=== PATIENT | female | born 1985 | race Caucasian/White ===

== ENCOUNTER → 2018-01-13 13:14 | Outpatient (CLI) | payer MEDICARE, SELFPAY ==
[2017-12-29 16:06] VITALS: BP 113/81
[2017-12-29 16:10] VITALS: BMI 40.8
--- NOTE | 2018-01-13 13:23 | MRI_ITS ---
STUDY: MRI ORBITS WITH AND WITHOUT CONTRAST REASON FOR EXAM: Female, 32 years old. Abcess behind left ear, history of ITD for cyst in that area on December 02, 2017 TECHNIQUE: Standardized fat and water weighted pulse sequences were obtained in all 3 orthogonal planes, pre-and post contrast administration. 10 ml of Gadavist contrast material was administered intravenously for the contrast portion of the examination. COMPARISON: None. FINDINGS: There is a skin lesion inferior and slightly posterior to the left ear measures approximately 1.5 x 1.4 cm shows increased signal on T2-weighted images and mild enhancement after contrast administration may represent a first brachial cleft sinus or sebaceous cyst. This lesion extends to the surface of the sternocleidomastoid muscle. The adjacent part of the parotid gland shows no abnormality. There is no significant enlargement of the cervical lymph nodes. Normal bilateral globes. Normal bilateral optic nerve sheath complexes and optic nerves. Normal bilateral intraconal and extraconal spaces. Normal bilateral extraocular muscles. Normal optic chiasm and post-chiasmatic tracts. Normal sella turcica, pituitary gland, infundibular stalk, and hypothalamus. Normal bilateral cavernous sinuses. Normal tectal plate and pineal gland. Normal flow voids within the major intracranial circulation suggesting patency by spin echo criteria. Normal size of the ventricles and extra-axial spaces for the patient's age. Normal white matter tracts of the supratentorial brain. Normal bilateral basal ganglia. Normal thalami. There is no extra-axial fluid accumulation. Normal midbrain, dana and medulla. Normal cerebellum. Normal basal cisterns. MRI/Orbit Face Neck W/WO Contrast IMPRESSION: There is a skin lesion inferior and slightly posterior to the left ear measures approximately 1.5 x 1.4 cm shows increased signal on T2-weighted images and mild enhancement after contrast administration may represent a first brachial cleft sinus or a sebaceous cyst. Electronically Signed: Osvaldo Paez MD at 7:56 EST Tel , Service support ,
== END ==
PROVIDERS: Family Provider Family Medicine; PCP Family Medicine; Visit Provider Surgery
DX: L02.11 Cutaneous abscess of neck (principal); S01.90XA Unspecified open wound of unspecified part of head, initial encounter; S11.90XA Unspecified open wound of unspecified part of neck, initial encounter
CPT/HCPCS: 70543; A9585

== ENCOUNTER 2018-01-16 12:01 | Emergency (ER) | payer MEDICARE, SELFPAY ==
[2018-01-16 12:02] VITALS: BP 145/101; PULSE 118; RESP 17; TEMP 35.7; O2SAT 99; BMI 40.7
[2018-01-16 12:18] VITALS: PULSE 104; RESP 12; O2SAT 99
[2018-01-16 12:22] VITALS: RESP 12; O2SAT 99
--- NOTE | 2018-01-16 12:30 | RAD_ITS ---
STUDY: X-RAY CHEST REASON FOR EXAM: Female, 32 years old. Elevated blood sugar levels. TECHNIQUE: Single AP portable view of the chest. COMPARISON: Comparison is made with prior study dated February 18, 2016. FINDINGS: EKG liquids are seen. The lungs are clear and expanded. There is no demonstrated pleural abnormality. Normal size heart. Normal mediastinum and true. Normal visualized pulmonary arteries. Normal visualized aortic arch and descending thoracic aorta. Normal visualized thoracic spine. Normal visualized ribs, clavicles, and shoulders. There is no demonstrated abnormality of the visualized soft tissue structures of the upper abdomen. RAD/Chest 1 View (Portable) IMPRESSION: Normal x-ray examination of the chest. Electronically Signed: Solis Martinez MD at 13:02 EST Tel [phone], Service support ,
--- NOTE | 2018-01-16 12:30 | EKG12_ITS ---
Test Reason : Blood Pressure : / mmHG Vent. Rate : 103 BPM Atrial Rate : 103 BPM P-R Int : 158 ms QRS Dur : 076 ms QT Int : 338 ms P-R-T Axes : 065 082 056 degrees QTc Int : 442 ms Sinus tachycardia Nonspecific ST abnormality Abnormal ECG Confirmed by JOSE DANIEL MARTE, JAZZY ([id number]), editorial intern FELISHA ARMSTRONG ([id number]) on 01/18/2018 1:57:58 PM Referred By: Phoenix Boswell Confirmed By:JAZZY SKY MD
--- NOTE | 2018-01-16 12:38 | CT_ITS ---
STUDY: CT BRAIN WITHOUT CONTRAST REASON FOR EXAM: Female, 32 years old. Headaches. Blurred vision. RADIATION DOSAGE (If Supplied By Facility): CTDIvol = ( 44.99 ) mGy, DLP = ( 779.24 ) mGycm TECHNIQUE: Transaxial CT imaging of the brain was performed without administration of intravenous contrast material. Individualized dose optimization techniques were used for this CT. COMPARISON: Comparison is made with prior study dated June 11, 2015. FINDINGS: Normal soft tissue structures. Normal calvarium. Normal size ventricles and extra-axial spaces for the patient's age. Normal white matter tracts of the cerebral hemispheres. Normal basal ganglia and thalami. Normal brainstem. Normal cerebellum. There is no intracranial hemorrhage. There are no findings of an acute ischemic infarction. Normal visualized paranasal sinuses. CT/Brain/Head without Contrast IMPRESSION: Normal unenhanced CT scan of the brain. Electronically Signed: Solis Martinez MD at 14:22 EST Tel [phone], Service support ,
--- NOTE | 2018-01-16 12:45 | ED.RN ---
IV therapy at bedside.
[2018-01-16 12:49] LABS: Bacteria 0 SEEN /hpf (None Seen); Mucous, Urine 0 SEEN /hpf (<or=2+); Red Blood Cells-Urine 0 SEEN /hpf (0-5); White Blood Cells 0 SEEN /hpf (0-5)
[2018-01-16 12:50] LABS: Color, Urine Yellow (Yellow); Glucose, Dipstick 1000 mg/dl (Normal); Ketone-Dipstick Negative (Negative); Leukocyte Esterase-Dipstick Negative /ul (Negative); Nitrite-Dipstick Negative (Negative); Occult Blood-Urine Negative /ul (Negative); Protein-Dipstick Negative (Negative); Specific Gravity, Urine 1.005 (1.002-1.030); Urine Bilirubin Dipstick Negative (Negative); Urine Clarity Clear (Clear); Urine Urobilinogen Normal (Normal)
[2018-01-16 12:58] LABS: Squamous Epithelial Cells - UA 0-5 SEEN /hpf (5-10)
[2018-01-16] MEDS: 0.9% Normal Saline 1,000 ML 1000 ML IV ×2 (13:43)
[2018-01-16] MEDS: Ondansetron 4 MG/2 ML Vial IV (13:43)
[2018-01-16 13:48] LABS: Absolute Lymphocyte Count 4.24 X10^3/ul (0.83-4.51); Absolute Neutrophil Count 7.2 X10^3/uL (2.0-7.7); Basophil# 0.07 X10^3/uL; Basophil% 0.6 % (0-1); Eosinophil# 0.18 X10^3/uL; Eosinophils% 1.4 % (0-5); Hematocrit 38.3 % (37-47); Hemoglobin 12.2 g/dl (12.0-15.0); Lymphocyte # 4.24 X10^3/ul (4.0); Mean Corp Hgb Conc 31.9 g/gl (32-36); Mean Corpuscular Hgb 29.6 pg (27.0-32.0); Mean Platelet Vol. 10.2 fl (6.2-12.0); Monocyte# 0.74 X10^3/uL; Monocyte% 5.9 % (0-10); Neutrophil # 7.19 X10^3/uL (2.7-7.7); Neutrophil % 57.7 % (47-70); Platelet Count 285 K/mm3 (150-450); RBC Distribution Width CV 14.9 % (11.6-14.6); RBC Distribution Width SD 50.6 fl (35.1-43.9); Red Blood Count 4.12 M/mm3 (4.2-5.4); White Blood Count 12.5 K/mm3 (4.4-11.0)
[2018-01-16 13:49] LABS: POSITIVE COUNT NO; POSITIVE DIFFERENTIAL NO; POSITIVE MORPHOLOGY NO
[2018-01-16 14:13] LABS: Anion Gap 11 (5-15); BUN 7 mg/dL (7-18); BUN/Creat Ratio 7.3 RATIO (10-20); Chloride 96 mmol/L (98-107); Creatinine, Serum 0.95 mg/dL (0.55-1.02); EST Glomerular Filtration Rate 72 mL/min (>60); Est Glom Filt Rate - Afr Amer 87 mL/min (>60); Estimated Creatinine Clearance 75.79 ml/min; Glucose 404 mg/dL (74-106); Potassium 4.4 mmol/L (3.5-5.1); Sodium Level 132 mmol/L (136-145)
[2018-01-16 14:14] LABS: Pregnancy, Serum, hCG Quali. NEGATIVE Negative (0-9 Nonpreg)
[2018-01-16 14:21] VITALS: BP 116/73; PULSE 90; RESP 16; O2SAT 97
[2018-01-16] MEDS: Acetaminophen 500 MG Tablet 1000 MG PO (14:27)
--- NOTE | 2018-01-16 15:18 | ED.VISSUMM ---
- ER Visit Summary Date of Service: 01/16/18 Chief Complaint: High blood sugar History of Present Illness: The patient is a [address] Staley. She reports that her blood sugars been elevated since October. States it typically runs 150-250. However, since October has been 300-400. It was in the 400s yesterday. She tried to check her blood sugar today and her meter only read high. She reports that she has been using sliding sliding scale NovoLog and 5 units of Lantus nightly. She saw Dr. Staley in the office today and had 2 units of NovoLog added to meals in addition to her sliding scale and had her evening Lantus increased from 5-10 units. She is also on metformin thousand milligrams twice daily and glipizide 50 mg daily. She complains of nausea without vomiting. No fever or abdominal pain. No dysuria or frequency. She reports that she has a headache that is 8 out of 10 severity. She has had blurred vision and photophobia with this. She denies having had similar symptoms previously. Physical Examination: Vitals: Stable. Afebrile. General: Well-nourished and well-developed. Head: Normocephalic atraumatic. Neck: Supple, no lymphadenopathy. No JVD. Nontender. Cardiovascular: Regular rate and rhythm. No murmurs. Respiratory: No respiratory distress. Clear to auscultation bilaterally. Abdominal: Soft, nontender, nondistended, normal bowel sounds. No guarding, rebound, or peritoneal signs. Back: Nontender. Extremities: Nontender, no edema. Skin: Normal color, no rash. Neurologic: Alert and oriented ?3. Cranial nerves II through XII are intact. Normal strength and sensation. Psych: Normal affect. Test Results: EKG is sinus tach at [address] changes. Troponin is negative. test is negative. Serum ketones are negative. Hemoglobin A1c is 11. UA is normal. Chem-7 is marked for sodium 132, chloride 96, glucose of 404. CBC is marked for white count of 12.5. Chest x-ray is normal. CT brain is negative. Emergency Department Course and Treatment: Patient is treated with morphine, Zofran IV. She is given Tylenol p.o. She is refused an LP. Treatment Plan: Dr. Staley sent in reports on the patient and it is clear that she has been noncompliant with her medications in the past. Feel though that is at least part of the issue today. She will be discharged instructions to follow-up with him in 1-2 days if her sugars not more controlled on the new regimen. Return to the emergency department for any worsening symptoms. Disposition: To home in improved and stable condition. Impression: 1. Hyperglycemia with bin-puziwbb-[id number] diabetes mellitus. 2. Medication noncompliance. 3. Cephalgia. This note was generated with [employer] dictation software. It may contain incorrect words, spelling, and punctuation that were not noted in review of the chart prior to signing ED Disposition - Plan for ED Patient: Disposition: Home or Assisted Living Chief Complaint: Hyperglycemia Instructions: ED Hyperglycemia Diabetic Referrals: Aj Staley MD [Primary Care Provider] - 3-5 Days if not improving
[2018-01-16 15:22] VITALS: BP 111/82; PULSE 96; RESP 14; O2SAT 96
[2018-01-16] MEDS: Ibuprofen 600 MG Tablet PO (15:28)
[2018-01-16 15:30] VITALS: PULSE 91; RESP 18; O2SAT 96
== END 2018-01-16 15:31 | disposition home or self-care (01) ==
LOC: ED 12:36
PROVIDERS: Emergency Provider Emergency Medicine; Family Provider Family Medicine; PCP Family Medicine
DX: E11.65 Type 2 diabetes mellitus with hyperglycemia (principal); Z91.14 Patient's other noncompliance with medication regimen; R51 Headache; J45.909 Unspecified asthma, uncomplicated; M54.9 Dorsalgia, unspecified; G89.29 Other chronic pain; F31.9 Bipolar disorder, unspecified; L73.2 Hidradenitis suppurativa; Z86.39 Personal history of other endocrine, nutritional and metabolic disease; F17.200 Nicotine dependence, unspecified, uncomplicated; Z79.84 Long term (current) use of oral hypoglycemic drugs; Z79.4 Long term (current) use of insulin; Z79.899 Other long term (current) drug therapy
CPT/HCPCS: 70450; 71045; 80048; 81001; 82009; 83036; 84484; 84703; 85025; 93005; 96361; 96374; 96375; 99284; J7030; A4216; J2405

== ENCOUNTER → 2018-05-09 10:43 | Outpatient (CLI) | payer MEDICARE, SELFPAY ==
--- NOTE | 2018-05-09 10:46 | RAD_ITS ---
STUDY: X-RAY - CERVICAL SPINE REASON FOR EXAM: Female, 32 years old. Neck pain, hand pain and numbness TECHNIQUE: 7 view(s) of the cervical spine were obtained. COMPARISON: Prior study of 05/28/2015 FINDINGS: Normal anterior atlantoaxial articulation. Normal odontoid process. Normal cervical lordosis. Normal vertebral bodies and endplates. Normal disc space heights. Normal visualized intervertebral neuroforamina. The soft tissue structures are unremarkable. RAD/Cerv Spine 4 or 5 Views IMPRESSION: Normal x-ray examination of the visualized cervical spine. Electronically Signed: Roly Candelario MD at 16:50 EDT , Service support ,
== END ==
PROVIDERS: Family Provider Family Medicine; PCP Family Medicine; Visit Provider Surgery
DX: M54.2 Cervicalgia (principal); G89.29 Other chronic pain
CPT/HCPCS: 72050

== ENCOUNTER 2018-05-20 12:00 | Observation (INO) | payer MEDICARE, SELFPAY ==
--- NOTE | 2018-05-16 16:08 | EKG12_ITS ---
Test Reason : PRE OP Blood Pressure : / mmHG Vent. Rate : 100 BPM Atrial Rate : 100 BPM P-R Int : 162 ms QRS Dur : 082 ms QT Int : 370 ms P-R-T Axes : 073 090 056 degrees QTc Int : 477 ms Normal sinus rhythm Possible Left atrial enlargement Rightward axis Borderline ECG Confirmed by JOSE DANIEL MARTE, JAZZY ([id number]), telegraph editor PRETTY KIM ([id number]) on 05/19/2018 9:48:00 AM Referred By: Phoenix Boswell Confirmed By:JZAZY SKY MD
[2018-05-16 17:09] LABS: Hematocrit 36.1 % (37-47); Hemoglobin 11.8 g/dl (12.0-15.0); Mean Corp Hgb Conc 32.7 g/gl (32-36); Mean Corpuscular Hgb 30.6 pg (27.0-32.0); Mean Corpuscular Volume 93.8 fL (81-99); Mean Platelet Vol. 10.3 fl (6.2-12.0); Platelet Count 349 K/mm3 (150-450); RBC Distribution Width CV 14.8 % (11.6-14.6); RBC Distribution Width SD 49.3 fl (35.1-43.9); Red Blood Count 3.85 M/mm3 (4.2-5.4)
[2018-05-16 17:15] LABS: Scan Indicated on CBC? Y/N NO
[2018-05-16 17:39] LABS: Hemoglobin A1c 8.8 % (4.2-6.3)
[2018-05-16 17:44] LABS: Anion Gap 12 (5-15); BUN 5 mg/dL (7-18); BUN/Creat Ratio 4.6 RATIO (10-20); Calcium,Total 8.7 mg/dL (8.5-10.1); Chloride 105 mmol/L (98-107); Creatinine, Serum 1.08 mg/dL (0.55-1.02); EST Glomerular Filtration Rate 62 mL/min (>60); Est Glom Filt Rate - Afr Amer 75 mL/min (>60); Glucose 264 mg/dL (74-106); Potassium 3.8 mmol/L (3.5-5.1); Sodium Level 138 mmol/L (136-145)
--- NOTE | 2018-05-18 18:37 | PCM.HP.BLA ---
History and Physical Date of Admission: 05/19/18 HISTORY OF PRESENT ILLNESS 32 year old woman presents with increasing redness and pain and swelling on her posterior neck and occipital scalp area. She has had hidradenitis in this area in the past that was excised and skin grafted in 2013. She states she has pain with movement of her neck. She denies any fever. She denies any trauma. She denies any drainage. She has a history of chronic neck pain and her neck xray was normal. She also has persistent numbness in her thumb and index finger bilaterally. After her neck hidradenitis is treated, will proceed with NCV studies to evaluate for carpal tunnel syndrome. She presents at this time for further evaluation and treatment. PAST MEDICAL HISTORY: 1. Arthritis. 2. Asthma. 3. Back pain. 4. Alcohol abuse. 5. Drug abuse. 6. Frequent headaches. 7. Hay fever. 8. Hypertension. 9. Kidney problems. 10. Bipolar disorder. 11. Persistent cough. 12. Sinus problems. 13. Tonsillitis. 14. Left inguinal hidradenitis. 15. Right axillary hidradenitis. 16. Posterior neck hidradenitis. 17. Diabetes mellitus. 18. Right breast abscess. 19. Left breast abscess. 20. Non-healing diabetic ulcer, dorsal medial aspect, right foot. 21. Left axillary hidradenitis. 22. Non-healing diabetic ulcer, right medial leg. 23. Sternal chest wall abscess wound. 24. Abscess, right medial breast. 25. Cat scratch infection abscess dorsum right hand with extension to long finger. 26. Inflammatory extensor tenosynovitis dorsum right hand with extension to long finger. 27. Cat scratch infection abscess dorsum left hand at proximal index finger. 28. Inflammatory extensor tenosynovitis dorsum left hand at proximal index finger. 29. Smoker. PAST SURGICAL HISTORY: 1. Tonsillectomy. 2. . 3. [place] teeth removal. 4. Incision and drainage of inguinal hidradenitis. 5. Incision and drainage of axillary hidradenitis. 6. Excision of left inguinal hidradenitis and placement of wound VAC (21cm2) on February 05, 2009. 7. Excision of right axillary hidradenitis and placement of wound VAC (36cm2) on December 08, 2009. 8. Excisional debridement of hidradenitis, posterior neck (33 cm2) on April 25, 2014. 9. Excisional debridement of non-healing hidradenitis wound, posterior neck, with 10 cm secondary wound closure on May 15, 2014. 10. Incision and drainage and excisional debridement of non-healing postop infected hidradenitis ulcer, posterior neck (20cm 2), and debridement of partial-thickness, right superior-posterior neck (16cm 2) on June 26, 2014. 11. Incision and drainage, right breast abscess, September 17, 2014. 12. Incision and drainage of left breast abscess, October 11, 2014. 13. Surgical preparation, left axilla with excision of hidradenitis (88cm2) and surgical preparation, right medial leg, with excision of non-healing diabetic ulcer, right medial leg, and 4 cm complex secondary wound closure on January 20, 2016. 14. Excision debridement of left axillary hidradenitis wound with full-thickness skin graft reconstruction from the right lateral abdominal wall (5cm2) and placement of NPWT on February 12, 2016. 15. Surgical preparation, sternum chest wall wound, with excision and drainage of abscess and excisional debridement (14cm2) on March 05, 2016. 16. Closure of sternum chest wall open abscess wound with rhomboid transposition skin flap reconstruction (24.5cm 2). 17. Surgical preparation, right medial breast, with incision and drainage of abscess and excisional debridement (28cm2) on March 11, 2016. 18. surgical preparation right axilla with excision hidradenitis (48 cm2) - 02/03/17 19. surgical preparation dorsum right hand with extension to long finger with incision and drainage and excisional debridement cat scratch infection (4 cm2) and incision and drainage tendon sheath for extensor tenosynovitis dorsum right hand with extension to long finger and surgical preparation dorsum left hand at proximal index finger with incision and drainage and excisional debridement cat scratch infection (2 cm2) and incision and drainage tendon sheath for extensor tenosynovitis dorsum left hand at proximal index finger - 03/22/17 20. Surgical preparation dorsum left hand at proximal index finger with excisional debridement cat scratch infection ulcer with proximal and distal advancement skin flaps reconstruction - 05/20/17 21. I&D abscess left postauricular area - 12/02/17 MEDICATIONS: Buspirone, Clonidine, Duloxetine, Neurontin, Glipizide, Insulin, [place], [place], Meloxicam, Metformin, Norgestrel Ethinyl Estradiol, Omeprazole, Quetiapine, Spironolactone, Tizanidine. ALLERGIES: None. SOCIAL HISTORY: The patient smokes. The patient does not drink alcohol. She does have a history of drug abuse and alcohol abuse. FAMILY HISTORY: Negative for skin cancer. Positive for lung disease, hypertension, asthma, thyroid disease, heart disease, kidney disease, seizures, cancer, and diabetes. REVIEW OF SYSTEMS: GENERAL: Complains of fatigue. Denies fever and weight loss. Has history of alcohol abuse and drug abuse. EYES: Denies eye pain. ENT: Denies nasal congestion and sore throat. CARDIOVASCULAR: Has fatigue. Denies chest pain, lightheadedness, and shortness of breath with exertion. RESPIRATORY: Complains of cough and shortness of breath. The patient is a smoker. Does have asthma. GI: Denies nausea, vomiting, diarrhea, or constipation. : Denies hematuria and urinary frequency. MUSCULOSKELETAL: Complains of joint pain, back pain, and arthritis. Denies stiffness, muscle weakness, and gout. Has symptoms of bilateral carpal tunnel syndrome with numbness in thumb and index fingers. INTEGUMENTARY: Denies skin cancer. Has recurrent hidradenitis posterior neck and occipital scalp. Had recent flare-up of right axillary hidradenitis that required surgical excision on 02/03/17. Had recent I&D of left postauricular abscess on 12/02/17. Has new onset folliculitis left occipital hairline. NEURO: Denies headaches. Denies poor balance and weakness. PSYCH: Denies anxiety and depression. Has bipolar disorder. ENDOCRINE: Denies excessive thirst or urination. Has diabetes mellitus. HEMATOLOGIC: Denies abnormal bruising and fevers. PHYSICAL EXAMINATION: HEENT: Pupils equal, round, and reactive to light. Extraocular muscles intact. Throat is clear. In the left post-auricular area was an open surgical wound after I&D of abscess that has healed. No further evidence of infection at this time. NECK: Supple. No bony tenderness. Has an area of redness, tenderness, and swelling in the posterior neck and occipital scalp. Located just superior to previous excision of hidradenitis and skin grafting. Measures 4 cm. No purulent drainage. No cervical adenopathy. LUNGS: Clear to auscultation. HEART: Regular rate and rhythm. ABDOMEN: Soft and nontender. Right lateral abdominal wall donor incision is healing well. BREASTS: Breasts are soft. No masses palpable. No evidence of recurrent infection. No axillary adenopathy. EXTREMITIES: No clubbing, cyanosis, or edema. On the left axillary area is a healed skin graft. In the right axilla is a healed ulcer. No axillary adenopathy noted bilaterally. On the right hand there is decreased sensation to pinprick to thumb and index finger. No thenar muscle atrophy. Positive Tinel's sign. Positive Phalen's sign. Fingers are warm with good capillary refill. On the left hand there is decreased sensation to pinprick to thumb and index finger. No thenar muscle atrophy. Positive Tinel's sign. Positive Phalen's sign. Fingers are warm with good capillary refill. Radial pulses are palpable. No elbow tenderness. Negative Tinel's at the elbow. NEURO: Cranial nerves II through XII grossly intact. Some paresthesias in the thumb and index finger bilaterally. ASSESSMENT 1. 4 cm recurrent hidradenitis abscess posterior neck and occipital scalp. 2. Bilateral carpal tunnel syndrome, worse on the left. 3. Chronic neck pain. 4. Smoker. 5. Diabetes mellitus. PLAN: Will start her on Cleocin and Diflucan. She needs operative incision and drainage of this recurrent infection with excision of the residual hidradenitis. Will leave the wound open initially and pack with Silver dressing changes daily. Tissue will be sent to Pathology for analysis to rule out carcinoma and to Microbiology for culture. A positive culture will necessitate antibiotic therapy. Will schedule the surgery for next week to be done on under general anesthesia with a surgical observation overnight stay in the hospital. Her neck Xray was reviewed and was normal. Will eventually need NCV and EMG studies to assess for carpal tunnel. Will schedule those studies after her hidradenitis neck surgery has healed. Patient was informed of the risks and complications of the procedure including alternatives to surgery. These were discussed with the patient personally. Patient voices understanding and wishes to proceed. Some of the risks and complications were included in a form from the [employer] [employer]. Encouraged the patient to stop smoking as it may have deleterious effects on wound healing.
[2018-05-19] VITALS (14 sets, daily range): BP systolic 105–143; BP diastolic 53–105; PULSE 75–107; RESP 16–20; TEMP 36.2–37.2; O2SAT 88–99; BMI 38.5
--- NOTE | 2018-05-19 | HID_PTH ---
PATIENT: ROGER HOOD LOC: [facility] U#:[id number] AGE/SX: 32/F ROOM: [facility]317 RE05/20/[address]: Dr. Phoenix Boswell MD : 1985 BED: 1 DIS: 05/21/2018 SPEC #: [id number] RECD: 05/19/18 13:26 STATUS: MAYI REGarrett #: [id number] RADHAMES: 05/19/18 00:[address]: Phoenix Boswell DEPT: SURGICAL PATHOLOGY RECD BY: Margarito Aguilera ENTERED: 05/19/18 13:26 SP TYPE: Hidradenit OTHR DR: MD Dr. Aj Castro MD Tissues: Neck, NOS Procedures: Surgery Specimen Level III HEADER OPERATION: Surgical preparation posterior neck with incision and drainage PRE-OP DIAGNOSIS: Recurrent hidradenitis (4cm) posterior neck and occipital scalp TISSUE SUBMITTED: Posterior neck hidradenitis abscess MICROSCOPIC DIAGNOSIS Posterior neck hidradenitis abscess: Skin with underlying tissue with focal ulceration associated with acute inflammation. Focal bacterial colonization. Special stains for fungi is negative for organisms; matched control is appropriate. See comment. PATSY:carmelita 05/22/18 COMMENT Skeletal muscle tissue is also noted in the deeper portion of the specimen. MICROSCOPIC DESCRIPTION Slides are reviewed. GROSS DESCRIPTION Received in fixative is one container labeled with the patient's name and designated posterior neck hidradenitis. The specimen consists of rectangular piece of jean-whitish skin with underlying tissue measuring 9 x 3 cm and up to 2 cm in thickness. A piece of possible skeletal muscle tissue is also noted at the deep margin of the specimen. Sections did not reveal an obvious mass lesion. Senior Clinical [employer] Programmer sections are submitted in 3 cassettes. PATSY:carmelita 05/19/18 TC:2 CPT: 94367, 38110
[2018-05-19 07:05] LABS: Internal QC Validated? YES +Cl - CLEAR BKGD
[2018-05-19 07:06] LABS: Pregnancy, Urine Negative Negative
[2018-05-19 07:31] LABS: Bedside Glucose 208 mg/dL (70-110)
--- NOTE | 2018-05-19 09:11 | PCM.IMDPSTOP ---
Immediate Post-Op Note Date of Procedure: 05/19/18 Primary Surgeon/Physician: Phoenix Boswell document control manager: None Pre-Operative Diagnosis: 1. 4 cm recurrent hidradenitis abscess posterior neck and occipital scalp. 2. Chronic neck pain. 3. Smoker. 4. Diabetes mellitus. Post-Operative Diagnosis: Same. Surgery/Procedure Performed:: Surgical preparation posterior neck/occipital scalp with incision and drainage and excisional debridement recurrent hidradenitis abscess (31.5 cm2). Description of Surgical Findings:: 32 year old woman presents with increasing redness and pain and swelling on her posterior neck and occipital scalp area. She has had hidradenitis in this area in the past that was excised and skin grafted in 2013. She states she has pain with movement of her neck. She denies any fever. She denies any trauma. She denies any drainage. She has a history of chronic neck pain and her neck xray was normal. She also has persistent numbness in her thumb and index finger bilaterally. After her neck hidradenitis is treated, will proceed with NCV studies to evaluate for carpal tunnel syndrome. Today the patient underwent surgical preparation posterior neck/occipital scalp with incision and drainage and excisional debridement recurrent hidradenitis abscess (31.5 cm2). Size of defect posterior neck/occipital scalp - 9 x 3.5 x 2 cm. Estimated Blood Loss: 25 ml. Specimen's removed: 1. Recurrent hidradenitis abscess posterior neck/occipital scalp to Pathology and Microbiology. 2. MRSA Wound DNA by PCR. Drains: None. Type of Anesthesia:: General - Admit VTE Documentation VTE Present on Admission: No VTE Mechan Device Prophylaxis: SCD's VTE Pharm Prophylaxis ordered?: No
--- NOTE | 2018-05-19 09:14 | OP.PN_ITS ---
Immediate Post-Op Note Date of Procedure: 05/19/18 Primary Surgeon/Physician: Phoenix Boswell v belt finisher: None Pre-Operative Diagnosis: 1. 4 cm recurrent hidradenitis abscess posterior neck and occipital scalp. 2. Chronic neck pain. 3. Smoker. 4. Diabetes mellitus. Post-Operative Diagnosis: Same. Surgery/Procedure Performed:: Surgical preparation posterior neck/occipital scalp with incision and drainage and excisional debridement recurrent hidradenitis abscess (31.5 cm2). Description of Surgical Findings:: 32 year old woman presents with increasing redness and pain and swelling on her posterior neck and occipital scalp area. She has had hidradenitis in this area in the past that was excised and skin grafted in 2013. She states she has pain with movement of her neck. She denies any fever. She denies any trauma. She denies any drainage. She has a history of chronic neck pain and her neck xray was normal. She also has persistent numbness in her thumb and index finger bilaterally. After her neck hidradenitis is treated, will proceed with NCV studies to evaluate for carpal tunnel syndrome. Today the patient underwent surgical preparation posterior neck/occipital scalp with incision and drainage and excisional debridement recurrent hidradenitis abscess (31.5 cm2). Size of defect posterior neck/occipital scalp - 9 x 3.5 x 2 cm. Estimated Blood Loss: 25 ml. Specimen's removed: 1. Recurrent hidradenitis abscess posterior neck/occipital scalp to Pathology and Microbiology. 2. MRSA Wound DNA by PCR. Drains: None. Type of Anesthesia:: General - Admit VTE Documentation VTE Present on Admission: No VTE Mechan Device Prophylaxis: SCD's VTE Pharm Prophylaxis ordered?: No
[2018-05-19 09:25] LABS: Bedside Glucose 239 mg/dL (70-110)
[2018-05-19] MEDS: Insulin Lispro 100 UNIT/ML INSULN.PEN 6 UNIT SC (09:57)
[2018-05-19] MEDS: Lactated Ringers 1,000 ML 60 ML IV ×2 (10:50→20:10)
[2018-05-19 12:06] LABS: M R Staph aureus DNA By PCR Negative (Negative); Probe Check PASS; Specimen Processing Control PASS; Staph aureus DNA By PCR NEGATIVE (Negative)
[2018-05-19] MEDS: 0.9% NaCl Peripheral Flush Adult/Peds IV ×2 (12:34→14:27)
[2018-05-19] MEDS: HYDROmorphone 1 MG/ML Syringe IV ×4 (12:34→19:58)
[2018-05-19] MEDS: tiZANidine HCl 2 MG Tablet 4 MG PO ×4 (12:39→22:16)
[2018-05-19] MEDS: Pantoprazole Sodium 20 MG Tablet PO (12:39)
[2018-05-19] MEDS: Spironolactone 50 MG Tablet 100 MG PO (12:40)
[2018-05-19] MEDS: Gabapentin 300 MG Capsule PO ×3 (12:40→22:18)
[2018-05-19] MEDS: cloNIDine HCl 0.1 MG Tablet PO (12:40)
[2018-05-19] MEDS: Lithium Carbonate 300mg Capsule 300 MG PO ×2 (12:40→22:17)
[2018-05-19] MEDS: Meloxicam 7.5 MG Tablet PO (12:40)
[2018-05-19] MEDS: DULoxetine Hcl 30 MG Capsule 90 MG PO (12:40)
[2018-05-19] MEDS: Glucerna Shake 120 ML LIQUID PO ×2 (12:40→16:22)
[2018-05-19] MEDS: Fluconazole 100 MG Tablet PO (12:40)
[2018-05-19] MEDS: Docusate Sodium 100 MG Capsule PO ×2 (12:40→22:17)
--- NOTE | 2018-05-19 12:44 | PCM.CONS.GEN ---
Problem List (1) Hidradenitis suppurativa Status: Chronic Comment: 4 cm recurrent hidradenitis posterior neck and occipital scalp (2) Bilateral carpal tunnel syndrome Status: Chronic Comment: worse on left (3) Diabetes mellitus type 2, uncontrolled Status: Acute Qualifiers: Diabetes mellitus manager terminal insulin use: without fci use Diabetes mellitus complication status: without complication Qualified Code(s): E11.65 - Type 2 diabetes mellitus with hyperglycemia (4) Morbid obesity Status: Chronic (5) Bipolar affective Status: Chronic (6) Chronic back pain Status: Chronic Reason for Consult Date of Consultation: 05/19/18 Reason for Consultation: Postoperative medical management. History of Present Illness: The patient is a 32 year old F with past medical history as mentioned above admitted today after she underwent incision, drainage and excisional debridement for recurrent hidradenitis/abscess of the posterior neck and occipital scalp and I am seeing this patient for postoperative medical management. This patient had a history of recurrent hydradenitis of multiple locations in her body status post multiple incision and drainage procedures most recently was today. At this time, she complains of neck pain which is dull aching pain, 8 out of 10 in severity, not radiating, slightly worsened upon movement of her neck, no relieving factors and no other associated symptoms. She denies fever chills. She does have history of type 2 diabetes mellitus which seemed to be uncontrolled. She mentioned that her blood sugars usually in the 300s. According to the patient, most recent hemoglobin A1c was back in for glucometer 17 and it was 11. Most recent hemoglobin A1c was few days ago and it was 8.8. She has a history of chronic pain syndrome and she has been on Neurontin and meloxicam. She had a history of anxiety and bipolar disorder and she has been on Cymbalta, Catapres and Seroquel. At this time, her vital signs are stable. Preoperative routine blood work reviewed, revealed mild leukocytosis and chronic anemia with stable hemoglobin. Her MRSA screen PCR was negative. At this time, she is on IV clindamycin and oral fluconazole. Past Medical History Past Medical History (Chronic Problems): Chronic Problems (Last Updated 02/14/18 @ 14:17 by Shreya Rondon) Hidradenitis suppurativa (Chronic) 4 cm recurrent hidradenitis posterior neck and occipital scalp Bilateral carpal tunnel syndrome (Chronic) worse on left Chronic neck pain (Chronic) Branchial cleft sinus (Chronic) History of incision and drainage (Chronic) Left side of neck 12/02/17, RIGHT BREAST ABSCESS 09/17/2014, LEFT BREAST ABSCESS 10/11/2014, INGUINAL HYDRADENITIS, AXILLARY HYDRADENITIS Diabetes (Chronic) type 2 Dx : 2012 Last exacerbation : DKA : never Hypoglycemic episode : never ER visit : 01/08 - 500+ Hydradenitis (Chronic) hidradenitis left axilla - L73.2 Morbid obesity (Chronic) Bipolar affective (Chronic) Osteoarthritis (Chronic) Chronic back pain (Chronic) Diabetic leg ulcer (Chronic) nonhealing diabetic ulcer right medial leg - E11.622 Non-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 fat layer exposed (Chronic) diabetic ulcer right medial leg - L97.912 Smoker (Chronic) 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 H/O hidradenitis suppurativa (Chronic) Z87.2 Medical History: Medical History (Last Updated 02/14/18 @ 14:17 by Shreya Rondon) Cat scratch of left hand with infection (Acute) S60.512A, L08.9, W55.03XA cat scratch infection dorsum left hand at proximal index finger Cat scratch of right hand with infection (Acute) S60.511A, L08.9, W55.03XA cat scratch infection dorsum right hand with extension to long finger Cat scratch (Acute) W55.03XA cat scratch infection dorsum right hand with extension to long finger cat scratch infection dorsum left hand at proximal index finger Diabetes (Chronic) E11.9 type 2 Dx : 2012 Last exacerbation : DKA : never Hypoglycemic episode : never ER visit : 01/08 - 500+ Hydradenitis (Chronic) L73.2 hidradenitis left axilla - L73.2 Morbid obesity (Chronic) E66.01 Bipolar affective (Chronic) F31.9 Osteoarthritis (Chronic) Chronic back pain (Chronic) M54.9, G89.29 Diabetic leg ulcer (Chronic) E11.622, L97.909 nonhealing diabetic ulcer right medial leg - E11.622 Non-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 fat layer exposed (Chronic) L97.912 diabetic ulcer right medial leg - L97.912 Smoker (Chronic) F17.200 F17.200 Open wound of left axillary region (Acute) S41.102A open surgical hidradenitis wound left axilla - S41.102A 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 compromised skin graft left axilla Abscess of sternal region (Acute) L02.213 L02.213 Sternal chest wall wound abscess Open wound of chest wall, complicated (Acute) S21.109A S21.109D open chest wall sternal wound H/O hidradenitis suppurativa (Chronic) Z87.2 Z87.2 Abscess of breast (Acute) N61.1 abscess right medial breast Alcohol abuse F10.10 Anxiety and depression F41.9, F32.9 Asthma J45.909 Back problem M53.9 Drug abuse F19.10 Frequent headaches R51 GERD (gastroesophageal reflux disease) K21.9 Hay fever J30.1 Hearing problem H91.90 Hidradenitis L73.2 LEFT INGUINAL, RIGHT AXILLARY, POSTERIOR NECK, High triglycerides E78.1 Hyperlipidemia E78.5 Kidney problem N28.9 Neuropathy G62.9 Non-healing surgical wound T81.89XA NON HEALING HIDRADENITIS WOUND POSTERIOR NECK. NON HEALING INFECTED HIDRADENITIS ULCER POSTERIOR NECK Osteoarthritis M19.90 Partial thickness burn SUPEROPOSTERIOR NECK Recurrent UTI N39.0 Sinus problem J34.9 Vision problem H54.7 HTN (hypertension) I10 Allergies lamotrigine [From Lamictal] Allergy (Mild, Verified 05/10/18 15:29) Rash adhesive tape Allergy (Verified 05/10/18 15:29) Rash Home Medications: Ambulatory Orders Medication Instructions Recorded Buspirone HCl [Buspar] 20 mg PO TID 01/18/14 Clonidine HCl [Catapres] 0.1 mg PO DAILY 01/18/14 Duloxetine Hcl [Cymbalta] 90 mg PO DAILY 01/18/14 Metformin HCl [Glucophage] 1,000 mg PO BIDCM 01/18/14 Tizanidine HCl [Zanaflex] 4 mg PO 4X/DAY 01/18/14 glipiZIDE [Glucotrol] 15 mg PO DAILY@0730 01/18/14 Quetiapine Fumarate [Seroquel XR] 800 mg PO QHS 04/25/14 Meloxicam [Mobic] 7.5 mg PO DAILY 01/14/16 Spironolactone [Aldactone] 100 mg PO DAILY 01/14/16 Norgestrel-Ethinyl Estradiol 1 tab PO DAILY 01/20/16 [Cryselle-28 Tablet] Faith Carbonate [Faith 300 mg PO BID 05/10/16 Carbonate ER] gabapentin 300 mg capsule 300 mg PO 4X/DAY cap 12/01/17 Lubiprostone [Amitiza] 24 mcg PO BID 01/16/18 Omeprazole [Prilosec] 20 mg PO DAILY 01/16/18 insulin aspart U-100 100 unit/mL See Label Instructions SC TID ml 02/14/18 subcutaneous solution insulin glargine (U-100) 100 10 unit SC QHS 02/14/18 unit/mL subcutaneous solution clindamycin HCl 300 mg capsule 300 mg PO TID #42 cap 05/10/18 fluconazole 100 mg tablet 100 mg PO QDAY #14 tab 05/10/18 Surgical History: Surgical History (Last Updated 03/07/18 @ 23:20 by Phoenix Boswell MD) History of incision and drainage (Chronic) Z98.890 Left side of neck 12/02/17, RIGHT BREAST ABSCESS 09/17/2014, LEFT BREAST ABSCESS 10/11/2014, INGUINAL HYDRADENITIS, AXILLARY HYDRADENITIS History of section (Acute) Z98.891 History of tonsillectomy (Acute) Z98.890, Z90.89 Hidradenitis L73.2 EXCISION LEFT INGUINAL HIDRADENITIS AND PLACEMENT OF WOUND VAC (121 CM2) 02/05/2009, EXCISION RIGHT AXILLARY HIDRADENITIS AND PLACEMENT OF WOUND VAC (36 CM2) 12/08/2009, EXCISIONAL DEBRIDEMENT HIDRADENITIS POSTERIOR NECK (33 CM2) 04/25/2014, EXCISIONAL DEBRIDEMENT NONHEALING HIDRADENITIS WOUND POSTERIOR NECK WITH 10 CM SECONDARY WOUND CLOSURE 05/15/2014,INCISION AND DRAINAGE AND EXCISIONAL DEBRIDEMENT NONHEALING POSTOP INFECTED HIDRADENITIS ULCER POSTERIOR NECK (20 CM2) AND DEBRIDEMENT PARTIAL THICKNESS BURN SUPEROPOSTERIOR NECK(16 CM2) 06/26/2014, SURGICAL PREPARATION, LEFT AXILLA WITH EXCISION HIDRADENITIS (88 SQ CM) AND SURGICAL PREPARATION, RIGHT MEDIAL LEG WITH EXCISON NONHEALING DIABETIC ULCER RIGHT MEDIAL LEG AND 4 CM COMPLEX SECONDARY WOUND CLOSURE 01/20/2016, EXCISIONAL DEBRIDEMENT LEFT AXILLARY HIDRADENITIS WOUND WITH FTSG RECONSTRUCTION FROM THE RIGHT LATERAL ABDOMINAL WALL (55 CM2) AND PLACEMENT OF NPWT 02/12/2016, SURGICAL PREPARATION STERNUM CHEST WALL WOUND WITH INCISION AND DRAINAGE ABSCESS AND EXCISIONAL DEBRIDEMENT (14 CM2) 03/05/2016, CLOSURE STERNUM CHEST WALL OPEN ABSCESS WOUND WITH RHOMBOID TRANSPOSITION SKIN FLAP RECONSTRUCTION (24.5 CM2) AND SURGICAL PREPARATION RIGHT MEDIAL BREAST WITH INCISION AND DRAINAGE ABSCESS AND EXCISIONAL DEBRIDEMENT (28 CM2) 03/11/2016 [place] teeth removed K08.499 Surgical History: tonsillectomy, - - , wisdom teeth removal, incision and drainage of inguinal hidradenitis. Incision and drainage of axillary hidradenitis. Excision left inguinal hidradenitis in 01/27. Excision right axillary hidradenitis in 11/30. Excisional debridement hidradenitis posterior neck on 04/25/14. Excisional debridement nonhealing hidradenitis wound posterior neck with secondary wound closure on 05/15/14. Incision and drainage and excisional debridement nonhealing postop infected hidradenitis ulcer posterior neck and debridement partial thickness burn superoposterior neck on 06/26/14. Psychiatric History: Anxiety, Bipolar Smoking Status: Current every day smoker Tobacco Use: Cigarettes Alcohol: None Drugs: None - *Family History Maternal Family History: Family History (Last Reviewed 02/14/18 @ 14:01 by Shreya Rondon) Grandmother Thyroid disorder Father Diabetes Heart disease Hypertension High cholesterol Mother Heart disease Hypertension High cholesterol History Items: Heart Disease, Hypertension, - Paternal Family History: Family History (Last Reviewed 02/14/18 @ 14:01 by Shreya Rondon) Grandmother Thyroid disorder Father Diabetes Heart disease Hypertension High cholesterol Mother Heart disease Hypertension High cholesterol History Items: Diabetes, Heart Disease, Hypertension Review of Systems Constitutional: Denies: Anorexia, Chills, Fever, Weakness Eyes: Denies: Blurred vision, Double vision, Drainage, Redness HEENT: Denies: Difficulty Hearing, Ear Pain, Eye Pain, Nasal Congestion, Sore Throat Cardiovascular: Denies: Chest Pain, Chest Tightness, Edema, Light Headedness, Palpitations, Syncope Respiratory: Denies: Cough, Pleuritic Pain, Shortness of Breath, Sputum production, Wheezing Gastrointestinal: Reports: Nausea. Denies: Abdominal Pain, Constipation, Diarrhea, Vomiting Genitourinary: Denies: Dysuria, Frequency, Hematuria Musculoskeletal: Reports: Neck Pain. Denies: Arm Pain, Back Pain, Foot Pain Skin: Denies: Dryness, Rash Neurological: Denies: Balance problems, Double vision, Change in Speech, Slurred speech, Confusion, Headaches, Numbness, Tingling Psychiatric: Reports: Anxiety. Denies: Depression Endocrine: Denies: Change in Body Habitus, Polydipsia - Physical Exam General: Alert, Oriented x3, Cooperative, No apparent distress HEENT: PERRLA, EOMI, Normocephalic Oral: Moist Mucosa, No Gingival or Mucosal Lesions/ Ulcerations Neck: Supple, No JVD, Negative Carotid Bruits, Trachea Midline, Thyroid Normal Size and Texture Lungs: Clear to auscultation, No rhonchi, No wheeze, No rales, Diminished Cardiovascular: Regular rate, Regular Rhythm, Normal S1, Normal S2, No murmurs Abdomen: Bowel Sounds Present, Soft, Non Tender, Non-Distended, No Hepato-splenomegaly Extremities: No clubbing, No cyanosis, No edema Skin: No rashes, Ulcer/ Wound Lymphatic: No Cervical, Supraclavicular, or Inguinal Adenopathy Neurological: Cranial nerves II-XII grossly intact, Motor Exam 5/5 strength throughout Psych/Mental Status: Normal Affect, Appropriate, Alert and oriented to time, place, person, mood and affect Vital Signs Temp Pulse Resp BP Pulse Ox 97.6 F L 76 16 111/53 L 88 05/19/18 11:09 05/19/18 11:24 05/19/18 11:09 05/19/18 11:09 05/19/18 11:09 Oxygen Flow Rate (L/min) 2 Oxygen Delivery Method Nasal Cannula Weight: 231 lb 11.293 oz Body Mass Index (BMI) 38.5 Finger Stick Blood Glucose 239 Intake and Output for Last 24 Hours 05/17/18 05/18/18 05/19/18 23:59 23:59 23:59 Intake Total 1200 / 1200 Balance 1200 / 1200 Laboratory Tests Past 24 Hrs 05/19/18 05/19/18 06:45 Unknown Urine Test Negative S.aureus Protein A PCR NEGATIVE MRSA (PCR) Negative POC Glucose 05/19/18 05/19/18 09:19 07:00 POC Glucose 239 H 208 H Assessment/Plan All Active Problems (Last Updated 02/14/18 @ 14:17 by Shreya Rondon) Folliculitis (Acute) Diabetes mellitus type 2, uncontrolled (Acute) Unspecified open wound of unspecified part of neck, subsequent encounter (Acute) Unspecified open wound of unspecified part of head, subsequent encounter (Acute) Open wound involving head with neck, complicated (Acute) Abscess of neck (Acute) History of section (Acute) History of tonsillectomy (Acute) Cat scratch of left hand with infection (Acute) Cat scratch of right hand with infection (Acute) Cat scratch (Acute) Open wound of left axillary region (Acute) Abscess of sternal region (Acute) Open wound of chest wall, complicated (Acute) Abscess of breast (Acute) This is a 32 years old female patient underwent elective incision, drainage and excisional debridement for recurrent hydradenitis/abscess of the posterior neck and occipital scalp and I am seeing this patient in consultation for postoperative medical management. #1 status post incision, drainage and excisional debridement of recurrent cellulitis of the posterior neck and occipital scalp: Postoperative day 1. She is on IV clindamycin and oral fluconazole. Her vital signs are stable, afebrile. She is on IV hydromorphone as needed for pain as well as IV fluids. MRSA screen was negative. Wound culture sent, pending. She has history of recurrent hidradenitis of multiple locations of her body status post multiple incision and drainage procedures. Dr. Boswell is managing. #2 uncontrolled type 2 diabetes mellitus: Patient mentioned that she has sugar has been in the range of 300s. Hemoglobin A1c was 8.8 years ago. Plan for ADA diet, continue home doses of insulin glargine, sliding scale, continue metformin and glipizide, Accu-Cheks q. before meals at bedtime. #3 chronic pain syndrome: Continue Neurontin and IV hydromorphone as needed as well as meloxicam. #4 anxiety/bipolar disorder: Continue clonidine, Cymbalta, lithium, Seroquel. #5 tobacco abuse: Start NicoDerm patch. #6 DVT prophylaxis: SCDs. This note was generated with [employer] software. It may contain incorrect words, spelling, and punctuation that were not noted in checking the note before signing. Code Visit Inpatient E&M: 67955 Init Hosp L2
--- NOTE | 2018-05-19 12:54 | CON.PCM_ITS ---
Problem List (1) Hidradenitis suppurativa Status: Chronic Comment: 4 cm recurrent hidradenitis posterior neck and occipital scalp (2) Bilateral carpal tunnel syndrome Status: Chronic Comment: worse on left (3) Diabetes mellitus type 2, uncontrolled Status: Acute Qualifiers: Diabetes mellitus watermelon inspector insulin use: without senior living use Diabetes mellitus complication status: without complication Qualified Code(s): E11.65 - Type 2 diabetes mellitus with hyperglycemia (4) Morbid obesity Status: Chronic (5) Bipolar affective Status: Chronic (6) Chronic back pain Status: Chronic Reason for Consult Date of Consultation: 05/19/18 Reason for Consultation: Postoperative medical management. History of Present Illness: The patient is a 32 year old F with past medical history as mentioned above admitted today after she underwent incision, drainage and excisional debridement for recurrent hidradenitis/abscess of the posterior neck and occipital scalp and I am seeing this patient for postoperative medical management. This patient had a history of recurrent hydradenitis of multiple locations in her body status post multiple incision and drainage procedures most recently was today. At this time, she complains of neck pain which is dull aching pain, 8 out of 10 in severity, not radiating, slightly worsened upon movement of her neck, no relieving factors and no other associated symptoms. She denies fever chills. She does have history of type 2 diabetes mellitus which seemed to be uncontrolled. She mentioned that her blood sugars usually in the 300s. According to the patient, most recent hemoglobin A1c was back in for glucometer 17 and it was 11. Most recent hemoglobin A1c was few days ago and it was 8.8. She has a history of chronic pain syndrome and she has been on Neurontin and meloxicam. She had a history of anxiety and bipolar disorder and she has been on Cymbalta, Catapres and Seroquel. At this time, her vital signs are stable. Preoperative routine blood work reviewed, revealed mild leukocytosis and chronic anemia with stable hemoglobin. Her MRSA screen PCR was negative. At this time, she is on IV clindamycin and oral fluconazole. Past Medical History Past Medical History (Chronic Problems): Chronic Problems (Last Updated 02/14/18 @ 14:17 by Shreya Rondon) Hidradenitis suppurativa (Chronic) 4 cm recurrent hidradenitis posterior neck and occipital scalp Bilateral carpal tunnel syndrome (Chronic) worse on left Chronic neck pain (Chronic) Branchial cleft sinus (Chronic) History of incision and drainage (Chronic) Left side of neck 12/02/17, RIGHT BREAST ABSCESS 09/17/2014, LEFT BREAST ABSCESS 10/11/2014, INGUINAL HYDRADENITIS, AXILLARY HYDRADENITIS Diabetes (Chronic) type 2 Dx : 2012 Last exacerbation : DKA : never Hypoglycemic episode : never ER visit : 01/08 - 500+ Hydradenitis (Chronic) hidradenitis left axilla - L73.2 Morbid obesity (Chronic) Bipolar affective (Chronic) Osteoarthritis (Chronic) Chronic back pain (Chronic) Diabetic leg ulcer (Chronic) nonhealing diabetic ulcer right medial leg - E11.622 Non-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 fat layer exposed (Chronic) diabetic ulcer right medial leg - L97.912 Smoker (Chronic) 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 H/O hidradenitis suppurativa (Chronic) Z87.2 Medical History: Medical History (Last Updated 02/14/18 @ 14:17 by Shryea Rondon) Cat scratch of left hand with infection (Acute) S60.512A, L08.9, W55.03XA cat scratch infection dorsum left hand at proximal index finger Cat scratch of right hand with infection (Acute) S60.511A, L08.9, W55.03XA cat scratch infection dorsum right hand with extension to long finger Cat scratch (Acute) W55.03XA cat scratch infection dorsum right hand with extension to long finger cat scratch infection dorsum left hand at proximal index finger Diabetes (Chronic) E11.9 type 2 Dx : 2012 Last exacerbation : DKA : never Hypoglycemic episode : never ER visit : 01/08 - 500+ Hydradenitis (Chronic) L73.2 hidradenitis left axilla - L73.2 Morbid obesity (Chronic) E66.01 Bipolar affective (Chronic) F31.9 Osteoarthritis (Chronic) Chronic back pain (Chronic) M54.9, G89.29 Diabetic leg ulcer (Chronic) E11.622, L97.909 nonhealing diabetic ulcer right medial leg - E11.622 Non-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 fat layer exposed (Chronic) L97.912 diabetic ulcer right medial leg - L97.912 Smoker (Chronic) F17.200 F17.200 Open wound of left axillary region (Acute) S41.102A open surgical hidradenitis wound left axilla - S41.102A 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 compromised skin graft left axilla Abscess of sternal region (Acute) L02.213 L02.213 Sternal chest wall wound abscess Open wound of chest wall, complicated (Acute) S21.109A S21.109D open chest wall sternal wound H/O hidradenitis suppurativa (Chronic) Z87.2 Z87.2 Abscess of breast (Acute) N61.1 abscess right medial breast Alcohol abuse F10.10 Anxiety and depression F41.9, F32.9 Asthma J45.909 Back problem M53.9 Drug abuse F19.10 Frequent headaches R51 GERD (gastroesophageal reflux disease) K21.9 Hay fever J30.1 Hearing problem H91.90 Hidradenitis L73.2 LEFT INGUINAL, RIGHT AXILLARY, POSTERIOR NECK, High triglycerides E78.1 Hyperlipidemia E78.5 Kidney problem N28.9 Neuropathy G62.9 Non-healing surgical wound T81.89XA NON HEALING HIDRADENITIS WOUND POSTERIOR NECK. NON HEALING INFECTED HIDRADENITIS ULCER POSTERIOR NECK Osteoarthritis M19.90 Partial thickness burn SUPEROPOSTERIOR NECK Recurrent UTI N39.0 Sinus problem J34.9 Vision problem H54.7 HTN (hypertension) I10 Allergies lamotrigine [From Lamictal] Allergy (Mild, Verified 05/10/18 15:29) Rash adhesive tape Allergy (Verified 05/10/18 15:29) Rash Home Medications: Ambulatory Orders Medication Instructions Recorded Buspirone HCl [Buspar] 20 mg PO TID 01/18/14 Clonidine HCl [Catapres] 0.1 mg PO DAILY 01/18/14 Duloxetine Hcl [Cymbalta] 90 mg PO DAILY 01/18/14 Metformin HCl [Glucophage] 1,000 mg PO BIDCM 01/18/14 Tizanidine HCl [Zanaflex] 4 mg PO 4X/DAY 01/18/14 glipiZIDE [Glucotrol] 15 mg PO DAILY@0730 01/18/14 Quetiapine Fumarate [Seroquel XR] 800 mg PO QHS 04/25/14 Meloxicam [Mobic] 7.5 mg PO DAILY 01/14/16 Spironolactone [Aldactone] 100 mg PO DAILY 01/14/16 Norgestrel-Ethinyl Estradiol 1 tab PO DAILY 01/20/16 [Cryselle-28 Tablet] Rosenberg Carbonate [Rosenberg 300 mg PO BID 05/10/16 Carbonate ER] gabapentin 300 mg capsule 300 mg PO 4X/DAY cap 12/01/17 Lubiprostone [Amitiza] 24 mcg PO BID 01/16/18 Omeprazole [Prilosec] 20 mg PO DAILY 01/16/18 insulin aspart U-100 100 unit/mL See Label Instructions SC TID ml 02/14/18 subcutaneous solution insulin glargine (U-100) 100 10 unit SC QHS 02/14/18 unit/mL subcutaneous solution clindamycin HCl 300 mg capsule 300 mg PO TID #42 cap 05/10/18 fluconazole 100 mg tablet 100 mg PO QDAY #14 tab 05/10/18 Surgical History: Surgical History (Last Updated 03/07/18 @ 23:20 by Phoenix Boswell MD) History of incision and drainage (Chronic) Z98.890 Left side of neck 12/02/17, RIGHT BREAST ABSCESS 09/17/2014, LEFT BREAST ABSCESS 10/11/2014, INGUINAL HYDRADENITIS, AXILLARY HYDRADENITIS History of section (Acute) Z98.891 History of tonsillectomy (Acute) Z98.890, Z90.89 Hidradenitis L73.2 EXCISION LEFT INGUINAL HIDRADENITIS AND PLACEMENT OF WOUND VAC (121 CM2) 2008, EXCISION RIGHT AXILLARY HIDRADENITIS AND PLACEMENT OF WOUND VAC (36 CM2) 12/08/2009, EXCISIONAL DEBRIDEMENT HIDRADENITIS POSTERIOR NECK (33 CM2) 2013, EXCISIONAL DEBRIDEMENT NONHEALING HIDRADENITIS WOUND POSTERIOR NECK WITH 10 CM SECONDARY WOUND CLOSURE 05/15/2014,INCISION AND DRAINAGE AND EXCISIONAL DEBRIDEMENT NONHEALING POSTOP INFECTED HIDRADENITIS ULCER POSTERIOR NECK (20 CM2 ) AND DEBRIDEMENT PARTIAL THICKNESS BURN SUPEROPOSTERIOR NECK(16 CM2) 06/26/2014 , SURGICAL PREPARATION, LEFT AXILLA WITH EXCISION HIDRADENITIS (88 SQ CM) AND SURGICAL PREPARATION, RIGHT MEDIAL LEG WITH EXCISON NONHEALING DIABETIC ULCER RIGHT MEDIAL LEG AND 4 CM COMPLEX SECONDARY WOUND CLOSURE 01/20/2016, EXCISIONAL DEBRIDEMENT LEFT AXILLARY HIDRADENITIS WOUND WITH FTSG RECONSTRUCTION FROM THE RIGHT LATERAL ABDOMINAL WALL (55 CM2) AND PLACEMENT OF NPWT 02/12/2016, SURGICAL PREPARATION STERNUM CHEST WALL WOUND WITH INCISION AND DRAINAGE ABSCESS AND EXCISIONAL DEBRIDEMENT (14 CM2) 03/05/2016, CLOSURE STERNUM CHEST WALL OPEN ABSCESS WOUND WITH RHOMBOID TRANSPOSITION SKIN FLAP RECONSTRUCTION (24.5 CM2) AND SURGICAL PREPARATION RIGHT MEDIAL BREAST WITH INCISION AND DRAINAGE ABSCESS AND EXCISIONAL DEBRIDEMENT (28 CM2) 03/11/2016 [place] teeth removed K08.499 Surgical History: tonsillectomy, - - , wisdom teeth removal, incision and drainage of inguinal hidradenitis. Incision and drainage of axillary hidradenitis. Excision left inguinal hidradenitis in 01/27. Excision right axillary hidradenitis in 11/30. Excisional debridement hidradenitis posterior neck on 04/25/14. Excisional debridement nonhealing hidradenitis wound posterior neck with secondary wound closure on 05/15/14. Incision and drainage and excisional debridement nonhealing postop infected hidradenitis ulcer posterior neck and debridement partial thickness burn superoposterior neck on 06/26/14. Psychiatric History: Anxiety, Bipolar Smoking Status: Current every day smoker Tobacco Use: Cigarettes Alcohol: None Drugs: None - *Family History Maternal Family History: Family History (Last Reviewed 02/14/18 @ 14:01 by Shreya Rondon) Grandmother Thyroid disorder Father Diabetes Heart disease Hypertension High cholesterol Mother Heart disease Hypertension High cholesterol History Items: Heart Disease, Hypertension, - Paternal Family History: Family History (Last Reviewed 02/14/18 @ 14:01 by Shreya Rondon) Grandmother Thyroid disorder Father Diabetes Heart disease Hypertension High cholesterol Mother Heart disease Hypertension High cholesterol History Items: Diabetes, Heart Disease, Hypertension Review of Systems Constitutional: Denies: Anorexia, Chills, Fever, Weakness Eyes: Denies: Blurred vision, Double vision, Drainage, Redness HEENT: Denies: Difficulty Hearing, Ear Pain, Eye Pain, Nasal Congestion, Sore Throat Cardiovascular: Denies: Chest Pain, Chest Tightness, Edema, Light Headedness, Palpitations, Syncope Respiratory: Denies: Cough, Pleuritic Pain, Shortness of Breath, Sputum production, Wheezing Gastrointestinal: Reports: Nausea. Denies: Abdominal Pain, Constipation, Diarrhea, Vomiting Genitourinary: Denies: Dysuria, Frequency, Hematuria Musculoskeletal: Reports: Neck Pain. Denies: Arm Pain, Back Pain, Foot Pain Skin: Denies: Dryness, Rash Neurological: Denies: Balance problems, Double vision, Change in Speech, Slurred speech, Confusion, Headaches, Numbness, Tingling Psychiatric: Reports: Anxiety. Denies: Depression Endocrine: Denies: Change in Body Habitus, Polydipsia - Physical Exam General: Alert, Oriented x3, Cooperative, No apparent distress HEENT: PERRLA, EOMI, Normocephalic Oral: Moist Mucosa, No Gingival or Mucosal Lesions/ Ulcerations Neck: Supple, No JVD, Negative Carotid Bruits, Trachea Midline, Thyroid Normal Size and Texture Lungs: Clear to auscultation, No rhonchi, No wheeze, No rales, Diminished Cardiovascular: Regular rate, Regular Rhythm, Normal S1, Normal S2, No murmurs Abdomen: Bowel Sounds Present, Soft, Non Tender, Non-Distended, No Hepato- splenomegaly Extremities: No clubbing, No cyanosis, No edema Skin: No rashes, Ulcer/ Wound Lymphatic: No Cervical, Supraclavicular, or Inguinal Adenopathy Neurological: Cranial nerves II-XII grossly intact, Motor Exam 5/5 strength throughout Psych/Mental Status: Normal Affect, Appropriate, Alert and oriented to time, place, person, mood and affect Vital Signs Temp Pulse Resp BP Pulse Ox 97.6 F L 76 16 111/53 L 88 05/19/18 11:09 05/19/18 11:24 05/19/18 11:09 05/19/18 11:09 05/19/18 11:09 Oxygen Flow Rate (L/min) 2 Oxygen Delivery Method Nasal Cannula Weight: 231 lb 11.293 oz Body Mass Index (BMI) 38.5 Finger Stick Blood Glucose 239 Intake and Output for Last 24 Hours 05/17/18 05/18/18 05/19/18 23:59 23:59 23:59 Intake Total 1200 / 1200 Balance 1200 / 1200 Laboratory Tests Past 24 Hrs 05/19/18 05/19/18 06:45 Unknown Urine Test Negative S.aureus Protein A PCR NEGATIVE MRSA (PCR) Negative POC Glucose 05/19/18 05/19/18 09:19 07:00 POC Glucose 239 H 208 H Assessment/Plan All Active Problems (Last Updated 02/14/18 @ 14:17 by Shreya Rondon) Folliculitis (Acute) Diabetes mellitus type 2, uncontrolled (Acute) Unspecified open wound of unspecified part of neck, subsequent encounter (Acute) Unspecified open wound of unspecified part of head, subsequent encounter (Acute) Open wound involving head with neck, complicated (Acute) Abscess of neck (Acute) History of section (Acute) History of tonsillectomy (Acute) Cat scratch of left hand with infection (Acute) Cat scratch of right hand with infection (Acute) Cat scratch (Acute) Open wound of left axillary region (Acute) Abscess of sternal region (Acute) Open wound of chest wall, complicated (Acute) Abscess of breast (Acute) This is a 32 years old female patient underwent elective incision, drainage and excisional debridement for recurrent hydradenitis/abscess of the posterior neck and occipital scalp and I am seeing this patient in consultation for postoperative medical management. #1 status post incision, drainage and excisional debridement of recurrent cellulitis of the posterior neck and occipital scalp: Postoperative day 1. She is on IV clindamycin and oral fluconazole. Her vital signs are stable, afebrile. She is on IV hydromorphone as needed for pain as well as IV fluids. MRSA screen was negative. Wound culture sent, pending. She has history of recurrent hidradenitis of multiple locations of her body status post multiple incision and drainage procedures. Dr. Boswell is managing. #2 uncontrolled type 2 diabetes mellitus: Patient mentioned that she has sugar has been in the range of 300s. Hemoglobin A1c was 8.8 years ago. Plan for ADA diet, continue home doses of insulin glargine, sliding scale, continue metformin and glipizide, Accu-Cheks q. before meals at bedtime. #3 chronic pain syndrome: Continue Neurontin and IV hydromorphone as needed as well as meloxicam. #4 anxiety/bipolar disorder: Continue clonidine, Cymbalta, lithium, Seroquel. #5 tobacco abuse: Start NicoDerm patch. #6 DVT prophylaxis: SCDs. This note was generated with [employer] software. It may contain incorrect words, spelling, and punctuation that were not noted in checking the note before signing. Code Visit Inpatient E&M: 34145 Init Hosp L2
[2018-05-19] MEDS: busPIRone 5 MG Tablet PO ×2 (14:27→22:19)
[2018-05-19] MEDS: busPIRone 15 MG TABLET PO ×2 (14:27→22:16)
[2018-05-19] MEDS: Ondansetron 4 MG/2 ML Vial IV (14:28)
[2018-05-19] MEDS: diazePAM 5 MG Tablet PO ×2 (14:55→21:14)
[2018-05-19] MEDS: metFORMIN HCl 1,000 MG Tablet 1000 MG PO (16:18)
[2018-05-19] MEDS: oxyCODONE 5 MG Tablet 10 MG PO ×2 (16:22→22:15)
[2018-05-19] MEDS: Insulin Lispro 100 UNIT/ML INSULN.PEN SC (16:23)
[2018-05-19 16:36] LABS: Bedside Glucose 341 mg/dL (70-110)
--- NOTE | 2018-05-19 17:38 | PCM.OPRPT ---
Report of Operation Date of Procedure: 05/19/18 Pre-Operative Diagnosis: 1. 4 cm recurrent hidradenitis abscess posterior neck and occipital scalp. 2. Chronic neck pain. 3. Smoker. 4. Diabetes mellitus. Post-Operative Diagnosis: Same. Surgery/Procedure Performed:: Surgical preparation posterior neck/occipital scalp with incision and drainage and excisional debridement recurrent hidradenitis abscess (31.5 cm2). Description of Surgical Findings:: 32 year old woman presents with increasing redness and pain and swelling on her posterior neck and occipital scalp area. She has had hidradenitis in this area in the past that was excised and skin grafted in 2013. She states she has pain with movement of her neck. She denies any fever. She denies any trauma. She denies any drainage. She has a history of chronic neck pain and her neck xray was normal. She also has persistent numbness in her thumb and index finger bilaterally. After her neck hidradenitis is treated, will proceed with NCV studies to evaluate for carpal tunnel syndrome. Patient was informed of the risks and complications of the procedure including alternatives to surgery. These were discussed with the patient personally. Patient voices understanding and wishes to proceed. Some of the risks and complications were included in a form from the [employer]. Encouraged the patient to stop smoking as it may have deleterious effects on wound healing. Size of defect posterior neck/occipital scalp - 9 x 3.5 x 2 cm. title i assistant: None Type of Anesthesia:: General Specimen's removed: 1. Recurrent hidradenitis abscess posterior neck/occipital scalp to Pathology and Microbiology. 2. MRSA Wound DNA by PCR. Drains: None. Estimated Blood Loss (mL): 25 ml. Description of Procedure: Patient was taken to OR in supine position and was placed under general anesthesia. She was then placed in the supine position. Her posterior neck and occipital scalp were prepped and draped in the usual fashion. SCD's were placed for DVT prophylaxis. Perioperative antibiotics were given intravenously. Using xylocaine with epinephrine, the recurrent hidradenitis abscess was infiltrated. After waiting 5 minutes for the anesthetic to take effect, I proceeded with incision and drainage of her recurrent hidradenitis abscess. There was a lot of fat necrosis present. No gross pus was seen. Extensive scar tissue was present indicative of chronic recurrent infections. The fat necrosis extended to the underlying muscular fascia. Some of the fascia was inflamed and debrided. The underlying muscle appeared viable. No necrotizing process was seen at this time. The surrounding induration and fat necrosis was sharply excised and debrided to open up the wound to make it easier for the wound care. Some of the tissue was sent to Microbiology for culture. A positive culture will necessitate antibiotic therapy. The rest of the tissue was sent to Pathology for analysis to rule out carcinoma. MRSA Wound DNA by PCR was also sent. The wound was irrigated with saline. Hemostasis was obtained with electrocautery. The size of the defect after incision and drainage and excisional debridement was 9 x 3.5 x 2 cm or 31.5 cm2. The wound was packed with Mepitel nonadherent dressing followed by Kerlix gauze and Betadine followed by dry Kerlix gauze and an ABD pad for a compression dressing. Patient tolerated the procedure well and was sent to PACU in satisfactory condition. She will be sent upstairs for a surgical observation overnight stay in the hospital. Once she is tolerating po analgesia with the dressing changes, then she will be discharged. I anticipate 1-2 days. Will begin Silver dressing changes tomorrow. After discharge will [facility]up [facility]. While there, will monitor the healing of the wound and to decide on delayed closure with skin grafting. Grafts/Implants Used: None. - Complications None. - Admit VTE Documentation VTE Present on Admission: No VTE Mechan Device Prophylaxis: SCD's VTE Pharm Prophylaxis ordered?: No Code Visit Surgery Charges CPT - 66080 ICD-10 - L02.11, L02.811, L73.2, E11.9, M54.2, F17.200 07543 S01.90xA, L02.11, L02.811, L73.2, E11.9, M54.2, F17.200
[2018-05-19] MEDS: proMETHazine 25 MG Tablet PO (18:51)
[2018-05-19] MEDS: QUEtiapine 100 MG Tablet 400 MG PO (22:18)
[2018-05-19 22:31] LABS: Bedside Glucose 152 mg/dL (70-110)
[2018-05-20] VITALS (10 sets, daily range): BP systolic 111–124; BP diastolic 66–78; PULSE 72–93; RESP 16–18; TEMP 36.5–37; O2SAT 96–100
[2018-05-20] MEDS: HYDROmorphone 1 MG/ML Syringe IV ×7 (01:11→22:22)
[2018-05-20] MEDS: Albuterol 2.5 MG/3 ML VIAL.NEB. INHALATION ×5 (01:41→23:16)
[2018-05-20] MEDS: oxyCODONE 5 MG Tablet 10 MG PO ×5 (03:06→20:23)
[2018-05-20] MEDS: busPIRone 5 MG Tablet PO ×3 (06:11→20:25)
[2018-05-20] MEDS: busPIRone 15 MG TABLET PO ×3 (06:11→20:32)
[2018-05-20] MEDS: Insulin Lispro 100 UNIT/ML INSULN.PEN SC ×3 (06:51→22:32)
[2018-05-20 07:05] LABS: Bedside Glucose 189 mg/dL (70-110)
[2018-05-20] MEDS: Meloxicam 7.5 MG Tablet PO (07:55)
[2018-05-20] MEDS: QUEtiapine 100 MG Tablet 400 MG PO ×2 (07:55→20:25)
[2018-05-20] MEDS: tiZANidine HCl 2 MG Tablet 4 MG PO ×4 (07:55→20:26)
[2018-05-20] MEDS: DULoxetine Hcl 30 MG Capsule 90 MG PO (07:55)
[2018-05-20] MEDS: Pantoprazole Sodium 20 MG Tablet PO (07:55)
[2018-05-20] MEDS: Spironolactone 50 MG Tablet 100 MG PO (07:56)
[2018-05-20] MEDS: Docusate Sodium 100 MG Capsule PO ×2 (07:56→20:28)
[2018-05-20] MEDS: Fluconazole 100 MG Tablet PO (07:56)
[2018-05-20] MEDS: cloNIDine HCl 0.1 MG Tablet PO (07:56)
[2018-05-20] MEDS: Lithium Carbonate 300mg Capsule 300 MG PO ×2 (07:56→20:27)
[2018-05-20] MEDS: Gabapentin 300 MG Capsule PO ×4 (07:57→20:28)
[2018-05-20] MEDS: glipiZIDE 5 MG Tablet 15 MG PO (07:57)
[2018-05-20] MEDS: metFORMIN HCl 1,000 MG Tablet 1000 MG PO ×2 (07:57→16:03)
[2018-05-20] MEDS: diazePAM 5 MG Tablet PO ×2 (08:11→13:37)
[2018-05-20] MEDS: Glucerna Shake 120 ML LIQUID PO ×3 (08:11→16:04)
--- NOTE | 2018-05-20 08:51 | PCM.PROGNOTE ---
Subjective: Chief complaint: Follow-up after after consultation for postoperative medical management. Patient seen and examined. No acute events overnight. Today, she complained of neck pain, around 8 Ramón in severity. IV hydromorphone is working but not OxyIR. Her vital signs are stable - Physical Exam General: Alert, Oriented x3, Cooperative, No apparent distress HEENT: Atraumatic, PERRLA, EOMI, Normocephalic Oral: Moist Mucosa, No Gingival or Mucosal Lesions/ Ulcerations Neck: Supple, No JVD, Negative Carotid Bruits, Trachea Midline, Thyroid Normal Size and Texture Lungs: Clear to auscultation, No rhonchi, No wheeze, No rales, Diminished Cardiovascular: Regular rate, Regular Rhythm, Normal S1, Normal S2, No murmurs Abdomen: Bowel Sounds Present, Soft, Non Tender, Non-Distended, No Hepato-splenomegaly, Obese Extremities: No clubbing, No cyanosis, No edema Skin: No rashes, Ulcer/ Wound Lymphatic: No Cervical, Supraclavicular, or Inguinal Adenopathy Neurological: Cranial nerves II-XII grossly intact, Neuro grossly intact Psych/Mental Status: Normal Affect, Appropriate, Alert and oriented to time, place, person, mood and affect Vital Signs Temp Pulse Resp BP Pulse Ox 98.5 F 76 16 115/78 96 05/20/18 02:00 05/20/18 07:22 05/20/18 07:22 05/20/18 02:00 05/20/18 07:22 Oxygen Flow Rate (L/min) 2 Oxygen Delivery Method Room Air Weight: 231 lb 11.293 oz Body Mass Index (BMI) 38.5 Finger Stick Blood Glucose 239 Intake and Output for Last 24 Hours 05/18/18 05/19/18 05/20/18 23:59 23:59 23:59 Intake Total 1200 / 1200 2531 / 2531 Output Total 2450 / 2450 Balance 1200 / 1200 81 / 81 Microbiology Past 72 Hours 05/19/18 Unknown Gram Stain - Final Biopsy - Tissue Laboratory Tests Past 24 Hrs 05/19/18 Unknown S.aureus Protein A PCR NEGATIVE MRSA (PCR) Negative POC Glucose 05/20/18 05/19/18 05/19/18 06:49 22:23 16:13 POC Glucose 189 H 152 H 341 H 05/19/18 09:19 POC Glucose 239 H Medical Necessity - Tobacco Use Smoking Status: Current every day smoker Tobacco Use: Cigarettes Assessment/Plan All Active Problems (Last Updated 02/14/18 @ 14:17 by Shreya Rondon) Folliculitis (Acute) Diabetes mellitus type 2, uncontrolled (Acute) Unspecified open wound of unspecified part of neck, subsequent encounter (Acute) Unspecified open wound of unspecified part of head, subsequent encounter (Acute) Open wound involving head with neck, complicated (Acute) Abscess of neck (Acute) History of section (Acute) History of tonsillectomy (Acute) Cat scratch of left hand with infection (Acute) Cat scratch of right hand with infection (Acute) Cat scratch (Acute) Open wound of left axillary region (Acute) Abscess of sternal region (Acute) Open wound of chest wall, complicated (Acute) Abscess of breast (Acute) This is a 32 years old female patient underwent elective incision, drainage and excisional debridement for recurrent hydradenitis/abscess of the posterior neck and occipital scalp and I am seeing this patient in consultation for postoperative medical management. #1 status post incision, drainage and excisional debridement of recurrent cellulitis of the posterior neck and occipital scalp: Postoperative day 2. She is on IV clindamycin and oral fluconazole. Her vital signs are stable, afebrile MRSA screen was negative. Wound culture sent, pending. She has history of recurrent hidradenitis of multiple locations of her body status post multiple incision and drainage procedures. Dr. Boswell is managing. #2 uncontrolled type 2 diabetes mellitus: Blood sugar has been under fair control. She is on glargine insulin, metformin, glipizide and sliding scale. Hemoglobin A1c was 8.8 a few days ago. Plan to continue same treatment. #3 chronic pain syndrome: Continue Neurontin and IV hydromorphone and OxyIR, patient stated that her pain is not well controlled. #4 anxiety/bipolar disorder: Continue clonidine, Cymbalta, lithium, Seroquel. #5 tobacco abuse: On NicoDerm patch. #6 DVT prophylaxis: SCDs. This note was generated with [employer] software. It may contain incorrect words, spelling, and punctuation that were not noted in checking the note before signing. Code Visit Inpatient E&M: 50860 Subs Hosp L2
[2018-05-20 09:01] LABS: Hematocrit 37.5 % (37-47); Hemoglobin 11.6 g/dl (12.0-15.0); Mean Corp Hgb Conc 30.9 g/gl (32-36); Mean Corpuscular Hgb 29.6 pg (27.0-32.0); Mean Corpuscular Volume 95.7 fL (81-99); Mean Platelet Vol. 9.6 fl (6.2-12.0); Platelet Count 368 K/mm3 (150-450); RBC Distribution Width CV 15.2 % (11.6-14.6); RBC Distribution Width SD 53.6 fl (35.1-43.9); Red Blood Count 3.92 M/mm3 (4.2-5.4); White Blood Count 13.9 K/mm3 (4.4-11.0)
[2018-05-20 09:02] LABS: Scan Indicated on CBC? Y/N NO
[2018-05-20 09:29] LABS: Anion Gap 10 (5-15); BUN 13 mg/dL (7-18); BUN/Creat Ratio 12.5 RATIO (10-20); Calcium,Total 9.3 mg/dL (8.5-10.1); Chloride 100 mmol/L (98-107); Creatinine, Serum 1.04 mg/dL (0.55-1.02); EST Glomerular Filtration Rate 65 mL/min (>60); Est Glom Filt Rate - Afr Amer 78 mL/min (>60); Estimated Creatinine Clearance 69.23 ml/min; Glucose 248 mg/dL (74-106); Potassium 3.4 mmol/L (3.5-5.1); Prealbumin 19.4 mg/dL (20.0-40.0); Sodium Level 135 mmol/L (136-145)
[2018-05-20] MEDS: 0.9% NaCl Peripheral Flush Adult/Peds IV ×4 (09:34→17:53)
--- NOTE | 2018-05-20 11:39 | OP.PCM_ITS ---
Report of Operation Date of Procedure: 05/19/18 Pre-Operative Diagnosis: 1. 4 cm recurrent hidradenitis abscess posterior neck and occipital scalp. 2. Chronic neck pain. 3. Smoker. 4. Diabetes mellitus. Post-Operative Diagnosis: Same. Surgery/Procedure Performed:: Surgical preparation posterior neck/occipital scalp with incision and drainage and excisional debridement recurrent hidradenitis abscess (31.5 cm2). Description of Surgical Findings:: 32 year old woman presents with increasing redness and pain and swelling on her posterior neck and occipital scalp area. She has had hidradenitis in this area in the past that was excised and skin grafted in 2013. She states she has pain with movement of her neck. She denies any fever. She denies any trauma. She denies any drainage. She has a history of chronic neck pain and her neck xray was normal. She also has persistent numbness in her thumb and index finger bilaterally. After her neck hidradenitis is treated, will proceed with NCV studies to evaluate for carpal tunnel syndrome. Patient was informed of the risks and complications of the procedure including alternatives to surgery. These were discussed with the patient personally. Patient voices understanding and wishes to proceed. Some of the risks and complications were included in a form from the [employer]. Encouraged the patient to stop smoking as it may have deleterious effects on wound healing. Size of defect posterior neck/occipital scalp - 9 x 3.5 x 2 cm. film and video graphics designer: None Type of Anesthesia:: General Specimen's removed: 1. Recurrent hidradenitis abscess posterior neck/occipital scalp to Pathology and Microbiology. 2. MRSA Wound DNA by PCR. Drains: None. Estimated Blood Loss (mL): 25 ml. Description of Procedure: Patient was taken to OR in supine position and was placed under general anesthesia. She was then placed in the supine position. Her posterior neck and occipital scalp were prepped and draped in the usual fashion. SCD's were placed for DVT prophylaxis. Perioperative antibiotics were given intravenously. Using xylocaine with epinephrine, the recurrent hidradenitis abscess was infiltrated. After waiting 5 minutes for the anesthetic to take effect, I proceeded with incision and drainage of her recurrent hidradenitis abscess. There was a lot of fat necrosis present. No gross pus was seen. Extensive scar tissue was present indicative of chronic recurrent infections. The fat necrosis extended to the underlying muscular fascia. Some of the fascia was inflamed and debrided. The underlying muscle appeared viable. No necrotizing process was seen at this time. The surrounding induration and fat necrosis was sharply excised and debrided to open up the wound to make it easier for the wound care. Some of the tissue was sent to Microbiology for culture. A positive culture will necessitate antibiotic therapy. The rest of the tissue was sent to Pathology for analysis to rule out carcinoma. MRSA Wound DNA by PCR was also sent. The wound was irrigated with saline. Hemostasis was obtained with electrocautery. The size of the defect after incision and drainage and excisional debridement was 9 x 3.5 x 2 cm or 31.5 cm2. The wound was packed with Mepitel nonadherent dressing followed by Kerlix gauze and Betadine followed by dry Kerlix gauze and an ABD pad for a compression dressing. Patient tolerated the procedure well and was sent to PACU in satisfactory condition. She will be sent upstairs for a surgical observation overnight stay in the hospital. Once she is tolerating po analgesia with the dressing changes, then she will be discharged. I anticipate 1-2 days. Will begin Silver dressing changes tomorrow. After discharge will followup at the [facility]. While there, will monitor the healing of the wound and to decide on delayed closure with skin grafting. Grafts/Implants Used: None. - Complications None. - Admit VTE Documentation VTE Present on Admission: No VTE Mechan Device Prophylaxis: SCD's VTE Pharm Prophylaxis ordered?: No Code Visit Surgery Charges CPT - 18094 ICD-10 - L02.11, L02.811, L73.2, E11.9, M54.2, F17.200 24797 S01.90xA, L02.11, L02.811, L73.2, E11.9, M54.2, F17.200
--- NOTE | 2018-05-20 12:00 | PCM.PN.SRG ---
Subjective: Postop #1 Patient has wound pain and has needed IV analgesia. - Physical Exam General: Alert, Oriented x3 HEENT: PERRLA, EOMI Neck: Supple Lungs: Clear to auscultation Cardiovascular: Regular rate, Regular Rhythm Abdomen: Soft, Non-Distended Skin: Ulcer/ Wound - posterior neck/occipital scalp wound is stable. Underlying muscle is viable. No bleeding noted. No further evidence of infection. Wound redressed with Silver dressing. Neurological: Cranial nerves II-XII grossly intact Psych/Mental Status: Normal Affect, Appropriate Vital Signs Temp Pulse Resp BP Pulse Ox 98.1 F 75 16 124/74 H 97 05/20/18 08:00 05/20/18 11:32 05/20/18 11:32 05/20/18 08:00 05/20/18 08:00 Oxygen Flow Rate (L/min) 2 Oxygen Delivery Method Room Air Weight: 231 lb 11.293 oz Body Mass Index (BMI) 38.5 Finger Stick Blood Glucose 239 Intake and Output for Last 24 Hours 05/18/18 05/19/18 05/20/18 23:59 23:59 23:59 Intake Total 1200 / 1200 2531 / 2531 Output Total 2450 / 2450 Balance 1200 / 1200 81 / 81 Microbiology Past 72 Hours 05/19/18 Unknown Gram Stain - Final Biopsy - Tissue Laboratory Tests Past 24 Hrs 05/19/18 05/20/18 05/20/18 Unknown 08:40 08:40 WBC 13.9 H RBC 3.92 L Hgb 11.6 L Hct 37.5 MCV 95.7 MCH 29.6 MCHC 30.9 L RDW 15.2 H RDW Differential 53.6 H Plt Count 368 MPV 9.6 Sodium 135 L Potassium 3.4 L Chloride 100 Carbon Dioxide 25.0 Anion Gap 10 BUN 13 Creatinine 1.04 H Estim Creat Clear Calc 69.23 Est GFR (MDRD) Af Amer 78 Est GFR (MDRD) Non-Af 65 BUN/Creatinine Ratio 12.5 Glucose 248 H Calcium 9.3 Prealbumin 19.4 L S.aureus Protein A PCR NEGATIVE MRSA (PCR) Negative POC Glucose 05/20/18 05/19/18 05/19/18 06:49 22:23 16:13 POC Glucose 189 H 152 H 341 H Medical Necessity - Tobacco Use Smoking Status: Current every day smoker Tobacco Use: Cigarettes Assessment/Plan All Active Problems (Last Updated 02/14/18 @ 14:17 by Shreya Rondon) Folliculitis (Acute) Diabetes mellitus type 2, uncontrolled (Acute) Unspecified open wound of unspecified part of neck, subsequent encounter (Acute) Unspecified open wound of unspecified part of head, subsequent encounter (Acute) Open wound involving head with neck, complicated (Acute) Abscess of neck (Acute) History of section (Acute) History of tonsillectomy (Acute) Cat scratch of left hand with infection (Acute) Cat scratch of right hand with infection (Acute) Cat scratch (Acute) Open wound of left axillary region (Acute) Abscess of sternal region (Acute) Open wound of chest wall, complicated (Acute) Abscess of breast (Acute) 1. 4 cm recurrent hidradenitis posterior neck and occipital scalp. 2. Chronic neck pain. 3. Smoker. 4. Diabetes mellitus. 5. s/p surgical preparation posterior neck/occipital scalp with incision and drainage and excisional debridement recurrent hidradenitis abscess (31.5 cm2). Wound is clean and stable. Redressed with Silver dressing. Was painful. Needed IV analgesia. Continue IV Cleocin. Operative culture is pending. Prealbumin was 19.4. Encourage nutritional supplementation with protein to help the healing process. Will decrease IV analgesia in preparation for discharge tomorrow, tentative. Will have Home Health assist with wound care at home. After discharge, will followup at the [facility]ound Center. While at the Wound Center, will discuss surgical timing for delayed closure with skin grafting. Encouraged the patient to stop smoking as it may have deleterious effects on wound healing.
[2018-05-20 12:11] LABS: Bedside Glucose 124 mg/dL (70-110)
[2018-05-20] MEDS: Lactated Ringers 1,000 ML 60 ML IV (13:30)
--- NOTE | 2018-05-20 14:30 | CASEMGMT ---
DOMINICK BARRIGA Face to Face with patient for initial transition planning/care coordination assessment. Patient states that she lives with her parents and that her mother help with wound care. Patient states that she has had HHC in the past. Pt wishes to discharge home with HHC for wound care. DOMINICK BARRIGA will assist and setup HHC with company in-network with patient's insurance. DOMINICK BARRIGA explained that patient could discharge home tomorrow and CM would follow-up on Tuesday for HHC. Pt states she has no further needs or concerns at this time. CM to follow for discharge planning needs that may arise. Disposition Plan: Patient to discharge home with family support, HHC, and follow-up plans in place.
[2018-05-20 16:21] LABS: Bedside Glucose 179 mg/dL (70-110)
[2018-05-20 23:26] LABS: Bedside Glucose 241 mg/dL (70-110)
[2018-05-21] MEDS: oxyCODONE 5 MG Tablet 10 MG PO ×3 (01:54→11:43)
[2018-05-21 04:54] VITALS: BP 122/80; PULSE 75; RESP 18; TEMP 36.8; O2SAT 94
[2018-05-21 04:56] LABS: Bedside Glucose 134 mg/dL (70-110)
[2018-05-21] MEDS: HYDROmorphone 1 MG/ML Syringe IV ×3 (04:57→13:52)
[2018-05-21] MEDS: Lactated Ringers 1,000 ML 60 ML IV (05:04)
[2018-05-21] MEDS: busPIRone 5 MG Tablet PO ×2 (05:11→13:53)
[2018-05-21] MEDS: busPIRone 15 MG TABLET PO ×2 (05:11→13:53)
[2018-05-21] MEDS: diazePAM 5 MG Tablet PO ×2 (05:15→15:20)
[2018-05-21] MEDS: Insulin Lispro 100 UNIT/ML INSULN.PEN SC (07:42)
[2018-05-21 07:50] LABS: Bedside Glucose 192 mg/dL (70-110)
[2018-05-21 07:58] VITALS: BP 112/62; PULSE 88; RESP 18; TEMP 36.7; O2SAT 98
[2018-05-21] MEDS: Glucerna Shake 120 ML LIQUID PO ×2 (08:11→11:46)
[2018-05-21] MEDS: glipiZIDE 5 MG Tablet 15 MG PO (08:12)
[2018-05-21] MEDS: QUEtiapine 100 MG Tablet 400 MG PO (08:12)
[2018-05-21] MEDS: Spironolactone 50 MG Tablet 100 MG PO (08:13)
[2018-05-21] MEDS: tiZANidine HCl 2 MG Tablet 4 MG PO ×2 (08:14→13:54)
[2018-05-21] MEDS: Meloxicam 7.5 MG Tablet PO (08:14)
[2018-05-21] MEDS: Gabapentin 300 MG Capsule PO ×2 (08:14→11:46)
[2018-05-21] MEDS: DULoxetine Hcl 30 MG Capsule 90 MG PO (08:16)
[2018-05-21] MEDS: Fluconazole 100 MG Tablet PO (08:16)
[2018-05-21] MEDS: metFORMIN HCl 1,000 MG Tablet 1000 MG PO (08:17)
[2018-05-21] MEDS: Lithium Carbonate 300mg Capsule 300 MG PO (08:17)
[2018-05-21] MEDS: Docusate Sodium 100 MG Capsule PO (08:17)
[2018-05-21] MEDS: cloNIDine HCl 0.1 MG Tablet PO (08:18)
[2018-05-21] MEDS: Pantoprazole Sodium 20 MG Tablet PO (08:18)
--- NOTE | 2018-05-21 09:08 | PN_ITS ---
Subjective: Chief complaint: Follow-up after after consultation for postoperative medical management. Patient seen and examined. No acute events overnight. She mentioned that her neck pain is not well controlled. She does have a history of drug abuse and she may be intolerant to narcotics. Her vital signs stable, afebrile. - Physical Exam General: Alert, Oriented x3, Cooperative, No apparent distress HEENT: Atraumatic, PERRLA, EOMI, Normocephalic Oral: Moist Mucosa, No Gingival or Mucosal Lesions/ Ulcerations Neck: Supple, No JVD, Negative Carotid Bruits, Trachea Midline, Thyroid Normal Size and Texture Lungs: Clear to auscultation, No rhonchi, No wheeze, No rales, Diminished Cardiovascular: Regular rate, Regular Rhythm, Normal S1, Normal S2, PMI Normal Abdomen: Bowel Sounds Present, Soft, Non Tender, Non-Distended, No Hepato- splenomegaly, Obese Extremities: No clubbing, No cyanosis, No edema Skin: No rashes, No breakdown Lymphatic: No Cervical, Supraclavicular, or Inguinal Adenopathy Neurological: Cranial nerves II-XII grossly intact, Neuro grossly intact Psych/Mental Status: Normal Affect, Appropriate, Alert and oriented to time, place, person, mood and affect Vital Signs Temp Pulse Resp BP Pulse Ox 98.1 F 88 18 112/62 98 05/21/18 07:58 05/21/18 07:58 05/21/18 07:58 05/21/18 07:58 05/21/18 07:58 Oxygen Flow Rate (L/min) 2 Oxygen Delivery Method Room Air Weight: 231 lb 11.293 oz Body Mass Index (BMI) 38.5 Finger Stick Blood Glucose 239 Intake and Output for Last 24 Hours 05/19/18 05/20/18 05/21/18 23:59 23:59 23:59 Intake Total 1200 / 1200 4760 / 4760 1439 / 1439 Output Total 4750 / 4750 700 / 700 Balance 1200 / 1200 739 / 739 Microbiology Past 72 Hours 05/19/18 Unknown Gram Stain - Final Biopsy - Tissue Laboratory Tests Past 24 Hrs 05/20/18 08:40 Sodium 135 L Potassium 3.4 L Chloride 100 Carbon Dioxide 25.0 Anion Gap 10 BUN 13 Creatinine 1.04 H Estim Creat Clear Calc 69.23 Est GFR (MDRD) Af Amer 78 Est GFR (MDRD) Non-Af 65 BUN/Creatinine Ratio 12.5 Glucose 248 H Calcium 9.3 Prealbumin 19.4 L POC Glucose 05/21/18 05/21/18 05/20/18 07:41 04:50 22:25 POC Glucose 192 H 134 H 241 H 05/20/18 05/20/18 15:58 11:47 POC Glucose 179 H 124 H Medical Necessity - Tobacco Use Smoking Status: Current every day smoker Tobacco Use: Cigarettes Assessment/Plan All Active Problems (Last Updated 02/14/18 @ 14:17 by Shreya Rondon) Folliculitis (Acute) Diabetes mellitus type 2, uncontrolled (Acute) Unspecified open wound of unspecified part of neck, subsequent encounter (Acute) Unspecified open wound of unspecified part of head, subsequent encounter (Acute) Open wound involving head with neck, complicated (Acute) Abscess of neck (Acute) History of section (Acute) History of tonsillectomy (Acute) Cat scratch of left hand with infection (Acute) Cat scratch of right hand with infection (Acute) Cat scratch (Acute) Open wound of left axillary region (Acute) Abscess of sternal region (Acute) Open wound of chest wall, complicated (Acute) Abscess of breast (Acute) This is a 32 years old female patient underwent elective incision, drainage and excisional debridement for recurrent hydradenitis/abscess of the posterior neck and occipital scalp and I am seeing this patient in consultation for postoperative medical management. #1 status post incision, drainage and excisional debridement of recurrent cellulitis of the posterior neck and occipital scalp: Postoperative day 3. She is on IV clindamycin and oral fluconazole. Her vital signs are stable, afebrile MRSA screen was negative. Wound culture sent, pending. She has history of recurrent hidradenitis of multiple locations of her body status post multiple incision and drainage procedures. Plan to continue same treatment, follow cultures, Dr. Boswell is on the case. #2 uncontrolled type 2 diabetes mellitus: Blood sugar has been under fair control. She is on glargine insulin, metformin, glipizide and sliding scale. Hemoglobin A1c was 8.8 a few days ago. Plan to continue same treatment. #3 chronic pain syndrome: Continue Neurontin and IV hydromorphone and OxyIR, patient stated that her pain is not well controlled. I will have Dr. Boswell manage her pain medication. #4 anxiety/bipolar disorder: Continue clonidine, Cymbalta, lithium, Seroquel. #5 tobacco abuse: On NicoDerm patch. #6 DVT prophylaxis: SCDs. This note was generated with [employer] dictation software. It may contain incorrect words, spelling, and punctuation that were not noted in checking the note before signing. Code Visit Inpatient E&M: 42316 Subs Hosp L2
[2018-05-21] MEDS: 0.9% NaCl Peripheral Flush Adult/Peds IV ×3 (09:28→13:52)
--- NOTE | 2018-05-21 10:19 | NURSING ---
Glenny called this nurse on nurse phone, asked for pain medication. This nurse told her she just had Dilaudid at 09:20. Oh I did was Glenny's response. She was reminded by this nurse that she is not due for any pain medication yet. Dr. Sandoval is aware that her pain is not controlled as she told him during his rounds with her that she is in a lot of pain. Dr. Sandoval wanted this nurse to talk with Dr. Boswell about pain control.
[2018-05-21 11:40] LABS: Bedside Glucose 139 mg/dL (70-110)
[2018-05-21] MEDS: Ondansetron 4 MG/2 ML Vial IV (11:44)
--- NOTE | 2018-05-21 14:07 | NURSING ---
Dr. Boswell in to change dressing. Changed dressing after this nurse given Dilaudid. Dr. Boswell sending pt home. Shalini, Charge Nurse called Alis Garcia CM to verify set up for home. Nishi to call tomorrow May [address] Boswell told pt he could change her dressing tomorrow in his office at 1600 tomorrow 05/22 to just come there.
--- NOTE | 2018-05-21 14:09 | PCM.PN.SRG ---
Subjective: Postop #2 Patient is resting comfortably. Tolerated Silver dressing change reasonably well today. - Physical Exam General: Alert, Oriented x3 HEENT: PERRLA, EOMI Neck: Supple Lungs: Clear to auscultation Cardiovascular: Regular rate, Regular Rhythm Abdomen: Soft, Non-Distended Skin: Ulcer/ Wound - posterior neck/occipital scalp wound stable. No bleeding. No further evidence of infection. Muscle is viable. Redressed with Silver dressing. Neurological: Cranial nerves II-XII grossly intact Psych/Mental Status: Normal Affect, Appropriate Vital Signs Temp Pulse Resp BP Pulse Ox 98.1 F 88 18 112/62 98 05/21/18 07:58 05/21/18 07:58 05/21/18 07:58 05/21/18 07:58 05/21/18 07:58 Oxygen Flow Rate (L/min) 2 Oxygen Delivery Method Room Air Weight: 231 lb 11.293 oz Body Mass Index (BMI) 38.5 Finger Stick Blood Glucose 239 Intake and Output for Last 24 Hours 05/19/18 05/20/18 05/21/18 23:59 23:59 23:59 Intake Total 1200 / 1200 4760 / 4760 1439 / 1439 Output Total 4750 / 4750 700 / 700 Balance 1200 / 1200 10 / 10 739 / 739 Microbiology Past 72 Hours 05/19/18 Unknown Gram Stain - Final Biopsy - Tissue Wound Culture - Preliminary Coag Negative Staph POC Glucose 05/21/18 05/21/18 05/21/18 11:38 07:41 04:50 POC Glucose 139 H 192 H 134 H 05/20/18 05/20/18 22:25 15:58 POC Glucose 241 H 179 H Medical Necessity - Tobacco Use Smoking Status: Current every day smoker Tobacco Use: Cigarettes Assessment/Plan All Active Problems (Last Updated 02/14/18 @ 14:17 by Shreya Rondon) Folliculitis (Acute) Diabetes mellitus type 2, uncontrolled (Acute) Unspecified open wound of unspecified part of neck, subsequent encounter (Acute) Unspecified open wound of unspecified part of head, subsequent encounter (Acute) Open wound involving head with neck, complicated (Acute) Abscess of neck (Acute) History of section (Acute) History of tonsillectomy (Acute) Cat scratch of left hand with infection (Acute) Cat scratch of right hand with infection (Acute) Cat scratch (Acute) Open wound of left axillary region (Acute) Abscess of sternal region (Acute) Open wound of chest wall, complicated (Acute) Abscess of breast (Acute) 1. 4 cm recurrent hidradenitis posterior neck and occipital scalp. 2. Chronic neck pain. 3. Smoker. 4. Diabetes mellitus. 5. s/p surgical preparation posterior neck/occipital scalp with incision and drainage and excisional debridement recurrent hidradenitis abscess (31.5 cm2). Wound is clean and stable. Redressed with Silver dressing. Tolerated reasonably well. Operative culture shows Coag negative Staph. Will discharge home on Cleocin. Prealbumin was 19.4. Encourage nutritional supplementation with protein to help the healing process. Discharge home today. Will have Home Health assist with wound care at home. Will have patient followup in office tomorrow for a dressing change as Home Health may not make it out there until Tuesday. Will make appt for followup at the [facility] Center. Until seen at the Wound Center will see in the office. While at the Wound Center, will discuss surgical timing for delayed closure with skin grafting. Encouraged the patient to stop smoking as it may have deleterious effects on wound healing. Wrote scripts for Dilaudid for pain (60 tabs) and Valium for spasm (30 tabs). Wrote scripts for Phenergan for nausea (30 tabs) and a refill and for Colace for constipation (60 tabs). Discussed with patient Serotonin Syndrome because of all the medication that she is on. She received instructional packet on it.
--- NOTE | 2018-05-21 14:31 | PCM.DC ---
You will use the following diet at home:: Calorie/Carbohydrate Controlled (specify 1200, 1400, etc) Discharge Activity: May Not Drive, May Shower May shower in (days): 1 - may shower at the time of the dressing changes. May resume sexual activity in: 10-14 days Weight Bearing Status: Weight bearing as tolerated Lifting Restrictions: 20 lbs. Keep extremity elevated above heart level: - - elevate head. Call your doctor if your incision/area has: Continuous Slow Oozing, Sudden Increased Bleeding, Increased Pain/ Swelling, Increased Redness, Foul Smelling Discharge, Swelling at the incision site Call your doctor if you observe: Fever of 101 or Higher, Coldness, Increased Pain, Shortness of breath, Chest pain, Calf discomfort, Uncontrolled pain Suture Line Care: - - daily dressing changes with Aquacel Silver. Change Dressing in (Days):: 1 - Silver dressing changes daily. Cleanse incision/area with: Soap & Water - may cleanse the wound with soap and water at the time of the dressing change., - - may get wound wet in the shower at the time of the dressing change. Additional Dressing/Incision Instructions:: Home Health to assist with the Silver dressing changes daily with followed by 4x4 gauze. May wash the wound with soap and water at the time of the dressing change. Instructions: Serotonin Allergies/Adverse Reactions: Allergies lamotrigine [From Lamictal] Allergy (Mild, Verified 05/10/18 15:29) Rash adhesive tape Allergy (Verified 05/10/18 15:29) Rash Medications to take at Discharge Buspirone HCl [Buspar] 20 mg PO TID 01/18/14 Clonidine HCl [Catapres] 0.1 mg PO DAILY 01/18/14 Duloxetine Hcl [Cymbalta] 90 mg PO DAILY 01/18/14 Metformin HCl [Glucophage] 1,000 mg PO BIDCM 01/18/14 Tizanidine HCl [Zanaflex] 4 mg PO 4X/DAY 01/18/14 glipiZIDE [Glucotrol] 15 mg PO DAILY@0730 01/18/14 Quetiapine Fumarate [Seroquel XR] 800 mg PO QHS 04/25/14 Meloxicam [Mobic] 7.5 mg PO DAILY 01/14/16 Spironolactone [Aldactone] 100 mg PO DAILY 01/14/16 Norgestrel-Ethinyl Estradiol [Cryselle-28 Tablet] 1 tab PO DAILY 01/20/16 [place] Carbonate [[place] Carbonate ER] 300 mg PO BID 05/10/16 gabapentin 300 mg capsule 300 mg PO 4X/DAY cap 12/01/17 Lubiprostone [Amitiza] 24 mcg PO BID 01/16/18 Omeprazole [Prilosec] 20 mg PO DAILY 01/16/18 insulin aspart U-100 100 unit/mL subcutaneous solution See Label Instructions SC TID ml 02/14/18 insulin glargine (U-100) 100 unit/mL subcutaneous solution 10 unit SC QHS 02/14/18 Albuterol Aerosols [Ventolin Aerosols] 2.5 mg INHALATION Q2H PRN PRN vial.neb. 05/21/18 Clindamycin HCl 300 mg PO TID #42 cap 05/21/18 Diazepam [Valium] 5 mg PO 4X/DAY PRN PRN #30 tab 05/21/18 Docusate Sodium [Colace] 100 mg PO BID #60 cap 05/21/18 Fluconazole 100 mg PO QDAY #14 tab 05/21/18 Gauze Bandage [Gauze Pads] 4 bandage TP .QDAILY #120 bandage 05/21/18 Glucerna Shake 120 ml PO TIDCM liquid 05/21/18 HYDROmorphone tablet [Dilaudid] 2 - 4 mg PO 4X/DAY PRN PRN 7 Days #60 tab 05/21/18 Insulin Lispro [Humalog KwikPen] See Protocol SC TIDAC insuln.pen 05/21/18 Nicotine [Nicoderm] 14 mg TRANSDERM. DAILY patch 05/21/18 Pantoprazole Sodium [Protonix] 20 mg PO DAILY tablet 05/21/18 Quetiapine Fumarate [Seroquel] 400 mg PO BID tablet 05/21/18 Silver/Hydrocolloid Dressing [Aquacel-Ag W-Hydrofiber Dress] 1 bandage TP .QDAILY 30 Days #15 bandage 05/21/18 busPIRone [Buspar] 5 mg PO TID tablet 05/21/18 busPIRone [Buspar] 15 mg PO TID tablet 05/21/18 proMETHazine tablet [Phenergan tablet] 25 mg PO 4X/DAY PRN PRN #30 tab 05/21/18 The following prescriptions were given: Diazepam [Valium] 5 mg PO 4X/DAY PRN PRN #30 tab PRN Reason: Spasms Fluconazole 100 mg PO QDAY #14 tab Gauze Bandage [Gauze Pads] 4 bandage TP .QDAILY #120 bandage HYDROmorphone tablet [Dilaudid] 2 - 4 mg PO 4X/DAY PRN PRN 7 Days #60 tab PRN Reason: Pain proMETHazine tablet [Phenergan tablet] 25 mg PO 4X/DAY PRN PRN #30 tab PRN Reason: NAUSEA/VOMITING Silver/Hydrocolloid Dressing [Aquacel-Ag W-Hydrofiber Dress] 1 bandage TP .QDAILY 30 Days #15 bandage Docusate Sodium [Colace] 100 mg PO BID #60 cap Clindamycin HCl 300 mg PO TID #42 cap Primary Care Physician: Aj Staley MD [Primary Care Provider] - Please Follow Up With: Phoenix Boswell MD When: tomorrow 05/22/18 at 430 pm. Call [phone] if questions. Please Follow Up With: Phoenix Boswell MD When: 2-3 weeks at Wound Center. Call [phone] for appt. Proposed Discharge Date: 05/21/18
--- NOTE | 2018-05-21 14:37 | DCINST_ITS ---
You will use the following diet at home:: Calorie/Carbohydrate Controlled ( specify 1200, 1400, etc) Discharge Activity: May Not Drive, May Shower May shower in (days): 1 - may shower at the time of the dressing changes. May resume sexual activity in: 10-14 days Weight Bearing Status: Weight bearing as tolerated Lifting Restrictions: 20 lbs. Keep extremity elevated above heart level: - - elevate head. Call your doctor if your incision/area has: Continuous Slow Oozing, Sudden Increased Bleeding, Increased Pain/ Swelling, Increased Redness, Foul Smelling Discharge, Swelling at the incision site Call your doctor if you observe: Fever of 101 or Higher, Coldness, Increased Pain, Shortness of breath, Chest pain, Calf discomfort, Uncontrolled pain Suture Line Care: - - daily dressing changes with Aquacel Silver. Change Dressing in (Days):: 1 - Silver dressing changes daily. Cleanse incision/area with: Soap & Water - may cleanse the wound with soap and water at the time of the dressing change., - - may get wound wet in the shower at the time of the dressing change. Additional Dressing/Incision Instructions:: Home Health to assist with the Silver dressing changes daily with followed by 4x4 gauze. May wash the wound with soap and water at the time of the dressing change. Instructions: Serotonin Allergies/Adverse Reactions: Allergies lamotrigine [From Lamictal] Allergy (Mild, Verified 05/10/18 15:29) Rash adhesive tape Allergy (Verified 05/10/18 15:29) Rash Medications to take at Discharge Buspirone HCl [Buspar] 20 mg PO TID 01/18/14 Clonidine HCl [Catapres] 0.1 mg PO DAILY 01/18/14 Duloxetine Hcl [Cymbalta] 90 mg PO DAILY 01/18/14 Metformin HCl [Glucophage] 1,000 mg PO BIDCM 01/18/14 Tizanidine HCl [Zanaflex] 4 mg PO 4X/DAY 01/18/14 glipiZIDE [Glucotrol] 15 mg PO DAILY@0730 01/18/14 Quetiapine Fumarate [Seroquel XR] 800 mg PO QHS 04/25/14 Meloxicam [Mobic] 7.5 mg PO DAILY 01/14/16 Spironolactone [Aldactone] 100 mg PO DAILY 01/14/16 Norgestrel-Ethinyl Estradiol [Cryselle-28 Tablet] 1 tab PO DAILY 01/20/16 Cecilia Carbonate [Cecilia Carbonate ER] 300 mg PO BID 05/10/16 gabapentin 300 mg capsule 300 mg PO 4X/DAY cap 12/01/17 Lubiprostone [Amitiza] 24 mcg PO BID 01/16/18 Omeprazole [Prilosec] 20 mg PO DAILY 01/16/18 insulin aspart U-100 100 unit/mL subcutaneous solution See Label Instructions SC TID ml 02/14/18 insulin glargine (U-100) 100 unit/mL subcutaneous solution 10 unit SC QHS Albuterol Aerosols [Ventolin Aerosols] 2.5 mg INHALATION Q2H PRN PRN vial.neb. 05/21/18 Clindamycin HCl 300 mg PO TID #42 cap 05/21/18 Diazepam [Valium] 5 mg PO 4X/DAY PRN PRN #30 tab 05/21/18 Docusate Sodium [Colace] 100 mg PO BID #60 cap 05/21/18 Fluconazole 100 mg PO QDAY #14 tab 05/21/18 Gauze Bandage [Gauze Pads] 4 bandage TP .QDAILY #120 bandage 05/21/18 Glucerna Shake 120 ml PO TIDCM liquid 05/21/18 HYDROmorphone tablet [Dilaudid] 2 - 4 mg PO 4X/DAY PRN PRN 7 Days #60 tab Insulin Lispro [Humalog KwikPen] See Protocol SC TIDAC insuln.pen 05/21/18 Nicotine [Nicoderm] 14 mg TRANSDERM. DAILY patch 05/21/18 Pantoprazole Sodium [Protonix] 20 mg PO DAILY tablet 05/21/18 Quetiapine Fumarate [Seroquel] 400 mg PO BID tablet 05/21/18 Silver/Hydrocolloid Dressing [Aquacel-Ag W-Hydrofiber Dress] 1 bandage TP .QDAILY 30 Days #15 bandage 05/21/18 busPIRone [Buspar] 5 mg PO TID tablet 05/21/18 busPIRone [Buspar] 15 mg PO TID tablet 05/21/18 proMETHazine tablet [Phenergan tablet] 25 mg PO 4X/DAY PRN PRN #30 tab 05/21/18 The following prescriptions were given: Diazepam [Valium] 5 mg PO 4X/DAY PRN PRN #30 tab PRN Reason: Spasms Fluconazole 100 mg PO QDAY #14 tab Gauze Bandage [Gauze Pads] 4 bandage TP .QDAILY #120 bandage HYDROmorphone tablet [Dilaudid] 2 - 4 mg PO 4X/DAY PRN PRN 7 Days #60 tab PRN Reason: Pain proMETHazine tablet [Phenergan tablet] 25 mg PO 4X/DAY PRN PRN #30 tab PRN Reason: NAUSEA/VOMITING Silver/Hydrocolloid Dressing [Aquacel-Ag W-Hydrofiber Dress] 1 bandage TP .QDAILY 30 Days #15 bandage Docusate Sodium [Colace] 100 mg PO BID #60 cap Clindamycin HCl 300 mg PO TID #42 cap Primary Care Physician: Aj Staley MD [Primary Care Provider] - Please Follow Up With: Phoenix Boswell MD When: tomorrow 05/22/18 at 430 pm. Call [phone] if questions. Please Follow Up With: Phoenix Boswell MD When: 2-3 weeks at [facility]ound Center. Call [phone] for appt. Proposed Discharge Date: 05/21/18
--- NOTE | 2018-05-21 14:40 | NURSING ---
Spoke with Nishi Guevara CM who states that pt is ok to be discharged today 05/21 and that she can set up home health tomorrow 05/22. Dr. Boswell aware and states that if pt's mother is not able to change dressing, that pt can come to his office tomorrow and he will change dressing there. Nishi asked to confirm with patient that we have correct phone #. Vinita TAN confirmed with pt that number listed is accurate.
--- NOTE | 2018-05-22 16:26 | CASEMGMT ---
DOMINICK BARRIGA setup HHC with [facility] and they are able to accept the patient. DOMINICK BARRIGA attempted to call patient to update on HHC setup. Voice message left with company name and number.
== END 2018-05-21 15:35 | disposition home health service (06) ==
LOC: MS3 05-21 01:59 → SDC 05-23 09:20 → MS3 05-23 10:41
PROVIDERS: Anesthesiology; Admitting Provider Surgery; Family Provider Family Medicine; PCP Family Medicine; Visit Provider Surgery
PROC: (CPT 15004; principal; 2018-05-19 08:25)
DX: L73.2 Hidradenitis suppurativa (principal); M54.2 Cervicalgia; F17.200 Nicotine dependence, unspecified, uncomplicated; Z79.899 Other long term (current) drug therapy; E11.65 Type 2 diabetes mellitus with hyperglycemia; E66.01 Morbid (severe) obesity due to excess calories; Z68.38 Body mass index [BMI] 38.0-38.9, adult; Z71.3 Dietary counseling and surveillance; F41.9 Anxiety disorder, unspecified; Z79.84 Long term (current) use of oral hypoglycemic drugs; G89.4 Chronic pain syndrome; F31.9 Bipolar disorder, unspecified; D64.9 Anemia, unspecified; E11.622 Type 2 diabetes mellitus with other skin ulcer; L97.912 Non-pressure chronic ulcer of unspecified part of right lower leg with fat layer exposed; K21.9 Gastro-esophageal reflux disease without esophagitis; E78.5 Hyperlipidemia, unspecified; M19.90 Unspecified osteoarthritis, unspecified site; I10 Essential (primary) hypertension; J45.909 Unspecified asthma, uncomplicated
CPT/HCPCS: 15004; 21501; 36415; 80048; 81025; 82962; 83036; 84134; 85027; 87070; 87075; 87076; 87077; 87102; 87186; 87205; 87206; 87640; 88304; 93005; 94640; 96365; 96366; 96375; 96376; 97802; 99218; J7120; A4216; G0378; G0379; J2405

== ENCOUNTER 2018-05-23 15:53 | Emergency (ER) | payer MEDICARE, MEDICAID, SELFPAY ==
[2018-05-23 15:54] VITALS: BP 144/77; PULSE 114; RESP 18; TEMP 37.2; O2SAT 99; BMI 39.9
--- NOTE | 2018-05-23 16:34 | ED.DCSUM_ITS ---
- ER Visit Summary Date of Service: 05/23/18 Chief Complaint: Patient presents with a chief complaint History of Present Illness: The patient is a 32 F states that on May 20 she had a incision and drainage by Dr. robinson Garcia for hidradenitis supra view of the neck. Cultures grew out Staphylococcus epidermidis. She is on clindamycin. Patient states that home health came out to her place today and noted that she had a fever of 102 and administered 400 mg of Advil. The patient states that she has a cough with sputum production. She does not feel significantly short of breath. She has not moved her bowels but is passing gas. She notes a long history of constipation and states that her abdomen does not feel bad. Physical Examination: Temperature 99 degrees blood pressure 147/77 heart rate 114 respirations are 18 pulse ox is 95% on room air Gen: Well-nourished well-developed Head: Normocephalic atraumatic Eyes: Perrl EOMI ENT: TMs clear no rhinorrhea moist mucous membranes Neck: Supple no lymphadenopathy no JVD healing incision and drainage site with no significant erythema CVS: Regular rate and tachycardic rhythm no murmurs normal S1-S2 Respiratory: No distress bilateral wheezing and rhonchi chest nontender Abdomen: Soft nontender nondistended normal bowel sounds no masses Back: Nontender Extremity: Nontender no edema Skin: Normal color no rash Neuro: alert orientated ?3 CN II-XII intact normal strength sensation reflexes gait cerebellar Psych: Normal affect normal mood Test Results: White count is 9.5 hemoglobin 11.2. Glucose of 352. Urinalysis normal. Blood cultures obtained. Chest x-ray shows changes consistent with atelectasis and reactive airway. Emergency Department Course and Treatment: Patient received breathing treatments as well as Motrin. I believe the source is her lungs and not pneumonia. Patient is encouraged to get up and move around. I would encourage fever control with Tylenol and Motrin. Patient should use her aerosols every 2- 4 hours. Return if worsening or concerns. Impression: 1. Postoperative fever 2. Atelectasis This note was generated with [employer] dictation software. It may contain incorrect words, spelling, and punctuation that were not noted in review of the chart prior to signing ED Disposition - Plan for ED Patient: Disposition: Home or Assisted Living Chief Complaint: Fever Instructions: ED Atelectasis Referrals: Phoenix Boswell MD [STAFF PHYSICIAN] - Keep Kelley appointment Additional Instructions: Treat your fever with 1000 mg of Tylenol and or 800 mg of Motrin every 6 hours. It would appear your fever is coming from your lungs which is most likely atelectasis. Encourage getting up and moving. Use albuterol aerosols every 2-4 hours to help improve aeration of the lungs Return if worsening or concerns.
[2018-05-23] MEDS: Ibuprofen 200 MG Tablet 400 MG PO (16:40)
[2018-05-23] MEDS: Albuterol 2.5 MG/3 ML VIAL.NEB. INHALATION (16:41)
[2018-05-23] MEDS: Ipratropium/Albuterol Sulfate 3 ML AMPUL.NEB INHALATION (16:41)
[2018-05-23 16:42] VITALS: PULSE 101; RESP 16; O2SAT 98
[2018-05-23] MEDS: 0.9% Normal Saline 1,000 ML 1000 ML IV (17:07)
[2018-05-23 17:18] LABS: Bacteria 0 SEEN /hpf (None Seen); Mucous, Urine 0 SEEN /hpf (<or=2+); Red Blood Cells-Urine 0 SEEN /hpf (0-5); White Blood Cells 0 SEEN /hpf (0-5)
[2018-05-23 17:20] LABS: Absolute Lymphocyte Count 2.75 X10^3/ul (0.83-4.51); Absolute Neutrophil Count 5.7 X10^3/uL (2.0-7.7); Basophil# 0.04 X10^3/uL; Basophil% 0.4 % (0-1); Color, Urine Yellow (Yellow); Eosinophils% 3.2 % (0-5); Glucose, Dipstick 1000 mg/dl (Normal); Hematocrit 35.3 % (37-47); Hemoglobin 11.2 g/dl (12.0-15.0); Ketone-Dipstick Negative (Negative); Leukocyte Esterase-Dipstick Negative /ul (Negative); Lymphocyte # 2.75 X10^3/ul (4.0); Lymphocyte % 29.1 % (19-41); Mean Corp Hgb Conc 31.7 g/gl (32-36); Mean Corpuscular Hgb 30.1 pg (27.0-32.0); Mean Corpuscular Volume 94.9 fL (81-99); Mean Platelet Vol. 9.8 fl (6.2-12.0); Monocyte# 0.58 X10^3/uL; Monocyte% 6.1 % (0-10); Neutrophil # 5.72 X10^3/uL (2.7-7.7); Neutrophil % 60.6 % (47-70); Nitrite-Dipstick Negative (Negative); Occult Blood-Urine Negative /ul (Negative); Platelet Count 285 K/mm3 (150-450); Protein-Dipstick Negative (Negative); RBC Distribution Width CV 14.9 % (11.6-14.6); Red Blood Count 3.72 M/mm3 (4.2-5.4); Specific Gravity, Urine 1.005 (1.002-1.030); Urine Bilirubin Dipstick Negative (Negative); Urine Clarity Clear (Clear); Urine Urobilinogen Normal (Normal); White Blood Count 9.5 K/mm3 (4.4-11.0)
[2018-05-23 17:23] LABS: POSITIVE COUNT NO; POSITIVE DIFFERENTIAL NO; POSITIVE MORPHOLOGY NO
--- NOTE | 2018-05-23 17:30 | RAD_ITS ---
STUDY: X-RAY CHEST REASON FOR EXAM: Female, 32 years old. Neck surgery several days ago, fever today. TECHNIQUE: PA and lateral views of the chest. COMPARISON: Prior study of January 16, 2018 FINDINGS: There is right perihilar peribronchial cuffing. There is a small left-sided effusion. Normal size heart. Normal mediastinum and true. Normal visualized pulmonary arteries. Normal visualized aortic arch and descending thoracic aorta. Normal visualized thoracic spine. Normal visualized ribs, clavicles, and shoulders. There is no demonstrated abnormality of the visualized soft tissue structures of the upper abdomen. RAD/Chest PA and Lateral IMPRESSION: Right perihilar peribronchial cuffing which may be associated with bronchitis or bronchospastic disease. This represents a new interval finding. Small left-sided effusion. Is no evidence of tony infiltrate or atelectasis. Electronically Signed: Roly Candelario MD at 18:32 EDT , Service support ,
[2018-05-23 17:32] LABS: Squamous Epithelial Cells - UA 0-5 SEEN /hpf (5-10)
[2018-05-23 17:36] LABS: ALB/GLOB Ratio 0.9 RATIO (0.9-2.4); AST(SGOT) 20 U/L (15-37); Alanine Aminotransfer ALT/SGPT 24 U/L (13-56); Albumin, Serum 3.5 g/dL (3.2-5.0); Alkaline Phosphatase 103 U/L (45-117); Anion Gap 6 (5-15); BUN 7 mg/dL (7-18); BUN/Creat Ratio 7.8 RATIO (10-20); Calcium,Total 8.6 mg/dL (8.5-10.1); Chloride 99 mmol/L (98-107); EST Glomerular Filtration Rate 77 mL/min (>60); Est Glom Filt Rate - Afr Amer 93 mL/min (>60); Globulin 3.9 g/dL (2.2-4.2); Glucose 352 mg/dL (74-106); Potassium 4.1 mmol/L (3.5-5.1); Protein, Total 7.4 g/dL (6.4-8.2); Sodium Level 137 mmol/L (136-145)
--- NOTE | 2018-05-23 18:36 | ED.RN ---
pt asks for pain medication following this rn starting pt iv. this rn informed dr. mcintyre, no new medication orders at this time. will continue to monitor.
[2018-05-23 18:43] VITALS: RESP 14
[2018-05-23 19:12] VITALS: BP 146/90; PULSE 102; RESP 16; O2SAT 100
--- NOTE | 2018-05-23 19:13 | ED.RN ---
pt given written and verbal discharge instructions and verbalizes understanding. pt denies any further questions. iv d/c and covered [id number] gauze dressing. minimal bleeding noted. pt ambulates out of dept. by self.
== END 2018-05-23 19:19 | disposition home or self-care (01) ==
PROVIDERS: Emergency Provider Emergency Medicine; Family Provider Family Medicine; PCP Family Medicine
DX: J98.11 Atelectasis (principal); R50.82 Postprocedural fever; J45.909 Unspecified asthma, uncomplicated; E11.9 Type 2 diabetes mellitus without complications; K21.9 Gastro-esophageal reflux disease without esophagitis; I10 Essential (primary) hypertension; M19.90 Unspecified osteoarthritis, unspecified site; Z72.0 Tobacco use; Z79.899 Other long term (current) drug therapy; F31.9 Bipolar disorder, unspecified; Z79.4 Long term (current) use of insulin
CPT/HCPCS: 71046; 80053; 81001; 85025; 87040; 94640; 96360; 96361; 99285; J7030; A4216

== ENCOUNTER 2018-06-05 09:08 | Outpatient (RCR) | payer MEDICARE, SELFPAY ==
[2018-06-05 09:41] VITALS: BP 124/70; PULSE 113; RESP 20; TEMP 35.4; BMI 38.9
--- NOTE | 2018-06-05 23:52 | PCM.WC.PN ---
Type of Wound Date of Service: 06/05/18 Chief Complaint: Open surgical hidradenitis wound posterior neck/occipital scalp. History of Wound: Surgery 05/19/18 - Surgical preparation posterior neck/occipital scalp with incision and drainage and excisional debridement recurrent hidradenitis abscess (31.5 cm2). Wound care - Silver. Operative culture - Staphylococcus aureus and Atopobium vaginae. She was placed on Cleocin. Prealbumin from 05/20/18 was 19.4. She takes nutritional supplementation with protein to help the healing process. her HgbA1c from 05/16/18 was 8.8. Today she denies fever. Her appetite is good. Progress of Wound: Improved. - Physical Exam Vital Signs Temp Pulse Resp BP 95.8 F L 113 H 20 H 124/70 H 06/05/18 09:41 06/05/18 09:41 06/05/18 09:41 06/05/18 09:41 Wound Measurements and Assessment WC - Nurse 1 - General Ulcer Measurement Start: 06/05/18 09:41 Freq: Status: Active Protocol: Activity Type Activity Date Activity User E-Sign Co-Sign Detail Recorded Client Recorded Date Recorded By Document 06/05/18 09:41 DL [id number] 06/05/18 09:57 DL 06/05/18 09:41 Wound Center Nurse 1 [Ulcer Assessment] #7 Post Neck -Current Size (cm) - Length 4 -Current Size (cm) - Width 8 -Current Size (cm) - Depth 0.5 -Total Square Cm 32 -Photo Taken Yes -Classification - Thickness Full Thickness without Exposed Support Structure -Exudate Amt Large (67-100%) -Exudate Type Serosanguineous -Wound Margin Distinct, Outline Attached -Granulation Amt Large (67-100%) -Granulation Quality [place] Red -Necrosis Amt Medium (34-66%) -Necrotic Tissue Type Adherent Slough -Structure Exposed N/A -Texture (Lakisha-wound Skin Appearance) Scarring -Moisture (Lakisha-wound Skin Appearance No Abnormality ) -Color (Lakisha-wound Skin Appearance) No Abnormality -Temperature (Lakisha-wound Skin No Abnormality Appearance) (Pt Warm) -Tenderness on Palpation (Lakisha-wound No Skin Appearance) -Ulcer Cleansing Wound Cleanser -Foul Odor after Cleansing No -Anesthetic Used 4% Lidocaine Solution WC - Nurse 2 - General Ulcer CM Notes Start: 06/05/18 09:41 Freq: Status: Active Protocol: Activity Type Activity Date Activity User E-Sign Co-Sign Detail Recorded Client Recorded Date Recorded By Document 06/05/18 10:16 [id number] 06/05/18 10:19 06/05/18 10:16 Wound Center Nurse 2 [Procedure/Treatment] -Time 10:17 -Correct Patient Yes -Correct Side, Site, Position Yes -Correct Procedure Yes -Procedure Performed Yes -Type of Procedure Debridement -Clinical Debridement Muscle -Post Debridement Size (cm) - Length 4.1 -Post Debridement Size (cm) - Width 8.1 -Post Debridement Size (cm) - Depth 0.5 -Total Square Cm 33.21 -Wound/Ulcer Outcome Not Healed -Ulcer Cleansing Rinsed/ Irrigated with Saline -Foul Odor after Cleansing No -Bioengineered Tissue No -Topical Lidocaine (%) 4 -Bleeding Controlled with Pressure -Treatment Response Procedure Tolerated Well [See Physician Procedure note for Specifics] Pain Scale: 0-10 Numeric [Pain] -Is Patient Pain Free? Yes Debridement Note Post-Debridement Measurements/Treatment WC - Nurse 2 - General Ulcer CM Notes Start: 06/05/18 09:41 Freq: Status: Active Protocol: Activity Type Activity Date Activity User E-Sign Co-Sign Detail Recorded Client Recorded Date Recorded By Document 06/05/18 10:16 [id number] 06/05/18 10:19 06/05/18 10:16 Wound Center Nurse 2 #7 Post Neck -Time 10:17 -Correct Patient Yes -Correct Side, Site, Position Yes -Correct Procedure Yes -Procedure Performed Yes -Type of Procedure Debridement -Clinical Debridement Muscle -Post Debridement Size (cm) - Length 4.1 -Post Debridement Size (cm) - Width 8.1 -Post Debridement Size (cm) - Depth 0.5 -Total Square Cm 33.21 -Wound/Ulcer Outcome Not Healed -Ulcer Cleansing Rinsed/ Irrigated with Saline -Foul Odor after Cleansing No -Bioengineered Tissue No -Topical Lidocaine (%) 4 -Bleeding Controlled with Pressure -Treatment Response Procedure Tolerated Well Pain Scale: 0-10 Numeric Is Patient Pain Free? Yes Wound debrided: #7 Posterior neck. Laterality: Not Applicable Wound Grade/Stage: 3. Type of Debridement: Excisional debridement Anesthesia Used: 4% Lidocaine Solution Depth: Down to and including healthy tissue, in the subcutaneous layer Percentage of wound debrided: 100 Instrument Used: 7mm curette Tissue Removed: subcutaneous tissue and muscle. Severity: Fat Layer Exposed - muscle is exposed. Amount of bleeding with debridement: Mild Bleeding Controlled with: Pressure Patient tolerated procedure well Assessment/Plan Assessment: 1. Open surgical hidradenitis wound posterior neck and occipital scalp. 2. Recurrent hidradenitis abscess posterior neck and occipital scalp. 3. Chronic neck pain. 4. Smoker. 5. Diabetes mellitus. 6. s/p surgical preparation posterior neck/occipital scalp with incision and drainage and excisional debridement recurrent hidradenitis abscess (31.5 cm2). Plan: Continue Silver dressing changes daily. Continue Cleocin antibiotics for Staphylococcus aureus and Atopobium vaginae. Prealbumin from 05/20/18 was 19.4. Encourage nutritional supplementation with protein to help the healing process. Her HgbA1c on 05/16/18 was 8.8. Before we can proceed with a skin graft, the HgbA1c has to be less than 8. Renewed her Dilaudid for pain (50 tabs). Renewed her Valium for spasm (30 tabs). Followup one week in the office. Followup 3 weeks at the Wound Center.
== END 2018-06-20 23:59 ==
LOC: WC 09:08
PROVIDERS: Family Provider Family Medicine; PCP Family Medicine; Visit Provider Surgery
DX: L73.2 Hidradenitis suppurativa (principal); S60.512A Abrasion of left hand, initial encounter; S60.511A Abrasion of right hand, initial encounter; W55.01XA Bitten by cat, initial encounter; E11.9 Type 2 diabetes mellitus without complications; F17.200 Nicotine dependence, unspecified, uncomplicated; L02.512 Cutaneous abscess of left hand
CPT/HCPCS: 11043; 11046; 99213; G0463

== ENCOUNTER 2018-06-26 11:11 | Outpatient (RCR) | payer MEDICARE, SELFPAY ==
[2018-06-21 01:25] VITALS: BP 124/70; PULSE 113; RESP 20; TEMP 35.4
[2018-06-26 11:29] VITALS: BP 131/58; PULSE 106; RESP 18; TEMP 37.1
--- NOTE | 2018-06-26 17:17 | PCM.WC.PN ---
Type of Wound Date of Service: 06/26/18 Chief Complaint: Nonhealing hidradenitis ulcer posterior neck/occipital scalp. History of Wound: Surgery 05/19/18 - Surgical preparation posterior neck/occipital scalp with incision and drainage and excisional debridement recurrent hidradenitis abscess (31.5 cm2). Wound care - Silver. Operative culture - Staphylococcus aureus and Atopobium vaginae. She was placed on Cleocin and has finished them. Prealbumin from 05/20/18 was 19.4. She takes nutritional supplementation with protein to help the healing process. She had a repeat HgbA1c from 06/21/18 was 8.7. She was scheduled for skin grafting this week and that will need to be cancelled until her HgbA1c is less than 8. Today she denies fever. Her appetite is good. Progress of Wound: Improved. - Physical Exam Vital Signs Temp Pulse Resp BP 98.7 F 106 H 18 131/58 H 06/26/18 11:29 06/26/18 11:29 06/26/18 11:29 06/26/18 11:29 Wound Measurements and Assessment WC - Nurse 1 - General Ulcer Measurement Start: 06/26/18 11:17 Freq: Status: Active Protocol: Activity Type Activity Date Activity User E-Sign Co-Sign Detail Recorded Client Recorded Date Recorded By Document 06/26/18 11:29 [id number] 06/26/18 11:31 06/26/18 11:29 Wound Center Nurse 1 [Ulcer Assessment] #7 Post Neck -Combined with other wound No -Current Size (cm) - Length 0.9 -Current Size (cm) - Width 5.2 -Current Size (cm) - Depth 0.1 -Total Square Cm 4.68 -Photo Taken No -Epithelialization Small 1-33% -Tunneling No -Undermining/Tunneling No -Circular Undermining No -Exudate Amt Small (1-33%) -Exudate Type Serosanguineous -Wound Margin Distinct, Outline Attached -Granulation Amt Medium (34-66%) -Granulation Quality [place] Red -Slough/Fibrin Yes -Necrosis Amt None Present (0 %) -Necrotic Tissue Type Adherent Slough -Structure Exposed None/Limited to Skin Breakdown -Texture (Lakisha-wound Skin Appearance) Assessed Scarring -Moisture (Lakisha-wound Skin Appearance No Abnormality ) Assessed -Color (Lakisha-wound Skin Appearance) No Abnormality Assessed -Temperature (Lakisha-wound Skin No Abnormality Appearance) (Pt Warm) -Tenderness on Palpation (Lakisha-wound No Skin Appearance) -Ulcer Cleansing Rinsed/ Irrigated with Saline -Foul Odor after Cleansing No -Anesthetic Used 4% Lidocaine Solution [Edema Assessment] -Lower Limb Edema Present NA - Nurse 2 - General Ulcer CM Notes Start: 06/26/18 11:17 Freq: Status: Active Protocol: Activity Type Activity Date Activity User E-Sign Co-Sign Detail Recorded Client Recorded Date Recorded By Document 06/26/18 12:25 [id number] 06/26/18 12:27 06/26/18 12:25 Wound Center Nurse 2 [Procedure/Treatment] #7 Post Neck -Time 12:26 -Correct Patient Yes -Correct Side, Site, Position Yes -Correct Procedure Yes -Procedure Performed Yes -Type of Procedure Debridement -Clinical Debridement Subcutaneous -Post Debridement Size (cm) - Length 1.0 -Post Debridement Size (cm) - Width 5.2 -Post Debridement Size (cm) - Depth 0.1 -Total Square Cm 5.20 -Wound/Ulcer Outcome Not Healed -Ulcer Cleansing Rinsed/ Irrigated with Saline -Foul Odor after Cleansing No -Bioengineered Tissue No -Bleeding Controlled with Pressure -Treatment Response Procedure Tolerated Well [See Physician Procedure note for Specifics] Pain Scale: 0-10 Numeric [Pain] -Is Patient Pain Free? Yes Debridement Note Post-Debridement Measurements/Treatment - Nurse 2 - General Ulcer CM Notes Start: 06/26/18 11:17 Freq: Status: Active Protocol: Activity Type Activity Date Activity User E-Sign Co-Sign Detail Recorded Client Recorded Date Recorded By Document 06/26/18 12:25 [id number] 06/26/18 12:27 06/26/18 12:25 Wound Center Nurse 2 #7 Post Neck -Time 12:26 -Correct Patient Yes -Correct Side, Site, Position Yes -Correct Procedure Yes -Procedure Performed Yes -Type of Procedure Debridement -Clinical Debridement Subcutaneous -Post Debridement Size (cm) - Length 1.0 -Post Debridement Size (cm) - Width 5.2 -Post Debridement Size (cm) - Depth 0.1 -Total Square Cm 5.20 -Wound/Ulcer Outcome Not Healed -Ulcer Cleansing Rinsed/ Irrigated with Saline -Foul Odor after Cleansing No -Bioengineered Tissue No -Bleeding Controlled with Pressure -Treatment Response Procedure Tolerated Well Pain Scale: 0-10 Numeric Is Patient Pain Free? Yes Wound debrided: #7 Posterior neck. Laterality: Not Applicable Wound Grade/Stage: 3. Type of Debridement: Excisional debridement Anesthesia Used: 4% Lidocaine Solution Depth: Down to and including healthy tissue, in the subcutaneous layer Percentage of wound debrided: 100 Instrument Used: 7mm curette Tissue Removed: subcutaneous tissue. Severity: Fat Layer Exposed Amount of bleeding with debridement: Mild Bleeding Controlled with: Pressure Patient tolerated procedure well Assessment/Plan Assessment: 1. Nonhealing hidradenitis ulcer posterior neck and occipital scalp. 2. Recurrent hidradenitis abscess posterior neck and occipital scalp. 3. Chronic neck pain. 4. Smoker. 5. Diabetes mellitus. 6. s/p surgical preparation posterior neck/occipital scalp with incision and drainage and excisional debridement recurrent hidradenitis abscess (31.5 cm2). Plan: Continue Silver dressing changes daily. She has finished the Cleocin antibiotics for Staphylococcus aureus and Atopobium vaginae. Prealbumin from 05/20/18 was 19.4. Encourage nutritional supplementation with protein to help the healing process. Her repeat HgbA1c on 06/21/18 was 8.7. Before we can proceed with a skin graft, the HgbA1c has to be less than 8. Therefore her skin graft surgery this week will be cancelled. Renewed her Dilaudid for pain (30 tabs). Followup 2 weeks in the office. Followup 4 weeks at the Wound Center.
== END 2018-07-21 23:59 ==
LOC: WC 11:11
PROVIDERS: Family Provider Family Medicine; PCP Family Medicine; Visit Provider Surgery
DX: L73.2 Hidradenitis suppurativa (principal); L02.512 Cutaneous abscess of left hand; S60.512A Abrasion of left hand, initial encounter; S60.511A Abrasion of right hand, initial encounter; W55.01XA Bitten by cat, initial encounter; E11.9 Type 2 diabetes mellitus without complications
CPT/HCPCS: 11042

== ENCOUNTER 2018-06-30 12:07 | Inpatient (IN) | payer MEDICARE, SELFPAY ==
[2018-06-30 12:08] VITALS: BP 120/68; PULSE 108; RESP 17; TEMP 36.9; O2SAT 95; BMI 39.0
--- NOTE | 2018-06-30 13:26 | ED.VISSUMM ---
- ER Visit Summary Date of Service: 06/30/18 Chief Complaint: Hand infection History of Present Illness: The patient is a 32 F with a right hand infection. This is from a cat scratch. She was seen by Dr. Boswell on June 26 and started on Augmentin. There was a remark in the note that she may need IV antibiotics and I&D if the treatment does not work. The patient reports some mild increased redness and pain despite taking antibiotics. Denies fever or systemic symptoms. She has a history of hidradenitis suppurativa and has had a history of abscesses in the past. Physical Examination: Afebrile and vital signs unremarkable. Initial heart rate was 108. Nontoxic and in no acute distress. Right hand shows erythema, induration, and tenderness over the dorsal aspect near the webbing of the thumb. Good range of motion. Neurovascularly intact distally. No streaking or tracking of the erythema. Test Results: Labs and cultures pending. Emergency Department Course and Treatment: Patient presents with a hand infection, possible abscess from a cat scratch. Failed outpatient treatment with Augmentin. IV access was obtained. The patient was treated with vancomycin and morphine. Labs and cultures are pending. Will contact the hospitalist for further care. Nursing notified me that they were unable to draw labs. Patient gave verbal consent to femoral sticks. I did clean the area. I was unable to palpate her pulse. I did localize her vessels with the ultrasound. Her veins are deep and small. I attempted multiple times bilaterally and could not draw blood. The lab is coming to evaluate the patient for blood draw. Treatment Plan: As above Disposition: Admission Impression: 1. Right hand infection This note was generated with [employer] dictation software. It may contain incorrect words, spelling, and punctuation that were not noted in review of the chart prior to signing ED Disposition - Plan for ED Patient: Chief Complaint: Cellulitis Referrals: Aj Staley MD [Primary Care Provider] -
--- NOTE | 2018-06-30 13:41 | CM.ED ---
Attempted to perform case management initial assessment. Patient is receiving care at this time. Will reattempt as time allows.
[2018-06-30] MEDS: Morphine 4 MG/ML Syringe IV (13:54)
[2018-06-30 14:37] VITALS: BMI 39.0
[2018-06-30] MEDS: HYDROmorphone 1 MG/ML Syringe IV (14:58)
[2018-06-30 14:59] VITALS: BP 116/75; PULSE 88; RESP 18; O2SAT 95
[2018-06-30 15:09] LABS: Absolute Lymphocyte Count 4.04 X10^3/ul (0.83-4.51); Absolute Neutrophil Count 4.4 X10^3/uL (2.0-7.7); Basophil# 0.09 X10^3/uL; Basophil% 0.8 % (0-1); Eosinophil# 1.59 X10^3/uL; Eosinophils% 14.8 % (0-5); Hemoglobin 10.8 g/dl (12.0-15.0); Lymphocyte # 4.04 X10^3/ul (4.0); Lymphocyte % 37.5 % (19-41); Mean Corp Hgb Conc 30.9 g/gl (32-36); Mean Corpuscular Hgb 28.6 pg (27.0-32.0); Mean Corpuscular Volume 92.6 fL (81-99); Mean Platelet Vol. 9.3 fl (6.2-12.0); Monocyte% 5.6 % (0-10); Neutrophil # 4.43 X10^3/uL (2.7-7.7); Neutrophil % 41.2 % (47-70); Platelet Count 363 K/mm3 (150-450); RBC Distribution Width CV 15.1 % (11.6-14.6); RBC Distribution Width SD 51.6 fl (35.1-43.9); Red Blood Count 3.78 M/mm3 (4.2-5.4); White Blood Count 10.8 K/mm3 (4.4-11.0)
[2018-06-30 15:10] LABS: Differential Indicated SCAN CRITERIA MET; POSITIVE COUNT NO; POSITIVE DIFFERENTIAL NO; POSITIVE MORPHOLOGY YES
[2018-06-30 15:15] LABS: Anion Gap 8 (5-15); BUN 8 mg/dL (7-18); BUN/Creat Ratio 10.9 RATIO (10-20); Calcium,Total 8.9 mg/dL (8.5-10.1); Chloride 106 mmol/L (98-107); Creatinine, Serum 0.74 mg/dL (0.55-1.02); EST Glomerular Filtration Rate 96 mL/min (>60); Est Glom Filt Rate - Afr Amer 116 mL/min (>60); Glucose 150 mg/dL (74-106); Potassium 4.2 mmol/L (3.5-5.1); Sodium Level 141 mmol/L (136-145)
[2018-06-30 15:29] LABS: Pregnancy, Serum, hCG Quali. NEGATIVE Negative (0-9 Nonpreg)
--- NOTE | 2018-06-30 15:45 | PCM.HP.STD ---
Problem List (1) Cellulitis of right hand Status: Acute History of Present Illness Date of Admission: 06/30/18 Chief Complaint: right hand swelling and redness. The patient is a 32 year old F who is a known cutter cut on her dorsum of her right hand. Then on Tuesday noted redness. Received antibiotics with Bactrim which she started on Tuesday. Since then the redness and swelling. Patient presented to the emergency room and was started with cellulitis. Dr. Boswell was informed and signed the take her to surgery on Tuesday for further I&D. Patient states that she has also scratched by her cat is around the same area. [] Past Medical History Past Medical History (Chronic Problems): Chronic Problems (Last Updated 02/14/18 @ 14:17 by Shreya Rondon) Hidradenitis suppurativa (Chronic) 4 cm recurrent hidradenitis posterior neck and occipital scalp Bilateral carpal tunnel syndrome (Chronic) worse on left Chronic neck pain (Chronic) Branchial cleft sinus (Chronic) History of incision and drainage (Chronic) Left side of neck 12/02/17, RIGHT BREAST ABSCESS 09/17/2014, LEFT BREAST ABSCESS 10/11/2014, INGUINAL HYDRADENITIS, AXILLARY HYDRADENITIS Diabetes (Chronic) type 2 Dx : 2012 Last exacerbation : DKA : never Hypoglycemic episode : never ER visit : 01/08 - 500+ Hydradenitis (Chronic) hidradenitis left axilla - L73.2 Morbid obesity (Chronic) Bipolar affective (Chronic) Osteoarthritis (Chronic) Chronic back pain (Chronic) Diabetic leg ulcer (Chronic) nonhealing diabetic ulcer right medial leg - E11.622 Non-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 fat layer exposed (Chronic) diabetic ulcer right medial leg - L97.912 Smoker (Chronic) 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 H/O hidradenitis suppurativa (Chronic) Z87.2 Medical History: Medical History (Last Reviewed 06/30/18 @ 15:47 by Jonny Key DO) Cat scratch of left hand with infection (Acute) S60.512A, L08.9, W55.03XA cat scratch infection dorsum left hand at proximal index finger Cat scratch of right hand with infection (Acute) S60.511A, L08.9, W55.03XA cat scratch infection dorsum right hand with extension to long finger Cat scratch (Acute) W55.03XA cat scratch infection dorsum right hand with extension to long finger cat scratch infection dorsum left hand at proximal index finger Diabetes (Chronic) E11.9 type 2 Dx : 2012 Last exacerbation : DKA : never Hypoglycemic episode : never ER visit : 01/08 - 500+ Hydradenitis (Chronic) L73.2 hidradenitis left axilla - L73.2 Morbid obesity (Chronic) E66.01 Bipolar affective (Chronic) F31.9 Osteoarthritis (Chronic) Chronic back pain (Chronic) M54.9, G89.29 Diabetic leg ulcer (Chronic) E11.622, L97.909 nonhealing diabetic ulcer right medial leg - E11.622 Non-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 fat layer exposed (Chronic) L97.912 diabetic ulcer right medial leg - L97.912 Smoker (Chronic) F17.200 F17.200 Open wound of left axillary region (Acute) S41.102A open surgical hidradenitis wound left axilla - S41.102A 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 compromised skin graft left axilla Abscess of sternal region (Acute) L02.213 L02.213 Sternal chest wall wound abscess Open wound of chest wall, complicated (Acute) S21.109A S21.109D open chest wall sternal wound H/O hidradenitis suppurativa (Chronic) Z87.2 Z87.2 Abscess of breast (Acute) N61.1 abscess right medial breast Alcohol abuse F10.10 Anxiety and depression F41.9, F32.9 Asthma J45.909 Back problem M53.9 Drug abuse F19.10 Frequent headaches R51 GERD (gastroesophageal reflux disease) K21.9 Hay fever J30.1 Hearing problem H91.90 Hidradenitis L73.2 LEFT INGUINAL, RIGHT AXILLARY, POSTERIOR NECK, High triglycerides E78.1 Hyperlipidemia E78.5 Kidney problem N28.9 Neuropathy G62.9 Non-healing surgical wound T81.89XA NON HEALING HIDRADENITIS WOUND POSTERIOR NECK. NON HEALING INFECTED HIDRADENITIS ULCER POSTERIOR NECK Osteoarthritis M19.90 Partial thickness burn SUPEROPOSTERIOR NECK Recurrent UTI N39.0 Sinus problem J34.9 Vision problem H54.7 HTN (hypertension) I10 Allergies lamotrigine [From Lamictal] Allergy (Mild, Verified 06/30/18 12:08) Rash adhesive tape Allergy (Verified 06/30/18 12:08) Rash Home Medications: Ambulatory Orders Medication Instructions Recorded Clonidine HCl [Catapres] 0.1 mg PO DAILY PRN PRN 01/18/14 Duloxetine Hcl [Cymbalta] 60 mg PO DAILY 01/18/14 Metformin HCl [Glucophage] 1,000 mg PO BIDCM 01/18/14 Tizanidine HCl [Zanaflex] 4 mg PO 4X/DAY 01/18/14 glipiZIDE [Glucotrol] 15 mg PO DAILY@0730 01/18/14 Quetiapine Fumarate [Seroquel XR] 800 mg PO QHS 04/25/14 Meloxicam [Mobic] 7.5 mg PO DAILY 01/14/16 Spironolactone [Aldactone] 100 mg PO DAILY 01/14/16 Norgestrel-Ethinyl Estradiol 1 tab PO DAILY 01/20/16 [Cryselle-28 Tablet] [address] Carbonate [[address] 300 mg PO BID 05/10/16 Carbonate ER] gabapentin 300 mg capsule 300 mg PO 4X/DAY cap 12/01/17 Lubiprostone [Amitiza] 24 mcg PO BID 01/16/18 Omeprazole [Prilosec] 20 mg PO DAILY 01/16/18 insulin aspart U-100 100 unit/mL See Protocol SC TIDCM ml 02/14/18 subcutaneous solution insulin glargine (U-100) 100 10 unit SC QHS 02/14/18 unit/mL subcutaneous solution HYDROmorphone tablet [Dilaudid] 2 - 4 mg PO 4X/DAY PRN PRN 7 Days 05/21/18 #60 tab proMETHazine tablet [Phenergan 25 mg PO 4X/DAY PRN PRN #30 tab 05/21/18 tablet] diazepam 5 mg tablet 5 mg PO 4X/DAY PRN #30 tab 05/31/18 Atorvastatin Calcium 20 mg PO QHS 06/21/18 promethazine 25 mg tablet 25 mg PO 4X/DAY PRN #30 tab 06/21/18 Albuterol Sulfate [Ventolin Hfa] 1 - 2 inhaler INHALATION 4X/DAY 06/30/18 PRN PRN Buspirone HCl 20 mg PO TID 06/30/18 Duloxetine Hcl [Cymbalta] 30 mg PO DAILY 06/30/18 Surgical History: Surgical History (Last Reviewed 06/30/18 @ 15:48 by Jonny Key DO) History of incision and drainage (Chronic) Z98.890 Left side of neck 12/02/17, RIGHT BREAST ABSCESS 09/17/2014, LEFT BREAST ABSCESS 10/11/2014, INGUINAL HYDRADENITIS, AXILLARY HYDRADENITIS History of section (Acute) Z98.891 History of tonsillectomy (Acute) Z98.890, Z90.89 Hidradenitis L73.2 EXCISION LEFT INGUINAL HIDRADENITIS AND PLACEMENT OF WOUND VAC (121 CM2) 02/05/2009, EXCISION RIGHT AXILLARY HIDRADENITIS AND PLACEMENT OF WOUND VAC (36 CM2) 12/08/2009, EXCISIONAL DEBRIDEMENT HIDRADENITIS POSTERIOR NECK (33 CM2) 04/25/2014, EXCISIONAL DEBRIDEMENT NONHEALING HIDRADENITIS WOUND POSTERIOR NECK WITH 10 CM SECONDARY WOUND CLOSURE 05/15/2014,INCISION AND DRAINAGE AND EXCISIONAL DEBRIDEMENT NONHEALING POSTOP INFECTED HIDRADENITIS ULCER POSTERIOR NECK (20 CM2) AND DEBRIDEMENT PARTIAL THICKNESS BURN SUPEROPOSTERIOR NECK(16 CM2) 06/26/2014, SURGICAL PREPARATION, LEFT AXILLA WITH EXCISION HIDRADENITIS (88 SQ CM) AND SURGICAL PREPARATION, RIGHT MEDIAL LEG WITH EXCISON NONHEALING DIABETIC ULCER RIGHT MEDIAL LEG AND 4 CM COMPLEX SECONDARY WOUND CLOSURE 01/20/2016, EXCISIONAL DEBRIDEMENT LEFT AXILLARY HIDRADENITIS WOUND WITH FTSG RECONSTRUCTION FROM THE RIGHT LATERAL ABDOMINAL WALL (55 CM2) AND PLACEMENT OF NPWT 02/12/2016, SURGICAL PREPARATION STERNUM CHEST WALL WOUND WITH INCISION AND DRAINAGE ABSCESS AND EXCISIONAL DEBRIDEMENT (14 CM2) 03/05/2016, CLOSURE STERNUM CHEST WALL OPEN ABSCESS WOUND WITH RHOMBOID TRANSPOSITION SKIN FLAP RECONSTRUCTION (24.5 CM2) AND SURGICAL PREPARATION RIGHT MEDIAL BREAST WITH INCISION AND DRAINAGE ABSCESS AND EXCISIONAL DEBRIDEMENT (28 CM2) 03/11/2016 [place] teeth removed K08.499 Surgical History: tonsillectomy, - Psychiatric History: Anxiety, Bipolar Smoking Status: Heavy Smoker (>10/day) Tobacco Use: Cigarettes Alcohol: None Drugs: None - *Family History Maternal Family History: Family History (Last Reviewed 06/30/18 @ 15:48 by Jonny Key DO) Grandmother Thyroid disorder Father Diabetes Heart disease Hypertension High cholesterol Mother Heart disease Hypertension High cholesterol History Items: Heart Disease, Hypertension, - Paternal Family History: Family History (Last Reviewed 06/30/18 @ 15:48 by Jonny Key DO) Grandmother Thyroid disorder Father Diabetes Heart disease Hypertension High cholesterol Mother Heart disease Hypertension High cholesterol History Items: Diabetes, Heart Disease, Hypertension Review of Systems Constitutional: Denies: Chills, Fever, Weight Change Eyes: Denies: Blurred vision, Double vision HEENT: Denies: Head Aches, Sinus Congestion, Sinus Drainage Cardiovascular: Denies: Chest Pain, Palpitations Respiratory: Denies: Cough, Shortness of breath at rest, Sputum production Gastrointestinal: Denies: Abdominal Pain, Nausea, Vomiting Genitourinary: Denies: Dysuria Musculoskeletal: Reports: - - Right hand pain Skin: Reports: - - Right hand erythema and swelling on the dorsum Neurological: Denies: Numbness, Tingling, Focal weakness Psychiatric: Denies: Anxiety, Depression Hematologic/ Lymphatic: Denies: Easy Bruising, Easy Bleeding, Hx of blood clot Comment: All review of systems are negative except as mentioned in the history of present illness and the other review of systems. VTE Information - Inpt Only VTE Present on Admission: No VTE Mechan Device Prophylaxis: None VTE Pharm Prophylaxis ordered?: Yes Patient Problems: Active and Suspected Problems (Last Updated 02/14/18 @ 14:17 by Shreya Rondon) Cellulitis of right hand (Acute) - Physical Exam General: Alert, Cooperative, No apparent distress HEENT: Atraumatic, Normocephalic Oral: Moist Mucosa, No Gingival or Mucosal Lesions/ Ulcerations Neck: No Nodes, Thyroid Normal Size and Texture Lungs: Clear to auscultation, Normal air movement, No rhonchi, No wheeze Cardiovascular: Regular rate, Regular Rhythm, Normal S1, Normal S2, No murmurs Abdomen: Bowel Sounds Present, Soft, Non Tender, Non-Distended, No Hepato-splenomegaly Extremities: No edema, No Calf Tenderness Skin: - - Some erythema on the dorsum of her right hand between her. Some swelling as well localized. No purulence could be expressed. Tender to palpation. Musculoskeletal: No Tenderness to Palpation of Joints or Extremities, No Muscle Wasting Psych/Mental Status: Normal Affect, Appropriate Vital Signs Temp Pulse Resp BP Pulse Ox 36.9 C 88 18 116/75 95 06/30/18 12:08 06/30/18 14:59 06/30/18 14:59 06/30/18 14:59 06/30/18 14:59 Oxygen Delivery Method Room Air Weight: 106.4 kg Body Mass Index (BMI) 39.0 Finger Stick Blood Glucose 239 Laboratory Tests Past 24 Hrs 06/30/18 06/30/18 06/30/18 14:45 14:45 14:45 WBC 10.8 RBC 3.78 L Hgb 10.8 L Hct 35.0 L MCV 92.6 MCH 28.6 MCHC 30.9 L RDW 15.1 H RDW Differential 51.6 H Plt Count 363 MPV 9.3 Immature Gran % (Auto) 0.100 Neut % (Auto) 41.2 L Lymph % (Auto) 37.5 [place] % (Auto) 5.6 Eos % (Auto) 14.8 H Baso % (Auto) 0.8 Absolute Neuts (auto) 4.4 Absolute Lymphs (auto) 4.04 Total Counted Pending Sodium 141 Potassium 4.2 Chloride 106 Carbon Dioxide 27.0 Anion Gap 8 BUN 8 Creatinine 0.74 Estim Creat Clear Calc 97.30 Est GFR (MDRD) Af Amer 116 Est GFR (MDRD) Non-Af 96 BUN/Creatinine Ratio 10.9 Glucose 150 H Calcium 8.9 Serum , Qual NEGATIVE Assessment/Plan All Active Problems (Last Updated 02/14/18 @ 14:17 by Shreya Rondon) Cellulitis of right hand (Acute) Muscle spasms of neck (Acute) Abscess, scalp (Acute) Folliculitis (Acute) Diabetes mellitus type 2, uncontrolled (Acute) Unspecified open wound of unspecified part of neck, subsequent encounter (Acute) Unspecified open wound of unspecified part of head, subsequent encounter (Acute) Open wound involving head with neck, complicated (Acute) Abscess of neck (Acute) History of section (Acute) History of tonsillectomy (Acute) Cat scratch of left hand with infection (Acute) Cat scratch of right hand with infection (Acute) Cat scratch (Acute) Open wound of left axillary region (Acute) Abscess of sternal region (Acute) Open wound of chest wall, complicated (Acute) Abscess of breast (Acute) 1. Right hand cellulitis Suspect secondary to the patient's cutting. Appears more like a staph infection than anything Patient will be on vancomycin Follow patient's response Dr. Boswell be on consultation in case patient is to require surgery Given the cat scratch will also add azithromycin 2. Hidradenitis suppurativa Patient's had numerous surgeries, approximately 36 involving her axilla, breasts neck and groin No acute issues at this time 3. Diabetes mellitus type 2 Continue with her home medications and sliding scale 4. DVT prophylaxis: Moderate risk. Lovenox. Code Visit Inpatient E&M: 23809 Init Hosp L2
--- NOTE | 2018-06-30 15:52 | HP.PCM_ITS ---
Problem List (1) Cellulitis of right hand Status: Acute History of Present Illness Date of Admission: 06/30/18 Chief Complaint: right hand swelling and redness. The patient is a 32 year old F who is a known cutter cut on her dorsum of her right hand. Then on Tuesday noted redness. Received antibiotics with Bactrim which she started on Tuesday. Since then the redness and swelling. Patient presented to the emergency room and was started with cellulitis. Dr. Boswell was informed and signed the take her to surgery on Tuesday for further I&D. Patient states that she has also scratched by her cat is around the same area. [] Past Medical History Past Medical History (Chronic Problems): Chronic Problems (Last Updated 02/14/18 @ 14:17 by Shreya Rondon) Hidradenitis suppurativa (Chronic) 4 cm recurrent hidradenitis posterior neck and occipital scalp Bilateral carpal tunnel syndrome (Chronic) worse on left Chronic neck pain (Chronic) Branchial cleft sinus (Chronic) History of incision and drainage (Chronic) Left side of neck 12/02/17, RIGHT BREAST ABSCESS 09/17/2014, LEFT BREAST ABSCESS 10/11/2014, INGUINAL HYDRADENITIS, AXILLARY HYDRADENITIS Diabetes (Chronic) type 2 Dx : 2012 Last exacerbation : DKA : never Hypoglycemic episode : never ER visit : 01/08 - 500+ Hydradenitis (Chronic) hidradenitis left axilla - L73.2 Morbid obesity (Chronic) Bipolar affective (Chronic) Osteoarthritis (Chronic) Chronic back pain (Chronic) Diabetic leg ulcer (Chronic) nonhealing diabetic ulcer right medial leg - E11.622 Non-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 fat layer exposed (Chronic) diabetic ulcer right medial leg - L97.912 Smoker (Chronic) 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 H/O hidradenitis suppurativa (Chronic) Z87.2 Medical History: Medical History (Last Reviewed 06/30/18 @ 15:47 by Jonny Key DO) Cat scratch of left hand with infection (Acute) S60.512A, L08.9, W55.03XA cat scratch infection dorsum left hand at proximal index finger Cat scratch of right hand with infection (Acute) S60.511A, L08.9, W55.03XA cat scratch infection dorsum right hand with extension to long finger Cat scratch (Acute) W55.03XA cat scratch infection dorsum right hand with extension to long finger cat scratch infection dorsum left hand at proximal index finger Diabetes (Chronic) E11.9 type 2 Dx : 2012 Last exacerbation : DKA : never Hypoglycemic episode : never ER visit : 01/08 - 500+ Hydradenitis (Chronic) L73.2 hidradenitis left axilla - L73.2 Morbid obesity (Chronic) E66.01 Bipolar affective (Chronic) F31.9 Osteoarthritis (Chronic) Chronic back pain (Chronic) M54.9, G89.29 Diabetic leg ulcer (Chronic) E11.622, L97.909 nonhealing diabetic ulcer right medial leg - E11.622 Non-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 fat layer exposed (Chronic) L97.912 diabetic ulcer right medial leg - L97.912 Smoker (Chronic) F17.200 F17.200 Open wound of left axillary region (Acute) S41.102A open surgical hidradenitis wound left axilla - S41.102A 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 compromised skin graft left axilla Abscess of sternal region (Acute) L02.213 L02.213 Sternal chest wall wound abscess Open wound of chest wall, complicated (Acute) S21.109A S21.109D open chest wall sternal wound H/O hidradenitis suppurativa (Chronic) Z87.2 Z87.2 Abscess of breast (Acute) N61.1 abscess right medial breast Alcohol abuse F10.10 Anxiety and depression F41.9, F32.9 Asthma J45.909 Back problem M53.9 Drug abuse F19.10 Frequent headaches R51 GERD (gastroesophageal reflux disease) K21.9 Hay fever J30.1 Hearing problem H91.90 Hidradenitis L73.2 LEFT INGUINAL, RIGHT AXILLARY, POSTERIOR NECK, High triglycerides E78.1 Hyperlipidemia E78.5 Kidney problem N28.9 Neuropathy G62.9 Non-healing surgical wound T81.89XA NON HEALING HIDRADENITIS WOUND POSTERIOR NECK. NON HEALING INFECTED HIDRADENITIS ULCER POSTERIOR NECK Osteoarthritis M19.90 Partial thickness burn SUPEROPOSTERIOR NECK Recurrent UTI N39.0 Sinus problem J34.9 Vision problem H54.7 HTN (hypertension) I10 Allergies lamotrigine [From Lamictal] Allergy (Mild, Verified 06/30/18 12:08) Rash adhesive tape Allergy (Verified 06/30/18 12:08) Rash Home Medications: Ambulatory Orders Medication Instructions Recorded Clonidine HCl [Catapres] 0.1 mg PO DAILY PRN PRN 01/18/14 Duloxetine Hcl [Cymbalta] 60 mg PO DAILY 01/18/14 Metformin HCl [Glucophage] 1,000 mg PO BIDCM 01/18/14 Tizanidine HCl [Zanaflex] 4 mg PO 4X/DAY 01/18/14 glipiZIDE [Glucotrol] 15 mg PO DAILY@0730 01/18/14 Quetiapine Fumarate [Seroquel XR] 800 mg PO QHS 04/25/14 Meloxicam [Mobic] 7.5 mg PO DAILY 01/14/16 Spironolactone [Aldactone] 100 mg PO DAILY 01/14/16 Norgestrel-Ethinyl Estradiol 1 tab PO DAILY 01/20/16 [Cryselle-28 Tablet] [place] Carbonate [[place] 300 mg PO BID 05/10/16 Carbonate ER] gabapentin 300 mg capsule 300 mg PO 4X/DAY cap 12/01/17 Lubiprostone [Amitiza] 24 mcg PO BID 01/16/18 Omeprazole [Prilosec] 20 mg PO DAILY 01/16/18 insulin aspart U-100 100 unit/mL See Protocol SC TIDCM ml 02/14/18 subcutaneous solution insulin glargine (U-100) 100 10 unit SC QHS 02/14/18 unit/mL subcutaneous solution HYDROmorphone tablet [Dilaudid] 2 - 4 mg PO 4X/DAY PRN PRN 7 Days 05/21/18 #60 tab proMETHazine tablet [Phenergan 25 mg PO 4X/DAY PRN PRN #30 tab 05/21/18 tablet] diazepam 5 mg tablet 5 mg PO 4X/DAY PRN #30 tab 05/31/18 Atorvastatin Calcium 20 mg PO QHS 06/21/18 promethazine 25 mg tablet 25 mg PO 4X/DAY PRN #30 tab 06/21/18 Albuterol Sulfate [Ventolin Hfa] 1 - 2 inhaler INHALATION 4X/DAY 06/30/18 PRN PRN Buspirone HCl 20 mg PO TID 06/30/18 Duloxetine Hcl [Cymbalta] 30 mg PO DAILY 06/30/18 Surgical History: Surgical History (Last Reviewed 06/30/18 @ 15:48 by Jonny Key DO) History of incision and drainage (Chronic) Z98.890 Left side of neck 12/02/17, RIGHT BREAST ABSCESS 09/17/2014, LEFT BREAST ABSCESS 10/11/2014, INGUINAL HYDRADENITIS, AXILLARY HYDRADENITIS History of section (Acute) Z98.891 History of tonsillectomy (Acute) Z98.890, Z90.89 Hidradenitis L73.2 EXCISION LEFT INGUINAL HIDRADENITIS AND PLACEMENT OF WOUND VAC (121 CM2) 2008, EXCISION RIGHT AXILLARY HIDRADENITIS AND PLACEMENT OF WOUND VAC (36 CM2) 12/08/2009, EXCISIONAL DEBRIDEMENT HIDRADENITIS POSTERIOR NECK (33 CM2) 2013, EXCISIONAL DEBRIDEMENT NONHEALING HIDRADENITIS WOUND POSTERIOR NECK WITH 10 CM SECONDARY WOUND CLOSURE 05/15/2014,INCISION AND DRAINAGE AND EXCISIONAL DEBRIDEMENT NONHEALING POSTOP INFECTED HIDRADENITIS ULCER POSTERIOR NECK (20 CM2 ) AND DEBRIDEMENT PARTIAL THICKNESS BURN SUPEROPOSTERIOR NECK(16 CM2) 06/26/2014 , SURGICAL PREPARATION, LEFT AXILLA WITH EXCISION HIDRADENITIS (88 SQ CM) AND SURGICAL PREPARATION, RIGHT MEDIAL LEG WITH EXCISON NONHEALING DIABETIC ULCER RIGHT MEDIAL LEG AND 4 CM COMPLEX SECONDARY WOUND CLOSURE 01/20/2016, EXCISIONAL DEBRIDEMENT LEFT AXILLARY HIDRADENITIS WOUND WITH FTSG RECONSTRUCTION FROM THE RIGHT LATERAL ABDOMINAL WALL (55 CM2) AND PLACEMENT OF NPWT 02/12/2016, SURGICAL PREPARATION STERNUM CHEST WALL WOUND WITH INCISION AND DRAINAGE ABSCESS AND EXCISIONAL DEBRIDEMENT (14 CM2) 03/05/2016, CLOSURE STERNUM CHEST WALL OPEN ABSCESS WOUND WITH RHOMBOID TRANSPOSITION SKIN FLAP RECONSTRUCTION (24.5 CM2) AND SURGICAL PREPARATION RIGHT MEDIAL BREAST WITH INCISION AND DRAINAGE ABSCESS AND EXCISIONAL DEBRIDEMENT (28 CM2) 03/11/2016 [place] teeth removed K08.499 Surgical History: tonsillectomy, - Psychiatric History: Anxiety, Bipolar Smoking Status: Heavy Smoker (>10/day) Tobacco Use: Cigarettes Alcohol: None Drugs: None - *Family History Maternal Family History: Family History (Last Reviewed 06/30/18 @ 15:48 by Jonny Key DO) Grandmother Thyroid disorder Father Diabetes Heart disease Hypertension High cholesterol Mother Heart disease Hypertension High cholesterol History Items: Heart Disease, Hypertension, - Paternal Family History: Family History (Last Reviewed 06/30/18 @ 15:48 by Jonny Key DO) Grandmother Thyroid disorder Father Diabetes Heart disease Hypertension High cholesterol Mother Heart disease Hypertension High cholesterol History Items: Diabetes, Heart Disease, Hypertension Review of Systems Constitutional: Denies: Chills, Fever, Weight Change Eyes: Denies: Blurred vision, Double vision HEENT: Denies: Head Aches, Sinus Congestion, Sinus Drainage Cardiovascular: Denies: Chest Pain, Palpitations Respiratory: Denies: Cough, Shortness of breath at rest, Sputum production Gastrointestinal: Denies: Abdominal Pain, Nausea, Vomiting Genitourinary: Denies: Dysuria Musculoskeletal: Reports: - - Right hand pain Skin: Reports: - - Right hand erythema and swelling on the dorsum Neurological: Denies: Numbness, Tingling, Focal weakness Psychiatric: Denies: Anxiety, Depression Hematologic/ Lymphatic: Denies: Easy Bruising, Easy Bleeding, Hx of blood clot Comment: All review of systems are negative except as mentioned in the history of present illness and the other review of systems. VTE Information - Inpt Only VTE Present on Admission: No VTE Mechan Device Prophylaxis: None VTE Pharm Prophylaxis ordered?: Yes Patient Problems: Active and Suspected Problems (Last Updated 02/14/18 @ 14:17 by Shreya Rondon) Cellulitis of right hand (Acute) - Physical Exam General: Alert, Cooperative, No apparent distress HEENT: Atraumatic, Normocephalic Oral: Moist Mucosa, No Gingival or Mucosal Lesions/ Ulcerations Neck: No Nodes, Thyroid Normal Size and Texture Lungs: Clear to auscultation, Normal air movement, No rhonchi, No wheeze Cardiovascular: Regular rate, Regular Rhythm, Normal S1, Normal S2, No murmurs Abdomen: Bowel Sounds Present, Soft, Non Tender, Non-Distended, No Hepato- splenomegaly Extremities: No edema, No Calf Tenderness Skin: - - Some erythema on the dorsum of her right hand between her. Some swelling as well localized. No purulence could be expressed. Tender to palpation. Musculoskeletal: No Tenderness to Palpation of Joints or Extremities, No Muscle Wasting Psych/Mental Status: Normal Affect, Appropriate Vital Signs Temp Pulse Resp BP Pulse Ox 36.9 C 88 18 116/75 95 06/30/18 12:08 06/30/18 14:59 06/30/18 14:59 06/30/18 14:59 06/30/18 14:59 Oxygen Delivery Method Room Air Weight: 106.4 kg Body Mass Index (BMI) 39.0 Finger Stick Blood Glucose 239 Laboratory Tests Past 24 Hrs 06/30/18 06/30/18 06/30/18 14:45 14:45 14:45 WBC 10.8 RBC 3.78 L Hgb 10.8 L Hct 35.0 L MCV 92.6 MCH 28.6 MCHC 30.9 L RDW 15.1 H RDW Differential 51.6 H Plt Count 363 MPV 9.3 Immature Gran % (Auto) 0.100 Neut % (Auto) 41.2 L Lymph % (Auto) 37.5 [place] % (Auto) 5.6 Eos % (Auto) 14.8 H Baso % (Auto) 0.8 Absolute Neuts (auto) 4.4 Absolute Lymphs (auto) 4.04 Total Counted Pending Sodium 141 Potassium 4.2 Chloride 106 Carbon Dioxide 27.0 Anion Gap 8 BUN 8 Creatinine 0.74 Estim Creat Clear Calc 97.30 Est GFR (MDRD) Af Amer 116 Est GFR (MDRD) Non-Af 96 BUN/Creatinine Ratio 10.9 Glucose 150 H Calcium 8.9 Serum , Qual NEGATIVE Assessment/Plan All Active Problems (Last Updated 02/14/18 @ 14:17 by Shreya Rondon) Cellulitis of right hand (Acute) Muscle spasms of neck (Acute) Abscess, scalp (Acute) Folliculitis (Acute) Diabetes mellitus type 2, uncontrolled (Acute) Unspecified open wound of unspecified part of neck, subsequent encounter (Acute) Unspecified open wound of unspecified part of head, subsequent encounter (Acute) Open wound involving head with neck, complicated (Acute) Abscess of neck (Acute) History of section (Acute) History of tonsillectomy (Acute) Cat scratch of left hand with infection (Acute) Cat scratch of right hand with infection (Acute) Cat scratch (Acute) Open wound of left axillary region (Acute) Abscess of sternal region (Acute) Open wound of chest wall, complicated (Acute) Abscess of breast (Acute) 1. Right hand cellulitis * Suspect secondary to the patient's cutting. Appears more like a staph infection than anything * Patient will be on vancomycin * Follow patient's response * Dr. Boswell be on consultation in case patient is to require surgery * Given the cat scratch will also add azithromycin 2. Hidradenitis suppurativa * Patient's had numerous surgeries, approximately 36 involving her axilla, breasts neck and groin * No acute issues at this time 3. Diabetes mellitus type 2 * Continue with her home medications and sliding scale 4. DVT prophylaxis: Moderate risk. Lovenox. Code Visit Inpatient E&M: [id number] Init Hosp L2
[2018-06-30 16:02] LABS: Anisocytosis RARE; Macrocytosis RARE; Platelet Estimate ADEQUATE (ADEQ)
[2018-06-30 16:23] VITALS: BP 89/61; PULSE 83; RESP 16; TEMP 36.6; O2SAT 95
[2018-06-30 16:25] VITALS: BMI 38.8
--- NOTE | 2018-06-30 17:15 | PCM.CONS.GEN ---
Reason for Consult Date of Consultation: 06/30/18 Reason for Consultation: Cat scratch bite abscess dorsum right hand at first web space. REFERRING PHYSICIAN: Dr. Key. BODY SHOP FLOORPERSON: Dr. Boswell. History of Present Illness: The patient is a 32 year old F with a history of diabetes mellitus sustained a cat scratch bite to the dorsum of her right hand at first web space on Tuesday. She states it is her own cat. She started developing increasing redness and swelling and pain. The next day she was started on Cleocin and then a few days later on Augmentin. Initially there was a little improvement but the symptomatology continued to worsen. She was able to move her fingers and thumb initially but on the day of admission, she states she had trouble with moving her right thumb secondary to the pain and swelling in the first web space. She denies any numbness. She denies any pain in her right palm. She denies any fever. Patient is right hand dominant. She was admitted and started on IV antibiotics with Vancomycin and Azithromycin. Initial WBC was 10.8. I was asked to evaluate this patient for surgical options for treatment. Past Medical History Past Medical History (Chronic Problems): Chronic Problems (Last Reviewed 06/30/18 @ 15:47 by Jonny Key DO) Hidradenitis suppurativa (Chronic) 4 cm recurrent hidradenitis posterior neck and occipital scalp Bilateral carpal tunnel syndrome (Chronic) worse on left Chronic neck pain (Chronic) Branchial cleft sinus (Chronic) History of incision and drainage (Chronic) Left side of neck 12/02/17, RIGHT BREAST ABSCESS 09/17/2014, LEFT BREAST ABSCESS 10/11/2014, INGUINAL HYDRADENITIS, AXILLARY HYDRADENITIS Diabetes (Chronic) type 2 Dx : 2012 Last exacerbation : DKA : never Hypoglycemic episode : never ER visit : 01/08 - 500+ Hydradenitis (Chronic) hidradenitis left axilla - L73.2 Morbid obesity (Chronic) Bipolar affective (Chronic) Osteoarthritis (Chronic) Chronic back pain (Chronic) Diabetic leg ulcer (Chronic) nonhealing diabetic ulcer right medial leg - E11.622 Non-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 fat layer exposed (Chronic) diabetic ulcer right medial leg - L97.912 Smoker (Chronic) 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 H/O hidradenitis suppurativa (Chronic) Z87.2 Medical History: Medical History (Last Reviewed 06/30/18 @ 15:47 by Jonny Key DO) Cat scratch of left hand with infection (Acute) S60.512A, L08.9, W55.03XA cat scratch infection dorsum left hand at proximal index finger Cat scratch of right hand with infection (Acute) S60.511A, L08.9, W55.03XA cat scratch infection dorsum right hand with extension to long finger Cat scratch (Acute) W55.03XA cat scratch infection dorsum right hand with extension to long finger cat scratch infection dorsum left hand at proximal index finger Diabetes (Chronic) E11.9 type 2 Dx : 2012 Last exacerbation : DKA : never Hypoglycemic episode : never ER visit : 01/08 - 500+ Hydradenitis (Chronic) L73.2 hidradenitis left axilla - L73.2 Morbid obesity (Chronic) E66.01 Bipolar affective (Chronic) F31.9 Osteoarthritis (Chronic) Chronic back pain (Chronic) M54.9, G89.29 Diabetic leg ulcer (Chronic) E11.622, L97.909 nonhealing diabetic ulcer right medial leg - E11.622 Non-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 fat layer exposed (Chronic) L97.912 diabetic ulcer right medial leg - L97.912 Smoker (Chronic) F17.200 F17.200 Open wound of left axillary region (Acute) S41.102A open surgical hidradenitis wound left axilla - S41.102A 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 compromised skin graft left axilla Abscess of sternal region (Acute) L02.213 L02.213 Sternal chest wall wound abscess Open wound of chest wall, complicated (Acute) S21.109A S21.109D open chest wall sternal wound H/O hidradenitis suppurativa (Chronic) Z87.2 Z87.2 Abscess of breast (Acute) N61.1 abscess right medial breast Alcohol abuse F10.10 Anxiety and depression F41.9, F32.9 Asthma J45.909 Back problem M53.9 Drug abuse F19.10 Frequent headaches R51 GERD (gastroesophageal reflux disease) K21.9 Hay fever J30.1 Hearing problem H91.90 Hidradenitis L73.2 LEFT INGUINAL, RIGHT AXILLARY, POSTERIOR NECK, High triglycerides E78.1 Hyperlipidemia E78.5 Kidney problem N28.9 Neuropathy G62.9 Non-healing surgical wound T81.89XA NON HEALING HIDRADENITIS WOUND POSTERIOR NECK. NON HEALING INFECTED HIDRADENITIS ULCER POSTERIOR NECK Osteoarthritis M19.90 Partial thickness burn SUPEROPOSTERIOR NECK Recurrent UTI N39.0 Sinus problem J34.9 Vision problem H54.7 HTN (hypertension) I10 Allergies lamotrigine [From Lamictal] Allergy (Mild, Verified 06/30/18 12:08) Rash adhesive tape Allergy (Verified 06/30/18 12:08) Rash Current Medications Acetaminophen (Tylenol) 650 mg PO Q6H PRN PRN PRN Reason: Mild Pain (1-3)/Temp > 100.7 F Albuterol Sulfate (Ventolin Aerosols) 2.5 mg INHALATION Q4H PRN PRN PRN Reason: ALLERGIES Atorvastatin Calcium (Lipitor) 20 mg PO QHS [facility] Clonidine (Catapres) 0.1 mg PO DAILY PRN PRN PRN Reason: ANXIETY Dextrose (D50w Syringe) 0 gm IV X1 PRN; Protocol PRN Reason: Hypoglycemia Diazepam (Valium) 5 mg PO 4X/DAY PRN PRN PRN Reason: spasm Duloxetine HCl (Cymbalta) 30 mg PO DAILY [facility] Duloxetine HCl (Cymbalta) 60 mg PO DAILY [facility] Enoxaparin Sodium (Lovenox) 40 mg SC DAILY@1000 [facility] Gabapentin (Neurontin) 300 mg PO 4X/DAYCM [facility] Glipizide (Glucotrol) 15 mg PO DAILY@0730 [facility] Glucagon () 1 mg IM .X1 PRN PRN Reason: Hypoglycemia Hydromorphone HCl (Dilaudid Tablet) 2 - 4 mg PO 4X/DAY PRN PRN PRN Reason: PAIN Azithromycin 500 mg/ Dextrose 255 mls @ 250 mls/hr IV X1 ONE Stop: 06/30/18 18:31 Azithromycin 500 mg/ Dextrose 255 mls @ 250 mls/hr IV Q24 [facility] Vancomycin HCl 1,500 mg/ (Dextrose) 280 mls @ 250 mls/hr IV RX TO DOSE ONE Stop: 06/30/18 17:42 Insulin Glargine (Lantus (Bkc)) 10 units SC QHS [facility] Insulin Human Lispro (Humalog Kwikpen ([facility])) 0 unit SQ TIDAC [facility] PRN Reason: Protocol Lubiprostone (Amitiza) 24 mcg PO BID [facility] Magnesium Hydroxide (Milk Of Magnesia) 30 ml PO DAILY PRN PRN PRN Reason: Constipation Meloxicam (Mobic) 7.5 mg PO DAILY [facility] Metformin [facility] ([facility]) [facility] Morphine Sulfate () 2 - 4 mg IV Q4H PRN PRN PRN Reason: BREAKTHROUGH PAIN (>4/10) Non-Formulary Medication (Buspirone Hcl [Buspirone Hcl]) 20 mg PO TID [facility] Non-Formulary Medication (Norgestrel-Ethinyl Estradiol [Cryselle-28 Tablet]) 1 tab PO DAILY [facility] Non-Formulary Medication (Hewitt Carbonate [Hewitt Carbonate Er]) 300 mg PO BID [facility] Ondansetron HCl (Zofran) 4 mg IV Q8H PRN PRN PRN Reason: NAUSEA Pantoprazole Sodium (Protonix) 20 mg PO DAILY [facility] Promethazine HCl (Phenergan Tablet) 25 mg PO 4X/DAY PRN PRN PRN Reason: NAUSEA/VOMITING Quetiapine Fumarate (Seroquel Xr) 800 mg PO QHS [facility] Spironolactone (Aldactone) 100 mg PO DAILY [facility] Tizanidine HCl (Zanaflex) 4 mg PO 4X/DAY [facility] Home Medications: Ambulatory Orders Medication Instructions Recorded Clonidine HCl [Catapres] 0.1 mg PO DAILY PRN PRN 01/18/14 Duloxetine Hcl [Cymbalta] 60 mg PO DAILY 01/18/14 Metformin HCl [Glucophage] 1,000 mg PO BIDCM 01/18/14 Tizanidine HCl [Zanaflex] 4 mg PO 4X/DAY 01/18/14 glipiZIDE [Glucotrol] 15 mg PO DAILY@0730 01/18/14 Quetiapine Fumarate [Seroquel XR] 800 mg PO QHS 04/25/14 Meloxicam [Mobic] 7.5 mg PO DAILY 01/14/16 Spironolactone [Aldactone] 100 mg PO DAILY 01/14/16 Norgestrel-Ethinyl Estradiol 1 tab PO DAILY 01/20/16 [Cryselle-28 Tablet] Hewitt Carbonate [Hewitt 300 mg PO BID 05/10/16 Carbonate ER] gabapentin 300 mg capsule 300 mg PO 4X/DAY cap 12/01/17 Lubiprostone [Amitiza] 24 mcg PO BID 01/16/18 Omeprazole [Prilosec] 20 mg PO DAILY 01/16/18 insulin aspart U-100 100 unit/mL See Protocol SC TIDCM ml 02/14/18 subcutaneous solution insulin glargine (U-100) 100 10 unit SC QHS 02/14/18 unit/mL subcutaneous solution HYDROmorphone tablet [Dilaudid] 2 - 4 mg PO 4X/DAY PRN PRN 7 Days 05/21/18 #60 tab proMETHazine tablet [Phenergan 25 mg PO 4X/DAY PRN PRN #30 tab 05/21/18 tablet] diazepam 5 mg tablet 5 mg PO 4X/DAY PRN #30 tab 05/31/18 Atorvastatin Calcium 20 mg PO QHS 06/21/18 promethazine 25 mg tablet 25 mg PO 4X/DAY PRN #30 tab 06/21/18 Albuterol Sulfate [Ventolin Hfa] 1 - 2 inhaler INHALATION 4X/DAY 06/30/18 PRN PRN Buspirone HCl 20 mg PO TID 06/30/18 Duloxetine Hcl [Cymbalta] 30 mg PO DAILY 06/30/18 Surgical History: Surgical History (Last Reviewed 06/30/18 @ 15:48 by Jonny Key DO) History of incision and drainage (Chronic) Z98.890 Left side of neck 12/02/17, RIGHT BREAST ABSCESS 09/17/2014, LEFT BREAST ABSCESS 10/11/2014, INGUINAL HYDRADENITIS, AXILLARY HYDRADENITIS History of section (Acute) Z98.891 History of tonsillectomy (Acute) Z98.890, Z90.89 Hidradenitis L73.2 EXCISION LEFT INGUINAL HIDRADENITIS AND PLACEMENT OF WOUND VAC (121 CM2) 02/05/2009, EXCISION RIGHT AXILLARY HIDRADENITIS AND PLACEMENT OF WOUND VAC (36 CM2) 12/08/2009, EXCISIONAL DEBRIDEMENT HIDRADENITIS POSTERIOR NECK (33 CM2) 04/25/2014, EXCISIONAL DEBRIDEMENT NONHEALING HIDRADENITIS WOUND POSTERIOR NECK WITH 10 CM SECONDARY WOUND CLOSURE 05/15/2014,INCISION AND DRAINAGE AND EXCISIONAL DEBRIDEMENT NONHEALING POSTOP INFECTED HIDRADENITIS ULCER POSTERIOR NECK (20 CM2) AND DEBRIDEMENT PARTIAL THICKNESS BURN SUPEROPOSTERIOR NECK(16 CM2) 06/26/2014, SURGICAL PREPARATION, LEFT AXILLA WITH EXCISION HIDRADENITIS (88 SQ CM) AND SURGICAL PREPARATION, RIGHT MEDIAL LEG WITH EXCISON NONHEALING DIABETIC ULCER RIGHT MEDIAL LEG AND 4 CM COMPLEX SECONDARY WOUND CLOSURE 01/20/2016, EXCISIONAL DEBRIDEMENT LEFT AXILLARY HIDRADENITIS WOUND WITH FTSG RECONSTRUCTION FROM THE RIGHT LATERAL ABDOMINAL WALL (55 CM2) AND PLACEMENT OF NPWT 02/12/2016, SURGICAL PREPARATION STERNUM CHEST WALL WOUND WITH INCISION AND DRAINAGE ABSCESS AND EXCISIONAL DEBRIDEMENT (14 CM2) 03/05/2016, CLOSURE STERNUM CHEST WALL OPEN ABSCESS WOUND WITH RHOMBOID TRANSPOSITION SKIN FLAP RECONSTRUCTION (24.5 CM2) AND SURGICAL PREPARATION RIGHT MEDIAL BREAST WITH INCISION AND DRAINAGE ABSCESS AND EXCISIONAL DEBRIDEMENT (28 CM2) 03/11/2016 [place] teeth removed K08.499 Surgical History: tonsillectomy, - Psychiatric History: Anxiety, Bipolar Smoking Status: Heavy Smoker (>10/day) Tobacco Use: Cigarettes Alcohol: None Drugs: None - *Family History Maternal Family History: Family History (Last Reviewed 06/30/18 @ 15:48 by Jonny Key DO) Grandmother Thyroid disorder Father Diabetes Heart disease Hypertension High cholesterol Mother Heart disease Hypertension High cholesterol History Items: Heart Disease, Hypertension, - Paternal Family History: Family History (Last Reviewed 06/30/18 @ 15:48 by Jonny Key DO) Grandmother Thyroid disorder Father Diabetes Heart disease Hypertension High cholesterol Mother Heart disease Hypertension High cholesterol History Items: Diabetes, Heart Disease, Hypertension Review of Systems Comment: GENERAL: Complains of fatigue. Denies fever and weight loss. Has history of alcohol abuse and drug abuse. EYES: Denies eye pain. ENT: Denies nasal congestion and sore throat. CARDIOVASCULAR: Has fatigue. Denies chest pain, lightheadedness, and shortness of breath with exertion. RESPIRATORY: Complains of cough and shortness of breath. The patient is a smoker. Does have asthma. GI: Denies nausea, vomiting, diarrhea, or constipation. : Denies hematuria and urinary frequency. MUSCULOSKELETAL: Complains of joint pain, back pain, and arthritis. Denies stiffness, muscle weakness, and gout. Has symptoms of bilateral carpal tunnel syndrome with numbness in thumb and index fingers. INTEGUMENTARY: Denies skin cancer. Has recurrent hidradenitis posterior neck and occipital scalp that was excised 05/19/18. Had recent I&D of left postauricular abscess on 12/02/17. Has cat bite scratch bite infection dorsum right hand in first web space. NEURO: Denies headaches. Denies poor balance and weakness. PSYCH: Denies anxiety. Has depression. Has bipolar disorder. ENDOCRINE: Denies excessive thirst or urination. Has diabetes mellitus. HEMATOLOGIC: Denies abnormal bruising and fevers. Patient Problems: Active and Suspected Problems (Last Reviewed 06/30/18 @ 15:47 by Jonny Key DO) Abscess of dorsum of right hand (Acute) cat scratch bite abscess dorsum right hand by first web space Cat bite of right hand with infection (Acute) cat scratch bite abscess dorsum right hand by first web space Cat bite (Acute) cat scratch bite abscess dorsum right hand by first web space Cellulitis of right hand (Acute) - Physical Exam HEENT: Pupils equal, round, and reactive to light. Extraocular muscles intact. Throat is clear. In the left post-auricular area was an open surgical wound after I&D of abscess that has healed. No further evidence of infection at this time. NECK: Supple. No bony tenderness. Has a healing hidradenitis ulcer in the posterior neck and occipital scalp. Located just superior to previous excision of hidradenitis and skin grafting. Good granulation tissue seen. Measures smaller at 5 x 1 cm. No purulent drainage. No cervical adenopathy. LUNGS: Clear to auscultation. HEART: Regular rate and rhythm. ABDOMEN: Soft and nontender. Right la BREASTS: Breasts are soft. No masses palpable. No evidence of recurrent infection. No axillary adenopathy. EXTREMITIES: No clubbing, cyanosis, or edema. On the left axillary area is a healed skin graft. In the right axilla is a healed ulcer. No axillary adenopathy noted bilaterally. On the dorsum right hand is an area of erythema and induration and some scabbing. There is swelling. Tenderness to palpation. No purulent drainage noted. No sensory deficits to pinprick noted in the fingers. Right palm is soft and nontender. Can flex and extend her fingers without difficulty. She has trouble with thumb opposition and thumb abduction and adduction and thumb flexion and extension secondary to swelling and tenderness in the first web space over the first dorsal interosseous muscle and adductor pollicis muscle. No tenderness over the tendons to suggest tenosynovitis. Minimal swelling noted on the digits of the right hand. Most of the swelling is localized over the dorsum right hand at first web space. Fingers are warm with good capillary refill. Radial pulses are palpable. No axillary adenopathy. NEURO: Cranial nerves II through XII grossly intact. Vital Signs Temp Pulse Resp BP Pulse Ox 97.9 F 83 16 89/61 L 95 06/30/18 16:23 06/30/18 16:23 06/30/18 16:23 06/30/18 16:23 06/30/18 16:23 Oxygen Delivery Method Room Air Weight: 233 lb 3.985 oz Body Mass Index (BMI) 38.8 Assessment/Plan All Active Problems (Last Reviewed 06/30/18 @ 15:47 by Jonny Key DO) Abscess of dorsum of right hand (Acute) Cat bite of right hand with infection (Acute) Cat bite (Acute) Cellulitis of right hand (Acute) Muscle spasms of neck (Acute) Abscess, scalp (Acute) Folliculitis (Acute) Diabetes mellitus type 2, uncontrolled (Acute) Unspecified open wound of unspecified part of neck, subsequent encounter (Acute) Unspecified open wound of unspecified part of head, subsequent encounter (Acute) Open wound involving head with neck, complicated (Acute) Abscess of neck (Acute) History of section (Acute) History of tonsillectomy (Acute) Cat scratch of left hand with infection (Acute) Cat scratch of right hand with infection (Acute) Cat scratch (Acute) Open wound of left axillary region (Acute) Abscess of sternal region (Acute) Open wound of chest wall, complicated (Acute) Abscess of breast (Acute) 1. Cat scratch bite abscess dorsum right hand at first web space. 2. Diabetes mellitus. 3. Smoker. Continue IV antibiotics with Vancomycin and Azithromycin. Will obtain a CT scan to look for any evidence of infection deep in the hand. Being diabetic and having failed outpatient therapy, recommend early operative intervention with incision and drainage and excisional debridement. Will leave the wound open and pack with Silver dressings to be done daily. Will need OT after discharge for range of motion exercises, strengthening, and edema management. Anticipate increased metabolic demands from the infection and from the surgery. Will check a Prealbumin and encourage nutritional supplementation with protein to help the healing process. Will proceed with the surgery tomorrow under general anesthesia and tourniquet control. Patient was informed of the risks and complications of the procedure including alternatives to surgery. These were discussed with the patient personally. Patient voices understanding and wishes to proceed. Some of the risks and complications that were discussed included but were not inclusive of failure to diagnose including symptom relief, pain, infection, numbness, stiffness, loss of digit, RSD (CRPS), need for further surgery, contracture, and wound healing problems. Encouraged patient to stop smoking as it may have deleterious effects on wound healing. She recently had surgery on 05/19/18 where she underwent surgical preparation posterior neck/occipital scalp with incision and drainage and excisional debridement recurrent hidradenitis abscess (31.5 cm2). The wound is healing satisfactory and is being treated with Aquacel Silver dressing changes every other day. Operative culture showed Staphylococcus epidermidis and Anaerobes. She was treated with Cleocin. She was scheduled to start PT for range of motion exercises to minimize neck stiffness when she developed this cat scratch bite abscess dorsum right hand by first web space. Will continue Silver dressing changes to her posterior neck and occipital scalp while in the hospital. Code Visit Inpatient E&M: 92407 Init Hosp L2 - ICD-10 - W55.01xA, S61.451A, L02.511, E11.9, F17.200
--- NOTE | 2018-06-30 17:16 | NURSING ---
ONE TOUCH NOW 58, AFTER SHE HAD ONE 4OZ ORANGE JUICE AND ONE 40Z APPLE JUICE, ANOTHER 4 OZ APPLE JUICE GIVEN AND SUPPER TRAY ARRIVED, WHICH HAS BEEF TIPS AND MEAT LOAF, MASHED POTATOES AND SALAD. EATING NOODLES AND MASHED POTATOES NOW.
--- NOTE | 2018-06-30 17:17 | CT_ITS ---
Exam: CT of the right upper extremity noncontrast. HISTORY: Abscess. COMPARISON: None FINDINGS: Normal bones and joints. No evidence for abscess or focal fluid collection. Nonspecific soft tissue swelling seen along the dorsum of the hand and mild induration seen of the dorsal aspect of the forearm. Grossly normal visualized intrinsic muscles of the hand and muscles of the forearm. Grossly normal visualized tendons. CT/Extremity Upper without Contra IMPRESSION: Mild nonspecific soft tissue swelling. No definite abscess. Normal bones and joints. Electronically Signed: Juan Pablo Presley MD at 18:57 EDT , Service support ,
[2018-06-30] MEDS: Gabapentin 300 MG Capsule PO ×2 (17:23→21:26)
[2018-06-30 18:38] VITALS: BP 104/58; PULSE 85; RESP 16; TEMP 36.6; O2SAT 95
[2018-06-30] MEDS: tiZANidine HCl 2 MG Tablet 4 MG PO ×2 (18:43→21:28)
[2018-06-30] MEDS: metFORMIN HCl 1,000 MG Tablet 1000 MG PO (18:43)
[2018-06-30 18:45] LABS: Bedside Glucose 123 mg/dL (70-110)
--- NOTE | 2018-06-30 20:10 | PCM.RX.CS ---
Consult Pharmacy has been consulted to manage selected antiobiotic: Vancomycin Type of Consult: New start Suspected Infection: Skin/Soft tissue Prior Doses of Antibiotics Received/Current Regimen: Vancomycin 1500mg IV x1 06/30/18 at 1355 Labs: Sodium 141 mmol/L (136-145) 06/30/18 14:45 Potassium 4.2 mmol/L (3.5-5.1) 06/30/18 14:45 Chloride 106 mmol/L (98-107) 06/30/18 14:45 Carbon Dioxide 27.0 mmol/L (21.0-32.0) 06/30/18 14:45 Anion Gap 8 (5-15) 06/30/18 14:45 BUN 8 mg/dL (7-18) 06/30/18 14:45 Creatinine 0.74 mg/dL (0.55-1.02) 06/30/18 14:45 Est GFR (MDRD) Af Amer 116 mL/min (>60) 06/30/18 14:45 Est GFR (MDRD) Non-Af 96 mL/min (>60) 06/30/18 14:45 BUN/Creatinine Ratio 10.9 RATIO (10-20) 06/30/18 14:45 Glucose 150 mg/dL (74-106) H 06/30/18 14:45 Weight used for dosin kg Estimated Creatinine Clearance: 97ml/min Goal Trough: 10-15 mcg/mL Pharmacy Plan for Drug Dosing: Recommend Vancomycin 1500mg IV q12h starting on 07/01/18 at 0200. Trough to be drawn prior to the 4th dose on 07/02/18. Goal trough of 10-15 Pharmacy Service will continue to monitor and adjust dosing as required. Follow-Up Labs: Trough Vancomycin Labs to be done on [date and time ordered]: trough on 07/02/18 at 0130
[2018-06-30] MEDS: Morphine 2 MG/ML Syringe IV (21:20)
[2018-06-30] MEDS: Lithium Carbonate 300mg Capsule 300 MG PO (21:27)
[2018-06-30] MEDS: QUEtiapine 100 MG Tablet 400 MG PO (21:27)
[2018-06-30] MEDS: Atorvastatin Calcium 20 MG Tablet PO (21:27)
[2018-06-30 21:44] VITALS: BMI 39.2
[2018-06-30] MEDS: Lubiprostone 24 MCG Capsule PO (21:47)
[2018-06-30] MEDS: busPIRone 5 MG Tablet 20 MG PO (21:48)
[2018-06-30 22:20] LABS: Bedside Glucose 140 mg/dL (70-110)
[2018-07-01] VITALS (11 sets, daily range): BP systolic 93–129; BP diastolic 48–82; PULSE 68–98; RESP 16–18; TEMP 36.4–36.8; O2SAT 93–100
[2018-07-01] MEDS: Morphine 2 MG/ML Syringe IV ×2 (02:19→06:11)
[2018-07-01] MEDS: Ondansetron 4 MG/2 ML Vial IV (02:58)
[2018-07-01] MEDS: 0.9% NaCl Peripheral Flush Adult/Peds IV ×2 (04:49→04:50)
[2018-07-01 05:02] LABS: Absolute Lymphocyte Count 4.64 X10^3/ul (0.83-4.51); Absolute Neutrophil Count 6.5 X10^3/uL (2.0-7.7); Basophil# 0.07 X10^3/uL; Basophil% 0.5 % (0-1); Differential Indicated SCAN CRITERIA MET; Eosinophil# 1.35 X10^3/uL; Eosinophils% 10.2 % (0-5); Hematocrit 33.8 % (37-47); Hemoglobin 10.4 g/dl (12.0-15.0); Lymphocyte # 4.64 X10^3/ul (4.0); Lymphocyte % 35.2 % (19-41); Mean Corp Hgb Conc 30.8 g/gl (32-36); Mean Corpuscular Hgb 28.8 pg (27.0-32.0); Mean Corpuscular Volume 93.6 fL (81-99); Mean Platelet Vol. 9.3 fl (6.2-12.0); Monocyte# 0.64 X10^3/uL; Monocyte% 4.9 % (0-10); Neutrophil # 6.47 X10^3/uL (2.7-7.7); POSITIVE COUNT NO; POSITIVE DIFFERENTIAL NO; POSITIVE MORPHOLOGY YES; Platelet Count 341 K/mm3 (150-450); RBC Distribution Width CV 15.2 % (11.6-14.6); RBC Distribution Width SD 52.2 fl (35.1-43.9); Red Blood Count 3.61 M/mm3 (4.2-5.4); White Blood Count 13.2 K/mm3 (4.4-11.0)
[2018-07-01 05:13] LABS: Anion Gap 7 (5-15); BUN 9 mg/dL (7-18); BUN/Creat Ratio 12.5 RATIO (10-20); Calcium,Total 8.1 mg/dL (8.5-10.1); Chloride 107 mmol/L (98-107); Creatinine, Serum 0.72 mg/dL (0.55-1.02); EST Glomerular Filtration Rate 98 mL/min (>60); Est Glom Filt Rate - Afr Amer 119 mL/min (>60); Glucose 69 mg/dL (74-106); Potassium 3.8 mmol/L (3.5-5.1); Sodium Level 144 mmol/L (136-145)
[2018-07-01 05:21] LABS: Differential Comment SCANNED
--- NOTE | 2018-07-01 08:00 | ABS_PTH ---
PATIENT: ROGER HOOD LOC: MS3 U#:[id number] AGE/SX: 32/F ROOM: MS305 RE06/30/[address]: Dr. Jonny Key DO : 1985 BED: 1 DIS: 07/04/2018 SPEC #: [id number] RECD: 07/03/18 10:18 STATUS: MAYI REQ #: [id number] RADHAMES: 07/01/18 08:[address]: Phoenix Boswell DEPT: SURGICAL PATHOLOGY RECD BY: Jason Newby ENTERED: 07/03/18 11:12 SP TYPE: Abscess OTHR DR: DO Dr. Phoenix Abrams MD Dr. William Lago, MD Tissues: Hand, NOS Procedures: Special Stain Group I Surgery Specimen Level III AFB Stain (control) GMS Stain (control) Comments: @ Ordering doctor for SUIII edited from to @ by RGOOD at 07/03/18 1448 @ Submitting doctor edited from to @ by RGOOD at 07/03/18 1448 HEADER OPERATION: Incision and drainage abscess, dorsum right hand by first webspace PRE-OP DIAGNOSIS: Cat bite right dorsum hand by first webspace TISSUE SUBMITTED: Dorsum right hand by first webspace MICROSCOPIC DIAGNOSIS Dorsum right hand by first webspace abscess: Skin with underlying tissue with focal ulceration, acute and chronic inflammation and abscess formation. Special stains for acid fast bacilli and fungi are negative for organisms; matched controls are appropriate. PATSY:anastasiia 07/04/18 MICROSCOPIC DESCRIPTION Slides are reviewed. GROSS DESCRIPTION Received in fixative is one container labeled with the patient's name and designated dorsum right hand by first webspace abscess. The specimen consists of a piece of jean-white skin with underlying tissue measuring 3 x 1.5 cm and up to 1.5 cm in thickness. A focal area of ulceration is noted. The specimen is serially sectioned and submitted entirely in two cassettes. / PATSY:anastasiia 07/03/18 TC:2 CPT: 54054, 20487 x2
--- NOTE | 2018-07-01 09:17 | PCM.IMDPSTOP ---
Immediate Post-Op Note Date of Procedure: 07/01/18 Primary Surgeon/Physician: Phoenix Boswell warp placer: None Pre-Operative Diagnosis: 1. Cat scratch bite abscess dorsum right hand at first web space. 2. Diabetes mellitus. 3. Smoker. Post-Operative Diagnosis: 1. Necrotizing cat scratch bite abscess dorsum right hand at first web space. 2. Diabetes mellitus. 3. Smoker. Surgery/Procedure Performed:: Surgical preparation dorsum right hand at first web space with incision and drainage and excisional debridement necrotizing cat scratch bite abscess (8.1 cm2). Description of Surgical Findings:: The patient is a 32 year old F with a history of diabetes mellitus sustained a cat scratch bite to the dorsum of her right hand at first web space on Tuesday. She states it is her own cat. She started developing increasing redness and swelling and pain. The next day she was started on Cleocin and then a few days later on Augmentin. Initially there was a little improvement but the symptomatology continued to worsen. She was able to move her fingers and thumb initially but on the day of admission, she states she had trouble with moving her right thumb secondary to the pain and swelling in the first web space. She denies any numbness. She denies any pain in her right palm. She denies any fever. Patient is right hand dominant. She was admitted and started on IV antibiotics with Vancomycin and Azithromycin. Initial WBC was 10.8. I was asked to evaluate this patient for surgical options for treatment. Today the patient underwent surgical preparation dorsum right hand at first web space with incision and drainage and excisional debridement necrotizing cat scratch bite abscess (8.1 cm2). Total tourniquet time - 16 minutes. Size of defect dorsum right hand at first web space - 3 x 2.7 x 1 cm. Estimated Blood Loss: 2 ml. Specimen's removed: 1. Necrotizing cat scratch bite abscess dorsum right hand at first web space to Pathology and Microbiology. 2. MRSA Wound DNA by PCR. Drains: None. Type of Anesthesia:: General - Admit VTE Documentation VTE Present on Admission: No VTE Mechan Device Prophylaxis: SCD's VTE Pharm Prophylaxis ordered?: Yes
[2018-07-01 09:20] LABS: Bedside Glucose 111 mg/dL (70-110)
--- NOTE | 2018-07-01 09:40 | NURSING ---
Dr. Key aware that second blood culture was not completed on admission. Ok to cancel second blood culture. Janelle in lab aware.
[2018-07-01 10:26] LABS: Bedside Glucose 100 mg/dL (70-110)
[2018-07-01] MEDS: Lubiprostone 24 MCG Capsule PO ×2 (10:42→21:05)
[2018-07-01] MEDS: Spironolactone 50 MG Tablet 100 MG PO (10:43)
[2018-07-01] MEDS: DULoxetine Hcl 30 MG Capsule PO (10:43)
[2018-07-01] MEDS: Lithium Carbonate 300mg Capsule 300 MG PO ×2 (10:44→21:07)
[2018-07-01] MEDS: DULoxetine Hcl 60 MG Capsule PO (10:44)
[2018-07-01] MEDS: Meloxicam 7.5 MG Tablet PO (10:45)
[2018-07-01] MEDS: QUEtiapine 100 MG Tablet 400 MG PO ×2 (10:45→21:07)
[2018-07-01] MEDS: Pantoprazole Sodium 20 MG Tablet PO (10:45)
[2018-07-01] MEDS: tiZANidine HCl 2 MG Tablet 4 MG PO ×4 (10:46→21:08)
--- NOTE | 2018-07-01 10:51 | PN_ITS ---
Patient Problems: Active and Suspected Problems (Last Reviewed 06/30/18 @ 15:47 by Jonny Key DO) Cellulitis of right hand (Acute) Subjective: Complains of pain in right hand s/p I+D. Objective: Underwent I+D of right hand today. Vitals/I&O's: Vital Signs Temp Pulse Resp BP Pulse Ox 36.7 C 80 18 113/69 96 07/01/18 10:09 07/01/18 10:09 07/01/18 10:09 07/01/18 10:09 07/01/18 10:09 Oxygen Flow Rate (L/min) 3 Oxygen Delivery Method Room Air Weight: 107.1 kg Body Mass Index (BMI) 39.2 Finger Stick Blood Glucose 111 Intake and Output for Last 24 Hours 06/29/18 06/30/18 07/01/18 23:59 23:59 23:59 Intake Total 2172 / 2172 Balance 2172 / 2172 General: Alert Oral: Moist Mucosa, No Gingival or Mucosal Lesions/ Ulcerations Neck: No Nodes, Thyroid Normal Size and Texture Lungs: Clear to auscultation, Normal air movement, No rhonchi, No wheeze Cardiovascular: Regular rate, Regular Rhythm, Normal S1, Normal S2 Abdomen: Bowel Sounds Present, Soft, Non Tender, Non-Distended, No Hepato- splenomegaly Extremities: No edema, No Calf Tenderness Skin: No rashes, No breakdown Psych/Mental Status: Normal Affect, Appropriate Laboratory Results 06/30/18 18:37: POC Glucose 123 H 06/30/18 21:55: POC Glucose 140 H 07/01/18 04:50: WBC 13.2 H, RBC 3.61 L, Hgb 10.4 L, Hct 33.8 L, MCV 93.6, MCH 28.8, MCHC 30.8 L, RDW 15.2 H, RDW Differential 52.2 H, Plt Count 341, MPV 9.3, Immature Gran % (Auto) 0.200, Neut % (Auto) 49.0, Lymph % (Auto) 35.2, [place] % ( Auto) 4.9, Eos % (Auto) 10.2 H, Baso % (Auto) 0.5, Absolute Neuts (auto) 6.5, Absolute Lymphs (auto) 4.64 H, Total Counted Not Reportable, Differential Comment SCANNED 07/01/18 04:50: Sodium 144, Potassium 3.8, Chloride 107, Carbon Dioxide 30.0, Anion Gap 7, BUN 9, Creatinine 0.72, Estim Creat Clear Calc 100.00, Est GFR ( MDRD) Af Amer 119, Est GFR (MDRD) Non-Af 98, BUN/Creatinine Ratio 12.5, Glucose 69 L, Calcium 8.1 L 07/01/18 09:17: POC Glucose 111 H 07/01/18 10:20: POC Glucose 100 07/01/18 : S.aureus Protein A PCR Pending, MRSA (PCR) Pending Current Medications Acetaminophen (Tylenol) 650 mg PO Q6H PRN PRN PRN Reason: Mild Pain (1-3)/Temp > 100.7 F Albuterol Sulfate (Ventolin Aerosols) 2.5 mg INHALATION Q4H PRN PRN PRN Reason: ALLERGIES Atorvastatin Calcium (Lipitor) 20 mg PO QHS [facility] Last Admin: 06/30/18 21:27 Dose: 20 mg Buspirone HCl (Buspar) 20 mg PO TID [facility] Last Admin: 07/01/18 06:16 Dose: Not Given Clonidine (Catapres) 0.1 mg PO DAILY PRN PRN PRN Reason: ANXIETY Dextrose (D50w Syringe) 0 gm IV X1 PRN; Protocol PRN Reason: Hypoglycemia Diazepam (Valium) 5 mg PO 4X/DAY PRN PRN PRN Reason: spasm Duloxetine HCl (Cymbalta) 30 mg PO DAILY [facility] Last Admin: 07/01/18 10:43 Dose: 30 mg Duloxetine HCl (Cymbalta) 60 mg PO DAILY [facility] Last Admin: 07/01/18 10:44 Dose: 60 mg Enoxaparin Sodium (Lovenox) 40 mg SC DAILY@1000 [facility] Last Admin: 07/01/18 10:44 Dose: 40 mg Gabapentin (Neurontin) 300 mg PO 4X/DAYCM [facility] Last Admin: 07/01/18 08:05 Dose: Not Given Glipizide (Glucotrol) 15 mg PO DAILY@0730 [facility] Last Admin: 07/01/18 08:05 Dose: Not Given Glucagon () 1 mg IM .X1 PRN PRN Reason: Hypoglycemia Hydromorphone HCl (Dilaudid Tablet) 2 - 4 mg PO 4X/DAY PRN PRN PRN Reason: PAIN Hydromorphone HCl (Dilaudid Inj) 1 mg IV Q4H PRN PRN PRN Reason: SEVERE PAIN (6-10/10) Azithromycin 500 mg/ Dextrose 255 mls @ 250 mls/hr IV Q24 [facility] Vancomycin HCl 1,500 mg/ (Sodium Chloride) 530 mls @ 250 mls/hr IV Q12H [facility] Last Admin: 07/01/18 02:20 Dose: 250 mls/hr Insulin Glargine (Lantus (Bkc)) 10 units SC QHS [facility] Last Admin: 06/30/18 22:07 Dose: 5 u Insulin Human Lispro (Humalog Kwikpen (Bk)) 0 unit SQ TIDAC [facility] PRN Reason: Protocol Last Admin: 07/01/18 08:05 Dose: Not Given [place] Carbonate ([place] Carbonate) 300 mg PO BID [facility] Last Admin: 07/01/18 10:44 Dose: 300 mg Lubiprostone (Amitiza) 24 mcg PO BID [facility] Last Admin: 07/01/18 10:42 Dose: 24 mcg Magnesium Hydroxide (Milk Of Magnesia) 30 ml PO DAILY PRN PRN PRN Reason: Constipation Meloxicam (Mobic) 7.5 mg PO DAILY [facility] Last Admin: 07/01/18 10:45 Dose: 7.5 mg [facility] ([facility]) [facility] Last Admin: 07/01/18 08:05 Dose: Not Given Morphine Sulfate () 2 - 4 mg IV Q4H PRN PRN PRN Reason: BREAKTHROUGH PAIN (>4/10) Last Admin: 07/01/18 06:11 Dose: 4 mg Nutritional Formula (Kofi - [place] Flavor) [facility] Ondansetron HCl (Zofran) 4 mg IV Q8H PRN PRN PRN Reason: NAUSEA Last Admin: 07/01/18 02:58 Dose: 4 mg Pantoprazole Sodium (Protonix) 20 mg PO DAILY [facility] Last Admin: 07/01/18 10:45 Dose: 20 mg Promethazine HCl (Phenergan Tablet) 25 mg PO 4X/DAY PRN PRN PRN Reason: NAUSEA/VOMITING Quetiapine Fumarate (Seroquel) 400 mg PO BID [facility] Last Admin: 08/11/18 10:45 Dose: 400 mg Sodium Chloride () 5 - 30 ml IV UD PRN PRN Reason: SALINE FLUSH Last Admin: 07/01/18 04:50 Dose: 15 ml Spironolactone (Aldactone) 100 mg PO DAILY [facility] Last Admin: 07/01/18 10:43 Dose: 100 mg Tizanidine HCl (Zanaflex) 4 mg PO 4X/DAY [facility] Last Admin: 07/01/18 10:46 Dose: 4 mg Medical Necessity - Tobacco Use Smoking Status: Heavy Smoker (>10/day) Tobacco Use: Cigarettes Assessment/Plan All Active Problems (Last Reviewed 06/30/18 @ 15:47 by Jonny Key, ) Cellulitis of right hand (Acute) Muscle spasms of neck (Acute) Abscess, scalp (Acute) Folliculitis (Acute) Diabetes mellitus type 2, uncontrolled (Acute) Unspecified open wound of unspecified part of neck, subsequent encounter (Acute) Unspecified open wound of unspecified part of head, subsequent encounter (Acute) Open wound involving head with neck, complicated (Acute) Abscess of neck (Acute) History of section (Acute) History of tonsillectomy (Acute) Cat scratch of left hand with infection (Acute) Cat scratch of right hand with infection (Acute) Cat scratch (Acute) Open wound of left axillary region (Acute) Abscess of sternal region (Acute) Open wound of chest wall, complicated (Acute) Abscess of breast (Acute) 1. Right hand cellulitis * Suspect secondary to the patient's cutting. Appears more like a staph infection than anything * Patient will be on vancomycin * Follow patient's response * s/p I+D * Given the cat scratch will also add azithromycin 2. Hidradenitis suppurativa * Patient's had numerous surgeries, approximately 36 involving her axilla, breasts neck and groin * No acute issues at this time 3. Diabetes mellitus type 2 * Continue with her home medications and sliding scale 4. DVT prophylaxis: Moderate risk. Lovenox. Code Visit Inpatient E&M: 92104 Subs Hosp L2
[2018-07-01 11:28] LABS: M R Staph aureus DNA By PCR Negative (Negative); Probe Check PASS; Specimen Processing Control PASS; Staph aureus DNA By PCR NEGATIVE (Negative)
[2018-07-01] MEDS: Insulin Lispro 100 UNIT/ML INSULN.PEN SQ (12:11)
[2018-07-01] MEDS: Gabapentin 300 MG Capsule PO ×3 (12:13→21:07)
[2018-07-01 12:21] LABS: Bedside Glucose 163 mg/dL (70-110)
[2018-07-01] MEDS: busPIRone 5 MG Tablet 20 MG PO ×2 (14:16→21:06)
[2018-07-01] MEDS: HYDROmorphone 1 MG/ML Syringe IV ×2 (14:16→18:32)
--- NOTE | 2018-07-01 15:47 | PCM.OPRPT ---
Report of Operation Date of Procedure: 07/01/18 Pre-Operative Diagnosis: 1. Cat scratch bite abscess dorsum right hand at first web space. 2. Diabetes mellitus. 3. Smoker. Post-Operative Diagnosis: 1. Necrotizing cat scratch bite abscess dorsum right hand at first web space. 2. Diabetes mellitus. 3. Smoker. Surgery/Procedure Performed:: Surgical preparation dorsum right hand at first web space with incision and drainage and excisional debridement necrotizing cat scratch bite abscess (8.1 cm2). Description of Surgical Findings:: The patient is a 32 year old F with a history of diabetes mellitus sustained a cat scratch bite to the dorsum of her right hand at first web space on Tuesday. She states it is her own cat. She started developing increasing redness and swelling and pain. The next day she was started on Cleocin and then a few days later on Augmentin. Initially there was a little improvement but the symptomatology continued to worsen. She was able to move her fingers and thumb initially but on the day of admission, she states she had trouble with moving her right thumb secondary to the pain and swelling in the first web space. She denies any numbness. She denies any pain in her right palm. She denies any fever. Patient is right hand dominant. She was admitted and started on IV antibiotics with Vancomycin and Azithromycin. Initial WBC was 10.8. I was asked to evaluate this patient for surgical options for treatment. Patient was informed of the risks and complications of the procedure including alternatives to surgery. These were discussed with the patient personally. Patient voices understanding and wishes to proceed. Some of the risks and complications that were discussed included but were not inclusive of failure to diagnose including symptom relief, pain, infection, numbness, stiffness, loss of digit, RSD (CRPS), need for further surgery, contracture, and wound healing problems. Encouraged patient to stop smoking as it may have deleterious effects on wound healing. Total tournquet time - 16 minutes. Size of defect dorsum right hand at first web space - 3 x 2.7 x 1 cm. quality control assessor: None Type of Anesthesia:: General Specimen's removed: 1. Necrotizing cat scratch bite abscess dorsum right hand at first web space to Pathology and Microbiology. 2. MRSA Wound DNA by PCR. Drains: None. Estimated Blood Loss (mL): 2 ml. Description of Procedure: Patient was taken to OR in supine position and was placed under general anesthesia. Her right hand and forearm was prepped and draped in the usual fashion. SCD's were placed for DVT prophylaxis. Perioperative antibiotics were placed intravenously. The right arm was elevated and a towel was place on the hand and gently compressed as the tourniquet was elevated to 250 mmHg. Using xylocaine with epinephrine, I infiltrated around the abscess for postop pain relief. Under loupe magnification, I proceeded with incision and drainage of the abscess. Using a scalpel I made a longitudinal incision dorsum right hand at first web space. A lot of fat necrosis was seen. Some thickened pus was seen as well in all directions. The fat necrosis extended down to the muscular fascia of the first dorsal interosseous muscle. The fascia was thickened and inflamed and looked viable. Incision was made in the fascia and the underlying muscle looked pink and viable as well. No evidence of compartment syndrome. A branch of the superficial sensory branch of the radial nerve was seen on the fascia at the base of the wound and preserved. There was a small ulceration on the abscess distally and was sharply excised and debrided. It is felt to be the entry point of the cat scratch bite leading to the abscess. The extensive fat necrosis was also sharply excised and debrided as well. Some of the overlying skin looked bruised after the excisional debridement and was debrided. This should make the wound care easier as the wound has been opened up. During the healing process if there is a plateau in the healing process, then delayed closure with skin grafting can be done. Some of the tissue was sent to Microbiology for culture. The rest was sent to Pathology for analysis to rule out carcinoma. MRSA Wound DNA by PCR was also done. A positive culture may necessitate antibiotic modification. The tourniquet was released at 16 minutes. Hemostasis was obtained with gentle pressure and electrocautery. The wound was irrigated with saline. The wound was dressed with Mepitel nonadherent dressing followed by 4x4 gauze with Betadine followed by Kerlix gauze and ABD pads followed by a compression MATILDA wrap. Patient tolerated the procedure well and was sent to PACU in satisfactory condition. She will be sent back upstairs for postop care. She will be encouraged to move her fingers with range of motion exercises to minimize stiffness. She may need assistance with OT after discharge. Will apply Aquacel Silver dressing changes tomorrow. She will keep her right hand elevated. Grafts/Implants Used: None. - Complications None. - Admit VTE Documentation VTE Present on Admission: No VTE Mechan Device Prophylaxis: SCD's VTE Pharm Prophylaxis ordered?: Yes Code Visit Surgery Charges CPT - 32248 ICD-10 - W55.01xA, S61.451A, L02.511, M79.89, E11.9, F17.200 L02.511, W55.01xA, S61.451A, M79.89, E11.9, F17.200
[2018-07-01] MEDS: metFORMIN HCl 1,000 MG Tablet 1000 MG PO (17:08)
[2018-07-01 17:36] LABS: Bedside Glucose 151 mg/dL (70-110)
--- NOTE | 2018-07-01 18:43 | CASEMGMT ---
SEE DOMINICK BARRIGA ASSESS LINK: D/C PLAN: Return home w/C. Intro role to DOMINICK BARRIGA. Pt sitting up in bed, eating dinner. Pt states she has current services with [facility] for wound care. Pt agreeable to continuation of their services upon discharge. Pt aware of possible need for IV atb's upon discharge and is agreeable with [facility] or whoever is covered under her insurance for IV medication and supplies. Pt reports she lives with her parents who assist her with bills and transportation. Pt denies other needs at this time. CM to follow for discharge planning needs that may arise. Livia FLOWERS RN, CM
[2018-07-01] MEDS: Acetaminophen 325 MG Tablet 650 MG PO (20:26)
[2018-07-01] MEDS: Atorvastatin Calcium 20 MG Tablet PO (21:06)
[2018-07-01] MEDS: HYDROmorphone 2 MG TABLET PO (22:03)
[2018-07-01 22:46] LABS: Bedside Glucose 132 mg/dL (70-110)
[2018-07-02] MEDS: HYDROmorphone 1 MG/ML Syringe IV ×4 (01:52→17:39)
[2018-07-02] MEDS: 0.9% NaCl Peripheral Flush Adult/Peds IV ×4 (01:52→11:02)
[2018-07-02 02:01] VITALS: BP 110/76; PULSE 70; RESP 18; TEMP 36.6; O2SAT 96
[2018-07-02 02:09] LABS: Vancomycin, Trough Level 13.9 ug/mL (5.0-15.0)
[2018-07-02] MEDS: busPIRone 5 MG Tablet 20 MG PO ×3 (05:46→21:09)
[2018-07-02 05:52] LABS: Hematocrit 33.7 % (37-47); Hemoglobin 10.6 g/dl (12.0-15.0); Mean Corp Hgb Conc 31.5 g/gl (32-36); Mean Corpuscular Hgb 29.9 pg (27.0-32.0); Mean Corpuscular Volume 95.2 fL (81-99); Mean Platelet Vol. 9.5 fl (6.2-12.0); Platelet Count 312 K/mm3 (150-450); RBC Distribution Width SD 50.8 fl (35.1-43.9); Red Blood Count 3.54 M/mm3 (4.2-5.4); Scan Indicated on CBC? Y/N NO; White Blood Count 11.9 K/mm3 (4.4-11.0)
[2018-07-02 06:08] LABS: BUN 12 mg/dL (7-18); BUN/Creat Ratio 16.4 RATIO (10-20); Calcium,Total 8.7 mg/dL (8.5-10.1); Chloride 107 mmol/L (98-107); Creatinine, Serum 0.73 mg/dL (0.55-1.02); EST Glomerular Filtration Rate 97 mL/min (>60); Est Glom Filt Rate - Afr Amer 118 mL/min (>60); Estimated Creatinine Clearance 98.63 ml/min; Glucose 113 mg/dL (74-106); Potassium 4.3 mmol/L (3.5-5.1); Sodium Level 143 mmol/L (136-145)
[2018-07-02 06:09] LABS: Anion Gap 7 (5-15)
--- NOTE | 2018-07-02 06:10 | PCM.RX.CS ---
Consult Pharmacy has been consulted to manage selected antiobiotic: Vancomycin Type of Consult: Follow-up Suspected Infection: Skin/Soft tissue Prior Doses of Antibiotics Received/Current Regimen: Medications Vancomycin HCl 1,500 mg/ (Sodium Chloride) 530 mls @ 250 mls/hr IV Q12H [facility] Last Admin: 07/02/18 01:57 Dose: 250 mls/hr Labs: Sodium 143 mmol/L (136-145) 07/02/18 05:40 Potassium 4.3 mmol/L (3.5-5.1) 07/02/18 05:40 Chloride 107 mmol/L (98-107) 07/02/18 05:40 Carbon Dioxide 29.0 mmol/L (21.0-32.0) 07/02/18 05:40 Anion Gap 7 (5-15) 07/02/18 05:40 BUN 12 mg/dL (7-18) 07/02/18 05:40 Creatinine 0.73 mg/dL (0.55-1.02) 07/02/18 05:40 Est GFR (MDRD) Af Amer 118 mL/min (>60) 07/02/18 05:40 Est GFR (MDRD) Non-Af 97 mL/min (>60) 07/02/18 05:40 BUN/Creatinine Ratio 16.4 RATIO (10-20) 07/02/18 05:40 Glucose 113 mg/dL (74-106) H 07/02/18 05:40 Vancomycin Trough 13.9 ug/mL (5.0-15.0) 07/02/18 01:28 Microbiology: Microbiology 07/01/18 Unknown Wound Abcess - Right Hand Gram Stain - Final Weight used for dosin kg Estimated Creatinine Clearance: 100 Goal Trough: 10-15 mcg/mL Pharmacy Plan for Drug Dosing: Trough level of 13.9 is within target range of 10-15. Will continue same dose and frequency, and re-draw trough in four doses. Pharmacy Service will continue to monitor and adjust dosing as required. Follow-Up Labs: Trough Vancomycin Labs to be done on [date and time ordered]: 07/03/18 @4451
[2018-07-02] MEDS: Ondansetron 4 MG/2 ML Vial IV (06:42)
[2018-07-02] MEDS: Insulin Lispro 100 UNIT/ML INSULN.PEN SQ (06:46)
[2018-07-02 07:01] LABS: Bedside Glucose 152 mg/dL (70-110)
[2018-07-02 08:00] VITALS: BP 106/74; PULSE 80; RESP 18; TEMP 36.6; O2SAT 96
[2018-07-02] MEDS: Enoxaparin 40 MG/0.4 ML Syringe SC (08:04)
[2018-07-02] MEDS: QUEtiapine 100 MG Tablet 400 MG PO ×2 (08:04→21:08)
[2018-07-02] MEDS: Gabapentin 300 MG Capsule PO ×4 (08:04→21:09)
[2018-07-02] MEDS: DULoxetine Hcl 60 MG Capsule PO (08:05)
[2018-07-02] MEDS: DULoxetine Hcl 30 MG Capsule PO ×2 (08:05)
[2018-07-02] MEDS: Pantoprazole Sodium 20 MG Tablet PO (08:06)
[2018-07-02] MEDS: Spironolactone 50 MG Tablet 100 MG PO (08:06)
[2018-07-02] MEDS: Meloxicam 7.5 MG Tablet PO (08:06)
[2018-07-02] MEDS: glipiZIDE 5 MG Tablet 15 MG PO (08:06)
[2018-07-02] MEDS: Lithium Carbonate 300mg Capsule 300 MG PO ×2 (08:07→21:09)
[2018-07-02] MEDS: metFORMIN HCl 1,000 MG Tablet 1000 MG PO ×2 (08:07→17:42)
[2018-07-02] MEDS: Lubiprostone 24 MCG Capsule PO ×2 (08:08→21:10)
[2018-07-02] MEDS: tiZANidine HCl 2 MG Tablet 4 MG PO ×4 (08:08→21:08)
[2018-07-02] MEDS: HYDROmorphone 2 MG TABLET PO ×3 (08:53→21:10)
--- NOTE | 2018-07-02 09:51 | PCM.PN.HOSP ---
Patient Problems: Active and Suspected Problems (Last Reviewed 06/30/18 @ 15:47 by Jonny Key DO) Cellulitis of right hand (Acute) Subjective: Still with right hand pain. No numbness in fingers. Vitals/I&O's: Vital Signs Temp Pulse Resp BP Pulse Ox 36.6 C 80 18 106/74 96 07/02/18 08:00 07/02/18 08:00 07/02/18 08:00 07/02/18 08:00 07/02/18 08:00 Oxygen Flow Rate (L/min) 2 Oxygen Delivery Method Room Air Weight: 107.1 kg Body Mass Index (BMI) 39.2 Finger Stick Blood Glucose 111 Intake and Output for Last 24 Hours 06/30/18 07/01/18 07/02/18 23:59 23:59 23:59 Intake Total 4085 / 4085 1672 / 1672 Output Total 250 / 250 1000 / 1000 Balance 3835 / 3835 672 / 672 General: Alert, Cooperative, No apparent distress HEENT: Atraumatic, Normocephalic Neck: No Nodes, Thyroid Normal Size and Texture Lungs: Clear to auscultation, Normal air movement, No rhonchi, No wheeze Cardiovascular: Regular rate, Regular Rhythm, Normal S1, Normal S2, No murmurs Abdomen: Bowel Sounds Present, Soft, Non Tender, Non-Distended, Obese Extremities: No edema, No Calf Tenderness Musculoskeletal: - - right hand and wrist wrapped, did not remove. Psych/Mental Status: Normal Affect, Appropriate Microbiology Past 72 Hours 07/01/18 Unknown Wound Abcess - Right Hand Gram Stain - Final Laboratory Results 07/01/18 10:20: POC Glucose 100 07/01/18 11:56: POC Glucose 163 H 07/01/18 17:06: POC Glucose 151 H 07/01/18 22:07: POC Glucose 132 H 07/01/18 : S.aureus Protein A PCR NEGATIVE, MRSA (PCR) Negative 07/02/18 01:28: Vancomycin Trough 13.9 07/02/18 05:40: WBC 11.9 H, RBC 3.54 L, Hgb 10.6 L, Hct 33.7 L, MCV 95.2, MCH 29.9, MCHC 31.5 L, RDW 15.0 H, RDW Differential 50.8 H, Plt Count 312, MPV 9.5 07/02/18 05:40: Sodium 143, Potassium 4.3, Chloride 107, Carbon Dioxide 29.0, Anion Gap 7, BUN 12, Creatinine 0.73, Estim Creat Clear Calc 98.63, Est GFR (MDRD) Af Amer 118, Est GFR (MDRD) Non-Af 97, BUN/Creatinine Ratio 16.4, Glucose 113 H, Calcium 8.7, Prealbumin 17.0 L 07/02/18 06:45: POC Glucose 152 H Current Medications Acetaminophen (Tylenol) 650 mg PO Q6H PRN PRN PRN Reason: Mild Pain (1-3)/Temp > 100.7 F Last Admin: 07/01/18 20:26 Dose: 650 mg Albuterol Sulfate (Ventolin Aerosols) 2.5 mg INHALATION Q4H PRN PRN PRN Reason: ALLERGIES Atorvastatin Calcium (Lipitor) 20 mg PO QHS [facility] Last Admin: 07/01/18 21:06 Dose: 20 mg Buspirone HCl (Buspar) 20 mg PO TID [facility] Last Admin: 07/02/18 05:46 Dose: 20 mg Clonidine (Catapres) 0.1 mg PO DAILY PRN PRN PRN Reason: ANXIETY Dextrose (D50w Syringe) 0 gm IV X1 PRN; Protocol PRN Reason: Hypoglycemia Diazepam (Valium) 5 mg PO 4X/DAY PRN PRN PRN Reason: spasm Duloxetine HCl (Cymbalta) 30 mg PO DAILY [facility] Last Admin: 07/02/18 08:05 Dose: 30 mg Duloxetine HCl (Cymbalta) 60 mg PO DAILY [facility] Last Admin: 07/02/18 08:05 Dose: 60 mg Enoxaparin Sodium (Lovenox) 40 mg SC DAILY@1000 [facility] Last Admin: 07/02/18 08:04 Dose: 40 mg Gabapentin (Neurontin) 300 mg PO 4X/DAYCM [facility] Last Admin: 07/02/18 08:04 Dose: 300 mg Glipizide (Glucotrol) 15 mg PO DAILY@0730 [facility] Last Admin: 07/02/18 08:06 Dose: 15 mg Glucagon () 1 mg IM .X1 PRN PRN Reason: Hypoglycemia Hydromorphone HCl (Dilaudid Tablet) 2 - 4 mg PO 4X/DAY PRN PRN PRN Reason: PAIN Last Admin: 07/02/18 08:53 Dose: 4 mg Hydromorphone HCl (Dilaudid Inj) 1 mg IV Q4H PRN PRN PRN Reason: SEVERE PAIN (6-10/10) Last Admin: 07/02/18 05:47 Dose: 1 mg Azithromycin 500 mg/ Dextrose 255 mls @ 250 mls/hr IV Q24 [facility] Last Admin: 07/01/18 11:44 Dose: 250 mls/hr Vancomycin HCl 1,500 mg/ (Sodium Chloride) 530 mls @ 250 mls/hr IV Q12H [facility] Last Admin: 07/02/18 01:57 Dose: 250 mls/hr Insulin Glargine (Lantus (Bkc)) 10 units SC QHS [facility] Last Admin: 07/01/18 22:07 Dose: 10 u Insulin Human Lispro (Humalog Kwikpen (Bkc)) 0 unit SQ TIDAC [facility] PRN Reason: Protocol Last Admin: 07/02/18 06:46 Dose: 1 units [place] Carbonate ([place] Carbonate) 300 mg PO BID [facility] Last Admin: 07/02/18 08:07 Dose: 300 mg Lubiprostone (Amitiza) 24 mcg PO BID [facility] Last Admin: 07/02/18 08:08 Dose: 24 mcg Magnesium Hydroxide (Milk Of Magnesia) 30 ml PO DAILY PRN PRN PRN Reason: Constipation Meloxicam (Mobic) 7.5 mg PO DAILY [facility] Last Admin: 07/02/18 08:06 Dose: 7.5 mg [facility]) [facility] Last Admin: 07/02/18 08:07 Dose: 1,000 mg Morphine Sulfate () 2 - 4 mg IV Q4H PRN PRN PRN Reason: BREAKTHROUGH PAIN (>4/10) Last Admin: 07/01/18 06:11 Dose: 4 mg Nicotine (Nicoderm Cq (Pbkc)) 21 mg TRANSDERM. DAILY [facility] Last Admin: 07/02/18 08:03 Dose: 21 mg Nutritional Formula (Kofi - [place] Flavor) 1 packet PO BIDCM [facility] Last Admin: 07/02/18 08:04 Dose: 1 packet Ondansetron HCl (Zofran) 4 mg IV Q8H PRN PRN PRN Reason: NAUSEA Last Admin: 07/02/18 06:42 Dose: 4 mg Pantoprazole Sodium (Protonix) 20 mg PO DAILY [facility] Last Admin: 07/02/18 08:06 Dose: 20 mg Promethazine HCl (Phenergan Tablet) 25 mg PO 4X/DAY PRN PRN PRN Reason: NAUSEA/VOMITING Quetiapine Fumarate (Seroquel) 400 mg PO BID [facility] Last Admin: 07/02/18 08:04 Dose: 400 mg Sodium Chloride () 5 - 30 ml IV UD PRN PRN Reason: SALINE FLUSH Last Admin: 07/02/18 06:42 Dose: 10 ml Spironolactone (Aldactone) 100 mg PO DAILY [facility] Last Admin: 07/02/18 08:06 Dose: 100 mg Tizanidine HCl (Zanaflex) 4 mg PO 4X/DAY [facility] Last Admin: 07/02/18 08:08 Dose: 4 mg Medical Necessity - Tobacco Use Smoking Status: Heavy Smoker (>10/day) Tobacco Use: Cigarettes Assessment/Plan All Active Problems (Last Reviewed 06/30/18 @ 15:47 by Jonny Key DO) Cellulitis of right hand (Acute) Muscle spasms of neck (Acute) Abscess, scalp (Acute) Folliculitis (Acute) Diabetes mellitus type 2, uncontrolled (Acute) Unspecified open wound of unspecified part of neck, subsequent encounter (Acute) Unspecified open wound of unspecified part of head, subsequent encounter (Acute) Open wound involving head with neck, complicated (Acute) Abscess of neck (Acute) History of section (Acute) History of tonsillectomy (Acute) Cat scratch of left hand with infection (Acute) Cat scratch of right hand with infection (Acute) Cat scratch (Acute) Open wound of left axillary region (Acute) Abscess of sternal region (Acute) Open wound of chest wall, complicated (Acute) Abscess of breast (Acute) 1. Right hand cellulitis Suspect secondary to the patient's cutting. Appears more like a staph infection than anything Patient will be on vancomycin Follow patient's response s/p I+D on 07/01 Given the cat scratch will also add azithromycin cultures still pending 2. Hidradenitis suppurativa Patient's had numerous surgeries, approximately 36 involving her axilla, breasts neck and groin No acute issues at this time 3. Diabetes mellitus type 2 Continue with her home medications and sliding scale fair control 4. DVT prophylaxis: Moderate risk. Lovenox. Code Visit Inpatient E&M: 51928 Subs Hosp L2
--- NOTE | 2018-07-02 09:54 | PN_ITS ---
Patient Problems: Active and Suspected Problems (Last Reviewed 06/30/18 @ 15:47 by Jonny Key DO) Cellulitis of right hand (Acute) Subjective: Still with right hand pain. No numbness in fingers. Vitals/I&O's: Vital Signs Temp Pulse Resp BP Pulse Ox 36.6 C 80 18 106/74 96 07/02/18 08:00 07/02/18 08:00 07/02/18 08:00 07/02/18 08:00 07/02/18 08:00 Oxygen Flow Rate (L/min) 2 Oxygen Delivery Method Room Air Weight: 107.1 kg Body Mass Index (BMI) 39.2 Finger Stick Blood Glucose 111 Intake and Output for Last 24 Hours 06/30/18 07/01/18 07/02/18 23:59 23:59 23:59 Intake Total 4085 / 4085 1672 / 1672 Output Total 250 / 250 1000 / 1000 Balance 3835 / 3835 672 / 672 General: Alert, Cooperative, No apparent distress HEENT: Atraumatic, Normocephalic Neck: No Nodes, Thyroid Normal Size and Texture Lungs: Clear to auscultation, Normal air movement, No rhonchi, No wheeze Cardiovascular: Regular rate, Regular Rhythm, Normal S1, Normal S2, No murmurs Abdomen: Bowel Sounds Present, Soft, Non Tender, Non-Distended, Obese Extremities: No edema, No Calf Tenderness Musculoskeletal: - - right hand and wrist wrapped, did not remove. Psych/Mental Status: Normal Affect, Appropriate Microbiology Past 72 Hours 07/01/18 Unknown Wound Abcess - Right Hand Gram Stain - Final Laboratory Results 07/01/18 10:20: POC Glucose 100 07/01/18 11:56: POC Glucose 163 H 07/01/18 17:06: POC Glucose 151 H 07/01/18 22:07: POC Glucose 132 H 07/01/18 : S.aureus Protein A PCR NEGATIVE, MRSA (PCR) Negative 07/02/18 01:28: Vancomycin Trough 13.9 07/02/18 05:40: WBC 11.9 H, RBC 3.54 L, Hgb 10.6 L, Hct 33.7 L, MCV 95.2, MCH 29.9, MCHC 31.5 L, RDW 15.0 H, RDW Differential 50.8 H, Plt Count 312, MPV 9.5 07/02/18 05:40: Sodium 143, Potassium 4.3, Chloride 107, Carbon Dioxide 29.0, Anion Gap 7, BUN 12, Creatinine 0.73, Estim Creat Clear Calc 98.63, Est GFR ( MDRD) Af Amer 118, Est GFR (MDRD) Non-Af 97, BUN/Creatinine Ratio 16.4, Glucose 113 H, Calcium 8.7, Prealbumin 17.0 L 07/02/18 06:45: POC Glucose 152 H Current Medications Acetaminophen (Tylenol) 650 mg PO Q6H PRN PRN PRN Reason: Mild Pain (1-3)/Temp > 100.7 F Last Admin: 07/01/18 20:26 Dose: 650 mg Albuterol Sulfate (Ventolin Aerosols) 2.5 mg INHALATION Q4H PRN PRN PRN Reason: ALLERGIES Atorvastatin Calcium (Lipitor) 20 mg PO QHS [facility] Last Admin: 07/01/18 21:06 Dose: 20 mg Buspirone HCl (Buspar) 20 mg PO TID [facility] Last Admin: 07/02/18 05:46 Dose: 20 mg Clonidine (Catapres) 0.1 mg PO DAILY PRN PRN PRN Reason: ANXIETY Dextrose (D50w Syringe) 0 gm IV X1 PRN; Protocol PRN Reason: Hypoglycemia Diazepam (Valium) 5 mg PO 4X/DAY PRN PRN PRN Reason: spasm Duloxetine HCl (Cymbalta) 30 mg PO DAILY [facility] Last Admin: 07/02/18 08:05 Dose: 30 mg Duloxetine HCl (Cymbalta) 60 mg PO DAILY [facility] Last Admin: 07/02/18 08:05 Dose: 60 mg Enoxaparin Sodium (Lovenox) 40 mg SC DAILY@1000 [facility] Last Admin: 07/02/18 08:04 Dose: 40 mg Gabapentin (Neurontin) 300 mg PO 4X/DAYCM [facility] Last Admin: 07/02/18 08:04 Dose: 300 mg Glipizide (Glucotrol) 15 mg PO DAILY@0730 [facility] Last Admin: 07/02/18 08:06 Dose: 15 mg Glucagon () 1 mg IM .X1 PRN PRN Reason: Hypoglycemia Hydromorphone HCl (Dilaudid Tablet) 2 - 4 mg PO 4X/DAY PRN PRN PRN Reason: PAIN Last Admin: 07/02/18 08:53 Dose: 4 mg Hydromorphone HCl (Dilaudid Inj) 1 mg IV Q4H PRN PRN PRN Reason: SEVERE PAIN (6-10/10) Last Admin: 07/02/18 05:47 Dose: 1 mg Azithromycin 500 mg/ Dextrose 255 mls @ 250 mls/hr IV Q24 [facility] Last Admin: 07/01/18 11:44 Dose: 250 mls/hr Vancomycin HCl 1,500 mg/ (Sodium Chloride) 530 mls @ 250 mls/hr IV Q12H [facility] Last Admin: 07/02/18 01:57 Dose: 250 mls/hr Insulin Glargine (Lantus (Bkc)) 10 units SC QHS [facility] Last Admin: 07/01/18 22:07 Dose: 10 u Insulin Human Lispro (Humalog Kwikpen (Bkc)) 0 unit SQ TIDAC [facility] PRN Reason: Protocol Last Admin: 07/02/18 06:46 Dose: 1 units [place] Carbonate ([place] Carbonate) 300 mg PO BID [facility] Last Admin: 07/02/18 08:07 Dose: 300 mg Lubiprostone (Amitiza) 24 mcg PO BID [facility] Last Admin: 07/02/18 08:08 Dose: 24 mcg Magnesium Hydroxide (Milk Of Magnesia) 30 ml PO DAILY PRN PRN PRN Reason: Constipation Meloxicam (Mobic) 7.5 mg PO DAILY [facility] Last Admin: 07/02/18 08:06 Dose: 7.5 mg [facility] Last Admin: 07/02/18 08:07 Dose: 1,000 mg Morphine Sulfate () 2 - 4 mg IV Q4H PRN PRN PRN Reason: BREAKTHROUGH PAIN (>4/10) Last Admin: 07/01/18 06:11 Dose: 4 mg Nicotine (Nicoderm Cq (Pbkc)) 21 mg TRANSDERM. DAILY [facility] Last Admin: 07/02/18 08:03 Dose: 21 mg Nutritional Formula ([employer] - [place] Flavor) 1 packet PO BIDCM [facility] Last Admin: 07/02/18 08:04 Dose: 1 packet Ondansetron HCl (Zofran) 4 mg IV Q8H PRN PRN PRN Reason: NAUSEA Last Admin: 07/02/18 06:42 Dose: 4 mg Pantoprazole Sodium (Protonix) 20 mg PO DAILY [facility] Last Admin: 07/02/18 08:06 Dose: 20 mg Promethazine HCl (Phenergan Tablet) 25 mg PO 4X/DAY PRN PRN PRN Reason: NAUSEA/VOMITING Quetiapine Fumarate (Seroquel) 400 mg PO BID [facility] Last Admin: 07/02/18 08:04 Dose: 400 mg Sodium Chloride () 5 - 30 ml IV UD PRN PRN Reason: SALINE FLUSH Last Admin: 07/02/18 06:42 Dose: 10 ml Spironolactone (Aldactone) 100 mg PO DAILY [facility] Last Admin: 07/02/18 08:06 Dose: 100 mg Tizanidine HCl (Zanaflex) 4 mg PO 4X/DAY [facility] Last Admin: 07/02/18 08:08 Dose: 4 mg Medical Necessity - Tobacco Use Smoking Status: Heavy Smoker (>10/day) Tobacco Use: Cigarettes Assessment/Plan All Active Problems (Last Reviewed 06/30/18 @ 15:47 by Jonny Key DO) Cellulitis of right hand (Acute) Muscle spasms of neck (Acute) Abscess, scalp (Acute) Folliculitis (Acute) Diabetes mellitus type 2, uncontrolled (Acute) Unspecified open wound of unspecified part of neck, subsequent encounter (Acute) Unspecified open wound of unspecified part of head, subsequent encounter (Acute) Open wound involving head with neck, complicated (Acute) Abscess of neck (Acute) History of section (Acute) History of tonsillectomy (Acute) Cat scratch of left hand with infection (Acute) Cat scratch of right hand with infection (Acute) Cat scratch (Acute) Open wound of left axillary region (Acute) Abscess of sternal region (Acute) Open wound of chest wall, complicated (Acute) Abscess of breast (Acute) 1. Right hand cellulitis * Suspect secondary to the patient's cutting. Appears more like a staph infection than anything * Patient will be on vancomycin * Follow patient's response * s/p I+D on 07/01 * Given the cat scratch will also add azithromycin * cultures still pending 2. Hidradenitis suppurativa * Patient's had numerous surgeries, approximately 36 involving her axilla, breasts neck and groin * No acute issues at this time 3. Diabetes mellitus type 2 * Continue with her home medications and sliding scale * fair control 4. DVT prophylaxis: Moderate risk. Lovenox. Code Visit Inpatient E&M: 18949 Subs Hosp L2
[2018-07-02] MEDS: Permethrin 1% 1 APPLIC Bottle TOPICAL (11:02)
[2018-07-02 11:15] LABS: Bedside Glucose 133 mg/dL (70-110)
--- NOTE | 2018-07-02 11:40 | PCM.PN.SRG ---
Patient Problems: Active and Suspected Problems (Last Reviewed 06/30/18 @ 15:47 by Jonny Key DO) Cellulitis of right hand (Acute) Subjective: Postop #1 Patient complains of right hand wound pain. Nursing found lice on her scalp. Will apply Nix shampoo. - Physical Exam General: Alert, Oriented x3 HEENT: PERRLA, EOMI Oral: Moist Mucosa Neck: Supple Abdomen: Soft, Non-Distended Extremities: No clubbing, No cyanosis, Edema - mild edema right hand, slowly resolving., Peripheral Pulses Normal Skin: Ulcer/ Wound - right hand wound is stable. No bleeding. Aquacel Silver dressing change done today. Tolerated reasonably well with IV analgesia. Lymphatic: - - no axillary adenopathy. Neurological: Cranial nerves II-XII grossly intact Psych/Mental Status: Normal Affect, Appropriate Vital Signs Temp Pulse Resp BP Pulse Ox 97.8 F 80 18 106/74 96 07/02/18 08:00 07/02/18 08:00 07/02/18 08:00 07/02/18 08:00 07/02/18 08:00 Oxygen Flow Rate (L/min) 2 Oxygen Delivery Method Room Air Weight: 236 lb 1.841 oz Body Mass Index (BMI) 39.2 Finger Stick Blood Glucose 111 Intake and Output for Last 24 Hours 06/30/18 07/01/18 07/02/18 23:59 23:59 23:59 Intake Total 4085 / 4085 2168 / 2168 Output Total 250 / 250 1000 / 1000 Balance 3835 / 3835 1168 / 1168 Microbiology Past 72 Hours 07/01/18 Unknown Gram Stain - Final Wound Abcess - Right Hand Wound Culture - Preliminary Gram negative harika GNR lactose active directory specialist Laboratory Tests Past 24 Hrs 07/02/18 07/02/18 07/02/18 01:28 05:40 05:40 WBC 11.9 H RBC 3.54 L Hgb 10.6 L Hct 33.7 L MCV 95.2 MCH 29.9 MCHC 31.5 L RDW 15.0 H RDW Differential 50.8 H Plt Count 312 MPV 9.5 Sodium 143 Potassium 4.3 Chloride 107 Carbon Dioxide 29.0 Anion Gap 7 BUN 12 Creatinine 0.73 Estim Creat Clear Calc 98.63 Est GFR (MDRD) Af Amer 118 Est GFR (MDRD) Non-Af 97 BUN/Creatinine Ratio 16.4 Glucose 113 H Calcium 8.7 Prealbumin 17.0 L Vancomycin Trough 13.9 POC Glucose 07/02/18 07/02/18 07/01/18 11:08 06:45 22:07 POC Glucose 133 H 152 H 132 H 07/01/18 07/01/18 17:06 11:56 POC Glucose 151 H 163 H Medical Necessity - Tobacco Use Smoking Status: Heavy Smoker (>10/day) Tobacco Use: Cigarettes Assessment/Plan All Active Problems (Last Reviewed 06/30/18 @ 15:47 by Jonny Key DO) Cellulitis of right hand (Acute) Muscle spasms of neck (Acute) Abscess, scalp (Acute) Folliculitis (Acute) Diabetes mellitus type 2, uncontrolled (Acute) Unspecified open wound of unspecified part of neck, subsequent encounter (Acute) Unspecified open wound of unspecified part of head, subsequent encounter (Acute) Open wound involving head with neck, complicated (Acute) Abscess of neck (Acute) History of section (Acute) History of tonsillectomy (Acute) Cat scratch of left hand with infection (Acute) Cat scratch of right hand with infection (Acute) Cat scratch (Acute) Open wound of left axillary region (Acute) Abscess of sternal region (Acute) Open wound of chest wall, complicated (Acute) Abscess of breast (Acute) 1. Cat scratch bite abscess dorsum right hand at first web space. 2. Diabetes mellitus. 3. Smoker. 4. Head lice. MRSA Wound DNA by PCR was negative. Will stop the Vancomycin. Operative culture shows Gram negative harika and GNR lactose active directory specialist. Will add Unasyn and continue the Azithromycin. Will leave the wound open and pack with Silver dressings to be done daily. She tolerated the Silver dressing change and needed IV analgesia. Her posterior neck/occipital scalp wound is healing satisfactory from her hidradenitis surgery on 05/19/18. Will continue Silver dressing changes there as well. Will wean to po analgesia for discharge. Anticipate in next 1-2 days. Encourage range of motion exercises to minimize stiffness. Will need OT after discharge for range of motion exercises, strengthening, and edema management. Prealbumin was 17.0. Encourage nutritional supplementation with protein to help the healing process. Encouraged patient to stop smoking as it may have deleterious effects on wound healing. Patient has head lice. Will apply Nix shampoo today. May need to reapply in a week. Instructed patient to call family members to apply the shampoo as well. Also to launder the sheets. She voiced understanding. Patient thinks her daughter may have gotten it from the [email or web address] [facility] [place].
[2018-07-02 14:00] VITALS: BP 117/81; PULSE 79; RESP 16; TEMP 36.5; O2SAT 95
[2018-07-02 17:51] LABS: Bedside Glucose 84 mg/dL (70-110)
[2018-07-02 20:00] VITALS: BP 143/83; PULSE 73; RESP 16; TEMP 36.7; O2SAT 98
[2018-07-02] MEDS: Atorvastatin Calcium 20 MG Tablet PO (21:09)
[2018-07-02 22:36] LABS: Bedside Glucose 209 mg/dL (70-110)
[2018-07-03] MEDS: HYDROmorphone 1 MG/ML Syringe IV ×2 (01:15→08:17)
[2018-07-03 02:00] VITALS: BP 128/55; PULSE 85; RESP 16; TEMP 36.6; O2SAT 97
[2018-07-03] MEDS: HYDROmorphone 2 MG TABLET PO ×4 (04:03→20:24)
[2018-07-03 04:28] LABS: Absolute Lymphocyte Count 3.77 X10^3/ul (0.83-4.51); Absolute Neutrophil Count 5.9 X10^3/uL (2.0-7.7); Basophil# 0.06 X10^3/uL; Basophil% 0.5 % (0-1); Eosinophil# 1.29 X10^3/uL; Hematocrit 35.1 % (37-47); Hemoglobin 10.9 g/dl (12.0-15.0); Lymphocyte # 3.77 X10^3/ul (4.0); Lymphocyte % 32.2 % (19-41); Mean Corp Hgb Conc 31.1 g/gl (32-36); Mean Corpuscular Hgb 29.6 pg (27.0-32.0); Mean Corpuscular Volume 95.4 fL (81-99); Mean Platelet Vol. 9.5 fl (6.2-12.0); Monocyte# 0.63 X10^3/uL; Monocyte% 5.4 % (0-10); Neutrophil # 5.91 X10^3/uL (2.7-7.7); Neutrophil % 50.6 % (47-70); Platelet Count 338 K/mm3 (150-450); RBC Distribution Width CV 14.9 % (11.6-14.6); RBC Distribution Width SD 50.1 fl (35.1-43.9); Red Blood Count 3.68 M/mm3 (4.2-5.4); White Blood Count 11.7 K/mm3 (4.4-11.0)
[2018-07-03 04:30] LABS: Anion Gap 10 (5-15); BUN 13 mg/dL (7-18); BUN/Creat Ratio 15.1 RATIO (10-20); Calcium,Total 8.9 mg/dL (8.5-10.1); Chloride 104 mmol/L (98-107); Creatinine, Serum 0.86 mg/dL (0.55-1.02); EST Glomerular Filtration Rate 80 mL/min (>60); Est Glom Filt Rate - Afr Amer 97 mL/min (>60); Estimated Creatinine Clearance 83.72 ml/min; Glucose 142 mg/dL (74-106); Sodium Level 144 mmol/L (136-145)
[2018-07-03 04:32] LABS: POSITIVE COUNT NO; POSITIVE DIFFERENTIAL NO; POSITIVE MORPHOLOGY NO
[2018-07-03] MEDS: busPIRone 5 MG Tablet 20 MG PO ×3 (07:04→22:11)
[2018-07-03 07:20] LABS: Bedside Glucose 148 mg/dL (70-110)
[2018-07-03 08:02] VITALS: BP 115/80; PULSE 82; RESP 16; TEMP 36.5; O2SAT 98
[2018-07-03] MEDS: metFORMIN HCl 1,000 MG Tablet 1000 MG PO ×2 (08:07→17:15)
[2018-07-03] MEDS: Gabapentin 300 MG Capsule PO ×4 (08:08→22:11)
[2018-07-03] MEDS: glipiZIDE 5 MG Tablet 15 MG PO (08:09)
[2018-07-03] MEDS: Pantoprazole Sodium 20 MG Tablet PO (08:10)
[2018-07-03] MEDS: DULoxetine Hcl 30 MG Capsule PO (08:11)
[2018-07-03] MEDS: Lithium Carbonate 300mg Capsule 300 MG PO ×2 (08:14→22:11)
[2018-07-03] MEDS: QUEtiapine 100 MG Tablet 400 MG PO ×2 (08:14→22:11)
[2018-07-03] MEDS: Meloxicam 7.5 MG Tablet PO (08:14)
[2018-07-03] MEDS: DULoxetine Hcl 60 MG Capsule PO (08:15)
[2018-07-03] MEDS: Spironolactone 50 MG Tablet 100 MG PO (08:16)
[2018-07-03] MEDS: Lubiprostone 24 MCG Capsule PO ×2 (08:16→22:11)
[2018-07-03] MEDS: Enoxaparin 40 MG/0.4 ML Syringe SC (08:16)
[2018-07-03] MEDS: tiZANidine HCl 2 MG Tablet 4 MG PO ×4 (08:17→22:11)
--- NOTE | 2018-07-03 09:17 | PCM.PN.HOSP ---
Patient Problems: Active and Suspected Problems (Last Reviewed 06/30/18 @ 15:47 by Jonny Key DO) Necrotizing soft tissue infection (Acute) Abscess of dorsum of right hand (Acute) cat scratch bite abscess dorsum right hand by first web space Cat bite of right hand with infection (Acute) cat scratch bite abscess dorsum right hand by first web space Cat bite (Acute) cat scratch bite abscess dorsum right hand by first web space Cellulitis of right hand (Acute) Subjective: still with hand pain. found to have had lice yesterday by nursing and received Nix shampoo. Patient thinks she may have gotten this from one of her daughter's friends who used her brush. Vitals/I&O's: Vital Signs Temp Pulse Resp BP Pulse Ox 36.5 C L 82 16 115/80 98 07/03/18 08:02 07/03/18 08:02 07/03/18 08:02 07/03/18 08:02 07/03/18 08:02 Oxygen Flow Rate (L/min) 2 Oxygen Delivery Method Room Air Weight: 107.1 kg Body Mass Index (BMI) 39.2 Finger Stick Blood Glucose 111 Intake and Output for Last 24 Hours 07/01/18 07/02/18 07/03/18 23:59 23:59 23:59 Intake Total 4085 / 4085 3082 / 3082 1158 / 1158 Output Total 250 / 250 1000 / 1000 Balance 3835 / 3835 2082 / 2082 1158 / 1158 General: Alert, No apparent distress, - - groggy HEENT: Atraumatic, Normocephalic Extremities: No edema, No Calf Tenderness Neurological: - - moves right fingers spontaneoulsy. Psych/Mental Status: Normal Affect, Appropriate Microbiology Past 72 Hours 07/01/18 Unknown Wound Abcess - Right Hand Gram Stain - Final 07/01/18 Unknown Wound Abcess - Right Hand Wound Culture - Preliminary Gram negative harika GNR lactose mortar maker Laboratory Results 07/02/18 11:08: POC Glucose 133 H 07/02/18 17:36: POC Glucose 84 07/02/18 21:17: POC Glucose 209 H 07/03/18 04:00: WBC 11.7 H, RBC 3.68 L, Hgb 10.9 L, Hct 35.1 L, MCV 95.4, MCH 29.6, MCHC 31.1 L, RDW 14.9 H, RDW Differential 50.1 H, Plt Count 338, MPV 9.5, Immature Gran % (Auto) 0.300, Neut % (Auto) 50.6, Lymph % (Auto) 32.2, [place] % (Auto) 5.4, Eos % (Auto) 11.0 H, Baso % (Auto) 0.5, Absolute Neuts (auto) 5.9, Absolute Lymphs (auto) 3.77, Total Counted Not Reportable 07/03/18 04:00: Sodium 144, Potassium 4.0, Chloride 104, Carbon Dioxide 30.0, Anion Gap 10, BUN 13, Creatinine 0.86, Estim Creat Clear Calc 83.72, Est GFR (MDRD) Af Amer 97, Est GFR (MDRD) Non-Af 80, BUN/Creatinine Ratio 15.1, Glucose 142 H, Calcium 8.9 07/03/18 07:01: POC Glucose 148 H Current Medications Acetaminophen (Tylenol) 650 mg PO Q6H PRN PRN PRN Reason: Mild Pain (1-3)/Temp > 100.7 F Last Admin: 07/01/18 20:26 Dose: 650 mg Albuterol Sulfate (Ventolin Aerosols) 2.5 mg INHALATION Q4H PRN PRN PRN Reason: ALLERGIES Atorvastatin Calcium (Lipitor) 20 mg PO QHS [facility] Last Admin: 07/02/18 21:09 Dose: 20 mg Buspirone HCl (Buspar) 20 mg PO TID [facility] Last Admin: 07/03/18 07:04 Dose: 20 mg Clonidine (Catapres) 0.1 mg PO DAILY PRN PRN PRN Reason: ANXIETY Dextrose (D50w Syringe) 0 gm IV X1 PRN; Protocol PRN Reason: Hypoglycemia Diazepam (Valium) 5 mg PO 4X/DAY PRN PRN PRN Reason: spasm Duloxetine HCl (Cymbalta) 30 mg PO DAILY [facility] Last Admin: 07/03/18 08:11 Dose: 30 mg Duloxetine HCl (Cymbalta) 60 mg PO DAILY [facility] Last Admin: 07/03/18 08:15 Dose: 60 mg Enoxaparin Sodium (Lovenox) 40 mg SC DAILY@1000 [facility] Last Admin: 08/13/18 08:16 Dose: 40 mg Gabapentin (Neurontin) 300 mg PO 4X/DAYCM [facility] Last Admin: 07/03/18 08:08 Dose: 300 mg Glipizide (Glucotrol) 15 mg PO DAILY@0730 [facility] Last Admin: 07/03/18 08:09 Dose: 15 mg Glucagon () 1 mg IM .X1 PRN PRN Reason: Hypoglycemia Hydromorphone HCl (Dilaudid Tablet) 2 - 4 mg PO 4X/DAY PRN PRN PRN Reason: PAIN Last Admin: 07/03/18 04:03 Dose: 4 mg Hydromorphone HCl (Dilaudid Inj) 1 mg IV Q4H PRN PRN PRN Reason: SEVERE PAIN (6-10/10) Last Admin: 07/03/18 08:17 Dose: 1 mg Azithromycin 500 mg/ Dextrose 255 mls @ 250 mls/hr IV Q24 [facility] Last Admin: 07/02/18 11:02 Dose: 250 mls/hr Ampicillin Sodium/Sulbactam (Sodium 3 gm/ Sodium Chloride) 112 mls @ 150 mls/hr IV Q6 [facility] Last Admin: 07/03/18 07:04 Dose: 150 mls/hr Insulin Glargine (Lantus (Bkc)) 10 units SC QHS [facility] Last Admin: 07/02/18 21:17 Dose: 10 u Insulin Human Lispro (Humalog Kwikpen (Bkc)) 0 unit SQ TIDAC [facility] PRN Reason: Protocol Last Admin: 07/03/18 07:04 Dose: Not Given [place] Carbonate ([place] Carbonate) 300 mg PO BID [facility] Last Admin: 07/03/18 08:14 Dose: 300 mg Lubiprostone (Amitiza) 24 mcg PO BID [facility] Last Admin: 07/03/18 08:16 Dose: 24 mcg Magnesium Hydroxide (Milk Of Magnesia) 30 ml PO DAILY PRN PRN PRN Reason: Constipation Meloxicam (Mobic) 7.5 mg PO DAILY [facility] Last Admin: 07/03/18 08:14 Dose: 7.5 mg Metformin HCl (Glucophage) 1,000 mg PO BIDCM [facility] Last Admin: 07/03/18 08:07 Dose: 1,000 mg Morphine Sulfate () 2 - 4 mg IV Q4H PRN PRN PRN Reason: BREAKTHROUGH PAIN (>4/10) Last Admin: 07/01/18 06:11 Dose: 4 mg Nicotine (Nicoderm Cq (Pbkc)) 21 mg TRANSDERM. DAILY [facility] Last Admin: 07/03/18 08:12 Dose: 21 mg Nutritional Formula ([place] - [place] Flavor) [facility] Last Admin: 07/03/18 08:09 Dose: 1 packet Ondansetron HCl (Zofran) 4 mg IV Q8H PRN PRN PRN Reason: NAUSEA Last Admin: 07/02/18 06:42 Dose: 4 mg Pantoprazole Sodium (Protonix) 20 mg PO DAILY [facility] Last Admin: 07/03/18 08:10 Dose: 20 mg Promethazine HCl (Phenergan Tablet) 25 mg PO 4X/DAY PRN PRN PRN Reason: NAUSEA/VOMITING Quetiapine Fumarate (Seroquel) 400 mg PO BID [facility] Last Admin: 07/03/18 08:14 Dose: 400 mg Sodium Chloride () 5 - 30 ml IV UD PRN PRN Reason: SALINE FLUSH Last Admin: 07/02/18 11:02 Dose: 10 ml Spironolactone (Aldactone) 100 mg PO DAILY [facility] Last Admin: 07/03/18 08:16 Dose: 100 mg Tizanidine HCl (Zanaflex) 4 mg PO 4X/DAY [facility] Last Admin: 07/03/18 08:17 Dose: 4 mg Medical Necessity - Tobacco Use Smoking Status: Heavy Smoker (>10/day) Tobacco Use: Cigarettes Assessment/Plan All Active Problems (Last Reviewed 06/30/18 @ 15:47 by Jonny Key DO) Necrotizing soft tissue infection (Acute) Abscess of dorsum of right hand (Acute) Cat bite of right hand with infection (Acute) Cat bite (Acute) Cellulitis of right hand (Acute) Muscle spasms of neck (Acute) Abscess, scalp (Acute) Folliculitis (Acute) Diabetes mellitus type 2, uncontrolled (Acute) Unspecified open wound of unspecified part of neck, subsequent encounter (Acute) Unspecified open wound of unspecified part of head, subsequent encounter (Acute) Open wound involving head with neck, complicated (Acute) Abscess of neck (Acute) History of section (Acute) History of tonsillectomy (Acute) Cat scratch of left hand with infection (Acute) Cat scratch of right hand with infection (Acute) Cat scratch (Acute) Open wound of left axillary region (Acute) Abscess of sternal region (Acute) Open wound of chest wall, complicated (Acute) Abscess of breast (Acute) 1. Right hand cellulitis Suspect secondary to the patient's cutting. Appears more like a staph infection than anything Culture growing out GNR and GRN LF Vancomycin dc'd Now on Unasyn s/p I+D on 07/01 Given the cat scratch will also add azithromycin Likely due to self-inflicted cutting. Pt endorses that she cuts to cope. Uses needles, but not steak knives. Unfortunately I question if she does this for secondary gain. Pt endorsing severe pain, but appears comfortable and groggy. I informed the patient that I will significantly reduce the IV dilaudid dose and frequency. 2. Hidradenitis suppurativa Patient's had numerous surgeries, approximately 36 involving her axilla, breasts neck and groin No acute issues at this time 3. Diabetes mellitus type 2 Continue with her home medications and sliding scale fair control 4. DVT prophylaxis: Moderate risk. Lovenox. Code Visit Inpatient E&M: 21602 Subs Hosp L2
[2018-07-03] MEDS: Insulin Lispro 100 UNIT/ML INSULN.PEN SQ ×2 (11:15→16:03)
[2018-07-03 11:26] LABS: Bedside Glucose 295 mg/dL (70-110)
[2018-07-03 11:47] VITALS: BP 108/73; PULSE 94; RESP 16; TEMP 36.6; O2SAT 98
--- NOTE | 2018-07-03 12:35 | PCM.PN.SRG ---
Subjective: Postop #2 Patient is having pain in the right hand wound. A little less today. - Physical Exam General: Alert, Oriented x3 HEENT: PERRLA, EOMI Oral: Moist Mucosa Neck: Supple Abdomen: Soft, Non-Distended Skin: Ulcer/ Wound - right hand wound is stable. No bleeding. Aquacel Silver dressing change done today. Tolerated reasonably well., - - posterior neck/occipital scalp ulcer appears healed with a dry scab. Lymphatic: - - no axillary adenopathy. Neurological: Cranial nerves II-XII grossly intact Psych/Mental Status: Normal Affect, Appropriate Vital Signs Temp Pulse Resp BP Pulse Ox 97.8 F 94 16 108/73 98 07/03/18 11:47 07/03/18 11:47 07/03/18 11:47 07/03/18 11:47 07/03/18 11:47 Oxygen Flow Rate (L/min) 2 Oxygen Delivery Method Room Air Weight: 236 lb 1.841 oz Body Mass Index (BMI) 39.2 Finger Stick Blood Glucose 111 Intake and Output for Last 24 Hours 07/01/18 07/02/18 07/03/18 23:59 23:59 23:59 Intake Total 4085 / 4085 3082 / 3082 1758 / 1758 Output Total 250 / 250 1000 / 1000 Balance 3835 / 3835 2082 / 2082 1758 / 1758 Microbiology Past 72 Hours 07/01/18 Unknown Gram Stain - Final Wound Abcess - Right Hand Wound Culture - Preliminary Gram negative harika GNR lactose rate and cost analyst Laboratory Tests Past 24 Hrs 07/03/18 07/03/18 04:00 04:00 WBC 11.7 H RBC 3.68 L Hgb 10.9 L Hct 35.1 L MCV 95.4 MCH 29.6 MCHC 31.1 L RDW 14.9 H RDW Differential 50.1 H Plt Count 338 MPV 9.5 Immature Gran % (Auto) 0.300 Neut % (Auto) 50.6 Lymph % (Auto) 32.2 [place] % (Auto) 5.4 Eos % (Auto) 11.0 H Baso % (Auto) 0.5 Absolute Neuts (auto) 5.9 Absolute Lymphs (auto) 3.77 Total Counted Not Reportable Sodium 144 Potassium 4.0 Chloride 104 Carbon Dioxide 30.0 Anion Gap 10 BUN 13 Creatinine 0.86 Estim Creat Clear Calc 83.72 Est GFR (MDRD) Af Amer 97 Est GFR (MDRD) Non-Af 80 BUN/Creatinine Ratio 15.1 Glucose 142 H Calcium 8.9 POC Glucose 07/03/18 07/03/18 07/02/18 11:13 07:01 21:17 POC Glucose 295 H 148 H 209 H 07/02/18 17:36 POC Glucose 84 Medical Necessity - Tobacco Use Smoking Status: Heavy Smoker (>10/day) Tobacco Use: Cigarettes Assessment/Plan All Active Problems (Last Reviewed 06/30/18 @ 15:47 by Jonny Key DO) Necrotizing soft tissue infection (Acute) Abscess of dorsum of right hand (Acute) Cat bite of right hand with infection (Acute) Cat bite (Acute) Cellulitis of right hand (Acute) Muscle spasms of neck (Acute) Abscess, scalp (Acute) Folliculitis (Acute) Diabetes mellitus type 2, uncontrolled (Acute) Unspecified open wound of unspecified part of neck, subsequent encounter (Acute) Unspecified open wound of unspecified part of head, subsequent encounter (Acute) Open wound involving head with neck, complicated (Acute) Abscess of neck (Acute) History of section (Acute) History of tonsillectomy (Acute) Cat scratch of left hand with infection (Acute) Cat scratch of right hand with infection (Acute) Cat scratch (Acute) Open wound of left axillary region (Acute) Abscess of sternal region (Acute) Open wound of chest wall, complicated (Acute) Abscess of breast (Acute) 1. Cat scratch bite abscess dorsum right hand at first web space. 2. Diabetes mellitus. 3. Smoker. 4. Head lice. MRSA Wound DNA by PCR was negative. Vancomycin has been stopped. Operative culture shows Gram negative harika and GNR lactose rate and cost analyst. Continue Unasyn and Azithromycin. Awaiting further ID and Sensitivity to determine home antibiotics. She tolerated the Silver dressing change to the right hand reasonably well. Will wean to po analgesia for discharge. Anticipate in next 1-2 days. Encourage range of motion exercises to minimize stiffness. Will need OT after discharge for range of motion exercises, strengthening, and edema management. Prealbumin was 17.0. Encourage nutritional supplementation with protein to help the healing process. Encouraged patient to stop smoking as it may have deleterious effects on wound healing. Patient has head lice. Nix shampoo applied yesterday. May need to reapply in a week. Nurses report no more lice seen at this time. Instructed patient to call family members to apply the shampoo as well. Also to launder the sheets. She voiced understanding. Patient thinks her daughter may have gotten it from the [employer] swimming pool. She recently had surgery on 05/19/18 where she underwent surgical preparation posterior neck/occipital scalp with incision and drainage and excisional debridement recurrent hidradenitis abscess (31.5 cm2). The wound appears healed at this time with a dry scab. No more Silver dressings are needed at present. Operative culture showed Staphylococcus epidermidis and Anaerobes. She was treated with Cleocin. She was scheduled to start PT for range of motion exercises to minimize neck stiffness when she developed this cat scratch bite abscess dorsum right hand by first web space.
[2018-07-03 15:36] LABS: Bedside Glucose 95 mg/dL (70-110)
[2018-07-03 15:36] LABS: Bedside Glucose 65 mg/dL (70-110)
[2018-07-03 15:36] LABS: Bedside Glucose 67 mg/dL (70-110)
[2018-07-03 15:36] LABS: Bedside Glucose 59 mg/dL (70-110)
[2018-07-03 16:06] VITALS: BP 99/63; PULSE 87; RESP 16; TEMP 36.3; O2SAT 97
[2018-07-03 17:25] LABS: Bedside Glucose 168 mg/dL (70-110)
[2018-07-03 20:26] VITALS: BP 99/72; PULSE 82; RESP 16; TEMP 36.9; O2SAT 97
[2018-07-03] MEDS: Atorvastatin Calcium 20 MG Tablet PO (22:11)
--- NOTE | 2018-07-03 22:15 | NURSING ---
HS BG 99, HS snack given at this time.
[2018-07-03 22:21] LABS: Bedside Glucose 99 mg/dL (70-110)
[2018-07-04 00:40] VITALS: BP 111/80; PULSE 75; RESP 16; TEMP 36.7; O2SAT 94
[2018-07-04] MEDS: HYDROmorphone 2 MG TABLET PO ×3 (00:42→11:20)
[2018-07-04 04:54] VITALS: BP 113/82; PULSE 88; RESP 18; TEMP 37.2; O2SAT 95
[2018-07-04] MEDS: busPIRone 5 MG Tablet 20 MG PO ×2 (05:00→14:27)
[2018-07-04 06:45] LABS: Bedside Glucose 141 mg/dL (70-110)
[2018-07-04] MEDS: Gabapentin 300 MG Capsule PO ×2 (08:08→11:21)
[2018-07-04] MEDS: glipiZIDE 5 MG Tablet 15 MG PO (08:09)
[2018-07-04] MEDS: metFORMIN HCl 1,000 MG Tablet 1000 MG PO (08:09)
--- NOTE | 2018-07-04 08:21 | PCM.PN.HOSP ---
Patient Problems: Active and Suspected Problems (Last Reviewed 06/30/18 @ 15:47 by Jonny Key DO) Necrotizing soft tissue infection (Acute) Abscess of dorsum of right hand (Acute) cat scratch bite abscess dorsum right hand by first web space Cellulitis of right hand (Acute) Vitals/I&O's: Vital Signs Temp Pulse Resp BP Pulse Ox 37.2 C 88 18 113/82 H 95 07/04/18 04:54 07/04/18 04:54 07/04/18 04:54 07/04/18 04:54 07/04/18 04:54 Oxygen Flow Rate (L/min) 2 Oxygen Delivery Method Room Air Weight: 107.1 kg Body Mass Index (BMI) 39.2 Finger Stick Blood Glucose 111 Intake and Output for Last 24 Hours 07/02/18 07/03/18 07/04/18 23:59 23:59 23:59 Intake Total 3082 / 3082 2808 / 2808 415 / 415 Output Total 1000 / 1000 Balance 2082 / 2082 2808 / 2808 415 / 415 General: Alert, No apparent distress, - - groggy HEENT: Atraumatic, Normocephalic Oral: Moist Mucosa, No Gingival or Mucosal Lesions/ Ulcerations Extremities: No edema, - - right hand wrapped, did not remove. visibile fingers show less edema. Neurological: - - sensation in right fingers intact. Psych/Mental Status: Normal Affect, - - groggy Microbiology Past 72 Hours 07/01/18 Unknown Wound Abcess - Right Hand Gram Stain - Final 07/01/18 Unknown Wound Abcess - Right Hand Wound Culture - Final Enterobacter cloacae complex Klebsiella pneumoniae sp pneum 07/01/18 Unknown Wound Abcess - Right Hand Anaerobic Culture - Preliminary No growth in 48 hours. Laboratory Results 06/30/18 17:01: POC Glucose 67 L 06/30/18 17:14: POC Glucose 59 L 06/30/18 17:25: POC Glucose 65 L 06/30/18 17:39: POC Glucose 95 07/03/18 11:13: POC Glucose 295 H 07/03/18 15:59: POC Glucose 168 H 07/03/18 22:02: POC Glucose 99 07/04/18 06:35: POC Glucose 141 H Current Medications Acetaminophen (Tylenol) 650 mg PO Q6H PRN PRN PRN Reason: Mild Pain (1-3)/Temp > 100.7 F Last Admin: 07/01/18 20:26 Dose: 650 mg Albuterol Sulfate (Ventolin Aerosols) 2.5 mg INHALATION Q4H PRN PRN PRN Reason: ALLERGIES Atorvastatin Calcium (Lipitor) 20 mg PO QHS [facility] Last Admin: 07/03/18 22:11 Dose: 20 mg Buspirone HCl (Buspar) 20 mg PO TID [facility] Last Admin: 07/04/18 05:00 Dose: 20 mg Clonidine (Catapres) 0.1 mg PO DAILY PRN PRN PRN Reason: ANXIETY Dextrose (D50w Syringe) 0 gm IV X1 PRN; Protocol PRN Reason: Hypoglycemia Diazepam (Valium) 5 mg PO BID PRN PRN PRN Reason: SPASMS Duloxetine HCl (Cymbalta) 30 mg PO DAILY [facility] Last Admin: 07/03/18 08:11 Dose: 30 mg Duloxetine HCl (Cymbalta) 60 mg PO DAILY [facility] Last Admin: 07/03/18 08:15 Dose: 60 mg Enoxaparin Sodium (Lovenox) 40 mg SC DAILY@1000 [facility] Last Admin: 07/03/18 08:16 Dose: 40 mg [facility]ap[facility] ([facility]in) [facility] Last Admin: 07/04/18 08:08 Dose: 300 mg Glipizide (Glucotrol) 15 mg PO DAILY@0730 [facility] Last Admin: 07/04/18 08:09 Dose: 15 mg Glucagon () 1 mg IM .X1 PRN PRN Reason: Hypoglycemia Hydromorphone HCl (Dilaudid Tablet) 2 - 4 mg PO 4X/DAY PRN PRN PRN Reason: PAIN Last Admin: 07/04/18 05:00 Dose: 4 mg Hydromorphone HCl (Dilaudid Inj) 0.5 mg IV Q12H PRN PRN Reason: BREAKTHROUGH PAIN (>4/10) Ciprofloxacin (Cipro) 400 mg in 200 mls @ 200 mls/hr IV Q12 [facility] Insulin Glargine (Lantus (Bkc)) 10 units SC QHS [facility] Last Admin: 07/03/18 22:11 Dose: 10 u Insulin Human Lispro (Humalog Kwikpen (Bkc)) 0 unit SQ TIDAC [facility] PRN Reason: Protocol Last Admin: 07/04/18 06:36 Dose: Not Given [place] Carbonate ([place] Walk Carbonate) 300 mg PO BID [facility] Last Admin: 07/03/18 22:11 Dose: 300 mg Lubiprostone (Amitiza) 24 mcg PO BID [facility] Last Admin: 07/03/18 22:11 Dose: 24 mcg Magnesium Hydroxide (Milk Of Magnesia) 30 ml PO DAILY PRN PRN PRN Reason: Constipation Meloxicam (Mobic) 7.5 mg PO DAILY [facility] Last Admin: 07/03/18 08:14 Dose: 7.5 mg Metformin [facility] ([facility]) [facility] Last Admin: 07/04/18 08:09 Dose: 1,000 mg Nicotine (Nicoderm Cq (Pbkc)) 21 mg TRANSDERM. DAILY [facility] Last Admin: 07/03/18 08:12 Dose: 21 mg Nutritional Formula (Kofi - [place] Flavor) [facility] Last Admin: 07/04/18 08:09 Dose: 1 packet Ondansetron HCl (Zofran) 4 mg IV Q8H PRN PRN PRN Reason: NAUSEA Last Admin: 07/02/18 06:42 Dose: 4 mg Pantoprazole Sodium (Protonix) 20 mg PO DAILY [facility] Last Admin: 07/03/18 08:10 Dose: 20 mg Promethazine HCl (Phenergan Tablet) 25 mg PO 4X/DAY PRN PRN PRN Reason: NAUSEA/VOMITING Quetiapine Fumarate (Seroquel) 400 mg PO BID [facility] Last Admin: 07/03/18 22:11 Dose: 400 mg Sodium Chloride () 5 - 30 ml IV UD PRN PRN Reason: SALINE FLUSH Last Admin: 07/02/18 11:02 Dose: 10 ml Spironolactone (Aldactone) 100 mg PO DAILY [facility] Last Admin: 07/03/18 08:16 Dose: 100 mg Tizanidine HCl (Zanaflex) 4 mg PO 4X/DAY [facility] Last Admin: 07/03/18 22:11 Dose: 4 mg Medical Necessity - Tobacco Use Smoking Status: Heavy Smoker (>10/day) Tobacco Use: Cigarettes Assessment/Plan All Active Problems (Last Reviewed 06/30/18 @ 15:47 by Jonny Key DO) Necrotizing soft tissue infection (Acute) Abscess of dorsum of right hand (Acute) Cat bite of right hand with infection (Acute) Cat bite (Acute) Cellulitis of right hand (Acute) Muscle spasms of neck (Acute) Abscess, scalp (Acute) Folliculitis (Acute) Diabetes mellitus type 2, uncontrolled (Acute) Unspecified open wound of unspecified part of neck, subsequent encounter (Acute) Unspecified open wound of unspecified part of head, subsequent encounter (Acute) Open wound involving head with neck, complicated (Acute) Abscess of neck (Acute) History of section (Acute) History of tonsillectomy (Acute) Cat scratch of left hand with infection (Acute) Cat scratch of right hand with infection (Acute) Cat scratch (Acute) Open wound of left axillary region (Acute) Abscess of sternal region (Acute) Open wound of chest wall, complicated (Acute) Abscess of breast (Acute) 1. Right hand cellulitis Suspect secondary to the patient's cutting. Appears more like a staph infection than anything Culture growing out Enterobacter cloacae and Klebsiella pneumoniae, both sensitive to Cipro DC Unasyn and Azithromycin, start Cipro s/p I+D on 07/01 Likely due to self-inflicted cutting. Pt endorses that she cuts to cope. Uses needles, but not steak knives. Unfortunately I question if she does this for secondary gain (i.e., narcotics) Page out to Dr. Boswell to see if anything additional from inpatient side. 2. Hidradenitis suppurativa Patient's had numerous surgeries, approximately 36 involving her axilla, breasts neck and groin No acute issues at this time 3. Diabetes mellitus type 2 Continue with her home medications and sliding scale fair control 4. DVT prophylaxis: Moderate risk. Lovenox. 6. Chronic pain Per [place] review: Pt has received #340 tablets of Dilaudid since 05/21/18 (received #30 on 06/26) Called Dr. Stephens's office, as patient was active there up until around September 2017. Pt never formally discharged from practice, but was informed to not received pain medication from multiple providers. Which she appeared to be doing between January 2017 and then September 2017 (see OARRS). DC IV Dilaudid Given patient's claim of severe pain and her appearance of being comfortable and groggy. I am highly concerned that she is embellishing her symptoms. Additionally, I am concerned patient may be cutting, not to cope, but for secondary gain. Code Visit Inpatient E&M: 98367 Subs Hosp L2
[2018-07-04] MEDS: Ciprofloxacin 400 MG/200 ML BAG 200 MG IV (09:36)
[2018-07-04] MEDS: Enoxaparin 40 MG/0.4 ML Syringe SC (09:36)
[2018-07-04] MEDS: diazePAM 5 MG Tablet PO (09:36)
[2018-07-04] MEDS: DULoxetine Hcl 60 MG Capsule PO (09:37)
[2018-07-04] MEDS: QUEtiapine 100 MG Tablet 400 MG PO (09:37)
[2018-07-04] MEDS: Lithium Carbonate 300mg Capsule 300 MG PO (09:37)
[2018-07-04] MEDS: DULoxetine Hcl 30 MG Capsule PO (09:37)
[2018-07-04] MEDS: Meloxicam 7.5 MG Tablet PO (09:37)
[2018-07-04] MEDS: Pantoprazole Sodium 20 MG Tablet PO (09:37)
[2018-07-04] MEDS: tiZANidine HCl 2 MG Tablet 4 MG PO ×2 (09:37→14:27)
[2018-07-04] MEDS: Lubiprostone 24 MCG Capsule PO (09:37)
[2018-07-04] MEDS: Spironolactone 50 MG Tablet 100 MG PO (09:37)
[2018-07-04 09:45] VITALS: BP 99/54; PULSE 91; RESP 18; TEMP 36.4; O2SAT 94
[2018-07-04 09:50] VITALS: PULSE 92
--- NOTE | 2018-07-04 10:43 | PCM.PN.HOSP ---
Patient Problems: Active and Suspected Problems (Last Reviewed 06/30/18 @ 15:47 by Jonny Key DO) Necrotizing soft tissue infection (Acute) Abscess of dorsum of right hand (Acute) cat scratch bite abscess dorsum right hand by first web space Cellulitis of right hand (Acute) Vitals/I&O's: Vital Signs Temp Pulse Resp BP Pulse Ox 36.4 C L 91 18 99/54 L 94 07/04/18 09:45 07/04/18 09:45 07/04/18 09:45 07/04/18 09:45 07/04/18 09:45 Oxygen Flow Rate (L/min) 2 Oxygen Delivery Method Room Air Weight: 107.1 kg Body Mass Index (BMI) 39.2 Finger Stick Blood Glucose 111 Intake and Output for Last 24 Hours 07/02/18 07/03/18 07/04/18 23:59 23:59 23:59 Intake Total 3082 / 3082 2808 / 2808 415 / 415 Output Total 1000 / 1000 Balance 2082 / 2082 2808 / 2808 415 / 415 Microbiology Past 72 Hours 07/01/18 Unknown Wound Abcess - Right Hand Gram Stain - Final 07/01/18 Unknown Wound Abcess - Right Hand Wound Culture - Final Enterobacter cloacae complex Klebsiella pneumoniae sp pneum 07/01/18 Unknown Wound Abcess - Right Hand Anaerobic Culture - Preliminary No growth in 48 hours. Laboratory Results 06/30/18 17:01: POC Glucose 67 L 06/30/18 17:14: POC Glucose 59 L 06/30/18 17:25: POC Glucose 65 L 06/30/18 17:39: POC Glucose 95 07/03/18 11:13: POC Glucose 295 H 07/03/18 15:59: POC Glucose 168 H 07/03/18 22:02: POC Glucose 99 07/04/18 06:35: POC Glucose 141 H Current Medications Acetaminophen (Tylenol) 650 mg PO Q6H PRN PRN PRN Reason: Mild Pain (1-3)/Temp > 100.7 F Last Admin: 07/01/18 20:26 Dose: 650 mg Albuterol Sulfate (Ventolin Aerosols) 2.5 mg INHALATION Q4H PRN PRN PRN Reason: ALLERGIES Atorvastatin Calcium (Lipitor) 20 mg PO QHS [facility] Last Admin: 07/03/18 22:11 Dose: 20 mg Buspirone HCl (Buspar) 20 mg PO TID [facility] Last Admin: 07/04/18 05:00 Dose: 20 mg Clonidine (Catapres) 0.1 mg PO DAILY PRN PRN PRN Reason: ANXIETY Dextrose (D50w Syringe) 0 gm IV X1 PRN; Protocol PRN Reason: Hypoglycemia Diazepam (Valium) 5 mg PO BID PRN PRN PRN Reason: SPASMS Last Admin: 07/04/18 09:36 Dose: 5 mg Duloxetine HCl (Cymbalta) 30 mg PO DAILY [facility] Last Admin: 07/04/18 09:37 Dose: 30 mg Duloxetine HCl (Cymbalta) 60 mg PO DAILY [facility] Last Admin: 07/04/18 09:37 Dose: 60 mg Enoxaparin Sodium (Lovenox) 40 mg SC DAILY@1000 [facility] Last Admin: 07/04/18 09:36 Dose: 40 mg Gabapentin (Neurontin) 300 mg PO 4X/DAYCM [facility] Last Admin: 07/04/18 08:08 Dose: 300 mg Glipizide (Glucotrol) 15 mg PO DAILY@0730 [facility] Last Admin: 07/04/18 08:09 Dose: 15 mg Glucagon () 1 mg IM .X1 PRN PRN Reason: Hypoglycemia Hydromorphone HCl (Dilaudid Tablet) 2 mg PO 4X/DAY PRN PRN PRN Reason: SEVERE PAIN (6-10/10) Ciprofloxacin (Cipro) 400 mg in 200 mls @ 200 mls/hr IV Q12 [facility] Last Admin: 07/04/18 09:36 Dose: 200 mls/hr Insulin Glargine (Lantus (Bkc)) 10 units SC QHS [facility] Last Admin: 07/03/18 22:11 Dose: 10 u Insulin Human Lispro (Humalog Kwikpen (Bkc)) 0 unit SQ TIDAC [facility] PRN Reason: Protocol Last Admin: 07/04/18 06:36 Dose: Not Given [place] Carbonate ([place] Carbonate) 300 mg PO BID [facility] Last Admin: 07/04/18 09:37 Dose: 300 mg Lubiprostone (Amitiza) 24 mcg PO BID [facility] Last Admin: 07/04/18 09:37 Dose: 24 mcg Magnesium Hydroxide (Milk Of Magnesia) 30 ml PO DAILY PRN PRN PRN Reason: Constipation Meloxicam (Mobic) 7.5 mg PO DAILY [facility] Last Admin: 07/04/18 09:37 Dose: 7.5 mg Metformin HCl (Glucophage) 1,000 mg PO BIDCM [facility] Last Admin: 07/04/18 08:09 Dose: 1,000 mg Nicotine (Nicoderm Cq (Pbkc)) 21 mg TRANSDERM. DAILY [facility] Last Admin: 07/04/18 09:37 Dose: 21 mg Nutritional Formula (Kofi - [place] Flavor) [facility] Last Admin: 07/04/18 08:09 Dose: 1 packet Ondansetron HCl (Zofran) 4 mg IV Q8H PRN PRN PRN Reason: NAUSEA Last Admin: 07/02/18 06:42 Dose: 4 mg Pantoprazole Sodium (Protonix) 20 mg PO DAILY [facility] Last Admin: 07/04/18 09:37 Dose: 20 mg Promethazine HCl (Phenergan Tablet) 25 mg PO 4X/DAY PRN PRN PRN Reason: NAUSEA/VOMITING Quetiapine Fumarate (Seroquel) 400 mg PO BID [facility] Last Admin: 07/04/18 09:37 Dose: 400 mg Sodium Chloride () 5 - 30 ml IV UD PRN PRN Reason: SALINE FLUSH Last Admin: 07/02/18 11:02 Dose: 10 ml Spironolactone (Aldactone) 100 mg PO DAILY [facility] Last Admin: 07/04/18 09:37 Dose: 100 mg Tizanidine HCl (Zanaflex) 4 mg PO 4X/DAY [facility] Last Admin: 07/04/18 09:37 Dose: 4 mg Medical Necessity - Tobacco Use Smoking Status: Heavy Smoker (>10/day) Tobacco Use: Cigarettes Assessment/Plan All Active Problems (Last Reviewed 06/30/18 @ 15:47 by Jonny Key DO) Necrotizing soft tissue infection (Acute) Abscess of dorsum of right hand (Acute) Cat bite of right hand with infection (Acute) Cat bite (Acute) Cellulitis of right hand (Acute) Muscle spasms of neck (Acute) Abscess, scalp (Acute) Folliculitis (Acute) Diabetes mellitus type 2, uncontrolled (Acute) Unspecified open wound of unspecified part of neck, subsequent encounter (Acute) Unspecified open wound of unspecified part of head, subsequent encounter (Acute) Open wound involving head with neck, complicated (Acute) Abscess of neck (Acute) History of section (Acute) History of tonsillectomy (Acute) Cat scratch of left hand with infection (Acute) Cat scratch of right hand with infection (Acute) Cat scratch (Acute) Open wound of left axillary region (Acute) Abscess of sternal region (Acute) Open wound of chest wall, complicated (Acute) Abscess of breast (Acute)
[2018-07-04] MEDS: Insulin Lispro 100 UNIT/ML INSULN.PEN SQ (11:21)
[2018-07-04 11:41] LABS: Bedside Glucose 179 mg/dL (70-110)
--- NOTE | 2018-07-04 13:08 | PCM.DC ---
You will use the following diet at home:: Calorie/Carbohydrate Controlled (specify 1200, 1400, etc) - 1800 kcal/day Your food should be the consistency of: Regular Your liquids should be the consistency of: Regular/Thin Discharge Activity: May not drive while taking narcotic pain medications. Keep extremity elevated above heart level: - - right hand Call your doctor if your incision/area has: Continuous Slow Oozing, Sudden Increased Bleeding, Increased Pain/ Swelling, Increased Redness Call your doctor if you observe: Fever of 101 or Higher Additional Instructions: Dressing changes daily to dorsum right hand with aquacel silver followed by kerlix gauze and glenda wrap. Dressing changes to posterior neck/occipital scalp with aquacel silver. Allergies/Adverse Reactions: Allergies lamotrigine [From Lamictal] Allergy (Mild, Verified 06/30/18 12:08) Rash adhesive tape Allergy (Verified 06/30/18 12:08) Rash Medications to take at Discharge Clonidine HCl [Catapres] 0.1 mg PO DAILY PRN PRN 01/18/14 Duloxetine Hcl [Cymbalta] 60 mg PO DAILY 01/18/14 Metformin HCl [Glucophage] 1,000 mg PO BIDCM 01/18/14 Tizanidine HCl [Zanaflex] 4 mg PO 4X/DAY 01/18/14 glipiZIDE [Glucotrol] 15 mg PO DAILY@0730 01/18/14 Quetiapine Fumarate [Seroquel XR] 800 mg PO QHS 04/25/14 Meloxicam [Mobic] 7.5 mg PO DAILY 01/14/16 Spironolactone [Aldactone] 100 mg PO DAILY 01/14/16 Norgestrel-Ethinyl Estradiol [Cryselle-28 Tablet] 1 tab PO DAILY 01/20/16 [place] Carbonate [[place] Carbonate ER] 300 mg PO BID 05/10/16 gabapentin 300 mg capsule 300 mg PO 4X/DAY cap 12/01/17 Lubiprostone [Amitiza] 24 mcg PO BID 01/16/18 Omeprazole [Prilosec] 20 mg PO DAILY 01/16/18 insulin aspart U-100 100 unit/mL subcutaneous solution See Protocol SC TIDCM ml 02/14/18 insulin glargine (U-100) 100 unit/mL subcutaneous solution 10 unit SC QHS 02/14/18 HYDROmorphone tablet [Dilaudid] 2 - 4 mg PO 4X/DAY PRN PRN 7 Days #60 tab 05/21/18 proMETHazine tablet [Phenergan tablet] 25 mg PO 4X/DAY PRN PRN #30 tab 05/21/18 diazepam 5 mg tablet 5 mg PO 4X/DAY PRN #30 tab 05/31/18 Atorvastatin Calcium 20 mg PO QHS 06/21/18 promethazine 25 mg tablet 25 mg PO 4X/DAY PRN #30 tab 06/21/18 Albuterol Sulfate [Ventolin Hfa] 1 - 2 inhaler INHALATION 4X/DAY PRN PRN 06/30/18 Buspirone HCl 20 mg PO TID 06/30/18 Duloxetine Hcl [Cymbalta] 30 mg PO DAILY 06/30/18 Ciprofloxacin [Cipro] 500 mg PO BID #28 tab 07/04/18 The following prescriptions were given: Ciprofloxacin [Cipro] 500 mg PO BID #28 tab Primary Care Physician: Aj Staley MD [Primary Care Provider] - Within 2 Weeks Test Results: Test results from this visit will be discussed in further detail at your follow-up appointment, if applicable. Proposed Discharge Date: 07/04/18
--- NOTE | 2018-07-04 13:12 | DCINST_ITS ---
You will use the following diet at home:: Calorie/Carbohydrate Controlled ( specify 1200, 1400, etc) - 1800 kcal/day Your food should be the consistency of: Regular Your liquids should be the consistency of: Regular/Thin Discharge Activity: May not drive while taking narcotic pain medications. Keep extremity elevated above heart level: - - right hand Call your doctor if your incision/area has: Continuous Slow Oozing, Sudden Increased Bleeding, Increased Pain/ Swelling, Increased Redness Call your doctor if you observe: Fever of 101 or Higher Additional Instructions: Dressing changes daily to dorsum right hand with aquacel silver followed by kerlix gauze and glenda wrap. Dressing changes to posterior neck/occipital scalp with aquacel silver. Allergies/Adverse Reactions: Allergies lamotrigine [From Lamictal] Allergy (Mild, Verified 06/30/18 12:08) Rash adhesive tape Allergy (Verified 06/30/18 12:08) Rash Medications to take at Discharge Clonidine HCl [Catapres] 0.1 mg PO DAILY PRN PRN 01/18/14 Duloxetine Hcl [Cymbalta] 60 mg PO DAILY 01/18/14 Metformin HCl [Glucophage] 1,000 mg PO BIDCM 01/18/14 Tizanidine HCl [Zanaflex] 4 mg PO 4X/DAY 01/18/14 glipiZIDE [Glucotrol] 15 mg PO DAILY@0730 01/18/14 Quetiapine Fumarate [Seroquel XR] 800 mg PO QHS 04/25/14 Meloxicam [Mobic] 7.5 mg PO DAILY 01/14/16 Spironolactone [Aldactone] 100 mg PO DAILY 01/14/16 Norgestrel-Ethinyl Estradiol [Cryselle-28 Tablet] 1 tab PO DAILY 01/20/16 [place] Carbonate [Cl[place] Carbonate ER] 300 mg PO BID 05/10/16 gabapentin 300 mg capsule 300 mg PO 4X/DAY cap 12/01/17 Lubiprostone [Amitiza] 24 mcg PO BID 01/16/18 Omeprazole [Prilosec] 20 mg PO DAILY 01/16/18 insulin aspart U-100 100 unit/mL subcutaneous solution See Protocol SC TIDCM ml 02/14/18 insulin glargine (U-100) 100 unit/mL subcutaneous solution 10 unit SC QHS HYDROmorphone tablet [Dilaudid] 2 - 4 mg PO 4X/DAY PRN PRN 7 Days #60 tab proMETHazine tablet [Phenergan tablet] 25 mg PO 4X/DAY PRN PRN #30 tab 05/21/18 diazepam 5 mg tablet 5 mg PO 4X/DAY PRN #30 tab 05/31/18 Atorvastatin Calcium 20 mg PO QHS 06/21/18 promethazine 25 mg tablet 25 mg PO 4X/DAY PRN #30 tab 06/21/18 Albuterol Sulfate [Ventolin Hfa] 1 - 2 inhaler INHALATION 4X/DAY PRN PRN Buspirone HCl 20 mg PO TID 06/30/18 Duloxetine Hcl [Cymbalta] 30 mg PO DAILY 06/30/18 Ciprofloxacin [Cipro] 500 mg PO BID #28 tab 07/04/18 The following prescriptions were given: Ciprofloxacin [Cipro] 500 mg PO BID #28 tab Primary Care Physician: Aj Staley MD [Primary Care Provider] - Within 2 Weeks Test Results: Test results from this visit will be discussed in further detail at your follow- up appointment, if applicable. Proposed Discharge Date: 07/04/18
--- NOTE | 2018-07-04 13:12 | PCM.DC.SUM ---
Discharge Date and Diagnosis - Problem List Patient Problems: Active and Suspected Problems (Last Reviewed 06/30/18 @ 15:47 by Jonny Key DO) Necrotizing soft tissue infection (Acute) Abscess of dorsum of right hand (Acute) cat scratch bite abscess dorsum right hand by first web space Cellulitis of right hand (Acute) Date of Admission: 06/30/18 Date of Discharge: 07/04/18 - Secondary Discharge Diagnosis Chronic Problems (Last Reviewed 06/30/18 @ 15:47 by Jonny Key DO) Hidradenitis suppurativa (Chronic) 4 cm recurrent hidradenitis posterior neck and occipital scalp Bilateral carpal tunnel syndrome (Chronic) worse on left Chronic neck pain (Chronic) Branchial cleft sinus (Chronic) History of incision and drainage (Chronic) Left side of neck 12/02/17, RIGHT BREAST ABSCESS 09/17/2014, LEFT BREAST ABSCESS 10/11/2014, INGUINAL HYDRADENITIS, AXILLARY HYDRADENITIS Diabetes (Chronic) type 2 Dx : 2012 Last exacerbation : DKA : never Hypoglycemic episode : never ER visit : 01/08 - 500+ Hydradenitis (Chronic) hidradenitis left axilla - L73.2 Morbid obesity (Chronic) Bipolar affective (Chronic) Osteoarthritis (Chronic) Chronic back pain (Chronic) Diabetic leg ulcer (Chronic) nonhealing diabetic ulcer right medial leg - E11.622 Non-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 No definite abscess. Normal bones and joints. Electronically Signed: Juan Pablo Presley MD at 18:57 EDT , Service support , Operations: - - Surgical preparation dorsum right hand at first web space with incision and drainage and excisional debridement necrotizing cat scratch bite abscess (8.1 cm2). Procedures: None Summary of Care Provided: The patient is a 32 year old F presents with cellulitis in the dorsum of her right self-inflicted cutting and/or cat-bite. Patient underwent incision and drainage on the . Cultures grew out Enterobacter as well as Klebsiella. Patient will be discharged with 14 days of Cipro. Patient will follow up with Dr. flores as outpatient. 1. Right hand cellulitis Suspect secondary to the patient's cutting. Appears more like a staph infection than anything Culture growing out Enterobacter cloacae and Klebsiella pneumoniae, both sensitive to Cipro DC Unasyn and Azithromycin, start Cipro s/p I+D on 07/01 Likely due to self-inflicted cutting. Pt endorses that she cuts to cope. Uses needles, but not steak knives. Unfortunately I question if she does this for secondary gain (i.e., narcotics) Page out to Dr. Boswell to see if anything additional from inpatient side. 2. Hidradenitis suppurativa Patient's had numerous surgeries, approximately 36 involving her axilla, breasts neck and groin No acute issues at this time 3. Diabetes mellitus type 2 Continue with her home medications and sliding scale fair control 4. DVT prophylaxis: Moderate risk. Lovenox. 6. Chronic pain Per OARRS review: Pt has received #340 tablets of Dilaudid since 05/21/18 (received #30 on 06/26) Called Dr. Stephens's office, as patient was active there up until around September 2017. Pt never formally discharged from practice, but was informed to not received pain medication from multiple providers. Which she appeared to be doing between January 2017 and then September 2017 (see OARRS). DC IV Dilaudid Given patient's claim of severe pain and her appearance of being comfortable and groggy. I am highly concerned that she is embellishing her symptoms. Additionally, I am concerned patient may be cutting, not to cope, but for secondary gain. [] Discharge Diet: 1800 Calorie Control Diet Discharge Activity: May not drive while taking narcotic pain medications. Keep extremity elevated above heart level: - - right hand Call your doctor if your incision/area has: Continuous Slow Oozing, Sudden Increased Bleeding, Increased Pain/ Swelling, Increased Redness Call your doctor if you observe: Fever of 101 or Higher Home Medications: Medications to take at Discharge Clonidine HCl [Catapres] 0.1 mg PO DAILY PRN PRN 01/18/14 Duloxetine Hcl [Cymbalta] 60 mg PO DAILY 01/18/14 Metformin HCl [Glucophage] 1,000 mg PO BIDCM 01/18/14 Tizanidine HCl [Zanaflex] 4 mg PO 4X/DAY 01/18/14 glipiZIDE [Glucotrol] 15 mg PO DAILY@0730 01/18/14 Quetiapine Fumarate [Seroquel XR] 800 mg PO QHS 04/25/14 Meloxicam [Mobic] 7.5 mg PO DAILY 01/14/16 Spironolactone [Aldactone] 100 mg PO DAILY 01/14/16 Norgestrel-Ethinyl Estradiol [Cryselle-28 Tablet] 1 tab PO DAILY 01/20/16 Mullin Carbonate [Mullin Carbonate ER] 300 mg PO BID 05/10/16 gabapentin 300 mg capsule 300 mg PO 4X/DAY cap 12/01/17 Lubiprostone [Amitiza] 24 mcg PO BID 01/16/18 Omeprazole [Prilosec] 20 mg PO DAILY 01/16/18 insulin aspart U-100 100 unit/mL subcutaneous solution See Protocol SC TIDCM ml 02/14/18 insulin glargine (U-100) 100 unit/mL subcutaneous solution 10 unit SC QHS 02/14/18 HYDROmorphone tablet [Dilaudid] 2 - 4 mg PO 4X/DAY PRN PRN 7 Days #60 tab 05/21/18 proMETHazine tablet [Phenergan tablet] 25 mg PO 4X/DAY PRN PRN #30 tab 05/21/18 diazepam 5 mg tablet 5 mg PO 4X/DAY PRN #30 tab 05/31/18 Atorvastatin Calcium 20 mg PO QHS 06/21/18 promethazine 25 mg tablet 25 mg PO 4X/DAY PRN #30 tab 06/21/18 Albuterol Sulfate [Ventolin Hfa] 1 - 2 inhaler INHALATION 4X/DAY PRN PRN 06/30/18 Buspirone HCl 20 mg PO TID 06/30/18 Duloxetine Hcl [Cymbalta] 30 mg PO DAILY 06/30/18 Ciprofloxacin [Cipro] 500 mg PO BID #28 tab 07/04/18 Following Prescrptions Were Given to Patient: Ciprofloxacin [Cipro] 500 mg PO BID #28 tab Primary Care Physician: Aj Staley MD [Primary Care Provider] - Within 2 Weeks Please Follow Up With: Phoenix Boswell MD When: 1 week Disposition: Home with Home Health Minutes spent on discharge:: 35 Patient Condition:: Fair Medical Necessity - Tobacco Use Smoking Status: Heavy Smoker (>10/day) Tobacco Use: Cigarettes Meaningful Use Info Meaningful Use Diagnoses (Choose all that apply): None applicable Code Visit Inpatient E&M: 06567 Disch Hosp
--- NOTE | 2018-07-04 14:15 | CASEMGMT ---
Addendum entered by Nishi Guevara 07/04/18 15:37: DOMINICK BARRIGA received update from Lucretia Gordon RN, CM at [facility] that patient has seen Pain Management, Dr. Kvng Bedolla, at [facility] on 05/05/18. Dr. Key updated regarding patient being seen by Pain Management on 05/05/18. CM will continue to follow the patient and plan for a safe discharge. Original Note: DOM[facility] [place] Resumption of HHC obtained and updated clinicals faxed to [facility]. DOMINICK BARRIGA also spoke with patient's RN CM at [facility], Lucretia Gordon, regarding patient's discharge planning and updated clinicals. DOMINICK BARRIGA also updated Lucretia Gordon RN, CM regarding concerns for perscription narcotic use and self mutilation. Lucretia Gordon RN, CM stated that she would discuss patient's case with her paint line production supervisor. CJ King updated to patient report of self mutilation. Dr. Key updated regarding updates sent to patient's RN CM at [facility]. CM will continue to follow this patient and plan for a safe discharge.
--- NOTE | 2018-07-04 14:17 | CASEMGMT ---
Social Work Note SW met with pt has pt has history of self-cutting and self mutilation. SW introduced self and role at [facility]. Pt is alert and orientated x4. Pt states that she lives with her parents and daughter. Pt states that she has good relationship with her parents and she feels supported by them. Pt states that her parents help out when they can. Pt states that she is unhappy and angry. Pt states that she is being discharged today but won't leave the hospital until Dr. Boswell see's pt and discharges her. Pt states that she has seen Dr. Boswell for 10 years and is unhappy that the hospitalist has decreased her pain medications. SW informed pt that DOMINICK Alexander had paged Dr. Boswell earlier for pt. SW provided support for pt and utilized active listening skills. Pt expressed concerns with her health and states that she feels like her health is failing her and her daughter. SW provided support to pt. Substance Abuse Hx: Pt denied current substance abuse. Pt states that she may have abused alcohol when she was younger. Mental Health Hx: Pt states that she has a history of struggling with Bipolar Disorder. Pt states that she is currently active with [facility] and see's a therapist named Mady there once every 2 weeks and see's the psychiatrist once every 6 months. Pt confirms that she has a history of cutting and self mutilation and has been cutting since she was 11. Pt states that she self mutilates to cope and that she would rather feel physical pain than emotional pain. Pt states that her counselor is aware of this and she has been seeing her counselor for two years. Pt denied any current suicidal thoughts/plans/ideations. SW encouraged pt to develop other coping skills to cope with her emotional feelings. Pt receptive to this. SW informed pt that she could talk to her parents as a coping skill as they are good support for her. Pt receptive to this. SW continued to provide support and emotional support to pt. Pt thanked this worker and denied additional needs or concerns at this time. Nishi King CLOCKMAKER, LADIES SUIT OPERATOR
[2018-07-04 16:02] VITALS: BP 108/67; PULSE 100; RESP 18; TEMP 37.2; O2SAT 97
--- NOTE | 2018-07-05 15:59 | CASEMGMT ---
DOMINICK BARRIGA Discharge Follow-up Phone Call: ADRY: Criss Strata: 4 Call Date: 07/05/18 Discharge Date: 07/04/18 Time of Call: 1558 Duration: 3 min Admitting Diagnosis: right hand cellulitis DOMINICK BARRIGA completed follow-up phone call after recent hospitalization. Patient states that she is doing alright still in pain. [facility] has been there to see the patient. Patient states she has no questions or concerns regarding discharge instructions. Patient states she was able to picker / packer her prescription for cipro. Patient is aware of follow-up appt with Dr. Boswell and [employer]INT SHOP STENOGRAPHER Kvng Villa.
== END 2018-07-04 16:30 | disposition home health service (06) | DRG 580 ==
LOC: ED 13:23 → MS3 15:55
PROVIDERS: Surgery; Emergency Provider Emergency Medicine; Family Provider Family Medicine; PCP Family Medicine
PROC: 0JBJ0ZZ Excision of Right Hand Subcutaneous Tissue and Fascia, Open Approach (ICD-10-PCS; principal; 2018-07-01 08:00)
DX: L02.511 Cutaneous abscess of right hand (principal); L03.113 Cellulitis of right upper limb; W55.03XA Scratched by cat, initial encounter; S60.511A Abrasion of right hand, initial encounter; E66.01 Morbid (severe) obesity due to excess calories; F31.9 Bipolar disorder, unspecified; M19.90 Unspecified osteoarthritis, unspecified site; G89.29 Other chronic pain; F41.9 Anxiety disorder, unspecified; E78.5 Hyperlipidemia, unspecified; K21.9 Gastro-esophageal reflux disease without esophagitis; L73.2 Hidradenitis suppurativa; I10 Essential (primary) hypertension; B85.0 Pediculosis due to Pediculus humanus capitis; F17.210 Nicotine dependence, cigarettes, uncomplicated; Z79.899 Other long term (current) drug therapy; Z79.4 Long term (current) use of insulin; Z68.39 Body mass index [BMI] 39.0-39.9, adult; Z71.3 Dietary counseling and surveillance; B95.7 Other staphylococcus as the cause of diseases classified elsewhere; M79.89 Other specified soft tissue disorders; E11.65 Type 2 diabetes mellitus with hyperglycemia
CPT/HCPCS: 36415; 36569; 73200; 80048; 80202; 82962; 84134; 84703; 85025; 85027; 87040; 87070; 87075; 87077; 87086; 87088; 87102; 87186; 87205; 87206; 87640; 88304; 88312; 93005; 99283; 99406; J7030; J7040; A4216; J0295; J0744; J2405

== ENCOUNTER → 2018-07-31 12:04 | Outpatient (CLI) | payer MEDICARE, SELFPAY ==
[2018-06-21 09:37] VITALS: BP 139/85; PULSE 90; RESP 18; TEMP 36.4; O2SAT 99; BMI 37.3
[2018-06-21 11:01] LABS: Hemoglobin A1c 8.7 % (4.2-6.3)
[2018-06-21 11:12] LABS: Anion Gap 7 (5-15); BUN 5 mg/dL (7-18); BUN/Creat Ratio 5.8 RATIO (10-20); Calcium,Total 9.7 mg/dL (8.5-10.1); Chloride 100 mmol/L (98-107); Creatinine, Serum 0.86 mg/dL (0.55-1.02); EST Glomerular Filtration Rate 80 mL/min (>60); Est Glom Filt Rate - Afr Amer 97 mL/min (>60); Estimated Creatinine Clearance 83.72 ml/min; Glucose 208 mg/dL (74-106); Potassium 4.4 mmol/L (3.5-5.1); Sodium Level 133 mmol/L (136-145)
== END ==
PROVIDERS: Anesthesiology; Family Provider Family Medicine; PCP Family Medicine; Visit Provider Surgery
DX: E11.9 Type 2 diabetes mellitus without complications (principal)
CPT/HCPCS: 36415; 80048; 83036

== ENCOUNTER → 2018-08-08 14:47 | Outpatient (CLI) | payer MEDICARE, SELFPAY ==
[2018-08-08 19:15] LABS: Hemoglobin A1c 6.9 % (4.2-6.3)
== END ==
PROVIDERS: Family Provider Family Medicine; PCP Family Medicine; Visit Provider Surgery
DX: E11.65 Type 2 diabetes mellitus with hyperglycemia (principal)
CPT/HCPCS: 36415; 83036

== ENCOUNTER 2018-09-28 14:30 | Outpatient (RCR) | payer MEDICARE, SELFPAY ==
--- NOTE | 2018-09-04 14:20 | HP.PTEVAL_ITS ---
Patient's Visit Information ROGER HOOD is a 32 year old F referred to Physical Therapy by Phoenix Boswell with a diagnosis of cervicalgia. Date of Evaluation: 09/04/18 Physical Therapist: Adan Hernandes - Visit Plan Frequency: 1-2x /Week Duration: 3 Weeks Plan: begin with modalities to decrease pain, incorporate ROM exercises to increase ROM, progressing postureal strength as tolerated. - Subjective Subjective: Pt is here today for their initial evaulation of chronic neck pain. pt reports that their symptoms began about 4 years ago following their first neck surgery to remove an abscess. pt recieved PT following this surgery which they reproted provided some positive results. on 05/19/18 the pt recieved a second neck surgery to remove another abscess. pt reports that following the surgery in April they are experiencing increased stiffness and pain. pt reports pain at rest and with activity with some radiating symptoms into their mid back and shoulders. at its best, the pain is a 4/10 but can increase to a 9/10. pt reports good days and bad days but on average their pain is around a 7/10. pt reports pain has made sleeping dificult. pt uses heat and stretches at home in attempts to alleviate the pain but has felt little benefit. pt hopes to be able to improve range of motion and decrease pain allowing them to perform daily tasks without pain. - Pain Neck Pain Intensity (Out of 10): 7 Pain Intensity Range: 4, 9 - Objective POSTURE: forward head with rounded shoulders, increased thoracic kyphosis. PALPATION: two large scars on the dorsal aspect of the superior cervical spine. Well healed, no signs of infection. ROM: cervical - AROM 50% limited throughout; PROM WFL pain with overpressure throughout. Pt. reports increased pain as limiting factor with ROM. MMT: cervical - unable to hold against an isometirc force but is able to hold head up without apparent difficulty. Pt. r eports increased pain as reasoning. - Special Tests C/S Radiculapathy - Left Spurlings: Negative C/S Radiculapathy - Right Spurlings: Negative C/S Radiculapathy - Left Cervical distraction: Negative C/S Radiculapathy - Right Cervical distraction: Negative C/S Radiculapathy - Left Relief test: Negative C/S Radiculapathy - Right Relief test: Negative Cervical Sitting: Protrusion - Mechanical Response: No effect Cervical Sitting: Protrusion - Symptoms During Testing: No effect Cervical Sitting: Protrusion - Symptoms After Testing: No effect Cervical Sitting: Retraction - Mechanical Response: No effect Cervical Sitting: Retraction - Symptoms During Testing: No effect Cervical Sitting: Retraction - Symptoms After Testing: No effect Cervical Sitting: Retraction-Extension - Mechanical Response: No effect Cerv Sitting: Retraction-Extension - Symptoms During Testing: Increases Cerv Sitting: Retraction-Extension - Symptoms After Testing: No worse Cervical Sitting: Sidebend Right - Mechanical Response: No effect Cervical Sitting: Sidebend Right - Symptoms During Testing: Increases Cervical Sitting: Sidebend Right - Symptoms After Testing: No worse Cervical Sitting: Sidebend Left - Mechanical Response: No effect Cervical Sitting: Sidebend Left - Symptoms During Testing: Increases Cervical Sitting: Sidebend Left - Symptoms After Testing: No worse Cervical Sitting: Rotation Right - Mechanical Response: No effect Cervical Sitting: Rotation Right - Symptoms During Testing: Increases Cervical Sitting: Rotation Right - Symptoms After Testing: No worse Cervical Sitting: Rotation Left - Mechanical Response: No effect Cervical Sitting: Rotation Left - Symptoms During Testing: Increases Cervical Sitting: Rotation Left - Symptoms After Testing: No worse - Goals Goal 1:: Pt I with HEP Goal Time Frame: 2-4 Weeks Goal 2:: Pt reports 0/10 cervical pain with all motion Goal Time Frame: 2-4 Weeks Goal 3:: pt improves ROM by 100% in all diretions without increase in symptoms. Goal Time Frame: 2-4 Weeks Goal 4:: pt reports no interrupted sleep at night Goal Time Frame: 2-4 Weeks - Rehabilitation Potential Physical Therapy Diagnosis: pt presents with signs and symptoms consistent with cervicalgia. pt presents with cervical neck pain associated with both active and passive motions and radiating symptoms into mid back and shoulders. pt would benefit from PT to promote improved posture, increased strength, increased ROM, and decreased pain. Rehabilitation Potential: Fair - Anticipated Interventions Patient/Client Instruction: Educate patient on: Condition, Plan of Care, Risk Factors, Benefits of Fitness Program For the Purpose of:: To decrease pain, To increase ROM, To improve muscle performance and motor function, To increase tolerance to activity/con dition/position, To improve ability of physical actions for home/community/work/leisure Therapeutic Exercise to Include: Strength training, Postural training, Passive ROM, Active ROM For the Purpose of:: To decrease pain, To increase ROM, To improve muscle performance and motor function, To increase tolerance to activity/condition/position, To improve ability of physical actions for home/community/work/leisure Manual Therapy Techniques to Include: Trigger point massage, Massage, Scar massage, Passive ROM, Functional dry needling For the Purpose of:: To decrease pain, To increase ROM, To increase tolerance to activity/condition/position, To improve ability of physical actions for home/community/work/leisure TENS: Yes Cryotherapy (ice pack, ice massage): Yes Thermo therapy (hot pack): Yes Ultrasound (thermal/non thermal): Yes For the Purpose of:: To decrease pain, To increase tolerance to activity/condition/position Thank you for the opportunity to evaluate your patient. For Medicare and Medicare HMO plans, please review the plan of care and approve it. It will need to be FAXED BACK to us at [phone] for Medicare purposes. Please let me know if there are questions or concerns regarding this plan of care. Physician Signature: Date:
--- NOTE | 2019-01-31 09:14 | HP.PT.NRP ---
HP - Discharge Summary (1) - Patient Information ROGER HOOD was seen in my office for initial evaluation on 09/04/18. The following Plan of Care was established for this patient: Initial Frequency: 1-2x /Week Initial Duration: 3 Weeks - Anticipated Interventions Patient/Client Instruction: Educate patient on: Condition, Plan of Care, Risk Factors, Benefits of Fitness Program For the Purpose of:: To decrease pain, To increase ROM, To improve muscle performance and motor function, To increase tolerance to activity/condition/position, To improve ability of physical actions for home/community/work/leisure Therapeutic Exercise to Include: Strength training, Postural training, Passive ROM, Active ROM For the Purpose of:: To decrease pain, To increase ROM, To improve muscle performance and motor function, To increase tolerance to activity/condition/position, To improve ability of physical actions for home/community/work/leisure Manual Therapy Techniques to Include: Trigger point massage, Massage, Scar massage, Passive ROM, Functional dry needling For the Purpose of:: To decrease pain, To increase ROM, To increase tolerance to activity/condition/position, To improve ability of physical actions for home/community/work/leisure TENS: Yes Cryotherapy (ice pack, ice massage): Yes Thermo therapy (hot pack): Yes Ultrasound (thermal/non thermal): Yes For the Purpose of:: To decrease pain, To increase tolerance to activity/condition/position This patient was last seen in our office 09/28/18. Pertinent comments regarding their Physical therapy will appear below: Pt. was treated for her neck pain with US, manual techniques and streching. Pt. has not been seen in several months and will be DC from PT at this point in time. At this point I will be discontinuing this patient from physical therapy. I would be happy to see this patient again in the future if found appropriate by the physician. Thank you! Adan Hernandes, SORENT
== END 2018-09-28 19:00 | disposition home or self-care (01) ==
LOC: PT 14:30
PROVIDERS: Family Provider Family Medicine; PCP Family Medicine; Referring Provider Surgery; Visit Provider Surgery
DX: S11.90XD Unspecified open wound of unspecified part of neck, subsequent encounter (principal); S01.90XD Unspecified open wound of unspecified part of head, subsequent encounter; L02.811 Cutaneous abscess of head [any part, except face]; L02.11 Cutaneous abscess of neck; M54.2 Cervicalgia; M62.838 Other muscle spasm; E11.9 Type 2 diabetes mellitus without complications; G89.29 Other chronic pain; L73.2 Hidradenitis suppurativa; F17.200 Nicotine dependence, unspecified, uncomplicated
CPT/HCPCS: 97035; 97110; 97140; 97162; 97163

== ENCOUNTER 2018-11-27 12:42 | Emergency (ER) | payer MEDICARE, SELFPAY ==
[2018-11-27 12:42] VITALS: BMI 40.8
[2018-11-27 12:43] VITALS: BP 115/68; PULSE 90; RESP 14; TEMP 37.2; O2SAT 100; BMI 35.8
[2018-11-27 14:05] VITALS: PULSE 83; RESP 16; O2SAT 100
[2018-11-27 14:06] VITALS: O2SAT 100
[2018-11-27] MEDS: predniSONE 20 MG Tablet 60 MG PO (15:01)
[2018-11-27 15:11] LABS: Bedside Glucose 84 mg/dL (70-110)
[2018-11-27 15:29] VITALS: PULSE 66; RESP 20
[2018-11-27] MEDS: Ipratropium/Albuterol Sulfate 3 ML AMPUL.NEB INHALATION (15:29)
--- NOTE | 2018-11-27 15:47 | RAD_ITS ---
STUDY: X-RAY CHEST REASON FOR EXAM: Female, 33 years old. Cough. Shortness of breath. TECHNIQUE: PA and lateral views of the chest. COMPARISON: Comparison is made with prior study dated May 23, 2018. FINDINGS: The lungs are clear and expanded. There is no demonstrated pleural abnormality. Normal size heart. Normal mediastinum and true. Normal visualized pulmonary arteries. Normal visualized aortic arch and descending thoracic aorta. Normal visualized thoracic spine. Normal visualized ribs, clavicles, and shoulders. There is no demonstrated abnormality of the visualized soft tissue structures of the upper abdomen. RAD/Chest PA and Lateral IMPRESSION: Normal x-ray examination of the chest. Electronically Signed: Solis Martinez MD at 16:02 EST Tel [phone], Service support ,
[2018-11-27] MEDS: Benzonatate 100 MG Capsule PO (16:00)
--- NOTE | 2018-11-27 16:38 | ED.DCSUM_ITS ---
- ER Visit Summary Date of Service: 11/27/18 Chief Complaint: Hard to breathe History of Present Illness: The patient is a 33 F with shortness of breath increasing gradually over the past week. Patient has wheezing and coughing as well. Chills but no fevers. History of asthma, diabetes, and bipolar disorder. She is a smoker. Physical Examination: Afebrile and vital signs unremarkable. 100% on room air. Heart regular rate and rhythm. Lungs show expiratory wheeze in all atwood. Patient is sitting comfortably and breathing comfortably. Skin appears normal. Test Results: Chest x-ray was normal. Emergency Department Course and Treatment: Patient treated with steroids and DuoNeb. She had improvement of her symptoms. Patient was prescribed azithromycin, Tessalon, prednisone. Patient sugars have been under control, and she will watch him closely. She has breathing treatments at home. Follow-up with her doctor. Return for any new or worsening issues. Treatment Plan: As above Disposition: Discharge Impression: 1. Bronchitis This note was generated with [employer] dictation software. It may contain incorrect words, spelling, and punctuation that were not noted in review of the chart prior to signing ED Disposition - Plan for ED Patient: Chief Complaint: Cough Instructions: ED Bronchitis Asthmatic Prescriptions: Azithromycin [Zithromax] 250 mg PO DAILY #4 tab Benzonatate [Tessalon Perle] 200 mg PO TID PRN PRN #20 cap PRN Reason: Cough Prednisone 40 mg PO UD 4 Days #16 tab Referrals: Aj Staley MD [Primary Care Provider] -
[2018-11-27] MEDS: Azithromycin 250 MG Tablet 500 MG PO (16:53)
[2018-11-27 16:55] VITALS: PULSE 86; RESP 14; O2SAT 100
== END 2018-11-27 16:57 | disposition home or self-care (01) ==
PROVIDERS: Emergency Provider Emergency Medicine; Family Provider Family Medicine; PCP Family Medicine
DX: J40 Bronchitis, not specified as acute or chronic (principal); J45.909 Unspecified asthma, uncomplicated; E11.9 Type 2 diabetes mellitus without complications; F31.9 Bipolar disorder, unspecified; Z79.4 Long term (current) use of insulin; Z79.84 Long term (current) use of oral hypoglycemic drugs; Z79.899 Other long term (current) drug therapy; F17.200 Nicotine dependence, unspecified, uncomplicated
CPT/HCPCS: 71046; 82962; 94640; 99283

== ENCOUNTER 2018-12-10 15:00 | Emergency (ER) | payer MEDICARE, SELFPAY ==
[2018-12-10] VITALS (9 sets, daily range): BP systolic 112–148; BP diastolic 72–97; PULSE 95–118; RESP 14–17; TEMP 36.6; O2SAT 98–100; BMI 37.6
--- NOTE | 2018-12-10 15:20 | ED.DCSUM_ITS ---
- ER Visit Summary Date of Service: 12/10/18 Chief Complaint: Suicidal thoughts History of Present Illness: The patient is a 33 F who has a history of bipolar disorder presents to the emergency department with increasing depression and suicidal thoughts. The patient has actually been very well maintained with her outpatient regimen. She is up and hospitalized in almost 9 years. She was on chronic pain medication until 2 years ago. She states that she has been using alcohol and occasional marijuana to deal with her pain. She is very concerned because she states that she has not been hospitalized in over 9 years, with her increasing depression she feels like she is a risk to herself. She has had multiple prior attempts. Physical Examination: Vital signs reviewed General: Well-nourished, well-developed Head: Normocephalic, atraumatic Eyes: Pupils equal and reactive, extraocular muscles intact Neck, supple, no lymphadenopathy Heart: Regular rate and rhythm Respiratory: No distress, clear bilaterally Abdomen: Soft, nontender, nondistended, no peritoneal signs Back: Nontender Extremities: Nontender, no edema, no cords Skin: Normal color no rash Neuro: Alert and oriented, no focal or lateralizing deficits Test Results: [] Emergency Department Course and Treatment: The patient presents with increasing depression and suicidal thoughts. IV was established. She was given oral Ativan with improvement of her symptoms. Labs relatively unremarkable. Her tox is positive for THC which the patient was upfront about. The patient was divided by crisis. It was thought that she would best be served with inpatient psychiatric care. The patient will be transferred. Treatment Plan: [] Disposition: Transfer Impression: 1. Suicidal ideation This note was generated with [employer] dictation software. It may contain incorrect words, spelling, and punctuation that were not noted in review of the chart prior to signing ED Disposition - Plan for ED Patient: Chief Complaint: Suicidal Referrals: Aj Staley MD [Primary Care Provider] -
--- NOTE | 2018-12-10 15:24 | ED.RN ---
PT BELONGINGS: GREEN BRA AND GREEN UNDERWEAR, SOCKS, SWEAT PANTS, SHIRT, BLUE AND WHITE WINTER HAT, BLACK JACKET, BLACK PURSE, BLACK SHOES> jEWLERLY PLACED IN DENTURE CUP WITH PT LABEL: 4 SILVER RING, ONE GOLD RING, 3 SILVER BRACELETS AND A SILVER BRACELET, NOSE AND LIP PIERCING.
[2018-12-10] MEDS: LORazepam 1 MG Tablet 2 MG PO (15:33)
[2018-12-10 16:38] LABS: Absolute Lymphocyte Count 4.77 X10^3/ul (0.83-4.51); Absolute Neutrophil Count 7.7 X10^3/uL (2.0-7.7); Basophil# 0.05 X10^3/uL; Basophil% 0.4 % (0-1); Eosinophil# 0.27 X10^3/uL; Hematocrit 42.6 % (37-47); Hemoglobin 13.4 g/dl (12.0-15.0); Lymphocyte # 4.77 X10^3/ul (4.0); Lymphocyte % 34.8 % (19-41); Mean Corp Hgb Conc 31.5 g/gl (32-36); Mean Corpuscular Hgb 31.2 pg (27.0-32.0); Mean Corpuscular Volume 99.3 fL (81-99); Mean Platelet Vol. 8.9 fl (6.2-12.0); Monocyte# 0.64 X10^3/uL; Monocyte% 4.7 % (0-10); Neutrophil # 7.71 X10^3/uL (2.7-7.7); Neutrophil % 56.3 % (47-70); Platelet Count 360 K/mm3 (150-450); RBC Distribution Width CV 15.6 % (11.6-14.6); RBC Distribution Width SD 56.8 fl (35.1-43.9); Red Blood Count 4.29 M/mm3 (4.2-5.4); White Blood Count 13.7 K/mm3 (4.4-11.0)
[2018-12-10 16:41] LABS: POSITIVE COUNT NO; POSITIVE DIFFERENTIAL NO; POSITIVE MORPHOLOGY NO
--- NOTE | 2018-12-10 16:49 | CM.ED ---
Addendum entered by Kelsey Cates 12/10/18 17:31: Social Work Note Pt later states that she has the contact information for Behavioral Health and will contact them if she decides she is interested. Kelsey Cates, INTERNAL CONTROLS MANAGER, CAVALRY OFFICER Original Note: Social Work Assessment Information obtained from: Medical record and pt. Pt is sitting upright in bed in no apparent distress eating. Introduced self and role at [facility] and relieved 1:1 sitter temporarily. Living Arrangements: Pt reports to live with her parents. She does have an 11 y/o daughter who lives with the father who has primary custody. Pt sees her daughter every other weekend and on Wednesdays. Stressors: Pt identifies the holidays as a stressor, close friend she had she has not spoken too in 3 weeks, and today her 11 y/o daughter told her that she did not want to see her anymore. She is fearful she will lose the visitation she does have. She last saw her daughter on Tuesday and they got in an argument and she had her father come pick her up. No open CSB case. Supports: Pt identifies her mother as her primary support. States that she does not have many close friends and only identifies her mother as a support. Mental Health History: Pt reports a hx of Borderline Personality Disorder, OCD tendencies, Bipolar Type I, Generalized Anxiety and Major Depressive DO. She does report to have thoughts of killing herself currently. States that she used to be heavy into drugs and would OD as a means to complete suicide. At this time she has not set a date or time to do this, nor does she have access to these drugs. States that she has not spoken to her friends she used to deal with in years, and is not sure she could even get a hold of them to get illicit drugs. Reports that she has thoughts of suicide approximately 1-2x/week (varies) and that they are difficult to control. She had a suicide attempt years ago and is unable to confirm exactly. Her last psychiatric hospitalization was on June 20, 2010 at [facility]. Pt states that although she lives with her parents she does not feel that she could keep herself safe overnight until she was able to make it to a follow-up mental health appointment on 12/11. Claims at this time that she does think she needs psychiatric hospitalization. Pt is currently established with [facility], and sees Dr. Espinal (psychiatrist) every 6 months, and Izabela De Santiago is her counselor, but she has not seen her since August. Educate to our IOP program and the pt reports that she had completed it before and really enjoyed. She was agreeable to have this mortgage or loan underwriter have [facility] program support specialist reach out to her at a later date. At this time d/t pt's concern of an inability to remain safe overnight, and trouble with controlling thoughts of suicide she will be evaluated by crisis to determine if psychiatric placement is appropriate. Substance Use Hx: Pt reports to be drinking alcohol daily for approximately 2.5 months. Also smokes marijuana occasionally for pain management. Pt went to an addictions counselor for approximately 7 years and completed and IOP program for addictions. 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 Risk Factors: Recently went through holiday season which is a trigger, turmoil in relationship with her daughter, and loss of recently friend support. Protective Factors: Pt identifies her mother, father and daughter as reasons she would not complete suicide. Pt does not live alone, and lives with her parents. She is linked with a psychiatrist and counselor. Intervention(s): Educated to [facility] Program. Crisis to evaluate to determine if pt requires psychiatric placement at this time. Physician updated on recommendation, and agrees. PLAN: Crisis to evaluate and determine if placement is needed. Kelsey Cates, INTERNAL CONTROLS MANAGER, [place]
[2018-12-10 16:54] LABS: Anion Gap 8 (5-15); BUN 10 mg/dL (7-18); BUN/Creat Ratio 10.6 RATIO (10-20); Calcium,Total 9.3 mg/dL (8.5-10.1); Chloride 106 mmol/L (98-107); Creatinine, Serum 0.94 mg/dL (0.55-1.02); EST Glomerular Filtration Rate 72 mL/min (>60); Est Glom Filt Rate - Afr Amer 88 mL/min (>60); Estimated Creatinine Clearance 75.88 ml/min; Glucose 69 mg/dL (74-106); Potassium 3.7 mmol/L (3.5-5.1); Sodium Level 138 mmol/L (136-145)
[2018-12-10 17:03] LABS: Pregnancy, Serum, hCG Quali. NEGATIVE Negative (0-9 Nonpreg)
[2018-12-10 17:13] LABS: Alcohol, Blood (Medical)-Serum < 3.0 mg/dL
--- NOTE | 2018-12-10 17:26 | ED.RN ---
warren from crisis called, she is stuck in her driveway. she stated she called lizette and that [employer]izette is trying to find coverage.
--- NOTE | 2018-12-10 18:14 | ED.RN ---
PHONE GIVEN TO PATIENT PER REQUEST, PT COOPERATIVE AT THIS TIME.
[2018-12-10 18:20] LABS: Amphetamine Urine VISTA NEGATIVE (<1000 ng/mL); Barbiturate Urine VISTA NEGATIVE (< 200 ng/mL); Benzodiazepine Urine VISTA NEGATIVE (< 200 ng/mL); Cocaine Urine VISTA NEGATIVE (< 300 ng/mL); Ecstacy Urine VISTA NEGATIVE (< 500 ng/mL); Methadone Urine VISTA NEGATIVE (< 300 ng/mL); PCP Urine VISTA NEGATIVE (< 25 ng/mL); THC Urine VISTA POSITIVE (< 50 ng/mL); Vista UDS pH Range 7
--- NOTE | 2018-12-10 18:36 | ED.RN ---
[facility] CALLED AND STATED THAT FRANTZ WOULD BE IN TO EVALUATE PATIENT WHEN SHE CAME ON SHIFT AROUND 1999.
--- NOTE | 2018-12-10 20:47 | ED.RN ---
FRANTZ FROM CRISIS CALLED AND STATED SHE IS ON THE WAY HERE TO SEE THIS PT.
--- NOTE | 2018-12-10 21:20 | ED.RN ---
FRANTZ FROM [facility]ISIS IS HERE TO SEE THIS PT.
--- NOTE | 2018-12-10 21:26 | ED.RN ---
Lydia from Crisis in room with ptCamille
[2018-12-11] VITALS (11 sets, daily range): BP systolic 101–118; BP diastolic 64–68; PULSE 93–96; RESP 16–18; O2SAT 99
[2018-12-11 01:11] LABS: Bedside Glucose 92 mg/dL (70-110)
[2018-12-11] MEDS: QUEtiapine 100 MG Tablet 400 MG PO (03:05)
--- NOTE | 2018-12-11 07:09 | ED.RN ---
FINGER STICK GLUCOSE THIS AM CHARTED, BREAKFAST TRAY ORDERED. PHYSICIAN NOTIFIED OF GLUCOSE PRIOR TO BREAKFAST TRAY DELIVERED.
[2018-12-11 07:10] LABS: Bedside Glucose 145 mg/dL (70-110)
[2018-12-11] MEDS: metFORMIN HCl 1,000 MG Tablet 1000 MG PO (07:27)
[2018-12-11] MEDS: busPIRone 5 MG Tablet 20 MG PO (07:27)
[2018-12-11] MEDS: DULoxetine Hcl 30 MG Capsule 90 MG PO (07:29)
[2018-12-11] MEDS: Gabapentin 600 MG Tablet 300 MG PO (07:29)
[2018-12-11] MEDS: glipiZIDE 5 MG Tablet 15 MG PO (07:30)
[2018-12-11] MEDS: Lithium Carbonate 300mg Capsule 300 MG PO (07:31)
[2018-12-11] MEDS: Insulin Lispro 100 UNIT/ML INSULN.PEN 6 UNIT SC ×2 (07:34→11:15)
[2018-12-11] MEDS: Naproxen 375 MG Tablet PO (08:05)
[2018-12-11 11:15] LABS: Bedside Glucose 141 mg/dL (70-110)
--- OUTSIDE RECORDS SUMMARY | 2019-02-12 11:58 | XMS RPT_ITS ---
:1985 Author Organization OHIP Support Name Relationship Address Phone D Unavailable Unavailable Unavailable SOMBUTTAVEEKOON, SOMCHAI/STEPHA Unavailable [address] + [place] [address] CR DYLON Unavailable [address] + [place] [address] D Unavailable Unavailable Unavailable SOMBUTTAVEEKOON, SOMCHAI/STEPHA Unavailable [address] + [place] [address] CR DYLON Unavailable [address] + [place] [address] D Unavailable Unavailable Unavailable SOMBUTTAVEEKOON, SOMCHAI/STEPHA Unavailable [address] + [place] [address] CR DYLON Unavailable [address] + [place] [address] D Unavailable Unavailable Unavailable SOMBUTTAVEEKOON, SOMCHAI/STEPHA Unavailable [address] + [place] [address] CR DYLON Unavailable [address] + [place] [address] D Unavailable Unavailable Unavailable SOMBUTTAVEEKOON, SOMCHAI/STEPHA Unavailable [address] + [place] [address] CR DYLON Unavailable [address] + [place] [address] D Unavailable Unavailable Unavailable SOMBUTTAVEEKOON, SOMCHAI/STEPHA Unavailable [address] + [place] [address] STALNAKER, DYLON Unavailable [address] + [place] [address] D Unavailable Unavailable Unavailable SOMBUTTAVEEKOON, SOMCHAI/STEPHA Unavailable [address] + [place] [address] STALNAKER, DYLON Unavailable [address] + [place] [address] D Unavailable Unavailable Unavailable SOMBUTTAVEEKOON, SOMCHAI/STEPHA Unavailable [address] + [place] [address] STALNAKER, DYLON Unavailable [address] + [place] [address] D Unavailable Unavailable Unavailable SOMBUTTAVEEKOON, SOMCHAI/STEPHA Unavailable [address] + [place] [address] STALNAKER, DYLON Unavailable [address] + [place] [address] D Unavailable Unavailable Unavailable SOMBUTTAVEEKOON, SOMCHAI/STEPHA Unavailable [address] + [place] [address] STALNAKER, DYLON Unavailable [address] + [place] [address] D Unavailable Unavailable Unavailable SOMBUTTAVEEKOON, SOMCHAI/STEPHA Unavailable [address] + [place] [address] STALNAKER, DYLON Unavailable [address] + [place] [address] D Unavailable Unavailable Unavailable SOMBUTTAVEEKOON, SOMCHAI/STEPHA Unavailable [address] + [place] [address] STALNAKER, DYLON Unavailable [address] + [place] [address] D Unavailable Unavailable Unavailable SOMBUTTAVEEKOON, SOMCHAI/STEPHA Unavailable [address] + [place] [address] STALNAKER, DYLON Unavailable [address] + [place] [address] D Unavailable Unavailable Unavailable SOMBUTTAVEEKOON, SOMCHAI/STEPHA Unavailable [address] + [place] [address] STALNAKER, DYLON Unavailable [address] + [place] [address] D Unavailable Unavailable Unavailable SOMBUTTAVEEKOON, SOMCHAI/STEPHA Unavailable [address] + [place] [address] STALNAKER, DYLON Unavailable [address] + [place] [address] D Unavailable Unavailable Unavailable SOMBUTTAVEEKOON, SOMCHAI/STEPHA Unavailable [address] + [place] [address] STALNAKER, DYLON Unavailable [address] + [place] [address] D Unavailable Unavailable Unavailable SOMBUTTAVEEKOON, SOMCHAI/STEPHA Unavailable [address] + [place] [address] STALNAKER, DYLON Unavailable [address] + [place] [address] D Unavailable Unavailable Unavailable SOMBUTTAVEEKOON, SOMCHAI/STEPHA Unavailable [address] + [place] [address] STALNAKER, DYLON Unavailable [address] + [place] [address] D Unavailable Unavailable Unavailable SOMBUTTAVEEKOON, SOMCHAI/STEPHA Unavailable [address] + [place] [address] STALNAKER, DYLON Unavailable [address] + [place] [address] D Unavailable Unavailable Unavailable SOMBUTTAVEEKOON, SOMCHAI/STEPHA Unavailable [address] + [place] [address] STALNAKER, DYLON Unavailable [address] + [place] [address] D Unavailable Unavailable Unavailable SOMBUTTAVEEKOON, SOMCHAI/STEPHA Unavailable [address] + [place] [address] STALNAKER, DYLON Unavailable [address] + [place] [address] D Unavailable Unavailable Unavailable SOMBUTTAVEEKOON, SOMCHAI/STEPHA Unavailable [address] + [place] [address] STALNAKER, DYLON Unavailable [address] + [place] [address] D Unavailable Unavailable Unavailable SOMBUTTAVEEKOON, SOMCHAI/STEPHA Unavailable [address] + [place] [address] STALNAKER, DYLON Unavailable [address] + [place] [address] D Unavailable Unavailable Unavailable SOMBUTTAVEEKOON, SOMCHAI/STEPHA Unavailable [address] + [place] [address] STALNAKER, DYLON Unavailable [address] + [place] [address] D Unavailable Unavailable Unavailable SOMBUTTAVEEKOON, SOMCHAI/STEPHA Unavailable [address] + [place] [address] STALNAKER, DYLON Unavailable [address] + [place] [address] D Unavailable Unavailable Unavailable SOMBUTTAVEEKOON, SOMCHAI/STEPHA Unavailable [address] + [place] [address] STALNAKER, DYLON Unavailable [address] + [place] [address] D Unavailable Unavailable Unavailable SOMBUTTAVEEKOON, SOMCHAI/STEPHA Unavailable [address] + [place] [address] STALNAKER, DYLON Unavailable [address] + [place] [address] D Unavailable Unavailable Unavailable SOMBUTTAVEEKOON, SOMCHAI/STEPHA Unavailable [address] + [place] [address] STALNAKER, DYLON Unavailable [address] + [place] [address] D Unavailable Unavailable Unavailable SOMBUTTAVEEKOON, SOMCHAI/STEPHA Unavailable [address] + [place] [address] STALNAKER, DYLON Unavailable [address] + [place] [address] D Unavailable Unavailable Unavailable SOMBUTTAVEEKOON, SOMCHAI/STEPHA Unavailable [address] + [place] [address] STALNAKER, DYLON Unavailable [address] + [place] [address] D Unavailable Unavailable Unavailable SOMBUTTAVEEKOON, SOMCHAI/STEPHA Unavailable [address] + [place] [address] STAJUANAKER, DYLON Unavailable [address] + [place] [address] D Unavailable Unavailable Unavailable SOMBUTTAVEEKOON, SOMCHAI/STEPHA Unavailable [address] + [place] [address] STALNAKER, DYLON Unavailable [address] + [place] [address] D Unavailable Unavailable Unavailable SOMBUTTAVEEKOON, SOMCHAI/STEPHA Unavailable [address] + [place] [address] STALNAKER, DYLON Unavailable [address] + [place] [address] D Unavailable Unavailable Unavailable SOMBUTTAVEEKOON, SOMCHAI/STEPHA Unavailable [address] + [place] [address] STALNAKER, DYLON Unavailable [address] + [place] [address] D Unavailable Unavailable Unavailable SOMBUTTAVEEKOON, SOMCHAI/STEPHA Unavailable [address] + [place] [address] STALNAKER, DYLON Unavailable [address] + [place] [address] D Unavailable Unavailable Unavailable SOMBUTTAVEEKOON, SOMCHAI/STEPHA Unavailable [address] + [place] [address] STALNAKER, DYLON Unavailable [address] + [place] [address] D Unavailable Unavailable Unavailable SOMBUTTAVEEKOON, SOMCHAI/STEPHA Unavailable [address] + [place] [address] STALNAKER, DYLON Unavailable [address] + [place] [address] D Unavailable Unavailable Unavailable SOMBUTTAVEEKOON, SOMCHAI/STEPHA Unavailable [address] + [place] [address] STALNAKER, DYLON Unavailable [address] + [place] [address] D Unavailable Unavailable Unavailable SOMBUTTAVEEKOON, SOMCHAI/STEPHA Unavailable [address] + [place] [address] STALNAKER, DYLON Unavailable [address] + [place] [address] D Unavailable Unavailable Unavailable SOMBUTTAVEEKOON, SOMCHAI/STEPHA Unavailable [address] + [place] [address] STALNAKER, DYLON Unavailable [address] + [place] [address] D Unavailable Unavailable Unavailable SOMBUTTAVEEKOON, SOMCHAI/STEPHA Unavailable [address] + [place] [address] STALNAKER, DYLON Unavailable [address] + [place] [address] D Unavailable Unavailable Unavailable SOMBUTTAVEEKOON, SOMCHAI/STEPHA Unavailable [address] + [place] [address] STALNAKER, DYLON Unavailable [address] + [place] [address] D Unavailable Unavailable Unavailable SOMBUTTAVEEKOON, SOMCHAI/STEPHA Unavailable [address] + [place] [address] STALNAKER, DYLON Unavailable [address] + [place] [address] D Unavailable Unavailable Unavailable SOMBUTTAVEEKOON, SOMCHAI/STEPHA Unavailable [address] + [place] [address] STALNAKER, DYLON Unavailable [address] + [place] [address] D Unavailable Unavailable Unavailable SOMBUTTAVEEKOON, SOMCHAI/STEPHA Unavailable [address] + [place] [address] STALNAKER, DYLON Unavailable [address] + [place] [address] D Unavailable Unavailable Unavailable SOMBUTTAVEEKOON, SOMCHAI/STEPHA Unavailable [address] + [place] [address] STALNAKER, DYLON Unavailable [address] + [place] [address] D Unavailable Unavailable Unavailable SOMBUTTAVEEKOON, SOMCHAI/STEPHA Unavailable [address] + [place] [address] STALNAKER, DYLON Unavailable [address] + [place] [address] Care Team Providers Name Role Phone AJ HOPE Attending Unavailable KVNG BEDOLLA Attending Unavailable MITZI BARRIOS ([facility]) Attending Unavailable ARNALDO HARKINS Referring Unavailable Rebeka, Aj Primary Care Unavailable Temo Stewart Attending Unavailable Rebeka, Aj Primary Care Unavailable Dusty Alarcon Attending Unavailable Arias Boswell Attending Unavailable Aj Hope Referring Unavailable Rebeka, Aj Primary Care Unavailable Arias Boswell Attending Unavailable Aj Hope Referring Unavailable Rebeka, Aj Primary Care Unavailable Arias Boswell Attending Unavailable Rebeka, Aj Primary Care Unavailable Arias Boswell Referring Unavailable Rebeka, Aj Primary Care Unavailable Vimal Lowe Attending Unavailable Arias Boswell Attending Unavailable Rebeka, Aj Referring Unavailable Rebeka, Aj Primary Care Unavailable Slaby, Arias Attending Unavailable Rebeka, Aj Referring Unavailable Rebeka, Aj Primary Care Unavailable Tran Sellers Attending Unavailable Rebeka, Aj Referring Unavailable Turpin, Aj Primary Care Unavailable Slaby, Arias Attending Unavailable Turpin, Aj Referring Unavailable Turpin, Aj Primary Care Unavailable Slaby, Arias Attending Unavailable Slaby, Arias Referring Unavailable Turpin, Aj Primary Care Unavailable Slaby, Arias Attending Unavailable Rebeka, Aj Referring Unavailable Rebeka, Aj Primary Care Unavailable Slaby, Arias Attending Unavailable Slaby, Arias Referring Unavailable Rebeka, Aj Primary Care Unavailable Ashelfah, Ghasem Consulting Unavailable Slaby, Arias Admitting Unavailable Ashelfah, Ghasem Attending Unavailable Slaby, Arias Referring Unavailable Turpin, Aj Primary Care Unavailable Ashelfah, Ghasem Consulting Unavailable Slaby, Arias Consulting Unavailable Ashelfah, Ghasem Attending Unavailable Slaby, Arias Referring Unavailable Rebeka, Aj Primary Care Unavailable Ashelfah, Ghasem Consulting Unavailable Slaby, Arias Consulting Unavailable Slaby, Arias Admitting Unavailable Ashelfah, Ghasem Attending Unavailable Slaby, Arias Referring Unavailable Turpin, Aj Primary Care Unavailable Ashelfah, Ghasem Consulting Unavailable Slaby, Arias Consulting Unavailable Slaby, Arias Admitting Unavailable Slaby, Arias Attending Unavailable Slaby, Arias Referring Unavailable Rebeka, Aj Primary Care Unavailable Ashelfah, Ghasem Consulting Unavailable Slaby, Arias Consulting Unavailable Slaby, Arias Admitting Unavailable Slaby, Arias Attending Unavailable Slaby, Arias Referring Unavailable Rebeka, Aj Primary Care Unavailable Ashelfah, Ghasem Consulting Unavailable Slaby, Arias Consulting Unavailable Rebeka, Aj Primary Care Unavailable Temo Spencer Attending Unavailable Slaby, Arias Attending Unavailable Rebeka, Aj Referring Unavailable Rebeka, Aj Primary Care Unavailable Akhil Mora Attending Unavailable Slaby, Arias Referring Unavailable Slaby, Arias Attending Unavailable Turpin, Aj Primary Care Unavailable Slaby, Arias Attending Unavailable Rebeka, Aj Referring Unavailable Turpin, Aj Primary Care Unavailable Slaby, Arias Attending Unavailable Slaby, Arias Referring Unavailable Rebeka, Aj Primary Care Unavailable Slaby, Arias Attending Unavailable Turpin, Aj Primary Care Unavailable Slaby, Arias Attending Unavailable Turpin, Aj Primary Care Unavailable Rebeka, Aj Primary Care Unavailable Jonny Key Admitting Unavailable Jonny Key Attending Unavailable Slaby, Arias Consulting Unavailable Jopperi, Jonny Admitting Unavailable Jopperi, Jonny Attending Unavailable Turpin, [facility] Primary Care Unavailable Jopperi, Jonny Consulting Unavailable Jopperi, Jonny Admitting Unavailable Jopperi, Jonny Attending Unavailable Rebeka, [facility] Primary Care Unavailable Slaby, Arias Consulting Unavailable Jopperi, Jonny Consulting Unavailable Jopperi, Jonny Admitting Unavailable Jopperi, Jonny Attending Unavailable Turpin, Aj Primary Care Unavailable Slaby, Arias Consulting Unavailable Jopperi, Jonny Consulting Unavailable Jopperi, Jonny Admitting Unavailable Slabdaniel, Arias Attending Unavailable Rebeka, Aj Primary Care Unavailable Slaby, Arias Consulting Unavailable Jopperi, Jonny Referring Unavailable Jopperi, Jonny Consulting Unavailable Jopperi, Jonny Admitting Unavailable Slabdaniel, Arias Attending Unavailable Rebeka, [facility] Primary Care Unavailable Slabdaniel, Arias Consulting Unavailable Jopperi, Jonny Referring Unavailable Jopperi, Jonny Consulting Unavailable Jopperi, Jonny Admitting Unavailable Jopperi, Jonny Attending Unavailable Turpin, [facility] Primary Care Unavailable Slabdaniel, Arias Consulting Unavailable Jopperi, Jonny Consulting Unavailable Jopperi, Jonny Admitting Unavailable Jopperi, Jonny Attending Unavailable Rebeka, [facility] Primary Care Unavailable Slabdaniel, Arias Consulting Unavailable Jopperi, Jonny Consulting Unavailable Slabdaniel, Arias Attending Unavailable Rebeka, Aj Referring Unavailable Turpin, [facility] Primary Care Unavailable Slabdaniel, Arias Attending Unavailable Rebeka, [facility] Primary Care Unavailable Slabdaniel, Arias Attending Unavailable Turpin, Aj Referring Unavailable Rebeka, [facility] Primary Care Unavailable Slaby, Arias Attending Unavailable Slaby, Arias Referring Unavailable Rebeka, [facility] Primary Care Unavailable Byron Gordon Attending Unavailable Jopperi, Jonny Referring Unavailable Slabdaniel, Arias Attending Unavailable Turpin, Aj Referring Unavailable Rebeka, Aj Primary Care Unavailable Slabdaniel, Arias Attending Unavailable Turpin, Aj Referring Unavailable Slaby, Arias Attending Unavailable Slaby, Arias Referring Unavailable Turpin, Aj Primary Care Unavailable Slabdaniel, Arias Attending Unavailable Rebeka, Aj Primary Care Unavailable Slaby, Arias Consulting Unavailable Slabdaniel, Arias Attending Unavailable Rebeka, Aj Primary Care Unavailable Slabdaniel, Arias Consulting Unavailable Slabdaniel, Arias Attending Unavailable Rebeka, Aj Referring Unavailable Slaby, Arias Attending Unavailable Rebeka, Aj Referring Unavailable Slaby, Arias Attending Unavailable Rebeka, Aj Referring Unavailable Rebeka, Aj Primary Care Unavailable PROBLEMS PROBLEMS DATE TYPE CONDITION / CODE ATTENDING STATUS SOURCE 11/29/2018 Unknown R06.02 - Shortness of Temo Stewart Active [place] breath / Community R06.02(ICD-10) Hospital Repository 11/27/2018 Active Cough / R05(ICD-10) NA Active [facility] Repository 09/28/2018 Unknown S11.90XD - Unspecified SlabyArias Active [place] open wound of Community unspecified part of Hospital neck, subsequent Repository encounter / S11.90XD(ICD-10) 11/29/2018 Unknown R94.31 - Abnormal [place], Active [place] electrocardiogram [facility] [ECG] [EKG] / Hospital R94.31(ICD-10) Repository 11/29/2018 Unknown I10 - Essential [place], Active [place] (primary) hypertension [facility] / I10(ICD-10) Hospital Repository 11/29/2018 Unknown L02.511 - Cutaneous JoppJonny rosenberg Active [place] abscess [facility] right hand [facility] / L02.511(ICD-10) Hospital Repository 11/29/2018 Unknown L73.2 - Hidradenitis SlabyArias Active [place] suppurativa / Community L73.2(ICD-10) Hospital Repository 11/29/2018 Unknown R50.9 - Fever, [place]kon[place]o jaeger Active [facility] [place] unspecified / Community R50.9(ICD-10) Hospital Repository 11/29/2018 Unknown G89.18 - Other acute Slaby, Arias Active [place] postprocedural pain / Community G89.18(ICD-10) Hospital Repository 11/29/2018 Unknown Z01.810 - Encounter Abby, [place] Active [place] for [facility]procedural [facility] cardiovascular Hospital examination / Repository Z01.810(ICD-10) 04/30/2018 Unknown F17.200 - Nicotine Slaby, Arias Active [place] dependence, Community unspecified, Hospital uncomplicated / Repository F17.200(ICD-10) 04/30/2018 Unknown G56.03 - Carpal tunnel Slaby, Arias Active [place] syndrome, bilateral Community upper limbs / Hospital G56.03(ICD-10) Repository 04/30/2018 Unknown M54.2 - Cervicalgia / Slaby, Arias Active [place] M54.2(ICD-10) [facility] Hospital Repository 04/30/2018 Unknown G89.29 - Other chronic Slaby, Arias Active [place] pain / G89.29(ICD-10) [facility] Hospital Repository 04/30/2018 Unknown L73.9 - Follicular SlabyArisa Active [place] disorder, unspecified Community / L73.9(ICD-10) Hospital Repository 04/30/2018 Unknown E11.65 - Type 2 SlabyArias Active [place] diabetes mellitus with Community hyperglycemia / Hospital E11.65(ICD-10) Repository 02/13/2018 Unknown S11.90XA - Unspecified Slaby, Arias Active [place] open wound of Community unspecified part of Hospital neck, initial Repository encounter / S11.90XA(ICD-10) 02/13/2018 Unknown S01.90XA - Unspecified Slaby, Arias Active [place] open wound of Community unspecified part of Hospital head, initial Repository encounter / S01.90XA(ICD-10) 02/13/2018 Unknown L02.11 - Cutaneous SlabyArias Active [place] abscess of neck / Community L02.11(ICD-10) Hospital Repository 02/13/2018 Unknown Z98.890 - Other SlabyArias Active [place] specified Community postprocedural states Hospital / Z98.890(ICD-10) Repository 02/13/2018 Unknown 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, fistula Slaby, 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 / Q18.0(ICD-10) Hospital Repository 02/13/2018 Unknown S01.90XD - Unspecified Slaby, Arias Active [place] open wound of Community unspecified part of Hospital head, subsequent Repository encounter / S01.90XD(ICD-10) 11/29/2018 Unknown R73.9 - Hyperglycemia, Chrissy, Active [place] unspecified / Vimal Community R73.9(ICD-10) Hospital Repository PROCEDURES PROCEDURES No Procedure Records FoundRESULTS RESULTS EMERGENCY DEPARTMENT Observed: 12/11/2018 Status: C Source: [place] SUMMARY 11:22 AM [facility] REPOSITORY [facility] Medical Records Department [address] [place] [address] Emergency Department Summary 12/10/18 1518 MR#: [id number] Acct: [id number] Name: ROGER JIMENEZ Rep #: [id number] : 1985 33 From: Dusty Alarcon MD PCP: Aj Hope MD Status: REG ER ADDENDUM by Rich Linn MD on 12/11/18 at 1122 Prior to transport to psychiatric facility patient was fed lunch and received 6 units of insulin subcutaneously. Date Rich Linn MD cc: Aj Hope MD * Addendum ADDENDUM by Rich Linn MD on 12/11/18 at 0715 Patient was observed during the night awaiting for transportation to psychiatric facility. Blood sugar this morning was 145. Patient states her sugar is not normally this low in the morning. Based on her sliding scale she received 6 units of insulin subQ. Date Rich Linn MD cc: Aj Hope MD * Addendum - ER Visit Summary Date of Service: 12/10/18 Chief Complaint: Suicidal thoughts History of Present Illness: The patient is a 33 F who has a history of bipolar disorder presents to the emergency department with increasing depression and suicidal thoughts. The patient has actually been very well maintained with her outpatient regimen. She is up and hospitalized in almost 9 years. She was on chronic pain medication until 2 years ago. She states that she has been using alcohol and occasional marijuana to deal with her pain. She is very concerned because she states that she has not been hospitalized in over 9 years, with her increasing depression she feels like she is a risk to herself. She has had multiple prior attempts. Physical Examination: Vital signs reviewed General: Well-nourished, well-developed Head: Normocephalic, atraumatic Eyes: Pupils equal and reactive, extraocular muscles intact Neck, supple, no lymphadenopathy Heart: Regular rate and rhythm Respiratory: No distress, clear bilaterally Abdomen: Soft, nontender, nondistended, no peritoneal signs Back: Nontender Extremities: Nontender, no edema, no cords Skin: Normal color no rash Neuro: Alert and oriented, no focal or lateralizing deficits Test Results: [] Emergency Department Course and Treatment: The patient presents with increasing depression and suicidal thoughts. IV was established. She was given oral Ativan with improvement of her symptoms. Labs relatively unremarkable. Her tox is positive for THC which the patient was upfront about. The patient was divided by crisis. It was thought that she would best be served with inpatient psychiatric care. The patient will be transferred. Treatment Plan: [] Disposition: Transfer Impression: 1. Suicidal ideation This note was generated with [employer] software. It may contain incorrect words, spelling, and punctuation that were not noted in review of the chart prior to signing ED Disposition - Plan for ED Patient: Chief Complaint: Suicidal Referrals: Aj Hope MD [Primary Care Provider] - What to do if you have Problems For any increased pain, shortness of breath, bleeding, nausea or vomiting, chest pain, or any unexpected problems, contact your Primary Care Provider. Call [facility] ([phone]) or report to the closest Emergency Room. Call 911 if necessary. 12/10/18 2210 <Electronically signed by Dusty Alarcon MD> Date Dusty Alarcon MD Cosigner Signature (If Indicated): Date CC: Aj Hope MD BEDSIDE GLUCOSE Collected: 12/11/2018 Status: F Source: [place] 11:09 AM [facility] REPOSITORY TYPE CODE TESTS RESULT OUT OF REFERENCE UNITS RANGE LAB L501.080 70-110 mg/dL High BEDSIDE GLU 141 Result Comment: MANAGEMENT OF PATIENT CARE PER NURSING PROTOCOL Performed By: #### L501.080 #### [facility] Laboratory Point of Care [address] [place], [place] [address] BEDSIDE GLUCOSE Collected: 12/11/2018 Status: F Source: [place] 7:06 AM [facility] REPOSITORY TYPE CODE TESTS RESULT OUT OF REFERENCE UNITS RANGE LAB L501.080 70-110 mg/dL High BEDSIDE GLU 145 Result Comment: MANAGEMENT OF PATIENT CARE PER NURSING PROTOCOL Performed By: #### L501.080 #### [place] [facility] Laboratory Point of Care [address] [place] [address] BEDSIDE GLUCOSE Collected: 12/11/2018 Status: F Source: [place] 1:07 AM [facility] REPOSITORY TYPE CODE TESTS RESULT OUT OF RANGE REFERENCE UNITS LAB L501.080 70-110 mg/dL Normal BEDSIDE GLU 92 Result Comment: MANAGEMENT OF PATIENT CARE PER NURSING PROTOCOL Performed By: #### L501.080 #### [facility] Laboratory Point of Care [address] [place] [address] URINE DRUG SCREEN Collected: 12/10/2018 Status: F Source: [place] (VISTA) 4:32 PM [facility] REPOSITORY TYPE CODE TESTS RESULT OUT OF RANGE REFERENCE UNITS LAB L505.0075 TO BE Normal CONFIRMED Result Comment: CONFIRMATORY TESTING FOR ALL POSITIVE URINE DRUG SCREEN RESULTS WILL ONLY BE SENT OUT UPON PHYSICIAN ORDER. VISTA Urine Drug Screen methods provide only preliminary analytical test results. A more specific alternate chemical method must be used in order to obtain a confirmed analytical result. Gas chromatography/mass spectrometery (GC/MS) is the preferred confirmatory method. Clinical consideration and professional judgement should be applied to any drug of abuse test result, particularly when preliminary positive results are used. URINE TCA TESTING MUST BE ORDERED SEPARATELY. USE TEST MNEMONIC: [facility] LAB L505.5005 VISTA UDS PH 7 Normal LAB L505.5015 <1000 ng/mL AMPHETAMINES Normal NEGATIVE LAB L505.5025 < 200 ng/mL BARBITIURATES Normal NEGATIVE LAB L505.5035 < 200 ng/mL BENZODIAZIPINE Normal NEGATIVE LAB L505.5045 < 300 ng/mL COCAINE Normal NEGATIVE LAB L505.5055 < 500 ng/mL ECSTACY Normal NEGATIVE LAB L505.5065 < 300 ng/mL METHADONE Normal NEGATIVE LAB L505.5075 < 300 ng/mL OPIATES Normal NEGATIVE LAB L505.5085 < 25 ng/mL PCP Normal NEGATIVE LAB L505.5095 < 50 High ng/mL THC POSITIVE Performed By: #### L505.5000 #### [place] [facility] [address] [place], [place], [address] CBC W/DIFF, AUTOMATED Collected: 12/10/2018 Status: F Source: [place] 4:32 PM [facility] REPOSITORY TYPE CODE TESTS RESULT OUT OF RANGE REFERENCE UNITS LAB L100.1000 4.4-11.0 K/mm3 High WBC 13.7 LAB L100.1200 4.2-5.4 M/mm3 Normal RBC 4.29 LAB L100.1300 12.0-15.0 g/dl Normal HGB 13.4 LAB L100.1400 37-47 % Normal HCT 42.6 LAB L100.1500 81-99 fL High MCV 99.3 LAB L100.1600 27.0-32.0 pg Normal MCH 31.2 LAB L100.1700 32-36 g/gl Low MCHC 31.5 LAB L100.1810 11.6-14.6 % High RDW CV 15.6 LAB L100.1820 35.1-43.9 fl High RDW SD 56.8 LAB L100.1900 150-450 K/mm3 Normal PLT 360 LAB L100.2000 6.2-12.0 fl Normal MPV 8.9 LAB L100.2100 47-70 % Normal NEUT% 56.3 LAB L100.2200 19-41 % Normal LY% 34.8 LAB L100.2300 0-10 % Normal MONO% 4.7 LAB L100.2400 0-5 % Normal EO% 2.0 LAB L100.2500 0-1 % Normal BASO% 0.4 LAB L100.2550 0.0-0.9 % High IM GRAN % 1.800 Result Comment: IG% - Immature Granulocytes (promyelocytes, myelocytes and metamyelocytes) > 1% indicates that a LEFT SHIFT is Present. LAB L100.2620 2.0-7.7 X10 3/uL Normal Absolute Neut 7.7 LAB L100.2720 0.83-4.51 X10 3/ul High Absolute Lymph 4.77 Performed By: #### L100.0100 #### [facility] [address] [place], [place], [address] BASIC METABOLIC Collected: 12/10/2018 Status: F Source: [place] PROFILE (BMP) 4:32 PM [facility] REPOSITORY TYPE CODE TESTS RESULT OUT OF RANGE REFERENCE UNITS LAB L501.0100 74-106 mg/dL Low GLU 69 Result Comment: Please note revised GLUCOSE reference range effective 2017. LAB L501.1000 7-18 mg/dL Normal BUN 10 LAB L501.1100 0.55-1.02 mg/dL Normal CREAT,SERUM 0.94 Result Comment: The validity of the calculated GFR AND GFRAA in patients over 70 years has not been determined. Clinical correlation is essential. LAB L501.1110 >60 mL/min Normal EST GFR 72 Result Comment: Non- GFR Calc LAB L501.1115 >60 mL/min Normal EST GFR - AA 88 Result Comment: GFR Calc LAB L501.1255 ml/min Normal Estimated CRCL 75.88 LAB L501.1300 10-20 RATIO Normal BUN/CRE 10.6 LAB L501.2200 8.5-10 mg/dL Normal .1 CA 9.3 LAB L501.5300 136-14 mmol/L Normal 5 NA 138 LAB L501.5600 3.5-5. mmol/L Normal 1 K 3.7 LAB L501.5900 98-107 mmol/L Normal CL 106 LAB L501.6100 21.0-3 mmol/L Normal 2.0 CO2 24.0 LAB L501.6200 5-15 Normal GAP 8 Performed By: #### L500.2500 #### [facility] [address] [place], [address] ,SERUM,HCG QUALI. Collected: Status: F Source: [place] 12/10/2018 4:32 PM [facility] REPOSITORY TYPE CODE TESTS RESULT OUT OF REFERENCE UNITS RANGE LAB L700.6700 =>Qualitative mIU/mL Normal HCG Qual < 1 triggr LAB L700.7000 0-9 Nonpreg Negative Normal HCGSQUAL NEGATIVE Performed By: #### L700.6800 #### [facility] [address] [place], [place], [id number] LITHIUM Collected: 12/10/2018 Status: F Source: [place] 4:32 PM [facility] REPOSITORY TYPE CODE TESTS RESULT OUT OF RANGE REFERENCE UNITS LAB L501.9060 0.60-1.20 mmol/L Normal LI 1.00 Performed By: #### L501.9060, L501.9100 #### [facility] [address] [place], [address] ALCOHOL, BLOOD Collected: 12/10/2018 Status: F Source: [place] (MEDICAL)-SERUM 4:32 PM [facility] REPOSITORY TYPE CODE TESTS RESULT OUT OF RANGE REFERENCE UNITS LAB L501.9100 mg/dL Normal SERUM < 3.0 ETOH Result Comment: The serum:whole blood ethanol ratio is approximately 1.14 and varies slightly with hematocrit. Medical Alcohol reference interval and critical value in non-tolerant individuals; 50 - 100 Impairment 100 Intoxication 100 - 250 Severe Poisoning 250 - 400 Deep/possible fatal coma Performed By: #### L501.9060, L501.9100 #### [facility] [address] [place], [address] EMERGENCY DEPARTMENT Observed: 11/27/2018 Status: F Source: [place] SUMMARY 5:07 PM [facility] REPOSITORY [facility] Medical Records Department [address] [place] [address] Emergency Department Summary 11/27/18 1637 MR#: [id number] Acct: [id number] Name: ROGER JIMENEZ Rep #: [id number] : 1985 33 From: Temo Stewart MD PCP: Aj Hope MD Status: DEP ER - ER Visit Summary Date of Service: 11/27/18 Chief Complaint: Hard to breathe History of Present Illness: The patient is a 33 F with shortness of breath increasing gradually over the past week. Patient has wheezing and coughing as well. Chills but no fevers. History of asthma, diabetes, and bipolar disorder. She is a smoker. Physical Examination: Afebrile and vital signs unremarkable. 100% on room air. Heart regular rate and rhythm. Lungs show expiratory wheeze in all atwood. Patient is sitting comfortably and breathing comfortably. Skin appears normal. Test Results: Chest x-ray was normal. Emergency Department Course and Treatment: Patient treated with steroids and DuoNeb. She had improvement of her symptoms. Patient was prescribed azithromycin, Tessalon, prednisone. Patient sugars have been under control, and she will watch him closely. She has breathing treatments at home. Follow-up with her doctor. Return for any new or worsening issues. Treatment Plan: As above Disposition: Discharge Impression: 1. Bronchitis This note was generated with [employer] dictation software. It may contain incorrect words, spelling, and punctuation that were not noted in review of the chart prior to signing ED Disposition - Plan for ED Patient: Chief Complaint: Cough Instructions: ED Bronchitis Asthmatic Prescriptions: Azithromycin [Zithromax] 250 mg PO DAILY #4 tab Benzonatate [Tessalon Perle] 200 mg PO TID PRN PRN #20 cap PRN Reason: Cough Prednisone 40 mg PO UD 4 Days #16 tab Referrals: Aj Hope MD [Primary Care Provider] - What to do if you have Problems For any increased pain, shortness of breath, bleeding, nausea or vomiting, chest pain, or any unexpected problems, contact your Primary Care Provider. Call [facility] [employer] [facility] ([phone]) or report to the closest Emergency Room. Call 911 if necessary. 11/27/18 1707 <Electronically signed by Temo Stewart MD> Date Temo Stewart MD Cosigner Signature (If Indicated): Date CC: jA Hope MD DISCHARGE INSTRUCTION Observed: 11/27/2018 Status: F Source: [place] 5:07 PM [facility] REPOSITORY [facility] Medical Records Department [facility] [place] [address] Discharge Instruction 11/27/18 1638 MR#: [id number] Acct: [id number] Name: ROGER JIMENEZ Rep #: [id number] : 1985 33 From: Temo Stewart MD PCP: Aj Hope MD Status: DEP ER ED Disposition - Plan for ED Patient: Chief Complaint: Cough Instructions: ED Bronchitis Asthmatic Prescriptions: Azithromycin [Zithromax] 250 mg PO DAILY #4 tab Benzonatate [Tessalon Perle] 200 mg PO TID PRN PRN #20 cap PRN Reason: Cough Prednisone 40 mg PO UD 4 Days #16 tab Referrals: Aj Hope MD [Primary Care Provider] - What to do if you have Problems For any increased pain, shortness of breath, bleeding, nausea or vomiting, chest pain, or any unexpected problems, contact your Primary Care Provider. Call [facility] ([phone]) or report to the closest Emergency Room. Call 911 if necessary. 11/27/18 1707 <Electronically signed by Temo Stewart MD> Date Temo Stewart MD Cosigner Signature (If Indicated): Date CC: Aj Hope MD BEDSIDE GLUCOSE Collected: 11/27/2018 Status: F Source: [place] 3:05 PM [facility] REPOSITORY TYPE CODE TESTS RESULT OUT OF RANGE REFERENCE UNITS LAB L501.080 70-110 mg/dL Normal BEDSIDE GLU 84 Result Comment: MANAGEMENT OF PATIENT CARE PER NURSING PROTOCOL Performed By: #### L501.080 #### [facility] Point of Care [address] [place] [address] CHEST PA AND LATERAL Observed: 11/27/2018 Status: F Source: [place] 2:08 PM [facility] REPOSITORY [facility] Imaging Services [address] [place] [address] Chest PA and Lateral MR#: [id number] Acct: [id number] Name: ROGER JIMENEZ Rep #: [id number] : 1985 F 33 From: Solis Martinez MD PCP: Aj Hope MD Status: REG ER Study: Chest PA and Lateral Date of Exam: 11/27/18 Exam# [id number] Ordering Dr: Temo Stewart MD STUDY: X-RAY CHEST REASON FOR EXAM: Female, 33 years old. Cough. Shortness of breath. TECHNIQUE: PA and lateral views of the chest. COMPARISON: Comparison is made with prior study dated May 23, 2018. FINDINGS: The lungs are clear and expanded. There is no demonstrated pleural abnormality. Normal size heart. Normal mediastinum and true. Normal visualized pulmonary arteries. Normal visualized aortic arch and descending thoracic aorta. Normal visualized thoracic spine. Normal visualized ribs, clavicles, and shoulders. There is no demonstrated abnormality of the visualized soft tissue structures of the upper abdomen. RAD/Chest PA and Lateral IMPRESSION: Normal x-ray examination of the chest. Electronically Signed: Solis Martinez MD at 16:02 EST Tel [phone], Service support , CC: Temo Stewart MD; Aj Hope MD Swimming Pool Installer: Signed XR CHEST 2V FRONTAL/LAT Observed: 11/27/2018 Status: F Source: [place] 12:02 PM [facility] REPOSITORY * * *Final Report* * * DATE OF EXAM: Nov 27 2018 12:02PM WOX [id number] - XR CHEST 2V FRONTAL/LAT / PROCEDURE REASON: Cough * * * * Physician Interpretation * * * * EXAMINATION: CHEST RADIOGRAPH (2 VIEW FRONTAL and LATERAL) CLINICAL HISTORY: Cough MQ: [id number] Comparison: 10/05/2012 RESULT: Lines, tubes, and devices: None. Lungs and pleura: No consolidation. No lung mass. No pleural effusion. Cardiomediastinal silhouette: Normal cardiomediastinal silhouette. Other: . IMPRESSION: No acute radiographic abnormality. Swimming Pool Installer: BERNARDO Transcribe Date/Time: Nov 27 2018 12:41P Dictated by : ARIAS HUYNH MD This examination was interpreted and the report reviewed and electronically signed by: ARIAS HUYNH MD on Nov 27 2018 12:41PM EST [id number] Observed: 11/27/2018 Status: COMPLETED Source: [place] 11:46 AM [facility] REPOSITORY HNO ID: [id number] Author: Lucero Reed (Rt) Yovanny Baptiste Service: (none) Author Type: Tool Design Checker Type: Progress Notes Filed: 11/27/2018 12:00 PM Note Text: Radiology Service Progress Note PATIENT NAME: Roger Jimenez DATE OF SERVICE: November 27, 2018 TIME: 11:46 AM PATIENT IDENTITY VERIFICATION COMPLETED USING TWO (2) METHODS: Patient confirmed name verbally and Date of . PATIENT GENDER DATA: Female. status: : No status: NO. PATIENT RELEVANT IMPLANT DATA REVIEWED: Not Applicable RADIOLOGY DEPARTMENT: General X-ray: Exam(s) Completed: Chest X-Ray PERIPHERAL IV DATA: Not applicable SIGNED BY: RT Margi November 27, 2018 11:46 AM PROGRESS Observed: 11/27/2018 Status: COMPLETED Source: [place] 11:37 AM [facility] REPOSITORY HNO ID: [id number] Author: Arnaldo Harkins Service: (none) Author Type: Physician Type: Progress Notes Filed: 11/27/2018 12:38 PM Note Text: Patient presents with: Sinus Infection,frequent/recurring Post-nasal Drip Cough Sore Throat Fatigue HPI: Feeling sick for over 1 week. Treated here for bronchitis 4 days ago with prednisone. She returns for worsening cough. Positive symptoms: Cough, Sore throat, Post nasal drainage, fatigue, some Nasal Congestion/Rhinorrhea, Chills, Negative symptoms: Shortness of breath, Sinus pressure, Fever, OTC: Mucinex, inhaler. Finished prednisone. Sugars ran a little higher, but not bad with prednisone. PAST MEDICAL HISTORY Diagnosis Date - Back pain DDD, will be seeing Dr. Guzmán - Bipolar disorder, unspecified (HCC) [facility] 20 [facility] - Constipation - Diabetes mellitus type II 2010 - Hydradenitis - Hyperlipidemia 2010 - Left breast abscess 10/11/2014 - Overweight(278.02) childhood + FH - Postinflammatory skin changes 12/04/2012 - Scars 12/04/2012 - Spinal stenosis - Tobacco use disorder age 12 on/off since; longest cessation (as of 04/27) 1 year - Unspecified asthma(493.90) chencho high exercise-induced MEDICATIONS: Current Outpatient Prescriptions: albuterol HFA (PROVENTIL HFA, VENTOLIN HFA) 90 mcg/actuation inhaler Inhale 2 Puffs as instructed every 4 hours as needed for Wheezing/Shortness of Breath. guaiFENesin (MUCINEX) 600 mg 12 hr tablet Take 1 tablet by mouth twice daily for 10 days. meloxicam (MOBIC) 7.5 mg tablet TAKE 1 TABLET DAILY metFORMIN (GLUCOPHAGE) 1,000 mg tablet TAKE 1 TABLET BY MOUTH TWICE DAILY. tiZANidine (ZANAFLEX) 4 mg tablet TAKE 1 TABLET BY MOUTH EVERY SIX HOURS NEEDED AMITIZA 24 mcg capsule TAKE 1 CAPSULE BY MOUTH TWICE DAILY WITH MEALS. atorvastatin (LIPITOR) 20 mg tablet TAKE 1 TABLET BY MOUTH AT BEDTIME FOR CHOLESTEROL glipiZIDE (GLUCOTROL) 10 mg tablet TAKE 1 TABLET EVERY MORNING AND 1/2 TABLET EVERY EVENING gabapentin (NEURONTIN) 300 mg capsule TAKE 1 CAPSULE FOUR TIMES A DAY omeprazole (PRILOSEC) 20 mg capsule TAKE 1 CAPSULE BY MOUTH DAILY BEFORE BREAKFAST (1/2 HR. BEFORE MEAL) insulin aspart U-100 (NOVOLOG FLEXPEN U-100 INSULIN) 100 unit/mL inpn Inject 4 Units subcutaneously before meals and at bedtime. 4 Units with meals In addition to sliding scale: <150 0 [id number] 2 [id number] 4 [id number] 6 -[phone] 8 [id number] 10 units> 400 notify PCP insulin glargine (LANTUS SOLOSTAR U-100 INSULIN) 100 unit/mL (3 mL) inpn Inject 10 Units subcutaneously daily at bedtime. spironolactone (ALDACTONE) 100 mg tablet TAKE 1 TABLET BY MOUTH DAILY AMITIZA 24 mcg capsule TAKE 1 CAPSULE BY MOUTH TWICE DAILY WITH MEALS. blood sugar diagnostic (TRUE METRIX GLUCOSE TEST STRIP) test strip Use as instructed, Testing 4 times a day. E11.9, no insulin Insulin [place], Disposable, (RAYNE PEN NEEDLE) 32 gauge x 5/32 ndle Use one needle for each dose. 4/day. CRYSELLE 0.3-30 mg-mcg per tablet TAKE 1 TABLET DAILY *TAKE ACTIVE PILLS FOR 12 WEEKS THEN TAKE [place] Blood-Glucose Meter (TRUE METRIX GLUCOSE METER) mis 1 Device three times daily as needed (Test as instructed, Diagnosis E11.9). blood sugar diagnostic (TRUE METRIX GLUCOSE TEST STRIP) test strip Use as instructed, E11.9, testing 2 to 3 times a day, no insulin Lancets lancets E11.9, testing 2 to 3 times a day, no insulin (may use True Metrix brand if available) lithium carbonate (ESKALITH) 300 mg capsule Take 300 mg by mouth twice daily with meals. blood sugar diagnostic (TRUETEST TEST STRIPS) test strip E11.9, testing 2-3 times a day, no insulin usage mometasone (ASMANEX TWISTHALER) 110 mcg (30 doses) twisthaler Inhale 1 Puff as instructed three times daily. DULoxetine (CYMBALTA) 30 mg capsule Take 1 capsule by mouth once daily. busPIRone 10 mg tablet Take 2 tablets by mouth three times daily. cloNIDine 0.1 mg ORAL tablet Take 0.1 mg by mouth once daily. duloxetine (CYMBALTA) 60 mg ORAL capsule Take 1 capsule by mouth once daily. quetiapine XR 400 mg ORAL 24 hr tablet Take 800 mg by mouth daily at bedtime. Blood-Glucose Meter (ACCU-CHEK SCI Solution CARE) Misc monitoring kit 1 Each as needed. No current facility-administered medications for this visit. ALLERGIES: ALLERGIES Allergen Reactions - Adhesive Tape (Corinne* Rash VITALS: BP 102/60 Pulse 90 Temp 37.1 ?C (98.8 ?F) (Left Tympanic) Resp 16 Wt 98.9 kg (218 lb) SpO2 97% BMI 36.28 kg/m? PHYSICAL EXAM: GEN: mildly ill appearing HEENT: PERRL, EOMI, conjunctiva clear Ears: canals clear, TMs without erythema, bulge, or effusion Sinuses: non-tender frontal sinus, non-tender maxillary sinuses Throat: moist mucous membranes, mild erythema, no exudate Neck: supple, no thyromegaly, no lymphadenopathy HEART: regular rate and rhythm, no murmurs LUNGS: Bilateral wheezes or crackles, diminished breath sounds in the bases, no increased WOB at rest ASSESSMENT/PLAN: 1. Exacerbation of asthma, unspecified asthma severity, unspecified whether persistent - ICD9: 493.92, ICD10: J45.901 (primary diagnosis) 2. Cough - ICD9: 786.2, ICD10: R05 - XR CHEST 2V FRONTAL/LAT - no obvious pneumonia or significant change compared to 2012. - ALBUTEROL SULFATE 2.5 MG/3 ML (0.083 %) SOLUTION FOR NEBULIZATION - Patient had increased air flow and more prominent wheezes and crackles after nebulizer treatment. She had increased shortness of breath and felt chest tightness radiating to her back. It reminds her of the pain she had when hospitalized for pneumonia in the past. She agrees to proceed to the ER for further evaluation and treatment. Report called to [facility] ER. Arnaldo Harkins MD CNOV Observed: 11/27/2018 Status: COMPLETED Source: [place] 11:30 AM [facility] REPOSITORY Office Visit (WSTR) ROGER JIMENEZ ([id number]) 1985 F Date Time Provider Department 11/27/18 11:30 AM ARNALDO HARKINS [facility] During your visit today, we recorded the following information about you: Temperature Pulse Respiration Blood pressure 98.8 degrees 90/minute 16/minute 102/60 Weight 98.9 kg Arnaldo Harkins MD 11/27/2018 12:38 PM Signed Patient presents with: Sinus Infection,frequent/recurring Post-nasal Drip Cough Sore Throat Fatigue HPI: Feeling sick for over 1 week. Treated here for bronchitis 4 days ago with prednisone. She returns for worsening cough. Positive symptoms: Cough, Sore throat, Post nasal drainage, fatigue, some Nasal Congestion/Rhinorrhea, Chills, Negative symptoms: Shortness of breath, Sinus pressure, Fever, OTC: Mucinex, inhaler. Finished prednisone. Sugars ran a little higher, but not bad with prednisone. PAST MEDICAL HISTORY Diagnosis Date - Back pain DDD, will be seeing Dr. Guzmán - Bipolar disorder, unspecified (HCC) age 20 [facility] - Constipation - Diabetes mellitus type II 2010 - Hydradenitis - Hyperlipidemia 2010 - Left breast abscess 10/11/2014 - Overweight(278.02) childhood + FH - Postinflammatory skin changes 12/04/2012 - Scars 12/04/2012 - Spinal stenosis - Tobacco use disorder age 12 on/off since; longest cessation (as of 04/27) 1 year - Unspecified asthma(493.90) chencho high exercise-induced MEDICATIONS: Current Outpatient Prescriptions: albuterol HFA (PROVENTIL HFA, VENTOLIN HFA) 90 mcg/actuation inhaler Inhale 2 Puffs as instructed every 4 hours as needed for Wheezing/Shortness of Breath. guaiFENesin (MUCINEX) 600 mg 12 hr tablet Take 1 tablet by mouth twice daily for 10 days. meloxicam (MOBIC) 7.5 mg tablet TAKE 1 TABLET DAILY metFORMIN (GLUCOPHAGE) 1,000 mg tablet TAKE 1 TABLET BY MOUTH TWICE DAILY. tiZANidine (ZANAFLEX) 4 mg tablet TAKE 1 TABLET BY MOUTH EVERY SIX HOURS NEEDED AMITIZA 24 mcg capsule TAKE 1 CAPSULE BY MOUTH TWICE DAILY WITH MEALS. atorvastatin (LIPITOR) 20 mg tablet TAKE 1 TABLET BY MOUTH AT BEDTIME FOR CHOLESTEROL glipiZIDE (GLUCOTROL) 10 mg tablet TAKE 1 TABLET EVERY MORNING AND 1/2 TABLET EVERY EVENING gabapentin (NEURONTIN) 300 mg capsule TAKE 1 CAPSULE FOUR TIMES A DAY omeprazole (PRILOSEC) 20 mg capsule TAKE 1 CAPSULE BY MOUTH DAILY BEFORE BREAKFAST (1/2 HR. BEFORE MEAL) insulin aspart U-100 (NOVOLOG FLEXPEN U-100 INSULIN) 100 unit/mL inpn Inject 4 Units subcutaneously before meals and at bedtime. 4 Units with meals In addition to sliding scale: <150 0 [id number] 2 [id number]- 249 4 [id number] 6 [id number] 8 [id number] 10 units> 400 notify PCP insulin glargine (LANTUS SOLOSTAR U-100 INSULIN) 100 unit/mL (3 mL) inpn Inject 10 Units subcutaneously daily at bedtime. spironolactone (ALDACTONE) 100 mg tablet TAKE 1 TABLET BY MOUTH DAILY AMITIZA 24 mcg capsule TAKE 1 CAPSULE BY MOUTH TWICE DAILY WITH MEALS. blood sugar diagnostic (TRUE METRIX GLUCOSE TEST STRIP) test strip Use as instructed, Testing 4 times a day. E11.9, no insulin Insulin [place], Disposable, (RAYNE PEN NEEDLE) 32 gauge x 532 ndle Use one needle for each dose. 4/day. CRYSELLE 0.3-30 mg-mcg per tablet TAKE 1 TABLET DAILY *TAKE ACTIVE PILLS FOR 12 WEEKS THEN TAKE [place] Blood-Glucose Meter (TRUE METRIX GLUCOSE METER) misc 1 Device three times daily as needed (Test as instructed, Diagnosis E11.9). blood sugar diagnostic (TRUE METRIX GLUCOSE TEST STRIP) test strip Use as instructed, E11.9, testing 2 to 3 times a day, no insulin Lancets lancets E11.9, testing 2 to 3 times a day, no insulin (may use True Metrix brand if available) lithium carbonate (ESKALITH) 300 mg capsule Take 300 mg by mouth twice daily with meals. blood sugar diagnostic (TRUETEST TEST STRIPS) test strip E11.9, testing 2-3 times a day, no insulin usage mometasone (ASMANEX TWISTHALER) 110 mcg (30 doses) twisthaler Inhale 1 Puff as instructed three times daily. DULoxetine (CYMBALTA) 30 mg capsule Take 1 capsule by mouth once daily. busPIRone 10 mg tablet Take 2 tablets by mouth three times daily. cloNIDine 0.1 mg ORAL tablet Take 0.1 mg by mouth once daily. duloxetine (CYMBALTA) 60 mg ORAL capsule Take 1 capsule by mouth once daily. quetiapine XR 400 mg ORAL 24 hr tablet Take 800 mg by mouth daily at bedtime. Blood-Glucose Meter (ACCU-CHEK ACTIVE CARE) Misc monitoring kit 1 Each as needed. No current facility-administered medications for this visit. ALLERGIES: ALLERGIES Allergen Reactions - Adhesive Tape (Corinne* Rash VITALS: BP 102/60 Pulse 90 Temp 37.1 ?C (98.8 ?F) (Left Tympanic) Resp 16 Wt 98.9 kg (218 lb) SpO2 97% BMI 36.28 kg/m? PHYSICAL EXAM: GEN: mildly ill appearing HEENT: PERRL, EOMI, conjunctiva clear Ears: canals clear, TMs without erythema, bulge, or effusion Sinuses: non-tender frontal sinus, non-tender maxillary sinuses Throat: moist mucous membranes, mild erythema, no exudate Neck: supple, no thyromegaly, no lymphadenopathy HEART: regular rate and rhythm, no murmurs LUNGS: Bilateral wheezes or crackles, diminished breath sounds in the bases, no increased WOB at rest ASSESSMENT/PLAN: 1. Exacerbation of asthma, unspecified asthma severity, unspecified whether persistent - ICD9: 493.92, ICD10: J45.901 (primary diagnosis) 2. Cough - ICD9: 786.2, ICD10: R05 - XR CHEST 2V FRONTAL/LAT - no obvious pneumonia or significant change compared to 2012. - ALBUTEROL SULFATE 2.5 MG/3 ML (0.083 %) SOLUTION FOR NEBULIZATION - Patient had increased air flow and more prominent wheezes and crackles after nebulizer treatment. She had increased shortness of breath and felt chest tightness radiating to her back. It reminds her of the pain she had when hospitalized for pneumonia in the past. She agrees to proceed to the ER for further evaluation and treatment. Report called to [facility] ER. MD Shelbi Pederson Ma 11/27/2018 12:23 PM Signed 2.5 solution aerosol treatment given per doctor's orders. Prior to treatment O2 Sat is 97%. Treatment completed. O2 sat is 99%. Tolerated well. Referring Provider: SELF [200] Allergies As of Date: 11/27/2018 Noted Allergy Reaction ADHESIVE TAPE (ROSINS) 02/03/2010 2 - Rash Date Reviewed: 11/27/2018 Reviewed by: Shelbi John Ma - Fully Assessed Reason for Visit: Sinus Infection,frequent/recurring [1167] Post-nasal Drip [1168] Cough [28] Sore Throat [200] Fatigue [46] Primary Visit Diagnosis:Exacerbation of asthma, unspecified asthma severity, unspecified whether persistent [J45.901] Other Visit Diagnosis:Cough [R05] Order(s):[] albuterol 2.5 mg /3 mL (0.083 %) 2.5 mg (PROVENTIL)Disp: Rfl: XR CHEST 2V FRONTAL/LAT [[id number]] Order #: [id number] FUTURE Prescriptions as of 11/27/2018 Sig: ALBUTEROL SULFATE HFA 90 MCG/* Inhale 2 Puffs as instructed * GUAIFENESIN ER 600 MG TABLET,* Take 1 tablet by mouth twice * MELOXICAM 7.5 MG TABLET TAKE 1 TABLET DAILY METFORMIN 1,000 MG TABLET TAKE 1 TABLET BY MOUTH TWICE * TIZANIDINE 4 MG TABLET TAKE 1 TABLET BY MOUTH EVERY * AMITIZA 24 MCG CAPSULE TAKE 1 CAPSULE BY MOUTH TWICE* ATORVASTATIN 20 MG TABLET TAKE 1 TABLET BY MOUTH AT BED* GLIPIZIDE 10 MG TABLET TAKE 1 TABLET EVERY MORNING A* GABAPENTIN 300 MG CAPSULE TAKE 1 CAPSULE FOUR TIMES A D* OMEPRAZOLE 20 MG CAPSULE,DIONISIO* TAKE 1 CAPSULE BY MOUTH DAILY* INSULIN ASPART U-100 100 UNI* Inject 4 Units subcutaneously* INSULIN GLARGINE (U-100) 100 * Inject 10 Units subcutaneousl* SPIRONOLACTONE 100 MG TABLET TAKE 1 TABLET BY MOUTH DAILY AMITIZA 24 MCG CAPSULE TAKE 1 CAPSULE BY MOUTH TWICE* BLOOD SUGAR DIAGNOSTIC STRIPS Use as instructed, Testing 4 * PEN NEEDLE, DIABETIC 32 GAUGE* Use one needle for each dose.* CRYSELLE (28) 0.3 MG-30 MCG T* TAKE 1 TABLET DAILY *TAKE AC* BLOOD-GLUCOSE METER 1 Device three times daily as* BLOOD SUGAR DIAGNOSTIC STRIPS Use as instructed, E11.9, jonh* LANCETS E11.9, testing 2 to 3 times a* LITHIUM CARBONATE 300 MG CAPS* Take 300 mg by mouth twice da* BLOOD SUGAR DIAGNOSTIC STRIPS E11.9, testing 2-3 times a da* MOMETASONE 110 MCG (30 DOSES)* Inhale 1 Puff as instructed t* DULOXETINE 30 MG CAPSULE,DIONISIO* Take 1 capsule by mouth once * BUSPIRONE 10 MG TABLET Take 2 tablets by mouth three* * CLONIDINE HCL 0.1 MG TABLET Take 0.1 mg by mouth once baljeet* * DULOXETINE 60 MG CAPSULE,DIONISIO* Take 1 capsule by mouth once * * QUETIAPINE ER 400 MG TABLET,E* Take 800 mg by mouth daily at* BLOOD-GLUCOSE METER KIT 1 Each as needed. Problem List As Of Date 11/27/2018 Noted Resolved Supervision of normal first [Z34.00] INVALID FOR*06/16/2012 Bipolar disorder (HCC) [F31.9] More... Asthma [J45.909] More... TOBACCO USE DISORDER [F17.200] More... Overweight [E66.3] More... SCIATICA [M54.30] INVALID FOR* FATTY LIVER [K76.89] INVALID FOR* More... Cellulitis and abscess of trunk [L03.319, L02.2*INVALID FOR*07/13/2013 Other acne [L70.8] INVALID FOR*03/11/2017 HIDRADENITIS/SUPPURATIVA [L73.2] INVALID FOR*07/13/2013 Scar condition and fibrosis of skin [L90.5] INVALID FOR*03/11/2017 Sebaceous cyst [L72.3] INVALID FOR*03/11/2017 NO SHOW [[id number]] INVALID FOR*03/28/2009 Cannabis dependence, continuous [F12.20] INVALID FOR*07/13/2013 More... Opioid abuse, episodic [F11.10] INVALID FOR* Class: Chronic More... Bipolar disorder (HCC) [F31.9] INVALID FOR*03/11/2017 Diabetes mellitus [E11.9] INVALID FOR* Constipation [K59.00] 03/11/2017 Hidradenitis suppurativa [L73.2] INVALID FOR* Cystic acne vulgaris [L70.0] INVALID FOR* Scars [L90.5] INVALID FOR*03/11/2017 Postinflammatory skin changes [R23.4] INVALID FOR*03/11/2017 Left breast abscess [N61.1] INVALID FOR*03/11/2017 Obesity, Class III, BMI 40-49.9 (morbid obesity*INVALID FOR* Visit Notes: >> Shelbi John Ma [facility] Nov 27, 2018 12:01 PM Status: Signed 2.5 solution aerosol treatment given per doctor's orders. Prior to treatment O2 Sat is 97%. Treatment completed. O2 sat is 99%. Tolerated well. Prescriptions ordered this encounter Disp Refills Start End ALBUTEROL SULFATE 2.5 MG/3 ML (0.083* 11/27/2018 11/27/2018 Route: INHALATION Encounter Status:Closed by ARNALDO HARKINS MD on 11/27/18 PROGRESS Observed: 11/23/2018 Status: COMPLETED Source: [place] 12:45 PM [facility] REPOSITORY O ID: [id number] Author: Maye (Tanya Diaz Service: (none) Author Type: Nurse Practitioner Type: Progress Notes Filed: 11/23/2018 1:14 PM Note Text: Subjective HPI Roger Jimenez is a 33 year old female who presents with sore throat, congestion and fatigue. She has had body aches, sneezing, runny nose. She has not taken any medication at home. She rates her sore throat pain a 7/10. Review of Systems Constitutional: Positive for malaise/fatigue. Negative for fever. HENT: Positive for congestion and sore throat. Respiratory: Positive for cough and sputum production. Negative for shortness of breath. Cardiovascular: Negative. Negative for chest pain. Gastrointestinal: Positive for nausea. Negative for diarrhea and vomiting. Musculoskeletal: Positive for myalgias. Neurological: Positive for headaches. BP 100/60 Pulse 104 Temp 36.2 ?C (97.2 ?F) (Left Tympanic) Resp 16 Wt 95.3 kg (210 lb) SpO2 99% BMI 34.95 kg/m? PAST MEDICAL HISTORY Diagnosis Date - Back pain DDD, will be seeing Dr. Guzmán - Bipolar disorder, unspecified (HCC) age 20 [facility] - Constipation - Diabetes mellitus type II 2010 - Hydradenitis - Hyperlipidemia 2010 - Left breast abscess 10/11/2014 - Overweight(278.02) childhood + FH - Postinflammatory skin changes 12/04/2012 - Scars 12/04/2012 - Spinal stenosis - Tobacco use disorder age 12 on/off since; longest cessation (as of 04/27) 1 year - Unspecified asthma(493.90) chencho high exercise-induced PAST SURGICAL HISTORY Procedure Laterality Date - ASPIRATION BREAST CYST 08/2014 right - ASPIRATION BREAST CYST 09/2014 left - DELIVERY ONLY 03/29/07 , low cervical - COLONOSCOP W/ OR W/O BRSH SPEC 10/18/12 Colonoscopy - EGD W/O OR W/BRUSH/WASH 10/18/12 EGD - FOOT SURGERY HX removal of cyst- right foot - ORAL SURGERY PROCEDURE [place] [facility] - PAST SURGICAL HISTORY OF age 17 CYST REMOVED UNDER LEFT ARM; [place] - PAST SURGICAL HISTORY OF Groin Surgery- hidra - PAST SURGICAL HISTORY OF neck surgery x 3 for hidradentitis - PAST SURGICAL HISTORY OF 02/03/2017 hidradentitis right under arm - REMOVAL OF TONSILS,12+ Y/O age 18 ALLERGIES Adhesive Tape (Rosins) MEDICATIONS meloxicam (MOBIC) 7.5 mg tablet TAKE 1 TABLET DAILY metFORMIN (GLUCOPHAGE) 1,000 mg tablet TAKE 1 TABLET BY MOUTH TWICE DAILY. tiZANidine (ZANAFLEX) 4 mg tablet TAKE 1 TABLET BY MOUTH EVERY SIX HOURS NEEDED AMITIZA 24 mcg capsule TAKE 1 CAPSULE BY MOUTH TWICE DAILY WITH MEALS. atorvastatin (LIPITOR) 20 mg tablet TAKE 1 TABLET BY MOUTH AT BEDTIME FOR CHOLESTEROL glipiZIDE (GLUCOTROL) 10 mg tablet TAKE 1 TABLET EVERY MORNING AND 1/2 TABLET EVERY EVENING gabapentin (NEURONTIN) 300 mg capsule TAKE 1 CAPSULE FOUR TIMES A DAY omeprazole (PRILOSEC) 20 mg capsule TAKE 1 CAPSULE BY MOUTH DAILY BEFORE BREAKFAST (1/2 HR. BEFORE MEAL) insulin aspart U-100 (NOVOLOG FLEXPEN U-100 INSULIN) 100 unit/mL inpn Inject 4 Units subcutaneously before meals and at bedtime. 4 Units with meals In addition to sliding scale: <150 0 [id number] 2 [id number] 4 [id number] 6 -481 8 -016 10 units> 400 notify PCP insulin glargine (LANTUS SOLOSTAR U-100 INSULIN) 100 unit/mL (3 mL) inpn Inject 10 Units subcutaneously daily at bedtime. spironolactone (ALDACTONE) 100 mg tablet TAKE 1 TABLET BY MOUTH DAILY albuterol HFA (PROVENTIL HFA, VENTOLIN HFA) 90 mcg/actuation inhaler Inhale 2 Puffs as instructed every 4 hours as needed. AMITIZA 24 mcg capsule TAKE 1 CAPSULE BY MOUTH TWICE DAILY WITH MEALS. blood sugar diagnostic (TRUE METRIX GLUCOSE TEST STRIP) test strip Use as instructed, Testing 4 times a day. E11.9, no insulin Insulin [place], Disposable, (RAYNE PEN NEEDLE) 32 gauge x 5/32 ndle Use one needle for each dose. 4/day. CRYSELLE 0.3-30 mg-mcg per tablet TAKE 1 TABLET DAILY *TAKE ACTIVE PILLS FOR 12 WEEKS THEN TAKE [place] Blood-Glucose Meter (TRUE METRIX GLUCOSE METER) misc 1 Device three times daily as needed (Test as instructed, Diagnosis E11.9). blood sugar diagnostic (TRUE METRIX GLUCOSE TEST STRIP) test strip Use as instructed, E11.9, testing 2 to 3 times a day, no insulin Lancets lancets E11.9, testing 2 to 3 times a day, no insulin (may use True Metrix brand if available) lithium carbonate (ESKALITH) 300 mg capsule Take 300 mg by mouth twice daily with meals. blood sugar diagnostic (TRUETEST TEST STRIPS) test strip E11.9, testing 2-3 times a day, no insulin usage mometasone (ASMANEX TWISTHALER) 110 mcg (30 doses) twisthaler Inhale 1 Puff as instructed three times daily. DULoxetine (CYMBALTA) 30 mg capsule Take 1 capsule by mouth once daily. albuterol HFA (PROAIR HFA) 90 mcg/actuation inhaler Inhale 2 Puffs as instructed every 4 hours as needed. busPIRone 10 mg tablet Take 2 tablets by mouth three times daily. cloNIDine 0.1 mg ORAL tablet Take 0.1 mg by mouth once daily. duloxetine (CYMBALTA) 60 mg ORAL capsule Take 1 capsule by mouth once daily. quetiapine XR 400 mg ORAL 24 hr tablet Take 800 mg by mouth daily at bedtime. Blood-Glucose Meter (ACCU-CHEK SCI Solution CARE) Misc monitoring kit 1 Each as needed. Lactobacillus acidophilus (PROBIOTIC) 10 billion cell cap Take 1 capsule by mouth once daily. benzonatate (TESSALON PERLE) 100 mg capsule Take 1 capsule by mouth three times daily as needed. cetirizine (ZYRTEC) 10 mg tablet Take 1 tablet by mouth once daily. fluticasone (FLONASE) 50 mcg/actuation nasal spray Use 1 [place] in each nostril twice daily. Rinse mouth after use. FAMILY HISTORY Problem Relation Age of Onset - Arthritis Mother - Hypertension Mother - Heart Mother - Coronary Artery Disease Mother - Allergies Father - Heart Father first [place] at 43 (was smoker at the time) - Hypertension Father - Lipids Father - Diabetes Father age 50's - Arthritis Maternal Grandmother - Diabetes Maternal Grandmother late in life, type 2 (morbidly obese) - COPD Maternal Grandfather - Emphysema Maternal Grandfather - Hearing Loss Maternal Grandfather - Colon Cancer Other none Social History Substance Use Topics - Smoking status: Current Every Day Smoker Packs/day: 0.75 Years: 8.00 Types: Cigarettes - Smokeless tobacco: Never Used - Alcohol use No Comment: not while ; at times problematic, before bipolar, age 11, and age [age]. None in past 4-5 yrs. Objective Physical Exam HENT: Right Ear: Tympanic membrane, external ear and ear canal normal. Left Ear: Tympanic membrane, external ear and ear canal normal. Nose: Rhinorrhea present. Mouth/Throat: Uvula is midline, oropharynx is clear and moist and mucous membranes are normal. No oropharyngeal exudate, posterior oropharyngeal edema or posterior oropharyngeal erythema. Neck: Neck supple. Cardiovascular: Normal rate and regular rhythm. Pulmonary/Chest: Effort normal. No respiratory distress. She has wheezes. She has no rales. Lymphadenopathy: She has no cervical adenopathy. Neurological: She is alert. Skin: Skin is warm and dry. Nursing note and vitals reviewed. ASSESSMENT/PLAN: 1. Wheezing - ICD9: 786.07, ICD10: R06.2 (primary diagnosis) - ALBUTEROL SULFATE 2.5 MG/3 ML (0.083 %) SOLUTION FOR NEBULIZATION-given in office with improvement in lung sounds 2. Bronchitis - ICD9: 490, ICD10: J40 - PREDNISONE 20 MG TABLET - ALBUTEROL SULFATE HFA 90 MCG/ACTUATION AEROSOL INHALER - INHALATIONAL SPACING DEVICE - GUAIFENESIN ER 600 MG TABLET, EXTENDED RELEASE 12 HR - Follow-up with your PCP in 3-5 days if symptoms have not improved or sooner if symptoms worsen - Discussed red flags and need for immediate medical evaluation if any occur. - Discussed supportive care treatment with fluids, rest and analgesia. - Discussed expected course of illness Maye Diaz APRN.CNP CNOV Observed: 11/23/2018 Status: COMPLETED Source: [place] 12:45 PM [facility] REPOSITORY Office Visit (WSTR) ROGER JIMENEZ ([id number]) 1985 F Date Time Provider Department 11/23/18 12:45 PM MAYE DIAZ [facility] During your visit today, we recorded the following information about you: Temperature Pulse Respiration Blood pressure 97.2 degrees 104/minute 16/minute 100/60 Weight 95.3 kg Maye Diaz APRN.CNP 11/23/2018 1:14 PM Signed Subjective HPI Roger Jimenez is a 33 year old female who presents with sore throat, congestion and fatigue. She has had body aches, sneezing, runny nose. She has not taken any medication at home. She rates her sore throat pain a 7/10. Review of Systems Constitutional: Positive for malaise/fatigue. Negative for fever. HENT: Positive for congestion and sore throat. Respiratory: Positive for cough and sputum production. Negative for shortness of breath. Cardiovascular: Negative. Negative for chest pain. Gastrointestinal: Positive for nausea. Negative for diarrhea and vomiting. Musculoskeletal: Positive for myalgias. Neurological: Positive for headaches. BP 100/60 Pulse 104 Temp 36.2 ?C (97.2 ?F) (Left Tympanic) Resp 16 Wt 95.3 kg (210 lb) SpO2 99% BMI 34.95 kg/m? PAST MEDICAL HISTORY Diagnosis Date - Back pain DDD, will be seeing Dr. Guzmán - Bipolar disorder, unspecified (HCC) age 20 [facility] - Constipation - Diabetes mellitus type II 2010 - Hydradenitis - Hyperlipidemia 2010 - Left breast abscess 10/11/2014 - Overweight(278.02) childhood + FH - Postinflammatory skin changes 12/04/2012 - Scars 12/04/2012 - Spinal stenosis - Tobacco use disorder age 12 on/off since; longest cessation (as of 04/27) 1 year - Unspecified asthma(493.90) chencho high exercise-induced PAST SURGICAL HISTORY Procedure Laterality Date - ASPIRATION BREAST CYST 08/2014 right - ASPIRATION BREAST CYST 09/2014 left - DELIVERY ONLY 03/29/07 , low cervical - COLONOSCOP W/ OR W/O BRSH SPEC 10/18/12 Colonoscopy - EGD W/O OR W/BRUSH/WASH 10/18/12 EGD - FOOT SURGERY HX removal of cyst- right foot - ORAL SURGERY PROCEDURE [place] [facility] - PAST SURGICAL HISTORY OF age 17 CYST REMOVED UNDER LEFT ARM; [place] - PAST SURGICAL HISTORY OF Groin Surgery- [place] - PAST SURGICAL HISTORY OF neck surgery x 3 for hidradentitis - PAST SURGICAL HISTORY OF 02/03/2017 hidradentitis right under arm - REMOVAL OF TONSILS,12+ Y/O age 18 ALLERGIES Adhesive Tape (Rosins) MEDICATIONS meloxicam (MOBIC) 7.5 mg tablet TAKE 1 TABLET DAILY metFORMIN (GLUCOPHAGE) 1,000 mg tablet TAKE 1 TABLET BY MOUTH TWICE DAILY. tiZANidine (ZANAFLEX) 4 mg tablet TAKE 1 TABLET BY MOUTH EVERY SIX HOURS NEEDED AMITIZA 24 mcg capsule TAKE 1 CAPSULE BY MOUTH TWICE DAILY WITH MEALS. atorvastatin (LIPITOR) 20 mg tablet TAKE 1 TABLET BY MOUTH AT BEDTIME FOR CHOLESTEROL glipiZIDE (GLUCOTROL) 10 mg tablet TAKE 1 TABLET EVERY MORNING AND 1/2 TABLET EVERY EVENING gabapentin (NEURONTIN) 300 mg capsule TAKE 1 CAPSULE FOUR TIMES A DAY omeprazole (PRILOSEC) 20 mg capsule TAKE 1 CAPSULE BY MOUTH DAILY BEFORE BREAKFAST (1/2 HR. BEFORE MEAL) insulin aspart U-100 (NOVOLOG FLEXPEN U-100 INSULIN) 100 unit/mL inpn Inject 4 Units subcutaneously before meals and at bedtime. 4 Units with meals In addition to sliding scale: <150 0 [id number] 2 poawi214- 249 4 [id number] 6 [id number] 8 [id number] 10 units> 400 notify PCP insulin glargine (LANTUS SOLOSTAR U-100 INSULIN) 100 unit/mL (3 mL) inpn Inject 10 Units subcutaneously daily at bedtime. spironolactone (ALDACTONE) 100 mg tablet TAKE 1 TABLET BY MOUTH DAILY albuterol HFA (PROVENTIL HFA, VENTOLIN HFA) 90 mcg/actuation inhaler Inhale 2 Puffs as instructed every 4 hours as needed. AMITIZA 24 mcg capsule TAKE 1 CAPSULE BY MOUTH TWICE DAILY WITH MEALS. blood sugar diagnostic (TRUE METRIX GLUCOSE TEST STRIP) test strip Use as instructed, Testing 4 times a day. E11.9, no insulin Insulin [place], Disposable, (RAYNE PEN NEEDLE) 32 gauge x 5/32 ndle Use one needle for each dose. 4/day. CRYSELLE 0.3-30 mg-mcg per tablet TAKE 1 TABLET DAILY *TAKE ACTIVE PILLS FOR 12 WEEKS THEN TAKE [place] Blood-Glucose Meter (TRUE METRIX GLUCOSE METER) misc 1 Device three times daily as needed (Test as instructed, Diagnosis E11.9). blood sugar diagnostic (TRUE METRIX GLUCOSE TEST STRIP) test strip Use as instructed, E11.9, testing 2 to 3 times a day, no insulin Lancets lancets E11.9, testing 2 to 3 times a day, no insulin (may use True Metrix brand if available) lithium carbonate (ESKALITH) 300 mg capsule Take 300 mg by mouth twice daily with meals. blood sugar diagnostic (TRUETEST TEST STRIPS) test strip E11.9, testing 2-3 times a day, no insulin usage mometasone (ASMANEX TWISTHALER) 110 mcg (30 doses) twisthaler Inhale 1 Puff as instructed three times daily. DULoxetine (CYMBALTA) 30 mg capsule Take 1 capsule by mouth once daily. albuterol HFA (PROAIR HFA) 90 mcg/actuation inhaler Inhale 2 Puffs as instructed every 4 hours as needed. busPIRone 10 mg tablet Take 2 tablets by mouth three times daily. cloNIDine 0.1 mg ORAL tablet Take 0.1 mg by mouth once daily. duloxetine (CYMBALTA) 60 mg ORAL capsule Take 1 capsule by mouth once daily. quetiapine XR 400 mg ORAL 24 hr tablet Take 800 mg by mouth daily at bedtime. Blood-Glucose Meter (ACCU-CHEK SCI Solution CARE) Misc monitoring kit 1 Each as needed. Lactobacillus acidophilus (PROBIOTIC) 10 billion cell cap Take 1 capsule by mouth once daily. benzonatate (TESSALON PERLE) 100 mg capsule Take 1 capsule by mouth three times daily as needed. cetirizine (ZYRTEC) 10 mg tablet Take 1 tablet by mouth once daily. fluticasone (FLONASE) 50 mcg/actuation nasal spray Use 1 [place] in each nostril twice daily. Rinse mouth after use. FAMILY HISTORY Problem Relation Age of Onset - Arthritis Mother - Hypertension Mother - Heart Mother - Coronary Artery Disease Mother - Allergies Father - Heart Father first [place] at 43 (was smoker at the time) - Hypertension Father - Lipids Father - Diabetes Father age 50's - Arthritis Maternal Grandmother - Diabetes Maternal Grandmother late in life, type 2 (morbidly obese) - COPD Maternal Grandfather - Emphysema Maternal Grandfather - Hearing Loss Maternal Grandfather - Colon Cancer Other none Social History Substance Use Topics - Smoking status: Current Every Day Smoker Packs/day: 0.75 Years: 8.00 Types: Cigarettes - Smokeless tobacco: Never Used - Alcohol use No Comment: not while ; at times problematic, before bipolar, age 11, and age [age]. None in past 4-5 yrs. Objective Physical Exam HENT: Right Ear: Tympanic membrane, external ear and ear canal normal. Left Ear: Tympanic membrane, external ear and ear canal normal. Nose: Rhinorrhea present. Mouth/Throat: Uvula is midline, oropharynx is clear and moist and mucous membranes are normal. No oropharyngeal exudate, posterior oropharyngeal edema or posterior oropharyngeal erythema. Neck: Neck supple. Cardiovascular: Normal rate and regular rhythm. Pulmonary/Chest: Effort normal. No respiratory distress. She has wheezes. She has no rales. Lymphadenopathy: She has no cervical adenopathy. Neurological: She is alert. Skin: Skin is warm and dry. Nursing note and vitals reviewed. ASSESSMENT/PLAN: 1. Wheezing - ICD9: 786.07, ICD10: R06.2 (primary diagnosis) - ALBUTEROL SULFATE 2.5 MG/3 ML (0.083 %) SOLUTION FOR NEBULIZATION- given in office with improvement in lung sounds 2. Bronchitis - ICD9: 490, ICD10: J40 - PREDNISONE 20 MG TABLET - ALBUTEROL SULFATE HFA 90 MCG/ACTUATION AEROSOL INHALER - INHALATIONAL SPACING DEVICE - GUAIFENESIN ER 600 MG TABLET, EXTENDED RELEASE 12 HR - Follow-up with your PCP in 3-5 days if symptoms have not improved or sooner if symptoms worsen - Discussed red flags and need for immediate medical evaluation if any occur. - Discussed supportive care treatment with fluids, rest and analgesia. - Discussed expected course of illness JB Francisco APRN.CNP 11/23/2018 1:11 PM Signed ASSESSMENT/PLAN: 1. Wheezing - ICD9: 786.07, ICD10: R06.2 (primary diagnosis) - ALBUTEROL SULFATE 2.5 MG/3 ML (0.083 %) SOLUTION FOR NEBULIZATION- given in office with improvement in lung sounds 2. Bronchitis - ICD9: 490, ICD10: J40 - PREDNISONE 20 MG TABLET - ALBUTEROL SULFATE HFA 90 MCG/ACTUATION AEROSOL INHALER - INHALATIONAL SPACING DEVICE - GUAIFENESIN ER 600 MG TABLET, EXTENDED RELEASE 12 HR - Follow-up with your PCP in 3-5 days if symptoms have not improved or sooner if symptoms worsen - Discussed red flags and need for immediate medical evaluation if any occur. - Discussed supportive care treatment with fluids, rest and analgesia. - Discussed expected course of illness Maye Diaz APRN.CNP ACUTE BRONCHITIS: You have acute bronchitis. This means the airway passages in your lungs are inflamed. Bronchitis may be caused by viruses or bacteria. Inhaling cigarette smoke will always make it worse. Exposure to irritating chemicals or second hand smoke as well as allergies can contribute to bronchitis. Repeat episodes of bronchitis may cause lifelong lung problems. Acute bronchitis is usually treated with rest, fluids, cough medicine, and possibly antibiotics or inhaled medicine to open up the small airways. It is very important that you avoid smoke and drink increased amounts of fluids. A cool air vaporizer can help thin bronchial secretions. This makes it easier to cough and clear your chest. If you are a cigarette smoker, consider using nicotine gum or skin patches to help you withdraw. Recovery from bronchitis is often slow, but you should start feeling better after 2-3 days of treatment. Please call your doctor or return here if you have any of the following symptoms: - Increased fever, chills, or chest pain. - Severe shortness of breath or bloody sputum. - Do not improve after 3 days of proper treatment. Shelbi John Ma 11/23/2018 1:14 PM Signed 2.5 solution aerosol treatment given per doctor's orders. Prior to treatment O2 Sat is 99%. Treatment completed. O2 sat is 99%. Tolerated well. Referring Provider: SELF [[id number]] Allergies As of Date: 11/23/2018 Noted Allergy Reaction ADHESIVE TAPE (ROSINS) 02/03/2010 2 - Rash Date Reviewed: 11/23/2018 Reviewed by: Maye ([facility]) Joe - Fully Assessed Reason for Visit: Fatigue [46] Nasal Congestion [235] Acute Visit [896] Cmt: friend dx with mono Primary Visit Diagnosis:Wheezing [R06.2] Other Visit Diagnosis:Bronchitis [J40] Order(s):[] albuterol 2.5 mg /3 mL (0.083 %) 2.5 mg (PROVENTIL)Disp: Rfl: predniSONE (DELTASONE) 20 mg tabletTake 2 tablets by mouth once daily for 3 days.Disp: 6 tabletRfl: 0 albuterol HFA (PROVENTIL HFA, VENTOLIN HFA) 90 mcg/actuation inhalerInhale 2 Puffs as instructed every 4 hours as needed for Wheezing/Shortness of Breath.Disp: 1 InhalerRfl: 0 Inhalational Spacing Device spcr1 Device one time only for 1 dose.Disp: 1 EachRfl: 0 guaiFENesin (MUCINEX) 600 mg 12 hr tabletTake 1 tablet by mouth twice daily for 10 days.Disp: 20 tabletRfl: 0 Prescriptions as of 11/23/2018 Sig: MELOXICAM 7.5 MG TABLET TAKE 1 TABLET DAILY METFORMIN 1,000 MG TABLET TAKE 1 TABLET BY MOUTH TWICE * TIZANIDINE 4 MG TABLET TAKE 1 TABLET BY MOUTH EVERY * AMITIZA 24 MCG CAPSULE TAKE 1 CAPSULE BY MOUTH TWICE* ATORVASTATIN 20 MG TABLET TAKE 1 TABLET BY MOUTH AT BED* GLIPIZIDE 10 MG TABLET TAKE 1 TABLET EVERY MORNING A* GABAPENTIN 300 MG CAPSULE TAKE 1 CAPSULE FOUR TIMES A D* OMEPRAZOLE 20 MG CAPSULE,DIONISIO* TAKE 1 CAPSULE BY MOUTH DAILY* INSULIN ASPART U-100 100 UNI* Inject 4 Units subcutaneously* INSULIN GLARGINE (U-100) 100 * Inject 10 Units subcutaneousl* SPIRONOLACTONE 100 MG TABLET TAKE 1 TABLET BY MOUTH DAILY AMITIZA 24 MCG CAPSULE TAKE 1 CAPSULE BY MOUTH TWICE* BLOOD SUGAR DIAGNOSTIC STRIPS Use as instructed, Testing 4 * PEN NEEDLE, DIABETIC 32 GAUGE* Use one needle for each dose.* CRYSELLE (28) 0.3 MG-30 MCG T* TAKE 1 TABLET DAILY *TAKE AC* BLOOD-GLUCOSE METER 1 Device three times daily as* BLOOD SUGAR DIAGNOSTIC STRIPS Use as instructed, E11.9, jonh* LANCETS E11.9, testing 2 to 3 times a* LITHIUM CARBONATE 300 MG CAPS* Take 300 mg by mouth twice da* BLOOD SUGAR DIAGNOSTIC STRIPS E11.9, testing 2-3 times a da* MOMETASONE 110 MCG (30 DOSES)* Inhale 1 Puff as instructed t* DULOXETINE 30 MG CAPSULE,DIONISIO* Take 1 capsule by mouth once * BUSPIRONE 10 MG TABLET Take 2 tablets by mouth three* * CLONIDINE HCL 0.1 MG TABLET Take 0.1 mg by mouth once baljeet* * DULOXETINE 60 MG CAPSULE,DIONISIO* Take 1 capsule by mouth once * * QUETIAPINE ER 400 MG TABLET,E* Take 800 mg by mouth daily at* BLOOD-GLUCOSE METER KIT 1 Each as needed. PREDNISONE 20 MG TABLET Take 2 tablets by mouth once * ALBUTEROL SULFATE HFA 90 MCG/* Inhale 2 Puffs as instructed * INHALATIONAL SPACING DEVICE 1 Device one time only for 1 * GUAIFENESIN ER 600 MG TABLET,* Take 1 tablet by mouth twice * Problem List As Of Date 11/23/2018 Noted Resolved Supervision of normal first [Z34.00] INVALID FOR*06/16/2012 Bipolar disorder (HCC) [F31.9] More... Asthma [J45.909] More... TOBACCO USE DISORDER [F17.200] More... Overweight [E66.3] More... SCIATICA [M54.30] INVALID FOR* FATTY LIVER [K76.89] INVALID FOR* More... Cellulitis and abscess of trunk [L03.319, L02.2*INVALID FOR*07/13/2013 Other acne [L70.8] INVALID FOR*03/11/2017 HIDRADENITIS/SUPPURATIVA [L73.2] INVALID FOR*07/13/2013 Scar condition and fibrosis of skin [L90.5] INVALID FOR*03/11/2017 Sebaceous cyst [L72.3] INVALID FOR*03/11/2017 NO SHOW [173736] INVALID FOR*03/28/2009 Cannabis dependence, continuous [F12.20] INVALID FOR*07/13/2013 More... Opioid abuse, episodic [F11.10] INVALID FOR* Class: Chronic More... Bipolar disorder (HCC) [F31.9] INVALID FOR*03/11/2017 Diabetes mellitus [E11.9] INVALID FOR* Constipation [K59.00] 03/11/2017 Hidradenitis suppurativa [L73.2] INVALID FOR* Cystic acne vulgaris [L70.0] INVALID FOR* Scars [L90.5] INVALID FOR*03/11/2017 Postinflammatory skin changes [R23.4] INVALID FOR*03/11/2017 Left breast abscess [N61.1] INVALID FOR*03/11/2017 Obesity, Class III, BMI 40-49.9 (morbid obesity*INVALID FOR* Other instructions from your clinician: ASSESSMENT/PLAN: 1. Wheezing - ICD9: 786.07, ICD10: R06.2 (primary diagnosis) - ALBUTEROL SULFATE 2.5 MG/3 ML (0.083 %) SOLUTION FOR NEBULIZATION-given in office with improvement in lung sounds 2. Bronchitis - ICD9: 490, ICD10: J40 - PREDNISONE 20 MG TABLET - ALBUTEROL SULFATE HFA 90 MCG/ACTUATION AEROSOL INHALER - INHALATIONAL SPACING DEVICE - GUAIFENESIN ER 600 MG TABLET, EXTENDED RELEASE 12 HR - Follow-up with your PCP in 3-5 days if symptoms have not improved or sooner if symptoms worsen - Discussed red flags and need for immediate medical evaluation if any occur. - Discussed supportive care treatment with fluids, rest and analgesia. - Discussed expected course of illness Maye Diaz APRN.JE ACUTE BRONCHITIS: You have acute bronchitis. This means the airway passages in your lungs are inflamed. Bronchitis may be caused by viruses or bacteria. Inhaling cigarette smoke will always make it worse. Exposure to irritating chemicals or second hand smoke as well as allergies can contribute to bronchitis. Repeat episodes of bronchitis may cause lifelong lung problems. Acute bronchitis is usually treated with rest, fluids, cough medicine, and possibly antibiotics or inhaled medicine to open up the small airways. It is very important that you avoid smoke and drink increased amounts of fluids. A cool air vaporizer can help thin bronchial secretions. This makes it easier to cough and clear your chest. If you are a cigarette smoker, consider using nicotine gum or skin patches to help you withdraw. Recovery from bronchitis is often slow, but you should start feeling better after 2-3 days of treatment. Please call your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 L02.511 7. Necrotizing soft tissue infection M79.89 8. Muscle spasms of neck M62.838 9. Smoker F17.200 Orders Referrals: PT Referral E11.9, F17.200, G89.29, L02.11, L02.811, L73.2, M54.2, M62.838, S01.90XD, S11. 90XD Coding Level of Care Code Global Post Op Diagnoses Unspecified open wound of unspecified part of neck, subsequent encounter S11.90XD Unspecified open wound of unspecified part of head, subsequent encounter S01.90XD Hidradenitis suppurativa L73.2 Cat bite W55.01XA Cat bite of right hand with infection S61.451A; L08.9; W55.01XA Abscess of dorsum of right hand L02.511 Necrotizing soft tissue infection M79.89 Muscle spasms of neck M62.838 Smoker F17.200 08/15/182116 <Electronically signed by Arias Boswell MD> Date Arias Boswell MD Cosigner Signature: Date (if applicable) CC: HEMOGLOBIN A1C Collected: 08/08/2018 Status: F Source: [place] 2:54 PM [facility] REPOSITORY TYPE CODE TESTS RESULT OUT OF RANGE REFERENCE UNITS LAB L501.9985 4.2-6.3 % High HGB A1C 6.9 Performed By: #### L501.9985 #### [facility] [address] [place], [address] PLASTIC SURGERY Observed: 07/19/2018 Status: F Source: [facility] VISIT REPORT 10:57 AM [facility] REPOSITORY [facility] [address] [place] [address] OFFICE VISIT Date of Service: 07/12/18 MR#: [id number] Acct: [id number] Name: ROGER JIMENEZ Rep #: [id number] : 1985 Provider: Arias Boswell MD Age/Sex: 32/F Location: [facility] Status: Signed Intake Vital Signs07/12/18 Respiratory Rate 18 Intake Visit Reasons: post op surgery 05/19/18, 07/01/18 Accompanied by: None Is patient in pain?: Yes (RIGHT HAND THROBBING,STABBING, SHOOTING PAIN) Pain scale (1-10): 7 Allergies lamotrigine [From Lamictal] Allergy (Mild, Verified 07/12/18 11:31) Rash adhesive tape Allergy (Verified 07/12/18 11:31) Rash Medications Clonidine HCl [Catapres] 0.1 mg PO DAILY PRN PRN 01/18/14 [History Confirmed 06/30/18] Duloxetine Hcl [Cymbalta] 60 mg PO DAILY 01/18/14 [History Confirmed 06/30/18] Metformin HCl [Glucophage] 1,000 mg PO BIDCM 01/18/14 [History Confirmed 06/30/18] Tizanidine HCl [Zanaflex] 4 mg PO 4X/DAY 01/18/14 [History Confirmed 06/30/18] glipiZIDE [Glucotrol] 15 mg PO DAILY@0730 01/18/14 [History Confirmed 06/30/18] Quetiapine Fumarate [Seroquel XR] 800 mg PO QHS 04/25/14 [History Confirmed 06/30/18] Meloxicam [Mobic] 7.5 mg PO DAILY 01/14/16 [History Confirmed 06/30/18] Spironolactone [Aldactone] 100 mg PO DAILY 01/14/16 [History Confirmed 06/30/18] Norgestrel-Ethinyl Estradiol [Cryselle-28 Tablet] 1 tab PO DAILY 01/20/16 [History Confirmed 06/30/18] Bluejacket Carbonate [Bluejacket Carbonate ER] 300 mg PO BID 05/10/16 [History Confirmed 06/30/18] gabapentin 300 mg capsule 300 mg PO 4X/DAY cap 12/01/17 [History Confirmed 06/30/18] Lubiprostone [Amitiza] 24 mcg PO BID 01/16/18 [History Confirmed 06/30/18] Omeprazole [Prilosec] 20 mg PO DAILY 01/16/18 [History Confirmed 06/30/18] insulin aspart U-100 100 unit/mL subcutaneous solution See Protocol SC TIDCM ml 02/14/18 [History Confirmed 06/30/18] insulin glargine (U-100) 100 unit/mL subcutaneous solution 10 unit SC QHS 02/14/18 [History Confirmed 06/30/18] HYDROmorphone tablet [Dilaudid] 2 - 4 mg PO 4X/DAY PRN PRN 7 Days #60 tab 05/21/18 [Rx Confirmed 06/30/18] proMETHazine tablet [Phenergan tablet] 25 mg PO 4X/DAY PRN PRN #30 tab 05/21/18 [Rx Confirmed 06/30/18] diazepam 5 mg tablet 5 mg PO 4X/DAY PRN #30 tab 05/31/18 [Rx Confirmed 06/30/18] Atorvastatin Calcium 20 mg PO QHS 06/21/18 [History Confirmed 06/30/18] promethazine 25 mg tablet 25 mg PO 4X/DAY PRN #30 tab 06/21/18 [Rx Confirmed 06/30/18] Albuterol Sulfate [Ventolin Hfa] 1 - 2 inhaler INHALATION 4X/DAY PRN PRN 06/30/18 [History Confirmed 06/30/18] Buspirone HCl 20 mg PO TID 06/30/18 [History Confirmed 06/30/18] Duloxetine Hcl [Cymbalta] 30 mg PO DAILY 06/30/18 [History Confirmed 06/30/18] cefuroxime axetil 500 mg tablet 500 mg PO BID 14 Days #28 tab 07/06/18 [Rx] hydromorphone 2 mg tablet 2 mg PO TID PRN #20 tab 07/12/18 [Rx Confirmed 07/12/18] hydromorphone 2 mg tablet 2 mg PO BID PRN #15 tab 07/18/18 [Rx] PFSH Medical History Cat scratch of left hand with infection (Acute) Cat scratch of right hand with infection (Acute) Cat scratch (Acute) Diabetes (Chronic) Hydradenitis (Chronic) Morbid obesity (Chronic) Bipolar affective (Chronic) Osteoarthritis (Chronic) Chronic back pain (Chronic) Diabetic leg ulcer (Chronic) Non-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 fat layer exposed (Chronic) Smoker (Chronic) Open wound of left axillary region (Acute) Skin graft failure (Chronic) Abscess of sternal region (Acute) Open wound of chest wall, complicated (Acute) H/O hidradenitis suppurativa (Chronic) Abscess of breast (Acute) Alcohol abuse (Acute) Anxiety and depression (Acute) Asthma (Acute) Back problem (Acute) Drug abuse (Acute) Frequent headaches (Acute) GERD (gastroesophageal reflux disease) (Acute) Hay fever (Acute) Hearing problem (Acute) Hidradenitis (Acute) High triglycerides (Acute) Hyperlipidemia (Acute) Kidney problem (Acute) Neuropathy (Acute) Non-healing surgical wound (Acute) Osteoarthritis (Acute) Partial thickness burn (Acute) Recurrent UTI (Acute) Sinus problem (Acute) Vision problem (Acute) HTN (hypertension) (Chronic) Surgical History History of incision and drainage (Chronic) History of section (Acute) History of tonsillectomy (Acute) Hidradenitis (Acute) [place] teeth removed (Acute) Family History Grandmother Thyroid disorder Father Diabetes Heart disease Hypertension High cholesterol Mother Heart disease Hypertension High cholesterol Social History household members: family, children number of children: 1 Smoking Status: Heavy Smoker (>10/day) second hand exposure: No alcohol intake: former substance use type: former substance user what type of physical activity do you participate in: other seatbelt use: always do you feel safe at home: Yes additional social history: SUN EXPOSURE: OCCASIONALLY HPI post op surgery 05/19/18, 07/01/18: Details: Postop visit from her recent surgery on 07/01/18 where she underwent surgical preparation dorsum right hand at first web space with incision and drainage and excisional debridement necrotizing cat scratch bite abscess (8.1 cm2). Postop visit from her surgery on 05/19/18 where she underwent surgical preparation posterior neck/occipital scalp with incision and drainage and excisional debridement recurrent hidradenitis abscess (31.5 cm2). Complains of neck stiffness and right hand pain. Neck incision is almost healed. There is a small remaining ulcer on the left side. Measures 1.5 x 0.5 cm. The ulcer is clean with good granulation tissue. Using a #3 curette, I sharply debrided the wound down into the subcutaneous tissue as an excisional debridement. Good bleeding seen and controlled with gentle pressure. She is starting neck PT today to increase range of motion. Dorsum right hand wound clean. Some granulation tissue seen. No further evidence of infection. Using a #3 curette, I sharply debrided the wound down into the subcutaneous tissue as an excisional debridement. Good bleeding seen and controlled with gentle pressure. Continue to use Silver dressing changes to be done daily. She has good range of motion of right hand. She can make a fist. Mild swelling is noted. Will order OT for right hand for range of motion exercises, strengthening, and edema management. Pathology was discussed with the patient. It showed acute and chronic inflammation and abscess. Microbiology showed Enterobacter cloacae and Klebsiella pneumoniae. She was initially started on Levaquin. However there is interaction with Tizanidine. So the Levaquin was stopped and she was started on Cefuroxime. She will continue Cefuroxime. Renewed her Dilaudid for pain (20 tabs). Followup in one week. Encouraged patient to stop smoking as it may have deleterious effects on wound healing. Assessment AND Plan Problems 1. Open wound involving head with neck, complicated S01.90XA; S11.90XA 2. Hydradenitis L73.2 3. Cat bite W55.01XA 4. Abscess of dorsum of right hand L02.511 5. Cat bite of right hand with infection S61.451A; L08.9; W55.01XA 6. Necrotizing soft tissue infection M79.89 7. Muscle spasms of neck M62.838 8. Smoker F17.200 Orders Referrals: Medications New: Coding Level of Care Code Global Post Op Diagnoses Open wound involving head with neck, complicated S01.90XA; S11.90XA Hydradenitis L73.2 Cat bite W55.01XA Abscess of dorsum of right hand L02.511 Cat bite of right hand with infection S61.451A; L08.9; W55.01XA Necrotizing soft tissue infection M79.89 Muscle spasms of neck M62.838 Smoker F17.200 07/19/18 1047 <Electronically signed by Arias Boswell MD> Date Arias Boswell MD 07/19/18 1057<Electronically signed by Sonali BADILLOC> Cosigner Signature: Date (if applicable) Sonali Castrejon CC: PROGRESS Observed: 07/18/2018 Status: COMPLETED Source: [place] 11:51 AM [facility] REPOSITORY HNO ID: [id number] Author: Mitzi (Casting Supervisor) Allen Service: (none) Author Type: Nurse Practitioner Type: Progress Notes Filed: 07/18/2018 12:16 PM Note Text: CC: Patient presents with: Recheck: [facility] follow up, cellulitis HPI Roger Jimenez is a 32 year old female who presents today for [facility] Admission follow up. Patient presented to the ER on 06/30/18 with complaints of an infected right hand secondary to a cat scratch. Patient reports having a fever of >101F prior to admission. Patient underwent IANDD to the dorsal aspect of the right hand on 07/01/18. Cultures returned showing Enterobacter and Klebsiella. Patient received Unasyn and Azithromycin during her admission. She was discharged home, 07/04/18, on Cipro x14 days and follow up with plastics, . Since returning home patient reports having antibiotics switched from Cipro to Ceftin on 07/06/18 d/t interaction with some of her other medications. Tolerating Ceftin fair, reports some upset stomach, nausea, emesis x1 this morning mostly bile. Denies any fevers, chills or numbness to the RUE. Notes continued pain and edema to RUE with limited ROM. She has a [facility] nurse coming to her home ever other day for dressing changes, next one scheduled tomorrow. Already followed up with x1 week ago where she had additional debridement of her wound, next follow up in 2 days. Notes she doesn't feel like she is healing as well or as quickly as she anticipated.Reports blood sugars running in the mid 200s regularly, fasting occasionally in the 190s. She reports taking her DM medications as prescribed, but could not recall sliding scale dosing then indicated she makes her own adjustments to insulin based on carbs and her readings. Patient does note she has brought her A1C down to 8 from 11. Her goal is get it below 8% so that she may proceed with elective skin graft surgery of her posterior neck. REVIEW OF SYSTEMS General: no fevers, no night sweats, no recurrent infections, no change in appetite, no change in energy and no significant changes in weight GI: See HPI Skin: Negative for lesions, rash, and itching, Positive surgical IANDD site to right dorsal hand Neurologic: No headache, weakness, numbness, neck stiffness, tremor, vertigo, dizziness, memory loss, syncope., See HPI PAST MEDICAL HISTORY Diagnosis Date - Back pain DDD, will be seeing Dr. Guzmán - Bipolar disorder, unspecified (HCC) age 20 see counseling center - Constipation - Diabetes mellitus type II 2010 - Hydradenitis - Hyperlipidemia 2010 - Left breast abscess 10/11/2014 - Overweight(278.02) childhood + FH - Postinflammatory skin changes 12/04/2012 - Scars 12/04/2012 - Spinal stenosis - Tobacco use disorder age 12 on/off since; longest cessation (as of 04/27) 1 year - Unspecified asthma(493.90) chencho high exercise-induced PAST SURGICAL HISTORY Procedure Laterality Date - ASPIRATION BREAST CYST 08/2014 right - ASPIRATION BREAST CYST 09/2014 left - DELIVERY ONLY 03/29/07 , low cervical - COLONOSCOP W/ OR W/O BRSH SPEC 10/18/12 Colonoscopy - EGD W/O OR W/BRUSH/WASH 10/18/12 EGD - FOOT SURGERY HX removal of cyst- right foot - ORAL SURGERY PROCEDURE [place] Teeth - PAST SURGICAL HISTORY OF age 17 CYST REMOVED UNDER LEFT ARM; [place] - PAST SURGICAL HISTORY OF Groin Surgery- hidra - PAST SURGICAL HISTORY OF neck surgery x 3 for hidradentitis - PAST SURGICAL HISTORY OF 02/03/2017 hidradentitis right under arm - REMOVAL OF TONSILS,12+ Y/O age 18 ALLERGIES Adhesive Tape (Rosins) MEDICATIONS Lactobacillus acidophilus (PROBIOTIC) 10 billion cell cap Take 1 capsule by mouth once daily. insulin aspart U-100 (NOVOLOG FLEXPEN U-100 INSULIN) 100 unit/mL inpn Inject 4 Units subcutaneously before meals and at bedtime. 4 Units with meals In addition to sliding scale: <150 0 -011 2 [id number] 4 [id number] 6 [id number] 8 [id number] 10 units> 400 notify PCP insulin glargine (LANTUS SOLOSTAR U-100 INSULIN) 100 unit/mL (3 mL) inpn Inject 10 Units subcutaneously daily at bedtime. metFORMIN (GLUCOPHAGE) 1,000 mg tablet TAKE 1 TABLET BY MOUTH TWICE DAILY. spironolactone (ALDACTONE) 100 mg tablet TAKE 1 TABLET BY MOUTH DAILY atorvastatin (LIPITOR) 20 mg tablet TAKE 1 TABLET BY MOUTH AT BEDTIME FOR CHOLESTEROL meloxicam (MOBIC) 7.5 mg tablet TAKE 1 TABLET DAILY tiZANidine (ZANAFLEX) 4 mg tablet TAKE 1 TABLET BY MOUTH EVERY SIX HOURS NEEDED gabapentin (NEURONTIN) 300 mg capsule TAKE 1 CAPSULE FOUR TIMES A DAY omeprazole (PRILOSEC) 20 mg capsule TAKE 1 CAPSULE BY MOUTH DAILY BEFORE BREAKFAST (1/2 HR. BEFORE MEAL) glipiZIDE (GLUCOTROL) 10 mg tablet TAKE 1 TABLET EVERY MORNING AND 1/2 TABLET EVERY EVENING benzonatate (TESSALON PERLE) 100 mg capsule Take 1 capsule by mouth three times daily as needed. albuterol HFA (PROVENTIL HFA, VENTOLIN HFA) 90 mcg/actuation inhaler Inhale 2 Puffs as instructed every 4 hours as needed. cetirizine (ZYRTEC) 10 mg tablet Take 1 tablet by mouth once daily. fluticasone (FLONASE) 50 mcg/actuation nasal spray Use 1 [place] in each nostril twice daily. Rinse mouth after use. AMITIZA 24 mcg capsule TAKE 1 CAPSULE BY MOUTH TWICE DAILY WITH MEALS. blood sugar diagnostic (TRUE METRIX GLUCOSE TEST STRIP) test strip Use as instructed, Testing 4 times a day. E11.9, no insulin Insulin [place], Disposable, (RAYNE PEN NEEDLE) 32 gauge x 5/32 ndle Use one needle for each dose. 4/day. CRYSELLE 0.3-30 mg-mcg per tablet TAKE 1 TABLET DAILY *TAKE ACTIVE PILLS FOR 12 WEEKS THEN TAKE [place] Blood-Glucose Meter (TRUE METRIX GLUCOSE METER) misc 1 Device three times daily as needed (Test as instructed, Diagnosis E11.9). blood sugar diagnostic (TRUE METRIX GLUCOSE TEST STRIP) test strip Use as instructed, E11.9, testing 2 to 3 times a day, no insulin Lancets lancets E11.9, testing 2 to 3 times a day, no insulin (may use True Metrix brand if available) lithium carbonate (ESKALITH) 300 mg capsule Take 300 mg by mouth twice daily with meals. blood sugar diagnostic (TRUETEST TEST STRIPS) test strip E11.9, testing 2-3 times a day, no insulin usage mometasone (ASMANEX TWISTHALER) 110 mcg (30 doses) twisthaler Inhale 1 Puff as instructed three times daily. DULoxetine (CYMBALTA) 30 mg capsule Take 1 capsule by mouth once daily. albuterol HFA (PROAIR HFA) 90 mcg/actuation inhaler Inhale 2 Puffs as instructed every 4 hours as needed. busPIRone 10 mg tablet Take 2 tablets by mouth three times daily. cloNIDine 0.1 mg ORAL tablet Take 0.1 mg by mouth once daily. duloxetine (CYMBALTA) 60 mg ORAL capsule Take 1 capsule by mouth once daily. quetiapine XR 400 mg ORAL 24 hr tablet Take 800 mg by mouth daily at bedtime. Blood-Glucose Meter (ACCU-CHEK ACTIVE CARE) Misc monitoring kit 1 Each as needed. FAMILY HISTORY Problem Relation Age of Onset - Arthritis Mother - Hypertension Mother - Heart Mother - Coronary Artery Disease Mother - Allergies Father - Heart Father first [place] at 43 (was smoker at the time) - Hypertension Father - Lipids Father - Diabetes Father age 50's - Arthritis Maternal Grandmother - Diabetes Maternal Grandmother late in life, type 2 (morbidly obese) - COPD Maternal Grandfather - Emphysema Maternal Grandfather - Hearing Loss Maternal Grandfather - Colon Cancer Other none Social History Substance Use Topics - Smoking status: Current Every Day Smoker Packs/day: 0.75 Years: 8.00 Types: Cigarettes - Smokeless tobacco: Never Used - Alcohol use No Comment: not while ; at times problematic, before bipolar, age 11, and age [age]. None in past 4-5 yrs. PHYSICAL EXAM BP 128/68 Pulse 80 Temp 36.2 ?C (97.1 ?F) (Temporal Artery) Resp 16 Wt 102.5 kg (226 lb) SpO2 98% BMI 37.61 kg/m? General Appearance: well appearing, in no acute distress, alert Pysch: mood and affect broad and appropriate Head: normocephalic, atraumatic Lungs: Lungs clear to auscultation. No wheezing, rhonchi, rales Heart: RRR without murmur, gallop, or rubs. No ectopy Right Upper Extremity: Pulses: 2+, Edema: non-pitting noted to right hand. Cap refill < 3 seconds. Finger warm with +mobility DTAP,TDAP,TD(1 - Tdap) due on 2003 HPV EVERY 5 YEARS due on 2014 DIABETIC FOOT EXAM due on 03/12/2018 INFLUENZA(1) due on 07/22/2018 STATIN MED ADHERENCE due on 07/22/2018 DIABETES MED ADHERENCE due on 07/22/2018 STEROID INHALER ADHERENCE due on 07/22/2018 HBA1C due on 09/21/2018 DILATED RETINAL EXAM due on 09/22/2018 URINE ALBUMIN:CREATININE RATIO due on 09/28/2018 LDL CHOLESTEROL due on 09/28/2018 ANNUAL PCP TEAM CHRONIC DISEASE VISIT due on 01/16/2019 PAP EVERY 5 YEARS due on 04/15/2020 ONE PNEUMOVAX PRIOR TO AGE 65 Completed ASSESSMENT/PLAN: 1. Cellulitis of finger of right hand - ICD9: 681.00, ICD10: L03.011 (primary diagnosis) - Continue treatment with Ceftin - Add Probiotic for GI symptoms while on antibiotics - Follow up with plastics as scheduled, 07/20/18 - LACTOBACILLUS ACIDOPHILUS 10 BILLION CELL CAPSULE 2. Type 2 diabetes mellitus without complication, with long- term current use of insulin ([facility]) - ICD9: 250.00, V58.67, ICD10: E11.9, Z79.4 poorly controlled - Continue current medications - Temporarily increase Humalog/Novolog insulin to Sliding scale to 3 times daily with meals and at bedtime given patient's poor control and current infection, concerned elevated blood glucose readings will delay healing - Patient instructed to notify office if current sliding scale is the same as newly ordered sliding scale, will adjust if needed. - Blood glucose monitoring on a four times a day schedule - Follow up in 2-4 weeks, sooner should any other issues arise. - INSULIN ASPART U-100 100 UNIT/ML SUBCUTANEOUS PEN Prescription instructions reviewed with patient as applicable. Potential red flag symptoms discussed with the patient. Reviewed appropriate action plan to take if red flag symptoms occur. Patient agreeable to treatment plan. Mitzi Barrios APRN.CNP CNOV Observed: 07/18/2018 Status: COMPLETED Source: [place] 10:40 AM [facility] REPOSITORY Office Visit (INTMWS) ROGER JIMENEZ ([id number]) 1985 F Date Time Provider Department 07/18/18 10:40 AM MITZI BARRIOS (JE) INTMWS During your visit today, we recorded the following information about you: Temperature Pulse Respiration Blood pressure 97.1 degrees 80/minute 16/minute 128/68 Weight 102.5 kg Mitzi Barrios APRN.CNP 07/18/2018 11:38 AM Signed Novolog with meals and at bedtime. Sliding scale: <150 0 units 150-199 2 units 200-249 4 units 250-299 6 units 300-349 8 units 350-399 10 units > 400 notify PCP Mitzi Barrios APRN.CNP 07/18/2018 12:16 PM Signed CC: Patient presents with: Recheck: [facility] follow up, cellulitis HPI Roger Jimenez is a 32 year old female who presents today for [facility] Admission follow up. Patient presented to the ER on 06/30/18 with complaints of an infected right hand secondary to a cat scratch. Patient reports having a fever of >101F prior to admission. Patient underwent IANDD to the dorsal aspect of the right hand on 07/01/18. Cultures returned showing Enterobacter and Klebsiella. Patient received Unasyn and Azithromycin during her admission. She was discharged home, 07/04/18, on Cipro x14 days and follow up with plastics, . Since returning home patient reports having antibiotics switched from Cipro to Ceftin on 07/06/18 d/t interaction with some of her other medications. Tolerating Ceftin fair, reports some upset stomach, nausea, emesis x1 this morning mostly bile. Denies any fevers, chills or numbness to the RUE. Notes continued pain and edema to RUE with limited ROM. She has a [facility] nurse coming to her home ever other day for dressing changes, next one scheduled tomorrow. Already followed up with x1 week ago where she had additional debridement of her wound, next follow up in 2 days. Notes she doesn't feel like she is healing as well or as quickly as she anticipated.Reports blood sugars running in the mid 200s regularly, fasting occasionally in the 190s. She reports taking her DM medications as prescribed, but could not recall sliding scale dosing then indicated she makes her own adjustments to insulin based on carbs and her readings. Patient does note she has brought her A1C down to 8 from 11. Her goal is get it below 8% so that she may proceed with elective skin graft surgery of her posterior neck. REVIEW OF SYSTEMS General: no fevers, no night sweats, no recurrent infections, no change in appetite, no change in energy and no significant changes in weight GI: See HPI Skin: Negative for lesions, rash, and itching, Positive surgical IANDD site to right dorsal hand Neurologic: No headache, weakness, numbness, neck stiffness, tremor, vertigo, dizziness, memory loss, syncope., See HPI PAST MEDICAL HISTORY Diagnosis Date - Back pain DDD, will be seeing Dr. Guzmán - Bipolar disorder, unspecified (HCC) age 20 sees [facility] - Constipation - Diabetes mellitus type II 2010 - Hydradenitis - Hyperlipidemia 2010 - Left breast abscess 10/11/2014 - Overweight(278.02) childhood + FH - Postinflammatory skin changes 12/04/2012 - Scars 12/04/2012 - Spinal stenosis - Tobacco use disorder age 12 on/off since; longest cessation (as of 04/27) 1 year - Unspecified asthma(493.90) chencho high exercise-induced PAST SURGICAL HISTORY Procedure Laterality Date - ASPIRATION BREAST CYST 08/2014 right - ASPIRATION BREAST CYST 09/2014 left - DELIVERY ONLY 03/29/07 , low cervical - COLONOSCOP W/ OR W/O BRSH SPEC 10/18/12 Colonoscopy - EGD W/O OR W/BRUSH/WASH 10/18/12 EGD - FOOT SURGERY HX removal of cyst- right foot - ORAL SURGERY PROCEDURE [place] [facility] - PAST SURGICAL HISTORY OF age 17 CYST REMOVED UNDER LEFT ARM; [place] - PAST SURGICAL HISTORY OF Groin Surgery- [facility] - PAST SURGICAL HISTORY OF neck surgery x 3 for hidradentitis - PAST SURGICAL HISTORY OF 02/03/2017 hidradentitis right under arm - REMOVAL OF TONSILS,11+ Y/O age 18 ALLERGIES Adhesive Tape (Rosins) MEDICATIONS Lactobacillus acidophilus (PROBIOTIC) 10 billion cell cap Take 1 capsule by mouth once daily. insulin aspart U-100 (NOVOLOG FLEXPEN U-100 INSULIN) 100 unit/mL inpn Inject 4 Units subcutaneously before meals and at bedtime. 4 Units with meals In addition to sliding scale: <150 0 [id number] 2 [id number] 4 -842 6 [id number] 8 [id number] 10 units> 400 notify PCP insulin glargine (LANTUS SOLOSTAR U-100 INSULIN) 100 unit/mL (3 mL) inpn Inject 10 Units subcutaneously daily at bedtime. metFORMIN (GLUCOPHAGE) 1,000 mg tablet TAKE 1 TABLET BY MOUTH TWICE DAILY. spironolactone (ALDACTONE) 100 mg tablet TAKE 1 TABLET BY MOUTH DAILY atorvastatin (LIPITOR) 20 mg tablet TAKE 1 TABLET BY MOUTH AT BEDTIME FOR CHOLESTEROL meloxicam (MOBIC) 7.5 mg tablet TAKE 1 TABLET DAILY tiZANidine (ZANAFLEX) 4 mg tablet TAKE 1 TABLET BY MOUTH EVERY SIX HOURS NEEDED gabapentin (NEURONTIN) 300 mg capsule TAKE 1 CAPSULE FOUR TIMES A DAY omeprazole (PRILOSEC) 20 mg capsule TAKE 1 CAPSULE BY MOUTH DAILY BEFORE BREAKFAST (1/2 HR. BEFORE MEAL) glipiZIDE (GLUCOTROL) 10 mg tablet TAKE 1 TABLET EVERY MORNING AND 1/2 TABLET EVERY EVENING benzonatate (TESSALON PERLE) 100 mg capsule Take 1 capsule by mouth three times daily as needed. albuterol HFA (PROVENTIL HFA, VENTOLIN HFA) 90 mcg/actuation inhaler Inhale 2 Puffs as instructed every 4 hours as needed. cetirizine (ZYRTEC) 10 mg tablet Take 1 tablet by mouth once daily. fluticasone (FLONASE) 50 mcg/actuation nasal spray Use 1 [place] in each nostril twice daily. Rinse mouth after use. AMITIZA 24 mcg capsule TAKE 1 CAPSULE BY MOUTH TWICE DAILY WITH MEALS. blood sugar diagnostic (TRUE METRIX GLUCOSE TEST STRIP) test strip Use as instructed, Testing 4 times a day. E11.9, no insulin Insulin [place], Disposable, (RAYNE PEN NEEDLE) 32 gauge x 532 ndle Use one needle for each dose. 4/day. CRYSELLE 0.3-30 mg-mcg per tablet TAKE 1 TABLET DAILY *TAKE ACTIVE PILLS FOR 12 WEEKS THEN TAKE [place] Blood-Glucose Meter (TRUE METRIX GLUCOSE METER) misc 1 Device three times daily as needed (Test as instructed, Diagnosis E11.9). blood sugar diagnostic (TRUE METRIX GLUCOSE TEST STRIP) test strip Use as instructed, E11.9, testing 2 to 3 times a day, no insulin Lancets lancets E11.9, testing 2 to 3 times a day, no insulin (may use True Metrix brand if available) lithium carbonate (ESKALITH) 300 mg capsule Take 300 mg by mouth twice daily with meals. blood sugar diagnostic (TRUETEST TEST STRIPS) test strip E11.9, testing 2-3 times a day, no insulin usage mometasone (ASMANEX TWISTHALER) 110 mcg (30 doses) twisthaler Inhale 1 Puff as instructed three times daily. DULoxetine (CYMBALTA) 30 mg capsule Take 1 capsule by mouth once daily. albuterol HFA (PROAIR HFA) 90 mcg/actuation inhaler Inhale 2 Puffs as instructed every 4 hours as needed. busPIRone 10 mg tablet Take 2 tablets by mouth three times daily. cloNIDine 0.1 mg ORAL tablet Take 0.1 mg by mouth once daily. duloxetine (CYMBALTA) 60 mg ORAL capsule Take 1 capsule by mouth once daily. quetiapine XR 400 mg ORAL 24 hr tablet Take 800 mg by mouth daily at bedtime. Blood-Glucose Meter (ACCU-CHEK ACTIVE CARE) Misc monitoring kit 1 Each as needed. FAMILY HISTORY Problem Relation Age of Onset - Arthritis Mother - Hypertension Mother - Heart Mother - Coronary Artery Disease Mother - Allergies Father - Heart Father first [place] at 43 (was smoker at the time) - Hypertension Father - Lipids Father - Diabetes Father age 50's - Arthritis Maternal Grandmother - Diabetes Maternal Grandmother late in life, type 2 (morbidly obese) - COPD Maternal Grandfather - Emphysema Maternal Grandfather - Hearing Loss Maternal Grandfather - Colon Cancer Other none Social History Substance Use Topics - Smoking status: Current Every Day Smoker Packs/day: 0.75 Years: 8.00 Types: Cigarettes - Smokeless tobacco: Never Used - Alcohol use No Comment: not while ; at times problematic, before bipolar, age 11, and age [age]. None in past 4-5 yrs. PHYSICAL EXAM BP 128/68 Pulse 80 Temp 36.2 ?C (97.1 ?F) (Temporal Artery) Resp 16 Wt 102.5 kg (226 lb) SpO2 98% BMI 37.61 kg/m? General Appearance: well appearing, in no acute distress, alert Pysch: mood and affect broad and appropriate Head: normocephalic, atraumatic Lungs: Lungs clear to auscultation. No wheezing, rhonchi, rales Heart: RRR without murmur, gallop, or rubs. No ectopy Right Upper Extremity: Pulses: 2+, Edema: non-pitting noted to right hand. Cap refill < 3 seconds. Finger warm with +mobility DTAP,TDAP,TD(1 - Tdap) due on 2003 HPV EVERY 5 YEARS due on 2014 DIABETIC FOOT EXAM due on 03/12/2018 INFLUENZA(1) due on 07/22/2018 STATIN MED ADHERENCE due on 07/22/2018 DIABETES MED ADHERENCE due on 07/22/2018 STEROID INHALER ADHERENCE due on 07/22/2018 HBA1C due on 09/21/2018 DILATED RETINAL EXAM due on 09/22/2018 URINE ALBUMIN:CREATININE RATIO due on 09/28/2018 LDL CHOLESTEROL due on 09/28/2018 ANNUAL PCP TEAM CHRONIC DISEASE VISIT due on 01/16/2019 PAP EVERY 5 YEARS due on 04/15/2020 ONE PNEUMOVAX PRIOR TO AGE 65 Completed ASSESSMENT/PLAN: 1. Cellulitis of finger of right hand - ICD9: 681.00, ICD10: L03.011 (primary diagnosis) - Continue treatment with Ceftin - Add Probiotic for GI symptoms while on antibiotics - Follow up with plastics as scheduled, 07/20/18 - LACTOBACILLUS ACIDOPHILUS 10 BILLION CELL CAPSULE 2. Type 2 diabetes mellitus without complication, with long- term current use of insulin ([facility]) - ICD9: 250.00, V58.67, ICD10: E11.9, Z79.4 poorly controlled - Continue current medications - Temporarily increase Humalog/Novolog insulin to Sliding scale to 3 times daily with meals and at bedtime given patient's poor control and current infection, concerned elevated blood glucose readings will delay healing - Patient instructed to notify office if current sliding scale is the same as newly ordered sliding scale, will adjust if needed. - Blood glucose monitoring on a four times a day schedule - Follow up in 2-4 weeks, sooner should any other issues arise. - INSULIN ASPART U-100 100 UNIT/ML SUBCUTANEOUS PEN Prescription instructions reviewed with patient as applicable. Potential red flag symptoms discussed with the patient. Reviewed appropriate action plan to take if red flag symptoms occur. Patient agreeable to treatment plan. Mitzi Barrios APRN.TRACKMAN Referring Provider: SELF [[id number]] Allergies As of Date: 07/18/2018 Noted Allergy Reaction ADHESIVE TAPE (ROSINS) 02/03/2010 2 - Rash Date Reviewed: 07/18/2018 Reviewed by: Lydia Norwood Ma - Fully Assessed Reason for Visit: Recheck [92] Cmt: [facility] follow up, cellulitis Primary Visit Diagnosis:Cellulitis of finger of right hand [L03.011] Other Visit Diagnosis:Type 2 diabetes mellitus without complication, with long-term current use of insulin ([facility]) [E11.9, Z79.4] Order(s):Lactobacillus acidophilus (PROBIOTIC) 10 billion cell capTake 1 capsule by mouth once daily.Disp: 30 capsuleRfl: 1 insulin aspart U-100 (NOVOLOG FLEXPEN U-100 INSULIN) 100 unit/mL inpnInject 4 Units subcutaneously before meals and at bedtime. 4 Units with meals In addition to sliding scale: <150 0 units 150-199 2 units 200-249 4 units 250-299 6 units 300-349 8 units 350-399 10 units > 400 notify PCPDisp: 5 PenRfl: 0 Prescriptions as of 07/18/2018 Sig: LACTOBACILLUS ACIDOPHILUS 10 * Take 1 capsule by mouth once * INSULIN ASPART U-100 100 UNI* Inject 4 Units subcutaneously* INSULIN GLARGINE (U-100) 100 * Inject 10 Units subcutaneousl* METFORMIN 1,000 MG TABLET TAKE 1 TABLET BY MOUTH TWICE * SPIRONOLACTONE 100 MG TABLET TAKE 1 TABLET BY MOUTH DAILY ATORVASTATIN 20 MG TABLET TAKE 1 TABLET BY MOUTH AT BED* MELOXICAM 7.5 MG TABLET TAKE 1 TABLET DAILY TIZANIDINE 4 MG TABLET TAKE 1 TABLET BY MOUTH EVERY * GABAPENTIN 300 MG CAPSULE TAKE 1 CAPSULE FOUR TIMES A D* OMEPRAZOLE 20 MG CAPSULE,DIONISIO* TAKE 1 CAPSULE BY MOUTH DAILY* GLIPIZIDE 10 MG TABLET TAKE 1 TABLET EVERY MORNING A* BENZONATATE 100 MG CAPSULE Take 1 capsule by mouth three* ALBUTEROL SULFATE HFA 90 MCG/* Inhale 2 Puffs as instructed * CETIRIZINE 10 MG TABLET Take 1 tablet by mouth once d* FLUTICASONE 50 MCG/ACTUATION * Use 1 [place] in each nostril t* AMITIZA 24 MCG CAPSULE TAKE 1 CAPSULE BY MOUTH TWICE* BLOOD SUGAR DIAGNOSTIC STRIPS Use as instructed, Testing 4 * PEN NEEDLE, DIABETIC 32 GAUGE* Use one needle for each dose.* CRYSELLE (28) 0.3 MG-30 MCG T* TAKE 1 TABLET DAILY *TAKE AC* BLOOD-GLUCOSE METER 1 Device three times daily as* BLOOD SUGAR DIAGNOSTIC STRIPS Use as instructed, E11.9, jonh* LANCETS E11.9, testing 2 to 3 times a* LITHIUM CARBONATE 300 MG CAPS* Take 300 mg by mouth twice da* BLOOD SUGAR DIAGNOSTIC STRIPS E11.9, testing 2-3 times a da* MOMETASONE 110 MCG (30 DOSES)* Inhale 1 Puff as instructed t* DULOXETINE 30 MG CAPSULE,DIONISIO* Take 1 capsule by mouth once * ALBUTEROL SULFATE HFA 90 MCG/* Inhale 2 Puffs as instructed * BUSPIRONE 10 MG TABLET Take 2 tablets by mouth three* * CLONIDINE HCL 0.1 MG TABLET Take 0.1 mg by mouth once baljeet* * DULOXETINE 60 MG CAPSULE,DIONISIO* Take 1 capsule by mouth once * * QUETIAPINE ER 400 MG TABLET,E* Take 800 mg by mouth daily at* BLOOD-GLUCOSE METER KIT 1 Each as needed. Problem List As Of Date 07/18/2018 Noted Resolved Supervision of normal first [Z34.00] INVALID FOR*06/16/2012 Bipolar disorder (HCC) [F31.9] More... Asthma [J45.909] More... TOBACCO USE DISORDER [F17.200] More... Overweight [E66.3] More... SCIATICA [M54.30] INVALID FOR* FATTY LIVER [K76.89] INVALID FOR* More... Cellulitis and abscess of trunk [L03.319, L02.2*INVALID FOR*07/13/2013 Other acne [L70.8] INVALID FOR*03/11/2017 HIDRADENITIS/SUPPURATIVA [L73.2] INVALID FOR*07/13/2013 Scar condition and fibrosis of skin [L90.5] INVALID FOR*03/11/2017 Sebaceous cyst [L72.3] INVALID FOR*03/11/2017 NO SHOW [519436] INVALID FOR*03/28/2009 Cannabis dependence, continuous [F12.20] INVALID FOR*07/13/2013 More... Opioid abuse, episodic [F11.10] INVALID FOR* Priority: Very Severe Class: Chronic More... Bipolar disorder (HCC) [F31.9] INVALID FOR*03/11/2017 Diabetes mellitus [E11.9] INVALID FOR* Constipation [K59.00] 03/11/2017 Hidradenitis suppurativa [L73.2] INVALID FOR* Cystic acne vulgaris [L70.0] INVALID FOR* Scars [L90.5] INVALID FOR*03/11/2017 Postinflammatory skin changes [R23.4] INVALID FOR*03/11/2017 Left breast abscess [N61.1] INVALID FOR*03/11/2017 Obesity, Class III, BMI 40-49.9 (morbid obesity*INVALID FOR* Other instructions from your clinician: Novolog with meals and at bedtime. Sliding scale: <150 0 units 150-199 2 units 200-249 4 units 250-299 6 units 300-349 8 units 350-399 10 units > 400 notify PCP Prescriptions ordered this encounter Disp Refills Start End LACTOBACILLUS ACIDOPHILUS 10 BILLION* 30 c* 1 07/18/2018 Route: ORAL Sig: Take 1 capsule by mouth once daily. INSULIN ASPART U-100 100 UNIT/ML ABDUL* 5 Pen 0 07/18/2018 Class: Med Update Route: SUBCUTANEOUS Sig: Inject 4 Units subcutaneously before meals and at bedtime. 4 Units with meals In addition to sliding scale: <150 0 units 150-199 2 units 200-249 4 units 250-299 6 units 300-349 8 units 350-399 10 units > 400 notify PCP Medications Discontinued During This Encounter Lactobacillus acidophilus (PROBIOTIC* 28 c* 0 04/11/2018 07/18/2018 Route: ORAL Sig: Take 1 capsule by mouth twice daily for 14 days. Disc: Reason for discontinue is not on file. insulin aspart U-100 (NOVOLOG FLEXPE* 5 Pen 5 06/23/2018 07/18/2018 Si Units with meals In addition to sliding scale Disc: Reason for discontinue is not on file. Disposition: Return in about 4 weeks (around 08/15/2018). Follow-up and Disposition History Recorded Encounter Status:Closed by MITZI BARRIOS CNP on 07/18/18 12 LEAD ELECTROCARDIOGRAM Observed: 07/13/2018 Status: F Source: [place] 1:46 PM [facility] REPOSITORY [facility] Cardiovascular Services [address] [place] [id number] 12 Lead EKG 07/01/18 0451 MR#: [id number] Acct: [id number] Name: ROGER JIMENEZ Rep #: [id number] : 1985 32 From: Byron Gordon MD Attending Dr: Jonny Key DO Status: DIS IN Ordering Dr: Maribel Ferrer MD Date: 07/01/18 Location: [facility] Sex: F C Admitted: 06/30/18 Test Reason : PRE SURGERY Blood Pressure : / mmHG Vent. Rate : 079 BPM Atrial Rate : 079 BPM P-R Int : 156 ms QRS Dur : 076 ms QT Int : 428 ms P-R-T Axes : 038 087 041 degrees QTc Int : 490 ms Normal sinus rhythm Low voltage QRS Prolonged QT Poor R wave progression Abnormal ECG Confirmed by JOLEEN MARTE, BYRON ([id number]), manager editorial FELISHA ARMSTRONG ([id number]) on 07/13/2018 1:45:40 PM Referred By: SABRINA Confirmed By:BYRON GORDON MD 07/13/18 0465 Date Byron Gordon MD CC: Maribel Ferrer MD; Jonny Key DO; Aj Hope MD Signed DISCHARGE INSTRUCTION Observed: 07/04/2018 Status: F Source: [place] 1:15 PM [facility] REPOSITORY [facility] Medical Records Department [address] [place] [address] Instructions for Home/Discharge Instructions 07/04/18 1308 MR#: [id number] Acct: [id number] Name: ROGER JIMENEZ Rep #: [id number] : 1985 32 From: Jonny Key DO PCP: Aj Hope MD Status: ADM IN ADDENDUM by Jonny Key DO on 07/04/18 at [address] Boswell in 1 week. Date Jonny Key DO cc: Arias Boswell MD; Aj Hope MD * Signed You will use the following diet at home:: Calorie/Carbohydrate Controlled (specify 1200, 1400, etc) - 1800 kcal/day Your food should be the consistency of: Regular Your liquids should be the consistency of: Regular/Thin Discharge Activity: May not drive while taking narcotic pain medications. Keep extremity elevated above heart level: - - right hand Call your doctor if your incision/area has: Continuous Slow Oozing, Sudden Increased Bleeding, Increased Pain/ Swelling, Increased Redness Call your doctor if you observe: Fever of 101 or Higher Additional Instructions: Dressing changes daily to dorsum right hand with aquacel silver followed by kerlix gauze and glenda wrap. Dressing changes to posterior neck/occipital scalp with aquacel silver. Allergies/Adverse Reactions: Allergies lamotrigine [From Lamictal] Allergy (Mild, Verified 06/30/18 12:08) Rash adhesive tape Allergy (Verified 06/30/18 12:08) Rash Medications to take at Discharge Clonidine HCl [Catapres] 0.1 mg PO DAILY PRN PRN 01/18/14 Duloxetine Hcl [Cymbalta] 60 mg PO DAILY 01/18/14 Metformin HCl [Glucophage] 1,000 mg PO BIDCM 01/18/14 Tizanidine HCl [Zanaflex] 4 mg PO 4X/DAY 01/18/14 glipiZIDE [Glucotrol] 15 mg PO DAILY@0730 01/18/14 Quetiapine Fumarate [Seroquel XR] 800 mg PO QHS 04/25/14 Meloxicam [Mobic] 7.5 mg PO DAILY 01/14/16 Spironolactone [Aldactone] 100 mg PO DAILY 01/14/16 Norgestrel-Ethinyl Estradiol [Cryselle-28 Tablet] 1 tab PO DAILY 01/20/16 Bluejacket Carbonate [Bluejacket Carbonate ER] 300 mg PO BID 05/10/16 gabapentin 300 mg capsule 300 mg PO 4X/DAY cap 12/01/17 Lubiprostone [Amitiza] 24 mcg PO BID 01/16/18 Omeprazole [Prilosec] 20 mg PO DAILY 01/16/18 insulin aspart U-100 100 unit/mL subcutaneous solution See Protocol SC TIDCM ml 02/14/18 insulin glargine (U-100) 100 unit/mL subcutaneous solution 10 unit SC QHS 02/14/18 HYDROmorphone tablet [Dilaudid] 2 - 4 mg PO 4X/DAY PRN PRN 7 Days #60 tab 05/21/18 proMETHazine tablet [Phenergan tablet] 25 mg PO 4X/DAY PRN PRN #30 tab 05/21/18 diazepam 5 mg tablet 5 mg PO 4X/DAY PRN #30 tab 05/31/18 Atorvastatin Calcium 20 mg PO QHS 06/21/18 promethazine 25 mg tablet 25 mg PO 4X/DAY PRN #30 tab 06/21/18 Albuterol Sulfate [Ventolin Hfa] 1 - 2 inhaler INHALATION 4X/DAY PRN PRN 06/30/18 Buspirone HCl 20 mg PO TID 06/30/18 Duloxetine Hcl [Cymbalta] 30 mg PO DAILY 06/30/18 Ciprofloxacin [Cipro] 500 mg PO BID #28 tab 07/04/18 The following prescriptions were given: Ciprofloxacin [Cipro] 500 mg PO BID #28 tab Primary Care Physician: Aj Hope MD [Primary Care Provider] - Within 2 Weeks Test Results: Test results from this visit will be discussed in further detail at your follow-up appointment, if applicable. Proposed Discharge Date: 07/04/18 07/04/18 1312 <Electronically signed by Jonny Key DO> Date Jonny Kye DO CC: Arias Boswell MD; Aj Hope MD DISCHARGE SUMMARY Observed: 07/04/2018 Status: F Source: [place] 1:15 PM [facility] REPOSITORY [facility] Medical Records Department [address] [place] [address] Discharge Summary 07/04/18 1312 MR#: [id number] Acct: [id number] Name: ROGER JIMENEZ Rep #: [id number] : 1985 32 From: Jonny Key DO PCP: Aj Hope MD Status: ADM IN Location: [place] [address] Discharge Date and Diagnosis - Problem List Patient Problems: Active and Suspected Problems (Last Reviewed 06/30/18 @ 15:47 by Jonny Key DO) Necrotizing soft tissue infection (Acute) Abscess of dorsum of right hand (Acute) cat scratch bite abscess dorsum right hand by first web space Cellulitis of right hand (Acute) Date of Admission: 06/30/18 Date of Discharge: 07/04/18 - Secondary Discharge Diagnosis Chronic Problems (Last Reviewed 06/30/18 @ 15:47 by Jonny Key DO) Hidradenitis suppurativa (Chronic) 4 cm recurrent hidradenitis posterior neck and occipital scalp Bilateral carpal tunnel syndrome (Chronic) worse on left Chronic neck pain (Chronic) Branchial cleft sinus (Chronic) History of incision and drainage (Chronic) Left side of neck 12/02/17, RIGHT BREAST ABSCESS 09/17/2014, LEFT BREAST ABSCESS 10/11/2014, INGUINAL HYDRADENITIS, AXILLARY HYDRADENITIS Diabetes (Chronic) type 2 Dx : 2012 Last exacerbation : DKA : never Hypoglycemic episode : never ER visit : 01/08 - 500+ Hydradenitis (Chronic) hidradenitis left axilla - L73.2 Morbid obesity (Chronic) Bipolar affective (Chronic) Osteoarthritis (Chronic) Chronic back pain (Chronic) Diabetic leg ulcer (Chronic) nonhealing diabetic ulcer right medial leg - E11.622 Non-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 No definite abscess. Normal bones and joints. Electronically Signed: Juan Pablo Presley MD at 18:57 EDT , Service support , Operations: - - Surgical preparation dorsum right hand at first web space with incision and drainage and excisional debridement necrotizing cat scratch bite abscess (8.1 cm2). Procedures: None Summary of Care Provided: The patient is a 32 year old F presents with cellulitis in the dorsum of her right self-inflicted cutting and/or cat-bite. Patient underwent incision and drainage on the . Cultures grew out Enterobacter as well as Klebsiella. Patient will be discharged with 14 days of Cipro. Patient will follow up with Dr. flores as outpatient. 1. Right hand cellulitis * Suspect secondary to the patient's cutting. Appears more like a staph infection than anything * Culture growing out Enterobacter cloacae and Klebsiella pneumoniae, both sensitive to Cipro * DC Unasyn and Azithromycin, start Cipro * s/p I+D on 07/01 * Likely due to self-inflicted cutting. Pt endorses that she cuts to cope. Uses needles, but not steak knives. Unfortunately I question if she does this for secondary gain (i.e., narcotics) * Page out to Dr. Boswell to see if anything additional from inpatient side. 2. Hidradenitis suppurativa * Patient's had numerous surgeries, approximately 36 involving her axilla, breasts neck and groin * No acute issues at this time 3. Diabetes mellitus type 2 * Continue with her home medications and sliding scale * fair control 4. DVT prophylaxis: Moderate risk. Lovenox. 6. Chronic pain * Per OARRS review: Pt has received #340 tablets of Dilaudid since 05/21/18 (received #30 on 06/26) * Called Dr. Stephens's office, as patient was active there up until around September 2017. Pt never formally discharged from practice, but was informed to not received pain medication from multiple providers. Which she appeared to be doing between January 2017 and then September 2017 (see OARRS). * DC IV Dilaudid * Given patient's claim of severe pain and her appearance of being comfortable and groggy. I am highly concerned that she is embellishing her symptoms. Additionally, I am concerned patient may be cutting, not to cope, but for secondary gain. [] Discharge Diet: 1800 Calorie Control Diet Discharge Activity: May not drive while taking narcotic pain medications. Keep extremity elevated above heart level: - - right hand Call your doctor if your incision/area has: Continuous Slow Oozing, Sudden Increased Bleeding, Increased Pain/ Swelling, Increased Redness Call your doctor if you observe: Fever of 101 or Higher Home Medications: Medications to take at Discharge Clonidine HCl [Catapres] 0.1 mg PO DAILY PRN PRN 01/18/14 Duloxetine Hcl [Cymbalta] 60 mg PO DAILY 01/18/14 Metformin HCl [Glucophage] 1,000 mg PO BIDCM 01/18/14 Tizanidine HCl [Zanaflex] 4 mg PO 4X/DAY 01/18/14 glipiZIDE [Glucotrol] 15 mg PO DAILY@0730 01/18/14 Quetiapine Fumarate [Seroquel XR] 800 mg PO QHS 04/25/14 Meloxicam [Mobic] 7.5 mg PO DAILY 01/14/16 Spironolactone [Aldactone] 100 mg PO DAILY 01/14/16 Norgestrel-Ethinyl Estradiol [Cryselle-28 Tablet] 1 tab PO DAILY 01/20/16 Bluejacket Carbonate [Bluejacket Carbonate ER] 300 mg PO BID 05/10/16 gabapentin 300 mg capsule 300 mg PO 4X/DAY cap 12/01/17 Lubiprostone [Amitiza] 24 mcg PO BID 01/16/18 Omeprazole [Prilosec] 20 mg PO DAILY 01/16/18 insulin aspart U-100 100 unit/mL subcutaneous solution See Protocol SC TIDCM ml 02/14/18 insulin glargine (U-100) 100 unit/mL subcutaneous solution 10 unit SC QHS 02/14/18 HYDROmorphone tablet [Dilaudid] 2 - 4 mg PO 4X/DAY PRN PRN 7 Days #60 tab 05/21/18 proMETHazine tablet [Phenergan tablet] 25 mg PO 4X/DAY PRN PRN #30 tab 05/21/18 diazepam 5 mg tablet 5 mg PO 4X/DAY PRN #30 tab 05/31/18 Atorvastatin Calcium 20 mg PO QHS 06/21/18 promethazine 25 mg tablet 25 mg PO 4X/DAY PRN #30 tab 06/21/18 Albuterol Sulfate [Ventolin Hfa] 1 - 2 inhaler INHALATION 4X/DAY PRN PRN 06/30/18 Buspirone HCl 20 mg PO TID 06/30/18 Duloxetine Hcl [Cymbalta] 30 mg PO DAILY 06/30/18 Ciprofloxacin [Cipro] 500 mg PO BID #28 tab 07/04/18 Following Prescrptions Were Given to Patient: Ciprofloxacin [Cipro] 500 mg PO BID #28 tab Primary Care Physician: Aj Hope MD [Primary Care Provider] - Within 2 Weeks Please Follow Up With: Arias Boswell MD When: 1 week Disposition: Home with Home Health Minutes spent on discharge:: 35 Patient Condition:: Fair Medical Necessity - Tobacco Use Smoking Status: Heavy Smoker (>10/day) Tobacco Use: Cigarettes Meaningful Use Info Meaningful Use Diagnoses (Choose all that apply): None applicable Code Visit Inpatient E AND M: 13198 Disch Hosp 07/04/18 3715 <Electronically signed by Jonny Key DO> Date Jonny Key DO Cosigner Signature (if applicable): Date CC: Jonny Key DO; Arias Boswell MD; Aj Hope MD Signed BEDSIDE GLUCOSE Collected: 07/04/2018 Status: F Source: [facility] 11:19 AM [facility] REPOSITORY TYPE CODE TESTS RESULT OUT OF REFERENCE UNITS RANGE LAB L501.080 70-110 mg/dL High BEDSIDE GLU 179 Result Comment: Insulin Given MANAGEMENT OF PATIENT CARE PER NURSING PROTOCOL Performed By: #### L501.080 #### [facility] Point of Care [address] [place] [address] PLASTIC SURGERY Observed: 07/04/2018 Status: F Source: [facility] VISIT REPORT 9:48 AM [facility] REPOSITORY [facility] [address] [place] [address] OFFICE VISIT Date of Service: 06/14/18 MR#: [id number] Acct: [id number] Name: ROGER JIMENEZ Rep #: [id number] : 1985 Provider: Arias Boswell MD Age/Sex: 32/F Location: [facility] Status: Signed Intake Vital Signs06/14/18 Height 5 ft 5 in 06/14/18 Weight: 226 lb Intake Visit Reasons: postop surgery 05/19/18 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 Accompanied by: None Is patient in pain?: Yes (POSTERIOR NECK PAIN STABBING, THROBBING AND SHOOTING ) Pain scale (1-10): 8 Allergies lamotrigine [From Lamictal] Allergy (Mild, Verified 06/30/18 12:08) Rash adhesive tape Allergy (Verified 06/30/18 12:08) Rash Medications Clonidine HCl [Catapres] 0.1 mg PO DAILY PRN PRN 01/18/14 [History Confirmed 06/30/18] Duloxetine Hcl [Cymbalta] 60 mg PO DAILY 01/18/14 [History Confirmed 06/30/18] Metformin HCl [Glucophage] 1,000 mg PO BIDCM 01/18/14 [History Confirmed 06/30/18] Tizanidine HCl [Zanaflex] 4 mg PO 4X/DAY 01/18/14 [History Confirmed 06/30/18] glipiZIDE [Glucotrol] 15 mg PO DAILY@0730 01/18/14 [History Confirmed 06/30/18] Quetiapine Fumarate [Seroquel XR] 800 mg PO QHS 04/25/14 [History Confirmed 06/30/18] Meloxicam [Mobic] 7.5 mg PO DAILY 01/14/16 [History Confirmed 06/30/18] Spironolactone [Aldactone] 100 mg PO DAILY 01/14/16 [History Confirmed 06/30/18] Norgestrel-Ethinyl Estradiol [Cryselle-28 Tablet] 1 tab PO DAILY 01/20/16 [History Confirmed 06/30/18] Bluejacket Carbonate [Bluejacket Carbonate ER] 300 mg PO BID 05/10/16 [History Confirmed 06/30/18] gabapentin 300 mg capsule 300 mg PO 4X/DAY cap 12/01/17 [History Confirmed 06/30/18] Lubiprostone [Amitiza] 24 mcg PO BID 01/16/18 [History Confirmed 06/30/18] Omeprazole [Prilosec] 20 mg PO DAILY 01/16/18 [History Confirmed 06/30/18] insulin aspart U-100 100 unit/mL subcutaneous solution See Protocol SC TIDCM ml 02/14/18 [History Confirmed 06/30/18] insulin glargine (U-100) 100 unit/mL subcutaneous solution 10 unit SC QHS 02/14/18 [History Confirmed 06/30/18] HYDROmorphone tablet [Dilaudid] 2 - 4 mg PO 4X/DAY PRN PRN 7 Days #60 tab 05/21/18 [Rx Confirmed 06/30/18] proMETHazine tablet [Phenergan tablet] 25 mg PO 4X/DAY PRN PRN #30 tab 05/21/18 [Rx Confirmed 06/30/18] diazepam 5 mg tablet 5 mg PO 4X/DAY PRN #30 tab 05/31/18 [Rx Confirmed 06/30/18] Atorvastatin Calcium 20 mg PO QHS 06/21/18 [History Confirmed 06/30/18] promethazine 25 mg tablet 25 mg PO 4X/DAY PRN #30 tab 06/21/18 [Rx Confirmed 06/30/18] Albuterol Sulfate [Ventolin Hfa] 1 - 2 inhaler INHALATION 4X/DAY PRN PRN 06/30/18 [History Confirmed 06/30/18] Buspirone HCl 20 mg PO TID 06/30/18 [History Confirmed 06/30/18] Duloxetine Hcl [Cymbalta] 30 mg PO DAILY 06/30/18 [History Confirmed 06/30/18] PFSH Medical History Cat scratch of left hand with infection (Acute) Cat scratch of right hand with infection (Acute) Cat scratch (Acute) Diabetes (Chronic) Hydradenitis (Chronic) Morbid obesity (Chronic) Bipolar affective (Chronic) Osteoarthritis (Chronic) Chronic back pain (Chronic) Diabetic leg ulcer (Chronic) Non-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 fat layer exposed (Chronic) Smoker (Chronic) Open wound of left axillary region (Acute) Skin graft failure (Chronic) Abscess of sternal region (Acute) Open wound of chest wall, complicated (Acute) H/O hidradenitis suppurativa (Chronic) Abscess of breast (Acute) Alcohol abuse (Acute) Anxiety and depression (Acute) Asthma (Acute) Back problem (Acute) Drug abuse (Acute) Frequent headaches (Acute) GERD (gastroesophageal reflux disease) (Acute) Hay fever (Acute) Hearing problem (Acute) Hidradenitis (Acute) High triglycerides (Acute) Hyperlipidemia (Acute) Kidney problem (Acute) Neuropathy (Acute) Non-healing surgical wound (Acute) Osteoarthritis (Acute) Partial thickness burn (Acute) Recurrent UTI (Acute) Sinus problem (Acute) Vision problem (Acute) HTN (hypertension) (Chronic) Surgical History History of incision and drainage (Chronic) History of section (Acute) History of tonsillectomy (Acute) Hidradenitis (Acute) [place] teeth removed (Acute) Family History Grandmother Thyroid disorder Father Diabetes Heart disease Hypertension High cholesterol Mother Heart disease Hypertension High cholesterol Social History household members: family, children number of children: 1 Smoking Status: Heavy Smoker (>10/day) second hand exposure: No alcohol intake: former substance use type: former substance user what type of physical activity do you participate in: other seatbelt use: always do you feel safe at home: Yes additional social history: SUN EXPOSURE: OCCASIONALLY HPI postop surgery 05/19/18: Details: Postop visit from her recent surgery on 05/19/18 where she underwent surgical preparation posterior neck/occipital scalp with incision and drainage and excisional debridement recurrent hidradenitis abscess (31.5 cm2). Comes in today with wound pain and neck spasm from irritation to her paraspinous muscles in her posterior neck. The wound is clean with good granulation tissue. It measures smaller at 8 x 2 cm. Using a #3 curette, I sharply debrided the wound down into the subcutaneous tissue as an excisional debridement. Good bleeding seen and controlled with gentle pressure. I redressed the wound with a Silver dressing to be done daily. The muscles at the base of the wound are palpable and firm and tight. She would definitely benefit from PT to help with neck range of motion. Tentatively, we will schedule wound closure with a skin graft in early June on 06/27/18. Will start the PT before the surgery. Since the skin graft is an elective surgery, her HgbA1c needs to be less than 8. At present it is 8.8. Her operative culture showed Staphylococcus epidermidis and an Anaerobe. She was treated with Cleocin perioperatively and has finished them. Renewed her Dilaudid for pain (40 tabs) and her Valium for spasm (30 tabs). [facility] on 06/26/18. Assessment AND Plan Problems 1. Abscess of neck L02.11 2. Abscess, scalp L02.811 3. Unspecified open wound of unspecified part of head, subsequent encounter S01.90XD 4. Unspecified open wound of unspecified part of neck, subsequent encounter S11.90XD 5. Hidradenitis suppurativa L73.2 6. Diabetes E11.9 7. Chronic neck pain M54.2; G89.29 8. Smoker F17.200 Orders Referrals: PT Referral E11.9, F17.200, G89.29, L02.11, L02.811, L73.2, M54.2, M62.83Arias Boswell MD 8, S01.90XD, S11.90XD Medications Discontinued: diazepam (Valium) Discontinued Reason: By S5 mg PO 4X/DAY PRN spasm Background Daemon top Date Coding Level of Care Code Global Post Op Diagnoses Abscess of neck L02.11 Abscess, scalp L02.811 Unspecified open wound of unspecified part of head, subsequent encounter S01.90XD Unspecified open wound of unspecified part of neck, subsequent encounter S11.90XD Hidradenitis suppurativa L73.2 Diabetes E11.9 Chronic neck pain M54.2; G89.29 Smoker F17.200 07/04/18 0116 <Electronically signed by Arias Boswell MD> Date Arias Boswell MD 07/04/18 0948<Electronically signed by Sonali IRAHETA> Cosigner Signature: Date (if applicable) Sonali Castreojn CC: BEDSIDE GLUCOSE Collected: 07/04/2018 Status: F Source: [facility] 6:35 AM [facility] REPOSITORY TYPE CODE TESTS RESULT OUT OF REFERENCE UNITS RANGE LAB L501.080 70-110 mg/dL High BEDSIDE GLU 141 Result Comment: MANAGEMENT OF PATIENT CARE PER NURSING PROTOCOL Performed By: #### L501.080 #### [facility] Point of Care [address] [place] [address] BEDSIDE GLUCOSE Collected: 07/03/2018 Status: F Source: [facility] 10:02 PM [facility] REPOSITORY TYPE CODE TESTS RESULT OUT OF RANGE REFERENCE UNITS LAB L501.080 70-110 mg/dL Normal BEDSIDE GLU 99 Result Comment: MANAGEMENT OF PATIENT CARE PER NURSING PROTOCOL Performed By: #### L501.080 #### [facility] Point of Care [address] [place] [address] BEDSIDE GLUCOSE Collected: 07/03/2018 Status: F Source: [facility] 3:59 PM [facility] REPOSITORY TYPE CODE TESTS RESULT OUT OF REFERENCE UNITS RANGE LAB L501.080 70-110 mg/dL High BEDSIDE GLU 168 Result Comment: MANAGEMENT OF PATIENT CARE PER NURSING PROTOCOL Performed By: #### L501.080 #### [facility] Point of Care [address] [place] [address] BEDSIDE GLUCOSE Collected: 07/03/2018 Status: F Source: [facility] 11:13 AM [facility] REPOSITORY TYPE CODE TESTS RESULT OUT OF REFERENCE UNITS RANGE LAB L501.080 70-110 mg/dL High BEDSIDE GLU 295 Result Comment: MANAGEMENT OF PATIENT CARE PER NURSING PROTOCOL Performed By: #### L501.080 #### [facility] Point of Care [address] [place] [address] BEDSIDE GLUCOSE Collected: 07/03/2018 Status: F Source: [facility] 7:01 AM [facility] REPOSITORY TYPE CODE TESTS RESULT OUT OF REFERENCE UNITS RANGE LAB L501.080 70-110 mg/dL High BEDSIDE GLU 148 Result Comment: MANAGEMENT OF PATIENT CARE PER NURSING PROTOCOL Performed By: #### L501.080 #### [facility] Point of Care [address] [place] [address] BASIC METABOLIC Collected: 07/03/2018 Status: F Source: [facility] PROFILE (BMP) 4:00 AM [facility] REPOSITORY TYPE CODE TESTS RESULT OUT OF RANGE REFERENCE UNITS LAB L501.0100 74-106 mg/dL High GLU 142 Result Comment: Fasting Glucose result greater than or equal to 126 mg/dL suggests DIABETES MELLITUS per A.D.A. criteria. Please note revised GLUCOSE reference range effective 2017. LAB L501.1000 7-18 mg/dL Normal BUN 13 LAB L501.1100 0.55-1.02 mg/dL Normal CREAT,SERUM 0.86 Result Comment: The validity of the calculated GFR AND GFRAA in patients over 70 years has not been determined. Clinical correlation is essential. LAB L501.1110 >60 mL/min Normal EST GFR 80 Result Comment: Non- GFR Calc LAB L501.1115 >60 mL/min Normal EST GFR - AA 97 Result Comment: GFR Calc LAB L501.1255 ml/min Normal Estimated CRCL 83.72 LAB L501.1300 10-20 RATIO Normal BUN/CRE 15.1 LAB L501.2200 8.5-10 mg/dL Normal .1 CA 8.9 LAB L501.5300 136-14 mmol/L Normal 5 NA 144 LAB L501.5600 3.5-5. mmol/L Normal 1 K 4.0 LAB L501.5900 98-107 mmol/L Normal CL 104 LAB L501.6100 21.0-3 mmol/L Normal 2.0 CO2 30.0 LAB L501.6200 5-15 Normal GAP 10 Performed By: #### L500.2500 #### [facility] [address] [place], [address] CBC W/DIFF, AUTOMATED Collected: 07/03/2018 Status: F Source: [facility] 4:00 AM [facility] REPOSITORY TYPE CODE TESTS RESULT OUT OF RANGE REFERENCE UNITS LAB L100.1000 4.4-11.0 K/mm3 High WBC 11.7 LAB L100.1200 4.2-5.4 M/mm3 Low RBC 3.68 LAB L100.1300 12.0-15.0 g/dl Low HGB 10.9 LAB L100.1400 37-47 % Low HCT 35.1 LAB L100.1500 81-99 fL Normal MCV 95.4 LAB L100.1600 27.0-32.0 pg Normal MCH 29.6 LAB L100.1700 32-36 g/gl Low MCHC 31.1 LAB L100.1810 11.6-14.6 % High RDW CV 14.9 LAB L100.1820 35.1-43.9 fl High RDW SD 50.1 LAB L100.1900 150-450 K/mm3 Normal PLT 338 LAB L100.2000 6.2-12.0 fl Normal MPV 9.5 LAB L100.2100 47-70 % Normal NEUT% 50.6 LAB L100.2200 19-41 % Normal LY% 32.2 LAB L100.2300 0-10 % Normal MONO% 5.4 LAB L100.2400 0-5 % High EO% 11.0 LAB L100.2500 0-1 % Normal BASO% 0.5 LAB L100.2550 0.0-0.9 % Normal IM GRAN % 0.300 Result Comment: IG% - Immature Granulocytes (promyelocytes, myelocytes and metamyelocytes) > 1% indicates that a LEFT SHIFT is Present. LAB L100.2620 2.0-7.7 X10 3/uL Normal Absolute Neut 5.9 LAB L100.2720 0.83-4.51 X10 3/ul Normal Absolute Lymph 3.77 Performed By: #### L100.0100 #### [facility] [address] [place], [address] OPERATIVE REPORT Observed: 07/02/2018 Status: F Source: [facility] 10:54 PM [facility] REPOSITORY [facility] Medical Records Department [address] [place] [address] Operative Report 07/01/18 1547 MR#: [id number] Acct: [id number] Name: ROGER JIMENEZ Rep #: [id number] : 1985 32 From: Arias Boswell MD PCP: Aj Hope MD Status: ADM IN Y Location: [facility] [id number] Report of Operation Date of Procedure: 07/01/18 Pre-Operative Diagnosis: 1. Cat scratch bite abscess dorsum right hand at first web space. 2. Diabetes mellitus. 3. Smoker. Post-Operative Diagnosis: 1. Necrotizing cat scratch bite abscess dorsum right hand at first web space. 2. Diabetes mellitus. 3. Smoker. Surgery/Procedure Performed:: Surgical preparation dorsum right hand at first web space with incision and drainage and excisional debridement necrotizing cat scratch bite abscess (8.1 cm2). Description of Surgical Findings:: The patient is a 32 year old F with a history of diabetes mellitus sustained a cat scratch bite to the dorsum of her right hand at first web space on Tuesday. She states it is her own cat. She started developing increasing redness and swelling and pain. The next day she was started on Cleocin and then a few days later on Augmentin. Initially there was a little improvement but the symptomatology continued to worsen. She was able to move her fingers and thumb initially but on the day of admission, she states she had trouble with moving her right thumb secondary to the pain and swelling in the first web space. She denies any numbness. She denies any pain in her right palm. She denies any fever. Patient is right hand dominant. She was admitted and started on IV antibiotics with Vancomycin and Azithromycin. Initial WBC was 10.8. I was asked to evaluate this patient for surgical options for treatment. Patient was informed of the risks and complications of the procedure including alternatives to surgery. These were discussed with the patient personally. Patient voices understanding and wishes to proceed. Some of the risks and complications that were discussed included but were not inclusive of failure to diagnose including symptom relief, pain, infection, numbness, stiffness, loss of digit, RSD (CRPS), need for further surgery, contracture, and wound healing problems. Encouraged patient to stop smoking as it may have deleterious effects on wound healing. Total tournquet time - 16 minutes. Size of defect dorsum right hand at first web space - 3 x 2.7 x 1 cm. accounts specialist: None Type of Anesthesia:: General Specimen's removed: 1. Necrotizing cat scratch bite abscess dorsum right hand at first web space to Pathology and Microbiology. 2. MRSA Wound DNA by PCR. Drains: None. Estimated Blood Loss (mL): 2 ml. Description of Procedure: Patient was taken to OR in supine position and was placed under general anesthesia. Her right hand and forearm was prepped and draped in the usual fashion. SCD's were placed for DVT prophylaxis. Perioperative antibiotics were placed intravenously. The right arm was elevated and a towel was place on the hand and gently compressed as the tourniquet was elevated to 250 mmHg. Using xylocaine with epinephrine, I infiltrated around the abscess for postop pain relief. Under loupe magnification, I proceeded with incision and drainage of the abscess. Using a scalpel I made a longitudinal incision dorsum right hand at first web space. A lot of fat necrosis was seen. Some thickened pus was seen as well in all directions. The fat necrosis extended down to the muscular fascia of the first dorsal interosseous muscle. The fascia was thickened and inflamed and looked viable. Incision was made in the fascia and the underlying muscle looked pink and viable as well. No evidence of compartment syndrome. A branch of the superficial sensory branch of the radial nerve was seen on the fascia at the base of the wound and preserved. There was a small ulceration on the abscess distally and was sharply excised and debrided. It is felt to be the entry point of the cat scratch bite leading to the abscess. The extensive fat necrosis was also sharply excised and debrided as well. Some of the overlying skin looked bruised after the excisional debridement and was debrided. This should make the wound care easier as the wound has been opened up. During the healing process if there is a plateau in the healing process, then delayed closure with skin grafting can be done. Some of the tissue was sent to Microbiology for culture. The rest was sent to Pathology for analysis to rule out carcinoma. MRSA Wound DNA by PCR was also done. A positive culture may necessitate antibiotic modification. The tourniquet was released at 16 minutes. Hemostasis was obtained with gentle pressure and electrocautery. The wound was irrigated with saline. The wound was dressed with Mepitel nonadherent dressing followed by 4x4 gauze with Betadine followed by Kerlix gauze and ABD pads followed by a compression GLENDA wrap. Patient tolerated the procedure well and was sent to PACU in satisfactory condition. She will be sent back upstairs for postop care. She will be encouraged to move her fingers with range of motion exercises to minimize stiffness. She may need assistance with OT after discharge. Will apply Aquacel Silver dressing changes tomorrow. She will keep her right hand elevated. Grafts/Implants Used: None. - Complications None. - Admit VTE Documentation VTE Present on Admission: No VTE Mechan Device Prophylaxis: SCD's VTE Pharm Prophylaxis ordered?: Yes Code Visit Surgery Charges CPT - 53961 ICD-10 - W55.01xA, S61.451A, L02.511, M79.89, E11.9, F17.200 L02.511, W55.01xA, S61.451A, M79.89, E11.9, F17.200 07/02/18 0394 <Electronically signed by Arias Boswell MD> Date Arias Boswell MD CC: Tran Sellers PARCEL POST WEIGHER; Jonny Key DO; Arias Boswell MD; Aj Hope MD; [facility] Signed CONSULTATION Observed: 07/02/2018 Status: F Source: [facility] 10:19 PM [facility] REPOSITORY [facility] Medical Records Department [address] [place] [address] Consultation 06/30/18 1715 MR#: [id number] Acct: [id number] Name: ROGER JIMENEZ Rep #: [id number] : 1985 32 From: Arias Boswell MD PCP: Aj Hope MD Status: ADM IN Y Location: [facility] [id number] Reason for Consult Date of Consultation: 06/30/18 Reason for Consultation: Cat scratch bite abscess dorsum right hand at first web space. REFERRING PHYSICIAN: Dr. Key. COMMUNICATIONS TOWER CLIMBER: Dr. Boswell. History of Present Illness: The patient is a 32 year old F with a history of diabetes mellitus sustained a cat scratch bite to the dorsum of her right hand at first web space on Tuesday. She states it is her own cat. She started developing increasing redness and swelling and pain. The next day she was started on Cleocin and then a few days later on Augmentin. Initially there was a little improvement but the symptomatology continued to worsen. She was able to move her fingers and thumb initially but on the day of admission, she states she had trouble with moving her right thumb secondary to the pain and swelling in the first web space. She denies any numbness. She denies any pain in her right palm. She denies any fever. Patient is right hand dominant. She was admitted and started on IV antibiotics with Vancomycin and Azithromycin. Initial WBC was 10.8. I was asked to evaluate this patient for surgical options for treatment. Past Medical History Past Medical History (Chronic Problems): Chronic Problems (Last Reviewed 06/30/18 @ 15:47 by Jonny Key DO) Hidradenitis suppurativa (Chronic) 4 cm recurrent hidradenitis posterior neck and occipital scalp Bilateral carpal tunnel syndrome (Chronic) worse on left Chronic neck pain (Chronic) Branchial cleft sinus (Chronic) History of incision and drainage (Chronic) Left side of neck 12/02/17, RIGHT BREAST ABSCESS 09/17/2014, LEFT BREAST ABSCESS 10/11/2014, INGUINAL HYDRADENITIS, AXILLARY HYDRADENITIS Diabetes (Chronic) type 2 Dx : 2012 Last exacerbation : DKA : never Hypoglycemic episode : never ER visit : 01/08 - 500+ Hydradenitis (Chronic) hidradenitis left axilla - L73.2 Morbid obesity (Chronic) Bipolar affective (Chronic) Osteoarthritis (Chronic) Chronic back pain (Chronic) Diabetic leg ulcer (Chronic) nonhealing diabetic ulcer right medial leg - E11.622 Non-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 fat layer exposed (Chronic) diabetic ulcer right medial leg - L97.912 Smoker (Chronic) 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 H/O hidradenitis suppurativa (Chronic) Z87.2 Medical History: Medical History (Last Reviewed 06/30/18 @ 15:47 by Jonny Key DO) Cat scratch of left hand with infection (Acute) S60.512A, L08.9, W55.03XA cat scratch infection dorsum left hand at proximal index finger Cat scratch of right hand with infection (Acute) S60.511A, L08.9, W55.03XA cat scratch infection dorsum right hand with extension to long finger Cat scratch (Acute) W55.03XA cat scratch infection dorsum right hand with extension to long finger cat scratch infection dorsum left hand at proximal index finger Diabetes (Chronic) E11.9 type 2 Dx : 2012 Last exacerbation : DKA : never Hypoglycemic episode : never ER visit : 01/08 - 500+ Hydradenitis (Chronic) L73.2 hidradenitis left axilla - L73.2 Morbid obesity (Chronic) E66.01 Bipolar affective (Chronic) F31.9 Osteoarthritis (Chronic) Chronic back pain (Chronic) M54.9, G89.29 Diabetic leg ulcer (Chronic) E11.622, L97.909 nonhealing diabetic ulcer right medial leg - E11.622 Non-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 fat layer exposed (Chronic) L97.912 diabetic ulcer right medial leg - L97.912 Smoker (Chronic) F17.200 F17.200 Open wound of left axillary region (Acute) S41.102A open surgical hidradenitis wound left axilla - S41.102A 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 compromised skin graft left axilla Abscess of sternal region (Acute) L02.213 L02.213 Sternal chest wall wound abscess Open wound of chest wall, complicated (Acute) S21.109A S21.109D open chest wall sternal wound H/O hidradenitis suppurativa (Chronic) Z87.2 Z87.2 Abscess of breast (Acute) N61.1 abscess right medial breast Alcohol abuse F10.10 Anxiety and depression F41.9, F32.9 Asthma J45.909 Back problem M53.9 Drug abuse F19.10 Frequent headaches R51 GERD (gastroesophageal reflux disease) K21.9 Hay fever J30.1 Hearing problem H91.90 Hidradenitis L73.2 LEFT INGUINAL, RIGHT AXILLARY, POSTERIOR NECK, High triglycerides E78.1 Hyperlipidemia E78.5 Kidney problem N28.9 Neuropathy G62.9 Non-healing surgical wound T81.89XA NON HEALING HIDRADENITIS WOUND POSTERIOR NECK. NON HEALING INFECTED HIDRADENITIS ULCER POSTERIOR NECK Osteoarthritis M19.90 Partial thickness burn SUPEROPOSTERIOR NECK Recurrent UTI N39.0 Sinus problem J34.9 Vision problem H54.7 HTN (hypertension) I10 Allergies lamotrigine [From Lamictal] Allergy (Mild, Verified 06/30/18 12:08) Rash adhesive tape Allergy (Verified 06/30/18 12:08) Rash Current Medications Acetaminophen (Tylenol) 650 mg PO Q6H PRN PRN PRN Reason: Mild Pain (1-3)/Temp > 100.7 F Albuterol Sulfate (Ventolin Aerosols) 2.5 mg INHALATION Q4H PRN PRN PRN Reason: ALLERGIES Atorvastatin Calcium (Lipitor) 20 mg PO [facility] Clonidine (Catapres) 0.1 mg PO DAILY PRN PRN PRN Reason: ANXIETY Dextrose (D50w Syringe) 0 gm IV X1 PRN; Protocol PRN Reason: Hypoglycemia Diazepam (Valium) 5 mg PO 4X/DAY PRN PRN PRN Reason: spasm Duloxetine HCl (Cymbalta) 30 mg PO DAILY [facility] Duloxetine HCl (Cymbalta) 60 mg PO DAILY [facility] Enoxaparin Sodium (Lovenox) 40 mg SC DAILY@1000 [facility] Gabapentin (Neurontin) 300 mg PO 4X/DAYCM [facility] Glipizide (Glucotrol) 15 mg PO DAILY@0730 [facility] Glucagon () 1 mg IM .X1 PRN PRN Reason: Hypoglycemia Hydromorphone HCl (Dilaudid Tablet) 2 - 4 mg PO 4X/DAY PRN PRN PRN Reason: PAIN Azithromycin 500 mg/ Dextrose 255 mls @ 250 mls/hr IV X1 ONE Stop: 06/30/18 18:31 Azithromycin 500 mg/ Dextrose 255 mls @ 250 mls/hr IV Q24 [facility] Vancomycin HCl 1,500 mg/ (Dextrose) 280 mls @ 250 mls/hr IV RX TO DOSE ONE Stop: 06/30/18 17:42 Insulin Glargine (Lantus (Bkc)) 10 units SC QHS [facility] Insulin Human Lispro (Humalog Kwikpen (Bk)) 0 unit SQ TIDAC [facility] PRN Reason: Protocol Lubiprostone (Amitiza) 24 mcg PO BID [facility] Magnesium Hydroxide (Milk Of Magnesia) 30 ml PO DAILY PRN PRN PRN Reason: Constipation Meloxicam (Mobic) 7.5 mg PO DAILY [facility] Metformin [facility] ([facility]ucophage) [facility] Morphine Sulfate () 2 - 4 mg IV Q4H PRN PRN PRN Reason: BREAKTHROUGH PAIN (>4/10) Non-Formulary Medication (Buspirone Hcl [Buspirone Hcl]) 20 mg PO TID [facility] Non-Formulary Medication (Norgestrel-Ethinyl Estradiol [Cryselle- 28 Tablet]) 1 tab PO DAILY [facility] Non-Formulary Medication (Bluejacket Carbonate [Bluejacket Carbonate Er]) 300 mg PO BID [facility] Ondansetron HCl (Zofran) 4 mg IV Q8H PRN PRN PRN Reason: NAUSEA Pantoprazole Sodium (Protonix) 20 mg PO DAILY [facility] Promethazine HCl (Phenergan Tablet) 25 mg PO 4X/DAY PRN PRN PRN Reason: NAUSEA/VOMITING Quetiapine Fumarate (Seroquel Xr) 800 mg PO QHS [facility] Spironolactone (Aldactone) 100 mg PO DAILY [facility] Tizanidine HCl (Zanaflex) 4 mg PO 4X/DAY [facility] Home Medications: Ambulatory Orders Medication Instructions Recorded Clonidine HCl [Catapres] 0.1 mg PO DAILY PRN PRN 01/18/14 Surgical History: Surgical History (Last Reviewed 06/30/18 @ 15:48 by Jonny Key DO) History of incision and drainage (Chronic) Z98.890 Left side of neck 12/02/17, RIGHT BREAST ABSCESS 09/17/2014, LEFT BREAST ABSCESS 10/11/2014, INGUINAL HYDRADENITIS, AXILLARY HYDRADENITIS History of section (Acute) Z98.891 History of tonsillectomy (Acute) Z98.890, Z90.89 Hidradenitis L73.2 EXCISION LEFT INGUINAL HIDRADENITIS AND PLACEMENT OF WOUND VAC (121 CM2) 02/05/2009, EXCISION RIGHT AXILLARY HIDRADENITIS AND PLACEMENT OF WOUND VAC (36 CM2) 12/08/2009, EXCISIONAL DEBRIDEMENT HIDRADENITIS POSTERIOR NECK (33 CM2) 04/25/2014, EXCISIONAL DEBRIDEMENT NONHEALING HIDRADENITIS WOUND POSTERIOR NECK WITH 10 CM SECONDARY WOUND CLOSURE 05/15/2014,INCISION AND DRAINAGE AND EXCISIONAL DEBRIDEMENT NONHEALING POSTOP INFECTED HIDRADENITIS ULCER POSTERIOR NECK (20 CM2) AND DEBRIDEMENT PARTIAL THICKNESS BURN SUPEROPOSTERIOR NECK(16 CM2) 06/26/2014, SURGICAL PREPARATION, LEFT AXILLA WITH EXCISION HIDRADENITIS (88 SQ CM) AND SURGICAL PREPARATION, RIGHT MEDIAL LEG WITH EXCISON NONHEALING DIABETIC ULCER RIGHT MEDIAL LEG AND 4 CM COMPLEX SECONDARY WOUND CLOSURE 01/20/2016, EXCISIONAL DEBRIDEMENT LEFT AXILLARY HIDRADENITIS WOUND WITH FTSG RECONSTRUCTION FROM THE RIGHT LATERAL ABDOMINAL WALL (55 CM2) AND PLACEMENT OF NPWT 02/12/2016, SURGICAL PREPARATION STERNUM CHEST WALL WOUND WITH INCISION AND DRAINAGE ABSCESS AND EXCISIONAL DEBRIDEMENT (14 CM2) 03/05/2016, CLOSURE STERNUM CHEST WALL OPEN ABSCESS WOUND WITH RHOMBOID TRANSPOSITION SKIN FLAP RECONSTRUCTION (24.5 CM2) AND SURGICAL PREPARATION RIGHT MEDIAL BREAST WITH INCISION AND DRAINAGE ABSCESS AND EXCISIONAL DEBRIDEMENT (28 CM2) 03/11/2016 [place] teeth removed K08.499 Surgical History: tonsillectomy, - Psychiatric History: Anxiety, Bipolar Smoking Status: Heavy Smoker (>10/day) Tobacco Use: Cigarettes Alcohol: None Drugs: None - *Family History Maternal Family History: Family History (Last Reviewed 06/30/18 @ 15:48 by Jonny Key DO) Grandmother Thyroid disorder Father Diabetes Heart disease Hypertension High cholesterol Mother Heart disease Hypertension High cholesterol History Items: Heart Disease, Hypertension, - Paternal Family History: Family History (Last Reviewed 06/30/18 @ 15:48 by Jonny Key DO) Grandmother Thyroid disorder Father Diabetes Heart disease Hypertension High cholesterol Mother Heart disease Hypertension High cholesterol History Items: Diabetes, Heart Disease, Hypertension Review of Systems Comment: GENERAL: Complains of fatigue. Denies fever and weight loss. Has history of alcohol abuse and drug abuse. EYES: Denies eye pain. ENT: Denies nasal congestion and sore throat. CARDIOVASCULAR: Has fatigue. Denies chest pain, lightheadedness, and shortness of breath with exertion. RESPIRATORY: Complains of cough and shortness of breath. The patient is a smoker. Does have asthma. GI: Denies nausea, vomiting, diarrhea, or constipation. : Denies hematuria and urinary frequency. MUSCULOSKELETAL: Complains of joint pain, back pain, and arthritis. Denies stiffness, muscle weakness, and gout. Has symptoms of bilateral carpal tunnel syndrome with numbness in thumb and index fingers. INTEGUMENTARY: Denies skin cancer. Has recurrent hidradenitis posterior neck and occipital scalp that was excised 05/19/18. Had recent I AND D of left postauricular abscess on 12/02/17. Has cat bite scratch bite infection dorsum right hand in first web space. NEURO: Denies headaches. Denies poor balance and weakness. PSYCH: Denies anxiety. Has depression. Has bipolar disorder. ENDOCRINE: Denies excessive thirst or urination. Has diabetes mellitus. HEMATOLOGIC: Denies abnormal bruising and fevers. Patient Problems: Active and Suspected Problems (Last Reviewed 06/30/18 @ 15:47 by Jonny Key DO) Abscess of dorsum of right hand (Acute) cat scratch bite abscess dorsum right hand by first web space Cat bite of right hand with infection (Acute) cat scratch bite abscess dorsum right hand by first web space Cat bite (Acute) cat scratch bite abscess dorsum right hand by first web space Cellulitis of right hand (Acute) - Physical Exam HEENT: Pupils equal, round, and reactive to light. Extraocular muscles intact. Throat is clear. In the left post-auricular area was an open surgical wound after I AND D of abscess that has healed. No further evidence of infection at this time. NECK: Supple. No bony tenderness. Has a healing hidradenitis ulcer in the posterior neck and occipital scalp. Located just superior to previous excision of hidradenitis and skin grafting. Good granulation tissue seen. Measures smaller at 5 x 1 cm. No purulent drainage. No cervical adenopathy. LUNGS: Clear to auscultation. HEART: Regular rate and rhythm. ABDOMEN: Soft and nontender. Right la BREASTS: Breasts are soft. No masses palpable. No evidence of recurrent infection. No axillary adenopathy. EXTREMITIES: No clubbing, cyanosis, or edema. On the left axillary area is a healed skin graft. In the right axilla is a healed ulcer. No axillary adenopathy noted bilaterally. On the dorsum right hand is an area of erythema and induration and some scabbing. There is swelling. Tenderness to palpation. No purulent drainage noted. No sensory deficits to pinprick noted in the fingers. Right palm is soft and nontender. Can flex and extend her fingers without difficulty. She has trouble with thumb opposition and thumb abduction and adduction and thumb flexion and extension secondary to swelling and tenderness in the first web space over the first dorsal interosseous muscle and adductor pollicis muscle. No tenderness over the tendons to suggest tenosynovitis. Minimal swelling noted on the digits of the right hand. Most of the swelling is localized over the dorsum right hand at first web space. Fingers are warm with good capillary refill. Radial pulses are palpable. No axillary adenopathy. NEURO: Cranial nerves II through XII grossly intact. Vital Signs Temp Pulse Resp BP Pulse Ox 97.9 F 83 16 89/61 L 95 06/30/18 16:23 06/30/18 16:23 06/30/18 16:23 06/30/18 16:23 06/30/18 16:23 Oxygen Delivery Method Room Air Weight: 233 lb 3.985 oz Body Mass Index (BMI) 38.8 Assessment/Plan All Active Problems (Last Reviewed 06/30/18 @ 15:47 by Jonny Key DO) Abscess of dorsum of right hand (Acute) Cat bite of right hand with infection (Acute) Cat bite (Acute) Cellulitis of right hand (Acute) Muscle spasms of neck (Acute) Abscess, scalp (Acute) Folliculitis (Acute) Diabetes mellitus type 2, uncontrolled (Acute) Unspecified open wound of unspecified part of neck, subsequent encounter (Acute) Unspecified open wound of unspecified part of head, subsequent encounter (Acute) Open wound involving head with neck, complicated (Acute) Abscess of neck (Acute) History of section (Acute) History of tonsillectomy (Acute) Cat scratch of left hand with infection (Acute) Cat scratch of right hand with infection (Acute) Cat scratch (Acute) Open wound of left axillary region (Acute) Abscess of sternal region (Acute) Open wound of chest wall, complicated (Acute) Abscess of breast (Acute) 1. Cat scratch bite abscess dorsum right hand at first web space. 2. Diabetes mellitus. 3. Smoker. Continue IV antibiotics with Vancomycin and Azithromycin. Will obtain a CT scan to look for any evidence of infection deep in the hand. Being diabetic and having failed outpatient therapy, recommend early operative intervention with incision and drainage and excisional debridement. Will leave the wound open and pack with Silver dressings to be done daily. Will need OT after discharge for range of motion exercises, strengthening, and edema management. Anticipate increased metabolic demands from the infection and from the surgery. Will check a Prealbumin and encourage nutritional supplementation with protein to help the healing process. Will proceed with the surgery tomorrow under general anesthesia and tourniquet control. Patient was informed of the risks and complications of the procedure including alternatives to surgery. These were discussed with the patient personally. Patient voices understanding and wishes to proceed. Some of the risks and complications that were discussed included but were not inclusive of failure to diagnose including symptom relief, pain, infection, numbness, stiffness, loss of digit, RSD (CRPS), need for further surgery, contracture, and wound healing problems. Encouraged patient to stop smoking as it may have deleterious effects on wound healing. She recently had surgery on 05/19/18 where she underwent surgical preparation posterior neck/occipital scalp with incision and drainage and excisional debridement recurrent hidradenitis abscess (31.5 cm2). The wound is healing satisfactory and is being treated with Aquacel Silver dressing changes every other day. Operative culture showed Staphylococcus epidermidis and Anaerobes. She was treated with Cleocin. She was scheduled to start PT for range of motion exercises to minimize neck stiffness when she developed this cat scratch bite abscess dorsum right hand by first web space. Will continue Silver dressing changes to her posterior neck and occipital scalp while in the hospital. Code Visit Inpatient E AND M: [id number] Init Hosp L2 - ICD-10 - W55.01xA, S61.451A, L02.511, E11.9, F17.200 07/02/18 2219 <Electronically signed by Arias Boswell MD> Date Arias Boswell MD Cosigner Signature (if applicable): Date CC: Tran Sellers PARCEL [employer] WEIGHER; Jonny Key DO; Arias Boswell MD; Aj Hope MD; [facility] Signed BEDSIDE GLUCOSE Collected: 07/02/2018 Status: F Source: [facility] 9:17 PM [facility] REPOSITORY TYPE CODE TESTS RESULT OUT OF REFERENCE UNITS RANGE LAB L501.080 70-110 mg/dL High BEDSIDE GLU 209 Result Comment: MANAGEMENT OF PATIENT CARE PER NURSING PROTOCOL Performed By: #### L501.080 #### [facility] Point of Care [address] [place] [address] BEDSIDE GLUCOSE Collected: 07/02/2018 Status: F Source: [facility] 5:36 PM [facility] REPOSITORY TYPE CODE TESTS RESULT OUT OF RANGE REFERENCE UNITS LAB L501.080 70-110 mg/dL Normal BEDSIDE GLU 84 Result Comment: MANAGEMENT OF PATIENT CARE PER NURSING PROTOCOL Performed By: #### L501.080 #### [facility] Point of Care [address] [place] [address] BEDSIDE GLUCOSE Collected: 07/02/2018 Status: F Source: [facility] 11:08 AM [facility] REPOSITORY TYPE CODE TESTS RESULT OUT OF REFERENCE UNITS RANGE LAB L501.080 70-110 mg/dL High BEDSIDE GLU 133 Result Comment: MANAGEMENT OF PATIENT CARE PER NURSING PROTOCOL Performed By: #### L501.080 #### [facility] Point of Care [address] [place] [address] BEDSIDE GLUCOSE Collected: 07/02/2018 Status: F Source: [facility] 6:45 AM [facility] REPOSITORY TYPE CODE TESTS RESULT OUT OF REFERENCE UNITS RANGE LAB L501.080 70-110 mg/dL High BEDSIDE GLU 152 Result Comment: MANAGEMENT OF PATIENT CARE PER NURSING PROTOCOL Performed By: #### L501.080 #### [facility] Point of Care [address] [place] [address] CBC-COMPLETE BLOOD CNT Collected: 07/02/2018 Status: F Source: [facility] NO DIFF 5:40 AM [facility] REPOSITORY Order Comment: SPECIMEN OBTAINED FROM LINE DRAW TYPE CODE TESTS RESULT OUT OF RANGE REFERENCE UNITS LAB L100.1000 4.4-11.0 K/mm3 High WBC 11.9 LAB L100.1200 4.2-5.4 M/mm3 Low RBC 3.54 LAB L100.1300 12.0-15.0 g/dl Low HGB 10.6 LAB L100.1400 37-47 % Low HCT 33.7 LAB L100.1500 81-99 fL Normal MCV 95.2 LAB L100.1600 27.0-32.0 pg Normal MCH 29.9 LAB L100.1700 32-36 g/gl Low MCHC 31.5 LAB L100.1810 11.6-14.6 % High RDW CV 15.0 LAB L100.1820 35.1-43.9 fl High RDW SD 50.8 LAB L100.1900 150-450 K/mm3 Normal PLT 312 LAB L100.2000 6.2-12.0 fl Normal MPV 9.5 Performed By: #### L100.0500 #### [facility] [address] [place], [address] BASIC METABOLIC Collected: 07/02/2018 Status: F Source: [facility] PROFILE (BMP) 5:40 AM [facility] REPOSITORY Order Comment: SPECIMEN OBTAINED FROM LINE DRAW TYPE CODE TESTS RESULT OUT OF RANGE REFERENCE UNITS LAB L501.0100 74-106 mg/dL High GLU 113 Result Comment: Fasting Glucose result from 100 to 125 mg/dL suggests IMPAIRED HOMEOSTASIS per A.D.A. criteria. Please note revised GLUCOSE reference range effective 2017. LAB L501.1000 7-18 mg/dL Normal BUN 12 LAB L501.1100 0.55-1.02 mg/dL Normal CREAT,SERUM 0.73 Result Comment: The validity of the calculated GFR AND GFRAA in patients over 70 years has not been determined. Clinical correlation is essential. LAB L501.1110 >60 mL/min Normal EST GFR 97 Result Comment: Non- GFR Calc LAB L501.1115 >60 mL/min Normal EST GFR - AA 118 Result Comment: GFR Calc LAB L501.1255 ml/min Normal Estimated CRCL 98.63 LAB L501.1300 10-20 RATIO Normal BUN/CRE 16.4 LAB L501.2200 8.5-10 mg/dL Normal .1 CA 8.7 LAB L501.5300 136-14 mmol/L Normal 5 NA 143 LAB L501.5600 3.5-5. mmol/L Normal 1 K 4.3 LAB L501.5900 98-107 mmol/L Normal CL 107 LAB L501.6100 21.0-3 mmol/L Normal 2.0 CO2 29.0 LAB L501.6200 5-15 Normal GAP 7 Performed By: #### L500.2500, L506.0500 #### [facility] [address] [place], [address] PREALBUMIN Collected: 07/02/2018 Status: F Source: [facility] 5:40 AM [facility] REPOSITORY Order Comment: SPECIMEN OBTAINED FROM LINE DRAW TYPE CODE TESTS RESULT OUT OF REFERENCE UNITS RANGE LAB L506.0500 20.0-40.0 mg/dL Low PREALBUMIN 17.0 Performed By: #### L500.2500, L506.0500 #### [facility] [address] [place], [place], [address] VANCOMYCIN, TROUGH Collected: 07/02/2018 Status: F Source: [facility] LEVEL 1:28 AM [facility] REPOSITORY Order Comment: Time Medication is to be Given? 0200 TYPE CODE TESTS RESULT OUT OF RANGE REFERENCE UNITS LAB L501.8820 5.0-15.0 ug/mL Normal VANCO, TROUGH 13.9 Result Comment: VANCOMYCIN STANDARED DRUG THERAPY TROUGH LEVEL: 5.0 - 15.0 mg/L VANCOMYCIN HIGH INTENSITY THERAPY TROUGH LEVEL: 15.0 - 20.0 mg/L High Intensity therapy recommended for serious life threatening infections include: - Meningitis -Endocarditis -Pneumonia (Ventilator/Healtcare Associated) -Sepsis PLEASE CONTACT PHARMACY SERVICES (#[id number]) FOR INTERPRETATION OF RESULTS. Performed By: #### L501.8820 #### [facility] [address] [place], [address] BEDSIDE GLUCOSE Collected: 07/01/2018 Status: F Source: [facility] 10:07 PM [facility] REPOSITORY TYPE CODE TESTS RESULT OUT OF REFERENCE UNITS RANGE LAB L501.080 70-110 mg/dL High BEDSIDE GLU 132 Result Comment: MANAGEMENT OF PATIENT CARE PER NURSING PROTOCOL Performed By: #### L501.080 #### [facility] Point of Care [address] [place] [address] BEDSIDE GLUCOSE Collected: 07/01/2018 Status: F Source: [place] 5:06 PM [facility] REPOSITORY TYPE CODE TESTS RESULT OUT OF REFERENCE UNITS RANGE LAB L501.080 70-110 mg/dL High BEDSIDE GLU 151 Result Comment: MANAGEMENT OF PATIENT CARE PER NURSING PROTOCOL Performed By: #### L501.080 #### [facility] Point of Care [address] [place] [address] BEDSIDE GLUCOSE Collected: 07/01/2018 Status: F Source: [place] 11:56 AM [facility] REPOSITORY TYPE CODE TESTS RESULT OUT OF REFERENCE UNITS RANGE LAB L501.080 70-110 mg/dL High BEDSIDE GLU 163 Result Comment: MANAGEMENT OF PATIENT CARE PER NURSING PROTOCOL Performed By: #### L501.080 #### [facility] Point of Care [address] [place] [address] BEDSIDE GLUCOSE Collected: 07/01/2018 Status: F Source: [place] 10:20 AM [facility] REPOSITORY TYPE CODE TESTS RESULT OUT OF RANGE REFERENCE UNITS LAB L501.080 70-110 mg/dL Normal BEDSIDE GLU 100 Result Comment: MANAGEMENT OF PATIENT CARE PER NURSING PROTOCOL Performed By: #### L501.080 #### [facility] Point of Care [address] [place] [address] BEDSIDE GLUCOSE Collected: 07/01/2018 Status: F Source: [place] 9:17 AM [facility] REPOSITORY TYPE CODE TESTS RESULT OUT OF REFERENCE UNITS RANGE LAB L501.080 70-110 mg/dL High BEDSIDE GLU 111 Result Comment: MANAGEMENT OF PATIENT CARE PER NURSING PROTOCOL Performed By: #### L501.080 #### [facility] Point of Care [address] [place] [address] ABSCESS (CHOOSE Observed: 07/01/2018 Status: F Source: [facility]) 8:00 AM [facility] REPOSITORY Patient: ROGER JIMENEZ : 1985 (32/F) Acct Num: [id number] Phys: Jonny Key DO Unit Num: [id number] Loc: MS3 [id number] Specimen: [id number] Received: 07/03/18 - 1018 Spec Type: Abscess TISSUES TISSUES: Hand, NOS GROSS DESCRIPTION Received in fixative is one container labeled with the patient's name and designated dorsum right hand by first rios abscess. The specimen consists of a piece of jean-white skin with underlying tissue measuring 3 x 1.5 cm and up to 1.5 cm in thickness. A focal area of ulceration is noted. The specimen is serially sectioned and submitted entirely in two cassettes. / SJ:anastasiia 07/03/18 TC:2 CPT: 80440, 87650 x2 HEADER OPERATION: Incision and drainage abscess, dorsum right hand by first webselbert PRE-OP DIAGNOSIS: Cat bite right dorsum hand by first webspagail TISSUE SUBMITTED: Dorsum right hand by first webselbert MICROSCOPIC DESCRIPTION Slides are reviewed. MICROSCOPIC DIAGNOSIS Dorsum right hand by first webselbert abscess: Skin with underlying tissue with focal ulceration, acute and chronic inflammation and abscess formation. Special stains for acid fast bacilli and fungi are negative for organisms; matched controls are appropriate. PATSY:anastasiia 07/04/18 Signed Milo Schumacher 07/04/18 <signature on file> Performed By: #### PABS #### [facility] [address] [place] [address]. [place], [address] CBC W/DIFF, AUTOMATED Collected: 07/01/2018 Status: F Source: [facility] 4:50 AM [facility] REPOSITORY Order Comment: SPECIMEN OBTAINED FROM LINE DRAW TYPE CODE TESTS RESULT OUT OF RANGE REFERENCE UNITS LAB L100.1000 4.4-11.0 K/mm3 High WBC 13.2 LAB L100.1200 4.2-5.4 M/mm3 Low RBC 3.61 LAB L100.1300 12.0-15.0 g/dl Low HGB 10.4 LAB L100.1400 37-47 % Low HCT 33.8 LAB L100.1500 81-99 fL Normal MCV 93.6 LAB L100.1600 27.0-32.0 pg Normal MCH 28.8 LAB L100.1700 32-36 g/gl Low MCHC 30.8 LAB L100.1810 11.6-14.6 % High RDW CV 15.2 LAB L100.1820 35.1-43.9 fl High RDW SD 52.2 LAB L100.1900 150-450 K/mm3 Normal PLT 341 LAB L100.2000 6.2-12.0 fl Normal MPV 9.3 LAB L100.2100 47-70 % Normal NEUT% 49.0 LAB L100.2200 19-41 % Normal LY% 35.2 LAB L100.2300 0-10 % Normal MONO% 4.9 LAB L100.2400 0-5 % High EO% 10.2 LAB L100.2500 0-1 % Normal BASO% 0.5 LAB L100.2550 0.0-0.9 % Normal IM GRAN % 0.200 Result Comment: IG% - Immature Granulocytes (promyelocytes, myelocytes and metamyelocytes) > 1% indicates that a LEFT SHIFT is Present. LAB L100.2620 2.0-7.7 X10 3/uL Normal Absolute Neut 6.5 LAB L100.2720 0.83-4.51 X10 3/ul High Absolute Lymph 4.64 LAB L100.4500 Normal SMEAR COMMENT SCANNED Result Comment: AUTO DIFF OK Performed By: #### L100.0100 #### [facility] [address] [facility] [place], [place], [address] BASIC METABOLIC Collected: 07/01/2018 Status: F Source: [facility] PROFILE (BMP) 4:50 AM [facility] REPOSITORY Order Comment: SPECIMEN OBTAINED FROM LINE DRAW TYPE CODE TESTS RESULT OUT OF RANGE REFERENCE UNITS LAB L501.0100 74-106 mg/dL Low GLU 69 Result Comment: Please note revised GLUCOSE reference range effective 2017. LAB L501.1000 7-18 mg/dL Normal BUN 9 LAB L501.1100 0.55-1.02 mg/dL Normal CREAT,SERUM 0.72 Result Comment: The validity of the calculated GFR AND GFRAA in patients over 70 years has not been determined. Clinical correlation is essential. LAB L501.1110 >60 mL/min Normal EST GFR 98 Result Comment: Non- GFR Calc LAB L501.1115 >60 mL/min Normal EST GFR - AA 119 Result Comment: GFR Calc LAB L501.1255 ml/min Normal Estimated CRCL 100.00 LAB L501.1300 10-20 RATIO BUN/CRE Normal 12.5 LAB L501.2200 8.5-10 mg/dL Low .1 CA 8.1 LAB L501.5300 136-14 mmol/L 5 NA Normal 144 LAB L501.5600 3.5-5. mmol/L 1 K Normal 3.8 LAB L501.5900 98-107 mmol/L CL Normal 107 LAB L501.6100 21.0-3 mmol/L 2.0 CO2 Normal 30.0 LAB L501.6200 5-15 GAP Normal 7 Performed By: #### L500.2500 #### [facility] [address] [facility] [place], [address] MRSA WOUND DNA BY Collected: 07/01/2018 Status: F Source: [facility] PCR 12:00 AM [facility] REPOSITORY Order Comment: Comments: DORSUM RIGHT HAND BY 1ST WEBSPACE- ABSCESS Specimen Source? DORSUM RIGHT HAND BY 1ST WEBSPACE- ABSCESS TYPE CODE TESTS RESULT OUT OF RANGE REFERENCE UNITS LAB L8200.1100 Negative Normal MRSA Negative RESULT LAB L8200.1150 Negative Normal SA RESULT NEGATIVE Performed By: #### L8200.1075 #### [facility] [address] [facility] [place], [address] Observed: 07/01/2018 Status: F Source: [facility] CULTURE, DEEP WOUND 12:00 AM [facility] REPOSITORY Order Date: 06/22/17 Comments: DORSUM RIGHT HAND BY 1ST WEBSPACE -ABSCESS Gram Stain Gram Stain 4+ Red Blood Cells No organisms seen Wound Culture ORGANISM 1: Enterobacter cloacae complex Amount Growth Rare ORGANISM 2: Klebsiella pneumoniae sp pneum Amount Growth Rare Enterobacter cloacae complex: REACTION Amoxacillin/Clavulanic Acid $ >=32 R Cefazolin $ >=64 R Cefepime $ <=1 S Ceftriaxone $ <=1 S Ciprofloxacin $ <=0.25 S Ertapenim $$$ <=0.5 S Gentamicin $ <=1 S Imipenem *NF 0.5 S Levofloxacin $ <=0.12 S Piperacillin/Tazobactam $$ <=4 S Tobramycin $ <=1 S Trimethoprim/Sulfametho $ <=20 S (NF) indicates non-formulary drug at [facility]. Approval by Infectious Disease Specialist required before non-formulary drugs may be ordered and/or dispensed. Klebsiella pneumoniae sp pneum: REACTION Amoxacillin/Clavulanic Acid $ <=2 S Ampicillin $ >=32 R Ampicillin/Sulbactam $ 8 S Cefazolin $ <=4 S Cefepime $ <=1 S Ceftriaxone $ <=1 S Ciprofloxacin $ <=0.25 S ESBL - Ertapenim $$$ <=0.5 S Gentamicin $ <=1 S Imipenem *NF <=0.25 S Levofloxacin $ <=0.12 S Piperacillin/Tazobactam $$ 16 S Tobramycin $ <=1 S Trimethoprim/Sulfametho $ <=20 S (NF) indicates non-formulary drug at [facility]. Approval by Infectious Disease Specialist required before non-formulary drugs may be ordered and/or dispensed. Cult, Anaerobic No anaerobic bacteria isolated. Performed By: #### M100.1500 #### [facility] [address] [place], [address] Observed: 07/01/2018 Status: F Source: DWAYNE ALFORD W/ 12:00 [facility] [id number] REPOSITORY Comments: DORSUM RIGHT HAND BY 1ST WEBSPACE- ABSCESS Is this test to exclude patient from TB Isolation? Manoj [id number] TESTING PERFORMED AT [facility]. ORIGINAL REPORT ON FILE IN LAB CONTAINS ADDITIONAL TEST SITE INFORMATION. CUF No yeast or mold isolated after [address] TESTING PERFORMED AT [facility]. ORIGINAL REPORT ON FILE IN LAB CONTAINS ADDITIONAL TEST SITE INFORMATION. Fungus Stain No yeast or mold observed. Performed By: #### M600.1900 #### [facility] [address] [place], [place], [id number] BEDSIDE GLUCOSE Collected: 06/30/2018 Status: F Source: [place] 9:55 PM [facility] REPOSITORY TYPE CODE TESTS RESULT OUT OF REFERENCE UNITS RANGE LAB L501.080 70-110 mg/dL High BEDSIDE GLU 140 Result Comment: MANAGEMENT OF PATIENT CARE PER NURSING PROTOCOL Performed By: #### L501.080 #### [facility] Point of Care [address] [place] [address] BEDSIDE GLUCOSE Collected: 06/30/2018 Status: F Source: [place] 6:37 PM [facility] REPOSITORY TYPE CODE TESTS RESULT OUT OF REFERENCE UNITS RANGE LAB L501.080 70-110 mg/dL High BEDSIDE GLU 123 Result Comment: MANAGEMENT OF PATIENT CARE PER NURSING PROTOCOL Performed By: #### L501.080 #### [facility] Point of Care [address] [place] [address] BEDSIDE GLUCOSE Collected: 06/30/2018 Status: F Source: [place] 5:39 PM [facility] REPOSITORY TYPE CODE TESTS RESULT OUT OF RANGE REFERENCE UNITS LAB L501.080 70-110 mg/dL Normal BEDSIDE GLU 95 Result Comment: MANAGEMENT OF PATIENT CARE PER NURSING PROTOCOL Performed By: #### L501.080 #### [facility] Point of Care [address] [place] [address] BEDSIDE GLUCOSE Collected: 06/30/2018 Status: F Source: [place] 5:25 PM [facility] REPOSITORY TYPE CODE TESTS RESULT OUT OF REFERENCE UNITS RANGE LAB L501.080 70-110 mg/dL Low BEDSIDE GLU 65 Result Comment: MANAGEMENT OF PATIENT CARE PER NURSING PROTOCOL Performed By: #### L501.080 #### [facility] Point of Care [address] [place] [address] EXTREMITY UPPER Observed: 06/30/2018 Status: F Source: [place] WITHOUT CONTRA 5:18 PM [facility] REPOSITORY [facility] Imaging Services [address] [place] [address] Extremity Upper without Contra MR#: [id number] Acct: [id number] Name: ROGER JIMENEZ Rep #: [id number] : 1985 F 32 From: Juan Pablo Presley MD PCP: Aj Hope MD Status: ADM IN Study: Extremity Upper without Contra Date of Exam: 06/30/18 Exam# [id number] Ordering Dr: Arias Boswell MD Exam: CT of the right upper extremity noncontrast. HISTORY: Abscess. COMPARISON: None FINDINGS: Normal bones and joints. No evidence for abscess or focal fluid collection. Nonspecific soft tissue swelling seen along the dorsum of the hand and mild induration seen of the dorsal aspect of the forearm. Grossly normal visualized intrinsic muscles of the hand and muscles of the forearm. Grossly normal visualized tendons. CT/Extremity Upper without Contra IMPRESSION: Mild nonspecific soft tissue swelling. No definite abscess. Normal bones and joints. 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 BEDSIDE GLUCOSE Collected: 06/30/2018 Status: F Source: MEY 5:14 PM [facility] REPOSITORY TYPE CODE TESTS RESULT OUT OF REFERENCE UNITS RANGE LAB L501.080 70-110 mg/dL Low BEDSIDE GLU 59 Result Comment: MANAGEMENT OF PATIENT CARE PER NURSING PROTOCOL Performed By: #### L501.080 #### [facility] Point of Care [address] [place] [address] BEDSIDE GLUCOSE Collected: 06/30/2018 Status: F Source: [place] 5:01 PM [facility] REPOSITORY TYPE CODE TESTS RESULT OUT OF REFERENCE UNITS RANGE LAB L501.080 70-110 mg/dL Low BEDSIDE GLU 67 Result Comment: MANAGEMENT OF PATIENT CARE PER NURSING PROTOCOL Performed By: #### L501.080 #### [facility] Point of Care [address] [place] [address] HISTORY AND PHYSICAL Observed: 06/30/2018 Status: F Source: [place] EXAM 3:57 PM [facility] REPOSITORY [facility] Medical Records Department [address] [place] [address] History and Physical 06/30/18 1545 MR#: [id number] Acct: [id number] Name: ROGER JIMENEZ Rep #: [id number] : 1985 32 From: Jonny Key DO PCP: Aj Hope MD Status: ADM IN Y Location: [facility] [id number] Problem List (1) Cellulitis of right hand Status: Acute History of Present Illness Date of Admission: 06/30/18 Chief Complaint: right hand swelling and redness. The patient is a 32 year old F who is a known cutter cut on her dorsum of her right hand. Then on Tuesday noted redness. Received antibiotics with Bactrim which she started on Tuesday. Since then the redness and swelling. Patient presented to the emergency room and was started with cellulitis. Dr. Boswell was informed and signed the take her to surgery on Tuesday for further I AND D. Patient states that she has also scratched by her cat is around the same area. [] Past Medical History Past Medical History (Chronic Problems): Chronic Problems (Last Updated 02/14/18 @ 14:17 by Shreya Rondon) Hidradenitis suppurativa (Chronic) 4 cm recurrent hidradenitis posterior neck and occipital scalp Bilateral carpal tunnel syndrome (Chronic) worse on left Chronic neck pain (Chronic) Branchial cleft sinus (Chronic) History of incision and drainage (Chronic) Left side of neck 12/02/17, RIGHT BREAST ABSCESS 09/17/2014, LEFT BREAST ABSCESS 10/11/2014, INGUINAL HYDRADENITIS, AXILLARY HYDRADENITIS Diabetes (Chronic) type 2 Dx : 2012 Last exacerbation : DKA : never Hypoglycemic episode : never ER visit : 01/08 - 500+ Hydradenitis (Chronic) hidradenitis left axilla - L73.2 Morbid obesity (Chronic) Bipolar affective (Chronic) Osteoarthritis (Chronic) Chronic back pain (Chronic) Diabetic leg ulcer (Chronic) nonhealing diabetic ulcer right medial leg - E11.622 Non-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 fat layer exposed (Chronic) diabetic ulcer right medial leg - L97.912 Smoker (Chronic) 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 H/O hidradenitis suppurativa (Chronic) Z87.2 Medical History: Medical History (Last Reviewed 06/30/18 @ 15:47 by Jonny Key DO) Cat scratch of left hand with infection (Acute) S60.512A, L08.9, W55.03XA cat scratch infection dorsum left hand at proximal index finger Cat scratch of right hand with infection (Acute) S60.511A, L08.9, W55.03XA cat scratch infection dorsum right hand with extension to long finger Cat scratch (Acute) W55.03XA cat scratch infection dorsum right hand with extension to long finger cat scratch infection dorsum left hand at proximal index finger Diabetes (Chronic) E11.9 type 2 Dx : 2012 Last exacerbation : DKA : never Hypoglycemic episode : never ER visit : 01/08 - 500+ Hydradenitis (Chronic) L73.2 hidradenitis left axilla - L73.2 Morbid obesity (Chronic) E66.01 Bipolar affective (Chronic) F31.9 Osteoarthritis (Chronic) Chronic back pain (Chronic) M54.9, G89.29 Diabetic leg ulcer (Chronic) E11.622, L97.909 nonhealing diabetic ulcer right medial leg - E11.622 Non-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 fat layer exposed (Chronic) L97.912 diabetic ulcer right medial leg - L97.912 Smoker (Chronic) F17.200 F17.200 Open wound of left axillary region (Acute) S41.102A open surgical hidradenitis wound left axilla - S41.102A 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 compromised skin graft left axilla Abscess of sternal region (Acute) L02.213 L02.213 Sternal chest wall wound abscess Open wound of chest wall, complicated (Acute) S21.109A S21.109D open chest wall sternal wound H/O hidradenitis suppurativa (Chronic) Z87.2 Z87.2 Abscess of breast (Acute) N61.1 abscess right medial breast Alcohol abuse F10.10 Anxiety and depression F41.9, F32.9 Asthma J45.909 Back problem M53.9 Drug abuse F19.10 Frequent headaches R51 GERD (gastroesophageal reflux disease) K21.9 Hay fever J30.1 Hearing problem H91.90 Hidradenitis L73.2 LEFT INGUINAL, RIGHT AXILLARY, POSTERIOR NECK, High triglycerides E78.1 Hyperlipidemia E78.5 Kidney problem N28.9 Neuropathy G62.9 Non-healing surgical wound T81.89XA NON HEALING HIDRADENITIS WOUND POSTERIOR NECK. NON HEALING INFECTED HIDRADENITIS ULCER POSTERIOR NECK Osteoarthritis M19.90 Partial thickness burn SUPEROPOSTERIOR NECK Recurrent UTI N39.0 Sinus problem J34.9 Vision problem H54.7 HTN (hypertension) I10 Allergies lamotrigine [From Lamictal] Allergy (Mild, Verified 06/30/18 12:08) Rash adhesive tape Allergy (Verified 06/30/18 12:08) Rash Home Medications: Ambulatory Orders Medication Instructions Recorded Clonidine HCl [Catapres] 0.1 mg PO DAILY PRN PRN 01/18/14 Surgical History: Surgical History (Last Reviewed 06/30/18 @ 15:48 by oJnny Key DO) History of incision and drainage (Chronic) Z98.890 Left side of neck 12/02/17, RIGHT BREAST ABSCESS 09/17/2014, LEFT BREAST ABSCESS 10/11/2014, INGUINAL HYDRADENITIS, AXILLARY HYDRADENITIS History of section (Acute) Z98.891 History of tonsillectomy (Acute) Z98.890, Z90.89 Hidradenitis L73.2 EXCISION LEFT INGUINAL HIDRADENITIS AND PLACEMENT OF WOUND VAC (121 CM2) 02/05/2009, EXCISION RIGHT AXILLARY HIDRADENITIS AND PLACEMENT OF WOUND VAC (36 CM2) 12/08/2009, EXCISIONAL DEBRIDEMENT HIDRADENITIS POSTERIOR NECK (33 CM2) 04/25/2014, EXCISIONAL DEBRIDEMENT NONHEALING HIDRADENITIS WOUND POSTERIOR NECK WITH 10 CM SECONDARY WOUND CLOSURE 05/15/2014,INCISION AND DRAINAGE AND EXCISIONAL DEBRIDEMENT NONHEALING POSTOP INFECTED HIDRADENITIS ULCER POSTERIOR NECK (20 CM2) AND DEBRIDEMENT PARTIAL THICKNESS BURN SUPEROPOSTERIOR NECK(16 CM2) 06/26/2014, SURGICAL PREPARATION, LEFT AXILLA WITH EXCISION HIDRADENITIS (88 SQ CM) AND SURGICAL PREPARATION, RIGHT MEDIAL LEG WITH EXCISON NONHEALING DIABETIC ULCER RIGHT MEDIAL LEG AND 4 CM COMPLEX SECONDARY WOUND CLOSURE 01/20/2016, EXCISIONAL DEBRIDEMENT LEFT AXILLARY HIDRADENITIS WOUND WITH FTSG RECONSTRUCTION FROM THE RIGHT LATERAL ABDOMINAL WALL (55 CM2) AND PLACEMENT OF NPWT 02/12/2016, SURGICAL PREPARATION STERNUM CHEST WALL WOUND WITH INCISION AND DRAINAGE ABSCESS AND EXCISIONAL DEBRIDEMENT (14 CM2) 03/05/2016, CLOSURE STERNUM CHEST WALL OPEN ABSCESS WOUND WITH RHOMBOID TRANSPOSITION SKIN FLAP RECONSTRUCTION (24.5 CM2) AND SURGICAL PREPARATION RIGHT MEDIAL BREAST WITH INCISION AND DRAINAGE ABSCESS AND EXCISIONAL DEBRIDEMENT (28 CM2) 03/11/2016 [place] teeth removed K08.499 Surgical History: tonsillectomy, - Psychiatric History: Anxiety, Bipolar Smoking Status: Heavy Smoker (>10/day) Tobacco Use: Cigarettes Alcohol: None Drugs: None - *Family History Maternal Family History: Family History (Last Reviewed 06/30/18 @ 15:48 by Jonny Key DO) Grandmother Thyroid disorder Father Diabetes Heart disease Hypertension High cholesterol Mother Heart disease Hypertension High cholesterol History Items: Heart Disease, Hypertension, - Paternal Family History: Family History (Last Reviewed 06/30/18 @ 15:48 by Jonny Key DO) Grandmother Thyroid disorder Father Diabetes Heart disease Hypertension High cholesterol Mother Heart disease Hypertension High cholesterol History Items: Diabetes, Heart Disease, Hypertension Review of Systems Constitutional: Denies: Chills, Fever, Weight Change Eyes: Denies: Blurred vision, Double vision HEENT: Denies: Head Aches, Sinus Congestion, Sinus Drainage Cardiovascular: Denies: Chest Pain, Palpitations Respiratory: Denies: Cough, Shortness of breath at rest, Sputum production Gastrointestinal: Denies: Abdominal Pain, Nausea, Vomiting Genitourinary: Denies: Dysuria Musculoskeletal: Reports: - - Right hand pain Skin: Reports: - - Right hand erythema and swelling on the dorsum Neurological: Denies: Numbness, Tingling, Focal weakness Psychiatric: Denies: Anxiety, Depression Hematologic/ Lymphatic: Denies: Easy Bruising, Easy Bleeding, Hx of blood clot Comment: All review of systems are negative except as mentioned in the history of present illness and the other review of systems. VTE Information - Inpt Only VTE Present on Admission: No VTE Mechan Device Prophylaxis: None VTE Pharm Prophylaxis ordered?: Yes Patient Problems: Active and Suspected Problems (Last Updated 02/14/18 @ 14:17 by Shreya Rondon) Cellulitis of right hand (Acute) - Physical Exam General: Alert, Cooperative, No apparent distress HEENT: Atraumatic, Normocephalic Oral: Moist Mucosa, No Gingival or Mucosal Lesions/ Ulcerations Neck: No Nodes, Thyroid Normal Size and Texture Lungs: Clear to auscultation, Normal air movement, No rhonchi, No wheeze Cardiovascular: Regular rate, Regular Rhythm, Normal S1, Normal S2, No murmurs Abdomen: Bowel Sounds Present, Soft, Non Tender, Non-Distended, No Hepato-splenomegaly Extremities: No edema, No Calf Tenderness Skin: - - Some erythema on the dorsum of her right hand between her. Some swelling as well localized. No purulence could be expressed. Tender to palpation. Musculoskeletal: No Tenderness to Palpation of Joints or Extremities, No Muscle Wasting Psych/Mental Status: Normal Affect, Appropriate Vital Signs Temp Pulse Resp BP Pulse Ox 36.9 C 88 18 116/75 95 06/30/18 12:08 06/30/18 14:59 06/30/18 14:59 06/30/18 14:59 06/30/18 14:59 Oxygen Delivery Method Room Air Weight: 106.4 kg Body Mass Index (BMI) 39.0 Finger Stick Blood Glucose 239 Laboratory Tests Past 24 Hrs Assessment/Plan All Active Problems (Last Updated 02/14/18 @ 14:17 by Shreya Rondon) Cellulitis of right hand (Acute) Muscle spasms of neck (Acute) Abscess, scalp (Acute) Folliculitis (Acute) Diabetes mellitus type 2, uncontrolled (Acute) Unspecified open wound of unspecified part of neck, subsequent encounter (Acute) Unspecified open wound of unspecified part of head, subsequent encounter (Acute) Open wound involving head with neck, complicated (Acute) Abscess of neck (Acute) History of section (Acute) History of tonsillectomy (Acute) Cat scratch of left hand with infection (Acute) Cat scratch of right hand with infection (Acute) Cat scratch (Acute) Open wound of left axillary region (Acute) Abscess of sternal region (Acute) Open wound of chest wall, complicated (Acute) Abscess of breast (Acute) 1. Right hand cellulitis * Suspect secondary to the patient's cutting. Appears more like a staph infection than anything * Patient will be on vancomycin * Follow patient's response * Dr. Boswell be on consultation in case patient is to require surgery * Given the cat scratch will also add azithromycin 2. Hidradenitis suppurativa * Patient's had numerous surgeries, approximately 36 involving her axilla, breasts neck and groin * No acute issues at this time 3. Diabetes mellitus type 2 * Continue with her home medications and sliding scale 4. DVT prophylaxis: Moderate risk. Lovenox. Code Visit Inpatient E AND M: [id number] Init Hosp L2 06/30/18 1557 <Electronically signed by Jonny Key DO> Date Jonny Key DO Cosigner Signature: Date (if applicable) CC: Jonny Key DO; Aj Hope MD Signed EMERGENCY DEPARTMENT Observed: 06/30/2018 Status: F Source: [place] SUMMARY 3:39 PM [facility] REPOSITORY [facility] Medical Records Department [address] [facility] [place] [address] Emergency Department Summary 06/30/18 1326 MR#: [id number] Acct: [id number] Name: ROGER JIMENEZ Rep #: [id number] : 1985 32 From: Temo Stewart MD PCP: Aj Hope MD Status: REG ER - ER Visit Summary Date of Service: 06/30/18 Chief Complaint: Hand infection History of Present Illness: The patient is a 32 F with a right hand infection. This is from a cat scratch. She was seen by Dr. Boswell on June 26 and started on Augmentin. There was a remark in the note that she may need IV antibiotics and I AND D if the treatment does not work. The patient reports some mild increased redness and pain despite taking antibiotics. Denies fever or systemic symptoms. She has a history of hidradenitis suppurativa and has had a history of abscesses in the past. Physical Examination: Afebrile and vital signs unremarkable. Initial heart rate was 108. Nontoxic and in no acute distress. Right hand shows erythema, induration, and tenderness over the dorsal aspect near the webbing of the thumb. Good range of motion. Neurovascularly intact distally. No streaking or tracking of the erythema. Test Results: Labs and cultures pending. Emergency Department Course and Treatment: Patient presents with a hand infection, possible abscess from a cat scratch. Failed outpatient treatment with Augmentin. IV access was obtained. The patient was treated with vancomycin and morphine. Labs and cultures are pending. Will contact the hospitalist for further care. Nursing notified me that they were unable to draw labs. Patient gave verbal consent to femoral sticks. I did clean the area. I was unable to palpate her pulse. I did localize her vessels with the ultrasound. Her veins are deep and small. I attempted multiple times bilaterally and could not draw blood. The lab is coming to evaluate the patient for blood draw. Treatment Plan: As above Disposition: Admission Impression: 1. Right hand infection This note was generated with [employer] dictation software. It may contain incorrect words, spelling, and punctuation that were not noted in review of the chart prior to signing ED Disposition - Plan for ED Patient: Chief Complaint: Cellulitis Referrals: Aj Hope MD [Primary Care Provider] - What to do if you have Problems For any increased pain, shortness of breath, bleeding, nausea or vomiting, chest pain, or any unexpected problems, contact your Primary Care Provider. Call [facility] [facility] ([phone]) or report to the closest Emergency Room. Call 911 if necessary. 06/30/18 1533 <Electronically signed by Temo Stewart MD> Date Temo Stewart MD Cosigner Signature (If Indicated): Date CC: Aj Hope MD Observed: 06/30/2018 Status: F Source: [place] CULTURE, URINE 3:24 PM [facility] REPOSITORY Order Date: 06/30/18 Has pt arrived? Y Urine Culture ORGANISM 1: Mixed Gram Positive Organisms [place] Count 25,000-50,000 MIX CULTURE Mixed contaminants. Submit a new specimen if indicated. Performed By: #### M100.0650 #### [facility] [address] [place], [address] CBC W/DIFF, AUTOMATED Collected: 06/30/2018 Status: F Source: [place] 2:45 PM [facility] REPOSITORY TYPE CODE TESTS RESULT OUT OF RANGE REFERENCE UNITS LAB L100.1000 4.4-11.0 K/mm3 Normal WBC 10.8 LAB L100.1200 4.2-5.4 M/mm3 Low RBC 3.78 LAB L100.1300 12.0-15.0 g/dl Low HGB 10.8 LAB L100.1400 37-47 % Low HCT 35.0 LAB L100.1500 81-99 fL Normal MCV 92.6 LAB L100.1600 27.0-32.0 pg Normal MCH 28.6 LAB L100.1700 32-36 g/gl Low MCHC 30.9 LAB L100.1810 11.6-14.6 % High RDW CV 15.1 LAB L100.1820 35.1-43.9 fl High RDW SD 51.6 LAB L100.1900 150-450 K/mm3 Normal PLT 363 LAB L100.2000 6.2-12.0 fl Normal MPV 9.3 LAB L100.2100 47-70 % Low NEUT% 41.2 LAB L100.2200 19-41 % Normal LY% 37.5 LAB L100.2300 0-10 % Normal MONO% 5.6 LAB L100.2400 0-5 % High EO% 14.8 LAB L100.2500 0-1 % Normal BASO% 0.8 LAB L100.2550 0.0-0.9 % Normal IM GRAN % 0.100 Result Comment: IG% - Immature Granulocytes (promyelocytes, myelocytes and metamyelocytes) > 1% indicates that a LEFT SHIFT is Present. LAB L100.2620 2.0-7.7 X10 3/uL Normal Absolute Neut 4.4 LAB L100.2720 0.83-4.51 X10 3/ul Normal Absolute Lymph 4.04 LAB L100.5500 ADEQ PLT Normal EST ADEQUATE LAB L100.7300 ANISO Normal RARE LAB L100.7800 Normal MACROCYTE RARE Performed By: #### L100.0100 #### [facility] [address] [place], [address] BASIC METABOLIC Collected: 06/30/2018 Status: F Source: [place] PROFILE (BMP) 2:45 PM [facility] REPOSITORY TYPE CODE TESTS RESULT OUT OF RANGE REFERENCE UNITS LAB L501.0100 74-106 mg/dL High GLU 150 Result Comment: Fasting Glucose result greater than or equal to 126 mg/dL suggests DIABETES MELLITUS per A.D.A. criteria. Please note revised GLUCOSE reference range effective 2017. LAB L501.1000 7-18 mg/dL Normal BUN 8 LAB L501.1100 0.55-1.02 mg/dL Normal CREAT,SERUM 0.74 Result Comment: The validity of the calculated GFR AND GFRAA in patients over 70 years has not been determined. Clinical correlation is essential. LAB L501.1110 >60 mL/min Normal EST GFR 96 Result Comment: Non- GFR Calc LAB L501.1115 >60 mL/min Normal EST GFR - AA 116 Result Comment: GFR Calc LAB L501.1255 ml/min Normal Estimated CRCL 97.30 LAB L501.1300 10-20 RATIO Normal BUN/CRE 10.9 LAB L501.2200 8.5-10 mg/dL Normal .1 CA 8.9 LAB L501.5300 136-14 mmol/L Normal 5 NA 141 LAB L501.5600 3.5-5. mmol/L Normal 1 K 4.2 LAB L501.5900 98-107 mmol/L Normal CL 106 LAB L501.6100 21.0-3 mmol/L Normal 2.0 CO2 27.0 LAB L501.6200 5-15 Normal GAP 8 Performed By: #### L500.2500 #### [facility] [address] [place], [address] ,SERUM,HCG QUALI. Collected: Status: F Source: [place] 06/30/2018 2:45 PM [facility] REPOSITORY TYPE CODE TESTS RESULT OUT OF REFERENCE UNITS RANGE LAB L700.6700 =>Qualitative mIU/mL Normal HCG Qual < 1 triggr LAB L700.7000 0-9 Nonpreg Negative Normal HCGSQUAL NEGATIVE Performed By: #### L700.6800 #### [facility] [address] [facility] [place], [address] Observed: 06/30/2018 Status: F Source: [place] CULTURE, BLOOD (WB) 2:45 PM [facility] REPOSITORY BC No growth in 5 days. Performed By: #### M200.1000 #### [facility] [address] [place], [address] HEMOGLOBIN A1C Collected: 06/21/2018 Status: F Source: [place] 9:50 AM [facility] REPOSITORY TYPE CODE TESTS RESULT OUT OF RANGE REFERENCE UNITS LAB L501.9985 4.2-6.3 % High HGB A1C 8.7 Performed By: #### L501.9985 #### [facility] [address] [facility] [place], [address] BASIC METABOLIC Collected: 06/21/2018 Status: F Source: [place] PROFILE (BMP) 9:50 AM [facility] REPOSITORY TYPE CODE TESTS RESULT OUT OF RANGE REFERENCE UNITS LAB L501.0100 74-106 mg/dL High GLU 208 Result Comment: Glucose result greater than or equal to 200 mg/dL suggests DIABETES MELLITUS per A.D.A. criteria. Please note revised GLUCOSE reference range effective 2017. LAB L501.1000 7-18 mg/dL Low BUN 5 LAB L501.1100 0.55-1.02 mg/dL Normal CREAT,SERUM 0.86 Result Comment: The validity of the calculated GFR AND GFRAA in patients over 70 years has not been determined. Clinical correlation is essential. LAB L501.1110 >60 mL/min Normal EST GFR 80 Result Comment: Non- GFR Calc LAB L501.1115 >60 mL/min Normal EST GFR - AA 97 Result Comment: GFR Calc LAB L501.1255 ml/min Normal Estimated CRCL 83.72 LAB L501.1300 10-20 RATIO Low BUN/CRE 5.8 LAB L501.2200 8.5-10 mg/dL Normal .1 CA 9.7 LAB L501.5300 136-14 mmol/L Low 5 NA 133 LAB L501.5600 3.5-5. mmol/L Normal 1 K 4.4 LAB L501.5900 98-107 mmol/L Normal CL 100 LAB L501.6100 21.0-3 mmol/L Normal 2.0 CO2 26.0 LAB L501.6200 5-15 Normal GAP 7 Performed By: #### L500.2500 #### [facility] [address] [place], [address] PLASTIC SURGERY Observed: 06/20/2018 Status: F Source: [facility] VISIT REPORT 4:14 PM [facility] REPOSITORY [facility] [address] [place] [address] OFFICE VISIT Date of Service: 05/31/18 MR#: [id number] Acct: [id number] Name: ROGER JIMENEZ Rep #: [id number] : 1985 Provider: Arias Boswell MD Age/Sex: 32/F Location: [facility] Status: Signed Intake Vital Signs05/31/18 Height 5 ft 5 in 05/31/18 Weight: 233 lb 6 oz Intake Visit Reasons: postop surgery 05/19/18 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 Accompanied by: None Is patient in pain?: Yes (NECK PAIN STABBING AND THROBBING) Pain scale (1-10): 8 Allergies lamotrigine [From Lamictal] Allergy (Mild, Verified 06/14/18 11:27) Rash adhesive tape Allergy (Verified 06/14/18 11:27) Rash Medications Buspirone HCl [Buspar] 20 mg PO TID 01/18/14 [History Confirmed 06/05/18] Clonidine HCl [Catapres] 0.1 mg PO DAILY 01/18/14 [History Confirmed 06/05/18] Duloxetine Hcl [Cymbalta] 90 mg PO DAILY 01/18/14 [History Confirmed 06/05/18] Metformin HCl [Glucophage] 1,000 mg PO BIDCM 01/18/14 [History Confirmed 05/23/18] Tizanidine HCl [Zanaflex] 4 mg PO 4X/DAY 01/18/14 [History Confirmed 06/05/18] glipiZIDE [Glucotrol] 15 mg PO DAILY@0730 01/18/14 [History Confirmed 06/05/18] Quetiapine Fumarate [Seroquel XR] 800 mg PO QHS 04/25/14 [History Confirmed 06/05/18] Meloxicam [Mobic] 7.5 mg PO DAILY 01/14/16 [History Confirmed 06/05/18] Spironolactone [Aldactone] 100 mg PO DAILY 01/14/16 [History Confirmed 06/05/18] Norgestrel-Ethinyl Estradiol [Cryselle-28 Tablet] 1 tab PO DAILY 01/20/16 [History Confirmed 06/05/18] Bluejacket Carbonate [Bluejacket Carbonate ER] 300 mg PO BID 05/10/16 [History Confirmed 06/05/18] gabapentin 300 mg capsule 300 mg PO 4X/DAY cap 12/01/17 [History Confirmed 06/05/18] Lubiprostone [Amitiza] 24 mcg PO BID 01/16/18 [History Confirmed 06/05/18] Omeprazole [Prilosec] 20 mg PO DAILY 01/16/18 [History Confirmed 06/05/18] insulin aspart U-100 100 unit/mL subcutaneous solution See Label Instructions SC TID ml 02/14/18 [History Confirmed 06/05/18] insulin glargine (U-100) 100 unit/mL subcutaneous solution 10 unit SC QHS 02/14/18 [History Confirmed 06/05/18] Albuterol Aerosols [Ventolin Aerosols] 2.5 mg INHALATION Q2H PRN PRN vial.neb. 05/21/18 [Rx Confirmed 06/05/18] Gauze Bandage [Gauze Pads] 4 bandage TP .QDAILY #120 bandage 05/21/18 [Rx Confirmed 05/23/18] HYDROmorphone tablet [Dilaudid] 2 - 4 mg PO 4X/DAY PRN PRN 7 Days #60 tab 05/21/18 [Rx Confirmed 06/05/18] Insulin Lispro [Humalog KwikPen] See Protocol SC TIDAC insuln.pen 05/21/18 [Rx Confirmed 06/05/18] proMETHazine tablet [Phenergan tablet] 25 mg PO 4X/DAY PRN PRN #30 tab 05/21/18 [Rx Confirmed 06/05/18] diazepam 5 mg tablet 5 mg PO 4X/DAY PRN #30 tab 05/31/18 [Rx Confirmed 06/05/18] diazepam 5 mg tablet 5 mg PO 4X/DAY PRN #30 tab 06/14/18 [Rx Confirmed 06/14/18] hydromorphone 2 mg tablet See Label Instructions PO 4X/DAY PRN #40 tab 06/14/18 [Rx Confirmed 06/14/18] hydromorphone 2 mg tablet See Label Instructions PO 4X/DAY PRN #60 tab 06/20/18 [Rx Confirmed 06/20/18] PFSH Medical History Cat scratch of left hand with infection (Acute) Cat scratch of right hand with infection (Acute) Cat scratch (Acute) Diabetes (Chronic) Hydradenitis (Chronic) Morbid obesity (Chronic) Bipolar affective (Chronic) Osteoarthritis (Chronic) Chronic back pain (Chronic) Diabetic leg ulcer (Chronic) Non-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 fat layer exposed (Chronic) Smoker (Chronic) Open wound of left axillary region (Acute) Skin graft failure (Chronic) Abscess of sternal region (Acute) Open wound of chest wall, complicated (Acute) H/O hidradenitis suppurativa (Chronic) Abscess of breast (Acute) Alcohol abuse (Acute) Anxiety and depression (Acute) Asthma (Acute) Back problem (Acute) Drug abuse (Acute) Frequent headaches (Acute) GERD (gastroesophageal reflux disease) (Acute) Hay fever (Acute) Hearing problem (Acute) Hidradenitis (Acute) High triglycerides (Acute) Hyperlipidemia (Acute) Kidney problem (Acute) Neuropathy (Acute) Non-healing surgical wound (Acute) Osteoarthritis (Acute) Partial thickness burn (Acute) Recurrent UTI (Acute) Sinus problem (Acute) Vision problem (Acute) HTN (hypertension) (Chronic) Surgical History History of incision and drainage (Chronic) History of section (Acute) History of tonsillectomy (Acute) Hidradenitis (Acute) [place] teeth removed (Acute) Family History Grandmother Thyroid disorder Father Diabetes Heart disease Hypertension High cholesterol Mother Heart disease Hypertension High cholesterol Social History household members: family, children number of children: 1 Smoking Status: Current every day smoker second hand exposure: No alcohol intake: former substance use type: former substance user what type of physical activity do you participate in: other seatbelt use: always do you feel safe at home: Yes additional social history: SUN EXPOSURE: OCCASIONALLY HPI postop surgery 05/19/18: Details: Postop visit from her recent surgery on 05/19/18 where she underwent surgical preparation posterior neck/occipital scalp with incision and drainage and excisional debridement recurrent hidradenitis abscess (31.5 cm2). She was discharged from the hospital on 05/21/18. Comes in today complaining of wound pain in her posterior neck/occipital scalp area. She denies fever. The wound is stable with some granulation tissue. Some exudate present. No evidence of infection. A Silver dressing change was done today without difficulty. Pathology was discussed with the patient. It showed focal ulceration associated with acute inflammation and focal bacterial colonization. Operative culture showed Staphylococcus epidermidis and sensitive to Cleocin. Encourage range of motion exercises to minimize neck stiffness. Will set up OT to assist. Encourage nutritional supplementation with protein to help the healing process. Discussed closure of the wound with a skin graft. I am anticipating about a month. Renewed her Dilaudid for pain (60 tabs) and her Valium for spasm (30 tabs). [facility]up [facility] on 06/[facility]/18. Assessment AND Plan Problems 1. Hidradenitis suppurativa L73.2 2. Abscess, scalp L02.811 3. Abscess of neck L02.11 4. Chronic neck pain M54.2; G89.29 5. Unspecified open wound of unspecified part of head, subsequent encounter S01.90XD 6. Unspecified open wound of unspecified part of neck, subsequent encounter S11.90XD 7. Diabetes E11.9 8. Smoker F17.200 Medications New: diazepam (Valium) may dispens5 mg PO 4X/DAY PRN spasm e on 06/04/18 hydromorphone (Dilaudid) 2-4 mg PO 4X/DAY PRN pain E11.9, F17.200, L02.11, L02.811, L73.2, M54.2, S01.90XD, S11.90X D Coding Level of Care Code Global Post Op Diagnoses Hidradenitis suppurativa L73.2 Abscess, scalp L02.811 Abscess of neck L02.11 Chronic neck pain M54.2; G89.29 Unspecified open wound of unspecified part of head, subsequent encounter S01.90XD Unspecified open wound of unspecified part of neck, subsequent encounter S11.90XD Diabetes E11.9 Smoker F17.200 06/20/18 1614 <Electronically signed by Arias Boswell MD> Date Arias Boswell MD Cosign Signature: Date (if applicable) CC: PETROS Observed: 06/16/2018 Status: COMPLETED Source: [facility] 12:00 AM [facility] RE[facility]IT[facility] ROGER JIMENEZ ([id number]) 1985 F Date Time Provider Department 06/16/18 AJ HOPE [facility] During your visit today, we recorded the following information about you: Bruna Joe RN, RN 06/16/2018 2:35 PM Signed Lucretia [employer] department chair for my care the pt insurance did an assessment this week and if provider had any important or information to please contact Lucretia @ [phone] Also Lucretia wanted the provider to know pt had another skin abscess removed in the last 6 month. Aj Hope MD 06/16/2018 2:50 PM Signed noted Allergies As of Date: 06/16/2018 Noted Allergy Reaction ADHESIVE TAPE (ROSINS) 02/03/2010 2 - Rash Date Reviewed: 05/05/2018 Reviewed by: Annabel Xie RN - Fully Assessed Reason for Visit: Patient Update [1234] Order(s):HEMOGLOBIN A1C (EXTERNAL) [6743529] Order #: [id number] Prescriptions as of 06/16/2018 Sig: METFORMIN 1,000 MG TABLET TAKE 1 TABLET BY MOUTH TWICE * SPIRONOLACTONE 100 MG TABLET TAKE 1 TABLET BY MOUTH DAILY ATORVASTATIN 20 MG TABLET TAKE 1 TABLET BY MOUTH AT BED* MELOXICAM 7.5 MG TABLET TAKE 1 TABLET DAILY TIZANIDINE 4 MG TABLET TAKE 1 TABLET BY MOUTH EVERY * GABAPENTIN 300 MG CAPSULE TAKE 1 CAPSULE FOUR TIMES A D* OMEPRAZOLE 20 MG CAPSULE,DIONISIO* TAKE 1 CAPSULE BY MOUTH DAILY* GLIPIZIDE 10 MG TABLET TAKE 1 TABLET EVERY MORNING A* LACTOBACILLUS ACIDOPHILUS 10 * Take 1 capsule by mouth twice* BENZONATATE 100 MG CAPSULE Take 1 capsule by mouth three* ALBUTEROL SULFATE HFA 90 MCG/* Inhale 2 Puffs as instructed * CETIRIZINE 10 MG TABLET Take 1 tablet by mouth once d* FLUTICASONE 50 MCG/ACTUATION * Use 1 [place] in each nostril t* INSULIN ASPART U-100 100 UNI* 4 Units with meals In additi* INSULIN GLARGINE (U-100) 100 * Inject 10 Units subcutaneousl* AMITIZA 24 MCG CAPSULE TAKE 1 CAPSULE BY MOUTH TWICE* BLOOD SUGAR DIAGNOSTIC STRIPS Use as instructed, Testing 4 * PEN NEEDLE, DIABETIC 32 GAUGE* Use one needle for each dose.* CRYSELLE (28) 0.3 MG-30 MCG T* TAKE 1 TABLET DAILY *TAKE AC* BLOOD-GLUCOSE METER 1 Device three times daily as* BLOOD SUGAR DIAGNOSTIC STRIPS Use as instructed, E11.9, jonh* LANCETS E11.9, testing 2 to 3 times a* LITHIUM CARBONATE 300 MG CAPS* Take 300 mg by mouth twice da* BLOOD SUGAR DIAGNOSTIC STRIPS E11.9, testing 2-3 times a da* MOMETASONE 110 MCG (30 DOSES)* Inhale 1 Puff as instructed t* DULOXETINE 30 MG CAPSULE,DIONISIO* Take 1 capsule by mouth once * ALBUTEROL SULFATE HFA 90 MCG/* Inhale 2 Puffs as instructed * BUSPIRONE 10 MG TABLET Take 2 tablets by mouth three* * CLONIDINE HCL 0.1 MG TABLET Take 0.1 mg by mouth once baljeet* * DULOXETINE 60 MG CAPSULE,DIONISIO* Take 1 capsule by mouth once * * QUETIAPINE ER 400 MG TABLET,E* Take 800 mg by mouth daily at* BLOOD-GLUCOSE METER KIT 1 Each as needed. Problem List As Of Date 06/16/2018 Noted Resolved Supervision of normal first [Z34.00] INVALID FOR*06/16/2012 Bipolar disorder (HCC) [F31.9] More... Asthma [J45.909] More... TOBACCO USE DISORDER [F17.200] More... Overweight [E66.3] More... SCIATICA [M54.30] INVALID FOR* FATTY LIVER [K76.89] INVALID FOR* More... Cellulitis and abscess of trunk [L03.319, L02.2*INVALID FOR*07/13/2013 Other acne [L70.8] INVALID FOR*03/11/2017 HIDRADENITIS/SUPPURATIVA [L73.2] INVALID FOR*07/13/2013 Scar condition and fibrosis of skin [L90.5] INVALID FOR*03/11/2017 Sebaceous cyst [L72.3] INVALID FOR*03/11/2017 NO SHOW [772064] INVALID FOR*03/28/2009 Cannabis dependence, continuous [F12.20] INVALID FOR*07/13/2013 More... Opioid abuse, episodic [F11.10] INVALID FOR* Priority: Very Severe Class: Chronic More... Bipolar disorder (HCC) [F31.9] INVALID FOR*03/11/2017 Diabetes mellitus [E11.9] INVALID FOR* Constipation [K59.00] 03/11/2017 Hidradenitis suppurativa [L73.2] INVALID FOR* Cystic acne vulgaris [L70.0] INVALID FOR* Scars [L90.5] INVALID FOR*03/11/2017 Postinflammatory skin changes [R23.4] INVALID FOR*03/11/2017 Left breast abscess [N61.1] INVALID FOR*03/11/2017 Obesity, Class III, BMI 40-49.9 (morbid obesity*INVALID FOR* Encounter Status:Closed by AJ HOPE MD on 06/16/18 EMERGENCY DEPARTMENT Observed: 05/23/2018 Status: F Source: [facility] SUMMARY 11:36 PM [facility] REPOSITORY [facility] Medical Records Department [address] [place] [address] Emergency Department Summary 05/23/18 1632 MR#: [id number] Acct: [id number] Name: ROGER JIMENEZ Rep #: [id number] : 1985 32 From: Temo Spencer DO PCP: Aj Hope MD Status: DEP ER - ER Visit Summary Date of Service: 05/23/18 Chief Complaint: Patient presents with a chief complaint History of Present Illness: The patient is a 32 F states that on May 20 she had a incision and drainage by Dr. robinson Garcia for hidradenitis supra view of the neck. Cultures grew out Staphylococcus epidermidis. She is on clindamycin. Patient states that home health came out to her place today and noted that she had a fever of 102 and administered 400 mg of Advil. The patient states that she has a cough with sputum production. She does not feel significantly short of breath. She has not moved her bowels but is passing gas. She notes a long history of constipation and states that her abdomen does not feel bad. Physical Examination: Temperature 99 degrees blood pressure 147/77 heart rate 114 respirations are 18 pulse ox is 95% on room air Gen: Well-nourished well-developed Head: Normocephalic atraumatic Eyes: Perrl EOMI ENT: TMs clear no rhinorrhea moist mucous membranes Neck: Supple no lymphadenopathy no JVD healing incision and drainage site with no significant erythema CVS: Regular rate and tachycardic rhythm no murmurs normal S1-S2 Respiratory: No distress bilateral wheezing and rhonchi chest nontender Abdomen: Soft nontender nondistended normal bowel sounds no masses Back: Nontender Extremity: Nontender no edema Skin: Normal color no rash Neuro: alert orientated 3 CN II-XII intact normal strength sensation reflexes gait cerebellar Psych: Normal affect normal mood Test Results: White count is 9.5 hemoglobin 11.2. Glucose of 352. Urinalysis normal. Blood cultures obtained. Chest x-ray shows changes consistent with atelectasis and reactive airway. Emergency Department Course and Treatment: Patient received breathing treatments as well as Motrin. I believe the source is her lungs and not pneumonia. Patient is encouraged to get up and move around. I would encourage fever control with Tylenol and Motrin. Patient should use her aerosols every 2-4 hours. Return if worsening or concerns. Impression: 1. Postoperative fever 2. Atelectasis This note was generated with [employer] dictation software. It may contain incorrect words, spelling, and punctuation that were not noted in review of the chart prior to signing ED Disposition - Plan for ED Patient: Disposition: Home or Assisted Living Chief Complaint: Fever Instructions: ED Atelectasis Referrals: Arias Boswell MD [STAFF PHYSICIAN] - Keep [facility] appointment Additional Instructions: Treat your fever with 1000 mg of Tylenol and or 800 mg of Motrin every 6 hours. It would appear your fever is coming from your lungs which is most likely atelectasis. Encourage getting up and moving. Use albuterol aerosols every 2-4 hours to help improve aeration of the lungs Return if worsening or concerns. What to do if you have Problems For any increased pain, shortness of breath, bleeding, nausea or vomiting, chest pain, or any unexpected problems, contact your Primary Care Provider. Call [facility] ([phone]) or report to the closest Emergency Room. Call 911 if necessary. 05/23/18 2336 <Electronically signed by Temo Spencer DO> Date Temo Spencer DO Cosigner Signature (If Indicated): Date CC: Aj Hope MD Observed: 05/23/2018 Status: F Source: [facility] CULTURE, BLOOD (WB) 5:20 PM [facility] REPOSITORY BC No growth in 5 days. Performed By: #### M200.1000 #### [facility] [address] [place], [place], [id number] URINALYSIS, COMPLETE Collected: 05/23/2018 Status: F Source: [facility] 5:10 PM [facility] REPOSITORY Order Comment: How was Urine Obtained? CLEAN CATCH TYPE CODE TESTS RESULT OUT OF RANGE REFERENCE UNITS LAB L400.3000 Yellow COLOR Normal Yellow LAB L400.3050 Clear Normal CLARITY Clear LAB L400.3200 Normal mg/dl High GLUCOSE, UR 1000 LAB L400.3300 Negative mg/dL Normal BILIRUBIN URINE Negative LAB L400.3400 Negative mg/dl Normal KETONE UR Negative LAB L400.3465 1.002-1.030 Normal SP.GR. DIPSTX 1.005 LAB L400.3550 5.0 - 8.0 pH UR Normal 7.0 LAB L400.3600 Negative mg/dl PROT Normal DIPSTX Negative LAB L400.3700 Normal mg/dl Normal UROBILI Normal LAB L400.3750 Negative Normal NITRITE UR Negative LAB L400.3780 Negative /ul Normal OCCULT BLOOD-UR Negative LAB L400.3800 Negative /ul LEUK Normal ESTERASE Negative LAB L400.4050 0-5 /hpf WBC 0 Normal SEEN LAB L400.4100 0-5 /hpf 0 Normal RBC-UA SEEN LAB L400.4150 5-10 /hpf SQUAM Normal EPI 0-5 SEEN LAB L400.4300 None Seen /hpf 0 Normal BACTERIA SEEN LAB L400.4350 <or=2+ /hpf 0 Normal MUCUS, URINE SEEN Performed By: #### L400.0001 #### [facility] [address] [place], [address] CBC W/DIFF, AUTOMATED Collected: 05/23/2018 Status: F Source: [facility] 5:10 PM [facility] REPOSITORY TYPE CODE TESTS RESULT OUT OF RANGE REFERENCE UNITS LAB L100.1000 4.4-11.0 K/mm3 Normal WBC 9.5 LAB L100.1200 4.2-5.4 M/mm3 Low RBC 3.72 LAB L100.1300 12.0-15.0 g/dl Low HGB 11.2 LAB L100.1400 37-47 % Low HCT 35.3 LAB L100.1500 81-99 fL Normal MCV 94.9 LAB L100.1600 27.0-32.0 pg Normal MCH 30.1 LAB L100.1700 32-36 g/gl Low MCHC 31.7 LAB L100.1810 11.6-14.6 % High RDW CV 14.9 LAB L100.1820 35.1-43.9 fl High RDW SD 52.0 LAB L100.1900 150-450 K/mm3 Normal PLT 285 LAB L100.2000 6.2-12.0 fl Normal MPV 9.8 LAB L100.2100 47-70 % Normal NEUT% 60.6 LAB L100.2200 19-41 % Normal LY% 29.1 LAB L100.2300 0-10 % Normal MONO% 6.1 LAB L100.2400 0-5 % Normal EO% 3.2 LAB L100.2500 0-1 % Normal BASO% 0.4 LAB L100.2550 0.0-0.9 % Normal IM GRAN % 0.600 Result Comment: IG% - Immature Granulocytes (promyelocytes, myelocytes and metamyelocytes) > 1% indicates that a LEFT SHIFT is Present. LAB L100.2620 2.0-7.7 X10 3/uL Normal Absolute Neut 5.7 LAB L100.2720 0.83-4.51 X10 3/ul Normal Absolute Lymph 2.75 Performed By: #### L100.0100 #### [facility] [address] [place], [address] COMPREHENSIVE METABOLIC Collected: 05/23/2018 Status: F Source: [facility] 5:10 PM [facility] REPOSITORY TYPE CODE TESTS RESULT OUT OF RANGE REFERENCE UNITS LAB L501.0100 74-106 mg/dL High GLU 352 Result Comment: Glucose result greater than or equal to 200 mg/dL suggests DIABETES MELLITUS per A.D.A. criteria. Please note revised GLUCOSE reference range effective 2017. LAB L501.1000 7-18 mg/dL Normal BUN 7 LAB L501.1100 0.55-1.02 mg/dL Normal CREAT,SERUM 0.90 Result Comment: The validity of the calculated GFR AND GFRAA in patients over 70 years has not been determined. Clinical correlation is essential. LAB L501.1110 >60 mL/min Normal EST GFR 77 Result Comment: Non- GFR Calc LAB L501.1115 >60 mL/min Normal EST GFR - AA 93 Result Comment: GFR Calc LAB L501.1255 ml/min Normal Estimated CRCL 80.00 LAB L501.1300 10-20 RATIO Low BUN/CRE 7.8 LAB L501.1500 6.4-8. g/dL Normal 2 T PROT 7.4 LAB L501.1800 3.2-5. g/dL Normal 0 ALB 3.5 LAB L501.1950 2.2-4. g/dL Normal 2 GLOB 3.9 LAB L501.2000 0.9-2. RATIO Normal 4 A/G 0.9 LAB L501.2200 8.5-10 mg/dL Normal .1 CA 8.6 LAB L501.4100 15-37 U/L Normal AST 20 LAB L501.4305 45-117 U/L Normal ALK P 103 LAB L501.4405 13-56 U/L Normal ALT 24 LAB L501.4600 0.20-1 mg/dL Normal .00 T BILI 0.20 LAB L501.5300 136-14 mmol/L Normal 5 NA 137 LAB L501.5600 3.5-5. mmol/L Normal 1 K 4.1 LAB L501.5900 98-107 mmol/L Normal CL 99 LAB L501.6100 21.0-3 mmol/L Normal 2.0 CO2 32.0 LAB L501.6200 5-15 Normal GAP 6 Performed By: #### L500.4050 #### [facility] [address] [place], [address] Observed: 05/23/2018 Status: F Source: [facility] CULTURE, BLOOD (WB) 5:10 PM [facility] REPOSITORY BC No growth in 5 days. Performed By: #### M200.1000 #### [facility] [address] [place], [address] CHEST PA AND LATERAL Observed: 05/23/2018 Status: F Source: [facility] 4:30 PM [facility] REPOSITORY [facility] Imaging Services [address] [place] [id number] Chest PA and Lateral MR#: [id number] Acct: [id number] Name: ROGER JIMENEZ Rep #: [id number] : 1985 F 32 From: Roly Candelario MD PCP: Aj Hope MD Status: REG ER Study: Chest PA and Lateral Date of Exam: 05/23/18 Exam# [id number] Ordering Dr: Temo Spencer DO STUDY: X-RAY CHEST REASON FOR EXAM: Female, 32 years old. Neck surgery several days ago, fever today. TECHNIQUE: PA and lateral views of the chest. COMPARISON: Prior study of January 16, 2018 FINDINGS: There is right perihilar peribronchial cuffing. There is a small left-sided effusion. Normal size heart. Normal mediastinum and true. Normal visualized pulmonary arteries. Normal visualized aortic arch and descending thoracic aorta. Normal visualized thoracic spine. Normal visualized ribs, clavicles, and shoulders. There is no demonstrated abnormality of the visualized soft tissue structures of the upper abdomen. RAD/Chest PA and Lateral IMPRESSION: Right perihilar peribronchial cuffing which may be associated with bronchitis or bronchospastic disease. This represents a new interval finding. Small left-sided effusion. Is no evidence of tony infiltrate or atelectasis. 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 4 cm recurrent hidradenitis abscess posterior neck and occipital scalp. 2. Chronic neck pain. 3. Smoker. 4. Diabetes mellitus. Post-Operative Diagnosis: Same. Surgery/Procedure Performed:: Surgical preparation posterior neck/occipital scalp with incision and drainage and excisional debridement recurrent hidradenitis abscess (31.5 cm2). Description of Surgical Findings:: 32 year old woman presents with increasing redness and pain and swelling on her posterior neck and occipital scalp area. She has had hidradenitis in this area in the past that was excised and skin grafted in 2013. She states she has pain with movement of her neck. She denies any fever. She denies any trauma. She denies any drainage. She has a history of chronic neck pain and her neck xray was normal. She also has persistent numbness in her thumb and index finger bilaterally. After her neck hidradenitis is treated, will proceed with NCV studies to evaluate for carpal tunnel syndrome. Patient was informed of the risks and complications of the procedure including alternatives to surgery. These were discussed with the patient personally. Patient voices understanding and wishes to proceed. Some of the risks and complications were included in a form from the [employer]. Encouraged the patient to stop smoking as it may have deleterious effects on wound healing. Size of defect posterior neck/occipital scalp - 9 x 3.5 x 2 cm. accounts specialist: None Type of Anesthesia:: General Specimen's removed: 1. Recurrent hidradenitis abscess posterior neck/occipital scalp to Pathology and Microbiology. 2. MRSA Wound DNA by PCR. Drains: None. Estimated Blood Loss (mL): 25 ml. Description of Procedure: Patient was taken to OR in supine position and was placed under general anesthesia. She was then placed in the supine position. Her posterior neck and occipital scalp were prepped and draped in the usual fashion. SCD's were placed for DVT prophylaxis. Perioperative antibiotics were given intravenously. Using xylocaine with epinephrine, the recurrent hidradenitis abscess was infiltrated. After waiting 5 minutes for the anesthetic to take effect, I proceeded with incision and drainage of her recurrent hidradenitis abscess. There was a lot of fat necrosis present. No gross pus was seen. Extensive scar tissue was present indicative of chronic recurrent infections. The fat necrosis extended to the underlying muscular fascia. Some of the fascia was inflamed and debrided. The underlying muscle appeared viable. No necrotizing process was seen at this time. The surrounding induration and fat necrosis was sharply excised and debrided to open up the wound to make it easier for the wound care. Some of the tissue was sent to Microbiology for culture. A positive culture will necessitate antibiotic therapy. The rest of the tissue was sent to Pathology for analysis to rule out carcinoma. MRSA Wound DNA by PCR was also sent. The wound was irrigated with saline. Hemostasis was obtained with electrocautery. The size of the defect after incision and drainage and excisional debridement was 9 x 3.5 x 2 cm or 31.5 cm2. The wound was packed with Mepitel nonadherent dressing followed by Kerlix gauze and Betadine followed by dry Kerlix gauze and an ABD pad for a compression dressing. Patient tolerated the procedure well and was sent to PACU in satisfactory condition. She will be sent upstairs for a surgical observation overnight stay in the hospital. Once she is tolerating po analgesia with the dressing changes, then she will be discharged. I anticipate 1-2 days. Will begin Silver dressing changes tomorrow. After discharge will followup at the [facility]. While there, will monitor the healing of the wound and to decide on delayed closure with skin grafting. Grafts/Implants Used: None. - Complications None. - Admit VTE Documentation VTE Present on Admission: No VTE Mechan Device Prophylaxis: SCD's VTE Pharm Prophylaxis ordered?: No Code Visit Surgery Charges CPT - 28820 ICD-10 - L02.11, L02.811, L73.2, E11.9, M54.2, F17.200 48369 S01.90xA, L02.11, L02.811, L73.2, E11.9, M54.2, F17.200 05/22/18 0127 <Electronically signed by Arias Boswell MD> Date Arias Boswell MD CC: Tran Sellers [employer]CEL [employer] WEIGHER; Laura Sandoval; Arias Boswell MD; Aj Hope MD; [facility] Signed HISTORY AND PHYSICAL Observed: 05/21/2018 Status: F Source: [facility] EXAM 10:52 PM [facility] REPOSITORY [facility] Medical Records Department [address] [place] [address] History and Physical 05/18/18 1837 MR#: [id number] Acct: [id number] Name: ROGER JIMENEZ Rep #: [id number] : 1985 32 From: Arias Boswell MD PCP: Aj Hope MD Status: DIS SONALI Y Location: MS3 NV649-8 History and Physical Date of Admission: 05/19/18 HISTORY OF PRESENT ILLNESS 32 year old woman presents with increasing redness and pain and swelling on her posterior neck and occipital scalp area. She has had hidradenitis in this area in the past that was excised and skin grafted in 2013. She states she has pain with movement of her neck. She denies any fever. She denies any trauma. She denies any drainage. She has a history of chronic neck pain and her neck xray was normal. She also has persistent numbness in her thumb and index finger bilaterally. After her neck hidradenitis is treated, will proceed with NCV studies to evaluate for carpal tunnel syndrome. She presents at this time for further evaluation and treatment. PAST MEDICAL HISTORY: 1. Arthritis. 2. Asthma. 3. Back pain. 4. Alcohol abuse. 5. Drug abuse. 6. Frequent headaches. 7. Hay fever. 8. Hypertension. 9. Kidney problems. 10. Bipolar disorder. 11. Persistent cough. 12. Sinus problems. 13. Tonsillitis. 14. Left inguinal hidradenitis. 15. Right axillary hidradenitis. 16. Posterior neck hidradenitis. 17. Diabetes mellitus. 18. Right breast abscess. 19. Left breast abscess. 20. Non-healing diabetic ulcer, dorsal medial aspect, right foot. 21. Left axillary hidradenitis. 22. Non-healing diabetic ulcer, right medial leg. 23. Sternal chest wall abscess wound. 24. Abscess, right medial breast. 25. Cat scratch infection abscess dorsum right hand with extension to long finger. 26. Inflammatory extensor tenosynovitis dorsum right hand with extension to long finger. 27. Cat scratch infection abscess dorsum left hand at proximal index finger. 28. Inflammatory extensor tenosynovitis dorsum left hand at proximal index finger. 29. Smoker. PAST SURGICAL HISTORY: 1. Tonsillectomy. 2. . 3. [place] teeth removal. 4. Incision and drainage of inguinal hidradenitis. 5. Incision and drainage of axillary hidradenitis. 6. Excision of left inguinal hidradenitis and placement of wound VAC (21cm2) on February 05, 2009. 7. Excision of right axillary hidradenitis and placement of wound VAC (36cm2) on December 08, 2009. 8. Excisional debridement of hidradenitis, posterior neck (33 cm2) on April 25, 2014. 9. Excisional debridement of non-healing hidradenitis wound, posterior neck, with 10 cm secondary wound closure on May 15, 2014. 10. Incision and drainage and excisional debridement of non- healing postop infected hidradenitis ulcer, posterior neck (20cm 2), and debridement of partial-thickness, right superior-posterior neck (16cm 2) on June 26, 2014. 11. Incision and drainage, right breast abscess, September 17, 2014. 12. Incision and drainage of left breast abscess, October 11, 2014. 13. Surgical preparation, left axilla with excision of hidradenitis (88cm2) and surgical preparation, right medial leg, with excision of non-healing diabetic ulcer, right medial leg, and 4 cm complex secondary wound closure on January 20, 2016. 14. Excision debridement of left axillary hidradenitis wound with full-thickness skin graft reconstruction from the right lateral abdominal wall (5cm2) and placement of NPWT on February 12, 2016. 15. Surgical preparation, sternum chest wall wound, with excision and drainage of abscess and excisional debridement (14cm2) on March 05, 2016. 16. Closure of sternum chest wall open abscess wound with rhomboid transposition skin flap reconstruction (24.5cm 2). 17. Surgical preparation, right medial breast, with incision and drainage of abscess and excisional debridement (28cm2) on March 11, 2016. 18. surgical preparation right axilla with excision hidradenitis (48 cm2) - 02/03/17 19. surgical preparation dorsum right hand with extension to long finger with incision and drainage and excisional debridement cat scratch infection (4 cm2) and incision and drainage tendon sheath for extensor tenosynovitis dorsum right hand with extension to long finger and surgical preparation dorsum left hand at proximal index finger with incision and drainage and excisional debridement cat scratch infection (2 cm2) and incision and drainage tendon sheath for extensor tenosynovitis dorsum left hand at proximal index finger - 03/22/17 20. Surgical preparation dorsum left hand at proximal index finger with excisional debridement cat scratch infection ulcer with proximal and distal advancement skin flaps reconstruction - 05/20/17 21. I AND D abscess left postauricular area - 12/02/17 MEDICATIONS: Buspirone, Clonidine, Duloxetine, Neurontin, Glipizide, Insulin, Bluejacket, Lubiprostone, Meloxicam, Metformin, Norgestrel Ethinyl Estradiol, Omeprazole, Quetiapine, Spironolactone, Tizanidine. ALLERGIES: None. SOCIAL HISTORY: The patient smokes. The patient does not drink alcohol. She does have a history of drug abuse and alcohol abuse. FAMILY HISTORY: Negative for skin cancer. Positive for lung disease, hypertension, asthma, thyroid disease, heart disease, kidney disease, seizures, cancer, and diabetes. REVIEW OF SYSTEMS: GENERAL: Complains of fatigue. Denies fever and weight loss. Has history of alcohol abuse and drug abuse. EYES: Denies eye pain. ENT: Denies nasal congestion and sore throat. CARDIOVASCULAR: Has fatigue. Denies chest pain, lightheadedness, and shortness of breath with exertion. RESPIRATORY: Complains of cough and shortness of breath. The patient is a smoker. Does have asthma. GI: Denies nausea, vomiting, diarrhea, or constipation. : Denies hematuria and urinary frequency. MUSCULOSKELETAL: Complains of joint pain, back pain, and arthritis. Denies stiffness, muscle weakness, and gout. Has symptoms of bilateral carpal tunnel syndrome with numbness in thumb and index fingers. INTEGUMENTARY: Denies skin cancer. Has recurrent hidradenitis posterior neck and occipital scalp. Had recent flare-up of right axillary hidradenitis that required surgical excision on 02/03/17. Had recent I AND D of left postauricular abscess on 12/02/17. Has new onset folliculitis left occipital hairline. NEURO: Denies headaches. Denies poor balance and weakness. PSYCH: Denies anxiety and depression. Has bipolar disorder. ENDOCRINE: Denies excessive thirst or urination. Has diabetes mellitus. HEMATOLOGIC: Denies abnormal bruising and fevers. PHYSICAL EXAMINATION: HEENT: Pupils equal, round, and reactive to light. Extraocular muscles intact. Throat is clear. In the left post-auricular area was an open surgical wound after I AND D of abscess that has healed. No further evidence of infection at this time. NECK: Supple. No bony tenderness. Has an area of redness, tenderness, and swelling in the posterior neck and occipital scalp. Located just superior to previous excision of hidradenitis and skin grafting. Measures 4 cm. No purulent drainage. No cervical adenopathy. LUNGS: Clear to auscultation. HEART: Regular rate and rhythm. ABDOMEN: Soft and nontender. Right lateral abdominal wall donor incision is healing well. BREASTS: Breasts are soft. No masses palpable. No evidence of recurrent infection. No axillary adenopathy. EXTREMITIES: No clubbing, cyanosis, or edema. On the left axillary area is a healed skin graft. In the right axilla is a healed ulcer. No axillary adenopathy noted bilaterally. On the right hand there is decreased sensation to pinprick to thumb and index finger. No thenar muscle atrophy. Positive Tinel's sign. Positive Phalen's sign. Fingers are warm with good capillary refill. On the left hand there is decreased sensation to pinprick to thumb and index finger. No thenar muscle atrophy. Positive Tinel's sign. Positive Phalen's sign. Fingers are warm with good capillary refill. Radial pulses are palpable. No elbow tenderness. Negative Tinel's at the elbow. NEURO: Cranial nerves II through XII grossly intact. Some paresthesias in the thumb and index finger bilaterally. ASSESSMENT 1. 4 cm recurrent hidradenitis abscess posterior neck and occipital scalp. 2. Bilateral carpal tunnel syndrome, worse on the left. 3. Chronic neck pain. 4. Smoker. 5. Diabetes mellitus. PLAN: Will start her on Cleocin and Diflucan. She needs operative incision and drainage of this recurrent infection with excision of the residual hidradenitis. Will leave the wound open initially and pack with Silver dressing changes daily. Tissue will be sent to Pathology for analysis to rule out carcinoma and to Microbiology for culture. A positive culture will necessitate antibiotic therapy. Will schedule the surgery for next week to be done on under general anesthesia with a surgical observation overnight stay in the hospital. Her neck Xray was reviewed and was normal. Will eventually need NCV and EMG studies to assess for carpal tunnel. Will schedule those studies after her hidradenitis neck surgery has healed. Patient was informed of the risks and complications of the procedure including alternatives to surgery. These were discussed with the patient personally. Patient voices understanding and wishes to proceed. Some of the risks and complications were included in a form from the [employer]. Encouraged the patient to stop smoking as it may have deleterious effects on wound healing. 05/21/18 5283 <Electronically signed by Arias Boswell MD> Date Arias Boswell MD Cosigner Signature: Date (if applicable) CC: Tran Sellers [employer] WEIGHER; Arias Boswell MD; Aj Hope MD; [facility] Signed DISCHARGE INSTRUCTION Observed: 05/21/2018 Status: F Source: [facility] 2:37 PM [facility] REPOSITORY [facility] Medical Records Department [address] [place] [id number] Instructions for Home/Discharge Instructions 05/21/18 1431 MR#: [id number] Acct: [id number] Name: ROGER JIMENEZ Rep #: [id number] : 1985 32 From: Arias Boswell MD PCP: Aj Hope MD Status: ADM SONALI You will use the following diet at home:: Calorie/Carbohydrate Controlled (specify 1200, 1400, etc) Discharge Activity: May Not Drive, May Shower May shower in (days): 1 - may shower at the time of the dressing changes. May resume sexual activity in: 10-14 days Weight Bearing Status: Weight bearing as tolerated Lifting Restrictions: 20 lbs. Keep extremity elevated above heart level: - - elevate head. Call your doctor if your incision/area has: Continuous Slow Oozing, Sudden Increased Bleeding, Increased Pain/ Swelling, Increased Redness, Foul Smelling Discharge, Swelling at the incision site Call your doctor if you observe: Fever of 101 or Higher, Coldness, Increased Pain, Shortness of breath, Chest pain, Calf discomfort, Uncontrolled pain Suture Line Care: - - daily dressing changes with Aquacel Silver. Change Dressing in (Days):: 1 - Silver dressing changes daily. Cleanse incision/area with: Soap AND Water - may cleanse the wound with soap and water at the time of the dressing change., - - may get wound wet in the shower at the time of the dressing change. Additional Dressing/Incision Instructions:: Home Health to assist with the Silver dressing changes daily with followed by 4x4 gauze. May wash the wound with soap and water at the time of the dressing change. Instructions: Serotonin Allergies/Adverse Reactions: Allergies lamotrigine [From Lamictal] Allergy (Mild, Verified 05/10/18 15:29) Rash adhesive tape Allergy (Verified 05/10/18 15:29) Rash Medications to take at Discharge Buspirone HCl [Buspar] 20 mg PO TID 01/18/14 Clonidine HCl [Catapres] 0.1 mg PO DAILY 01/18/14 Duloxetine Hcl [Cymbalta] 90 mg PO DAILY 01/18/14 Metformin HCl [Glucophage] 1,000 mg PO BIDCM 01/18/14 Tizanidine HCl [Zanaflex] 4 mg PO 4X/DAY 01/18/14 glipiZIDE [Glucotrol] 15 mg PO DAILY@0730 01/18/14 Quetiapine Fumarate [Seroquel XR] 800 mg PO QHS 04/25/14 Meloxicam [Mobic] 7.5 mg PO DAILY 01/14/16 Spironolactone [Aldactone] 100 mg PO DAILY 01/14/16 Norgestrel-Ethinyl Estradiol [Cryselle-28 Tablet] 1 tab PO DAILY 01/20/16 Bluejacket Carbonate [Bluejacket Carbonate ER] 300 mg PO BID 05/10/16 gabapentin 300 mg capsule 300 mg PO 4X/DAY cap 12/01/17 Lubiprostone [Amitiza] 24 mcg PO BID 01/16/18 Omeprazole [Prilosec] 20 mg PO DAILY 01/16/18 insulin aspart U-100 100 unit/mL subcutaneous solution See Label Instructions SC TID ml 02/14/18 insulin glargine (U-100) 100 unit/mL subcutaneous solution 10 unit SC QHS 02/14/18 Albuterol Aerosols [Ventolin Aerosols] 2.5 mg INHALATION Q2H PRN PRN vial.neb. 05/21/18 Clindamycin HCl 300 mg PO TID #42 cap 05/21/18 Diazepam [Valium] 5 mg PO 4X/DAY PRN PRN #30 tab 05/21/18 Docusate Sodium [Colace] 100 mg PO BID #60 cap 05/21/18 Fluconazole 100 mg PO QDAY #14 tab 05/21/18 Gauze Bandage [Gauze Pads] 4 bandage TP .QDAILY #120 bandage 05/21/18 Glucerna Shake 120 ml PO TIDCM liquid 05/21/18 HYDROmorphone tablet [Dilaudid] 2 - 4 mg PO 4X/DAY PRN PRN 7 Days #60 tab 05/21/18 Insulin Lispro [Humalog KwikPen] See Protocol SC TIDAC insuln.pen 05/21/18 Nicotine [Nicoderm] 14 mg TRANSDERM. DAILY patch 05/21/18 Pantoprazole Sodium [Protonix] 20 mg PO DAILY tablet 05/21/18 Quetiapine Fumarate [Seroquel] 400 mg PO BID tablet 05/21/18 Silver/Hydrocolloid Dressing [Aquacel-Ag W-Hydrofiber Dress] 1 bandage TP .QDAILY 30 Days #15 bandage 05/21/18 busPIRone [Buspar] 5 mg PO TID tablet 05/21/18 busPIRone [Buspar] 15 mg PO TID tablet 05/21/18 proMETHazine tablet [Phenergan tablet] 25 mg PO 4X/DAY PRN PRN #30 tab 05/21/18 The following prescriptions were given: Diazepam [Valium] 5 mg PO 4X/DAY PRN PRN #30 tab PRN Reason: Spasms Fluconazole 100 mg PO QDAY #14 tab Gauze Bandage [Gauze Pads] 4 bandage TP .QDAILY #120 bandage HYDROmorphone tablet [Dilaudid] 2 - 4 mg PO 4X/DAY PRN PRN 7 Days #60 tab PRN Reason: Pain proMETHazine tablet [Phenergan tablet] 25 mg PO 4X/DAY PRN PRN #30 tab PRN Reason: NAUSEA/VOMITING Silver/Hydrocolloid Dressing [Aquacel-Ag W-Hydrofiber Dress] 1 bandage TP .QDAILY 30 Days #15 bandage Docusate Sodium [Colace] 100 mg PO BID #60 cap Clindamycin HCl 300 mg PO TID #42 cap Primary Care Physician: Aj Hope MD [Primary Care Provider] - Please Follow Up With: Arias Boswell MD When: tomorrow 05/22/18 at 430 pm. Call [phone] if questions. Please Follow Up With: Arias Boswell MD When: 2-3 weeks at Wound Center. Call [phone] for appt. Proposed Discharge Date: 05/21/18 05/21/18 1437 <Electronically signed by Arias Boswell MD> Date Arias Boswell MD CC: Tran Sellers NP; Laura Sandoval; Aj Hope MD; [facility] BEDSIDE GLUCOSE Collected: 05/21/2018 Status: F Source: [place] 11:38 AM [facility] REPOSITORY TYPE CODE TESTS RESULT OUT OF REFERENCE UNITS RANGE LAB L501.080 70-110 mg/dL High BEDSIDE GLU 139 Result Comment: MANAGEMENT OF PATIENT CARE PER NURSING PROTOCOL Performed By: #### L501.080 #### [facility] Point of Care [address] [place], [place] [address] BEDSIDE GLUCOSE Collected: 05/21/2018 Status: F Source: [place] 7:41 AM [facility] REPOSITORY TYPE CODE TESTS RESULT OUT OF REFERENCE UNITS RANGE LAB L501.080 70-110 mg/dL High BEDSIDE GLU 192 Result Comment: MANAGEMENT OF PATIENT CARE PER NURSING PROTOCOL Performed By: #### L501.080 #### [facility] Point of Care [address] [place] [address] BEDSIDE GLUCOSE Collected: 05/21/2018 Status: F Source: [place] 4:50 AM [facility] REPOSITORY TYPE CODE TESTS RESULT OUT OF REFERENCE UNITS RANGE LAB L501.080 70-110 mg/dL High BEDSIDE GLU 134 Result Comment: MANAGEMENT OF PATIENT CARE PER NURSING PROTOCOL Performed By: #### L501.080 #### [facility] Point of Care [address] [place] [address] BEDSIDE GLUCOSE Collected: 05/20/2018 Status: F Source: [place] 10:25 PM [facility] REPOSITORY TYPE CODE TESTS RESULT OUT OF REFERENCE UNITS RANGE LAB L501.080 70-110 mg/dL High BEDSIDE GLU 241 Result Comment: MANAGEMENT OF PATIENT CARE PER NURSING PROTOCOL Performed By: #### L501.080 #### [facility] Point of Care [address] [place] [address] BEDSIDE GLUCOSE Collected: 05/20/2018 Status: F Source: [place] 3:58 PM [facility] REPOSITORY TYPE CODE TESTS RESULT OUT OF REFERENCE UNITS RANGE LAB L501.080 70-110 mg/dL High BEDSIDE GLU 179 Result Comment: MANAGEMENT OF PATIENT CARE PER NURSING PROTOCOL Performed By: #### L501.080 #### [facility] Point of Care [address] [place] [address] BEDSIDE GLUCOSE Collected: 05/20/2018 Status: F Source: [place] 11:47 AM [facility] REPOSITORY TYPE CODE TESTS RESULT OUT OF REFERENCE UNITS RANGE LAB L501.080 70-110 mg/dL High BEDSIDE GLU 124 Result Comment: MANAGEMENT OF PATIENT CARE PER NURSING PROTOCOL Performed By: #### L501.080 #### [facility] Point of Care [address] [place] [address] CBC-COMPLETE BLOOD CNT Collected: 05/20/2018 Status: F Source: [place] NO DIFF 8:40 AM [facility] REPOSITORY TYPE CODE TESTS RESULT OUT OF RANGE REFERENCE UNITS LAB L100.1000 4.4-11.0 K/mm3 High WBC 13.9 LAB L100.1200 4.2-5.4 M/mm3 Low RBC 3.92 LAB L100.1300 12.0-15.0 g/dl Low HGB 11.6 LAB L100.1400 37-47 % Normal HCT 37.5 LAB L100.1500 81-99 fL Normal MCV 95.7 LAB L100.1600 27.0-32.0 pg Normal MCH 29.6 LAB L100.1700 32-36 g/gl Low MCHC 30.9 LAB L100.1810 11.6-14.6 % High RDW CV 15.2 LAB L100.1820 35.1-43.9 fl High RDW SD 53.6 LAB L100.1900 150-450 K/mm3 Normal PLT 368 LAB L100.2000 6.2-12.0 fl Normal MPV 9.6 Performed By: #### L100.0500 #### [facility] [address] [place], [place], [address] BASIC METABOLIC Collected: 05/20/2018 Status: F Source: [facility] PROFILE (BMP) 8:40 AM [facility] REPOSITORY TYPE CODE TESTS RESULT OUT OF RANGE REFERENCE UNITS LAB L501.0100 74-106 mg/dL High GLU 248 Result Comment: Glucose result greater than or equal to 200 mg/dL suggests DIABETES MELLITUS per A.D.A. criteria. Please note revised GLUCOSE reference range effective 2017. LAB L501.1000 7-18 mg/dL Normal BUN 13 LAB L501.1100 0.55-1.02 mg/dL High CREAT,SERUM 1.04 Result Comment: The validity of the calculated GFR AND GFRAA in patients over 70 years has not been determined. Clinical correlation is essential. LAB L501.1110 >60 mL/min Normal EST GFR 65 Result Comment: Non- GFR Calc LAB L501.1115 >60 mL/min Normal EST GFR - AA 78 Result Comment: GFR Calc LAB L501.1255 ml/min Normal Estimated CRCL 69.23 LAB L501.1300 10-20 RATIO Normal BUN/CRE 12.5 LAB L501.2200 8.5-10 mg/dL Normal .1 CA 9.3 LAB L501.5300 136-14 mmol/L Low 5 NA 135 LAB L501.5600 3.5-5. mmol/L Low 1 K 3.4 LAB L501.5900 98-107 mmol/L Normal CL 100 LAB L501.6100 21.0-3 mmol/L Normal 2.0 CO2 25.0 LAB L501.6200 5-15 Normal GAP 10 Performed By: #### L500.2500, L506.0500 #### [facility] [address] [facility] [address] PREALBUMIN Collected: 05/20/2018 Status: F Source: [place] 8:40 AM [facility] REPOSITORY TYPE CODE TESTS RESULT OUT OF REFERENCE UNITS RANGE LAB L506.0500 20.0-40.0 mg/dL Low PREALBUMIN 19.4 Performed By: #### L500.2500, L506.0500 #### [facility] [address] [facility] [address] BEDSIDE GLUCOSE Collected: 05/20/2018 Status: F Source: [place] 6:49 AM [facility] REPOSITORY TYPE CODE TESTS RESULT OUT OF REFERENCE UNITS RANGE LAB L501.080 70-110 mg/dL High BEDSIDE GLU 189 Result Comment: Insulin Given MANAGEMENT OF PATIENT CARE PER NURSING PROTOCOL Performed By: #### L501.080 #### [facility] Point of Care [address] [place] [address] BEDSIDE GLUCOSE Collected: 05/19/2018 Status: F Source: [place] 10:23 PM [facility] REPOSITORY TYPE CODE TESTS RESULT OUT OF REFERENCE UNITS RANGE LAB L501.080 70-110 mg/dL High BEDSIDE GLU 152 Result Comment: MANAGEMENT OF PATIENT CARE PER NURSING PROTOCOL Performed By: #### L501.080 #### [facility] Point of Care [address] [place] [address] BEDSIDE GLUCOSE Collected: 05/19/2018 Status: F Source: [place] 4:13 PM [facility] REPOSITORY TYPE CODE TESTS RESULT OUT OF REFERENCE UNITS RANGE LAB L501.080 70-110 mg/dL High BEDSIDE GLU 341 Result Comment: MANAGEMENT OF PATIENT CARE PER NURSING PROTOCOL Performed By: #### L501.080 #### [facility] Point of Care [address] [place] [address] CONSULTATION Observed: 05/19/2018 Status: F Source: [place] 12:59 PM [facility] REPOSITORY [facility] Medical Records Department [address] [place] [address] Consultation 05/19/18 1244 MR#: [id number] Acct: [id number] Name: ROGER JIMENEZ Rep #: [id number] : 1985 32 From: Laura Sandoval MD PCP: Aj Hope MD Status: REG [facility] Y Location: MS3 [id number] Problem List (1) Hidradenitis suppurativa Status: Chronic Comment: 4 cm recurrent hidradenitis posterior neck and occipital scalp (2) Bilateral carpal tunnel syndrome Status: Chronic Comment: worse on left (3) Diabetes mellitus type 2, uncontrolled Status: Acute Qualifiers: Diabetes mellitus senior media director insulin use: without senior media director use Diabetes mellitus complication status: without complication Qualified Code(s): E11.65 - Type 2 diabetes mellitus with hyperglycemia (4) Morbid obesity Status: Chronic (5) Bipolar affective Status: Chronic (6) Chronic back pain Status: Chronic Reason for Consult Date of Consultation: 05/19/18 Reason for Consultation: Postoperative medical management. History of Present Illness: The patient is a 32 year old F with past medical history as mentioned above admitted today after she underwent incision, drainage and excisional debridement for recurrent hidradenitis/abscess of the posterior neck and occipital scalp and I am seeing this patient for postoperative medical management. This patient had a history of recurrent hydradenitis of multiple locations in her body status post multiple incision and drainage procedures most recently was today. At this time, she complains of neck pain which is dull aching pain, 8 out of 10 in severity, not radiating, slightly worsened upon movement of her neck, no relieving factors and no other associated symptoms. She denies fever chills. She does have history of type 2 diabetes mellitus which seemed to be uncontrolled. She mentioned that her blood sugars usually in the 300s. According to the patient, most recent hemoglobin A1c was back in for glucometer 17 and it was 11. Most recent hemoglobin A1c was few days ago and it was 8.8. She has a history of chronic pain syndrome and she has been on Neurontin and meloxicam. She had a history of anxiety and bipolar disorder and she has been on Cymbalta, Catapres and Seroquel. At this time, her vital signs are stable. Preoperative routine blood work reviewed, revealed mild leukocytosis and chronic anemia with stable hemoglobin. Her MRSA screen PCR was negative. At this time, she is on IV clindamycin and oral fluconazole. Past Medical History Past Medical History (Chronic Problems): Chronic Problems (Last Updated 02/14/18 @ 14:17 by Shreya Rondon) Hidradenitis suppurativa (Chronic) 4 cm recurrent hidradenitis posterior neck and occipital scalp Bilateral carpal tunnel syndrome (Chronic) worse on left Chronic neck pain (Chronic) Branchial cleft sinus (Chronic) History of incision and drainage (Chronic) Left side of neck 12/02/17, RIGHT BREAST ABSCESS 09/17/2014, LEFT BREAST ABSCESS 10/11/2014, INGUINAL HYDRADENITIS, AXILLARY HYDRADENITIS Diabetes (Chronic) type 2 Dx : 2012 Last exacerbation : DKA : never Hypoglycemic episode : never ER visit : 01/08 - 500+ Hydradenitis (Chronic) hidradenitis left axilla - L73.2 Morbid obesity (Chronic) Bipolar affective (Chronic) Osteoarthritis (Chronic) Chronic back pain (Chronic) Diabetic leg ulcer (Chronic) nonhealing diabetic ulcer right medial leg - E11.622 Non-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 fat layer exposed (Chronic) diabetic ulcer right medial leg - L97.912 Smoker (Chronic) 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 H/O hidradenitis suppurativa (Chronic) Z87.2 Medical History: Medical History (Last Updated 02/14/18 @ 14:17 by Shreya Rondon) Cat scratch of left hand with infection (Acute) S60.512A, L08.9, W55.03XA cat scratch infection dorsum left hand at proximal index finger Cat scratch of right hand with infection (Acute) S60.511A, L08.9, W55.03XA cat scratch infection dorsum right hand with extension to long finger Cat scratch (Acute) W55.03XA cat scratch infection dorsum right hand with extension to long finger cat scratch infection dorsum left hand at proximal index finger Diabetes (Chronic) E11.9 type 2 Dx : 2012 Last exacerbation : DKA : never Hypoglycemic episode : never ER visit : 01/08 - 500+ Hydradenitis (Chronic) L73.2 hidradenitis left axilla - L73.2 Morbid obesity (Chronic) E66.01 Bipolar affective (Chronic) F31.9 Osteoarthritis (Chronic) Chronic back pain (Chronic) M54.9, G89.29 Diabetic leg ulcer (Chronic) E11.622, L97.909 nonhealing diabetic ulcer right medial leg - E11.622 Non-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 fat layer exposed (Chronic) L97.912 diabetic ulcer right medial leg - L97.912 Smoker (Chronic) F17.200 F17.200 Open wound of left axillary region (Acute) S41.102A open surgical hidradenitis wound left axilla - S41.102A 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 compromised skin graft left axilla Abscess of sternal region (Acute) L02.213 L02.213 Sternal chest wall wound abscess Open wound of chest wall, complicated (Acute) S21.109A S21.109D open chest wall sternal wound H/O hidradenitis suppurativa (Chronic) Z87.2 Z87.2 Abscess of breast (Acute) N61.1 abscess right medial breast Alcohol abuse F10.10 Anxiety and depression F41.9, F32.9 Asthma J45.909 Back problem M53.9 Drug abuse F19.10 Frequent headaches R51 GERD (gastroesophageal reflux disease) K21.9 Hay fever J30.1 Hearing problem H91.90 Hidradenitis L73.2 LEFT INGUINAL, RIGHT AXILLARY, POSTERIOR NECK, High triglycerides E78.1 Hyperlipidemia E78.5 Kidney problem N28.9 Neuropathy G62.9 Non-healing surgical wound T81.89XA NON HEALING HIDRADENITIS WOUND POSTERIOR NECK. NON HEALING INFECTED HIDRADENITIS ULCER POSTERIOR NECK Osteoarthritis M19.90 Partial thickness burn SUPEROPOSTERIOR NECK Recurrent UTI N39.0 Sinus problem J34.9 Vision problem H54.7 HTN (hypertension) I10 Allergies lamotrigine [From Lamictal] Allergy (Mild, Verified 05/10/18 15:29) Rash adhesive tape Allergy (Verified 05/10/18 15:29) Rash Home Medications: Ambulatory Orders Medication Instructions Recorded Buspirone HCl [Buspar] 20 mg PO TID 01/18/14 Clonidine HCl [Catapres] 0.1 mg PO DAILY 01/18/14 Surgical History: Surgical History (Last Updated 03/07/18 @ 23:20 by Arias Boswell MD) History of incision and drainage (Chronic) Z98.890 Left side of neck 12/02/17, RIGHT BREAST ABSCESS 09/17/2014, LEFT BREAST ABSCESS 10/11/2014, INGUINAL HYDRADENITIS, AXILLARY HYDRADENITIS History of section (Acute) Z98.891 History of tonsillectomy (Acute) Z98.890, Z90.89 Hidradenitis L73.2 EXCISION LEFT INGUINAL HIDRADENITIS AND PLACEMENT OF WOUND VAC (121 CM2) 02/05/2009, EXCISION RIGHT AXILLARY HIDRADENITIS AND PLACEMENT OF WOUND VAC (36 CM2) 12/08/2009, EXCISIONAL DEBRIDEMENT HIDRADENITIS POSTERIOR NECK (33 CM2) 04/25/2014, EXCISIONAL DEBRIDEMENT NONHEALING HIDRADENITIS WOUND POSTERIOR NECK WITH 10 CM SECONDARY WOUND CLOSURE 05/15/2014,INCISION AND DRAINAGE AND EXCISIONAL DEBRIDEMENT NONHEALING POSTOP INFECTED HIDRADENITIS ULCER POSTERIOR NECK (20 CM2) AND DEBRIDEMENT PARTIAL THICKNESS BURN SUPEROPOSTERIOR NECK(16 CM2) 06/26/2014, SURGICAL PREPARATION, LEFT AXILLA WITH EXCISION HIDRADENITIS (88 SQ CM) AND SURGICAL PREPARATION, RIGHT MEDIAL LEG WITH EXCISON NONHEALING DIABETIC ULCER RIGHT MEDIAL LEG AND 4 CM COMPLEX SECONDARY WOUND CLOSURE 01/20/2016, EXCISIONAL DEBRIDEMENT LEFT AXILLARY HIDRADENITIS WOUND WITH FTSG RECONSTRUCTION FROM THE RIGHT LATERAL ABDOMINAL WALL (55 CM2) AND PLACEMENT OF NPWT 02/12/2016, SURGICAL PREPARATION STERNUM CHEST WALL WOUND WITH INCISION AND DRAINAGE ABSCESS AND EXCISIONAL DEBRIDEMENT (14 CM2) 03/05/2016, CLOSURE STERNUM CHEST WALL OPEN ABSCESS WOUND WITH RHOMBOID TRANSPOSITION SKIN FLAP RECONSTRUCTION (24.5 CM2) AND SURGICAL PREPARATION RIGHT MEDIAL BREAST WITH INCISION AND DRAINAGE ABSCESS AND EXCISIONAL DEBRIDEMENT (28 CM2) 03/11/2016 [place] teeth removed K08.499 Surgical History: tonsillectomy, - - , wisdom teeth removal, incision and drainage of inguinal hidradenitis. Incision and drainage of axillary hidradenitis. Excision left inguinal hidradenitis in 01/27. Excision right axillary hidradenitis in 11/30. Excisional debridement hidradenitis posterior neck on 04/25/14. Excisional debridement nonhealing hidradenitis wound posterior neck with secondary wound closure on 05/15/14. Incision and drainage and excisional debridement nonhealing postop infected hidradenitis ulcer posterior neck and debridement partial thickness burn superoposterior neck on 06/26/14. Psychiatric History: Anxiety, Bipolar Smoking Status: Current every day smoker Tobacco Use: Cigarettes Alcohol: None Drugs: None - *Family History Maternal Family History: Family History (Last Reviewed 02/14/18 @ 14:01 by Shreya Rondon) Grandmother Thyroid disorder Father Diabetes Heart disease Hypertension High cholesterol Mother Heart disease Hypertension High cholesterol History Items: Heart Disease, Hypertension, - Paternal Family History: Family History (Last Reviewed 02/14/18 @ 14:01 by Shreya Rondon) Grandmother Thyroid disorder Father Diabetes Heart disease Hypertension High cholesterol Mother Heart disease Hypertension High cholesterol History Items: Diabetes, Heart Disease, Hypertension Review of Systems Constitutional: Denies: Anorexia, Chills, Fever, Weakness Eyes: Denies: Blurred vision, Double vision, Drainage, Redness HEENT: Denies: Difficulty Hearing, Ear Pain, Eye Pain, Nasal Congestion, Sore Throat Cardiovascular: Denies: Chest Pain, Chest Tightness, Edema, Light Headedness, Palpitations, Syncope Respiratory: Denies: Cough, Pleuritic Pain, Shortness of Breath, Sputum production, Wheezing Gastrointestinal: Reports: Nausea. Denies: Abdominal Pain, Constipation, Diarrhea, Vomiting Genitourinary: Denies: Dysuria, Frequency, Hematuria Musculoskeletal: Reports: Neck Pain. Denies: Arm Pain, Back Pain, Foot Pain Skin: Denies: Dryness, Rash Neurological: Denies: Balance problems, Double vision, Change in Speech, Slurred speech, Confusion, Headaches, Numbness, Tingling Psychiatric: Reports: Anxiety. Denies: Depression Endocrine: Denies: Change in Body Habitus, Polydipsia - Physical Exam General: Alert, Oriented x3, Cooperative, No apparent distress HEENT: PERRLA, EOMI, Normocephalic Oral: Moist Mucosa, No Gingival or Mucosal Lesions/ Ulcerations Neck: Supple, No JVD, Negative Carotid Bruits, Trachea Midline, Thyroid Normal Size and Texture Lungs: Clear to auscultation, No rhonchi, No wheeze, No rales, Diminished Cardiovascular: Regular rate, Regular Rhythm, Normal S1, Normal S2, No murmurs Abdomen: Bowel Sounds Present, Soft, Non Tender, Non-Distended, No Hepato-splenomegaly Extremities: No clubbing, No cyanosis, No edema Skin: No rashes, Ulcer/ Wound Lymphatic: No Cervical, Supraclavicular, or Inguinal Adenopathy Neurological: Cranial nerves II-XII grossly intact, Motor Exam 5/5 strength throughout Psych/Mental Status: Normal Affect, Appropriate, Alert and oriented to time, place, person, mood and affect Vital Signs Temp Pulse Resp BP Pulse Ox 97.6 F L 76 16 111/53 L 88 05/19/18 11:09 05/19/18 11:24 05/19/18 11:09 05/19/18 11:05/19/18 11:09 Oxygen Flow Rate (L/min) 2 Oxygen Delivery Method Nasal Cannula Weight: 231 lb 11.293 oz Body Mass Index (BMI) 38.5 Finger Stick Blood Glucose 239 Intake and Output for Last 24 Hours Intake Total 1200 / 1200 Balance 1200 / 1200 Laboratory Tests Past 24 Hrs Urine Test Negative S.aureus Protein A PCR NEGATIVE MRSA (PCR) Negative POC Glucose POC Glucose 239 H 208 H Assessment/Plan All Active Problems (Last Updated 02/14/18 @ 14:17 by Shreya Rondon) Folliculitis (Acute) Diabetes mellitus type 2, uncontrolled (Acute) Unspecified open wound of unspecified part of neck, subsequent encounter (Acute) Unspecified open wound of unspecified part of head, subsequent encounter (Acute) Open wound involving head with neck, complicated (Acute) Abscess of neck (Acute) History of section (Acute) History of tonsillectomy (Acute) Cat scratch of left hand with infection (Acute) Cat scratch of right hand with infection (Acute) Cat scratch (Acute) Open wound of left axillary region (Acute) Abscess of sternal region (Acute) Open wound of chest wall, complicated (Acute) Abscess of breast (Acute) This is a 32 years old female patient underwent elective incision, drainage and excisional debridement for recurrent hydradenitis/abscess of the posterior neck and occipital scalp and I am seeing this patient in consultation for postoperative medical management. #1 status post incision, drainage and excisional debridement of recurrent cellulitis of the posterior neck and occipital scalp: Postoperative day 1. She is on IV clindamycin and oral fluconazole. Her vital signs are stable, afebrile. She is on IV hydromorphone as needed for pain as well as IV fluids. MRSA screen was negative. Wound culture sent, pending. She has history of recurrent hidradenitis of multiple locations of her body status post multiple incision and drainage procedures. Dr. Boswell is managing. #2 uncontrolled type 2 diabetes mellitus: Patient mentioned that she has sugar has been in the range of 300s. Hemoglobin A1c was 8.8 years ago. Plan for ADA diet, continue home doses of insulin glargine, sliding scale, continue metformin and glipizide, Accu-Cheks q. before meals at bedtime. #3 chronic pain syndrome: Continue Neurontin and IV hydromorphone as needed as well as meloxicam. #4 anxiety/bipolar disorder: Continue clonidine, Cymbalta, lithium, Seroquel. #5 tobacco abuse: Start NicoDerm patch. #6 DVT prophylaxis: SCDs. This note was generated with [employer] dictation software. It may contain incorrect words, spelling, and punctuation that were not noted in checking the note before signing. Code Visit Inpatient E AND M: [id number] Init Hosp L2 05/19/18 1259 <Electronically signed by Laura Sandoval MD> Date Laura Sandoval MD Cosigner Signature (if applicable): Date CC: Laura Sandoval; Arias Boswell MD; Aj Hope MD Signed 12 LEAD ELECTROCARDIOGRAM Observed: 05/19/2018 Status: F Source: [place] 9:48 AM [facility] REPOSITORY [facility] Cardiovascular Services [address] [place] [address] 12 Lead EKG 05/16/18 1614 MR#: [id number] Acct: [id number] Name: ROGER JIMENEZ Rep #: [id number] : 1985 32 From: Akhil Mora MD Attending Dr: Arias Boswell MD Status: REG [facility] Ordering Dr: Arias Boswell MD Date: 05/16/18 Location: [facility] Sex: F C Admitted: Test Reason : PRE OP Blood Pressure : / mmHG Vent. Rate : 100 BPM Atrial Rate : 100 BPM P-R Int : 162 ms QRS Dur : 082 ms QT Int : 370 ms P-R-T Axes : 073 090 056 degrees QTc Int : 477 ms Normal sinus rhythm Possible Left atrial enlargement Rightward axis Borderline ECG Confirmed by ABBY MARTE, AKHIL ([id number]), manager editorial PRETTY KIM ([id number]) on 05/19/2018 9:48:00 AM Referred By: Arias Boswell Confirmed By:AKHIL MORA MD 05/19/18 0948 Date Akhil Mora MD CC: Arias Boswell MD; Aj Hope MD Signed BEDSIDE GLUCOSE Collected: 05/19/2018 Status: F Source: [place] 9:19 AM [facility] REPOSITORY TYPE CODE TESTS RESULT OUT OF REFERENCE UNITS RANGE LAB L501.080 70-110 mg/dL High BEDSIDE GLU 239 Result Comment: MANAGEMENT OF PATIENT CARE PER NURSING PROTOCOL Performed By: #### L501.080 #### [facility] Point of Care [address] [place], [place] [id number] BEDSIDE GLUCOSE Collected: 05/19/2018 Status: F Source: [place] 7:00 AM [facility] REPOSITORY TYPE CODE TESTS RESULT OUT OF REFERENCE UNITS RANGE LAB L501.080 70-110 mg/dL High BEDSIDE GLU 208 Result Comment: MANAGEMENT OF PATIENT CARE PER NURSING PROTOCOL Performed By: #### L501.080 #### [facility] Point of Care [address] [place] [address] ,URINE Collected: 05/19/2018 Status: F Source: [place] 6:45 AM [facility] REPOSITORY TYPE CODE TESTS RESULT OUT OF REFERENCE UNITS RANGE LAB L400.8000 Negative Normal HCGUQUAL Negative Result Comment: Very dilute urine specimens, as indicated by a low specific gravity, may not contain community engagement representative levels of hCG. If is still suspected, a first morning urine specimen should be collected 48 hours later and tested. Performed By: #### L400.7600 #### [facility] [address] [facility] [place], [address] MRSA WOUND DNA BY Collected: 05/19/2018 Status: F Source: [facility] PCR 12:00 AM [facility] REPOSITORY Order Comment: Comments: POSTERIOR NECK HIDRADENITIS ABSCESS TYPE CODE TESTS RESULT OUT OF RANGE REFERENCE UNITS LAB L8200.1100 Negative Normal MRSA Negative RESULT LAB L8200.1150 Negative Normal SA RESULT NEGATIVE Performed By: #### L8200.1075 #### [facility] [address] [facility] [place], [address] Observed: 05/19/2018 Status: F Source: [place] CULTURE, DEEP WOUND 12:00 AM [facility] REPOSITORY Order Date: 06/22/17 Comments: POSTERIOR NECK HIDRADENITIS ABSCESS Gram Stain Gram Stain Rare White Blood Cells No organisms seen Wound Culture Clinical correlation necessary, Possible skin contamination. ORGANISM 1: Staphylococcus epidermidis Amount Growth Rare Staphylococcus epidermidis: REACTION Benzylpenicillin NF 0.25 R Cefoxitin *NF - Clindamycin $$ <=0.25 S Inducable Clindamycin Res[place] - Erythromycin $ <=0.25 S Gentamicin $ <=0.5 S Levofloxacin $ <=0.12 S Linezolid $$$$ 1 S Oxacillin NF <=0.25 S Tigecycline $$$$ <=0.12 S Rifampin $$ <=0.5 S Tetracycline NF >=16 R Vancomycin $ 1 S (NF) indicates non-formulary drug at [facility]. Approval by Infectious Disease Specialist required before non-formulary drugs may be ordered and/or dispensed. * CLSI guidelines does not recommend testing of cephalosporins. This interpretation is deduced from Beta-lactam/penicillin results. Cult, Anaerobic ORGANISM 1: Atopobium vaginae Performed By: #### M100.1500, M600.1900 #### [place] [facility] [address] [place], [address] Observed: 05/19/2018 Status: F Source: [place] CULTURE, FUNGUS W/ 12:00 [facility] [id number] REPOSITORY Comments: POSTERIOR NECK HIDRADENITIS ABSCESS Is this test to exclude patient from TB Isolation? N Cu,[id number] TESTING PERFORMED AT [facility]. ORIGINAL REPORT ON FILE IN LAB CONTAINS ADDITIONAL TEST SITE INFORMATION. CUF No yeast or mold isolated after [address]136 TESTING PERFORMED AT [facility]. ORIGINAL REPORT ON FILE IN LAB CONTAINS ADDITIONAL TEST SITE INFORMATION. Fungus Stain No yeast or mold observed. Performed By: #### M100.1500, M600.1900 #### [facility] [address] [place], [address] HIDRADENITIS (CHOOSE Observed: 05/19/2018 Status: F Source: [place] SITE) 12:00 [facility] REPOSITORY Patient: ROGER JIMENEZ : 1985 (32/F) Acct Num: [id number] Phys: Arias Boswell MD Unit Num: [id number] Loc: MS3 [id number] Specimen: [id number] Received: 05/19/18 - 1326 Spec Type: Hidradenit TISSUES TISSUES: Neck, NOS COMMENT Skeletal muscle tissue is also noted in the deeper portion of the specimen. GROSS DESCRIPTION Received in fixative is one container labeled with the patient's name and designated posterior neck hidradenitis. The specimen consists of rectangular piece of jean-whitish skin with underlying tissue measuring 9 x 3 cm and up to 2 cm in thickness. A piece of possible skeletal muscle tissue is also noted at the deep margin of the specimen. Sections did not reveal an obvious mass lesion. Business Banker sections are submitted in 3 cassettes. SJ:carmelita 05/19/18 TC:2 CPT: 03513, 03927 HEADER OPERATION: Surgical preparation posterior neck with incision and drainage PRE-OP DIAGNOSIS: Recurrent hidradenitis (4cm) posterior neck and occipital scalp TISSUE SUBMITTED: Posterior neck hidradenitis abscess MICROSCOPIC DESCRIPTION Slides are reviewed. MICROSCOPIC DIAGNOSIS Posterior neck hidradenitis abscess: Skin with underlying tissue with focal ulceration associated with acute inflammation. Focal bacterial colonization. Special stains for fungi is negative for organisms; matched control is appropriate. See comment. SJ:carmelita 05/22/18 Signed Milo Schumacher 05/22/18 <signature on file> Performed By: #### PHID #### [facility] [address] [place] [address]. [place], [place], [address] PLASTIC SURGERY Observed: 05/18/2018 Status: F Source: [facility] VISIT REPORT 11:15 PM [facility] REPOSITORY [facility] [address] [place], [place] [address] OFFICE VISIT Date of Service: 05/10/18 MR#: [id number] Acct: [id number] Name: ROGER JIMENEZ Rep #: [id number] : 1985 Provider: Arias Boswell MD Age/Sex: 32/F Location: [facility] Status: Signed Intake Vital Signs05/10/18 Height 5 ft 5 in 05/10/18 Weight: 237 lb 6 oz Intake Visit Reasons: evaluation recurrent hidradenitis posterior neck and occipital scalp 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 Accompanied by: None Is patient in pain?: Yes (BACK OF NECK PAIN THROBBING AND STABBING ) Pain scale (1-10): 8 Allergies lamotrigine [From Lamictal] Allergy (Mild, Verified 05/10/18 15:29) Rash adhesive tape Allergy (Verified 05/10/18 15:29) Rash Medications Buspirone HCl [Buspar] 20 mg PO TID 01/18/14 [History Confirmed 05/16/18] Clonidine HCl [Catapres] 0.1 mg PO DAILY 01/18/14 [History Confirmed 05/16/18] Duloxetine Hcl [Cymbalta] 90 mg PO DAILY 01/18/14 [History Confirmed 05/16/18] Metformin HCl [Glucophage] 1,000 mg PO BIDCM 01/18/14 [History Confirmed 05/16/18] Tizanidine HCl [Zanaflex] 4 mg PO 4X/DAY 01/18/14 [History Confirmed 05/16/18] glipiZIDE [Glucotrol] 15 mg PO DAILY@0730 01/18/14 [History Confirmed 05/16/18] Quetiapine Fumarate [Seroquel XR] 800 mg PO QHS 04/25/14 [History Confirmed 05/16/18] Meloxicam [Mobic] 7.5 mg PO DAILY 01/14/16 [History Confirmed 05/16/18] Spironolactone [Aldactone] 100 mg PO DAILY 01/14/16 [History Confirmed 05/16/18] Norgestrel-Ethinyl Estradiol [Cryselle-28 Tablet] 1 tab PO DAILY 01/20/16 [History Confirmed 05/16/18] Bluejacket Carbonate [Bluejacket Carbonate ER] 300 mg PO BID 05/10/16 [History Confirmed 05/16/18] gabapentin 300 mg capsule 300 mg PO 4X/DAY cap 12/01/17 [History Confirmed 05/16/18] Lubiprostone [Amitiza] 24 mcg PO BID 01/16/18 [History Confirmed 05/16/18] Omeprazole [Prilosec] 20 mg PO DAILY 02/26/18 [History Confirmed 05/16/18] insulin aspart U-100 100 unit/mL subcutaneous solution See Label Instructions SC TID ml 02/14/18 [History Confirmed 05/16/18] insulin glargine (U-100) 100 unit/mL subcutaneous solution 10 unit SC QHS 02/14/18 [History Confirmed 05/16/18] clindamycin HCl 300 mg capsule 300 mg PO TID #42 cap 05/10/18 [Rx Confirmed 05/16/18] fluconazole 100 mg tablet 100 mg PO QDAY #14 tab 05/10/18 [Rx Confirmed 05/16/18] PFSH Medical History Cat scratch of left hand with infection (Acute) Cat scratch of right hand with infection (Acute) Cat scratch (Acute) Diabetes (Chronic) Hydradenitis (Chronic) Morbid obesity (Chronic) Bipolar affective (Chronic) Osteoarthritis (Chronic) Chronic back pain (Chronic) Diabetic leg ulcer (Chronic) Non-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 fat layer exposed (Chronic) Smoker (Chronic) Open wound of left axillary region (Acute) Skin graft failure (Chronic) Abscess of sternal region (Acute) Open wound of chest wall, complicated (Acute) H/O hidradenitis suppurativa (Chronic) Abscess of breast (Acute) Alcohol abuse (Acute) Anxiety and depression (Acute) Asthma (Acute) Back problem (Acute) Drug abuse (Acute) Frequent headaches (Acute) GERD (gastroesophageal reflux disease) (Acute) Hay fever (Acute) Hearing problem (Acute) Hidradenitis (Acute) High triglycerides (Acute) Hyperlipidemia (Acute) Kidney problem (Acute) Neuropathy (Acute) Non-healing surgical wound (Acute) Osteoarthritis (Acute) Partial thickness burn (Acute) Recurrent UTI (Acute) Sinus problem (Acute) Vision problem (Acute) HTN (hypertension) (Chronic) Surgical History History of incision and drainage (Chronic) History of section (Acute) History of tonsillectomy (Acute) Hidradenitis (Acute) [place] teeth removed (Acute) Family History Grandmother Thyroid disorder Father Diabetes Heart disease Hypertension High cholesterol Mother Heart disease Hypertension High cholesterol Social History household members: family, children number of children: 1 Smoking Status: Current every day smoker second hand exposure: No alcohol intake: former substance use type: former substance user what type of physical activity do you participate in: other seatbelt use: always do you feel safe at home: Yes additional social history: SUN EXPOSURE: OCCASIONALLY HPI evaluation recurrent hidradenitis posterior neck and occipital scalp: Details: HISTORY OF PRESENT ILLNESS 32 year old woman presents with increasing redness and pain and swelling on her posterior neck and occipital scalp area. She has had hidradenitis in this area in the past that was excised and skin grafted in 2013. She states she has pain with movement of her neck. She denies any fever. She denies any trauma. She denies any drainage. She has a history of chronic neck pain and her neck xray was normal. She also has persistent numbness in her thumb and index finger bilaterally. After her neck hidradenitis is treated, will proceed with NCV studies to evaluate for carpal tunnel syndrome. She presents at this time for further evaluation and treatment. PAST MEDICAL HISTORY: 1. Arthritis. 2. Asthma. 3. Back pain. 4. Alcohol abuse. 5. Drug abuse. 6. Frequent headaches. 7. Hay fever. 8. Hypertension. 9. Kidney problems. 10. Bipolar disorder. 11. Persistent cough. 12. Sinus problems. 13. Tonsillitis. 14. Left inguinal hidradenitis. 15. Right axillary hidradenitis. 16. Posterior neck hidradenitis. 17. Diabetes mellitus. 18. Right breast abscess. 19. Left breast abscess. 20. Non-healing diabetic ulcer, dorsal medial aspect, right foot. 21. Left axillary hidradenitis. 22. Non-healing diabetic ulcer, right medial leg. 23. Sternal chest wall abscess wound. 24. Abscess, right medial breast. 25. Cat scratch infection abscess dorsum right hand with extension to long finger. 26. Inflammatory extensor tenosynovitis dorsum right hand with extension to long finger. 27. Cat scratch infection abscess dorsum left hand at proximal index finger. 28. Inflammatory extensor tenosynovitis dorsum left hand at proximal index finger. 29. Smoker. PAST SURGICAL HISTORY: 1. Tonsillectomy. 2. . 3. [place] teeth removal. 4. Incision and drainage of inguinal hidradenitis. 5. Incision and drainage of axillary hidradenitis. 6. Excision of left inguinal hidradenitis and placement of wound VAC (21cm2) on February 05, 2009. 7. Excision of right axillary hidradenitis and placement of wound VAC (36cm2) on December 08, 2009. 8. Excisional debridement of hidradenitis, posterior neck (33 cm2) on April 25, 2014. 9. Excisional debridement of non-healing hidradenitis wound, posterior neck, with 10 cm secondary wound closure on May 15, 2014. 10. Incision and drainage and excisional debridement of non- healing postop infected hidradenitis ulcer, posterior neck (20cm 2), and debridement of partial-thickness, right superior-posterior neck (16cm 2) on June 26, 2014. 11. Incision and drainage, right breast abscess, September 17, 2014. 12. Incision and drainage of left breast abscess, October 11, 2014. 13. Surgical preparation, left axilla with excision of hidradenitis (88cm2) and surgical preparation, right medial leg, with excision of non-healing diabetic ulcer, right medial leg, and 4 cm complex secondary wound closure on January 20, 2016. 14. Excision debridement of left axillary hidradenitis wound with full-thickness skin graft reconstruction from the right lateral abdominal wall (5cm2) and placement of NPWT on February 12, 2016. 15. Surgical preparation, sternum chest wall wound, with excision and drainage of abscess and excisional debridement (14cm2) on March 05, 2016. 16. Closure of sternum chest wall open abscess wound with rhomboid transposition skin flap reconstruction (24.5cm 2). 17. Surgical preparation, right medial breast, with incision and drainage of abscess and excisional debridement (28cm2) on March 11, 2016. 18. surgical preparation right axilla with excision hidradenitis (48 cm2) - 02/03/17 19. surgical preparation dorsum right hand with extension to long finger with incision and drainage and excisional debridement cat scratch infection (4 cm2) and incision and drainage tendon sheath for extensor tenosynovitis dorsum right hand with extension to long finger and surgical preparation dorsum left hand at proximal index finger with incision and drainage and excisional debridement cat scratch infection (2 cm2) and incision and drainage tendon sheath for extensor tenosynovitis dorsum left hand at proximal index finger - 03/22/17 20. Surgical preparation dorsum left hand at proximal index finger with excisional debridement cat scratch infection ulcer with proximal and distal advancement skin flaps reconstruction - 05/20/17 21. I AND D abscess left postauricular area - 12/02/17 MEDICATIONS: Buspirone, Clonidine, Duloxetine, Neurontin, Glipizide, Insulin, Bluejacket, Lubiprostone, Meloxicam, Metformin, Norgestrel Ethinyl Estradiol, Omeprazole, Quetiapine, Spironolactone, Tizanidine. ALLERGIES: None. SOCIAL HISTORY: The patient smokes. The patient does not drink alcohol. She does have a history of drug abuse and alcohol abuse. FAMILY HISTORY: Negative for skin cancer. Positive for lung disease, hypertension, asthma, thyroid disease, heart disease, kidney disease, seizures, cancer, and diabetes. REVIEW OF SYSTEMS: GENERAL: Complains of fatigue. Denies fever and weight loss. Has history of alcohol abuse and drug abuse. EYES: Denies eye pain. ENT: Denies nasal congestion and sore throat. CARDIOVASCULAR: Has fatigue. Denies chest pain, lightheadedness, and shortness of breath with exertion. RESPIRATORY: Complains of cough and shortness of breath. The patient is a smoker. Does have asthma. GI: Denies nausea, vomiting, diarrhea, or constipation. : Denies hematuria and urinary frequency. MUSCULOSKELETAL: Complains of joint pain, back pain, and arthritis. Denies stiffness, muscle weakness, and gout. Has symptoms of bilateral carpal tunnel syndrome with numbness in thumb and index fingers. INTEGUMENTARY: Denies skin cancer. Has recurrent hidradenitis posterior neck and occipital scalp. Had recent flare-up of right axillary hidradenitis that required surgical excision on 02/03/17. Had recent I AND D of left postauricular abscess on 12/02/17. Has new onset folliculitis left occipital hairline. NEURO: Denies headaches. Denies poor balance and weakness. PSYCH: Denies anxiety and depression. Has bipolar disorder. ENDOCRINE: Denies excessive thirst or urination. Has diabetes mellitus. HEMATOLOGIC: Denies abnormal bruising and fevers. PHYSICAL EXAMINATION: HEENT: Pupils equal, round, and reactive to light. Extraocular muscles intact. Throat is clear. In the left post-auricular area was an open surgical wound after I AND D of abscess that has healed. No further evidence of infection at this time. NECK: Supple. No bony tenderness. Has an area of redness, tenderness, and swelling in the posterior neck and occipital scalp. Located just superior to previous excision of hidradenitis and skin grafting. Measures 4 cm. No purulent drainage. No cervical adenopathy. LUNGS: Clear to auscultation. HEART: Regular rate and rhythm. ABDOMEN: Soft and nontender. Right lateral abdominal wall donor incision is healing well. BREASTS: Breasts are soft. No masses palpable. No evidence of recurrent infection. No axillary adenopathy. EXTREMITIES: No clubbing, cyanosis, or edema. On the left axillary area is a healed skin graft. In the right axilla is a healed ulcer. No axillary adenopathy noted bilaterally. On the right hand there is decreased sensation to pinprick to thumb and index finger. No thenar muscle atrophy. Positive Tinel's sign. Positive Phalen's sign. Fingers are warm with good capillary refill. On the left hand there is decreased sensation to pinprick to thumb and index finger. No thenar muscle atrophy. Positive Tinel's sign. Positive Phalen's sign. Fingers are warm with good capillary refill. Radial pulses are palpable. No elbow tenderness. Negative Tinel's at the elbow. NEURO: Cranial nerves II through XII grossly intact. Some paresthesias in the thumb and index finger bilaterally. ASSESSMENT 1. 4 cm recurrent hidradenitis posterior neck and occipital scalp. 2. Bilateral carpal tunnel syndrome, worse on the left. 3. Chronic neck pain. 4. Smoker. 5. Diabetes mellitus. PLAN: Will start her on Cleocin and Diflucan. She needs operative incision and drainage of this recurrent infection with excision of the residual hidradenitis. Will leave the wound open initially and pack with Silver dressing changes daily. Tissue will be sent to Pathology for analysis to rule out carcinoma and to Microbiology for culture. A positive culture will necessitate antibiotic therapy. Will schedule the surgery for next week to be done on under general anesthesia with a surgical observation overnight stay in the hospital. Her neck Xray was reviewed and was normal. Will eventually need NCV and EMG studies to assess for carpal tunnel. Will schedule those studies after her hidradenitis neck surgery has healed. Encouraged the patient to stop smoking as it may have deleterious effects on wound healing. Assessment AND Plan Problems 1. Hidradenitis suppurativa L73.2 2. Abscess of neck L02.11 3. Chronic neck pain M54.2; G89.29 4. Bilateral carpal tunnel syndrome G56.03 5. Diabetes E11.9 6. Smoker F17.200 Medications New: Coding Level of Care Code Off vis,est,level 4 Diagnoses Hidradenitis suppurativa L73.2 Abscess of neck L02.11 Chronic neck pain M54.2; G89.29 Bilateral carpal tunnel syndrome G56.03 Diabetes E11.9 Smoker F17.200 05/18/18 2315 <Electronically signed by Arias Boswell MD> Date Arias Boswell MD Cosigner Signature: Date (if applicable) CC: Aj Hope MD CBC-COMPLETE BLOOD CNT Collected: 05/16/2018 Status: F Source: [place] NO DIFF 3:53 PM [facility] REPOSITORY TYPE CODE TESTS RESULT OUT OF RANGE REFERENCE UNITS LAB L100.1000 4.4-11.0 K/mm3 High WBC 13.0 LAB L100.1200 4.2-5.4 M/mm3 Low RBC 3.85 LAB L100.1300 12.0-15.0 g/dl Low HGB 11.8 LAB L100.1400 37-47 % Low HCT 36.1 LAB L100.1500 81-99 fL Normal MCV 93.8 LAB L100.1600 27.0-32.0 pg Normal MCH 30.6 LAB L100.1700 32-36 g/gl Normal MCHC 32.7 LAB L100.1810 11.6-14.6 % High RDW CV 14.8 LAB L100.1820 35.1-43.9 fl High RDW SD 49.3 LAB L100.1900 150-450 K/mm3 Normal PLT 349 LAB L100.2000 6.2-12.0 fl Normal MPV 10.3 Performed By: #### L100.0500 #### [facility] [address] [place], [place], [address] HEMOGLOBIN A1C Collected: 05/16/2018 Status: F Source: MEY 3:53 PM [facility] REPOSITORY TYPE CODE TESTS RESULT OUT OF RANGE REFERENCE UNITS LAB L501.9985 4.2-6.3 % High HGB A1C 8.8 Performed By: #### L501.9985 #### [facility] [address] [place], [address] BASIC METABOLIC Collected: 05/16/2018 Status: F Source: MEY PROFILE (BMP) 3:53 PM [facility] REPOSITORY TYPE CODE TESTS RESULT OUT OF RANGE REFERENCE UNITS LAB L501.0100 74-106 mg/dL High GLU 264 Result Comment: Glucose result greater than or equal to 200 mg/dL suggests DIABETES MELLITUS per A.D.A. criteria. Please note revised GLUCOSE reference range effective 2017. LAB L501.1000 7-18 mg/dL Low BUN 5 LAB L501.1100 0.55-1.02 mg/dL High CREAT,SERUM 1.08 Result Comment: The validity of the calculated GFR AND GFRAA in patients over 70 years has not been determined. Clinical correlation is essential. LAB L501.1110 >60 mL/min Normal EST GFR 62 Result Comment: Non- GFR Calc LAB L501.1115 >60 mL/min Normal EST GFR - AA 75 Result Comment: GFR Calc LAB L501.1300 10-20 RATIO Low BUN/CRE 4.6 LAB L501.2200 8.5-10.1 mg/dL Normal CA 8.7 LAB L501.5300 136-145 mmol/L Normal NA 138 LAB L501.5600 3.5-5.1 mmol/L Normal K 3.8 LAB L501.5900 98-107 mmol/L Normal CL 105 LAB L501.6100 21.0-32.0 mmol/L Normal CO2 21.0 LAB L501.6200 5-15 Normal GAP 12 Performed By: #### L500.2500 #### [facility] [address] [facility] [place], [address] CERV SPINE 4 OR 5 Observed: 05/09/2018 Status: F Source: MEY VIEWS 10:46 AM [facility] REPOSITORY [facility] Imaging Services [address] [place], [place] [address] [address] Cerv Spine 4 or 5 Views MR#: [id number] Acct: [id number] Name: ROGER JIMENEZ Rep #: [id number] : 1985 F 32 From: Roly Candelario MD PCP: Aj Hope MD Status: REG CLI Study: Cerv Spine 4 or 5 Views Date of Exam: 05/09/18 Exam# [id number] Ordering Dr: Arias Boswell MD STUDY: X-RAY - CERVICAL SPINE REASON FOR EXAM: Female, 32 years old. Neck pain, hand pain and numbness TECHNIQUE: 7 view(s) of the cervical spine were obtained. COMPARISON: Prior study of 05/28/2015 FINDINGS: Normal anterior atlantoaxial articulation. Normal odontoid process. Normal cervical lordosis. Normal vertebral bodies and endplates. Normal disc space heights. Normal visualized intervertebral neuroforamina. The soft tissue structures are unremarkable. RAD/Cerv Spine 4 or 5 Views IMPRESSION: Normal x-ray examination of the visualized cervical spine. 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 REFERRING: Self CHIEF COMPLAINT: Low back, left lower extremity HISTORY OF CHIEF COMPLAINT: Requested outside medical records unavailable for review. The patient has apparently been seen and treated by Dr. Stephens in the recent past, specifics unknown. 32 year old female presents for initial evaluation given a greater than 10 year history of intractable lumbosacral pain which, as currently described, extends down the posterior lateral aspect of the left lower extremity typically ending at the distal calf level. The patient describes the pain as a constant deep dull aching and throbbing sensation with intermittent stabbing pain. Symptoms are notably exacerbated with prolonged sitting, prolonged standing, with performance of chores around the home and when transitioning from one position to another. The pain improves with rest and alternating use of ice or word/heat. Over the years the patient has, by description, undergone numerous interventional procedures including trigger point injections, epidural steroid injections, RFA, etc. with no durable relief. She has remotely pursued physical therapy and is reportedly performing a home exercise program primarily consisting of stretching. Modalities have been used, namely a TENS unit, without benefit. The patient has been prescribed a number of different medications for symptomatic management of her pain over the years including but not limited to Zanaflex, meloxicam, duloxetine, gabapentin, Dilaudid, Percocet, [place], Tylenol No. 3, Soma, Celebrex, cyclobenzaprine, Lodine, hydrocodone preparations, Dilaudid, Skelaxin, Robaxin, Lyrica, Relafen, OxyContin, Percocet, tramadol, trazodone, etc. with only the opioid analgesics providing partial benefit. The patient apparently underwent surgical evaluation and, per her understanding, was offered surgery (unclear as to whether or not this represented an L5-S1 disc arthroplasty versus fusion) which she is uninterested in pursuing. The patient denies specific motor or sensory changes. She denies any recent appreciable change in the general character or distribution of her symptoms. OARRS Report Reviewed: Yes, over the past year prescriptions provided for Dilaudid, oxycodone, hydrocodone, diazepam, few trans-, morphine sulfate, OxyContin, Duragesic. Pain Panel/Toxicology Available: October 02, 2017 pain panel positive for morphine, hydromorphone. September 29, 2017 tox screen negative. April 03, 2009 UDS positive for THC, benzodiazepines, opiates, tricyclic antidepressants. Current Anticoagulant Therapy: No ALLERGIES: Adhesive Tape (Rosins) CURRENT OUTPATIENT MEDICATIONS: Current Outpatient Prescriptions: tiZANidine (ZANAFLEX) 4 mg tablet TAKE 1 TABLET BY MOUTH EVERY SIX HOURS NEEDED meloxicam (MOBIC) 7.5 mg tablet TAKE 1 TABLET DAILY Lactobacillus acidophilus (PROBIOTIC) 10 billion cell cap Take 1 capsule by mouth twice daily for 14 days. benzonatate (TESSALON PERLE) 100 mg capsule Take 1 capsule by mouth three times daily as needed. albuterol HFA (PROVENTIL HFA, VENTOLIN HFA) 90 mcg/actuation inhaler Inhale 2 Puffs as instructed every 4 hours as needed. cetirizine (ZYRTEC) 10 mg tablet Take 1 tablet by mouth once daily. fluticasone (FLONASE) 50 mcg/actuation nasal spray Use 1 [place] in each nostril twice daily. Rinse mouth after use. atorvastatin (LIPITOR) 20 mg tablet TAKE 1 TABLET BY MOUTH AT BEDTIME FOR CHOLESTEROL gabapentin (NEURONTIN) 300 mg capsule Take 1 tablet four times daily glipiZIDE (GLUCOTROL) 10 mg tablet TAKE 1 TABLET EVERY MORNING AND 1/2 TABLET EVERY EVENING omeprazole (PRILOSEC) 20 mg capsule TAKE 1 CAPSULE BY MOUTH DAILY BEFORE BREAKFAST (1/2 HR. BEFORE MEAL) insulin aspart U-100 (NOVOLOG FLEXPEN U-100 INSULIN) 100 unit/mL inpn 4 Units with meals In addition to sliding scale insulin glargine (LANTUS SOLOSTAR U-100 INSULIN) 100 unit/mL (3 mL) inpn Inject 10 Units subcutaneously daily at bedtime. spironolactone (ALDACTONE) 100 mg tablet TAKE 1 TABLET BY MOUTH DAILY AMITIZA 24 mcg capsule TAKE 1 CAPSULE BY MOUTH TWICE DAILY WITH MEALS. metFORMIN (GLUCOPHAGE) 1,000 mg tablet TAKE 1 TABLET BY MOUTH TWICE DAILY. blood sugar diagnostic (TRUE METRIX GLUCOSE TEST STRIP) test strip Use as instructed, Testing 4 times a day. E11.9, no insulin Insulin [place], Disposable, (RAYNE PEN NEEDLE) 32 gauge x 5/32 ndle Use one needle for each dose. 4/day. CRYSELLE 0.3-30 mg-mcg per tablet TAKE 1 TABLET DAILY *TAKE ACTIVE PILLS FOR 12 WEEKS THEN TAKE [place] Blood-Glucose Meter (TRUE METRIX GLUCOSE METER) mis 1 Device three times daily as needed (Test as instructed, Diagnosis E11.9). blood sugar diagnostic (TRUE METRIX GLUCOSE TEST STRIP) test strip Use as instructed, E11.9, testing 2 to 3 times a day, no insulin Lancets lancets E11.9, testing 2 to 3 times a day, no insulin (may use True Metrix brand if available) lithium carbonate (ESKALITH) 300 mg capsule Take 300 mg by mouth twice daily with meals. blood sugar diagnostic (TRUETEST TEST STRIPS) test strip E11.9, testing 2-3 times a day, no insulin usage mometasone (ASMANEX TWISTHALER) 110 mcg (30 doses) twisthaler Inhale 1 Puff as instructed three times daily. DULoxetine (CYMBALTA) 30 mg capsule Take 1 capsule by mouth once daily. albuterol HFA (PROAIR HFA) 90 mcg/actuation inhaler Inhale 2 Puffs as instructed every 4 hours as needed. busPIRone 10 mg tablet Take 2 tablets by mouth three times daily. cloNIDine 0.1 mg ORAL tablet Take 0.1 mg by mouth once daily. duloxetine (CYMBALTA) 60 mg ORAL capsule Take 1 capsule by mouth once daily. quetiapine XR 400 mg ORAL 24 hr tablet Take 800 mg by mouth daily at bedtime. Blood-Glucose Meter (ACCU-CHEK ACTIVE CARE) Misc monitoring kit 1 Each as needed. No current facility-administered medications for this visit. PAST MEDICAL HISTORY: PAST MEDICAL HISTORY Diagnosis Date - Back pain DDD, will be seeing Dr. Guzmán - Bipolar disorder, unspecified (HCC) age 20 [facility] - Constipation - Diabetes mellitus type II 2010 - Hydradenitis - Hyperlipidemia 2010 - Left breast abscess 10/11/2014 - Overweight(278.02) childhood + FH - Postinflammatory skin changes 12/04/2012 - Scars 12/04/2012 - Spinal stenosis - Tobacco use disorder age 12 on/off since; longest cessation (as of 04/27) 1 year - Unspecified asthma(493.90) chencho high exercise-induced PAST SURGICAL HISTORY: PAST SURGICAL HISTORY Procedure Laterality Date - ASPIRATION BREAST CYST 08/2014 right - ASPIRATION BREAST CYST 09/2014 left - DELIVERY ONLY 03/29/07 , low cervical - COLONOSCOP W/ OR W/O [facility] SPE[facility] 10/18/12 Colonoscopy - EGD W/O OR W/BRUSH/WASH 10/18/12 EGD - FOOT SURGERY HX removal of cyst- right foot - ORAL SURGERY PROCEDURE [place]eth - PAST SURGICAL HISTORY OF age 17 CYST REMOVED UNDER LEFT ARM; [place] - PAST SURGICAL HISTORY OF Groin Surgery- hidra - PAST SURGICAL HISTORY OF neck surgery x 3 for hidradentitis - PAST SURGICAL HISTORY OF 02/03/2017 hidradentitis right under arm - REMOVAL OF TONSILS,12+ Y/O age 18 FAMILY HISTORY: FAMILY HISTORY Problem Relation Age of Onset - Arthritis Mother - Hypertension Mother - Heart Mother - Coronary Artery Disease Mother - Allergies Father - Heart Father first [place] at 43 (was smoker at the time) - Hypertension Father - Lipids Father - Diabetes Father age 50's - Arthritis Maternal Grandmother - Diabetes Maternal Grandmother late in life, type 2 (morbidly obese) - COPD Maternal Grandfather - Emphysema Maternal Grandfather - Hearing Loss Maternal Grandfather - Colon Cancer Other none SOCIAL HISTORY: Employment: Disabled secondary to her pain complaint/psychiatric history Marital Status: Single Children: 1 Tobacco: Approximate [id number] smoking history, currently three quarters pack per day Alcohol: History of alcohol abuse, no reported consumption for the last 8 years Illicit Drugs: Marijuana (last use 1 month ago), isolated cocaine use per patient report REVIEW OF SYSTEMS: General: Negative for weight loss, malaise or fevers. HEENT: Negative for epistaxis, frequent/significant headaches, changes in hearing or vision. Neck: Negative for lumps, goiter, pain or significant neck swelling. Cardiovascular: Negative for chest pain, palpitations or leg swelling. Respiratory: Negative for shortness of breath, cough or wheezing. GI: Negative for melena, hematochezia or change in bowel habits. : Negative for dysuria, frequency or incontinence. Skin: Negative for lesions, rash or pruritis. Psych: Negative for sleep disturbance, mood disorder or recent psychosocial stressors. See history of present illness Hematology/Lymphology: Negative for easy bruising/bleeding or lymphadenopathy. Endocrine: Negative for heat/cold intolerance, polyuria or polydipsia. All other reviewed and negative other than HPI. PHYSICAL EXAMINATION: 32-year-old female presents to the office alert and oriented ?3. The patient is in no apparent painful distress at rest. Ht 165.1 cm (5' 5) Wt 104.3 kg (230 lb) BMI 38.27 kg/m? HEENT: No thyromegaly. No cervical lymphadenopathy. Cor: RRR without murmur. Peripheral pulses +2/4 in the upper and lower extremities. No peripheral edema is noted. Capillary refill is brisk. Lungs: BS equal and CTA Abdomen: Soft, protuberant, non-tender. Without masses, organomegaly. Musculoskeletal: Postural tone is fair. Iliac crests are level. 2/5 Vikram signs are present. Gomez's test is negative. Gait is unremarkable. Muscle mass is symmetric in comparing the left versus right upper and lower extremities. A sacral torsion is not present. Neuro: Deep tendon reflexes are +2/4 biceps, triceps, brachioradialis, patellar, ankle jerk. Uribe signs are negative. Plantar reflexes are downgoing. Sensory examination is intact. CLINICAL IMPRESSION: 1. Lumbosacral/left lower extremity pain, etiology: Radicular-lumbar degenerative disc disease-PFCCP 2. Reactive airways disease 3. Tobacco use 4. Diabetes mellitus-hemoglobin A1c 9.2 on September 28, 2017 5. Bipolar disorder 6. Opioid abuse per history 7. Obesity 8. Hyperlipidemia 9. Alcohol abuse per history RECOMMENDATION/PLAN: 1. As noted the patient has pursued rather exhaustive conservative treatment or the above without durable relief or functional benefit. To the patient that from my standpoint the only reasonable option, depending upon her level of motivation, would be pursuing evaluation for entry into a full day interdisciplinary chronic pain rehabilitation program with chemical dependency evaluation. I explained to the patient that I do not recommend COT for her symptoms and I'm not optimistic that an approach short of the above is likely going to provide significant benefit. The patient was receptive to the referral and will be scheduled accordingly, patient education materials also provided. The patient is in agreement with the treatment plan. All questions the patient had were answered prior to leaving. Electronically Signed: Kvng Bedolla DO May 05, 2018 8:35 AM The consultation is to be transmitted via electronic medical record for those providers who practice within [facility] and for those with access to [email or web address] via MD Connect or via letter. LICO Observed: 05/05/2018 Status: COMPLETED Source: [place] 8:30 AM [facility] REPOSITORY Office Visit (PNMDNA) ROGER JIMENEZ ([id number]) 1985 F Date Time Provider Department 05/05/18 8:30 AM [facility] During your visit today, we recorded the following information about you: Weight Height 104.3 kg 1.651 m Kvng Bedolla, 05/05/2018 9:04 AM Signed NEW CONSULT The consultation is entered using voice recognition technology and may contain inaccurate syntax or word sense. REFERRING: Self CHIEF COMPLAINT: Low back, left lower extremity HISTORY OF CHIEF COMPLAINT: Requested outside medical records unavailable for review. The patient has apparently been seen and treated by Dr. Stephens in the recent past, specifics unknown. 32 year old female presents for initial evaluation given a greater than 10 year history of intractable lumbosacral pain which, as currently described, extends down the posterior lateral aspect of the left lower extremity typically ending at the distal calf level. The patient describes the pain as a constant deep dull aching and throbbing sensation with intermittent stabbing pain. Symptoms are notably exacerbated with prolonged sitting, prolonged standing, with performance of chores around the home and when transitioning from one position to another. The pain improves with rest and alternating use of ice or word/heat. Over the years the patient has, by description, undergone numerous interventional procedures including trigger point injections, epidural steroid injections, RFA, etc. with no durable relief. She has remotely pursued physical therapy and is reportedly performing a home exercise program primarily consisting of stretching. Modalities have been used, namely a TENS unit, without benefit. The patient has been prescribed a number of different medications for symptomatic management of her pain over the years including but not limited to Zanaflex, meloxicam, duloxetine, gabapentin, Dilaudid, Percocet, [place], Tylenol No. 3, Soma, Celebrex, cyclobenzaprine, Lodine, hydrocodone preparations, Dilaudid, Skelaxin, Robaxin, Lyrica, Relafen, OxyContin, Percocet, tramadol, trazodone, etc. with only the opioid analgesics providing partial benefit. The patient apparently underwent surgical evaluation and, per her understanding, was offered surgery (unclear as to whether or not this represented an L5-S1 disc arthroplasty versus fusion) which she is uninterested in pursuing. The patient denies specific motor or sensory changes. She denies any recent appreciable change in the general character or distribution of her symptoms. OARRS Report Reviewed: Yes, over the past year prescriptions provided for Dilaudid, oxycodone, hydrocodone, diazepam, few trans-, morphine sulfate, OxyContin, Duragesic. Pain Panel/Toxicology Available: October 02, 2017 pain panel positive for morphine, hydromorphone. September 29, 2017 tox screen negative. April 03, 2009 UDS positive for THC, benzodiazepines, opiates, tricyclic antidepressants. Current Anticoagulant Therapy: No ALLERGIES: Adhesive Tape (Rosins) CURRENT OUTPATIENT MEDICATIONS: Current Outpatient Prescriptions: tiZANidine (ZANAFLEX) 4 mg tablet TAKE 1 TABLET BY MOUTH EVERY SIX HOURS NEEDED meloxicam (MOBIC) 7.5 mg tablet TAKE 1 TABLET DAILY Lactobacillus acidophilus (PROBIOTIC) 10 billion cell cap Take 1 capsule by mouth twice daily for 14 days. benzonatate (TESSALON PERLE) 100 mg capsule Take 1 capsule by mouth three times daily as needed. albuterol HFA (PROVENTIL HFA, VENTOLIN HFA) 90 mcg/actuation inhaler Inhale 2 Puffs as instructed every 4 hours as needed. cetirizine (ZYRTEC) 10 mg tablet Take 1 tablet by mouth once daily. fluticasone (FLONASE) 50 mcg/actuation nasal spray Use 1 [place] in each nostril twice daily. Rinse mouth after use. atorvastatin (LIPITOR) 20 mg tablet TAKE 1 TABLET BY MOUTH AT BEDTIME FOR CHOLESTEROL gabapentin (NEURONTIN) 300 mg capsule Take 1 tablet four times daily glipiZIDE (GLUCOTROL) 10 mg tablet TAKE 1 TABLET EVERY MORNING AND 1/2 TABLET EVERY EVENING omeprazole (PRILOSEC) 20 mg capsule TAKE 1 CAPSULE BY MOUTH DAILY BEFORE BREAKFAST (1/2 HR. BEFORE MEAL) insulin aspart U-100 (NOVOLOG FLEXPEN U-100 INSULIN) 100 unit/mL inpn 4 Units with meals In addition to sliding scale insulin glargine (LANTUS SOLOSTAR U-100 INSULIN) 100 unit/mL (3 mL) inpn Inject 10 Units subcutaneously daily at bedtime. spironolactone (ALDACTONE) 100 mg tablet TAKE 1 TABLET BY MOUTH DAILY AMITIZA 24 mcg capsule TAKE 1 CAPSULE BY MOUTH TWICE DAILY WITH MEALS. metFORMIN (GLUCOPHAGE) 1,000 mg tablet TAKE 1 TABLET BY MOUTH TWICE DAILY. blood sugar diagnostic (TRUE METRIX GLUCOSE TEST STRIP) test strip Use as instructed, Testing 4 times a day. E11.9, no insulin Insulin [place], Disposable, (RAYNE PEN NEEDLE) 32 gauge x 5/32 ndle Use one needle for each dose. 4/day. CRYSELLE 0.3-30 mg-mcg per tablet TAKE 1 TABLET DAILY *TAKE ACTIVE PILLS FOR 12 WEEKS THEN TAKE [place] Blood-Glucose Meter (TRUE METRIX GLUCOSE METER) misc 1 Device three times daily as needed (Test as instructed, Diagnosis E11.9). blood sugar diagnostic (TRUE METRIX GLUCOSE TEST STRIP) test strip Use as instructed, E11.9, testing 2 to 3 times a day, no insulin Lancets lancets E11.9, testing 2 to 3 times a day, no insulin (may use True Metrix brand if available) lithium carbonate (ESKALITH) 300 mg capsule Take 300 mg by mouth twice daily with meals. blood sugar diagnostic (TRUETEST TEST STRIPS) test strip E11.9, testing 2-3 times a day, no insulin usage mometasone (ASMANEX TWISTHALER) 110 mcg (30 doses) twisthaler Inhale 1 Puff as instructed three times daily. DULoxetine (CYMBALTA) 30 mg capsule Take 1 capsule by mouth once daily. albuterol HFA (PROAIR HFA) 90 mcg/actuation inhaler Inhale 2 Puffs as instructed every 4 hours as needed. busPIRone 10 mg tablet Take 2 tablets by mouth three times daily. cloNIDine 0.1 mg ORAL tablet Take 0.1 mg by mouth once daily. duloxetine (CYMBALTA) 60 mg ORAL capsule Take 1 capsule by mouth once daily. quetiapine XR 400 mg ORAL 24 hr tablet Take 800 mg by mouth daily at bedtime. Blood-Glucose Meter (ACCU-CHEK ACTIVE CARE) Misc monitoring kit 1 Each as needed. No current facility-administered medications for this visit. PAST MEDICAL HISTORY: PAST MEDICAL HISTORY Diagnosis Date - Back pain DDD, will be seeing Dr. Guzmán - Bipolar disorder, unspecified (HCC) age 20 [facility] - Constipation - Diabetes mellitus type II 2010 - Hydradenitis - Hyperlipidemia 2010 - Left breast abscess 10/11/2014 - Overweight(278.02) childhood + FH - Postinflammatory skin changes 12/04/2012 - Scars 12/04/2012 - Spinal stenosis - Tobacco use disorder age 12 on/off since; longest cessation (as of 04/27) 1 year - Unspecified asthma(493.90) chencho high exercise-induced PAST SURGICAL HISTORY: PAST SURGICAL HISTORY Procedure Laterality Date - ASPIRATION BREAST CYST 08/2014 right - ASPIRATION BREAST CYST 09/2014 left - DELIVERY ONLY 03/29/07 , low cervical - COLONOSCOP W/ OR W/O BRSH SPEC 10/18/12 Colonoscopy - EGD W/O OR W/BRUSH/WASH 10/18/12 EGD - FOOT SURGERY HX removal of cyst- right foot - ORAL SURGERY PROCEDURE [place] Teeth - PAST SURGICAL HISTORY OF age 17 CYST REMOVED UNDER LEFT ARM; [place] - PAST SURGICAL HISTORY OF Groin Surgery- hidra - PAST SURGICAL HISTORY OF neck surgery x 3 for hidradentitis - PAST SURGICAL HISTORY OF 02/03/2017 hidradentitis right under arm - REMOVAL OF TONSILS,12+ Y/O age 18 FAMILY HISTORY: FAMILY HISTORY Problem Relation Age of Onset - Arthritis Mother - Hypertension Mother - Heart Mother - Coronary Artery Disease Mother - Allergies Father - Heart Father first [place] at 43 (was smoker at the time) - Hypertension Father - Lipids Father - Diabetes Father age 50's - Arthritis Maternal Grandmother - Diabetes Maternal Grandmother late in life, type 2 (morbidly obese) - COPD Maternal Grandfather - Emphysema Maternal Grandfather - Hearing Loss Maternal Grandfather - Colon Cancer Other none SOCIAL HISTORY: Employment: Disabled secondary to her pain complaint/psychiatric history Marital Status: Single Children: 1 Tobacco: Approximate 62-mbig-rwfo smoking history, currently three quarters pack per day Alcohol: History of alcohol abuse, no reported consumption for the last 8 years Illicit Drugs: Marijuana (last use 1 month ago), isolated cocaine use per patient report REVIEW OF SYSTEMS: General: Negative for weight loss, malaise or fevers. HEENT: Negative for epistaxis, frequent/significant headaches, changes in hearing or vision. Neck: Negative for lumps, goiter, pain or significant neck swelling. Cardiovascular: Negative for chest pain, palpitations or leg swelling. Respiratory: Negative for shortness of breath, cough or wheezing. GI: Negative for melena, hematochezia or change in bowel habits. : Negative for dysuria, frequency or incontinence. Skin: Negative for lesions, rash or pruritis. Psych: Negative for sleep disturbance, mood disorder or recent psychosocial stressors. See history of present illness Hematology/Lymphology: Negative for easy bruising/bleeding or lymphadenopathy. Endocrine: Negative for heat/cold intolerance, polyuria or polydipsia. All other reviewed and negative other than HPI. PHYSICAL EXAMINATION: 32-year-old female presents to the office alert and oriented ?3. The patient is in no apparent painful distress at rest. Ht 165.1 cm (5' 5) Wt 104.3 kg (230 lb) BMI 38.27 kg/m? HEENT: No thyromegaly. No cervical lymphadenopathy. Cor: RRR without murmur. Peripheral pulses +2/4 in the upper and lower extremities. No peripheral edema is noted. Capillary refill is brisk. Lungs: BS equal and CTA Abdomen: Soft, protuberant, non-tender. Without masses, organomegaly. Musculoskeletal: Postural tone is fair. Iliac crests are level. 2/5 Vikram signs are present. Gomez's test is negative. Gait is unremarkable. Muscle mass is symmetric in comparing the left versus right upper and lower extremities. A sacral torsion is not present. Neuro: Deep tendon reflexes are +2/4 biceps, triceps, brachioradialis, patellar, ankle jerk. Uribe signs are negative. Plantar reflexes are downgoing. Sensory examination is intact. CLINICAL IMPRESSION: 1. Lumbosacral/left lower extremity pain, etiology: Radicular-lumbar degenerative disc disease-PFCCP 2. Reactive airways disease 3. Tobacco use 4. Diabetes mellitus-hemoglobin A1c 9.2 on September 28, 2017 5. Bipolar disorder 6. Opioid abuse per history 7. Obesity 8. Hyperlipidemia 9. Alcohol abuse per history RECOMMENDATION/PLAN: 1. As noted the patient has pursued rather exhaustive conservative treatment or the above without durable relief or functional benefit. To the patient that from my standpoint the only reasonable option, depending upon her level of motivation, would be pursuing evaluation for entry into a full day interdisciplinary chronic pain rehabilitation program with chemical dependency evaluation. I explained to the patient that I do not recommend COT for her symptoms and I'm not optimistic that an approach short of the above is likely going to provide significant benefit. The patient was receptive to the referral and will be scheduled accordingly, patient education materials also provided. The patient is in agreement with the treatment plan. All questions the patient had were answered prior to leaving. Electronically Signed: Kvng Bedolla DO May 05, 2018 8:35 AM The consultation is to be transmitted via electronic medical record for those providers who practice within [facility] and for those with access to [email or web address] via MD Connect or via letter. Annabel Xie RN, RN 05/05/2018 8:51 AM Signed Consult Chronic pain program Referring Provider: SELF [[id number]] Allergies As of Date: 05/05/2018 Noted Allergy Reaction ADHESIVE TAPE (ROSINS) 02/03/2010 2 - Rash Date Reviewed: 05/05/2018 Reviewed by: Annabel Xie RN - Fully Assessed Primary Visit Diagnosis:Radicular pain of left lower extremity [M54.10] Other Visit Diagnosis:Psychosocial factors contributing to chronic pain [G89.29, F54] Order(s):CONSULT TO CHRONIC PAIN REHABILITATION (NON-PAIN ANESTHESIA) [[id number]] Order #: [id number]: 1 Prescriptions as of 05/05/2018 Sig: TIZANIDINE 4 MG TABLET TAKE 1 TABLET BY MOUTH EVERY * MELOXICAM 7.5 MG TABLET TAKE 1 TABLET DAILY LACTOBACILLUS ACIDOPHILUS 10 * Take 1 capsule by mouth twice* BENZONATATE 100 MG CAPSULE Take 1 capsule by mouth three* ALBUTEROL SULFATE HFA 90 MCG/* Inhale 2 Puffs as instructed * CETIRIZINE 10 MG TABLET Take 1 tablet by mouth once d* FLUTICASONE 50 MCG/ACTUATION * Use 1 [place] in each nostril t* ATORVASTATIN 20 MG TABLET TAKE 1 TABLET BY MOUTH AT BED* GABAPENTIN 300 MG CAPSULE Take 1 tablet four times daily GLIPIZIDE 10 MG TABLET TAKE 1 TABLET EVERY MORNING A* OMEPRAZOLE 20 MG CAPSULE,DIONISIO* TAKE 1 CAPSULE BY MOUTH DAILY* INSULIN ASPART U-100 100 UNI* 4 Units with meals In additi* INSULIN GLARGINE (U-100) 100 * Inject 10 Units subcutaneousl* SPIRONOLACTONE 100 MG TABLET TAKE 1 TABLET BY MOUTH DAILY AMITIZA 24 MCG CAPSULE TAKE 1 CAPSULE BY MOUTH TWICE* METFORMIN 1,000 MG TABLET TAKE 1 TABLET BY MOUTH TWICE * BLOOD SUGAR DIAGNOSTIC STRIPS Use as instructed, Testing 4 * PEN NEEDLE, DIABETIC 32 GAUGE* Use one needle for each dose.* CRYSELLE (28) 0.3 MG-30 MCG T* TAKE 1 TABLET DAILY *TAKE AC* BLOOD-GLUCOSE METER 1 Device three times daily as* BLOOD SUGAR DIAGNOSTIC STRIPS Use as instructed, E11.9, jonh* LANCETS E11.9, testing 2 to 3 times a* LITHIUM CARBONATE 300 MG CAPS* Take 300 mg by mouth twice da* BLOOD SUGAR DIAGNOSTIC STRIPS E11.9, testing 2-3 times a da* MOMETASONE 110 MCG (30 DOSES)* Inhale 1 Puff as instructed t* DULOXETINE 30 MG CAPSULE,DIONISIO* Take 1 capsule by mouth once * ALBUTEROL SULFATE HFA 90 MCG/* Inhale 2 Puffs as instructed * BUSPIRONE 10 MG TABLET Take 2 tablets by mouth three* * CLONIDINE HCL 0.1 MG TABLET Take 0.1 mg by mouth once baljeet* * DULOXETINE 60 MG CAPSULE,DIONISIO* Take 1 capsule by mouth once * * QUETIAPINE ER 400 MG TABLET,E* Take 800 mg by mouth daily at* BLOOD-GLUCOSE METER KIT 1 Each as needed. Problem List As Of Date 05/05/2018 Noted Resolved Supervision of normal first [Z34.00] INVALID FOR*06/16/2012 Bipolar disorder (HCC) [F31.9] More... Asthma [J45.909] More... TOBACCO USE DISORDER [F17.200] More... Overweight [E66.3] More... SCIATICA [M54.30] INVALID FOR* FATTY LIVER [K76.89] INVALID FOR* More... Cellulitis and abscess of trunk [L03.319, L02.2*INVALID FOR*07/13/2013 Other acne [L70.8] INVALID FOR*03/11/2017 HIDRADENITIS/SUPPURATIVA [L73.2] INVALID FOR*07/13/2013 Scar condition and fibrosis of skin [L90.5] INVALID FOR*03/11/2017 Sebaceous cyst [L72.3] INVALID FOR*03/11/2017 NO SHOW [375268] INVALID FOR*03/28/2009 Cannabis dependence, continuous [F12.20] INVALID FOR*07/13/2013 More... Opioid abuse, episodic [F11.10] INVALID FOR* Priority: Very Severe Class: Chronic More... Bipolar disorder (HCC) [F31.9] INVALID FOR*03/11/2017 Diabetes mellitus [E11.9] INVALID FOR* Constipation [K59.00] 03/11/2017 Hidradenitis suppurativa [L73.2] INVALID FOR* Cystic acne vulgaris [L70.0] INVALID FOR* Scars [L90.5] INVALID FOR*03/11/2017 Postinflammatory skin changes [R23.4] INVALID FOR*03/11/2017 Left breast abscess [N61.1] INVALID FOR*03/11/2017 Obesity, Class III, BMI 40-49.9 (morbid obesity*INVALID FOR* Other instructions from your clinician: Consult Chronic pain program Encounter Status:Closed by KVNG BEDOLLA DO on 05/05/18 PLASTIC SURGERY Observed: 04/16/2018 Status: F Source: [facility] VISIT REPORT 12:26 AM [facility] REPOSITORY [facility] [address] [place] [address] OFFICE VISIT Date of Service: 03/08/18 MR#: [id number] Acct: [id number] Name: ROGER JIMENEZ Rep #: [id number] : 1985 Provider: Arias Boswell MD Age/Sex: 32/F Location: [facility] Status: Signed Intake Vital Signs03/08/18 Height 5 ft 5 in 03/08/18 Weight: 241 lb 8 oz Intake Visit Reasons: evaluation carpal tunnel syndrome and chronic neck pain 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 Accompanied by: None Is patient in pain?: Yes (BEHIND LEFT EAR BURNING AND THROBBING) Pain scale (1-10): 4 Allergies lamotrigine [From Lamictal] Allergy (Mild, Verified 03/08/18 10:58) Rash adhesive tape Allergy (Verified 03/08/18 10:58) Rash Medications Buspirone HCl [Buspar] 20 mg PO TID 01/18/14 [History Confirmed 03/08/18] Clonidine HCl [Catapres] 0.1 mg PO DAILY 01/18/14 [History Confirmed 03/08/18] Duloxetine Hcl [Cymbalta] 90 mg PO DAILY 01/18/14 [History Confirmed 03/08/18] Metformin HCl [Glucophage] 1,000 mg PO BIDCM 01/18/14 [History Confirmed 03/08/18] Tizanidine HCl [Zanaflex] 4 mg PO 4X/DAY 01/18/14 [History Confirmed 03/08/18] glipiZIDE [Glucotrol] 15 mg PO DAILY@0730 01/18/14 [History Confirmed 03/08/18] Quetiapine Fumarate [Seroquel XR] 800 mg PO QHS 04/25/14 [History Confirmed 03/08/18] Meloxicam [Mobic] 7.5 mg PO DAILY 01/14/16 [History Confirmed 03/08/18] Spironolactone [Aldactone] 100 mg PO DAILY 01/14/16 [History Confirmed 03/08/18] Norgestrel-Ethinyl Estradiol [[place]-28 Tablet] 1 tab PO DAILY 01/20/16 [History Confirmed 03/08/18] Bluejacket Carbonate [Bluejacket Carbonate ER] 300 mg PO BID 05/10/16 [History Confirmed 03/08/18] gabapentin 300 mg capsule 300 mg PO 4X/DAY cap 12/01/17 [History Confirmed 03/08/18] Lubiprostone [Amitiza] 24 mcg PO BID 01/16/18 [History Confirmed 03/08/18] Omeprazole [Prilosec] 20 mg PO DAILY 01/16/18 [History Confirmed 03/08/18] hydromorphone 2 mg tablet 2 mg PO BID PRN #20 tab 01/19/18 [Rx Confirmed 03/08/18] insulin aspart U-100 100 unit/mL subcutaneous solution See Label Instructions SC TID ml 02/14/18 [History Confirmed 03/08/18] insulin glargine (U-100) 100 unit/mL subcutaneous solution 10 unit SC QHS 02/14/18 [History Confirmed 03/08/18] PFSH Medical History Cat scratch of left hand with infection (Acute) Cat scratch of right hand with infection (Acute) Cat scratch (Acute) Diabetes (Chronic) Hydradenitis (Chronic) Morbid obesity (Chronic) Bipolar affective (Chronic) Osteoarthritis (Chronic) Chronic back pain (Chronic) Diabetic leg ulcer (Chronic) Non-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 fat layer exposed (Chronic) Smoker (Chronic) Open wound of left axillary region (Acute) Skin graft failure (Chronic) Abscess of sternal region (Acute) Open wound of chest wall, complicated (Acute) H/O hidradenitis suppurativa (Chronic) Abscess of breast (Acute) Alcohol abuse (Acute) Anxiety and depression (Acute) Asthma (Acute) Back problem (Acute) Drug abuse (Acute) Frequent headaches (Acute) GERD (gastroesophageal reflux disease) (Acute) Hay fever (Acute) Hearing problem (Acute) Hidradenitis (Acute) High triglycerides (Acute) Hyperlipidemia (Acute) Kidney problem (Acute) Neuropathy (Acute) Non-healing surgical wound (Acute) Osteoarthritis (Acute) Partial thickness burn (Acute) Recurrent UTI (Acute) Sinus problem (Acute) Vision problem (Acute) HTN (hypertension) (Chronic) Surgical History History of incision and drainage (Chronic) History of section (Acute) History of tonsillectomy (Acute) Hidradenitis (Acute) [place] teeth removed (Acute) Family History Grandmother Thyroid disorder Father Diabetes Heart disease Hypertension High cholesterol Mother Heart disease Hypertension High cholesterol Social History household members: family, children number of children: 1 Smoking Status: Current every day smoker second hand exposure: No alcohol intake: former substance use type: former substance user what type of physical activity do you participate in: other seatbelt use: always do you feel safe at home: Yes additional social history: SUN EXPOSURE: OCCASIONALLY HPI evaluation carpal tunnel syndrome and chronic neck pain: Details: HISTORY OF PRESENT ILLNESS 32 year old woman presents with complaints of numbness in her thumb and index finger bilateraly over the last couple of months, worse on the left. She also has a history of chronic neck pain for which she had received injections by Dr. Stephens. she has not had any for the last seven months for personal reasons. She is in the process of going back to Pain Management to receive more injections at some point. At her last visit she also had some localized folliculitis in the left occipital hairline and that has resolved. She tolerated the Cleocin without problem. She presents at this time for further evaluation and treatment. PAST MEDICAL HISTORY: 1. Arthritis. 2. Asthma. 3. Back pain. 4. Alcohol abuse. 5. Drug abuse. 6. Frequent headaches. 7. Hay fever. 8. Hypertension. 9. Kidney problems. 10. Bipolar disorder. 11. Persistent cough. 12. Sinus problems. 13. Tonsillitis. 14. Left inguinal hidradenitis. 15. Right axillary hidradenitis. 16. Posterior neck hidradenitis. 17. Diabetes mellitus. 18. Right breast abscess. 19. Left breast abscess. 20. Non-healing diabetic ulcer, dorsal medial aspect, right foot. 21. Left axillary hidradenitis. 22. Non-healing diabetic ulcer, right medial leg. 23. Sternal chest wall abscess wound. 24. Abscess, right medial breast. 25. Cat scratch infection abscess dorsum right hand with extension to long finger. 26. Inflammatory extensor tenosynovitis dorsum right hand with extension to long finger. 27. Cat scratch infection abscess dorsum left hand at proximal index finger. 28. Inflammatory extensor tenosynovitis dorsum left hand at proximal index finger. 29. Smoker. PAST SURGICAL HISTORY: 1. Tonsillectomy. 2. . 3. [place] teeth removal. 4. Incision and drainage of inguinal hidradenitis. 5. Incision and drainage of axillary hidradenitis. 6. Excision of left inguinal hidradenitis and placement of wound VAC (21cm2) on February 05, 2009. 7. Excision of right axillary hidradenitis and placement of wound VAC (36cm2) on December 08, 2009. 8. Excisional debridement of hidradenitis, posterior neck (33 cm2) on April 25, 2014. 9. Excisional debridement of non-healing hidradenitis wound, posterior neck, with 10 cm secondary wound closure on May 15, 2014. 10. Incision and drainage and excisional debridement of non- healing postop infected hidradenitis ulcer, posterior neck (20cm 2), and debridement of partial-thickness, right superior-posterior neck (16cm 2) on June 26, 2014. 11. Incision and drainage, right breast abscess, September 17, 2014. 12. Incision and drainage of left breast abscess, October 11, 2014. 13. Surgical preparation, left axilla with excision of hidradenitis (88cm2) and surgical preparation, right medial leg, with excision of non-healing diabetic ulcer, right medial leg, and 4 cm complex secondary wound closure on January 20, 2016. 14. Excision debridement of left axillary hidradenitis wound with full-thickness skin graft reconstruction from the right lateral abdominal wall (5cm2) and placement of NPWT on February 12, 2016. 15. Surgical preparation, sternum chest wall wound, with excision and drainage of abscess and excisional debridement (14cm2) on March 05, 2016. 16. Closure of sternum chest wall open abscess wound with rhomboid transposition skin flap reconstruction (24.5cm 2). 17. Surgical preparation, right medial breast, with incision and drainage of abscess and excisional debridement (28cm2) on March 11, 2016. 18. surgical preparation right axilla with excision hidradenitis (48 cm2) - 02/03/17 19. surgical preparation dorsum right hand with extension to long finger with incision and drainage and excisional debridement cat scratch infection (4 cm2) and incision and drainage tendon sheath for extensor tenosynovitis dorsum right hand with extension to long finger and surgical preparation dorsum left hand at proximal index finger with incision and drainage and excisional debridement cat scratch infection (2 cm2) and incision and drainage tendon sheath for extensor tenosynovitis dorsum left hand at proximal index finger - 03/22/17 20. Surgical preparation dorsum left hand at proximal index finger with excisional debridement cat scratch infection ulcer with proximal and distal advancement skin flaps reconstruction - 05/20/17 21. I AND D abscess left postauricular area - 12/02/17 MEDICATIONS: Cymbalta, Seroquel, metformin, glipizide, ProAir, Zanaflex, Neurontin, fentanyl, Asmanex, buspirone, Klonopin, Amitiza, levonorgestrel-ethinyl estrad, and lithium and Percocet. ALLERGIES: None. SOCIAL HISTORY: The patient smokes. The patient does not drink alcohol. She does have a history of drug abuse and alcohol abuse. FAMILY HISTORY: Negative for skin cancer. Positive for lung disease, hypertension, asthma, thyroid disease, heart disease, kidney disease, seizures, cancer, and diabetes. REVIEW OF SYSTEMS: GENERAL: Complains of fatigue. Denies fever and weight loss. Has history of alcohol abuse and drug abuse. EYES: Denies eye pain. ENT: Denies nasal congestion and sore throat. CARDIOVASCULAR: Has fatigue. Denies chest pain, lightheadedness, and shortness of breath with exertion. RESPIRATORY: Complains of cough and shortness of breath. The patient is a smoker. Does have asthma. GI: Denies nausea, vomiting, diarrhea, or constipation. : Denies hematuria and urinary frequency. MUSCULOSKELETAL: Complains of joint pain, back pain, and arthritis. Denies stiffness, muscle weakness, and gout. Has symptoms of bilateral carpal tunnel syndrome with numbness in thumb and index fingers. INTEGUMENTARY: Denies skin cancer. Had recent flare-up of right axillary hidradenitis that required surgical excision on 02/03/17. Had recent I AND D of left postauricular abscess on 12/02/17. Has new onset folliculitis left occipital hairline. NEURO: Denies headaches. Denies poor balance and weakness. PSYCH: Denies anxiety and depression. Has bipolar disorder. ENDOCRINE: Denies excessive thirst or urination. Has diabetes mellitus. HEMATOLOGIC: Denies abnormal bruising and fevers. PHYSICAL EXAMINATION: HEENT: Pupils equal, round, and reactive to light. Extraocular muscles intact. Throat is clear. In the left post-auricular area was an open surgical wound after I AND D of abscess that has healed. No further evidence of infection at this time. At the level of the left occipital hairline was a row of folliculitis papules. Today they have resolved. She tolerated the Cleocin. NECK: Supple. No bony tenderness. Some pericervical soft tissue tenderness. No cervical adenopathy. LUNGS: Clear to auscultation. HEART: Regular rate and rhythm. ABDOMEN: Soft and nontender. Right lateral abdominal wall donor incision is healing well. BREASTS: Breasts are soft. No masses palpable. No evidence of recurrent infection. No axillary adenopathy. EXTREMITIES: No clubbing, cyanosis, or edema. On the left axillary area is a healed skin graft. In the right axilla is a healed ulcer. No axillary adenopathy noted bilaterally. On the right hand there is decreased sensation to pinprick to thumb and index finger. No thenar muscle atrophy. Positive Tinel's sign. Positive Phalen's sign. Fingers are warm with good capillary refill. On the left hand there is decreased sensation to pinprick to thumb and index finger. No thenar muscle atrophy. Positive Tinel's sign. Positive Phalen's sign. Fingers are warm with good capillary refill. Radial pulses are palpable. No elbow tenderness. Negative Tinel's at the elbow. NEURO: Cranial nerves II through XII grossly intact. Some paresthesias in the thumb and index finger bilaterally. ASSESSMENT 1. Bilateral carpal tunnel syndrome, worse on the left. 2. Chronic neck pain. 3. Localized folliculitis left occipital hairline, resolved. 4. Smoker. 5. Diabetes mellitus. PLAN: She will followup with Pain Management to continue having neck injections. Will need a neck Xray. Anything suspicious may warrant an MRI. Will eventually need NCV and EMG studies to assess for carpal tunnel. Want to make sure the carpal tunnel symptoms aren't related to her chronic neck issues. Followup after her studies are completed. She will followup with ENT in 3 months to further evaluate this postauricular cyst to see if there is any connection to a possible branchial cleft sinus noted on MRI. Encouraged the patient to stop smoking as it may have deleterious effects on wound healing. Assessment AND Plan Problems 1. Bilateral carpal tunnel syndrome G56.03 2. Chronic neck pain M54.2; G89.29 3. Folliculitis L73.9 4. Smoker F17.200 Coding Level of Care Code Off vis,est,level 4 Diagnoses Bilateral carpal tunnel syndrome G56.03 Chronic neck pain M54.2; G89.29 Folliculitis L73.9 Smoker F17.200 04/16/18 0026 <Electronically signed by Arias Boswell MD> Date Arias Boswell MD Cosigner Signature: Date (if applicable) CC: Aj Hope MD PROGRESS Observed: 04/11/2018 Status: COMPLETED Source: [place] 12:36 PM [facility] REPOSITORY HNO ID: [id number] Author: Vanda (Je) Eduardo Service: (none) Author Type: Nurse Practitioner Type: Progress Notes Filed: 04/11/2018 12:52 PM Note Text: Subjective The history is provided by the patient. No artillery meteorological man was used. NOBLE Jimenez is a 32 year old female who presents today for CC of cough, and congestion. This started 2 weeks ago. She is also having bilateral ear pain for a week, with increasing pressure Symptoms are worsened by leaning forward or sleeping. She has tried nyquil, benedryl, robitussin Risk factors daughter has been ill. PMH T2D, HTN, tonsillectomy BP 122/74 Pulse 102 Temp 37.4 ?C (99.3 ?F) (Tympanic) Resp 18 Wt 108 kg (238 lb) SpO2 99% BMI 39.61 kg/m? ALLERGIES Allergen Reactions - Adhesive Tape (Corinne* Rash ACTIVE PROBLEM LIST Bipolar Disorder (Hcc) Asthma Tobacco Use Disorder Overweight Sciatica FATTY LIVER Opioid abuse, episodic Diabetes Mellitus (Hcc) Hidradenitis Suppurativa Cystic Acne Vulgaris Obesity, Class Iii, Bmi 40-49.9 (Morbid Obesity) (Hcc) Family History Problem Relation Age of Onset - Arthritis Mother - Hypertension Mother - Heart Mother - Coronary Artery Disease Mother - Allergies Father - Heart Father first [place] at 43 (was smoker at the time) - Hypertension Father - Lipids Father - Diabetes Father age 50's - Arthritis Maternal Grandmother - Diabetes Maternal Grandmother late in life, type 2 (morbidly obese) - COPD Maternal Grandfather - Emphysema Maternal Grandfather - Hearing Loss Maternal Grandfather - Colon Cancer Other none Social History Marital status: Single Spouse name: Years of education: 14 Number of children: 1 Occupational History Occupation Employer Comment Disability Social History Main Topics Smoking status: Current Every Day Smoker Packs/day: 0.75 Years: 8.00 Types: Cigarettes Smokeless tobacco: Never Used Alcohol use: No Comment: not while ; at times problematic, before bipolar, age 11, and age [age]. None in past 4-5 yrs. Drug use: Yes Comment: No drugs in 4 yrs. previous use of marijuana, not while ; no IV's; cocaine only at the time of attempted suicide Sexual activity: Yes Partners with: Male control/protection: Pill Comment: no std's; 4 tattoos (all clean); no transfusions Other Topics Concern Service No Blood Transfusions No Caffeine Concern No Occupational Exposure No Hobby Hazards No Sleep Concern Yes Stress Concern No Weight Concern No Special Diet No Exercise No Seat Belt Yes Self-Exams Yes Review of Systems Constitutional: Negative. Negative for chills, fever and malaise/fatigue. HENT: Positive for congestion, ear pain, sinus pain and sore throat. Respiratory: Positive for cough. Negative for sputum production, shortness of breath and wheezing. Cardiovascular: Negative for chest pain. Musculoskeletal: Negative for myalgias. Skin: Negative for rash. Neurological: Negative for headaches (sinus). Objective Physical Exam Constitutional: She is well-developed, well-nourished, and in no distress. HENT: Head: Normocephalic and atraumatic. Right Ear: External ear and ear canal normal. Tympanic membrane is not injected, not erythematous, not retracted and not bulging. A middle ear effusion (pressure) is present. Left Ear: External ear and ear canal normal. Tympanic membrane is not injected, not erythematous, not retracted and not bulging. A middle ear effusion (pressure) is present. Nose: Mucosal edema and rhinorrhea present. Right sinus exhibits maxillary sinus tenderness and frontal sinus tenderness. Left sinus exhibits maxillary sinus tenderness and frontal sinus tenderness. Mouth/Throat: Uvula is midline and mucous membranes are normal. Posterior oropharyngeal erythema present. No oropharyngeal exudate, posterior oropharyngeal edema or tonsillar abscesses. Clear thick post nasal drainage Eyes: Conjunctivae and EOM are normal. Pupils are equal, round, and reactive to light. Neck: Normal range of motion. Cardiovascular: Normal rate, regular rhythm and normal heart sounds. Pulmonary/Chest: Effort normal. No respiratory distress. She has no decreased breath sounds. She has wheezes. She has no rhonchi. She has no rales. Lymphadenopathy: Head (right side): No submental, no submandibular, no tonsillar, no preauricular and no posterior auricular adenopathy present. Head (left side): No submental, no submandibular, no tonsillar, no preauricular and no posterior auricular adenopathy present. She has no cervical adenopathy. Right cervical: No superficial cervical and no posterior cervical adenopathy present. Left cervical: No superficial cervical and no posterior cervical adenopathy present. She has no axillary adenopathy. Right: No supraclavicular adenopathy present. Left: No supraclavicular adenopathy present. Skin: Skin is warm and dry. Psychiatric: Affect normal. Nursing note and vitals reviewed. ASSESSMENT/PLAN: 1. Sinobronchitis - ICD9: 473.9, 490, ICD10: J32.9, J40 - Will begin treatment with Augmentin 875 mg PO BID for 10 days - Supportive care with plenty of fluids, rest, and tylenol as needed - Follow up in one week if symptoms persist or worsen. -Increase fluid intake. Try to drink at least 8 glasses of non caffeinated fluids daily. --Rest as much as possible. -Do the nasal saline irrigation at least 2 x day to relieve nasal mucous and congestion: brands include Navin Med, Simply saline, [place] nasal spray, or even the generic store brand one is ok. Take the entire course of antibiotics as prescribed. DO NOT stop taking it early, even if you are feeling better. -Practice good hygiene, wash hands frequently. -Monitor for signs of worsening infection: increased temperature, pain in face, ear pain or headaches or increase in nasal congestion/mucous that is not improving. -Educated patient on side effects of medication. - Discussed use of albuterol inhaler as needed for cough, wheeze, shortness of breath You can take an OTC probiotic such as Culturelle or Align to help with stomach upset/loose stool that you may get as a side effect of the antibiotic. * Follow up with primary care provider if no improvement with treatment * Seek medical care immediately, call 911, go to ER if you have chest pain, difficulty breathing, shortness of breath, inability to swallow. - AMOXICILLIN 875 MG-POTASSIUM CLAVULANATE 125 MG TABLET - LACTOBACILLUS ACIDOPHILUS 10 BILLION CELL CAPSULE - BENZONATATE 100 MG CAPSULE - ALBUTEROL SULFATE HFA 90 MCG/ACTUATION AEROSOL INHALER - CETIRIZINE 10 MG TABLET - FLUTICASONE 50 MCG/ACTUATION NASAL SPRAY,SUSPENSION 2. Wheezing - ICD9: 786.07, ICD10: R06.2 Albuterol inhaler every 4-6 hours as needed. Vanda Clark APRN.JE Diagnosis and treatment plan were discussed and questions were answered to the patient's satisfaction. Pt acknowledged understanding of concepts and follow up plan. Specific signs and symptoms that would indicate the need for higher level of care were discussed in detail warranting prompt ER evaluation. Vanda Clark APRN.JE [place] Observed: 04/11/2018 Status: COMPLETED Source: [place] 12:30 PM [facility] REPOSITORY Office Visit ([facility]) ROGER JIMENEZ ([id number]) 1985 F Date Time Provider Department 04/11/18 12:30 PM VANDA CLARK (JE) [facility] During your visit today, we recorded the following information about you: Temperature Pulse Respiration Blood pressure 99.3 degrees 102/minute 18/minute 122/74 Weight 108 kg Vanda Clark APRN.CNP 04/11/2018 12:52 PM Signed Subjective The history is provided by the patient. No artillery meteorological man was used. HPI Roger Jimenez is a 32 year old female who presents today for CC of cough, and congestion. This started 2 weeks ago. She is also having bilateral ear pain for a week, with increasing pressure Symptoms are worsened by leaning forward or sleeping. She has tried nyquil, benedryl, robitussin Risk factors daughter has been ill. PMH T2D, HTN, tonsillectomy BP 122/74 Pulse 102 Temp 37.4 ?C (99.3 ?F) (Tympanic) Resp 18 Wt 108 kg (238 lb) SpO2 99% BMI 39.61 kg/m? ALLERGIES Allergen Reactions - Adhesive Tape (Corinne* Rash ACTIVE PROBLEM LIST Bipolar Disorder (Hcc) Asthma Tobacco Use Disorder Overweight Sciatica FATTY LIVER Opioid abuse, episodic Diabetes Mellitus (Hcc) Hidradenitis Suppurativa Cystic Acne Vulgaris Obesity, Class Iii, Bmi 40-49.9 (Morbid Obesity) ([facility]) Family History Problem Relation Age of Onset - Arthritis Mother - Hypertension Mother - Heart Mother - Coronary Artery Disease Mother - Allergies Father - Heart Father first [place] at 43 (was smoker at the time) - Hypertension Father - Lipids Father - Diabetes Father age 50's - Arthritis Maternal Grandmother - Diabetes Maternal Grandmother late in life, type 2 (morbidly obese) - COPD Maternal Grandfather - Emphysema Maternal Grandfather - Hearing Loss Maternal Grandfather - Colon Cancer Other none Social History Marital status: Single Spouse name: Years of education: 14 Number of children: 1 Occupational History Occupation Employer Comment Disability Social History Main Topics Smoking status: Current Every Day Smoker Packs/day: 0.75 Years: 8.00 Types: Cigarettes Smokeless tobacco: Never Used Alcohol use: No Comment: not while ; at times problematic, before bipolar, age 11, and age [age]. None in past 4-5 yrs. Drug use: Yes Comment: No drugs in 4 yrs. previous use of marijuana, not while ; no IV's; cocaine only at the time of attempted suicide Sexual activity: Yes Partners with: Male control/protection: Pill Comment: no std's; 4 tattoos (all clean); no transfusions Other Topics Concern Service No Blood Transfusions No Caffeine Concern No Occupational Exposure No Hobby Hazards No Sleep Concern Yes Stress Concern No Weight Concern No Special Diet No Exercise No Seat Belt Yes Self-Exams Yes Review of Systems Constitutional: Negative. Negative for chills, fever and malaise/fatigue. HENT: Positive for congestion, ear pain, sinus pain and sore throat. Respiratory: Positive for cough. Negative for sputum production, shortness of breath and wheezing. Cardiovascular: Negative for chest pain. Musculoskeletal: Negative for myalgias. Skin: Negative for rash. Neurological: Negative for headaches (sinus). Objective Physical Exam Constitutional: She is well-developed, well-nourished, and in no distress. HENT: Head: Normocephalic and atraumatic. Right Ear: External ear and ear canal normal. Tympanic membrane is not injected, not erythematous, not retracted and not bulging. A middle ear effusion (pressure) is present. Left Ear: External ear and ear canal normal. Tympanic membrane is not injected, not erythematous, not retracted and not bulging. A middle ear effusion (pressure) is present. Nose: Mucosal edema and rhinorrhea present. Right sinus exhibits maxillary sinus tenderness and frontal sinus tenderness. Left sinus exhibits maxillary sinus tenderness and frontal sinus tenderness. Mouth/Throat: Uvula is midline and mucous membranes are normal. Posterior oropharyngeal erythema present. No oropharyngeal exudate, posterior oropharyngeal edema or tonsillar abscesses. Clear thick post nasal drainage Eyes: Conjunctivae and EOM are normal. Pupils are equal, round, and reactive to light. Neck: Normal range of motion. Cardiovascular: Normal rate, regular rhythm and normal heart sounds. Pulmonary/Chest: Effort normal. No respiratory distress. She has no decreased breath sounds. She has wheezes. She has no rhonchi. She has no rales. Lymphadenopathy: Head (right side): No submental, no submandibular, no tonsillar, no preauricular and no posterior auricular adenopathy present. Head (left side): No submental, no submandibular, no tonsillar, no preauricular and no posterior auricular adenopathy present. She has no cervical adenopathy. Right cervical: No superficial cervical and no posterior cervical adenopathy present. Left cervical: No superficial cervical and no posterior cervical adenopathy present. She has no axillary adenopathy. Right: No supraclavicular adenopathy present. Left: No supraclavicular adenopathy present. Skin: Skin is warm and dry. Psychiatric: Affect normal. Nursing note and vitals reviewed. ASSESSMENT/PLAN: 1. Sinobronchitis - ICD9: 473.9, 490, ICD10: J32.9, J40 - Will begin treatment with Augmentin 875 mg PO BID for 10 days - Supportive care with plenty of fluids, rest, and tylenol as needed - Follow up in one week if symptoms persist or worsen. -Increase fluid intake. Try to drink at least 8 glasses of non caffeinated fluids daily. --Rest as much as possible. -Do the nasal saline irrigation at least 2 x day to relieve nasal mucous and congestion: brands include Navin Med, Simply saline, [place] nasal spray, or even the generic store brand one is ok. Take the entire course of antibiotics as prescribed. DO NOT stop taking it early, even if you are feeling better. -Practice good hygiene, wash hands frequently. -Monitor for signs of worsening infection: increased temperature, pain in face, ear pain or headaches or increase in nasal congestion/mucous that is not improving. -Educated patient on side effects of medication. - Discussed use of albuterol inhaler as needed for cough, wheeze, shortness of breath You can take an OTC probiotic such as Culturelle or Align to help with stomach upset/loose stool that you may get as a side effect of the antibiotic. * Follow up with primary care provider if no improvement with treatment * Seek medical care immediately, call 911, go to ER if you have chest pain, difficulty breathing, shortness of breath, inability to swallow. - AMOXICILLIN 875 MG-POTASSIUM CLAVULANATE 125 MG TABLET - LACTOBACILLUS ACIDOPHILUS 10 BILLION CELL CAPSULE - BENZONATATE 100 MG CAPSULE - ALBUTEROL SULFATE HFA 90 MCG/ACTUATION AEROSOL INHALER - CETIRIZINE 10 MG TABLET - FLUTICASONE 50 MCG/ACTUATION NASAL SPRAY,SUSPENSION 2. Wheezing - ICD9: 786.07, ICD10: R06.2 Albuterol inhaler every 4-6 hours as needed. Vanda Clark APRN.CNP Diagnosis and treatment plan were discussed and questions were answered to the patient's satisfaction. Pt acknowledged understanding of concepts and follow up plan. Specific signs and symptoms that would indicate the need for higher level of care were discussed in detail warranting prompt ER evaluation. JB Salgado APRN.CNP 04/11/2018 12:52 PM Addendum ASSESSMENT/PLAN: 1. Sinobronchitis - ICD9: 473.9, 490, ICD10: J32.9, J40 - Will begin treatment with Augmentin 875 mg PO BID for 10 days - Supportive care with plenty of fluids, rest, and tylenol as needed - Follow up in one week if symptoms persist or worsen. -Increase fluid intake. Try to drink at least 8 glasses of non caffeinated fluids daily. --Rest as much as possible. -Do the nasal saline irrigation at least 2 x day to relieve nasal mucous and congestion: brands include Navin Med, Simply saline, [place] nasal spray, or even the generic store brand one is ok. Take the entire course of antibiotics as prescribed. DO NOT stop taking it early, even if you are feeling better. -Practice good hygiene, wash hands frequently. -Monitor for signs of worsening infection: increased temperature, pain in face, ear pain or headaches or increase in nasal congestion/mucous that is not improving. -Educated patient on side effects of medication. - Discussed use of albuterol inhaler as needed for cough, wheeze, shortness of breath You can take an OTC probiotic such as Culturelle or Align to help with stomach upset/loose stool that you may get as a side effect of the antibiotic. * Follow up with primary care provider if no improvement with treatment * Seek medical care immediately, call 911, go to ER if you have chest pain, difficulty breathing, shortness of breath, inability to swallow. - AMOXICILLIN 875 MG-POTASSIUM CLAVULANATE 125 MG TABLET - LACTOBACILLUS ACIDOPHILUS 10 BILLION CELL CAPSULE - BENZONATATE 100 MG CAPSULE - ALBUTEROL SULFATE HFA 90 MCG/ACTUATION AEROSOL INHALER - CETIRIZINE 10 MG TABLET - FLUTICASONE 50 MCG/ACTUATION NASAL SPRAY,SUSPENSION 2. Wheezing - ICD9: 786.07, ICD10: R06.2 Albuterol inhaler every 4-6 hours as needed. Referring Provider: SELF [[id number]] Allergies As of Date: 04/11/2018 Noted Allergy Reaction ADHESIVE TAPE (ROSINS) 02/03/2010 2 - Rash Date Reviewed: 04/11/2018 Reviewed by: Vanda ([facility]) Eduardo - Fully Assessed Reason for Visit: Cough [28] Cmt: bilateral ear pain, sore throat, nasal congestion and drainage x 10 days Primary Visit Diagnosis:Sinobronchitis [J32.9, J40] Other Visit Diagnosis:Wheezing [R06.2] Order(s):amoxicillin-clavulanic acid (AUGMENTIN) 875-125 mg per tabletTake 1 tablet by mouth twice daily for 10 days.Disp: 20 tabletRfl: 0 Lactobacillus acidophilus (PROBIOTIC) 10 billion cell capTake 1 capsule by mouth twice daily for 14 days.Disp: 28 capsuleRfl: 0 benzonatate (TESSALON PERLE) 100 mg capsuleTake 1 capsule by mouth three times daily as needed.Disp: 30 capsuleRfl: 0 albuterol HFA (PROVENTIL HFA, VENTOLIN HFA) 90 mcg/actuation inhalerInhale 2 Puffs as instructed every 4 hours as needed.Disp: 1 InhalerRfl: 1 cetirizine (ZYRTEC) 10 mg tabletTake 1 tablet by mouth once daily.Disp: 30 tabletRfl: 0 fluticasone (FLONASE) 50 mcg/actuation nasal sprayUse 1 [place] in each nostril twice daily. Rinse mouth after use.Disp: 1 BottleRfl: 1 Prescriptions as of 04/11/2018 Sig: ATORVASTATIN 20 MG TABLET TAKE 1 TABLET BY MOUTH AT BED* MELOXICAM 7.5 MG TABLET TAKE 1 TABLET DAILY TIZANIDINE 4 MG TABLET TAKE 1 TABLET BY MOUTH EVERY * GLIPIZIDE 10 MG TABLET TAKE 1 TABLET EVERY MORNING A* OMEPRAZOLE 20 MG CAPSULE,DIONISIO* TAKE 1 CAPSULE BY MOUTH DAILY* INSULIN ASPART U-100 100 UNI* 4 Units with meals In additi* INSULIN GLARGINE (U-100) 100 * Inject 10 Units subcutaneousl* SPIRONOLACTONE 100 MG TABLET TAKE 1 TABLET BY MOUTH DAILY AMITIZA 24 MCG CAPSULE TAKE 1 CAPSULE BY MOUTH TWICE* METFORMIN 1,000 MG TABLET TAKE 1 TABLET BY MOUTH TWICE * BLOOD SUGAR DIAGNOSTIC STRIPS Use as instructed, Testing 4 * PEN NEEDLE, DIABETIC 32 GAUGE* Use one needle for each dose.* CRYSELLE (28) 0.3 MG-30 MCG T* TAKE 1 TABLET DAILY *TAKE AC* BLOOD-GLUCOSE METER 1 Device three times daily as* BLOOD SUGAR DIAGNOSTIC STRIPS Use as instructed, E11.9, jonh* LANCETS E11.9, testing 2 to 3 times a* LITHIUM CARBONATE 300 MG CAPS* Take 300 mg by mouth twice da* BLOOD SUGAR DIAGNOSTIC STRIPS E11.9, testing 2-3 times a da* MOMETASONE 110 MCG (30 DOSES)* Inhale 1 Puff as instructed t* DULOXETINE 30 MG CAPSULE,DIONISIO* Take 1 capsule by mouth once * ALBUTEROL SULFATE HFA 90 MCG/* Inhale 2 Puffs as instructed * BUSPIRONE 10 MG TABLET Take 2 tablets by mouth three* * CLONIDINE HCL 0.1 MG TABLET Take 0.1 mg by mouth once baljeet* * DULOXETINE 60 MG CAPSULE,DIONISIO* Take 1 capsule by mouth once * * QUETIAPINE ER 400 MG TABLET,E* Take 800 mg by mouth daily at* BLOOD-GLUCOSE METER KIT 1 Each as needed. AMOXICILLIN 875 MG-POTASSIUM * Take 1 tablet by mouth twice * LACTOBACILLUS ACIDOPHILUS 10 * Take 1 capsule by mouth twice* BENZONATATE 100 MG CAPSULE Take 1 capsule by mouth three* ALBUTEROL SULFATE HFA 90 MCG/* Inhale 2 Puffs as instructed * CETIRIZINE 10 MG TABLET Take 1 tablet by mouth once d* FLUTICASONE 50 MCG/ACTUATION * Use 1 [place] in each nostril t* GABAPENTIN 300 MG CAPSULE Take 1 tablet four times daily Problem List As Of Date 04/11/2018 Noted Resolved Supervision of normal first [Z34.00] INVALID FOR*06/16/2012 Bipolar disorder (HCC) [F31.9] More... Asthma [J45.909] More... TOBACCO USE DISORDER [F17.200] More... Overweight [E66.3] More... SCIATICA [M54.30] INVALID FOR* FATTY LIVER [K76.89] INVALID FOR* More... Cellulitis and abscess of trunk [L03.319, L02.2*INVALID FOR*07/13/2013 Other acne [L70.8] INVALID FOR*03/11/2017 HIDRADENITIS/SUPPURATIVA [L73.2] INVALID FOR*07/13/2013 Scar condition and fibrosis of skin [L90.5] INVALID FOR*03/11/2017 Sebaceous cyst [L72.3] INVALID FOR*03/11/2017 NO SHOW [104893] INVALID FOR*03/28/2009 Cannabis dependence, continuous [F12.20] INVALID FOR*07/13/2013 More... Opioid abuse, episodic [F11.10] INVALID FOR* Priority: Very Severe Class: Chronic More... Bipolar disorder (HCC) [F31.9] INVALID FOR*03/11/2017 Diabetes mellitus [E11.9] INVALID FOR* Constipation [K59.00] 03/11/2017 Hidradenitis suppurativa [L73.2] INVALID FOR* Cystic acne vulgaris [L70.0] INVALID FOR* Scars [L90.5] INVALID FOR*03/11/2017 Postinflammatory skin changes [R23.4] INVALID FOR*03/11/2017 Left breast abscess [N61.1] INVALID FOR*03/11/2017 Obesity, Class III, BMI 40-49.9 (morbid obesity*INVALID FOR* Other instructions from your clinician: ASSESSMENT/PLAN: 1. Sinobronchitis - ICD9: 473.9, 490, ICD10: J32.9, J40 - Will begin treatment with Augmentin 875 mg PO BID for 10 days - Supportive care with plenty of fluids, rest, and tylenol as needed - Follow up in one week if symptoms persist or worsen. -Increase fluid intake. Try to drink at least 8 glasses of non caffeinated fluids daily. --Rest as much as possible. -Do the nasal saline irrigation at least 2 x day to relieve nasal mucous and congestion: brands include Navin Med, Simply saline, [place] nasal spray, or even the generic store brand one is ok. Take the entire course of antibiotics as prescribed. DO NOT stop taking it early, even if you are feeling better. -Practice good hygiene, wash hands frequently. -Monitor for signs of worsening infection: increased temperature, pain in face, ear pain or headaches or increase in nasal congestion/mucous that is not improving. -Educated patient on side effects of medication. - Discussed use of albuterol inhaler as needed for cough, wheeze, shortness of breath You can take an OTC probiotic such as Culturelle or Align to help with stomach upset/loose stool that you may get as a side effect of the antibiotic. * Follow up with primary care provider if no improvement with treatment * Seek medical care immediately, call 911, go to ER if you have chest pain, difficulty breathing, shortness of breath, inability to swallow. - AMOXICILLIN 875 MG-POTASSIUM CLAVULANATE 125 MG TABLET - LACTOBACILLUS ACIDOPHILUS 10 BILLION CELL CAPSULE - BENZONATATE 100 MG CAPSULE - ALBUTEROL SULFATE HFA 90 MCG/ACTUATION AEROSOL INHALER - CETIRIZINE 10 MG TABLET - FLUTICASONE 50 MCG/ACTUATION NASAL SPRAY,SUSPENSION 2. Wheezing - ICD9: 786.07, ICD10: R06.2 Albuterol inhaler every 4-6 hours as needed. Prescriptions ordered this encounter Disp Refills Start End AMOXICILLIN 875 MG-POTASSIUM CLAVULA* 20 t* 0 04/11/2018 04/21/2018 Route: ORAL Sig: Take 1 tablet by mouth twice daily for 10 days. LACTOBACILLUS ACIDOPHILUS 10 BILLION* 28 c* 0 04/11/2018 04/25/2018 Route: ORAL Sig: Take 1 capsule by mouth twice daily for 14 days. BENZONATATE 100 MG CAPSULE 30 c* 0 04/11/2018 Route: ORAL Sig: Take 1 capsule by mouth three times daily as needed. ALBUTEROL SULFATE HFA 90 MCG/ACTUATI* 1 In* 1 04/11/2018 Route: INHALATION Sig: Inhale 2 Puffs as instructed every 4 hours as needed. CETIRIZINE 10 MG TABLET 30 t* 0 04/11/2018 Route: ORAL Sig: Take 1 tablet by mouth once daily. FLUTICASONE 50 MCG/ACTUATION NASAL S* 1 Terrance* 1 04/11/2018 Route: EACH NOSTRIL Sig: Use 1 [place] in each nostril twice daily. Rinse mouth after use. Encounter Status:Closed by VANDA CLAKR CNP on 04/11/18 PLASTIC SURGERY Observed: 03/07/2018 Status: F Source: [facility] VISIT REPORT 11:22 PM [facility] REPOSITORY [facility] [address] [place] [address] OFFICE VISIT Date of Service: 02/09/18 MR#: [id number] Acct: [id number] Name: ROGER JIMENEZ Rep #: [id number] : 1985 Provider: Arias Boswell MD Age/Sex: 32/F Location: [facility] Status: Signed Intake Vital Signs02/09/18 Height 5 ft 5 in 02/09/18 Weight: 251 lb 2 oz 02/09/18 Body Mass Index (BMI) 41.8 02/09/18 Respiratory Rate 18 Intake Visit Reasons: evaluation open surgical wound left post-auricular area after incision and drainage abscess 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 Accompanied by: None Is patient in pain?: Yes (left side of scalp at the hairline 3 new spots throbbing burning pressure ) Pain scale (1-10): 7 Allergies lamotrigine [From Lamictal] Allergy (Mild, Verified 02/14/18 14:05) Rash adhesive tape Allergy (Verified 02/14/18 14:05) Rash Medications Buspirone HCl [Buspar] 20 mg PO TID 01/18/14 [History Confirmed 02/14/18] Clonidine HCl [Catapres] 0.1 mg PO DAILY 01/18/14 [History Confirmed 02/14/18] Duloxetine Hcl [Cymbalta] 90 mg PO DAILY 01/18/14 [History Confirmed 02/14/18] Metformin HCl [Glucophage] 1,000 mg PO BIDCM 01/18/14 [History Confirmed 02/14/18] Tizanidine HCl [Zanaflex] 4 mg PO 4X/DAY 01/18/14 [History Confirmed 02/14/18] glipiZIDE [Glucotrol] 15 mg PO DAILY@0730 01/18/14 [History Confirmed 02/14/18] Quetiapine Fumarate [Seroquel XR] 800 mg PO QHS 04/25/14 [History Confirmed 02/14/18] Meloxicam [Mobic] 7.5 mg PO DAILY 01/14/16 [History Confirmed 02/14/18] Spironolactone [Aldactone] 100 mg PO DAILY 01/14/16 [History Confirmed 02/14/18] Norgestrel-Ethinyl Estradiol [Cryselle-28 Tablet] 1 tab PO DAILY 01/20/16 [History Confirmed 02/14/18] Bluejacket Carbonate [Bluejacket Carbonate ER] 300 mg PO BID 05/10/16 [History Confirmed 02/14/18] gabapentin 300 mg capsule 300 mg PO 4X/DAY cap 12/01/17 [History Confirmed 02/14/18] Lubiprostone [Amitiza] 24 mcg PO BID 01/16/18 [History Confirmed 02/14/18] Omeprazole [Prilosec] 20 mg PO DAILY 01/16/18 [History Confirmed 02/14/18] hydromorphone 2 mg tablet 2 mg PO BID PRN #20 tab 01/19/18 [Rx Confirmed 02/14/18] insulin aspart U-100 100 unit/mL subcutaneous solution See Label Instructions SC TID ml 02/14/18 [History Confirmed 02/14/18] insulin glargine (U-100) 100 unit/mL subcutaneous solution 10 unit SC QHS 02/14/18 [History Confirmed 02/14/18] Is last menstrual period known: Yes Post menopausal: No Patient : No PFSH Medical History Cat scratch of left hand with infection (Acute) Cat scratch of right hand with infection (Acute) Cat scratch (Acute) Diabetes (Chronic) Hydradenitis (Chronic) Morbid obesity (Chronic) Bipolar affective (Chronic) Osteoarthritis (Chronic) Chronic back pain (Chronic) Diabetic leg ulcer (Chronic) Non-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 fat layer exposed (Chronic) Smoker (Chronic) Open wound of left axillary region (Acute) Skin graft failure (Chronic) Abscess of sternal region (Acute) Open wound of chest wall, complicated (Acute) H/O hidradenitis suppurativa (Chronic) Abscess of breast (Acute) Alcohol abuse (Acute) Anxiety and depression (Acute) Asthma (Acute) Back problem (Acute) Drug abuse (Acute) Frequent headaches (Acute) GERD (gastroesophageal reflux disease) (Acute) Hay fever (Acute) Hearing problem (Acute) Hidradenitis (Acute) High triglycerides (Acute) Hyperlipidemia (Acute) Kidney problem (Acute) Neuropathy (Acute) Non-healing surgical wound (Acute) Osteoarthritis (Acute) Partial thickness burn (Acute) Recurrent UTI (Acute) Sinus problem (Acute) Vision problem (Acute) HTN (hypertension) (Chronic) Surgical History History of incision and drainage (Chronic) History of section (Acute) History of tonsillectomy (Acute) Hidradenitis (Acute) [place] teeth removed (Acute) Family History Grandmother Thyroid disorder Father Diabetes Heart disease Hypertension High cholesterol Mother Heart disease Hypertension High cholesterol Social History household members: family, children number of children: 1 Smoking Status: Current every day smoker second hand exposure: No alcohol intake: former substance use type: former substance user what type of physical activity do you participate in: other seatbelt use: always do you feel safe at home: Yes additional social history: SUN EXPOSURE: OCCASIONALLY HPI evaluation open surgical wound left post-auricular area after incision and drainage abscess: Details: HISTORY OF PRESENT ILLNESS 32 year old woman presents for continued management of an open surgical wound left post-auricular area after a recent operative incision and drainage procedure on 12/02/[address] Estrada. She presents today for continued wound care. She is also concerned about new onset bumps by her left occipital hairline. There has been occasional drainage. She denies any fever. Operative culture showed Staphylococcus aureus. She was placed on Clindamycin and has finished them. She started Silver dressing changes to the wound and has tolerated them thus far. She states she is having trouble packing the wound at this time. 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 She saw Dr. Jamison from ENT who feels this is probably a localized cyst and will continue to follow along with a repeat appointment in 3 months. If still present the cyst can be excised at that time. PAST MEDICAL HISTORY: 1. Arthritis. 2. Asthma. 3. Back pain. 4. Alcohol abuse. 5. Drug abuse. 6. Frequent headaches. 7. Hay fever. 8. Hypertension. 9. Kidney problems. 10. Bipolar disorder. 11. Persistent cough. 12. Sinus problems. 13. Tonsillitis. 14. Left inguinal hidradenitis. 15. Right axillary hidradenitis. 16. Posterior neck hidradenitis. 17. Diabetes mellitus. 18. Right breast abscess. 19. Left breast abscess. 20. Non-healing diabetic ulcer, dorsal medial aspect, right foot. 21. Left axillary hidradenitis. 22. Non-healing diabetic ulcer, right medial leg. 23. Sternal chest wall abscess wound. 24. Abscess, right medial breast. 25. Cat scratch infection abscess dorsum right hand with extension to long finger. 26. Inflammatory extensor tenosynovitis dorsum right hand with extension to long finger. 27. Cat scratch infection abscess dorsum left hand at proximal index finger. 28. Inflammatory extensor tenosynovitis dorsum left hand at proximal index finger. 29. Smoker. PAST SURGICAL HISTORY: 1. Tonsillectomy. 2. . 3. [place] teeth removal. 4. Incision and drainage of inguinal hidradenitis. 5. Incision and drainage of axillary hidradenitis. 6. Excision of left inguinal hidradenitis and placement of wound VAC (21cm2) on February 05, 2009. 7. Excision of right axillary hidradenitis and placement of wound VAC (36cm2) on December 08, 2009. 8. Excisional debridement of hidradenitis, posterior neck (33 cm2) on April 25, 2014. 9. Excisional debridement of non-healing hidradenitis wound, posterior neck, with 10 cm secondary wound closure on May 15, 2014. 10. Incision and drainage and excisional debridement of non- healing postop infected hidradenitis ulcer, posterior neck (20cm 2), and debridement of partial-thickness, right superior-posterior neck (16cm 2) on June 26, 2014. 11. Incision and drainage, right breast abscess, September 17, 2014. 12. Incision and drainage of left breast abscess, October 11, 2014. 13. Surgical preparation, left axilla with excision of hidradenitis (88cm2) and surgical preparation, right medial leg, with excision of non-healing diabetic ulcer, right medial leg, and 4 cm complex secondary wound closure on January 20, 2016. 14. Excision debridement of left axillary hidradenitis wound with full-thickness skin graft reconstruction from the right lateral abdominal wall (5cm2) and placement of NPWT on February 12, 2016. 15. Surgical preparation, sternum chest wall wound, with excision and drainage of abscess and excisional debridement (14cm2) on March 05, 2016. 16. Closure of sternum chest wall open abscess wound with rhomboid transposition skin flap reconstruction (24.5cm 2). 17. Surgical preparation, right medial breast, with incision and drainage of abscess and excisional debridement (28cm2) on March 11, 2016. 18. surgical preparation right axilla with excision hidradenitis (48 cm2) - 02/03/17 19. surgical preparation dorsum right hand with extension to long finger with incision and drainage and excisional debridement cat scratch infection (4 cm2) and incision and drainage tendon sheath for extensor tenosynovitis dorsum right hand with extension to long finger and surgical preparation dorsum left hand at proximal index finger with incision and drainage and excisional debridement cat scratch infection (2 cm2) and incision and drainage tendon sheath for extensor tenosynovitis dorsum left hand at proximal index finger - 03/22/17 20. Surgical preparation dorsum left hand at proximal index finger with excisional debridement cat scratch infection ulcer with proximal and distal advancement skin flaps reconstruction - 05/20/17 21. I AND D abscess left postauricular area - 12/02/17 MEDICATIONS: Cymbalta, Seroquel, metformin, glipizide, ProAir, Zanaflex, Neurontin, fentanyl, Asmanex, buspirone, Klonopin, Amitiza, levonorgestrel-ethinyl estrad, and lithium and Percocet. ALLERGIES: None. SOCIAL HISTORY: The patient smokes. The patient does not drink alcohol. She does have a history of drug abuse and alcohol abuse. FAMILY HISTORY: Negative for skin cancer. Positive for lung disease, hypertension, asthma, thyroid disease, heart disease, kidney disease, seizures, cancer, and diabetes. REVIEW OF SYSTEMS: GENERAL: Complains of fatigue. Denies fever and weight loss. Has history of alcohol abuse and drug abuse. EYES: Denies eye pain. ENT: Denies nasal congestion and sore throat. CARDIOVASCULAR: Has fatigue. Denies chest pain, lightheadedness, and shortness of breath with exertion. RESPIRATORY: Complains of cough and shortness of breath. The patient is a smoker. Does have asthma. GI: Denies nausea, vomiting, diarrhea, or constipation. : Denies hematuria and urinary frequency. MUSCULOSKELETAL: Complains of joint pain, back pain, and arthritis. Denies stiffness, muscle weakness, and gout. INTEGUMENTARY: Denies skin cancer. Had recent flare-up of right axillary hidradenitis that required surgical excision on 02/03/17. Had recent I AND D of left postauricular abscess on 12/02/17. Has new onset folliculitis left occipital hairline. NEURO: Denies headaches. Denies poor balance and weakness. PSYCH: Denies anxiety and depression. Has bipolar disorder. ENDOCRINE: Denies excessive thirst or urination. Has diabetes mellitus. HEMATOLOGIC: Denies abnormal bruising and fevers. PHYSICAL EXAMINATION: HEENT: Pupils equal, round, and reactive to light. Extraocular muscles intact. Throat is clear. In the left post-auricular area was an open surgical wound after I AND D of abscess that has healed. No further evidence of infection at this time. At the level of the left occipital hairline are a row of folliculitis papules. Slightly tender to palpation. Measures about 1 cm. No ulceration. No purulent drainage noted. NECK: Supple and nontender. No cervical adenopathy. LUNGS: Clear to auscultation. HEART: Regular rate and rhythm. ABDOMEN: Soft and nontender. Right lateral abdominal wall donor incision is healing well. BREASTS: Breasts are soft. No masses palpable. No evidence of recurrent infection. No axillary adenopathy. EXTREMITIES: No clubbing, cyanosis, or edema. On the left axillary area is a healed skin graft. In the right axilla is a healed ulcer. No axillary adenopathy noted bilaterally. NEURO: Cranial nerves II through XII grossly intact. ASSESSMENT 1. Surgical wound left post-auricular area after I AND D of abscess, healed. 2. Localized folliculitis left occipital hairline. 3. Smoker. 4. Diabetes mellitus. PLAN: Massage the scar with skin lotion daily to help soften up the scar. For the folliculitis, will start Cleocin for 14 days. Will add Diflucan since she states she gets yeast infections from antibiotics. If no improvement is noted with no response to the antibiotics, may need to see her PCP or a Core Finisher for evaluation to see if these papules represent eczema or psoriasis. Followup 2 weeks. She will followup with ENT in 3 months to further evaluate this postauricular cyst to see if there is any connection to a possible branchial cleft sinus noted on MRI. Encouraged the patient to stop smoking as it may have deleterious effects on wound healing. Assessment AND Plan Problems 1. Abscess of neck L02.11 2. History of incision and drainage Z98.890 3. Unspecified open wound of unspecified part of head, subsequent encounter S01.90XD 4. Unspecified open wound of unspecified part of neck, subsequent encounter S11.90XD 5. Folliculitis L73.9 6. Smoker F17.200 Coding Level of Care Code Off vis,est,level 3 Diagnoses Abscess of neck L02.11 History of incision and drainage Z98.890 Unspecified open wound of unspecified part of head, subsequent encounter S01.90XD Unspecified open wound of unspecified part of neck, subsequent encounter S11.90XD Folliculitis L73.9 Smoker F17.200 03/07/182 <Electronically signed by Arias Boswell MD> Date Arias Boswell MD Cosigner Signature: Date (if applicable) CC: Aj Hope MD ENDOCRINOLOGY VISIT Observed: 02/15/2018 Status: F Source: [place] REPORT 8:43 AM [facility] REPOSITORY [facility] [address] [place] [address] [address] [place] [address] OFFICE VISIT Date of Service: 02/14/18 MR#: [id number] Acct: [id number] Name: ROGER JIMENEZ Rep #: [id number] : 1985 Provider: Tran Sellers NP Age/Sex: 32/F Location: [facility] Status: Signed HPI History of present illness Roger Jimenez is a 32 year old female presents for follow up of diabetes type 2. Diagnosed in 2012. States she is currently taking lantus 20 units daily and meal coverage of 12 units. Her A1c is over 11 range. She feels she has not been controlled for a long time. Insulin was just recently started. She began on 10 units lantus and states over the last few weeks her PCP has increased her to a current dose of 20 untis. Pt denies difficulty with injections or self monitoring of BG. Denies any signs of infection or irritation at site of injections. Reports taking insulin as directed At time of visit: -Pt denies symptoms of hypertensive emergency (CP,SOB,GONZALEZ, or blurred vision) and hypotension(dizziness or lightheadedness) -Pt denies symptoms of hypoglycemia ( sweaty, confusion, anxiety, tremor, hunger, palpitations) and hyperglycemia ( polydipsia, polyuria) -Pt denies potential medication adverse effect. Hypoglycemia Aware of hypoglycemia: yes Able to self treat low BG: Yes Frequent low Blood sugar: No Has supply of glucagon: no She denies excessive thirst, increased frequency of urination, chest pain or dyspnea. Follows a diabetic diet, Is compliant with medication and is tolerating without side effects. SMBG Checks 4 or more times daily BG 240-500 range Type: type 2 Glucose control symptoms: Reports high post-meal glucose and high fasting glucose Weight and fatigue symptoms: Denies snoring Cardiopulmonary symptoms: Denies chest pain at rest, dyspnea on exertion, lightheadedness or myalgias GI symptoms: Denies constipation, diarrhea, nausea/dyspepsia or vomiting Other symptoms: Reports blurry vision and change in vision Self monitoring: Yes Dietary compliance: Diabetes: good Diabetes education in past year: Yes Glucose testing: demonstrates correct use of meter, understands testing schedule Sick day education - understands ketone testing: Yes Physical activity: regular Exam Const General: comfortable, no acute distress Nutritional Appearance: overweight Orientation: oriented x3 HENPR Head: normal to inspection, normocephalic Ears: hearing grossly normal bilaterally Mouth: oral mucosae normal, moist mucous membranes Teeth and gingiva: dentition normal Eyes General: appearance normal, both eyes and all related structures Eyelids: eyelids normal Conjunctivae: conjunctivae normal Pupils: PERRL Neck Neck: normal visual inspection, no lymphadenopathy Neck mass: Yes Thyroid: thyroid normal Resp Effort AND Inspection: normal respiratory effort, able to speak in complete sentences, symmetric chest movement Auscultation: Bilateral: Clear to Auscultation Cardio Rate: regular rate Rhythm: regular rhythm Heart Sounds: S1 normal, S2 normal GI Inspection: normal to inspection Auscultation: normal bowel sounds Palpation: soft Skin Lesions: other (Reoccuring infectious cysts.) Wounds: no wounds Hair: normal Nails: normal Diabetic Foot Pulses: L dorsalis pedis pulse: normal, R dorsalis pedis pulse: normal Monofilament test: Left foot: normal, Right foot: normal Neuro General: gait normal, moves all extremities Cognition: normal cognition Speech: speech normal Gait: normal gait Extrem General: normal to inspection, no pedal edema Psych Appearance: well kempt Mental Status: mental status grossly normal Mood: congruent mood Affect: normal affect Speech and Movement: speech and movement normal Attitude: cooperative Thought Process: normal Thought Content: normal Judgment: judgment good Intake Vital Signs02/14/18 Height 5 ft 5 in 02/14/18 Weight: 246 lb 8 oz 02/14/18 Body Mass Index (BMI) 41.0 02/14/18 Blood Pressure 109/78 02/14/18 Blood Pressure Location Lt popliteal 02/14/18 Blood Pressure Position Sitting Intake Visit Reasons: diabetes type 2 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 Accompanied by: Self Is patient in pain?: No Allergies lamotrigine [From Lamictal] Allergy (Mild, Verified 02/14/18 14:05) Rash adhesive tape Allergy (Verified 02/14/18 14:05) Rash Medications Buspirone HCl [Buspar] 20 mg PO TID 01/18/14 [History Confirmed 02/14/18] Clonidine HCl [Catapres] 0.1 mg PO DAILY 01/18/14 [History Confirmed 02/14/18] Duloxetine Hcl [Cymbalta] 90 mg PO DAILY 01/18/14 [History Confirmed 02/14/18] Metformin HCl [Glucophage] 1,000 mg PO BIDCM 01/18/14 [History Confirmed 02/14/18] Tizanidine HCl [Zanaflex] 4 mg PO 4X/DAY 01/18/14 [History Confirmed 02/14/18] glipiZIDE [Glucotrol] 15 mg PO DAILY@0730 01/18/14 [History Confirmed 02/14/18] Quetiapine Fumarate [Seroquel XR] 800 mg PO QHS 04/25/14 [History Confirmed 02/14/18] Meloxicam [Mobic] 7.5 mg PO DAILY 01/14/16 [History Confirmed 02/14/18] Spironolactone [Aldactone] 100 mg PO DAILY 01/14/16 [History Confirmed 02/14/18] Norgestrel-Ethinyl Estradiol [Cryselle-28 Tablet] 1 tab PO DAILY 01/20/16 [History Confirmed 02/14/18] Bluejacket Carbonate [Bluejacket Carbonate ER] 300 mg PO BID 05/10/16 [History Confirmed 02/14/18] gabapentin 300 mg capsule 300 mg PO 4X/DAY cap 12/01/17 [History Confirmed 02/14/18] Lubiprostone [Amitiza] 24 mcg PO BID 01/16/18 [History Confirmed 02/14/18] Omeprazole [Prilosec] 20 mg PO DAILY 01/16/18 [History Confirmed 02/14/18] hydromorphone 2 mg tablet 2 mg PO BID PRN #20 tab 01/19/18 [Rx Confirmed 02/14/18] insulin aspart U-100 100 unit/mL subcutaneous solution See Label Instructions SC TID ml 02/14/18 [History Confirmed 02/14/18] insulin glargine (U-100) 100 unit/mL subcutaneous solution 10 unit SC QHS 02/14/18 [History Confirmed 02/14/18] Is last menstrual period known: No Post menopausal: No Patient : No Nurse's Note: blood sugars : low : 240 high : 500+ PFSH Medical History Cat scratch of left hand with infection (Acute) Cat scratch of right hand with infection (Acute) Cat scratch (Acute) Diabetes (Chronic) Hydradenitis (Chronic) Morbid obesity (Chronic) Bipolar affective (Chronic) Osteoarthritis (Chronic) Chronic back pain (Chronic) Diabetic leg ulcer (Chronic) Non-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 fat layer exposed (Chronic) Smoker (Chronic) Open wound of left axillary region (Acute) Skin graft failure (Chronic) Abscess of sternal region (Acute) Open wound of chest wall, complicated (Acute) H/O hidradenitis suppurativa (Chronic) Abscess of breast (Acute) Alcohol abuse (Acute) Anxiety and depression (Acute) Asthma (Acute) Back problem (Acute) Drug abuse (Acute) Frequent headaches (Acute) GERD (gastroesophageal reflux disease) (Acute) Hay fever (Acute) Hearing problem (Acute) Hidradenitis (Acute) High triglycerides (Acute) Hyperlipidemia (Acute) Kidney problem (Acute) Neuropathy (Acute) Non-healing surgical wound (Acute) Osteoarthritis (Acute) Partial thickness burn (Acute) Recurrent UTI (Acute) Sinus problem (Acute) Vision problem (Acute) HTN (hypertension) (Chronic) Surgical History History of incision and drainage (Acute) History of section (Acute) History of tonsillectomy (Acute) Hidradenitis (Acute) [place] teeth removed (Acute) Family History Grandmother Thyroid disorder Father Diabetes Heart disease Hypertension High cholesterol Mother Heart disease Hypertension High cholesterol Social History household members: family, children number of children: 1 Smoking Status: Current every day smoker second hand exposure: No alcohol intake: former substance use type: former substance user what type of physical activity do you participate in: other seatbelt use: always do you feel safe at home: Yes additional social history: SUN EXPOSURE: OCCASIONALLY ROS Const Constitutional: Positive for chills, fatigue, fever(s) and night sweats; no anorexia, body ache, frequent falls, decreased energy, malaise, weakness, weight change, sleep problems, abnormal sleep pattern, change in appetite, other, headache(s), snoring or excessive sweating Eyes Eyes: Positive for blurry vision and change in vision; no double vision, discharge, dry eyes, bulging eyes, floaters, visual disturbances, eye pain, light sensitivity, spots in vision, tunnel vision or other ENT ENT: No abnormal hearing, ear pain, ear discharge, ear pressure, hearing loss, tinnitus, dizziness/vertigo, balance problems, nosebleed/epistaxis, nasal congestion, nasal obstruction, nose pain, sinus pressure, sinus pain, nasal discharge, post nasal drip, headache(s), facial pain, dental pain, dry mouth, bad breath, hoarseness, lip swelling, mouth lesions, mouth pain, sore throat, tongue swelling, throat swelling, other, difficulty swallowing or neck pain Resp Respiratory: No cough, change in phlegm color, chest congestion, excessive phlegm production, hemoptysis, pain on inspiration, shortness of breath, pain with cough, snoring, stridor, wheezing or other Cardio Cardiology: No chest pain at rest, chest pain with exertion, leg pain with exertion, excessive sweating, shortness of breath, dyspnea on exertion, generalized swelling, irregular heart rhythm, lightheadedness, orthopnea, radiating jaw, neck or arm pain, fast heart rate, slow heart rate, palpitations or other Gastro GI: No abdominal pain, belching, bloating, change in bowel habits, change in stool character, coffee ground emesis, constipation, cramping, diarrhea, heartburn, difficulty swallowing, feeling full early, excessive flatus, incontinent of stools, Vomiting blood/hematemesis, blood in stool, loose stools, Black,tarry stools, nausea/dyspepsia, pain with swallowing, vomiting or other Genitourinary-Female: Positive for urinary frequency; no difficulty urinating, burning urination, painful urination, urinary incontinence, urinary urgency, urinary hesitancy, urinary retention, blood in urine, Frequent nighttime urination/ nocturia, post void dribbling, suprapubic fullness, side pain, sexual problems, genital lesions, genital itching, hot flashes, abnormal periods, abnormal vaginal bleeding, absent period, painful periods, light periods, heavy periods, difficulty getting , painful intercourse, pelvic pain, vaginal dryness, vaginal odor, Vaginal Itching or other Musc Musculoskeletal: Positive for back pain; no abnormal walking, joint pain, deformity, joint swelling, limited range of motion, loss of height, muscle cramps, muscle weakness, decreased muscle mass, body aches, neck pain, numbness, radiating pain into limb, stiffness, tingling or other Skin Skin: No acne, hair loss, change in hair, nail changes, boil, change in skin color, dry skin, redness, excessive hair growth, yellowing of the skin, lesions, itching, rash, skin pain, skin ulcer, sores, skin swelling, wounds or other Breast Breast: No other Neuro Neurology: No frequent falls, weakness, visual disturbances, abnormal hearing, headache(s), abnormal walking, numbness or tingling Psych Psychiatric: No abnormal sleep pattern, No change in appetite Endo Endocrine: Positive for fatigue; no other or excessive sweating Aller/Imm Allergy/Immunologic: No lip swelling, tongue swelling, throat swelling, wheezing or itchy eyes Assessment AND Plan Problems 1. Uncontrolled type 2 diabetes mellitus without complication, without long-term current use of insulin E11.65 Plan Discussed pathophysiology of diabetes and self management. Instructed patient on checking BG readings in pairs. Introduced carb counting and ask patient to begin use of. Will increase insulin and have patient RTC in a few weeks Patient Instructions BG in pairs, before you eat and 2 hours later Carb count meals Use sliding scale of 1-25 to understand how BG are reacting to your insulin. Lantus increase by 3 units every 5 days until you have any BG in the 150 range, then stay at that dose. Reviewed self care. Medications Discontinued: Plan Detail Additional Comments 1. Please schedule follow up in 2-3 weeks. 2. Lab work one week before appointment. 3. Discussed importance of regular exercise and recommend starting or continuing a regular exercise program for good health. 4. The patient was encouraged to lose weight for good health 5. The importance of monitoring blood sugar regularly was reviewed. 6. The importance of monitoring the HBA1c level regularly was reviewed. 7. The importance of prper foot care and regularly checking feet to prevent sores and loss of limbs was reviewed. 8. The importance of keeping BP at or below 130/80 to prevent stroke, heart attacks, kidney failure, blindness was reviewed. Spent approximately 60 minutes with patient with over 50% of time spent in discussion and counseling regarding medication adjustment, symptoms and treatment of hypoglycemia, diet adherence, and checking BG before driving. Coding Level of Care Code Off vis,new,level 4 Diagnoses Uncontrolled type 2 diabetes mellitus without complication, without long-term current use of insulin E11.65 Diabetes mellitus assisted insulin use: without assisted use Diabetes mellitus complication status: without complication Time Spent (min) 60 Depression Screen PHQ-2/9 PHQ-2 Over the last 2 weeks, how often have you been bothered by any of the following problems? 1. Little interest or pleasure in doing things: several days 2. Feeling down, depressed, or hopeless: several days Total score: 2 If score is 2 or greater, continue 3. Trouble falling or staying asleep, or sleeping too much: more than half the days 4. Feeling tired or having little energy: several days 5. Poor appetite or overeating: several days 6. Feeling bad about yourself - or that you are a failure or have let yourself and your family down: several days 7. Trouble concentrating on things, such as reading the newspaper or watching television: several days 8. Moving or speaking so slowly that other people could have noticed? - Or the opposite - being so fidgety or restless that you have been moving around a lot more than usual: several days 9. Thoughts that you would be better off or of hurting yourself in some way: not at all Total score: 9 If you checked off any problems, how difficult have these problems made it for you to do your work, take care of things at home, or get along with other people?: somewhat difficult Source: Developed by Drs. Bravo Boyd, Laura Joe, Naun Bello and colleagues, with an educational chacha from [email or web address]. Scoring: Total Score Depression Severity Action 1-4 Minimal depression No action needed 5-9 Mild depression Repeat PHQ-9 at follow up 10-14 Moderate depression Make tx plan,consider counseling, fup, prescription 02/15/18 0843 <Electronically signed by Tran IRAHETA> Date Tran IRAHETA Cosigner Signature: Date (if applicable) CC: PLASTIC SURGERY Observed: 02/13/2018 Status: F Source: [facility] VISIT REPORT 12:22 AM [facility] [address] [place] [address] OFFICE VISIT Date of Service: 01/18/18 MR#: [id number] Acct: [id number] Name: ROGER JIMENEZ Rep #: [id number] : 1985 Provider: Arias Boswell MD Age/Sex: 32/F Location: [facility] Status: Signed Intake Vital Signs01/18/18 Body Mass Index (BMI) 40.8 01/18/18 Blood Pressure 113/81 01/18/18 Height 5 ft 5 in 01/18/18 Weight: 241 lb 4 oz Intake Visit Reasons: evaluation open surgical wound left post-auricular area after incision and drainage for abscess 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 Accompanied by: None Is patient in pain?: Yes (NECK/SCALP AREA THROBBING PAIN AND BLEEDS WHEN TOUCHED) Pain scale (1-10): 6 Allergies lamotrigine [From Lamictal] Allergy (Mild, Verified 02/09/18 14:20) Rash adhesive tape Allergy (Verified 02/09/18 14:20) Rash Medications Albuterol IH (ProAir) [Proair Hfa] 1 puff INHALATION Q4H PRN PRN 01/18/14 [History Confirmed 02/09/18] Buspirone HCl [Buspar] 20 mg PO TID 01/18/14 [History Confirmed 02/09/18] Clonidine HCl [Catapres] 0.1 mg PO DAILY 01/18/14 [History Confirmed 02/09/18] Duloxetine Hcl [Cymbalta] 90 mg PO DAILY 01/18/14 [History Confirmed 02/09/18] Metformin HCl [Glucophage] 1,000 mg PO BIDCM 01/18/14 [History Confirmed 02/09/18] Tizanidine HCl [Zanaflex] 4 mg PO 4X/DAY 01/18/14 [History Confirmed 02/09/18] glipiZIDE [Glucotrol] 15 mg PO DAILY@0730 01/18/14 [History Confirmed 02/09/18] Quetiapine Fumarate [Seroquel XR] 800 mg PO QHS 04/25/14 [History Confirmed 02/09/18] Meloxicam [Mobic] 7.5 mg PO DAILY 01/14/16 [History Confirmed 02/09/18] Spironolactone [Aldactone] 100 mg PO DAILY 01/14/16 [History Confirmed 02/09/18] Norgestrel-Ethinyl Estradiol [Cryselle-28 Tablet] 1 tab PO DAILY 01/20/16 [History Confirmed 02/09/18] Bluejacket Carbonate [Bluejacket Carbonate ER] 300 mg PO BID 05/10/16 [History Confirmed 02/09/18] Insulin Aspart [Novolog Flexpen] See Protocol [facility] 03/21/17 [History Confirmed 02/09/18] Insulin Glargine,Hum.rec.anlog [Lantus] 10 unit SQ QHS 03/21/17 [History Confirmed 02/09/18] gabapentin 300 mg capsule 300 mg PO 4X/DAY cap 12/01/17 [History Confirmed 02/09/18] Lubiprostone [Amitiza] 24 mcg PO BID 01/16/18 [History Confirmed 02/09/18] Omeprazole [Prilosec] 20 mg PO DAILY 01/16/18 [History Confirmed 02/09/18] fluconazole 100 mg tablet 100 mg PO BID #20 tab 01/19/18 [Rx Confirmed 02/09/18] hydromorphone 2 mg tablet 2 mg PO BID PRN #20 tab 01/19/18 [Rx Confirmed 02/09/18] PFSH Medical History Cat scratch of left hand with infection (Acute) Cat scratch of right hand with infection (Acute) Cat scratch (Acute) Diabetes (Chronic) Hydradenitis (Chronic) Morbid obesity (Chronic) Bipolar affective (Chronic) Osteoarthritis (Chronic) Chronic back pain (Chronic) Diabetic leg ulcer (Chronic) Non-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 fat layer exposed (Chronic) Smoker (Chronic) Open wound of left axillary region (Acute) Skin graft failure (Chronic) Abscess of sternal region (Acute) Open wound of chest wall, complicated (Acute) H/O hidradenitis suppurativa (Chronic) Abscess of breast (Acute) Alcohol abuse (Acute) Asthma (Acute) Drug abuse (Acute) Frequent headaches (Acute) Hay fever (Acute) Hidradenitis (Acute) Kidney problem (Acute) Non-healing surgical wound (Acute) Partial thickness burn (Acute) Sinus problem (Acute) HTN (hypertension) (Chronic) Surgical History History of incision and drainage (Acute) History of section (Acute) History of tonsillectomy (Acute) Hidradenitis (Acute) [place] teeth removed (Acute) Family History Grandmother Thyroid disorder Father Diabetes Heart disease Hypertension High cholesterol Mother Heart disease Hypertension High cholesterol Social History household members: family, children number of children: 1 Smoking Status: Current every day smoker second hand exposure: No alcohol intake: former substance use type: former substance user what type of physical activity do you participate in: other seatbelt use: always do you feel safe at home: Yes additional social history: SUN EXPOSURE: OCCASIONALLY HPI evaluation open surgical wound left post-auricular area after incision and drainage for abscess: Details: HISTORY OF PRESENT ILLNESS 32 year old woman presents for continued management of an open surgical wound left post-auricular area after a recent operative incision and drainage procedure on 12/02/[address] Estrada. She presents today for continued wound care. She states the muffled and buzzing sounds from her left ear are a little better. She denies any fever. Operative culture showed Staphylococcus aureus. She was placed on Clindamycin and has finished them. She started Silver dressing changes to the wound and is tolerating them thus far. 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 She was just recently in the ED on 01/16/18 for hyperglycemia with a glucose level in the 400's. Her HgbA1c was 11.0. PAST MEDICAL HISTORY: 1. Arthritis. 2. Asthma. 3. Back pain. 4. Alcohol abuse. 5. Drug abuse. 6. Frequent headaches. 7. Hay fever. 8. Hypertension. 9. Kidney problems. 10. Bipolar disorder. 11. Persistent cough. 12. Sinus problems. 13. Tonsillitis. 14. Left inguinal hidradenitis. 15. Right axillary hidradenitis. 16. Posterior neck hidradenitis. 17. Diabetes mellitus. 18. Right breast abscess. 19. Left breast abscess. 20. Non-healing diabetic ulcer, dorsal medial aspect, right foot. 21. Left axillary hidradenitis. 22. Non-healing diabetic ulcer, right medial leg. 23. Sternal chest wall abscess wound. 24. Abscess, right medial breast. 25. Cat scratch infection abscess dorsum right hand with extension to long finger. 26. Inflammatory extensor tenosynovitis dorsum right hand with extension to long finger. 27. Cat scratch infection abscess dorsum left hand at proximal index finger. 28. Inflammatory extensor tenosynovitis dorsum left hand at proximal index finger. 29. Smoker. PAST SURGICAL HISTORY: 1. Tonsillectomy. 2. . 3. [place] teeth removal. 4. Incision and drainage of inguinal hidradenitis. 5. Incision and drainage of axillary hidradenitis. 6. Excision of left inguinal hidradenitis and placement of wound VAC (21cm2) on February 05, 2009. 7. Excision of right axillary hidradenitis and placement of wound VAC (36cm2) on December 08, 2009. 8. Excisional debridement of hidradenitis, posterior neck (33 cm2) on April 25, 2014. 9. Excisional debridement of non-healing hidradenitis wound, posterior neck, with 10 cm secondary wound closure on May 15, 2014. 10. Incision and drainage and excisional debridement of non- healing postop infected hidradenitis ulcer, posterior neck (20cm 2), and debridement of partial-thickness, right superior-posterior neck (16cm 2) on June 26, 2014. 11. Incision and drainage, right breast abscess, September 17, 2014. 12. Incision and drainage of left breast abscess, October 11, 2014. 13. Surgical preparation, left axilla with excision of hidradenitis (88cm2) and surgical preparation, right medial leg, with excision of non-healing diabetic ulcer, right medial leg, and 4 cm complex secondary wound closure on January 20, 2016. 14. Excision debridement of left axillary hidradenitis wound with full-thickness skin graft reconstruction from the right lateral abdominal wall (5cm2) and placement of NPWT on February 12, 2016. 15. Surgical preparation, sternum chest wall wound, with excision and drainage of abscess and excisional debridement (14cm2) on March 05, 2016. 16. Closure of sternum chest wall open abscess wound with rhomboid transposition skin flap reconstruction (24.5cm 2). 17. Surgical preparation, right medial breast, with incision and drainage of abscess and excisional debridement (28cm2) on March 11, 2016. 18. surgical preparation right axilla with excision hidradenitis (48 cm2) - 02/03/17 19. surgical preparation dorsum right hand with extension to long finger with incision and drainage and excisional debridement cat scratch infection (4 cm2) and incision and drainage tendon sheath for extensor tenosynovitis dorsum right hand with extension to long finger and surgical preparation dorsum left hand at proximal index finger with incision and drainage and excisional debridement cat scratch infection (2 cm2) and incision and drainage tendon sheath for extensor tenosynovitis dorsum left hand at proximal index finger - 03/22/17 20. Surgical preparation dorsum left hand at proximal index finger with excisional debridement cat scratch infection ulcer with proximal and distal advancement skin flaps reconstruction - 05/20/17 21. I AND D abscess left postauricular area - 12/02/17 MEDICATIONS: Cymbalta, Seroquel, metformin, glipizide, ProAir, Zanaflex, Neurontin, fentanyl, Asmanex, buspirone, Klonopin, Amitiza, levonorgestrel-ethinyl estrad, and lithium and Percocet. ALLERGIES: None. SOCIAL HISTORY: The patient smokes. The patient does not drink alcohol. She does have a history of drug abuse and alcohol abuse. FAMILY HISTORY: Negative for skin cancer. Positive for lung disease, hypertension, asthma, thyroid disease, heart disease, kidney disease, seizures, cancer, and diabetes. REVIEW OF SYSTEMS: GENERAL: Complains of fatigue. Denies fever and weight loss. Has history of alcohol abuse and drug abuse. EYES: Denies eye pain. ENT: Denies nasal congestion and sore throat. CARDIOVASCULAR: Has fatigue. Denies chest pain, lightheadedness, and shortness of breath with exertion. RESPIRATORY: Complains of cough and shortness of breath. The patient is a smoker. Does have asthma. GI: Denies nausea, vomiting, diarrhea, or constipation. : Denies hematuria and urinary frequency. MUSCULOSKELETAL: Complains of joint pain, back pain, and arthritis. Denies stiffness, muscle weakness, and gout. INTEGUMENTARY: Denies skin cancer. Had recent flare-up of right axillary hidradenitis that required surgical excision on 02/03/17. Had recent I AND D of left postauricular abscess on 12/02/17. NEURO: Denies headaches. Denies poor balance and weakness. PSYCH: Denies anxiety and depression. Has bipolar disorder. ENDOCRINE: Denies excessive thirst or urination. Has diabetes mellitus. HEMATOLOGIC: Denies abnormal bruising and fevers. PHYSICAL EXAMINATION: HEENT: Pupils equal, round, and reactive to light. Extraocular muscles intact. Throat is clear. In the left post-auricular area is a open surgical wound after I AND D of abscess. Measures smaller at 1.3 cm in length. Granulation tissue seen. Wound is tender to palpation. No further evidence of infection at this time. NECK: Supple and nontender. No cervical adenopathy. LUNGS: Clear to auscultation. HEART: Regular rate and rhythm. ABDOMEN: Soft and nontender. Right lateral abdominal wall donor incision is healing well. BREASTS: Breasts are soft. No masses palpable. No evidence of recurrent infection. No axillary adenopathy. EXTREMITIES: No clubbing, cyanosis, or edema. On the left axillary area is a healed skin graft. In the right axilla is a healed ulcer. No axillary adenopathy noted bilaterally. NEURO: Cranial nerves II through XII grossly intact. ASSESSMENT 1. Open surgical wound left post-auricular area after I AND D of abscess, healing. 2. Smoker. 3. Diabetes mellitus. PLAN: DEBRIDEMENT NOTE Using a #3 curette, I sharply debrided the wound down into the subcutaneous tissue as an excisional debridement. Good bleeding was seen in the subcutaneous tissue. Some of the subcutaneous tissue was removed with the excisional debridement. In addition to the subcutaneous tissue, I also debrided some senescent cells, some increased bioburden, and some devitalized tissue. Patient tolerated the procedure well. Hemostasis obtained with gentle pressure. The wound was redressed with Silver dressing. The length of the wound increased after the excisional debridement to 1.4 cm. Continue Silver dressing changes daily to the left post-auricular wound. She states it is getting a little dry. So she can moisten the Silver. She has finished the Cleocin antibiotic. The muffled and buzzing sounds have improved a little and could be related to some blood or betadine from the surgery getting in the ear canal. She has not called her PCP yet to have her ear canal irrigated out. If it is persistent over time, this abscess that was drained could be related to a process involving the mastoid. An MRI was done on 01/13/18 which showed a possible first branchial cleft sinus. Will make an appointment for her to be evaluated by ENT. Since the wound continues to get smaller, will hold off on the Wound Center at this time and will continue to see her in my office. It should continue to heal in secondarily with wound care. Encouraged the patient to stop smoking as it may have deleterious effects on wound healing. Followup 2 weeks. Assessment AND Plan Problems 1. Unspecified open wound of unspecified part of head, subsequent encounter S01.90XD 2. Abscess of neck L02.11 3. 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 History of incision and drainage Z98.890 5. Smoker F17.200 6. 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 History of incision and drainage Z98.890 Smoker F17.200 Unspecified open wound of unspecified part of neck, subsequent encounter S11.90XD 02/13/18 0022 <Electronically signed by Arias Boswell MD> Date Arias Boswell MD Cosigner Signature: Date (if applicable) CC: Aj Hope MD PLASTIC SURGERY Observed: 01/19/2018 Status: F Source: [facility] VISIT REPORT 9:12 AM [facility] [address] [address] OFFICE VISIT Date of Service: 12/29/17 MR#: [id number] Acct: [id number] Name: ROGER JIMENEZ Rep #: [id number] : 1985 Provider: Arias Boswell MD Age/Sex: 32/F Location: [facility] Status: Signed Intake Vital Signs12/29/17 Body Mass Index (BMI) 40.8 12/29/17 Height 5 ft 5 in 12/29/17 Weight: 243 lb Intake Visit Reasons: evaluatin open surgical wound left post-auricular area after incision and and drainage abscess 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 Accompanied by: None Is patient in pain?: Yes (left side of the neck behind the ear pain is throbbing ) Pain scale (1-10): 6 Allergies lamotrigine [From Lamictal] Allergy (Mild, Verified 01/18/18 11:30) Rash adhesive tape Allergy (Verified 01/18/18 11:30) Rash Medications Albuterol IH (ProAir) [Proair Hfa] 1 puff INHALATION Q4H PRN PRN 01/18/14 [History Confirmed 01/18/18] Buspirone HCl [Buspar] 20 mg PO TID 01/18/14 [History Confirmed 01/18/18] Clonidine HCl [Catapres] 0.1 mg PO DAILY 01/18/14 [History Confirmed 01/18/18] Duloxetine Hcl [Cymbalta] 90 mg PO DAILY 01/18/14 [History Confirmed 01/18/18] GlipiZIDE [Glucotrol] 15 mg PO DAILY@0730 01/18/14 [History Confirmed 01/18/18] Metformin HCl [Glucophage] 1,000 mg PO BIDCM 01/18/14 [History Confirmed 01/18/18] Tizanidine HCl [Zanaflex] 4 mg PO 4X/DAY 01/18/14 [History Confirmed 01/18/18] Quetiapine Fumarate [Seroquel XR] 800 mg PO QHS 04/25/14 [History Confirmed 01/18/18] Meloxicam [Mobic] 7.5 mg PO DAILY 01/14/16 [History Confirmed 01/18/18] Spironolactone [Aldactone] 100 mg PO DAILY 01/14/16 [History Confirmed 01/18/18] Norgestrel-Ethinyl Estradiol [Cryselle-28 Tablet] 1 tab PO DAILY 01/20/16 [History Confirmed 01/18/18] Bluejacket Carbonate [Bluejacket Carbonate ER] 300 mg PO BID 05/10/16 [History Confirmed 01/18/18] Insulin Aspart [Novolog Flexpen] See Protocol [facility] 03/21/17 [History Confirmed 01/18/18] Insulin Glargine,Hum.rec.anlog [Lantus] 10 unit SQ QHS 03/21/17 [History Confirmed 01/18/18] gabapentin 300 mg capsule 300 mg PO 4X/DAY cap 12/01/17 [History Confirmed 01/18/18] Lubiprostone [Amitiza] 24 mcg PO BID 01/16/18 [History Confirmed 01/18/18] Omeprazole [Prilosec] 20 mg PO DAILY 01/16/18 [History Confirmed 01/18/18] fluconazole 100 mg tablet 100 mg PO BID #20 tab 01/19/18 [Rx Confirmed 01/19/18] hydromorphone 2 mg tablet 2 mg PO BID PRN #20 tab 01/19/18 [Rx Confirmed 01/19/18] oxycodone-acetaminophen 5 mg-325 mg tablet See Label Instructions PO 4X/DAY PRN #20 tab 01/19/18 [Rx Confirmed 01/19/18] oxycodone-acetaminophen 5 mg-325 mg tablet See Label Instructions PO BID PRN #20 tab 01/19/18 [Rx Confirmed 01/19/18] PFSH Medical History Cat scratch of left hand with infection (Acute) Cat scratch of right hand with infection (Acute) Cat scratch (Acute) Diabetes (Chronic) Hydradenitis (Chronic) Morbid obesity (Chronic) Bipolar affective (Chronic) Osteoarthritis (Chronic) Chronic back pain (Chronic) Diabetic leg ulcer (Chronic) Non-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 fat layer exposed (Chronic) Smoker (Chronic) Open wound of left axillary region (Acute) Skin graft failure (Chronic) Abscess of sternal region (Acute) Open wound of chest wall, complicated (Acute) H/O hidradenitis suppurativa (Chronic) Abscess of breast (Acute) Alcohol abuse (Acute) Asthma (Acute) Drug abuse (Acute) Frequent headaches (Acute) Hay fever (Acute) Hidradenitis (Acute) Kidney problem (Acute) Non-healing surgical wound (Acute) Partial thickness burn (Acute) Sinus problem (Acute) HTN (hypertension) (Chronic) Surgical History History of incision and drainage (Acute) History of section (Acute) History of tonsillectomy (Acute) Hidradenitis (Acute) [place] teeth removed (Acute) Family History Grandmother Thyroid disorder Father Diabetes Heart disease Hypertension High cholesterol Mother Heart disease Hypertension High cholesterol Social History household members: family, children number of children: 1 Smoking Status: Current every day smoker second hand exposure: No alcohol intake: former substance use type: former substance user what type of physical activity do you participate in: other seatbelt use: always do you feel safe at home: Yes additional social history: SUN EXPOSURE: OCCASIONALLY HPI evaluatin open surgical wound left post-auricular area after incision and and drainage abscess: Details: HISTORY OF PRESENT ILLNESS 32 year old woman presents for continued management of an open surgical wound left post-auricular area after a recent operative incision and drainage procedure on 12/02/[address] Estrada. She presents today for continued wound care. She states the muffled and buzzing sounds from her left ear are a little better. She denies any fever. Operative culture showed Staphylococcus aureus. She was placed on Clindamycin and has finished them. She started Silver dressing changes to the wound and is tolerating them thus far. Her MRI has been approved and is scheduled for 01/13/18. PAST MEDICAL HISTORY: 1. Arthritis. 2. Asthma. 3. Back pain. 4. Alcohol abuse. 5. Drug abuse. 6. Frequent headaches. 7. Hay fever. 8. Hypertension. 9. Kidney problems. 10. Bipolar disorder. 11. Persistent cough. 12. Sinus problems. 13. Tonsillitis. 14. Left inguinal hidradenitis. 15. Right axillary hidradenitis. 16. Posterior neck hidradenitis. 17. Diabetes mellitus. 18. Right breast abscess. 19. Left breast abscess. 20. Non-healing diabetic ulcer, dorsal medial aspect, right foot. 21. Left axillary hidradenitis. 22. Non-healing diabetic ulcer, right medial leg. 23. Sternal chest wall abscess wound. 24. Abscess, right medial breast. 25. Cat scratch infection abscess dorsum right hand with extension to long finger. 26. Inflammatory extensor tenosynovitis dorsum right hand with extension to long finger. 27. Cat scratch infection abscess dorsum left hand at proximal index finger. 28. Inflammatory extensor tenosynovitis dorsum left hand at proximal index finger. 29. Smoker. PAST SURGICAL HISTORY: 1. Tonsillectomy. 2. . 3. [place] teeth removal. 4. Incision and drainage of inguinal hidradenitis. 5. Incision and drainage of axillary hidradenitis. 6. Excision of left inguinal hidradenitis and placement of wound VAC (21cm2) on February 05, 2009. 7. Excision of right axillary hidradenitis and placement of wound VAC (36cm2) on December 08, 2009. 8. Excisional debridement of hidradenitis, posterior neck (33 cm2) on April 25, 2014. 9. Excisional debridement of non-healing hidradenitis wound, posterior neck, with 10 cm secondary wound closure on May 15, 2014. 10. Incision and drainage and excisional debridement of non- healing postop infected hidradenitis ulcer, posterior neck (20cm 2), and debridement of partial-thickness, right superior-posterior neck (16cm 2) on June 26, 2014. 11. Incision and drainage, right breast abscess, September 17, 2014. 12. Incision and drainage of left breast abscess, October 11, 2014. 13. Surgical preparation, left axilla with excision of hidradenitis (88cm2) and surgical preparation, right medial leg, with excision of non-healing diabetic ulcer, right medial leg, and 4 cm complex secondary wound closure on January 20, 2016. 14. Excision debridement of left axillary hidradenitis wound with full-thickness skin graft reconstruction from the right lateral abdominal wall (5cm2) and placement of NPWT on February 12, 2016. 15. Surgical preparation, sternum chest wall wound, with excision and drainage of abscess and excisional debridement (14cm2) on March 05, 2016. 16. Closure of sternum chest wall open abscess wound with rhomboid transposition skin flap reconstruction (24.5cm 2). 17. Surgical preparation, right medial breast, with incision and drainage of abscess and excisional debridement (28cm2) on March 11, 2016. 18. surgical preparation right axilla with excision hidradenitis (48 cm2) - 02/03/17 19. surgical preparation dorsum right hand with extension to long finger with incision and drainage and excisional debridement cat scratch infection (4 cm2) and incision and drainage tendon sheath for extensor tenosynovitis dorsum right hand with extension to long finger and surgical preparation dorsum left hand at proximal index finger with incision and drainage and excisional debridement cat scratch infection (2 cm2) and incision and drainage tendon sheath for extensor tenosynovitis dorsum left hand at proximal index finger - 03/22/17 20. Surgical preparation dorsum left hand at proximal index finger with excisional debridement cat scratch infection ulcer with proximal and distal advancement skin flaps reconstruction - 05/20/17 21. I AND D abscess left postauricular area - 12/02/17 MEDICATIONS: Cymbalta, Seroquel, metformin, glipizide, ProAir, Zanaflex, Neurontin, fentanyl, Asmanex, buspirone, Klonopin, Amitiza, levonorgestrel-ethinyl estrad, and lithium and Percocet. ALLERGIES: None. SOCIAL HISTORY: The patient smokes. The patient does not drink alcohol. She does have a history of drug abuse and alcohol abuse. FAMILY HISTORY: Negative for skin cancer. Positive for lung disease, hypertension, asthma, thyroid disease, heart disease, kidney disease, seizures, cancer, and diabetes. REVIEW OF SYSTEMS: GENERAL: Complains of fatigue. Denies fever and weight loss. Has history of alcohol abuse and drug abuse. EYES: Denies eye pain. ENT: Denies nasal congestion and sore throat. CARDIOVASCULAR: Has fatigue. Denies chest pain, lightheadedness, and shortness of breath with exertion. RESPIRATORY: Complains of cough and shortness of breath. The patient is a smoker. Does have asthma. GI: Denies nausea, vomiting, diarrhea, or constipation. : Denies hematuria and urinary frequency. MUSCULOSKELETAL: Complains of joint pain, back pain, and arthritis. Denies stiffness, muscle weakness, and gout. INTEGUMENTARY: Denies skin cancer. Had recent flare-up of right axillary hidradenitis that required surgical excision on 02/03/17. Had recent I AND D of left postauricular abscess on 12/02/17. NEURO: Denies headaches. Denies poor balance and weakness. PSYCH: Denies anxiety and depression. Has bipolar disorder. ENDOCRINE: Denies excessive thirst or urination. Has diabetes mellitus. HEMATOLOGIC: Denies abnormal bruising and fevers. PHYSICAL EXAMINATION: HEENT: Pupils equal, round, and reactive to light. Extraocular muscles intact. Throat is clear. In the left post-auricular area is a open surgical wound after I AND D of abscess. Measures smaller at 1.5 cm in length. Granulation tissue seen. Wound is tender to palpation. No further evidence of infection at this time. NECK: Supple and nontender. No cervical adenopathy. LUNGS: Clear to auscultation. HEART: Regular rate and rhythm. ABDOMEN: Soft and nontender. Right lateral abdominal wall donor incision is healing well. BREASTS: Breasts are soft. No masses palpable. No evidence of recurrent infection. No axillary adenopathy. EXTREMITIES: No clubbing, cyanosis, or edema. On the left axillary area is a healed skin graft. In the right axilla is a healed ulcer. No axillary adenopathy noted bilaterally. NEURO: Cranial nerves II through XII grossly intact. ASSESSMENT 1. Open surgical wound left post-auricular area after I AND D of abscess. 2. Smoker. 3. Diabetes mellitus. PLAN: DEBRIDEMENT NOTE Using a #3 curette, I sharply debrided the wound down into the subcutaneous tissue as an excisional debridement. Good bleeding was seen in the subcutaneous tissue. Some of the subcutaneous tissue was removed with the excisional debridement. In addition to the subcutaneous tissue, I also debrided some senescent cells, some increased bioburden, and some devitalized tissue. Patient tolerated the procedure well. Hemostasis obtained with gentle pressure. The wound was redressed with Silver dressing. The length of the wound increased after the excisional debridement to 1.6 cm. Continue Silver dressing changes daily to the left post-auricular wound. She states it is getting a little dry. So she can moisten the Silver. She has finished the Cleocin antibiotic. Because of her persistent wound pain, wrote a script for Dilaudid for pain, twice a day (20 tabs). She states the Percocet has not been that effective. The muffled and buzzing sounds have improved a little and could be related to some blood or betadine from the surgery getting in the ear canal. She has not called her PCP yet to have her ear canal irrigated out. If it is persistent over time, this abscess that was drained could be related to a process involving the mastoid. An MRI has been approved and is scheduled for 01/13/18. Followup 3 weeks after her MRI. Since the wound continues to get smaller, will hold off on the [facility] at this time and will continue to see her here. I also discussed with her the possibility of taking her back to surgery for secondary wound closure. She will think about it and let me know. Encouraged the patient to stop smoking as it may have deleterious effects on wound healing. Assessment AND Plan Problems 1. Open wound involving head with neck, complicated S01.90XA; S11.90XA 2. Abscess of neck L02.11 3. History of incision and drainage Z98.890 4. Smoker F17.200 Medications New: Coding Level of Care Code Off vis,est,level 4 Diagnoses Open wound involving head with neck, complicated S01.90XA; S11.90XA Abscess of neck L02.11 History of incision and drainage Z98.890 Smoker F17.200 01/19/18 0912 <Electronically signed by Arias Boswell MD> Date Arias Boswell MD Cosigner Signature: Date (if applicable) CC: Aj Hope MD PLASTIC SURGERY Observed: 01/19/2018 Status: F Source: [place] VISIT REPORT 9:01 AM [facility] [address] [place] [address] OFFICE VISIT Date of Service: 12/23/17 MR#: [id number] Acct: [id number] Name: ROGER JIMENEZ Rep #: [id number] : 1985 Provider: Arias Boswell MD Age/Sex: 32/F Location: [facility] Status: Signed Intake Vital Signs12/23/17 Height 5 ft 5 in 12/23/17 Weight: 245 lb 8 oz Intake Visit Reasons: evaluation open surgical wound left post-auricular area after incision and drainage for abscess 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 Accompanied by: Mother Is patient in pain?: Yes (BEHIND THE LEFT EAR THROBBING, PRESSURE AND RINGING) Pain scale (1-10): 8 Allergies lamotrigine [From Lamictal] Allergy (Mild, Verified 01/18/18 11:30) Rash adhesive tape Allergy (Verified 01/18/18 11:30) Rash Medications Albuterol IH (ProAir) [Proair Hfa] 1 puff INHALATION Q4H PRN PRN 01/18/14 [History Confirmed 01/18/18] Buspirone HCl [Buspar] 20 mg PO TID 01/18/14 [History Confirmed 01/18/18] Clonidine HCl [Catapres] 0.1 mg PO DAILY 01/18/14 [History Confirmed 01/18/18] Duloxetine Hcl [Cymbalta] 90 mg PO DAILY 01/18/14 [History Confirmed 01/18/18] GlipiZIDE [Glucotrol] 15 mg PO DAILY@0730 01/18/14 [History Confirmed 01/18/18] Metformin HCl [Glucophage] 1,000 mg PO BIDCM 01/18/14 [History Confirmed 01/18/18] Tizanidine HCl [Zanaflex] 4 mg PO 4X/DAY 01/18/14 [History Confirmed 01/18/18] Quetiapine Fumarate [Seroquel XR] 800 mg PO QHS 04/25/14 [History Confirmed 01/18/18] Meloxicam [Mobic] 7.5 mg PO DAILY 01/14/16 [History Confirmed 01/18/18] Spironolactone [Aldactone] 100 mg PO DAILY 01/14/16 [History Confirmed 01/18/18] Norgestrel-Ethinyl Estradiol [Cryselle-28 Tablet] 1 tab PO DAILY 01/20/16 [History Confirmed 01/18/18] Bluejacket Carbonate [Bluejacket Carbonate ER] 300 mg PO BID 05/10/16 [History Confirmed 01/18/18] Insulin Aspart [Novolog Flexpen] See Protocol SC ACHS 03/21/17 [History Confirmed 01/18/18] Insulin Glargine,Hum.rec.anlog [Lantus] 10 unit SQ QHS 03/21/17 [History Confirmed 01/18/18] gabapentin 300 mg capsule 300 mg PO 4X/DAY cap 12/01/17 [History Confirmed 01/18/18] Lubiprostone [Amitiza] 24 mcg PO BID 01/16/18 [History Confirmed 01/18/18] Omeprazole [Prilosec] 20 mg PO DAILY 01/16/18 [History Confirmed 01/18/18] fluconazole 100 mg tablet 100 mg PO BID #20 tab 01/19/18 [Rx Confirmed 01/19/18] oxycodone-acetaminophen 5 mg-325 mg tablet See Label Instructions PO 4X/DAY PRN #20 tab 01/19/18 [Rx Confirmed 01/19/18] oxycodone-acetaminophen 5 mg-325 mg tablet See Label Instructions PO BID PRN #20 tab 01/19/18 [Rx Confirmed 01/19/18] Is last menstrual period known: Yes Post menopausal: No Patient : No PFSH Medical History Cat scratch of left hand with infection (Acute) Cat scratch of right hand with infection (Acute) Cat scratch (Acute) Diabetes (Chronic) Hydradenitis (Chronic) Morbid obesity (Chronic) Bipolar affective (Chronic) Osteoarthritis (Chronic) Chronic back pain (Chronic) Diabetic leg ulcer (Chronic) Non-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 fat layer exposed (Chronic) Smoker (Chronic) Open wound of left axillary region (Acute) Skin graft failure (Chronic) Abscess of sternal region (Acute) Open wound of chest wall, complicated (Acute) H/O hidradenitis suppurativa (Chronic) Abscess of breast (Acute) Alcohol abuse (Acute) Asthma (Acute) Drug abuse (Acute) Frequent headaches (Acute) Hay fever (Acute) Hidradenitis (Acute) Kidney problem (Acute) Non-healing surgical wound (Acute) Partial thickness burn (Acute) Sinus problem (Acute) HTN (hypertension) (Chronic) Surgical History History of incision and drainage (Acute) History of section (Acute) History of tonsillectomy (Acute) Hidradenitis (Acute) [place] teeth removed (Acute) Family History Grandmother Thyroid disorder Father Diabetes Heart disease Hypertension High cholesterol Mother Heart disease Hypertension High cholesterol Social History household members: family, children number of children: 1 Smoking Status: Current every day smoker second hand exposure: No alcohol intake: former substance use type: former substance user what type of physical activity do you participate in: other seatbelt use: always do you feel safe at home: Yes additional social history: SUN EXPOSURE: OCCASIONALLY HPI evaluation open surgical wound left post-auricular area after incision and drainage for abscess: Details: HISTORY OF PRESENT ILLNESS 32 year old woman presents for continued management of an open surgical wound left post-auricular area after a recent operative incision and drainage procedure on 12/02/[address] Estrada. She presents today for continued wound care. She states the muffled and buzzing sounds from her left ear are a little better. She denies any fever. Operative culture showed Staphylococcus aureus. She was placed on Clindamycin and has finished them. She started Silver dressing changes to the wound and is tolerating them thus far. PAST MEDICAL HISTORY: 1. Arthritis. 2. Asthma. 3. Back pain. 4. Alcohol abuse. 5. Drug abuse. 6. Frequent headaches. 7. Hay fever. 8. Hypertension. 9. Kidney problems. 10. Bipolar disorder. 11. Persistent cough. 12. Sinus problems. 13. Tonsillitis. 14. Left inguinal hidradenitis. 15. Right axillary hidradenitis. 16. Posterior neck hidradenitis. 17. Diabetes mellitus. 18. Right breast abscess. 19. Left breast abscess. 20. Non-healing diabetic ulcer, dorsal medial aspect, right foot. 21. Left axillary hidradenitis. 22. Non-healing diabetic ulcer, right medial leg. 23. Sternal chest wall abscess wound. 24. Abscess, right medial breast. 25. Cat scratch infection abscess dorsum right hand with extension to long finger. 26. Inflammatory extensor tenosynovitis dorsum right hand with extension to long finger. 27. Cat scratch infection abscess dorsum left hand at proximal index finger. 28. Inflammatory extensor tenosynovitis dorsum left hand at proximal index finger. 29. Smoker. PAST SURGICAL HISTORY: 1. Tonsillectomy. 2. . 3. [place] teeth removal. 4. Incision and drainage of inguinal hidradenitis. 5. Incision and drainage of axillary hidradenitis. 6. Excision of left inguinal hidradenitis and placement of wound VAC (21cm2) on February 05, 2009. 7. Excision of right axillary hidradenitis and placement of wound VAC (36cm2) on December 08, 2009. 8. Excisional debridement of hidradenitis, posterior neck (33 cm2) on April 25, 2014. 9. Excisional debridement of non-healing hidradenitis wound, posterior neck, with 10 cm secondary wound closure on May 15, 2014. 10. Incision and drainage and excisional debridement of non- healing postop infected hidradenitis ulcer, posterior neck (20cm 2), and debridement of partial-thickness, right superior-posterior neck (16cm 2) on June 26, 2014. 11. Incision and drainage, right breast abscess, September 17, 2014. 12. Incision and drainage of left breast abscess, October 11, 2014. 13. Surgical preparation, left axilla with excision of hidradenitis (88cm2) and surgical preparation, right medial leg, with excision of non-healing diabetic ulcer, right medial leg, and 4 cm complex secondary wound closure on January 20, 2016. 14. Excision debridement of left axillary hidradenitis wound with full-thickness skin graft reconstruction from the right lateral abdominal wall (5cm2) and placement of NPWT on February 12, 2016. 15. Surgical preparation, sternum chest wall wound, with excision and drainage of abscess and excisional debridement (14cm2) on March 05, 2016. 16. Closure of sternum chest wall open abscess wound with rhomboid transposition skin flap reconstruction (24.5cm 2). 17. Surgical preparation, right medial breast, with incision and drainage of abscess and excisional debridement (28cm2) on March 11, 2016. 18. surgical preparation right axilla with excision hidradenitis (48 cm2) - 02/03/17 19. surgical preparation dorsum right hand with extension to long finger with incision and drainage and excisional debridement cat scratch infection (4 cm2) and incision and drainage tendon sheath for extensor tenosynovitis dorsum right hand with extension to long finger and surgical preparation dorsum left hand at proximal index finger with incision and drainage and excisional debridement cat scratch infection (2 cm2) and incision and drainage tendon sheath for extensor tenosynovitis dorsum left hand at proximal index finger - 03/22/17 20. Surgical preparation dorsum left hand at proximal index finger with excisional debridement cat scratch infection ulcer with proximal and distal advancement skin flaps reconstruction - 05/20/17 21. I AND D abscess left postauricular area - 12/02/17 MEDICATIONS: Cymbalta, Seroquel, metformin, glipizide, ProAir, Zanaflex, Neurontin, fentanyl, Asmanex, buspirone, Klonopin, Amitiza, levonorgestrel-ethinyl estrad, and lithium and Percocet. ALLERGIES: None. SOCIAL HISTORY: The patient smokes. The patient does not drink alcohol. She does have a history of drug abuse and alcohol abuse. FAMILY HISTORY: Negative for skin cancer. Positive for lung disease, hypertension, asthma, thyroid disease, heart disease, kidney disease, seizures, cancer, and diabetes. REVIEW OF SYSTEMS: GENERAL: Complains of fatigue. Denies fever and weight loss. Has history of alcohol abuse and drug abuse. EYES: Denies eye pain. ENT: Denies nasal congestion and sore throat. CARDIOVASCULAR: Has fatigue. Denies chest pain, lightheadedness, and shortness of breath with exertion. RESPIRATORY: Complains of cough and shortness of breath. The patient is a smoker. Does have asthma. GI: Denies nausea, vomiting, diarrhea, or constipation. : Denies hematuria and urinary frequency. MUSCULOSKELETAL: Complains of joint pain, back pain, and arthritis. Denies stiffness, muscle weakness, and gout. INTEGUMENTARY: Denies skin cancer. Had recent flare-up of right axillary hidradenitis that required surgical excision on 02/03/17. Had recent I AND D of left postauricular abscess on 12/02/17. NEURO: Denies headaches. Denies poor balance and weakness. PSYCH: Denies anxiety and depression. Has bipolar disorder. ENDOCRINE: Denies excessive thirst or urination. Has diabetes mellitus. HEMATOLOGIC: Denies abnormal bruising and fevers. PHYSICAL EXAMINATION: HEENT: Pupils equal, round, and reactive to light. Extraocular muscles intact. Throat is clear. In the left post-auricular area is a open surgical wound after I AND D of abscess. Measures smaller at 2.3 cm in length. Granulation tissue seen. Wound is tender to palpation. No further evidence of infection at this time. NECK: Supple and nontender. No cervical adenopathy. LUNGS: Clear to auscultation. HEART: Regular rate and rhythm. ABDOMEN: Soft and nontender. Right lateral abdominal wall donor incision is healing well. BREASTS: Breasts are soft. No masses palpable. No evidence of recurrent infection. No axillary adenopathy. EXTREMITIES: No clubbing, cyanosis, or edema. On the left axillary area is a healed skin graft. In the right axilla is a healed ulcer. No axillary adenopathy noted bilaterally. NEURO: Cranial nerves II through XII grossly intact. ASSESSMENT 1. Open surgical wound left post-auricular area after I AND D of abscess. 2. Smoker. 3. Diabetes mellitus. PLAN: DEBRIDEMENT NOTE Using a #3 curette, I sharply debrided the wound down into the subcutaneous tissue as an excisional debridement. Good bleeding was seen in the subcutaneous tissue. Some of the subcutaneous tissue was removed with the excisional debridement. In addition to the subcutaneous tissue, I also debrided some senescent cells, some increased bioburden, and some devitalized tissue. Patient tolerated the procedure well. Hemostasis obtained with gentle pressure. The wound was redressed with Silver dressing. The length of the wound increased after the excisional debridement to 2.4 cm. Continue Silver dressing changes daily to the left post-auricular wound. She has finished the Cleocin antibiotic. Because of her wound pain, wrote a script for Percocet for pain (20 tabs), to be dispensed on 12/24/17. The muffled and buzzing sounds have improved a little and could be related to some blood or betadine from the surgery getting in the ear canal. She has not called her PCP yet to have her ear canal irrigated out. If it is persistent over time, this abscess that was drained could be related to a process involving the mastoid. An MRI has been ordered. Awaiting approval from her insurance. Followup one week. Depending on the healing of this surgical wound, I may decide to see her at the [facility]. Will check my schedule over there. In the meantime, I will continue to see her here. Encouraged the patient to stop smoking as it may have deleterious effects on wound healing. Assessment AND Plan Problems 1. Open wound involving head with neck, complicated S01.90XA; S11.90XA 2. Abscess of neck L02.11 3. History of incision and drainage Z98.890 4. Smoker F17.200 Medications New: Coding Level of Care Code Off vis,est,level 4 Diagnoses Open wound involving head with neck, complicated S01.90XA; S11.90XA Abscess of neck L02.11 History of incision and drainage Z98.890 Smoker F17.200 01/19/18 0901 <Electronically signed by Arias Boswell MD> Date Arias Boswell MD Cosigner Signature: Date (if applicable) CC: Aj Hope MD PLASTIC SURGERY Observed: 01/19/2018 Status: F Source: [facility] VISIT REPORT 8:42 AM [facility] REPOSITORY [facility] [address] [place] [address] OFFICE VISIT Date of Service: 12/14/17 MR#: [id number] Acct: [id number] Name: ROGER JIMENEZ Rep #: [id number] : 1985 Provider: Arias Boswell MD Age/Sex: 32/F Location: [facility] Status: Signed Intake Vital Signs12/14/17 Height 5 ft 5 in 12/14/17 Weight: 257 lb 4 oz Intake Visit Reasons: evaluation open surgical wound left post-auricular area after incision and drainage for abscess 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 Accompanied by: None Is patient in pain?: Yes (BEHIND LEFT EAR ) Pain scale (1- 10): 8 Allergies lamotrigine [From Lamictal] Allergy (Mild, Verified 01/18/18 11:30) Rash adhesive tape Allergy (Verified 01/18/18 11:30) Rash Medications Albuterol IH (ProAir) [Proair Hfa] 1 puff INHALATION Q4H PRN PRN 01/18/14 [History Confirmed 01/18/18] Buspirone HCl [Buspar] 20 mg PO TID 01/18/14 [History Confirmed 01/18/18] Clonidine HCl [Catapres] 0.1 mg PO DAILY 01/18/14 [History Confirmed 01/18/18] Duloxetine Hcl [Cymbalta] 90 mg PO DAILY 01/18/14 [History Confirmed 01/18/18] GlipiZIDE [Glucotrol] 15 mg PO DAILY@0730 01/18/14 [History Confirmed 01/18/18] Metformin HCl [Glucophage] 1,000 mg PO BIDCM 01/18/14 [History Confirmed 01/18/18] Tizanidine HCl [Zanaflex] 4 mg PO 4X/DAY 01/18/14 [History Confirmed 01/18/18] Quetiapine Fumarate [Seroquel XR] 800 mg PO QHS 04/25/14 [History Confirmed 01/18/18] Meloxicam [Mobic] 7.5 mg PO DAILY 01/14/16 [History Confirmed 01/18/18] Spironolactone [Aldactone] 100 mg PO DAILY 01/14/16 [History Confirmed 01/18/18] Norgestrel-Ethinyl Estradiol [Cryselle-28 Tablet] 1 tab PO DAILY 01/20/16 [History Confirmed 01/18/18] Bluejacket Carbonate [Bluejacket Carbonate ER] 300 mg PO BID 05/10/16 [History Confirmed 01/18/18] Insulin Aspart [Novolog Flexpen] See Protocol SC ACHS 03/21/17 [History Confirmed 01/18/18] Insulin Glargine,Hum.rec.anlog [Lantus] 10 unit SQ QHS 03/21/17 [History Confirmed 01/18/18] gabapentin 300 mg capsule 300 mg PO 4X/DAY cap 12/01/17 [History Confirmed 01/18/18] Lubiprostone [Amitiza] 24 mcg PO BID 01/16/18 [History Confirmed 01/18/18] Omeprazole [Prilosec] 20 mg PO DAILY 01/16/18 [History Confirmed 01/18/18] fluconazole 100 mg tablet 100 mg PO BID #20 tab 01/19/18 [Rx Confirmed 01/19/18] oxycodone-acetaminophen 5 mg-325 mg tablet See Label Instructions PO 4X/DAY PRN #20 tab 01/19/18 [Rx Confirmed 01/19/18] Patient : No PFSH Medical History Cat scratch of left hand with infection (Acute) Cat scratch of right hand with infection (Acute) Cat scratch (Acute) Diabetes (Chronic) Hydradenitis (Chronic) Morbid obesity (Chronic) Bipolar affective (Chronic) Osteoarthritis (Chronic) Chronic back pain (Chronic) Diabetic leg ulcer (Chronic) Non-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 fat layer exposed (Chronic) Smoker (Chronic) Open wound of left axillary region (Acute) Skin graft failure (Chronic) Abscess of sternal region (Acute) Open wound of chest wall, complicated (Acute) H/O hidradenitis suppurativa (Chronic) Abscess of breast (Acute) Alcohol abuse (Acute) Asthma (Acute) Drug abuse (Acute) Frequent headaches (Acute) Hay fever (Acute) Hidradenitis (Acute) Kidney problem (Acute) Non-healing surgical wound (Acute) Partial thickness burn (Acute) Sinus problem (Acute) HTN (hypertension) (Chronic) Surgical History History of incision and drainage (Acute) History of section (Acute) History of tonsillectomy (Acute) Hidradenitis (Acute) [place] teeth removed (Acute) Family History Grandmother Thyroid disorder Father Diabetes Heart disease Hypertension High cholesterol Mother Heart disease Hypertension High cholesterol Social History household members: family, children number of children: 1 Smoking Status: Current every day smoker second hand exposure: No alcohol intake: former substance use type: former substance user what type of physical activity do you participate in: other seatbelt use: always do you feel safe at home: Yes additional social history: SUN EXPOSURE: OCCASIONALLY HPI evaluation open surgical wound left post-auricular area after incision and drainage for abscess: Details: HISTORY OF PRESENT ILLNESS 32 year old woman presents with an open surgical wound left post-auricular area after a recent operative incision and drainage procedure on 12/02/[address] Estrada. She presents today for continued wound care. She does complain at present of muffled and buzzing sounds from her left ear. She denies any fever. She does state she is starting to get a yeast infection from recently being on Clindamycin. Operative culture showed Staphylococcus aureus. She has finished the antibiotic. PAST MEDICAL HISTORY: 1. Arthritis. 2. Asthma. 3. Back pain. 4. Alcohol abuse. 5. Drug abuse. 6. Frequent headaches. 7. Hay fever. 8. Hypertension. 9. Kidney problems. 10. Bipolar disorder. 11. Persistent cough. 12. Sinus problems. 13. Tonsillitis. 14. Left inguinal hidradenitis. 15. Right axillary hidradenitis. 16. Posterior neck hidradenitis. 17. Diabetes mellitus. 18. Right breast abscess. 19. Left breast abscess. 20. Non-healing diabetic ulcer, dorsal medial aspect, right foot. 21. Left axillary hidradenitis. 22. Non-healing diabetic ulcer, right medial leg. 23. Sternal chest wall abscess wound. 24. Abscess, right medial breast. 25. Cat scratch infection abscess dorsum right hand with extension to long finger. 26. Inflammatory extensor tenosynovitis dorsum right hand with extension to long finger. 27. Cat scratch infection abscess dorsum left hand at proximal index finger. 28. Inflammatory extensor tenosynovitis dorsum left hand at proximal index finger. 29. Smoker. PAST SURGICAL HISTORY: 1. Tonsillectomy. 2. . 3. [place] teeth removal. 4. Incision and drainage of inguinal hidradenitis. 5. Incision and drainage of axillary hidradenitis. 6. Excision of left inguinal hidradenitis and placement of wound VAC (21cm2) on February 05, 2009. 7. Excision of right axillary hidradenitis and placement of wound VAC (36cm2) on December 08, 2009. 8. Excisional debridement of hidradenitis, posterior neck (33 cm2) on April 25, 2014. 9. Excisional debridement of non-healing hidradenitis wound, posterior neck, with 10 cm secondary wound closure on May 15, 2014. 10. Incision and drainage and excisional debridement of non- healing postop infected hidradenitis ulcer, posterior neck (20cm 2), and debridement of partial-thickness, right superior-posterior neck (16cm 2) on June 26, 2014. 11. Incision and drainage, right breast abscess, September 17, 2014. 12. Incision and drainage of left breast abscess, October 11, 2014. 13. Surgical preparation, left axilla with excision of hidradenitis (88cm2) and surgical preparation, right medial leg, with excision of non-healing diabetic ulcer, right medial leg, and 4 cm complex secondary wound closure on January 20, 2016. 14. Excision debridement of left axillary hidradenitis wound with full-thickness skin graft reconstruction from the right lateral abdominal wall (5cm2) and placement of NPWT on February 12, 2016. 15. Surgical preparation, sternum chest wall wound, with excision and drainage of abscess and excisional debridement (14cm2) on March 05, 2016. 16. Closure of sternum chest wall open abscess wound with rhomboid transposition skin flap reconstruction (24.5cm 2). 17. Surgical preparation, right medial breast, with incision and drainage of abscess and excisional debridement (28cm2) on March 11, 2016. 18. surgical preparation right axilla with excision hidradenitis (48 cm2) - 02/03/17 19. surgical preparation dorsum right hand with extension to long finger with incision and drainage and excisional debridement cat scratch infection (4 cm2) and incision and drainage tendon sheath for extensor tenosynovitis dorsum right hand with extension to long finger and surgical preparation dorsum left hand at proximal index finger with incision and drainage and excisional debridement cat scratch infection (2 cm2) and incision and drainage tendon sheath for extensor tenosynovitis dorsum left hand at proximal index finger - 03/22/17 20. Surgical preparation dorsum left hand at proximal index finger with excisional debridement cat scratch infection ulcer with proximal and distal advancement skin flaps reconstruction - 05/20/17 21. I AND D abscess left postauricular area - 12/02/17 MEDICATIONS: Cymbalta, Seroquel, metformin, glipizide, ProAir, Zanaflex, Neurontin, fentanyl, Asmanex, buspirone, Klonopin, Amitiza, levonorgestrel-ethinyl estrad, and lithium and Augmentin and Dilaudid. ALLERGIES: None. SOCIAL HISTORY: The patient smokes. The patient does not drink alcohol. She does have a history of drug abuse and alcohol abuse. FAMILY HISTORY: Negative for skin cancer. Positive for lung disease, hypertension, asthma, thyroid disease, heart disease, kidney disease, seizures, cancer, and diabetes. REVIEW OF SYSTEMS: GENERAL: Complains of fatigue. Denies fever and weight loss. Has history of alcohol abuse and drug abuse. EYES: Denies eye pain. ENT: Denies nasal congestion and sore throat. CARDIOVASCULAR: Has fatigue. Denies chest pain, lightheadedness, and shortness of breath with exertion. RESPIRATORY: Complains of cough and shortness of breath. The patient is a smoker. Does have asthma. GI: Denies nausea, vomiting, diarrhea, or constipation. : Denies hematuria and urinary frequency. MUSCULOSKELETAL: Complains of joint pain, back pain, and arthritis. Denies stiffness, muscle weakness, and gout. INTEGUMENTARY: Denies skin cancer. Had recent flare-up of right axillary hidradenitis that required surgical excision on 02/03/17. Had recent I AND D of left postauricular abscess on 12/02/17. NEURO: Denies headaches. Denies poor balance and weakness. PSYCH: Denies anxiety and depression. Has bipolar disorder. ENDOCRINE: Denies excessive thirst or urination. Has diabetes mellitus. HEMATOLOGIC: Denies abnormal bruising and fevers. PHYSICAL EXAMINATION: HEENT: Pupils equal, round, and reactive to light. Extraocular muscles intact. Throat is clear. In the left post-auricular area is a open surgical wound after I AND D of abscess. Measures 2.5 cm. Granulation tissue seen. Wound is tender to palpation. No further evidence of infection at this time. NECK: Supple and nontender. No cervical adenopathy. LUNGS: Clear to auscultation. HEART: Regular rate and rhythm. ABDOMEN: Soft and nontender. Right lateral abdominal wall donor incision is healing well. BREASTS: Breasts are soft. No masses palpable. No evidence of recurrent infection. No axillary adenopathy. EXTREMITIES: No clubbing, cyanosis, or edema. On the left axillary area is a healed skin graft. In the right axilla is a healed ulcer. No axillary adenopathy noted bilaterally. NEURO: Cranial nerves II through XII grossly intact. ASSESSMENT 1. Open surgical wound left post-auricular area after I AND D of abscess. 2. Smoker. 3. Diabetes mellitus. PLAN: Start wound care with Silver dressing changes daily to the left post-auricular wound. She has finished the Cleocin antibiotic. She states she gets yeast infections with antibiotics. Wrote a script for Diflucan for 10 days. Because of her wound pain, wrote a script for Percocet for pain (20 tabs). I told the patient that the muffled buzzing sounds could be related to some blood or betadine from the surgery getting in the ear canal. She can go to her PCP to have her ear canal irrigated out. If it is persistent over time, this abscess that was drained could be related to a process involving the mastoid. A CT or MRI would then be obtained. Followup one week. Encouraged the patient to stop smoking as it may have deleterious effects on wound healing. Assessment AND Plan Problems 1. Open wound involving head with neck, complicated S01.90XA; S11.90XA 2. Abscess of neck L02.11 3. History of incision and drainage Z98.890 4. Smoker F17.200 Orders Orders: Medications New: oxycodone-acetaminophen 5-325 mg (Percoc1 tab PO 4X/DAY PRN pain L02.11, S01.90XA, Z98.890 et) Coding Level of Care Code Off vis,est,level 4 Diagnoses Open wound involving head with neck, complicated S01.90XA; S11.90XA Abscess of neck L02.11 History of incision and drainage Z98.890 Smoker F17.200 01/19/18 0842 <Electronically signed by Arias Boswell MD> Date Arias Boswell MD Cosigner Signature: Date (if applicable) CC: Aj Hope MD 12 LEAD ELECTROCARDIOGRAM Observed: 01/18/2018 Status: F Source: [facility] 1:58 PM [facility] REPOSITORY [facility] Cardiovascular Services [address] [place] [address] 12 Lead EKG 01/16/18 1247 MR#: [id number] Acct: [id number] Name: ROGER JIMENEZ Rep #: [id number] : 1985 32 From: Akhil Mora MD Attending Dr: Status: DEP ER Ordering Dr: Vimal Lowe MD Date: 01/16/18 Location: ED Sex: F C Admitted: Test Reason : Blood Pressure : / mmHG Vent. Rate : 103 BPM Atrial Rate : 103 BPM P-R Int : 158 ms QRS Dur : 076 ms QT Int : 338 ms P-R-T Axes : 065 082 056 degrees QTc Int : 442 ms Sinus tachycardia Nonspecific ST abnormality Abnormal ECG Confirmed by ABBY MARTE, AKHIL ([id number]), manager editorial FELISHA ARMSTRONG ([id number]) on 01/18/2018 1:57:58 PM Referred By: Arias Boswell Confirmed By:AKHIL MORA MD 01/18/18 1358 Date Akhil Mora MD CC: Vimal Lowe MD; Aj Hope MD Signed EMERGENCY DEPARTMENT Observed: 01/17/2018 Status: F Source: [facility] SUMMARY 3:30 PM [facility] REPOSITORY [facility] Medical Records Department [address] [place] [address] Emergency Department Summary 01/16/18 1518 MR#: [id number] Acct: [id number] Name: ROGER JIMENEZ Rep #: [id number] : 1985 32 From: Vimal Lowe MD PCP: Aj Hope MD Status: DEP ER - ER Visit Summary Date of Service: 01/16/18 Chief Complaint: High blood sugar History of Present Illness: The patient is a [address] Hope. She reports that her blood sugars been elevated since October. States it typically runs 150-250. However, since October has been 300-400. It was in the 400s yesterday. She tried to check her blood sugar today and her meter only read high. She reports that she has been using sliding sliding scale NovoLog and 5 units of Lantus nightly. She saw Dr. Hope in the office today and had 2 units of NovoLog added to meals in addition to her sliding scale and had her evening Lantus increased from 5-10 units. She is also on metformin thousand milligrams twice daily and glipizide 50 mg daily. She complains of nausea without vomiting. No fever or abdominal pain. No dysuria or frequency. She reports that she has a headache that is 8 out of 10 severity. She has had blurred vision and photophobia with this. She denies having had similar symptoms previously. Physical Examination: Vitals: Stable. Afebrile. General: Well-nourished and well-developed. Head: Normocephalic atraumatic. Neck: Supple, no lymphadenopathy. No JVD. Nontender. Cardiovascular: Regular rate and rhythm. No murmurs. Respiratory: No respiratory distress. Clear to auscultation bilaterally. Abdominal: Soft, nontender, nondistended, normal bowel sounds. No guarding, rebound, or peritoneal signs. Back: Nontender. Extremities: Nontender, no edema. Skin: Normal color, no rash. Neurologic: Alert and oriented 3. Cranial nerves II through XII are intact. Normal strength and sensation. Psych: Normal affect. Test Results: EKG is sinus tach at [address] changes. Troponin is negative. test is negative. Serum ketones are negative. Hemoglobin A1c is 11. UA is normal. Chem-7 is marked for sodium 132, chloride 96, glucose of 404. CBC is marked for white count of 12.5. Chest x-ray is normal. CT brain is negative. Emergency Department Course and Treatment: Patient is treated with morphine, Zofran IV. She is given Tylenol p.o. She is refused an LP. Treatment Plan: Dr. Hope sent in reports on the patient and it is clear that she has been noncompliant with her medications in the past. Feel though that is at least part of the issue today. She will be discharged instructions to follow-up with him in 1-2 days if her sugars not more controlled on the new regimen. Return to the emergency department for any worsening symptoms. Disposition: To home in improved and stable condition. Impression: 1. Hyperglycemia with [id number]-[id number] diabetes mellitus. 2. Medication noncompliance. 3. Cephalgia. This note was generated with [employer] dictation software. It may contain incorrect words, spelling, and punctuation that were not noted in review of the chart prior to signing ED Disposition - Plan for ED Patient: Disposition: Home or Assisted Living Chief Complaint: Hyperglycemia Instructions: ED Hyperglycemia Diabetic Referrals: Aj Hope MD [Primary Care Provider] - 3-5 Days if not improving What to do if you have Problems For any increased pain, shortness of breath, bleeding, nausea or vomiting, chest pain, or any unexpected problems, contact your Primary Care Provider. Call [facility] ([phone]) or report to the closest Emergency Room. Call 911 if necessary. 01/17/18 1530 <Electronically signed by Vimal Lowe MD> Date Vimal Lowe MD Cosigner Signature (If Indicated): Date CC: Aj Hope MD CBC W/DIFF, AUTOMATED Collected: 01/16/2018 Status: F Source: [facility] 1:30 PM [facility] REPOSITORY TYPE CODE TESTS RESULT OUT OF RANGE REFERENCE UNITS LAB L100.1000 4.4-11.0 K/mm3 High WBC 12.5 LAB L100.1200 4.2-5.4 M/mm3 Low RBC 4.12 LAB L100.1300 12.0-15.0 g/dl Normal HGB 12.2 LAB L100.1400 37-47 % Normal HCT 38.3 LAB L100.1500 81-99 fL Normal MCV 93.0 LAB L100.1600 27.0-32.0 pg Normal MCH 29.6 LAB L100.1700 32-36 g/gl Low MCHC 31.9 LAB L100.1810 11.6-14.6 % High RDW CV 14.9 LAB L100.1820 35.1-43.9 fl High RDW SD 50.6 LAB L100.1900 150-450 K/mm3 Normal PLT 285 LAB L100.2000 6.2-12.0 fl Normal MPV 10.2 LAB L100.2100 47-70 % Normal NEUT% 57.7 LAB L100.2200 19-41 % Normal LY% 34.0 LAB L100.2300 0-10 % Normal MONO% 5.9 LAB L100.2400 0-5 % Normal EO% 1.4 LAB L100.2500 0-1 % Normal BASO% 0.6 LAB L100.2550 0.0-0.9 % Normal IM GRAN % 0.400 Result Comment: IG% - Immature Granulocytes (promyelocytes, myelocytes and metamyelocytes) > 1% indicates that a LEFT SHIFT is Present. LAB L100.2620 2.0-7.7 X10 3/uL Normal Absolute Neut 7.2 LAB L100.2720 0.83-4.51 X10 3/ul Normal Absolute Lymph 4.24 Performed By: #### L100.0100 #### [facility] [address] [facility] [place], [address] ACETONE SERUM Collected: 01/16/2018 Status: F Source: [facility] 1:30 PM [facility] REPOSITORY TYPE CODE TESTS RESULT OUT OF RANGE REFERENCE UNITS LAB L501.6900 NEG Normal ACETONE SERUM NEGATIVE Performed By: #### L501.6900 #### [facility] [address] [facility] [place], [address] HEMOGLOBIN A1C Collected: 01/16/2018 Status: F Source: [facility] 1:30 PM [facility] REPOSITORY TYPE CODE TESTS RESULT OUT OF RANGE REFERENCE UNITS LAB L501.9985 4.2-6.3 % High HGB A1C 11.0 Performed By: #### L501.9985 #### [facility] [address] [place], [address] BASIC METABOLIC Collected: 01/16/2018 Status: F Source: [facility] PROFILE (BMP) 1:30 PM [facility] REPOSITORY Order Comment: 'TROP' Serial specimen #1, #2, #3, or #4: 1 TYPE CODE TESTS RESULT OUT OF RANGE REFERENCE UNITS LAB L501.0100 74-106 mg/dL High GLU 404 Result Comment: Glucose result greater than or equal to 200 mg/dL suggests DIABETES MELLITUS per A.D.A. criteria. Please note revised GLUCOSE reference range effective 2017. LAB L501.1000 7-18 mg/dL Normal BUN 7 LAB L501.1100 0.55-1.02 mg/dL Normal CREAT,SERUM 0.95 Result Comment: The validity of the calculated GFR AND GFRAA in patients over 70 years has not been determined. Clinical correlation is essential. LAB L501.1110 >60 mL/min Normal EST GFR 72 Result Comment: Non- GFR Calc LAB L501.1115 >60 mL/min Normal EST GFR - AA 87 Result Comment: GFR Calc LAB L501.1255 ml/min Normal Estimated CRCL 75.79 LAB L501.1300 10-20 RATIO Low BUN/CRE 7.3 LAB L501.2200 8.5-10 mg/dL Normal .1 CA 9.0 LAB L501.5300 136-14 mmol/L Low 5 NA 132 LAB L501.5600 3.5-5. mmol/L Normal 1 K 4.4 Result Comment: Moderate Hemolysis, Result may be falsely increased. LAB L501.5900 98-107 mmol/L Low CL 96 LAB L501.6100 21.0-32.0 mmol/L Normal CO2 25.0 LAB L501.6200 5-15 Normal GAP 11 Performed By: #### L500.2500, L501.4010 #### [facility] [address] [facility] [place], [address] TROPONIN-I Collected: 01/16/2018 Status: F Source: [facility] 1:30 PM [facility] REPOSITORY Order Comment: 'TROP' Serial specimen #1, #2, #3, or #4: 1 TYPE CODE TESTS RESULT OUT OF RANGE REFERENCE UNITS LAB L501.4010 <0.06 ng/mL Normal < 0.02 TROPONIN-I Result Comment: TROPONIN-I EXPECTED VALUES <0.05 NEGATIVE 0.06 - 0.59 AT RISK OF [place] > OR = 0.60 SUGGEST [place] Performed By: #### L500.2500, L501.4010 #### [facility] [address] [place], [address] ,SERUM,HCG QUALI. Collected: Status: F Source: [facility] 01/16/2018 1:30 PM [facility] REPOSITORY TYPE CODE TESTS RESULT OUT OF REFERENCE UNITS RANGE LAB L700.7000 0-9 Nonpreg Negative Normal HCGSQUAL NEGATIVE LAB L700.6700 =>Qualitative mIU/mL Normal HCG Qual < 1 triggr Performed By: #### L700.6800 #### [facility] [address] [place], [address] BRAIN/HEAD WITHOUT Observed: 01/16/2018 Status: F Source: [facility] CONTRAST 12:39 PM [facility] REPOSITORY [facility] Imaging Services [address] [place] [address] Brain/Head without Contrast MR#: [id number] Acct: [id number] Name: ROGER JIMENEZ Rep #: [id number] : 1985 F 32 From: Solis Martinez MD PCP: Aj Hope MD Status: REG ER Study: Brain/Head without Contrast Date of Exam: 01/16/18 Exam# [id number] Ordering Dr: Vimal Lowe MD STUDY: CT BRAIN WITHOUT CONTRAST REASON FOR EXAM: Female, 32 years old. Headaches. Blurred vision. RADIATION DOSAGE (If Supplied By Facility): CTDIvol = ( 44.99 ) mGy, DLP = ( 779.24 ) mGycm TECHNIQUE: Transaxial CT imaging of the brain was performed without administration of intravenous contrast material. Individualized dose optimization techniques were used for this CT. COMPARISON: Comparison is made with prior study dated June 11, 2015. FINDINGS: Normal soft tissue structures. Normal calvarium. Normal size ventricles and extra-axial spaces for the patient's age. Normal white matter tracts of the cerebral hemispheres. Normal basal ganglia and thalami. Normal brainstem. Normal cerebellum. There is no intracranial hemorrhage. There are no findings of an acute ischemic infarction. Normal visualized paranasal sinuses. CT/Brain/Head without Contrast IMPRESSION: Normal unenhanced CT scan of the brain. 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 CLEAN CATCH TYPE CODE TESTS RESULT OUT OF RANGE REFERENCE UNITS LAB L400.3000 Yellow COLOR Normal Yellow LAB L400.3050 Clear Normal CLARITY Clear LAB L400.3200 Normal mg/dl High GLUCOSE, UR 1000 LAB L400.3300 Negative mg/dL Normal BILIRUBIN URINE Negative LAB L400.3400 Negative mg/dl Normal KETONE UR Negative LAB L400.3465 1.002-1.030 Normal SP.GR. DIPSTX 1.005 LAB L400.3550 5.0 - 8.0 pH UR Normal 7.0 LAB L400.3600 Negative mg/dl PROT Normal DIPSTX Negative LAB L400.3700 Normal mg/dl Normal UROBILI Normal LAB L400.3750 Negative Normal NITRITE UR Negative LAB L400.3780 Negative /ul Normal OCCULT BLOOD-UR Negative LAB L400.3800 Negative /ul LEUK Normal ESTERASE Negative LAB L400.4050 0-5 /hpf WBC 0 Normal SEEN LAB L400.4100 0-5 /hpf 0 Normal RBC-UA SEEN LAB L400.4150 5-10 /hpf SQUAM Normal EPI 0-5 SEEN LAB L400.4300 None Seen /hpf 0 Normal BACTERIA SEEN LAB L400.4350 <or=2+ /hpf 0 Normal MUCUS, URINE SEEN Performed By: #### L400.0001 #### [facility] [address] [place], [address] CHEST 1 VIEW Observed: 01/16/2018 Status: F Source: MEY (PORTABLE) 12:32 [facility] REPOSITORY [facility] Imaging Services [address] [place] [address] Chest 1 View (Portable) MR#: [id number] Acct: [id number] Name: ROGER JIMENEZ Rep #: [id number] : 1985 F 32 From: Solis Martinez MD PCP: Aj Hope MD Status: REG ER Study: Chest 1 View (Portable) Date of Exam: 01/16/18 Exam# [id number] Ordering Dr: Vimal Lowe MD STUDY: X-RAY CHEST REASON FOR EXAM: Female, 32 years old. Elevated blood sugar levels. TECHNIQUE: Single AP portable view of the chest. COMPARISON: Comparison is made with prior study dated February 18, 2016. FINDINGS: EKG liquids are seen. The lungs are clear and expanded. There is no demonstrated pleural abnormality. Normal size heart. Normal mediastinum and true. Normal visualized pulmonary arteries. Normal visualized aortic arch and descending thoracic aorta. Normal visualized thoracic spine. Normal visualized ribs, clavicles, and shoulders. There is no demonstrated abnormality of the visualized soft tissue structures of the upper abdomen. RAD/Chest 1 View (Portable) IMPRESSION: Normal x-ray examination of the chest. 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 Nursing Notes: Nicky Himanoj Rm 01/16/2018 11:03 AM Signed DM: Pt was checking her fasting blood sugar this morning. Her meter would only read high . She has headache, blurred vision, and fatigue. She took 12 units of Novolog at around 8 am. She kept trying to check her sugars but it keeps saying high. She has checked it three times and before arriving and it is reading. Her machine will read up to she thinks 500. Has a headache, she is having polydipsia. Sugars have been poorly controlled. She has not seen the pharmacists yet. She has no fever or chills or shortness of breath. She has discomfort today in her left chest. Feels like a burning. Hurts to touch. She did not get lab yet for her dm as well. Last hba1c was up. Having a horrible headache. Is the worst headache she has ever had. MEDICATIONS: Current Outpatient Prescriptions: spironolactone (ALDACTONE) 100 mg tablet TAKE 1 TABLET BY MOUTH DAILY gabapentin (NEURONTIN) 300 mg capsule Take 1 tablet four times daily AMITIZA 24 mcg capsule TAKE 1 CAPSULE BY MOUTH TWICE DAILY WITH MEALS. tiZANidine (ZANAFLEX) 4 mg tablet Take 1 tablet by mouth every 6 hours as needed. meloxicam (MOBIC) 7.5 mg tablet Take 1 tablet by mouth once daily. omeprazole (PRILOSEC) 20 mg capsule TAKE 1 CAPSULE BY MOUTH DAILY BEFORE BREAKFAST (1/2 HR. BEFORE MEAL) glipiZIDE (GLUCOTROL) 10 mg tablet TAKE 1 TABLET EVERY MORNING AND 1/2 TABLET EVERY EVENING atorvastatin (LIPITOR) 20 mg tablet Take 1 tablet by mouth daily at bedtime. For cholesterol. metFORMIN (GLUCOPHAGE) 1,000 mg tablet TAKE 1 TABLET BY MOUTH TWICE DAILY. NOVOLOG FLEXPEN 100 unit/mL inpn USE PER SLIDING SCALE SCALE- <80 OR 80-150-NO COVERAGE, 151-200-2 UNITS, 201-250 insulin glargine (LANTUS SOLOSTAR) 100 unit/mL (3 mL) inpn Inject 6 Units subcutaneously daily at bedtime. CRYSELLE 0.3-30 mg-mcg per tablet TAKE 1 TABLET DAILY *TAKE ACTIVE PILLS FOR 12 WEEKS THEN TAKE PLACEBO lithium carbonate (ESKALITH) 300 mg capsule Take 300 mg by mouth twice daily with meals. mometasone (ASMANEX TWISTHALER) 110 mcg (30 doses) twisthaler Inhale 1 Puff as instructed three times daily. DULoxetine (CYMBALTA) 30 mg capsule Take 1 capsule by mouth once daily. albuterol HFA (PROAIR HFA) 90 mcg/actuation inhaler Inhale 2 Puffs as instructed every 4 hours as needed. busPIRone 10 mg tablet Take 2 tablets by mouth three times daily. cloNIDine 0.1 mg ORAL tablet Take 0.1 mg by mouth once daily. duloxetine (CYMBALTA) 60 mg ORAL capsule Take 1 capsule by mouth once daily. quetiapine XR 400 mg ORAL 24 hr tablet Take 800 mg by mouth daily at bedtime. blood sugar diagnostic (TRUE METRIX GLUCOSE TEST STRIP) test strip Use as instructed, Testing 4 times a day. E11.9, no insulin Insulin [place], Disposable, (RAYNE PEN NEEDLE) 32 gauge x 5/32 ndle Use one needle for each dose. 4/day. Blood-Glucose Meter (TRUE METRIX GLUCOSE METER) misc 1 Device three times daily as needed (Test as instructed, Diagnosis E11.9). blood sugar diagnostic (TRUE METRIX GLUCOSE TEST STRIP) test strip Use as instructed, E11.9, testing 2 to 3 times a day, no insulin Lancets lancets E11.9, testing 2 to 3 times a day, no insulin (may use True Metrix brand if available) blood sugar diagnostic (TRUETEST TEST STRIPS) test strip E11.9, testing 2-3 times a day, no insulin usage Blood-Glucose Meter (ACCU-CHEK ACTIVE CARE) Misc monitoring kit 1 Each as needed. No current facility-administered medications for this visit. ALLERGIES: ALLERGIES Allergen Reactions - Adhesive Tape (Corinne* Rash PAST MEDICAL HISTORY Diagnosis Date - Back pain DDD, will be seeing Dr. Guzmán - Bipolar disorder, unspecified (HCC) [facility] 20 [facility] - Constipation - Diabetes mellitus type II 2010 - Hydradenitis - Hyperlipidemia 2010 - Left breast abscess 10/11/2014 - Overweight(278.02) childhood + FH - Postinflammatory skin changes 12/04/2012 - Scars 12/04/2012 - Spinal stenosis - Tobacco use disorder age 12 on/off since; longest cessation (as of 04/27) 1 year - Unspecified asthma(493.90) chencho high exercise-induced PAST SURGICAL HISTORY Procedure Laterality Date - ASPIRATION BREAST CYST 08/2014 right - ASPIRATION BREAST CYST 09/2014 left - DELIVERY ONLY 03/29/07 , low cervical - COLONOSCOP W/ OR W/O BRSH SPEC 10/18/12 Colonoscopy - EGD W/O OR W/BRUSH/WASH 10/18/12 EGD - FOOT SURGERY HX removal of cyst- right foot - ORAL SURGERY PROCEDURE [place] [facility] - PAST SURGICAL HISTORY OF age 17 CYST REMOVED UNDER LEFT ARM; Natalie - PAST SURGICAL HISTORY OF Groin Surgery- hidra - PAST SURGICAL HISTORY OF neck surgery x 3 for hidradentitis - PAST SURGICAL HISTORY OF 02/03/2017 hidradentitis right under arm - REMOVAL OF TONSILS,12+ Y/O age 18 FAMILY HISTORY Problem Relation Age of Onset - Arthritis Mother - Hypertension Mother - Heart Mother - Coronary Artery Disease Mother - Allergies Father - Heart Father first [place] at 43 (was smoker at the time) - Hypertension Father - Lipids Father - Diabetes Father age 50's - Arthritis Maternal Grandmother - Diabetes Maternal Grandmother late in life, type 2 (morbidly obese) - COPD Maternal Grandfather - Emphysema Maternal Grandfather - Hearing Loss Maternal Grandfather - Colon Cancer Other none Social History Marital status: Single Spouse name: Years of education: 14 Number of children: 1 Occupational History Occupation Employer Comment Disability Social History Main Topics Smoking status: Current Every Day Smoker Packs/day: 0.75 Years: 8.00 Types: Cigarettes Smokeless status: Never Used Alcohol use: No Comment: not while ; at times problematic, before bipolar, age 11, and age [age]. None in past 4-5 yrs. Drug use: Yes Comment: No drugs in 4 yrs. previous use of marijuana, not while ; no IV's; cocaine only at the time of attempted suicide Sexual activity: Yes Partners with: Male control/protection: Pill Comment: no std's; 4 tattoos (all clean); no transfusions Other Topics Concern Service No Blood Transfusions No Caffeine Concern No Occupational Exposure No Hobby Hazards No Sleep Concern Yes Stress Concern No Weight Concern No Special Diet No Exercise No Seat Belt Yes Self-Exams Yes Reviewed current medications, allergies, past medical history, surgical history, family history and social history today. REVIEW OF SYSTEMS All other reviewed and negative other than HPI. HEALTH MAINTENANCE: Reviewed health maintenance issues today and recommended the following in detail. HPV EVERY 5 YEARS due on 2014 VITALS: BP 120/68 Pulse 72 Temp 36.9 ?C (98.5 ?F) (Tympanic) Resp 20 Wt 110.7 kg (244 lb) BMI 40.6 kg/m2 Last 4 Encounter Wt Readings: Date: Wt: 01/16/2018 110.7 kg (244 lb) 11/29/2017 115.7 kg (255 lb) 09/28/2017 114.3 kg (252 lb) 08/22/2017 113.9 kg (251 lb) PHYSICAL EXAMINATION: General appearance: Well appearing, alert, in no acute distress, well-hydrated, well nourished. Skin: Skin color, texture, turgor normal, no suspicious rashes or lesions Head: Normocephalic, no masses, lesions, tenderness or abnormalities Lungs: Lungs clear to auscultation. No wheezing, rhonchi, rales Heart: RRR without murmur, gallop, or rubs. No ectopy Abdomen: Normal abdominal exam, Abdomen soft, non-tender. Bowel sounds normal. No masses, organomegaly Extremities: No deformities, edema, skin discoloration, clubbing or cyanosis. Good capillary refill. Chest wall tender to palptation. ASSESSMENT/PLAN: 1. Hyperglycemia - ICD9: 790.29, ICD10: R73.9 (primary diagnosis) - offered lab here. She states her headache is the worst she has ever had, will go to ER - GLUCOSE, BLOOD (POC) - HGB A1C 2. Malaise - ICD9: 780.79, ICD10: R53.81 3. Type 2 diabetes mellitus without complication, with long- term current use of insulin (HCC) - ICD9: 250.00, V58.67, ICD10: E11.9, Z79.4 - encouraged compliance. Increase meds. See pharmacy as directed. - HGB A1C 4. Bipolar affective disorder, remission status unspecified (HCC) - ICD9: 296.80, ICD10: F31.9 - get labs. - LITHIUM BLD - COMP METABOLIC PANEL - CBC + DIFF - TSH BLD 5. Noncompliance - ICD9: V15.81, ICD10: Z91.19 6. Chest wall pain - ICD9: 786.52, ICD10: R07.89 Aj Hope MD ORBIT FACE NECK W/WO Observed: 01/13/2018 Status: F Source: MEY CONTRAST 1:23 PM [facility] REPOSITORY [facility] Imaging Services [address] [place] [address] Orbit Face Neck W/WO Contrast MR#: [id number] Acct: [id number] Name: ROGER JIMENEZ Rep #: [id number] : 1985 F 32 From: Osvaldo Paez MD PCP: Aj Hope MD Status: REG CLI Study: Orbit Face Neck W/WO Contrast Date of Exam: 01/13/18 Exam# [id number] Ordering Dr: Arias Boswell MD STUDY: MRI ORBITS WITH AND WITHOUT CONTRAST REASON FOR EXAM: Female, 32 years old. Abcess behind left ear, history of ITD for cyst in that area on December 02, 2017 TECHNIQUE: Standardized fat and water weighted pulse sequences were obtained in all 3 orthogonal planes, pre-and post contrast administration. 10 ml of Gadavist contrast material was administered intravenously for the contrast portion of the examination. COMPARISON: None. FINDINGS: There is a skin lesion inferior and slightly posterior to the left ear measures approximately 1.5 x 1.4 cm shows increased signal on T2-weighted images and mild enhancement after contrast administration may represent a first brachial cleft sinus or sebaceous cyst. This lesion extends to the surface of the sternocleidomastoid muscle. The adjacent part of the parotid gland shows no abnormality. There is no significant enlargement of the cervical lymph nodes. Normal bilateral globes. Normal bilateral optic nerve sheath complexes and optic nerves. Normal bilateral intraconal and extraconal spaces. Normal bilateral extraocular muscles. Normal optic chiasm and post-chiasmatic tracts. Normal sella turcica, pituitary gland, infundibular stalk, and hypothalamus. Normal bilateral cavernous sinuses. Normal tectal plate and pineal gland. Normal flow voids within the major intracranial circulation suggesting patency by spin echo criteria. Normal size of the ventricles and extra-axial spaces for the patient's age. Normal white matter tracts of the supratentorial brain. Normal bilateral basal ganglia. Normal thalami. There is no extra-axial fluid accumulation. Normal midbrain, dana and medulla. Normal cerebellum. Normal basal cisterns. MRI/Orbit Face Neck W/WO Contrast IMPRESSION: There is a skin lesion inferior and slightly posterior to the left ear measures approximately 1.5 x 1.4 cm shows increased signal on T2-weighted images and mild enhancement after contrast administration may represent a first brachial cleft sinus or a sebaceous cyst. 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 ALLERGIES ALLERGIES DATE TYPE / CODE NAME / CODE REACTION SEVERITY SOURCE 12/10/2018 Drug adhesive Rash Unknown [facility] Allergy/416 tape/[id number] Hospital 620333(SNOM (RXNORM) Repository ED CT) 12/10/2018 Drug lamotrigine/F00 Rash [place] [facility] Allergy/200 8827727(RXNORM) Hospital 922280(SNOM Repository ED CT) 02/03/2010 Chemical/42 ADHESIVE TAPE RASH [facility] 2083881(SNO (ROSINS) [facility] CT) Repository ENCOUNTERS ENCOUNTERS ADMIT/DISCHARGE ACCOUNT ADMITTING ENCOUNTER LOCATION SOURCE NUMBER CLASS 12/10/2018/12/11/19 [id number] Emergency [address] ing:ED Repository 11/27/2018/11/27/19 [id number] Emergency [address] ing:ED Repository 11/27/2018/11/27/19 [id number] Ambulatory [address] Repository 11/27/2018/11/28/19 [id number] Ambulatory [address] Repository 11/23/2018/11/24/19 [id number] Ambulatory [address] Repository 09/28/2018 [id number] Ambulatory [facility] ing:PT Repository 09/20/2018/09/20/20 [id number] Ambulatory BMSBuilding:B [place] 18 [facility] Repository 09/07/2018/09/07/20 [id number] Ambulatory BMSBuilding:B [place] 18 [place] Repository 08/23/2018/08/23/20 [id number] Ambulatory BMSBuilding:B [place] 18 [facility] Repository 08/10/2018/08/10/20 [id number] Ambulatory BMSBuilding:B [place] 18 [facility] Repository 08/08/2018 [id number] Ambulatory [facility] ing:MTLAB Repository 07/31/2018 [id number] Ambulatory [facility] ing:SDC Repository 07/31/2018 [id number] Ambulatory [facility] ing:WC Repository 07/26/2018/07/26/20 [id number] Ambulatory BMSBuilding:B [place] 18 [facility] Repository 07/18/2018/07/19/20 [id number] Ambulatory [address] Repository 07/12/2018/07/12/20 [id number] Ambulatory BMSBuilding:B [place] 18 [facility] Repository 07/01/2018/07/04/20 [id number] Ambulatory BMSBuilding:W [place] 18 [facility] Repository 06/30/2018/07/04/20 [id number] [facility] Inpatient [address] ing:SF0Mujo: Repository FL918Cvg: 1 06/30/2018 [id number] [facility] Ambulatory BMSBuilding:B [place] Repository 06/30/2018 [id number] [facility] Ambulatory BMSBuilding:[place] Repository 06/30/2018 [id number] [facility] Ambulatory BMSBuilding:B [place] Repository 06/30/2018 [id number] [facility] Ambulatory BMSBuilding:B [place] MS.[facility] Repository 06/30/2018 [id number] [place] [place] Ambulatory BMSBuilding:[place] Repository 06/30/2018 [id number] [place] Ambulatory BMSBuilding:B [place] Repository 06/30/2018 [id number] [place] Ambulatory BMSBuilding:B [place] Repository 06/30/2018 [id number] Ambulatory [facility] Hospital ing:PT Repository 06/26/2018 [id number] Ambulatory BMSBuilding:B [place].[facility] Repository 06/26/2018/07/21/20 [id number] Ambulatory [address] Hospital ing:WC Repository 06/14/2018/06/14/20 [id number] Ambulatory BMSBuilding:B [place] 18 [facility] Repository 06/05/2018 [id number] Ambulatory BMSBuilding:[place].[facility] Repository 06/05/2018/06/20/20 [id number] [address] [facility] ing:WC Repository 05/31/2018/05/31/20 [id number] Ambulatory BMSBuilding:B [place] 18 [facility] Repository 05/23/2018/05/23/20 [id number] [address] [facility] ing:ED Repository 05/20/2018/05/21/20 [id number] Arias Boswell [address] [facility] ing:SU9Tudw: Repository VY056Ndt: 1 05/20/2018 [id number] Arias Boswell Ambulatory BMSBuilding:[place] Repository 05/20/2018 [id number] Arias Boswell Ambulatory BMSBuilding:[place].[facility] Repository 05/20/2018 [id number] Arias Boswell Ambulatory BMSBuilding:[place] Repository 05/20/2018 [id number] Ambulatory BMSBuilding:[place] [facility] Repository 05/19/2018 [id number] Ambulatory BMSBuilding:[place] Repository 05/16/2018/05/21/20 [id number] Ambulatory BMSBuilding:W [place] [facility] Repository 05/10/2018/05/10/20 [id number] Ambulatory BMSBuilding:B [place] 18 [facility] Repository 05/09/2018 [id number] [facility] Repository 05/05/2018/05/05/20 [id number] Ambulatory [address] Repository 04/11/2018/04/12/20 [id number] Ambulatory [address] Repository 03/08/2018/03/08/20 [id number] Ambulatory BMSBuilding:B [place] 18 [facility] Repository 02/14/2018/02/15/20 [id number] Ambulatory BMSBuilding:B [place] 18 [facility] Repository 02/09/2018/02/10/20 [id number] Ambulatory BMSBuilding:B [place] 18 [facility] Repository 01/18/2018/01/18/20 [id number] Ambulatory BMSBuilding:B [place] 18 [facility] Repository 01/16/2018/01/16/20 [id number] [address] [facility] ing:ED Repository 01/16/2018/01/21/20 [id number] Ambulatory [address] Repository 01/13/2018 [id number] [facility] Repository 12/29/2017/12/29/19 [id number] Ambulatory BMSBuilding:B [place] 18 [facility] Repository 12/23/2017/12/23/19 [id number] Ambulatory BMSBuilding:B [place] 18 [facility] Repository 12/14/2017/12/14/19 [id number] Ambulatory BMSBuilding:B [place] 18 [facility] Repository PAYERS PAYERS ENCOUNTER GUARANTOR PAYER SUBSCRIBER SOURCE 12/10/2018 ROGER L Primary ROGER L [place] S[place] Insurance:[employer] [facility] [place] Community [address] *IN NETWORKPolicy OB: [place], [place] Number: [id number] Repository 414[address]Xhv: ([phone] [id number] [phone] () Date:[id number] CLAIMS DEPTPO [address] [place] [address]ZG: 12/10/2018 Secondary NOT GIVENUNK [place] Insurance:SELF PAY [facility] Number: Effective Repository Date:2018-12-10 11/27/2018 ROGER L Primary ROGER L [place]1 Insurance:[employer] [place] Community [address] *IN NETWORKPolicy OB: [place], [place] Number: [id number] Repository [address]Lqp: 330 [id number] [phone] () Date:[id number] CLAIMS DEPTPO [address] [place] [address]AC: 11/27/2018 Secondary NOT GIVENUNK [place] Insurance:SELF PAY Community [facility] Number: Effective Repository Date:2018-11-27 09/28/2018 ROGER L Primary ROGER L [place] Insurance:[employer] [place] Community [address] *IN NETWORKPolicy OB: [place] Number: [id number] Repository [address]Hpe: [phone] [id number] [phone] () Date:8830-90-62NXSK CLAIMS DEPTPO [address] [place] [id number]: 09/28/2018 Secondary NOT GIVENUNK [place] Insurance:SELF PAY Community [facility] Number: Effective Repository Date:2018-08-23 09/20/2018 ROGER L Primary ROGER L [place] Insurance:[employer] [place] Community [address] *IN NETWORKPolicy OB: [facility], [place] Number: [id number] Repository [address]Gup: [phone] [id number] [phone] (HP) Date:6628-59-14AYXB CLAIMS DEPTPO [address] [place] [phone]: 09/20/2018 Secondary NOT GIVENUNK [place] Insurance:SELF PAY Community [facility] Number: Effective Repository Date:2018-09-20 09/07/2018 ROGER L Primary ROGER L [place]1 Insurance:[employer] [place] Community [address] *IN [facility] OB: [facility], [place] Number: [id number] Repository [address]Pib: [phone] [id number] [phone] (HP) Date:0943-67-87TKVP CLAIMS DEPTPO [address] [place] [address]RN: 09/07/2018 Secondary NOT GIVENUNK [place] Insurance:SELF PAY Community [facility] Number: Effective Repository Date:2018-09-07 08/23/2018 ROGER L Primary ROGER L [place]1 Insurance:[employer] [place] Community [address] *IN [facility] OB: [facility] Number: [id number] Repository [address]Kkn: [phone] [id number] [phone] (HP) Date:8139-06-16ELYP CLAIMS DEPTPO [address] [place] [phone]: 08/23/2018 Secondary NOT GIVENUNK [place] Insurance:SELF PAY Community [facility] Number: Effective Repository Date:2018-08-23 08/10/2018 ROGER L Primary ROGER L [place]1 Insurance:[employer] [place] Community [address] *IN [facility] OB: [facility] Number: [id number] Repository [address]Yut: [phone] [id number] [phone] (HP) Date:6766-27-28HZMX [place]S DE[place] [address]VW: 08/10/2018 Secondary NOT GIVENUNK [place] Insurance:SELF PAY [facility] Number: Effective Repository Date:2018-08-08 08/08/2018 ROGER L Primary ROGER L [place] Insurance:[employer] [place] Community [address] [facility]: [facility] [place] Number: [id number] Repository [address]Iyt: [phone] [id number] [phone] (HP) Date:8118-77-71ODPF CLAIMS DEPTPO [address] [place] [phone]: 08/08/2018 Secondary NOT GIVENUNK [place] Insurance:SELF PAY [facility] Number: Effective Repository Date:2018-08-08 07/31/2018 ROGER L Primary ROGER L [place] Insurance:[employer] [place] Community [address] *IN [facility] OB: [place] Number: [id number] Repository [address]Igl: 330 [id number] [phone] (HP) Date:2924-64-50EKKW CLAIMS [address] [address]CA: 07/31/2018 Secondary NOT GIVENUNK [place] Insurance:SELF PAY [facility] Number: Effective Repository Date:2018-06-14 07/31/2018 ROGER L Primary ROGER L [place]1 Insurance:[employer] [place] Community [address] *IN [facility] OB: [place] Number: [id number] Repository [address]Fzu: 330 [id number] [phone] (HP) Date:6864-14-51WOTM [place]S [address]PT[address] [address]DO: 07/31/2018 Secondary NOT GIVENUNK [place] Insurance:SELF PAY [facility] Number: Effective Repository Date:2018-07-22 07/26/2018 ROGER L Primary ROGER L [place] Insurance:[employer] [place] Community [address] *IN [facility] OB: [facility], [place] Number: [id number] Repository [address]Jtp: [phone] [id number] [phone] (HP) Date:4146-34-44GHPC CLAIMS DEPTPO [address] [place] [address]KS: 07/26/2018 Secondary NOT GIVENUNK [place] Insurance:SELF PAY [facility] Number: Effective Repository Date:2018-07-14 07/12/2018 ROGER L Primary ROGER L [place]1 Insurance:[facility] [place] [facility] [address] *IN [facility] OB: [facility] [place] Number: [id number] Repository [address]1757Cag: [phone]) [id number] [phone] () Date:0171-37-37FAGV CLAIMS DEPTPO [address] [place] [address]EM: 07/12/2018 Secondary NOT GIVENUNK [place] Insurance:SELF PAY [facility] Number: Effective Repository Date:2018-07-12 07/01/2018 ROGER L Primary ROGER L [place]1 Insurance:[facility] [place] [facility] [address] *IN [facility] OB: [facility] [place] Number: [id number] Repository [address]Fmv: [phone] [id number] [phone] () Date:4345-85-13NKSF CLAIMS DEPTPO [address] [place] [address]DF: 07/01/2018 Secondary NOT GIVENUNK [place] Insurance:SELF PAY Community [facility] Number: Effective Repository Date:2018-07-01 06/30/2018 ROGER L Primary ROGER L [place] Insurance:[facility] [facility] [place] [facility] [address] *[place] [facility] [place]: [place]: [id number] Repository [address]Lvx: [phone]) [id number] [phone] () Date:6436-32-73DUTF CLAIMS [address] [address]EY: 06/30/2018 Secondary NOT GIVENUNK [place] Insurance:SELF PAY Community [facility] Number: Effective Repository Date:2018-06-30 06/30/2018 ROGER L Primary ROGER L [place] Insurance:[facility] [facility] [place] [facility] [address] *IN [facility] OB: [facility] Number: [id number] Repository 31792Ocv: ([phone] [id number] [phone] () Date:4738-08-68ODIV CLAIMS [address] [address]N[place]: 06/30/2018 Secondary NOT GIVENUNK [place] Insurance:SELF PAY Community [facility] Number: Effective Repository Date:2018-06-30 06/30/2018 ROGER L Primary ROGER L [place]1 Insurance:[facility] [place] [facility] [address] *IN [facility] OB: [facility] [place] Number: [id number] Repository [address]Jxt: 330 [id number] [phone] () Date:3681-08-13MYBU CLAIMS [address] [address]XG: 06/30/2018 Secondary NOT GIVENUNK [place] Insurance:SELF PAY Community [facility] Number: Effective Repository Date:2018-06-30 06/30/2018 ROGER L Primary ROGER L [place] Insurance:[facility] [facility] [place] [facility] [address] *IN [facility] OB: [facility]: [id number] Repository 99[address]Fvx: ([phone]) [id number] [phone] (HP) Date:9519-86-77QBXG CLAIMS DEPTPO [address] [place] [address]JS: 06/30/2018 Secondary NOT GIVENUNK [place] Insurance:SELF PAY Community [facility] Number: Effective Repository Date:2018-06-30 06/30/2018 ROGER L Primary ROGER L [place] Insurance:[facility] [place] [facility] [address] *IN [facility] OB: [facility]: [id number] Repository 67[address]Qyi: ([phone]) [id number] [phone] (HP) Date:5878-91-55XHZC CLAIMS DEPTPO [address] [place] [address]JH: 06/30/2018 Secondary NOT GIVENUNK [place] Insurance:SELF PAY Community [facility] Number: Effective Repository Date:2018-06-30 06/30/2018 ROGER L Primary ROGER L [place] Insurance:[facility] [facility] [place] Community [address] [facility]: [id number] Repository 356[address]Utp: ([phone] [id number] [phone] (HP) Date:6841-81-84KZAV CLAIMS DEPTPO [address] [place] [address]SV: 06/30/2018 Secondary NOT GIVENUNK [place] Insurance:SELF PAY Community [facility] Number: Effective Repository Date:2018-06-30 06/30/2018 ROGER L Primary ROGER L [place]1 Insurance:[facility] [place] [facility] [address] *[facility]: [id number] Repository 92131Uah: ([phone] [id number] [phone] (HP) Date:9668-19-52PDNH CLAIMS DEPT[address] [address]LO: 06/30/2018 Secondary NOT GIVENUNK [place] Insurance:SELF PAY Community [facility] Number: Effective Repository Date:2018-06-30 06/30/2018 ROGER L Primary ROGER L [place]1 Insurance:[facility] [place] Community [address] *[place]: [id number] Repository 345[address]Doy: (907) [id number] [phone] (HP) Date:0145-58-56XYBJ CLAIMS DEPTPO [address] [place] [address]TR: 06/30/2018 Secondary NOT GIVENUNK [place] Insurance:SELF PAY [facility] Number: Effective Repository Date:2018-06-30 06/30/2018 ROGER L Primary ROGER L [place] Insurance:[facility] [place] Community [address] *[place]: [id number] Repository [address]Nhx: (696) [id number] [phone] (HP) Date:4179-39-34VJFV CLAIMS DEPT[address] [address]XE: 06/30/2018 Secondary NOT GIVENUNK [place] Insurance:SELF PAY [facility] Number: Effective Repository Date:2018-06-15 06/26/2018 ROGER L Primary ROGER L [place]1 Insurance:[facility] [place] Community [address] *[place]: [id number] Repository 96583Pjz: ([phone]) [id number] [phone] (HP) Date:9308-31-65DPCZ [place]S DEPTPO [address] [address]KN: 06/26/2018 Secondary NOT GIVENUNK [place] Insurance:SELF PAY Community [facility] Number: Effective Repository Date:2018-06-26 06/26/2018 ROGER L Primary ROGER L [place] Insurance:[facility] [place] Community [address] *[place] [facility] [place]: [place]: [id number] Repository 86[address]Ehj: ([phone]) [id number] [phone] () Date:3556-38-96BNPT CLAIMS DEPTPO [address] [place] [address]YJ: 06/26/2018 Secondary NOT GIVENUNK [place] Insurance:SELF PAY [facility] Number: Effective Repository Date:2018-06-21 06/14/2018 ROGER L Primary ROGER L [place]1 Insurance:[facility] [place] [facility] [address] *[place] [facility] [place]: [place]: [id number] Repository [address]Bfj: 330 [id number] [phone] () Date:2086-10-52IZGK CLAIMS DEPTPO [address] [place] [address]ND: 06/14/2018 Secondary NOT GIVENUNK [place] Insurance:SELF PAY [facility] Number: Effective Repository Date:2018-06-12 06/05/2018 ROGER L Primary ROGER L [place] Insurance:[facility] [place] [facility] [address] *[place] [facility] [place]: [place]: [id number] Repository [address]47[address]Gzw: 330 [id number] [phone] () Date:6184-86-75SKXV CLAIMS DEPTPO [address] [place] [address]SY: 06/05/2018 Secondary NOT GIVENUNK [place] Insurance:SELF PAY [facility] Number: Effective Repository Date:2018-06-05 06/05/2018 ROGER L Primary ROGER L [place] Insurance:[facility] [place] [facility] [address] *[place] [facility] [place]: [place]: [id number] Repository [address]24[address]Ruy: ([phone]) [id number] [phone] (HP) Date:5066-18-02CHSC CLAIMS DEPTPO [address] [place] [address]KQ: 06/05/2018 Secondary NOT GIVENUNK [place] Insurance:SELF PAY Community [facility] Number: Effective Repository Date:2018-06-02 05/31/2018 ROGER L Primary ROGER L [place] Insurance:[facility] [place] [facility] [address] *[place] [facility] [place]: [place]: [id number] Repository [address]Ecd: ([phone] [id number] [phone] (HP) Date:0059-93-78JJRK CLAIMS DEPTPO [address] [place] [address]RT: 05/31/2018 Secondary NOT GIVENUNK [place] Insurance:SELF PAY [facility] Number: Effective Repository Date:2018-05-30 05/23/2018 ROGER L Primary ROGER L [place]1 Insurance:[facility] [place] [facility] [address] *[place] [facility] [place]: [place]: [id number] Repository 45[address]Mcw: ([phone]) [id number] [phone] (HP) Date:6187-27-38XFHY CLAIMS DEPTPO [address] [place] [address]YW: 05/23/2018 Secondary ROGER L [place] [facility] [id number] Repository Date:2018-05-23 05/23/2018 Tertiary NOT GIVENUNK [place] Insurance:SELF PAY [facility] Number: Effective Repository Date:2018-05-23 05/20/2018 ROGER L Primary ROGER L [place] Insurance:[facility] [place] [facility] [address] *[place] [facility] [place]: [place]: [id number] Repository 10709Woe: ([phone]) [id number] [phone] () Date:2500-16-22MYEL CLAIMS [address] [address]DL: 05/20/2018 Secondary NOT GIVENUNK [place] Insurance:SELF PAY Community [facility] Number: Effective Repository Date:2018-05-10 05/20/2018 ROGER L Primary ROGER L [place] Insurance:[facility] [place] [facility] [address] *IN [facility] OB: [facility] Number: [id number] Repository 36[address]Bqj: ([phone]) [id number] [phone] () Date:0397-46-27BYGX CLAIMS [address] [address]TK: 05/20/2018 Secondary NOT GIVENUNK [place] Insurance:SELF PAY Community [facility] Number: Effective Repository Date:2018-05-20 05/20/2018 ROGER L Primary ROGER L [place]1 Insurance:[facility] [place] Community [address] *[place] [facility] [place]: [id number] Repository 18573Ecm: ([phone]) [id number] [phone] () Date:6276-69-86PTFA CLAIMS DEPT[address] [address]BO: 05/20/2018 Secondary NOT GIVENUNK [place] Insurance:SELF PAY Community [facility] Number: Effective Repository Date:2018-05-20 05/20/2018 ROGER L Primary ROGER L [place]1 Insurance:[facility] [place] [facility] [address] *[place] [facility] OB: [facility]: [id number] Repository 249[address]Atf: ([phone]) [id number] [phone] (HP) Date:6294-18-30FVZR CLAIMS DEPTPO [address] [place] [address]ZM: 05/20/2018 Secondary NOT GIVENUNK [place] Insurance:SELF PAY Community [facility] Number: Effective Repository Date:2018-05-19 05/20/2018 ROGER L Primary ROGER L [place] Insurance:[facility] [place] Community [address] *IN [facility] [place]: [facility]: [id number] Repository 15190Odb: ([phone]) [id number] [phone] (HP) Date:2425-13-02QCBL CLAIMS DEPTPO [address] [place] [address]QT: 05/20/2018 Secondary NOT GIVENUNK [place] Insurance:SELF PAY Community [facility] Number: Effective Repository Date:2018-05-20 05/19/2018 ROGER L Primary ROGER L [place]1 Insurance:[facility] [place] Community [address] *[place] [facility] OB: [facility]: [id number] Repository 03822Nxt: ([phone]) [id number] [phone] (HP) Date:7617-13-87UFDW CLAIMS DEPTPO [address] [place] [address]CN: 05/19/2018 Secondary NOT GIVENUNK [place] Insurance:SELF PAY Community [facility] Number: Effective Repository Date:2018-05-19 05/16/2018 ROGER L Primary ROGER L [place]1 Insurance:[facility] [place] Community [address] [facility]: [id number] Repository 90662Ebf: ([phone]) [id number] [phone] (HP) Date:0109-26-48HQHB CLAIMS DEPTPO [address] [place] [address] [place] [address]VU: 05/16/2018 Secondary NOT GIVENUNK [place] Insurance:SELF PAY Community [facility] Number: Effective Repository Date:2018-05-16 05/10/2018 ROGER L Primary ROGER L [place]1 Insurance:[facility] [place] Community [address] *[place]: [id number] Repository 11116Gkz: (457) [id number] [phone] (HP) Date:3458-58-60KBAF CLAIMS DEPTPO [address] [place] [address]LO: 05/10/2018 Secondary NOT GIVENUNK [place] Insurance:SELF PAY [facility] Number: Effective Repository Date:2018-05-09 05/09/2018 ROGER L Primary ROGER L [place]1 Insurance:[facility] [place] Community [address] *[place]: [id number] Repository 69699Ybr: 330 [id number] [phone] (HP) Date:0472-13-52BUMY CLAIMS DEPTPO [address] [place] [address]AM: 05/09/2018 Secondary NOT GIVENUNK [place] Insurance:SELF PAY Community [facility] Number: Effective Repository Date:2018-05-09 03/08/2018 ROGER L Primary ROGER L [place] Insurance:[facility] [place] Community [address] *[place]: [id number] Repository 48692Alu: [id number] [phone] Date:1570-89-46JECR -3 (HP) CLAIMS [address] [address]ZL: 03/08/2018 Secondary NOT GIVENUNK [place] Insurance:SELF PAY Community [facility] Number: Effective Repository Date:2018-03-08 02/14/2018 ROGER L Primary ROGER L [place]1 Insurance:[facility] [place] Community [address] *[place] [facility] [place]: [place]: [id number] Repository 35891Drw: [id number] [phone] Date:3327-13-25QUFN -3 (HP) [address]S [address] [address]WZ: 02/14/2018 Secondary NOT GIVENUNK [place] Insurance:SELF PAY Community [facility] Number: Effective Repository Date:2018-02-14 02/09/2018 ROGER L Primary ROGER L [place]1 Insurance:[facility] [place] Community [address] *[place] [facility] OB: [facility] [place] Number: [id number] Repository 37394Jmf: [id number] [phone] Date:5854-43-10GYJU -3 (HP) CLAIMS [address] [address]XM: 02/09/2018 Secondary NOT GIVENUNK [place] Insurance:SELF PAY Community [facility] Number: Effective Repository Date:2018-02-09 01/18/2018 ROGER L Primary ROGER L [place]1 Insurance:[facility] [place] Community [address] *IN [facility] OB: [facility] [id number] Repository 56272Ksg: [id number] [phone] Date:0758-24-40ZUUR -3 (HP) CLAIMS [address] [address]CO: 01/18/2018 Secondary NOT GIVENUNK [place] Insurance:SELF PAY Community [facility] Number: Effective Repository Date:2017-12-29 01/16/2018 ROGER L Primary ROGER L [place]1 Insurance:[facility] [place] Community [address] *[place]: [id number] Repository 476[address]Kst: [phone]) [id number] [phone] (HP) Date:0961-41-50BBDE CLAIMS [address] [address]IU: 01/16/2018 Secondary NOT GIVENUNK [place] Insurance:SELF PAY Community [facility] Number: Effective Repository Date:2018-01-16 01/13/2018 ROGER L Primary ROGER L [place]1 Insurance:[facility] [place] Community [address] [facility] [place]: [id number] Repository 499[address]Alb: [id number] [phone] Date:6444-10-90NALV -3 (HP) CLAIMS [address] [address]RS: 01/13/2018 Secondary NOT GIVENUNK [place] Insurance:SELF PAY Community [facility] Number: Effective Repository Date:2017-12-29 12/29/2017 ROGER L Primary ROGER L [place] Insurance:[facility] [place] Community [address] [facility] [place]: [id number] Repository 04222Xbm: [id number] [phone] Date:0929-08-73HTUN -3 (HP) CLAIMS [address] [address]RT: 12/29/2017 Secondary NOT GIVENUNK [place] Insurance:SELF PAY [facility] Number: Effective Repository Date:2017-12-23 12/23/2017 ROGER L Primary ROGER L [place]1 Insurance:[facility] [place] Community [address] [facility] [place]: [id number] Repository 73441Zjc: [id number] [phone] Date:8716-23-04KCXX -3 (HP) CLAIMS [address] [address]GP: 12/23/2017 Secondary NOT GIVENUNK [place] Insurance:SELF PAY Community [facility] Number: Effective Repository Date:2017-12-14 12/14/2017 ROGER L Primary ROGER L [place]1 Insurance:[facility] SOMBUTTAVEEKOOND [facility] [address] *[place]: [id number] Repository 43166Prl: [id number] [phone] Date:7557-43-83GTLQ -3 (HP) CLAIMS [address] [address]XY: 12/14/2017 Secondary NOT GIVENUNK [place] Insurance:SELF PAY [facility] Number: Effective Repository Date:2017-11-29
== END 2018-12-11 11:45 ==
PROVIDERS: Emergency Provider Emergency Medicine; Family Provider Family Medicine; PCP Family Medicine
DX: R45.851 Suicidal ideations (principal); F31.9 Bipolar disorder, unspecified; F32.9 Major depressive disorder, single episode, unspecified; E11.9 Type 2 diabetes mellitus without complications; Z79.84 Long term (current) use of oral hypoglycemic drugs; Z79.4 Long term (current) use of insulin; Z79.899 Other long term (current) drug therapy; F12.90 Cannabis use, unspecified, uncomplicated; F10.99 Alcohol use, unspecified with unspecified alcohol-induced disorder; Z72.0 Tobacco use
CPT/HCPCS: 36415; 80048; 80178; 80307; 80320; 82962; 84703; 85025; 96372; 99285; G0480

== ENCOUNTER 2019-04-10 08:24 | Day surgery (SDC) | payer MEDICARE, SELFPAY ==
[2019-03-28 10:20] VITALS: BMI 37.6
--- NOTE | 2019-04-09 20:57 | HP.PCM_ITS ---
History and Physical Date of Admission: 04/10/19 HISTORY OF PRESENT ILLNESS 33 year old woman presents with increasing redness and pain and swelling and drainage on her posterior left earlobe. She denies any fever. She denies any trauma. She has noticed intermittent drainage. She also has an area on her right posterior ear lobe that is just starting to enlarge and is not symptomatic at this time. She presents at this time for further evaluation and treatment. She was also scheduled for NCV and EMG studies in January for her carpal tunnel symptoms bilaterally. The test was not done. She states the symptoms have not worsened. PAST MEDICAL HISTORY Cat scratch of left hand with infection Cat scratch of right hand with infection Diabetes Bipolar affective Chronic back pain Diabetic leg ulcer Smoker Abscess of sternal region Abscess of breast Alcohol abuse Anxiety and depression Asthma Drug abuse Frequent headaches GERD (gastroesophageal reflux disease) Hay fever Hearing problem Hidradenitis High triglycerides Hyperlipidemia Kidney problem Neuropathy Osteoarthritis Partial thickness burn Recurrent UTI Sinus problem Vision problem HTN (hypertension) PAST SURGICAL HISTORY incision and drainage section tonsillectomy Hidradenitis [place] teeth removed ALLERGIES lamotrigine [From Lamictal] adhesive tape MEDICATIONS Clonidine HCl [Catapres] Duloxetine Hcl [Cymbalta] Metformin HCl [Glucophage] Tizanidine HCl [Zanaflex] glipiZIDE [Glucotrol] Meloxicam [Mobic] Spironolactone [Aldactone] Norgestrel-Ethinyl Estradiol [Cryselle-28 Tablet] [place] Carbonate [[place] Carbonate ER] gabapentin Lubiprostone [Amitiza] Omeprazole [Prilosec] insulin aspart insulin glargine Atorvastatin Calcium Albuterol Sulfate [Ventolin Hfa] Buspirone Duloxetine Hcl [Cymbalta] doxycycline hyclate olanzapine FAMILY HISTORY Grandmother - Thyroid disorder Father - Diabetes, Heart disease, Hypertension, High cholesterol Mother - Heart disease, Hypertension, High cholesterol SOCIAL HISTORY Smoking Status: Current every day smoker alcohol intake: former substance use type: former substance user REVIEW OF SYSTEMS GENERAL: Complains of fatigue. Denies fever and weight loss. Has history of alcohol abuse and drug abuse. EYES: Denies eye pain. ENT: Denies nasal congestion and sore throat. She has a painful lesion that drains on her left posterior ear lobe that she has had for several months. She now has a spot on the right posterior ear lobe that swells but has not drained. CARDIOVASCULAR: Has fatigue. Denies chest pain, lightheadedness, and shortness of breath with exertion. RESPIRATORY: Complains of cough and shortness of breath. The patient is a smoker. Does have asthma. GI: Denies nausea, vomiting, diarrhea, or constipation. : Denies hematuria and urinary frequency. MUSCULOSKELETAL: Complains of joint pain, back pain, and arthritis. Denies stiffness, muscle weakness, and gout. Has symptoms of bilateral carpal tunnel syndrome with numbness in thumb and index fingers. INTEGUMENTARY: Denies skin cancer. Has history of hidradenitis. NEURO: Denies headaches. Denies poor balance and weakness. PSYCH: Denies anxiety and depression. Has bipolar disorder. ENDOCRINE: Denies excessive thirst or urination. Has diabetes mellitus. HEMATOLOGIC: Denies abnormal bruising and fevers. PHYSICAL EXAMINATION HEENT: Pupils equal, round, and reactive to light. Extraocular muscles intact. Throat is clear. On the left posterior earlobe there a 6 mm lesion that does drain at times. It is mobile. Tender to palpation. No ulceration. Mild redness. No purulent drainage noted today. On her right posterior earlobe is a 4 mm lesion. It is mobile. Nontender at this time. No ulceration. NECK: Supple. No bony tenderness. Has scarring on the posterior neck and occipital scalp from previous excision of hidradenitis. No cervical adenopathy. LUNGS: Clear to auscultation. HEART: Regular rate and rhythm. ABDOMEN: Soft and nontender. Right lateral abdominal wall donor incision is healing well. BREASTS: Breasts are soft. No masses palpable. No evidence of recurrent i nfection. No axillary adenopathy. EXTREMITIES: No clubbing, cyanosis, or edema. On the left axillary area is a healed skin graft. In the right axilla is a healed ulcer. No axillary adenopathy noted bilaterally. On the right hand there is decreased sensation to pinprick to thumb and index finger. No thenar muscle atrophy. Positive Tinel's sign. Positive Phalen's sign. Fingers are warm with good capillary refill. On the left hand there is decreased sensation to pinprick to thumb and index finger. No thenar muscle atrophy. Positive Tinel's sign. Positive Phalen's sign. Fingers are warm with good capillary refill. Radial pulses are palpable. No elbow tenderness. Negative Tinel's at the elbow. NEURO: Cranial nerves II through XII grossly intact. Some paresthesias in the thumb and index finger bilaterally. ASSESSMENT 1. 6 mm painful hidradenitis cystic lesion on left posterior earlobe. 2. 4 mm hidradenitis lesion on right posterior earlobe, asymptomatic. 3. Smoker. 4. Diabetes mellitus. 5. Bilateral carpal tunnel syndrome, stable. PLAN Will start her on Doxycycline because of the intermittent drainage on the left posterior ear lobe lesion. Recommend operative incision and drainage and excision of the left posterior ear lobe hidradenitis. If pus is seen a culture will be obtained, and the wound will be left open and packed with a Silver dressing daily. Otherwise will close the wound. If the overlying skin is involved with the hidradenitis, then a local skin flap may be necessary for wound closure. Tissue that is removed at surgery will be sent to Pathology for analysis to rule out carcinoma. Patient has been on Doxycycline, so a culture will be obtained if pus is seen. Will schedule the surgery to be done on under general anesthesia on an outpatient basis. After healing has occurred, can then address the lesion on the right posterior earlobe if it becomes symptomatic or infected in the future. Patient was informed of the risks and complications of the procedure including alternatives to surgery. These were discussed with the patient personally. Patient voices understanding and wishes to proceed. Some of the risks and complications were included in a form from the [place] [employer]. Encouraged the patient to stop smoking as it may have deleterious effects on wound healing. Her last HgbA1c was 6.9 last year. Will check another one for the surgery. She had been scheduled for NCV and EMG studies in January. They were not done. She states the symptoms have not worsened. She will let us know when she wants the test rescheduled. Right now she wants to get her draining cystic lesion left posterior earlobe excised and healed.
--- NOTE | 2019-04-10 | HID_PTH ---
PATIENT: ROGER HOOD LOC: [facility] [place] U#:[id number] AGE/SX: 33/F ROOM: RE04/10/[address]: Dr. Phoenix Boswell MD : 1985 BED: DIS: 04/10/2019 SPEC #: [id number] RECD: 04/10/19 14:08 STATUS: MAYI REGarrett #: [id number] RADHAMES: 04/10/19 00:[address]: Phoenix Boswell DEPT: SURGICAL PATHOLOGY RECD BY: Margarito Aguliera ENTERED: 04/10/19 14:09 SP TYPE: Hidradenit OTHR DR: Dr. Aj Staley MD Tissues: Ear, NOS Procedures: Surgery Specimen Level III HEADER OPERATION: Excision infected cystic lesion, posterior ear with skin flap PRE-OP DIAGNOSIS: 6 mm painful hidradenitis lesion on left posterior earlobe TISSUE SUBMITTED: 6 mm painful hidradenitis lesion on left posterior earlobe MICROSCOPIC DIAGNOSIS Skin lesion of posterior ear, biopsy: Epidermal inclusion cyst with associated moderate chronic inflammation and focal changes suggestive of rupture with associated granulation and acute and chronic inflammation. AM:anastasiia 04/11/19 MICROSCOPIC DESCRIPTION Slides are reviewed. GROSS DESCRIPTION Received in fixative is one container labeled with the patient's name and designated 6 mm painful hidradenitis lesion on left posterior earlobe. The specimen consists of four irregular fragments of jean-pink soft tissue and scant overlying skin that in aggregate measure 1.2 x 0.9 x 0.5 cm. The specimen is totally submitted in one cassette. / CE:anastasiia 04/10/19 TC:2 CPT: 75118
[2019-04-10 08:54] LABS: Internal QC Validated? YES +Cl - CLEAR BKGD
[2019-04-10 08:58] LABS: Pregnancy, Urine Negative Negative
[2019-04-10 09:00] VITALS: BP 121/73; PULSE 84; RESP 16; TEMP 36.7; O2SAT 96; BMI 36.4
[2019-04-10 09:28] LABS: Hemoglobin A1c 6.8 % (4.2-6.3)
[2019-04-10 09:56] LABS: Bedside Glucose 159 mg/dL (70-110)
[2019-04-10] MEDS: Mupirocin Ointment 22gm Tube 1 APPLIC (10:50)
--- NOTE | 2019-04-10 11:06 | PCM.OPRPT ---
Report of Operation Date of Procedure: 04/10/19 Pre-Operative Diagnosis: 1. 6 mm painful hidradenitis cystic lesion left posterior earlobe. 2. Diabetes mellitus. 3. Smoker. Post-Operative Diagnosis: Same. Surgery/Procedure Performed:: Excision and repair 6 mm painful hidradenitis cystic lesion left posterior earlobe with extension to anterior earlobe with rhomboid transposition skin flap reconstruction (2 cm2). Description of Surgical Findings:: 33 year old woman presents with increasing redness and pain and swelling and drainage on her posterior left earlobe. She denies any fever. She denies any trauma. She has noticed intermittent drainage. She also has an area on her right posterior ear lobe that is just starting to enlarge and is not symptomatic at this time. Patient was informed of the risks and complications of the procedure including alternatives to surgery. These were discussed with the patient personally. Patient voices understanding and wishes to proceed. Some of the risks and complications were included in a form from the [place] [employer]. Encouraged patient to stop smoking as it may have deleterious effects on wound healing. scientific photographer: None Type of Anesthesia:: General Specimen's removed: Painful hidradenitis cystic lesion left posterior earlobe to Pathology. Drains: None. Estimated Blood Loss (mL): 20 ml. Description of Procedure: Patient was taken to OR in supine position and was placed under general anesthesia. The left ear area was prepped and draped in the usual fashion. SCD's were placed for DVT prophylaxis. Perioperative antibiotics were given intravenously. Using xylocaine with epinephrine, the left ear area was infiltrated with a regional auricular block. After waiting 5 minutes for the anesthetic to take effect, I excised the cystic lesion left posterior earlobe. The skin was adherent to the cystic lesion and was excised also. There was no pus seen. A lot of scar tissue was present which was excised to minimize recurrence. The scar tissue was adherent to the anterior skin of the earlobe and was excised also to minimize recurrence. The defect posteriorly was larger than the defect anteriorly. The cystic lesion was sent to Pathology for analysis to rule out carcinoma. No pus was seen so no culture was done. She was on Doxycycline preoperatively and will be treated perioperatively with Cleocin. Hemostasis was obtained with electrocautery. The wound was irrigated with saline. I was able to close the anterior defect primarily without distortion in a layered fashion with 5-0 Monocryl interrupted sutures for the deep dermis and subcutaneous tissue. The skin was approximated with 5-0 Prolene simple interrupted and vertical mattress interrupted sutures. For the posterior defect, the wound was too large to close primarily without creating too much distortion. So I designed a rhomboid flap adjacent to the defect inferiorly. Incisions were made and the rhomboid flap was elevated on a subcutaneous pedicle at the level of the underlying muscle. Hemostasis was obtained with electrocautery. The rhomboid flap was easily transposed into the posterior earlobe defect with minimal tension and minimal distortion. The flap was closed in a layered fashion with 5-0 Monocryl interrupted sutures for the deep dermis and subcutaneous tissue. The skin was approximated with 5-0 Prolene simple interrupted and vertical mattress interrupted sutures. Antibiotic ointment was applied to the suture line. Good earlobe contouring was noted. Patient tolerated the procedure well and was sent to PACU in satisfactory condition. While there a 2x2 gauze dressing was applied. Patient will be sent home on antibiotics and pain medication. She will keep her head elevated during the initial postop period and be on a lifting restriction. Patient will followup in a week for a wound check and for discussion of the pathology report. I will remove the sutures in two weeks. Grafts/Implants Used: None. - Complications None. - Admit VTE Documentation VTE Present on Admission: No VTE Mechan Device Prophylaxis: SCD's VTE Pharm Prophylaxis ordered?: No Code Visit Surgery Charges CPT - 25671 ICD-10 - L73.2, E11.9, F17.200 73043 L73.2, E11.9, F17.200
--- NOTE | 2019-04-10 11:17 | PCM.DC ---
You will use the following diet at home:: Calorie/Carbohydrate Controlled (specify 1200, 1400, etc) Discharge Activity: May Shower - in two days., - - keep head elevated. no heavy lifting. May shower in (days): 2 Weight Bearing Status: Weight bearing as tolerated Lifting Restrictions: 20 lbs. Keep extremity elevated above heart level: - - elevate head. Call your doctor if your incision/area has: Continuous Slow Oozing, Sudden Increased Bleeding, Increased Pain/ Swelling, Increased Redness, Foul Smelling Discharge, Swelling at the incision site Call your doctor if you observe: Fever of 101 or Higher, Coldness, Increased Pain, Shortness of breath, Chest pain, Calf discomfort, Uncontrolled pain Suture Line Care: - - apply antibiotic ointment to suture line daily. Cleanse incision/area with: - - may get incision wet in the shower in two days. Allergies/Adverse Reactions: Allergies lamotrigine [From Lamictal] Allergy (Mild, Verified 03/28/19 10:18) Rash adhesive tape Allergy (Verified 03/28/19 10:18) Rash Medications to take at Discharge Clonidine HCl [Catapres] 0.1 mg PO DAILY PRN PRN 01/18/14 Duloxetine Hcl [Cymbalta] 60 mg PO DAILY 01/18/14 Metformin HCl [Glucophage] 1,000 mg PO BIDCM 01/18/14 Tizanidine HCl [Zanaflex] 4 mg PO 4X/DAY 01/18/14 glipiZIDE [Glucotrol] 15 mg PO DAILY@0730 01/18/14 Meloxicam [Mobic] 7.5 mg PO DAILY 01/14/16 Spironolactone [Aldactone] 100 mg PO DAILY 01/14/16 [place] Carbonate [[place] Carbonate ER] 300 mg PO BID 05/10/16 gabapentin 300 mg capsule 300 mg PO 4X/DAY cap 12/01/17 Lubiprostone [Amitiza] 24 mcg PO BID 01/16/18 Omeprazole [Prilosec] 20 mg PO DAILY 01/16/18 insulin aspart U- 100 100 unit/mL subcutaneous solution See Protocol SC TIDCM ml 02/14/18 insulin glargine (U- 100) 100 unit/mL subcutaneous solution 10 unit SC QHS 02/14/18 Atorvastatin Calcium 20 mg PO QHS 06/21/18 Albuterol Sulfate [Ventolin Hfa] 1 - 2 inhaler INHALATION 4X/DAY PRN PRN 06/30/18 Buspirone HCl 20 mg PO TID 06/30/18 Duloxetine Hcl [Cymbalta] 30 mg PO DAILY 06/30/18 olanzapine 15 mg tablet 15 mg PO DAILY 03/28/19 Clindamycin HCl [Cleocin] 300 mg PO TID #21 cap 04/10/19 Oxycodone HCl/Acetaminophen [Percocet 5/325] 1 tab PO 4X/DAY PRN PRN 7 Days #30 tab 04/10/19 The following prescriptions were given: Oxycodone HCl/Acetaminophen [Percocet 5/325] 1 tab PO 4X/DAY PRN PRN 7 Days #30 tab PRN Reason: Pain Clindamycin HCl [Cleocin] 300 mg PO TID #21 cap Primary Care Physician: Aj Staley MD [Primary Care Provider] - Test Results: Test results from this visit will be discussed in further detail at your follow-up appointment, if applicable. Please Follow Up With: Phoenix Boswell MD When: one week. call [phone] for appt. Proposed Discharge Date: 04/10/19
[2019-04-10 11:18] VITALS: BP 121/73; BP 128/92; PULSE 105; RESP 16; TEMP 36.6; O2SAT 95
--- NOTE | 2019-04-10 11:21 | DCINST_ITS ---
You will use the following diet at home:: Calorie/Carbohydrate Controlled (specify 1200, 1400, etc) Discharge Activity: May Shower - in two days., - - keep head elevated. no heavy lifting. May shower in (days): 2 Weight Bearing Status: Weight bearing as tolerated Lifting Restrictions: 20 lbs. Keep extremity elevated above heart level: - - elevate head. Call your doctor if your incision/area has: Continuous Slow Oozing, Sudden Increased Bleeding, Increased Pain/ Swelling, Increased Redness, Foul Smelling Discharge, Swelling at the incision site Call your doctor if you observe: Fever of 101 or Higher, Coldness, Increased Pain, Shortness of breath, Chest pain, Calf discomfort, Uncontrolled pain Suture Line Care: - - apply antibiotic ointment to suture line daily. Cleanse incision/area with: - - may get incision wet in the shower in two days. Allergies/Adverse Reactions: Allergies lamotrigine [From Lamictal] Allergy (Mild, Verified 03/28/19 10:18) Rash adhesive tape Allergy (Verified 03/28/19 10:18) Rash Medications to take at Discharge Clonidine HCl [Catapres] 0.1 mg PO DAILY PRN PRN 01/18/14 Duloxetine Hcl [Cymbalta] 60 mg PO DAILY 01/18/14 Metformin HCl [Glucophage] 1,000 mg PO BIDCM 01/18/14 Tizanidine HCl [Zanaflex] 4 mg PO 4X/DAY 01/18/14 glipiZIDE [Glucotrol] 15 mg PO DAILY@0730 01/18/14 Meloxicam [Mobic] 7.5 mg PO DAILY 01/14/16 Spironolactone [Aldactone] 100 mg PO DAILY 01/14/16 [place] Carbonate [[place] Carbonate ER] 300 mg PO BID 05/10/16 gabapentin 300 mg capsule 300 mg PO 4X/DAY cap 12/01/17 Lubiprostone [Amitiza] 24 mcg PO BID 01/16/18 Omeprazole [Prilosec] 20 mg PO DAILY 01/16/18 insulin aspart U- 100 100 unit/mL subcutaneous solution See Protocol SC TIDCM ml 02/14/18 insulin glargine (U- 100) 100 unit/mL subcutaneous solution 10 unit SC QHS 02/14/18 Atorvastatin Calcium 20 mg PO QHS 06/21/18 Albuterol Sulfate [Ventolin Hfa] 1 - 2 inhaler INHALATION 4X/DAY PRN PRN 06/30/18 Buspirone HCl 20 mg PO TID 06/30/18 Duloxetine Hcl [Cymbalta] 30 mg PO DAILY 06/30/18 olanzapine 15 mg tablet 15 mg PO DAILY 03/28/19 Clindamycin HCl [Cleocin] 300 mg PO TID #21 cap 04/10/19 Oxycodone HCl/Acetaminophen [Percocet 5/325] 1 tab PO 4X/DAY PRN PRN 7 Days #30 tab 04/10/19 The following prescriptions were given: Oxycodone HCl/Acetaminophen [Percocet 5/325] 1 tab PO 4X/DAY PRN PRN 7 Days #30 tab PRN Reason: Pain Clindamycin HCl [Cleocin] 300 mg PO TID #21 cap Primary Care Physician: Aj Staley MD [Primary Care Provider] - Test Results: Test results from this visit will be discussed in further detail at your follow- up appointment, if applicable. Please Follow Up With: Phoenix Boswell MD When: one week. call [phone] for appt. Proposed Discharge Date: 04/10/19
[2019-04-10 11:30] VITALS: BP 121/73; BP 133/79; PULSE 100; RESP 16; O2SAT 94
[2019-04-10 11:45] VITALS: BP 121/73; BP 136/92; PULSE 94; RESP 16; O2SAT 92
[2019-04-10 12:13] VITALS: BP 121/73; BP 136/92; PULSE 93; RESP 16; TEMP 36.4; O2SAT 93
[2019-04-10 12:25] LABS: Bedside Glucose 178 mg/dL (70-110)
[2019-04-10 12:56] VITALS: BP 121/73; BP 126/79; PULSE 90; RESP 18; TEMP 36.9; O2SAT 98
== END 2019-04-10 12:57 | disposition home or self-care (01) ==
LOC: SDC 08:27 → AC 08:28
PROVIDERS: Anesthesiology; Family Provider Family Medicine; PCP Family Medicine; Referring Provider Surgery; Visit Provider Surgery
PROC: (CPT 14060; principal; 2019-04-10 09:40)
DX: L73.2 Hidradenitis suppurativa (principal); L72.0 Epidermal cyst; F17.200 Nicotine dependence, unspecified, uncomplicated; K21.9 Gastro-esophageal reflux disease without esophagitis; Z79.899 Other long term (current) drug therapy; Z79.4 Long term (current) use of insulin; G89.29 Other chronic pain; F41.9 Anxiety disorder, unspecified; F32.9 Major depressive disorder, single episode, unspecified; J45.909 Unspecified asthma, uncomplicated; E11.40 Type 2 diabetes mellitus with diabetic neuropathy, unspecified; M19.90 Unspecified osteoarthritis, unspecified site; I10 Essential (primary) hypertension; E78.5 Hyperlipidemia, unspecified
CPT/HCPCS: 00120; 14060; 69110; 81025; 82962; 83036; 88304; J7120; J2405

== ENCOUNTER 2019-07-02 10:53 | Emergency (ER) | payer MEDICARE, SELFPAY ==
[2019-04-24 09:49] VITALS: BMI 36.4
[2019-07-02 10:54] VITALS: BP 122/67; PULSE 88; RESP 18; TEMP 36; O2SAT 99; BMI 38.2
--- NOTE | 2019-07-02 11:18 | MRI_ITS ---
STUDY: MRI LUMBAR SPINE WITHOUT CONTRAST REASON FOR EXAM: Female, 33 years old. Cauda equina syndrome, chronic low back pain and bilateral leg pain. Numbness, difficulty urinating. TECHNIQUE: Standardized fat and water weighted pulse sequences were obtained in the sagittal and axial planes. COMPARISON: 01/06/2016 FINDINGS: T12-L1: Normal endplates. Normal disc height, hydration and morphology. Normal bilateral facet joints. Normal central canal and bilateral lateral recesses. Normal bilateral intervertebral neural foramina. Normal lumbar lordosis. There is no substantial scoliosis. Normal conus medullaris that terminates at the L1. L1-2: Normal endplates. Normal disc height, hydration and morphology. Normal bilateral facet joints. Normal central canal and bilateral lateral recesses. Normal bilateral intervertebral neural foramina. L2-3: Normal endplates. Normal disc height, hydration and morphology. Normal bilateral facet joints. Normal central canal and bilateral lateral recesses. Normal bilateral intervertebral neural foramina. L3-4: Normal endplates. Normal disc height, hydration and morphology. Normal bilateral facet joints. Normal central canal and bilateral lateral recesses. Normal bilateral intervertebral neural foramina. L4-5: No change in the mild broad disc protrusion which produces minimal spinal stenosis and no neural foraminal stenosis. L5-S1: Interval resolution or resection of the large central disc protrusion/extrusion. A mild broad disc protrusion produces minimal spinal stenosis but mild bilateral neural foraminal stenosis. Normal visualized sacral ala. Normal visualized paraspinous soft tissue structures. MRI/Spine Lumbar (Routine) IMPRESSION: Interval resolution or resection of the large central disc protrusion/extrusion at L5/S1 with resolution of spinal stenosis. Electronically Signed: Jason Del Valle MD at 14:01 EDT Tel , Service support ,
--- NOTE | 2019-07-02 11:20 | ED.VIS.BACK ---
History of Present Illness Chief Complaint: Back Informant: Patient Onset: Days Context: Gradual Onset Timing: Continuous Quality: Aching, Burning Location: Lumbar, Buttock, Right Leg, Left Leg Current Severity: 3/10 Maximum Severity: 5/10 Worsened by: improves with: Movement Relieved by: Nothing Associated Symptoms: Radiation to Right Leg, Radiation to Left Leg, Urinary Retention Narrative: Patient presents to the emergency department with low back pain that radiates down her legs. The patient has a history of chronic back pain. She states that she was in pain management was actually getting epidural injections. She has no history of prior spinal surgery. She states that over the past 3 days, her symptoms have changed. She states normally, is a lot of pain that will radiate down her leg. She states the pain is not as severe, but she is begun to have a lot of numbness and change in sensation in her groin area. She also describes having difficulty knowing when she has to urinate. She denies any trauma. She denies any fevers or chills. Prior similar symptoms: No Recent Illness/Hospitalization: No Past Medical History - Allergies and Home Meds Allergies/Adverse Reactions: Allergies lamotrigine [From Lamictal] Allergy (Mild, Verified 07/02/19 10:57) Rash adhesive tape Allergy (Verified 07/02/19 10:57) Rash Primary Care Physician: Aj Staley MD [Primary Care Provider] - Prior records reviewed: Yes Surgical History: tonsillectomy, - Smoking Status: Current every day smoker Alcohol: None Drugs: None - Family History Maternal Family History: Family History (Last Reviewed 06/30/18 @ 15:48 by Jonny Key DO) Grandmother Thyroid disorder Father Diabetes Heart disease Hypertension High cholesterol Mother Heart disease Hypertension High cholesterol Family History: Reports: Heart Disease, Hypertension, - Paternal Family History: Family History (Last Reviewed 06/30/18 @ 15:48 by Jonny Key DO) Grandmother Thyroid disorder Father Diabetes Heart disease Hypertension High cholesterol Mother Heart disease Hypertension High cholesterol Family History: Reports: Diabetes, Heart Disease, Hypertension Review of Systems General: Denies: Chills, Fever, Sweats Eyes: Denies: Visual changes - bilaterally, Diplopia ENT: Denies: Rhinorrhea, Sore throat Cardiovascular: Denies: Chest pain, Palpitations Respiratory: Denies: Dyspnea, Cough, Dyspnea on exertion Gastrointestinal: Denies: Abdominal pain, Nausea, Vomiting, Diarrhea, Melena, Hematochezia Genitourinary: Denies: Dysuria, Hematuria, Frequency Musculoskeletal: Reports: Back pain. Denies: Extremity Pain Skin: Denies: Rash, Wounds Neurological: Reports: Parasthesia, Numbness. Denies: Headache, Weakness Psych: Denies: Depression Endocrine: Denies: Polyuria Hematologic: Denies: Easy bruising Physical Exam Vital Signs/Narrative: Vital Signs Temp Pulse Resp BP Pulse Ox 07/02/19 10:54 96.8 F L 88 18 122/67 H 99 Inital Vital Signs reviewed: Yes General: Well nourished, Well developed Head: Normocephalic, Atraumatic Eyes: Perrl, EOMI ENT: Moist mucous membranes, No rhinorrhea Neck: Supple, Nontender Cardiovascular: Regular rate, Regular rhythm, No murmurs Respiratory: No distress, CTA bilaterally, Chest nontender Abdomen: Soft, Nontender, Nondistended, Normal bowel sounds, No masses Back: Normal Inspection, Nontender, Positive SLR - Right, Positive SLR - Left Extremeties: Nontender, No edema Skin: Normal color, No rash Neuro: Alert, Oriented, Normal Strength, Normal Sensation, Normal Gait Psychological: Normal affect Diagnostic/Tx/Re-eval Clinical Impression(s) from Imaging Studies Lumbar Spine MRI 07/02/19 11:18 IMPRESSION: Interval resolution or resection of the large central disc protrusion/extrusion at L5/S1 with resolution of spinal stenosis. Electronically Signed: Jason Del Valle MD at 14:01 EDT Tel , Service support , - Medical Decision Making The patient presents with increasing low back pain and perianal numbness. I did review her prior MRI from 3 years ago which showed questionable cauda equina at that time. The patient has not had any spinal surgery. With her symptoms, I did want to rule this out. The patient's pain was addressed and she was feeling improved. Patient underwent MRI which shows no evidence of acute cord impingement. She is able to ambulate through the emergency department. At this point, I am going to treat her with antispasmodics and anti-inflammatories. She is comfortable with this plan of care and will be discharged home. Impression 1. Acute back pain with radiculopathy Disposition: Home ED Disposition - Plan for ED Patient: Instructions: BACK PAIN w/ SCIATICA Prescriptions: cycloBENZAPRine HCl [Flexeril] 10 mg PO TID PRN #20 tab PRN Reason: Muscle Spasm Prescription Printed Naproxen [Naprosyn] 500 mg PO BID PRN #20 tab Prescription Printed Referrals: Aj Staley MD [Primary Care Provider] -
[2019-07-02 12:08] LABS: Bacteria 0 SEEN /hpf (None Seen); Mucous, Urine 0 SEEN /hpf (<or=2+); Red Blood Cells-Urine 0 SEEN /hpf (0-5); White Blood Cells 0 SEEN /hpf (0-5)
[2019-07-02 12:08] LABS: Absolute Lymphocyte Count 3.19 X10^3/uL (0.83-4.51); Absolute Neutrophil Count 6.5 X10^3/uL (2.0-7.7); Basophil% 0.9 % (0-1); Eosinophil# 0.19 X10^3/uL; Eosinophils% 1.8 % (0-5); Hematocrit 39.5 % (37-47); Hemoglobin 13.2 g/dL (12.0-15.0); Lymphocyte # 3.19 X10^3/ul (4.0); Lymphocyte % 30.1 % (19-41); Mean Corp Hgb Conc 33.4 g/dL (32-36); Mean Corpuscular Hgb 31.4 pg (27.0-32.0); Mean Corpuscular Volume 93.8 fL (81-99); Mean Platelet Vol. 8.7 fl (6.2-12.0); Monocyte# 0.55 X10^3/uL; Monocyte% 5.2 % (0-10); NRBC Flagged by Analyzer 0 % (0-5); Neutrophil % 61.3 % (47-70); Platelet Count 412 K/mm3 (150-450); RBC Distribution Width CV 13.5 % (11.6-14.6); RBC Distribution Width SD 46.3 fl (35.1-43.9); Red Blood Count 4.21 M/mm3 (4.2-5.4); White Blood Count 10.6 K/mm3 (4.4-11.0)
[2019-07-02 12:09] LABS: Color, Urine Yellow (Yellow); Glucose, Dipstick Normal (Normal); Ketone-Dipstick Negative (Negative); Leukocyte Esterase-Dipstick Negative /ul (Negative); Nitrite-Dipstick Negative (Negative); Occult Blood-Urine Negative /ul (Negative); Protein-Dipstick Negative (Negative); Urine Bilirubin Dipstick Negative (Negative); Urine Clarity Sl. Cloudy (Clear); Urine Urobilinogen Normal (Normal); Urine pH 6.5 (5.0 - 8.0)
[2019-07-02 12:11] LABS: Internal QC Validated? YES +Cl - CLEAR BKGD; Pregnancy, Urine Negative Negative
[2019-07-02 12:22] LABS: Squamous Epithelial Cells - UA 0-5 SEEN /hpf (5-10)
[2019-07-02] MEDS: 0.9% Normal Saline 1,000 ML 1000 ML IV (12:23)
[2019-07-02] MEDS: Morphine 4 MG/ML Syringe IV (12:23)
[2019-07-02] MEDS: Ondansetron 4 MG/2 ML Vial IV (12:23)
[2019-07-02 12:26] LABS: ALB/GLOB Ratio 1.1 RATIO (0.9-2.4); AST(SGOT) 20 U/L (15-37); Alanine Aminotransfer ALT/SGPT 28 U/L (13-56); Alkaline Phosphatase 83 U/L (45-117); Anion Gap 4 (5-15); BUN 13 mg/dL (7-18); Calcium,Total 9.6 mg/dL (8.5-10.1); Chloride 107 mmol/L (98-107); Creatinine, Serum 0.93 mg/dL (0.55-1.02); EST Glomerular Filtration Rate 73 mL/min (>60); Est Glom Filt Rate - Afr Amer 88 mL/min (>60); Globulin 3.7 g/dL (2.2-4.2); Glucose 157 mg/dL (74-106); Potassium 4.1 mmol/L (3.5-5.1); Protein, Total 7.7 g/dL (6.4-8.2); Sodium Level 138 mmol/L (136-145)
[2019-07-02] MEDS: Ibuprofen 600 MG Tablet PO (14:00)
== END 2019-07-02 14:49 | disposition home or self-care (01) ==
LOC: ED 11:34
PROVIDERS: Emergency Provider Emergency Medicine; Family Provider Family Medicine; PCP Family Medicine
DX: M51.17 Intervertebral disc disorders with radiculopathy, lumbosacral region (principal); M48.07 Spinal stenosis, lumbosacral region; Z79.899 Other long term (current) drug therapy; F17.200 Nicotine dependence, unspecified, uncomplicated
CPT/HCPCS: 72148; 80053; 81001; 81025; 85025; 96361; 96374; 96375; 99283; J7030; A4216; J2405

== ENCOUNTER 2019-07-20 09:46 | Observation (INO) | payer MEDICARE, SELFPAY ==
[2019-07-04 11:49] VITALS: BMI 38.2
--- NOTE | 2019-07-19 20:43 | PCM.HP.BLA ---
History and Physical Date of Admission: 07/20/19 HISTORY OF PRESENT ILLNESS 33 year old woman presents with increasing redness and pain and swelling in her right axilla with a recent flare up of recurrent hidradenitis. She denies fever. She was started on Doxycycline recently. She denies fever. She denies trauma. She denies any drainage or bleeding. She presents at this time for further evaluation and treatment. PAST MEDICAL HISTORY Cat scratch of left hand with infection Cat scratch of right hand with infection Cat scratch Diabetes Hydradenitis Morbid obesity Bipolar affective Osteoarthritis Chronic back pain Diabetic leg ulcer Non-pressure chronic ulcer of right lower leg Smoker. Abscess of sternal region Abscess of breast Alcohol abuse Anxiety and depression Back problem Drug abuse Frequent headaches GERD (gastroesophageal reflux disease) Hay fever Hearing problem Hidradenitis High triglycerides Hyperlipidemia Kidney problem Neuropathy Osteoarthritis Partial thickness burn Recurrent UTI Sinus problem Vision problem HTN (hypertension) PAST SURGICAL HISTORY incision and drainage section tonsillectomy Hidradenitis surgery [place] teeth removal ALLERGIES lamotrigine [From Lamictal] adhesive tape MEDICATIONS Clonidine HCl [Catapres] Duloxetine Hcl [Cymbalta] Tizanidine HCl [Zanaflex] glipiZIDE [Glucotrol] metFORMIN HCl [Glucophage] Meloxicam [Mobic] Spironolactone [Aldactone] ] [place] Carbonate [[place] Carbonate ER] gabapentin Lubiprostone [Amitiza] Omeprazole [Prilosec] insulin aspart insulin glargine (U-100) Atorvastatin Calcium Albuterol Sulfate [Ventolin Hfa] Buspirone HCl Duloxetine Hcl [Cymbalta] olanzapine Clindamycin HCl [Cleocin] Naproxen [Naprosyn] cycloBENZAPRine HCl [Flexeril] doxycycline monohydrate FAMILY HISTORY Grandmother - Thyroid disorder Father -Diabetes, Heart disease, Hypertension, High cholesterol Mother - Heart disease, Hypertension, High cholesterol SOCIAL HISTORY household members: family, children number of children: 1 Smoking Status: Current every day smoker second hand exposure: No alcohol intake: former substance use type: former substance user REVIEW OF SYSTEMS GENERAL: Complains of fatigue. Denies fever and weight loss. Has history of alcohol abuse and drug abuse. EYES: Denies eye pain. ENT: Denies nasal congestion and sore throat. CARDIOVASCULAR: Has fatigue. Denies chest pain, lightheadedness, and shortness of breath with exertion. RESPIRATORY: Complains of cough and shortness of breath. The patient is a smoker. Does have asthma. GI: Denies nausea, vomiting, diarrhea, or constipation. : Denies hematuria and urinary frequency. MUSCULOSKELETAL: Complains of joint pain, back pain, and arthritis. Denies stiffness, muscle weakness, and gout. Has symptoms of bilateral carpal tunnel syndrome with numbness in thumb and index fingers. INTEGUMENTARY: Denies skin cancer. Has history of hidradenitis. Has recent flare up of hidradenitis in right axilla. NEURO: Denies headaches. Denies poor balance and weakness. PSYCH: Denies anxiety and depression. Has bipolar disorder. ENDOCRINE: Denies excessive thirst or urination. Has diabetes mellitus. HEMATOLOGIC: Denies abnormal bruising and fevers. PHYSICAL EXAMINATION HEENT: Pupils equal, round, and reactive to light. Extraocular muscles intact. Throat is clear. Left ear skin flap is healing satisfactory with good earlobe contour. NECK: Supple. No bony tenderness. Has scarring on the posterior neck and occipital scalp from previous excision of hidradenitis. Has good range of motion. No cervical adenopathy. LUNGS: Clear to auscultation. HEART: Regular rate and rhythm. ABDOMEN: Soft and nondistended. BREASTS: Breasts are soft. No masses palpable. No evidence of recurrent infection. No axillary adenopathy. EXTREMITIES: No clubbing, cyanosis, or edema. On the left axillary area is a healed skin graft. In the right axilla is a healed scar from previous hidradenitis excision. Has a reddened nodule in the inferior aspect of the scar that is tender to palpation. There is increased nodularity and induration. No purulent drainage. No ulceration. Hidradenits scar measures 10 cm. No axillary adenopathy noted bilaterally. Radial pulses are palpable. NEURO: Cranial nerves II through XII grossly intact. Some paresthesias in the thumb and index finger bilaterally. ASSESSMENT 1. Painful recurrent right axillary hidradenitis. 2. Smoker. 3. Diabetes mellitus. PLAN She is currently on Doxycycline but is running low. Will renew the Doxycycline to minimize further flare ups until surgery. Recommend surgical preparation right axilla with excision recurrent hidradenitis. Will leave the wound open and begin postop wound care with the VAC. After 2-4 weeks of wound care, will consider returning to surgery for delayed closure with skin grafting. Tissue that is removed at surgery will be sent to Pathology for analysis to rule out carcinoma and to Microbiology for culture. A positive culture will necessitate antibiotic therapy. Will schedule the surgery to be done on under general anesthesia with a surgical observation overnight stay in the hospital. Patient was informed of the risks and complications of the procedure including alternatives to surgery. These were discussed with the patient personally. Patient voices understanding and wishes to proceed. Some of the risks and complications were included in a form from the [employer]. Encouraged the patient to stop smoking as it may have deleterious effects on wound healing. Her last HgbA1c was 6.8 on 04/10/19.
[2019-07-20] VITALS (15 sets, daily range): BP systolic 110–155; BP diastolic 65–103; PULSE 80–108; RESP 16–18; TEMP 36.1–37.3; O2SAT 93–100; BMI 38.7
[2019-07-20 08:16] LABS: Internal QC Validated? YES +Cl - CLEAR BKGD; Pregnancy, Urine Negative Negative
[2019-07-20] MEDS: Lactated Ringers 1,000 ML 100 ML IV (08:26)
[2019-07-20 08:31] LABS: Bedside Glucose 197 mg/dL (70-110)
[2019-07-20] MEDS: Cefazolin 2 GM in 0.9% Normal Saline 100 ML IV (08:52)
--- NOTE | 2019-07-20 09:20 | HID_PTH ---
PATIENT: ROGER HOOD LOC: MS3 U#:[id number] AGE/SX: 33/F ROOM: MS310 RE07/20/[address]: Dr. Phoenix Boswell MD : 1985 BED: 1 DIS: 07/22/2019 SPEC #: [id number] RECD: 07/20/19 10:46 STATUS: MAYI REGarrett #: [id number] RADHAMES: 07/20/19 09:[address]: Phoenix Boswell DEPT: SURGICAL PATHOLOGY RECD BY: Gerardo Herndon ENTERED: 07/20/19 11:28 SP TYPE: Hidradenit LUZ MARIA DR: Dr. Aj Staley MD Tissues: Axilla, NOS Procedures: Surgery Specimen Level III HEADER OPERATION: Surgical preparation right axilla with excision recurrent hidradenitis PRE-OP DIAGNOSIS: Painful recurrent right axillary hidradenitis TISSUE SUBMITTED: Hidradenitis, right axilla MICROSCOPIC DIAGNOSIS Hidradenitis, right axilla: A piece of skin with underlying tissue with mild chronic inflammation, fibrosis and focal foreign body giant cell reaction. PATSY:anastasiia 07/24/19 MICROSCOPIC DESCRIPTION Slides are reviewed. GROSS DESCRIPTION Received in fixative is one container labeled with the patient's name and designated hidradenitis right axilla. The specimen consists of a piece of skin with underlying tissue measuring 9 x 3.5 cm and up to 3.5 cm in thickness. No skin lesion is identified. Sections do not reveal any mass lesion. [employer] sections are submitted in three cassettes. / PATSY:anastasiia 07/20/19 TC:3 CPT: 50383
--- NOTE | 2019-07-20 09:39 | OP.PCM_ITS ---
Report of Operation Date of Procedure: 07/20/19 Pre-Operative Diagnosis: 1. Painful recurrent right axillary hidradenitis. 2. Smoker. 3. Diabetes mellitus. Post-Operative Diagnosis: Same. Surgery/Procedure Performed:: Surgical preparation right axilla with excision p ainful recurrent hidradenitis (117 cm2). Description of Surgical Findings:: 33 year old woman presents with increasing redness and pain and swelling in her right axilla with a recent flare up of recurrent hidradenitis. She denies fever. She was started on Doxycycline recently. She denies fever. She denies trauma. She denies any drainage or bleeding. Patient was informed of the risks and complications of the procedure including alternatives to surgery. These were discussed with the patient personally. Patient voices understanding and wishes to proceed. Some of the risks and complications were included in a form from the [place] [employer]. Encouraged patient to stop smoking as it may have deleterious effects on wound healing. Size of defect right axilla - 13 x 9 x 2 cm. emergency services dispatcher: None Type of Anesthesia:: General Specimen's removed: Recurrent hidradenitis right axilla to Pathology and Microbiology. Drains: None. Estimated Blood Loss (mL): 50 ml. Description of Procedure: Patient was taken to OR in supine position and was placed under general anesthesia. The right axilla was prepped and draped in the usual fashion. SCD's were placed for DVT prophylaxis. Perioperative antibiotics were given intravenously. Using a scalpel, I proceeded with surgical preparation of the right axilla with excision of her recurrent hidradenitis. No purulent drainage was seen. In the subcutaneous tissue, there was extensive fat necrosis. There was indurated scar tissue extending down to the muscle that was excised. Some of the tissue was sent to Pathology for analysis to rule out carcinoma and to Microbiology for culture. A positive culture will necessitate antibiotic therapy. The wound was irrigated with saline. Hemostasis was obtained with electrocautery. The size of the defect right axilla after excision hidradenitis was 13 x 9 x 2 cm or 117 cm2. The wound was dressed with Mepitel nonadherent dressing followed by Kerlix gauze and Betadine followed by dry Kerlix gauze followed by ABD pads and compression MATILDA wrap. Patient tolerated the procedure well and was sent to PACU in satisfactory condition. Patient will be sent upstairs for continued postop care. The VAC will be applied tomorrow. Grafts/Implants Used: None. - Complications None. - Admit VTE Documentation VTE Present on Admission: No VTE Mechan Device Prophylaxis: SCD's VTE Pharm Prophylaxis ordered?: No Code Visit Surgery Charges CPT - 56298 ICD-10 - L73.2, S41.101A, E11.9, F17.200 92007 L73.2, S41.101A, E11.9, F17.200
[2019-07-20 09:56] LABS: Bedside Glucose 195 mg/dL (70-110)
[2019-07-20] MEDS: Lactated Ringers 1,000 ML 60 ML IV ×2 (10:45→14:36)
[2019-07-20] MEDS: HYDROmorphone 1 MG/ML Syringe IV ×4 (12:05→21:14)
[2019-07-20 12:20] LABS: Bedside Glucose 210 mg/dL (70-110)
--- NOTE | 2019-07-20 13:00 | CASEMGMT ---
DOMINICK BARRIGA updated by wound nurse that patient will require HHC for wound vac at discharge. DOMINICK CM in to discuss need for HHC and list provided of HHC agencies. Patient states she has had [facility] in the past and would like them again. DOMINICK BARRIGA sent referral to [facility] and they are able to accept the patient. DOMINICK BARRIGA updated the patient regarding HHC setup with [facility]. CM to continue to follow this patient and plan for a safe discharge.
[2019-07-20] MEDS: tiZANidine HCl 2 MG Tablet 4 MG PO ×3 (13:41→21:06)
[2019-07-20] MEDS: DULoxetine Hcl 30 MG Capsule 90 MG PO (13:41)
[2019-07-20] MEDS: busPIRone 5 MG Tablet 20 MG PO ×2 (13:42→21:06)
[2019-07-20] MEDS: Gabapentin 300 MG Capsule PO ×3 (13:42→21:06)
[2019-07-20] MEDS: Meloxicam 7.5 MG Tablet PO (13:42)
[2019-07-20] MEDS: Ondansetron 4 MG/2 ML Vial IV (14:32)
--- NOTE | 2019-07-20 15:21 | CON.PCM_ITS ---
Problem List (1) Chronic neck pain Status: Chronic (2) Bilateral carpal tunnel syndrome Status: Chronic Comment: worse on left (3) Hidradenitis suppurativa Status: Chronic Comment: Painful recurrent right axillary hidradenitis 6 mm hidradenitis right posterior earlobe 4 cm recurrent hidradenitis posterior neck and occipital scalp (4) Diabetes Status: Chronic Comment: type 2 Dx : 2013 Last exacerbation : DKA : never Hypoglycemic episode : never ER visit : 01/08 - 500+ (5) Morbid obesity Status: Chronic (6) Bipolar affective Status: Chronic (7) Chronic back pain Status: Chronic (8) Smoker Status: Chronic Comment: F17.200 Reason for Consult Date of Consultation: 07/20/19 Reason for Consultation: Postoperative medical management. History of Present Illness: The patient is a 33 year old F with past medical history as mentioned above admitted today after she underwent elective surgical excision for right axillary pain for recurrent hydradenitis and I am seeing this patient in consultation for postoperative medical management. At this time, patient complained of right axilla soreness and discomfort. She received pain medication and she feels better. She denies any other complaints. She denies chest pain or shortness of breath. Denies fever or chills. She had a history of type 2 diabetes mellitus, has been on Lantus, glipizide, metformin and pre-meal insulin and her blood sugar has been under fair control. Her hemoglobin A1c was 11% on December, and has been coming down gradually and on Mar, 2019, it was 6.8%. She has history of depression and bipolar disorder, has been on multiple medications including buspirone, Cymbalta, lithium and olanzapine as well as PRN clonidine and she has been stable. She is a history of hyperlipidemia and she has been on statins. At this time, her vital signs are stable. Her preoperative routine blood work that was done on July 02, 2019 was unremarkable. She is on IV cefazolin. Wound cultures are sent and pending. Past Medical History Past Medical History (Chronic Problems): Chronic Problems (Last Updated 07/20/19 @ 15:00 by Laura Sandoval MD) Branchial cleft sinus (Chronic) Chronic neck pain (Chronic) Bilateral carpal tunnel syndrome (Chronic) worse on left Hidradenitis suppurativa (Chronic) Painful recurrent right axillary hidradenitis 6 mm hidradenitis right posterior earlobe 4 cm recurrent hidradenitis posterior neck and occipital scalp History of incision and drainage (Chronic) Left side of neck 12/02/17, RIGHT BREAST ABSCESS 09/17/2014, LEFT BREAST ABSCESS 10/11/2014, INGUINAL HYDRADENITIS, AXILLARY HYDRADENITIS Diabetes (Chronic) type 2 Dx : 2012 Last exacerbation : DKA : never Hypoglycemic episode : never ER visit : 01/08 - 500+ Hydradenitis (Chronic) hidradenitis left axilla - L73.2 Morbid obesity (Chronic) Bipolar affective (Chronic) Osteoarthritis (Chronic) Chronic back pain (Chronic) Diabetic leg ulcer (Chronic) nonhealing diabetic ulcer right medial leg - E11.622 Non-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 fat layer exposed (Chronic) diabetic ulcer right medial leg - L97.912 Smoker (Chronic) 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 H/O hidradenitis suppurativa (Chronic) Z87.2 Medical History: Medical History (Last Updated 07/20/19 @ 15:00 by Laura Sandoval MD) Cat scratch of left hand with infection (Acute) S60.512A, L08.9, W55.03XA cat scratch infection dorsum left hand at proximal index finger Cat scratch of right hand with infection (Acute) S60.511A, L08.9, W55.03XA cat scratch infection dorsum right hand with extension to long finger Cat scratch (Acute) W55.03XA cat scratch infection dorsum right hand with extension to long finger cat scratch infection dorsum left hand at proximal index finger Diabetes (Chronic) E11.9 type 2 Dx : 2012 Last exacerbation : DKA : never Hypoglycemic episode : never ER visit : 01/08 - 500+ Morbid obesity (Chronic) E66.01 Bipolar affective (Chronic) F31.9 Osteoarthritis (Chronic) Chronic back pain (Chronic) M54.9, G89.29 Diabetic leg ulcer (Chronic) E11.622, L97.909 nonhealing diabetic ulcer right medial leg - E11.622 Non-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 fat layer exposed (Chronic) L97.912 diabetic ulcer right medial leg - L97.912 Open wound of left axillary region (Acute) S41.102A open surgical hidradenitis wound left axilla - S41.102A 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 compromised skin graft left axilla Abscess of sternal region (Acute) L02.213 L02.213 Sternal chest wall wound abscess Open wound of chest wall, complicated (Acute) S21.109A S21.109D open chest wall sternal wound H/O hidradenitis suppurativa (Chronic) Z87.2 Z87.2 Abscess of breast (Acute) N61.1 abscess right medial breast Alcohol abuse F10.10 Anxiety and depression F41.9, F32.9 Asthma J45.909 Drug abuse F19.10 GERD (gastroesophageal reflux disease) K21.9 Hidradenitis L73.2 LEFT INGUINAL, RIGHT AXILLARY, POSTERIOR NECK, Hyperlipidemia E78.5 Neuropathy G62.9 Non-healing surgical wound T81.89XA NON HEALING HIDRADENITIS WOUND POSTERIOR NECK. NON HEALING INFECTED HIDRADENITIS ULCER POSTERIOR NECK Osteoarthritis M19.90 [place] teeth removed K08.499 HTN (hypertension) I10 Allergies lamotrigine [From Lamictal] Allergy (Mild, Verified 07/20/19 08:00) Rash adhesive tape Allergy (Verified 07/20/19 08:00) Rash Home Medications: Ambulatory Orders Medication Instructions Recorded Clonidine HCl [Catapres] 0.1 mg PO DAILY PRN PRN 01/18/14 Duloxetine Hcl [Cymbalta] 60 mg PO DAILY 01/18/14 Tizanidine HCl [Zanaflex] 4 mg PO 4X/DAY 01/18/14 glipiZIDE [Glucotrol] 15 mg PO DAILY@0730 01/18/14 metFORMIN HCl [Glucophage] 1,000 mg PO BIDCM 01/18/14 Meloxicam [Mobic] 7.5 mg PO DAILY 01/14/16 Spironolactone [Aldactone] 100 mg PO DAILY 01/14/16 [place] Carbonate [[place] 300 mg PO TID 05/10/16 Carbonate ER] gabapentin 300 mg capsule 300 mg PO 4X/DAY cap 12/01/17 Lubiprostone [Amitiza] 24 mcg PO BID 01/16/18 Omeprazole [Prilosec] 20 mg PO DAILY 01/16/18 insulin aspart U-100 100 unit/mL See Protocol SC TIDCM ml 02/14/18 subcutaneous solution Atorvastatin Calcium 20 mg PO QHS 06/21/18 Albuterol Sulfate [Ventolin Hfa] 1 - 2 inhaler INHALATION 4X/DAY 06/30/18 PRN PRN Buspirone HCl 20 mg PO TID 06/30/18 Duloxetine Hcl [Cymbalta] 30 mg PO DAILY 06/30/18 olanzapine 15 mg tablet 15 mg PO DAILY 03/28/19 Naproxen [Naprosyn] 500 mg PO BID PRN #20 tab 07/02/19 doxycycline monohydrate 100 mg 100 mg PO BID 30 Days #60 tab 07/04/19 tablet Insulin Glargine [Lantus (BKC)] 10 units SUBCUT QHS 07/13/19 Surgical History: Surgical History (Last Updated 07/20/19 @ 15:00 by Laura Sandoval MD) History of section (Acute) Z98.891 History of tonsillectomy (Acute) Z98.890, Z90.89 Surgical History: tonsillectomy, - Psychiatric History: Anxiety, Bipolar, Depression Smoking Status: Current every day smoker Tobacco Use: Cigarettes - *Family History Maternal Family History: Family History (Last Reviewed 07/04/19 @ 11:30 by Sandy Crowder) Grandmother Thyroid disorder Father Diabetes Heart disease Hypertension High cholesterol Mother Heart disease Hypertension High cholesterol History Items: Heart Disease, Hypertension, - Paternal Family History: Family History (Last Reviewed 07/04/19 @ 11:30 by Sandy Crowder) Grandmother Thyroid disorder Father Diabetes Heart disease Hypertension High cholesterol Mother Heart disease Hypertension High cholesterol History Items: Diabetes, Heart Disease, Hypertension Review of Systems Constitutional: Denies: Anorexia, Chills, Fever, Weakness Eyes: Denies: Blurred vision, Double vision, Drainage, Redness HEENT: Denies: Dysphasia, Ear Pain, Nasal Congestion, Sore Throat Cardiovascular: Denies: Chest Pain, Chest Pressure, Heaviness, Light Headedness, Palpitations, Syncope Respiratory: Denies: Cough, Hemoptysis, Pleuritic Pain, Shortness of Breath, Sputum production Gastrointestinal: Denies: Abdominal Pain, Constipation, Diarrhea, Nausea, Vomiting Genitourinary: Denies: Dysuria, Frequency, Hematuria Musculoskeletal: Reports: Arm Pain. Denies: Back Pain, Foot Pain Skin: Denies: Dryness, Rash Neurological: Denies: Balance problems, Double vision, Change in Speech, Slurred speech, Confusion, Focal weakness, Headaches, Incoordination, Numbness Psychiatric: Reports: Anxiety, Depression Endocrine: Denies: Change in Body Habitus, Polydipsia, Polyuria - Physical Exam General: Alert, Oriented x3, Cooperative, No apparent distress HEENT: Atraumatic, PERRLA, EOMI, Normocephalic Oral: Moist Mucosa, No Gingival or Mucosal Lesions/ Ulcerations Neck: Supple, No JVD, Negative Carotid Bruits, Trachea Midline, Thyroid Normal Size and Texture Lungs: Clear to auscultation, Normal air movement, No rhonchi, No wheeze, No rales Cardiovascular: Regular rate, Regular Rhythm, Normal S1, Normal S2, No murmurs, PMI Normal Abdomen: Bowel Sounds Present, Soft, Non Tender, Non-Distended, No Hepato- splenomegaly, Obese Extremities: No clubbing, No cyanosis, No edema Skin: No rashes, Ulcer/ Wound Lymphatic: No Cervical, Supraclavicular, or Inguinal Adenopathy Neurological: Cranial nerves II-XII grossly intact, Motor Exam 5/5 strength throughout Psych/Mental Status: Normal Affect, Appropriate, Alert and oriented to time, place, person, mood and affect Vital Signs Temp Pulse Resp BP Pulse Ox 98.0 F 98 16 120/69 100 07/20/19 13:45 07/20/19 13:45 07/20/19 13:45 07/20/19 13:45 07/20/19 13:45 Oxygen Delivery Method Room Air Weight: 233 lb 0.458 oz Body Mass Index (BMI) 38.7 Finger Stick Blood Glucose 195 Intake and Output for Last 24 Hours 07/18/19 07/19/19 07/20/19 23:59 23:59 23:59 Intake Total 1471 / 1471 Output Total 1100 / 1100 Balance 371 / 371 Microbiology Past 72 Hours 07/20/19 Unknown Gram Stain - Final Tissue - Other Laboratory Tests Past 24 Hrs 07/20/19 08:00 Urine Test Negative POC Glucose 07/20/19 07/20/19 07/20/19 12:12 09:53 08:13 POC Glucose 210 H 195 H 197 H Assessment/Plan All Active Problems (Last Updated 07/20/19 @ 15:00 by Laura Sandoval MD) Abscess of neck (Acute) Open wound involving head with neck, complicated (Acute) Unspecified open wound of unspecified part of head, subsequent encounter (Acute) Unspecified open wound of unspecified part of neck, subsequent encounter (Acute) Diabetes mellitus type 2, uncontrolled (Acute) Folliculitis (Acute) Abscess, scalp (Acute) Muscle spasms of neck (Acute) Cellulitis of right hand (Acute) Cat bite (Acute) Cat bite of right hand with infection (Acute) Abscess of dorsum of right hand (Acute) Necrotizing soft tissue infection (Acute) History of section (Acute) History of tonsillectomy (Acute) Cat scratch of left hand with infection (Acute) Cat scratch of right hand with infection (Acute) Cat scratch (Acute) Open wound of left axillary region (Acute) Abscess of sternal region (Acute) Open wound of chest wall, complicated (Acute) Abscess of breast (Acute) This is a 33 years old female patient admitted to the hospital after she underwent elective surgical excision for right axilla pain for recurrent hidradenitis and I am seeing this patient in consultation for postoperative medical management. #1 status post surgical excision of right axilla pain for the recurrent tendinitis: Postoperative day 0. She is on IV cefazolin. She is on IV fluids, IV Dilaudid for pain. Her vital signs are stable. Wound culture sent. Preoperative routine blood work reviewed as above and was unremarkable. Dr. Boswell is managing. #2 type 2 diabetes mellitus: Blood sugar has been under fair control, hemoglobin A1c came down to 6.8%, it was 11% on December,. Continue home doses of Lantus, continue glipizide and metformin, start exercising scale. #3 anxiety/depression: Stable, continue BuSpar, Cymbalta and as needed Valium. #4 bipolar disorder: Stable, continue lithium and olanzapine. #5 asthma: Stable, pulse ox is maintained on room air. Plan for albuterol as needed. #6 tobacco abuse: NicoDerm patch if desired. #7 chronic pain syndrome: She is on OxyIR PRN, IV Dilaudid as needed, continue meloxicam. # #8 DVT prophylaxis: SCDs. This note was generated with Dragon dictation software. It may contain incorrect words, spelling, and punctuation that were not noted in checking the note before signing. Code Visit Inpatient E&M: 13805 Init Hosp L2
[2019-07-20] MEDS: Cefazolin 1 GM/50 ML BAG IV (16:30)
[2019-07-20] MEDS: oxyCODONE 5 MG Tablet 10 MG PO ×2 (16:31→20:39)
[2019-07-20] MEDS: metFORMIN HCl 1,000 MG Tablet 1000 MG PO (16:31)
[2019-07-20] MEDS: Insulin Lispro 100 UNIT/ML INSULN.PEN SC ×2 (16:39→21:20)
[2019-07-20 16:40] LABS: Bedside Glucose 296 mg/dL (70-110)
[2019-07-20] MEDS: proMETHazine 25 MG Tablet PO (19:37)
--- NOTE | 2019-07-20 20:35 | NURSING ---
when assisting pt to brp found pill in pt's bed. pt wanting to take pill. this RN explained to pt that we cannot be sure what exactly it is or when it was dropped into the bed and that it would have to be discarded of. pt is apologetic and verbalizes understanding. this RN reported to and showed to chargemaster analyst Diane. looked up medication with clinical pharmacology to discover it was an oxyir 5 mg. wasted oxyir 5 mg in rx destroyer with supervisor ovens DOMINICK Martinez as witness and verification.
[2019-07-20] MEDS: Lubiprostone 24 MCG Capsule PO (21:06)
[2019-07-20] MEDS: Atorvastatin Calcium 20 MG Tablet PO (21:06)
[2019-07-20] MEDS: Docusate Sodium 100 MG Capsule PO (21:06)
[2019-07-20] MEDS: 0.9% NaCl Peripheral Flush Adult/Peds IV (21:14)
[2019-07-20] MEDS: Lithium Carbonate 300mg Capsule 300 MG PO (21:23)
[2019-07-20 21:30] LABS: Bedside Glucose 162 mg/dL (70-110)
[2019-07-20] MEDS: Albuterol 2.5 MG/3 ML VIAL.NEB. INHALATION (21:51)
[2019-07-20] MEDS: Acetaminophen 500 MG Tablet PO (23:29)
[2019-07-20] MEDS: diazePAM 5 MG Tablet PO (23:30)
[2019-07-21] MEDS: 0.9% NaCl Peripheral Flush Adult/Peds IV ×7 (00:19→17:09)
[2019-07-21] MEDS: Cefazolin 1 GM/50 ML BAG IV ×3 (00:19→17:08)
[2019-07-21] MEDS: Ondansetron 4 MG/2 ML Vial IV ×3 (00:20→16:58)
[2019-07-21] MEDS: HYDROmorphone 1 MG/ML Syringe IV ×8 (00:20→23:07)
[2019-07-21] MEDS: oxyCODONE 5 MG Tablet 10 MG PO ×5 (00:52→19:09)
[2019-07-21 03:10] VITALS: BP 138/88; PULSE 92; RESP 16; TEMP 36.5; O2SAT 100
[2019-07-21] MEDS: cloNIDine HCl 0.1 MG Tablet PO (03:24)
[2019-07-21] MEDS: Acetaminophen 500 MG Tablet PO (04:09)
[2019-07-21] MEDS: busPIRone 5 MG Tablet 20 MG PO ×3 (05:16→22:29)
[2019-07-21] MEDS: Lithium Carbonate 300mg Capsule 300 MG PO ×3 (05:16→22:29)
[2019-07-21] MEDS: Insulin Lispro 100 UNIT/ML INSULN.PEN SC ×3 (06:30→22:30)
[2019-07-21 06:41] LABS: Bedside Glucose 218 mg/dL (70-110)
[2019-07-21 07:32] LABS: Hematocrit 36.9 % (37-47); Hemoglobin 11.8 g/dL (12.0-15.0); Mean Corpuscular Hgb 31.2 pg (27.0-32.0); Mean Corpuscular Volume 97.6 fL (81-99); Mean Platelet Vol. 9.4 fl (6.2-12.0); Platelet Count 333 K/mm3 (150-450); RBC Distribution Width CV 13.5 % (11.6-14.6); RBC Distribution Width SD 48.4 fl (35.1-43.9); Red Blood Count 3.78 M/mm3 (4.2-5.4); White Blood Count 14.6 K/mm3 (4.4-11.0)
[2019-07-21 07:49] LABS: Anion Gap 7 (5-15); BUN 12 mg/dL (7-18); BUN/Creat Ratio 13.2 RATIO (10-20); Calcium,Total 8.8 mg/dL (8.5-10.1); Chloride 106 mmol/L (98-107); Creatinine, Serum 0.91 mg/dL (0.55-1.02); EST Glomerular Filtration Rate 75 mL/min (>60); Est Glom Filt Rate - Afr Amer 91 mL/min (>60); Estimated Creatinine Clearance 78.38 ml/min; Glucose 205 mg/dL (74-106); Potassium 4.1 mmol/L (3.5-5.1); Prealbumin 34.1 mg/dL (20.0-40.0); Sodium Level 138 mmol/L (136-145)
--- NOTE | 2019-07-21 07:58 | PCM.PN.HOSP ---
Subjective: Patient complained of severe pain over axillary region, right side postoperative site. Right axillary covered with Duane wrap bandage. Patient has other comorbidities including diabetes mellitus type 2, bipolar, chronic back pain, lumbar disc degeneration with a spinal stenosis. She also complained of chronic constipation and ON AMITZA, so possible IBS?C-type Vitals/I&O's: Vital Signs Temp Pulse Resp BP Pulse Ox 97.7 F L 92 16 138/88 H 100 07/21/19 03:10 07/21/19 03:10 07/21/19 03:10 07/21/19 03:10 07/21/19 03:10 Oxygen Delivery Method Room Air Weight: 233 lb 0.458 oz Body Mass Index (BMI) 38.7 Finger Stick Blood Glucose 195 Intake and Output for Last 24 Hours 07/19/19 07/20/19 07/21/19 23:59 23:59 23:59 Intake Total 2231 / 2231 1653 / 1653 Output Total 1600 / 1600 2600 / 2600 Balance 631 / 631 -947 / -947 General: Alert, Oriented x3, Cooperative HEENT: Atraumatic, PERRLA, EOMI, Normocephalic Neck: Supple, No JVD, Negative Carotid Bruits Lungs: Clear to auscultation, No wheeze, No rales, Diminished Cardiovascular: Regular rate, Regular Rhythm, Normal S1, Normal S2, No murmurs Abdomen: Bowel Sounds Present, Soft, Non Tender, Non-Distended Extremities: No edema, Capillary Refill Less than 3 Seconds, Tenderness, - - Right axilla under Duane wrap bandage. Tender Skin: No rashes, No breakdown Musculoskeletal: - - Chronic lumbar spinal tenderness Neurological: Cranial nerves II-XII grossly intact Psych/Mental Status: Normal Affect, Appropriate Microbiology Past 72 Hours 07/20/19 Unknown Tissue - Other Gram Stain - Final Laboratory Results 07/20/19 08:00: Urine Test Negative 07/20/19 08:13: POC Glucose 197 H 07/20/19 09:53: POC Glucose 195 H 07/20/19 12:12: POC Glucose 210 H 07/20/19 16:33: POC Glucose 296 H 07/20/19 21:19: POC Glucose 162 H 07/21/19 06:29: POC Glucose 218 H 07/21/19 06:46: WBC 14.6 H, RBC 3.78 L, Hgb 11.8 L, Hct 36.9 L, MCV 97.6, MCH 31.2, MCHC 32.0, RDW Std Deviation 48.4 H, RDW Coeff of Radha 13.5, Plt Count 333, MPV 9.4 07/21/19 06:46: Sodium 138, Potassium 4.1, Chloride 106, Carbon Dioxide 25.0, Anion Gap 7, BUN 12, Creatinine 0.91, Estim Creat Clear Calc 78.38, Est GFR (MDRD) Af Amer 91, Est GFR (MDRD) Non-Af 75, BUN/Creatinine Ratio 13.2, Glucose 205 H, Calcium 8.8, Prealbumin 34.1 07/21/19 06:46: Hemoglobin A1c Pending Current Medications Acetaminophen (Tylenol) 500 mg PO Q4H PRN PRN PRN Reason: PAIN Last Admin: 07/21/19 04:09 Dose: 500 mg Documented by: Albuterol Sulfate (Ventolin Aerosols) 2.5 mg INHALATION Q4H PRN PRN Reason: ALLERGIES Last Admin: 07/20/19 21:51 Dose: 2.5 mg Documented by: Atorvastatin Calcium (Lipitor) 20 mg PO QHS [facility] Last Admin: 07/20/19 21:06 Dose: 20 mg Documented by: Buspirone HCl (Buspar) 20 mg PO TID [facility] Last Admin: 07/21/19 05:16 Dose: 20 mg Documented by: Clonidine (Catapres) 0.1 mg PO DAILY PRN PRN PRN Reason: ANXIETY Last Admin: 07/21/19 03:24 Dose: 0.1 mg Documented by: Diazepam (Valium) 5 mg PO 4X/DAY PRN PRN PRN Reason: SPASMS Last Admin: 07/20/19 23:30 Dose: 5 mg Documented by: Docusate Sodium (Colace) 100 mg PO BID [facility] Last Admin: 07/20/19 21:06 Dose: 100 mg Documented by: Duloxetine HCl (Cymbalta) 90 mg PO DAILY [facility] Last Admin: 07/20/19 13:41 Dose: 90 mg Documented by: Gabapentin (Neurontin) 300 mg PO 4X/DAYCM [facility] Last Admin: 07/20/19 21:06 Dose: 300 mg Documented by: Glipizide (Glucotrol) 15 mg PO DAILY@0730 [facility] Hydromorphone HCl (Dilaudid Inj) 1 mg IV Q3H PRN PRN PRN Reason: SEVERE PAIN (6-08/30) Last Admin: 07/21/19 06:17 Dose: 1 mg Documented by: Cefazolin Sodium () 1 gm in 50 mls @ 100 mls/hr IV Q8H [facility] Last Infusion: 07/21/19 00:49 Dose: Infused Documented by: Lactated Ringer's () 1,000 mls @ 60 mls/hr IV .[id number] [facility] Last Infusion: 07/21/19 00:49 Dose: 60 mls/hr Documented by: Sodium Chloride () 250 mls @ 15 mls/hr IV .[id number] PRN PRN Reason: SALINE FLUSH Insulin Glargine (Lantus (Bk)) 10 units SC QHS [facility] Last Admin: 07/20/19 21:19 Dose: 5 u Documented by: Insulin Human Lispro (Humalog Kwikpen (Bk)) 0 unit SC ACHS [facility]; Protocol Last Admin: 07/21/19 06:30 Dose: 2 u Documented by: [place] Carbonate ([place] Carbonate) 300 mg PO TID [facility] Last Admin: 07/21/19 05:16 Dose: 300 mg Documented by: Lubiprostone (Amitiza) 24 mcg PO BID [facility] Last Admin: 07/20/19 21:06 Dose: 24 mcg Documented by: Meloxicam (Mobic) 7.5 mg PO DAILY [facility] Last Admin: 07/20/19 13:42 Dose: 7.5 mg Documented by: Metformin HCl (Glucophage) 1,000 mg [facility] Last Admin: 07/20/19 16:31 Dose: 1,000 mg Documented by: Nicotine (Nicoderm Cq ([facility])) 21 mg TRANSDERM. DAILY [facility] Last Admin: 07/20/19 16:31 Dose: 21 mg Documented by: Olanzapine (Zyprexa) 15 mg PO DAILY [facility] Ondansetron HCl (Zofran) 4 mg IV Q6H PRN PRN PRN Reason: NAUSEA Last Admin: 07/21/19 06:25 Dose: 4 mg Documented by: Oxycodone HCl (Oxyir) 10 mg PO Q4H PRN PRN PRN Reason: SEVERE PAIN (6-10/10) Last Admin: 07/21/19 05:16 Dose: 10 mg Documented by: Pantoprazole Sodium (Protonix) 20 mg PO DAILY [facility] Promethazine HCl (Phenergan Tablet) 25 mg PO Q4H PRN PRN PRN Reason: NAUSEA/VOMITING Last Admin: 07/20/19 19:37 Dose: 25 mg Documented by: Sodium Chloride () 10 - 40 ml IV UD PRN PRN Reason: SALINE FLUSH Last Admin: 07/21/19 06:16 Dose: 10 ml Documented by: Spironolactone (Aldactone) 100 mg PO DAILYCM [facility] Tizanidine HCl (Zanaflex) 4 mg PO 4X/DAY [facility] Last Admin: 07/20/19 21:06 Dose: 4 mg Documented by: Medical Necessity - Tobacco Use Smoking Status: Current every day smoker Tobacco Use: Cigarettes Assessment/Plan All Active Problems (Last Updated 07/20/19 @ 15:00 by Laura Sandoval MD) Abscess of neck (Acute) Open wound involving head with neck, complicated (Acute) Unspecified open wound of unspecified part of head, subsequent encounter (Acute) Unspecified open wound of unspecified part of neck, subsequent encounter (Acute) Diabetes mellitus type 2, uncontrolled (Acute) Folliculitis (Acute) Abscess, scalp (Acute) Muscle spasms of neck (Acute) Cellulitis of right hand (Acute) Cat bite (Acute) Cat bite of right hand with infection (Acute) Abscess of dorsum of right hand (Acute) Necrotizing soft tissue infection (Acute) History of section (Acute) History of tonsillectomy (Acute) Cat scratch of left hand with infection (Acute) Cat scratch of right hand with infection (Acute) Cat scratch (Acute) Open wound of left axillary region (Acute) Abscess of sternal region (Acute) Open wound of chest wall, complicated (Acute) Abscess of breast (Acute) This is a 33 years old female patient admitted to the hospital after she underwent elective surgical excision for right axilla pain for recurrent hidradenitis status post excision. Patient also had hidradenitis suppurativa in left axilla for which she required excision and groin hidradenitis in the past. #1 Recurrent hidradenitis suppurativa status post right axillary excision on 07/20/2019: She is on IV cefazolin. Surgical dressing as per Dr. Boswell. Positive fluid balance 950 mL. IV fluid discontinued. Her vital signs are stable. Wound culture sent. Review of blood work shows mild leukocytosis probably surgical inflammation. #2 type 2 diabetes mellitus: Blood sugar has been under fair control, hemoglobin A1c came down to 6.8%, it was 11% on December,. Continue home doses of Lantus, continue glipizide and metformin. Accu-Chek before meals and at bedtime cover with Humalog sliding scale. #3 anxiety/depression: Stable, continue BuSpar, Cymbalta and as needed Valium. #4 bipolar disorder: Stable, continue lithium and olanzapine. #5 asthma: Stable, pulse ox is maintained on room air. Plan for albuterol as needed. #6 Chronic constipation most probably irritable bowel syndrome/constipation type: On Amitza. Senna S and MiraLAX added. Tobacco abuse: NicoDerm patch if desired. #7 chronic pain syndrome: She is on OxyIR PRN, IV Dilaudid as needed, continue meloxicam. # #8 DVT prophylaxis: SCDs. Code Visit Inpatient E&M: 87132 Subs Hosp L2
[2019-07-21] MEDS: Lactated Ringers 1,000 ML 60 ML IV (08:17)
[2019-07-21] MEDS: glipiZIDE 10 MG Tablet 15 MG PO ×2 (08:19→09:43)
[2019-07-21] MEDS: Gabapentin 300 MG Capsule PO ×4 (08:19→22:29)
[2019-07-21] MEDS: metFORMIN HCl 1,000 MG Tablet 1000 MG PO ×2 (08:19→16:59)
[2019-07-21] MEDS: Spironolactone 50 MG Tablet 100 MG PO (08:20)
[2019-07-21 08:36] LABS: Hemoglobin A1c 7.1 % (4.2-6.3)
[2019-07-21 09:33] VITALS: BP 121/78; PULSE 94; RESP 16; TEMP 36.6; O2SAT 100
[2019-07-21] MEDS: proMETHazine 25 MG Tablet PO ×2 (09:43→22:29)
[2019-07-21] MEDS: tiZANidine HCl 2 MG Tablet 4 MG PO ×4 (09:43→22:29)
[2019-07-21] MEDS: DULoxetine Hcl 30 MG Capsule 90 MG PO (09:45)
[2019-07-21] MEDS: Lubiprostone 24 MCG Capsule PO ×2 (09:45→22:29)
[2019-07-21] MEDS: OLANZapine 10 MG Tablet 15 MG PO ×2 (09:46→09:48)
[2019-07-21] MEDS: Pantoprazole Sodium 20 MG Tablet PO (09:48)
[2019-07-21] MEDS: Senna/Docusate Sodium 1 Tablet 2 TABLET PO ×2 (09:59→22:29)
[2019-07-21] MEDS: Meloxicam 7.5 MG Tablet PO (09:59)
[2019-07-21] MEDS: Polyethylene Glycol 3350 17 GM PACKET PO (09:59)
[2019-07-21 11:16] LABS: Bedside Glucose 117 mg/dL (70-110)
--- NOTE | 2019-07-21 11:52 | NURSING ---
wound vac placed at this time- set at 150 per order
--- NOTE | 2019-07-21 12:06 | PCA ---
Called [facility] and let them know of woundvac placement conformation number is [id number].
[2019-07-21 14:16] VITALS: BP 144/86; PULSE 94; RESP 16; TEMP 36.8; O2SAT 98
[2019-07-21] MEDS: diazePAM 5 MG Tablet PO ×2 (14:31→22:29)
--- NOTE | 2019-07-21 15:15 | PCM.PN.SRG ---
Subjective: Postop #1 Patient complains of wound pain. Still needs IV analgesia. VAC has been applied. - Physical Exam General: Alert, Oriented x3 HEENT: PERRLA, EOMI Oral: Moist Mucosa Vital Signs Temp Pulse Resp BP Pulse Ox 98.2 F 94 16 144/86 H 98 07/21/19 14:16 07/21/19 14:16 07/21/19 14:16 07/21/19 14:16 07/21/19 14:16 Oxygen Delivery Method Room Air Weight: 233 lb 0.458 oz Body Mass Index (BMI) 38.7 Finger Stick Blood Glucose 195 Intake and Output for Last 24 Hours 07/19/19 07/20/19 07/21/19 23:59 23:59 23:59 Intake Total 2231 / 2231 2720 / 2720 Output Total 1600 / 1600 3700 / 3700 Balance 631 / 631 -980 / -980 Microbiology Past 72 Hours 07/20/19 Unknown Gram Stain - Final Tissue - Other Wound Culture - Preliminary No growth-Final to follow Laboratory Tests Past 24 Hrs 07/21/19 07/21/19 07/21/19 06:46 06:46 06:46 WBC 14.6 H RBC 3.78 L Hgb 11.8 L Hct 36.9 L MCV 97.6 MCH 31.2 MCHC 32.0 RDW Std Deviation 48.4 H RDW Coeff of Radha 13.5 Plt Count 333 MPV 9.4 Sodium 138 Potassium 4.1 Chloride 106 Carbon Dioxide 25.0 Anion Gap 7 BUN 12 Creatinine 0.91 Estim Creat Clear Calc 78.38 Est GFR (MDRD) Af Amer 91 Est GFR (MDRD) Non-Af 75 BUN/Creatinine Ratio 13.2 Glucose 205 H Hemoglobin A1c 7.1 H Calcium 8.8 Prealbumin 34.1 POC Glucose 07/21/19 07/21/19 07/20/19 11:11 06:29 21:19 POC Glucose 117 H 218 H 162 H 07/20/19 16:33 POC Glucose 296 H Medical Necessity - Tobacco Use Smoking Status: Current every day smoker Tobacco Use: Cigarettes Assessment/Plan All Active Problems (Last Updated 07/20/19 @ 15:00 by Laura Sandoval MD) Open wound of right axillary region with complication (Acute) Abscess of neck (Acute) Open wound involving head with neck, complicated (Acute) Unspecified open wound of unspecified part of head, subsequent encounter (Acute) Unspecified open wound of unspecified part of neck, subsequent encounter (Acute) Diabetes mellitus type 2, uncontrolled (Acute) Folliculitis (Acute) Abscess, scalp (Acute) Muscle spasms of neck (Acute) Cellulitis of right hand (Acute) Cat bite (Acute) Cat bite of right hand with infection (Acute) Abscess of dorsum of right hand (Acute) Necrotizing soft tissue infection (Acute) History of section (Acute) History of tonsillectomy (Acute) Cat scratch of left hand with infection (Acute) Cat scratch of right hand with infection (Acute) Cat scratch (Acute) Open wound of left axillary region (Acute) Abscess of sternal region (Acute) Open wound of chest wall, complicated (Acute) Abscess of breast (Acute) 1. Painful recurrent right axillary hidradenitis. 2. Smoker. 3. Diabetes mellitus. 4. s/ps surgical preparation right axilla with excision painful recurrent hidradenitis (117 cm2). Patient has right axillary wound pain. Needs IV analgesia. Will wean to po analgesia in preparation for discharge when the VAC is approved. Anticipate tomorrow. VAC was applied today. Patient had some pain with the application of the vac. Operative culture is negative thus far. Continue IV Ancef. Will send home on po antibiotics for a week until the culture is available. A positive culture may necessitate antibiotic modification. Prealbumin was 34.1. Encourage nutritional supplementation with protein to help the healing process. Her HgbA1c was 7.1. It needs to be less than 8 before proceeding with delayed closure with skin grafting. Anticipate 4-6 weeks. Encouraged patient to stop smoking as it may have deleterious effects on wound healing. Code Visit Inpatient E&M: 48272 Subs Hosp L1 - ICD-10 - L73.2, S41.101A, E11.9, F17.200
[2019-07-21 17:11] LABS: Bedside Glucose 184 mg/dL (70-110)
--- NOTE | 2019-07-21 17:58 | NURSING ---
informed by marybel wright RN we got wound vac approval.
[2019-07-21 20:09] VITALS: BP 129/77; PULSE 88; RESP 18; TEMP 36.5; O2SAT 96
[2019-07-21] MEDS: Atorvastatin Calcium 20 MG Tablet PO (22:29)
[2019-07-21 22:41] LABS: Bedside Glucose 165 mg/dL (70-110)
[2019-07-22] MEDS: oxyCODONE 5 MG Tablet 10 MG PO ×3 (00:18→09:09)
[2019-07-22] MEDS: Cefazolin 1 GM/50 ML BAG IV ×2 (00:20→08:20)
[2019-07-22] MEDS: Lactated Ringers 1,000 ML 60 ML IV (00:22)
[2019-07-22] MEDS: 0.9% NaCl Peripheral Flush Adult/Peds IV (02:06)
[2019-07-22] MEDS: HYDROmorphone 1 MG/ML Syringe IV ×2 (02:06→06:01)
[2019-07-22 02:10] VITALS: BP 118/80; PULSE 92; RESP 18; TEMP 37.2; O2SAT 93
[2019-07-22] MEDS: diazePAM 5 MG Tablet PO ×2 (03:11→09:09)
[2019-07-22] MEDS: Lithium Carbonate 300mg Capsule 300 MG PO ×2 (05:15→13:25)
[2019-07-22] MEDS: busPIRone 5 MG Tablet 20 MG PO ×2 (05:15→13:24)
[2019-07-22 06:25] LABS: Hematocrit 38.7 % (37-47); Hemoglobin 11.9 g/dL (12.0-15.0); Mean Corp Hgb Conc 30.7 g/dL (32-36); Mean Corpuscular Hgb 30.9 pg (27.0-32.0); Mean Corpuscular Volume 100.5 fL (81-99); Mean Platelet Vol. 9.3 fl (6.2-12.0); Platelet Count 324 K/mm3 (150-450); RBC Distribution Width CV 13.9 % (11.6-14.6); RBC Distribution Width SD 50.9 fl (35.1-43.9); Red Blood Count 3.85 M/mm3 (4.2-5.4); White Blood Count 14.5 K/mm3 (4.4-11.0)
[2019-07-22 06:40] LABS: Anion Gap 7 (5-15); BUN 16 mg/dL (7-18); BUN/Creat Ratio 15.8 RATIO (10-20); Calcium,Total 8.7 mg/dL (8.5-10.1); Chloride 106 mmol/L (98-107); Creatinine, Serum 1.01 mg/dL (0.55-1.02); EST Glomerular Filtration Rate 66 mL/min (>60); Est Glom Filt Rate - Afr Amer 80 mL/min (>60); Estimated Creatinine Clearance 70.62 ml/min; Glucose 180 mg/dL (74-106); Potassium 4.2 mmol/L (3.5-5.1); Sodium Level 140 mmol/L (136-145)
[2019-07-22 07:00] LABS: Bedside Glucose 142 mg/dL (70-110)
[2019-07-22] MEDS: Acetaminophen 500 MG Tablet PO (08:11)
[2019-07-22] MEDS: Pantoprazole Sodium 20 MG Tablet PO (08:12)
[2019-07-22] MEDS: tiZANidine HCl 2 MG Tablet 4 MG PO ×2 (08:12→13:24)
[2019-07-22] MEDS: Lubiprostone 24 MCG Capsule PO (08:13)
[2019-07-22] MEDS: Gabapentin 300 MG Capsule PO ×2 (08:13→12:02)
[2019-07-22] MEDS: Senna/Docusate Sodium 1 Tablet 2 TABLET PO (08:13)
[2019-07-22] MEDS: Polyethylene Glycol 3350 17 GM PACKET PO (08:13)
[2019-07-22] MEDS: DULoxetine Hcl 30 MG Capsule 90 MG PO (08:14)
[2019-07-22] MEDS: Meloxicam 7.5 MG Tablet PO (08:15)
[2019-07-22] MEDS: metFORMIN HCl 1,000 MG Tablet 1000 MG PO (08:15)
[2019-07-22] MEDS: Spironolactone 50 MG Tablet 100 MG PO (08:17)
[2019-07-22 08:29] VITALS: BP 125/78; PULSE 90; RESP 18; TEMP 36.3; O2SAT 98
[2019-07-22] MEDS: HYDROmorphone 2 MG TABLET PO ×2 (10:53→15:23)
[2019-07-22] MEDS: proMETHazine 25 MG Tablet PO (10:54)
[2019-07-22] MEDS: Insulin Lispro 100 UNIT/ML INSULN.PEN SC (11:48)
[2019-07-22 11:56] LABS: Bedside Glucose 169 mg/dL (70-110)
[2019-07-22] MEDS: fentaNYL 25 MCG Patch TRANSDERM. (12:02)
[2019-07-22] MEDS: Bisacodyl 10 MG Suppository RECTAL (12:02)
--- NOTE | 2019-07-22 13:02 | PCM.PN.HOSP ---
Subjective: No fever or chills. Patient did not moved bowel since Tuesday, 5 days. Vitals/I&O's: Vital Signs Temp Pulse Resp BP Pulse Ox 97.3 F L 90 18 125/78 H 98 07/22/19 08:29 07/22/19 08:29 07/22/19 08:29 07/22/19 08:29 07/22/19 08:29 Oxygen Delivery Method Room Air Weight: 233 lb 0.458 oz Body Mass Index (BMI) 38.7 Finger Stick Blood Glucose 195 Intake and Output for Last 24 Hours 07/20/19 07/21/19 07/22/19 23:59 23:59 23:59 Intake Total 2231 / 2231 4675 / 4675 928 / 928 Output Total 1600 / 1600 4450 / 4450 1325 / 1325 Balance 631 / 631 225 / 225 -397 / -397 General: Alert, Oriented x3, Cooperative HEENT: Atraumatic, PERRLA, EOMI, Normocephalic Neck: Supple, No JVD, Negative Carotid Bruits Lungs: Clear to auscultation, Normal air movement, No rhonchi, No wheeze, No rales Cardiovascular: Regular rate, Regular Rhythm, Normal S1, Normal S2, No murmurs Abdomen: Bowel Sounds Present, Soft, Non Tender Extremities: Capillary Refill Less than 3 Seconds, Tenderness - Right upper extremity. Tenderness over right axillary region. Skin: Ulcer/ Wound - Surgical excision on right axillary hidradenitis suppurativa Musculoskeletal: Arthritic Changes Neurological: Cranial nerves II-XII grossly intact Psych/Mental Status: Normal Affect, Appropriate Microbiology Past 72 Hours 07/20/19 Unknown Tissue - Other Gram Stain - Final 07/20/19 Unknown Tissue - Other Wound Culture - Preliminary No growth-Final to follow Laboratory Results 07/21/19 17:02: POC Glucose 184 H 07/21/19 22:27: POC Glucose 165 H 07/22/19 05:44: WBC 14.5 H, RBC 3.85 L, Hgb 11.9 L, Hct 38.7, MCV 100.5 H, MCH 30.9, MCHC 30.7 L, RDW Std Deviation 50.9 H, RDW Coeff of Radha 13.9, Plt Count 324, MPV 9.3 07/22/19 05:44: Sodium 140, Potassium 4.2, Chloride 106, Carbon Dioxide 27.0, Anion Gap 7, BUN 16, Creatinine 1.01, Estim Creat Clear Calc 70.62, Est GFR (MDRD) Af Amer 80, Est GFR (MDRD) Non-Af 66, BUN/Creatinine Ratio 15.8, Glucose 180 H, Calcium 8.7 07/22/19 06:56: POC Glucose 142 H 07/22/19 11:46: POC Glucose 169 H Current Medications Acetaminophen (Tylenol) 500 mg PO Q4H PRN PRN PRN Reason: PAIN Last Admin: 07/22/19 08:11 Dose: 500 mg Documented by: Albuterol Sulfate (Ventolin Aerosols) 2.5 mg INHALATION Q4H PRN PRN Reason: ALLERGIES Last Admin: 07/20/19 21:51 Dose: 2.5 mg Documented by: Atorvastatin Calcium (Lipitor) 20 mg PO QHS [facility] Last Admin: 07/21/19 22:29 Dose: 20 mg Documented by: Buspirone HCl (Buspar) 20 mg PO TID [facility] Last Admin: 07/22/19 05:15 Dose: 20 mg Documented by: Clonidine (Catapres) 0.1 mg PO DAILY PRN PRN PRN Reason: ANXIETY Last Admin: 07/21/19 03:24 Dose: 0.1 mg Documented by: Diazepam (Valium) 5 mg PO 4X/DAY PRN PRN PRN Reason: SPASMS Last Admin: 07/22/19 09:09 Dose: 5 mg Documented by: Duloxetine HCl (Cymbalta) 90 mg PO DAILY [facility] Last Admin: 07/22/19 08:14 Dose: 90 mg Documented by: Fentanyl (Duragesic Patch) 25 mcg TRANSDERM. Q3D@1000 [facility] Last Admin: 07/22/19 12:02 Dose: 25 mcg Documented by: Gabap[facility] ([facility]in) [facility] Last Admin: 07/22/19 12:02 Dose: 300 mg Documented by: Glipizide (Glucotrol) 15 mg PO DAILY@0730 [facility] Last Admin: 07/21/19 09:43 Dose: 15 mg Documented by: Hydromorphone HCl (Dilaudid Tablet) 2 - 4 mg PO Q4H PRN PRN PRN Reason: SEVERE PAIN (6-10/10) Last Admin: 07/22/19 10:53 Dose: 2 mg Documented by: Cefazolin Sodium () 1 gm in 50 mls @ 100 mls/hr IV Q8H [facility] Last Infusion: 07/22/19 08:57 Dose: Infused Documented by: Lactated Ringer's () 1,000 mls @ 60 mls/hr IV .[id number] [facility] Last Infusion: 07/22/19 08:57 Dose: 60 mls/hr Documented by: Sodium Chloride () 250 mls @ 15 mls/hr IV .[id number] PRN PRN Reason: SALINE FLUSH Insulin Glargine (Lantus ([facility])) 10 units SC QHS [facility] Last Admin: 07/21/19 22:29 Dose: 10 u Documented by: Insulin Human Lispro (Humalog Kwikpen ([facility])) 0 unit SC ACHS [facility]; Protocol Last Admin: 07/22/19 11:48 Dose: 1 u Documented by: Escondida Carbonate (Escondida Carbonate) 300 mg PO TID [facility] Last Admin: 07/22/19 05:15 Dose: 300 mg Documented by: Lubiprostone (Amitiza) 24 mcg PO BID [facility] Last Admin: 07/22/19 08:13 Dose: 24 mcg Documented by: Meloxicam (Mobic) 7.5 mg PO DAILY [facility] Last Admin: 07/22/19 08:15 Dose: 7.5 mg Documented by: Metformin HCl (Glucophage) 1,000 mg PO BIDCM [facility] Last Admin: 07/22/19 08:15 Dose: 1,000 mg Documented by: Nicotine (Nicoderm Cq ([facility])) 21 mg TRANSDERM. DAILY [facility] Last Admin: 07/22/19 08:18 Dose: 21 mg Documented by: Olanzapine (Zyprexa) 15 mg PO DAILY [facility] Last Admin: 07/21/19 09:48 Dose: 15 mg Documented by: Ondansetron HCl (Zofran) 4 mg IV Q6H PRN PRN PRN Reason: NAUSEA Last Admin: 07/21/19 16:58 Dose: 4 mg Documented by: Pantoprazole Sodium (Protonix) 20 mg PO DAILY [facility] Last Admin: 07/22/19 08:12 Dose: 20 mg Documented by: Polyethylene Glycol (Miralax) 17 gm PO DAILY [facility] Last Admin: 07/22/19 08:13 Dose: 17 gm Documented by: Promethazine HCl (Phenergan Tablet) 25 mg PO Q4H PRN PRN PRN Reason: NAUSEA/VOMITING Last Admin: 07/22/19 10:54 Dose: 25 mg Documented by: Senna/Docusate Sodium (Senokot-S, Lakisha-Colace) 2 tablet PO BID [facility] Stop: 07/23/19 10:01 Last Admin: 07/22/19 08:13 Dose: 2 tablet Documented by: Sodium Chloride () 10 - 40 ml IV UD PRN PRN Reason: SALINE FLUSH Last Admin: 07/22/19 02:06 Dose: 10 ml Documented by: Spironolactone (Aldactone) 100 mg PO DAILYCM [facility] Last Admin: 07/22/19 08:17 Dose: 100 mg Documented by: Tizanidine HCl (Zanaflex) 4 mg PO 4X/DAY [facility] Last Admin: 07/22/19 08:12 Dose: 4 mg Documented by: Medical Necessity - Tobacco Use Smoking Status: Current every day smoker Tobacco Use: Cigarettes Assessment/Plan All Active Problems (Last Updated 07/20/19 @ 15:00 by Laura Sandoval MD) Open wound of right axillary region with complication (Acute) Abscess of neck (Acute) Open wound involving head with neck, complicated (Acute) Unspecified open wound of unspecified part of head, subsequent encounter (Acute) Unspecified open wound of unspecified part of neck, subsequent encounter (Acute) Diabetes mellitus type 2, uncontrolled (Acute) Folliculitis (Acute) Abscess, scalp (Acute) Muscle spasms of neck (Acute) Cellulitis of right hand (Acute) Cat bite (Acute) Cat bite of right hand with infection (Acute) Abscess of dorsum of right hand (Acute) Necrotizing soft tissue infection (Acute) History of section (Acute) History of tonsillectomy (Acute) Cat scratch of left hand with infection (Acute) Cat scratch of right hand with infection (Acute) Cat scratch (Acute) Open wound of left axillary region (Acute) Abscess of sternal region (Acute) Open wound of chest wall, complicated (Acute) Abscess of breast (Acute) This is a 33 years old female patient admitted to the hospital after she underwent elective surgical excision for right axilla pain for recurrent hidradenitis status post excision. Patient also had hidradenitis suppurativa in left axilla for which she required excision and groin hidradenitis in the past. #1 Recurrent hidradenitis suppurativa status post right axillary excision on 07/20/2019: She is on IV cefazolin. Surgical dressing as per Dr. Boswell. Her vital signs are stable. Wound culture, preliminary shows no growth. Review of blood work shows mild leukocytosis probably surgical inflammation. #2 type 2 diabetes mellitus: Blood sugar has been under fair control, hemoglobin A1c came down to 6.8%, it was 11% on December,. Continue home doses of Lantus, continue glipizide and metformin. Accu-Chek before meals and at bedtime cover with Humalog sliding scale. #3 anxiety/depression: Stable, continue BuSpar, Cymbalta and as needed Valium. #4 bipolar disorder: Stable, continue lithium and olanzapine. #5 asthma: Stable, pulse ox is maintained on room air. Plan for albuterol as needed. #6 Chronic constipation most probably irritable bowel syndrome/constipation type: On Amitza. Senna S and MiraLAX added. Dulcolax suppository added. Tobacco abuse: NicoDerm patch if desired. #7 chronic pain syndrome: She is on OxyIR PRN, IV Dilaudid as needed, continue meloxicam. # #8 DVT prophylaxis: SCDs. Microbiology Past 72 Hours 07/20/19 Unknown Tissue - Other Gram Stain - Final 07/20/19 Unknown Tissue - Other Wound Culture - Preliminary No growth-Final to follow Laboratory Results 07/21/19 17:02: POC Glucose 184 H 07/21/19 22:27: POC Glucose 165 H 07/22/19 05:44: WBC 14.5 H, RBC 3.85 L, Hgb 11.9 L, Hct 38.7, MCV 100.5 H, MCH 30.9, MCHC 30.7 L, RDW Std Deviation 50.9 H, RDW Coeff of Radha 13.9, Plt Count 324, MPV 9.3 07/22/19 05:44: Sodium 140, Potassium 4.2, Chloride 106, Carbon Dioxide 27.0, Anion Gap 7, BUN 16, Creatinine 1.01, Estim Creat Clear Calc 70.62, Est GFR (MDRD) Af Amer 80, Est GFR (MDRD) Non-Af 66, BUN/Creatinine Ratio 15.8, Glucose 180 H, Calcium 8.7 07/22/19 06:56: POC Glucose 142 H 07/22/19 11:46: POC Glucose 169 H Active Medications Acetaminophen (Tylenol) 500 mg PO Q4H PRN PRN PRN Reason: PAIN Last Admin: 07/22/19 08:11 Dose: 500 mg Documented by: Albuterol Sulfate (Ventolin Aerosols) 2.5 mg INHALATION Q4H PRN PRN Reason: ALLERGIES Last Admin: 07/20/19 21:51 Dose: 2.5 mg Documented by: Atorvastatin Calcium (Lipitor) 20 mg PO QHS [facility] Last Admin: 07/21/19 22:29 Dose: 20 mg Documented by: Buspirone HCl (Buspar) 20 mg PO TID [facility] Last Admin: 07/22/19 05:15 Dose: 20 mg Documented by: Clonidine (Catapres) 0.1 mg PO DAILY PRN PRN PRN Reason: ANXIETY Last Admin: 07/21/19 03:24 Dose: 0.1 mg Documented by: Diazepam (Valium) 5 mg PO 4X/DAY PRN PRN PRN Reason: SPASMS Last Admin: 07/22/19 09:09 Dose: 5 mg Documented by: Duloxetine HCl (Cymbalta) 90 mg PO DAILY [facility] Last Admin: 07/22/19 08:14 Dose: 90 mg Documented by: Fentanyl (Duragesic Patch) 25 mcg TRANSDERM. Q3D@1000 [facility] Last Admin: 07/22/19 12:02 Dose: 25 mcg Documented by: [facility] ([facility]) [facility] Last Admin: 07/22/19 12:02 Dose: 300 mg Documented by: Glipizide (Glucotrol) 15 mg PO DAILY@0730 [facility] Last Admin: 07/21/19 09:43 Dose: 15 mg Documented by: Hydromorphone HCl (Dilaudid Tablet) 2 - 4 mg PO Q4H PRN PRN PRN Reason: SEVERE PAIN (6-10/10) Last Admin: 07/22/19 10:53 Dose: 2 mg Documented by: Cefazolin Sodium () 1 gm in 50 mls @ 100 mls/hr IV Q8H [facility] Last Infusion: 07/22/19 08:57 Dose: Infused Documented by: Lactated Ringer's () 1,000 mls @ 60 mls/hr IV .[id number] [facility] Last Infusion: 07/22/19 08:57 Dose: 60 mls/hr Documented by: Sodium Chloride () 250 mls @ 15 mls/hr IV .[id number] PRN PRN Reason: SALINE FLUSH Insulin Glargine (Lantus ([facility])) 10 units SC QHS [facility] Last Admin: 07/21/19 22:29 Dose: 10 u Documented by: Insulin Human Lispro (Humalog Kwikpen ([facility])) 0 unit SC ACHS [facility]; Protocol Last Admin: 07/22/19 11:48 Dose: 1 u Documented by: Escondida Carbonate (Escondida Carbonate) 300 mg PO TID [facility] Last Admin: 07/22/19 05:15 Dose: 300 mg Documented by: Lubiprostone (Amitiza) 24 mcg PO BID [facility] Last Admin: 07/22/19 08:13 Dose: 24 mcg Documented by: Meloxicam (Mobic) 7.5 mg PO DAILY [facility] Last Admin: 07/22/19 08:15 Dose: 7.5 mg Documented by: Metformin HCl (Glucophage) 1,000 mg PO BIDCM [facility] Last Admin: 07/22/19 08:15 Dose: 1,000 mg Documented by: Nicotine (Nicoderm Cq ([facility])) 21 mg TRANSDERM. DAILY [facility] Last Admin: 07/22/19 08:18 Dose: 21 mg Documented by: Olanzapine (Zyprexa) 15 mg PO DAILY [facility] Last Admin: 07/21/19 09:48 Dose: 15 mg Documented by: Ondansetron HCl (Zofran) 4 mg IV Q6H PRN PRN PRN Reason: NAUSEA Last Admin: 07/21/19 16:58 Dose: 4 mg Documented by: Pantoprazole Sodium (Protonix) 20 mg PO DAILY [facility] Last Admin: 07/22/19 08:12 Dose: 20 mg Documented by: Polyethylene Glycol (Miralax) 17 gm PO DAILY [facility] Last Admin: 07/22/19 08:13 Dose: 17 gm Documented by: Promethazine HCl (Phenergan Tablet) 25 mg PO Q4H PRN PRN PRN Reason: NAUSEA/VOMITING Last Admin: 07/22/19 10:54 Dose: 25 mg Documented by: Senna/Docusate Sodium (Senokot-S, Lakisha-Colace) 2 tablet PO BID [facility] Stop: 07/23/19 10:01 Last Admin: 07/22/19 08:13 Dose: 2 tablet Documented by: Sodium Chloride () 10 - 40 ml IV UD PRN PRN Reason: SALINE FLUSH Last Admin: 07/22/19 02:06 Dose: 10 ml Documented by: [facility] Last Admin: 07/22/19 08:17 Dose: 100 mg Documented by: Tizanidine HCl (Zanaflex) 4 mg PO 4X/DAY [facility] Last Admin: 07/22/19 08:12 Dose: 4 mg Documented by: Code Visit Inpatient E&M: 97156 Subs Hosp L2
--- NOTE | 2019-07-22 13:43 | PCM.PN.SRG ---
Subjective: Postop #2 Patient is resting comfortably. Tolerating the patch. - Physical Exam General: Alert, Oriented x3 HEENT: PERRLA, EOMI Oral: Moist Mucosa Neck: Supple Lungs: Clear to auscultation Cardiovascular: Regular rate, Regular Rhythm Abdomen: Soft, Non-Distended Skin: Ulcer/ Wound - right axillary wound is stable. VAC in place. Minimal drainage in the canister. Neurological: Cranial nerves II-XII grossly intact Psych/Mental Status: Normal Affect, Appropriate Vital Signs Temp Pulse Resp BP Pulse Ox 97.3 F L 90 18 125/78 H 98 07/22/19 08:29 07/22/19 08:29 07/22/19 08:29 07/22/19 08:29 07/22/19 08:29 Oxygen Delivery Method Room Air Weight: 233 lb 0.458 oz Body Mass Index (BMI) 38.7 Finger Stick Blood Glucose 195 Intake and Output for Last 24 Hours 07/20/19 07/21/19 07/22/19 23:59 23:59 23:59 Intake Total 2231 / 2231 4675 / 4675 928 / 928 Output Total 1600 / 1600 4450 / 4450 1325 / 1325 Balance 631 / 631 225 / 225 -397 / -397 Microbiology Past 72 Hours 07/20/19 Unknown Gram Stain - Final Tissue - Other Wound Culture - Preliminary No growth-Final to follow Laboratory Tests Past 24 Hrs 07/22/19 07/22/19 05:44 05:44 WBC 14.5 H RBC 3.85 L Hgb 11.9 L Hct 38.7 MCV 100.5 H MCH 30.9 MCHC 30.7 L RDW Std Deviation 50.9 H RDW Coeff of Radha 13.9 Plt Count 324 MPV 9.3 Sodium 140 Potassium 4.2 Chloride 106 Carbon Dioxide 27.0 Anion Gap 7 BUN 16 Creatinine 1.01 Estim Creat Clear Calc 70.62 Est GFR (MDRD) Af Amer 80 Est GFR (MDRD) Non-Af 66 BUN/Creatinine Ratio 15.8 Glucose 180 H Calcium 8.7 POC Glucose 07/22/19 07/22/19 07/21/19 11:46 06:56 22:27 POC Glucose 169 H 142 H 165 H 07/21/19 17:02 POC Glucose 184 H Medical Necessity - Tobacco Use Smoking Status: Current every day smoker Tobacco Use: Cigarettes Assessment/Plan All Active Problems (Last Updated 07/20/19 @ 15:00 by Laura Sandoval MD) Open wound of right axillary region with complication (Acute) Abscess of neck (Acute) Open wound involving head with neck, complicated (Acute) Unspecified open wound of unspecified part of head, subsequent encounter (Acute) Unspecified open wound of unspecified part of neck, subsequent encounter (Acute) Diabetes mellitus type 2, uncontrolled (Acute) Folliculitis (Acute) Abscess, scalp (Acute) Muscle spasms of neck (Acute) Cellulitis of right hand (Acute) Cat bite (Acute) Cat bite of right hand with infection (Acute) Abscess of dorsum of right hand (Acute) Necrotizing soft tissue infection (Acute) History of section (Acute) History of tonsillectomy (Acute) Cat scratch of left hand with infection (Acute) Cat scratch of right hand with infection (Acute) Cat scratch (Acute) Open wound of left axillary region (Acute) Abscess of sternal region (Acute) Open wound of chest wall, complicated (Acute) Abscess of breast (Acute) 1. Painful recurrent right axillary hidradenitis. 2. Smoker. 3. Diabetes mellitus. 4. s/p surgical preparation right axilla with excision painful recurrent hidradenitis (117 cm2). 5. Open surgical hidradenitis wound right axilla. Patient has right axillary wound pain. She is tolerating po analgesia. VAC in place. Minimal drainage in the canister. VAC has been approved. Operative culture is negative thus far. Will continue po antibiotics at home. She has Doxycycline at home. A positive culture may necessitate antibiotic modification. Prealbumin was 34.1. Encourage nutritional supplementation with protein to help the healing process. Her HgbA1c was 7.1. It needs to be less than 8 before proceeding with delayed closure with skin grafting. Anticipate 4-6 weeks. Discharge home today. [facility]. Home Health will assist with the VAC three times per week at 150 mmHg continuous suction. Wrote scripts for Dilaudid for pain (50 tabs) and for Valium for spasm (30 tabs) and for Duragesic Patch for pain, 25 mcg, (5 patches). Wrote scripts for Phenergan for nausea (30 tabs) with a refill and for Colace for constipation (60 tabs). Encouraged patient to stop smoking as it may have deleterious effects on wound healing.
--- NOTE | 2019-07-22 14:06 | DCINST_ITS ---
You will use the following diet at home:: Calorie/Carbohydrate Controlled (specify 1200, 1400, etc), Other - encourage nutritional supplementation with protein to help the healing process Discharge Activity: May Shower - on the days the vac is changed, - - keep right arm elevated. no heavy lifting right hand. May shower in (days): 2 - on the days the vac is changed. May resume sexual activity in: No Restrictions Weight Bearing Status: Weight bearing as tolerated Lifting Restrictions: 20 lbs. Keep extremity elevated above heart level: Right Arm Additional Activity Instructions:: Home Health to assist with vac changes three times per week at 150 mmHg continuous suction. May cleanse the wound with soap and water at the time of the vac change. Call your doctor if your incision/area has: Continuous Slow Oozing, Sudden Increased Bleeding, Increased Pain/ Swelling, Increased Redness, Foul Smelling Discharge, Swelling at the incision site Call your doctor if you observe: Fever of 101 or Higher, Coldness, Increased Pain, Shortness of breath, Chest pain, Calf discomfort, Uncontrolled pain Suture Line Care: - - vac changes three times per week at 150 mmHg continuous suction. Change Dressing in (Days):: 2 - vac changes three times per week. Cleanse incision/area with: Soap & Water - may cleanse the wound with soap and water at the time of the vac dressing change., - - may shower on the days the vac is changed. Additional Instructions: Patient has Doxycycline at home that she will continue for 2 weeks. Allergies/Adverse Reactions: Allergies lamotrigine [From Lamictal] Allergy (Mild, Verified 07/20/19 08:00) Rash adhesive tape Allergy (Verified 07/20/19 08:00) Rash Medications to take at Discharge Clonidine HCl [Catapres] 0.1 mg PO DAILY PRN PRN 01/18/14 Duloxetine Hcl [Cymbalta] 60 mg PO DAILY 01/18/14 Tizanidine HCl [Zanaflex] 4 mg PO 4X/DAY 01/18/14 glipiZIDE [Glucotrol] 15 mg PO DAILY@0730 01/18/14 metFORMIN HCl [Glucophage] 1,000 mg PO BIDCM 01/18/14 Meloxicam [Mobic] 7.5 mg PO DAILY 01/14/16 Spironolactone [Aldactone] 100 mg PO DAILY 01/14/16 [place] Carbonate [[place] Carbonate ER] 300 mg PO TID 05/10/16 gabapentin 300 mg capsule 300 mg PO 4X/DAY cap 12/01/17 Lubiprostone [Amitiza] 24 mcg PO BID 01/16/18 Omeprazole [Prilosec] 20 mg PO DAILY 01/16/18 insulin aspart U-100 100 unit/mL subcutaneous solution See Protocol SC TIDCM ml 02/14/18 Atorvastatin Calcium 20 mg PO QHS 06/21/18 Albuterol Sulfate [Ventolin Hfa] 1 - 2 inhaler INHALATION 4X/DAY PRN PRN 06/30/18 Buspirone HCl 20 mg PO TID 06/30/18 Duloxetine Hcl [Cymbalta] 30 mg PO DAILY 06/30/18 olanzapine 15 mg tablet 15 mg PO DAILY 03/28/19 doxycycline monohydrate 100 mg tablet 100 mg PO BID 30 Days #60 tab 07/04/19 Insulin Glargine [Lantus SoloStar Pen] 10 units SUBCUT QHS 07/13/19 Diazepam [Valium] 5 mg PO 4X/DAY PRN PRN #30 tab 07/22/19 Docusate Sodium [Colace] 100 mg PO BID #60 cap 07/22/19 HYDROmorphone tablet [Dilaudid] 2 - 4 mg PO 4X/DAY PRN PRN 7 Days #50 tab 07/22/19 Insulin Lispro [Humalog KwikPen] See Protocol SUBCUT ACHS insuln.pen 07/22/19 [place] Carbonate 300 mg PO TID cap 07/22/19 Polyethylene Glycol 3350 [Miralax] 17 gm PO DAILY packet 07/22/19 Senna/Docusate Sodium [Senokot-S] 2 tab PO BID tab 07/22/19 fentaNYL patch [Duragesic patch] 25 mcg TRANSDERM. Q72H #5 patch 07/22/19 proMETHazine tablet [Phenergan tablet] 25 mg PO 4X/DAY PRN PRN #30 tab 07/22/19 The following prescriptions were given: Docusate Sodium [Colace] 100 mg PO BID #60 cap Prescription Printed HYDROmorphone tablet [Dilaudid] 2 - 4 mg PO 4X/DAY PRN PRN 7 Days #50 tab PRN Reason: Severe Pain (-08/30) Prescription Printed fentaNYL patch [Duragesic patch] 25 mcg TRANSDERM. Q72H #5 patch Prescription Printed proMETHazine tablet [Phenergan tablet] 25 mg PO 4X/DAY PRN PRN #30 tab PRN Reason: NAUSEA/VOMITING Prescription Printed Diazepam [Valium] 5 mg PO 4X/DAY PRN PRN #30 tab PRN Reason: Spasms Prescription Printed Primary Care Physician: Aj Staley MD [Primary Care Provider] - Test Results: Test results from this visit will be discussed in further detail at your follow- up appointment, if applicable. Please Follow Up With: Phoenix Boswell MD When: one week at wound center. call [phone] for appt. Proposed Discharge Date: 07/22/19
[2019-07-22 15:11] VITALS: BP 131/87; PULSE 95; RESP 18; TEMP 36.7; O2SAT 98
== END 2019-07-22 15:28 | disposition home health service (06) ==
LOC: SDC 10:18 → MS3 10:18
PROVIDERS: Obstetrics & Gynecology; Admitting Provider Surgery; Family Provider Family Medicine; PCP Family Medicine; Referring Provider Surgery; Visit Provider Surgery
PROC: (CPT 15002; principal; 2019-07-20 09:05)
DX: L73.2 Hidradenitis suppurativa (principal); E66.01 Morbid (severe) obesity due to excess calories; M19.90 Unspecified osteoarthritis, unspecified site; F31.89 Other bipolar disorder; K21.9 Gastro-esophageal reflux disease without esophagitis; E78.5 Hyperlipidemia, unspecified; E11.40 Type 2 diabetes mellitus with diabetic neuropathy, unspecified; I10 Essential (primary) hypertension; F41.9 Anxiety disorder, unspecified; Z68.38 Body mass index [BMI] 38.0-38.9, adult; Z71.3 Dietary counseling and surveillance; Z79.899 Other long term (current) drug therapy; Z79.4 Long term (current) use of insulin; F17.210 Nicotine dependence, cigarettes, uncomplicated; G89.4 Chronic pain syndrome; J45.909 Unspecified asthma, uncomplicated; K59.09 Other constipation
CPT/HCPCS: 00400; 15002; 15003; 36415; 80048; 81025; 82962; 83036; 84134; 85027; 87070; 87075; 87102; 87176; 87205; 87206; 88304; 88305; 94640; 94762; 96365; 96366; 96375; 96376; 99218; 99406; J7120; A4216; G0378; G0379; J2405

== ENCOUNTER 2019-08-20 08:00 | Outpatient (RCR) | payer MEDICARE, SELFPAY ==
[2019-07-20 11:53] VITALS: BMI 38.7
[2019-07-30 08:31] VITALS: BMI 38.2
--- NOTE | 2019-07-30 22:23 | PN.PCM_ITS ---
Type of Wound Date of Service: 07/30/19 Chief Complaint: Open surgical recurrent hidradenitis wound right axilla. History of Wound: Surgery 07/20/19 - Surgical preparation right axilla with excision painful recurrent hidradenitis (117 cm2). Wound care - VAC. Operative culture - negative. She was treated perioperatively with Doxycycline. Prealbumin from 07/21/19 was 34.1. Encourage nutritional supplementation with protein to help the healing process. HgbA1c from 07/21/19 was 7.1. In order to proceed with elective skin grafting, the HgbA1c needs to be less than 8. Today she denies fever. Her appetite is good. Progress of Wound: Improved. - Physical Exam General: Alert, Oriented x3 HEENT: PERRLA, EOMI Oral: Moist Mucosa Neck: Supple Lungs: Clear to auscultation Cardiovascular: Regular rate, Regular Rhythm Abdomen: Soft, Non-Distended Extremities: Peripheral Pulses Normal Skin: Ulcer/ Wound - right axillary hidradenitis wound. Stable. No active bleeding seen. Recent surgical excision on 07/20/19. Wound Measurements and Assessment WC - Nurse 1 - General Ulcer Measurement Start: 07/30/19 08:18 Freq: Status: Active Protocol: Activity Type Activity Date Activity User E-Sign Co-Sign Detail Recorded Client Recorded Date Recorded By Document 07/30/19 08:31 [id number] 07/30/19 08:55 AN 07/30/19 08:31 Wound Center Nurse 1 [Ulcer Assessment] #8 right axilla hidradenitis -Combined with other wound No -Current Size (cm) - Length 3.7 -Current Size (cm) - Width 12.0 -Current Size (cm) - Depth 3.0 -Total Square Cm 44.40 -Date of Last Picture (Recall this 07/30/19 field) -Photo Taken Yes -Epithelialization None Present -Tunneling No -Undermining/Tunneling No -Circular Undermining No -Classification - Thickness Full Thickness with Exposed Support Structure -Exudate Amt Large -Exudate Type Serosanguineous -Wound Margin Distinct, Outline Attached -Granulation Amt Medium (34-66%) -Granulation Quality Red -Slough/Fibrin Yes -Necrosis Amt Medium (34-66%) -Necrotic Tissue Type Adherent Slough -Structure Exposed Fascia,Fat Layer Exposed -Texture (Lakisha-wound Skin Appearance) Assessed, Localized Edema ,Scarring -Moisture (Lakisha-wound Skin Appearance Assessed ) -Color (Lakisha-wound Skin Appearance) Assessed -Temperature (Lakisha-wound Skin No Abnormality Appearance) (Pt Warm) -Tenderness on Palpation (Lakisha-wound Yes Skin Appearance) -Ulcer Cleansing Rinsed/ Irrigated with Saline -Foul Odor after Cleansing No -Anesthetic Used 5% Lidocaine Gel - Nurse 2 - General Ulcer CM Notes Start: 07/30/19 08:18 Freq: Status: Active Protocol: Activity Type Activity Date Activity User E-Sign Co-Sign Detail Recorded Client Recorded Date Recorded By Document 07/30/19 09:16 [id number] [id number] 07/30/19 09:16 07/30/19 09:16 Wound Center Nurse 2 [Procedure/Treatment] -Correct Patient No -Correct Side, Site, Position No -Correct Procedure No -Procedure Performed No -Wound/Ulcer Outcome Not Healed [See Physician Procedure note for Specifics] Pain Scale: 0-10 Numeric [Pain] -Is Patient Pain Free? Yes Neurological: Cranial nerves II-XII grossly intact Psych/Mental Status: Normal Affect, Appropriate Debridement Note Post-Debridement Measurements/Treatment - Nurse 2 - General Ulcer Notes Start: 07/30/19 08:18 Freq: Status: Active Protocol: Activity Type Activity Date Activity User E-Sign Co-Sign Detail Recorded Client Recorded Date Recorded By Document 07/30/19 09:16 JF [id number] 07/30/19 09:16 07/30/19 09:16 Wound Center Nurse 2 #8 right axilla hidradenitis -Correct Patient No -Correct Side, Site, Position No -Correct Procedure No -Procedure Performed No -Wound/Ulcer Outcome Not Healed Pain Scale: 0-10 Numeric Is Patient Pain Free? Yes Wound debrided: #8 Right axilla. Laterality: Right Wound Grade/Stage: 2. No debridement was completed today - patient had recent surgical excision on 07/20/19. Assessment/Plan Assessment: 1. Painful recurrent right axillary hidradenitis. 2. Open surgical recurrent hidradenitis wound right axilla. 3. Smoker. 4. Diabetes mellitus. 5. s/p surgical preparation right axilla with excision painful recurrent hidradenitis (117 cm2). Plan: Continue the VAC. Operative culture was negative. She was treated perioperatively with Doxycycline. That can be stopped. Her right shoulder is a little stiff. Encourage range of motion exercises to minimize stiffness. If it is a persistent problem, will set her up with OT for range of motion exercises. her Prealbumin from 07/21/19 was 34.1. Encourage nutritional supplementation with protein to help the healing process. her HgbA1c from 07/21/19 was 7.1. For any elective skin graft surgery, the HgbA1c needs to be less than 8. The patient is interested in delayed wound closure with skin grafting because she had one placed under the left axilla in the past. She states it is easier to maintain range of motion exercises with a skin graft. W ill consider the skin graft next month after more healing has occurred in the right axilla. She filled her Valium script yesterday for spasm (30 tabs). She will have her Dilaudid script filled today for pain (50 tabs). Followup one week.
[2019-08-06 10:41] VITALS: BP 121/72; PULSE 93; RESP 16; TEMP 36.5; BMI 38.2
--- NOTE | 2019-08-06 14:11 | PN.PCM_ITS ---
(1) Open wound of right axillary region with complication Status: Acute Code(s): S41.101A - Unspecified open wound of right upper arm, initial encounter (2) Hidradenitis suppurativa Status: Chronic Code(s): L73.2 - Hidradenitis suppurativa Comment: Painful recurrent right axillary hidradenitis 6 mm hidradenitis right posterior earlobe 4 cm recurrent hidradenitis posterior neck and occipital scalp (3) Diabetes Status: Chronic Code(s): E11.9 - Type 2 diabetes mellitus without complications Comment: type 2 Dx : 2013 Last exacerbation : DKA : never Hypoglycemic episode : never ER visit : 01/08 - 500+ (4) Smoker Status: Chronic Code(s): F17.200 - Nicotine dependence, unspecified, uncomplicated Comment: F17.200 Type of Wound Date of Service: 08/06/19 Chief Complaint: Nonhealing hidradenitis ulcer posterior neck/occipital scalp. History of Wound: On 07/20/19 she underwent surgical prepartion of right axilla with excision of painful recurrent hidradenitis (117 cm2). Wound care - She stopped the wound VAC yesterday due to pain. Will take a wound VAC holiday this week. Will do daily silver dressing changes. Operative culture - Wound cultures were negative for bacteria growth. She takes nutritional supplementation with protein to help the healing process. Her HgbA1c from 07/21/19 was 7.1 and Prealbumin 34.1 Today she denies fever. Her appetite is good. Progress of Wound: Stable - Physical Exam Vital Signs Temp Pulse Resp BP 97.7 F L 93 16 121/72 H 08/06/19 10:41 08/06/19 10:41 08/06/19 10:41 08/06/19 10:41 General: Alert, Oriented x3, Cooperative HEENT: Atraumatic Oral: Moist Mucosa Lungs: Normal air movement Cardiovascular: Regular rate Abdomen: Soft Extremities: No edema, Peripheral Pulses Normal Skin: Ulcer/ Wound - Right axilla surgical wound Wound Measurements and Assessment WC - Nurse 1 - General Ulcer Measurement Start: 07/30/19 08:18 Freq: Status: Active Protocol: Activity Type Activity Date Activity User E-Sign Co-Sign Detail Recorded Client Recorded Date Recorded By Document 08/06/19 10:41 [facility] [id number] 08/06/19 10:47 BMF 08/06/19 10:41 Wound Center Nurse 1 [Ulcer Assessment] #8 right axilla hidradenitis -Combined with other wound No -Current Size (cm) - Length 6 -Current Size (cm) - Width 11.1 -Current Size (cm) - Depth 2 -Total Square Cm 66.6 -Photo Taken No -Epithelialization None Present -Tunneling No -Undermining/Tunneling No -Circular Undermining No -Exudate Amt Medium -Exudate Type Serosanguineous -Wound Margin Distinct, Outline Attached -Granulation Amt Large (67-100%) -Granulation Quality Pale,Red -Slough/Fibrin Yes -Necrosis Amt Small (1-33%) -Necrotic Tissue Type Adherent Slough -Texture (Lakisha-wound Skin Appearance) Assessed, Scarring -Moisture (Lakisha-wound Skin Appearance Assessed ) -Color (Lakisha-wound Skin Appearance) Assessed -Temperature (Lakisha-wound Skin No Abnormality Appearance) (Pt Warm) -Tenderness on Palpation (Lakisha-wound No Skin Appearance) -Ulcer Cleansing Rinsed/ Irrigated with Saline -Foul Odor after Cleansing No -Anesthetic Used 4% Lidocaine Solution WC - Nurse 2 - General Ulcer CM Notes Start: 07/30/19 08:18 Freq: Status: Active Protocol: Activity Type Activity Date Activity User E-Sign Co-Sign Detail Recorded Client Recorded Date Recorded By Document 08/06/19 11:40 [email or web address] [id number] 08/06/19 11:42 [id number] 08/06/19 11:40 Wound Center Nurse 2 [Procedure/Treatment] -Time 11:41 -Correct Patient Yes -Correct Side, Site, Position Yes -Correct Procedure Yes -Procedure Performed Yes -Type of Procedure Debridement -Clinical Debridement Subcutaneous -Post Debridement Size (cm) - Length 4.5 -Post Debridement Size (cm) - Width 11 -Post Debridement Size (cm) - Depth 1.2 -Total Square Cm 49.5 -Wound/Ulcer Outcome Not Healed -Ulcer Cleansing Rinsed/ Irrigated with Saline -Foul Odor after Cleansing No -Bioengineered Tissue No -Bleeding Controlled with Pressure -Offloading No -Treatment Response Procedure Tolerated Well [See Physician Procedure note for Specifics] Pain Scale: 0-10 Numeric [Pain] -Is Patient Pain Free? Yes Musculoskeletal: No Tenderness to Palpation of Joints or Extremities Neurological: Neuro grossly intact Psych/Mental Status: Normal Affect, Appropriate Debridement Note Post-Debridement Measurements/Treatment - Nurse 2 - General Ulcer CM Notes Start: 07/30/19 08:18 Freq: Status: Active Protocol: Activity Type Activity Date Activity User E-Sign Co-Sign Detail Recorded Client Recorded Date Recorded By Document 07/30/19 09:16 [id number] 07/30/19 09:16 Document 08/06/19 11:40 [id number] 08/06/19 11:42 07/30/19 08/06/19 09:16 11:40 Wound Center Nurse 2 #8 right axilla hidradenitis -Time 11:41 -Correct Patient No Yes -Correct Side, Site, Position No Yes -Correct Procedure No Yes -Procedure Performed No Yes -Type of Procedure Debridement -Clinical Debridement Subcutaneous -Post Debridement Size (cm) - Length 4.5 -Post Debridement Size (cm) - Width 11 -Post Debridement Size (cm) - Depth 1.2 -Total Square Cm 49.5 -Wound/Ulcer Outcome Not Healed Not Healed -Ulcer Cleansing Rinsed/ Irrigated with Saline -Foul Odor after Cleansing No -Bioengineered Tissue No -Bleeding Controlled with Pressure -Offloading No -Treatment Response Procedure Tolerated Well Pain Scale: 0-10 Numeric Is Patient Pain Free? Yes Yes Wound debrided: Right axilla wound Laterality: Right Type of Debridement: Excisional debridement Anesthesia Used: 4% Lidocaine Solution, 5% Lidocaine Gel Depth: Down to and including healthy tissue, in the subcutaneous layer Percentage of wound debrided: 100 Instrument Used: 7mm curette Tissue Removed: Subcutaneous tissue and slough Severity: Fat Layer Exposed Amount of bleeding with debridement: Mild Bleeding Controlled with: Pressure, Compression and gauze Patient tolerated procedure well Assessment/Plan Assessment: 1. Opened wound right axilla with complication. 2. Hidradentitis suppurativa. 3. Diabetes. 4. Smoker Plan: On 07/20/19 she underwent surgical prepartion of right axilla with excision of painful recurrent hidradenitis (117 cm2). Wound care - She stopped the wound VAC yesterday due to pain. Will take a wound VAC holiday this week. Will do daily silver dressing changes. Operative culture - Wound cultures were negative for bacteria growth. She takes nutritional supplementation with protein to help the healing process. Her HgbA1c from 07/21/19 was 7.1 and Prealbumin 34.1. She is complaining of pain and is almost out of her pain meds. Prescribed Percocet (50). OARRS report reviewed. Encouraged patient to stop smoking as it can impede wound healing. Follow up in one week. Code Visit [id number]: [id number] Georgie subq tissue 20 sq cm/< Add On Codes: 76874 Georgie subq tissue add-on - x2
[2019-08-13 13:10] VITALS: BP 106/64; TEMP 37.1; BMI 38.2
--- NOTE | 2019-08-13 23:13 | PCM.WC.PN ---
Type of Wound Date of Service: 08/13/19 Chief Complaint: Open surgical recurrent hidradenitis wound right axilla. History of Wound: Surgery 07/20/19 - Surgical preparation right axilla with excision painful recurrent hidradenitis (117 cm2). Wound care - Silver. She is on a VAC holiday. Operative culture - negative. She was treated perioperatively with Doxycycline. Prealbumin from 07/21/19 was 34.1. Encourage nutritional supplementation with protein to help the healing process. HgbA1c from 07/21/19 was 7.1. In order to proceed with elective skin grafting, the HgbA1c needs to be less than 8. Today she denies fever. Her appetite is good. Progress of Wound: Improved. - Physical Exam Vital Signs Temp Pulse Resp BP 98.7 F 93 16 106/64 08/13/19 13:10 08/06/19 10:41 08/06/19 10:41 08/13/19 13:10 Wound Measurements and Assessment WC - Nurse 1 - General Ulcer Measurement Start: 07/30/19 08:18 Freq: Status: Active Protocol: Activity Type Activity Date Activity User E-Sign Co-Sign Detail Recorded Client Recorded Date Recorded By Document 08/13/19 13:10 MW [id number] 08/13/19 13:24 MW 08/13/19 13:10 Wound Center Nurse 1 [Ulcer Assessment] #8 right axilla hidradenitis -Combined with other wound No -Current Size (cm) - Length 3.5 -Current Size (cm) - Width 10.5 -Current Size (cm) - Depth 0.1 -Total Square Cm 36.75 -Photo Taken No -Epithelialization Small 1-33% -Tunneling No -Undermining/Tunneling No -Circular Undermining No -Exudate Amt Large -Exudate Type Serosanguineous -Wound Margin Flat & Intact -Granulation Amt Large (67-100%) -Granulation Quality Red -Slough/Fibrin Yes -Necrosis Amt Small (1-33%) -Necrotic Tissue Type Adherent Slough -Structure Exposed N/A -Texture (Lakisha-wound Skin Appearance) Assessed, Scarring -Moisture (Lakisha-wound Skin Appearance No Abnormality, ) Assessed -Color (Lakisha-wound Skin Appearance) No Abnormality, Assessed -Temperature (Lakisha-wound Skin No Abnormality Appearance) (Pt Warm) -Tenderness on Palpation (Lakisha-wound No Skin Appearance) -Ulcer Cleansing soap and water -Foul Odor after Cleansing No -Anesthetic Used 4% Lidocaine Solution,5% Lidocaine Gel [Edema Assessment] -Lower Limb Edema Present No WC - Nurse 2 - General Ulcer CM Notes Start: 07/30/19 08:18 Freq: Status: Active Protocol: Activity Type Activity Date Activity User E-Sign Co-Sign Detail Recorded Client Recorded Date Recorded By Document 08/13/19 13:31 [id number] 08/13/19 13:32 08/13/19 13:31 Wound Center Nurse 2 [Procedure/Treatment] #8 right axilla hidradenitis -Time 13:31 -Correct Patient Yes -Correct Side, Site, Position Yes -Correct Procedure Yes -Procedure Performed Yes -Type of Procedure Debridement -Clinical Debridement Subcutaneous -Post Debridement Size (cm) - Length 3.6 -Post Debridement Size (cm) - Width 10.6 -Post Debridement Size (cm) - Depth 0.1 -Total Square Cm 38.16 -Wound/Ulcer Outcome Not Healed -Ulcer Cleansing Rinsed/ Irrigated with Saline -Foul Odor after Cleansing No -Bioengineered Tissue No -Bleeding Controlled with Pressure -Offloading No -Treatment Response Procedure Tolerated Well [See Physician Procedure note for Specifics] Pain Scale: 0-10 Numeric [Pain] -Is Patient Pain Free? Yes Debridement Note Post-Debridement Measurements/Treatment - Nurse 2 - General Ulcer CM Notes Start: 07/30/19 08:18 Freq: Status: Active Protocol: Activity Type Activity Date Activity User E-Sign Co-Sign Detail Recorded Client Recorded Date Recorded By Document 07/30/19 09:16 [id number] 07/30/19 09:16 Document 08/06/19 11:40 [id number] 08/06/19 11:42 Document 08/13/19 13:31 [id number] 08/13/19 13:32 07/30/19 08/06/19 08/13/19 09:16 11:40 13:31 Wound Center Nurse 2 #8 right axilla hidradenitis -Time 11:41 13:31 -Correct Patient No Yes Yes -Correct Side, Site, Position No Yes Yes -Correct Procedure No Yes Yes -Procedure Performed No Yes Yes -Type of Procedure Debridement Debridement -Clinical Debridement Subcutaneous Subcutaneous -Post Debridement Size (cm) - Length 4.5 3.6 -Post Debridement Size (cm) - Width 11 10.6 -Post Debridement Size (cm) - Depth 1.2 0.1 -Total Square Cm 49.5 38.16 -Wound/Ulcer Outcome Not Healed Not Healed Not Healed -Ulcer Cleansing Rinsed/ Rinsed/ Irrigated with Irrigated with Saline Saline -Foul Odor after Cleansing No No -Bioengineered Tissue No No -Bleeding Controlled with Pressure Pressure -Offloading No No -Treatment Response Procedure Procedure Tolerated Well Tolerated Well Pain Scale: 0-10 Numeric Is Patient Pain Free? Yes Yes Yes Wound debrided: #8 Right axilla. Laterality: Right Wound Grade/Stage: 2. Type of Debridement: Excisional debridement Anesthesia Used: 4% Lidocaine Solution Depth: Down to and including healthy tissue, in the subcutaneous layer Percentage of wound debrided: 100 Instrument Used: 5mm curette Tissue Removed: subcutaneous tissue. Severity: Fat Layer Exposed Amount of bleeding with debridement: Mild Bleeding Controlled with: Pressure Patient tolerated procedure well Assessment/Plan Assessment: 1. Painful recurrent right axillary hidradenitis. 2. Open surgical recurrent hidradenitis wound right axilla. 3. Smoker. 4. Diabetes mellitus. 5. s/p surgical preparation right axilla with excision painful recurrent hidradenitis (117 cm2). Plan: Continue Silver dressing changes daily. Will stop the VAC since it was on a VAC holiday. Operative culture was negative. She was treated perioperatively with Doxycycline. That can be stopped. Her right shoulder is a little stiff but has improved with range of motion exercises. Encourage range of motion exercises to minimize stiffness. If it is a persistent problem, will set her up with OT for range of motion exercises. her Prealbumin from 07/21/19 was 34.1. Encourage nutritional supplementation with protein to help the healing process. her HgbA1c from 07/21/19 was 7.1. For any elective skin graft surgery, the HgbA1c needs to be less than 8. The patient is interested in delayed wound closure with skin grafting because she had one placed under the left axilla in the past. She states it is easier to maintain range of motion exercises with a skin graft. Will consider the skin graft next month after more healing has occurred in the right axilla. Renewed her Percocet for pain (30 tabs). Followup one week.
[2019-08-20 08:13] VITALS: BMI 38.2
--- NOTE | 2019-08-20 22:04 | PCM.WC.PN ---
(1) Open wound of right axillary region with complication Status: Acute Code(s): S41.101A - Unspecified open wound of right upper arm, initial encounter (2) Hidradenitis suppurativa Status: Chronic Code(s): L73.2 - Hidradenitis suppurativa Comment: Painful recurrent right axillary hidradenitis 6 mm hidradenitis right posterior earlobe 4 cm recurrent hidradenitis posterior neck and occipital scalp (3) Diabetes Status: Chronic Code(s): E11.9 - Type 2 diabetes mellitus without complications Comment: type 2 Dx : 2012 Last exacerbation : DKA : never Hypoglycemic episode : never ER visit : 01/08 - 500+ (4) Smoker Status: Chronic Code(s): F17.200 - Nicotine dependence, unspecified, uncomplicated Comment: F17.200 Type of Wound Date of Service: 08/20/19 Chief Complaint: Open surgical recurrent hidradenitis wound right axilla. History of Wound: Surgery 07/20/19 - Surgical preparation right axilla with excision painful recurrent hidradenitis (117 cm2). Wound care - Continue silver dressing changes daily. Operative culture - negative. She was treated perioperatively with Doxycycline. Prealbumin from 07/21/19 was 34.1. Encourage nutritional supplementation with protein to help the healing process. HgbA1c from 07/21/19 was 7.1. In order to proceed with elective skin grafting, the HgbA1c needs to be less than 8. Today she denies fever. Her appetite is good. Progress of Wound: Improved. - Physical Exam Vital Signs Temp Pulse Resp BP 98.7 F 93 16 106/64 08/13/19 13:10 08/06/19 10:41 08/06/19 10:41 08/13/19 13:10 General: Alert, Oriented x3, Cooperative HEENT: Atraumatic Lungs: Normal air movement Cardiovascular: Regular rate Extremities: No edema, Capillary Refill Less than 3 Seconds Skin: Ulcer/ Wound - Right axilla Musculoskeletal: No Tenderness to Palpation of Joints or Extremities Neurological: Neuro grossly intact Psych/Mental Status: Normal Affect, Appropriate Debridement Note Post-Debridement Measurements/Treatment WC - Nurse 2 - General Ulcer CM Notes Start: 07/30/19 08:18 Freq: Status: Active Protocol: Activity Type Activity Date Activity User E-Sign Co-Sign Detail Recorded Client Recorded Date Recorded By Document 07/30/19 09:16 [id number] 07/30/19 09:16 Document 08/06/19 11:40 [id number] 08/06/19 11:42 Document 08/13/19 13:31 [id number] 08/13/19 13:32 Document 08/20/19 08:52 [id number] 08/20/19 08:53 07/30/19 08/06/19 08/13/19 09:16 11:40 13:31 Wound Center Nurse 2 #8 right axilla hidradenitis -Time 11:41 13:31 -Correct Patient No Yes Yes -Correct Side, Site, Position No Yes Yes -Correct Procedure No Yes Yes -Procedure Performed No Yes Yes -Type of Procedure Debridement Debridement -Clinical Debridement Subcutaneous Subcutaneous -Post Debridement Size (cm) - Length 4.5 3.6 -Post Debridement Size (cm) - Width 11 10.6 -Post Debridement Size (cm) - Depth 1.2 0.1 -Total Square Cm 49.5 38.16 -Wound/Ulcer Outcome Not Healed Not Healed Not Healed -Ulcer Cleansing Rinsed/ Rinsed/ Irrigated with Irrigated with Saline Saline -Foul Odor after Cleansing No No -Bioengineered Tissue No No -Bleeding Controlled with Pressure Pressure -Offloading No No -Treatment Response Procedure Procedure Tolerated Well Tolerated Well Pain Scale: 0-10 Numeric Is Patient Pain Free? Yes Yes Yes 08/20/19 08:52 Wound Center Nurse 2 #8 right axilla hidradenitis -Time 08:52 -Correct Patient Yes -Correct Side, Site, Position Yes -Correct Procedure Yes -Procedure Performed Yes -Type of Procedure Debridement -Clinical Debridement Subcutaneous -Post Debridement Size (cm) - Length 2.3 -Post Debridement Size (cm) - Width 8.7 -Post Debridement Size (cm) - Depth 0.1 -Total Square Cm 20.01 -Wound/Ulcer Outcome Not Healed -Ulcer Cleansing Rinsed/ Irrigated with Saline -Foul Odor after Cleansing No -Bioengineered Tissue No -Bleeding Controlled with Pressure -Offloading No -Treatment Response Procedure Tolerated Well Pain Scale: 0-10 Numeric Is Patient Pain Free? Yes Wound debrided: axilla ulcer Laterality: Right Type of Debridement: Excisional debridement Anesthesia Used: 4% Lidocaine Solution, 5% Lidocaine Gel Depth: Down to and including healthy tissue, in the subcutaneous layer Percentage of wound debrided: 100 Instrument Used: 7mm curette Tissue Removed: Subcutaneous tissue and slough Severity: Fat Layer Exposed Amount of bleeding with debridement: Mild Bleeding Controlled with: Pressure, Compression and gauze Patient tolerated procedure well Assessment/Plan Assessment: 1. Painful recurrent right axillary hidradenitis. 2. Open surgical recurrent hidradenitis wound right axilla. 3. Smoker. 4. Diabetes mellitus. 5. s/p surgical preparation right axilla with excision painful recurrent hidradenitis (117 cm2). Plan: Discontinue wound VAC. Continue daily silver dressing changes. Operative culture was negative. She was treated perioperatively with Doxycycline. That can be stopped. Her right shoulder is a little stiff. Encourage range of motion exercises to minimize stiffness. Ordered OT for range of motion of her right shoulder. her Prealbumin from 07/21/19 was 34.1. Encourage nutritional supplementation with protein to help the healing process. her HgbA1c from 07/21/19 was 7.1. For any elective skin graft surgery, the HgbA1c needs to be less than 8. The patient is interested in delayed wound closure with skin grafting because she had one placed under the left axilla in the past. She states it is easier to maintain range of motion exercises with a skin graft. Will consider the skin graft next month after more healing has occurred in the right axilla. Renewed Percocet (20). OARRS report reviewed. Followup one week. Code Visit [id number]: [id number] Georgie subq tissue 20 sq cm/<
== END 2019-08-20 23:59 ==
LOC: WC 08:00
PROVIDERS: Family Provider Family Medicine; PCP Family Medicine; Visit Provider Surgery
DX: L73.2 Hidradenitis suppurativa (principal); L98.492 Non-pressure chronic ulcer of skin of other sites with fat layer exposed; E11.622 Type 2 diabetes mellitus with other skin ulcer; F17.200 Nicotine dependence, unspecified, uncomplicated
CPT/HCPCS: 11042; 11045; 99213; G0463

== ENCOUNTER → 2019-08-27 11:07 | Outpatient (CLI) | payer MEDICARE, SELFPAY ==
[2019-08-27 11:06] VITALS: BMI 38.2
[2019-08-27 11:35] LABS: Absolute Lymphocyte Count 2.95 X10^3/uL (0.83-4.51); Absolute Neutrophil Count 10.2 X10^3/uL (2.0-7.7); Basophil# 0.12 X10^3/uL; Basophil% 0.8 % (0-1); Eosinophil# 0.35 X10^3/uL; Eosinophils% 2.4 % (0-5); Hematocrit 41.5 % (37-47); Hemoglobin 13.2 g/dL (12.0-15.0); Lymphocyte # 2.95 X10^3/ul (4.0); Lymphocyte % 20.4 % (19-41); Mean Corp Hgb Conc 31.8 g/dL (32-36); Mean Corpuscular Hgb 29.5 pg (27.0-32.0); Mean Corpuscular Volume 92.6 fL (81-99); Mean Platelet Vol. 8.9 fl (6.2-12.0); Monocyte# 0.77 X10^3/uL; Monocyte% 5.3 % (0-10); NRBC Flagged by Analyzer 0 % (0-5); Neutrophil # 10.16 X10^3/uL (2.7-7.7); Neutrophil % 70.5 % (47-70); Platelet Count 456 K/mm3 (150-450); RBC Distribution Width CV 14.8 % (11.6-14.6); RBC Distribution Width SD 50.4 fl (35.1-43.9); Red Blood Count 4.48 M/mm3 (4.2-5.4); White Blood Count 14.4 K/mm3 (4.4-11.0)
[2019-08-27 12:09] LABS: T4 Free Direct 1.23 ng/dL (0.76-1.46)
[2019-08-29 03:06] LABS: DHEA Sulfate 159.6 ug/dL (84.8-378.0)
[2019-08-29 13:12] LABS: Testosterone Free 1.5 pg/mL (0.0-4.2)
== END ==
PROVIDERS: Family Provider Family Medicine; PCP Family Medicine; Referring Provider Obstetrics & Gynecology; Visit Provider Obstetrics & Gynecology
DX: L98.492 Non-pressure chronic ulcer of skin of other sites with fat layer exposed (principal); N93.9 Abnormal uterine and vaginal bleeding, unspecified; E11.65 Type 2 diabetes mellitus with hyperglycemia; L73.2 Hidradenitis suppurativa; F17.200 Nicotine dependence, unspecified, uncomplicated; Z98.890 Other specified postprocedural states
CPT/HCPCS: 11042; 36415; 82627; 84402; 84439; 84443; 85025; 82626

== ENCOUNTER 2019-09-03 10:03 | Observation (INO) | payer MEDICARE, SELFPAY ==
[2019-08-27 11:59] VITALS: BMI 38.2
--- NOTE | 2019-09-02 21:44 | HP.PCM_ITS ---
History and Physical Date of Admission: 09/03/19 HISTORY OF PRESENT ILLNESS 33 year old woman presents with nonhealing hidradenitis ulcer right axillary area after her recent surgery on 07/20/19 where she underwent surgical preparation right axilla with excision painful recurrent hidradenitis (117 cm2). Wound care was initially done with the VAC and then was changed to Silver dressing changes. Operative culture was negative. She was treated perioperatively with Doxycycline. Prealbumin from 07/21/19 was 34.1. Encourage nutritional supplementation with protein to help the healing process. HgbA1c from 07/21/19 was 7.1. In order to proceed with elective skin grafting, the HgbA1c needs to be less than 8. She has been doing range of motion exercises to minimize stiffness. She presents today for further operative debridement and skin grafting. PAST MEDICAL HISTORY Cat scratch of left hand with infection Cat scratch of right hand with infection Cat scratch Diabetes Hydradenitis Morbid obesity Bipolar affective Osteoarthritis Chronic back pain Diabetic leg ulcer Non-pressure chronic ulcer of right lower leg Smoker. Abscess of sternal region Abscess of breast Alcohol abuse Anxiety and depression Back problem Drug abuse Frequent headaches GERD (gastroesophageal reflux disease) Hay fever Hearing problem Hidradenitis High triglycerides Hyperlipidemia Kidney problem Neuropathy Osteoarthritis Partial thickness burn Recurrent UTI Sinus problem Vision problem HTN (hypertension) PAST SURGICAL HISTORY incision and drainage section tonsillectomy Hidradenitis surgery [place] teeth removal Surgical preparation right axilla with excision painful recurrent hidradenitis (117 cm2) - 07/20/19 ALLERGIES lamotrigine [From Lamictal] adhesive tape MEDICATIONS Clonidine HCl [Catapres] Duloxetine Hcl [Cymbalta] Tizanidine HCl [Zanaflex] glipiZIDE [Glucotrol] metFORMIN HCl [Glucophage] Meloxicam [Mobic] Spironolactone [Aldactone] ] [place] Carbonate [[place] Carbonate ER] gabapentin Lubiprostone [Amitiza] Omeprazole [Prilosec] insulin aspart insulin glargine (U-100) Atorvastatin Calcium Albuterol Sulfate [Ventolin Hfa] Buspirone HCl Duloxetine Hcl [Cymbalta] olanzapine Clindamycin HCl [Cleocin] Naproxen [Naprosyn] cycloBENZAPRine HCl [Flexeril] doxycycline monohydrate for flare ups Percocet FAMILY HISTORY Grandmother - Thyroid disorder Father -Diabetes, Heart disease, Hypertension, High cholesterol Mother - Heart disease, Hypertension, High cholesterol SOCIAL HISTORY household members: family, children number of children: 1 Smoking Status: Current every day smoker second hand exposure: No alcohol intake: former substance use type: former substance user REVIEW OF SYSTEMS GENERAL: Complains of fatigue. Denies fever and weight loss. Has history of alcohol abuse and drug abuse. EYES: Denies eye pain. ENT: Denies nasal congestion and sore throat. CARDIOVASCULAR: Has fatigue. Denies chest pain, lightheadedness, and shortness of breath with exertion. RESPIRATORY: Complains of cough and shortness of breath. The patient is a smoker. Does have asthma. GI: Denies nausea, vomiting, diarrhea, or constipation. : Denies hematuria and urinary frequency. MUSCULOSKELETAL: Complains of joint pain, back pain, and arthritis. Denies stiffness, muscle weakness, and gout. Has symptoms of bilateral carpal tunnel syndrome with numbness in thumb and index fingers. INTEGUMENTARY: Denies skin cancer. Has history of hidradenitis. Has recent flare up of hidradenitis in right axilla that resulted in excision on 07/20/19. NEURO: Denies headaches. Denies poor balance and weakness. PSYCH: Denies anxiety and depression. Has bipolar disorder. ENDOCRINE: Denies excessive thirst or urination. Has diabetes mellitus. HEMATOLOGIC: Denies abnormal bruising and fevers. PHYSICAL EXAMINATION HEENT: Pupils equal, round, and reactive to light. Extraocular muscles intact. Throat is clear. Left ear skin flap is healing satisfactory with good earlobe contour. NECK: Supple. No bony tenderness. Has scarring on the posterior neck and occipital scalp from previous excision of hidradenitis. Has good range of motion. No cervical adenopathy. LUNGS: Clear to auscultation. HEART: Regular rate and rhythm. ABDOMEN: Soft and nondistended. BREASTS: Breasts are soft. No masses palpable. No evidence of recurrent infection. No axillary adenopathy. EXTREMITIES: No clubbing, cyanosis, or edema. On the left axillary area is a healed skin graft. In the right axilla is a nonhealing hidradenitis ulcer. Good granulation tissue seen. Measures 8 x 2 cm. No axillary adenopathy noted bilaterally. Radial pulses are palpable. NEURO: Cranial nerves II through XII grossly intact. Some paresthesias in the thumb and index finger bilaterally. ASSESSMENT 1. Nonhealing hidradenitis ulcer right axilla. 2. Smoker. 3. Diabetes mellitus. PLAN She is currently getting Silver dressing changes daily. She is proceeding with range of motion exercises to minimize stiffness. She uses Doxycycline for hidradenitis flare ups. She presents today for further operative debridement and skin grafting. Will send tissue to Pathology for analysis and to Microbiology for culture. A positive culture will necessitate antibiotic therapy. Recent Prealbumin from 07/21/19 was 34.1. Encourage nutritional supplementation with protein to help the healing process. Her HgbA1c from 07/21/19 was 7.1. For elective skin grafting, it needs to be less than 8. Surgery will be done under general anesthesia with a surgical observation overnight stay in the hospital. Will place a SYLVIA NPWT device over the skin graft for compression. It will be removed in a week. Will followup at the Wound Center after discharge. Patient was informed of the risks and complications of the procedure including alternatives to surgery. These were discussed with the patient personally. Patient voices understanding and wishes to proceed. Some of the risks and complications were included in a form from the [employer]. Encouraged patient to stop smoking as it may have deleterious effects on wound healing. on Doxycycline but is running low. Will renew the Doxycycline to minimize further flare ups until surgery. Recommend surgical preparation right axilla with excision recurrent hidradenitis. Will leave the wound open and begin postop wound care with the VAC. After 2-4 weeks of wound care, will consider returning to surgery for delayed closure with skin grafting. Tissue that is removed at surgery will be sent to Pathology for analysis to rule out carcinoma and to Microbiology for culture. A positive culture will necessitate antibiotic therapy. Will schedule the surgery to be done on under general anesthesia with a surgical observation overnight stay in the hospital. Patient was informed of the risks and complications of the procedure including alternatives to surgery. These were discussed with the patient personally. Patient voices understanding and wishes to proceed. Some of the risks and complications were included in a form from the [employer]. Encouraged the patient to stop smoking as it may have deleterious effects on wound healing. Her last HgbA1c was 6.8 on 04/10/19.
[2019-09-03] VITALS (14 sets, daily range): BP systolic 106–129; BP diastolic 59–93; PULSE 72–100; RESP 15–18; TEMP 36.4–37.3; O2SAT 94–100; BMI 38.2
[2019-09-03 07:06] LABS: Bedside Glucose 147 mg/dL (70-110)
[2019-09-03] MEDS: Lactated Ringers 1,000 ML 100 ML IV ×2 (07:06→09:31)
--- NOTE | 2019-09-03 07:30 | HID_PTH ---
PATIENT: ROGER HOOD LOC: [facility]3 U#:[id number] AGE/SX: 33/F ROOM: [facility]318 RE09/03/[address]: Dr. Jonny Key DO : 1985 BED: 1 DIS: 09/04/2019 SPEC #: [id number] RECD: 09/03/19 12:17 STATUS: AGGIEBebe MCCURDY #: [id number] RADHAMES: 09/03/19 07:[address]: Phoenix Boswell DEPT: SURGICAL PATHOLOGY RECD BY: Gerardo Herndon ENTERED: 09/03/19 13:32 SP TYPE: Hidradenit LUZ MARIA DR: Dr. Aj Staley MD Tissues: Axilla, NOS Procedures: Surgery Specimen Level III HEADER OPERATION: Excisional debridement nonhealing hidradenitis ulcer, right axilla PRE-OP DIAGNOSIS: Nonhealing hidradenitis ulcer, right axilla TISSUE SUBMITTED: Hidradenitis ulcer, right axilla MICROSCOPIC DIAGNOSIS Hidradenitis ulcer right axilla, excisional debridement: Pieces of skin with underlying tissue with focal ulceration, chronic inflammation and foreign body giant cell reaction. PATSY:anastasiia 09/04/19 MICROSCOPIC DESCRIPTION Slides are reviewed. GROSS DESCRIPTION Received in fixative is one container labeled with the patient's name and designated hidradenitis ulcer, right axilla. The specimen consists of four variable sized pieces of skin with underlying tissue that in aggregate measure 6 x 2 x 1 cm. Sections do not reveal any mass lesion. Switch House Operator sections are submitted in two cassettes. / Nicanor 09/03/19 TC:3 CPT: 29683
[2019-09-03] MEDS: Mupirocin Ointment 22gm Tube 1 APPLIC (09:43)
--- NOTE | 2019-09-03 09:59 | PCM.OPRPT ---
Report of Operation Date of Procedure: 09/03/19 Pre-Operative Diagnosis: 1. Nonhealing hidradenitis ulcer right axilla. 2. Smoker. 3. Diabetes mellitus. Post-Operative Diagnosis: Same. Surgery/Procedure Performed:: 1. Surgical preparation righta axilla with excisonal debridement nonhealing hidradenitis ulcer and FTSG reconstruction from the rright flank (35 cm2). 2. Placement of AmnioFill Placental Connective Tissue Powder, 500 mg. 3. Placement of SYLVIA NPWT device. Description of Surgical Findings:: 33 year old woman presents with nonhealing hidradenitis ulcer right axillary area after her recent surgery on 07/20/19 where she underwent surgical preparation right axilla with excision painful recurrent hidradenitis (117 cm2). Wound care was initially done with the VAC and then was changed to Silver dressing changes. Operative culture was negative. She was treated perioperatively with Doxycycline. Prealbumin from 07/21/19 was 34.1. Encourage nutritional supplementation with protein to help the healing process. HgbA1c from 07/21/19 was 7.1. In order to proceed with elective skin grafting, the HgbA1c needs to be less than 8. She has been doing range of motion exercises to minimize stiffness. Patient was informed of the risks and complications of the procedure including alternatives to surgery. These were discussed with the patient personally. Patient voices understanding and wishes to proceed. Encouraged patient to stop smoking as it may have deleterious effects on wound healing. Size of skin graft right axilla - 10 x 3.5 cm. I used AmnioFill Placental Connective Tissue Powder, 500 mg. Lot Number - [id number]. Catalog Number - [id number]. Expiration - March 21, 2024. I used Veronica absorbable hemostat. Reference Number - [id number]. Lot Number - [id number]. Expiration - May 18, 2024. senior bioinformatics scientist: Vinita Sahni. Type of Anesthesia:: General Specimen's removed: Nonhealing hidradenitis ulcer right axilla to Pathology and Microbiology. Drains: Cuauhtemoc. Estimated Blood Loss (mL): 50 ml. Description of Procedure: The patient was taken to the operating room and in the supine position, she was placed under general anesthesia and her right axillary area and right flank area were prepped and draped in usual fashion. SCDs were placed for DVT prophylaxis. Perioperative antibiotics were given intravenously. Using 1% Xylocaine and epinephrine, an area in the right flank and the right axillary area were infiltrated. After waiting 5 minutes for the anesthetic to take effect, ellipse of skin was excised from the right flank area down into the subcutaneous tissue. The subcutaneous tissue was removed from the undersurface of the dermis, thus fashioning a full-thickness skin graft. The skin graft was placed on stretch and it was meshed with a 15 blade. It was then placed in saline. The donor site was then approximated after some of the underlying subcutaneous tissue was removed to aid in wound closure. Hemostasis was obtained using electrocautery. The wound was irrigated with saline. Due to the large size of the donor site, a size 15 Cuauhtemoc drain was placed through a separate stab incision laterally and secured to the skin with 3-0 Nylon suture. I then sprayed Veronica absorbable hemostat into the wound to minimize seroma formation. The donor site was then approximated in multiple layers using 2-0 Vicryl [id number] interrupted sutures for the underlying Cinthia's fascia. The deep dermis and subcutaneous tissue was approximated using 3-0 Monocryl interrupted sutures. The skin was approximated using 3-0 unidirectional barbed V-Loc running subcuticular suture. This was then covered by Histoacryl skin tissue adhesive and a gauze dressing. I then used a curette and a scalpel to sharply debride the nonhealing hidradenitis ulcer in the right axillary area. Good bleeding tissue was seen in the wound bed after the excisional debridement. The underlying scar was thinned with a scalpel in a tangential fashion until better bleeding was seen to aid in wound closure with the skin graft. The tissue was sent to microbiology for culture and to Pathology for analysis to rule out carcinoma. Hemostasis was obtained using electrocautery. The wound was irrigated with saline. The size of the defect in the right axillary area was 10 x 3.5 cm or 35 cm2. I then placed AmnioFill placental connective tissue powder into the wound to aid in the healing of the skin graft. The skin graft was then placed on the defect and secured to the skin edge using 3-0 Chromic interrupted sutures. 3-0 Chromic sutures were also used for central quilting stabilization. Bactroban ointment was applied to the skin graft followed by Mepitel nonadherent dressing followed by placement of SYLVIA NPWT device. Good suction was noted on the skin graft. The patient tolerated the procedure well and will be sent to the recovery room in satisfactory condition. She will then be sent upstairs for postoperative care. She will go home when she is tolerating oral pain medication. I anticipate tomorrow. She will then [facility] early next week for takedown of the skin graft dressing with the removal of the SYLVIA device and to assess the healing of the skin graft. Also, any positive cultures will need antibiotic therapy. Also, I anticipate increased metabolic demands from the wound as well as from the surgery. Prealbumin will be checked. I encouraged her to take nutritional supplementation with protein to help with the healing process. Also, it was discussed with the patient that if there is any compromise to the skin graft of the healing process, we can discuss hyperbaric oxygen therapy to try and salvage the skin graft in a more timely fashion. Grafts/Implants Used: AmnioFill Placental Connective Tissue Powder. - Complications None. - Admit VTE Documentation VTE Present on Admission: No VTE Mechan Device Prophylaxis: SCD's VTE Pharm Prophylaxis ordered?: Yes Code Visit Surgery Charges CPT - 74984 ICD-10 - L98.492, L73.2, E11.9, F17.200 34436 L98.492, L73.2, E11.9, F17.200 10552 L98.492, L73.2, E11.9, F17.200
[2019-09-03 12:01] LABS: Bedside Glucose 146 mg/dL (70-110)
[2019-09-03] MEDS: Lactated Ringers 1,000 ML 60 ML IV (12:54)
[2019-09-03 13:21] LABS: Bedside Glucose 124 mg/dL (70-110)
[2019-09-03] MEDS: Gabapentin 300 MG Capsule PO ×3 (14:32→22:29)
[2019-09-03] MEDS: tiZANidine HCl 2 MG Tablet 4 MG PO ×3 (14:32→22:29)
[2019-09-03] MEDS: 0.9% NaCl Peripheral Flush Adult/Peds IV ×4 (14:32→22:40)
[2019-09-03] MEDS: Ondansetron 4 MG/2 ML Vial IV ×2 (14:32→20:46)
[2019-09-03] MEDS: HYDROmorphone 1 MG/ML Syringe IV ×3 (14:32→22:40)
[2019-09-03] MEDS: hydrOXYzine PAM 25 MG Capsule 100 MG PO ×2 (14:32→22:28)
[2019-09-03] MEDS: Lithium Carbonate 300mg Capsule 300 MG PO ×2 (16:30→22:28)
[2019-09-03] MEDS: metFORMIN HCl 1,000 MG Tablet 1000 MG PO (16:30)
[2019-09-03] MEDS: busPIRone 5 MG Tablet 20 MG PO ×2 (16:30→22:28)
[2019-09-03] MEDS: HYDROmorphone 2 MG TABLET PO ×2 (16:43→20:46)
[2019-09-03] MEDS: Insulin Lispro 100 UNIT/ML INSULN.PEN SC (17:10)
--- NOTE | 2019-09-03 17:49 | PCM.CONS.GEN ---
<Kelsey Ferguson - Last Filed: 09/03/19 18:08> Problem List (1) Diabetes mellitus type 2, uncontrolled Status: Chronic (2) Hidradenitis suppurativa Status: Chronic Comment: Painful recurrent right axillary hidradenitis 6 mm hidradenitis right posterior earlobe 4 cm recurrent hidradenitis posterior neck and occipital scalp (3) Morbid obesity Status: Chronic (4) Bipolar affective Status: Chronic Reason for Consult Date of Consultation: 09/03/19 Reason for Consultation: Medical management. History of Present Illness: The patient is a 33 year old F who underwent excisional debridement nonhealing hydradenitis ulcer with Dr. Boswell 09/03/19. Patient currently complains of severe pain. She denies fever, chills. Denies nausea, vomiting. Denies other complaints. She has a past medical history of type 2 diabetes mellitus, morbid obesity, bipolar disorder, anxiety, depression, hyperlipidemia, GERD. Past Medical History Past Medical History (Chronic Problems): Chronic Problems (Last Reviewed 08/27/19 @ 10:40 by Agueda Bahena) Non-pressure chronic ulcer of skin of other sites with fat layer exposed (Chronic) Branchial cleft sinus (Chronic) Diabetes mellitus type 2, uncontrolled (Chronic) Chronic neck pain (Chronic) Bilateral carpal tunnel syndrome (Chronic) worse on left Hidradenitis suppurativa (Chronic) Painful recurrent right axillary hidradenitis 6 mm hidradenitis right posterior earlobe 4 cm recurrent hidradenitis posterior neck and occipital scalp History of incision and drainage (Chronic) Left side of neck 12/02/17, RIGHT BREAST ABSCESS 09/17/2014, LEFT BREAST ABSCESS 10/11/2014, INGUINAL HYDRADENITIS, AXILLARY HYDRADENITIS Diabetes (Chronic) type 2 Dx : 2012 Last exacerbation : DKA : never Hypoglycemic episode : never ER visit : 01/08 - 500+ Hydradenitis (Chronic) hidradenitis left axilla - L73.2 Morbid obesity (Chronic) Bipolar affective (Chronic) Osteoarthritis (Chronic) Chronic back pain (Chronic) Diabetic leg ulcer (Chronic) nonhealing diabetic ulcer right medial leg - E11.622 Non-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 fat layer exposed (Chronic) diabetic ulcer right medial leg - L97.912 Smoker (Chronic) 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 H/O hidradenitis suppurativa (Chronic) Z87.2 Medical History: Medical History (Last Reviewed 08/27/19 @ 10:40 by Agueda Bahena) Cat scratch of left hand with infection (Acute) S60.512A, L08.9, W55.03XA cat scratch infection dorsum left hand at proximal index finger Cat scratch of right hand with infection (Acute) S60.511A, L08.9, W55.03XA cat scratch infection dorsum right hand with extension to long finger Cat scratch (Acute) W55.03XA cat scratch infection dorsum right hand with extension to long finger cat scratch infection dorsum left hand at proximal index finger Diabetes (Chronic) E11.9 type 2 Dx : 2012 Last exacerbation : DKA : never Hypoglycemic episode : never ER visit : 01/08 - 500+ Morbid obesity (Chronic) E66.01 Bipolar affective (Chronic) F31.9 Osteoarthritis (Chronic) Chronic back pain (Chronic) M54.9, G89.29 Diabetic leg ulcer (Chronic) E11.622, L97.909 nonhealing diabetic ulcer right medial leg - E11.622 Non-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 fat layer exposed (Chronic) L97.912 diabetic ulcer right medial leg - L97.912 Open wound of left axillary region (Acute) S41.102A open surgical hidradenitis wound left axilla - S41.102A 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 compromised skin graft left axilla Abscess of sternal region (Acute) L02.213 L02.213 Sternal chest wall wound abscess Open wound of chest wall, complicated (Acute) S21.109A S21.109D open chest wall sternal wound H/O hidradenitis suppurativa (Chronic) Z87.2 Z87.2 Abscess of breast (Acute) N61.1 abscess right medial breast Alcohol abuse F10.10 Anxiety and depression F41.9, F32.9 Asthma J45.909 Drug abuse F19.10 GERD (gastroesophageal reflux disease) K21.9 Hidradenitis L73.2 LEFT INGUINAL, RIGHT AXILLARY, POSTERIOR NECK, Hyperlipidemia E78.5 Neuropathy G62.9 Non-healing surgical wound T81.89XA NON HEALING HIDRADENITIS WOUND POSTERIOR NECK. NON HEALING INFECTED HIDRADENITIS ULCER POSTERIOR NECK Osteoarthritis M19.90 [place] teeth removed K08.499 HTN (hypertension) I10 Allergies lamotrigine [From Lamictal] Allergy (Mild, Verified 09/03/19 06:57) Rash adhesive tape Allergy (Verified 09/03/19 06:57) Rash Home Medications: Ambulatory Orders Medication Instructions Recorded Clonidine HCl [Catapres] 0.1 mg PO DAILY PRN PRN 01/18/14 Duloxetine Hcl [Cymbalta] 60 mg PO DAILY 01/18/14 Tizanidine HCl [Zanaflex] 4 mg PO 4X/DAY 01/18/14 glipiZIDE [Glucotrol] 15 mg PO DAILY@0730 01/18/14 metFORMIN HCl [Glucophage] 1,000 mg PO BIDCM 01/18/14 Meloxicam [Mobic] 7.5 mg PO DAILY 01/14/16 Spironolactone [Aldactone] 100 mg PO DAILY 01/14/16 [place] Carbonate [[place] 300 mg PO TID 05/10/16 Carbonate ER] gabapentin 300 mg capsule 300 mg PO 4X/DAY cap 12/01/17 Lubiprostone [Amitiza] 24 mcg PO BID 01/16/18 Omeprazole [Prilosec] 20 mg PO DAILY 01/16/18 insulin aspart U-100 100 unit/mL See Protocol SC TIDCM ml 02/14/18 subcutaneous solution Atorvastatin Calcium 20 mg PO QHS 06/21/18 Albuterol Sulfate [Ventolin Hfa] 1 - 2 inhaler INHALATION 4X/DAY 06/30/18 PRN PRN Buspirone HCl 20 mg PO TID 06/30/18 Duloxetine Hcl [Cymbalta] 30 mg PO DAILY 06/30/18 olanzapine 15 mg tablet 15 mg PO DAILY 03/28/19 doxycycline monohydrate 100 mg 100 mg PO BID 30 Days #60 tab 07/04/19 tablet Insulin Glargine [Lantus SoloStar 10 units SUBCUT QHS 07/13/19 Pen] Insulin Lispro [Humalog KwikPen] See Protocol SUBCUT ACHS 07/22/19 insuln.pen hydroxyzine pamoate 100 mg capsule 100 mg PO TID 08/27/19 Surgical History: Surgical History (Last Reviewed 09/03/19 @ 17:55 by MYRTLE Browning) History of section (Acute) Z98.891 History of tonsillectomy (Acute) Z98.890, Z90.89 H/O neck surgery Z98.890 History of axillary surgery Z98.890 Surgical History: tonsillectomy, - - Excisional debridement hydradenitis right axilla Psychiatric History: Anxiety, Bipolar, Depression LABORATORY ASSISTANT History: No pertinent LABORATORY ASSISTANT history Smoking Status: Current every day smoker Alcohol: None Drugs: None - *Family History Maternal Family History: Family History (Last Reviewed 09/03/19 @ 17:55 by MYRTLE Browning) Grandmother Thyroid disorder Father Diabetes Heart disease Hypertension High cholesterol Mother Heart disease Hypertension High cholesterol History Items: Heart Disease, Hypertension Paternal Family History: Family History (Last Reviewed 09/03/19 @ 17:55 by MYRTLE Browning) Grandmother Thyroid disorder Father Diabetes Heart disease Hypertension High cholesterol Mother Heart disease Hypertension High cholesterol History Items: Diabetes, Heart Disease, Hypertension Review of Systems Constitutional: Denies: Chills, Fever, Weight Change HEENT: Denies: Head Aches, Sinus Congestion, Sinus Drainage Cardiovascular: Denies: Chest Pain, Palpitations Respiratory: Denies: Cough, Shortness of breath at rest, Sputum production Gastrointestinal: Denies: Abdominal Pain, Nausea, Vomiting Genitourinary: Denies: Dysuria Musculoskeletal: Denies: Joint Pain, Joint Tenderness Skin: Denies: Rash, Wounds Neurological: Denies: Numbness, Tingling, Focal weakness Psychiatric: Denies: Anxiety, Depression, Homicidal Ideations, Suicidal Ideations Hematologic/ Lymphatic: Denies: Easy Bruising, Easy Bleeding - Physical Exam General: Alert, Oriented x3, Cooperative HEENT: Atraumatic, PERRLA, EOMI, Normocephalic Neck: Supple, No JVD, Negative Carotid Bruits Lungs: Clear to auscultation, Normal air movement Cardiovascular: Regular rate, Regular Rhythm, Normal S1, Normal S2, No murmurs Abdomen: Bowel Sounds Present, Soft, Non Tender, Non-Distended, Obese Extremities: No clubbing, No cyanosis, No edema, Capillary Refill Less than 3 Seconds Skin: No rashes, No breakdown, - - Right axillary postop dressings intact. Musculoskeletal: No Tenderness to Palpation of Joints or Extremities Neurological: Cranial nerves II-XII grossly intact, Neuro grossly intact Psych/Mental Status: Normal Affect, Appropriate Vital Signs Temp Pulse Resp BP Pulse Ox 98.4 F 87 16 114/71 97 09/03/19 16:58 09/03/19 16:58 09/03/19 16:58 09/03/19 16:58 09/03/19 16:58 Oxygen Delivery Method Room Air Weight: 230 lb Body Mass Index (BMI) 38.2 Finger Stick Blood Glucose 146 Intake and Output for Last 24 Hours 09/01/19 09/02/19 09/03/19 23:59 23:59 23:59 Intake Total 1452 / 1452 Output Total 0 / 0 Balance 1452 / 1452 Microbiology Past 72 Hours 09/03/19 08:30 Gram Stain - Final Tissue - Other POC Glucose 09/03/19 09/03/19 09/03/19 13:13 11:57 06:56 POC Glucose 124 H 146 H 147 H Assessment/Plan All Active Problems (Last Reviewed 08/27/19 @ 10:40 by Agueda Bahena) Abnormal uterine bleeding (Acute) Open wound of right axillary region with complication (Acute) Abscess of neck (Acute) Open wound involving head with neck, complicated (Acute) Unspecified open wound of unspecified part of head, subsequent encounter (Acute) Unspecified open wound of unspecified part of neck, subsequent encounter (Acute) Folliculitis (Acute) Abscess, scalp (Acute) Muscle spasms of neck (Acute) Cellulitis of right hand (Acute) Cat bite (Acute) Cat bite of right hand with infection (Acute) Abscess of dorsum of right hand (Acute) Necrotizing soft tissue infection (Acute) History of section (Acute) History of tonsillectomy (Acute) Cat scratch of left hand with infection (Acute) Cat scratch of right hand with infection (Acute) Cat scratch (Acute) Open wound of left axillary region (Acute) Abscess of sternal region (Acute) Open wound of chest wall, complicated (Acute) Abscess of breast (Acute) 1. Nonhealing right axillary hydradenitis status post excisional debridement 09/03/[address] Boswell-MARISOL Erickson. PRN pain regimen. Tissue cultures pending. Wound RN consult. 2. Type 2 diabetes mellitus-hemoglobin A1c 07/21/2018 7.1%. Continue home insulin regimen. 3. Tobacco dependence- encouraged cessation. 4. GERD-continue home omeprazole regimen. 5. Bipolar/depression/anxiety-continue home medication regimen. 6. Hyperlipidemia-continue statin regimen. 7. Obesity-encouraged diet lifestyle modifications. DVT prophylaxis-Lovenox sc This patient was seen by MYRTLE Browning under the supervision of Dr. Osuna. <Enedelia Osuna - Last Filed: 09/03/19 19:03> Reason for Consult History of Present Illness: The patient is a 33 year old F [] Past Medical History Medical History: Medical History (Last Reviewed 08/27/19 @ 10:40 by Agueda Bahena) Cat scratch of left hand with infection (Acute) S60.512A, L08.9, W55.03XA cat scratch infection dorsum left hand at proximal index finger Cat scratch of right hand with infection (Acute) S60.511A, L08.9, W55.03XA cat scratch infection dorsum right hand with extension to long finger Cat scratch (Acute) W55.03XA cat scratch infection dorsum right hand with extension to long finger cat scratch infection dorsum left hand at proximal index finger Diabetes (Chronic) E11.9 type 2 Dx : 2012 Last exacerbation : DKA : never Hypoglycemic episode : never ER visit : 01/08 - 500+ Morbid obesity (Chronic) E66.01 Bipolar affective (Chronic) F31.9 Osteoarthritis (Chronic) Chronic back pain (Chronic) M54.9, G89.29 Diabetic leg ulcer (Chronic) E11.622, L97.909 nonhealing diabetic ulcer right medial leg - E11.622 Non-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 fat layer exposed (Chronic) L97.912 diabetic ulcer right medial leg - L97.912 Open wound of left axillary region (Acute) S41.102A open surgical hidradenitis wound left axilla - S41.102A 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 compromised skin graft left axilla Abscess of sternal region (Acute) L02.213 L02.213 Sternal chest wall wound abscess Open wound of chest wall, complicated (Acute) S21.109A S21.109D open chest wall sternal wound H/O hidradenitis suppurativa (Chronic) Z87.2 Z87.2 Abscess of breast (Acute) N61.1 abscess right medial breast Alcohol abuse F10.10 Anxiety and depression F41.9, F32.9 Asthma J45.909 Drug abuse F19.10 GERD (gastroesophageal reflux disease) K21.9 Hidradenitis L73.2 LEFT INGUINAL, RIGHT AXILLARY, POSTERIOR NECK, Hyperlipidemia E78.5 Neuropathy G62.9 Non-healing surgical wound T81.89XA NON HEALING HIDRADENITIS WOUND POSTERIOR NECK. NON HEALING INFECTED HIDRADENITIS ULCER POSTERIOR NECK Osteoarthritis M19.90 [place] teeth removed K08.499 HTN (hypertension) I10 Allergies lamotrigine [From Lamictal] Allergy (Mild, Verified 09/03/19 06:57) Rash adhesive tape Allergy (Verified 09/03/19 06:57) Rash Surgical History: Surgical History (Last Reviewed 09/03/19 @ 17:55 by MYRTLE Browning) History of section (Acute) Z98.891 History of tonsillectomy (Acute) Z98.890, Z90.89 H/O neck surgery Z98.890 History of axillary surgery Z98.890 - *Family History Maternal Family History: Family History (Last Reviewed 09/03/19 @ 17:55 by MYRTLE Browning) Grandmother Thyroid disorder Father Diabetes Heart disease Hypertension High cholesterol Mother Heart disease Hypertension High cholesterol Paternal Family History: Family History (Last Reviewed 09/03/19 @ 17:55 by MYRTLE Browning) Grandmother Thyroid disorder Father Diabetes Heart disease Hypertension High cholesterol Mother Heart disease Hypertension High cholesterol - Physical Exam Vital Signs Temp Pulse Resp BP Pulse Ox 98.4 F 87 16 114/71 97 09/03/19 16:58 09/03/19 16:58 09/03/19 16:58 09/03/19 16:58 09/03/19 16:58 Oxygen Delivery Method Room Air Weight: 104.326 kg Body Mass Index (BMI) 38.2 Finger Stick Blood Glucose 146 Intake and Output for Last 24 Hours 09/01/19 09/02/19 09/03/19 23:59 23:59 23:59 Intake Total 1923 Output Total 0 / 0 Balance 1923 / 1923 Microbiology Past 72 Hours 09/03/19 08:30 Gram Stain - Final Tissue - Other POC Glucose 09/03/19 09/03/19 09/03/19 17:04 13:13 11:57 POC Glucose 203 H 124 H 146 H 09/03/19 06:56 POC Glucose 147 H Assessment/Plan This patient was seen in conjunction with Kelsey Ferguson NP. I have independently interviewed and examined the patient and reviewed pertinent historical, laboratory, and other data. Please refer to her note for patient's presentation, findings, and recommendations. 33-year-old female with nonhealing hidradenitis ulcer in the right axillary area status post recent excision of painful recurrent hidradenitis admitted for further operative debridement and skin grafting. Today is postop day 0. Complains of severe pain. Denies any fever or chills or dizziness or chest pain Vitals were reviewed -stable Physical Exam: Gen: Obese, not pale, not jaundiced, alert oriented x3 CVS:HS I +II, regular, no murmurs RESP: Color clear to auscultation GI: BS present and normal, nontender, no palpable organs, dressing over the right lower abdomen as well as the right axillary region EXT:No edema Labs reviewed: Sugars are controlled ASSESSMENT: 1. Postop day #0 status post excisional debridement for nonhealing right axillary and right flank hidradenitis as well. 2. Type II DM 3. Nicotine dependence 4. Bipolar disorder 5. Hyperlipidemia 6. Obesity 7. GERD Meds reviewed Plan: Follow-up on wound cultures Continue on IV Unasyn for now Continue to monitor blood glucose Advised to quit smoking Continue on nicotine patch Code Visit Inpatient E&M: [id number] [facility] L2
[2019-09-03 17:51] LABS: Bedside Glucose 203 mg/dL (70-110)
[2019-09-03] MEDS: diazePAM 5 MG Tablet PO (18:33)
[2019-09-03] MEDS: Lubiprostone 24 MCG Capsule PO (22:28)
[2019-09-03] MEDS: Atorvastatin Calcium 20 MG Tablet PO (22:39)
[2019-09-03] MEDS: Docusate Sodium 100 MG Capsule PO (22:39)
[2019-09-03 22:56] LABS: Bedside Glucose 146 mg/dL (70-110)
[2019-09-04] MEDS: HYDROmorphone 2 MG TABLET PO ×4 (00:30→13:38)
--- NOTE | 2019-09-04 02:30 | NURSING ---
pt's nicotine patch had fallen off. disposed in waste.
[2019-09-04 02:33] VITALS: BP 105/59; PULSE 83; RESP 18; TEMP 36.4; O2SAT 98
[2019-09-04 03:06] VITALS: BP 111/58
[2019-09-04] MEDS: Ondansetron 4 MG/2 ML Vial IV (03:11)
[2019-09-04] MEDS: 0.9% NaCl Peripheral Flush Adult/Peds IV (03:11)
[2019-09-04] MEDS: HYDROmorphone 1 MG/ML Syringe IV ×4 (03:12→14:57)
[2019-09-04 03:51] VITALS: PULSE 78; RESP 18
[2019-09-04] MEDS: Albuterol 2.5 MG/3 ML VIAL.NEB. INHALATION (03:51)
[2019-09-04] MEDS: Lactated Ringers 1,000 ML 60 ML IV (05:48)
[2019-09-04] MEDS: hydrOXYzine PAM 25 MG Capsule 100 MG PO ×2 (05:52→13:39)
[2019-09-04] MEDS: Lithium Carbonate 300mg Capsule 300 MG PO ×2 (05:52→13:38)
[2019-09-04] MEDS: busPIRone 5 MG Tablet 20 MG PO ×2 (05:52→13:38)
[2019-09-04] MEDS: Enoxaparin 40 MG/0.4 ML Syringe SC (06:59)
[2019-09-04] MEDS: Insulin Lispro 100 UNIT/ML INSULN.PEN SC ×2 (07:01→11:10)
[2019-09-04] MEDS: glipiZIDE 5 MG Tablet 15 MG PO (07:39)
[2019-09-04] MEDS: metFORMIN HCl 1,000 MG Tablet 1000 MG PO (07:39)
[2019-09-04] MEDS: Gabapentin 300 MG Capsule PO ×2 (07:39→13:37)
[2019-09-04 07:40] LABS: Bedside Glucose 156 mg/dL (70-110)
[2019-09-04] MEDS: Pantoprazole Sodium 20 MG Tablet PO (07:40)
[2019-09-04] MEDS: DULoxetine Hcl 60 MG Capsule PO (07:41)
[2019-09-04] MEDS: Docusate Sodium 100 MG Capsule PO (07:41)
[2019-09-04] MEDS: Spironolactone 50 MG Tablet 100 MG PO (07:41)
[2019-09-04] MEDS: DULoxetine Hcl 30 MG Capsule PO (07:42)
[2019-09-04] MEDS: Lubiprostone 24 MCG Capsule PO (07:42)
[2019-09-04] MEDS: tiZANidine HCl 2 MG Tablet 4 MG PO ×2 (07:43→13:37)
[2019-09-04] MEDS: OLANZapine 2.5 MG Tablet 5 MG PO (07:44)
[2019-09-04] MEDS: OLANZapine 10 MG Tablet PO (07:44)
[2019-09-04] MEDS: Meloxicam 7.5 MG Tablet PO (07:44)
[2019-09-04 08:30] VITALS: BP 105/66; PULSE 84; RESP 18; TEMP 36.6; O2SAT 94
--- NOTE | 2019-09-04 08:30 | PN_ITS ---
Subjective: F/U DM Pain from surgery. Some wheezing today. +heartburn earlier, alleviated with meds. Vitals/I&O's: Vital Signs Temp Pulse Resp BP Pulse Ox 36.4 C L 78 18 111/58 L 98 09/04/19 02:33 09/04/19 03:51 09/04/19 03:51 09/04/19 03:06 09/04/19 02:33 Oxygen Delivery Method Room Air Weight: 104.326 kg Body Mass Index (BMI) 38.2 Finger Stick Blood Glucose 146 Intake and Output for Last 24 Hours 09/02/19 09/03/19 09/04/19 23:59 23:59 23:59 Intake Total 2631 / 2631 1569 / 1569 Output Total 0 / 0 70 / 70 Balance 2631 / 2631 1499 / 1499 General: Alert, No apparent distress HEENT: Atraumatic, Normocephalic Oral: Moist Mucosa, No Gingival or Mucosal Lesions/ Ulcerations Neck: No Nodes, Thyroid Normal Size and Texture Lungs: Clear to auscultation, Normal air movement, No rhonchi, No wheeze Cardiovascular: Regular rate, Regular Rhythm, Normal S1, Normal S2 Abdomen: Bowel Sounds Present, Soft, Non Tender, Non-Distended Extremities: No edema, No Calf Tenderness Skin: No rashes, No breakdown Musculoskeletal: No Tenderness to Palpation of Joints or Extremities, No Muscle Wasting Psych/Mental Status: Normal Affect, Appropriate Microbiology Past 72 Hours 09/03/19 08:30 Tissue - Other Gram Stain - Final Laboratory Results 09/03/19 11:57: POC Glucose 146 H 09/03/19 13:13: POC Glucose 124 H 09/03/19 17:04: POC Glucose 203 H 09/03/19 22:22: POC Glucose 146 H 09/04/19 06:55: POC Glucose 156 H Current Medications Albuterol Sulfate (Ventolin Aerosols) 2.5 mg INHALATION Q4H PRN PRN PRN Reason: WHEEZING Last Admin: 09/04/19 03:51 Dose: 2.5 mg Documented by: Atorvastatin Calcium (Lipitor) 20 mg PO QHS [facility] Last Admin: 09/03/19 22:39 Dose: 20 mg Documented by: Buspirone HCl (Buspar) 20 mg PO TID [facility] Last Admin: 09/04/19 05:52 Dose: 20 mg Documented by: Clonidine (Catapres) 0.1 mg PO DAILY PRN PRN PRN Reason: ANXIETY Diazepam (Valium) 5 mg PO 4X/DAY PRN PRN PRN Reason: SPASMS Last Admin: 09/03/19 18:33 Dose: 5 mg Documented by: Docusate Sodium (Colace) 100 mg PO BID [facility] Last Admin: 09/04/19 07:41 Dose: 100 mg Documented by: Duloxetine HCl (Cymbalta) 60 mg PO DAILY [facility] Last Admin: 09/04/19 07:41 Dose: 60 mg Documented by: Duloxetine HCl (Cymbalta) 30 mg PO DAILY [facility] Last Admin: 09/04/19 07:42 Dose: 30 mg Documented by: Enoxaparin Sodium (Lovenox) 40 mg SC DAILY@0600 [facility] Last Admin: 09/04/19 06:59 Dose: 40 mg Documented by: Gabapentin (Neurontin) 300 mg PO 4X/DAYCM [facility] Last Admin: 09/04/19 07:39 Dose: 300 mg Documented by: Glipizide (Glucotrol) 15 mg PO DAILY@0730 [facility] Last Admin: 09/04/19 07:39 Dose: 15 mg Documented by: Hydromorphone HCl (Dilaudid Inj) 1 mg IV Q3H PRN PRN PRN Reason: Pain Score 6-10/10 Last Admin: 09/04/19 07:37 Dose: 1 mg Documented by: Hydromorphone HCl (Dilaudid Tablet) 2 - 4 mg PO Q3H PRN PRN PRN Reason: Pain Score 4-5/10 Last Admin: 09/04/19 05:51 Dose: 4 mg Documented by: Hydroxyzine Pamoate (Vistaril Pamoate Capsule) 100 mg PO TID [facility] Last Admin: 09/04/19 05:52 Dose: 100 mg Documented by: Ampicillin Sodium/Sulbactam (Sodium 3 gm/ Sodium Chloride) 112 mls @ 150 mls/hr IV Q6 [facility] Last Infusion: 09/04/19 06:42 Dose: Infused Documented by: Lactated Ringer's () 1,000 mls @ 60 mls/hr IV .[id number] [facility] Last Infusion: 09/04/19 07:00 Dose: 60 mls/hr Documented by: Influenza Virus Vaccine Quadrival (Flucelvax /Fluzone ) 0.5 ml IM .ONCE ONE Stop: 09/04/19 10:01 Insulin Glargine (Lantus (Bkc)) 10 units SC QHS [facility] Last Admin: 09/03/19 22:39 Dose: 5 u Documented by: Insulin Human Lispro (Humalog Kwikpen (Bk)) 0 unit SC ACHS [facility]; Protocol Last Admin: 09/04/19 07:01 Dose: 1 u Documented by: [place] Carbonate ([place] Carbonate) 300 mg PO TID [facility] Last Admin: 09/04/19 05:52 Dose: 300 mg Documented by: Lubiprostone (Amitiza) 24 mcg PO BID [facility] Last Admin: 09/04/19 07:42 Dose: 24 mcg Documented by: Meloxicam (Mobic) 7.5 mg PO DAILY [facility] Last Admin: 09/04/19 07:44 Dose: 7.5 mg Documented by: Metformin HCl (Glucophage) 1,000 mg PO BIDCM [facility] Last Admin: 09/04/19 07:39 Dose: 1,000 mg Documented by: Nicotine (Nicoderm Cq ([facility])) 21 mg TRANSDERM. DAILY [facility] Last Admin: 09/04/19 07:40 Dose: 21 mg Documented by: Olanzapine (Zyprexa) 10 mg PO DAILY [facility] Last Admin: 09/04/19 07:44 Dose: 10 mg Documented by: Olanzapine (Zyprexa) 5 mg PO DAILY [facility] Last Admin: 09/04/19 07:44 Dose: 5 mg Documented by: Ondansetron HCl (Zofran) 4 mg IV Q6H PRN PRN PRN Reason: NAUSEA Last Admin: 09/04/19 03:11 Dose: 4 mg Documented by: Pantoprazole Sodium (Protonix) 20 mg PO DAILY [facility] Last Admin: 09/04/19 07:40 Dose: 20 mg Documented by: Promethazine HCl (Phenergan Tablet) 25 mg PO Q4H PRN PRN PRN Reason: NAUSEA/VOMITING Sodium Chloride () 5 - 15 ml IV UD PRN PRN Reason: SALINE FLUSH Last Admin: 09/04/19 03:11 Dose: 10 ml Documented by: Spironolactone (Aldactone) 100 mg PO DAILY [facility] Last Admin: 09/04/19 07:41 Dose: 100 mg Documented by: Tizanidine HCl (Zanaflex) 4 mg PO 4X/DAY [facility] Last Admin: 09/04/19 07:43 Dose: 4 mg Documented by: Medical Necessity - Tobacco Use Smoking Status: Current every day smoker Assessment/Plan All Active Problems (Last Reviewed 08/27/19 @ 10:40 by Agueda Bahena) Abnormal uterine bleeding (Acute) Open wound of right axillary region with complication (Acute) Abscess of neck (Acute) Open wound involving head with neck, complicated (Acute) Unspecified open wound of unspecified part of head, subsequent encounter (Acute) Unspecified open wound of unspecified part of neck, subsequent encounter (Acute) Folliculitis (Acute) Abscess, scalp (Acute) Muscle spasms of neck (Acute) Cellulitis of right hand (Acute) Cat bite (Acute) Cat bite of right hand with infection (Acute) Abscess of dorsum of right hand (Acute) Necrotizing soft tissue infection (Acute) History of section (Acute) History of tonsillectomy (Acute) Cat scratch of left hand with infection (Acute) Cat scratch of right hand with infection (Acute) Cat scratch (Acute) Open wound of left axillary region (Acute) Abscess of sternal region (Acute) Open wound of chest wall, complicated (Acute) Abscess of breast (Acute) 1. DM2: * stable, fairly well-controlled * continue with glargine, metformin, prandial insulin 2. GERD: chronic. continue with PPI. 3. Non-healing right axillary hydradenitis: s/p debridement on 09/03. Mgmt per PRS 4. Disposition: patient medically stable for discharge. Plan is for discharge today. Code Visit Inpatient E&M: 08835 Subs Hosp L2
[2019-09-04 11:16] LABS: Bedside Glucose 253 mg/dL (70-110)
--- NOTE | 2019-09-04 12:18 | PCM.PN.SRG ---
- Physical Exam General: Alert, Oriented x3, Cooperative HEENT: Atraumatic Oral: Moist Mucosa Lungs: Normal air movement Extremities: No edema, Capillary Refill Less than 3 Seconds, Tenderness - right axilla and upper arm, especially with movement Skin: Ulcer/ Wound - Right axilla with SYLVIA NWPT intact, MATILDA wrap for compression in place Neurological: Neuro grossly intact Psych/Mental Status: Normal Affect, Appropriate Vital Signs Temp Pulse Resp BP Pulse Ox 97.9 F 84 18 105/66 94 09/04/19 08:30 09/04/19 08:30 09/04/19 08:30 09/04/19 08:30 09/04/19 08:30 Oxygen Delivery Method Room Air Weight: 230 lb Body Mass Index (BMI) 38.2 Finger Stick Blood Glucose 146 Intake and Output for Last 24 Hours 09/02/19 09/03/19 09/04/19 23:59 23:59 23:59 Intake Total 2631 / 2631 1835 / 1835 Output Total 0 / 0 70 / 70 Balance 2631 / 2631 1765 / 1765 Microbiology Past 72 Hours 09/03/19 08:30 Gram Stain - Final Tissue - Other Wound Culture - Preliminary Gram positive organism POC Glucose 09/04/19 09/04/19 09/03/19 11:08 06:55 22:22 POC Glucose 253 H 156 H 146 H 09/03/19 09/03/19 17:04 13:13 POC Glucose 203 H 124 H Medical Necessity - Tobacco Use Smoking Status: Current every day smoker Assessment/Plan All Active Problems (Last Reviewed 08/27/19 @ 10:40 by Agueda Bahena) Abnormal uterine bleeding (Acute) Open wound of right axillary region with complication (Acute) Abscess of neck (Acute) Open wound involving head with neck, complicated (Acute) Unspecified open wound of unspecified part of head, subsequent encounter (Acute) Unspecified open wound of unspecified part of neck, subsequent encounter (Acute) Folliculitis (Acute) Abscess, scalp (Acute) Muscle spasms of neck (Acute) Cellulitis of right hand (Acute) Cat bite (Acute) Cat bite of right hand with infection (Acute) Abscess of dorsum of right hand (Acute) Necrotizing soft tissue infection (Acute) History of section (Acute) History of tonsillectomy (Acute) Cat scratch of left hand with infection (Acute) Cat scratch of right hand with infection (Acute) Cat scratch (Acute) Open wound of left axillary region (Acute) Abscess of sternal region (Acute) Open wound of chest wall, complicated (Acute) Abscess of breast (Acute) Post op #1 Patient is resting comfortably in bed. She states her pain is well controlled. Her SYLVIA NWPT dressing is intact. It was changed earlier today due to the increased drainage she was having from her right axillary skin graft site. The phlebotomists were unable to draw her lab work. I tried and was also unsuccessful. After speaking with Dr. Boswell, I will cancel the lab work. She should be discharged later today. She will follow up next week to have the skin graft evaluated.
--- NOTE | 2019-09-04 13:55 | DCINST_ITS ---
You will use the following diet at home:: Calorie/Carbohydrate Controlled (specify 1200, 1400, etc), Other - encourage nutritional supplementation with protein to help the healing process. Discharge Activity: May Not Shower - until the drain is removed and after the SYLVIA device is removed from the right axilla. May shower in (days): 10 - after the drain is removed and after the SYLVIA device is removed from the right axilla. Weight Bearing Status: Weight bearing as tolerated Keep extremity elevated above heart level: Right Arm Call your doctor if your incision/area has: Continuous Slow Oozing, Sudden Increased Bleeding, Increased Pain/ Swelling, Increased Redness, Foul Smelling Discharge, Swelling at the incision site, - - if the SYLVIA device malfunctions and is blinking red. Call your doctor if you observe: Fever of 101 or Higher, Coldness, Increased Pain, Shortness of breath, Chest pain, Calf discomfort, Uncontrolled pain Change Dressing in (Days):: 7 - will change right axilla SYLVIA dressing at wound center. Remove Dressing in (days):: 2 - may remove the right flank dressing in two days. Reapply dry dressing daily. Cleanse incision/area with: - - may get incision and skin graft wet in the shower after the drain is removed and the SYLVIA device is removed. Drain: Suction - zak drain to bulb suction. empty and record output daily. Allergies/Adverse Reactions: Allergies lamotrigine [From Lamictal] Allergy (Mild, Verified 09/03/19 06:57) Rash adhesive tape Allergy (Verified 09/03/19 06:57) Rash Medications to take at Discharge Clonidine HCl [Catapres] 0.1 mg PO DAILY PRN PRN 01/18/14 Duloxetine Hcl [Cymbalta] 60 mg PO DAILY 01/18/14 Tizanidine HCl [Zanaflex] 4 mg PO 4X/DAY 01/18/14 glipiZIDE [Glucotrol] 15 mg PO DAILY@0730 01/18/14 metFORMIN HCl [Glucophage] 1,000 mg PO BIDCM 01/18/14 Meloxicam [Mobic] 7.5 mg PO DAILY 01/14/16 Spironolactone [Aldactone] 100 mg PO DAILY 01/14/16 [place]ne Carbonate [[place] Carbonate ER] 300 mg PO TID 05/10/16 gabapentin 300 mg capsule 300 mg PO 4X/DAY cap 12/01/17 Lubiprostone [Amitiza] 24 mcg PO BID 01/16/18 Omeprazole [Prilosec] 20 mg PO DAILY 01/16/18 insulin aspart U-100 100 unit/mL subcutaneous solution See Protocol SC TIDCM ml 02/14/18 Atorvastatin Calcium 20 mg PO QHS 06/21/18 Albuterol Sulfate [Ventolin Hfa] 1 - 2 inhaler INHALATION 4X/DAY PRN PRN 06/30/18 Buspirone HCl 20 mg PO TID 06/30/18 Duloxetine Hcl [Cymbalta] 30 mg PO DAILY 06/30/18 olanzapine 15 mg tablet 15 mg PO DAILY 03/28/19 Insulin Glargine [Lantus SoloStar Pen] 10 units SUBCUT QHS 07/13/19 Insulin Lispro [Humalog KwikPen] See Protocol SUBCUT ACHS insuln.pen 07/22/19 hydroxyzine pamoate 100 mg capsule 100 mg PO TID 08/27/19 Albuterol Aerosols [Ventolin Aerosols] 2.5 mg INHALATION Q4H PRN PRN vial.neb. 09/04/19 Diazepam [Valium] 5 mg PO TID PRN PRN #20 tab 09/04/19 Docusate Sodium [Colace] 100 mg PO BID #60 cap 09/04/19 Doxycycline Monohydrate 100 mg PO BID 30 Days #60 tab 09/04/19 HYDROmorphone tablet [Dilaudid] 2 mg PO .Q4 HOURS PRN PRN 7 Days #40 tab 09/04/19 Nicotine [Nicoderm Cq] 21 mg TRANSDERM. DAILY patch 09/04/19 Pantoprazole Sodium [Protonix] 20 mg PO DAILY tablet 09/04/19 proMETHazine tablet [Phenergan tablet] 25 mg PO 4X/DAY PRN PRN #30 tab 09/04/19 The following prescriptions were given: Docusate Sodium [Colace] 100 mg PO BID #60 cap Prescription Printed HYDROmorphone tablet [Dilaudid] 2 mg PO .Q4 HOURS PRN PRN 7 Days #40 tab PRN Reason: Pain Score 4-5/10 Prescription Printed Doxycycline Monohydrate 100 mg PO BID 30 Days #60 tab Prescription Printed proMETHazine tablet [Phenergan tablet] 25 mg PO 4X/DAY PRN PRN #30 tab PRN Reason: NAUSEA/VOMITING Prescription Printed Diazepam [Valium] 5 mg PO TID PRN PRN #20 tab PRN Reason: Spasms Prescription Printed Primary Care Physician: Aj tSaley MD [Primary Care Provider] - Test Results: Test results from this visit will be discussed in further detail at your follow- up appointment, if applicable. Please Follow Up With: Phoenix Boswell MD When: tuesday09/10/19 at [facility] at 1230 pm. Proposed Discharge Date: 09/04/19
[2019-09-04 14:30] VITALS: BP 112/64; PULSE 87; RESP 18; TEMP 36.5; O2SAT 98
--- NOTE | 2019-09-04 14:53 | CASEMGMT ---
DOMINICK BARRIGA in to discuss [employer] form with patient. DOMINICK BARRIGA explained and reviewed [employer] form with patient, patient voiced understanding. Patient signed [employer] form. Copy given to patient, original filed in chart.
[2019-09-04] MEDS: diazePAM 5 MG Tablet PO (14:57)
== END 2019-09-04 15:30 | disposition home or self-care (01) ==
LOC: SDC 10:39
PROVIDERS: Admitting Provider Surgery; Family Provider Family Medicine; PCP Family Medicine; Referring Provider Surgery
PROC: (CPT 15002; principal; 2019-09-03 07:15)
DX: L73.2 Hidradenitis suppurativa (principal); E11.40 Type 2 diabetes mellitus with diabetic neuropathy, unspecified; E11.65 Type 2 diabetes mellitus with hyperglycemia; E66.01 Morbid (severe) obesity due to excess calories; K21.9 Gastro-esophageal reflux disease without esophagitis; E78.5 Hyperlipidemia, unspecified; Z23 Encounter for immunization; F31.9 Bipolar disorder, unspecified; F41.9 Anxiety disorder, unspecified; M19.90 Unspecified osteoarthritis, unspecified site; E11.622 Type 2 diabetes mellitus with other skin ulcer; L97.812 Non-pressure chronic ulcer of other part of right lower leg with fat layer exposed; G89.29 Other chronic pain; J45.909 Unspecified asthma, uncomplicated; I10 Essential (primary) hypertension; F17.210 Nicotine dependence, cigarettes, uncomplicated; Z68.38 Body mass index [BMI] 38.0-38.9, adult; Z71.3 Dietary counseling and surveillance; Z79.899 Other long term (current) drug therapy; Z79.4 Long term (current) use of insulin
CPT/HCPCS: 00400; 15002; 15003; 15240; 15241; 82962; 87070; 87075; 87077; 87102; 87176; 87186; 87205; 87206; 88304; 94640; 96365; 96366; 96372; 96375; 96376; 99218; 99406; J7120; 90686; A4216; G0378; G0379; J0295; J2405

== ENCOUNTER 2019-09-17 13:15 | Outpatient (RCR) | payer MEDICARE, SELFPAY ==
[2019-08-21 01:11] VITALS: BP 106/64; PULSE 93; RESP 16; TEMP 37.1
[2019-08-27 11:59] VITALS: BP 132/84; PULSE 109; RESP 16; BMI 38.2
--- NOTE | 2019-08-27 23:15 | PN.PCM_ITS ---
Type of Wound Date of Service: 08/27/19 Chief Complaint: Nonhealing recurrent hidradenitis ulcer right axilla. History of Wound: Surgery 07/20/19 - Surgical preparation right axilla with excision painful recurrent hidradenitis (117 cm2). Wound care - Silver. Operative culture - negative. She was treated perioperatively with Doxycycline. Prealbumin from 07/21/19 was 34.1. Encourage nutritional supplementation with protein to help the healing process. HgbA1c from 07/21/19 was 7.1. In order to proceed with elective skin grafting, the HgbA1c needs to be less than 8. Today she denies fever. Her appetite is good. Her surgery for operative debridement and skin grafting has been scheduled for next week, 09/03/19. Progress of Wound: Improved. - Physical Exam Vital Signs Temp Pulse Resp BP 98.7 F 109 H 16 132/84 H 08/21/19 01:11 08/27/19 11:59 08/27/19 11:59 08/27/19 11:59 Wound Measurements and Assessment WC - Nurse 1 - General Ulcer Measurement Start: 08/27/19 11:59 Freq: Status: Active Protocol: Activity Type Activity Date Activity User E-Sign Co-Sign Detail Recorded Client Recorded Date Recorded By Document 08/27/19 11:59 MW [id number] 08/27/19 12:01 MW 08/27/19 11:59 Wound Center Nurse 1 [Ulcer Assessment] #8 right axilla hidradenitis -Combined with other wound No -Current Size (cm) - Length 1.7 -Current Size (cm) - Width 7.2 -Current Size (cm) - Depth 0.1 -Total Square Cm 12.24 -Photo Taken No -Epithelialization Small 1-33% -Tunneling No -Undermining/Tunneling No -Circular Undermining No -Exudate Amt Medium -Exudate Type Serous -Wound Margin Flat & Intact -Granulation Amt Large (67-100%) -Granulation Quality [place] -Slough/Fibrin Yes -Necrosis Amt Small (1-33%) -Necrotic Tissue Type Adherent Slough -Structure Exposed N/A -Texture (Lakisha-wound Skin Appearance) Assessed, Scarring -Moisture (Lakisha-wound Skin Appearance No Abnormality, ) Assessed -Color (Lakisha-wound Skin Appearance) No Abnormality, Assessed -Temperature (Lakisha-wound Skin No Abnormality Appearance) (Pt Warm) -Tenderness on Palpation (Lakisha-wound Yes Skin Appearance) -Ulcer Cleansing soap and water -Foul Odor after Cleansing No -Anesthetic Used 4% Lidocaine Solution,5% Lidocaine Gel [Edema Assessment] -Lower Limb Edema Present No WC - Nurse 2 - General Ulcer CM Notes Start: 08/27/19 11:59 Freq: Status: Active Protocol: Activity Type Activity Date Activity User E-Sign Co-Sign Detail Recorded Client Recorded Date Recorded By Document 08/27/19 12:48 [id number] 08/27/19 12:48 08/27/19 12:48 Wound Center Nurse 2 [Procedure/Treatment] #8 right axilla hidradenitis -Time 12:48 -Correct Patient Yes -Correct Side, Site, Position Yes -Correct Procedure Yes -Procedure Performed Yes -Type of Procedure Debridement -Clinical Debridement Subcutaneous -Post Debridement Size (cm) - Length 1.2 -Post Debridement Size (cm) - Width 6.5 -Post Debridement Size (cm) - Depth 0.3 -Total Square Cm 7.80 -Wound/Ulcer Outcome Not Healed -Ulcer Cleansing Rinsed/ Irrigated with Saline -Foul Odor after Cleansing No -Bioengineered Tissue No -Bleeding Controlled with Pressure -Offloading No -Treatment Response Procedure Tolerated Well [See Physician Procedure note for Specifics] Pain Scale: 0-10 Numeric [Pain] -Is Patient Pain Free? Yes Debridement Note Post-Debridement Measurements/Treatment WC - Nurse 2 - General Ulcer CM Notes Start: 08/27/19 11:59 Freq: Status: Active Protocol: Activity Type Activity Date Activity User E-Sign Co-Sign Detail Recorded Client Recorded Date Recorded By Document 08/27/19 12:48 [id number] 08/27/19 12:48 08/27/19 12:48 Wound Center Nurse 2 #8 right axilla hidradenitis -Time 12:48 -Correct Patient Yes -Correct Side, Site, Position Yes -Correct Procedure Yes -Procedure Performed Yes -Type of Procedure Debridement -Clinical Debridement Subcutaneous -Post Debridement Size (cm) - Length 1.2 -Post Debridement Size (cm) - Width 6.5 -Post Debridement Size (cm) - Depth 0.3 -Total Square Cm 7.80 -Wound/Ulcer Outcome Not Healed -Ulcer Cleansing Rinsed/ Irrigated with Saline -Foul Odor after Cleansing No -Bioengineered Tissue No -Bleeding Controlled with Pressure -Offloading No -Treatment Response Procedure Tolerated Well Pain Scale: 0-10 Numeric Is Patient Pain Free? Yes Wound debrided: #8 Right axilla. Laterality: Right Wound Grade/Stage: 2. Type of Debridement: Excisional debridement Anesthesia Used: 4% Lidocaine Solution Depth: Down to and including healthy tissue, in the subcutaneous layer Percentage of wound debrided: 100 Instrument Used: 3mm curette Tissue Removed: subcutaneous tissue. Severity: Fat Layer Exposed Amount of bleeding with debridement: Mild Bleeding Controlled with: Pressure Patient tolerated procedure well Assessment/Plan Assessment: 1. Nonhealing recurrent hidradenitis ulcer right axilla. 2. Smoker. 3. Diabetes mellitus. 4. s/p surgical preparation right axilla with excision painful recurrent hidradenitis (117 cm2). Plan: Continue Silver dressing changes daily. Operative culture was negative. She was treated perioperatively with Doxycycline and has finished them. Her right shoulder is a little stiff but has improved with range of motion exercises. Encourage range of motion exercises to minimize stiffness. OT has been ordered. Her Prealbumin from 07/21/19 was 34.1. Encourage nutritional supplementation with protein to help the healing process. Her HgbA1c from 07/21/19 was 7.1. For any elective skin graft surgery, the HgbA1c needs to be less than 8. The patient is interested in delayed wound closure with skin grafting because it is easier to maintain range of motion exercises with a skin graft. The skin graft surgery is scheduled for next 09/03/19. Renewed her Percocet for pain (14 tabs). Followup 3 weeks. Plan: Continue Silver dressing changes daily. Will stop the VAC since it was on a VAC holiday. Operative culture was negative. She was treated perioperatively with Doxycycline. That can be stopped. Her right shoulder is a little stiff but has improved with range of motion exercises. Encourage range of motion exercises to minimize stiffness. If it is a persistent problem, will set her up with OT for range of motion exercises. her Prealbumin from 07/21/19 was 34.1. Encourage nutritional supplementation with protein to help the healing process. her HgbA1c from 07/21/19 was 7.1. For any elective skin graft surgery, the HgbA1c needs to be less than 8. The patient is interested in delayed wound closure with skin grafting because she had one placed under the left axilla in the past. She states it is easier to maintain range of motion exercises with a skin graft. Will consider the skin graft next month after more healing has occurred in the right axilla. Renewed her Percocet for pain (30 tabs). Followup one week. Encouraged the patient to stop smoking as it may have deleterious effects on wound healing.
[2019-09-10 12:50] VITALS: BP 111/87; PULSE 99; RESP 20; TEMP 37.1; BMI 38.2
--- NOTE | 2019-09-10 14:25 | PCM.WC.PN ---
(1) Non-pressure chronic ulcer of skin of other sites with fat layer exposed Status: Chronic Code(s): L98.492 - Non-pressure chronic ulcer of skin of other sites with fat layer exposed (2) Open wound of right axillary region with complication Status: Chronic Code(s): S41.101A - Unspecified open wound of right upper arm, initial encounter (3) Hidradenitis suppurativa Status: Chronic Code(s): L73.2 - Hidradenitis suppurativa Comment: Painful recurrent right axillary hidradenitis 6 mm hidradenitis right posterior earlobe 4 cm recurrent hidradenitis posterior neck and occipital scalp (4) Diabetes Status: Chronic Code(s): E11.9 - Type 2 diabetes mellitus without complications Comment: type 2 Dx : 2012 Last exacerbation : DKA : never Hypoglycemic episode : never ER visit : 01/08 - 500+ (5) Smoker Status: Chronic Code(s): F17.200 - Nicotine dependence, unspecified, uncomplicated Comment: F17.200 Type of Wound Date of Service: 09/10/19 Chief Complaint: Nonhealing recurrent hidradenitis ulcer right axilla. History of Wound: Surgery 07/20/19 - Surgical preparation right axilla with excision painful recurrent hidradenitis (117 cm2). Wound care - Silver. Operative culture - negative. She was treated perioperatively with Doxycycline. Prealbumin from 07/21/19 was 34.1. Encourage nutritional supplementation with protein to help the healing process. HgbA1c from 07/21/19 was 7.1. In order to proceed with elective skin grafting, the HgbA1c needs to be less than 8. On 09/03/19 she underwent a surgical preparation right axilla with excisional debridement nonhealing hidradenitis ulcer and FTSG reconstruction from the right flank (35 cm2) and placement of Amniofill placental connective tissue powder, 500mg and placement of SYLVIA NPWT device. Her pathology showed inflammation. Operative cultures showed Staphylococcus aureas and Corynebacterium striatum that are sensitive to the Doxycycline that she was placed on upon discharge. Today she denies fever. Her appetite is good. Progress of Wound: Improved. - Physical Exam Vital Signs Temp Pulse Resp BP 98.7 F 99 20 H 111/87 H 09/10/19 12:50 09/10/19 12:50 09/10/19 12:50 09/10/19 12:50 General: Alert, Oriented x3, Cooperative HEENT: Atraumatic Oral: Moist Mucosa Lungs: Normal air movement Cardiovascular: Regular rate Abdomen: Soft Extremities: Capillary Refill Less than 3 Seconds Skin: Ulcer/ Wound - Right axilla skin graft intact, slight moisture Wound Measurements and Assessment WC - Nurse 1 - General Ulcer Measurement Start: 08/27/19 11:59 Freq: Status: Active Protocol: Activity Type Activity Date Activity User E-Sign Co-Sign Detail Recorded Client Recorded Date Recorded By Document 09/10/19 12:50 DL [id number] 09/10/19 13:03 DL 09/10/19 12:50 Wound Center Nurse 1 [Ulcer Assessment] #8 right axilla hidradenitis -Current Size (cm) - Length 2.8 -Current Size (cm) - Width 11 -Current Size (cm) - Depth 0.1 -Total Square Cm 30.8 -Photo Taken Yes -Exudate Amt None Present -Wound Margin Flat & Intact -Structure Exposed N/A -Texture (Lakisha-wound Skin Appearance) Localized Edema ,Scarring -Moisture (Lakisha-wound Skin Appearance No Abnormality ) -Color (Lakisha-wound Skin Appearance) No Abnormality -Temperature (Lakisha-wound Skin No Abnormality Appearance) (Pt Warm) -Tenderness on Palpation (Lakisha-wound No Skin Appearance) -Ulcer Cleansing Wound Cleanser -Foul Odor after Cleansing No Musculoskeletal: No Tenderness to Palpation of Joints or Extremities Neurological: Neuro grossly intact Psych/Mental Status: Normal Affect, Appropriate Debridement Note Post-Debridement Measurements/Treatment WC - Nurse 2 - General Ulcer CM Notes Start: 08/27/19 11:59 Freq: Status: Active Protocol: Activity Type Activity Date Activity User E-Sign Co-Sign Detail Recorded Client Recorded Date Recorded By Document 08/27/19 12:48 [email or web address] [id number] 08/27/19 12:48 MUMTAZ 08/27/19 12:48 Wound Center Nurse 2 #8 right axilla hidradenitis -Time 12:48 -Correct Patient Yes -Correct Side, Site, Position Yes -Correct Procedure Yes -Procedure Performed Yes -Type of Procedure Debridement -Clinical Debridement Subcutaneous -Post Debridement Size (cm) - Length 1.2 -Post Debridement Size (cm) - Width 6.5 -Post Debridement Size (cm) - Depth 0.3 -Total Square Cm 7.80 -Wound/Ulcer Outcome Not Healed -Ulcer Cleansing Rinsed/ Irrigated with Saline -Foul Odor after Cleansing No -Bioengineered Tissue No -Bleeding Controlled with Pressure -Offloading No -Treatment Response Procedure Tolerated Well Pain Scale: 0-10 Numeric Is Patient Pain Free? Yes No debridement was completed today Assessment/Plan Assessment: 1. Nonhealing recurrent hidradenitis ulcer right axilla. 2. Smoker. 3. Diabetes mellitus. 4. s/p surgical preparation right axilla with excision painful recurrent hidradenitis (117 cm2). Plan: Continue Silver dressing changes daily. SYLVIA was removed a few days after surgery because of the large amount of drainage that she was experiencing. On 09/03/19 she underwent a surgical preparation right axilla with excisional debridement nonhealing hidradenitis ulcer and FTSG reconstruction from the right flank (35 cm2) and placement of Amniofill placental connective tissue powder, 500mg and placement of SYLVIA NPWT device. Her pathology showed inflammation. Operative cultures showed Staphylococcus aureas and Corynebacterium striatum that are sensitive to the Doxycycline that she was placed on upon discharge. Leaving the drain in right donor site because of her having 50-75 cc of drainage per day. Will remove next week. Her right shoulder is a little stiff but has improved with range of motion since having the skin graft. Encourage range of motion exercises to minimize stiffness. OT has been ordered. Her Prealbumin from 07/21/19 was 34.1. Encourage nutritional supplementation with protein to help the healing process. Her HgbA1c from 07/21/19 was 7.1. For any elective skin graft surgery, the HgbA1c needs to be less than 8. Renewed her Percocet (28). [facility] report reviewed.Followup one week. Encouraged the patient to stop smoking as it may have deleterious effects on wound healing. Code Visit 58119
[2019-09-17 13:31] VITALS: BP 135/68; PULSE 121; RESP 18; TEMP 37.2; BMI 38.2
--- NOTE | 2019-09-17 18:40 | PN.PCM_ITS ---
Type of Wound Date of Service: 09/17/19 Chief Complaint: Nonhealing recurrent hidradenitis ulcer right axilla with skin grafting and early graft compromise. History of Wound: Surgery 09/03/19 - surgical preparation right axilla with excisional debridement nonhealing hidradenitis ulcer and FTSG reconstruction from the right flank (35 cm2) and placement of Amniofill placental connective tissue powder, 500mg and placement of SYLVIA NPWT device. Surgery 07/20/19 - surgical preparation right axilla with excision painful recurrent hidradenitis (117 cm2). Wound care - Silver. Operative culture from 09/03/19 - Staphylococcus aureus and Corynebacterium striatum. She was placed on Doxycycline. Pathology - no carcinoma seen. Prealbumin from 07/21/19 was 34.1. Encourage nutritional supplementation with protein to help the healing process. HgbA1c from 07/21/19 was 7.1. In order to proceed with elective skin grafting, the HgbA1c needs to be less than 8. Today she denies fever. Her appetite is good. She has good range of motion of her right shoulder. Progress of Wound: Some early skin graft compromise right axilla. - Physical Exam Vital Signs Temp Pulse Resp BP 98.9 F 121 H 18 135/68 H 09/17/19 13:31 09/17/19 13:31 09/17/19 13:31 09/17/19 13:31 Skin: Incision - right flank donor incision is dry and intact and healing satisfactory. Drainage has been less than 20 ml per day and the drain was removed., - - right axillary skin graft shows some early compromise, about 20%. The rest of the skin graft shows good adherence. The areas of graft compromise show good granulation tissue. Wound Measurements and Assessment WC - Nurse 1 - General Ulcer Measurement Start: 08/27/19 11:59 Freq: Status: Active Protocol: Activity Type Activity Date Activity User E-Sign Co-Sign Detail Recorded Client Recorded Date Recorded By Document 09/17/19 13:31 DL [id number] 09/17/19 13:36 DL 09/17/19 13:31 Wound Center Nurse 1 [Ulcer Assessment] #8 right axilla hidradenitis -Current Size (cm) - Length 2.5 -Current Size (cm) - Width 10 -Current Size (cm) - Depth 0.1 -Total Square Cm 25.0 -Photo Taken No -Exudate Amt None Present -Wound Margin Distinct, Outline Attached -Granulation Amt None Present (0 %) -Necrosis Amt Large (67-100%) -Necrotic Tissue Type Adherent Slough -Structure Exposed N/A -Texture (Lakisha-wound Skin Appearance) Scarring -Moisture (Lakisha-wound Skin Appearance No Abnormality ) -Color (Laiksha-wound Skin Appearance) No Abnormality -Temperature (Lakisha-wound Skin No Abnormality Appearance) (Pt Warm) -Tenderness on Palpation (Lakisha-wound No Skin Appearance) -Ulcer Cleansing Rinsed/ Irrigated with Saline -Foul Odor after Cleansing No -Anesthetic Used 4% Lidocaine Solution,5% Lidocaine Gel - Nurse 2 - General Ulcer CM Notes Start: 08/27/19 11:59 Freq: Status: Active Protocol: Activity Type Activity Date Activity User E-Sign Co-Sign Detail Recorded Client Recorded Date Recorded By Document 09/17/19 14:17 [id number] 09/17/19 14:22 09/17/19 14:17 Wound Center Nurse 2 [Procedure/Treatment] -Time 14:18 -Correct Patient Yes -Correct Side, Site, Position Yes -Correct Procedure Yes -Procedure Performed Yes -Type of Procedure Debridement -Clinical Debridement Selective -Post Debridement Size (cm) - Length 2.4 -Post Debridement Size (cm) - Width 10.0 -Post Debridement Size (cm) - Depth 0.2 -Total Square Cm 24.00 -Wound/Ulcer Outcome Not Healed -Ulcer Cleansing Rinsed/ Irrigated with Saline -Foul Odor after Cleansing No -Bioengineered Tissue No -Offloading No -Treatment Response Procedure Tolerated Well [See Physician Procedure note for Specifics] Pain Scale: 0-10 Numeric [Pain] -Is Patient Pain Free? Yes Debridement Note Post-Debridement Measurements/Treatment - Nurse 2 - General Ulcer CM Notes Start: 08/27/19 11:59 Freq: Status: Active Protocol: Activity Type Activity Date Activity User E-Sign Co-Sign Detail Recorded Client Recorded Date Recorded By Document 08/27/19 12:48 [id number] 08/27/19 12:48 Document 09/17/19 14:17 [id number] 09/17/19 14:22 08/27/19 09/17/19 12:48 14:17 Wound Center Nurse 2 #8 right axilla hidradenitis -Time 12:48 14:18 -Correct Patient Yes Yes -Correct Side, Site, Position Yes Yes -Correct Procedure Yes Yes -Procedure Performed Yes Yes -Type of Procedure Debridement Debridement -Clinical Debridement Subcutaneous Selective -Post Debridement Size (cm) - Length 1.2 2.4 -Post Debridement Size (cm) - Width 6.5 10.0 -Post Debridement Size (cm) - Depth 0.3 0.2 -Total Square Cm 7.80 24.00 -Wound/Ulcer Outcome Not Healed Not Healed -Ulcer Cleansing Rinsed/ Rinsed/ Irrigated with Irrigated with Saline Saline -Foul Odor after Cleansing No No -Bioengineered Tissue No No -Bleeding Controlled with Pressure -Offloading No No -Treatment Response Procedure Procedure Tolerated Well Tolerated Well Pain Scale: 0-10 Numeric Is Patient Pain Free? Yes Yes Wound debrided: #8 Right axilla. Laterality: Right Wound Grade/Stage: 2. Type of Debridement: Selective debridement Anesthesia Used: 4% Lidocaine Solution Depth: Down to and including healthy tissue - some loose nonviable graft was debrided. Percentage of wound debrided: 20 Instrument Used: 5mm curette, - - scissors Tissue Removed: some loose nonviable graft was debrided and removed. Severity: Limited To Skin Breakdown - some loose nonviable graft was debrided. Amount of bleeding with debridement: Mild Bleeding Controlled with: Pressure Patient tolerated procedure well, - - About 20% graft compromise. Good granulation tissue seen in those areas of compromise. The rest of the graft shows good adherence. Because of the graft compromise, a wound culture was obtained today. Assessment/Plan Active Problems (Last Reviewed 08/27/19 @ 10:40 by Agueda Bahena) JOAN (generalized anxiety disorder) (Chronic) Borderline personality disorder (Chronic) Suicidal ideation (Acute) Bipolar disorder (Acute) Asthma (Acute) Assessment: 1. Nonhealing recurrent hidradenitis ulcer right axilla. 2. Smoker. 3. Diabetes mellitus. 4. s/p surgical preparation right axilla with excisonal debridement nonhealing hidradenitis ulcer and FTSG reconstruction from the rright flank (35 cm2) and placement of AmnioFill Placental Connective Tiss ue Powder, 500 mg and placement of SYLVIA NPWT device. 5. Early compromise skin graft right axilla. Plan: There is some early compromise to the skin graft right axilla. About 20%. The surgical clips were removed today. Some of the nonadherent graft was sharply debrided. The rest of the skin graft shows good adherence. In the areas of the graft compromise, there was good granulation tissue seen. Continue Silver dressing changes daily. The right flank drain was removed without problem. A wound culture was obtained today. She is currently on Doxycycline for operative culture that showed Staphylococcus aureus and Corynebacterium striatum. A positive culture may necessitate antibiotic modification. Her right shoulder is showing better mobility as she is able to lift it over her head. Encourage range of motion exercises to minimize stiffness. OT was ordered but not started because of her improvment. Her Prealbumin from 07/21/19 was 34.1. Encourage nutritional supplementation with protein to help the healing process. Her HgbA1c from 07/21/19 was 7.1. For any elective skin graft surgery, the HgbA1c needs to be less than 8. Renewed her Percocet for pain (20 tabs). Followup one week. Encouraged the patient to stop smoking as it may have deleterious effects on wound healing.
== END 2019-09-20 23:59 ==
LOC: WC 13:15
PROVIDERS: Family Provider Family Medicine; PCP Family Medicine; Referring Provider Surgery; Visit Provider Surgery
DX: L73.2 Hidradenitis suppurativa (principal); F17.200 Nicotine dependence, unspecified, uncomplicated; Z98.890 Other specified postprocedural states; L98.492 Non-pressure chronic ulcer of skin of other sites with fat layer exposed; E11.622 Type 2 diabetes mellitus with other skin ulcer
CPT/HCPCS: 11042; 87070; 87075; 87076; 87077; 87186; 87205; 97597; 97598; 99213; G0463

== ENCOUNTER 2019-09-19 23:59 | Emergency (ER) | payer MEDICARE, SELFPAY ==
[2019-09-19 23:59] VITALS: BP 119/70; PULSE 90; RESP 18; TEMP 36.7; O2SAT 95; BMI 38.2
[2019-09-20] VITALS (8 sets, daily range): BP systolic 101–112; BP diastolic 62–69; PULSE 65–88; RESP 12–16; O2SAT 97–98
[2019-09-20] MEDS: Ondansetron ODT 4 MG Tablet 8 MG PO (00:26)
[2019-09-20] MEDS: oxyCODONE 5 MG Tablet PO ×2 (00:26→06:26)
[2019-09-20] MEDS: Ibuprofen 600 MG Tablet PO (00:26)
--- NOTE | 2019-09-20 00:26 | ED.VIS.PSYCH ---
History of Present Illness Chief Complaint: Anxiety Informant: Patient Onset: Today Conflict: - - friends, health Timing: Continuous Current Severity: Severe Maximum Severity: Severe Worsened by: Situational factors, - - increased alcohol use although she hasn't had any today Associated Symptoms: Depressed, Suicidal Thoughts Specific plan (suicidal thought): has considered overdosing on bottle of pills Narrative: Patient has several issues. She has a history of hidradenitis suppurativa, she has had multiple surgeries for this, her last one was 2 weeks ago which was a skin graft taken from her right hip/right lower quadrant and placed in her right axilla, that is rejecting. She is following with Dr. brown for that and has an appointment after this coming weekend. She has had a cold with a sore throat for the past week or so that has been increasing her wheezing in the last couple days, she has asthma. No fevers. She is getting ready to live on her own, currently lives with some roommates that became angry tonight when they found out that she stole some of their alcohol, which she was drinking more of than usual this past week because of anxiety and feeling depressed. She states that the argument put her anxiety over the edge tonight. She has tried taking Vistaril but it did not help. She has considered overdosing on a bottle of pills, she states that she feels worthless and that she has no purpose being around. She has a psychiatrist, she has not seen him this week but does go to her scheduled appointments and is compliant with her medications. - Past Medical History (1) JOAN (generalized anxiety disorder) Status: Chronic (2) Borderline personality disorder Status: Chronic (3) Bilateral carpal tunnel syndrome Status: Chronic Comment: worse on left (4) Bipolar affective Status: Chronic (5) Chronic back pain Status: Chronic (6) Chronic neck pain Status: Chronic (7) Diabetes mellitus type 2, uncontrolled Status: Chronic (8) Hidradenitis suppurativa Status: Chronic Comment: Painful recurrent right axillary hidradenitis 6 mm hidradenitis right posterior earlobe 4 cm recurrent hidradenitis posterior neck and occipital scalp (9) Osteoarthritis Status: Chronic Past Medical History - Allergies and Home Meds Allergies/Adverse Reactions: Allergies lamotrigine [From Lamictal] Allergy (Mild, Verified 09/20/19 00:01) Rash adhesive tape Allergy (Verified 09/20/19 00:01) Rash Primary Care Physician: Aj Staley MD [Primary Care Provider] - Surgical History: tonsillectomy, - - Excisional debridement hydradenitis right axilla Lives: Roommate Smoking Status: Current every day smoker Alcohol: Occasional Drugs: None - Family History Maternal Family History: Family History (Last Reviewed 09/03/19 @ 17:55 by MYRTLE Browning) Grandmother Thyroid disorder Father Diabetes Heart disease Hypertension High cholesterol Mother Heart disease Hypertension High cholesterol Family History: Reports: Heart Disease, Hypertension Paternal Family History: Family History (Last Reviewed 09/03/19 @ 17:55 by MYRTLE Browning) Grandmother Thyroid disorder Father Diabetes Heart disease Hypertension High cholesterol Mother Heart disease Hypertension High cholesterol Family History: Reports: Diabetes, Heart Disease, Hypertension Review of Systems General: Denies: Chills, Fever, Sweats Eyes: Denies: Visual changes - bilaterally, Diplopia ENT: Reports: Rhinorrhea, Sore throat. Denies: Bilateral ear pain Cardiovascular: Denies: Chest pain, Palpitations Respiratory: Reports: Dyspnea - wheezing/asthma, Cough. Denies: Sputum, Dyspnea on exertion Gastrointestinal: Denies: Abdominal pain, Nausea, Vomiting, Diarrhea, Melena, Hematochezia Genitourinary: Denies: Dysuria, Hematuria, Frequency Musculoskeletal: Denies: Neck pain, Back pain, Extremity Pain Skin: Reports: Rash, Wounds - right axilla, painful, no discharge/bleeding/swelling Neurological: Denies: Headache, Weakness, Numbness Psych: Reports: Depression, Anxiety, Suicidal thoughts. Denies: Suicidal ideations Physical Exam Vital Signs/Narrative: Vital Signs Temp Pulse Resp BP Pulse Ox 09/19/19 23:59 98.1 F 90 18 119/70 95 Inital Vital Signs reviewed: Yes General: Well nourished, Well developed Head: Normocephalic, Atraumatic Eyes: Perrl, EOMI ENT: Moist mucous membranes, No rhinorrhea, TM's clear, - - mild POP erythema, no cobblestoning or exudates/edema/trismus. Negative for: Sinus tenderness Neck: Supple, Nontender, No lymphadenopathy Cardiovascular: Regular rate, Regular rhythm, No murmurs, Normal S1, Normal S2. Negative for: Tachycardia Respiratory: No distress, Chest nontender, Wheezing - expiratory, mild, diffuse, symmetric. . Negative for: Rales, Rhonchi Abdomen: Soft, Nontender, Nondistended, Normal bowel sounds, - - RLQ skin graft donor site healing well w/o signs of infection/dehiscence. Back: Nontender, Normal Inspection. Negative for: CVA tenderness Extremities: Nontender, No Edema Skin: Normal color, - - right axillary skin graft granulation tissue, no discharge/abscess. minor erythema around edges of local skin Neurological: Alert, Oriented x3, Cranial nerves II-XII grossly intact, Normal Strength, Normal Sensation, Normal Gait Psych: Normal Speech Pattern, Logical sequential goal directed thoughts, Good Insight, Depressed - tearful at times Diagnostic/Tx/Re-eval Impressions Chest X-Ray 09/20/19 04:27 IMPRESSION: Normal x-ray examination of the chest. Electronically Signed: Dominga Lewis MD at 5:04 EDT , Service support , 09/20/19 04:27 Chest 1 View (Portable) [RAD] Stat Laboratory Results 09/20/19 09/20/19 09/20/19 04:36 04:36 04:36 WBC 15.6 H RBC 3.56 L Hgb 10.6 L Hct 33.1 L MCV 93.0 MCH 29.8 MCHC 32.0 RDW Std Deviation 48.8 H RDW Coeff of Radha 14.3 Plt Count 421 MPV 8.9 Immature Gran % (Auto) 0.800 Neut % (Auto) 62.1 Lymph % (Auto) 30.4 Dougherty % (Auto) 4.7 Eos % (Auto) 1.4 Baso % (Auto) 0.6 Absolute Neuts (auto) 9.7 H Absolute Lymphs (auto) 4.75 H Nucleated RBC % 0 Differential Comment SCANNED Platelet Estimate SLT INC Sodium 135 L Potassium 3.7 Chloride 100 Carbon Dioxide 29.0 Anion Gap 6 BUN 11 Creatinine 1.10 H Estim Creat Clear Calc 64.23 Est GFR (MDRD) Af Amer 73 Est GFR (MDRD) Non-Af 60 BUN/Creatinine Ratio 10.0 Glucose 310 H Calcium 8.3 L Total Bilirubin 0.20 AST 27 ALT 72 H Alkaline Phosphatase 120 H Total Protein 7.0 Albumin 3.2 Globulin 3.8 Albumin/Globulin Ratio 0.8 L Serum , Qual Urine Color Urine Clarity Urine pH Ur Specific [place] Urine Protein Urine Glucose (UA) Urine Ketones Urine Occult Blood Urine Nitrite Urine Bilirubin Urine Urobilinogen Ur Leukocyte Esterase Urine RBC Urine WBC Ur Squamous Epith Cells Urine Bacteria Urine Mucus Urine Opiates Screen Urine Methadone Screen Ur Barbiturates Screen Ur Phencyclidine Scrn Ur Amphetamines Screen U Methamphetamin-MDMA U Benzodiazepines Scrn Urine Cocaine Screen U Cannabinoids Screen Ur Drug Screen Comment Ethyl Alcohol < 3.0 09/20/19 09/20/19 09/20/19 04:36 05:40 05:45 WBC RBC Hgb Hct MCV MCH MCHC RDW Std Deviation RDW Coeff of Radha Plt Count MPV Immature Gran % (Auto) Neut % (Auto) Lymph % (Auto) Dougherty % (Auto) Eos % (Auto) Baso % (Auto) Absolute Neuts (auto) Absolute Lymphs (auto) Nucleated RBC % Differential Comment Platelet Estimate Sodium Potassium Chloride Carbon Dioxide Anion Gap BUN Creatinine Estim Creat Clear Calc Est GFR (MDRD) Af Amer Est GFR (MDRD) Non-Af BUN/Creatinine Ratio Glucose Calcium Total Bilirubin AST ALT Alkaline Phosphatase Total Protein Albumin Globulin Albumin/Globulin Ratio Serum , Qual NEGATIVE Urine Color Yellow Urine Clarity Sl. Cloudy Urine pH 6.5 Ur Specific [place] 1.015 Urine Protein 30 H Urine Glucose (UA) 250 H Urine Ketones 5 H Urine Occult Blood Negative Urine Nitrite Negative Urine Bilirubin Negative Urine Urobilinogen Normal Ur Leukocyte Esterase Negative Urine RBC 0 SEEN Urine WBC 0 SEEN Ur Squamous Epith Cells 0-5 SEEN Urine Bacteria 0 SEEN Urine Mucus 0 SEEN Urine Opiates Screen POSITIVE H Urine Methadone Screen NEGATIVE Ur Barbiturates Screen NEGATIVE Ur Phencyclidine Scrn NEGATIVE Ur Amphetamines Screen NEGATIVE U Methamphetamin-MDMA NEGATIVE U Benzodiazepines Scrn POSITIVE H Urine Cocaine Screen NEGATIVE U Cannabinoids Screen POSITIVE H Ur Drug Screen Comment Ethyl Alcohol - Rhythm Strip Rhythm Strip: Sinus Rhythm Rate: 61 Ectopy: None - EKG Initial EKG Interpretation: Sinus Rhythm, No Acute Injury Pattern Patient was initially treated for her symptoms and improved. Crisis spoke with patient, and instead of improving and miguel for safety, the patient escalated her symptoms and now has suicidal ideation. Crisis is recommending psychiatric transfer for further evaluation as an inpatient. EKG and required labs were obtained and above. She is medically cleared for further psychiatric evaluation and will be transferred upon acceptance. ED Disposition - Plan for ED Patient: Disposition: Psychiatric Hospital or Unit Diagnosis: Suicidal ideation, Bipolar disorder, Asthma Referrals: Aj Staley MD [Primary Care Provider] -
[2019-09-20] MEDS: Albuterol 2.5 MG/3 ML VIAL.NEB. INHALATION (00:27)
--- NOTE | 2019-09-20 04:27 | RAD_ITS ---
STUDY: X-RAY CHEST REASON FOR EXAM: Female, 34 years old. Cough and shortness of breath, history of asthma. TECHNIQUE: Single AP portable view of the chest. COMPARISON: 11/27/2018. FINDINGS: The lungs are clear and expanded. There is no demonstrated pleural abnormality. Normal size heart. Normal mediastinum and true. Normal visualized pulmonary arteries. Normal visualized aortic arch and descending thoracic aorta. Normal visualized thoracic spine. Normal visualized ribs, clavicles, and shoulders. There is no demonstrated abnormality of the visualized soft tissue structures of the upper abdomen. RAD/Chest 1 View (Portable) IMPRESSION: Normal x-ray examination of the chest. Electronically Signed: Dominga Lewis MD at 5:04 EDT , Service support ,
--- NOTE | 2019-09-20 04:27 | EKG12_ITS ---
Test Reason : Blood Pressure : / mmHG Vent. Rate : 061 BPM Atrial Rate : 061 BPM P-R Int : 154 ms QRS Dur : 076 ms QT Int : 484 ms P-R-T Axes : 024 049 044 degrees QTc Int : 487 ms Normal sinus rhythm Prolonged QT Abnormal ECG Confirmed by CARROLL MARTE, IRVIN ([id number]), associate editor GAYE BONE ([id number]) on 09/24/2019 8:35:38 AM Referred By: Phoenix Boswell Confirmed By:RC HODGES MD
[2019-09-20 04:51] LABS: Absolute Lymphocyte Count 4.75 X10^3/uL (0.83-4.51); Absolute Neutrophil Count 9.7 X10^3/uL (2.0-7.7); Basophil% 0.6 % (0-1); Eosinophil# 0.22 X10^3/uL; Eosinophils% 1.4 % (0-5); Hematocrit 33.1 % (37-47); Hemoglobin 10.6 g/dL (12.0-15.0); Lymphocyte # 4.75 X10^3/ul (4.0); Lymphocyte % 30.4 % (19-41); Mean Corpuscular Hgb 29.8 pg (27.0-32.0); Mean Platelet Vol. 8.9 fl (6.2-12.0); Monocyte# 0.74 X10^3/uL; Monocyte% 4.7 % (0-10); NRBC Flagged by Analyzer 0 % (0-5); Neutrophil % 62.1 % (47-70); POSITIVE MORPHOLOGY YES; Platelet Count 421 K/mm3 (150-450); RBC Distribution Width CV 14.3 % (11.6-14.6); RBC Distribution Width SD 48.8 fl (35.1-43.9); Red Blood Count 3.56 M/mm3 (4.2-5.4); White Blood Count 15.6 K/mm3 (4.4-11.0)
[2019-09-20 04:55] LABS: Differential Indicated SCAN CRITERIA MET
[2019-09-20 05:06] LABS: Alcohol, Blood (Medical)-Serum < 3.0 mg/dL
[2019-09-20 05:09] LABS: ALB/GLOB Ratio 0.8 RATIO (0.9-2.4); AST(SGOT) 27 U/L (15-37); Alanine Aminotransfer ALT/SGPT 72 U/L (13-56); Albumin, Serum 3.2 g/dL (3.2-5.0); Alkaline Phosphatase 120 U/L (45-117); Anion Gap 6 (5-15); BUN 11 mg/dL (7-18); Calcium,Total 8.3 mg/dL (8.5-10.1); Chloride 100 mmol/L (98-107); EST Glomerular Filtration Rate 60 mL/min (>60); Est Glom Filt Rate - Afr Amer 73 mL/min (>60); Estimated Creatinine Clearance 64.23 ml/min; Globulin 3.8 g/dL (2.2-4.2); Glucose 310 mg/dL (74-106); Potassium 3.7 mmol/L (3.5-5.1); Sodium Level 135 mmol/L (136-145)
[2019-09-20 05:12] LABS: Internal QC Validated? YES +Cl - CLEAR BKGD; Pregnancy, Serum, hCG Quali. NEGATIVE Negative
[2019-09-20 05:24] LABS: Differential Comment SCANNED; Platelet Estimate SLT INC (ADEQ)
--- NOTE | 2019-09-20 05:38 | ED.RN ---
discussed with patient about any suicidal thoughts. stated a little. asked about a plan and pt stated while she was sitting in the rain she was thinking about taking all of her pills. pt calm, cooperative through night.
--- NOTE | 2019-09-20 05:43 | ED.RN ---
patient has been evaluation by crisis at this time. Patient has been pinked slipped for vague SI comments because she does not have a place to live anymore. patient has no plan at this time. sitter precautions started and room cleared of belongings and equipment
[2019-09-20 05:58] LABS: Bacteria 0 SEEN /hpf (None Seen); Mucous, Urine 0 SEEN /hpf (<or=2+); Red Blood Cells-Urine 0 SEEN /hpf (0-5); White Blood Cells 0 SEEN /hpf (0-5)
[2019-09-20 06:05] LABS: Color, Urine Yellow (Yellow); Glucose, Dipstick 250 mg/dl (Normal); Ketone-Dipstick 5 mg/dl (Negative); Leukocyte Esterase-Dipstick Negative /ul (Negative); Nitrite-Dipstick Negative (Negative); Occult Blood-Urine Negative /ul (Negative); Protein-Dipstick 30 mg/dl (Negative); Specific Gravity, Urine 1.015 (1.002-1.030); Urine Bilirubin Dipstick Negative (Negative); Urine Clarity Sl. Cloudy (Clear); Urine Urobilinogen Normal (Normal); Urine pH 6.5 (5.0 - 8.0)
[2019-09-20 06:11] LABS: Squamous Epithelial Cells - UA 0-5 SEEN /hpf (5-10)
[2019-09-20 06:16] LABS: Amphetamine Urine VISTA NEGATIVE (<1000 ng/mL); Barbiturate Urine VISTA NEGATIVE (< 200 ng/mL); Benzodiazepine Urine VISTA POSITIVE (< 200 ng/mL); Cocaine Urine VISTA NEGATIVE (< 300 ng/mL); Ecstacy Urine VISTA NEGATIVE (< 500 ng/mL); Methadone Urine VISTA NEGATIVE (< 300 ng/mL); PCP Urine VISTA NEGATIVE (< 25 ng/mL); THC Urine VISTA POSITIVE (< 50 ng/mL); Vista UDS pH Range 6
--- NOTE | 2019-09-20 06:35 | ED.RN ---
patient belongings placed in hazmat room at this time due to being wet. left out to dry now at this time
[2019-09-20] MEDS: busPIRone 5 MG Tablet 20 MG PO (07:31)
[2019-09-20] MEDS: Lithium Carbonate 150 MG Capsule 300 MG PO ×2 (07:31→07:32)
[2019-09-20] MEDS: metFORMIN HCl 1,000 MG Tablet 1000 MG PO (07:32)
[2019-09-20] MEDS: Gabapentin 300 MG Capsule PO (07:32)
[2019-09-20] MEDS: glipiZIDE XL 5 MG Tablet 15 MG PO (07:33)
[2019-09-20] MEDS: Insulin Lispro 100 UNIT/ML INSULN.PEN 6 UNIT SC (08:01)
[2019-09-20 08:06] LABS: Bedside Glucose 253 mg/dL (70-110)
--- NOTE | 2019-09-20 08:58 | NURSING ---
[facility] TRANSFER LINE CALLED. ASKED FOR TEST, IT WAS FAXED TO HER
--- NOTE | 2019-09-20 09:39 | NURSING ---
CALLED [facility] FOR TRANSPORT. ETA IS 1 HR TO 1 HR AND 15 MIN
--- NOTE | 2019-09-20 09:40 | ED.RN ---
report called to [facility].
[2019-09-20 09:41] LABS: Bedside Glucose 219 mg/dL (70-110)
[2019-09-20] MEDS: DULoxetine Hcl 30 MG Capsule 90 MG PO (10:28)
[2019-09-20] MEDS: Spironolactone 50 MG Tablet 100 MG PO (10:28)
[2019-09-20] MEDS: hydrOXYzine PAM 25 MG Capsule 100 MG PO (10:28)
[2019-09-20] MEDS: Lubiprostone 24 MCG Capsule PO (10:28)
[2019-09-20] MEDS: Pantoprazole Sodium 20 MG Tablet PO (10:29)
[2019-09-20] MEDS: OLANZapine 5 MG/TAB TAB.RAPDIS 15 MG PO (10:29)
--- NOTE | 2019-09-20 11:05 | ED.RN ---
[facility]S IN ED.
== END 2019-09-20 11:54 ==
PROVIDERS: Emergency Provider Emergency Medicine; Family Provider Family Medicine; PCP Family Medicine
DX: R45.851 Suicidal ideations (principal); F31.9 Bipolar disorder, unspecified; J45.909 Unspecified asthma, uncomplicated; L73.2 Hidradenitis suppurativa; F60.3 Borderline personality disorder; G56.03 Carpal tunnel syndrome, bilateral upper limbs; M54.9 Dorsalgia, unspecified; M54.2 Cervicalgia; G89.29 Other chronic pain; E11.9 Type 2 diabetes mellitus without complications; M19.90 Unspecified osteoarthritis, unspecified site; F41.1 Generalized anxiety disorder; Z79.4 Long term (current) use of insulin; Z79.84 Long term (current) use of oral hypoglycemic drugs; Z79.899 Other long term (current) drug therapy; F17.200 Nicotine dependence, unspecified, uncomplicated
CPT/HCPCS: 36415; 71045; 80053; 80307; 80320; 81001; 82962; 84703; 85025; 93005; 94640; 99285; G0480

== ENCOUNTER 2019-10-01 08:07 | Outpatient (RCR) | payer MEDICARE, SELFPAY ==
[2019-09-21 01:08] VITALS: BP 135/68; PULSE 121; RESP 18; TEMP 37.2
[2019-10-01 08:14] VITALS: BP 148/98; PULSE 102; RESP 18; TEMP 35.4; BMI 38.2
--- NOTE | 2019-10-01 09:02 | PN.PCM_ITS ---
(1) Open wound of right axillary region with complication Status: Chronic Current Visit: Yes Code(s): S41.101A - Unspecified open wound of right upper arm, initial encounter (2) Skin graft failure Status: Chronic Current Visit: Yes Code(s): T86.821 - Skin graft (allograft) (autograft) failure Comment: compromised skin graft left axilla (3) Diabetes Status: Chronic Current Visit: Yes Code(s): E11.9 - Type 2 diabetes mellitus without complications Comment: type 2 Dx : 2012 Last exacerbation : DKA : never Hypoglycemic episode : never ER visit : 01/08 - 500+ (4) Hydradenitis Status: Chronic Current Visit: Yes Code(s): L73.2 - Hidradenitis suppurativa Comment: hidradenitis left axilla - L73.2 (5) Bipolar affective Status: Chronic Current Visit: Yes Code(s): F31.9 - Bipolar disorder, unspecified (6) Smoker Status: Chronic Current Visit: Yes Code(s): F17.200 - Nicotine dependence, unspecified, uncomplicated Comment: F17.200 Type of Wound Date of Service: 10/01/19 Chief Complaint: Open surgical recurrent hidradenitis wound right axilla. History of Wound: Surgery 07/20/19 - Surgical preparation right axilla with excision painful recurrent hidradenitis (117 cm2). Wound care - Silver. Operative culture - negative. She was treated perioperatively with Doxycycline. Prealbumin from 07/21/19 was 34.1. Encourage nutritional supplementation with protein to help the healing process. HgbA1c from 07/21/19 was 7.1. In order to proceed with elective skin grafting, the HgbA1c needs to be less than 8. On 09/03/19 she underwent a surgical preparation right axilla with excisional debridement nonhealing hidradenitis ulcer and FTSG reconstruction from the right flank (35 cm2) and placement of Amniofill placental connective tissue powder, 500mg and placement of SYLVIA NPWT device. Her pathology showed inflammation. Operative cultures showed Staphylococcus aureas and Corynebacterium striatum. Wound cultures from 09/18/19 were positive for Staphylococcus aureus, Enterococcus Faecalis, and Provatella corporis. She was treated with Keflex and Dakin's solution in the facility where she was placed until a few days ago. We will stop the Keflex and start her on Linzolid and Flagyl. Will stop the Da kin's because she complains it guerrero too much and start her on Silver dressing changes daily. Her ROM is good. Today she denies fever. Her appetite is good. Progress of Wound: Patient was discharged in the past several days from an in patient psychiatric facility. They were treating her skin graft failure with Keflex and Dakin's solution. There is no graft left, although the dimensions have decreased. - Physical Exam Vital Signs Temp Pulse Resp BP 95.7 F L 102 H 18 148/98 H 10/01/19 08:14 10/01/19 08:14 10/01/19 08:14 10/01/19 08:14 Wound Measurements and Assessment - Nurse 1 - General Ulcer Measurement Start: 10/01/19 08:14 Freq: Status: Active Protocol: Activity Type Activity Date Activity User E-Sign Co-Sign Detail Recorded Client Recorded Date Recorded By Document 10/01/19 08:14 DL [id number] 10/01/19 08:23 DL 10/01/19 08:14 Wound Center Nurse 1 [Ulcer Assessment] #8 right axilla hidradenitis -Current Size (cm) - Length 1.7 -Current Size (cm) - Width 9.4 -Current Size (cm) - Depth 0.1 -Total Square Cm 15.98 -Photo Taken No -Exudate Amt Small -Exudate Type Serosanguineous -Wound Margin Distinct, Outline Attached -Granulation Amt Large (67-100%) -Granulation Quality Hyper- granulation,Red -Necrosis Amt Small (1-33%) -Necrotic Tissue Type Adherent Slough -Structure Exposed N/A -Texture (Lakisha-wound Skin Appearance) Scarring -Moisture (Lakisha-wound Skin Appearance No Abnormality ) -Color (Lakisha-wound Skin Appearance) Rubor -Temperature (Lakisha-wound Skin No Abnormality Appearance) (Pt Warm) -Tenderness on Palpation (Lakisha-wound No Skin Appearance) -Ulcer Cleansing Rinsed/ Irrigated with Saline -Foul Odor after Cleansing No -Anesthetic Used 4% Lidocaine Solution ANTHONY - Nurse 2 - General Ulcer CM Notes Start: 10/01/19 08:14 Freq: Status: Active Protocol: Activity Type Activity Date Activity User E-Sign Co-Sign Detail Recorded Client Recorded Date Recorded By Document 10/01/19 08:40 JF [id number] 10/01/19 08:41 10/01/19 08:40 Wound Center Nurse 2 [Procedure/Treatment] -Time 08:41 -Correct Patient Yes -Correct Side, Site, Position Yes -Correct Procedure Yes -Procedure Performed Yes -Type of Procedure Debridement -Clinical Debridement Subcutaneous -Post Debridement Size (cm) - Length 2.0 -Post Debridement Size (cm) - Width 9.5 -Post Debridement Size (cm) - Depth 0.1 -Total Square Cm 19.00 -Wound/Ulcer Outcome Not Healed -Ulcer Cleansing Rinsed/ Irrigated with Saline -Foul Odor after Cleansing No -Bioengineered Tissue No -Bleeding Controlled with Pressure -Offloading No -Treatment Response Procedure Tolerated Well [See Physician Procedure note for Specifics] Pain Scale: 0-10 Numeric [Pain] -Is Patient Pain Free? Yes Debridement Note Post-Debridement Measurements/Treatment WC - Nurse 2 - General Ulcer CM Notes Start: 10/01/19 08:14 Freq: Status: Active Protocol: Activity Type Activity Date Activity User E-Sign Co-Sign Detail Recorded Client Recorded Date Recorded By Document 10/01/19 08:40 JF [id number] 10/01/19 08:41 10/01/19 08:40 Wound Center Nurse 2 #8 right axilla hidradenitis -Time 08:41 -Correct Patient Yes -Correct Side, Site, Position Yes -Correct Procedure Yes -Procedure Performed Yes -Type of Procedure Debridement -Clinical Debridement Subcutaneous -Post Debridement Size (cm) - Length 2.0 -Post Debridement Size (cm) - Width 9.5 -Post Debridement Size (cm) - Depth 0.1 -Total Square Cm 19.00 -Wound/Ulcer Outcome Not Healed -Ulcer Cleansing Rinsed/ Irrigated with Saline -Foul Odor after Cleansing No -Bioengineered Tissue No -Bleeding Controlled with Pressure -Offloading No -Treatment Response Procedure Tolerated Well Pain Scale: 0-10 Numeric Is Patient Pain Free? 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 Painful recurrent right axillary hidradenitis. 2. Open surgical recurrent hidradenitis wound right axilla. 3. Smoker. 4. Diabetes mellitus. 5. s/p surgical preparation right axilla with excision painful recurrent hidradenitis (117 cm2). Plan: On 09/03/19 she underwent a surgical preparation right axilla with excisional debridement nonhealing hidradenitis ulcer and FTSG reconstruction from the right flank (35 cm2) and placement of Amniofill placental connective tissue powder, 500mg and placement of SYLVIA NPWT device. Her pathology showed inflammation. Operative cultures showed Staphylococcus aureas and Corynebacterium striatum that are sensitive to the Doxycycline that she was placed on upon discharge. Her right shoulder is a little stiff but has improved with range of motion since having the skin graft. Encourage range of motion exercises to minimize stiffness. OT has been ordered. Her Prealbumin from 07/21/19 was 34.1. Encourage nutritional supplementation with protein to help the healing process. Her HgbA1c from 07/21/19 was 7.1. For any elective skin graft surgery, the HgbA1c needs to be less than 8. She has compromise of the skin graft. Wound cultures from 09/18/19 were positive for Staphylococcus aureus, Enterococcus Faecalis, and Provatella corporis. She was treated with Keflex and Dakin's solution in the facility where she was placed until a few days ago. We will stop the Keflex and start her on Linzolid and Flagyl. Will stop the Dakin's because she complains it guerrero too much and start her on Silver dressing changes daily. Her ROM is good. Followup one week. Encouraged the patient to stop smoking as it may have deleterious effects on wound healing. Code Visit 36559
== END 2019-10-20 23:59 ==
LOC: WC 08:07
PROVIDERS: Family Provider Family Medicine; PCP Family Medicine; Referring Provider Surgery; Visit Provider Surgery
DX: T86.821 Skin graft (allograft) (autograft) failure (principal); L73.2 Hidradenitis suppurativa; F17.200 Nicotine dependence, unspecified, uncomplicated; L98.492 Non-pressure chronic ulcer of skin of other sites with fat layer exposed; E11.622 Type 2 diabetes mellitus with other skin ulcer
CPT/HCPCS: 11042

== ENCOUNTER 2019-10-02 03:43 | Emergency (ER) | payer MEDICARE, SELFPAY ==
[2019-10-01 08:14] VITALS: BMI 38.2
[2019-10-02 03:44] VITALS: BP 162/111; PULSE 128; RESP 18; TEMP 36.1; O2SAT 99; BMI 38.2
--- NOTE | 2019-10-02 04:32 | ED.VISSUMM ---
- ER Visit Summary Date of Service: 10/02/19 Chief Complaint: [Bilateral hand pain] History of Present Illness: The patient is a 34 F [presents to the emergency department with complaint of pain in both hands after being exposed to the elements tonight. Patient states that she was outdoors on the [facility] and was taking pictures. Patient is concerned that she could have frostbite. Patient states that she is been staying with her parents who live locally in [place]. Patient was not wearing gloves. Patient with history of anxiety, diabetes, and bipolar disorder.] Physical Examination: [HEENT-PERRLA, EOMI. Cranial nerves II through XII grossly intact. TMs clear. Mucous membranes moist. No adenopathy. Cardiovascular-regular rate and rhythm without murmur or ectopy Lungs-clear to auscultation, chest wall stable without crepitus or subcu emphysema Abdomen-normoactive bowel sounds, soft, nontender, no rebound or rigidity, no peritoneal signs. Extremities-intact ?4, normal range of motion, normal pulses, atraumatic]. Bilateral hands-cool to the touch and erythematous. Patient has normal cap refill. Vascularly intact. Test Results: [None indicated] Emergency Department Course and Treatment: [Patient had hands placed under some warm blankets. She was observed in the emergency department and she felt markedly improved.] Treatment Plan: [Patient advised to follow-up with primary care physician within next 2 to 3 days. I do not think patient has frostbite but may have some frostnip.] Disposition: [Discharged home in stable condition] Impression: [Frostnip to bilateral hands] This note was generated with [employer] dictation software. It may contain incorrect words, spelling, and punctuation that were not noted in review of the chart prior to signing ED Disposition - Plan for ED Patient: Referrals: Aj Staley MD [Primary Care Provider] -
--- NOTE | 2019-10-02 05:14 | ED.DEP ---
ED Disposition - Plan for ED Patient: Instructions: Asif Referrals: Aj Staley MD [Primary Care Provider] - 3-5 Days
--- NOTE | 2019-10-03 13:30 | CM.ED ---
SOCIAL WORK INFORMANT: CHARGE NURSELORNE REASON FOR REFERRAL: SUPPORT-PATIENT WITH HX OF BIPOLAR DISORDER, PARANOID MET WITH PATIENT IN ROOM. INTRODUCED ROLE AND REASON FOR REFERRAL. PATIENT WAS TO BE DIRECT ADMIT BY DR. ALDANA. PATIENT PARANOID STATING I DON'T WANT TO BE SENT TO [facility], THIS ISN'T A TRICK? THIS WORKER ASSURED PATIENT SHE IS HERE FOR WOUND. PATIENT CALM AND COOPERATIVE. PATIENT TO BE ADMITTED TO MED SURG 3. WAITING FOR BED AT THIS TIME. EMOTIONAL SUPPORT AND EDUCATION PROVIDED TO PATIENT. PLAN: ADMIT LAUREL FERGUSON, OCEANOGRAPHER ASSISTANT.
--- NOTE | 2019-10-03 13:30 | CM.ED ---
SOCIAL WORK INFORMANT: CHARGE NURSELORNE REASON FOR REFERRAL: SUPPORT-PATIENT WITH HX OF BIPOLAR DISORDER, PARANOID MET WITH PATIENT IN ROOM. INTRODUCED ROLE AND REASON FOR REFERRAL. PATIENT WAS TO BE DIRECT ADMIT BY DR. ALDANA. PATIENT PARANOID SHE IS BEING ABOUT BEING SENT TO [facility]. THIS WORKER ASSURED PATIENT SHE IS HERE FOR WOUND. PATIENT CALM AND COOPERATIVE. PATIENT TO BE ADMITTED TO MED SURG 3. WAITING FOR BED AT THIS TIME. EMOTIONAL SUPPORT AND EDUCATION PROVIDED TO PATIENT. PLAN: ADMIT Estela GUERRA MSW, EDUCATION SITE MANAGER.
== END 2019-10-02 05:19 | disposition home or self-care (01) ==
LOC: ED 04:04
PROVIDERS: Emergency Provider Emergency Medicine; Family Provider Family Medicine; PCP Family Medicine
DX: T33.522A Superficial frostbite of left hand, initial encounter (principal); T33.521A Superficial frostbite of right hand, initial encounter; X31.XXXA Exposure to excessive natural cold, initial encounter; Y93.9 Activity, unspecified; Y92.9 Unspecified place or not applicable; E11.9 Type 2 diabetes mellitus without complications; F31.9 Bipolar disorder, unspecified; F41.9 Anxiety disorder, unspecified; Z79.84 Long term (current) use of oral hypoglycemic drugs; Z79.4 Long term (current) use of insulin; Z79.899 Other long term (current) drug therapy; Z72.0 Tobacco use
CPT/HCPCS: 99282

== ENCOUNTER 2019-10-03 13:07 | Inpatient (IN) | payer MEDICARE, SELFPAY ==
[2019-10-03 11:31] VITALS: BMI 38.2
[2019-10-03 12:29] VITALS: BMI 38.7
--- NOTE | 2019-10-03 13:18 | PCM.HP.BLA ---
History and Physical Date of Admission: 10/03/19 Date of Admission: 09/03/19 HISTORY OF PRESENT ILLNESS 33 year old woman presents with nonhealing hidradenitis ulcer right axillary area after her recent surgery on 07/20/19 where she underwent surgical preparation right axilla with excision painful recurrent hidradenitis (117 cm2). Wound care was initially done with the VAC and then was changed to Silver dressing changes. Operative culture was negative. She was treated perioperatively with Doxycycline. Prealbumin from 07/21/19 was 34.1. Encourage nutritional supplementation with protein to help the healing process. HgbA1c from 07/21/19 was 7.1. In order to proceed with elective skin grafting, the HgbA1c needs to be less than 8. She has been doing range of motion exercises to minimize stiffness. She presents today for further operative debridement and skin grafting. PAST MEDICAL HISTORY Cat scratch of left hand with infection Cat scratch of right hand with infection Cat scratch Diabetes Hydradenitis Morbid obesity Bipolar affective Osteoarthritis Chronic back pain Diabetic leg ulcer Non-pressure chronic ulcer of right lower leg Smoker. Abscess of sternal region Abscess of breast Alcohol abuse Anxiety and depression Back problem Drug abuse Frequent headaches GERD (gastroesophageal reflux disease) Hay fever Hearing problem Hidradenitis High triglycerides Hyperlipidemia Kidney problem Neuropathy Osteoarthritis Partial thickness burn Recurrent UTI Sinus problem Vision problem HTN (hypertension) PAST SURGICAL HISTORY incision and drainage section tonsillectomy Hidradenitis surgery [place] teeth removal Surgical preparation right axilla with excision painful recurrent hidradenitis (117 cm2) - 07/20/19 ALLERGIES lamotrigine [From Lamictal] adhesive tape MEDICATIONS Clonidine HCl [Catapres] Duloxetine Hcl [Cymbalta] Tizanidine HCl [Zanaflex] glipiZIDE [Glucotrol] metFORMIN HCl [Glucophage] Meloxicam [Mobic] Spironolactone [Aldactone] ] Pajaros Carbonate [Pajaros Carbonate ER] gabapentin Lubiprostone [Amitiza] Omeprazole [Prilosec] insulin aspart insulin glargine (U-100) Atorvastatin Calcium Albuterol Sulfate [Ventolin Hfa] Buspirone HCl Duloxetine Hcl [Cymbalta] olanzapine Clindamycin HCl [Cleocin] Naproxen [Naprosyn] cycloBENZAPRine HCl [Flexeril] doxycycline monohydrate for flare ups Percocet FAMILY HISTORY Grandmother - Thyroid disorder Father -Diabetes, Heart disease, Hypertension, High cholesterol Mother - Heart disease, Hypertension, High cholesterol SOCIAL HISTORY household members: family, children number of children: 1 Smoking Status: Current every day smoker second hand exposure: No alcohol intake: former substance use type: former substance user REVIEW OF SYSTEMS GENERAL: Complains of fatigue. Denies fever and weight loss. Has history of alcohol abuse and drug abuse. EYES: Denies eye pain. ENT: Denies nasal congestion and sore throat. CARDIOVASCULAR: Has fatigue. Denies chest pain, lightheadedness, and shortness of breath with exertion. RESPIRATORY: Complains of cough and shortness of breath. The patient is a smoker. Does have asthma. GI: Denies nausea, vomiting, diarrhea, or constipation. : Denies hematuria and urinary frequency. MUSCULOSKELETAL: Complains of joint pain, back pain, and arthritis. Denies stiffness, muscle weakness, and gout. Has symptoms of bilateral carpal tunnel syndrome with numbness in thumb and index fingers. INTEGUMENTARY: Denies skin cancer. Has history of hidradenitis. Has recent flare up of hidradenitis in right axilla that resulted in excision on 07/20/19. NEURO: Denies headaches. Denies poor balance and weakness. PSYCH: Denies anxiety and depression. Has bipolar disorder. ENDOCRINE: Denies excessive thirst or urination. Has diabetes mellitus. HEMATOLOGIC: Denies abnormal bruising and fevers. PHYSICAL EXAMINATION HEENT: Pupils equal, round, and reactive to light. Extraocular muscles intact. Throat is clear. Left ear skin flap is healing satisfactory with good earlobe contour. NECK: Supple. No bony tenderness. Has scarring on the posterior neck and occipital scalp from previous excision of hidradenitis. Has good range of motion. No cervical adenopathy. LUNGS: Clear to auscultation. HEART: Regular rate and rhythm. ABDOMEN: Soft and nondistended. BREASTS: Breasts are soft. No masses palpable. No evidence of recurrent infection. No axillary adenopathy. EXTREMITIES: No clubbing, cyanosis, or edema. On the left axillary area is a healed skin graft. In the right axilla is a nonhealing hidradenitis ulcer. Good granulation tissue seen. Measures 8 x 2 cm. No axillary adenopathy noted bilaterally. Radial pulses are palpable. NEURO: Cranial nerves II through XII grossly intact. Some paresthesias in the thumb and index finger bilaterally. ASSESSMENT 1. Nonhealing hidradenitis ulcer right axilla. 2. Smoker. 3. Diabetes mellitus. PLAN She is currently getting Silver dressing changes daily. She is proceeding with range of motion exercises to minimize stiffness. She uses Doxycycline for hidradenitis flare ups. She presents today for further operative debridement and skin grafting. Will send tissue to Pathology for analysis and to Microbiology for culture. A positive culture will necessitate antibiotic therapy. Recent Prealbumin from 07/21/19 was 34.1. Encourage nutritional supplementation with protein to help the healing process. Her HgbA1c from 07/21/19 was 7.1. For elective skin grafting, it needs to be less than 8. Surgery will be done under general anesthesia with a surgical observation overnight stay in the hospital. Will place a SYLVIA NPWT device over the skin graft for compression. It will be removed in a week. Will followup at the Wound Center after discharge. Patient was informed of the risks and complications of the procedure including alternatives to surgery. These were discussed with the patient personally. Patient voices understanding and wishes to proceed. Some of the risks and complications were included in a form from the [employer]. Encouraged patient to stop smoking as it may have deleterious effects on wound healing. on Doxycycline but is running low. Will renew the Doxycycline to minimize further flare ups until surgery. Recommend surgical preparation right axilla with excision recurrent hidradenitis. Will leave the wound open and begin postop wound care with the VAC. After 2-4 weeks of wound care, will consider returning to surgery for delayed closure with skin grafting. Tissue that is removed at surgery will be sent to Pathology for analysis to rule out carcinoma and to Microbiology for culture. A positive culture will necessitate antibiotic therapy. Will schedule the surgery to be done on under general anesthesia with a surgical observation overnight stay in the hospital. Patient was informed of the risks and complications of the procedure including alternatives to surgery. These were discussed with the patient personally. Patient voices understanding and wishes to proceed. Some of the risks and complications were included in a form from the [employer]. Encouraged the patient to stop smoking as it may have deleterious effects on wound healing. Her last HgbA1c was 6.8 on 04/10/19.
[2019-10-03 14:45] VITALS: RESP 18; BMI 37.1
[2019-10-03 14:52] VITALS: BMI 37.1
[2019-10-03 15:03] VITALS: RESP 20; O2SAT 94
--- NOTE | 2019-10-03 15:03 | NURSING ---
wound photo: right axilla
[2019-10-03 15:08] LABS: Erythrocyte Sedimentation Rate 44 mm/hr (0-20)
[2019-10-03 15:09] LABS: Hemoglobin 12.4 g/dL (12.0-15.0); Mean Corp Hgb Conc 31.8 g/dL (32-36); Mean Corpuscular Hgb 29.8 pg (27.0-32.0); Mean Corpuscular Volume 93.8 fL (81-99); Mean Platelet Vol. 8.9 fl (6.2-12.0); Platelet Count 452 K/mm3 (150-450); RBC Distribution Width SD 51.7 fl (35.1-43.9); Red Blood Count 4.16 M/mm3 (4.2-5.4); White Blood Count 16.2 K/mm3 (4.4-11.0)
[2019-10-03 15:23] LABS: Hemoglobin A1c 7.4 % (4.2-6.3)
--- NOTE | 2019-10-03 15:26 | NURSING ---
PAGED HOSPITALIST FOR CONSULT
[2019-10-03 15:35] LABS: AST(SGOT) 21 U/L (15-37); Alanine Aminotransfer ALT/SGPT 31 U/L (13-56); Albumin, Serum 4.3 g/dL (3.2-5.0); Alkaline Phosphatase 87 U/L (45-117); Anion Gap 8 (5-15); BUN 11 mg/dL (7-18); BUN/Creat Ratio 11.2 RATIO (10-20); Calcium,Total 9.7 mg/dL (8.5-10.1); Chloride 104 mmol/L (98-107); Creatinine, Serum 0.98 mg/dL (0.55-1.02); EST Glomerular Filtration Rate 69 mL/min (>60); Est Glom Filt Rate - Afr Amer 83 mL/min (>60); Globulin 4.4 g/dL (2.2-4.2); Glucose 199 mg/dL (74-106); Potassium 3.9 mmol/L (3.5-5.1); Prealbumin 32.1 mg/dL (20.0-40.0); Protein, Total 8.7 g/dL (6.4-8.2); Sodium Level 137 mmol/L (136-145)
--- NOTE | 2019-10-03 15:48 | PCM.RX.CS ---
Consult Pharmacy has been consulted to manage selected antiobiotic: Vancomycin Type of Consult: New start Suspected Infection: Skin/Soft tissue Prior Doses of Antibiotics Received/Current Regimen: NONE Labs: Sodium 137 mmol/L (136-145) 10/03/19 14:55 Potassium 3.9 mmol/L (3.5-5.1) 10/03/19 14:55 Chloride 104 mmol/L (98-107) 10/03/19 14:55 Carbon Dioxide 25.0 mmol/L (21.0-32.0) 10/03/19 14:55 Anion Gap 8 (5-15) 10/03/19 14:55 BUN 11 mg/dL (7-18) 10/03/19 14:55 Creatinine 0.98 mg/dL (0.55-1.02) 10/03/19 14:55 Est GFR (MDRD) Af Amer 83 mL/min (>60) 10/03/19 14:55 Est GFR (MDRD) Non-Af 69 mL/min (>60) 10/03/19 14:55 BUN/Creatinine Ratio 11.2 RATIO (10-20) 10/03/19 14:55 Glucose 199 mg/dL (74-106) H 10/03/19 14:55 Weight used for dosin kg Estimated Creatinine Clearance: 72 ML/MIN Goal Trough: 10-15 mcg/mL Pharmacy Plan for Drug Dosing: PLAN/RECOMMENDATIONS 1. Vancomycin 1500mg IV x1 10/03/19 @1600 2. Scheduled vancomycin 1000mg IV Q12hrs to start 10/04/19 @0400 3. Trough scheduled 10/05/19 @0330 4. Pharmacy Service will continue to monitor and adjust dosing as required.
[2019-10-03] MEDS: Gabapentin 300 MG Capsule PO ×3 (16:01→22:18)
[2019-10-03] MEDS: hydrOXYzine PAM 25 MG Capsule 100 MG PO ×2 (16:02→22:16)
--- NOTE | 2019-10-03 16:25 | PN_ITS ---
Subjective: Consult for medical management: 34-year-old with past medical history of hidradenitis suppirativa status post multiple surgeries, most recent surgery was 07/20/19 where she underwent surgical debridement of her right axilla. She is being admitted for further operative debridement and skin grafting. Patient states that she was recently discharged from a psychiatric facility a week ago. She went home to her parents but has been on the streets for the past 3 days walking. Patient admits to being in a manic phase of her bipolar disorder. Does not slept in 3 days nor has she eating. She has been drinking coffee. She was seen in the emergency department yesterday with concerns for frostbite. Patient went in to see Dr. Boswell and is being subsequently admitted for further debridement. Denied any fever or chills or chest pain or dizziness Review of systems was negative Vitals/I&O's: Vital Signs Resp Pulse Ox 20 H 94 10/03/19 15:03 10/03/19 15:03 Oxygen Delivery Method Room Air Weight: 101.196 kg Body Mass Index (BMI) 37.1 Finger Stick Blood Glucose 219 General: Alert, Oriented x3, Cooperative, No apparent distress HEENT: Atraumatic, PERRLA, EOMI, Normocephalic Oral: Moist Mucosa Neck: Supple, No JVD, Negative Carotid Bruits Lungs: Clear to auscultation, Normal air movement Cardiovascular: Regular rate, Regular Rhythm, Normal S1, Normal S2, No murmurs Abdomen: Bowel Sounds Present, Soft, Non Tender, Non-Distended, No Hepato- splenomegaly Extremities: No edema Skin: No rashes, No breakdown Musculoskeletal: No Tenderness to Palpation of Joints or Extremities Lymphatic: No Cervical, Supraclavicular, or Inguinal Adenopathy Neurological: Cranial nerves II-XII grossly intact, Neuro grossly intact Psych/Mental Status: Normal Affect, Appropriate Laboratory Results 10/03/19 14:18: S.aureus Protein A PCR Pending, MRSA (PCR) Pending 10/03/19 14:55: WBC 16.2 H, RBC 4.16 L, Hgb 12.4, Hct 39.0, MCV 93.8, MCH 29.8, MCHC 31.8 L, RDW Std Deviation 51.7 H, RDW Coeff of Radha 15.0 H, Plt Count 452 H, MPV 8.9, ESR 44 H 10/03/19 14:55: Sodium 137, Potassium 3.9, Chloride 104, Carbon Dioxide 25.0, Anion Gap 8, BUN 11, Creatinine 0.98, Estim Creat Clear Calc 72.10, Est GFR (MDRD) Af Amer 83, Est GFR (MDRD) Non-Af 69, BUN/Creatinine Ratio 11.2, Glucose 199 H, Calcium 9.7, Total Bilirubin 0.70, AST 21, ALT 31, Alkaline Phosphatase 87, C-React Prot Ext Range 4.60 H, Total Protein 8.7 H, Albumin 4.3, Globulin 4.4 H, Albumin/Globulin Ratio 1.0, Prealbumin 32.1 10/03/19 14:55: Hemoglobin A1c 7.4 H Current Medications Albuterol Sulfate (Ventolin Aerosols) 2.5 mg INHALATION Q4H PRN PRN PRN Reason: Wheezing Atorvastatin Calcium (Lipitor) 20 mg PO QHS [facility] Buspirone HCl (Buspar) 20 mg PO TID [facility] Clonidine (Catapres) 0.1 mg PO DAILY PRN PRN PRN Reason: ANXIETY Dextrose (D50w Syringe) 0 gm IV X1 PRN; Protocol PRN Reason: Hypoglycemia Diazepam (Valium) 5 mg PO TID PRN PRN PRN Reason: SPASMS Docusate Sodium (Colace) 100 mg PO BID [facility] Duloxetine HCl (Cymbalta) 120 mg PO DAILY [facility] Gabapentin (Neurontin) 300 mg PO 4X/DAY [facility] Last Admin: 10/03/19 16:01 Dose: 300 mg Documented by: Glipizide (Glucotrol) 15 mg PO DAILY@0730 [facility] Glucagon () 1 mg IM .X1 PRN PRN Reason: Hypoglycemia Hydroxyzine Pamoate (Vistaril Pamoate Capsule) 100 mg PO TID [facility] Last Admin: 10/03/19 16:02 Dose: 100 mg Documented by: Lactated Ringer's () 1,000 mls @ 60 mls/hr IV .[id number] [facility] Vancomycin IV Pharmacy to Dose (1 ea/ Sodium Chloride) 500 mls @ 250 mls/hr IV PRN PRN; Protocol PRN Reason: Rx to Dose Vancomycin HCl 1,500 mg/ (Sodium Chloride) 530 mls @ 250 mls/hr IV X1 ONE Stop: 10/03/19 18:07 Vancomycin HCl (Vancomycin) 1,000 mg in 200 mls @ 200 mls/hr IV Q12H [facility] Insulin Glargine (Lantus (Bkc)) 10 units SC QHS [facility] Insulin Human Lispro (Humalog Kwikpen (Bkc)) 0 unit SC ACHS [facility]; Protocol [place] Carbonate ([place] Carbonate) 300 mg PO TID [facility] Lubiprostone (Amitiza) 24 mcg PO BID [facility] Meloxicam (Mobic) 7.5 mg PO DAILY [facility] Metformin HCl (Glucophage) 1,000 mg PO BIDCM [facility] Metronidazole (Flagyl) 500 mg PO TID [facility] Nicotine (Nicoderm Cq (Pbkc)) 21 mg TRANSDERM. DAILY [facility] Last Admin: 10/03/19 16:01 Dose: 21 mg Documented by: Nutritional Formula (Kofi - [place] Flavor) 1 packet PO BIDCM [facility] Olanzapine (Zyprexa) 20 mg PO QHS [facility] Ondansetron HCl (Zofran) 4 mg IV Q6H PRN PRN PRN Reason: NAUSEA Oxycodone HCl (Oxyir) 10 mg PO Q6H PRN PRN PRN Reason: Pain Score 6-10/10 Pantoprazole Sodium (Protonix) 20 mg PO DAILY [facility] Promethazine HCl (Phenergan Tablet) 25 mg PO 4X/DAY PRN PRN PRN Reason: NAUSEA/VOMITING Sodium Chloride () 10 - 40 ml IV UD PRN PRN Reason: SALINE FLUSH Spironolactone (Aldactone) 100 mg PO DAILY [facility] Tizanidine HCl (Zanaflex) 4 mg PO 4X/DAY [facility] STROKE Vital Signs/Narrative: Vital Signs Resp Pulse Ox 10/03/19 15:03 20 H 94 Medical Necessity - Tobacco Use Smoking Status: Current every day smoker Tobacco Use: Cigarettes Assessment/Plan All Active Problems (Last Reviewed 10/03/19 @ 11:29 by Sandy Crowder) Abnormal uterine bleeding (Acute) Abscess of neck (Acute) Open wound involving head with neck, complicated (Acute) Unspecified open wound of unspecified part of head, subsequent encounter (Acute) Unspecified open wound of unspecified part of neck, subsequent encounter (Acute) Folliculitis (Acute) Abscess, scalp (Acute) Muscle spasms of neck (Acute) Cellulitis of right hand (Acute) Cat bite (Acute) Cat bite of right hand with infection (Acute) Abscess of dorsum of right hand (Acute) Necrotizing soft tissue infection (Acute) History of section (Acute) History of tonsillectomy (Acute) Cat scratch of left hand with infection (Acute) Cat scratch of right hand with infection (Acute) Cat scratch (Acute) Open wound of left axillary region (Acute) Abscess of sternal region (Acute) Open wound of chest wall, complicated (Acute) Abscess of breast (Acute) 1. Hidradenitis of the right axilla, status post recent surgeries, admitted for further debridement Started on IV vancomycin and Flagyl by primary service. 2. Type II DM, continue on home glipizide, metformin, Lantus, insulin sliding scale We will add Accu-Cheks with insulin sliding scale 3. Nicotine dependence, on nicotine patch 4. Bipolar disorder, will resume on her medications. She has not taking her medications for more than 3 days 5. Hyperlipidemia, on statin 6. Obesity, BMI 37.1, diet and exercises recommended 7. GERD on PPI 8. DVT Prophylaxis with early ambulation Code Visit Inpatient E&M: 75262 Subs Hosp L2
[2019-10-03 16:35] LABS: M R Staph aureus DNA By PCR Negative (Negative); Probe Check PASS; Specimen Processing Control PASS; Staph aureus DNA By PCR NEGATIVE (Negative)
[2019-10-03 16:55] LABS: Bedside Glucose 181 mg/dL (70-110)
[2019-10-03] MEDS: OLANZapine 10 MG Tablet 20 MG PO (17:09)
[2019-10-03] MEDS: tiZANidine HCl 2 MG Tablet 4 MG PO ×2 (17:10→22:17)
[2019-10-03] MEDS: busPIRone 5 MG Tablet 20 MG PO (17:10)
[2019-10-03] MEDS: metroNIDAZOLE 500 MG Tablet PO ×2 (17:11→22:17)
[2019-10-03] MEDS: metFORMIN HCl 1,000 MG Tablet 1000 MG PO (17:11)
[2019-10-03] MEDS: Lactated Ringers 1,000 ML 60 ML IV (18:35)
[2019-10-03 20:37] VITALS: BP 136/91; PULSE 106; RESP 16; TEMP 36.7; O2SAT 97
[2019-10-03] MEDS: diazePAM 5 MG Tablet PO (20:43)
[2019-10-03 21:15] VITALS: PULSE 122; RESP 24
[2019-10-03] MEDS: Albuterol 2.5 MG/3 ML VIAL.NEB. INHALATION (21:15)
[2019-10-03] MEDS: Atorvastatin Calcium 20 MG Tablet PO (22:16)
[2019-10-03] MEDS: Lubiprostone 24 MCG Capsule PO (22:17)
[2019-10-03] MEDS: Docusate Sodium 100 MG Capsule PO (22:17)
[2019-10-03] MEDS: oxyCODONE 5 MG Tablet 10 MG PO (22:17)
[2019-10-03] MEDS: Lithium Carbonate 300mg Capsule 300 MG PO (22:23)
[2019-10-03] MEDS: Insulin Lispro 100 UNIT/ML INSULN.PEN SC (22:28)
[2019-10-03 22:40] LABS: Bedside Glucose 200 mg/dL (70-110)
[2019-10-04] VITALS (8 sets, daily range): BP systolic 122–157; BP diastolic 81–100; PULSE 90–108; RESP 18; TEMP 35.9–36.8; O2SAT 97–100
--- NOTE | 2019-10-04 03:41 | EKG12_ITS ---
Test Reason : CP Blood Pressure : / mmHG Vent. Rate : 097 BPM Atrial Rate : 097 BPM P-R Int : 152 ms QRS Dur : 078 ms QT Int : 382 ms P-R-T Axes : 057 049 056 degrees QTc Int : 485 ms Normal sinus rhythm Prolonged QT Abnormal ECG Confirmed by JOLEEN MARTE, ANNIE ([id number]), editorial assistant FELISHA ARMSTRONG ([id number] on 10/09/2019 1:53:56 PM Referred By: Phoenix Boswell Confirmed By:ANNIE GOODRICH MD
[2019-10-04] MEDS: oxyCODONE 5 MG Tablet 10 MG PO ×4 (04:11→22:01)
[2019-10-04] MEDS: Vancomycin IV 1,000 MG/200 ML BAG 200 MG IV ×2 (04:12→17:01)
[2019-10-04] MEDS: hydrOXYzine PAM 25 MG Capsule 100 MG PO ×3 (05:09→21:38)
[2019-10-04] MEDS: busPIRone 5 MG Tablet 20 MG PO ×3 (05:09→21:39)
[2019-10-04] MEDS: Lithium Carbonate 300mg Capsule 300 MG PO ×3 (05:09→21:39)
[2019-10-04] MEDS: metroNIDAZOLE 500 MG Tablet PO ×3 (05:09→21:39)
[2019-10-04] MEDS: diazePAM 5 MG Tablet PO ×3 (05:10→22:01)
[2019-10-04 05:53] LABS: Absolute Lymphocyte Count 3.67 X10^3/uL (0.83-4.51); Absolute Neutrophil Count 7.3 X10^3/uL (2.0-7.7); Basophil# 0.12 X10^3/uL; Eosinophil# 0.33 X10^3/uL; Eosinophils% 2.6 % (0-5); Hematocrit 34.6 % (37-47); Hemoglobin 10.9 g/dL (12.0-15.0); Lymphocyte # 3.67 X10^3/ul (4.0); Lymphocyte % 29.3 % (19-41); Mean Corp Hgb Conc 31.5 g/dL (32-36); Mean Corpuscular Hgb 29.7 pg (27.0-32.0); Mean Corpuscular Volume 94.3 fL (81-99); Mean Platelet Vol. 9.1 fl (6.2-12.0); Monocyte# 0.99 X10^3/uL; Monocyte% 7.9 % (0-10); NRBC Flagged by Analyzer 0 % (0-5); Neutrophil # 7.33 X10^3/uL (2.7-7.7); Neutrophil % 58.5 % (47-70); Platelet Count 359 K/mm3 (150-450); RBC Distribution Width CV 14.8 % (11.6-14.6); RBC Distribution Width SD 51.6 fl (35.1-43.9); Red Blood Count 3.67 M/mm3 (4.2-5.4); White Blood Count 12.5 K/mm3 (4.4-11.0)
[2019-10-04 06:00] LABS: Anion Gap 6 (5-15); BUN 11 mg/dL (7-18); BUN/Creat Ratio 14.1 RATIO (10-20); Calcium,Total 8.9 mg/dL (8.5-10.1); Chloride 107 mmol/L (98-107); Creatinine, Serum 0.78 mg/dL (0.55-1.02); EST Glomerular Filtration Rate 90 mL/min (>60); Est Glom Filt Rate - Afr Amer 108 mL/min (>60); Estimated Creatinine Clearance 90.58 ml/min; Glucose 224 mg/dL (74-106); Magnesium 1.7 mg/dL (1.6-2.6); Potassium 3.6 mmol/L (3.5-5.1); Sodium Level 138 mmol/L (136-145)
[2019-10-04 06:26] LABS: Bedside Glucose 198 mg/dL (70-110)
[2019-10-04] MEDS: Insulin Lispro 100 UNIT/ML INSULN.PEN SC ×2 (06:29→21:37)
[2019-10-04] MEDS: metFORMIN HCl 1,000 MG Tablet 1000 MG PO ×2 (08:09→17:02)
[2019-10-04] MEDS: glipiZIDE 10 MG Tablet 15 MG PO (08:09)
[2019-10-04] MEDS: Spironolactone 50 MG Tablet 100 MG PO (09:43)
[2019-10-04] MEDS: DULoxetine Hcl 60 MG Capsule 120 MG PO (09:44)
[2019-10-04] MEDS: Docusate Sodium 100 MG Capsule PO ×2 (09:44→21:38)
[2019-10-04] MEDS: Pantoprazole Sodium 20 MG Tablet PO (09:44)
[2019-10-04] MEDS: Meloxicam 7.5 MG Tablet PO (09:44)
[2019-10-04] MEDS: Gabapentin 300 MG Capsule PO ×4 (09:44→21:38)
[2019-10-04] MEDS: Lubiprostone 24 MCG Capsule PO ×2 (09:44→21:38)
[2019-10-04] MEDS: tiZANidine HCl 2 MG Tablet 4 MG PO ×4 (09:44→21:39)
[2019-10-04] MEDS: LORazepam 2 MG/ML Syringe IV (11:11)
[2019-10-04] MEDS: 0.9% Saline Lock 10 ML Syringe IV (11:11)
[2019-10-04 11:56] LABS: Bedside Glucose 115 mg/dL (70-110)
--- NOTE | 2019-10-04 12:00 | CASEMGMT ---
RN NITHYA SATELLITE INSTALLER CM to room to meet with patient for initial transition planning/care coordination assessment. RN NITHYA introduced self and role at [facility]. Pt voices understanding and consents to assessment at this time. Care providers, pharmacy, and demographics verified at this time. PCP: [facility]: psychiatrist at the counseling center. [facility]. Preferred Pharmacy: [facility]. Insurance: [facility] Dual Prescription Benefit: Yes Living Will/HPOA: does not have LW or HCPOA . Interested in more information but does not want to talk with SW at this time to complete paperwork. Provided information on advanced directives and given Social Service rac card with number to call if chooses in the future to utilize [facility] social work for advanced directive completion. LNOK: Mother and father. has a daughter who is under 18. Living Arrangements: is currently homeless. Pt is emotional/tearful, stating, I'm a wreck. I haven't slept for 4 days. Pt states she has been wandering around [place] for the past 4 days. Pt states she was staying at her parent's home after being discharged from psych facility, but states, We had a falling out and I can't go back there Pt states my parent's want me to live with them for the rest of my life but I want to be able to get out on my own and have my own place. Pt states her routine meds are at her parent's home and states, they won't give them back to me unless I go back home. Pt then states, I don't have anywhere to go anymore. I don't have any more friends. I've burnt all my bridges. Pt reports that she had an appt with [employer] today for assistance with housing and states she would like to talk with SW for resources. SW consult has been placed and SW, Nishi Conner, made aware of the above. Transportation: Pt states she walks everywhere. Utilizes [facility] transportation services to the [facility]ound Center. States when she is getting along with her parents, that they assist with transportation. DME: States she has a glucometer and her insulin at someone's home and is not sure if she can get it from them. Pt encouraged to look into getting these items so she can take her medication as needed. HHC/SNF: No history of SNF but has had [facility] and [facility] in the past. Pt initially was interested in HHC for daily dressing changes, but once pt made aware that she could be taught how to do her own dressing changes, she states was okay with doing so. SW/CM to follow for further discharge planning/needs. Advised pt to ask for SW/CM if any further questions/concerns/needs arise. Voices understanding. PLAN: SW C/S d/t limited support/homelessness. Instructions/teaching for wound care to be completed prior to discharge so pt can complete daily dressing changes. Livia HARTMANN RN CM
--- NOTE | 2019-10-04 12:26 | PN_ITS ---
Subjective: Patient was seen and examined. She still has not been able to sleep. Been pacing around the nurses station. She denied any new complaint. Still hearing voices. She feels restless Objective: Physical exam: General: Alert, Oriented x3, Cooperative, No apparent distress HEENT: Atraumatic, PERRLA, EOMI, Normocephalic Oral: Moist Mucosa Neck: Supple, No JVD, Negative Carotid Bruits Lungs: Clear to auscultation, Normal air movement Cardiovascular: Regular rate, Regular Rhythm, Normal S1, Normal S2, No murmurs Abdomen: Bowel Sounds Present, Soft, Non Tender, Non-Distended, No Hepato- splenomegaly Extremities: No edema Skin: No rashes, No breakdown Musculoskeletal: No Tenderness to Palpation of Joints or Extremities Lymphatic: No Cervical, Supraclavicular, or Inguinal Adenopathy Neurological: Cranial nerves II-XII grossly intact, Neuro grossly intact Psych/Mental Status: Normal Affect, Appropriate Vitals/I&O's: Vital Signs Temp Pulse Resp BP Pulse Ox 97.3 F L 100 18 157/100 H 99 10/04/19 08:03 10/04/19 10:00 10/04/19 08:03 10/04/19 08:03 10/04/19 08:03 Oxygen Delivery Method Room Air Weight: 101.196 kg Body Mass Index (BMI) 37.1 Finger Stick Blood Glucose 219 Intake and Output for Last 24 Hours 10/02/19 10/03/19 10/04/19 23:59 23:59 23:59 Intake Total 531 / 531 574 / 574 Output Total 1750 / 1750 Balance 531 / 531 -1176 / -1176 Microbiology Past 72 Hours 10/03/19 14:18 Wound - Axillary Gram Stain - Final 10/03/19 14:18 Wound - Axillary Wound Culture - Preliminary Mixed Gram Positive Organisms Laboratory Results 10/03/19 14:18: S.aureus Protein A PCR NEGATIVE, MRSA (PCR) Negative 10/03/19 14:55: WBC 16.2 H, RBC 4.16 L, Hgb 12.4, Hct 39.0, MCV 93.8, MCH 29.8, MCHC 31.8 L, RDW Std Deviation 51.7 H, RDW Coeff of Radha 15.0 H, Plt Count 452 H, MPV 8.9, ESR 44 H 10/03/19 14:55: Sodium 137, Potassium 3.9, Chloride 104, Carbon Dioxide 25.0, Anion Gap 8, BUN 11, Creatinine 0.98, Estim Creat Clear Calc 72.10, Est GFR (MDRD) Af Amer 83, Est GFR (MDRD) Non-Af 69, BUN/Creatinine Ratio 11.2, Glucose 199 H, Calcium 9.7, Total Bilirubin 0.70, AST 21, ALT 31, Alkaline Phosphatase 87, C-React Prot Ext Range 4.60 H, Total Protein 8.7 H, Albumin 4.3, Globulin 4.4 H, Albumin/Globulin Ratio 1.0, Prealbumin 32.1 10/03/19 14:55: Hemoglobin A1c 7.4 H 10/03/19 16:29: POC Glucose 181 H 10/03/19 22:27: POC Glucose 200 H 10/04/19 05:35: WBC 12.5 H, RBC 3.67 L, Hgb 10.9 L, Hct 34.6 L, MCV 94.3, MCH 29.7, MCHC 31.5 L, RDW Std Deviation 51.6 H, RDW Coeff of Radha 14.8 H, Plt Count 359, MPV 9.1, Immature Gran % (Auto) 0.700, Neut % (Auto) 58.5, Lymph % (Auto) 29.3, [place] % (Auto) 7.9, Eos % (Auto) 2.6, Baso % (Auto) 1.0, Absolute Neuts (auto) 7.3, Absolute Lymphs (auto) 3.67, Nucleated RBC % 0 10/04/19 05:35: Sodium 138, Potassium 3.6, Chloride 107, Carbon Dioxide 25.0, Anion Gap 6, BUN 11, Creatinine 0.78, Estim Creat Clear Calc 90.58, Est GFR (MDRD) Af Amer 108, Est GFR (MDRD) Non-Af 90, BUN/Creatinine Ratio 14.1, Glucose 224 H, Calcium 8.9 10/04/19 05:35: Magnesium 1.7 10/04/19 06:19: POC Glucose 198 H 10/04/19 11:51: POC Glucose 115 H Current Medications Albuterol Sulfate (Ventolin Aerosols) 2.5 mg INHALATION Q4H PRN PRN PRN Reason: Wheezing Last Admin: 10/03/19 21:15 Dose: 2.5 mg Documented by: Atorvastatin Calcium (Lipitor) 20 mg PO QHS [facility] Last Admin: 10/03/19 22:16 Dose: 20 mg Documented by: Buspirone HCl (Buspar) 20 mg PO TID [facility] Last Admin: 10/04/19 05:09 Dose: 20 mg Documented by: Clonidine (Catapres) 0.1 mg PO DAILY PRN PRN PRN Reason: ANXIETY Dextrose (D50w Syringe) 0 gm IV X1 PRN; Protocol PRN Reason: Hypoglycemia Diazepam (Valium) 5 mg PO TID PRN PRN PRN Reason: SPASMS Last Admin: 10/04/19 12:03 Dose: 5 mg Documented by: Docusate Sodium (Colace) 100 mg PO BID [facility] Last Admin: 10/04/19 09:44 Dose: 100 mg Documented by: Duloxetine HCl (Cymbalta) 120 mg PO DAILY [facility] Last Admin: 10/04/19 09:44 Dose: 120 mg Documented by: Gabapentin (Neurontin) 300 mg PO 4X/DAY [facility] Last Admin: 10/04/19 09:44 Dose: 300 mg Documented by: Glipizide (Glucotrol) 15 mg PO DAILY@0730 [facility] Last Admin: 10/04/19 08:09 Dose: 15 mg Documented by: Glucagon () 1 mg IM .X1 PRN PRN Reason: Hypoglycemia Hydroxyzine Pamoate (Vistaril Pamoate Capsule) 100 mg PO TID [facility] Last Admin: 10/04/19 05:09 Dose: 100 mg Documented by: Lactated Ringer's () 1,000 mls @ 60 mls/hr IV .[id number] [facility] Last Admin: 10/04/19 11:55 Dose: Not Given Documented by: Vancomycin IV Pharmacy to Dose (1 ea/ Sodium Chloride) 500 mls @ 250 mls/hr IV PRN PRN; Protocol PRN Reason: Rx to Dose Vancomycin HCl (Vancomycin) 1,000 mg in 200 mls @ 200 mls/hr IV Q12H [facility] Last Infusion: 10/04/19 05:13 Dose: Infused Documented by: Insulin Glargine (Lantus (Bkc)) 10 units SC QHS [facility] Last Admin: 11/13/19 22:29 Dose: 10 u Documented by: Insulin Human Lispro (Humalog Kwikpen (Bkc)) [address] [facility]; Protocol Last Admin: 10/04/19 11:53 Dose: Not Given Documented by: [place] Carbonate ([place] Carbonate) 300 mg PO TID [facility] Last Admin: 10/04/19 05:09 Dose: 300 mg Documented by: Lubiprostone (Amitiza) 24 mcg PO BID [facility] Last Admin: 10/04/19 09:44 Dose: 24 mcg Documented by: Meloxicam (Mobic) 7.5 mg PO DAILY [facility] Last Admin: 10/04/19 09:44 Dose: 7.5 mg Documented by: Met[facility] ([facility]) [facility] Last Admin: 10/04/19 08:09 Dose: 1,000 mg Documented by: Metronidazole (Flagyl) 500 mg PO TID [facility] Last Admin: 10/04/19 05:09 Dose: 500 mg Documented by: Nicotine (Nicoderm Cq (Pbkc)) 21 mg TRANSDERM. DAILY [facility] Last Admin: 10/04/19 09:45 Dose: 21 mg Documented by: Nutritional Formula (Kofi - [place] Flavor) [facility] Last Admin: 10/04/19 08:09 Dose: 1 packet Documented by: Olanzapine (Zyprexa) 20 mg PO QHS [facility] Last Admin: 10/03/19 17:09 Dose: 20 mg Documented by: Ondansetron HCl (Zofran) 4 mg IV Q6H PRN PRN PRN Reason: NAUSEA Oxycodone HCl (Oxyir) 10 mg PO Q6H PRN PRN PRN Reason: Pain Score 6-10/10 Last Admin: 10/04/19 11:18 Dose: 10 mg Documented by: Pantoprazole Sodium (Protonix) 20 mg PO DAILY [facility] Last Admin: 10/04/19 09:44 Dose: 20 mg Documented by: Promethazine HCl (Phenergan Tablet) 25 mg PO 4X/DAY PRN PRN PRN Reason: NAUSEA/VOMITING Sodium Chloride () 10 - 40 ml IV UD PRN PRN Reason: SALINE FLUSH Last Admin: 10/04/19 11:11 Dose: 10 ml Documented by: Spironolactone (Aldactone) 100 mg PO DAILY [facility] Last Admin: 10/04/19 09:43 Dose: 100 mg Documented by: Tizanidine HCl (Zanaflex) 4 mg PO 4X/DAY [facility] Last Admin: 10/04/19 09:44 Dose: 4 mg Documented by: STROKE Vital Signs/Narrative: Vital Signs Pulse 10/04/19 10:00 100 10/04/19 08:50 108 H Medical Necessity - Tobacco Use Smoking Status: Current every day smoker Tobacco Use: Cigarettes Assessment/Plan All Active Problems (Last Reviewed 10/03/19 @ 11:29 by Sandy Crowder) Abnormal uterine bleeding (Acute) Abscess of neck (Acute) Open wound involving head with neck, complicated (Acute) Unspecified open wound of unspecified part of head, subsequent encounter (Acute) Unspecified open wound of unspecified part of neck, subsequent encounter (Acute) Folliculitis (Acute) Abscess, scalp (Acute) Muscle spasms of neck (Acute) Cellulitis of right hand (Acute) Cat bite (Acute) Cat bite of right hand with infection (Acute) Abscess of dorsum of right hand (Acute) Necrotizing soft tissue infection (Acute) History of section (Acute) History of tonsillectomy (Acute) Cat scratch of left hand with infection (Acute) Cat scratch of right hand with infection (Acute) Cat scratch (Acute) Open wound of left axillary region (Acute) Abscess of sternal region (Acute) Open wound of chest wall, complicated (Acute) Abscess of breast (Acute) 1. Hidradenitis of the right axilla, status post recent surgeries, no surgery planned by plastic surgery On IV vancomycin and Flagyl by primary service. 2. Maniac episode in the bipolar patient. Patient has auditory and sometimes visual hallucinations Mobile crisis consulted to evaluate for inpatient treatment as patient was recently discharged less than a week ago Patient had been off her medications more than 3 days prior to admission Resumed on her home medications 3. Type II DM, continue on home glipizide, metformin, Lantus, insulin sliding scale 4. Nicotine dependence, on nicotine patch 5. Hyperlipidemia, on statin 6. Obesity, BMI 37.1, diet and exercises recommended 7. GERD on PPI 8. DVT Prophylaxis with early ambulation Code Visit Inpatient E&M: 27519 Subs Hosp L2
--- NOTE | 2019-10-04 13:18 | CASEMGMT ---
Social Work Note Date of Referral: 10/04/19 Referral by: Nursing Date of Intervention: 10/04/19 Reason for Referral: Homeless, mental health Informant: Glenny Branchedmar Personal Status: Living arrangements: According to pt, up until 09/20/19 pt was living with a family successfully. Pt reports I messed up and was kicked out on 09/20/19. At that time pt went to a psychiatric facility in [place]. Pt was discharged on 09/27/19 to her parents home. Pt lived with her parents on 09/27 thru 10/01 when she had enough and had to flee. Pt states fleeing is her coping response to difficult situations. Pt reports she left her parents house on Tuesday10/01/19 with no place to go and walked the streets [place] and sat on a bench at the [facility] until she was brought to the ED on 10/03. Employment: Pt is on disability for back issues and H.S. and does not work. Insurance: [facility] dual program Family dynamics: Pt stating she has a daughter and daughter's father has custody. Pt indicating she does not get along with her parents but does not state why. Support System: None. Pt stating she has no friends and does not want support of parents. Pt reports she has severed relationship with friends that she did have. Medical History: Reason for admission: Nonhealing hidradenitis ulcer right axilla, DM ADLs prior to admission: Independent Agencies Used: [employer]: pt stating she had an appointment with a counselor, Nilda, on Tuesday and will have weekly meetings with her. Pt also stating she had an appointment today with this agency to discuss housing options. [facility]ing [facility]: Pt sees Dr. Friend. According to pt, she does not currently have a showcase maker but had in the past and she cannot remember her name. Mental Health History: Diagnoses: Bipolar Affective Disorder, borderline personality disorder, anxiety, depression Current Stressors: homeless, loss of friends, no support system Treatment History: [facility] 09/20/19-09/27/19 Dr. Friend, [facility], pt stating she had an appointment today she missed due to hospitalization. Medications: per pt, Zyprexa, Cymbalta, Busbar and vistoril. Precriptions filled at [facility] Current Cognitive/mental Status: Pt is alert and oriented throughout conversation. Affect flat. Pt tearful when talking about loss of relationship with friends. Pt able to state she was off meds since Tuesday and she was currently in a Manic period. Pt also acknowledging that she gave the ED staff a difficult time due to rocio but now that she is back on medication she is starting to feel better but not completely recovered from manic episode. Pt stating she has not slept in 4 days. Patient's identified concerns: Pt refusing to go to [place] upon d/c. Pt stating she has no other friends. SW bringing up idea of [facility] and pt refusing stating she cannot go there as it is not safe due to drug users there. Pt stating she will go back to the streets upon d/c. Interventions: Resources provided to pt on , homeless shelters, community list of served meals, people to people, [facility], and transportation assistance. Phone call to Carina at [facility] to discuss short term senior care and usp housing, VM left requesting return call. Phone call placed to [facility] to determine if pt does have a CM and an appointment with Dr. Friend. JACY left requesting return call. Will await return calls. KEMI Farah
--- NOTE | 2019-10-04 14:31 | NURSING ---
This RN spoke with Catalina with crisis per Dr. Osuna's request, as pt is medically cleared, to notify of consult prior to discharge. Catalina states she will be over shortly to assess patient.
[2019-10-04] MEDS: Lactated Ringers 1,000 ML 60 ML IV (15:54)
--- NOTE | 2019-10-04 16:57 | CHAPLAIN ---
Type of Pastoral Visit _x__ Initial Visit ___ Follow-up Visit ___ On-call Visit ___ General Patient Visit ___ Spiritual Assessment ___ Family Conference ___ Bereavement ___ Rapid Response ___ Code Blue ___ Other (describe below) Pastoral Care Referral From _x__ Patient ___ Family ___ Nurse ___ Physician ___ Art Museum Aide ___ Medical Device Sales ___ Other (describe below) Sacrament/Intervention _x__ Active listening ___ Anointing ___ Caodaism ___ Bereavement ___ Communion ___ Karli exploration ___ _x__ Life review ___ Prayer ___ Reconciliation ___ Sacrament of Sick _x__ Supportive presence ___ Wedding ___ Other (describe below) Pastoral Comments patient uses words to describe her feelings as sad, lonely, scared, paranoid, regretful; discussion on seeing a future, hope, and courage; pt says that she is Agnostic but exploring karli and is open to emotional support from real estate closing coordinator
[2019-10-04 17:21] LABS: Bedside Glucose 134 mg/dL (70-110)
[2019-10-04] MEDS: OLANZapine 10 MG Tablet 20 MG PO (21:38)
[2019-10-04] MEDS: Atorvastatin Calcium 20 MG Tablet PO (21:39)
[2019-10-04 21:56] LABS: Bedside Glucose 177 mg/dL (70-110)
--- NOTE | 2019-10-04 22:24 | PN.SURG_ITS ---
Subjective: Postop #31 Patient still acting manic. States she needs to sleep as she has had no sleep over last 4 days. She states she hears voices. - Physical Exam Vitals/I&O's: Vital Signs Temp Pulse Resp BP Pulse Ox 98.2 F 101 H 18 122/82 H 98 10/04/19 21:22 10/04/19 21:22 10/04/19 21:22 10/04/19 21:22 10/04/19 21:22 Oxygen Delivery Method Room Air Weight: 223 lb 1.584 oz Body Mass Index (BMI) 37.1 Finger Stick Blood Glucose 219 Intake and Output for Last 24 Hours 10/02/19 10/03/19 10/04/19 23:59 23:59 23:59 Intake Total 531 / 531 2111.67 / 2111.67 Output Total 1750 / 1750 Balance 531 / 531 361.67 / 361.67 General: - - Manic. Having flight of ideas. HEENT: PERRLA, EOMI Oral: Moist Mucosa Neck: Supple Abdomen: Soft, Non-Distended Skin: Ulcer/ Wound - right axillary wound is stable. Good granulation tissue seen. Minimal exudate. Good range of motion of shoulder. Lymphatic: - - no axillary adenopathy. Neurological: Cranial nerves II-XII grossly intact Psych/Mental Status: Normal Affect, Appropriate Microbiology Past 72 Hours 10/03/19 14:18 Wound - Axillary Gram Stain - Final 10/03/19 14:18 Wound - Axillary Wound Culture - Preliminary Mixed Gram Positive Organisms Laboratory Results 10/03/19 22:27: POC Glucose 200 H 10/04/19 05:35: WBC 12.5 H, RBC 3.67 L, Hgb 10.9 L, Hct 34.6 L, MCV 94.3, MCH 29.7, MCHC 31.5 L, RDW Std Deviation 51.6 H, RDW Coeff of Radha 14.8 H, Plt Count 359, MPV 9.1, Immature Gran % (Auto) 0.700, Neut % (Auto) 58.5, Lymph % (Auto) 29.3, [place] % (Auto) 7.9, Eos % (Auto) 2.6, Baso % (Auto) 1.0, Absolute Neuts (auto) 7.3, Absolute Lymphs (auto) 3.67, Nucleated RBC % 0 10/04/19 05:35: Sodium 138, Potassium 3.6, Chloride 107, Carbon Dioxide 25.0, Anion Gap 6, BUN 11, Creatinine 0.78, Estim Creat Clear Calc 90.58, Est GFR (MDRD) Af Amer 108, Est GFR (MDRD) Non-Af 90, BUN/Creatinine Ratio 14.1, Glucose 224 H, Calcium 8.9 10/04/19 05:35: Magnesium 1.7 10/04/19 06:19: POC Glucose 198 H 10/04/19 11:51: POC Glucose 115 H 10/04/19 17:07: POC Glucose 134 H 10/04/19 21:36: POC Glucose 177 H Current Medications Albuterol Sulfate (Ventolin Aerosols) 2.5 mg INHALATION Q4H PRN PRN PRN Reason: Wheezing Last Admin: 10/03/19 21:15 Dose: 2.5 mg Documented by: Atorvastatin Calcium (Lipitor) 20 mg PO QHS [facility] Last Admin: 10/04/19 21:39 Dose: 20 mg Documented by: Buspirone HCl (Buspar) 20 mg PO TID [facility] Last Admin: 10/04/19 21:39 Dose: 20 mg Documented by: Clonidine (Catapres) 0.1 mg PO DAILY PRN PRN PRN Reason: ANXIETY Dextrose (D50w Syringe) 0 gm IV X1 PRN; Protocol PRN Reason: Hypoglycemia Diazepam (Valium) 5 mg PO TID PRN PRN PRN Reason: SPASMS Last Admin: 10/04/19 22:01 Dose: 5 mg Documented by: Docusate Sodium (Colace) 100 mg PO BID [facility] Last Admin: 10/04/19 21:38 Dose: 100 mg Documented by: Duloxetine HCl (Cymbalta) 120 mg PO DAILY [facility] Last Admin: 10/04/19 09:44 Dose: 120 mg Documented by: Gabapentin (Neurontin) 300 mg PO 4X/DAY [facility] Last Admin: 10/04/19 21:38 Dose: 300 mg Documented by: Glipizide (Glucotrol) 15 mg PO DAILY@0730 [facility] Last Admin: 10/04/19 08:09 Dose: 15 mg Documented by: Glucagon () 1 mg IM .X1 PRN PRN Reason: Hypoglycemia Hydroxyzine Pamoate (Vistaril Pamoate Capsule) 100 mg PO TID [facility] Last Admin: 10/04/19 21:38 Dose: 100 mg Documented by: Lactated Ringer's () 1,000 mls @ 60 mls/hr IV .[id number] [facility] Last Admin: 10/04/19 15:54 Dose: 60 mls/hr Documented by: Vancomycin IV Pharmacy to Dose (1 ea/ Sodium Chloride) 500 mls @ 250 mls/hr IV PRN PRN; Protocol PRN Reason: Rx to Dose Insulin Glargine (Lantus ([facility])) 10 units SC QHS [facility] Last Admin: 10/04/19 21:37 Dose: 10 u Documented by: Insulin Human Lispro (Humalog Kwikpen ([facility])) 0 unit SC [facility]; Protocol Last Admin: 10/04/19 21:37 Dose: 1 u Documented by: [place] Carbonate ([place] Carbonate) 300 mg PO TID [facility] Last Admin: 10/04/19 21:39 Dose: 300 mg Documented by: Lubiprostone (Amitiza) 24 mcg PO BID [facility] Last Admin: 10/04/19 21:38 Dose: 24 mcg Documented by: Meloxicam (Mobic) 7.5 mg PO DAILY [facility] Last Admin: 10/04/19 09:44 Dose: 7.5 mg Documented by: Met[facility] ([facility]) [facility] Last Admin: 10/04/19 17:02 Dose: 1,000 mg Documented by: Metronidazole (Flagyl) 500 mg PO TID [facility] Last Admin: 10/04/19 21:39 Dose: 500 mg Documented by: Nicotine (Nicoderm Cq (Pbkc)) 21 mg TRANSDERM. DAILY [facility] Last Admin: 10/04/19 09:45 Dose: 21 mg Documented by: Nutritional Formula ([place]ofi - [place] Flavor) 1 packet PO BIDCM [facility] Last Admin: 10/04/19 17:02 Dose: 1 packet Documented by: Olanzapine (Zyprexa) 20 mg PO QHS [facility] Last Admin: 10/04/19 21:38 Dose: 20 mg Documented by: Ondansetron HCl (Zofran) 4 mg IV Q6H PRN PRN PRN Reason: NAUSEA Oxycodone HCl (Oxyir) 10 mg PO Q6H PRN PRN PRN Reason: Pain Score 6-10/10 Last Admin: 10/04/19 22:01 Dose: 10 mg Documented by: Pantoprazole Sodium (Protonix) 20 mg PO DAILY [facility] Last Admin: 10/04/19 09:44 Dose: 20 mg Documented by: Promethazine HCl (Phenergan Tablet) 25 mg PO 4X/DAY PRN PRN PRN Reason: NAUSEA/VOMITING Sodium Chloride () 10 - 40 ml IV UD PRN PRN Reason: SALINE FLUSH Last Admin: 10/04/19 11:11 Dose: 10 ml Documented by: Spironolactone (Aldactone) 100 mg PO DAILY [facility] Last Admin: 10/04/19 09:43 Dose: 100 mg Documented by: Tizanidine HCl (Zanaflex) 4 mg PO 4X/DAY [facility] Last Admin: 10/04/19 21:39 Dose: 4 mg Documented by: Medical Necessity - Tobacco Use Smoking Status: Current every day smoker Tobacco Use: Cigarettes Assessment/Plan All Active Problems (Last Updated 10/05/19 @ 15:32 by Sonali Castrejon, COMMUNITY RELATIONS MANAGER-C) Other complications of skin graft (allograft) (autograft) (Acute) Abnormal uterine bleeding (Acute) Abscess of neck (Acute) Open wound involving head with neck, complicated (Acute) Unspecified open wound of unspecified part of head, subsequent encounter (Acute) Unspecified open wound of unspecified part of neck, subsequent encounter (Acute) Folliculitis (Acute) Abscess, scalp (Acute) Muscle spasms of neck (Acute) Cellulitis of right hand (Acute) Cat bite (Acute) Cat bite of right hand with infection (Acute) Abscess of dorsum of right hand (Acute) Necrotizing soft tissue infection (Acute) History of section (Acute) History of tonsillectomy (Acute) Cat scratch of left hand with infection (Acute) Cat scratch of right hand with infection (Acute) Cat scratch (Acute) Open wound of left axillary region (Acute) Abscess of sternal region (Acute) Open wound of chest wall, complicated (Acute) Abscess of breast (Acute) 1. Right axillary hidradenitis wound. 2. Compromised skin graft right axilla. 3. Hidradenitis. 4. Manic episode in a bipolar patient. 5. Diabetes mellitus. 6. Smoker. Continue Vancomycin and Flagyl for the right axillary wound culture that showed Staphylococcus aureus, Enterococcus faecalis, and Prevotella corporis. To help with IV access, a midline PICC was placed. Another wound culture was done on admission. Continue Silver dressing changes to the right axilla. Encourage range of motion exercises to minimize stiffness. HgbA1c was 7.4. For her manic episode, she had been roaming the streets the last few days and didn't take her meds. With continuation of her meds, her symptoms should improve. With continuation of her symptoms, she will not heed another Psych inpatient visit. At discharge, will need to decide a place for her to go. She states she does not want to live with her mother. She had seen 180 a few days ago and can followup with them at discharge as well. Encouraged patient to stop smoking as it may have deleterious effects on wound healing.
--- NOTE | 2019-10-04 22:43 | NURSING ---
Pt is very anxious and distraught. Apparently, she is receiving phone calls that have upset her and she has not had hardly any sleep. I suggested that maybe she disregard the text messages etc for awhile so she can concentrate on having a more peaceful night. She feels like they are a link for her and a lifeline so not sure she will follow my suggestion. She did agree to have me place her monitoring tech on her again. Feels like she needs some ativan or something to calm her down.
[2019-10-04] MEDS: Amox/Clavulanate 875 MG Tablet PO (23:06)
[2019-10-04] MEDS: traZODone 50 MG Tablet PO (23:50)
[2019-10-05] VITALS (10 sets, daily range): BP systolic 114–138; BP diastolic 72–80; PULSE 80–98; RESP 16–18; TEMP 36.5–36.8; O2SAT 95–99
[2019-10-05] MEDS: Insulin Lispro 100 UNIT/ML INSULN.PEN SC ×2 (06:46→10:56)
[2019-10-05] MEDS: busPIRone 5 MG Tablet 20 MG PO ×3 (06:46→21:52)
[2019-10-05] MEDS: Lithium Carbonate 300mg Capsule 300 MG PO ×3 (06:46→21:53)
[2019-10-05] MEDS: metroNIDAZOLE 500 MG Tablet PO ×3 (06:46→21:53)
[2019-10-05] MEDS: hydrOXYzine PAM 25 MG Capsule 100 MG PO ×3 (06:47→21:54)
[2019-10-05 07:00] LABS: Bedside Glucose 223 mg/dL (70-110)
--- NOTE | 2019-10-05 07:31 | PCM.PN.HOSP ---
Subjective: Follow-up on right axillary hidradenitis: Patient was seen and examined. She denied any new complaint. Finally she was able to sleep last night. Seen by mobile crisis; no recommendation for acute hospitalization at this moment. Outpatient psychiatric appointment made for 10/08/2019. Objective: Objective: Physical exam: General: Alert, Oriented x3, Cooperative, No apparent distress HEENT: Atraumatic, PERRLA, EOMI, Normocephalic Oral: Moist Mucosa Neck: Supple, No JVD, Negative Carotid Bruits Lungs: Clear to auscultation, Normal air movement Cardiovascular: Regular rate, Regular Rhythm, Normal S1, Normal S2, No murmurs Abdomen: Bowel Sounds Present, Soft, Non Tender, Non-Distended, No Hepato-splenomegaly Extremities: No edema, dressing over her right axillary region Skin: No rashes, No breakdown Musculoskeletal: No Tenderness to Palpation of Joints or Extremities Lymphatic: No Cervical, Supraclavicular, or Inguinal Adenopathy Neurological: Cranial nerves II-XII grossly intact, Neuro grossly intact Psych/Mental Status: Normal Affect, Appropriate Vitals/I&O's: Vital Signs Temp Pulse Resp BP Pulse Ox 97.7 F L 98 18 138/74 H 96 10/05/19 06:35 10/05/19 07:00 10/05/19 06:35 10/05/19 06:35 10/05/19 06:35 Oxygen Delivery Method Room Air Weight: 101.196 kg Body Mass Index (BMI) 37.1 Finger Stick Blood Glucose 219 Intake and Output for Last 24 Hours 10/03/19 10/04/19 10/05/19 23:59 23:59 23:59 Intake Total 531 / 531 2111.67 / 2811.67 800 / 800 Output Total 1750 / 1750 Balance 531 / 531 361.67 / 1061.67 800 / 800 Microbiology Past 72 Hours 10/03/19 14:18 Wound - Axillary Gram Stain - Final 10/03/19 14:18 Wound - Axillary Wound Culture - Preliminary Mixed Gram Positive Organisms Laboratory Results 10/04/19 11:51: POC Glucose 115 H 10/04/19 17:07: POC Glucose 134 H 10/04/19 21:36: POC Glucose 177 H 10/05/19 06:45: POC Glucose 223 H Current Medications Albuterol Sulfate (Ventolin Aerosols) 2.5 mg INHALATION Q4H PRN PRN PRN Reason: Wheezing Last Admin: 10/03/19 21:15 Dose: 2.5 mg Documented by: Amoxicillin/Clavulanate Potassium (Augmentin Tablet) 875 mg PO BID [facility] Last Admin: 10/04/19 23:06 Dose: 875 mg Documented by: Atorvastatin Calcium (Lipitor) 20 mg PO QHS [facility] Last Admin: 10/04/19 21:39 Dose: 20 mg Documented by: Buspirone HCl (Buspar) 20 mg PO TID [facility] Last Admin: 10/05/19 06:46 Dose: 20 mg Documented by: Clonidine (Catapres) 0.1 mg PO DAILY PRN PRN PRN Reason: ANXIETY Dextrose (D50w Syringe) 0 gm IV X1 PRN; Protocol PRN Reason: Hypoglycemia Diazepam (Valium) 5 mg PO TID PRN PRN PRN Reason: SPASMS Last Admin: 10/04/19 22:01 Dose: 5 mg Documented by: Docusate Sodium (Colace) 100 mg PO BID [facility] Last Admin: 10/04/19 21:38 Dose: 100 mg Documented by: Duloxetine HCl (Cymbalta) 120 mg PO DAILY [facility] Last Admin: 10/04/19 09:44 Dose: 120 mg Documented by: Gabapentin (Neurontin) 300 mg PO 4X/DAY [facility] Last Admin: 10/04/19 21:38 Dose: 300 mg Documented by: Glipizide (Glucotrol) 15 mg PO DAILY@0730 [facility] Last Admin: 10/04/19 08:09 Dose: 15 mg Documented by: Glucagon () 1 mg IM .X1 PRN PRN Reason: Hypoglycemia Hydroxyzine Pamoate (Vistaril Pamoate Capsule) 100 mg PO TID [facility] Last Admin: 10/05/19 06:47 Dose: 100 mg Documented by: Lactated Ringer's () 1,000 mls @ 60 mls/hr IV .[id number] [facility] Last Admin: 10/04/19 15:54 Dose: 60 mls/hr Documented by: Insulin Glargine (Lantus ([facility])) 10 units SC QHS [facility] Last Admin: 10/04/19 21:37 Dose: 10 u Documented by: Insulin Human Lispro (Humalog Kwikpen ([facility])) 0 unit SC [facility]S [facility]; Protocol Last Admin: 10/05/19 06:46 Dose: 1 u Documented by: [place] Carbonate ([place] Carbonate) 300 mg PO TID [facility] Last Admin: 10/05/19 06:46 Dose: 300 mg Documented by: Lubiprostone (Amitiza) 24 mcg PO BID [facility] Last Admin: 10/04/19 21:38 Dose: 24 mcg Documented by: Meloxicam (Mobic) 7.5 mg PO DAILY [facility] Last Admin: 10/04/19 09:44 Dose: 7.5 mg Documented by: Metformin HCl (Glucophage) 1,000 mg PO BIDCM [facility] Last Admin: 10/04/19 17:02 Dose: 1,000 mg Documented by: Metronidazole (Flagyl) 500 mg PO TID [facility] Last Admin: 10/05/19 06:46 Dose: 500 mg Documented by: Nicotine (Nicoderm Cq (Pbkc)) 21 mg TRANSDERM. DAILY [facility] Last Admin: 10/04/19 09:45 Dose: 21 mg Documented by: Nutritional Formula (Kofi - [place] Flavor) [facility] Last Admin: 10/04/19 17:02 Dose: 1 packet Documented by: Olanzapine (Zyprexa) 20 mg PO QHS [facility] Last Admin: 10/04/19 21:38 Dose: 20 mg Documented by: Ondansetron HCl (Zofran) 4 mg IV Q6H PRN PRN PRN Reason: NAUSEA Oxycodone HCl (Oxyir) 10 mg PO Q6H PRN PRN PRN Reason: Pain Score 6-10/10 Last Admin: 10/04/19 22:01 Dose: 10 mg Documented by: Pantoprazole Sodium (Protonix) 20 mg PO DAILY [facility] Last Admin: 10/04/19 09:44 Dose: 20 mg Documented by: Promethazine HCl (Phenergan Tablet) 25 mg PO 4X/DAY PRN PRN PRN Reason: NAUSEA/VOMITING Sodium Chloride () 10 - 40 ml IV UD PRN PRN Reason: SALINE FLUSH Last Admin: 10/04/19 11:11 Dose: 10 ml Documented by: Spironolactone (Aldactone) 100 mg PO DAILY [facility] Last Admin: 10/04/19 09:43 Dose: 100 mg Documented by: Tizanidine HCl (Zanaflex) 4 mg PO 4X/DAY [facility] Last Admin: 10/04/19 21:39 Dose: 4 mg Documented by: Trazodone HCl (Desyrel) 50 mg PO QHS [facility] Last Admin: 10/04/19 23:50 Dose: 50 mg Documented by: [place] Vital Signs/Narrative: Vital Signs Temp Pulse Resp BP Pulse Ox 10/05/19 07:00 98 10/05/19 06:35 97.7 F L 88 18 138/74 H 96 Medical Necessity - Tobacco Use Smoking Status: Current every day smoker Tobacco Use: Cigarettes Assessment/Plan All Active Problems (Last Updated 10/05/19 @ 15:32 by Sonali Castrejon, COT ASSEMBLER-C) Abnormal uterine bleeding (Acute) Abscess of neck (Acute) Open wound involving head with neck, complicated (Acute) Unspecified open wound of unspecified part of head, subsequent encounter (Acute) Unspecified open wound of unspecified part of neck, subsequent encounter (Acute) Folliculitis (Acute) Abscess, scalp (Acute) Muscle spasms of neck (Acute) Cellulitis of right hand (Acute) Cat bite (Acute) Cat bite of right hand with infection (Acute) Abscess of dorsum of right hand (Acute) Necrotizing soft tissue infection (Acute) History of section (Acute) History of tonsillectomy (Acute) Cat scratch of left hand with infection (Acute) Cat scratch of right hand with infection (Acute) Cat scratch (Acute) Open wound of left axillary region (Acute) Abscess of sternal region (Acute) Open wound of chest wall, complicated (Acute) Abscess of breast (Acute) 1. Hidradenitis of the right axilla, status post recent surgeries, no surgery planned by plastic surgery Was on IV vancomycin and Flagyl by primary service. Started on Augmentin, Flagyl, spironolactone 2. Maniac episode in the bipolar patient. Patient has auditory and sometimes visual hallucinations Somehow improved, patient has been able to sleep, Patient had been off her medications more than 3 days prior to admission Resumed on her home medications Outpatient appointment planned 3. Type II DM, continue on home glipizide, metformin, Lantus, insulin sliding scale 4. Nicotine dependence, on nicotine patch 5. Hyperlipidemia, on statin 6. Obesity, BMI 37.1, diet and exercises recommended 7. GERD on PPI 8. DVT Prophylaxis with early ambulation Code Visit Inpatient E&M: 09703 Subs Hosp L2
--- NOTE | 2019-10-05 09:11 | CASEMGMT ---
Social Work Note SW received call from Alo Godoy at [facility]. Pt did have a CM at [facility] but that CM left the agency and pt is now on a waitlist for CM as [facility] is trying to hire a CM. Alo confirms that pt had an appointment with Dr. Friend and pt will need to reschedule that appointment. Nishi King HOSPICE TEAM LEAD, ASSISTANT MEDIA BUYER
--- NOTE | 2019-10-05 09:55 | NURSING ---
Dr. Osuna requested this RN to call the crisis center- Dr. Osuna spoke with Jam stating pt needs intervention as soon as possible. Jam returned call to this RN and states that patient will have appointment scheduled with psychiatry on Tuesday at 1230.
[2019-10-05] MEDS: Lactated Ringers 1,000 ML 60 ML IV (10:26)
[2019-10-05] MEDS: tiZANidine HCl 2 MG Tablet 4 MG PO ×4 (10:49→21:54)
[2019-10-05] MEDS: Gabapentin 300 MG Capsule PO ×4 (10:49→21:53)
[2019-10-05] MEDS: Docusate Sodium 100 MG Capsule PO (10:50)
[2019-10-05] MEDS: DULoxetine Hcl 60 MG Capsule 120 MG PO (10:50)
[2019-10-05 10:51] LABS: Bedside Glucose 156 mg/dL (70-110)
[2019-10-05] MEDS: Spironolactone 50 MG Tablet 100 MG PO (10:51)
[2019-10-05] MEDS: Pantoprazole Sodium 20 MG Tablet PO (10:51)
[2019-10-05] MEDS: glipiZIDE 10 MG Tablet 15 MG PO (10:52)
[2019-10-05] MEDS: metFORMIN HCl 1,000 MG Tablet 1000 MG PO ×2 (10:54→17:33)
[2019-10-05] MEDS: Lubiprostone 24 MCG Capsule PO ×2 (10:55→21:52)
[2019-10-05] MEDS: Amox/Clavulanate 875 MG Tablet PO ×2 (10:55→21:52)
[2019-10-05] MEDS: Meloxicam 7.5 MG Tablet PO (10:56)
[2019-10-05] MEDS: oxyCODONE 5 MG Tablet 10 MG PO ×2 (11:04→17:33)
--- NOTE | 2019-10-05 15:21 | PCM.PN.SRG ---
- Physical Exam Vitals/I&O's: Vital Signs Temp Pulse Resp BP Pulse Ox 98.3 F 91 16 114/72 95 10/05/19 10:34 10/05/19 10:34 10/05/19 10:34 10/05/19 10:34 10/05/19 10:34 Oxygen Delivery Method Room Air Weight: 223 lb 1.584 oz Body Mass Index (BMI) 37.1 Finger Stick Blood Glucose 219 Intake and Output for Last 24 Hours 10/03/19 10/04/19 10/05/19 23:59 23:59 23:59 Intake Total 531 / 531 2111.67 / 2811.67 1800 / 1800 Output Total 1750 / 1750 900 / 900 Balance 531 / 531 361.67 / 1061.67 900 / 900 General: Alert, Oriented x3 HEENT: Atraumatic Oral: Moist Mucosa Lungs: Rhonchi, Wheezes - Coarse rhonchi and wheezes scattered throughout. Moist cough present Cardiovascular: Regular rate Abdomen: Soft, Non Tender Extremities: No edema Skin: Ulcer/ Wound - Right axillar dressing changed and the wound bed is pink and much improved compared to two days ago Musculoskeletal: No Muscle Wasting Neurological: Neuro grossly intact Psych/Mental Status: Anxious, Depressed, Manic - Patient states she is not able to turn my head off. She is having stress related to not having any place to go once she is discharged. She states she did sleep last night for the first time in 4 days., Restless Microbiology Past 72 Hours 10/03/19 14:18 Wound - Axillary Gram Stain - Final 10/03/19 14:18 Wound - Axillary Wound Culture - Preliminary GPC Poss Enterococcus sp Gram positive harika Coag Negative Staph Laboratory Results 10/04/19 17:07: POC Glucose 134 H 10/04/19 21:36: POC Glucose 177 H 10/05/19 06:45: POC Glucose 223 H 10/05/19 10:33: POC Glucose 156 H Current Medications Albuterol Sulfate (Ventolin Aerosols) 2.5 mg INHALATION Q4H PRN PRN PRN Reason: Wheezing Last Admin: 10/03/19 21:15 Dose: 2.5 mg Documented by: Amoxicillin/Clavulanate Potassium (Augmentin Tablet) 875 mg PO BID [facility] Last Admin: 10/05/19 10:55 Dose: 875 mg Documented by: Atorvastatin Calcium (Lipitor) 20 mg PO QHS [facility] Last Admin: 10/04/19 21:39 Dose: 20 mg Documented by: Buspirone HCl (Buspar) 20 mg PO TID [facility] Last Admin: 10/05/19 13:40 Dose: 20 mg Documented by: Clonidine (Catapres) 0.1 mg PO DAILY PRN PRN PRN Reason: ANXIETY Dextrose (D50w Syringe) 0 gm IV X1 PRN; Protocol PRN Reason: Hypoglycemia Diazepam (Valium) 5 mg PO TID PRN PRN PRN Reason: SPASMS Last Admin: 10/04/19 22:01 Dose: 5 mg Documented by: Docusate Sodium (Colace) 100 mg PO BID [facility] Last Admin: 10/05/19 10:50 Dose: 100 mg Documented by: Duloxetine HCl (Cymbalta) 120 mg PO DAILY [facility] Last Admin: 10/05/19 10:50 Dose: 120 mg Documented by: Gabapentin (Neurontin) 300 mg PO 4X/DAY [facility] Last Admin: 10/05/19 13:40 Dose: 300 mg Documented by: Glipizide (Glucotrol) 15 mg PO DAILY@0730 [facility] Last Admin: 10/05/19 10:52 Dose: 15 mg Documented by: Glucagon () 1 mg IM .X1 PRN PRN Reason: Hypoglycemia Hydroxyzine Pamoate (Vistaril Pamoate Capsule) 100 mg PO TID [facility] Last Admin: 10/05/19 13:38 Dose: 100 mg Documented by: Lactated Ringer's () 1,000 mls @ 60 mls/hr IV .[id number] [facility] Last Admin: 10/05/19 10:26 Dose: 60 mls/hr Documented by: Insulin Glargine (Lantus (Bkc)) 10 units SC QHS [facility] Last Admin: 10/04/19 21:37 Dose: 10 u Documented by: Insulin Human Lispro (Humalog Kwikpen (Bkc)) 0 unit SC ACHS [facility]; Protocol Last Admin: 10/05/19 10:56 Dose: 1 u Documented by: [employer] Carbonate ([employer] Carbonate) 300 mg PO TID [facility] Last Admin: 10/05/19 13:38 Dose: 300 mg Documented by: Lubiprostone (Amitiza) 24 mcg PO BID [facility] Last Admin: 10/05/19 10:55 Dose: 24 mcg Documented by: Meloxicam (Mobic) 7.5 mg PO DAILY [facility] Last Admin: 10/05/19 10:56 Dose: 7.5 mg Documented by: Metformin HCl (Glucophage) 1,000 mg PO BIDCM [facility] Last Admin: 10/05/19 10:54 Dose: 1,000 mg Documented by: Metronidazole (Flagyl) 500 mg PO TID [facility] Last Admin: 10/05/19 13:40 Dose: 500 mg Documented by: Nicotine (Nicoderm Cq (Pbkc)) 21 mg TRANSDERM. DAILY [facility] Last Admin: 10/05/19 10:49 Dose: 21 mg Documented by: Nutritional Formula ([place] - [place] Fl[facility]) [facility] Last Admin: 10/05/19 10:50 Dose: 1 packet Documented by: Olanzapine (Zyprexa) 20 mg PO QHS [facility] Last Admin: 10/04/19 21:38 Dose: 20 mg Documented by: Ondansetron HCl (Zofran) 4 mg IV Q6H PRN PRN PRN Reason: NAUSEA Oxycodone HCl (Oxyir) 10 mg PO Q6H PRN PRN PRN Reason: Pain Score 6-10/10 Last Admin: 10/05/19 11:04 Dose: 10 mg Documented by: Pantoprazole Sodium (Protonix) 20 mg PO DAILY [facility] Last Admin: 10/05/19 10:51 Dose: 20 mg Documented by: Promethazine HCl (Phenergan Tablet) 25 mg PO 4X/DAY PRN PRN PRN Reason: NAUSEA/VOMITING Sodium Chloride () 10 - 40 ml IV UD PRN PRN Reason: SALINE FLUSH Last Admin: 10/04/19 11:11 Dose: 10 ml Documented by: Spironolactone (Aldactone) 100 mg PO DAILY [facility] Last Admin: 10/05/19 10:51 Dose: 100 mg Documented by: Tizanidine HCl (Zanaflex) 4 mg PO 4X/DAY [facility] Last Admin: 10/05/19 13:39 Dose: 4 mg Documented by: Trazodone HCl (Desyrel) 50 mg PO QHS [facility] Last Admin: 10/04/19 23:50 Dose: 50 mg Documented by: Medical Necessity - Tobacco Use Smoking Status: Current every day smoker Tobacco Use: Cigarettes Assessment/Plan All Active Problems (Last Updated 10/05/19 @ 15:32 by Sonali Castrejon, TIFFANIE-C) Abnormal uterine bleeding (Acute) Abscess of neck (Acute) Open wound involving head with neck, complicated (Acute) Unspecified open wound of unspecified part of head, subsequent encounter (Acute) Unspecified open wound of unspecified part of neck, subsequent encounter (Acute) Folliculitis (Acute) Abscess, scalp (Acute) Muscle spasms of neck (Acute) Cellulitis of right hand (Acute) Cat bite (Acute) Cat bite of right hand with infection (Acute) Abscess of dorsum of right hand (Acute) Necrotizing soft tissue infection (Acute) History of section (Acute) History of tonsillectomy (Acute) Cat scratch of left hand with infection (Acute) Cat scratch of right hand with infection (Acute) Cat scratch (Acute) Open wound of left axillary region (Acute) Abscess of sternal region (Acute) Open wound of chest wall, complicated (Acute) Abscess of breast (Acute) 1. Right axilla ulcer/Skin graft compromise - Ulcer is pink and appears improved compared to 2 days ago. Will continue Daily silver dressing changes. She continues to be on Vancomycin. 2. Diabetes type 2 - she is currently back on her insulin and routine blood sugars are being monitored. She states she has been eating. 3. General Anxiety Disorder/Borderline Personality Disorder - She is back on her medications. She continues to be tearful. Counseling involved. 4. Cough- she currently has a moist cough with scattered wheezes and rhonchi. Will order chest x-ray for further evaluation. 5. Smoker- On nicotine patch.
[2019-10-05] MEDS: 0.9% Saline Lock 10 ML Syringe IV ×2 (16:17→17:32)
[2019-10-05] MEDS: diazePAM 5 MG Tablet PO (16:17)
--- NOTE | 2019-10-05 16:25 | RAD_ITS ---
STUDY: X-RAY CHEST REASON FOR EXAM: Female, 34 years old. Cough TECHNIQUE: PA and lateral views of the chest COMPARISON: X-ray chest September 20, 2019 FINDINGS: Bibasilar atelectasis is present. There is no consolidation. There are no pleural effusions. There is no pneumothorax. The heart is normal in size. The visualized osseous structures are within normal limits. RAD/Chest PA and Lateral IMPRESSION: Bibasilar atelectasis. No consolidation. Electronically Signed: Peyman Chin, at 17:19 EST Tel , Service support ,
[2019-10-05 16:36] LABS: Bedside Glucose 133 mg/dL (70-110)
[2019-10-05] MEDS: traZODone 50 MG Tablet PO (21:52)
[2019-10-05] MEDS: Atorvastatin Calcium 20 MG Tablet PO (21:53)
[2019-10-05] MEDS: OLANZapine 10 MG Tablet 20 MG PO (21:54)
[2019-10-05 22:05] LABS: Bedside Glucose 109 mg/dL (70-110)
[2019-10-06] VITALS (10 sets, daily range): BP systolic 104–134; BP diastolic 70–76; PULSE 79–92; RESP 16–20; TEMP 36.3–36.9; O2SAT 95–99
[2019-10-06] MEDS: Lactated Ringers 1,000 ML 60 ML IV ×2 (02:59→18:46)
[2019-10-06] MEDS: oxyCODONE 5 MG Tablet 10 MG PO ×3 (04:18→16:46)
[2019-10-06] MEDS: busPIRone 5 MG Tablet 20 MG PO ×3 (06:39→21:50)
[2019-10-06] MEDS: metroNIDAZOLE 500 MG Tablet PO ×3 (06:40→21:50)
[2019-10-06] MEDS: Lithium Carbonate 300mg Capsule 300 MG PO ×3 (06:40→21:49)
[2019-10-06] MEDS: hydrOXYzine PAM 25 MG Capsule 100 MG PO ×3 (06:41→21:48)
[2019-10-06] MEDS: Insulin Lispro 100 UNIT/ML INSULN.PEN SC ×3 (06:45→21:53)
[2019-10-06 06:51] LABS: Bedside Glucose 194 mg/dL (70-110)
--- NOTE | 2019-10-06 07:25 | PN_ITS ---
Subjective: Follow-up on right axillary hidradenitis: Patient was seen and examined. She feels tired and catching up on sleep. Denied any new complaints. Review of systems is negative Objective: Physical exam: General: Alert, Oriented x3, Cooperative, No apparent distress HEENT: Atraumatic, PERRLA, EOMI, Normocephalic Oral: Moist Mucosa Neck: Supple, No JVD, Negative Carotid Bruits Lungs: Clear to auscultation, Normal air movement Cardiovascular: Regular rate, Regular Rhythm, Normal S1, Normal S2, No murmurs Abdomen: Bowel Sounds Present, Soft, Non Tender, Non-Distended, No Hepato- splenomegaly Extremities: No edema, dressing over her right axillary region Skin: No rashes, No breakdown Musculoskeletal: No Tenderness to Palpation of Joints or Extremities Lymphatic: No Cervical, Supraclavicular, or Inguinal Adenopathy Neurological: Cranial nerves II-XII grossly intact, Neuro grossly intact Psych/Mental Status: Normal Affect, Appropriate Vitals/I&O's: Vital Signs Temp Pulse Resp BP Pulse Ox 98.5 F 88 16 117/72 95 10/06/19 04:19 10/06/19 04:19 10/06/19 04:19 10/06/19 04:19 10/06/19 04:19 Oxygen Delivery Method Room Air Weight: 101.196 kg Body Mass Index (BMI) 37.1 Finger Stick Blood Glucose 219 Intake and Output for Last 24 Hours 10/04/19 10/05/19 10/06/19 23:59 23:59 23:59 Intake Total 2111.67 / 2811.67 2607 / 3167 1246 / 1246 Output Total 1750 / 1750 1600 / 3200 1600 / 1600 Balance 361.67 / 1061.67 1007 / -33 -354 / -354 Microbiology Past 72 Hours 10/03/19 14:18 Wound - Axillary Gram Stain - Final 10/03/19 14:18 Wound - Axillary Wound Culture - Preliminary GPC Poss Enterococcus sp Gram positive harika Coag Negative Staph Laboratory Results 10/05/19 10:33: POC Glucose 156 H 10/05/19 15:59: POC Glucose 133 H 10/05/19 22:00: POC Glucose 109 10/06/19 06:44: POC Glucose 194 H Current Medications Albuterol Sulfate (Ventolin Aerosols) 2.5 mg INHALATION Q4H PRN PRN PRN Reason: Wheezing Last Admin: 10/03/19 21:15 Dose: 2.5 mg Documented by: Amoxicillin/Clavulanate Potassium (Augmentin Tablet) 875 mg PO BID [facility] Last Admin: 10/05/19 21:52 Dose: 875 mg Documented by: Atorvastatin Calcium (Lipitor) 20 mg PO QHS [facility] Last Admin: 10/05/19 21:53 Dose: 20 mg Documented by: Buspirone HCl (Buspar) 20 mg PO TID [facility] Last Admin: 10/06/19 06:39 Dose: 20 mg Documented by: Clonidine (Catapres) 0.1 mg PO DAILY PRN PRN PRN Reason: ANXIETY Dextrose (D50w Syringe) 0 gm IV X1 PRN; Protocol PRN Reason: Hypoglycemia Diazepam (Valium) 5 mg PO TID PRN PRN PRN Reason: SPASMS Last Admin: 10/05/19 16:17 Dose: 5 mg Documented by: Docusate Sodium (Colace) 100 mg PO BID [facility] Last Admin: 10/05/19 21:50 Dose: Not Given Documented by: Duloxetine HCl (Cymbalta) 120 mg PO DAILY [facility] Last Admin: 10/05/19 10:50 Dose: 120 mg Documented by: Gabapentin (Neurontin) 300 mg PO 4X/DAY [facility] Last Admin: 10/05/19 21:53 Dose: 300 mg Documented by: Glipizide (Glucotrol) 15 mg PO DAILY@0730 [facility] Last Admin: 10/05/19 10:52 Dose: 15 mg Documented by: Glucagon () 1 mg IM .X1 PRN PRN Reason: Hypoglycemia Hydroxyzine Pamoate (Vistaril Pamoate Capsule) 100 mg PO TID [facility] Last Admin: 10/06/19 06:41 Dose: 100 mg Documented by: Lactated Ringer's () 1,000 mls @ 60 mls/hr IV .[id number] [facility] Last Admin: 10/06/19 02:59 Dose: 60 mls/hr Documented by: Insulin Glargine (Lantus (Bk)) 10 units SC QHS [facility] Last Admin: 10/05/19 22:01 Dose: 10 u Documented by: Insulin Human Lispro (Humalog Kwikpen (Bk)) 0 unit SC ACHS [facility]; Protocol Last Admin: 10/06/19 06:45 Dose: 1 u Documented by: [place] Carbonate ([place] Carbonate) 300 mg PO TID [facility] Last Admin: 10/06/19 06:40 Dose: 300 mg Documented by: Lubiprostone (Amitiza) 24 mcg PO BID [facility] Last Admin: 10/05/19 21:52 Dose: 24 mcg Documented by: Meloxicam (Mobic) 7.5 mg PO DAILY [facility] Last Admin: 10/05/19 10:56 Dose: 7.5 mg Documented by: Metformin HCl (Glucophage) 1,000 mg PO BIDCM [facility] Last Admin: 10/05/19 17:33 Dose: 1,000 mg Documented by: Metronidazole (Flagyl) 500 mg PO TID [facility] Last Admin: 10/06/19 06:40 Dose: 500 mg Documented by: Nicotine (Nicoderm Cq (Pbkc)) 21 mg TRANSDERM. DAILY [facility] Last Admin: 10/05/19 10:49 Dose: 21 mg Documented by: Nutritional Formula ([facility]ofi - [place] Flavor) [facility] Last Admin: 10/05/19 17:34 Dose: 1 packet Documented by: Olanzapine (Zyprexa) 20 mg PO QHS [facility] Last Admin: 10/05/19 21:54 Dose: 20 mg Documented by: Ondansetron HCl (Zofran) 4 mg IV Q6H PRN PRN PRN Reason: NAUSEA Oxycodone HCl (Oxyir) 10 mg PO Q6H PRN PRN PRN Reason: Pain Score 6-10/10 Last Admin: 10/06/19 04:18 Dose: 10 mg Documented by: Pantoprazole Sodium (Protonix) 20 mg PO DAILY [facility] Last Admin: 10/05/19 10:51 Dose: 20 mg Documented by: Promethazine HCl (Phenergan Tablet) 25 mg PO 4X/DAY PRN PRN PRN Reason: NAUSEA/VOMITING Sodium Chloride () 10 - 40 ml IV UD PRN PRN Reason: SALINE FLUSH Last Admin: 10/05/19 17:32 Dose: 20 ml Documented by: Spironolactone (Aldactone) 100 mg PO DAILY [facility] Last Admin: 10/05/19 10:51 Dose: 100 mg Documented by: Tizanidine HCl (Zanaflex) 4 mg PO 4X/DAY [facility] Last Admin: 10/05/19 21:54 Dose: 4 mg Documented by: Trazodone HCl (Desyrel) 50 mg PO QHS [facility] Last Admin: 10/05/19 21:52 Dose: 50 mg Documented by: Zolpidem Tartrate (Ambien (Generic)) 5 mg PO QHS PRN PRN PRN Reason: SLEEP STROKE Vital Signs/Narrative: Vital Signs Temp Pulse Resp BP Pulse Ox 10/06/19 04:19 98.5 F 88 16 117/72 95 Medical Necessity - Tobacco Use Smoking Status: Current every day smoker Tobacco Use: Cigarettes Assessment/Plan All Active Problems (Last Updated 10/05/19 @ 15:32 by Sonali Castrejon NP-C) Other complications of skin graft (allograft) (autograft) (Acute) Abnormal uterine bleeding (Acute) Abscess of neck (Acute) Open wound involving head with neck, complicated (Acute) Unspecified open wound of unspecified part of head, subsequent encounter (Acute) Unspecified open wound of unspecified part of neck, subsequent encounter (Acute) Folliculitis (Acute) Abscess, scalp (Acute) Muscle spasms of neck (Acute) Cellulitis of right hand (Acute) Cat bite (Acute) Cat bite of right hand with infection (Acute) Abscess of dorsum of right hand (Acute) Necrotizing soft tissue infection (Acute) History of section (Acute) History of tonsillectomy (Acute) Cat scratch of left hand with infection (Acute) Cat scratch of right hand with infection (Acute) Cat scratch (Acute) Open wound of left axillary region (Acute) Abscess of sternal region (Acute) Open wound of chest wall, complicated (Acute) Abscess of breast (Acute) 1. Hidradenitis of the right axilla, status post recent surgeries, no surgery planned by plastic surgery on Augmentin, Flagyl, spironolactone per primary service 2. Maniac episode in the bipolar patient. Patient has auditory and sometimes visual hallucinations Improving, continue on home regimen Outpatient appointment planned with psychiatry for Tuesday. 3. Type II DM, continue on home glipizide, metformin, Lantus, insulin sliding scale 4. Nicotine dependence, on nicotine patch 5. Hyperlipidemia, on statin 6. Obesity, BMI 37.1, diet and exercises recommended 7. GERD on PPI 8. DVT Prophylaxis with early ambulation Code Visit Inpatient E&M: 73435 Subs Hosp L2
[2019-10-06] MEDS: glipiZIDE 10 MG Tablet 15 MG PO (09:57)
[2019-10-06] MEDS: metFORMIN HCl 1,000 MG Tablet 1000 MG PO ×2 (09:57→16:49)
[2019-10-06] MEDS: Pantoprazole Sodium 20 MG Tablet PO (09:58)
[2019-10-06] MEDS: Amox/Clavulanate 875 MG Tablet PO ×2 (09:58→21:50)
[2019-10-06] MEDS: Spironolactone 50 MG Tablet 100 MG PO (10:01)
[2019-10-06] MEDS: DULoxetine Hcl 60 MG Capsule 120 MG PO (10:02)
[2019-10-06] MEDS: Gabapentin 300 MG Capsule PO ×4 (10:02→21:49)
[2019-10-06] MEDS: Meloxicam 7.5 MG Tablet PO (10:03)
[2019-10-06] MEDS: tiZANidine HCl 2 MG Tablet 4 MG PO ×4 (10:03→21:49)
[2019-10-06] MEDS: Albuterol 2.5 MG/3 ML VIAL.NEB. INHALATION ×3 (11:32→19:45)
[2019-10-06] MEDS: Ondansetron 4 MG/2 ML Vial IV (11:48)
[2019-10-06] MEDS: diazePAM 5 MG Tablet PO ×2 (11:49→20:09)
[2019-10-06 12:20] LABS: Bedside Glucose 174 mg/dL (70-110)
[2019-10-06 16:55] LABS: Bedside Glucose 136 mg/dL (70-110)
--- NOTE | 2019-10-06 18:58 | PCM.PN.SRG ---
Subjective: Postop #33 Patient still acting less manic. She appears more calm. Sleeping a little bit more. She states she feels a little better and is not hearing voices. - Physical Exam Vitals/I&O's: Vital Signs Temp Pulse Resp BP Pulse Ox 97.6 F L 85 16 134/70 H 99 10/06/19 09:50 10/06/19 15:40 10/06/19 15:40 10/06/19 09:50 10/06/19 15:40 Oxygen Delivery Method Room Air Weight: 223 lb 1.584 oz Body Mass Index (BMI) 37.1 Finger Stick Blood Glucose 219 Intake and Output for Last 24 Hours 10/04/19 10/05/19 10/06/19 23:59 23:59 23:59 Intake Total 2111.67 / 2811.67 2607 / 3167 2793 / 2793 Output Total 1750 / 1750 1600 / 3200 2300 / 2300 Balance 361.67 / 1061.67 1007 / -33 493 / 493 General: Alert, Oriented x3 HEENT: PERRLA, EOMI Oral: Moist Mucosa Neck: Supple Abdomen: Soft, Non-Distended Skin: Ulcer/ Wound - er/ Wound - right axillary wound is stable. Good granulation tissue seen. Minimal exudate. Good range of motion of shoulder. Lymphatic: - - no axillary adenopathy. Neurological: Cranial nerves II-XII grossly intact Psych/Mental Status: Normal Affect, Appropriate Microbiology Past 72 Hours 10/03/19 14:18 Wound - Axillary Gram Stain - Final 10/03/19 14:18 Wound - Axillary Wound Culture - Final Enterococcus faecalis Gram positive harika Coag Negative Staph Laboratory Results 10/05/19 22:00: POC Glucose 109 10/06/19 06:44: POC Glucose 194 H 10/06/19 11:45: POC Glucose 174 H 10/06/19 16:48: POC Glucose 136 H Diagnostic Data Chest X-Ray 10/05/19 16:25 IMPRESSION: Bibasilar atelectasis. No consolidation. Electronically Signed: Peyman Chin, at 17:19 EST Tel , Service support , Current Medications Albuterol Sulfate (Ventolin Aerosols) 2.5 mg INHALATION Q4H PRN PRN PRN Reason: Wheezing Last Admin: 10/06/19 15:40 Dose: 2.5 mg Documented by: Amoxicillin/Clavulanate Potassium (Augmentin Tablet) 875 mg PO BID [facility] Last Admin: 10/06/19 09:58 Dose: 875 mg Documented by: Atorvastatin Calcium (Lipitor) 20 mg PO QHS [facility] Last Admin: 10/05/19 21:53 Dose: 20 mg Documented by: Buspirone HCl (Buspar) 20 mg PO TID [facility] Last Admin: 10/06/19 15:43 Dose: 20 mg Documented by: Clonidine (Catapres) 0.1 mg PO DAILY PRN PRN PRN Reason: ANXIETY Dextrose (D50w Syringe) 0 gm IV X1 PRN; Protocol PRN Reason: Hypoglycemia Diazepam (Valium) 5 mg PO TID PRN PRN PRN Reason: SPASMS Last Admin: 10/06/19 11:49 Dose: 5 mg Documented by: Docusate Sodium (Colace) 100 mg PO BID [facility] Last Admin: 10/06/19 10:01 Dose: Not Given Documented by: Duloxetine HCl (Cymbalta) 120 mg PO DAILY [facility] Last Admin: 10/06/19 10:02 Dose: 120 mg Documented by: Gabapentin (Neurontin) 300 mg PO 4X/DAY [facility] Last Admin: 10/06/19 18:45 Dose: 300 mg Documented by: Glipizide (Glucotrol) 15 mg PO DAILY@0730 [facility] Last Admin: 10/06/19 09:57 Dose: 15 mg Documented by: Glucagon () 1 mg IM .X1 PRN PRN Reason: Hypoglycemia Hydroxyzine Pamoate (Vistaril Pamoate Capsule) 100 mg PO TID [facility] Last Admin: 10/06/19 15:44 Dose: 100 mg Documented by: Lactated Ringer's () 1,000 mls @ 60 mls/hr IV .[id number] [facility] Last Admin: 10/06/19 18:46 Dose: 60 mls/hr Documented by: Insulin Glargine (Lantus (Bkc)) 10 units SC QHS [facility] Last Admin: 10/05/19 22:01 Dose: 10 u Documented by: Insulin Human Lispro (Humalog Kwikpen (Bkc)) 0 unit SC ACHS [facility]; Protocol Last Admin: 10/06/19 16:48 Dose: Not Given Documented by: [place] Carbonate ([place] Carbonate) 300 mg PO TID [facility] Last Admin: 10/06/19 15:45 Dose: 300 mg Documented by: Lubiprostone (Amitiza) 24 mcg PO BID [facility] Last Admin: 10/06/19 09:56 Dose: Not Given Documented by: Meloxicam (Mobic) 7.5 mg PO DAILY [facility] Last Admin: 10/06/19 10:03 Dose: 7.5 mg Documented by: Metformin HCl (Glucophage) 1,000 mg PO BIDCM [facility] Last Admin: 10/06/19 16:49 Dose: 1,000 mg Documented by: Metronidazole (Flagyl) 500 mg PO TID [facility] Last Admin: 10/06/19 15:43 Dose: 500 mg Documented by: Nicotine (Nicoderm Cq (Pbkc)) 21 mg TRANSDERM. DAILY [facility] Last Admin: 10/06/19 10:01 Dose: 21 mg Documented by: Nutritional Formula ([place]ofi - [place] Flavor) [facility] Last Admin: 10/06/19 16:49 Dose: 1 packet Documented by: Olanzapine (Zyprexa) 20 mg PO QHS [facility] Last Admin: 10/05/19 21:54 Dose: 20 mg Documented by: Ondansetron HCl (Zofran) 4 mg IV Q6H PRN PRN PRN Reason: NAUSEA Last Admin: 10/06/19 11:48 Dose: 4 mg Documented by: Oxycodone HCl (Oxyir) 10 mg PO Q6H PRN PRN PRN Reason: Pain Score 6-10/10 Last Admin: 10/06/19 16:46 Dose: 10 mg Documented by: Pantoprazole Sodium (Protonix) 20 mg PO DAILY [facility] Last Admin: 10/06/19 09:58 Dose: 20 mg Documented by: Promethazine HCl (Phenergan Tablet) 25 mg PO 4X/DAY PRN PRN PRN Reason: NAUSEA/VOMITING Sodium Chloride () 10 - 40 ml IV UD PRN PRN Reason: SALINE FLUSH Last Admin: 10/05/19 17:32 Dose: 20 ml Documented by: Spironolactone (Aldactone) 100 mg PO DAILY [facility] Last Admin: 10/06/19 10:01 Dose: 100 mg Documented by: Tizanidine HCl (Zanaflex) 4 mg PO 4X/DAY [facility] Last Admin: 10/06/19 18:45 Dose: 4 mg Documented by: Trazodone HCl (Desyrel) 50 mg PO QHS [facility] Last Admin: 10/05/19 21:52 Dose: 50 mg Documented by: Zolpidem Tartrate (Ambien (Generic)) 5 mg PO QHS PRN PRN PRN Reason: SLEEP Medical Necessity - Tobacco Use Smoking Status: Current every day smoker Tobacco Use: Cigarettes Assessment/Plan All Active Problems (Last Updated 10/05/19 @ 15:32 by Sonali Castrejon, SILK SCREENER-C) Other complications of skin graft (allograft) (autograft) (Acute) Abnormal uterine bleeding (Acute) Abscess of neck (Acute) Open wound involving head with neck, complicated (Acute) Unspecified open wound of unspecified part of head, subsequent encounter (Acute) Unspecified open wound of unspecified part of neck, subsequent encounter (Acute) Folliculitis (Acute) Abscess, scalp (Acute) Muscle spasms of neck (Acute) Cellulitis of right hand (Acute) Cat bite (Acute) Cat bite of right hand with infection (Acute) Abscess of dorsum of right hand (Acute) Necrotizing soft tissue infection (Acute) History of section (Acute) History of tonsillectomy (Acute) Cat scratch of left hand with infection (Acute) Cat scratch of right hand with infection (Acute) Cat scratch (Acute) Open wound of left axillary region (Acute) Abscess of sternal region (Acute) Open wound of chest wall, complicated (Acute) Abscess of breast (Acute) 1. Right axillary hidradenitis wound. 2. Compromised skin graft right axilla. 3. Hidradenitis. 4. Manic episode in a bipolar patient. 5. Diabetes mellitus. 6. Smoker. 7. Atelectasis. The IV antibiotics were stopped (Vancomycin and Flagyl) for the right axillary wound culture that showed Staphylococcus aureus, Enterococcus faecalis, and Prevotella corporis. The current wound culture also showed Enterococcus faecalis. She was started on Augmentin. Continue Silver dressing changes to the right axilla. Encourage range of motion exercises to minimize stiffness. HgbA1c was 7.4. For her manic episode, she had been roaming the streets the last few days and didn't take her meds. With continuation of her meds, her symptoms are resolving. With resolution of her symptoms, she will not heed another Psych inpatient visit. At discharge, will need to decide a place for her to go. She states she does not want to live with her mother. She had seen [facility] a few days ago and can followup with them at discharge as well. [facility]. She states she has a [facility] appointment on Tuesday. She has a [facility] appointment on Tuesday. After discharge she will call her Psychiatrist for an appointment to re-evaluate her meds for any changes. She states she sees him every 6 months. As far as living situation goes, her mother stated she will pick her up at discharge. [facility]. This will be coordinated as well with [facility]. CXR yesterday showed atelectasis. She is using the incentive spirometry and is getting Albuterol treatments. Discussed with her the importance of taking deep breaths. Will repeat the CXR as an outpatient to make sure it continues to resolve. Encouraged patient to stop smoking as it may have deleterious effects on wound healing.
--- NOTE | 2019-10-06 20:00 | NURSING ---
Pt refusing telemetry
[2019-10-06 21:16] LABS: Bedside Glucose 237 mg/dL (70-110)
[2019-10-06] MEDS: OLANZapine 10 MG Tablet 20 MG PO (21:48)
[2019-10-06] MEDS: Atorvastatin Calcium 20 MG Tablet PO (21:50)
[2019-10-06] MEDS: Lubiprostone 24 MCG Capsule PO (21:50)
[2019-10-06] MEDS: traZODone 50 MG Tablet PO (21:51)
[2019-10-07] MEDS: oxyCODONE 5 MG Tablet 10 MG PO ×4 (00:37→19:32)
[2019-10-07 03:40] VITALS: BP 111/70; PULSE 79; RESP 18; TEMP 36.7; O2SAT 96
[2019-10-07] MEDS: hydrOXYzine PAM 25 MG Capsule 100 MG PO ×3 (05:53→21:15)
[2019-10-07] MEDS: busPIRone 5 MG Tablet 20 MG PO ×3 (05:54→21:09)
[2019-10-07] MEDS: Lithium Carbonate 300mg Capsule 300 MG PO ×3 (05:54→21:13)
[2019-10-07] MEDS: metroNIDAZOLE 500 MG Tablet PO ×3 (05:55→21:10)
[2019-10-07 06:32] LABS: Amphetamine Urine VISTA NEGATIVE (<1000 ng/mL); Barbiturate Urine VISTA NEGATIVE (< 200 ng/mL); Benzodiazepine Urine VISTA POSITIVE (< 200 ng/mL); Cocaine Urine VISTA NEGATIVE (< 300 ng/mL); Ecstacy Urine VISTA NEGATIVE (< 500 ng/mL); Methadone Urine VISTA NEGATIVE (< 300 ng/mL); PCP Urine VISTA NEGATIVE (< 25 ng/mL); THC Urine VISTA POSITIVE (< 50 ng/mL); Vista UDS pH Range 6
[2019-10-07 06:55] LABS: Bedside Glucose 174 mg/dL (70-110)
[2019-10-07] MEDS: Insulin Lispro 100 UNIT/ML INSULN.PEN SC ×3 (07:35→21:30)
[2019-10-07] MEDS: glipiZIDE 10 MG Tablet 15 MG PO (07:36)
[2019-10-07] MEDS: metFORMIN HCl 1,000 MG Tablet 1000 MG PO ×2 (07:38→17:11)
--- NOTE | 2019-10-07 09:11 | PCM.PN.HOSP ---
Subjective: Follow-up on right axillary hidradenitis: Patient was seen and examined. Denied any new complaints. She has been sleeping more. Review of systems is negative. Objective: Physical exam: General: Alert, Oriented x3, Cooperative, No apparent distress HEENT: Atraumatic, PERRLA, EOMI, Normocephalic Oral: Moist Mucosa Neck: Supple, No JVD, Negative Carotid Bruits Lungs: Clear to auscultation, Normal air movement Cardiovascular: Regular rate, Regular Rhythm, Normal S1, Normal S2, No murmurs Abdomen: Bowel Sounds Present, Soft, Non Tender, Non-Distended, No Hepato-splenomegaly Extremities: No edema, dressing over her right axillary region Skin: No rashes, No breakdown Musculoskeletal: No Tenderness to Palpation of Joints or Extremities Lymphatic: No Cervical, Supraclavicular, or Inguinal Adenopathy Neurological: Cranial nerves II-XII grossly intact, Neuro grossly intact Psych/Mental Status: Normal Affect, Appropriate Vitals/I&O's: Vital Signs Temp Pulse Resp BP Pulse Ox 98.0 F 79 18 111/70 96 10/07/19 03:40 10/07/19 03:40 10/07/19 03:40 10/07/19 03:40 10/07/19 03:40 Oxygen Delivery Method Room Air Weight: 101.196 kg Body Mass Index (BMI) 37.1 Finger Stick Blood Glucose 219 Intake and Output for Last 24 Hours 10/05/19 10/06/19 10/07/19 23:59 23:59 23:59 Intake Total 2607 / 3167 3443 / 3893 800 / 800 Output Total 1600 / 3200 2300 / 2300 Balance 1007 / -33 1143 / 1593 800 / 800 Microbiology Past 72 Hours 10/03/19 14:18 Wound - Axillary Gram Stain - Final 10/03/19 14:18 Wound - Axillary Wound Culture - Final Enterococcus faecalis Gram positive harika Coag Negative Staph Laboratory Results 10/06/19 11:45: POC Glucose 174 H 10/06/19 16:48: POC Glucose 136 H 10/06/19 21:10: POC Glucose 237 H 10/07/19 05:58: POC Glucose 174 H 10/07/19 06:00: Urine Opiates Screen NEGATIVE, Urine Methadone Screen NEGATIVE, Ur Barbiturates Screen NEGATIVE, Ur Phencyclidine Scrn NEGATIVE, Ur Amphetamines Screen NEGATIVE, U Methamphetamin-MDMA NEGATIVE, U Benzodiazepines Scrn POSITIVE H, Urine Cocaine Screen NEGATIVE, U Cannabinoids Screen POSITIVE H, Ur Drug Screen Comment Current Medications Albuterol Sulfate (Ventolin Aerosols) 2.5 mg INHALATION Q4H PRN PRN PRN Reason: Wheezing Last Admin: 10/06/19 19:45 Dose: 2.5 mg Documented by: Amoxicillin/Clavulanate Potassium (Augmentin Tablet) 875 mg PO BID [facility] Last Admin: 10/06/19 21:50 Dose: 875 mg Documented by: Atorvastatin Calcium (Lipitor) 20 mg PO QHS [facility] Last Admin: 10/06/19 21:50 Dose: 20 mg Documented by: Buspirone HCl (Buspar) 20 mg PO TID [facility] Last Admin: 10/07/19 05:54 Dose: 20 mg Documented by: Clonidine (Catapres) 0.1 mg PO DAILY PRN PRN PRN Reason: ANXIETY Dextrose (D50w Syringe) 0 gm IV X1 PRN; Protocol PRN Reason: Hypoglycemia Diazepam (Valium) 5 mg PO TID PRN PRN PRN Reason: SPASMS Last Admin: 10/06/19 20:09 Dose: 5 mg Documented by: Docusate Sodium (Colace) 100 mg PO BID [facility] Last Admin: 10/06/19 22:13 Dose: Not Given Documented by: Duloxetine HCl (Cymbalta) 120 mg PO DAILY [facility] Last Admin: 10/06/19 10:02 Dose: 120 mg Documented by: Gabapentin (Neurontin) 300 mg PO 4X/DAY [facility] Last Admin: 10/06/19 21:49 Dose: 300 mg Documented by: Glipizide (Glucotrol) 15 mg PO DAILY@0730 [facility] Last Admin: 10/07/19 07:36 Dose: 15 mg Documented by: Glucagon () 1 mg IM .X1 PRN PRN Reason: Hypoglycemia Hydroxyzine Pamoate (Vistaril Pamoate Capsule) 100 mg PO TID [facility] Last Admin: 10/07/19 05:53 Dose: 100 mg Documented by: Lactated Ringer's () 1,000 mls @ 60 mls/hr IV .[id number] [facility] Last Admin: 10/06/19 18:46 Dose: 60 mls/hr Documented by: Insulin Glargine (Lantus ([facility])) 10 units SC QHS [facility] Last Admin: 10/06/19 21:54 Dose: 10 u Documented by: Insulin Human Lispro (Humalog Kwikpen ([facility])) 0 unit SC [facility]; Protocol Last Admin: 10/07/19 07:35 Dose: 1 u Documented by: [place] Carbonate ([place] Carbonate) 300 mg PO TID [facility] Last Admin: 10/07/19 05:54 Dose: 300 mg Documented by: Lubiprostone (Amitiza) 24 mcg PO BID [facility] Last Admin: 10/06/19 21:50 Dose: 24 mcg Documented by: Meloxicam (Mobic) 7.5 mg PO DAILY [facility] Last Admin: 10/06/19 10:03 Dose: 7.5 mg Documented by: Metformin HCl (Glucophage) 1,000 mg PO BIDCM [facility] Last Admin: 10/07/19 07:38 Dose: 1,000 mg Documented by: Metronidazole (Flagyl) 500 mg PO TID [facility] Last Admin: 10/07/19 05:55 Dose: 500 mg Documented by: Nicotine (Nicoderm Cq ([facility])) 21 mg TRANSDERM. DAILY [facility] Last Admin: 10/06/19 10:01 Dose: 21 mg Documented by: Nutritional Formula (Kofi - [place] Flavor) [facility] Last Admin: 10/07/19 07:38 Dose: 1 packet Documented by: Olanzapine (Zyprexa) 20 mg PO QHS [facility] Last Admin: 10/06/19 21:48 Dose: 20 mg Documented by: Ondansetron HCl (Zofran) 4 mg IV Q6H PRN PRN PRN Reason: NAUSEA Last Admin: 10/06/19 11:48 Dose: 4 mg Documented by: Oxycodone HCl (Oxyir) 10 mg PO Q6H PRN PRN PRN Reason: Pain Score 6-10/10 Last Admin: 10/07/19 07:34 Dose: 10 mg Documented by: Pantoprazole Sodium (Protonix) 20 mg PO DAILY [facility] Last Admin: 10/06/19 09:58 Dose: 20 mg Documented by: Promethazine HCl (Phenergan Tablet) 25 mg PO 4X/DAY PRN PRN PRN Reason: NAUSEA/VOMITING Sodium Chloride () 10 - 40 ml IV UD PRN PRN Reason: SALINE FLUSH Last Admin: 10/05/19 17:32 Dose: 20 ml Documented by: Spironolactone (Aldactone) 100 mg PO DAILY [facility] Last Admin: 10/06/19 10:01 Dose: 100 mg Documented by: Tizanidine HCl (Zanaflex) 4 mg PO 4X/DAY [facility] Last Admin: 10/06/19 21:49 Dose: 4 mg Documented by: Trazodone HCl (Desyrel) 50 mg PO QHS [facility] Last Admin: 10/06/19 21:51 Dose: 50 mg Documented by: Zolpidem Tartrate (Ambien (Generic)) 5 mg PO QHS PRN PRN PRN Reason: SLEEP Medical Necessity - Tobacco Use Smoking Status: Current every day smoker Tobacco Use: Cigarettes Assessment/Plan All Active Problems (Last Updated 10/05/19 @ 15:32 by Sonali Castrejon PRODUCTION CONTROL TECHNOLOGIST-C) Other complications of skin graft (allograft) (autograft) (Acute) Abnormal uterine bleeding (Acute) Abscess of neck (Acute) Open wound involving head with neck, complicated (Acute) Unspecified open wound of unspecified part of head, subsequent encounter (Acute) Unspecified open wound of unspecified part of neck, subsequent encounter (Acute) Folliculitis (Acute) Abscess, scalp (Acute) Muscle spasms of neck (Acute) Cellulitis of right hand (Acute) Cat bite (Acute) Cat bite of right hand with infection (Acute) Abscess of dorsum of right hand (Acute) Necrotizing soft tissue infection (Acute) History of section (Acute) History of tonsillectomy (Acute) Cat scratch of left hand with infection (Acute) Cat scratch of right hand with infection (Acute) Cat scratch (Acute) Open wound of left axillary region (Acute) Abscess of sternal region (Acute) Open wound of chest wall, complicated (Acute) Abscess of breast (Acute) 1. Hidradenitis of the right axilla, status post recent surgeries, no surgery planned by plastic surgery on Augmentin, Flagyl, spironolactone per primary service 2. Maniac episode in the bipolar patient. Patient has auditory and sometimes visual hallucinations Improving, continue on home regimen Outpatient appointment planned with psychiatry for Tuesday. 3. Type II DM, continue on home glipizide, metformin, Lantus, insulin sliding scale 4. Nicotine dependence, on nicotine patch 5. Hyperlipidemia, on statin 6. Obesity, BMI 37.1, diet and exercises recommended 7. GERD on PPI 8. DVT Prophylaxis with early ambulation Will sign off now. Please feel free to let us know if there are any issues. Code Visit Inpatient E&M: 28961 Subs Hosp L2
[2019-10-07 09:35] VITALS: BP 119/66; PULSE 82; RESP 14; TEMP 36.9; O2SAT 97
[2019-10-07] MEDS: Pantoprazole Sodium 20 MG Tablet PO (09:37)
[2019-10-07] MEDS: Gabapentin 300 MG Capsule PO ×4 (09:37→21:13)
[2019-10-07] MEDS: tiZANidine HCl 2 MG Tablet 4 MG PO ×4 (09:38→21:16)
[2019-10-07] MEDS: Amox/Clavulanate 875 MG Tablet PO ×2 (09:38→21:09)
[2019-10-07] MEDS: DULoxetine Hcl 60 MG Capsule 120 MG PO (09:39)
[2019-10-07] MEDS: Meloxicam 7.5 MG Tablet PO (09:39)
[2019-10-07] MEDS: Spironolactone 50 MG Tablet 100 MG PO (09:40)
--- NOTE | 2019-10-07 11:11 | NURSING ---
[facility] intake is only open Tuesday-06-24. called [facility] for bed availability and they are currently full with no open beds.
[2019-10-07] MEDS: Lactated Ringers 1,000 ML 60 ML IV (11:54)
[2019-10-07] MEDS: diazePAM 5 MG Tablet PO ×2 (11:56→20:57)
[2019-10-07 12:05] LABS: Bedside Glucose 168 mg/dL (70-110)
--- NOTE | 2019-10-07 13:54 | PN.SURG_ITS ---
Subjective: Postop #34 Patient is resting comfortably. - Physical Exam Vitals/I&O's: Vital Signs Temp Pulse Resp BP Pulse Ox 98.4 F 82 14 119/66 97 10/07/19 09:35 10/07/19 09:35 10/07/19 09:35 10/07/19 09:35 10/07/19 09:35 Oxygen Delivery Method Room Air Weight: 223 lb 1.584 oz Body Mass Index (BMI) 37.1 Finger Stick Blood Glucose 219 Intake and Output for Last 24 Hours 10/05/19 10/06/19 10/07/19 23:59 23:59 23:59 Intake Total 2607 / 3167 3443 / 3893 2200 / 2200 Output Total 1600 / 3200 2300 / 2300 Balance 1007 / -33 1143 / 1593 2200 / 2200 General: Alert, Oriented x3 HEENT: PERRLA, EOMI Oral: Moist Mucosa Neck: Supple Abdomen: Soft, Non-Distended Skin: Ulcer/ Wound - right axillary wound is stable. Good granulation tissue seen. Good range of motion of right shoulder. Neurological: Cranial nerves II-XII grossly intact Psych/Mental Status: Normal Affect, Appropriate Microbiology Past 72 Hours 10/03/19 14:18 Wound - Axillary Gram Stain - Final 10/03/19 14:18 Wound - Axillary Wound Culture - Final Enterococcus faecalis Gram positive harika Coag Negative Staph Laboratory Results 10/06/19 16:48: POC Glucose 136 H 10/06/19 21:10: POC Glucose 237 H 10/07/19 05:58: POC Glucose 174 H 10/07/19 06:00: Urine Opiates Screen NEGATIVE, Urine Methadone Screen NEGATIVE, Ur Barbiturates Screen NEGATIVE, Ur Phencyclidine Scrn NEGATIVE, Ur Amphetamines Screen NEGATIVE, U Methamphetamin-MDMA NEGATIVE, U Benzodiazepines Scrn POSITIVE H, Urine Cocaine Screen NEGATIVE, U Cannabinoids Screen POSITIVE H, Ur Drug Screen Comment 10/07/19 11:52: POC Glucose 168 H Current Medications Albuterol Sulfate (Ventolin Aerosols) 2.5 mg INHALATION Q4H PRN PRN PRN Reason: Wheezing Last Admin: 10/06/19 19:45 Dose: 2.5 mg Documented by: Amoxicillin/Clavulanate Potassium (Augmentin Tablet) 875 mg PO BID MANOLO Last Admin: 10/07/19 09:38 Dose: 875 mg Documented by: Atorvastatin Calcium (Lipitor) 20 mg PO QHS [facility] Last Admin: 10/06/19 21:50 Dose: 20 mg Documented by: Buspirone HCl (Buspar) 20 mg PO TID [facility] Last Admin: 10/07/19 13:43 Dose: 20 mg Documented by: Clonidine (Catapres) 0.1 mg PO DAILY PRN PRN PRN Reason: ANXIETY Dextrose (D50w Syringe) 0 gm IV X1 PRN; Protocol PRN Reason: Hypoglycemia Diazepam (Valium) 5 mg PO TID PRN PRN PRN Reason: SPASMS Last Admin: 10/07/19 11:56 Dose: 5 mg Documented by: Docusate Sodium (Colace) 100 mg PO BID [facility] Last Admin: 10/07/19 09:37 Dose: Not Given Documented by: Duloxetine HCl (Cymbalta) 120 mg PO DAILY [facility] Last Admin: 10/07/19 09:39 Dose: 120 mg Documented by: Gabapentin (Neurontin) 300 mg PO 4X/DAY [facility] Last Admin: 10/07/19 13:43 Dose: 300 mg Documented by: Glipizide (Glucotrol) 15 mg PO DAILY@0730 [facility] Last Admin: 10/07/19 07:36 Dose: 15 mg Documented by: Glucagon () 1 mg IM .X1 PRN PRN Reason: Hypoglycemia Hydroxyzine Pamoate (Vistaril Pamoate Capsule) 100 mg PO TID [facility] Last Admin: 10/07/19 13:42 Dose: 100 mg Documented by: Lactated Ringer's () 1,000 mls @ 60 mls/hr IV .[id number] [facility] Last Admin: 10/07/19 11:54 Dose: 60 mls/hr Documented by: Insulin Glargine (Lantus (Bkc)) 10 units SC QHS [facility] Last Admin: 10/06/19 21:54 Dose: 10 u Documented by: Insulin Human Lispro (Humalog Kwikpen (Bk)) 0 unit SC ACHS [facility]; Protocol Last Admin: 10/07/19 11:54 Dose: 1 u Documented by: Ophir Carbonate (Ophir Carbonate) 300 mg PO TID [facility] Last Admin: 10/07/19 13:43 Dose: 300 mg Documented by: Lubiprostone (Amitiza) 24 mcg PO BID [facility] Last Admin: 10/07/19 09:37 Dose: Not Given Documented by: Meloxicam (Mobic) 7.5 mg PO DAILY [facility] Last Admin: 10/07/19 09:39 Dose: 7.5 mg Documented by: Metformin HCl (Glucophage) 1,000 mg PO BIDCM [facility] Last Admin: 10/07/19 07:38 Dose: 1,000 mg Documented by: Metronidazole (Flagyl) 500 mg PO TID [facility] Last Admin: 10/07/19 13:41 Dose: 500 mg Documented by: Nicotine (Nicoderm Cq (Pbkc)) 21 mg TRANSDERM. DAILY [facility] Last Admin: 10/07/19 09:39 Dose: 21 mg Documented by: Nutritional Formula ([facility] - [place] Flavor) [facility] Last Admin: 10/07/19 07:38 Dose: 1 packet Documented by: Olanzapine (Zyprexa) 20 mg PO QHS [facility] Last Admin: 10/06/19 21:48 Dose: 20 mg Documented by: Ondansetron HCl (Zofran) 4 mg IV Q6H PRN PRN PRN Reason: NAUSEA Last Admin: 10/06/19 11:48 Dose: 4 mg Documented by: Oxycodone HCl (Oxyir) 10 mg PO Q6H PRN PRN PRN Reason: Pain Score 6-10/10 Last Admin: 10/07/19 13:41 Dose: 10 mg Documented by: Pantoprazole Sodium (Protonix) 20 mg PO DAILY [facility] Last Admin: 10/07/19 09:37 Dose: 20 mg Documented by: Promethazine HCl (Phenergan Tablet) 25 mg PO 4X/DAY PRN PRN PRN Reason: NAUSEA/VOMITING Sodium Chloride () 10 - 40 ml IV UD PRN PRN Reason: SALINE FLUSH Last Admin: 10/05/19 17:32 Dose: 20 ml Documented by: Spironolactone (Aldactone) 100 mg PO DAILY [facility] Last Admin: 10/07/19 09:40 Dose: 100 mg Documented by: Tizanidine HCl (Zanaflex) 4 mg PO 4X/DAY [facility] Last Admin: 10/07/19 13:41 Dose: 4 mg Documented by: Trazodone HCl (Desyrel) 50 mg PO QHS [facility] Last Admin: 10/06/19 21:51 Dose: 50 mg Documented by: Zolpidem Tartrate (Ambien (Generic)) 5 mg PO QHS PRN PRN PRN Reason: SLEEP Medical Necessity - Tobacco Use Smoking Status: Current every day smoker Tobacco Use: Cigarettes Assessment/Plan All Active Problems (Last Reviewed 10/10/19 @ 14:44 by Sandy Crowder) Other complications of skin graft (allograft) (autograft) (Acute) Abnormal uterine bleeding (Acute) Abscess of neck (Acute) Open wound involving head with neck, complicated (Acute) Unspecified open wound of unspecified part of head, subsequent encounter (Acute) Unspecified open wound of unspecified part of neck, subsequent encounter (Acute) Folliculitis (Acute) Abscess, scalp (Acute) Muscle spasms of neck (Acute) Cellulitis of right hand (Acute) Cat bite (Acute) Cat bite of right hand with infection (Acute) Abscess of dorsum of right hand (Acute) Necrotizing soft tissue infection (Acute) History of section (Acute) History of tonsillectomy (Acute) Cat scratch of left hand with infection (Acute) Cat scratch of right hand with infection (Acute) Cat scratch (Acute) Open wound of left axillary region (Acute) Abscess of sternal region (Acute) Open wound of chest wall, complicated (Acute) Abscess of breast (Acute) 1. Right axillary hidradenitis wound. 2. Compromised skin graft right axilla. 3. Hidradenitis. 4. Manic episode in a bipolar patient. 5. Diabetes mellitus. 6. Smoker. 7. Atelectasis. The IV antibiotics were stopped (Vancomycin and Flagyl) for the right axillary wound culture that showed Staphylococcus aureus, Enterococcus faecalis, and Prevotella corporis. The current wound culture also showed Enterococcus faecalis, Gram positive harika, and Coag negative Staph. She was started on Augmentin. Continue Silver dressing changes to the right axilla. Encourage range of motion exercises to minimize stiffness. HgbA1c was 7.4. For her manic episode, she had been roaming the streets the last few days and didn't take her meds. With continuation of her meds, her symptoms are resolving. With resolution of her symptoms, she will not heed another Psych inpatient visit. At discharge, will need to decide a place for her to go. She states she does not want to live with her mother. She had seen [facility] a few days ago and can followup with them at discharge as well. [facility]. She states she has a [facility] appointment on Tuesday. She has a [facility] appointment on Tuesday. After discharge she will call her Psychiatrist for an appointment to re-evaluate her meds for any changes. She states she sees him every 6 months. As far as living situation goes, her mother stated she will pick her up at discharge. She will then go to the [facility] for temporary housing. This will be coordinated as well with [facility]. [facility] does intake on Tuesday through Tuesday. So will plan on discharge tomorrow. CXR yesterday showed atelectasis. She is using the incentive spirometry and is getting Albuterol treatments. Discussed with her the importance of taking deep breaths. Will repeat the CXR as an outpatient to make sure it continues to resolve. Encouraged patient to stop smoking as it may have deleterious effects on wound healing.
[2019-10-07 17:00] VITALS: BP 119/73; PULSE 70; RESP 16; TEMP 36.4; O2SAT 99
[2019-10-07 17:21] LABS: Bedside Glucose 140 mg/dL (70-110)
[2019-10-07] MEDS: Lubiprostone 24 MCG Capsule PO (21:08)
[2019-10-07] MEDS: Atorvastatin Calcium 20 MG Tablet PO (21:11)
[2019-10-07] MEDS: traZODone 50 MG Tablet PO (21:13)
[2019-10-07] MEDS: OLANZapine 10 MG Tablet 20 MG PO (21:18)
[2019-10-07 21:40] LABS: Bedside Glucose 240 mg/dL (70-110)
[2019-10-07 23:00] VITALS: BP 114/77; PULSE 78; RESP 16; TEMP 36.5; O2SAT 100
[2019-10-08] MEDS: Zolpidem Tartrate 5 MG Tablet PO
[2019-10-08 05:00] VITALS: BP 121/74; PULSE 99; RESP 16; TEMP 36.7; O2SAT 95
[2019-10-08] MEDS: Lactated Ringers 1,000 ML 60 ML IV (05:47)
[2019-10-08] MEDS: busPIRone 5 MG Tablet 20 MG PO (05:50)
[2019-10-08] MEDS: Lithium Carbonate 300mg Capsule 300 MG PO (05:50)
[2019-10-08] MEDS: hydrOXYzine PAM 25 MG Capsule 100 MG PO (05:50)
[2019-10-08 06:06] LABS: Bedside Glucose 164 mg/dL (70-110)
[2019-10-08] MEDS: Insulin Lispro 100 UNIT/ML INSULN.PEN SC (06:37)
[2019-10-08 08:20] VITALS: BP 107/67; PULSE 94; RESP 18; TEMP 36.8; O2SAT 94
[2019-10-08 08:21] VITALS: BP 121/75; PULSE 89; RESP 16; TEMP 37; O2SAT 96
[2019-10-08 08:24] VITALS: RESP 16
--- NOTE | 2019-10-08 08:24 | DCINST_ITS ---
You will use the following diet at home:: Calorie/Carbohydrate Controlled (specify 1200, 1400, etc), Other - encourage nutritional supplementation with protein to help the healing process. Discharge Activity: May Shower - on the days the silver dressing is changed. May resume sexual activity in: No Restrictions Weight Bearing Status: Weight bearing as tolerated Keep extremity elevated above heart level: Right Arm Call your doctor if your incision/area has: Continuous Slow Oozing, Sudden Increased Bleeding, Increased Pain/ Swelling, Increased Redness, Foul Smelling Discharge, Swelling at the incision site Call your doctor if you observe: Fever of 101 or Higher, Coldness, Increased Pain, Shortness of breath, Chest pain, Calf discomfort, Uncontrolled pain Suture Line Care: - - silver dressing changes three times per week. Change Dressing in (Days):: 2 - silver dressng changes three times per week. Cleanse incision/area with: Soap & Water - may cleanse the wound with soap and water on the days the dressing is changed., - - patient may shower on the days the silver dressing is changed. Additional Instructions: Patient's mother will pick the patient up and transport her to her appointments today. Patient states she will not be staying with her mother. Therefore, [facility] will help coordinate temporary housing with the [facility]. Allergies/Adverse Reactions: Allergies lamotrigine [From Lamictal] Allergy (Mild, Verified 10/03/19 12:25) Rash adhesive tape Allergy (Verified 10/03/19 12:25) Rash Medications to take at Discharge Clonidine HCl [Catapres] 0.1 mg PO DAILY PRN PRN 01/18/14 Duloxetine Hcl [Cymbalta] 120 mg PO DAILY 01/18/14 Tizanidine HCl [Zanaflex] 4 mg PO 4X/DAY 01/18/14 glipiZIDE [Glucotrol] 15 mg PO DAILY@0730 01/18/14 metFORMIN HCl [Glucophage] 1,000 mg PO BIDCM 01/18/14 Meloxicam [Mobic] 7.5 mg PO DAILY 01/14/16 Spironolactone [Aldactone] 100 mg PO DAILY 01/14/16 [place] Carbonate [[place] Carbonate ER] 300 mg PO TID 05/10/16 gabapentin 300 mg capsule 300 mg PO 4X/DAY cap 12/01/17 Lubiprostone [Amitiza] 24 mcg PO BID 01/16/18 Omeprazole [Prilosec] 20 mg PO DAILY 01/16/18 insulin aspart U-100 100 unit/mL subcutaneous solution See Protocol SC TIDCM ml 02/14/18 Atorvastatin Calcium 20 mg PO QHS 06/21/18 Albuterol Sulfate [Ventolin Hfa] 1 - 2 inhaler INHALATION 4X/DAY PRN PRN 06/30/18 Buspirone HCl 20 mg PO TID 06/30/18 olanzapine 15 mg tablet 20 mg PO QHS 03/28/19 Insulin Glargine [Lantus SoloStar Pen] 10 units SUBCUT QHS 07/13/19 hydroxyzine pamoate 100 mg capsule 100 mg PO TID 08/27/19 Albuterol Aerosols [Ventolin Aerosols] 2.5 mg INHALATION Q4H PRN PRN vial.neb. 09/04/19 Docusate Sodium [Colace] 100 mg PO BID #60 cap 09/04/19 Nicotine [Nicoderm Cq] 21 mg TRANSDERM. DAILY patch 09/04/19 proMETHazine tablet [Phenergan tablet] 25 mg PO 4X/DAY PRN PRN #30 tab 09/04/19 Amox/Clavulanate Tablet [Augmentin Tablet] 875 mg PO BID #30 tab 10/08/19 Glucagon 1 mg IM .X1 PRN syringe 10/08/19 Insulin Lispro [Humalog KwikPen] See Protocol SUBCUT ACHS insuln.pen 10/08/19 Oxycodone HCl/Acetaminophen [Percocet 5/325] 1 tab PO .QDAILY PRN PRN 7 Days #7 tab 10/08/19 Pantoprazole Sodium [Protonix] 20 mg PO DAILY tab 10/08/19 traZODone [Desyrel] 50 mg PO QHS tab 10/08/19 The following prescriptions were given: Amox/Clavulanate Tablet [Augmentin Tablet] 875 mg PO BID #30 tab Prescription Printed Oxycodone HCl/Acetaminophen [Percocet 5/325] 1 tab PO .QDAILY PRN PRN 7 Days #7 tab PRN Reason: Pain Score 4-5/10 Prescription Printed Primary Care Physician: Aj Staley MD [Primary Care Provider] - Test Results: Test results from this visit will be discussed in further detail at your follow- up appointment, if applicable. Please Follow Up With: Phoenix Boswell MD When: Tuesday10/10/19. call [phone] for appt. Please Follow Up With: [facility] When: today 10/08/19 at 1230pm. To see Psychiatrist as well. Please Follow Up With: [facility] - for temporary housing. When: today 10/08/19. Will help coordinate going to [facility] Proposed Discharge Date: 10/08/19
[2019-10-08] MEDS: glipiZIDE 10 MG Tablet 15 MG PO (08:33)
[2019-10-08] MEDS: metFORMIN HCl 1,000 MG Tablet 1000 MG PO (08:34)
--- NOTE | 2019-10-08 08:36 | PCM.DC.SUM ---
Discharge Date and Diagnosis Date of Admission: 10/03/19 Date of Discharge: 10/08/19 - Primary Discharge Diagnosis Right axillary hidradenitis wound infection. Compromised skin graft right axilla. Hidradenitis. Manic episode in a bipolar patient. Atelectasis. - Secondary Discharge Diagnosis Hypertension JOAN (generalized anxiety disorder) Borderline personality disorder Branchial cleft sinus Diabetes mellitus type 2, uncontrolled Chronic neck pain Bilateral carpal tunnel syndrome Morbid obesity Osteoarthritis Chronic back pain Diabetic leg ulcer Smoker Hospital Course and Treatment Imaging Results: Diagnostic Data Chest X-Ray 10/05/19 16:25 IMPRESSION: Bibasilar atelectasis. No consolidation. 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 Date Notified:: 10/04/19 Time notified:: 14:28 Hospitalist Group - Dr. Osuna. Operations: None Procedures: EGD, PICC line placement - midline. Summary of Care Provided: After surgery on 09/03/19, the patient developed some skin graft compromise. Wound culture from 09/17/19 showed Staphylococcus aureus, Enterococcus faecalis, and Prevotella corporis. Perioperatively she had been on Doxycycline. Silver dressing changes were started. On 09/20/19 she developed psych issues with suicidal ideation and was sent to a Psych facility in [place]. When the cultures became available, the Psych facility was notified about them and the antibiotics should be changed to Augmentin. After discharge from the Psych facility, she was seen at the [facility] on 09/24/19. She stated she was placed on Keflex. So the antibiotics were changed to Zyvox and Flagyl. Since that Wound Center visit, she did not go home. She wandered around [place] for a couple of days. She did not take her Psych meds. She called the office and stated her dressing hadn't been changed since the Wound Center and came to the office for a dressing change. While in the office, her behavior was erratic. She had some paranoid thoughts, was hearing voices and was acting very manic. Clinically it was clear that she had not taken any of her Psych meds for a couple of days. She stated her meds were at home and that she wasn't allowed to get them. Also in the office, her BP was elevated with a diastolic of over 100. Her right axillary wound looked worse than her Wound Center visit a few days prior. And being on the streets for a couple of days, her status of her diabetes was in question. It was recommended to the patient to be admitted to the hospital for IV antibiotics and more aggressive wound care. Also a Hospitalist consult will be obtained to help with stabilizing her medical condition. Will have outreach and education social worker assist in her living situation as well. She stabilized from her bipolar manic episode with medication and sleep. IV antibiotics were started (Vancomycin and Flagyl) for the right axillary wound culture that showed Staphylococcus aureus, Enterococcus faecalis, and Prevotella corporis. A current wound culture was also done which showed Enterococcus faecalis, Gram positive harika, and Coag negative Staph. On the third hospital day, her IV antibiotics were stopped as the wound was improving and she was started on Augmentin. Continue Silver dressing changes to the right axilla. Encourage range of motion exercises to minimize stiffness. HgbA1c was 7.4. For her manic episode, she had been roaming the streets the last few days and didn't take her meds. With continuation of her meds, her symptoms are resolving. With resolution of her symptoms, she will not heed another Psych inpatient visit. At discharge, will need to decide a place for her to go. She states she does not want to live with her mother. She had seen [facility] a few days ago and can followup with them at discharge as well. An appointment has been set up at [facility] on Tuesday. She states she has a [facility] appointment on Tuesday. She has a Wound Center appointment on Tuesday. After discharge she will call her Psychiatrist for an appointment to re-evaluate her meds for any changes. She states she sees him every 6 months. As far as living situation goes, her mother stated she will pick her up at discharge. She will then go [facility] for temporary housing. This will be coordinated as well with [facility]. [facility] does intake on Tuesday through Tuesday. CXR on 10/06/19 showed atelectasis. She is using the incentive spirometry and is getting Albuterol treatments. Discussed with her the importance of taking deep breaths. Will repeat the CXR as an outpatient to make sure it continues to resolve. Also during her hospitalization, a urine drug screen was done which was positive for Benzodiazepines and Cannabinoids. Encouraged patient to stop smoking as it may have deleterious effects on wound healing. So she was discharged on Tuesday09/07/19. Wrote scripts for Augmentin and for Percocet for pain (7 tabs). Her mother will pick her up. Patient states she will not stay with her mother at this time. She has an appointment in my office on Tuesday10/10/19 for a Silver dressing change. She has an appointment with the [facility] at 1230pm. She will also see the Psychiatrist as well. She will also stop off at [facility] to help coordinate temporary housing at the [facility]. Subjective: Postop #35 Patient is resting comfortably. - Physical Exam Vitals/I&O's: Vital Signs Temp Pulse Resp BP Pulse Ox 98.6 F 89 16 121/75 H 96 10/08/19 08:21 10/08/19 08:21 10/08/19 08:24 10/08/19 08:21 10/08/19 08:21 Oxygen Delivery Method Room Air Weight: 223 lb 1.584 oz Body Mass Index (BMI) 37.1 Finger Stick Blood Glucose 219 Intake and Output for Last 24 Hours 10/06/19 10/07/19 10/08/19 23:59 23:59 23:59 Intake Total 3443 / 3893 2600 / 3326 1000 / 1000 Output Total 2300 / 2300 0 / 0 Balance 1143 / 1593 2600 / 3326 1000 / 1000 General: Alert, Oriented x3 HEENT: PERRLA, EOMI Oral: Moist Mucosa Neck: Supple Abdomen: Soft, Non-Distended Skin: Ulcer/ Wound - right axillary wound is stable. Good granulation tissue seen. Good range of motion right shoulder. Neurological: Cranial nerves II-XII grossly intact Psych/Mental Status: Normal Affect, Appropriate Microbiology Past 72 Hours 10/03/19 14:18 Wound - Axillary Gram Stain - Final 10/03/19 14:18 Wound - Axillary Wound Culture - Final Enterococcus faecalis Gram positive harika Coag Negative Staph Laboratory Results 10/07/19 11:52: POC Glucose 168 H 10/07/19 17:07: POC Glucose 140 H 10/07/19 21:27: POC Glucose 240 H 10/08/19 05:59: POC Glucose 164 H Current Medications Albuterol Sulfate (Ventolin Aerosols) 2.5 mg INHALATION Q4H PRN PRN PRN Reason: Wheezing Last Admin: 10/06/19 19:45 Dose: 2.5 mg Documented by: Amoxicillin/Clavulanate Potassium (Augmentin Tablet) 875 mg PO BID [facility] Last Admin: 10/07/19 21:09 Dose: 875 mg Documented by: Atorvastatin Calcium (Lipitor) 20 mg PO QHS [facility] Last Admin: 10/07/19 21:11 Dose: 20 mg Documented by: Buspirone HCl (Buspar) 20 mg PO TID [facility] Last Admin: 10/08/19 05:50 Dose: 20 mg Documented by: Clonidine (Catapres) 0.1 mg PO DAILY PRN PRN PRN Reason: ANXIETY Dextrose (D50w Syringe) 0 gm IV X1 PRN; Protocol PRN Reason: Hypoglycemia Diazepam (Valium) 5 mg PO TID PRN PRN PRN Reason: SPASMS Last Admin: 10/07/19 20:57 Dose: 5 mg Documented by: Docusate Sodium (Colace) 100 mg PO BID [facility] Last Admin: 10/07/19 21:21 Dose: Not Given Documented by: Duloxetine HCl (Cymbalta) 120 mg PO DAILY [facility] Last Admin: 10/07/19 09:39 Dose: 120 mg Documented by: Gabapentin (Neurontin) 300 mg PO 4X/DAY [facility] Last Admin: 10/07/19 21:13 Dose: 300 mg Documented by: Glipizide (Glucotrol) 15 mg PO DAILY@0730 [facility] Last Admin: 10/07/19 07:36 Dose: 15 mg Documented by: Glucagon () 1 mg IM .X1 PRN PRN Reason: Hypoglycemia Hydroxyzine Pamoate (Vistaril Pamoate Capsule) 100 mg PO TID [facility] Last Admin: 10/08/19 05:50 Dose: 100 mg Documented by: Lactated Ringer's () 1,000 mls @ 60 mls/hr IV .[id number] [facility] Last Admin: 10/08/19 05:47 Dose: 60 mls/hr Documented by: Insulin Glargine (Lantus (Bk)) 10 units SC QHS [facility] Last Admin: 10/07/19 21:29 Dose: 10 u Documented by: Insulin Human Lispro (Humalog Kwikpen ([facility])) 0 unit SC ACHS [facility]; Protocol Last Admin: 10/08/19 06:37 Dose: 1 u Documented by: Verona Walk Carbonate (Verona Walk Carbonate) 300 mg PO TID [facility] Last Admin: 10/08/19 05:50 Dose: 300 mg Documented by: Lubiprostone (Amitiza) 24 mcg PO BID [facility] Last Admin: 10/07/19 21:08 Dose: 24 mcg Documented by: Meloxicam (Mobic) 7.5 mg PO DAILY [facility] Last Admin: 10/07/19 09:39 Dose: 7.5 mg Documented by: Metformin HCl (Glucophage) 1,000 mg PO BIDCM [facility] Last Admin: 10/07/19 17:11 Dose: 1,000 mg Documented by: Nicotine (Nicoderm Cq ([facility])) 21 mg TRANSDERM. DAILY [facility] Last Admin: 10/07/19 09:39 Dose: 21 mg Documented by: Nutritional Formula (Kofi - [place] Flavor) 1 packet PO BIDCM [facility] Last Admin: 10/07/19 17:11 Dose: 1 packet Documented by: Olanzapine (Zyprexa) 20 mg PO QHS [facility] Last Admin: 10/07/19 21:18 Dose: 20 mg Documented by: Ondansetron HCl (Zofran) 4 mg IV Q6H PRN PRN PRN Reason: NAUSEA Last Admin: 10/06/19 11:48 Dose: 4 mg Documented by: Oxycodone HCl (Oxyir) 5 mg PO Q6H PRN PRN PRN Reason: Pain Score 6-10/10 Pantoprazole Sodium (Protonix) 20 mg PO DAILY [facility] Last Admin: 10/07/19 09:37 Dose: 20 mg Documented by: Promethazine HCl (Phenergan Tablet) 25 mg PO 4X/DAY PRN PRN PRN Reason: NAUSEA/VOMITING Sodium Chloride () 10 - 40 ml IV UD PRN PRN Reason: SALINE FLUSH Last Admin: 10/05/19 17:32 Dose: 20 ml Documented by: Spironolactone (Aldactone) 100 mg PO DAILY [facility] Last Admin: 10/07/19 09:40 Dose: 100 mg Documented by: Tizanidine HCl (Zanaflex) 4 mg PO 4X/DAY [facility] Last Admin: 10/07/19 21:16 Dose: 4 mg Documented by: Trazodone HCl (Desyrel) 50 mg PO QHS [facility] Last Admin: 10/07/19 21:13 Dose: 50 mg Documented by: Zolpidem Tartrate (Ambien (Generic)) 5 mg PO QHS PRN PRN PRN Reason: SLEEP Last Admin: 10/08/19 00:00 Dose: 5 mg Documented by: Discharge Diet: Carb Control Diet, - - encourage nutritional supplementation with protein to help the healing process. Discharge Activity: May Shower - on the days the silver dressing is changed. May shower in (days): 2 - may shower on the days the Silver dressing is changed. May resume sexual activity in: No Restrictions Weight Bearing Status: Weight bearing as tolerated Keep extremity elevated above heart level: Right Arm Call your doctor if your incision/area has: Continuous Slow Oozing, Sudden Increased Bleeding, Increased Pain/ Swelling, Increased Redness, Foul Smelling Discharge, Swelling at the incision site Call your doctor if you observe: Fever of 101 or Higher, Coldness, Increased Pain, Shortness of breath, Chest pain, Calf discomfort, Uncontrolled pain Suture Line Care: - - silver dressing changes three times per week. Change Dressing in (Days):: 2 - silver dressng changes three times per week. Cleanse incision/area with: Soap & Water - may cleanse the wound with soap and water on the days the dressing is changed., - - patient may shower on the days the silver dressing is changed. Home Medications: Medications to take at Discharge Clonidine HCl [Catapres] 0.1 mg PO DAILY PRN PRN 01/18/14 Duloxetine Hcl [Cymbalta] 120 mg PO DAILY 01/18/14 Tizanidine HCl [Zanaflex] 4 mg PO 4X/DAY 01/18/14 glipiZIDE [Glucotrol] 15 mg PO DAILY@0730 01/18/14 metFORMIN HCl [Glucophage] 1,000 mg PO BIDCM 02/28/14 Meloxicam [Mobic] 7.5 mg PO DAILY 01/14/16 Spironolactone [Aldactone] 100 mg PO DAILY 01/14/16 Verona Walk Carbonate [Verona Walk Carbonate ER] 300 mg PO TID 05/10/16 gabapentin 300 mg capsule 300 mg PO 4X/DAY cap 12/01/17 Lubiprostone [Amitiza] 24 mcg PO BID 01/16/18 Omeprazole [Prilosec] 20 mg PO DAILY 01/16/18 insulin aspart U-100 100 unit/mL subcutaneous solution See Protocol SC TIDCM ml 02/14/18 Atorvastatin Calcium 20 mg PO QHS 06/21/18 Albuterol Sulfate [Ventolin Hfa] 1 - 2 inhaler INHALATION 4X/DAY PRN PRN 06/30/18 Buspirone HCl 20 mg PO TID 06/30/18 olanzapine 15 mg tablet 20 mg PO QHS 03/28/19 Insulin Glargine [Lantus SoloStar Pen] 10 units SUBCUT QHS 07/13/19 hydroxyzine pamoate 100 mg capsule 100 mg PO TID 08/27/19 Albuterol Aerosols [Ventolin Aerosols] 2.5 mg INHALATION Q4H PRN PRN vial.neb. 09/04/19 Docusate Sodium [Colace] 100 mg PO BID #60 cap 09/04/19 Nicotine [Nicoderm Cq] 21 mg TRANSDERM. DAILY patch 09/04/19 proMETHazine tablet [Phenergan tablet] 25 mg PO 4X/DAY PRN PRN #30 tab 09/04/19 Amox/Clavulanate Tablet [Augmentin Tablet] 875 mg PO BID #30 tab 10/08/19 Glucagon 1 mg IM .X1 PRN syringe 10/08/19 Insulin Lispro [Humalog KwikPen] See Protocol SUBCUT ACHS insuln.pen 10/08/19 Oxycodone HCl/Acetaminophen [Percocet 5/325] 1 tab PO .QDAILY PRN PRN 7 Days #7 tab 10/08/19 Pantoprazole Sodium [Protonix] 20 mg PO DAILY tab 10/08/19 traZODone [Desyrel] 50 mg PO QHS tab 10/08/19 Following Prescrptions Were Given to Patient: Amox/Clavulanate Tablet [Augmentin Tablet] 875 mg PO BID #30 tab Prescription Printed Oxycodone HCl/Acetaminophen [Percocet 5/325] 1 tab PO .QDAILY PRN PRN 7 Days #7 tab PRN Reason: Pain Score 4-5/10 Prescription Printed Primary Care Physician: Aj Staley MD [Primary Care Provider] - Please Follow Up With: Phoenix Boswell MD When: Tuesday10/10/19. call [phone] for appt. Please Follow Up With: [facility] When: today 10/08/19 at 1230pm. To see Psychiatrist as well. Please Follow Up With: [facility] - for temporary housing. When: today 10/08/19. Will help coordinate [facility] Disposition: Her mother will pick her up and will make arrangements with [facility] through [facility]. Minutes spent on discharge:: 35 Patient Condition:: Stable Medical Necessity - Tobacco Use Smoking Status: Current every day smoker Tobacco Use: Cigarettes Meaningful Use Info Meaningful Use Diagnoses (Choose all that apply): None applicable
[2019-10-08] MEDS: oxyCODONE 5 MG Tablet PO (08:38)
[2019-10-08 09:57] VITALS: O2SAT 95
--- NOTE | 2019-10-08 10:21 | NURSING ---
In to change patient's dressing to the right axilla. Pt does not want this nurse to change the dressing. states her mom will change the dressing after she takes a shower. Pt states that has an appt to get to and does not want the dressing to be changed at this time. Dr Boswell had stated that patient will see him in the office on 10/09/19.
--- NOTE | 2019-10-08 18:40 | PCM.PN.HOSP ---
Subjective: Reason for follow-up: Medical consult. Patient has multiple comorbidities. Bipolar disorder diabetes mellitus type 2 and hypertension. Ready for discharge. Vitals/I&O's: Vital Signs Temp Pulse Resp BP Pulse Ox 98.6 F 89 16 121/75 H 95 10/08/19 08:21 10/08/19 08:21 10/08/19 08:24 10/08/19 08:21 10/08/19 09:57 Oxygen Delivery Method Room Air Weight: 223 lb 1.584 oz Body Mass Index (BMI) 37.1 Finger Stick Blood Glucose 219 Intake and Output for Last 24 Hours 10/06/19 10/07/19 10/08/19 23:59 23:59 23:59 Intake Total 3443 / 3893 2600 / 3326 1263 / 1263 Output Total 2300 / 2300 0 / 0 Balance 1143 / 1593 2600 / 3326 1263 / 1263 General: Alert, Oriented x3, Cooperative HEENT: Atraumatic, PERRLA, EOMI, Normocephalic Neck: Supple, No JVD, Negative Carotid Bruits Lungs: Clear to auscultation, Normal air movement, No rhonchi, No wheeze, No rales Cardiovascular: Regular rate, Regular Rhythm, Normal S1, Normal S2, No murmurs Abdomen: Bowel Sounds Present, Soft, Non Tender Extremities: No edema, Capillary Refill Less than 3 Seconds Skin: Ulcer/ Wound - Bilateral axillary dressing dry. Musculoskeletal: No Tenderness to Palpation of Joints or Extremities Neurological: Cranial nerves II-XII grossly intact Psych/Mental Status: Normal Affect, Appropriate Microbiology Past 72 Hours 10/03/19 14:18 Wound - Axillary Gram Stain - Final 10/03/19 14:18 Wound - Axillary Wound Culture - Final Enterococcus faecalis Gram positive harika Coag Negative Staph Laboratory Results 10/07/19 21:27: POC Glucose 240 H 10/08/19 05:59: POC Glucose 164 H Medical Necessity - Tobacco Use Smoking Status: Current every day smoker Tobacco Use: Cigarettes Assessment/Plan All Active Problems (Last Updated 10/05/19 @ 15:32 by Sonali Castrejon [employer]) Other complications of skin graft (allograft) (autograft) (Acute) Abnormal uterine bleeding (Acute) Abscess of neck (Acute) Open wound involving head with neck, complicated (Acute) Unspecified open wound of unspecified part of head, subsequent encounter (Acute) Unspecified open wound of unspecified part of neck, subsequent encounter (Acute) Folliculitis (Acute) Abscess, scalp (Acute) Muscle spasms of neck (Acute) Cellulitis of right hand (Acute) Cat bite (Acute) Cat bite of right hand with infection (Acute) Abscess of dorsum of right hand (Acute) Necrotizing soft tissue infection (Acute) History of section (Acute) History of tonsillectomy (Acute) Cat scratch of left hand with infection (Acute) Cat scratch of right hand with infection (Acute) Cat scratch (Acute) Open wound of left axillary region (Acute) Abscess of sternal region (Acute) Open wound of chest wall, complicated (Acute) Abscess of breast (Acute) This is a 34-year-old female was seen for medical comanagement for right axillary lymphadenitis ulcer. Multiple comorbidities. 1. Hidradenitis of the right axilla, with compromised skin graft right axilla with history of infection of staph aureus, Enterococcus faecalis and Prevotella. Current wound culture showed Enterococcus faecalis and Augmentin. on Augmentin, Flagyl, spironolactone per primary service 2. Bipolar disorder with rocio History of intermittent auditory and visual hallucination. Currently stable. Patient has outpatient appointment planned with psychiatry for Tuesday. 3. Type II DM, continue on home glipizide, metformin, Lantus, insulin sliding scale. Glucose are fairly controlled. 4. Nicotine dependence, on nicotine patch 5. Hyperlipidemia, on statin 6. Obesity, BMI 37.1, diet and exercises recommended 7. GERD on PPI 8. DVT Prophylaxis with early ambulation Patient is being discharged by surgical attending. Follow with PCP. Follow-up with psychiatrist today. Code Visit Inpatient E&M: 81229 Subs Hosp L2
--- NOTE | 2019-10-09 11:46 | CASEMGMT ---
DOMINICK CM Discharge Follow-up Phone Call: ADRY: [place]: 3 Call Date: 10/09/19 Discharge Date: 10/08/19 Time of Call: 1145 ? Admitting Diagnosis: Rt axilla hidradenitis. Discharge follow-up call placed to patient. Pt states she has been doing well since discharge. States she attended her counseling center appointment yesterday but housing [facility] is still in the works. Pt states she found a place to stay last evening but did not elaborate as to where this was. During the call pt asked her mom for a pen. Reviewed follow-up appointment with Dr. Boswell for 0900 tomorrow. Pt asked about [facility] transportation for this appointment. Phone number given to pt and she wrote this number down for her to contact and arrange. Pt states she obtained her antibiotic and denied any further questions regarding her discharge instructions. Neftali Peralta RN
== END 2019-10-08 10:10 | disposition home or self-care (01) | DRG 607 ==
PROVIDERS: Internal Medicine; Admitting Provider Surgery; Family Provider Family Medicine; PCP Family Medicine; Referring Provider Surgery; Visit Provider Internal Medicine
DX: L73.2 Hidradenitis suppurativa (principal); T33.522A Superficial frostbite of left hand, initial encounter; T33.521A Superficial frostbite of right hand, initial encounter; T86.821 Skin graft (allograft) (autograft) failure; F17.210 Nicotine dependence, cigarettes, uncomplicated; E78.5 Hyperlipidemia, unspecified; F31.9 Bipolar disorder, unspecified; B95.2 Enterococcus as the cause of diseases classified elsewhere; E66.9 Obesity, unspecified; I10 Essential (primary) hypertension; E11.65 Type 2 diabetes mellitus with hyperglycemia; Z68.37 Body mass index [BMI] 37.0-37.9, adult; Z79.4 Long term (current) use of insulin; X31.XXXA Exposure to excessive natural cold, initial encounter; Y93.9 Activity, unspecified; Y92.9 Unspecified place or not applicable; Z79.899 Other long term (current) drug therapy; E11.622 Type 2 diabetes mellitus with other skin ulcer; L98.492 Non-pressure chronic ulcer of skin of other sites with fat layer exposed
CPT/HCPCS: 11042; 36415; 71046; 80048; 80053; 80307; 82962; 83036; 83735; 84134; 85025; 85027; 85652; 86140; 87070; 87077; 87186; 87205; 87640; 93005; 94640; 97802; 99251; 99282; 99283; 99406; J7040; J7120; A4216; G0463; J2405

== ENCOUNTER 2019-10-11 09:40 | Emergency (ER) | payer MEDICARE, SELFPAY ==
[2019-10-10 15:00] VITALS: BMI 37.1
[2019-10-11 09:42] VITALS: BP 132/84; PULSE 106; RESP 16; TEMP 36.7; O2SAT 98; BMI 38.9
--- NOTE | 2019-10-11 10:05 | ED.VISSUMM ---
- ER Visit Summary Date of Service: 10/11/19 Chief Complaint: Left upper arm bruising History of Present Illness: The patient is a 34 F of insulin-dependent diabetes, bipolar disorder and gyriform suppurativa. Patient was recently hospitalized a week ago for IV antibiotics. She is a difficult peripheral IV stick so they placed a midline catheter in her left upper extremity. That was removed on Tuesday. After that she noticed some mild fullness and bruising and want to make sure the area was not infected. She is still currently on oral antibiotics at home. Physical Examination: Young female no acute distress vital signs are stable afebrile. HEENT exam unremarkable. Neck nontender no lymphadenopathy. Lungs clear to auscultation. Heart regular rhythm no murmur. Abdomen soft nontender. Patient is moving all 4 extremities and neurovascular intact. Her left medial bicep there is a area of bruising. This is not cellulitis. There is fullness of the skin consistent with a hematoma. It is not red. There is no lymphangitic streaking. If not significantly tender. There is no axillary lymphadenopathy. The left hand is neurovascular intact with normal radial pulse the left forearm is normal she is a large tattoo on the forearm skin. There is no edema. No signs of this being a upper extremity deep venous thrombosis. Neurologic exam normal. Test Results: None Emergency Department Course and Treatment: I explained the patient this was a hematoma and resolving bruising and not infection. She knows to follow-up if not improving or getting worse or she develops fever and redness. Treatment Plan: Compresses to the area. Motrin for pain. Follow-up if not improving or worse Disposition: Discharge Impression: Left upper extremity hematoma bruising status post midline catheter removed This note was generated with [employer] dictation software. It may contain incorrect words, spelling, and punctuation that were not noted in review of the chart prior to signing ED Disposition - Plan for ED Patient: Referrals: Aj Staley MD [Primary Care Provider] -
--- NOTE | 2019-10-11 10:08 | ED.DEP ---
ED Disposition - Plan for ED Patient: Disposition: Home or Assisted Living Instructions: Hematoma Referrals: Aj Staley MD [Primary Care Provider] -
--- NOTE | 2019-10-11 10:15 | ED.RN ---
Patient left without discharge instructions
== END 2019-10-11 10:32 | disposition home or self-care (01) ==
PROVIDERS: Emergency Provider Emergency Medicine; Family Provider Family Medicine; PCP Family Medicine
DX: S40.022A Contusion of left upper arm, initial encounter (principal); E11.9 Type 2 diabetes mellitus without complications; F31.9 Bipolar disorder, unspecified; L73.2 Hidradenitis suppurativa; Z79.4 Long term (current) use of insulin; Z79.84 Long term (current) use of oral hypoglycemic drugs; Z79.899 Other long term (current) drug therapy; Z72.0 Tobacco use
CPT/HCPCS: 99282

== ENCOUNTER 2019-10-16 11:33 | Observation (INO) | payer MEDICARE, SELFPAY ==
[2019-10-16] VITALS (11 sets, daily range): BP systolic 110–148; BP diastolic 78–87; PULSE 81–103; RESP 14–18; TEMP 36.4–36.6; O2SAT 96–99; BMI 38.9; BMI 40.4; BMI 37.4
--- NOTE | 2019-10-16 12:04 | ED.VIS.GEN ---
History of Present Illness Chief Complaint: Suicidal Informant: Patient Narrative: Patient presents via EMS, she was quite sad and depressed at her doctor's appointment, she took 5 days worth of her medications, she took at thousand milligrams of lithium, 200 mg of BuSpar, and 100 mg of Zyprexa. Up until today she had not been taking her bipolar medications. She tells me she is was up for the last 3 nights. She did intent to hurt her self Past Medical History - Allergies and Home Meds Allergies/Adverse Reactions: Allergies lamotrigine [From Lamictal] Allergy (Mild, Verified 10/16/19 10:06) Rash adhesive tape Allergy (Verified 10/16/19 10:06) Rash Primary Care Physician: Aj Staley MD [Primary Care Provider] - Past Medical History: - - Polar disorder, hidradenitis Surgical History: tonsillectomy, - - Excisional debridement hydradenitis right axilla Smoking Status: Current every day smoker - Family History Maternal Family History: Family History (Last Reviewed 10/16/19 @ 10:04 by Sandy Crowder) Grandmother Thyroid disorder Father Diabetes Heart disease Hypertension High cholesterol Mother Heart disease Hypertension High cholesterol Family History: Reports: Heart Disease, Hypertension Paternal Family History: Family History (Last Reviewed 10/16/19 @ 10:04 by Sandy Crowder) Grandmother Thyroid disorder Father Diabetes Heart disease Hypertension High cholesterol Mother Heart disease Hypertension High cholesterol Family History: Reports: Diabetes, Heart Disease, Hypertension Review of Systems General: Denies: Fever Eyes: Denies: Visual changes - bilaterally ENT: Denies: Sore throat Cardiovascular: Denies: Chest pain Respiratory: Denies: Dyspnea, Cough Gastrointestinal: Denies: Abdominal pain, Nausea Genitourinary: Denies: Dysuria Musculoskeletal: Denies: Myalgias, Arthralgias Skin: Reports: Wounds, - - Chronic right armpit wound, it was dressed at the doctor's office today Neurological: Denies: Headache, Weakness Psych: Reports: Depression, Anxiety, Suicidal ideations Endocrine: Denies: Polyuria Hematologic: Denies: Easy bleeding Allergy: Denies: Swelling of the mouth Physical Exam Vital Signs/Narrative: Vital Signs Temp Pulse Resp BP Pulse Ox 10/16/19 11:35 97.9 F 103 H 18 128/87 H 99 General: Well nourished, Well developed, - - She avoids eye contact does not appear toxic Eyes: Perrl, EOMI ENT: Moist mucous membranes Neck: Supple Cardiovascular: Regular rate, Regular rhythm Respiratory: No distress, CTA bilaterally Abdomen: Soft, Nontender Back: Nontender, Normal Inspection Extremities: Nontender, No edema Skin: Normal color, - - Chronic wounds, the right axilla was not undressed since it was just dressed by the plastic surgery clinic today Neurological: Alert, Normal Strength. Negative for: Weakness Psychological: - - Flat avoidant affect Diagnostic/Tx/Re-eval - Medical Decision Making Patient will be medically cleared. She took low enough doses of all the medications, I will call counseling center for transfer to psychiatric facility ED Disposition - Plan for ED Patient: Disposition: Acute Care Hospital - Other Diagnosis: Depression, Suicide gesture Referrals: Aj Staley MD [Primary Care Provider] -
[2019-10-16 12:48] LABS: Amphetamine Urine VISTA POSITIVE (<1000 ng/mL); Barbiturate Urine VISTA NEGATIVE (< 200 ng/mL); Benzodiazepine Urine VISTA POSITIVE (< 200 ng/mL); Cocaine Urine VISTA NEGATIVE (< 300 ng/mL); Ecstacy Urine VISTA NEGATIVE (< 500 ng/mL); Methadone Urine VISTA NEGATIVE (< 300 ng/mL); PCP Urine VISTA NEGATIVE (< 25 ng/mL); THC Urine VISTA POSITIVE (< 50 ng/mL); Vista UDS pH Range 6
[2019-10-16 13:07] LABS: Absolute Lymphocyte Count 3.91 X10^3/uL (0.83-4.51); Absolute Neutrophil Count 9.7 X10^3/uL (2.0-7.7); Basophil# 0.11 X10^3/uL; Basophil% 0.7 % (0-1); Eosinophil# 0.27 X10^3/uL; Eosinophils% 1.8 % (0-5); Hemoglobin 11.9 g/dL (12.0-15.0); Lymphocyte # 3.91 X10^3/ul (4.0); Lymphocyte % 25.9 % (19-41); Mean Corp Hgb Conc 32.2 g/dL (32-36); Mean Corpuscular Hgb 29.2 pg (27.0-32.0); Mean Corpuscular Volume 90.7 fL (81-99); Mean Platelet Vol. 8.7 fl (6.2-12.0); Monocyte# 1.01 X10^3/uL; Monocyte% 6.7 % (0-10); NRBC Flagged by Analyzer 0 % (0-5); Neutrophil # 9.69 X10^3/uL (2.7-7.7); Neutrophil % 64.4 % (47-70); Platelet Count 474 K/mm3 (150-450); RBC Distribution Width CV 14.4 % (11.6-14.6); RBC Distribution Width SD 47.8 fl (35.1-43.9); Red Blood Count 4.08 M/mm3 (4.2-5.4); White Blood Count 15.1 K/mm3 (4.4-11.0)
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
[2019-10-16 13:15] LABS: Internal QC Validated? YES +Cl - CLEAR BKGD; Pregnancy, Serum, hCG Quali. NEGATIVE Negative
[2019-10-16 13:19] LABS: Alcohol, Blood (Medical)-Serum < 3.0 mg/dL
[2019-10-16 13:22] LABS: Anion Gap 7 (5-15); BUN 10 mg/dL (7-18); BUN/Creat Ratio 12.6 RATIO (10-20); Calcium,Total 9.8 mg/dL (8.5-10.1); Chloride 108 mmol/L (98-107); Creatinine, Serum 0.79 mg/dL (0.55-1.02); EST Glomerular Filtration Rate 88 mL/min (>60); Est Glom Filt Rate - Afr Amer 106 mL/min (>60); Estimated Creatinine Clearance 82.22 ml/min; Glucose 118 mg/dL (74-106); Potassium 3.6 mmol/L (3.5-5.1); Sodium Level 139 mmol/L (136-145)
--- NOTE | 2019-10-16 14:09 | CM.ED ---
SOCIAL WORK REFERRAL CALLED AND FAXED TO ETHAN AT [facility]. ETHAN TO REVIEW REFERRAL AND GET BACK TO THIS WORKER. Estela GUERRA, STEEL TIER, PSYCHOLOGY LECTURER.
--- NOTE | 2019-10-16 14:50 | CM.ED ---
SOCIAL WORK RECEIVED CALL FROM ETHAN WITH [facility] REQUESTING LITHIUM LEVEL. UPDATED STAFF. Estela GUERRA, AIR TRAFFIC SUPERVISOR, AIRCRAFT PART ASSEMBLER.
--- NOTE | 2019-10-16 15:36 | CM.ED ---
SOCIAL WORK LITHIUM LEVEL FAXED TO [facility]. AWAITING ACCEPTANCE. Estela GUERRA, HOUSE PLAYER, DIRECTOR OF PURCHASING.
--- NOTE | 2019-10-16 16:16 | CM.ED ---
SOCIAL WORK MET WITH PATIENT IN ROOM. FAMILY MEMBER PRESENT. PATIENT GAVE PERMISSION FOR THIS WORKER TO UPDATE. UPDATED ON REFERRAL TO [facility] AND AWAITING ACCEPTANCE AT THIS TIME. Estela GUERRA, WAIST PRESSER, SPORTS LEADERSHIP INSTRUCTOR.
--- NOTE | 2019-10-16 16:54 | EKG12_ITS ---
Test Reason : MENTAL HEALTH Blood Pressure : / mmHG Vent. Rate : 095 BPM Atrial Rate : 095 BPM P-R Int : 144 ms QRS Dur : 084 ms QT Int : 388 ms P-R-T Axes : 054 047 053 degrees QTc Int : 487 ms Normal sinus rhythm Prolonged QT Abnormal ECG Confirmed by CHAIM HAIR ([id number]), newspaper editor managing FELISHA ARMSTRONG ([id number]) on 10/19/2019 11:26:30 AM Referred By: Phoenix Boswell Confirmed By:CHAIM HAIR
--- NOTE | 2019-10-16 16:56 | CM.ED ---
SOCIAL WORK RECEIVED CALL FROM ETHAN WITH [facility]. PER ETHAN, MEDICAL DOCTOR AT FACILITY REQUESTING EKG AND A RE-DRAW ON LITHIUM TO MAKE SURE IT IS TRENDING DOWN. DR. LOUIS AND NURSE UPDATED. WILL FAX RESULTS ONCE RECEIVED. Estela GUERRA, RISK CONTROL FIELD REPRESENTATIVE, PNEUMATIC TESTER MECHANIC.
--- NOTE | 2019-10-16 17:45 | CM.ED ---
SOCIAL WORK EKG FAXED TO [facility]. CALL TO [facility] TO UPDATE, SPOKE WITH MARGARITA. MARGARITA REQUESTING RESULTS OF LITHIUM INFORMED LAB REPORTED LITHIUM WILL NOT BE RE-DRAWN UNTIL MIDNIGHT TONIGHT. MARGARITA REQUESTING RESULTS BE FAXED TO . WILL UPDATE STAFF. Estela GUERRA, ART MUSEUM DOCENT, EVENT MARKETING ASSISTANT
[2019-10-16] MEDS: Acetaminophen 500 MG Tablet 1000 MG PO (19:16)
--- NOTE | 2019-10-16 19:30 | CM.ED ---
SOCIAL WORK RECEIVED CALL FROM MARGARITA WITH [facility]. PER MARGARITA, PHYSICIANS REQUESTING PATIENT BE OBSERVED OVERNIGHT D/T OVERDOSE WITH LITHIUM AND LEVEL AT 1.40. UPDATED REFERRAL TO BE FAXED TO [facility] IN THE MORNING. UPDATED STAFF AND DR. LOUIS. [facility] (P) (F) Estela GUERRA MSW, BARREL RIBS SOLDERER.
--- NOTE | 2019-10-16 19:51 | PCM.HP.STD ---
Problem List (1) [place] toxicity Status: Acute (2) Depression Status: Chronic (3) Suicide gesture Status: Acute (4) Hypertension Status: Chronic (5) Other complications of skin graft (allograft) (autograft) Status: Inactive (6) JOAN (generalized anxiety disorder) Status: Chronic (7) Borderline personality disorder Status: Chronic (8) Non-pressure chronic ulcer of skin of other sites with fat layer exposed Status: Chronic (9) Open wound of right axillary region with complication Status: Chronic (10) Branchial cleft sinus Status: Chronic (11) Diabetes mellitus type 2, uncontrolled Status: Chronic (12) Chronic neck pain Status: Chronic (13) Bilateral carpal tunnel syndrome Status: Chronic Comment: worse on left (14) Hidradenitis suppurativa Status: Chronic Comment: Painful recurrent right axillary hidradenitis 6 mm hidradenitis right posterior earlobe 4 cm recurrent hidradenitis posterior neck and occipital scalp (15) History of incision and drainage Status: Chronic Comment: Left side of neck 12/02/17, RIGHT BREAST ABSCESS 09/17/2014, LEFT BREAST ABSCESS 10/11/2014, INGUINAL HYDRADENITIS, AXILLARY HYDRADENITIS (16) History of section Status: Chronic (17) History of tonsillectomy Status: Chronic (18) Diabetes Status: Chronic Comment: type 2 Dx : 2012 Last exacerbation : DKA : never Hypoglycemic episode : never ER visit : 01/08 - 500+ (19) Hydradenitis Status: Chronic Comment: hidradenitis left axilla - L73.2 (20) Morbid obesity Status: Chronic (21) Bipolar affective Status: Chronic (22) Osteoarthritis Status: Chronic (23) Chronic back pain Status: Chronic (24) Smoker Status: Chronic Comment: F17.200 (25) Skin graft failure Status: Chronic Comment: compromised skin graft left axilla History of Present Illness Date of Admission: 10/16/19 Chief Complaint: suicidal attempt The patient is a 34 year old F with a significant history of major depressive disorder; bipolar disorder 1 disorder; anxiety disorder; morbid obesity; tobacco abuse; marijuana abuse; former alcoholic who presented to the emergency department with suicidal attempt. Reportedly Patient took 1000 mg of lithium; 200 mg of BuSpar; and 5 tablets of 20 mg of Zyprexa in attempt to kill herself. She denies any homicidal ideation. At the emergency department her lithium level was elevated at 1.4. The case was discussed with psychiatry facility, [facility], and patient got accepted. However patient can only be transferred to psychiatry unit after she has been observed for 24 hours or if her lithium level improves. Past Medical History Past Medical History (Chronic Problems): Chronic Problems (Last Reviewed 10/17/19 @ 04:24 by Bryan Desai MD) Depression (Chronic) Hypertension (Chronic) JOAN (generalized anxiety disorder) (Chronic) Borderline personality disorder (Chronic) Non-pressure chronic ulcer of skin of other sites with fat layer exposed (Chronic) Open wound of right axillary region with complication (Chronic) Branchial cleft sinus (Chronic) Diabetes mellitus type 2, uncontrolled (Chronic) Chronic neck pain (Chronic) Bilateral carpal tunnel syndrome (Chronic) worse on left Hidradenitis suppurativa (Chronic) Painful recurrent right axillary hidradenitis 6 mm hidradenitis right posterior earlobe 4 cm recurrent hidradenitis posterior neck and occipital scalp History of incision and drainage (Chronic) Left side of neck 12/02/17, RIGHT BREAST ABSCESS 09/17/2014, LEFT BREAST ABSCESS 10/11/2014, INGUINAL HYDRADENITIS, AXILLARY HYDRADENITIS History of section (Chronic) History of tonsillectomy (Chronic) Diabetes (Chronic) type 2 Dx : 2012 Last exacerbation : DKA : never Hypoglycemic episode : never ER visit : 01/08 - 500+ Hydradenitis (Chronic) hidradenitis left axilla - L73.2 Morbid obesity (Chronic) Bipolar affective (Chronic) Osteoarthritis (Chronic) Chronic back pain (Chronic) Smoker (Chronic) 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 Medical History: Medical History (Last Reviewed 10/17/19 @ 04:24 by Bryan Desai MD) Muscle spasms of neck (Inactive) M62.838 Cellulitis of right hand (Inactive) L03.113 Cat bite (Inactive) W55.01XA cat scratch bite abscess dorsum right hand by first web space Cat bite of right hand with infection (Inactive) S61.451A, L08.9, W55.01XA cat scratch bite abscess dorsum right hand by first web space Abscess of dorsum of right hand (Inactive) L02.511 cat scratch bite abscess dorsum right hand by first web space Cat scratch of left hand with infection (Inactive) S60.512A, L08.9, W55.03XA cat scratch infection dorsum left hand at proximal index finger Cat scratch of right hand with infection (Inactive) S60.511A, L08.9, W55.03XA cat scratch infection dorsum right hand with extension to long finger Cat scratch (Inactive) W55.03XA cat scratch infection dorsum right hand with extension to long finger cat scratch infection dorsum left hand at proximal index finger Diabetes (Chronic) E11.9 type 2 Dx : 2012 Last exacerbation : DKA : never Hypoglycemic episode : never ER visit : 01/08 - 500+ Morbid obesity (Chronic) E66.01 Bipolar affective (Chronic) F31.9 Osteoarthritis (Chronic) Chronic back pain (Chronic) M54.9, G89.29 Diabetic leg ulcer (Inactive) E11.622, L97.909 nonhealing diabetic ulcer right medial leg - E11.622 Non-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 fat layer exposed (Inactive) L97.912 diabetic ulcer right medial leg - L97.912 Open wound of left axillary region (Inactive) S41.102A open surgical hidradenitis wound left axilla - S41.102A 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 compromised skin graft left axilla Abscess of sternal region (Inactive) L02.213 L02.213 Sternal chest wall wound abscess Open wound of chest wall, complicated (Inactive) S21.109A S21.109D open chest wall sternal wound H/O hidradenitis suppurativa (Inactive) Z87.2 Z87.2 Abscess of breast (Inactive) N61.1 abscess right medial breast Alcohol abuse F10.10 Anxiety and depression F41.9, F32.9 Asthma J45.909 Drug abuse F19.10 GERD (gastroesophageal reflux disease) K21.9 Hidradenitis L73.2 LEFT INGUINAL, RIGHT AXILLARY, POSTERIOR NECK, Hyperlipidemia E78.5 Neuropathy G62.9 Non-healing surgical wound T81.89XA NON HEALING HIDRADENITIS WOUND POSTERIOR NECK. NON HEALING INFECTED HIDRADENITIS ULCER POSTERIOR NECK Osteoarthritis M19.90 [place] teeth removed K08.499 HTN (hypertension) I10 Allergies lamotrigine [From Lamictal] Allergy (Mild, Verified 10/16/19 10:06) Rash adhesive tape Allergy (Verified 10/16/19 10:06) Rash Home Medications: Ambulatory Orders Medication Instructions Recorded Clonidine HCl [Catapres] 0.1 mg PO DAILY PRN PRN 01/18/14 Duloxetine Hcl [Cymbalta] 90 mg PO DAILY 01/18/14 Tizanidine HCl [Zanaflex] 4 mg PO 4X/DAY 01/18/14 glipiZIDE [Glucotrol] 15 mg PO DAILY@0730 01/18/14 metFORMIN HCl [Glucophage] 1,000 mg PO BIDCM 01/18/14 Meloxicam [Mobic] 7.5 mg PO DAILY 01/14/16 Spironolactone [Aldactone] 100 mg PO DAILY 01/14/16 [place] Carbonate [[place] 300 mg PO TID 05/10/16 Carbonate ER] Lubiprostone [Amitiza] 24 mcg PO BID 01/16/18 Omeprazole [Prilosec] 20 mg PO DAILY 01/16/18 Atorvastatin Calcium 20 mg PO QHS 06/21/18 Albuterol Sulfate [Ventolin Hfa] 1 - 2 inhaler INHALATION 4X/DAY 06/30/18 PRN PRN Buspirone HCl 20 mg PO TID 06/30/18 Insulin Glargine [Lantus SoloStar 10 units SUBCUT QHS 07/13/19 Pen] hydroxyzine pamoate 100 mg capsule 100 mg PO TID 08/27/19 Albuterol Aerosols [Ventolin 2.5 mg INHALATION Q4H PRN PRN 09/04/19 Aerosols] vial.neb. Nicotine [Nicoderm Cq] 21 mg TRANSDERM. DAILY patch 09/04/19 Insulin Lispro [Humalog KwikPen] See Protocol SUBCUT ACHS 10/08/19 insuln.pen Oxycodone HCl/Acetaminophen 1 tab PO .QDAILY PRN PRN 7 Days #7 10/08/19 [Percocet 5/325] tab Pantoprazole Sodium [Protonix] 20 mg PO DAILY tab 10/08/19 Surgical History: Surgical History (Last Reviewed 10/16/19 @ 10:04 by Sandy Crowder) History of section (Chronic) Z98.891 History of tonsillectomy (Chronic) Z98.890, Z90.89 H/O neck surgery Z98.890 History of axillary surgery Z98.890 Surgical History: tonsillectomy, - - Excisional debridement hydradenitis right axilla Psychiatric History: Anxiety, Bipolar, Depression VIBRATING SCREEN OPERATOR History: No pertinent VIBRATING SCREEN OPERATOR history Smoking Status: Current every day smoker Tobacco Use: Cigarettes Drugs: Marijuana - *Family History Maternal Family History: Family History (Last Reviewed 10/16/19 @ 21:01 by Bryan Desai MD) Grandmother Thyroid disorder Father Diabetes Heart disease Hypertension High cholesterol Mother Heart disease Hypertension High cholesterol History Items: Heart Disease, Hypertension Paternal Family History: Family History (Last Reviewed 10/16/19 @ 21:01 by Bryan Desai MD) Grandmother Thyroid disorder Father Diabetes Heart disease Hypertension High cholesterol Mother Heart disease Hypertension High cholesterol History Items: Diabetes, Heart Disease, Hypertension Review of Systems Constitutional: Denies: Chills, Fever, Weight Change HEENT: Denies: Head Aches, Sinus Congestion, Sinus Drainage Cardiovascular: Denies: Chest Pain, Palpitations Respiratory: Denies: Cough, Shortness of breath at rest, Sputum production Gastrointestinal: Denies: Abdominal Pain, Nausea, Vomiting Genitourinary: Denies: Dysuria Musculoskeletal: Denies: Joint Pain, Joint Tenderness Skin: Denies: Rash, Wounds Neurological: Denies: Numbness, Tingling, Focal weakness Psychiatric: Reports: Anxiety, Depression, Suicidal Ideations. Denies: Homicidal Ideations Hematologic/ Lymphatic: Denies: Easy Bruising, Easy Bleeding VTE Information - Inpt Only VTE Present on Admission: No VTE Mechan Device Prophylaxis: None VTE Pharm Prophylaxis ordered?: No Reason prophylaxis not ordered:: Treatment Not Indicated - Low risk; encouraged to ambulate Patient Problems: Active and Suspected Problems (Last Reviewed 10/17/19 @ 04:24 by Bryan Desai MD) Suicide gesture (Acute) [place] toxicity (Acute) - Physical Exam Vitals/I&O's: Vital Signs Temp Pulse Resp BP Pulse Ox 97.9 F 98 18 110/80 98 10/16/19 11:35 10/16/19 19:08 10/16/19 19:08 10/16/19 19:08 10/16/19 19:08 Oxygen Delivery Method Room Air Weight: 103.6 kg Body Mass Index (BMI) 40.4 Finger Stick Blood Glucose 219 General: Alert, Oriented x3, Cooperative HEENT: Atraumatic, PERRLA, EOMI, Normocephalic Neck: Supple, No JVD, Negative Carotid Bruits Lungs: Clear to auscultation, Normal air movement Cardiovascular: Regular rate, Normal S1, Normal S2, No murmurs Abdomen: Bowel Sounds Present, Soft, Non Tender Extremities: No edema, Capillary Refill Less than 3 Seconds Skin: - - Echeverria pus in right axillary area. Musculoskeletal: No Tenderness to Palpation of Joints or Extremities Neurological: Cranial nerves II-XII grossly intact Psych/Mental Status: Normal Affect, Appropriate Laboratory Results 10/16/19 12:25: Urine Opiates Screen NEGATIVE, Urine Methadone Screen NEGATIVE, Ur Barbiturates Screen NEGATIVE, Ur Phencyclidine Scrn NEGATIVE, Ur Amphetamines Screen POSITIVE H, U Methamphetamin-MDMA NEGATIVE, U Benzodiazepines Scrn POSITIVE H, Urine Cocaine Screen NEGATIVE, U Cannabinoids Screen POSITIVE H, Ur Drug Screen Comment 10/16/19 12:55: WBC 15.1 H, RBC 4.08 L, Hgb 11.9 L, Hct 37.0, MCV 90.7, MCH 29.2, MCHC 32.2, RDW Std Deviation 47.8 H, RDW Coeff of Radha 14.4, Plt Count 474 H, MPV 8.7, Immature Gran % (Auto) 0.500, Neut % (Auto) 64.4, Lymph % (Auto) 25.9, [place] % (Auto) 6.7, Eos % (Auto) 1.8, Baso % (Auto) 0.7, Absolute Neuts (auto) 9.7 H, Absolute Lymphs (auto) 3.91, Nucleated RBC % 0 10/16/19 12:55: Sodium 139, Potassium 3.6, Chloride 108 H, Carbon Dioxide 24.0, Anion Gap 7, BUN 10, Creatinine 0.79, Estim Creat Clear Calc 82.22, Est GFR (MDRD) Af Amer 106, Est GFR (MDRD) Non-Af 88, BUN/Creatinine Ratio 12.6, Glucose 118 H, Calcium 9.8 10/16/19 12:55: Ethyl Alcohol < 3.0 10/16/19 12:55: Serum , Qual NEGATIVE 10/16/19 12:55: [place] 1.40 H* Assessment/Plan All Active Problems (Last Reviewed 10/17/19 @ 04:24 by Bryan Desai MD) Suicide gesture (Acute) [place] toxicity (Acute) The patient is a 34 year old F with a significant history of major depressive disorder; bipolar disorder 1 disorder; anxiety disorder; morbid obesity; tobacco abuse; marijuana abuse; former alcoholic who presented to the emergency department with 1000 mg of lithium; 200 mg of BuSpar and 5 tablets of 20 mg of Zyprexa in a suicidal attempt and found to have lithium toxicity. Suicidal attempt with lithium toxicity. We will hold other psychotropic medications at this time. Noted to have prolonged QTC interval of 487. Avoid QTC prolongation drugs. Repeat EKG in a.m.. Check lithium level in a.m. [place] level is more than [address] patient on telemetry monitoring at the progressive care unit. Trend CBC and BMP. Counselled Hypertension On presentation her blood pressure was not within goal Home Catapres continued. Hold Aldactone at this time. PRN labetalol ordered Chronic pain Percocet as needed continued Diabetes mellitus On presentation her blood glucose was within goal Metformin and glipizide continued Accu-Chek QA CHS. Hidradenitis with skin graft to right axillary area Per patient she uses silver Aquacel covered with dry dressing; continued Wound care consult. Asthma PRN albuterol continued Marijuana abuse Counseled Tobacco abuse Counseled .Nicotine patch continued. DVT prophylaxis Low risk Encouraged to ambulate Code Visit OBSV E&M: [id number] Initial observation care L3
[2019-10-16] MEDS: Atorvastatin Calcium 20 MG Tablet PO (23:02)
[2019-10-17 00:21] LABS: Bedside Glucose 175 mg/dL (70-110)
--- NOTE | 2019-10-17 00:25 | NURSING ---
IV start attempt x 2, unsuccessful, called nursing supervisor dyer to start.
[2019-10-17] MEDS: Lubiprostone 24 MCG Capsule PO ×2 (01:10→09:35)
[2019-10-17 03:00] VITALS: BP 119/70; PULSE 92; PULSE 93; RESP 16; TEMP 37.1; O2SAT 98
[2019-10-17 05:27] LABS: Absolute Lymphocyte Count 2.91 X10^3/uL (0.83-4.51); Absolute Neutrophil Count 6.2 X10^3/uL (2.0-7.7); Basophil# 0.11 X10^3/uL; Eosinophil# 0.47 X10^3/uL; Eosinophils% 4.5 % (0-5); Hematocrit 36.3 % (37-47); Hemoglobin 11.4 g/dL (12.0-15.0); Lymphocyte # 2.91 X10^3/ul (4.0); Lymphocyte % 27.6 % (19-41); Mean Corp Hgb Conc 31.4 g/dL (32-36); Mean Corpuscular Hgb 29.2 pg (27.0-32.0); Mean Corpuscular Volume 92.8 fL (81-99); Mean Platelet Vol. 8.9 fl (6.2-12.0); Monocyte# 0.76 X10^3/uL; Monocyte% 7.2 % (0-10); NRBC Flagged by Analyzer 0 % (0-5); Neutrophil # 6.23 X10^3/uL (2.7-7.7); Neutrophil % 58.9 % (47-70); Platelet Count 450 K/mm3 (150-450); RBC Distribution Width CV 14.5 % (11.6-14.6); RBC Distribution Width SD 49.2 fl (35.1-43.9); Red Blood Count 3.91 M/mm3 (4.2-5.4); White Blood Count 10.6 K/mm3 (4.4-11.0)
--- NOTE | 2019-10-17 05:55 | EKG12_ITS ---
Test Reason : AM EKG Blood Pressure : / mmHG Vent. Rate : 091 BPM Atrial Rate : 091 BPM P-R Int : 160 ms QRS Dur : 082 ms QT Int : 386 ms P-R-T Axes : 047 076 038 degrees QTc Int : 474 ms Normal sinus rhythm Possible Anterior infarct , age undetermined Abnormal ECG When compared with ECG of 16-OCT-2019 17:19, MANUAL COMPARISON REQUIRED, DATA IS UNCONFIRMED Confirmed by CHAIM HAIR ([id number]), copy editor FELISHA ARMSTRONG ([id number]) on 10/19/2019 11:59:42 AM Referred By: Phoenix Boswell Confirmed By:CHAIM HAIR
[2019-10-17] MEDS: glipiZIDE 5 MG Tablet 15 MG PO (06:34)
[2019-10-17 06:36] LABS: Anion Gap 6 (5-15); BUN 15 mg/dL (7-18); BUN/Creat Ratio 17.2 RATIO (10-20); Calcium,Total 9.6 mg/dL (8.5-10.1); Chloride 111 mmol/L (98-107); Creatinine, Serum 0.87 mg/dL (0.55-1.02); EST Glomerular Filtration Rate 79 mL/min (>60); Est Glom Filt Rate - Afr Amer 95 mL/min (>60); Estimated Creatinine Clearance 77.94 ml/min; Glucose 242 mg/dL (74-106); Potassium 4.2 mmol/L (3.5-5.1); Sodium Level 142 mmol/L (136-145)
[2019-10-17 06:41] LABS: Bedside Glucose 233 mg/dL (70-110)
[2019-10-17 07:28] VITALS: PULSE 103
[2019-10-17 07:40] VITALS: O2SAT 97
--- NOTE | 2019-10-17 08:54 | NURSING ---
wound photo: right axilla
[2019-10-17 09:31] VITALS: BP 116/70; PULSE 98; RESP 17; TEMP 36.8; O2SAT 99
[2019-10-17] MEDS: metFORMIN HCl 1,000 MG Tablet 1000 MG PO (09:35)
[2019-10-17] MEDS: Meloxicam 7.5 MG Tablet PO (09:35)
[2019-10-17] MEDS: Pantoprazole Sodium 20 MG Tablet PO (09:36)
[2019-10-17] MEDS: oxyCODONE 5 MG Tablet PO (09:38)
[2019-10-17] MEDS: cloNIDine HCl 0.1 MG Tablet PO (09:38)
[2019-10-17] MEDS: Acetaminophen 325 MG Tablet 650 MG PO (09:39)
[2019-10-17] MEDS: Ondansetron 8 MG Tablet PO (10:41)
[2019-10-17 11:20] VITALS: PULSE 92
[2019-10-17 11:26] LABS: Bedside Glucose 233 mg/dL (70-110)
--- NOTE | 2019-10-17 12:27 | CASEMGMT ---
Addendum entered by Iman Olivera 10/17/19 12:32: Updated [place] level faxed to [facility]. Iman EVERETT GUITAR REPAIRER Original Note: CJ called [facility] and let them know that a [place] level was drawn at 11a and we are waiting on the results. CJ told them SW will get them the results as soon as they are in the computer. Iman EVERETT GUITAR REPAIRER
--- NOTE | 2019-10-17 13:16 | CASEMGMT ---
CJ called [facility] and spoke with Sandee regarding the new [place] level. CJ also let her know CJ faxed the results. She said she will let Thelma know and have her call CJ. Iman BARRAGAN
--- NOTE | 2019-10-17 13:50 | CASEMGMT ---
Addendum entered by Iman Olivera 10/17/19 13:55: SW called [facility] and they will pick patient up in about 15 minutes. RN, secretary book keeper, and patient were notified. Iman BARRAGAN Original Note: Received call from Thelma at [facility]. Patient was accepted by Dr Fisher and she will be going to the 1600 unit. The phone number for nurse to nurse report is [phone]. SW gave this information to patient's RN. SW also let patient know. CJ asked if she would like SW to call anyone to let them know. She asked SW to call her Aunt Juanis. SW called her aunt, but she was not available so SW spoke with her . SW gave him the message and he will let Juanis know. SW spoke with patient letting her know that her aunt was not available, but her uncle was so SW let him know. SW then told patient this and she was fine with this information. Plan: [facility]. Iman BARRAGAN
[2019-10-17 14:00] VITALS: BP 125/73; PULSE 82; RESP 17; TEMP 36.8; O2SAT 97
--- NOTE | 2019-10-17 14:45 | DS.PCM_ITS ---
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 layer exposed (Chronic) Open wound of right axillary region with complication (Chronic) Branchial cleft sinus (Chronic) Diabetes mellitus type 2, uncontrolled (Chronic) Chronic neck pain (Chronic) Bilateral carpal tunnel syndrome (Chronic) worse on left Hidradenitis suppurativa (Chronic) Painful recurrent right axillary hidradenitis 6 mm hidradenitis right posterior earlobe 4 cm recurrent hidradenitis posterior neck and occipital scalp History of incision and drainage (Chronic) Left side of neck 12/02/17, RIGHT BREAST ABSCESS 09/17/2014, LEFT BREAST ABSCESS 10/11/2014, INGUINAL HYDRADENITIS, AXILLARY HYDRADENITIS History of section (Chronic) History of tonsillectomy (Chronic) Diabetes (Chronic) type 2 Dx : 2012 Last exacerbation : DKA : never Hypoglycemic episode : never ER visit : 01/08 - 500+ Hydradenitis (Chronic) hidradenitis left axilla - L73.2 Morbid obesity (Chronic) Bipolar affective (Chronic) Osteoarthritis (Chronic) Chronic back pain (Chronic) Smoker (Chronic) 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 She also took BuSpar and Zyprexa. She had not been taking her bipolar medications as prescribed. This was an intent to hurt her self. Patient's lab obtained in the emergency room showed an elevated lithium level, white blood cell count was elevated at 15.1, urine tox screen was positive for amphetamines, benzodia zepines, and cannabinoids. Patient's blood sugar was 118. Patient was admitted to PCU, repeat lithium levels were obtained until her lithium level was therapeutic on 10/17/2019. Patient was seen by crisis and arrangements were made for the patient to go to an inpatient psychiatric facility. On 10/17/2019, patient was seen and examined: On examination she appeared in good health and spirits. Vital signs as documented. Skin warm and dry and without overt rashes. Neck without JVD. Lungs clear. Heart exam notable for regular rhythm, normal sounds and absence of murmurs, rubs or gallops. Abdomen unremarkable and without evidence of organomegaly, masses, or abdominal aortic enlargement. Extremities nonedematous. Neuro: Cranial nerves II through XII are grossly intact, no focal motor deficits were noted, sensation to light touch and pinprick is intact. Psych: Patient is alert and oriented x3, she does not appear anxious or depressed On 10/17/2019, patient was seen and examined felt to be in stable condition for discharge to an inpatient psychiatric facility. - Physical Exam Vitals/I&O's: Vital Signs Temp Pulse Resp BP Pulse Ox 98.2 F 82 17 125/73 H 97 10/17/19 14:00 10/17/19 14:00 10/17/19 14:00 10/17/19 14:00 10/17/19 14:00 Oxygen Delivery Method Room Air Weight: 98.9 kg Body Mass Index (BMI) 37.4 Finger Stick Blood Glucose 219 Intake and Output for Last 24 Hours 10/15/19 10/16/19 10/17/19 23:59 23:59 23:59 Intake Total 1065 / 1065 Balance 1065 / 1065 Laboratory Results 10/16/19 12:55: [place] 1.40 H* 10/17/19 00:16: POC Glucose 175 H 10/17/19 05:10: [place] 1.40 H* 10/17/19 05:10: WBC 10.6, RBC 3.91 L, Hgb 11.4 L, Hct 36.3 L, MCV 92.8, MCH 29.2, MCHC 31.4 L, RDW Std Deviation 49.2 H, RDW Coeff of Radha 14.5, Plt Count 450, MPV 8.9, Immature Gran % (Auto) 0.800, Neut % (Auto) 58.9, Lymph % (Auto) 27.6, [place] % (Auto) 7.2, Eos % (Auto) 4.5, Baso % (Auto) 1.0, Absolute Neuts (auto) 6.2, Absolute Lymphs (auto) 2.91, Nucleated RBC % 0 10/17/19 05:10: Sodium 142, Potassium 4.2, Chloride 111 H, Carbon Dioxide 25.0, Anion Gap 6, BUN 15, Creatinine 0.87, Estim Creat Clear Calc 77.94, Est GFR (MDRD) Af Amer 95, Est GFR (MDRD) Non-Af 79, BUN/Creatinine Ratio 17.2, Glucose 242 H, Calcium 9.6 10/17/19 06:31: POC Glucose 233 H 10/17/19 11:16: POC Glucose 233 H 10/17/19 11:25: [place] 1.20 Home Medications: Medications to take at Discharge Clonidine HCl [Catapres] 0.1 mg PO DAILY PRN PRN 01/18/14 Duloxetine Hcl [Cymbalta] 90 mg PO DAILY 01/18/14 Tizanidine HCl [Zanaflex] 4 mg PO 4X/DAY 01/18/14 glipiZIDE [Glucotrol] 15 mg PO DAILY@0730 01/18/14 metFORMIN HCl [Glucophage] 1,000 mg PO BIDCM 01/18/14 Meloxicam [Mobic] 7.5 mg PO DAILY 01/14/16 Spironolactone [Aldactone] 100 mg PO DAILY 01/14/16 [place] Carbonate [[place] Carbonate ER] 300 mg PO TID 05/10/16 Lubiprostone [Amitiza] 24 mcg PO BID 01/16/18 Omeprazole [Prilosec] 20 mg PO DAILY 01/16/18 Atorvastatin Calcium 20 mg PO QHS 06/21/18 Albuterol Sulfate [Ventolin Hfa] 1 - 2 inhaler INHALATION 4X/DAY PRN PRN 0 06/30/18 Buspirone HCl 20 mg PO TID 06/30/18 Insulin Glargine [Lantus SoloStar Pen] 10 units SUBCUT QHS 07/13/19 hydroxyzine pamoate 100 mg capsule 100 mg PO TID 08/27/19 Albuterol Aerosols [Ventolin Aerosols] 2.5 mg INHALATION Q4H PRN PRN vial.neb. 09/04/19 Nicotine [Nicoderm Cq] 21 mg TRANSDERM. DAILY patch 09/04/19 Insulin Lispro [Humalog KwikPen] See Protocol SUBCUT ACHS insuln.pen 10/08/19 Oxycodone HCl/Acetaminophen [Percocet 5/325] 1 tab PO .QDAILY PRN PRN 7 Days #7 tab 10/08/19 Pantoprazole Sodium [Protonix] 20 mg PO DAILY tab 10/08/19 Primary Care Physician: Aj Staley MD [Primary Care Provider] - Disposition: Psych Hospital or Unit Patient Condition:: Stable Medical Necessity - Tobacco Use Smoking Status: Current every day smoker Tobacco Use: Cigarettes Meaningful Use Info Meaningful Use Diagnoses (Choose all that apply): None applicable Code Visit OBSV E&M: 56982 Observation care discharge
== END 2019-10-17 14:25 ==
LOC: ED 12:09 → PCU 19:58
PROVIDERS: Admitting Provider Hospitalist; Emergency Provider Emergency Medicine; Family Provider Family Medicine; PCP Family Medicine; Visit Provider Internal Medicine
DX: F32.9 Major depressive disorder, single episode, unspecified (principal); L73.2 Hidradenitis suppurativa; T56.892A Toxic effect of other metals, intentional self-harm, initial encounter; T43.592A Poisoning by other antipsychotics and neuroleptics, intentional self-harm, initial encounter; Y92.9 Unspecified place or not applicable; K21.9 Gastro-esophageal reflux disease without esophagitis; I10 Essential (primary) hypertension; F17.210 Nicotine dependence, cigarettes, uncomplicated; E11.65 Type 2 diabetes mellitus with hyperglycemia; F41.1 Generalized anxiety disorder; F60.3 Borderline personality disorder; M19.90 Unspecified osteoarthritis, unspecified site; E66.01 Morbid (severe) obesity due to excess calories; G89.29 Other chronic pain; Z71.3 Dietary counseling and surveillance; Z79.899 Other long term (current) drug therapy; Z79.4 Long term (current) use of insulin; Z68.41 Body mass index [BMI] 40.0-44.9, adult; R94.31 Abnormal electrocardiogram [ECG] [EKG]
CPT/HCPCS: 36415; 80048; 80178; 80307; 80320; 82962; 84703; 85025; 93005; 97802; 99218; 99285; 99406; A4216; G0378; G0480

== ENCOUNTER 2019-10-29 19:03 | Emergency (ER) | payer MEDICARE, SELFPAY ==
[2019-10-16 20:40] VITALS: BMI 37.4
[2019-10-29 19:05] VITALS: TEMP 36.6; BMI 26.8
[2019-10-29 20:08] VITALS: BP 158/94; PULSE 110; RESP 18; O2SAT 99
[2019-10-29 20:51] LABS: Amphetamine Urine VISTA POSITIVE (<1000 ng/mL); Barbiturate Urine VISTA NEGATIVE (< 200 ng/mL); Benzodiazepine Urine VISTA POSITIVE (< 200 ng/mL); Cocaine Urine VISTA NEGATIVE (< 300 ng/mL); Ecstacy Urine VISTA POSITIVE (< 500 ng/mL); Methadone Urine VISTA NEGATIVE (< 300 ng/mL); PCP Urine VISTA NEGATIVE (< 25 ng/mL); THC Urine VISTA POSITIVE (< 50 ng/mL); Vista UDS pH Range 6
[2019-10-29 21:00] VITALS: RESP 16
[2019-10-29 21:33] LABS: Absolute Lymphocyte Count 4.74 X10^3/uL (0.83-4.51); Absolute Neutrophil Count 14.2 X10^3/uL (2.0-7.7); Basophil% 0.5 % (0-1); Eosinophil# 0.17 X10^3/uL; Eosinophils% 0.8 % (0-5); Hematocrit 32.6 % (37-47); Hemoglobin 10.6 g/dL (12.0-15.0); Lymphocyte # 4.74 X10^3/ul (4.0); Lymphocyte % 23.2 % (19-41); Mean Corp Hgb Conc 32.5 g/dL (32-36); Mean Corpuscular Hgb 29.3 pg (27.0-32.0); Mean Corpuscular Volume 90.1 fL (81-99); Mean Platelet Vol. 9.1 fl (6.2-12.0); Monocyte# 1.09 X10^3/uL; Monocyte% 5.3 % (0-10); NRBC Flagged by Analyzer 0 % (0-5); Neutrophil # 14.22 X10^3/uL (2.7-7.7); Neutrophil % 69.6 % (47-70); POSITIVE MORPHOLOGY YES; Platelet Count 386 K/mm3 (150-450); RBC Distribution Width CV 14.4 % (11.6-14.6); RBC Distribution Width SD 47.3 fl (35.1-43.9); Red Blood Count 3.62 M/mm3 (4.2-5.4); White Blood Count 20.5 K/mm3 (4.4-11.0)
[2019-10-29 21:52] LABS: Internal QC Validated? YES +Cl - CLEAR BKGD; Pregnancy, Serum, hCG Quali. NEGATIVE Negative
[2019-10-29 21:52] LABS: Anion Gap 9 (5-15); BUN 15 mg/dL (7-18); Calcium,Total 9.3 mg/dL (8.5-10.1); Chloride 105 mmol/L (98-107); Creatinine, Serum 0.88 mg/dL (0.55-1.02); EST Glomerular Filtration Rate 78 mL/min (>60); Est Glom Filt Rate - Afr Amer 94 mL/min (>60); Estimated Creatinine Clearance 90.01 ml/min; Glucose 140 mg/dL (74-106); Potassium 3.5 mmol/L (3.5-5.1); Sodium Level 137 mmol/L (136-145)
[2019-10-29 22:00] VITALS: RESP 18
[2019-10-29 22:11] LABS: Differential Indicated SCAN CRITERIA MET
[2019-10-29 22:12] LABS: Platelet Estimate ADEQUATE (ADEQ)
[2019-10-29 22:13] LABS: Anisocytosis RARE; Hypochromasia RARE; Macrocytosis RARE; Red Cell Morphology N CHROM NORMAL (NORM C&C)
--- NOTE | 2019-10-29 22:22 | ED.RN ---
MALATHI WITH CRISIS I WILL GET A HOLD OF LUCAS FOR YOU
--- NOTE | 2019-10-29 22:24 | ED.DCSUM_ITS ---
- ER Visit Summary Date of Service: 10/29/19 Chief Complaint: [Confusion and abnormal behavior] History of Present Illness: The patient is a 34 F [the emergency department via police escort. Patient apparently was found wandering and with bizarre behavior. Apparently she did admit that she was having thoughts of wanting to harm herself. Patient tells me that she is been at her drug house for the last 3 days and she was discharged from a psychiatric facility that she was admitted to recently. Patient denies any recent overdoses. Patient admits to multiple drugs of abuse such as methamphetamines and heroin. Patient describes hallucinations. Patient tells me she does not currently take any medications. He denies recent illness.] Physical Examination: [HEENT-PERRLA, EOMI. Cranial nerves II through XII grossly intact. TMs clear. Mucous membranes moist. No adenopathy. Patient with flight of ideas. Does describe feeling depressed and suicidal. Cardiovascular-regular rate and rhythm without murmur or ectopy Lungs-clear to auscultation, chest wall stable without crepitus or subcu emphysema Abdomen-normoactive bowel sounds, soft, nontender, no rebound or rigidity, no peritoneal signs. Extremities-intact ?4, normal range of motion, normal pulses, atraumatic] Test Results: [CBC with differential was significant for an elevated white blood cell count of 20,000. Chemistries unremarkable. Toxicology screen was positive for amphetamines as well as MDMA, benzos, and marijuana. hCG was negative.] Emergency Department Course and Treatment: [She will be evaluated by counseling center. I am concerned the patient does not have a place to go is essentially homeless. I am concerned the patient is a threat to her self. Patient not taking her prescribed medications.] Treatment Plan: [Care of patient turned over to evening physician awaiting placement by crisis] Disposition: [Pending] Impression: [Suicidal ideation Illicit drug use Psychosis] This note was generated with [employer] dictation software. It may contain incorrect words, spelling, and punctuation that were not noted in review of the chart prior to signing ED Disposition - Plan for ED Patient: Referrals: Aj Staley MD [Primary Care Provider] -
[2019-10-29 22:35] LABS: Mucous, Urine 0 SEEN /hpf (<or=2+)
[2019-10-29 22:38] LABS: Color, Urine Yellow (Yellow); Glucose, Dipstick Normal (Normal); Leukocyte Esterase-Dipstick 25 /ul (Negative); Nitrite-Dipstick Negative (Negative); Occult Blood-Urine Negative /ul (Negative); Protein-Dipstick 15 mg/dl (Negative); Specific Gravity, Urine 1.015 (1.002-1.030); Urine Bilirubin Dipstick Negative (Negative); Urine Clarity Clear (Clear); Urine Urobilinogen Normal (Normal); Urine pH 6.5 (5.0 - 8.0)
[2019-10-29] MEDS: LORazepam 1 MG Tablet PO (22:44)
[2019-10-29 22:47] LABS: Ketone-Dipstick 150 mg/dl (Negative)
[2019-10-29 22:49] LABS: Bacteria 1+ /hpf (None Seen); Red Blood Cells-Urine 0-5 SEEN /hpf (0-5); Squamous Epithelial Cells - UA 5-10 SEEN /hpf (5-10); White Blood Cells 0-5 SEEN /hpf (0-5)
[2019-10-29 23:00] VITALS: RESP 16
[2019-10-30] VITALS (9 sets, daily range): BP systolic 108–129; BP diastolic 60–74; PULSE 62–107; RESP 14–18; TEMP 36.6; O2SAT 97–98
[2019-10-30] MEDS: LORazepam 1 MG Tablet PO ×2 (00:44→12:12)
--- NOTE | 2019-10-30 06:50 | ED.RN ---
TAYLOR ZAVALA WITH CRISIS PT HAS BEEN REFERRED TO [facility] AND [facility]
[2019-10-30] MEDS: DiphenhydrAMINE 25 MG Capsule 50 MG PO (09:12)
[2019-10-30 15:28] LABS: Pathologist Review Reviewed
== END 2019-10-30 12:53 ==
LOC: ED 20:04
PROVIDERS: Emergency Provider Emergency Medicine; Family Provider Family Medicine; PCP Family Medicine
DX: F29 Unspecified psychosis not due to a substance or known physiological condition (principal); R45.851 Suicidal ideations; Z59.0 Homelessness; D72.829 Elevated white blood cell count, unspecified; Z79.4 Long term (current) use of insulin; Z79.899 Other long term (current) drug therapy
CPT/HCPCS: 80048; 80178; 80307; 80320; 81001; 84703; 85025; 99285; G0480

== ENCOUNTER 2019-11-26 19:35 | Observation (INO) | payer MEDICARE, SELFPAY ==
[2019-11-26 19:36] VITALS: BP 136/91; PULSE 122; RESP 18; TEMP 37.1; O2SAT 96; BMI 29.9
[2019-11-26 21:01] VITALS: RESP 18
[2019-11-26 21:10] LABS: Absolute Lymphocyte Count 6.29 X10^3/uL (0.83-4.51); Absolute Neutrophil Count 10.3 X10^3/uL (2.0-7.7); Basophil# 0.15 X10^3/uL; Basophil% 0.8 % (0-1); Eosinophil# 0.15 X10^3/uL; Eosinophils% 0.8 % (0-5); Hematocrit 35.1 % (37-47); Hemoglobin 11.4 g/dL (12.0-15.0); Lymphocyte # 6.29 X10^3/ul (4.0); Lymphocyte % 34.9 % (19-41); Mean Corp Hgb Conc 32.5 g/dL (32-36); Mean Corpuscular Hgb 29.5 pg (27.0-32.0); Mean Corpuscular Volume 90.9 fL (81-99); Mean Platelet Vol. 8.8 fl (6.2-12.0); Monocyte# 1.06 X10^3/uL; Monocyte% 5.9 % (0-10); NRBC Flagged by Analyzer 0 % (0-5); Neutrophil # 10.27 X10^3/uL (2.7-7.7); POSITIVE DIFFERENTIAL YES; POSITIVE MORPHOLOGY YES; Platelet Count 458 K/mm3 (150-450); RBC Distribution Width CV 14.4 % (11.6-14.6); RBC Distribution Width SD 47.5 fl (35.1-43.9); Red Blood Count 3.86 M/mm3 (4.2-5.4)
--- NOTE | 2019-11-26 21:13 | ED.RN ---
assessment completed. pt says she is suicidal but not suicidal . When asked how so? she said i am suicidal because i feel like a failure, a disappointment, a bad mom and i dont want to kill myself because i want to get better and not being a druggy.
[2019-11-26 21:24] LABS: Anion Gap 9 (5-15); BUN 17 mg/dL (7-18); BUN/Creat Ratio 13.9 RATIO (10-20); Calcium,Total 10.1 mg/dL (8.5-10.1); Chloride 103 mmol/L (98-107); Creatinine, Serum 1.22 mg/dL (0.55-1.02); Differential Indicated SCAN CRITERIA MET; EST Glomerular Filtration Rate 53 mL/min (>60); Est Glom Filt Rate - Afr Amer 64 mL/min (>60); Estimated Creatinine Clearance 57.91 ml/min; Glucose 180 mg/dL (74-106); Potassium 3.5 mmol/L (3.5-5.1); Sodium Level 137 mmol/L (136-145)
[2019-11-26 21:39] LABS: Anisocytosis RARE; Macrocytosis RARE; Platelet Estimate SLT INC (ADEQ); Polychromasia RARE; Red Cell Morphology N CHROM NORMAL (NORM C&C)
--- NOTE | 2019-11-26 21:42 | ED.VISSUMM ---
- ER Visit Summary Date of Service: 11/26/19 Chief Complaint: Substance abuse History of Present Illness: The patient is a 34 F who presents with substance abuse that she wants help with tonight. Patient states she wants detox for her drug addiction. Patient states she uses everything. Patient states she is tired of living like this and wants help. Patient told nursing staff that she sometimes has suicidal ideations but does not want to act on them at this time. Patient did not tell me any suicidal ideation or plan. Patient also states she uses alcohol. Physical Examination: Vital signs are stable except for tachycardia of 122. Patient is afebrile. Patient is in no acute distress. Oral mucosa is pink and moist. Neck is supple. Trachea is midline. There is no JVD. Heart was regular and tachycardic. Lungs are clear and equal bilaterally. Abdomen is soft. Bowel sounds are normal. There is no tenderness. Cranial nerves II through XII are intact. There are no focal motor or sensory deficits noted. Test Results: CBC shows a mild leukocytosis of 18.0. Platelets were slightly elevated at 458. Creatinine was elevated at 1.22 which is elevated from previous results of 0.88. Urine tox screen was positive for amphetamines, methamphetamines, benzodiazepines, and cannabinoids. Serum alcohol level was normal. Emergency Department Course and Treatment: Patient was given a dose of Ativan here. She is feeling better. On reevaluation, patient denies any suicidal or homicidal ideations or plans. Case was discussed with the hospitalist. He will admit the patient for observation. Patient understood and was agreeable with the plan. All questions were answered. Disposition: Admit for observation Impression: 1. Substance abuse 2. Acute kidney injury This note was generated with [employer] dictation software. It may contain incorrect words, spelling, and punctuation that were not noted in review of the chart prior to signing ED Disposition - Plan for ED Patient: Disposition: Home or Assisted Living Diagnosis: Substance abuse, Acute kidney injury Referrals: Aj Staley MD [Primary Care Provider] -
[2019-11-26] MEDS: LORazepam 1 MG Tablet PO (21:51)
[2019-11-26 22:01] LABS: Internal QC Validated? YES +Cl - CLEAR BKGD; Pregnancy, Serum, hCG Quali. NEGATIVE Negative
[2019-11-26 22:14] LABS: Amphetamine Urine VISTA POSITIVE (<1000 ng/mL); Barbiturate Urine VISTA NEGATIVE (< 200 ng/mL); Benzodiazepine Urine VISTA POSITIVE (< 200 ng/mL); Cocaine Urine VISTA NEGATIVE (< 300 ng/mL); Ecstacy Urine VISTA POSITIVE (< 500 ng/mL); Methadone Urine VISTA NEGATIVE (< 300 ng/mL); PCP Urine VISTA NEGATIVE (< 25 ng/mL); THC Urine VISTA POSITIVE (< 50 ng/mL); Vista UDS pH Range 5
[2019-11-26 22:15] VITALS: RESP 18
[2019-11-26 22:37] LABS: Alcohol, Blood (Medical)-Serum < 3.0 mg/dL
--- NOTE | 2019-11-26 23:25 | HP.PCM_ITS ---
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 She last used methamphetamine earlier today. She states her last use of alcohol was approximately 8 weeks ago. She tested positive for THC as well. The patient is anxious and restless and complains of difficulty sleeping. She has a history of borderline personality disorder, generalized anxiety disorder and depression but denies suicidal ideation at present time. 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 Past Medical History Past Medical History (Chronic Problems): Chronic Problems (Last Reviewed 10/18/19 @ 12:08 by Phoenix Boswell MD) Depression (Chronic) Hypertension (Chronic) JOAN (generalized anxiety disorder) (Chronic) Borderline personality disorder (Chronic) Non-pressure chronic ulcer of skin of other sites with fat layer exposed (Chronic) Open wound of right axillary region with complication (Chronic) Branchial cleft sinus (Chronic) Diabetes mellitus type 2, uncontrolled (Chronic) Chronic neck pain (Chronic) Bilateral carpal tunnel syndrome (Chronic) worse on left Hidradenitis suppurativa (Chronic) Painful recurrent right axillary hidradenitis 6 mm hidradenitis right posterior earlobe 4 cm recurrent hidradenitis posterior neck and occipital scalp History of incision and drainage (Chronic) Left side of neck 12/02/17, RIGHT BREAST ABSCESS 09/17/2014, LEFT BREAST ABSCESS 10/11/2014, INGUINAL HYDRADENITIS, AXILLARY HYDRADENITIS History of section (Chronic) History of tonsillectomy (Chronic) Diabetes (Chronic) type 2 Dx : 2012 Last exacerbation : DKA : never Hypoglycemic episode : never ER visit : 01/08 - 500+ Hydradenitis (Chronic) hidradenitis left axilla - L73.2 Morbid obesity (Chronic) Bipolar affective (Chronic) Osteoarthritis (Chronic) Chronic back pain (Chronic) Smoker (Chronic) 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 Medical History: Medical History (Last Reviewed 10/18/19 @ 12:08 by Phoenix Boswell MD) Muscle spasms of neck (Inactive) M62.838 Cellulitis of right hand (Inactive) L03.113 Cat bite (Inactive) W55.01XA cat scratch bite abscess dorsum right hand by first web space Cat bite of right hand with infection (Inactive) S61.451A, L08.9, W55.01XA cat scratch bite abscess dorsum right hand by first web space Abscess of dorsum of right hand (Inactive) L02.511 cat scratch bite abscess dorsum right hand by first web space Cat scratch of left hand with infection (Inactive) S60.512A, L08.9, W55.03XA cat scratch infection dorsum left hand at proximal index finger Cat scratch of right hand with infection (Inactive) S60.511A, L08.9, W55.03XA cat scratch infection dorsum right hand with extension to long finger Cat scratch (Inactive) W55.03XA cat scratch infection dorsum right hand with extension to long finger cat scratch infection dorsum left hand at proximal index finger Diabetes (Chronic) E11.9 type 2 Dx : 2012 Last exacerbation : DKA : never Hypoglycemic episode : never ER visit : 18 - 500+ Morbid obesity (Chronic) E66.01 Bipolar affective (Chronic) F31.9 Osteoarthritis (Chronic) Chronic back pain (Chronic) M54.9, G89.29 Diabetic leg ulcer (Inactive) E11.622, L97.909 nonhealing diabetic ulcer right medial leg - E11.622 Non-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 fat layer exposed (Inactive) L97.912 diabetic ulcer right medial leg - L97.912 Open wound of left axillary region (Inactive) S41.102A open surgical hidradenitis wound left axilla - S41.102A 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 compromised skin graft left axilla Abscess of sternal region (Inactive) L02.213 L02.213 Sternal chest wall wound abscess Open wound of chest wall, complicated (Inactive) S21.109A S21.109D open chest wall sternal wound H/O hidradenitis suppurativa (Inactive) Z87.2 Z87.2 Abscess of breast (Inactive) N61.1 abscess right medial breast Alcohol abuse F10.10 Anxiety and depression F41.9, F32.9 Asthma J45.909 Drug abuse F19.10 GERD (gastroesophageal reflux disease) K21.9 Hidradenitis L73.2 LEFT INGUINAL, RIGHT AXILLARY, POSTERIOR NECK, Hyperlipidemia E78.5 Neuropathy G62.9 Non-healing surgical wound T81.89XA NON HEALING HIDRADENITIS WOUND POSTERIOR NECK. NON HEALING INFECTED HIDRADENITIS ULCER POSTERIOR NECK Osteoarthritis M19.90 [place] teeth removed K08.499 HTN (hypertension) I10 Allergies lamotrigine [From Lamictal] Allergy (Mild, Verified 11/26/19 19:41) Rash adhesive tape Allergy (Verified 11/26/19 19:41) Rash Home Medications: Ambulatory Orders Medication Instructions Recorded Duloxetine Hcl [Cymbalta] 90 mg PO DAILY 01/18/14 glipiZIDE [Glucotrol] 10 mg PO DAILY@0730 01/18/14 metFORMIN HCl [Glucophage] 1,000 mg PO BIDCM 01/18/14 Spironolactone [Aldactone] 100 mg PO DAILY 01/14/16 [place] Carbonate [[place] 300 mg PO TID 05/10/16 Carbonate ER] Lubiprostone [Amitiza] 24 mcg PO BID 01/16/18 Omeprazole [Prilosec] 20 mg PO DAILY 01/16/18 Atorvastatin Calcium 20 mg PO QHS 06/21/18 Albuterol Sulfate [Ventolin Hfa] 1 - 2 inhaler INHALATION 4X/DAY 06/30/18 PRN PRN Buspirone HCl 20 mg PO TID 06/30/18 Insulin Glargine [Lantus SoloStar 10 units SUBCUT QHS 07/13/19 Pen] hydroxyzine pamoate 100 mg capsule 100 mg PO TID 08/27/19 Albuterol Aerosols [Ventolin 2.5 mg INHALATION Q4H PRN PRN 09/04/19 Aerosols] vial.neb. 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 Smoking Status: Current every day smoker - *Family History Maternal Family History: Family History (Last Reviewed 10/18/19 @ 12:08 by Phoenix Boswell MD) Grandmother Thyroid disorder Father Diabetes Heart disease Hypertension High cholesterol Mother Heart disease Hypertension High cholesterol History Items: Heart Disease, Hypertension Paternal Family History: Family History (Last Reviewed 10/18/19 @ 12:08 by Phoenix Boswell MD) Grandmother Thyroid disorder Father Diabetes Heart disease Hypertension High cholesterol Mother Heart disease Hypertension High cholesterol History Items: Diabetes, Heart Disease, Hypertension Review of Systems Constitutional: Denies: Chills, Fever, Weight Change HEENT: Denies: Head Aches, Sinus Congestion, Sinus Drainage Cardiovascular: Denies: Chest Pain, Palpitations Respiratory: Denies: Cough, Shortness of breath at rest, Sputum production Gastrointestinal: Denies: Abdominal Pain, Nausea, Vomiting Genitourinary: Denies: Dysuria Musculoskeletal: Denies: Joint Pain, Joint Tenderness Skin: Denies: Rash, Wounds Neurological: Denies: Numbness, Tingling, Focal weakness Psychiatric: Reports: Anxiety. Denies: Depression, Homicidal Ideations, Suicidal Ideations Hematologic/ Lymphatic: Denies: Easy Bruising, Easy Bleeding VTE Information - Inpt Only VTE Present on Admission: No VTE Mechan Device Prophylaxis: SCD's VTE Pharm Prophylaxis ordered?: No Patient Problems: Active and Suspected Problems (Last Reviewed 10/18/19 @ 12:08 by Phoenix Boswell MD) Substance abuse (Acute) Acute kidney injury (Acute) - Physical Exam Vitals/I&O's: Vital Signs Temp Pulse Resp BP Pulse Ox 98.8 F 122 H 18 136/91 H 96 11/26/19 19:36 11/26/19 19:36 11/26/19 22:15 11/26/19 19:36 11/26/19 19:36 Oxygen Delivery Method Room Air Weight: 180 lb 0.008 oz Body Mass Index (BMI) 29.9 Finger Stick Blood Glucose 219 General: Alert, Oriented x3, Cooperative HEENT: Atraumatic, EOMI, Normocephalic Neck: Supple, No JVD Lungs: Clear to auscultation, Normal air movement Cardiovascular: Regular rate, Normal S1, Normal S2, No murmurs Abdomen: Bowel Sounds Present, Soft, Non Tender Extremities: No edema Skin: No rashes Musculoskeletal: No Tenderness to Palpation of Joints or Extremities Neurological: Neuro grossly intact Psych/Mental Status: Appropriate, Anxious Laboratory Results 11/26/19 20:57: WBC 18.0 H, RBC 3.86 L, Hgb 11.4 L, Hct 35.1 L, MCV 90.9, MCH 29.5, MCHC 32.5, RDW Std Deviation 47.5 H, RDW Coeff of Radha 14.4, Plt Count 458 H, MPV 8.8, Immature Gran % (Auto) 0.600, Neut % (Auto) 57.0, Lymph % (Auto) 34.9, [place] % (Auto) 5.9, Eos % (Auto) 0.8, Baso % (Auto) 0.8, Absolute Neuts (au to) 10.3 H, Absolute Lymphs (auto) 6.29 H, Nucleated RBC % 0, Differential Comment SEE COMMENT, Diff Path Review Janis bañuelos, Platelet Estimate T INC, RBC Morphology N CHROM, Polychromasia RARE, Anisocytosis RARE, Macrocytosis RARE 11/26/19 20:57: Sodium 137, Potassium 3.5, Chloride 103, Carbon Dioxide 25.0, Anion Gap 9, BUN 17, Creatinine 1.22 H, Estim Creat Clear Calc 57.91, Est GFR (MDRD) Af Amer 64, Est GFR (MDRD) Non-Af 53 L, BUN/Creatinine Ratio 13.9, Glucose 180 H, Calcium 10.1 11/26/19 20:57: Ethyl Alcohol < 3.0 11/26/19 20:57: Serum , Qual NEGATIVE 11/26/19 21:40: Urine Opiates Screen NEGATIVE, Urine Methadone Screen NEGATIVE, Ur Barbiturates Screen NEGATIVE, Ur Phencyclidine Scrn NEGATIVE, Ur Amphetamines Screen POSITIVE H, U Methamphetamin-MDMA POSITIVE H, U Benzodiazepines Scrn POSITIVE H, Urine Cocaine Screen NEGATIVE, U Cannabinoids Screen POSITIVE H, Ur Drug Screen Comment Current Medications Sodium Chloride () 1,000 mls @ 1,000 mls/hr IV .Q1H ONE Stop: 11/27/19 00:06 Assessment/Plan All Active Problems (Last Reviewed 10/18/19 @ 12:08 by Phoenix Boswell MD) Substance abuse (Acute) Acute kidney injury (Acute) Suicide gesture (Acute) [place] toxicity (Acute) Chronic Problems (Last Reviewed 10/18/19 @ 12:08 by Phoenix Boswell MD) Depression (Chronic) Hypertension (Chronic) JOAN (generalized anxiety disorder) (Chronic) Borderline personality disorder (Chronic) Non-pressure chronic ulcer of skin of other sites with fat layer exposed (Chronic) Open wound of right axillary region with complication (Chronic) Branchial cleft sinus (Chronic) Diabetes mellitus type 2, uncontrolled (Chronic) Chronic neck pain (Chronic) Bilateral carpal tunnel syndrome (Chronic) worse on left Hidradenitis suppurativa (Chronic) Painful recurrent right axillary hidradenitis 6 mm hidradenitis right posterior earlobe 4 cm recurrent hidradenitis posterior neck and occipital scalp History of incision and drainage (Chronic) Left side of neck 12/02/17, RIGHT BREAST ABSCESS 09/17/2014, LEFT BREAST ABSCESS 10/11/2014, INGUINAL HYDRADENITIS, AXILLARY HYDRADENITIS History of section (Chronic) History of tonsillectomy (Chronic) Diabetes (Chronic) type 2 Dx : 2012 Last exacerbation : DKA : never Hypoglycemic episode : never ER visit : 01/08 - 500+ Hydradenitis (Chronic) hidradenitis left axilla - L73.2 Morbid obesity (Chronic) Bipolar affective (Chronic) Osteoarthritis (Chronic) Chronic back pain (Chronic) Smoker (Chronic) 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 Methamphetamine addiction polysubstance addiction?admit to general medical floor for observation, consult case management in the morning for discharge planning regarding substance abuse, Ativan as needed for anxiety symptoms at this time 2. Depression?continue routine medications 3. Diabetes?check blood sugars before meals at bedtime will address this appropriately 4. Smoker?nicotine patch requested 5. DVT prophylaxis?SCDs Code Visit OBSV E&M: 38557 Initial observation care L2
[2019-11-26] MEDS: 0.9% Normal Saline 1,000 ML 1000 ML IV (23:46)
[2019-11-26 23:49] VITALS: BP 133/73; PULSE 99; O2SAT 98
[2019-11-27 00:11] VITALS: BMI 39.1
[2019-11-27 00:13] VITALS: BP 128/71; PULSE 103; RESP 18; TEMP 36.3; O2SAT 99
[2019-11-27 00:23] VITALS: BMI 39.1
[2019-11-27 00:30] LABS: Bedside Glucose 202 mg/dL (70-110)
[2019-11-27] MEDS: 0.9% Normal Saline 1,000 ML 125 ML IV ×3 (00:36→17:43)
[2019-11-27] MEDS: LORazepam 2 MG/ML Syringe 1 MG IV ×3 (00:57→13:51)
[2019-11-27 01:01] VITALS: PULSE 102; RESP 18; O2SAT 99
[2019-11-27] MEDS: hydrOXYzine PAM 25 MG Capsule 100 MG PO ×3 (05:41→22:43)
[2019-11-27] MEDS: Lithium Carbonate 300mg Capsule 300 MG PO ×3 (05:41→22:44)
[2019-11-27] MEDS: busPIRone 5 MG Tablet 20 MG PO ×3 (05:41→22:43)
[2019-11-27 05:46] VITALS: BP 144/86; PULSE 99; RESP 16; TEMP 36.6; O2SAT 97
[2019-11-27 06:23] LABS: Absolute Lymphocyte Count 4.67 X10^3/uL (0.83-4.51); Absolute Neutrophil Count 5.3 X10^3/uL (2.0-7.7); Basophil# 0.13 X10^3/uL; Basophil% 1.1 % (0-1); Eosinophil# 0.41 X10^3/uL; Eosinophils% 3.6 % (0-5); Hematocrit 32.6 % (37-47); Hemoglobin 10.3 g/dL (12.0-15.0); Lymphocyte # 4.67 X10^3/ul (4.0); Lymphocyte % 40.9 % (19-41); Mean Corp Hgb Conc 31.6 g/dL (32-36); Mean Corpuscular Volume 91.8 fL (81-99); Mean Platelet Vol. 9.1 fl (6.2-12.0); Monocyte# 0.84 X10^3/uL; Monocyte% 7.4 % (0-10); NRBC Flagged by Analyzer 0 % (0-5); Neutrophil % 46.5 % (47-70); Platelet Count 373 K/mm3 (150-450); RBC Distribution Width CV 14.3 % (11.6-14.6); RBC Distribution Width SD 48.5 fl (35.1-43.9); Red Blood Count 3.55 M/mm3 (4.2-5.4); White Blood Count 11.4 K/mm3 (4.4-11.0)
[2019-11-27 06:51] LABS: Anion Gap 8 (5-15); BUN 12 mg/dL (7-18); BUN/Creat Ratio 13.4 RATIO (10-20); Calcium,Total 8.4 mg/dL (8.5-10.1); Chloride 101 mmol/L (98-107); EST Glomerular Filtration Rate 76 mL/min (>60); Est Glom Filt Rate - Afr Amer 92 mL/min (>60); Estimated Creatinine Clearance 78.51 ml/min; Glucose 268 mg/dL (74-106); Potassium 3.2 mmol/L (3.5-5.1); Sodium Level 135 mmol/L (136-145)
[2019-11-27] MEDS: Acetaminophen 325 MG Tablet 650 MG PO ×2 (07:10→13:58)
--- NOTE | 2019-11-27 08:34 | PCM.PROGNOTE ---
<Kelsey Ferguson - Last Filed: 11/27/19 11:17> Patient Problems: Active and Suspected Problems (Last Reviewed 10/18/19 @ 12:08 by Phoenix Boswell MD) Substance abuse (Acute) Acute kidney injury (Acute) Subjective: Patient seen and examined. Drowsy on assessment. Reports she is not feeling well. Complains of drowsiness and fatigue, stomach cramping and nausea. - Physical Exam Vitals/I&O's: Vital Signs Temp Pulse Resp BP Pulse Ox 97.9 F 99 16 144/86 H 97 11/27/19 05:46 11/27/19 05:46 11/27/19 05:46 11/27/19 05:46 11/27/19 05:46 Oxygen Delivery Method Room Air Weight: 235 lb Body Mass Index (BMI) 39.1 Finger Stick Blood Glucose 219 Intake and Output for Last 24 Hours 11/25/19 11/26/19 11/27/19 23:59 23:59 23:59 Intake Total 1240 / 1240 Balance 1240 / 1240 General: Oriented x3, Cooperative, No apparent distress HEENT: Atraumatic, PERRLA, EOMI, Normocephalic Neck: Supple, No JVD, Negative Carotid Bruits Lungs: Clear to auscultation, Normal air movement Cardiovascular: Regular rate, Regular Rhythm, Normal S1, Normal S2, No murmurs Abdomen: Bowel Sounds Present, Soft, Non Tender, Non-Distended Extremities: No clubbing, No cyanosis, No edema, Capillary Refill Less than 3 Seconds Skin: No rashes, No breakdown Musculoskeletal: No Tenderness to Palpation of Joints or Extremities Neurological: Cranial nerves II-XII grossly intact, Neuro grossly intact Psych/Mental Status: Flat Affect Laboratory Results 11/26/19 20:57: WBC 18.0 H, RBC 3.86 L, Hgb 11.4 L, Hct 35.1 L, MCV 90.9, MCH 29.5, MCHC 32.5, RDW Std Deviation 47.5 H, RDW Coeff of Radha 14.4, Plt Count 458 H, MPV 8.8, Immature Gran % (Auto) 0.600, Neut % (Auto) 57.0, Lymph % (Auto) 34.9, [place] % (Auto) 5.9, Eos % (Auto) 0.8, Baso % (Auto) 0.8, Absolute Neuts (auto) 10.3 H, Absolute Lymphs (auto) 6.29 H, Nucleated RBC % 0, Differential Comment SEE COMMENT, Diff Path Review Janis bañuelos, Platelet Estimate SLT INC, RBC Morphology N CHROM, Polychromasia RARE, Anisocytosis RARE, Macrocytosis RARE 11/26/19 20:57: Sodium 137, Potassium 3.5, Chloride 103, Carbon Dioxide 25.0, Anion Gap 9, BUN 17, Creatinine 1.22 H, Estim Creat Clear Calc 57.91, Est GFR (MDRD) Af Amer 64, Est GFR (MDRD) Non-Af 53 L, BUN/Creatinine Ratio 13.9, Glucose 180 H, Calcium 10.1 11/26/19 20:57: Ethyl Alcohol < 3.0 11/26/19 20:57: Serum , Qual NEGATIVE 11/26/19 21:40: Urine Opiates Screen NEGATIVE, Urine Methadone Screen NEGATIVE, Ur Barbiturates Screen NEGATIVE, Ur Phencyclidine Scrn NEGATIVE, Ur Amphetamines Screen POSITIVE H, U Methamphetamin-MDMA POSITIVE H, U Benzodiazepines Scrn POSITIVE H, Urine Cocaine Screen NEGATIVE, U Cannabinoids Screen POSITIVE H, Ur Drug Screen Comment 11/27/19 00:24: POC Glucose 202 H 11/27/19 05:56: WBC 11.4 H, RBC 3.55 L, Hgb 10.3 L, Hct 32.6 L, MCV 91.8, MCH 29.0, MCHC 31.6 L, RDW Std Deviation 48.5 H, RDW Coeff of Radha 14.3, Plt Count 373, MPV 9.1, Immature Gran % (Auto) 0.500, Neut % (Auto) 46.5 L, Lymph % (Auto) 40.9, [place] % (Auto) 7.4, Eos % (Auto) 3.6, Baso % (Auto) 1.1 H, Absolute Neuts (auto) 5.3, Absolute Lymphs (auto) 4.67 H, Nucleated RBC % 0 11/27/19 05:56: Sodium 135 L, Potassium 3.2 L, Chloride 101, Carbon Dioxide 26.0, Anion Gap 8, BUN 12, Creatinine 0.90, Estim Creat Clear Calc 78.51, Est GFR (MDRD) Af Amer 92, Est GFR (MDRD) Non-Af 76, BUN/Creatinine Ratio 13.4, Glucose 268 H, Calcium 8.4 L Current Medications Acetaminophen (Tylenol) 650 mg PO Q6H PRN PRN PRN Reason: Pain Score 1-10/10 Last Admin: 11/27/19 07:10 Dose: 650 mg Documented by: Albuterol Sulfate (Ventolin Aerosols) 2.5 mg INHALATION Q4H PRN PRN PRN Reason: Wheezing Atorvastatin Calcium (Lipitor) 20 mg PO QHS [facility] Buspirone HCl (Buspar) 20 mg PO TID [facility] Last Admin: 11/27/19 05:41 Dose: 20 mg Documented by: Duloxetine HCl (Cymbalta) 90 mg PO DAILY [facility] Glipizide (Glucotrol) 10 mg PO DAILY@729 [facility] Glucagon () 1 mg IM .X1 PRN PRN Reason: Hypoglycemia Hydroxyzine Pamoate (Vistaril Pamoate Capsule) 100 mg PO TID [facility] Last Admin: 11/27/19 05:41 Dose: 100 mg Documented by: Sodium Chloride () 1,000 mls @ 125 mls/hr IV .Q8H [facility] Last Admin: 11/27/19 00:36 Dose: 125 mls/hr Documented by: Dextrose (Dextrose 10%-Water) 250 mls @ 999 mls/hr IV .Q16M PRN; Protocol PRN Reason: HYPOGLYCEMIA Insulin Glargine (Lantus (Bkc)) 10 units SC QHS [facility] [place] Carbonate ([place] Carbonate) 300 mg PO TID [facility] Last Admin: 11/27/19 05:41 Dose: 300 mg Documented by: Lorazepam (Ativan) 1 mg IV Q6H PRN PRN PRN Reason: ANXIETY Last Admin: 11/27/19 07:09 Dose: 1 mg Documented by: Lubiprostone (Amitiza) 24 mcg PO BID [facility] Metformin [facility] ([facility]) [facility] Nicotine (Nicoderm Cq (Pbkc)) 21 mg TRANSDERM. DAILY [facility] Nutritional Formula (Lactose Free) (Glucerna Shake) 120 ml PO 4X/DAY [facility] Olanzapine (Zyprexa Zydis) 15 mg PO QHS [facility] Ondansetron HCl (Zofran) 4 mg IV Q8H PRN PRN PRN Reason: NAUSEA/VOMITING Pantoprazole Sodium (Protonix) 20 mg PO DAILY [facility] Prochlorperazine Edisylate (Compazine Iv) 5 mg IV Q4H PRN PRN PRN Reason: Breakthrough nausea/vomiting Sodium Chloride () 10 - 40 ml IV UD PRN PRN Reason: SALINE FLUSH Spironolactone (Aldactone) 100 mg PO DAILY [facility] Medical Necessity - Tobacco Use Smoking Status: Current every day smoker Assessment/Plan All Active Problems (Last Reviewed 10/18/19 @ 12:08 by Phoenix Boswell MD) Substance abuse (Acute) Acute kidney injury (Acute) Suicide gesture (Acute) [place] toxicity (Acute) 1. Polysubstance abuse, requesting detox-tox screen positive for amphetamines, methamphetamine, benzodiazepines, cannabinoids. PRN regimen for symptom management. Case management/social work consult for discharge planning and outpatient resources. Given drowsiness and history of suicide attempt with lithium overdose, will check lithium level. 2. Type 2 diabetes mellitus-hemoglobin A1c 10/09 7.4%. Continue home insulin and oral regimen. 3. Bipolar/depression/anxiety-recent suicide attempt September 2019 with intentional overdose of lithium. Discharged to inpatient psychiatric facility at that time. Continue buspirone, duloxetine, lithium 4. GERD-continue home omeprazole regimen. 5. Tobacco dependence- encouraged cessation. 6. Hyperlipidemia-continue statin regimen. 7. Obesity-encouraged diet lifestyle modifications. 8. Hydradenitis suppurativa-history of surgical debridement by Dr. Boswell. DVT prophylaxis-SCDs This patient was seen by MYRTLE Browning under the supervision of Dr. Barajas. <Rafy Barajas F - Last Filed: 11/27/19 13:06> - Physical Exam Vitals/I&O's: Vital Signs Temp Pulse Resp BP Pulse Ox 97.5 F L 95 14 113/51 L 97 11/27/19 09:45 11/27/19 09:45 11/27/19 09:45 11/27/19 09:45 11/27/19 09:45 Oxygen Delivery Method Room Air Weight: 235 lb 0.204 oz Body Mass Index (BMI) 39.1 Finger Stick Blood Glucose 219 Intake and Output for Last 24 Hours 11/25/19 11/26/19 11/27/19 23:59 23:59 23:59 Intake Total 2239 Balance 2239 Laboratory Results 11/26/19 20:57: WBC 18.0 H, RBC 3.86 L, Hgb 11.4 L, Hct 35.1 L, MCV 90.9, MCH 29.5, MCHC 32.5, RDW Std Deviation 47.5 H, RDW Coeff of Radha 14.4, Plt Count 458 H, MPV 8.8, Immature Gran % (Auto) 0.600, Neut % (Auto) 57.0, Lymph % (Auto) 34.9, [place] % (Auto) 5.9, Eos % (Auto) 0.8, Baso % (Auto) 0.8, Absolute Neuts (auto) 10.3 H, Absolute Lymphs (auto) 6.29 H, Nucleated RBC % 0, Differential Comment SEE COMMENT, Diff Path Review Janis bañuelos, Platelet Estimate SLT INC, RBC Morphology N CHROM, Polychromasia RARE, Anisocytosis RARE, Macrocytosis RARE 11/26/19 20:57: Sodium 137, Potassium 3.5, Chloride 103, Carbon Dioxide 25.0, Anion Gap 9, BUN 17, Creatinine 1.22 H, Estim Creat Clear Calc 57.91, Est GFR (MDRD) Af Amer 64, Est GFR (MDRD) Non-Af 53 L, BUN/Creatinine Ratio 13.9, Glucose 180 H, Calcium 10.1 11/26/19 20:57: Ethyl Alcohol < 3.0 11/26/19 20:57: Serum , Qual NEGATIVE 11/26/19 21:40: Urine Opiates Screen NEGATIVE, Urine Methadone Screen NEGATIVE, Ur Barbiturates Screen NEGATIVE, Ur Phencyclidine Scrn NEGATIVE, Ur Amphetamines Screen POSITIVE H, U Methamphetamin-MDMA POSITIVE H, U Benzodiazepines Scrn POSITIVE H, Urine Cocaine Screen NEGATIVE, U Cannabinoids Screen POSITIVE H, Ur Drug Screen Comment 11/27/19 00:24: POC Glucose 202 H 11/27/19 05:56: WBC 11.4 H, RBC 3.55 L, Hgb 10.3 L, Hct 32.6 L, MCV 91.8, MCH 29.0, MCHC 31.6 L, RDW Std Deviation 48.5 H, RDW Coeff of Radha 14.3, Plt Count 373, MPV 9.1, Immature Gran % (Auto) 0.500, Neut % (Auto) 46.5 L, Lymph % (Auto) 40.9, [place] % (Auto) 7.4, Eos % (Auto) 3.6, Baso % (Auto) 1.1 H, Absolute Neuts (auto) 5.3, Absolute Lymphs (auto) 4.67 H, Nucleated RBC % 0 11/27/19 05:56: Sodium 135 L, Potassium 3.2 L, Chloride 101, Carbon Dioxide 26.0, Anion Gap 8, BUN 12, Creatinine 0.90, Estim Creat Clear Calc 78.51, Est GFR (MDRD) Af Amer 92, Est GFR (MDRD) Non-Af 76, BUN/Creatinine Ratio 13.4, Glucose 268 H, Calcium 8.4 L 11/27/19 05:56: [place] 0.40 L Current Medications Acetaminophen (Tylenol) 650 mg PO Q6H PRN PRN PRN Reason: Pain Score 1-10/10 Last Admin: 11/27/19 07:10 Dose: 650 mg Documented by: Albuterol Sulfate (Ventolin Aerosols) 2.5 mg INHALATION Q4H PRN PRN PRN Reason: Wheezing Atorvastatin Calcium (Lipitor) 20 mg PO QHS [facility] Buspirone HCl (Buspar) 20 mg PO TID [facility] Last Admin: 11/27/19 05:41 Dose: 20 mg Documented by: Duloxetine HCl (Cymbalta) 90 mg PO DAILY [facility] Last Admin: 11/27/19 09:53 Dose: 90 mg Documented by: Glipizide (Glucotrol) 10 mg PO DAILY@0730 [facility] Last Admin: 11/27/19 09:53 Dose: 10 mg Documented by: Glucagon () 1 mg IM .X1 PRN PRN Reason: Hypoglycemia Hydroxyzine Pamoate (Vistaril Pamoate Capsule) 100 mg PO TID [facility] Last Admin: 11/27/19 05:41 Dose: 100 mg Documented by: Sodium Chloride () 1,000 mls @ 125 mls/hr IV .Q8H [facility] Last Admin: 11/27/19 09:52 Dose: 125 mls/hr Documented by: Dextrose (Dextrose 10%-Water) 250 mls @ 999 mls/hr IV .Q16M PRN; Protocol PRN Reason: HYPOGLYCEMIA Insulin Glargine (Lantus (Bkc)) 10 units SC QHS [facility] [place] Carbonate ([place] Carbonate) 300 mg PO TID [facility] Last Admin: 11/27/19 05:41 Dose: 300 mg Documented by: Lorazepam (Ativan) 1 mg IV Q6H PRN PRN PRN Reason: ANXIETY Last Admin: 11/27/19 07:09 Dose: 1 mg Documented by: Lubiprostone (Amitiza) 24 mcg PO BID [facility] Last Admin: 11/27/19 09:53 Dose: 24 mcg Documented by: Metformin HCl (Glucophage) 1,000 mg PO BIDCM [facility] Last Admin: 11/27/19 09:54 Dose: 1,000 mg Documented by: Nicotine (Nicoderm Cq (Pbkc)) 21 mg TRANSDERM. DAILY [facility] Last Admin: 11/27/19 09:54 Dose: 21 mg Documented by: Nutritional Formula (Lactose Free) (Glucerna Shake) 120 ml PO 4X/DAY [facility] Last Admin: 11/27/19 09:56 Dose: 120 ml Documented by: Olanzapine (Zyprexa Zydis) 15 mg PO QHS [facility] Ondansetron HCl (Zofran) 4 mg IV Q8H PRN PRN PRN Reason: NAUSEA/VOMITING Pantoprazole Sodium (Protonix) 20 mg PO DAILY [facility] Last Admin: 11/27/19 09:53 Dose: 20 mg Documented by: Prochlorperazine Edisylate (Compazine Iv) 5 mg IV Q4H PRN PRN PRN Reason: Breakthrough nausea/vomiting Sodium Chloride () 10 - 40 ml IV UD PRN PRN Reason: SALINE FLUSH Spironolactone (Aldactone) 100 mg PO DAILY [facility] Last Admin: 11/27/19 09:53 Dose: 100 mg Documented by: Code Visit Addendum: Dr. Barajas I personally examined the patient and reviewed the chart. I agree with the above. 34-year-old female with type 2 diabetes, bipolar disorder, presenting with polysubstance abuse requesting detox. We will continue with the detox protocols, we will need to get her transitioned to an outpatient mental health facility since she is positive for benzo even though she has not been prescribed one. In September she had a inpatient mental health facility admission secondary to an overdose of her lithium. [place] levels were checked and they were none 0.4, will continue with her lithium as well as her olanzapine and work on getting her placed again prior to discharge. OBSV E&M: 54675 Subsequent observation care L2
[2019-11-27 09:45] VITALS: BP 113/51; PULSE 95; RESP 14; TEMP 36.4; O2SAT 97
[2019-11-27] MEDS: Spironolactone 50 MG Tablet 100 MG PO (09:53)
[2019-11-27] MEDS: glipiZIDE 10 MG Tablet PO (09:53)
[2019-11-27] MEDS: Lubiprostone 24 MCG Capsule PO ×2 (09:53→22:44)
[2019-11-27] MEDS: DULoxetine Hcl 30 MG Capsule 90 MG PO (09:53)
[2019-11-27] MEDS: Pantoprazole Sodium 20 MG Tablet PO (09:53)
[2019-11-27] MEDS: metFORMIN HCl 1,000 MG Tablet 1000 MG PO ×2 (09:54→17:43)
[2019-11-27] MEDS: Glucerna Shake 120 ML LIQUID PO ×3 (09:56→22:48)
--- NOTE | 2019-11-27 11:24 | CASEMGMT ---
Addendum entered by Nishi King 11/27/19 13:19: CJ received call from Santiago at [facility] stating pt will need to complete walk in assessment as pt has missed multiple scheduled appointments. Santiago states walk in assessments are M-F 8:00-5:00pm. CJ updated pt. Original Note: Social Work Note SW reviewed chart. Pt has history of substance abuse and Mental Health. CJ spoke with RN pt had behavior sitter, not suicidal sitter, and the sitter was discontinued this morning. 09/20/2019-09/27/2019 Pt was at [facility] 10/03/2019-10/08/2019 Pt was admitted to [facility] and was discharged home with follow up appointments with Dr. Friend (psychiatrist at [facility]), Nilda at [facility] for housing assistance. 10/17/2019 Pt was discharged to [facility] 10/30/2019 Pt was discharged to [facility] CJ met with pt and introduced self and role at [facility]. Pt was sleeping but woke easily when this worker entered the room. CJ introduced self and role at [facility]. Pt is alert and orientated x3. Pt confirms that she [facility] to [facility]. Pt states she uses little bit of everything. Per H+P, pt used methamphetamine, tested positive for THC and last used alcohol 8 weeks ago. Pt also states she does Speed. Pt states that she does have Mental Health History and states she has been diagnosed with Bipolar, anxiety, OCD. Per H+P pt has been diagnosed with Bipolar, Borderline personality disorder, anxiety and depression. Pt states that she is current with Dr. Jackman and has an appointment coming up. Pt states [facility] will call her to remind her of her appointment. Pt states she never made it to her appointment with Nilda with [facility] but does plan on following up with [facility] at discharge to get linked up with Housing assistance, counseling, and CM. CJ offered to arrange appointment for pt at [facility] and pt is agreeable. CJ then discussed suicidal thoughts/plans/ideations with pt. Pt confirms that she has history of suicidal thoughts/plans/ideations with the most recent thought being yesterday. Pt states that was just feeling down on herself. Pt denied any plan of suicidal. Pt denied any current suicidal/homicidal thoughts/plans/ideations. Pt states that she has good support and states that her parents are good support. Pt states that she plans on returning to her parents home at discharge, states that she has been in contact with them. Pt denied additional needs or concerns at this time, denied any current suicidal/homicidal thoughts/plans/ideations. CJ placed a call to Santiago at [facility] and left message regarding pt. CJ will schedule appointment with Santiago when she returns this worker's call. Plan: Pt to return home at her parents house at discharge. Pt plans on resuming her psychiatry appointments with Dr. Friend at [facility] and will begin services at [facility] (housing, counseling, cm). Nishi King [employer], [employer]EL ANALYST
[2019-11-27 13:26] LABS: Pathologist Review Reviewed
[2019-11-27 14:06] LABS: Bedside Glucose 235 mg/dL (70-110)
[2019-11-27 14:10] LABS: Bedside Glucose 193 mg/dL (70-110)
--- NOTE | 2019-11-27 14:15 | CASEMGMT ---
Case Management Progress Note: This teletypewriter operator presented to patient bedside, introduced self and role. Explained and reviewed [facility] form with patient in regards to current treatment during this hospitalization. Informed Outpatient billing is determined by her insurance policy and continual review is conducted to determine any changes in condition that may warrant Inpatient status. Denies any questions or concerns regarding [facility] form. Patient stated understanding and signed [facility] form which was placed in her hard chart and provided a copy. Ari Rivas RNCM
[2019-11-27 16:15] VITALS: BP 110/66; PULSE 91; RESP 16; TEMP 36.6; O2SAT 99
[2019-11-27 16:25] LABS: Bedside Glucose 169 mg/dL (70-110)
[2019-11-27] MEDS: Ondansetron 4 MG/2 ML Vial IV (16:27)
[2019-11-27] MEDS: tiZANidine HCl 2 MG Tablet 4 MG PO ×2 (17:43→22:44)
[2019-11-27] MEDS: Gabapentin 300 MG Capsule PO ×2 (17:43→22:44)
[2019-11-27 21:34] VITALS: BP 128/83; PULSE 87; RESP 16; TEMP 36.6; O2SAT 98
[2019-11-27 22:25] LABS: Bedside Glucose 203 mg/dL (70-110)
[2019-11-27] MEDS: OLANZapine 5 MG/TAB TAB.RAPDIS 15 MG PO (22:43)
[2019-11-27] MEDS: Atorvastatin Calcium 20 MG Tablet PO (22:44)
[2019-11-28] MEDS: 0.9% Normal Saline 1,000 ML 125 ML IV ×2 (01:52→10:09)
[2019-11-28 03:50] VITALS: BP 119/75; PULSE 87; RESP 16; TEMP 36.5; O2SAT 95
[2019-11-28 06:05] LABS: Hematocrit 29.7 % (37-47); Hemoglobin 9.7 g/dL (12.0-15.0); Mean Corp Hgb Conc 32.7 g/dL (32-36); Mean Corpuscular Hgb 30.2 pg (27.0-32.0); Mean Corpuscular Volume 92.5 fL (81-99); Mean Platelet Vol. 9.3 fl (6.2-12.0); Platelet Count 351 K/mm3 (150-450); RBC Distribution Width CV 14.6 % (11.6-14.6); RBC Distribution Width SD 49.1 fl (35.1-43.9); Red Blood Count 3.21 M/mm3 (4.2-5.4); White Blood Count 10.6 K/mm3 (4.4-11.0)
[2019-11-28] MEDS: hydrOXYzine PAM 25 MG Capsule 100 MG PO (06:27)
[2019-11-28] MEDS: Lithium Carbonate 300mg Capsule 300 MG PO (06:27)
[2019-11-28] MEDS: busPIRone 5 MG Tablet 20 MG PO (06:27)
[2019-11-28 06:40] LABS: Anion Gap 5 (5-15); BUN 9 mg/dL (7-18); BUN/Creat Ratio 11.7 RATIO (10-20); Calcium,Total 7.7 mg/dL (8.5-10.1); Chloride 114 mmol/L (98-107); Creatinine, Serum 0.77 mg/dL (0.55-1.02); EST Glomerular Filtration Rate 91 mL/min (>60); Est Glom Filt Rate - Afr Amer 110 mL/min (>60); Estimated Creatinine Clearance 91.76 ml/min; Glucose 170 mg/dL (74-106); Potassium 3.8 mmol/L (3.5-5.1); Sodium Level 143 mmol/L (136-145)
[2019-11-28 06:45] LABS: Bedside Glucose 144 mg/dL (70-110)
[2019-11-28 07:30] VITALS: BP 121/77; PULSE 89; RESP 18; TEMP 36.7; O2SAT 94
[2019-11-28] MEDS: glipiZIDE 10 MG Tablet PO (07:34)
[2019-11-28] MEDS: metFORMIN HCl 1,000 MG Tablet 1000 MG PO (07:34)
[2019-11-28] MEDS: Pantoprazole Sodium 20 MG Tablet PO (09:19)
[2019-11-28] MEDS: DULoxetine Hcl 30 MG Capsule 90 MG PO (09:19)
[2019-11-28] MEDS: Gabapentin 300 MG Capsule PO (09:20)
[2019-11-28] MEDS: tiZANidine HCl 2 MG Tablet 4 MG PO (09:20)
[2019-11-28] MEDS: Spironolactone 50 MG Tablet 100 MG PO (09:20)
[2019-11-28] MEDS: Lubiprostone 24 MCG Capsule PO (09:20)
[2019-11-28] MEDS: Glucerna Shake 120 ML LIQUID PO (09:23)
--- NOTE | 2019-11-28 11:03 | PCM.DC ---
- Discharge Diagnoses Current Active Problems: Current Active and Chronic Problems (Last Reviewed 10/18/19 @ 12:08 by Phoenix Boswell MD) Substance abuse (Acute) Acute kidney injury (Acute) You will use the following diet at home:: No restrictions Discharge Activity: Return to Normal Activity Call your doctor if you observe: Shortness of breath, Dizziness, Fainting spells, Chest pain Allergies/Adverse Reactions: Allergies lamotrigine [From Lamictal] Allergy (Mild, Verified 11/26/19 19:41) Rash adhesive tape Allergy (Verified 11/26/19 19:41) Rash Medications to take at Discharge Duloxetine Hcl [Cymbalta] 90 mg PO DAILY 01/18/14 glipiZIDE [Glucotrol] 10 mg PO DAILY@0730 01/18/14 metFORMIN HCl [Glucophage] 1,000 mg PO BIDCM 01/18/14 Spironolactone [Aldactone] 100 mg PO DAILY 01/14/16 [place] Carbonate [[place] Carbonate ER] 300 mg PO TID 05/10/16 Lubiprostone [Amitiza] 24 mcg PO BID 01/16/18 Omeprazole [Prilosec] 20 mg PO DAILY 01/16/18 Atorvastatin Calcium 20 mg PO QHS 06/21/18 Albuterol Sulfate [Ventolin Hfa] 1 - 2 inhaler INHALATION 4X/DAY PRN PRN 06/30/18 Buspirone HCl 20 mg PO TID 06/30/18 Insulin Glargine [Lantus SoloStar Pen] 10 units SUBCUT QHS 07/13/19 hydroxyzine pamoate 100 mg capsule 100 mg PO TID 08/27/19 Albuterol Aerosols [Ventolin Aerosols] 2.5 mg INHALATION Q4H PRN PRN vial.neb. 09/04/19 Insulin Lispro [Humalog KwikPen] See Protocol SUBCUT ACHS insuln.pen 10/08/19 Olanzapine 20 mg PO QHS 10/29/19 Gabapentin [Neurontin] 300 mg PO 4X/DAY 11/27/19 Glipizide 5 mg PO DINNER 11/27/19 Tizanidine HCl [Zanaflex] 4 mg PO 4X/DAY 11/27/19 Primary Care Physician: Aj Staley MD [Primary Care Provider] - Please follow up with your Primary Care Physician in: 1 Week Test Results: Test results from this visit will be discussed in further detail at your follow-up appointment, if applicable. Please Follow Up With: Dr. Friend When: As scheduled Proposed Discharge Date: 11/28/19
--- NOTE | 2019-11-28 11:13 | PCM.DC.SUM ---
<Kelsey Ferguson - Last Filed: 11/28/19 11:23> Discharge Date and Diagnosis Date of Admission: 11/26/19 Date of Discharge: 11/28/19 - Primary Discharge Diagnosis Active and Suspected Problems (Last Reviewed 10/18/19 @ 12:08 by Phoenix Boswell MD) 1. Polysubstance abuse, requesting detox 2. Acute kidney injury 3. Bipolar/depression/anxiety 4. GERD 5. Tobacco dependence 6. Hyperlipidemia 7. Obesity 8. Hydradenitis suppurativa 9. 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) Open wound of right axillary region with complication (Chronic) Branchial cleft sinus (Chronic) Diabetes mellitus type 2, uncontrolled (Chronic) Chronic neck pain (Chronic) Bilateral carpal tunnel syndrome (Chronic) worse on left Hidradenitis suppurativa (Chronic) Painful recurrent right axillary hidradenitis 6 mm hidradenitis right posterior earlobe 4 cm recurrent hidradenitis posterior neck and occipital scalp History of incision and drainage (Chronic) Left side of neck 12/02/17, RIGHT BREAST ABSCESS 09/17/2014, LEFT BREAST ABSCESS 10/11/2014, INGUINAL HYDRADENITIS, AXILLARY HYDRADENITIS History of section (Chronic) History of tonsillectomy (Chronic) Diabetes (Chronic) type 2 Dx : 2012 Last exacerbation : DKA : never Hypoglycemic episode : never ER visit : 01/08 - 500+ Hydradenitis (Chronic) hidradenitis left axilla - L73.2 Morbid obesity (Chronic) Bipolar affective (Chronic) Osteoarthritis (Chronic) Chronic back pain (Chronic) Smoker (Chronic) 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 1. Polysubstance abuse, requesting detox-tox screen positive for amphetamines, methamphetamine, benzodiazepines, cannabinoids. Patient was treated with PRN regimen for symptom management. Case management/social work consulted for discharge planning and outpatient resources. [place] level low. Patient will return to parents house at discharge. Continue psychiatry appointments with Dr. Friend at the counseling center as well as begin services at [facility]. 2. Acute kidney injury-secondary to dehydration. Resolved with IV fluids. 3. Bipolar/depression/anxiety-recent suicide attempt September 2019 with intentional overdose of lithium. Discharged to inpatient psychiatric facility at that time. Continue buspirone, duloxetine, lithium 4. GERD-continue home omeprazole regimen. 5. Tobacco dependence- encouraged cessation. 6. Hyperlipidemia-continue statin regimen. 7. Obesity-encouraged diet lifestyle modifications. 8. Hydradenitis suppurativa-history of surgical debridement by Dr. Boswell. 9. Type 2 diabetes mellitus-hemoglobin A1c 10/09 7.4%. Continue home insulin and oral regimen. General: Oriented x3, Cooperative, No apparent distress HEENT: Atraumatic, PERRLA, EOMI, Normocephalic Neck: Supple, No JVD, Negative Carotid Bruits Lungs: Clear to auscultation, Normal air movement Cardiovascular: Regular rate, Regular Rhythm, Normal S1, Normal S2, No murmurs Abdomen: Bowel Sounds Present, Soft, Non Tender, Non-Distended Extremities: No clubbing, No cyanosis, No edema, Capillary Refill Less than 3 Seconds Skin: No rashes, No breakdown Musculoskeletal: No Tenderness to Palpation of Joints or Extremities Neurological: Cranial nerves II-XII grossly intact, Neuro grossly intact Psych/Mental Status: Flat Affect Patient seen and examined prior to discharge. Physical assessment as noted above. Patient is stable for discharge with follow up recommendations as noted above. This patient was seen by MYRTLE Browning under the supervision of Dr. Barajas. - Physical Exam Vitals/I&O's: Vital Signs Temp Pulse Resp BP Pulse Ox 98.1 F 89 18 121/77 H 94 11/28/19 07:30 11/28/19 07:30 11/28/19 07:30 11/28/19 07:30 11/28/19 07:30 Oxygen Delivery Method Room Air Weight: 235 lb 0.204 oz Body Mass Index (BMI) 39.1 Finger Stick Blood Glucose 219 Intake and Output for Last 24 Hours 11/26/19 11/27/19 11/28/19 23:59 23:59 23:59 Intake Total 3971.25 / 4511.25 2790.00 / 2790.00 Output Total 500 / 800 300 / 300 Balance 3471.25 / 3711.25 2490.00 / 2490.00 Laboratory Results 11/26/19 20:57: Diff Path Review Reviewed 11/27/19 05:56: [place] 0.40 L 11/27/19 09:48: POC Glucose 235 H 11/27/19 13:50: POC Glucose 193 H 11/27/19 16:15: POC Glucose 169 H 11/27/19 21:46: POC Glucose 203 H 11/28/19 05:44: WBC 10.6, RBC 3.21 L, Hgb 9.7 L, Hct 29.7 L, MCV 92.5, MCH 30.2, MCHC 32.7, RDW Std Deviation 49.1 H, RDW Coeff of Radha 14.6, Plt Count 351, MPV 9.3 11/28/19 05:44: Sodium 143, Potassium 3.8, Chloride 114 H, Carbon Dioxide 24.0, Anion Gap 5, BUN 9, Creatinine 0.77, Estim Creat Clear Calc 91.76, Est GFR (MDRD) Af Amer 110, Est GFR (MDRD) Non-Af 91, BUN/Creatinine Ratio 11.7, Glucose 170 H, Calcium 7.7 L 11/28/19 06:30: POC Glucose 144 H Current Medications Acetaminophen (Tylenol) 650 mg PO Q6H PRN PRN PRN Reason: Pain Score 1-10/10 Last Admin: 11/27/19 13:58 Dose: 650 mg Documented by: Albuterol Sulfate (Ventolin Aerosols) 2.5 mg INHALATION Q4H PRN PRN PRN Reason: Wheezing Atorvastatin Calcium (Lipitor) 20 mg PO QHS [facility] Last Admin: 11/27/19 22:44 Dose: 20 mg Documented by: Buspirone HCl (Buspar) 20 mg PO TID [facility] Last Admin: 11/28/19 06:27 Dose: 20 mg Documented by: Duloxetine HCl (Cymbalta) 90 mg PO DAILY [facility] Last Admin: 11/28/19 09:19 Dose: 90 mg Documented by: Gabapentin (Neurontin) 300 mg PO 4X/DAY [facility] Last Admin: 11/28/19 09:20 Dose: 300 mg Documented by: Glipizide (Glucotrol) 10 mg PO DAILY@0730 [facility] Last Admin: 11/28/19 07:34 Dose: 10 mg Documented by: Glucagon () 1 mg IM .X1 PRN PRN Reason: Hypoglycemia Hydroxyzine Pamoate (Vistaril Pamoate Capsule) 100 mg PO TID [facility] Last Admin: 11/28/19 06:27 Dose: 100 mg Documented by: Sodium Chloride () 1,000 mls @ 125 mls/hr IV .Q8H [facility] Last Admin: 11/28/19 10:09 Dose: 125 mls/hr Documented by: Dextrose (Dextrose 10%-Water) 250 mls @ 999 mls/hr IV .Q16M PRN; Protocol PRN Reason: HYPOGLYCEMIA Insulin Glargine (Lantus ([facility])) 10 units SC QHS [facility] Last Admin: 11/27/19 22:48 Dose: 10 u Documented by: Insulin Human Lispro (Humalog Kwikpen ([facility])) 0 unit SC ACHS [facility]; Protocol Last Admin: 11/28/19 06:31 Dose: Not Given Documented by: [place] Carbonate ([place] Carbonate) 300 mg PO TID [facility] Last Admin: 11/28/19 06:27 Dose: 300 mg Documented by: Lubiprostone (Amitiza) 24 mcg PO BID [facility] Last Admin: 11/28/19 09:20 Dose: 24 mcg Documented by: Metformin HCl (Glucophage) 1,000 mg PO BIDCM [facility] Last Admin: 11/28/19 07:34 Dose: 1,000 mg Documented by: Nicotine (Nicoderm Cq (Pbkc)) 21 mg TRANSDERM. DAILY [facility] Last Admin: 11/28/19 09:19 Dose: 21 mg Documented by: Nutritional Formula (Lactose Free) (Glucerna Shake) 120 ml PO 4X/DAY [facility] Last Admin: 11/28/19 09:23 Dose: 120 ml Documented by: Olanzapine (Zyprexa Zydis) 15 mg PO QHS [facility] Last Admin: 11/27/19 22:43 Dose: 15 mg Documented by: Ondansetron HCl (Zofran) 4 mg IV Q8H PRN PRN PRN Reason: NAUSEA/VOMITING Last Admin: 11/27/19 16:27 Dose: 4 mg Documented by: Pantoprazole Sodium (Protonix) 20 mg PO DAILY [facility] Last Admin: 11/28/19 09:19 Dose: 20 mg Documented by: Prochlorperazine Edisylate (Compazine Iv) 5 mg IV Q4H PRN PRN PRN Reason: Breakthrough nausea/vomiting Sodium Chloride () 10 - 40 ml IV UD PRN PRN Reason: SALINE FLUSH Spironolactone (Aldactone) 100 mg PO DAILY [facility] Last Admin: 11/28/19 09:20 Dose: 100 mg Documented by: Tizanidine HCl (Zanaflex) 4 mg PO 4X/DAY [facility] Last Admin: 11/28/19 09:20 Dose: 4 mg Documented by: Discharge Diet: No Restrictions Discharge Activity: Return to Normal Activity Call your doctor if you observe: Shortness of breath, Dizziness, Fainting spells, Chest pain Home Medications: Medications to take at Discharge Duloxetine Hcl [Cymbalta] 90 mg PO DAILY 01/18/14 glipiZIDE [Glucotrol] 10 mg PO DAILY@0730 01/18/14 metFORMIN HCl [Glucophage] 1,000 mg PO BIDCM 01/18/14 Spironolactone [Aldactone] 100 mg PO DAILY 01/14/16 [place] Carbonate [[place] Carbonate ER] 300 mg PO TID 05/10/16 Lubiprostone [Amitiza] 24 mcg PO BID 01/16/18 Omeprazole [Prilosec] 20 mg PO DAILY 01/16/18 Atorvastatin Calcium 20 mg PO QHS 06/21/18 Albuterol Sulfate [Ventolin Hfa] 1 - 2 inhaler INHALATION 4X/DAY PRN PRN 06/30/18 Buspirone HCl 20 mg PO TID 06/30/18 Insulin Glargine [Lantus SoloStar Pen] 10 units SUBCUT QHS 07/13/19 hydroxyzine pamoate 100 mg capsule 100 mg PO TID 08/27/19 Albuterol Aerosols [Ventolin Aerosols] 2.5 mg INHALATION Q4H PRN PRN vial.neb. 09/04/19 Insulin Lispro [Humalog KwikPen] See Protocol SUBCUT ACHS insuln.pen 10/08/19 Olanzapine 20 mg PO QHS 10/29/19 Gabapentin [Neurontin] 300 mg PO 4X/DAY 11/27/19 Glipizide 5 mg PO DINNER 11/27/19 Tizanidine HCl [Zanaflex] 4 mg PO 4X/DAY 11/27/19 Primary Care Physician: Aj Staley MD [Primary Care Provider] - Please follow up with your Primary Care Physician in: 1 Week Please Follow Up With: Dr. 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) Open wound of right axillary region with complication (Chronic) Branchial cleft sinus (Chronic) Diabetes mellitus type 2, uncontrolled (Chronic) Chronic neck pain (Chronic) Bilateral carpal tunnel syndrome (Chronic) worse on left Hidradenitis suppurativa (Chronic) Painful recurrent right axillary hidradenitis 6 mm hidradenitis right posterior earlobe 4 cm recurrent hidradenitis posterior neck and occipital scalp History of incision and drainage (Chronic) Left side of neck 12/02/17, RIGHT BREAST ABSCESS 09/17/2014, LEFT BREAST ABSCESS 10/11/2014, INGUINAL HYDRADENITIS, AXILLARY HYDRADENITIS History of section (Chronic) History of tonsillectomy (Chronic) Diabetes (Chronic) type 2 Dx : 2012 Last exacerbation : DKA : never Hypoglycemic episode : never ER visit : 01/08 - 500+ Hydradenitis (Chronic) hidradenitis left axilla - L73.2 Morbid obesity (Chronic) Bipolar affective (Chronic) Osteoarthritis (Chronic) Chronic back pain (Chronic) Smoker (Chronic) 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 Hospital Course and Treatment Summary of Care Provided: The patient is a 34 year old F [] - Physical Exam Vitals/I&O's: Vital Signs Temp Pulse Resp BP Pulse Ox 98.3 F 93 18 121/75 H 97 11/28/19 12:30 11/28/19 12:30 11/28/19 12:30 11/28/19 12:30 11/28/19 12:30 Oxygen Delivery Method Room Air Weight: 235 lb 0.204 oz Body Mass Index (BMI) 39.1 Finger Stick Blood Glucose 219 Intake and Output for Last 24 Hours 11/26/19 11/27/19 11/28/19 23:59 23:59 23:59 Intake Total 3971.25 / 4511.25 3292.08 / 3292.08 Output Total 500 / 800 650 / 650 Balance 3471.25 / 3711.25 2642.08 / 2642.08 Laboratory Results 11/27/19 16:15: POC Glucose 169 H 11/27/19 21:46: POC Glucose 203 H 11/28/19 05:44: WBC 10.6, RBC 3.21 L, Hgb 9.7 L, Hct 29.7 L, MCV 92.5, MCH 30.2, MCHC 32.7, RDW Std Deviation 49.1 H, RDW Coeff of Radha 14.6, Plt Count 351, MPV 9.3 11/28/19 05:44: Sodium 143, Potassium 3.8, Chloride 114 H, Carbon Dioxide 24.0, Anion Gap 5, BUN 9, Creatinine 0.77, Estim Creat Clear Calc 91.76, Est GFR (MDRD) Af Amer 110, Est GFR (MDRD) Non-Af 91, BUN/Creatinine Ratio 11.7, Glucose 170 H, Calcium 7.7 L 11/28/19 06:30: POC Glucose 144 H 11/28/19 11:14: POC Glucose 169 H Code Visit Addendum: Dr. Barajas I personally examined the patient and reviewed the chart. I agree with the above. 34-year-old female with bipolar disorder as well as a history of a previous suicide attempt by overdosing on lithium presents with wanting to be detox for polysubstance abuse. She says that she feels much better today and would like to go home she says that her plan is to follow-up with [facility] as an outpatient and return to her parents home. We did check a lithium level which was low and therefore she was continued on her lithium. She refused to be placed and said that should be fine at home on her own with her parents and [facility] as an outpatient. I discussed with her that her benzodiazepine drug test came back positive and that it would be inappropriate for her to be using benzodiazepine medication from other people and that she is to follow-up with a primary care doctor as well as any mental health provider that she is seen in the past. OBSV E&M: [id number] Observation care discharge
[2019-11-28 12:11] LABS: Bedside Glucose 169 mg/dL (70-110)
[2019-11-28 12:30] VITALS: BP 121/75; PULSE 93; RESP 18; TEMP 36.8; O2SAT 97
[2019-11-28] MEDS: Insulin Lispro 100 UNIT/ML INSULN.PEN SC (12:42)
== END 2019-11-28 14:21 | disposition home or self-care (01) ==
LOC: ED 23:22 → MS3 11-27 00:12
PROVIDERS: Nurse Practitioner Family; Admitting Provider Family Medicine; Emergency Provider Emergency Medicine; Family Provider Family Medicine; PCP Family Medicine; Visit Provider Family Medicine
DX: F15.20 Other stimulant dependence, uncomplicated (principal); N17.9 Acute kidney failure, unspecified; E11.65 Type 2 diabetes mellitus with hyperglycemia; E11.40 Type 2 diabetes mellitus with diabetic neuropathy, unspecified; F41.1 Generalized anxiety disorder; F60.3 Borderline personality disorder; L73.2 Hidradenitis suppurativa; E66.01 Morbid (severe) obesity due to excess calories; F31.9 Bipolar disorder, unspecified; M19.90 Unspecified osteoarthritis, unspecified site; G89.29 Other chronic pain; K21.9 Gastro-esophageal reflux disease without esophagitis; J45.909 Unspecified asthma, uncomplicated; E78.5 Hyperlipidemia, unspecified; F17.200 Nicotine dependence, unspecified, uncomplicated; F10.10 Alcohol abuse, uncomplicated; I10 Essential (primary) hypertension; Z79.899 Other long term (current) drug therapy; Z79.4 Long term (current) use of insulin; Z68.39 Body mass index [BMI] 39.0-39.9, adult; Z71.3 Dietary counseling and surveillance
CPT/HCPCS: 36415; 80048; 80178; 80307; 80320; 82962; 84703; 85025; 85027; 96361; 96374; 96375; 96376; 97802; 99218; 99285; J7030; A4216; G0378; G0480; J2405

== ENCOUNTER 2019-12-14 11:52 | Observation (INO) | payer MEDICARE, MEDICAID, SELFPAY ==
[2019-12-14] VITALS (11 sets, daily range): BP systolic 92–123; BP diastolic 55–82; PULSE 60–92; RESP 15–23; TEMP 36.4–36.9; O2SAT 92–99; BMI 34.6; BMI 34.4
--- NOTE | 2019-12-14 12:08 | ED.VISSUMM ---
- ER Visit Summary Date of Service: 12/14/19 Chief Complaint: Reported intentional overdose of Flexeril History of Present Illness: The patient is a 34 F past medical history of type 2 diabetes, degenerative disc disease, depression and hydro-forms have been fever. Patient states she is not having back pain and took 20 Flexeril to relax the muscles. Difficult to ascertain an accurate history right now because she is lethargic but arousable. Physical Examination: Young female vital signs stable. She is afebrile. She does not look septic or toxic. She is sedated but arousable. At times she will wake up and sit up. Vital signs are stable and afebrile. H EENT exam atraumatic. Pupils are reactive light. Her eyes are closed but she will open them. Is no signs of facial trauma or head injury. Moist membranes. Neck nontender. No lymphadenopathy. No meningismus. Currently she is able to handle her own secretions. Lungs clear to auscultation bilaterally. Heart regular rate and rhythm no murmur rate about 70. Abdomen soft nontender normal bowel sounds no peritoneal signs. Patient moving all 4 extremities. No edema. Multiple tattoos. No rashes. Back nontender. Neurologically she is subdued and sedated from the meds but she will wake up open her eyes and answer questions. She seems intoxicated on the medication. But I do not smell any alcohol. Test Results: CBC CBC is a white count of 14.4. Hemoglobin 9 which is her baseline chronic anemia. Chemistries normal gap of 6. BUN 11 creatinine 1 blood sugar elevated 324. Serum test negative. Tox screen is positive for amphetamines, methamphetamines and cannabis. Tylenol level is negative. Alcohol level is negative. Emergency Department Course and Treatment: Patient overdosed on Flexeril. Treatment Plan: Repeat exam the patient is doing well at 1433. I will speak to the hospitalist about admission for observation and an psychiatric consultation for possible placement Disposition: Admission Impression: Acute overdose on Flexeril History of bipolar disorder This note was generated with [employer] dictation software. It may contain incorrect words, spelling, and punctuation that were not noted in review of the chart prior to signing ED Disposition - Plan for ED Patient: Referrals: Aj Staley MD [Primary Care Provider] -
[2019-12-14 12:10] LABS: Bedside Glucose 315 mg/dL (70-110)
[2019-12-14 12:42] LABS: Absolute Lymphocyte Count 3.62 X10^3/uL (0.83-4.51); Absolute Neutrophil Count 9.1 X10^3/uL (2.0-7.7); Basophil% 0.7 % (0-1); Eosinophil# 0.55 X10^3/uL; Eosinophils% 3.8 % (0-5); Hematocrit 28.2 % (37-47); Hemoglobin 9.1 g/dL (12.0-15.0); Lymphocyte # 3.62 X10^3/ul (4.0); Lymphocyte % 25.1 % (19-41); Mean Corp Hgb Conc 32.3 g/dL (32-36); Mean Corpuscular Hgb 30.1 pg (27.0-32.0); Mean Corpuscular Volume 93.4 fL (81-99); Monocyte# 0.91 X10^3/uL; Monocyte% 6.3 % (0-10); NRBC Flagged by Analyzer 0 % (0-5); Neutrophil # 9.14 X10^3/uL (2.7-7.7); Neutrophil % 63.3 % (47-70); Platelet Count 409 K/mm3 (150-450); RBC Distribution Width CV 15.7 % (11.6-14.6); RBC Distribution Width SD 51.7 fl (35.1-43.9); Red Blood Count 3.02 M/mm3 (4.2-5.4); White Blood Count 14.4 K/mm3 (4.4-11.0)
[2019-12-14 12:50] LABS: Internal QC Validated? YES +Cl - CLEAR BKGD; Pregnancy, Serum, hCG Quali. NEGATIVE Negative
[2019-12-14 12:59] LABS: Anion Gap 6 (5-15); BUN 11 mg/dL (7-18); BUN/Creat Ratio 10.5 RATIO (10-20); Calcium,Total 9.3 mg/dL (8.5-10.1); Chloride 105 mmol/L (98-107); Creatinine, Serum 1.05 mg/dL (0.55-1.02); EST Glomerular Filtration Rate 63 mL/min (>60); Est Glom Filt Rate - Afr Amer 77 mL/min (>60); Estimated Creatinine Clearance 72.72 ml/min; Glucose 324 mg/dL (74-106); Potassium 3.7 mmol/L (3.5-5.1); Sodium Level 136 mmol/L (136-145)
[2019-12-14 13:28] LABS: Acetaminophen (Tylenol) Level < 2.0 ug/mL (10.0-30.0); Alcohol, Blood (Medical)-Serum < 3.0 mg/dL
[2019-12-14 14:04] LABS: Amphetamine Urine VISTA POSITIVE (<1000 ng/mL); Barbiturate Urine VISTA NEGATIVE (< 200 ng/mL); Benzodiazepine Urine VISTA POSITIVE (< 200 ng/mL); Cocaine Urine VISTA NEGATIVE (< 300 ng/mL); Ecstacy Urine VISTA POSITIVE (< 500 ng/mL); Methadone Urine VISTA NEGATIVE (< 300 ng/mL); PCP Urine VISTA NEGATIVE (< 25 ng/mL); THC Urine VISTA POSITIVE (< 50 ng/mL); Vista UDS pH Range 5
--- NOTE | 2019-12-14 15:19 | HP.PCM_ITS ---
Problem List (1) OD (overdose of drug) Status: Acute Qualifiers: Encounter type: initial encounter Comment: Flexeril (2) Normochromic normocytic anemia Status: Chronic Comment: unknown etiology (3) Leukocytosis Status: Acute Comment: no evidence of infection, afebrile (4) Dehydration Status: Acute (5) Substance abuse Status: Chronic (6) Depression Status: Chronic (7) Suicide gesture Status: Acute (8) Hypertension Status: Chronic (9) JOAN (generalized anxiety disorder) Status: Chronic (10) Borderline personality disorder Status: Chronic Comment: not sure this is correct.......she has BPD listed as well (11) Branchial cleft sinus Status: Chronic (12) Diabetes mellitus type 2, uncontrolled Status: Chronic (13) Chronic neck pain Status: Chronic (14) Bilateral carpal tunnel syndrome Status: Chronic Comment: worse on left (15) Hidradenitis suppurativa Status: Chronic Comment: Painful recurrent right axillary hidradenitis 6 mm hidradenitis right posterior earlobe 4 cm recurrent hidradenitis posterior neck and occipital scalp (16) History of section Status: Chronic (17) History of tonsillectomy Status: Chronic (18) Morbid obesity Status: Chronic (19) Bipolar affective Status: Chronic (20) Osteoarthritis Status: Chronic (21) Chronic back pain Status: Chronic (22) Smoker Status: Chronic Comment: F17.200 (23) H/O hidradenitis suppurativa Status: Chronic Comment: Z87.2 History of Present Illness Date of Admission: 12/14/19 Chief Complaint: Patient presented to the emergency room by squad stating she had taken 20 Flexeril and smoked some meth. The patient is a 34 year old F with a past medical history of bipolar disorder (per the pt....old charts say anxiety/depression and borderline personality disorder) , suicide attempts, hypertension, hidradenitis suppurativa requiring skin grafts, diabetes mellitus type 2, morbid obesity, chronic neck pain, tobacco dependence, chronic back pain who presented to the emergency department at [facility] on 12/14/2019 by felisha stating that she had taken 20 Flexeril and smoked some meth. She was recently admitted to the hospital on 11/26/19 and discharged home on 11/28/19 to follow up at the [facility]. She missed her appt at 180. She was last seen at the counseling center approximately 1-1/2 weeks ago. When I asked her if she was suicidal she initially told me she did not know and then she denied any suicidal ideation. She tells me she is tired of this and wants to change her life. She tells me she took the Flexeril this morning because she wanted to get out of a situation. Vital signs at presentation to the emergency room were temperature 97.8, pulse rate 71, blood pressure 123/82, respiratory rate 15 and she was 98% saturated on a 2 L nasal cannula. All lab was personally reviewed. The white blood cell count is elevated at 14.4 with a normal differential. Hemoglobin is low at 9.1 with an MCV of 93.4 and an increased RDW of 51.7. BMP was remarkable for a mildly increased creatinine at 1.05, more likely than not secondary to dehydration. Random blood sugar was 324. Hemoglobin A1c in September 2019 was 7.4%. Urine drug screen is positive for amphetamines, methamphetamine, benzodiazepines and cannabinoids. Ethyl alcohol was less than 3.0. She is being admitted to the hospital for observation. Will place in suicide precautions and have her evaluated by crisis in the AM. Past Medical History Past Medical History (Chronic Problems): Chronic Problems (Last Reviewed 12/14/19 @ 15:25 by Sushila Vegas DO) Normochromic normocytic anemia (Chronic) unknown etiology Substance abuse (Chronic) Depression (Chronic) Hypertension (Chronic) JOAN (generalized anxiety disorder) (Chronic) Borderline personality disorder (Chronic) not sure this is correct.......she has BPD listed as well Branchial cleft sinus (Chronic) Diabetes mellitus type 2, uncontrolled (Chronic) Chronic neck pain (Chronic) Bilateral carpal tunnel syndrome (Chronic) worse on left Hidradenitis suppurativa (Chronic) Painful recurrent right axillary hidradenitis 6 mm hidradenitis right posterior earlobe 4 cm recurrent hidradenitis posterior neck and occipital scalp History of section (Chronic) History of tonsillectomy (Chronic) Morbid obesity (Chronic) Bipolar affective (Chronic) Osteoarthritis (Chronic) Chronic back pain (Chronic) Smoker (Chronic) F17.200 H/O hidradenitis suppurativa (Chronic) Z87.2 Medical History: Medical History (Last Reviewed 12/14/19 @ 15:25 by COLE Osborne Muscle spasms of neck (Inactive) M62.838 Cellulitis of right hand (Inactive) L03.113 Abscess of dorsum of right hand (Inactive) L02.511 cat scratch bite abscess dorsum right hand by first web space Morbid obesity (Chronic) E66.01 Bipolar affective (Chronic) F31.9 Osteoarthritis (Chronic) Chronic back pain (Chronic) M54.9, G89.29 Diabetic leg ulcer (Inactive) E11.622, L97.909 nonhealing diabetic ulcer right medial leg - E11.622 Non-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 fat layer exposed (Inactive) L97.912 diabetic ulcer right medial leg - L97.912 H/O hidradenitis suppurativa (Chronic) Z87.2 Z87.2 Alcohol abuse F10.10 Anxiety and depression F41.9, F32.9 Asthma J45.909 Drug abuse F19.10 GERD (gastroesophageal reflux disease) K21.9 Hidradenitis L73.2 LEFT INGUINAL, RIGHT AXILLARY, POSTERIOR NECK, Hyperlipidemia E78.5 Neuropathy G62.9 Non-healing surgical wound T81.89XA NON HEALING HIDRADENITIS WOUND POSTERIOR NECK. NON HEALING INFECTED HIDRADENITIS ULCER POSTERIOR NECK Osteoarthritis M19.90 HTN (hypertension) I10 Abscess of breast (Resolved) N61.1 abscess right medial breast Abscess of sternal region (Resolved) L02.213 L02.213 Sternal chest wall wound abscess Cat bite (Resolved) W55.01XA cat scratch bite abscess dorsum right hand by first web space Cat bite of right hand with infection (Resolved) S61.451A, L08.9, W55.01XA cat scratch bite abscess dorsum right hand by first web space Cat scratch (Resolved) W55.03XA cat scratch infection dorsum right hand with extension to long finger cat scratch infection dorsum left hand at proximal index finger Cat scratch of left hand with infection (Resolved) S60.512A, L08.9, W55.03XA cat scratch infection dorsum left hand at proximal index finger Cat scratch of right hand with infection (Resolved) S60.511A, L08.9, W55.03XA cat scratch infection dorsum right hand with extension to long finger Open wound of chest wall, complicated (Resolved) S21.109A S21.109D open chest wall sternal wound Open wound of left axillary region (Resolved) S41.102A open surgical hidradenitis wound left axilla - S41.102A Skin graft failure (Inactive) T86.821 compromised skin graft left axilla Allergies lamotrigine [From Lamictal] Allergy (Mild, Verified 11/26/19 19:41) Rash adhesive tape Allergy (Verified 11/26/19 19:41) Rash Home Medications: Ambulatory Orders Medication Instructions Recorded Duloxetine Hcl [Cymbalta] 60 mg PO DAILY 01/18/14 glipiZIDE [Glucotrol] 10 mg PO DAILY@0730 01/18/14 metFORMIN HCl [Glucophage] 1,000 mg PO BIDCM 01/18/14 Spironolactone [Aldactone] 100 mg PO DAILY 01/14/16 Lubiprostone [Amitiza] 24 mcg PO BID 01/16/18 Omeprazole [Prilosec] 20 mg PO DAILY 01/16/18 Atorvastatin Calcium 20 mg PO QHS 06/21/18 Buspirone HCl 20 mg PO TID 06/30/18 Olanzapine 20 mg PO QHS 10/29/19 Glipizide 5 mg PO DINNER 11/27/19 Clonidine HCl 0.1 mg PO DAILY 12/14/19 Duloxetine HCl [Cymbalta] 30 mg PO DAILY 12/14/19 Fluticasone Propionate [Flovent 1 puff INHALATION BID 12/14/19 Hfa] Folic Acid 1 mg PO DAILY 12/14/19 Hydroxyzine Pamoate 100 mg PO TID PRN PRN 12/14/19 Insulin Aspart [Novolog Flexpen 4 units SUBCUT ACHS 12/14/19 ([facility] Surgical History: Surgical History (Last Reviewed 12/14/19 @ 15:25 by Sushila Vegas DO) History of section (Chronic) Z98.891 History of tonsillectomy (Chronic) Z98.890, Z90.89 H/O neck surgery Z98.890 History of axillary surgery Z98.890 [place] teeth removed K08.499 Surgical History: tonsillectomy, - - Excisional debridement hydradenitis right axilla, C section Psychiatric History: Anxiety, Bipolar, Depression, Prior suicide attempt [employer]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 she has a 12 YO dtr who lives with the father. Smoking Status: Current every day smoker Tobacco Use: Cigarettes - 1 to 1-1/2 packs/day Alcohol: Heavy - started drinking at the age of 10 Drugs: - - Barbiturates, methamphetamine, marijuana, - *Family History Maternal Family History: Family History (Last Reviewed 12/14/19 @ 15:28 by Sushila Vegas DO) Grandmother Thyroid disorder Father Diabetes Heart disease Hypertension High cholesterol Mother Heart disease Hypertension High cholesterol History Items: Heart Disease, Hypertension Paternal Family History: Family History (Last Reviewed 12/14/19 @ 15:28 by Sushila Vegas DO) Grandmother Thyroid disorder Father Diabetes Heart disease Hypertension High cholesterol Mother Heart disease Hypertension High cholesterol History Items: Diabetes, Heart Disease, Hypertension Review of Systems Constitutional: Reports: Malaise. Denies: Chills, Fever, Weight Change Eyes: Denies: Blurred vision HEENT: Reports: Sore Throat. Denies: Head Aches, Sinus Congestion, Sinus Drainage Cardiovascular: Denies: Chest Pain, Chest Pressure, Chest Tightness, Light Headedness, Palpitations Respiratory: Denies: Cough, Shortness of breath at rest, Sputum production Gastrointestinal: Denies: Abdominal Pain, Diarrhea, Nausea, Vomiting Genitourinary: Denies: Dysuria Musculoskeletal: Reports: Back Pain. Denies: Joint Pain, Joint Tenderness Skin: Denies: Rash, Wounds Neurological: Denies: Numbness, Tingling, Focal weakness Psychiatric: Reports: Anxiety, Depression, Suicidal Ideations - maybe. Denies: Homicidal Ideations Endocrine: Denies: Change in Body Habitus Hematologic/ Lymphatic: Denies: Easy Bruising, Easy Bleeding, Hx of blood clot VTE Information - Inpt Only VTE Present on Admission: No VTE Mechan Device Prophylaxis: Knee High CRISTIAN Hose VTE Pharm Prophylaxis ordered?: Yes Patient Problems: Active and Suspected Problems (Last Reviewed 12/14/19 @ 15:25 by Sushila Vegas DO) OD (overdose of drug) (Acute) Flexeril Leukocytosis (Acute) no evidence of infection, afebrile Dehydration (Acute) - Physical Exam Vitals/I&O's: Vital Signs Temp Pulse Resp BP Pulse Ox 97.8 F 67 20 H 105/65 98 12/14/19 12:00 12/14/19 15:12 12/14/19 15:12 12/14/19 15:12 12/14/19 15:12 Oxygen Flow Rate (L/min) 4 Oxygen Delivery Method Nasal Cannula Weight: 220 lb 14.451 oz Body Mass Index (BMI) 34.6 Finger Stick Blood Glucose 315 General: Well developed, Well nourished, Lethargic, - - drowsy but starting to wake up HEENT: Atraumatic, PERRLA, EOMI, Normocephalic, - - no pharyngeal exudate no cervical nodes Oral: No Gingival or Mucosal Lesions/ Ulcerations, Dry Mucosa Neck: Supple, No JVD, No Nodes, Trachea Midline Lungs: No rhonchi Cardiovascular: Regular rate, Regular Rhythm, Normal S1, Normal S2, No murmurs Abdomen: Bowel Sounds Present, Soft, Non Tender, Non-Distended, Obese, - - no guarding with palpation Extremities: No clubbing, No cyanosis, No edema, Capillary Refill Less than 3 Seconds Skin: No rashes, No breakdown, - - many old scars Musculoskeletal: No Muscle Wasting Neurological: Cranial nerves II-XII grossly intact, Neuro grossly intact Psych/Mental Status: Appropriate, Flat Affect, Depressed Laboratory Results 12/14/19 12:06: POC Glucose 315 H 12/14/19 12:30: WBC 14.4 H, RBC 3.02 L, Hgb 9.1 L, Hct 28.2 L, MCV 93.4, MCH 30.1, MCHC 32.3, RDW Std Deviation 51.7 H, RDW Coeff of Radha 15.7 H, Plt Count 409, MPV 9.0, Immature Gran % (Auto) 0.800, Neut % (Auto) 63.3, Lymph % (Auto) 25.1, [place] % (Auto) 6.3, Eos % (Auto) 3.8, Baso % (Auto) 0.7, Absolute Neuts (auto) 9.1 H, Absolute Lymphs (auto) 3.62, Nucleated RBC % 0 12/14/19 12:30: Sodium 136, Potassium 3.7, Chloride 105, Carbon Dioxide 25.0, Anion Gap 6, BUN 11, Creatinine 1.05 H, Estim Creat Clear Calc 72.72, Est GFR (MDRD) Af Amer 77, Est GFR (MDRD) Non-Af 63, BUN/Creatinine Ratio 10.5, Glucose 324 H, Calcium 9.3 12/14/19 12:30: Acetaminophen < 2.0 L, Ethyl Alcohol < 3.0 12/14/19 12:30: Serum , Qual NEGATIVE 12/14/19 13:40: Urine Opiates Screen NEGATIVE, Urine Methadone Screen NEGATIVE, Ur Barbiturates Screen NEGATIVE, Ur Phencyclidine Scrn NEGATIVE, Ur Amphetamines Screen POSITIVE H, U Methamphetamin-MDMA POSITIVE H, U Benzodiazepines Scrn POSITIVE H, Urine Cocaine Screen NEGATIVE, U Cannabinoids Screen POSITIVE H, Ur Drug Screen Comment Assessment/Plan All Active Problems (Last Reviewed 12/14/19 @ 15:25 by Sushila Vegas DO) OD (overdose of drug) (Acute) Leukocytosis (Acute) Dehydration (Acute) Suicide gesture (Acute) Abscess of breast (Resolved) Abscess of neck (Resolved) Abscess of sternal region (Resolved) Acute kidney injury (Resolved) Cat bite (Resolved) Cat bite of right hand with infection (Resolved) Cat scratch (Resolved) Cat scratch of left hand with infection (Resolved) Cat scratch of right hand with infection (Resolved) History of incision and drainage (Resolved) [place] toxicity (Resolved) Necrotizing soft tissue infection (Resolved) Non-pressure chronic ulcer of skin of other sites with fat layer exposed (Resolved) Open wound involving head with neck, complicated (Resolved) Open wound of chest wall, complicated (Resolved) Open wound of left axillary region (Resolved) Open wound of right axillary region with complication (Resolved) Unspecified open wound of unspecified part of head, subsequent encounter (Resolved) Unspecified open wound of unspecified part of neck, subsequent encounter (Resolved) Impressions 1. Drug OD......does not know if this was a suicide attempt or not. She repo rtedly took 20 Flexeril which in my opinion constitutes a suicidal gesture. Multiple admissions for suicide attempts, drug OD's, polysubstance abuse in the past. Admitted to PCU for observation with suicide precautions. Consult crisis intervention for eval in the AM. No pink slip unless she attempts to leave. 2. Bipolar disorder vs Borderline personality disorder? Will obtain the problem list from the [facility] and her current med list. 3. Normochromic normocytic anemia. B12, folate, iron studies ordered. 4. Elevated creatinine-suspect secondary to dehydration. 5. Polysubstance abuse 6. Diabetes mellitus type 2 with a hemoglobin A1c of 6.9% - not what I expected so she must be at least somewhat compliant with diet and medication. 7. Tobacco dependence 8. History of hydradenitis suppurativa 9. Morbid obesity 10. Acute exacerbation of asthma-prednisone 40 mg daily, aerosolized bronchodilators, incentive spirometry DVT prophylaxis with enoxaparin 40 mg subcu daily Smoking cessation counseling given and the patient was started on a nicotine patch Consult crisis intervention in the a.m. when she is more alert and the Flexeril has worn off She was referred to 180 on her last admission earlier in November and failed to show up for her appointment Obtained Dr. Haile's notes form the [facility]......I suspect she is borderline consult DC planning. Pt states she is homeless. Code Visit OBSV E&M: 70149 Initial observation care L3
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
[2019-12-14 16:42] LABS: Vitamin B12 273 pg/mL (211-911)
[2019-12-14 17:02] LABS: Hemoglobin A1c 6.9 % (4.2-6.3)
[2019-12-14] MEDS: 0.9% Normal Saline 1,000 ML 100 ML IV (17:22)
[2019-12-14 17:24] LABS: Ferritin 155 ng/mL (8-252); Iron 64 ug/dL (50-170); Iron Binding Capacity,Total 303 ug/dL (250-450); Magnesium 1.7 mg/dL (1.6-2.6); PERCENT IRON SATURATION 21.1 % (15.0-55.0)
[2019-12-14] MEDS: predniSONE 20 MG Tablet 40 MG PO (17:30)
[2019-12-14] MEDS: Insulin Lispro 100 UNIT/ML INSULN.PEN SC ×2 (17:30→21:56)
[2019-12-14] MEDS: glipiZIDE 10 MG Tablet PO (17:34)
[2019-12-14] MEDS: metFORMIN HCl 1,000 MG Tablet 1000 MG PO (17:34)
[2019-12-14 17:40] LABS: Bedside Glucose 166 mg/dL (70-110)
[2019-12-14] MEDS: Ipratropium/Albuterol Sulfate 3 ML AMPUL.NEB INHALATION (19:54)
[2019-12-14] MEDS: OLANZapine 10 MG Tablet 20 MG PO (21:55)
[2019-12-14] MEDS: busPIRone 15 MG TABLET PO (21:55)
[2019-12-14] MEDS: Atorvastatin Calcium 20 MG Tablet PO (21:55)
[2019-12-14] MEDS: busPIRone 5 MG Tablet PO (21:55)
[2019-12-15] VITALS (14 sets, daily range): BP systolic 108–125; BP diastolic 60–76; PULSE 81–100; RESP 14–20; TEMP 36.7–37.2; O2SAT 89–95
[2019-12-15 00:35] LABS: Bedside Glucose 227 mg/dL (70-110)
[2019-12-15] MEDS: 0.9% Normal Saline 1,000 ML 100 ML IV (02:07)
[2019-12-15] MEDS: busPIRone 5 MG Tablet PO ×3 (06:31→21:57)
[2019-12-15] MEDS: busPIRone 15 MG TABLET PO ×3 (06:31→21:57)
[2019-12-15 06:40] LABS: Absolute Lymphocyte Count 1.97 X10^3/uL (0.83-4.51); Absolute Neutrophil Count 7.9 X10^3/uL (2.0-7.7); Basophil# 0.04 X10^3/uL; Basophil% 0.4 % (0-1); Eosinophil# 0.03 X10^3/uL; Eosinophils% 0.3 % (0-5); Hematocrit 29.3 % (37-47); Hemoglobin 9.1 g/dL (12.0-15.0); Lymphocyte # 1.97 X10^3/ul (4.0); Lymphocyte % 18.8 % (19-41); Mean Corp Hgb Conc 31.1 g/dL (32-36); Mean Corpuscular Hgb 28.9 pg (27.0-32.0); Mean Platelet Vol. 8.9 fl (6.2-12.0); Monocyte# 0.43 X10^3/uL; Monocyte% 4.1 % (0-10); NRBC Flagged by Analyzer 0 % (0-5); Neutrophil % 75.5 % (47-70); Platelet Count 408 K/mm3 (150-450); RBC Distribution Width CV 16.5 % (11.6-14.6); RBC Distribution Width SD 53.2 fl (35.1-43.9); Red Blood Count 3.15 M/mm3 (4.2-5.4); White Blood Count 10.5 K/mm3 (4.4-11.0)
[2019-12-15 06:40] LABS: Bedside Glucose 148 mg/dL (70-110)
[2019-12-15 07:10] LABS: AST(SGOT) 14 U/L (15-37); Alanine Aminotransfer ALT/SGPT 23 U/L (13-56); Albumin, Serum 3.3 g/dL (3.2-5.0); Alkaline Phosphatase 66 U/L (45-117); Anion Gap 7 (5-15); BUN 8 mg/dL (7-18); BUN/Creat Ratio 11.4 RATIO (10-20); Calcium,Total 8.5 mg/dL (8.5-10.1); Chloride 111 mmol/L (98-107); Cholesterol 95 mg/dL (200); EST Glomerular Filtration Rate 101 mL/min (>60); Est Glom Filt Rate - Afr Amer 122 mL/min (>60); Estimated Creatinine Clearance 100.94 ml/min; Globulin 3.2 g/dL (2.2-4.2); Glucose 160 mg/dL (74-106); High Density Lipoprotein 39 mg/dL; Potassium 3.7 mmol/L (3.5-5.1); Protein, Total 6.5 g/dL (6.4-8.2); Sodium Level 140 mmol/L (136-145); Triglycerides 75 mg/dL; Very Low Density Lipoprotein 15 mg/dL (5-40)
[2019-12-15] MEDS: Ipratropium/Albuterol Sulfate 3 ML AMPUL.NEB INHALATION ×2 (07:21→18:49)
[2019-12-15] MEDS: Folic Acid 1 MG Tablet PO (08:39)
[2019-12-15] MEDS: metFORMIN HCl 1,000 MG Tablet 1000 MG PO ×2 (08:39→16:44)
[2019-12-15] MEDS: glipiZIDE 10 MG Tablet PO ×2 (08:39→16:43)
[2019-12-15] MEDS: predniSONE 20 MG Tablet 40 MG PO (08:42)
[2019-12-15] MEDS: Pantoprazole Sodium 20 MG Tablet PO (10:00)
[2019-12-15] MEDS: cloNIDine HCl 0.1 MG Tablet PO (10:01)
[2019-12-15] MEDS: DULoxetine Hcl 60 MG Capsule PO (10:01)
[2019-12-15] MEDS: Spironolactone 50 MG Tablet 100 MG PO (10:01)
[2019-12-15] MEDS: DULoxetine Hcl 30 MG Capsule PO (10:01)
[2019-12-15] MEDS: Enoxaparin 40 MG/0.4 ML Syringe SC (10:03)
[2019-12-15] MEDS: Insulin Lispro 100 UNIT/ML INSULN.PEN SC ×2 (11:36→16:40)
[2019-12-15 11:45] LABS: Bedside Glucose 208 mg/dL (70-110)
--- NOTE | 2019-12-15 11:56 | DCINST_ITS ---
- Discharge Diagnoses Current Active Problems: Current Active and Chronic Problems (Last Reviewed 12/14/19 @ 15:25 by Sushila Vegas DO) OD (overdose of drug) (Acute) Flexeril Normochromic normocytic anemia (Chronic) unknown etiology Leukocytosis (Acute) no evidence of infection, afebrile Dehydration (Acute) You will use the following diet at home:: Cardiac Your food should be the consistency of: Regular Your liquids should be the consistency of: Regular/Thin Discharge Activity: Return to Normal Activity Allergies/Adverse Reactions: Allergies lamotrigine [From Lamictal] Allergy (Mild, Verified 11/26/19 19:41) Rash adhesive tape Allergy (Verified 11/26/19 19:41) Rash Medications to take at Discharge Duloxetine Hcl [Cymbalta] 60 mg PO DAILY 01/18/14 glipiZIDE [Glucotrol] 10 mg PO DAILY@0730 01/18/14 metFORMIN HCl [Glucophage] 1,000 mg PO BIDCM 01/18/14 Spironolactone [Aldactone] 100 mg PO DAILY 01/14/16 Lubiprostone [Amitiza] 24 mcg PO BID 01/16/18 Omeprazole [Prilosec] 20 mg PO DAILY 01/16/18 Atorvastatin Calcium 20 mg PO QHS 06/21/18 Buspirone HCl 20 mg PO TID 06/30/18 Olanzapine 20 mg PO QHS 10/29/19 Glipizide 5 mg PO DINNER 11/27/19 Clonidine HCl 0.1 mg PO DAILY 12/14/19 Duloxetine HCl [Cymbalta] 30 mg PO DAILY 12/14/19 Fluticasone Propionate [Flovent Hfa] 1 puff INHALATION BID 12/14/19 Folic Acid 1 mg PO DAILY 12/14/19 Hydroxyzine Pamoate 100 mg PO TID PRN PRN 12/14/19 Insulin Aspart [Novolog Flexpen] 4 units SUBCUT ACHS 12/14/19 Acetaminophen [Tylenol Tablet] 650 mg PO Q6H PRN PRN tablet 12/15/19 Albuterol Aerosols [Ventolin Aerosols] 2.5 mg INHALATION Q2H PRN PRN vial.neb. 12/15/19 Ipratropium/Albuterol Sulfate [Duoneb] 3 ml INHALATION Q6H.RT ampul.neb 12/15/19 Melatonin 3 mg PO QHS PRN PRN tablet 12/15/19 predniSONE tablet 40 mg PO DAILY@0800 #8 tablet 12/15/19 The following prescriptions were given: predniSONE tablet 40 mg PO DAILY@0800 #8 tablet Primary Care Physician: Aj Staley MD [Primary Care Provider] - Please follow up with your Primary Care Physician in: 1-2 weeks Test Results: Test results from this visit will be discussed in further detail at your follow- up appointment, if applicable. Please Follow Up With: Psychiatry When: as directed Proposed Discharge Date: 12/15/19
--- NOTE | 2019-12-15 13:45 | CASEMGMT ---
SOCIAL WORK FOLLOW UP WITH PATIENT FROM ASSESSMENT IN EMERGENCY DEPARTMENT LAST EVENING. PATIENT KNOWN TO THIS WORKER. PATIENT WITH 1:[address]. PATIENT STATES SPOKE WITH HILDA FROM CRISIS AND PLAN IS TRANSFER TO INPATIENT PSYCH. PATIENT PROVIDED WITH RESOURCE FOLDER FOR SUBSTANCE ABUSE ISSUES AND ENCOURAGED FOLLOW UP AFTER D/C FROM INPATIENT PSYCH. PATIENT STATES LAST USE OF METH WAS YESTERDAY, 12/14/19. PATIENT STATES HAS BEEN SET UP WITH [facility] IN THE PAST AND ADMITS TO NEED FOR FOLLOW UP. CALL TO HILDA WITH CRISIS. PER HILDA, REFERRAL HAS BEEN MADE TO [facility], AWAITING ACCEPTANCE. Estela GUERRA, LEAD TECHNICAL ARCHITECT, BIODIESEL PRODUCT MANAGER.
--- NOTE | 2019-12-15 14:30 | PCM.PN.HOSP ---
<Kishan Sneed - Last Filed: 12/15/19 14:30> Patient Problems: Active and Suspected Problems (Last Reviewed 12/14/19 @ 15:25 by Sushila Vegas DO) OD (overdose of drug) (Acute) Flexeril Leukocytosis (Acute) no evidence of infection, afebrile Dehydration (Acute) Reason for Visit: Overdose Subjective: Patient states that she purposely took excessive amounts of muscle relaxers as she was trying to force herself to come down off of her high from methamphetamines. She does not use any intravenous drugs, she insists she only smokes meth. She also smokes cigarettes. She is somewhat short of breath and wheezy. She does not require oxygen currently. She does have a history of asthma. She has no chest pain, pressure, tightness. No lightheadedness or dizziness. She actively states that she wants to get help for mental health problems. For 5 to 7 days she had stopped taking her psychiatric medications and admitted using meth and not sleeping at all. Vitals/I&O's: Vital Signs Temp Pulse Resp BP Pulse Ox 98.1 F 96 18 125/76 H 92 12/15/19 09:55 12/15/19 11:00 12/15/19 09:55 12/15/19 09:55 12/15/19 14:03 Oxygen Flow Rate (L/min) 4 Oxygen Delivery Method Room Air Weight: 207 lb Body Mass Index (BMI) 34.4 Finger Stick Blood Glucose 315 Intake and Output for Last 24 Hours 12/13/19 12/14/19 12/15/19 23:59 23:59 23:59 Intake Total 330 / 330 2355 / 2355 Output Total Balance 330 / 330 2354 / 2354 General: Alert, Oriented x3, Cooperative HEENT: Atraumatic, PERRLA, EOMI, Normocephalic Neck: Supple, No JVD, Negative Carotid Bruits Lungs: Normal air movement, No wheeze Cardiovascular: Regular rate, No murmurs Abdomen: Bowel Sounds Present, Soft, Non Tender Extremities: No edema, Capillary Refill Less than 3 Seconds Skin: No rashes, No breakdown Musculoskeletal: No Tenderness to Palpation of Joints or Extremities Neurological: Cranial nerves II-XII grossly intact Psych/Mental Status: Normal Affect, Appropriate, Alert and oriented to time, place, person, mood and affect Laboratory Results 12/14/19 12:30: Magnesium 1.7, Iron 64, TIBC 303, Iron Saturation 21.1, Ferritin 155, Folate 65.30 H 12/14/19 12:30: Hemoglobin A1c 6.9 H 12/14/19 12:30: Hepatitis A IgM Ab Pending, Hepatitis A Ab Total Pending, Hep Bs Antigen Pending, Hep B Core Total Ab Pending, Hep B Core IgM Ab Pending 12/14/19 12:30: Vitamin B12 273 12/14/19 17:26: POC Glucose 166 H 12/14/19 21:53: POC Glucose 227 H 12/15/19 06:20: WBC 10.5, RBC 3.15 L, Hgb 9.1 L, Hct 29.3 L, MCV 93.0, MCH 28.9, MCHC 31.1 L, RDW Std Deviation 53.2 H, RDW Coeff of Radha 16.5 H, Plt Count 408, MPV 8.9, Immature Gran % (Auto) 0.900, Neut % (Auto) 75.5 H, Lymph % (Auto) 18.8 L, [place] % (Auto) 4.1, Eos % (Auto) 0.3, Baso % (Auto) 0.4, Absolute Neuts (auto) 7.9 H, Absolute Lymphs (auto) 1.97, Nucleated RBC % 0 12/15/19 06:20: Sodium 140, Potassium 3.7, Chloride 111 H, Carbon Dioxide 22.0, Anion Gap 7, BUN 8, Creatinine 0.70, Estim Creat Clear Calc 100.94, Est GFR (MDRD) Af Amer 122, Est GFR (MDRD) Non-Af 101, BUN/Creatinine Ratio 11.4, Glucose 160 H, Calcium 8.5, Total Bilirubin 0.70, AST 14 L, ALT 23, Alkaline Phosphatase 66, Total Protein 6.5, Albumin 3.3, Globulin 3.2, Albumin/Globulin Ratio 1.0, Triglycerides 75, Cholesterol 95, LDL Cholesterol 41, VLDL Cholesterol 15, HDL Cholesterol 39 L 12/15/19 06:27: POC Glucose 148 H 12/15/19 11:29: POC Glucose 208 H Current Medications Acetaminophen (Tylenol) 650 mg PO Q6H PRN PRN PRN Reason: Pain Score 1-10/Temp > 100.7 F Albuterol Sulfate (Ventolin Aerosols) 2.5 mg INHALATION Q2H PRN PRN PRN Reason: SOB/Wheezing Albuterol/Ipratropium (Duoneb) 3 ml INHALATION Q6H.RT [facility] Last Admin: 12/15/19 07:21 Dose: 3 ml Documented by: Atorvastatin Calcium (Lipitor) 20 mg PO QHS [facility] Last Admin: 12/14/19 21:55 Dose: 20 mg Documented by: Bisacodyl (Dulcolax) 5 mg PO DAILY PRN PRN PRN Reason: Constipation Buspirone HCl (Buspar) 5 mg PO TID [facility] Last Admin: 12/15/19 14:02 Dose: 5 mg Documented by: Buspirone HCl (Buspar) 15 mg PO TID [facility] Last Admin: 12/15/19 14:02 Dose: 15 mg Documented by: Clonidine (Catapres) 0.1 mg PO DAILY [facility] Last Admin: 12/15/19 10:01 Dose: 0.1 mg Documented by: Dextrose (D50w Syringe) 0 gm IV X1 PRN; Protocol PRN Reason: Hypoglycemia Duloxetine HCl (Cymbalta) 30 mg PO DAILY [facility] Last Admin: 12/15/19 10:01 Dose: 30 mg Documented by: Duloxetine HCl (Cymbalta) 60 mg PO DAILY [facility] Last Admin: 12/15/19 10:01 Dose: 60 mg Documented by: Enoxaparin Sodium (Lovenox) 40 mg SC DAILY [facility] Last Admin: 12/15/19 10:03 Dose: 40 mg Documented by: [facility] Admin: 12/15/19 08:39 Dose: 1 mg Documented by: [facility]) [facility] Last Admin: 12/15/19 08:39 Dose: 10 mg Documented by: Glucagon () 1 mg IM .X1 PRN PRN Reason: Hypoglycemia Insulin Human Lispro (Humalog Kwikpen (Bkc)) 0 unit SC ACHS [facility]; Protocol Last Admin: 12/15/19 11:36 Dose: 2 u Documented by: Magnesium Hydroxide (Milk Of Magnesia) 30 ml PO DAILY PRN PRN PRN Reason: Constipation Melatonin (Melatonin) 3 mg PO QHS PRN PRN PRN Reason: INSOMNIA Metformin HCl (Glucophage) 1,000 mg PO BIDCM [facility] Last Admin: 12/15/19 08:39 Dose: 1,000 mg Documented by: Nicotine (Nicoderm Cq (Pbkc)) 21 mg TRANSDERM. DAILY [facility] Last Admin: 12/15/19 10:10 Dose: 21 mg Documented by: Olanzapine (Zyprexa) 20 mg PO QHS [facility] Last Admin: 12/14/19 21:55 Dose: 20 mg Documented by: Ondansetron HCl (Zofran) 4 mg IV Q8H PRN PRN PRN Reason: NAUSEA/VOMITING Pantoprazole Sodium (Protonix) 20 mg PO DAILY [facility] Last Admin: 12/15/19 10:00 Dose: 20 mg Documented by: Prednisone () 40 mg PO DAILY@0800 [facility] Last Admin: 12/15/19 08:42 Dose: 40 mg Documented by: Senna/Docusate Sodium (Senokot-S, Lakisha-Colace) 2 tablet PO BID PRN PRN PRN Reason: Constipation Sodium Chloride () 10 - 40 ml IV UD PRN PRN Reason: SALINE FLUSH Spironolactone (Aldactone) 100 mg PO DAILY [facility] Last Admin: 12/15/19 10:01 Dose: 100 mg Documented by: STROKE Vital Signs/Narrative: Vital Signs Pulse Pulse Ox Pulse Ox Pulse Ox 12/15/19 14:03 89 89 92 12/15/19 11:00 96 Medical Necessity - Tobacco Use Smoking Status: Current every day smoker Tobacco Use: Cigarettes Assessment/Plan All Active Problems (Last Reviewed 12/14/19 @ 15:25 by Sushila Vegas DO) OD (overdose of drug) (Acute) Leukocytosis (Acute) Dehydration (Acute) Suicide gesture (Acute) Abscess of breast (Resolved) Abscess of neck (Resolved) Abscess of sternal region (Resolved) Acute kidney injury (Resolved) Cat bite (Resolved) Cat bite of right hand with infection (Resolved) Cat scratch (Resolved) Cat scratch of left hand with infection (Resolved) Cat scratch of right hand with infection (Resolved) History of incision and drainage (Resolved) [place] toxicity (Resolved) Necrotizing soft tissue infection (Resolved) Non-pressure chronic ulcer of skin of other sites with fat layer exposed (Resolved) Open wound involving head with neck, complicated (Resolved) Open wound of chest wall, complicated (Resolved) Open wound of left axillary region (Resolved) Open wound of right axillary region with complication (Resolved) Unspecified open wound of unspecified part of head, subsequent encounter (Resolved) Unspecified open wound of unspecified part of neck, subsequent encounter (Resolved) 1. Intentional overdose in the setting of bipolar disorder versus borderline personality disorder-crisis consulted, patient is being referred to inpatient psych at discharge. Per psychiatric medications continued including BuSpar, Cymbalta, Zyprexa 2. Asthma exacerbation-continue 5-day steroid burst, aerosol therapy. She remained stable off oxygen with minimal dyspnea. 3. Polysubstance abuse-tox screen positive for amphetamines, methamphetamines, benzodiazepines, cannabinoids. She does not drink. She does use nicotine. Patch is desired. 4. Type 2 diabetes with morbid obesity-continue metformin, glipizide, sliding scale insulin 5. Homelessness-complicating above with particular concern for compliance issues, patient safety, exposure, and limiting choices of possible interventions. 6. History of hidradenitis 7. Chronic normocytic anemia-B12 and folate done, no deficiency. Iron, TIBC, saturation, and ferritin are all normal. 8. Hypertension-Home meds continued DVT prophylaxis: Lovenox Discharge planning: Waiting for acceptance at psych facility This patient was seen by Kishan Sneed PA-C under the supervision of Doctor Enrrique. <Enedelia Osuna - Last Filed: 12/15/19 15:02> Vitals/I&O's: Vital Signs Temp Pulse Resp BP Pulse Ox 98.1 F 96 18 125/76 H 92 12/15/19 09:55 12/15/19 11:00 12/15/19 09:55 12/15/19 09:55 12/15/19 14:03 Oxygen Flow Rate (L/min) 4 Oxygen Delivery Method Room Air Weight: 93.894 kg Body Mass Index (BMI) 34.4 Finger Stick Blood Glucose 315 Intake and Output for Last 24 Hours 12/13/19 12/14/19 12/15/19 23:59 23:59 23:59 Intake Total 330 / 330 2355 / 2355 Output Total Balance 330 / 330 2354 / 2354 Laboratory Results 12/14/19 12:30: Magnesium 1.7, Iron 64, TIBC 303, Iron Saturation 21.1, Ferritin 155, Folate 65.30 H 12/14/19 12:30: Hemoglobin A1c 6.9 H 12/14/19 12:30: Hepatitis A IgM Ab Pending, Hepatitis A Ab Total Pending, Hep Bs Antigen Pending, Hep B Core Total Ab Pending, Hep B Core IgM Ab Pending 12/14/19 12:30: Vitamin B12 273 12/14/19 17:26: POC Glucose 166 H 12/14/19 21:53: POC Glucose 227 H 12/15/19 06:20: WBC 10.5, RBC 3.15 L, Hgb 9.1 L, Hct 29.3 L, MCV 93.0, MCH 28.9, MCHC 31.1 L, RDW Std Deviation 53.2 H, RDW Coeff of Radha 16.5 H, Plt Count 408, MPV 8.9, Immature Gran % (Auto) 0.900, Neut % (Auto) 75.5 H, Lymph % (Auto) 18.8 L, [place] % (Auto) 4.1, Eos % (Auto) 0.3, Baso % (Auto) 0.4, Absolute Neuts (auto) 7.9 H, Absolute Lymphs (auto) 1.97, Nucleated RBC % 0 12/15/19 06:20: Sodium 140, Potassium 3.7, Chloride 111 H, Carbon Dioxide 22.0, Anion Gap 7, BUN 8, Creatinine 0.70, Estim Creat Clear Calc 100.94, Est GFR (MDRD) Af Amer 122, Est GFR (MDRD) Non-Af 101, BUN/Creatinine Ratio 11.4, Glucose 160 H, Calcium 8.5, Total Bilirubin 0.70, AST 14 L, ALT 23, Alkaline Phosphatase 66, Total Protein 6.5, Albumin 3.3, Globulin 3.2, Albumin/Globulin Ratio 1.0, Triglycerides 75, Cholesterol 95, LDL Cholesterol 41, VLDL Cholesterol 15, HDL Cholesterol 39 L 12/15/19 06:27: POC Glucose 148 H 12/15/19 11:29: POC Glucose 208 H Current Medications Acetaminophen (Tylenol) 650 mg PO Q6H PRN PRN PRN Reason: Pain Score 1-10/Temp > 100.7 F Albuterol Sulfate (Ventolin Aerosols) 2.5 mg INHALATION Q2H PRN PRN PRN Reason: SOB/Wheezing Albuterol/Ipratropium (Duoneb) 3 ml INHALATION Q6H.RT [facility] Last Admin: 12/15/19 07:21 Dose: 3 ml Documented by: Atorvastatin Calcium (Lipitor) 20 mg PO QHS [facility] Last Admin: 12/14/19 21:55 Dose: 20 mg Documented by: Bisacodyl (Dulcolax) 5 mg PO DAILY PRN PRN PRN Reason: Constipation Buspirone HCl (Buspar) 5 mg PO TID [facility] Last Admin: 12/15/19 14:02 Dose: 5 mg Documented by: Buspirone HCl (Buspar) 15 mg PO TID [facility] Last Admin: 12/15/19 14:02 Dose: 15 mg Documented by: Clonidine (Catapres) 0.1 mg PO DAILY [facility] Last Admin: 12/15/19 10:01 Dose: 0.1 mg Documented by: Dextrose (D50w Syringe) 0 gm IV X1 PRN; Protocol PRN Reason: Hypoglycemia Duloxetine HCl (Cymbalta) 30 mg PO DAILY [facility] Last Admin: 12/15/19 10:01 Dose: 30 mg Documented by: Duloxetine HCl (Cymbalta) 60 mg PO DAILY [facility] Last Admin: 12/15/19 10:01 Dose: 60 mg Documented by: Enoxaparin Sodium (Lovenox) 40 mg SC DAILY [facility] Last Admin: 12/15/19 10:03 Dose: 40 mg Documented by: [facility]) [facility] Last Admin: 12/15/19 08:39 Dose: 1 mg Documented by: Glip[facility]rol) [facility] Last Admin: 12/15/19 08:39 Dose: 10 mg Documented by: Glucagon () 1 mg IM .X1 PRN PRN Reason: Hypoglycemia Insulin Human Lispro (Humalog Kwikpen (Bkc)) 0 unit SC [facility]; Protocol Last Admin: 12/15/19 11:36 Dose: 2 u Documented by: Magnesium Hydroxide (Milk Of Magnesia) 30 ml PO DAILY PRN PRN PRN Reason: Constipation Melatonin (Melatonin) 3 mg PO QHS PRN PRN PRN Reason: INSOMNIA Metformin [facility] (Glucophage) [facility] Last Admin: 12/15/19 08:39 Dose: 1,000 mg Documented by: Nicotine (Nicoderm Cq (kc)) 21 mg TRANSDERM. DAILY [facility] Last Admin: 12/15/19 10:10 Dose: 21 mg Documented by: Olanzapine (Zyprexa) 20 mg PO QHS [facility] Last Admin: 12/14/19 21:55 Dose: 20 mg Documented by: Ondansetron HCl (Zofran) 4 mg IV Q8H PRN PRN PRN Reason: NAUSEA/VOMITING Pantoprazole Sodium (Protonix) 20 mg PO DAILY [facility] Last Admin: 12/15/19 10:00 Dose: 20 mg Documented by: Prednisone () 40 mg PO DAILY@0800 [facility] Last Admin: 12/15/19 08:42 Dose: 40 mg Documented by: Senna/Docusate Sodium (Senokot-S, Lakisha-Colace) 2 tablet PO BID PRN PRN PRN Reason: Constipation Sodium Chloride () 10 - 40 ml IV UD PRN PRN Reason: SALINE FLUSH Spironolactone (Aldactone) 100 mg PO DAILY [facility] Last Admin: 12/15/19 10:01 Dose: 100 mg Documented by: STROKE Vital Signs/Narrative: Vital Signs Pulse Pulse Ox Pulse Ox Pulse Ox 12/15/19 14:03 89 89 92 12/15/19 11:00 96 Assessment/Plan This patient was seen in conjunction with LYDIA Gonzalez. I have independently interviewed and examined the patient and reviewed pertinent historical, laboratory, and other data. Please refer to LYDIA Gonzalez note for his patient's presentation, findings, and recommendations. I have reviewed and his note and concur with his documentation Patient was seen and examined. She feels remorseful. Feels hopeless. Crisis is evaluating for inpatient psych admission [place] any fever or chills. Complains of nasal congestion. Physical Exam: Gen: Looks unhappy, tearful, not pale, not jaundiced CVS:HS I +II, regular, no murmurs RESP: Diminished at lung bases, wheezes GI: BS present and normal, soft, nontender, no palpable organs EXT:No edema ASSESSMENT: 1. Acute intentional overdose 2. Acute asthma exacerbation 3. Polysubstance use disorder 4. Type II DM 5. Bipolar disorder Plan: Okay for discharge to inpatient psych facility when facility is ready Continue breathing treatments Code Visit Inpatient E&M: 97641 Subs Hosp L2
[2019-12-15] MEDS: 0.9% Saline Lock 10 ML Syringe IV (15:28)
[2019-12-15] MEDS: Ondansetron 4 MG/2 ML Vial IV (15:28)
[2019-12-15 16:50] LABS: Bedside Glucose 275 mg/dL (70-110)
[2019-12-15] MEDS: Loperamide 2 MG Capsule PO (21:57)
[2019-12-15] MEDS: OLANZapine 10 MG Tablet 20 MG PO (21:57)
[2019-12-15] MEDS: Atorvastatin Calcium 20 MG Tablet PO (21:57)
[2019-12-15 22:02] LABS: Mucous, Urine 0 SEEN /hpf (<or=2+)
[2019-12-15 22:03] LABS: Color, Urine Yellow (Yellow); Glucose, Dipstick 50 mg/dl (Normal); Ketone-Dipstick 5 mg/dl (Negative); Leukocyte Esterase-Dipstick 100 /ul (Negative); Nitrite-Dipstick Positive (Negative); Occult Blood-Urine Negative /ul (Negative); Protein-Dipstick Negative (Negative); Urine Bilirubin Dipstick Negative (Negative); Urine Clarity Sl. Cloudy (Clear); Urine Urobilinogen 4 mg/dl (Normal)
[2019-12-15 22:05] LABS: Bedside Glucose 134 mg/dL (70-110)
[2019-12-15 22:12] LABS: Bacteria 3+ /hpf (None Seen); Red Blood Cells-Urine 0-5 SEEN /hpf (0-5); Squamous Epithelial Cells - UA 0-5 SEEN /hpf (5-10); White Blood Cells 0-5 SEEN /hpf (0-5)
--- NOTE | 2019-12-15 23:19 | NURSING ---
RN ATTEMPTED TO CALL VIKTORIYA PALACIOS TO UPDATE ABOUT PATIENT BEING TREATED FOR UTI WITH IV ROCEPHIN.
[2019-12-16] VITALS (15 sets, daily range): BP systolic 110–129; BP diastolic 60–80; PULSE 68–91; RESP 16–18; TEMP 36.6–37.2; O2SAT 92–95
[2019-12-16] MEDS: Ceftriaxone 1 GM/50 ML BAG IV ×2 (00:06→10:19)
[2019-12-16] MEDS: 0.9% Saline Lock 10 ML Syringe IV ×5 (00:07→23:36)
[2019-12-16] MEDS: Ipratropium/Albuterol Sulfate 3 ML AMPUL.NEB INHALATION ×4 (00:47→18:50)
[2019-12-16] MEDS: busPIRone 15 MG TABLET PO ×3 (06:23→22:19)
[2019-12-16] MEDS: busPIRone 5 MG Tablet PO ×3 (06:23→22:19)
[2019-12-16 06:30] LABS: Bedside Glucose 94 mg/dL (70-110)
[2019-12-16] MEDS: predniSONE 20 MG Tablet 40 MG PO (08:31)
[2019-12-16] MEDS: glipiZIDE 10 MG Tablet PO ×2 (08:31→16:55)
[2019-12-16] MEDS: metFORMIN HCl 1,000 MG Tablet 1000 MG PO ×2 (08:31→16:55)
[2019-12-16] MEDS: Folic Acid 1 MG Tablet PO (08:31)
[2019-12-16] MEDS: DULoxetine Hcl 30 MG Capsule PO (10:16)
[2019-12-16] MEDS: cloNIDine HCl 0.1 MG Tablet PO (10:16)
[2019-12-16] MEDS: DULoxetine Hcl 60 MG Capsule PO (10:16)
[2019-12-16] MEDS: Pantoprazole Sodium 20 MG Tablet PO (10:16)
[2019-12-16] MEDS: Spironolactone 50 MG Tablet 100 MG PO (10:16)
[2019-12-16] MEDS: Enoxaparin 40 MG/0.4 ML Syringe SC (10:22)
[2019-12-16] MEDS: Insulin Lispro 100 UNIT/ML INSULN.PEN SC ×3 (11:14→22:19)
[2019-12-16 12:01] LABS: Bedside Glucose 226 mg/dL (70-110)
[2019-12-16 13:24] LABS: Anion Gap 6 (5-15); BUN 14 mg/dL (7-18); Calcium,Total 8.6 mg/dL (8.5-10.1); Chloride 108 mmol/L (98-107); Creatinine, Serum 0.94 mg/dL (0.55-1.02); EST Glomerular Filtration Rate 72 mL/min (>60); Est Glom Filt Rate - Afr Amer 88 mL/min (>60); Estimated Creatinine Clearance 75.17 ml/min; Glucose 216 mg/dL (74-106); Magnesium 1.8 mg/dL (1.6-2.6); Sodium Level 139 mmol/L (136-145)
--- NOTE | 2019-12-16 13:37 | PN_ITS ---
<Kishan Sneed - Last Filed: 12/16/19 13:37> Patient Problems: Active and Suspected Problems (Last Reviewed 12/14/19 @ 15:25 by Sushila Vegas DO) OD (overdose of drug) (Acute) Flexeril Leukocytosis (Acute) no evidence of infection, afebrile Dehydration (Acute) Reason for Visit: SOB Subjective: Ongoing nonproductive cough, no fever chills, ongoing SOB at rest + exertion, ongoing wheezing. Also c/o dysuria. Vitals/I&O's: Vital Signs Temp Pulse Resp BP Pulse Ox 98.2 F 78 16 129/80 H 92 12/16/19 11:05 12/16/19 13:12 12/16/19 13:12 12/16/19 11:05 12/16/19 11:05 Oxygen Flow Rate (L/min) 4 Oxygen Delivery Method Room Air Weight: 207 lb Body Mass Index (BMI) 34.4 Finger Stick Blood Glucose 315 Intake and Output for Last 24 Hours 12/14/19 12/15/19 12/16/19 23:59 23:59 23:59 Intake Total 330 / 330 2595 / 3015 970 / 970 Output Total 1 502 1101 / 1101 Balance 330 / 330 2594 / 2513 -131 / -131 General: Alert, Oriented x3, Cooperative HEENT: Atraumatic, PERRLA, EOMI, Normocephalic Neck: Supple, No JVD, Negative Carotid Bruits Lungs: Normal air movement, Wheezes Cardiovascular: Regular rate, No murmurs Abdomen: Bowel Sounds Present, Soft, Non Tender Extremities: No edema, Capillary Refill Less than 3 Seconds Skin: No rashes, No breakdown Musculoskeletal: No Tenderness to Palpation of Joints or Extremities Neurological: Cranial nerves II-XII grossly intact Psych/Mental Status: Normal Affect, Appropriate, Alert and oriented to time, place, person, mood and affect Microbiology Past 72 Hours 12/15/19 21:49 Urine, Clean Catch Urine Culture - Preliminary Presumptive E. coli Laboratory Results 12/15/19 16:38: POC Glucose 275 H 12/15/19 21:49: Urine Color Yellow, Urine Clarity Sl. Cloudy, Urine pH 6.0, Ur Specific [place] 1.020, Urine Protein Negative, Urine Glucose (UA) 50 H, Urine Ketones 5 H, Urine Occult Blood Negative, Urine Nitrite Positive H, Urine Bilirubin Negative, Urine Urobilinogen 4 H, Ur Leukocyte Esterase 100 H, Urine RBC 0-5 SEEN, Urine WBC 0-5 SEEN, Ur Squamous Epith Cells 0-5 SEEN, Urine Bacteria 3+, Urine Mucus 0 SEEN 12/15/19 21:51: POC Glucose 134 H 12/16/19 06:25: POC Glucose 94 12/16/19 11:13: POC Glucose 226 H 12/16/19 13:04: Sodium 139, Potassium 4.0, Chloride 108 H, Carbon Dioxide 25.0, Anion Gap 6, BUN 14, Creatinine 0.94, Estim Creat Clear Calc 75.17, Est GFR (MDRD) Af Amer 88, Est GFR (MDRD) Non-Af 72, BUN/Creatinine Ratio 15.0, Glucose 216 H, Calcium 8.6, Magnesium 1.8 Current Medications Acetaminophen (Tylenol) 650 mg PO Q6H PRN PRN PRN Reason: Pain Score 1-10/Temp > 100.7 F Albuterol Sulfate (Ventolin Aerosols) 2.5 mg INHALATION Q6H PRN PRN PRN Reason: SOB/Wheezing Albuterol/Ipratropium (Duoneb) 3 ml INHALATION Q6H.RT [facility] Last Admin: 12/16/19 13:12 Dose: 3 ml Documented by: Atorvastatin Calcium (Lipitor) 20 mg PO QHS [facility] Last Admin: 12/15/19 21:57 Dose: 20 mg Documented by: Bisacodyl (Dulcolax) 5 mg PO DAILY PRN PRN PRN Reason: Constipation Buspirone HCl (Buspar) 5 mg PO TID [facility] Last Admin: 12/16/19 06:23 Dose: 5 mg Documented by: Buspirone HCl (Buspar) 15 mg PO TID [facility] Last Admin: 12/16/19 06:23 Dose: 15 mg Documented by: Clonidine (Catapres) 0.1 mg PO DAILY [facility] Last Admin: 12/16/19 10:16 Dose: 0.1 mg Documented by: Dextrose (D50w Syringe) 0 gm IV X1 PRN; Protocol PRN Reason: Hypoglycemia Duloxetine HCl (Cymbalta) 30 mg PO DAILY [facility] Last Admin: 12/16/19 10:16 Dose: 30 mg Documented by: Duloxetine HCl (Cymbalta) 60 mg PO DAILY [facility] Last Admin: 12/16/19 10:16 Dose: 60 mg Documented by: Enoxaparin Sodium (Lovenox) 40 mg SC DAILY [facility] Last Admin: 12/16/19 10:22 Dose: 40 mg Documented by: [facility] Admin: 12/16/19 08:31 Dose: 1 mg Documented by: Glip[facility]) [facility] Last Admin: 12/16/19 08:31 Dose: 10 mg Documented by: Glucagon () 1 mg IM .X1 PRN PRN Reason: Hypoglycemia Ceftriaxone Sodium (Rocephin) 1 gm in 50 mls @ 100 mls/hr IV Q24 [facility] Last Infusion: 12/16/19 10:49 Dose: Infused Documented by: Sodium Chloride () 250 mls @ 15 mls/hr IV .[id number] PRN PRN Reason: Saline Flush Last Infusion: 12/16/19 00:06 Dose: 0 mls/hr Documented by: Sodium Chloride () 250 mls @ 15 mls/hr IV .[id number] PRN PRN Reason: Additional IVPB Infusion Insulin Human Lispro ([facility]al[facility] K[facility] (B[facility])) [facility]; Protocol Last Admin: 12/16/19 11:14 Dose: 2 u Documented by: Loperamide HCl (Imodium) 2 mg PO Q4H PRN PRN PRN Reason: DIARRHEA Last Admin: 12/15/19 21:57 Dose: 2 mg Documented by: Magnesium Hydroxide (Milk Of Magnesia) 30 ml PO DAILY PRN PRN PRN Reason: Constipation Melatonin (Melatonin) 3 mg PO QHS PRN PRN PRN Reason: INSOMNIA [facility] ([facility]) [facility] Last Admin: 12/16/19 08:31 Dose: 1,000 mg Documented by: Methylprednisolone (Solu-Medrol) 40 mg IV Q6 [facility] Last Admin: 12/16/19 11:08 Dose: 40 mg Documented by: Nicotine (Nicoderm Cq (Pbkc)) 21 mg TRANSDERM. DAILY [facility] Last Admin: 12/16/19 10:22 Dose: 21 mg Documented by: Olanzapine (Zyprexa) 20 mg PO QHS [facility] Last Admin: 12/15/19 21:57 Dose: 20 mg Documented by: Ondansetron HCl (Zofran) 4 mg IV Q8H PRN PRN PRN Reason: NAUSEA/VOMITING Last Admin: 12/15/19 15:28 Dose: 4 mg Documented by: Pantoprazole Sodium (Protonix) 20 mg PO DAILY [facility] Last Admin: 12/16/19 10:16 Dose: 20 mg Documented by: Senna/Docusate Sodium (Senokot-S, Lakisha-Colace) 2 tablet PO BID PRN PRN PRN Reason: Constipation Sodium Chloride () 10 - 40 ml IV UD PRN PRN Reason: SALINE FLUSH Last Admin: 12/16/19 11:10 Dose: 10 ml Documented by: Spironolactone (Aldactone) 100 mg PO DAILY [facility] Last Admin: 12/16/19 10:16 Dose: 100 mg Documented by: STROKE Vital Signs/Narrative: Vital Signs Temp Pulse Resp BP Pulse Ox 12/16/19 13:12 78 16 12/16/19 11:05 98.2 F 86 18 129/80 H 92 12/16/19 11:00 89 Medical Necessity - Tobacco Use Smoking Status: Current every day smoker Tobacco Use: Cigarettes Assessment/Plan All Active Problems (Last Reviewed 12/14/19 @ 15:25 by Sushila Vegas DO) OD (overdose of drug) (Acute) Leukocytosis (Acute) Dehydration (Acute) Suicide gesture (Acute) Abscess of breast (Resolved) Abscess of neck (Resolved) Abscess of sternal region (Resolved) Acute kidney injury (Resolved) Cat bite (Resolved) Cat bite of right hand with infection (Resolved) Cat scratch (Resolved) Cat scratch of left hand with infection (Resolved) Cat scratch of right hand with infection (Resolved) History of incision and drainage (Resolved) [place] toxicity (Resolved) Necrotizing soft tissue infection (Resolved) Non-pressure chronic ulcer of skin of other sites with fat layer exposed (Resolved) Open wound involving head with neck, complicated (Resolved) Open wound of chest wall, complicated (Resolved) Open wound of left axillary region (Resolved) Open wound of right axillary region with complication (Resolved) Unspecified open wound of unspecified part of head, subsequent encounter (Resolved) Unspecified open wound of unspecified part of neck, subsequent encounter (Resolved) 1. Intentional overdose in the setting of bipolar disorder versus borderline personality disorder-crisis consulted, patient is being referred to inpatient psych at discharge. Per psychiatric medications continued including BuSpar, Cymbalta, Zyprexa 2. Asthma exacerbation-minimal improvement change to solumedrol, continue aerosols, decrease albuterol frequency with 1 episode v tach and s tach. check mag. This was likely triggered by exposure (homeless), smoking cigarettes and meth. 3. Acute cystitis - rocephin. follow culture. 4. Polysubstance abuse-tox screen positive for amphetamines, methamphetamines, benzodiazepines, cannabinoids. She does not drink. She does use nicotine. Patch is desired. 5. Type 2 diabetes with morbid obesity-continue metformin, glipizide, sliding scale insulin 6. Homelessness-complicating above with particular concern for compliance issues, patient safety, exposure, and limiting choices of possible interventions. 7. History of hidradenitis 8. Chronic normocytic anemia-B12 and folate done, no deficiency. Iron, TIBC, saturation, and ferritin are all normal. 9. Hypertension-Home meds continued DVT prophylaxis: Lovenox Discharge planning: to [facility] when asthma improved. This patient was seen by Kishan Sneed PA-C under the supervision of Doctor Enrrique. <Enedelia Osuna - Last Filed: 12/16/19 13:49> Vitals/I&O's: Vital Signs Temp Pulse Resp BP Pulse Ox 98.2 F 78 16 129/80 H 92 12/16/19 11:05 12/16/19 13:12 12/16/19 13:12 12/16/19 11:05 12/16/19 11:05 Oxygen Flow Rate (L/min) 4 Oxygen Delivery Method Room Air Weight: 93.894 kg Body Mass Index (BMI) 34.4 Finger Stick Blood Glucose 315 Intake and Output for Last 24 Hours 12/14/19 12/15/19 12/16/19 23:59 23:59 23:59 Intake Total 330 / 330 2595 / 3015 970 / 970 Output Total 1101 / 1101 Balance 330 / 330 2594 / 2513 -131 / -131 Microbiology Past 72 Hours 12/15/19 21:49 Urine, Clean Catch Urine Culture - Preliminary Presumptive E. coli Laboratory Results 12/15/19 16:38: POC Glucose 275 H 12/15/19 21:49: Urine Color Yellow, Urine Clarity Sl. Cloudy, Urine pH 6.0, Ur Specific [place] 1.020, Urine Protein Negative, Urine Glucose (UA) 50 H, Urine Ketones 5 H, Urine Occult Blood Negative, Urine Nitrite Positive H, Urine Bilirubin Negative, Urine Urobilinogen 4 H, Ur Leukocyte Esterase 100 H, Urine RBC 0-5 SEEN, Urine WBC 0-5 SEEN, Ur Squamous Epith Cells 0-5 SEEN, Urine Bacteria 3+, Urine Mucus 0 SEEN 12/15/19 21:51: POC Glucose 134 H 12/16/19 06:25: POC Glucose 94 12/16/19 11:13: POC Glucose 226 H 12/16/19 13:04: Sodium 139, Potassium 4.0, Chloride 108 H, Carbon Dioxide 25.0, Anion Gap 6, BUN 14, Creatinine 0.94, Estim Creat Clear Calc 75.17, Est GFR (MDRD) Af Amer 88, Est GFR (MDRD) Non-Af 72, BUN/Creatinine Ratio 15.0, Glucose 216 H, Calcium 8.6, Magnesium 1.8 Current Medications Acetaminophen (Tylenol) 650 mg PO Q6H PRN PRN PRN Reason: Pain Score 1-10/Temp > 100.7 F Albuterol Sulfate (Ventolin Aerosols) 2.5 mg INHALATION Q6H PRN PRN PRN Reason: SOB/Wheezing Albuterol/Ipratropium (Duoneb) 3 ml INHALATION Q6H.RT [facility] Last Admin: 12/16/19 13:12 Dose: 3 ml Documented by: Atorvastatin Calcium (Lipitor) 20 mg PO QHS [facility] Last Admin: 12/15/19 21:57 Dose: 20 mg Documented by: Bisacodyl (Dulcolax) 5 mg PO DAILY PRN PRN PRN Reason: Constipation Buspirone HCl (Buspar) 5 mg PO TID [facility] Last Admin: 12/16/19 13:39 Dose: 5 mg Documented by: Buspirone HCl (Buspar) 15 mg PO TID [facility] Last Admin: 12/16/19 13:39 Dose: 15 mg Documented by: Clonidine (Catapres) 0.1 mg PO DAILY [facility] Last Admin: 12/16/19 10:16 Dose: 0.1 mg Documented by: Dextrose (D50w Syringe) 0 gm IV X1 PRN; Protocol PRN Reason: Hypoglycemia Duloxetine HCl (Cymbalta) 30 mg PO DAILY [facility] Last Admin: 12/16/19 10:16 Dose: 30 mg Documented by: Duloxetine HCl (Cymbalta) 60 mg PO DAILY [facility] Last Admin: 12/16/19 10:16 Dose: 60 mg Documented by: Enoxaparin Sodium (Lovenox) 40 mg SC DAILY [facility] Last Admin: 12/16/19 10:22 Dose: 40 mg Documented by: Folic [facility] ([facility] Acid) [facility] Last Admin: 12/16/19 08:31 Dose: 1 mg Documented by: Glipizide (Glucotrol) [facility] Last Admin: 12/16/19 08:31 Dose: 10 mg Documented by: Glucagon () 1 mg IM .X1 PRN PRN Reason: Hypoglycemia Ceftriaxone Sodium (Rocephin) 1 gm in 50 mls @ 100 mls/hr IV Q24 [facility] Last Infusion: 12/16/19 10:49 Dose: Infused Documented by: Sodium Chloride () 250 mls @ 15 mls/hr IV .[id number] PRN PRN Reason: Saline Flush Last Infusion: 12/16/19 00:06 Dose: 0 mls/hr Documented by: Sodium Chloride () 250 mls @ 15 mls/hr IV .[id number] PRN PRN Reason: Additional IVPB Infusion Magnesium Sulfate 2 gm/ Sodium (Chloride) 104 mls @ 52 mls/hr IV X1 ONE Stop: 12/16/19 15:39 Insulin Human Lispro (Humalog Kwikpen (Bkc)) 0 unit SC [facility]; Protocol Last Admin: 12/16/19 11:14 Dose: 2 u Documented by: Loperamide HCl (Imodium) 2 mg PO Q4H PRN PRN PRN Reason: DIARRHEA Last Admin: 12/15/19 21:57 Dose: 2 mg Documented by: Magnesium Hydroxide (Milk Of Magnesia) 30 ml PO DAILY PRN PRN PRN Reason: Constipation Melatonin (Melatonin) 3 mg PO QHS PRN PRN PRN Reason: INSOMNIA Metformin [facility] ([facility]) [facility] Last Admin: 12/16/19 08:31 Dose: 1,000 mg Documented by: Methylprednisolone (Solu-Medrol) 40 mg IV Q6 [facility] Last Admin: 12/16/19 11:08 Dose: 40 mg Documented by: Nicotine (Nicoderm Cq (Pbkc)) 21 mg TRANSDERM. DAILY [facility] Last Admin: 12/16/19 10:22 Dose: 21 mg Documented by: Olanzapine (Zyprexa) 20 mg PO QHS [facility] Last Admin: 12/15/19 21:57 Dose: 20 mg Documented by: Ondansetron HCl (Zofran) 4 mg IV Q8H PRN PRN PRN Reason: NAUSEA/VOMITING Last Admin: 12/15/19 15:28 Dose: 4 mg Documented by: Pantoprazole Sodium (Protonix) 20 mg PO DAILY [facility] Last Admin: 12/16/19 10:16 Dose: 20 mg Documented by: Senna/Docusate Sodium (Senokot-S, Lakisha-Colace) 2 tablet PO BID PRN PRN PRN Reason: Constipation Sodium Chloride () 10 - 40 ml IV UD PRN PRN Reason: SALINE FLUSH Last Admin: 12/16/19 11:10 Dose: 10 ml Documented by: Spironolactone (Aldactone) 100 mg PO DAILY [facility] Last Admin: 12/16/19 10:16 Dose: 100 mg Documented by: STROKE Vital Signs/Narrative: Vital Signs Temp Pulse Resp BP Pulse Ox 12/16/19 13:12 78 16 12/16/19 11:05 98.2 F 86 18 129/80 H 92 12/16/19 11:00 89 Assessment/Plan This patient was seen in conjunction with LYDIA Gonzalez. I have independently interviewed and examined the patient and reviewed pertinent historical, laboratory, and other data. Please refer to LYDIA Gonzalez note for his patient's presentation, findings, and recommendations. I have reviewed and his note and concur with his documentation Patient was seen and examined. Complains of cough, SOB, dysuria, urgency Physical Exam: Gen: Looks unhappy, tearful, not pale, not jaundiced, not on oxygen, comfortable CVS:HS I +II, regular, no murmurs RESP: Diminished at lung bases, wheezes+ GI: BS present and normal, soft, nontender, no palpable organs EXT:No edema ASSESSMENT: 1. Acute intentional overdose 2. Acute asthma exacerbation 3. Acute E. Coli UTI 4. Polysubstance use disorder 5. Type II DM 6. Bipolar disorder Plan: Continue with IV ceftriaxone pending urine cultures Continue breathing treatments Continue steroids Code Visit Inpatient E&M: 99750 Subs Hosp L2
[2019-12-16] MEDS: Ondansetron 4 MG/2 ML Vial IV ×2 (14:43→23:48)
[2019-12-16 17:46] LABS: Bedside Glucose 342 mg/dL (70-110)
[2019-12-16] MEDS: Atorvastatin Calcium 20 MG Tablet PO (22:19)
[2019-12-16] MEDS: OLANZapine 10 MG Tablet 20 MG PO (22:20)
[2019-12-16 22:30] LABS: Bedside Glucose 219 mg/dL (70-110)
[2019-12-16 23:02] LABS: HEPATITIS B SURFACE AG Negative (Negative); Hepatitis A AB, Total Negative (Negative); Hepatitis A IgM Antibody Negative (Negative); Hepatitis B Core AB IgM Negative (Negative); Hepatitis B Core Ab Total Negative (Negative); Hepatitis C Ab 0.1 s/co ratio (0.0-0.9)
[2019-12-17] VITALS (12 sets, daily range): BP systolic 122–134; BP diastolic 67–80; PULSE 78–99; RESP 16–18; TEMP 36.7–37; O2SAT 92–96
[2019-12-17] MEDS: Insulin Lispro 100 UNIT/ML INSULN.PEN SC ×4 (06:48→22:35)
[2019-12-17] MEDS: busPIRone 15 MG TABLET PO ×3 (06:48→22:34)
[2019-12-17] MEDS: 0.9% Saline Lock 10 ML Syringe IV ×5 (06:48→17:03)
[2019-12-17] MEDS: busPIRone 5 MG Tablet PO ×3 (06:49→22:35)
[2019-12-17 06:55] LABS: Bedside Glucose 191 mg/dL (70-110)
[2019-12-17] MEDS: Ipratropium/Albuterol Sulfate 3 ML AMPUL.NEB INHALATION ×3 (07:22→21:00)
[2019-12-17] MEDS: DULoxetine Hcl 60 MG Capsule PO (09:01)
[2019-12-17] MEDS: DULoxetine Hcl 30 MG Capsule PO (09:01)
[2019-12-17] MEDS: Folic Acid 1 MG Tablet PO (09:01)
[2019-12-17] MEDS: cloNIDine HCl 0.1 MG Tablet PO (09:01)
[2019-12-17] MEDS: glipiZIDE 10 MG Tablet PO ×2 (09:01→16:59)
[2019-12-17] MEDS: metFORMIN HCl 1,000 MG Tablet 1000 MG PO ×2 (09:01→16:58)
[2019-12-17] MEDS: Pantoprazole Sodium 20 MG Tablet PO (09:02)
[2019-12-17] MEDS: Enoxaparin 40 MG/0.4 ML Syringe SC (09:02)
[2019-12-17] MEDS: Ceftriaxone 1 GM/50 ML BAG IV (09:02)
[2019-12-17] MEDS: Spironolactone 50 MG Tablet 100 MG PO (09:02)
[2019-12-17 09:54] LABS: Hep B Surface Antibodies Non Reactive (.)
--- NOTE | 2019-12-17 10:11 | CASEMGMT ---
Case Management Progress Note: Went to patient bedside, patient sleeping, easily aroused. Introduced self and role to patient. Explained/Reviewed [facility] form with patient in regards to current treatment this hospital admission. Informed outpatient billing is per her insurance policy and continual review is conducted to determine any changes in condition that may warrant Inpatient stay. Patient denied any questions/concerns regarding [facility] form and signed, Original placed in patient hard chart and patient provided a copy. Ari Rivas RNCM
[2019-12-17 11:21] LABS: Bedside Glucose 239 mg/dL (70-110)
--- NOTE | 2019-12-17 11:33 | DCINST_ITS ---
- Discharge Diagnoses Current Active Problems: Current Active and Chronic Problems (Last Reviewed 12/14/19 @ 15:25 by Sushila Vegas DO) OD (overdose of drug) (Acute) Flexeril Normochromic normocytic anemia (Chronic) unknown etiology Leukocytosis (Acute) no evidence of infection, afebrile Dehydration (Acute) You will use the following diet at home:: Cardiac Your food should be the consistency of: Regular Discharge Activity: Return to Normal Activity Allergies/Adverse Reactions: Allergies lamotrigine [From Lamictal] Allergy (Mild, Verified 11/26/19 19:41) Rash adhesive tape Allergy (Verified 11/26/19 19:41) Rash Medications to take at Discharge Duloxetine Hcl [Cymbalta] 60 mg PO DAILY 01/18/14 glipiZIDE [Glucotrol] 10 mg PO DAILY@0730 01/18/14 metFORMIN HCl [Glucophage] 1,000 mg PO BIDCM 01/18/14 Spironolactone [Aldactone] 100 mg PO DAILY 01/14/16 Lubiprostone [Amitiza] 24 mcg PO BID 01/16/18 Omeprazole [Prilosec] 20 mg PO DAILY 01/16/18 Atorvastatin Calcium 20 mg PO QHS 06/21/18 Buspirone HCl 20 mg PO TID 06/30/18 Olanzapine 20 mg PO QHS 10/29/19 Glipizide 5 mg PO DINNER 11/27/19 Clonidine HCl 0.1 mg PO DAILY 12/14/19 Duloxetine HCl [Cymbalta] 30 mg PO DAILY 12/14/19 Fluticasone Propionate [Flovent Hfa] 1 puff INHALATION BID 12/14/19 Folic Acid 1 mg PO DAILY 12/14/19 Hydroxyzine Pamoate 100 mg PO TID PRN PRN 12/14/19 Insulin Aspart [Novolog Flexpen] 4 units SUBCUT ACHS 12/14/19 Acetaminophen [Tylenol Tablet] 650 mg PO Q6H PRN PRN tab 12/15/19 Albuterol Aerosols [Ventolin Aerosols] 2.5 mg INHALATION Q2H PRN PRN vial.neb. 12/15/19 Ipratropium/Albuterol Sulfate [Duoneb] 3 ml INHALATION Q6H.RT ampul.neb 12/15/19 Melatonin 3 mg PO QHS PRN PRN tab 12/15/19 Gabapentin [Neurontin] 300 mg PO 4X/DAY 12/16/19 Nitrofurantoin Macrocrystal [Nitrofurantoin] 100 mg PO BID #4 cap 12/17/19 Prednisone 10 mg PO UD #30 tab 12/17/19 The following prescriptions were given: Nitrofurantoin Macrocrystal [Nitrofurantoin] 100 mg PO BID #4 cap Prednisone 10 mg PO UD #30 tab Primary Care Physician: Aj Staley MD [Primary Care Provider] - Please follow up with your Primary Care Physician in: 1-2 weeks Test Results: Test results from this visit will be discussed in further detail at your follow- up appointment, if applicable. Please Follow Up With: Psychiatry When: as directed Proposed Discharge Date: 12/15/19
--- NOTE | 2019-12-17 11:34 | PCM.PN.BLA ---
Progress Note Progress note: Patient SOB has improved. Burning with urination improved. No fever/chills. Occasional nonproductive cough. No increased o2 demand. No SOB with ambulation. Pt agreeable to DC to psychiatric facility. General: Resting comfortably NAD Psych: A/Ox3, flat affect HEENT: [place] AT NC Neck: Supple NT CV: RRR no m/t/r/g/h Resp: improved, faint end expiratory wheeze Abd: [id number] Soft NT no guarding or rigidity, obese Ext: DP2+= no edema Skin: W/D normal turgor Lymph/Heme: No active bleeding or adenopathy Neuro: CN2-12 intact Assessment, plan: 1. Asthma exacerbation-complete prednisone taper. Continue aerosols as needed 2. Acute cystitis-E. coli, sensitive to nitrofurantoin. Will complete total of 5 days of therapy. 3. Suicide attempt, intentional overdose-transfer to inpatient psych DC planning: Patient is medically stable for discharge to inpatient psychiatry. This patient was seen by Kishan Sneed PA-C under the supervision of Doctor Joseph. STROKE Vital Signs/Narrative: Vital Signs Temp Pulse Resp BP Pulse Ox 12/17/19 08:56 98.6 F 83 16 129/74 H 92
--- NOTE | 2019-12-17 14:43 | DS.PCM_ITS ---
<Kishan Sneed - Last Filed: 12/17/19 14:48> Discharge Date and Diagnosis - Problem List Patient Problems: Active and Suspected Problems (Last Reviewed 12/14/19 @ 15:25 by Sushila Vegas DO) OD (overdose of drug) (Acute) Flexeril Leukocytosis (Acute) no evidence of infection, afebrile Dehydration (Acute) Date of Admission: 12/14/19 Date of Discharge: 12/17/19 - Primary Discharge Diagnosis Active and Suspected Problems (Last Reviewed 12/14/19 @ 15:25 by Sushila Vegas DO) Intentional overdose Asthma exacerbation Acute cystitis Polypharmacy Bipolar disorder Borderline personality disorder Continue use Obesity History of hidradenitis suppurativa - Secondary Discharge Diagnosis Chronic Problems (Last Reviewed 12/14/19 @ 15:25 by Sushila Vegas DO) Normochromic normocytic anemia (Chronic) unknown etiology Substance abuse (Chronic) Depression (Chronic) Hypertension (Chronic) JOAN (generalized anxiety disorder) (Chronic) Borderline personality disorder (Chronic) not sure this is correct.......she has BPD listed as well Branchial cleft sinus (Chronic) Diabetes mellitus type 2, uncontrolled (Chronic) Chronic neck pain (Chronic) Bilateral carpal tunnel syndrome (Chronic) worse on left Hidradenitis suppurativa (Chronic) Painful recurrent right axillary hidradenitis 6 mm hidradenitis right posterior earlobe 4 cm recurrent hidradenitis posterior neck and occipital scalp History of section (Chronic) History of tonsillectomy (Chronic) Morbid obesity (Chronic) Bipolar affective (Chronic) Osteoarthritis (Chronic) Chronic back pain (Chronic) Smoker (Chronic) F17.200 H/O hidradenitis suppurativa (Chronic) Z87.2 Hospital Course and Treatment Consultations 12/15/19 08:57 Consult: Mental Health/Crisis Routine Reason for consult?: overdose Date Notified:: 12/15/19 Time notified:: 08:57 Operations: None, - Procedures: None Summary of Care Provided: Hospital course: The patient is a 34 year old F past medical history of above notably for asthma, bipolar disorder, borderline personality disorder, who presented the emergency room with intentional overdose. The patient had been off of her psychiatric medications for about a week, had been smoking meth for about a week, and the day of presentation took about 20 Flexeril. She stated she took the Flexeril in order to get out of the situation. In the emergency room she had some shortness of breath, wheezing, leukocytosis. Tox urine demonstrated amphetamines, methamphetamines, benzodiazepines, cannabinoids. She was admitted for intentional overdose. Crisis was consulted. She was given prednisone and aerosols for her shortness of breath and wheezing. The following day she complained of dysuria and was found to have a urinary tract infection and started on Rocephin. She had worsening of her breathing and wheezing and was transitioned to Solu-Medrol. She was kept overnight and her breathing improved. Her urine demonstrated E. coli that was susceptible to nitrofurantoin. She will complete a total of 5 days therapy of antibiotics. She was transitioned to oral prednisone taper. She was discharged to inpatient mental health in stable condition. She will need to follow-up with her PCP in 1 to 2 weeks, follow with psychiatry as directed. This patient was seen by Kishan Sneed PA-C under the supervision of Doctor Joseph. [] Patient Problems: Active and Suspected Problems (Last Reviewed 12/14/19 @ 15:25 by Sushila Vegas DO) OD (overdose of drug) (Acute) Flexeril Leukocytosis (Acute) no evidence of infection, afebrile Dehydration (Acute) - Physical Exam Vitals/I&O's: Vital Signs Temp Pulse Resp BP Pulse Ox 98.6 F 79 16 129/74 H 92 12/17/19 08:56 12/17/19 13:26 12/17/19 13:26 12/17/19 08:56 12/17/19 08:56 Oxygen Flow Rate (L/min) 4 Oxygen Delivery Method Room Air Weight: 207 lb Body Mass Index (BMI) 34.4 Finger Stick Blood Glucose 315 Intake and Output for Last 24 Hours 12/15/19 12/16/19 12/17/19 23:59 23:59 23:59 Intake Total 2595 / 3015 1434 / 1874 947.5 / 947.5 Output Total 1101 / 2201 1700 / 1700 Balance 2594 / 2513 333 / -327 -752.5 / -752.5 General: Alert, Oriented x3, Cooperative HEENT: Atraumatic, PERRLA, EOMI, Normocephalic Neck: Supple, No JVD, Negative Carotid Bruits Lungs: Clear to auscultation, Normal air movement, Wheezes - faint expiratory Cardiovascular: Regular rate, No murmurs Abdomen: Bowel Sounds Present, Soft, Non Tender Extremities: No edema, Capillary Refill Less than 3 Seconds Skin: No rashes, No breakdown Musculoskeletal: No Tenderness to Palpation of Joints or Extremities Neurological: Cranial nerves II-XII grossly intact Psych/Mental Status: Appropriate, Flat Affect Microbiology Past 72 Hours 12/15/19 21:49 Urine, Clean Catch Urine Culture - Final Presumptive E. coli Laboratory Results 12/14/19 12:30: Hepatitis A IgM Ab Negative, Hepatitis A Ab Total Negative, Hep Bs Antigen Negative, Hep B Core Total Ab Negative, Hep B Core IgM Ab Negative, Hepatitis C Ab Confirm 0.1, Hep C Confirm Com 1 Comment 12/16/19 16:54: POC Glucose 342 H 12/16/19 22:18: POC Glucose 219 H 12/17/19 06:46: POC Glucose 191 H 12/17/19 11:12: POC Glucose 239 H Current Medications Acetaminophen (Tylenol) 650 mg PO Q6H PRN PRN PRN Reason: Pain Score 1-10/Temp > 100.7 F Albuterol Sulfate (Ventolin Aerosols) 2.5 mg INHALATION Q6H PRN PRN PRN Reason: SOB/Wheezing Albuterol/Ipratropium (Duoneb) 3 ml INHALATION Q6H.RT [facility] Last Admin: 12/17/19 13:26 Dose: 3 ml Documented by: Atorvastatin Calcium (Lipitor) 20 mg PO QHS [facility] Last Admin: 12/16/19 22:19 Dose: 20 mg Documented by: Bisacodyl (Dulcolax) 5 mg PO DAILY PRN PRN PRN Reason: Constipation Buspirone HCl (Buspar) 5 mg PO TID [facility] Last Admin: 12/17/19 14:05 Dose: 5 mg Documented by: Buspirone HCl (Buspar) 15 mg PO TID [facility] Last Admin: 12/17/19 14:05 Dose: 15 mg Documented by: Clonidine (Catapres) 0.1 mg PO DAILY [facility] Last Admin: 12/17/19 09:01 Dose: 0.1 mg Documented by: Dextrose (D50w Syringe) 0 gm IV X1 PRN; Protocol PRN Reason: Hypoglycemia Duloxetine HCl (Cymbalta) 30 mg PO DAILY [facility] Last Admin: 12/17/19 09:01 Dose: 30 mg Documented by: Duloxetine HCl (Cymbalta) 60 mg PO DAILY [facility] Last Admin: 12/17/19 09:01 Dose: 60 mg Documented by: Enoxaparin Sodium (Lovenox) 40 mg SC DAILY [facility] Last Admin: 12/17/19 09:02 Dose: 40 mg Documented by: [facility] Admin: 12/17/19 09:01 Dose: 1 mg Documented by: Glipizide ([facility]ot[facility]) [facility] Last Admin: 12/17/19 09:01 Dose: 10 mg Documented by: Glucagon () 1 mg IM .X1 PRN PRN Reason: Hypoglycemia Ceftriaxone Sodium (Rocephin) 1 gm in 50 mls @ 100 mls/hr IV Q24 [facility] Last Infusion: 12/17/19 09:32 Dose: Infused Documented by: Sodium Chloride () 250 mls @ 15 mls/hr IV .[id number] PRN PRN Reason: Saline Flush Last Infusion: 12/17/19 10:42 Dose: 0 mls/hr Documented by: Sodium Chloride () 250 mls @ 15 mls/hr IV .[id number] PRN PRN Reason: Additional IVPB Infusion Insulin Human Lispro (Humalog Kwikpen (Bkc)) 0 unit SC ACHS [facility]; Protocol Last Admin: 12/17/19 11:14 Dose: 3 u Documented by: Loperamide HCl (Imodium) 2 mg PO Q4H PRN PRN PRN Reason: DIARRHEA Last Admin: 12/15/19 21:57 Dose: 2 mg Documented by: Magnesium Hydroxide (Milk Of Magnesia) 30 ml PO DAILY PRN PRN PRN Reason: Constipation Melatonin (Melatonin) 3 mg PO QHS PRN PRN PRN Reason: INSOMNIA Metformin [facility] ([facility]ophage) [facility] Last Admin: 12/17/19 09:01 Dose: 1,000 mg Documented by: Methylprednisolone (Solu-Medrol) 40 mg IV Q6 [facility] Last Admin: 12/17/19 11:15 Dose: 40 mg Documented by: Nicotine (Nicoderm Cq (Pbkc)) 21 mg TRANSDERM. DAILY [facility] Last Admin: 12/17/19 09:02 Dose: 21 mg Documented by: Olanzapine (Zyprexa) 20 mg PO QHS [facility] Last Admin: 12/16/19 22:20 Dose: 20 mg Documented by: Ondansetron HCl (Zofran) 4 mg IV Q8H PRN PRN PRN Reason: NAUSEA/VOMITING Last Admin: 12/16/19 23:48 Dose: 4 mg Documented by: Pantoprazole Sodium (Protonix) 20 mg PO DAILY [facility] Last Admin: 12/17/19 09:02 Dose: 20 mg Documented by: Senna/Docusate Sodium (Senokot-S, Lakisha-Colace) 2 tablet PO BID PRN PRN PRN Reason: Constipation Sodium Chloride () 10 - 40 ml IV UD PRN PRN Reason: SALINE FLUSH Last Admin: 12/17/19 11:15 Dose: 20 ml Documented by: Spironolactone (Aldactone) 100 mg PO DAILY [facility] Last Admin: 12/17/19 09:02 Dose: 100 mg Documented by: Discharge Diet: Low fat/ Low Cholesterol, 2000 mg Sodium Diet Discharge Activity: Return to Normal Activity Home Medications: Medications to take at Discharge Duloxetine Hcl [Cymbalta] 60 mg PO DAILY 01/18/14 glipiZIDE [Glucotrol] 10 mg PO DAILY@0730 01/18/14 metFORMIN HCl [Glucophage] 1,000 mg PO BIDCM 01/18/14 Spironolactone [Aldactone] 100 mg PO DAILY 01/14/16 Lubiprostone [Amitiza] 24 mcg PO BID 01/16/18 Omeprazole [Prilosec] 20 mg PO DAILY 01/16/18 Atorvastatin Calcium 20 mg PO QHS 06/21/18 Buspirone HCl 20 mg PO TID 06/30/18 Olanzapine 20 mg PO QHS 10/29/19 Glipizide 5 mg PO DINNER 11/27/19 Clonidine HCl 0.1 mg PO DAILY 12/14/19 Duloxetine HCl [Cymbalta] 30 mg PO DAILY 12/14/19 Fluticasone Propionate [Flovent Hfa] 1 puff INHALATION BID 12/14/19 Folic Acid 1 mg PO DAILY 12/14/19 Hydroxyzine Pamoate 100 mg PO TID PRN PRN 12/14/19 Insulin Aspart [Novolog Flexpen] 4 units SUBCUT ACHS 12/14/19 Acetaminophen [Tylenol Tablet] 650 mg PO Q6H PRN PRN tab 12/15/19 Albuterol Aerosols [Ventolin Aerosols] 2.5 mg INHALATION Q2H PRN PRN vial.neb. 12/15/19 Ipratropium/Albuterol Sulfate [Duoneb] 3 ml INHALATION Q6H.RT ampul.neb 12/15/19 Melatonin 3 mg PO QHS PRN PRN tab 12/15/19 Gabapentin [Neurontin] 300 mg PO 4X/DAY 12/16/19 Nitrofurantoin Macrocrystal [Nitrofurantoin] 100 mg PO BID #4 cap 12/17/19 Prednisone 10 mg PO UD #30 tab 12/17/19 Following Prescrptions Were Given to Patient: Nitrofurantoin Macrocrystal [Nitrofurantoin] 100 mg PO BID #4 cap Prednisone 10 mg PO UD #30 tab Primary Care Physician: Aj Staley MD [Primary Care Provider] - Please follow up with your Primary Care Physician in: 1-2 weeks Please Follow Up With: Psychiatry When: as directed Disposition: Psych Hospital or Unit Minutes spent on discharge:: 35 Patient Condition:: Stable Medical Necessity - Tobacco Use Smoking Status: Current every day smoker Tobacco Use: Cigarettes Meaningful Use Info Meaningful Use Diagnoses (Choose all that apply): None applicable <Mabel Ruiz - Last Filed: 12/17/19 15:45> Discharge Date and Diagnosis - Primary Discharge Diagnosis Active and Suspected Problems (Last Reviewed 12/14/19 @ 15:25 by Sushila Vegas DO) OD (overdose of drug) (Acute) Flexeril Leukocytosis (Acute) no evidence of infection, afebrile Dehydration (Acute) - Secondary Discharge Diagnosis Chronic Problems (Last Reviewed 12/14/19 @ 15:25 by Sushila Vegas DO) Normochromic normocytic anemia (Chronic) unknown etiology Substance abuse (Chronic) Depression (Chronic) Hypertension (Chronic) JOAN (generalized anxiety disorder) (Chronic) Borderline personality disorder (Chronic) not sure this is correct.......she has BPD listed as well Branchial cleft sinus (Chronic) Diabetes mellitus type 2, uncontrolled (Chronic) Chronic neck pain (Chronic) Bilateral carpal tunnel syndrome (Chronic) worse on left Hidradenitis suppurativa (Chronic) Painful recurrent right axillary hidradenitis 6 mm hidradenitis right posterior earlobe 4 cm recurrent hidradenitis posterior neck and occipital scalp History of section (Chronic) History of tonsillectomy (Chronic) Morbid obesity (Chronic) Bipolar affective (Chronic) Osteoarthritis (Chronic) Chronic back pain (Chronic) Smoker (Chronic) F17.200 H/O hidradenitis suppurativa (Chronic) Z87.2 Hospital Course and Treatment Consultations 12/15/19 08:57 Consult: Mental Health/Crisis Routine Reason for consult?: overdose Date Notified:: 12/15/19 Time notified:: 08:57 Summary of Care Provided: Patient seen and examined by Kishan Sneed PA-C under my supervision The patient is a 34 year old F with a past medical history as listed was admitted through the ED on 12/14/2019 with a complaint of intentional overdose. Patient says she had not been taking her Zyprexa and lithium and other psych meds for about a week and had been smoking meth. On the day of presentation, she took about 20 Flexeril. She came into the ED where she was found to be short of breath and wheezing and also leukocytosis. Urine tox showed amphetamines, methamphetamines, benzodiazepines and cannabinoids. She was admitted and managed for intentional overdose. Crisis was consulted. She was also managed for acute asthma exacerbation and put on aerosols and prednisone. Subsequently patient complained of dysuria and was found to have UTI and started on Rocephin. P.o. prednisone was transitioned to IV Solu-Medrol on account of worsening shortness of breath and wheezing. Symptoms improved and shortness of breath improved as well as wheezing. Urine culture E. coli. Patient did require a sitter during her admission. She was evaluated by crisis and deemed as needing inpatient psych evaluation. Patient was discharged to an inpatient psych facility on 12/17/2019. She was discharged with p.o. nitrofurantoin and an oral prednisone taper. She is to follow-up with a psychiatrist upon discharge and also to follow-up with her primary care doctor in 1 to 2 weeks after discharge from the inpatient psych facility. Patient seen and examined prior to discharge. She had a sitter by her but had no complaints and was comfortable. She denied any fever or chills, worsening shortness of breath, chest pain, nausea vomiting, abdominal pain or diarrhea. Review of symptoms otherwise negative. Labs and vitals reviewed. Home medication reviewed and reconciled. o/e: Vital Signs Height 5 ft 5 in Weight: 207 lb Weight in Pounds 207.0 lbs Pulse Ox [AMBULATING on Room 93 Air] Pulse Ox [At REST on Room Air] 95 Pulse Ox 92 Temperature 98.5 F Pulse Rate 95 Respiratory Rate 16 Blood Pressure 134/80 Blood Pressure Position Semi-Fowlers [] General: Alert, Oriented x3, Cooperative HEENT: Atraumatic, PERRLA, EOMI, Normocephalic Neck: Supple, No JVD, Negative Carotid Bruits Lungs: Normal air movement, Wheezes Cardiovascular: Regular rate, No murmurs Abdomen: Bowel Sounds Present, Soft, Non Tender Extremities: No edema, Capillary Refill Less than 3 Seconds Skin: No rashes, No breakdown Musculoskeletal: No Tenderness to Palpation of Joints or Extremities Neurological: Cranial nerves II-XII grossly intact Psych/Mental Status: Normal Affect, Appropriate, Alert and oriented to time, place, person, mood and affect Plan is for discharge to an inpatient psych facility today. Rest as per Kishan Sneed PA-C's notes which I have reviewed and endorsed. - Physical Exam Vitals/I&O's: Vital Signs Temp Pulse Resp BP Pulse Ox 98.5 F 95 16 134/80 H 92 12/17/19 15:00 12/17/19 15:00 12/17/19 15:00 12/17/19 15:00 12/17/19 15:00 Oxygen Flow Rate (L/min) 4 Oxygen Delivery Method Room Air Weight: 207 lb Body Mass Index (BMI) 34.4 Finger Stick Blood Glucose 315 Intake and Output for Last 24 Hours 12/15/19 12/16/19 12/17/19 23:59 23:59 23:59 Intake Total 2595 / 3015 1434 / 1874 947.5 / 947.5 Output Total 1101 / 2201 1700 / 1700 Balance 2594 / 2513 333 / -327 -752.5 / -752.5 Microbiology Past 72 Hours 12/15/19 21:49 Urine, Clean Catch Urine Culture - Final Presumptive E. coli Laboratory Results 12/14/19 12:30: Hepatitis A IgM Ab Negative, Hepatitis A Ab Total Negative, Hep Bs Antigen Negative, Hep B Core Total Ab Negative, Hep B Core IgM Ab Negative, Hepatitis C Ab Confirm 0.1, Hep C Confirm Com 1 Comment 12/16/19 16:54: POC Glucose 342 H 12/16/19 22:18: POC Glucose 219 H 12/17/19 06:46: POC Glucose 191 H 12/17/19 11:12: POC Glucose 239 H Current Medications Acetaminophen (Tylenol) 650 mg PO Q6H PRN PRN PRN Reason: Pain Score 1-10/Temp > 100.7 F Albuterol Sulfate (Ventolin Aerosols) 2.5 mg INHALATION Q6H PRN PRN PRN Reason: SOB/Wheezing Albuterol/Ipratropium (Duoneb) 3 ml INHALATION Q6H.RT [facility] Last Admin: 12/17/19 13:26 Dose: 3 ml Documented by: Atorvastatin Calcium (Lipitor) 20 mg PO QHS [facility] Last Admin: 12/16/19 22:19 Dose: 20 mg Documented by: Bisacodyl (Dulcolax) 5 mg PO DAILY PRN PRN PRN Reason: Constipation Buspirone HCl (Buspar) 5 mg PO TID [facility] Last Admin: 12/17/19 14:05 Dose: 5 mg Documented by: Buspirone HCl (Buspar) 15 mg PO TID [facility] Last Admin: 12/17/19 14:05 Dose: 15 mg Documented by: Clonidine (Catapres) 0.1 mg PO DAILY [facility] Last Admin: 12/17/19 09:01 Dose: 0.1 mg Documented by: Dextrose (D50w Syringe) 0 gm IV X1 PRN; Protocol PRN Reason: Hypoglycemia Duloxetine HCl (Cymbalta) 30 mg PO DAILY [facility] Last Admin: 12/17/19 09:01 Dose: 30 mg Documented by: Duloxetine HCl (Cymbalta) 60 mg PO DAILY [facility] Last Admin: 12/17/19 09:01 Dose: 60 mg Documented by: Enoxaparin Sodium (Lovenox) 40 mg SC DAILY [facility] Last Admin: 12/17/19 09:02 Dose: 40 mg Documented by: Folic Acid (Folic Acid) 1 mg PO DAILYCM [facility] Last Admin: 12/17/19 09:01 Dose: 1 mg Documented by: Glipizide (Glucotrol) 10 mg PO BIDCM [facility] Last Admin: 12/17/19 09:01 Dose: 10 mg Documented by: Glucagon () 1 mg IM .X1 PRN PRN Reason: Hypoglycemia Ceftriaxone Sodium (Rocephin) 1 gm in 50 mls @ 100 mls/hr IV Q24 [facility] Last Infusion: 12/17/19 09:32 Dose: Infused Documented by: Sodium Chloride () 250 mls @ 15 mls/hr IV .[id number] PRN PRN Reason: Saline Flush Last Infusion: 12/17/19 10:42 Dose: 0 mls/hr Documented by: Sodium Chloride () 250 mls @ 15 mls/hr IV .[id number] PRN PRN Reason: Additional IVPB Infusion Insulin Human Lispro (Humalog Kwikpen (Bkc)) 0 unit SC ACHS [facility]; Protocol Last Admin: 12/17/19 11:14 Dose: 3 u Documented by: Loperamide HCl (Imodium) 2 mg PO Q4H PRN PRN PRN Reason: DIARRHEA Last Admin: 12/15/19 21:57 Dose: 2 mg Documented by: Magnesium Hydroxide (Milk Of Magnesia) 30 ml PO DAILY PRN PRN PRN Reason: Constipation Melatonin (Melatonin) 3 mg PO QHS PRN PRN PRN Reason: INSOMNIA Metformin HCl (Glucophage) 1,000 mg PO BIDCM [facility] Last Admin: 12/17/19 09:01 Dose: 1,000 mg Documented by: Methylprednisolone (Solu-Medrol) 40 mg IV Q6 [facility] Last Admin: 12/17/19 11:15 Dose: 40 mg Documented by: Nicotine (Nicoderm Cq (Pbkc)) 21 mg TRANSDERM. DAILY [facility] Last Admin: 12/17/19 09:02 Dose: 21 mg Documented by: Olanzapine (Zyprexa) 20 mg PO QHS [facility] Last Admin: 12/16/19 22:20 Dose: 20 mg Documented by: Ondansetron HCl (Zofran) 4 mg IV Q8H PRN PRN PRN Reason: NAUSEA/VOMITING Last Admin: 12/16/19 23:48 Dose: 4 mg Documented by: Pantoprazole Sodium (Protonix) 20 mg PO DAILY [facility] Last Admin: 12/17/19 09:02 Dose: 20 mg Documented by: Senna/Docusate Sodium (Senokot-S, Lakisha-Colace) 2 tablet PO BID PRN PRN PRN Reason: Constipation Sodium Chloride () 10 - 40 ml IV UD PRN PRN Reason: SALINE FLUSH Last Admin: 12/17/19 11:15 Dose: 20 ml Documented by: Spironolactone (Aldactone) 100 mg PO DAILY [facility] Last Admin: 12/17/19 09:02 Dose: 100 mg Documented by: Code Visit OBSV E&M: [id number] Observation care discharge
--- NOTE | 2019-12-17 15:01 | PHA.DC.MR ---
Pharmacy Service has performed discharge medication reconciliation for this patient upon discharge to inpatient psychiatric facility. The patient's discharge medication list was reviewed for discrepancies and discrepancies were resolved. Home Medications Duloxetine Hcl [Cymbalta] 60 mg PO DAILY 01/18/14 glipiZIDE [Glucotrol] 10 mg PO DAILY@0730 01/18/14 metFORMIN HCl [Glucophage] 1,000 mg PO BIDCM 01/18/14 Spironolactone [Aldactone] 100 mg PO DAILY 01/14/16 Lubiprostone [Amitiza] 24 mcg PO BID 01/16/18 Omeprazole [Prilosec] 20 mg PO DAILY 01/16/18 Atorvastatin Calcium 20 mg PO QHS 06/21/18 Buspirone HCl 20 mg PO TID 06/30/18 Olanzapine 20 mg PO QHS 10/29/19 Glipizide 5 mg PO DINNER 11/27/19 Clonidine HCl 0.1 mg PO DAILY 12/14/19 Duloxetine HCl [Cymbalta] 30 mg PO DAILY 12/14/19 Fluticasone Propionate [Flovent Hfa] 1 puff INHALATION BID 12/14/19 Folic Acid 1 mg PO DAILY 12/14/19 Hydroxyzine Pamoate 100 mg PO TID PRN PRN 12/14/19 Insulin Aspart [Novolog Flexpen] 4 units SUBCUT ACHS 12/14/19 Acetaminophen [Tylenol Tablet] 650 mg PO Q6H PRN PRN tab 12/15/19 Albuterol Aerosols [Ventolin Aerosols] 2.5 mg INHALATION Q2H PRN PRN vial.neb. 12/15/19 Ipratropium/Albuterol Sulfate [Duoneb] 3 ml INHALATION Q6H.RT ampul.neb 12/15/19 Melatonin 3 mg PO QHS PRN PRN tab 12/15/19 Gabapentin [Neurontin] 300 mg PO 4X/DAY 12/16/19 Nitrofurantoin Macrocrystal [Nitrofurantoin] 100 mg PO BID #4 cap 12/17/19 Prednisone 10 mg PO UD #30 tab 12/17/19
[2019-12-17 16:45] LABS: Bedside Glucose 251 mg/dL (70-110)
[2019-12-17] MEDS: Ondansetron 4 MG/2 ML Vial IV (17:03)
[2019-12-17] MEDS: Atorvastatin Calcium 20 MG Tablet PO (22:34)
[2019-12-17] MEDS: OLANZapine 10 MG Tablet 20 MG PO (22:34)
[2019-12-17] MEDS: MELATONIN 3 MG TABLET PO (22:34)
[2019-12-17] MEDS: Acetaminophen 325 MG Tablet 650 MG PO (22:34)
[2019-12-17 22:41] LABS: Bedside Glucose 271 mg/dL (70-110)
[2019-12-18] VITALS (11 sets, daily range): BP systolic 112–125; BP diastolic 60–70; PULSE 71–97; RESP 18–20; TEMP 36.5–37.1; O2SAT 91–96
[2019-12-18] MEDS: Ipratropium/Albuterol Sulfate 3 ML AMPUL.NEB INHALATION ×3 (06:58→18:59)
[2019-12-18] MEDS: busPIRone 15 MG TABLET PO ×3 (07:03→21:09)
[2019-12-18] MEDS: Insulin Lispro 100 UNIT/ML INSULN.PEN SC ×3 (07:03→21:34)
[2019-12-18] MEDS: busPIRone 5 MG Tablet PO ×3 (07:03→21:10)
[2019-12-18 08:55] LABS: Bedside Glucose 246 mg/dL (70-110)
[2019-12-18] MEDS: glipiZIDE 10 MG Tablet PO ×2 (09:08→17:09)
[2019-12-18] MEDS: DULoxetine Hcl 30 MG Capsule PO (09:08)
[2019-12-18] MEDS: Pantoprazole Sodium 20 MG Tablet PO (09:08)
[2019-12-18] MEDS: Spironolactone 50 MG Tablet 100 MG PO (09:09)
[2019-12-18] MEDS: Folic Acid 1 MG Tablet PO (09:09)
[2019-12-18] MEDS: cloNIDine HCl 0.1 MG Tablet PO (09:09)
[2019-12-18] MEDS: metFORMIN HCl 1,000 MG Tablet 1000 MG PO ×2 (09:09→17:09)
[2019-12-18] MEDS: DULoxetine Hcl 60 MG Capsule PO (09:09)
[2019-12-18] MEDS: Enoxaparin 40 MG/0.4 ML Syringe SC (09:09)
[2019-12-18] MEDS: 0.9% Saline Lock 10 ML Syringe IV ×3 (09:13→21:40)
[2019-12-18] MEDS: Ceftriaxone 1 GM/50 ML BAG IV (09:14)
[2019-12-18 11:15] LABS: Bedside Glucose 330 mg/dL (70-110)
--- NOTE | 2019-12-18 11:39 | CASEMGMT ---
Call to [facility], they have beds available but they are waiting on their doctor to evaluate the oxygen testing results that were sent this am by Aurea TAN. She states they will notify us after doctor reviews and accepts. 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 Zenobia TAN CM
[2019-12-18] MEDS: Ondansetron 4 MG/2 ML Vial IV ×2 (12:09→21:35)
[2019-12-18] MEDS: Phenazopyridine 95 MG Tablet PO ×2 (12:15→21:09)
--- NOTE | 2019-12-18 14:32 | PN_ITS ---
<Kishan Sneed - Last Filed: 12/18/19 14:32> Patient Problems: Active and Suspected Problems (Last Reviewed 12/14/19 @ 15:25 by Sushila Vegas DO) OD (overdose of drug) (Acute) Flexeril Leukocytosis (Acute) no evidence of infection, afebrile Dehydration (Acute) Reason for Visit: dysuria Subjective: only complaint today is some ongoing dysuria. No fever/chills. No abd pain. No SOB. Cough is nonproductive. Vitals/I&O's: Vital Signs Temp Pulse Resp BP Pulse Ox 97.7 F L 88 20 H 123/67 H 93 12/18/19 09:00 12/18/19 13:06 12/18/19 13:06 12/18/19 09:00 12/18/19 09:00 Oxygen Flow Rate (L/min) [ 0 AMBULATING on Room Air] Oxygen Flow Rate (L/min) [At 0 REST on Room Air] Oxygen Flow Rate (L/min) 4 Oxygen Delivery Method Room Air Weight: 207 lb Body Mass Index (BMI) 34.4 Finger Stick Blood Glucose 315 Intake and Output for Last 24 Hours 12/16/19 12/17/19 12/18/19 23:59 23:59 23:59 Intake Total 1434 / 1874 1787.5 / 1787.5 672 / 672 Output Total 1101 / 2201 1999 Balance 333 / -327 -212.5 / -212.5 672 / 672 General: Alert, Oriented x3, Cooperative HEENT: Atraumatic, PERRLA, EOMI, Normocephalic Neck: Supple, No JVD, Negative Carotid Bruits Lungs: Clear to auscultation, Normal air movement Cardiovascular: Regular rate, No murmurs Abdomen: Bowel Sounds Present, Soft, Non Tender Extremities: No edema, Capillary Refill Less than 3 Seconds Skin: No rashes, No breakdown Musculoskeletal: No Tenderness to Palpation of Joints or Extremities Neurological: Cranial nerves II-XII grossly intact Psych/Mental Status: Normal Affect, Appropriate, Alert and oriented to time, place, person, mood and affect Microbiology Past 72 Hours 12/15/19 21:49 Urine, Clean Catch Urine Culture - Final Presumptive E. coli Laboratory Results 12/17/19 16:39: POC Glucose 251 H 12/17/19 22:33: POC Glucose 271 H 12/18/19 07:01: POC Glucose 246 H 12/18/19 11:08: POC Glucose 330 H Current Medications Acetaminophen (Tylenol) 650 mg PO Q6H PRN PRN PRN Reason: Pain Score 1-10/Temp > 100.7 F Last Admin: 12/17/19 22:34 Dose: 650 mg Documented by: Albuterol Sulfate (Ventolin Aerosols) 2.5 mg INHALATION Q6H PRN PRN PRN Reason: SOB/Wheezing Albuterol/Ipratropium (Duoneb) 3 ml INHALATION Q6H.RT [facility] Last Admin: 12/18/19 13:06 Dose: 3 ml Documented by: Atorvastatin Calcium (Lipitor) 20 mg PO QHS [facility] Last Admin: 12/17/19 22:34 Dose: 20 mg Documented by: Bisacodyl (Dulcolax) 5 mg PO DAILY PRN PRN PRN Reason: Constipation Buspirone HCl (Buspar) 5 mg PO TID [facility] Last Admin: 12/18/19 14:16 Dose: 5 mg Documented by: Buspirone HCl (Buspar) 15 mg PO TID [facility] Last Admin: 12/18/19 14:16 Dose: 15 mg Documented by: Clonidine (Catapres) 0.1 mg PO DAILY [facility] Last Admin: 12/18/19 09:09 Dose: 0.1 mg Documented by: Dextrose (D50w Syringe) 0 gm IV X1 PRN; Protocol PRN Reason: Hypoglycemia Duloxetine HCl (Cymbalta) 30 mg PO DAILY [facility] Last Admin: 12/18/19 09:08 Dose: 30 mg Documented by: Duloxetine HCl (Cymbalta) 60 mg PO DAILY [facility] Last Admin: 12/18/19 09:09 Dose: 60 mg Documented by: Enoxaparin Sodium (Lovenox) 40 mg SC DAILY [facility] Last Admin: 12/18/19 09:09 Dose: 40 mg Documented by: [facility] Last Admin: 12/18/19 09:09 Dose: 1 mg Documented by: Glip[facility]) [facility] Last Admin: 12/18/19 09:08 Dose: 10 mg Documented by: Glucagon () 1 mg IM .X1 PRN PRN Reason: Hypoglycemia Ceftriaxone Sodium (Rocephin) 1 gm in 50 mls @ 100 mls/hr IV Q24 [facility] Last Infusion: 12/18/19 09:44 Dose: Infused Documented by: Sodium Chloride () 250 mls @ 15 mls/hr IV .[id number] PRN PRN Reason: Saline Flush Last Infusion: 12/18/19 11:12 Dose: 0 mls/hr Documented by: Sodium Chloride () 250 mls @ 15 mls/hr IV .[id number] PRN PRN Reason: Additional IVPB Infusion Insulin Human Lispro (Humalog Kwikpen (Bkc)) 0 unit SC ACHS [facility]; Protocol Last Admin: 12/18/19 11:11 Dose: 5 u Documented by: Loperamide HCl (Imodium) 2 mg PO Q4H PRN PRN PRN Reason: DIARRHEA Last Admin: 12/15/19 21:57 Dose: 2 mg Documented by: Magnesium Hydroxide (Milk Of Magnesia) 30 ml PO DAILY PRN PRN PRN Reason: Constipation Melatonin (Melatonin) 3 mg PO QHS PRN PRN PRN Reason: INSOMNIA Last Admin: 12/17/19 22:34 Dose: 3 mg Documented by: Metformin HCl (Glucophage) 1,000 mg PO BIDCM [facility] Last Admin: 12/18/19 09:09 Dose: 1,000 mg Documented by: Nicotine (Nicoderm Cq (Pbkc)) 21 mg TRANSDERM. DAILY [facility] Last Admin: 12/18/19 09:09 Dose: 21 mg Documented by: Olanzapine (Zyprexa) 20 mg PO QHS [facility] Last Admin: 12/17/19 22:34 Dose: 20 mg Documented by: Ondansetron HCl (Zofran) 4 mg IV Q8H PRN PRN PRN Reason: NAUSEA/VOMITING Last Admin: 12/18/19 12:09 Dose: 4 mg Documented by: Pantoprazole Sodium (Protonix) 20 mg PO DAILY [facility] Last Admin: 12/18/19 09:08 Dose: 20 mg Documented by: Phenazopyridine HCl (Azo Standard) 95 mg PO TID [facility] Stop: 12/19/19 22:01 Last Admin: 12/18/19 14:13 Dose: Not Given Documented by: Prednisone () 40 mg PO DAILY@0800 [facility] Senna/Docusate Sodium (Senokot-S, Lakisha-Colace) 2 tablet PO BID PRN PRN PRN Reason: Constipation Sodium Chloride () 10 - 40 ml IV UD PRN PRN Reason: SALINE FLUSH Last Admin: 12/18/19 12:09 Dose: 20 ml Documented by: Spironolactone (Aldactone) 100 mg PO DAILY [facility] Last Admin: 12/18/19 09:09 Dose: 100 mg Documented by: STROKE Vital Signs/Narrative: Vital Signs Pulse Resp 12/18/19 13:06 88 20 H Medical Necessity - Tobacco Use Smoking Status: Current every day smoker Tobacco Use: Cigarettes Assessment/Plan All Active Problems (Last Reviewed 12/14/19 @ 15:25 by Sushila Vegas DO) OD (overdose of drug) (Acute) Leukocytosis (Acute) Dehydration (Acute) Suicide gesture (Acute) Abscess of breast (Resolved) Abscess of neck (Resolved) Abscess of sternal region (Resolved) Acute kidney injury (Resolved) Cat bite (Resolved) Cat bite of right hand with infection (Resolved) Cat scratch (Resolved) Cat scratch of left hand with infection (Resolved) Cat scratch of right hand with infection (Resolved) History of incision and drainage (Resolved) [place]oud toxicity (Resolved) Necrotizing soft tissue infection (Resolved) Non-pressure chronic ulcer of skin of other sites with fat layer exposed (Resolved) Open wound involving head with neck, complicated (Resolved) Open wound of chest wall, complicated (Resolved) Open wound of left axillary region (Resolved) Open wound of right axillary region with complication (Resolved) Unspecified open wound of unspecified part of head, subsequent encounter (Resolved) Unspecified open wound of unspecified part of neck, subsequent encounter (Resolved) 1. Intentional overdose in the setting of bipolar disorder versus borderline personality disorder-crisis consulted, patient is being referred to inpatient psych at discharge. Per psychiatric medications continued including BuSpar, Cymbalta, Zyprexa 2. Asthma exacerbation-resolved. taper prednisone. continue aerosols and IS. 3. Acute cystitis - nitrofurantoin, azo. cultures available. 4. Polysubstance abuse-tox screen positive for amphetamines, methamphetamines, benzodiazepines, cannabinoids. She does not drink. She does use nicotine. Patch is desired. 5. Type 2 diabetes with morbid obesity-continue metformin, glipizide, sliding scale insulin 6. Homelessness-complicating above with particular concern for compliance issues, patient safety, exposure, and limiting choices of possible interventions. 7. History of hidradenitis 8. Chronic normocytic anemia-B12 and folate done, no deficiency. Iron, TIBC, saturation, and ferritin are all normal. 9. Hypertension-Home meds continued DVT prophylaxis: Lovenox Discharge planning: [facility] refused the patient. This patient was seen by Kishan Sneed PA-C under the supervision of Doctor Joseph <Mabel Ruiz - Last Filed: 12/18/19 16:46> Vitals/I&O's: Vital Signs Temp Pulse Resp BP Pulse Ox 98.8 F 90 18 125/70 H 95 12/18/19 15:00 12/18/19 15:00 12/18/19 15:00 12/18/19 15:00 12/18/19 15:00 Oxygen Flow Rate (L/min) [ 0 AMBULATING on Room Air] Oxygen Flow Rate (L/min) [At 0 REST on Room Air] Oxygen Flow Rate (L/min) 4 Oxygen Delivery Method Room Air Weight: 207 lb Body Mass Index (BMI) 34.4 Finger Stick Blood Glucose 315 Intake and Output for Last 24 Hours 12/16/19 12/17/19 12/18/19 23:59 23:59 23:59 Intake Total 1434 / 1874 1787.5 / 1787.5 672 / 672 Output Total 1101 / 2201 1999 / 1999 Balance 333 / -327 -212.5 / -212.5 672 / 672 Microbiology Past 72 Hours 12/15/19 21:49 Urine, Clean Catch Urine Culture - Final Presumptive E. coli Laboratory Results 12/17/19 16:39: POC Glucose 251 H 12/17/19 22:33: POC Glucose 271 H 12/18/19 07:01: POC Glucose 246 H 12/18/19 11:08: POC Glucose 330 H Current Medications Acetaminophen (Tylenol) 650 mg PO Q6H PRN PRN PRN Reason: Pain Score 1-10/Temp > 100.7 F Last Admin: 12/17/19 22:34 Dose: 650 mg Documented by: Albuterol Sulfate (Ventolin Aerosols) 2.5 mg INHALATION Q6H PRN PRN PRN Reason: SOB/Wheezing Albuterol/Ipratropium (Duoneb) 3 ml INHALATION Q6H.RT [facility] Last Admin: 12/18/19 13:06 Dose: 3 ml Documented by: Atorvastatin Calcium (Lipitor) 20 mg PO QHS [facility] Last Admin: 12/17/19 22:34 Dose: 20 mg Documented by: Bisacodyl (Dulcolax) 5 mg PO DAILY PRN PRN PRN Reason: Constipation Buspirone HCl (Buspar) 5 mg PO TID [facility] Last Admin: 12/18/19 14:16 Dose: 5 mg Documented by: Buspirone HCl (Buspar) 15 mg PO TID [facility] Last Admin: 12/18/19 14:16 Dose: 15 mg Documented by: Clonidine (Catapres) 0.1 mg PO DAILY [facility] Last Admin: 12/18/19 09:09 Dose: 0.1 mg Documented by: Dextrose (D50w Syringe) 0 gm IV X1 PRN; Protocol PRN Reason: Hypoglycemia Duloxetine HCl (Cymbalta) 30 mg PO DAILY [facility] Last Admin: 12/18/19 09:08 Dose: 30 mg Documented by: Duloxetine HCl (Cymbalta) 60 mg PO DAILY [facility] Last Admin: 12/18/19 09:09 Dose: 60 mg Documented by: Enoxaparin Sodium (Lovenox) 40 mg SC DAILY [facility] Last Admin: 12/18/19 09:09 Dose: 40 mg Documented by: Folic [facility] ([facility] Acid) [facility] Last Admin: 12/18/19 09:09 Dose: 1 mg Documented by: Glipizide (Glucotrol) [facility] Last Admin: 12/18/19 09:08 Dose: 10 mg Documented by: Glucagon () 1 mg IM .X1 PRN PRN Reason: Hypoglycemia Sodium Chloride () 250 mls @ 15 mls/hr IV .[id number] PRN PRN Reason: Saline Flush Last Infusion: 12/18/19 11:12 Dose: 0 mls/hr Documented by: Sodium Chloride () 250 mls @ 15 mls/hr IV .[id number] PRN PRN Reason: Additional IVPB Infusion Insulin Human Lispro (Humalog Kwikpen (Bkc)) 0 unit SC ACHS [facility]; Protocol Last Admin: 12/18/19 11:11 Dose: 5 u Documented by: Loperamide HCl (Imodium) 2 mg PO Q4H PRN PRN PRN Reason: DIARRHEA Last Admin: 12/15/19 21:57 Dose: 2 mg Documented by: Magnesium Hydroxide (Milk Of Magnesia) 30 ml PO DAILY PRN PRN PRN Reason: Constipation Melatonin (Melatonin) 3 mg PO QHS PRN PRN PRN Reason: INSOMNIA Last Admin: 12/17/19 22:34 Dose: 3 mg Documented by: Metformin HCl (Glucophage) 1,000 mg PO BIDCM [facility] Last Admin: 12/18/19 09:09 Dose: 1,000 mg Documented by: Nicotine (Nicoderm Cq (Pbkc)) 21 mg TRANSDERM. DAILY [facility] Last Admin: 12/18/19 09:09 Dose: 21 mg Documented by: Nitrofurantoin Macrocrystals (Macrodantin) 100 mg PO BIDCM [facility] Olanzapine (Zyprexa) 20 mg PO QHS [facility] Last Admin: 12/17/19 22:34 Dose: 20 mg Documented by: Ondansetron HCl (Zofran) 4 mg IV Q8H PRN PRN PRN Reason: NAUSEA/VOMITING Last Admin: 12/18/19 12:09 Dose: 4 mg Documented by: Pantoprazole Sodium (Protonix) 20 mg PO DAILY [facility] Last Admin: 12/18/19 09:08 Dose: 20 mg Documented by: Phenazopyridine HCl (Azo Standard) 95 mg PO TID [facility] Stop: 12/19/19 22:01 Last Admin: 12/18/19 14:13 Dose: Not Given Documented by: Prednisone () 40 mg PO DAILY@0800 [facility] Senna/Docusate Sodium (Senokot-S, Lakisha-Colace) 2 tablet PO BID PRN PRN PRN Reason: Constipation Sodium Chloride () 10 - 40 ml IV UD PRN PRN Reason: SALINE FLUSH Last Admin: 12/18/19 12:09 Dose: 20 ml Documented by: Spironolactone (Aldactone) 100 mg PO DAILY [facility] Last Admin: 12/18/19 09:09 Dose: 100 mg Documented by: STROKE Vital Signs/Narrative: Vital Signs Temp Pulse Resp BP Pulse Ox 12/18/19 15:00 98.8 F 90 18 125/70 H 95 01/28/20 13:06 88 20 H Assessment/Plan Patient seen by Kishan Sneed PA-C under my supervision. Patient seen and examined this morning. She had no complaints. She denied any shortness of breath, palpitations or dizziness, chest pain, diarrhea vomiting. Review of symptoms otherwise negative. Labs and vitals reviewed. She was unable to go to the inpatient psych facility 1 day ago. She is awaiting discharge to the inpatient psych facility. o/e: Vital Signs Height 5 ft 5 in Weight: 207 lb Weight in Pounds 207.0 lbs Pulse Ox [AMBULATING on Room 91 Air] Pulse Ox [At REST on Room Air] 92 Pulse Ox 95 Temperature 98.8 F Pulse Rate 90 Respiratory Rate 18 Blood Pressure 125/70 Blood Pressure Position Semi-Fowlers General: Alert, Oriented x3, Cooperative HEENT: Atraumatic, PERRLA, EOMI, Normocephalic Neck: Supple, No JVD, Negative Carotid Bruits Lungs: Normal air movement, Wheezes Cardiovascular: Regular rate, No murmurs Abdomen: Bowel Sounds Present, Soft, Non Tender Extremities: No edema, Capillary Refill Less than 3 Seconds Skin: No rashes, No breakdown Musculoskeletal: No Tenderness to Palpation of Joints or Extremities Neurological: Cranial nerves II-XII grossly intact Psych/Mental Status: Normal Affect, Appropriate, Alert and oriented to time, place, person, mood and affect Plan is for discharge to inpatient psych facility. Patient currently on nitrofurantoin for UTI. To continue on prednisone taper for asthma exacerbation, and continue breathing treatments. Rest of management as per Kishan Sneed PA-C's notes which I have reviewed and endorsed. Code Visit OBSV E&M: 64028 Subsequent observation care L2
--- NOTE | 2019-12-18 14:34 | CASEMGMT ---
Call from [facility] and per intake, they are not able to take pt at this time d/t her oxygen levels which are within normal limits at this time. Per intake, their doctor does not feel comfortable taking pt due to her 'multiple medical problems.' Elsa RESENDEZ aware, voices understanding. Call to Crisis center and Catalina Newsome states that she will continue to attempt to find inpt psych placement for pt at this time. Santiago Hunter-charge, and Aurea TAN updated at this time, voice understanding. Zenobia TAN CM
[2019-12-18 16:51] LABS: Bedside Glucose 85 mg/dL (70-110)
[2019-12-18] MEDS: OLANZapine 10 MG Tablet 20 MG PO (21:10)
[2019-12-18] MEDS: Atorvastatin Calcium 20 MG Tablet PO (21:10)
[2019-12-18 21:16] LABS: Bedside Glucose 285 mg/dL (70-110)
[2019-12-18] MEDS: MELATONIN 3 MG TABLET PO (21:34)
[2019-12-18] MEDS: Acetaminophen 325 MG Tablet 650 MG PO (21:34)
--- NOTE | 2019-12-18 23:07 | NURSING ---
Catalina Newsome with crisis called and she states [facility] in [place] has accepted patient. Nurse to call report to [phone].
--- NOTE | 2019-12-19 01:22 | NURSING ---
This RN told pt that she is getting transfered to [facility] in [place]. Pt was upset that she was going there because she did not have a good experience there before. Told pt that she did not have a choice where she was going because she is pink slipped. Cassie Gasca RN attempted to check vital signs but pt refused
--- NOTE | 2019-12-19 03:41 | NURSING ---
Addendum entered by Vick Navarro 12/19/19 03:43: This event occured at 0130 on 12/19 Original Note: When transport arrived to take pt. pt became combative. Pt was throwing papers and environmental monitoring specialist at staff.
== END 2019-12-19 01:35 ==
LOC: ED 12:18 → PCU 15:24
PROVIDERS: Hospitalist; Internal Medicine; Physician Assistant; Admitting Provider Internal Medicine; Emergency Provider Emergency Medicine; PCP Family Medicine; Visit Provider Student in an Organized Health Care Education/Training Program
DX: F31.9 Bipolar disorder, unspecified (principal); T48.1X2A Poisoning by skeletal muscle relaxants [neuromuscular blocking agents], intentional self-harm, initial encounter; J45.901 Unspecified asthma with (acute) exacerbation; N30.00 Acute cystitis without hematuria; F60.3 Borderline personality disorder; D72.829 Elevated white blood cell count, unspecified; E86.0 Dehydration; B96.20 Unspecified Escherichia coli [E. coli] as the cause of diseases classified elsewhere; I10 Essential (primary) hypertension; F41.1 Generalized anxiety disorder; E11.65 Type 2 diabetes mellitus with hyperglycemia; G89.29 Other chronic pain; L73.2 Hidradenitis suppurativa; M19.90 Unspecified osteoarthritis, unspecified site; F17.210 Nicotine dependence, cigarettes, uncomplicated; F15.10 Other stimulant abuse, uncomplicated; D64.9 Anemia, unspecified; E66.01 Morbid (severe) obesity due to excess calories; F12.10 Cannabis abuse, uncomplicated; F13.10 Sedative, hypnotic or anxiolytic abuse, uncomplicated; Z79.4 Long term (current) use of insulin; Z79.899 Other long term (current) drug therapy; Z59.0 Homelessness; Z68.34 Body mass index [BMI] 34.0-34.9, adult; Z71.3 Dietary counseling and surveillance
CPT/HCPCS: 36415; 80048; 80053; 80061; 80307; 80320; 80329; 81001; 82607; 82728; 82746; 82962; 83036; 83540; 83550; 83735; 84703; 85025; 86704; 86705; 86706; 86708; 86709; 86803; 87086; 87088; 87186; 87340; 94640; 96365; 96366; 96372; 96375; 96376; 99218; 99251; 99285; 99406; J7030; J7050; P9612; A4216; G0378; G0463; G0480; J2405; J3486

== ENCOUNTER 2019-12-19 02:20 | Emergency (ER) | payer MEDICARE, MEDICAID, SELFPAY ==
[2019-12-14 15:59] VITALS: BMI 34.4
--- NOTE | 2019-12-19 03:54 | ED.VIS.GEN ---
History of Present Illness Chief Complaint: Anxiety Informant: Patient, [employer] Onset: Today Narrative: Patient brought in by transport squad for evaluation of anxiety. Patient was being transferred from the floor to a psychiatric facility in [place]. She became very upset and anxious stating that she did not want to go. Medics state that she started to unbuckle her straps on her cot. They were only approximate 10 minutes away from the hospital so turned around and came back to the ED. They feel comfortable transporting her if we can medicate her to make her more comfortable for transport. Patient denies chest pain or shortness of breath. She feels very anxious about going to a psychiatric facility. - Past Medical History (1) Suicide gesture Status: Acute (2) Bipolar affective Status: Chronic (3) Borderline personality disorder Status: Chronic Comment: not sure this is correct.......she has BPD listed as well (4) Chronic back pain Status: Chronic (5) Chronic neck pain Status: Chronic (6) Depression Status: Chronic (7) Diabetes mellitus type 2, uncontrolled Status: Chronic (8) JOAN (generalized anxiety disorder) Status: Chronic (9) Hypertension Status: Chronic Past Medical History - Allergies and Home Meds Allergies/Adverse Reactions: Allergies lamotrigine [From Lamictal] Allergy (Mild, Verified 11/26/19 19:41) Rash adhesive tape Allergy (Verified 11/26/19 19:41) Rash Primary Care Physician: Aj Staley MD [Primary Care Provider] - Prior records reviewed: Yes Surgical History: tonsillectomy, - - Excisional debridement hydradenitis right axilla, C section Smoking Status: Current every day smoker - Family History Maternal Family History: Family History (Last Reviewed 12/14/19 @ 15:28 by Sushila eVgas DO) Grandmother Thyroid disorder Father Diabetes Heart disease Hypertension High cholesterol Mother Heart disease Hypertension High cholesterol Family History: Reports: Heart Disease, Hypertension Paternal Family History: Family History (Last Reviewed 12/14/19 @ 15:28 by Sushila Vegas DO) Grandmother Thyroid disorder Father Diabetes Heart disease Hypertension High cholesterol Mother Heart disease Hypertension High cholesterol Family History: Reports: Diabetes, Heart Disease, Hypertension Review of Systems General: Denies: Chills, Fever Eyes: Denies: Visual changes - bilaterally ENT: Denies: Bilateral ear pain Respiratory: Reports: Cough. Denies: Dyspnea Gastrointestinal: Denies: Nausea, Vomiting Musculoskeletal: Denies: Extremity Pain Skin: Denies: Rash Neurological: Denies: Headache Psych: Reports: Anxiety Allergy: Denies: Uticaria Physical Exam Inital Vital Signs reviewed: Yes General: Well nourished, Well developed Head: Normocephalic ENT: Moist mucous membranes Neck: Supple Cardiovascular: Regular rate, Regular rhythm Respiratory: No distress, CTA bilaterally Abdomen: Soft, Nontender Neurological: Alert, Oriented x3 Psychological: Tearful, - - Anxious Diagnostic/Tx/Re-eval - Medical Decision Making Patient was given 20 mg IM Geodon. After 20 minutes she is resting comfortably on the cot. She states she does feel better. She apologizes multiple times for her behavior. Transport squad is comfortable continuing transport to [facility]. ED Disposition - Plan for ED Patient: Disposition: Psychiatric Hospital or Unit Diagnosis: Anxiety Referrals: Aj Staley MD [Primary Care Provider] -
== END 2019-12-19 02:43 ==
PROVIDERS: Emergency Provider Emergency Medicine; PCP Family Medicine
DX: F41.1 Generalized anxiety disorder (principal); F31.9 Bipolar disorder, unspecified; F60.3 Borderline personality disorder; M54.9 Dorsalgia, unspecified; M54.2 Cervicalgia; G89.29 Other chronic pain; E11.9 Type 2 diabetes mellitus without complications; I10 Essential (primary) hypertension; F17.200 Nicotine dependence, unspecified, uncomplicated; Z79.4 Long term (current) use of insulin; Z79.899 Other long term (current) drug therapy
CPT/HCPCS: J3486

== ENCOUNTER 2020-01-08 09:15 | Emergency (ER) | payer MEDICARE, MEDICAID, SELFPAY ==
[2020-01-01 10:52] VITALS: BMI 34.4
[2020-01-08 09:15] VITALS: BP 139/93; PULSE 104; RESP 16; TEMP 36.4; BMI 34.9
--- NOTE | 2020-01-08 09:31 | ED.VISSUMM ---
- ER Visit Summary Date of Service: 01/08/20 Chief Complaint: Back pain History of Present Illness: The patient is a 34 F who presents with back pain that is gradually got worse over the last 3 days. Patient states she started a new job 3 days ago. Patient states there is a lot of physical activity with her new job. Patient states her pain is localized to her lower back. Patient describes the pain is sharp. Patient states pain is worse with walking and certain movements. Patient states the pain improves with certain positions. Patient denies any radiation of the pain. Patient denies any bowel or bladder changes. Patient denies any saddle anesthesia. Physical Examination: Vital signs are stable. Patient is afebrile. Patient is in no acute distress. Musculoskeletal exam reveals tenderness and spasm of the lumbar paraspinal muscles, worse on the left. There is no bony crepitance or step-off. There is no edema or ecchymosis. There is no midline tenderness. Range of motion was limited in all motions of the lumbar spine secondary to pain. Strength is 5/5 bilaterally in the lower extremities. There are no sensory deficits noted. Deep tendon reflexes are 2+/4 bilaterally in the lower extremities. Emergency Department Course and Treatment: Patient was given injections of Toradol and Norflex here. Patient was given prescription for Naprosyn. Patient was instructed to use ice to the area. Patient was instructed to follow-up with her primary care physician in 5 to 7 days. Patient understood and was agreeable with the plan. All questions were answered. Disposition: Discharge home Impression: Lumbosacral strain This note was generated with [employer] dictation software. It may contain incorrect words, spelling, and punctuation that were not noted in review of the chart prior to signing ED Disposition - Plan for ED Patient: Disposition: Home or Assisted Living Diagnosis: Lumbosacral strain Instructions: Back Sprain/Strain Prescriptions: Naproxen [Naprosyn] 500 mg PO BID PRN #20 tab Prescription Printed Referrals: Aj Staley MD [Primary Care Provider] - 5-7 Days
[2020-01-08] MEDS: Orphenadrine 60 MG/2 ML Ampul IM (09:42)
[2020-01-08] MEDS: Ketorolac 60 MG/2 ML Vial IM (09:42)
== END 2020-01-08 10:14 | disposition home or self-care (01) ==
LOC: ED 09:50
PROVIDERS: Emergency Provider Emergency Medicine; PCP Family Medicine
DX: S39.012A Strain of muscle, fascia and tendon of lower back, initial encounter (principal); M62.830 Muscle spasm of back; X58.XXXA Exposure to other specified factors, initial encounter; Y93.9 Activity, unspecified; Y92.9 Unspecified place or not applicable; Y99.9 Unspecified external cause status; E11.40 Type 2 diabetes mellitus with diabetic neuropathy, unspecified; R05 Cough; E66.9 Obesity, unspecified; Z72.0 Tobacco use; Z79.4 Long term (current) use of insulin; Z79.899 Other long term (current) drug therapy
CPT/HCPCS: 96372; 99282

== ENCOUNTER 2020-01-10 12:37 | Emergency (ER) | payer MEDICARE, MEDICAID, SELFPAY ==
[2020-01-10 12:38] VITALS: BP 120/63; PULSE 100; RESP 18; TEMP 36.4; O2SAT 100; BMI 34.9
--- NOTE | 2020-01-10 13:37 | ED.DCSUM_ITS ---
- ER Visit Summary Date of Service: 01/10/20 Chief Complaint: [Back pain] History of Present Illness: The patient is a 34 F [presents to the emergency department complaint of back pain that started a week ago. Patient was seen in the emergency department within the last week for the same complaint and was treated with a prescription for naproxen which really has not helped her pain. Patient denies any trauma to her back. 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 Patient used to be in pain management at about 2 years ago. Patient states that she has neuropathy in her legs that is chronic a nd at times does have some pain rating down her left leg. She denies weakness in extremity. She denies any change in bowel bladder function. Denies any fevers. She denies urinary symptoms.] Physical Examination: [HEENT-PERRLA, EOMI. Cranial nerves II through XII grossly intact. TMs clear. Mucous membranes moist. No adenopathy. Cardiovascular-regular rate and rhythm without murmur or ectopy Lungs-clear to auscultation, chest wall stable without crepitus or subcu emphysema Abdomen-normoactive bowel sounds, soft, nontender, no rebound or rigidity, no peritoneal signs. Back exam-patient has tenderness diffusely about the left lumbar paraspinal musculature as well as the thoracic paraspinal musculature. She has positive straight leg raise at 60 degrees on the left while sitting. Deep tendon reflexes are plus 2 out of 4 bilaterally at the patella and Achilles. Patient has normal L5 extension bilaterally. Patient has normal sensation to light touch. No saddle anesthesia. Extremities-intact ?4, normal range of motion, normal pulses, atraumatic] Test Results: [None indicated] Emergency Department Course and Treatment: [Patient will be given a prescription for Flexeril as well as 10 [place] for severe pain. Patient advised to follow-up with primary care physician admission nurse coordinator for no doc. I did review patient's last MRI from June 2019 which showed resolution of L5-S1 central disc herniation. Nothing else acute on that exam. Feel any further imaging is indicated at this time.] Treatment Plan: [ home in stable condition with prescription for Flexeril and 10 [place] for severe pain.] Disposition: [Discharged home in stable condition] Impression: [Acute exacerbation of chronic back pain] This note was generated with Rayn dictation software. It may contain incorrect words, spelling, and punctuation that were not noted in review of the chart prior to signing ED Disposition - Plan for ED Patient: Referrals: Aj Staley MD [Primary Care Provider] -
--- NOTE | 2020-01-10 13:45 | DCINST.ED_ITS ---
ED Disposition - Plan for ED Patient: Instructions: BACK PAIN (Acute or Chronic) Prescriptions: cycloBENZAPRine HCl [Flexeril] 10 mg PO TID PRN #20 tab PRN Reason: Muscle Spasm Prescription Printed Hydrocodone Bitart/Apap 5-325 [[place] 5MG-325MG] 1 tab PO Q4H PRN PRN 2 Days #10 tab PRN Reason: Pain Prescription Printed Referrals: Aj Staley MD [Primary Care Provider] - Byron Rivas MD [STAFF PHYSICIAN] - 3-5 Days
[2020-01-10] MEDS: HYDROcodone Bitartrate/Apap 5/325 Tablet PO (13:52)
== END 2020-01-10 13:56 | disposition home or self-care (01) ==
PROVIDERS: Emergency Provider Emergency Medicine; PCP Family Medicine
DX: M54.9 Dorsalgia, unspecified (principal); G89.29 Other chronic pain; E11.40 Type 2 diabetes mellitus with diabetic neuropathy, unspecified; Z72.0 Tobacco use; Z79.4 Long term (current) use of insulin; Z79.899 Other long term (current) drug therapy
CPT/HCPCS: 99283

== ENCOUNTER 2020-01-22 21:20 | Emergency (ER) | payer MEDICARE, SELFPAY ==
[2020-01-16 11:24] VITALS: BMI 36.2
[2020-01-22 21:21] VITALS: BP 150/96; PULSE 103; RESP 18; TEMP 35.9; O2SAT 100; BMI 41.5
--- NOTE | 2020-01-22 21:35 | ED.RN ---
PT using an accent to speak. States she hasn't been taking her medications x unknown days. PT not willing/able to answer if she smokes or uses drugs/alcohol. When RN makes a true statement, PT states it was a lie. PT began grasping at magnets and unknown substances that they put into her clothes. PT took her clothes off to rid herself of these contaminated clothes. 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 Dr. Siknner walked into room to evaluate patient. PT uncooperative. PT not getting into bed. Dr. Lowe called for restraints where were applied to all four limbs with police at bedside.
--- NOTE | 2020-01-22 21:41 | EKG12_ITS ---
Test Reason : OVERDOSE Blood Pressure : / mmHG Vent. Rate : 102 BPM Atrial Rate : 102 BPM P-R Int : 172 ms QRS Dur : 084 ms QT Int : 388 ms P-R-T Axes : 057 065 044 degrees QTc Int : 505 ms Sinus tachycardia Otherwise normal ECG Confirmed by CHAIM HAIR ([id number]), city editor LEVI MARIE ([id number]) on 01/23/2020 2:25:05 PM Referred By: Confirmed By:CHAIM HAIR
[2020-01-22] MEDS: Ziprasidone IM 20 MG/ML VIAL IM (22:29)
--- NOTE | 2020-01-22 22:31 | ED.RN ---
PT continues to fight against restraints. aware, new order placed.
[2020-01-22 22:42] VITALS: BP 133/81; PULSE 108; RESP 19
[2020-01-22 23:04] VITALS: BP 148/73; PULSE 112; RESP 30; O2SAT 98
[2020-01-22 23:04] LABS: Absolute Lymphocyte Count 3.73 X10^3/uL (0.83-4.51); Absolute Neutrophil Count 12.4 X10^3/uL (2.0-7.7); Basophil% 0.6 % (0-1); Eosinophil# 0.18 X10^3/uL; Hematocrit 35.7 % (37-47); Hemoglobin 11.7 g/dL (12.0-15.0); Lymphocyte # 3.73 X10^3/ul (4.0); Lymphocyte % 21.1 % (19-41); Mean Corp Hgb Conc 32.8 g/dL (32-36); Mean Corpuscular Hgb 29.5 pg (27.0-32.0); Mean Corpuscular Volume 89.9 fL (81-99); Mean Platelet Vol. 8.5 fl (6.2-12.0); Monocyte# 1.18 X10^3/uL; Monocyte% 6.7 % (0-10); NRBC Flagged by Analyzer 0 % (0-5); Neutrophil # 12.39 X10^3/uL (2.7-7.7); Neutrophil % 70.1 % (47-70); Platelet Count 409 K/mm3 (150-450); RBC Distribution Width CV 15.3 % (11.6-14.6); RBC Distribution Width SD 50.1 fl (35.1-43.9); Red Blood Count 3.97 M/mm3 (4.2-5.4); White Blood Count 17.7 K/mm3 (4.4-11.0)
[2020-01-22] MEDS: 0.9% Normal Saline 1,000 ML 150 ML IV (23:04)
[2020-01-22 23:15] LABS: Internal QC Validated? YES +Cl - CLEAR BKGD; Pregnancy, Serum, hCG Quali. NEGATIVE Negative
[2020-01-22 23:22] LABS: ALB/GLOB Ratio 1.2 RATIO (0.9-2.4); AST(SGOT) 20 U/L (15-37); Alanine Aminotransfer ALT/SGPT 35 U/L (13-56); Albumin, Serum 4.3 g/dL (3.2-5.0); Alkaline Phosphatase 76 U/L (45-117); Anion Gap 9 (5-15); BUN 15 mg/dL (7-18); BUN/Creat Ratio 14.6 RATIO (10-20); Calcium,Total 9.7 mg/dL (8.5-10.1); Chloride 107 mmol/L (98-107); Creatinine, Serum 1.03 mg/dL (0.55-1.02); EST Glomerular Filtration Rate 65 mL/min (>60); Est Glom Filt Rate - Afr Amer 78 mL/min (>60); Globulin 3.6 g/dL (2.2-4.2); Glucose 133 mg/dL (74-106); Potassium 3.2 mmol/L (3.5-5.1); Protein, Total 7.9 g/dL (6.4-8.2); Sodium Level 139 mmol/L (136-145)
[2020-01-22 23:47] LABS: Bacteria 0 SEEN /hpf (None Seen); Mucous, Urine 0 SEEN /hpf (<or=2+)
[2020-01-22 23:52] LABS: Color, Urine Straw (Yellow); Glucose, Dipstick Normal (Normal); Leukocyte Esterase-Dipstick Negative /ul (Negative); Nitrite-Dipstick Negative (Negative); Occult Blood-Urine Negative /ul (Negative); Protein-Dipstick 30 mg/dl (Negative); Urine Clarity Clear (Clear); Urine Urobilinogen 1 mg/dl (Normal)
[2020-01-22 23:53] LABS: Ketone-Dipstick 150 mg/dl (Negative); Urine Bilirubin Dipstick 1 mg/dL (Negative)
[2020-01-22] MEDS: 0.9% Normal Saline 1,000 ML 999 ML IV (23:55)
[2020-01-22 23:59] LABS: Amorphous Sediment 1+; Red Blood Cells-Urine 0-5 SEEN /hpf (0-5); Squamous Epithelial Cells - UA 5-10 SEEN /hpf (5-10); Transitional Epithelial - Ur 5-10 SEEN /hpf (0-5); White Blood Cells 5-10 SEEN /hpf (0-5)
[2020-01-23] VITALS (8 sets, daily range): BP systolic 108–133; BP diastolic 70–78; PULSE 94–100; RESP 16–18; TEMP 36.6; O2SAT 97–100
[2020-01-23 00:03] LABS: Acetaminophen (Tylenol) Level < 2.0 ug/mL (10.0-30.0); Alcohol, Blood (Medical)-Serum < 3.0 mg/dL; Salicylate 2.9 mg/dL (2.8-20.0)
[2020-01-23 00:03] LABS: Amphetamine Urine VISTA POSITIVE (<1000 ng/mL); Barbiturate Urine VISTA NEGATIVE (< 200 ng/mL); Benzodiazepine Urine VISTA NEGATIVE (< 200 ng/mL); Cocaine Urine VISTA NEGATIVE (< 300 ng/mL); Ecstacy Urine VISTA POSITIVE (< 500 ng/mL); Methadone Urine VISTA NEGATIVE (< 300 ng/mL); PCP Urine VISTA NEGATIVE (< 25 ng/mL); THC Urine VISTA POSITIVE (< 50 ng/mL); Vista UDS pH Range 5
--- NOTE | 2020-01-23 00:21 | ED.RN ---
CALLED CRISIS TO SEE THIS PT, SUZI IS ACID FILLER
--- NOTE | 2020-01-23 00:21 | ED.VISSUMM ---
- ER Visit Summary Date of Service: 01/23/20 Chief Complaint: Suicidal ideation History of Present Illness: The patient is a 34 F is agitated and unable to give any useful history. Police report that yesterday she she threatened to commit suicide at everyone's house. When they arrived the patient was gone. She went back to every woman's house tonight and was trying to get her medications when the police were called again. Upon their arrival she asked the police to shoot her. She did admit that she had not taken her medications for 5 days. She then took 5 100 mg Thorazine pills in front of them. Physical Examination: Vitals: Stable. Afebrile. General: Well-nourished and well-developed. Head: Normocephalic atraumatic. Neck: Supple, no lymphadenopathy. No JVD. Nontender. Cardiovascular: Tachycardic regular rhythm. No murmurs. Respiratory: No respiratory distress. Clear to auscultation bilaterally. Abdominal: Soft, nontender, nondistended, normal bowel sounds. No guarding, rebound, or peritoneal signs. Back: Nontender. Extremities: Nontender, no edema. Skin: Normal color, no rash. Neurologic: Alert moves all extremities well. Normal gait. Mental status exam: Patient appears older than their stated age. Good posture and grooming. Good eye contact. Increased rate and volume with decreased latency of speech. No homicidal ideation. No auditory or visual hallucinations. Flow of thought is tangential and delusional. Insight and judgment is poor. Test Results: EKG is sinus tach at [address] changes. test is negative. Urinalysis is negative. Chem-7 shows a potassium 3.2, creatinine 1.03, glucose 133. CBC shows a white count of 17.7 with an H&H 11.7 35.7. Talk screen shows THC, amphetamines, and methamphetamines. Blood alcohol level is 0. Aspirin level is 2.9. Tylenol level is less than 2. Emergency Department Course and Treatment: Patient was agitated and would not stay in bed. She was given a dose of Geodon IM. She is resting more comfortably. Treatment Plan: Patient will require hospitalization. She complained of suicidal ideation yesterday. She tried to get the police to shoot her and then took an intentional overdose in front of them. She will be discussed the counseling center and admitted to a psychiatric hospital for further evaluation and treatment. Disposition: Pending Impression: 1. Suicidal ideation. 2. Polysubstance abuse. This note was generated with [employer] dictation software. It may contain incorrect words, spelling, and punctuation that were not noted in review of the chart prior to signing ED Disposition - Plan for ED Patient: Referrals: Aj Staley MD [Primary Care Provider] -
--- NOTE | 2020-01-23 01:21 | ED.RN ---
CRISIS ON SITE
--- NOTE | 2020-01-23 06:39 | ED.RN ---
2359: PT very compliant during straight cath. PT calm and cooperative. Restraints removed from all four extremities.
== END 2020-01-23 08:05 ==
LOC: ED 21:43
PROVIDERS: Emergency Provider Emergency Medicine; PCP Family Medicine
DX: R45.851 Suicidal ideations (principal); F19.10 Other psychoactive substance abuse, uncomplicated; R45.1 Restlessness and agitation; R00.0 Tachycardia, unspecified
CPT/HCPCS: 80053; 80307; 80320; 80329; 81001; 84703; 85025; 93005; 96360; 96361; 96372; 99285; J7030; G0480; J3486

== ENCOUNTER → 2020-06-27 13:15 | Outpatient (CLI) | payer MEDICARE, MEDICAID, SELFPAY ==
[2020-06-27 14:08] LABS: Creatinine, Serum 1.01 mg/dL (0.55-1.02); EST Glomerular Filtration Rate 66 mL/min (>60); Est Glom Filt Rate - Afr Amer 80 mL/min (>60)
== END ==
PROVIDERS: Referring Provider Psychiatry & Neurology Psychiatry; Visit Provider Psychiatry & Neurology Psychiatry
DX: Z79.899 Other long term (current) drug therapy (principal)
CPT/HCPCS: 36415; 80178; 82565; 84443

== ENCOUNTER 2020-07-08 13:34 | Emergency (ER) | payer MEDICARE, MEDICAID, SELFPAY ==
[2020-07-08] VITALS (7 sets, daily range): BP systolic 147–152; BP diastolic 96–105; PULSE 101–103; RESP 16–20; TEMP 36.1–36.7; O2SAT 96–98; BMI 38.7
--- NOTE | 2020-07-08 14:25 | ED.VIS.PSYCH ---
History of Present Illness Chief Complaint: Suicidal Informant: Patient Onset: - - unk Associated Symptoms: Suicidal Thoughts, Auditory Hallucinations Specific plan (suicidal thought): see below Narrative: Patient states it is my time to and when asked how she knows this, she states that her big brother told her and she receives a signal from electric current coming from her purse. She states she has bipolar and diabetic, she takes medicines for those things, however she has no idea what her blood sugars are since she does not check them. When asked if she has any recent illness and on review of systems, she states that she hurts all over her body including her back, but not necessarily her chest or abdomen/pelvis, she has no idea how long it has bothered her. She denies any other new symptoms. Police brought her by pink slip. The write that they were dispatched to a disturbance and upon arrival they made contact with her and she told the police that she wanted to kill her self and told them that she was going to tell them that she had a gun so they would shoot her and it would be suicide by gyroscopic engineering technician situation. She also told him she was going to take a bunch of pills and jump off of a bridge, told him also that her purse was bugged and that big brother is always watching. - Past Medical History (1) Bipolar affective Status: Chronic (2) Borderline personality disorder Status: Chronic Comment: not sure this is correct.......she has [employer] listed as well (3) Depression Status: Chronic (4) Diabetes mellitus type 2, uncontrolled Status: Chronic (5) JOAN (generalized anxiety disorder) Status: Chronic (6) H/O hidradenitis suppurativa Status: Chronic Comment: Z87.2 (7) Hypertension Status: Chronic (8) Morbid obesity Status: Chronic (9) Osteoarthritis Status: Chronic Past Medical History - Allergies and Home Meds Allergies/Adverse Reactions: Allergies lamotrigine [From Lamictal] Allergy (Mild, Verified 07/08/20 13:51) Rash adhesive tape Allergy (Verified 07/08/20 13:51) Rash Primary Care Physician: Care Physician,No Primary [Primary Care Provider] - Surgical History: tonsillectomy, - - Excisional debridement hydradenitis right axilla, C section Smoking Status: Current every day smoker Alcohol: Occasional - last drink more than 24 hrs ago Drugs: Marijuana, - - methamphetamine - Family History Maternal Family History: Family History (Last Reviewed 01/18/20 @ 20:[address] Phoenix Boswell MD) Grandmother Thyroid disorder Father Diabetes Heart disease Hypertension High cholesterol Mother Heart disease Hypertension High cholesterol Family History: Reports: Heart Disease, Hypertension Paternal Family History: Family History (Last Reviewed 01/18/20 @ 20:[address] Phoenix Boswell MD) Grandmother Thyroid disorder Father Diabetes Heart disease Hypertension High cholesterol Mother Heart disease Hypertension High cholesterol Family History: Reports: Diabetes, Heart Disease, Hypertension Review of Systems General: Denies: Chills, Fever, Sweats Eyes: Denies: Visual changes - bilaterally, Diplopia ENT: Denies: Rhinorrhea, Sore throat Cardiovascular: Denies: Chest pain, Palpitations Respiratory: Denies: Dyspnea, Cough, Dyspnea on exertion Gastrointestinal: Denies: Abdominal pain, Nausea, Vomiting, Diarrhea, Melena, Hematochezia Genitourinary: Denies: Dysuria, Hematuria, Frequency Musculoskeletal: Reports: Myalgias - I don't have the bravo, Back pain. Denies: Neck pain, Swelling Skin: Denies: Rash, Wounds Neurological: Denies: Headache, Weakness, Numbness Psych: Reports: Suicidal thoughts, Suicidal ideations, - - hallucinations/delusions; see HPI Physical Exam Vital Signs/Narrative: Vital Signs Temp Pulse Resp BP Pulse Ox 07/08/20 13:34 97 F L 101 H 16 152/105 H 98 Inital Vital Signs reviewed: Yes General: Well nourished, Well developed, Obese, - - NAD Head: Normocephalic, Atraumatic Eyes: Perrl, EOMI ENT: Moist mucous membranes, No rhinorrhea Neck: Supple, Nontender, No lymphadenopathy Cardiovascular: Regular rate, Regular rhythm, No murmurs. Negative for: Tachycardia Respiratory: No distress, CTA bilaterally, Chest nontender Abdomen: Soft, Nontender, Nondistended, Normal bowel sounds Back: Nontender, Normal Inspection Extremities: Nontender, No Edema, Healed prior injuries - left wrist Skin: Normal color, No rash, No Trauma Neurological: Alert, Oriented x3, Cranial nerves II-XII grossly intact, Normal Strength, Normal Sensation, Normal Gait Psych: Suicidal thoughts, Hallucinations - pt won't elaborate, Delusions - see HPI, Poor Insight, Limited Judgement, - - odd affect. cooperative. a little paranoid concerning my performing physical exam; after showing her stethoscope, she allows it without issue.. Negative for: Homicidal thoughts Diagnostic/Tx/Re-eval Laboratory Results 07/08/20 07/08/20 07/08/20 14:09 14:09 14:15 WBC 14.4 H RBC 3.65 L Hgb 10.8 L Hct 34.5 L MCV 94.5 MCH 29.6 MCHC 31.3 L RDW Std Deviation 47.9 H RDW Coeff of Radha 14.1 Plt Count 383 MPV 9.6 Immature Gran % (Auto) 0.600 Neut % (Auto) 67.1 Lymph % (Auto) 23.6 [place] % (Auto) 6.5 Eos % (Auto) 1.5 Baso % (Auto) 0.7 Absolute Neuts (auto) 9.6 H Absolute Lymphs (auto) 3.39 Nucleated RBC % 0 Sodium Potassium Chloride Carbon Dioxide Anion Gap BUN Creatinine Estim Creat Clear Calc Est GFR (MDRD) Af Amer Est GFR (MDRD) Non-Af BUN/Creatinine Ratio Glucose Calcium Total Bilirubin AST ALT Alkaline Phosphatase Total Protein Albumin Globulin Albumin/Globulin Ratio TSH Serum , Qual Urine Color Yellow Urine Clarity Sl. Cloudy Urine pH 5.0 Ur Specific [place] 1.025 Urine Protein 500 H Urine Glucose (UA) Normal Urine Ketones 150 H Urine Occult Blood 10 H Urine Nitrite Positive H Urine Bilirubin 1 H Urine Urobilinogen 8 H Ur Leukocyte Esterase 25 H Urine RBC 0-5 SEEN Urine WBC 0-5 SEEN Ur Squamous Epith Cells 0-5 SEEN Urine Bacteria 1+ Urine Mucus 1+ Urine Opiates Screen NEGATIVE Urine Methadone Screen NEGATIVE Ur Barbiturates Screen NEGATIVE Ur Phencyclidine Scrn NEGATIVE Ur Amphetamines Screen POSITIVE H U Methamphetamin-MDMA POSITIVE H U Benzodiazepines Scrn NEGATIVE Urine Cocaine Screen NEGATIVE U Cannabinoids Screen POSITIVE H Ur Drug Screen Comment Ethyl Alcohol 07/08/20 07/08/20 07/08/20 14:15 14:15 14:15 WBC RBC Hgb Hct MCV MCH MCHC RDW Std Deviation RDW Coeff of Radha Plt Count MPV Immature Gran % (Auto) Neut % (Auto) Lymph % (Auto) [place] % (Auto) Eos % (Auto) Baso % (Auto) Absolute Neuts (auto) Absolute Lymphs (auto) Nucleated RBC % Sodium 136 Potassium 2.9 L Chloride 104 Carbon Dioxide 27.0 Anion Gap 5 BUN 9 Creatinine 0.88 Estim Creat Clear Calc 83.53 Est GFR (MDRD) Af Amer 94 Est GFR (MDRD) Non-Af 77 BUN/Creatinine Ratio 10.2 Glucose 159 H Calcium 9.3 Total Bilirubin 0.70 AST 41 H ALT 55 Alkaline Phosphatase 109 Total Protein 7.4 Albumin 4.0 Globulin 3.4 Albumin/Globulin Ratio 1.2 TSH 2.94 Serum , Qual NEGATIVE Urine Color Urine Clarity Urine pH Ur Specific [place] Urine Protein Urine Glucose (UA) Urine Ketones Urine Occult Blood Urine Nitrite Urine Bilirubin Urine Urobilinogen Ur Leukocyte Esterase Urine RBC Urine WBC Ur Squamous Epith Cells Urine Bacteria Urine Mucus Urine Opiates Screen Urine Methadone Screen Ur Barbiturates Screen Ur Phencyclidine Scrn Ur Amphetamines Screen U Methamphetamin-MDMA U Benzodiazepines Scrn Urine Cocaine Screen U Cannabinoids Screen Ur Drug Screen Comment Ethyl Alcohol 13.0 Patient has a nonspecific mild leukocytosis. She has nitrite in her urine but no pyuria. I do not think this represents acute infection, but culture was sent. Her potassium is a little low, this may be related to anxiety, which can give her an acute respiratory alkalosis and a pseudo-hypokalemia, she is not symptomatic from this even if it is real, she was given some oral potassium. Discussed with social work who screened the patient and agrees that she is mentally ill and needs to be hospitalized. Plan is for transfer to a psychiatric facility. ED Disposition - Plan for ED Patient: Disposition: Psychiatric Hospital or Unit Diagnosis: Acute psychosis, Suicidal ideation Referrals: Care Physician,No Primary [Primary Care Provider] -
[2020-07-08 14:43] LABS: Color, Urine Yellow (Yellow); Glucose, Dipstick Normal (Normal); Leukocyte Esterase-Dipstick 25 /ul (Negative); Nitrite-Dipstick Positive (Negative); Occult Blood-Urine 10 /ul (Negative); Protein-Dipstick 500 mg/dl (Negative); Specific Gravity, Urine 1.025 (1.002-1.030); Urine Bilirubin Dipstick 1 mg/dL (Negative); Urine Clarity Sl. Cloudy (Clear); Urine Urobilinogen 8 mg/dl (Normal)
[2020-07-08 14:45] LABS: Ketone-Dipstick 150 mg/dl (Negative)
[2020-07-08 14:49] LABS: Bacteria 1+ /hpf (None Seen); Mucous, Urine 1+ /hpf (<or=2+); Red Blood Cells-Urine 0-5 SEEN /hpf (0-5); Squamous Epithelial Cells - UA 0-5 SEEN /hpf (5-10); White Blood Cells 0-5 SEEN /hpf (0-5)
[2020-07-08 15:00] LABS: Amphetamine Urine VISTA POSITIVE (<1000 ng/mL); Barbiturate Urine VISTA NEGATIVE (< 200 ng/mL); Benzodiazepine Urine VISTA NEGATIVE (< 200 ng/mL); Cocaine Urine VISTA NEGATIVE (< 300 ng/mL); Ecstacy Urine VISTA POSITIVE (< 500 ng/mL); Methadone Urine VISTA NEGATIVE (< 300 ng/mL); PCP Urine VISTA NEGATIVE (< 25 ng/mL); THC Urine VISTA POSITIVE (< 50 ng/mL); Vista UDS pH Range 5
[2020-07-08 15:36] LABS: Absolute Lymphocyte Count 3.39 X10^3/uL (0.83-4.51); Absolute Neutrophil Count 9.6 X10^3/uL (2.0-7.7); Basophil% 0.7 % (0-1); Eosinophil# 0.21 X10^3/uL; Eosinophils% 1.5 % (0-5); Hematocrit 34.5 % (37-47); Hemoglobin 10.8 g/dL (12.0-15.0); Lymphocyte # 3.39 X10^3/ul (4.0); Lymphocyte % 23.6 % (19-41); Mean Corp Hgb Conc 31.3 g/dL (32-36); Mean Corpuscular Hgb 29.6 pg (27.0-32.0); Mean Corpuscular Volume 94.5 fL (81-99); Mean Platelet Vol. 9.6 fl (6.2-12.0); Monocyte# 0.94 X10^3/uL; Monocyte% 6.5 % (0-10); NRBC Flagged by Analyzer 0 % (0-5); Neutrophil # 9.64 X10^3/uL (2.7-7.7); Neutrophil % 67.1 % (47-70); Platelet Count 383 K/mm3 (150-450); RBC Distribution Width CV 14.1 % (11.6-14.6); RBC Distribution Width SD 47.9 fl (35.1-43.9); Red Blood Count 3.65 M/mm3 (4.2-5.4); White Blood Count 14.4 K/mm3 (4.4-11.0)
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
[2020-07-08 16:01] LABS: ALB/GLOB Ratio 1.2 RATIO (0.9-2.4); AST(SGOT) 41 U/L (15-37); Alanine Aminotransfer ALT/SGPT 55 U/L (13-56); Alkaline Phosphatase 109 U/L (45-117); Anion Gap 5 (5-15); BUN 9 mg/dL (7-18); BUN/Creat Ratio 10.2 RATIO (10-20); Calcium,Total 9.3 mg/dL (8.5-10.1); Chloride 104 mmol/L (98-107); Creatinine, Serum 0.88 mg/dL (0.55-1.02); EST Glomerular Filtration Rate 77 mL/min (>60); Est Glom Filt Rate - Afr Amer 94 mL/min (>60); Estimated Creatinine Clearance 83.53 ml/min; Globulin 3.4 g/dL (2.2-4.2); Glucose 159 mg/dL (74-106); Potassium 2.9 mmol/L (3.5-5.1); Protein, Total 7.4 g/dL (6.4-8.2); Sodium Level 136 mmol/L (136-145); Thyroid Stim Hormone (TSH) 2.94 uIU/mL (0.358-3.74)
[2020-07-08 16:19] LABS: Internal QC Validated? YES +Cl - CLEAR BKGD; Pregnancy, Serum, hCG Quali. NEGATIVE Negative
--- NOTE | 2020-07-08 16:24 | CM.ED ---
Social Work Telephone call to Anjali Gary. Referral made. Clinical information faxed. Pending review. Weston Xie MSW, KARLOS
--- NOTE | 2020-07-08 18:15 | CM.ED ---
Social Work This outreach and education social worker checking in with patient. Patient currently sitting in bed picking at patient [facility]. This outreach and education social worker inquiring what patient is doing. Patient states trying to cover up the listening device. Patient states to continue to have suicidal thoughts and to currently be feeling anxious. Patient states I am not doing okay. Patient continues to decline to provide this outreach and education social worker with suicidal plan as I know that game. Patient state I think I need to go somewhere. While patient was talking to this outreach and education social worker patient did not make eye contact and continues to pick at patient [facility]. This outreach and education social worker inquiring if there is anything that the medical team could do to help with patient anxiety, patient is not sure and states again I just need help. Will continue to follow. Weston BARRAGAN, KARLOS
--- NOTE | 2020-07-08 20:02 | CM.ED ---
Social Work Telephone call from AngeliAnjali Connor. Patient has been accepted to the [address] [place] [address] Morris. Nurse to call report to [phone]. Cornelia Slip faxed. Updated patient and medical team. Patient does not have a support person to be called and no contacts are listed on patient chart. PLAN: Transfer to [facility]. Weston BARRAGAN, KARLOS
== END 2020-07-08 21:35 ==
PROVIDERS: Emergency Provider Emergency Medicine
DX: F23 Brief psychotic disorder (principal); R45.851 Suicidal ideations; E87.6 Hypokalemia; F31.9 Bipolar disorder, unspecified; F60.3 Borderline personality disorder; F41.1 Generalized anxiety disorder; I10 Essential (primary) hypertension; E11.9 Type 2 diabetes mellitus without complications; M19.90 Unspecified osteoarthritis, unspecified site; E66.01 Morbid (severe) obesity due to excess calories; F17.200 Nicotine dependence, unspecified, uncomplicated; Z79.4 Long term (current) use of insulin; Z79.899 Other long term (current) drug therapy
CPT/HCPCS: 80053; 80307; 80320; 81001; 84443; 84703; 85025; 87086; 87088; 99285; G0480

== ENCOUNTER → 2020-09-09 | Outpatient (CLI) | payer MEDICARE, MEDICAID, SELFPAY ==
[2020-09-09 10:40] VITALS: BMI 35.9
[2020-09-11 03:07] LABS: Chlamydia By Nucleic Acid AMP Negative (Negative)
[2020-09-11 08:27] LABS: Gonococcus By Nucleic Acid AMP Negative (Negative)
[2020-09-12 09:45] LABS: HPV APTIMA, High Risk Negative (Negative)
== END | disposition home or self-care (01) ==
LOC: LABSPEC 13:02
PROVIDERS: Visit Provider Nurse Practitioner Women's Health
DX: Z12.4 Encounter for screening for malignant neoplasm of cervix (principal); Z11.3 Encounter for screening for infections with a predominantly sexual mode of transmission
CPT/HCPCS: 87491; 87591; 87624; 88175; G0145

== ENCOUNTER 2020-09-20 09:29 | Inpatient (IN) | payer MEDICARE, MEDICAID, SELFPAY ==
[2020-09-09 10:40] VITALS: BMI 35.9
[2020-09-20] VITALS (18 sets, daily range): BP systolic 103–159; BP diastolic 41–129; PULSE 105–119; RESP 13–30; TEMP 30.4–37.5; O2SAT 95–100; BMI 36.9; BMI 36.1
--- NOTE | 2020-09-20 09:54 | RAD_ITS ---
STUDY: X-RAY CHEST REASON FOR EXAM: Female, 35 years old. cough, overdose TECHNIQUE: Single AP portable view of the chest. COMPARISON: 10/05/2019 FINDINGS: The lungs are clear and expanded. There is no demonstrated pleural abnormality. Normal size heart. Normal mediastinum and true. Normal visualized pulmonary arteries. Normal visualized aortic arch and descending thoracic aorta. Normal visualized thoracic spine. Normal visualized ribs, clavicles, and shoulders. There is no demonstrated abnormality of the visualized soft tissue structures of the upper abdomen. RAD/Chest 1 View (Portable) IMPRESSION: Normal x-ray examination of the chest. Electronically Signed: Jason Del Valle MD at 11:38 EDT Tel , Service support ,
--- NOTE | 2020-09-20 09:54 | CT_ITS ---
STUDY: CT BRAIN WITHOUT CONTRAST REASON FOR EXAM: Female, 35 years old. OVERDOSE, FOUND UNCONSCIOUS IN [place]ARK RADIATION DOSAGE (If Supplied By Facility): CTDIvol = ( 44.99 ) mGy, DLP = ( 914.22 ) mGycm TECHNIQUE: Transaxial CT imaging of the brain was performed without administration of intravenous contrast material. Individualized dose optimization techniques were used for this CT. COMPARISON: 01/16/2018 FINDINGS: Normal soft tissue structures. Normal calvarium. Normal size ventricles and extra-axial spaces for the patient''s age. Normal white matter tracts of the cerebral hemispheres. Normal basal ganglia and thalami. Normal brainstem. Normal cerebellum. There is no intracranial hemorrhage. There are no findings of an acute ischemic infarction. Normal visualized paranasal sinuses. CT/Brain/Head without Contrast IMPRESSION: Normal unenhanced CT scan of the brain. Electronically Signed: Jason Del Valle MD at 11:38 EDT Tel , Service support ,
--- NOTE | 2020-09-20 09:55 | EKG12_ITS ---
Test Reason : OD Blood Pressure : / mmHG Vent. Rate : 107 BPM Atrial Rate : 107 BPM P-R Int : 148 ms QRS Dur : 082 ms QT Int : 398 ms P-R-T Axes : 061 078 047 degrees QTc Int : 531 ms Sinus tachycardia Possible Left atrial enlargement Prolonged QT Abnormal ECG Confirmed by JOSE DANIEL MARTE, JAZZY ([id number]), editor department GAYE BONE ([id number]) on 09/23/2020 11:17:59 AM Referred By: SANDRA Confirmed By:JAZZY SKY MD
--- NOTE | 2020-09-20 10:09 | ED.RN ---
kellie shaw applied.
--- NOTE | 2020-09-20 10:18 | ED.VIS.GEN ---
History of Present Illness Chief Complaint: Overdose Narrative: Patient is a 35-year-old female who presents after an intentional drug overdose. [place] was [place] in a park lethargic. She had a medication package with her with her medications broken up by day and time and states that she had taken all of the medications that were opened in the packet that she had not been taking them previously. I am really unable to obtain any further history directly from the patient due to lethargy. Past Medical History - Allergies and Home Meds Allergies/Adverse Reactions: Allergies lamotrigine [From Lamictal] Allergy (Mild, Verified 09/20/20 09:36) Rash adhesive tape Allergy (Verified 09/20/20 09:36) Rash Primary Care Physician: Care Physician,No Primary [Primary Care Provider] - Past Medical History: - - Prior suicide attempt, bipolar per prior records diabetes, morbid obesity Surgical History: tonsillectomy, - - Excisional debridement hydradenitis right axilla, C section Smoking Status: Current every day smoker - Family History Maternal Family History: Family History (Last Reviewed 09/09/20 @ 10:40 by Shreya Rondon) Grandmother Thyroid disorder Father Diabetes Heart disease Hypertension High cholesterol Mother Heart disease Hypertension High cholesterol Family History: Reports: Heart Disease, Hypertension Paternal Family History: Family History (Last Reviewed 09/09/20 @ 10:40 by Shreya Rondon) Grandmother Thyroid disorder Father Diabetes Heart disease Hypertension High cholesterol Mother Heart disease Hypertension High cholesterol Family History: Reports: Diabetes, Heart Disease, Hypertension Review of Systems ROS: Unable to Obtain Physical Exam Vital Signs/Narrative: Vital Signs Temp Pulse Resp BP Pulse Ox 09/20/20 10:10 93.6 F L 108 H 25 H 114/41 L 100 09/20/20 09:30 86.7 F L 115 H 26 H 151/128 H 100 Inital Vital Signs reviewed: Yes General: Obese, - - Patient is lethargic Head: Normocephalic Eyes: EOMI ENT: Moist mucous membranes Neck: Supple Cardiovascular: Regular rhythm, Tachycardia Respiratory: No distress, CTA bilaterally, - - Patient is protecting her airway Abdomen: Soft, Nontender Rectal: Deferred : - - Normal Back: Nontender Extremities: Nontender Skin: Normal color Neurological: - - Patient is lethargic she answers some questions for the nurse she answers no questions for me Diagnostic/Tx/Re-eval Impressions Brain CT 09/20/20 09:54 IMPRESSION: Normal unenhanced CT scan of the brain. Electronically Signed: Jason Del Valle MD at 11:38 EDT Tel , Service support , Chest X-Ray 09/20/20 09:54 IMPRESSION: Normal x-ray examination of the chest. Electronically Signed: Jason Del Valle MD at 11:38 EDT Tel , Service support , 09/20/20 09:54 Brain/Head without Contrast [CT] Stat Chest 1 View (Portable) [RAD] Stat Laboratory Results 09/20/20 09/20/20 09/20/20 09:45 09:45 10:15 WBC RBC Hgb Hct MCV MCH MCHC RDW Std Deviation RDW Coeff of Radha Plt Count MPV Immature Gran % (Auto) Neut % (Auto) Lymph % (Auto) [place] % (Auto) Eos % (Auto) Baso % (Auto) Absolute Neuts (auto) Absolute Lymphs (auto) Nucleated RBC % Sodium Potassium Chloride Carbon Dioxide Anion Gap BUN Creatinine Estim Creat Clear Calc Est GFR (MDRD) Af Amer Est GFR (MDRD) Non-Af BUN/Creatinine Ratio Glucose Lactic Acid Calcium Total Bilirubin AST ALT Alkaline Phosphatase Total Protein Albumin Globulin Albumin/Globulin Ratio Urine Color Yellow Urine Clarity Clear Urine pH 6.5 Ur Specific [place] 1.015 Urine Protein 30 H Urine Glucose (UA) 100 H Urine Ketones 50 H Urine Occult Blood Negative Urine Nitrite Negative Urine Bilirubin Negative Urine Urobilinogen Normal Ur Leukocyte Esterase 25 H Urine RBC 0 SEEN Urine WBC 0-5 SEEN Ur Squamous Epith Cells 0-5 SEEN Urine Bacteria 1+ Urine Mucus 0 SEEN Urine Test Negative Salicylates Urine Opiates Screen NEGATIVE Urine Methadone Screen NEGATIVE Acetaminophen Ur Barbiturates Screen NEGATIVE Ur Phencyclidine Scrn NEGATIVE Ur Amphetamines Screen POSITIVE H U Methamphetamin-MDMA POSITIVE H U Benzodiazepines Scrn NEGATIVE [place] Urine Cocaine Screen NEGATIVE U Cannabinoids Screen NEGATIVE Ur Drug Screen Comment Ethyl Alcohol POC Glucose 186 H 09/20/20 09/20/20 09/20/20 10:40 10:40 10:40 WBC 12.4 H RBC 3.86 L Hgb 11.5 L Hct 35.1 L MCV 90.9 MCH 29.8 MCHC 32.8 RDW Std Deviation 50.1 H RDW Coeff of Radha 15.2 H Plt Count 412 MPV 9.3 Immature Gran % (Auto) 0.600 Neut % (Auto) 74.4 H Lymph % (Auto) 19.2 [place] % (Auto) 5.2 Eos % (Auto) 0.2 Baso % (Auto) 0.4 Absolute Neuts (auto) 9.2 H Absolute Lymphs (auto) 2.39 Nucleated RBC % 0 Sodium 137 Potassium 2.9 L Chloride 108 H Carbon Dioxide 19.0 L Anion Gap 10 BUN 9 Creatinine 1.18 H Estim Creat Clear Calc 59.31 Est GFR (MDRD) Af Amer 67 Est GFR (MDRD) Non-Af 55 L BUN/Creatinine Ratio 7.6 L Glucose 164 H Lactic Acid Calcium 10.0 Total Bilirubin 0.60 AST 30 ALT 34 Alkaline Phosphatase 84 Total Protein 7.3 Albumin 4.0 Globulin 3.3 Albumin/Globulin Ratio 1.2 Urine Color Urine Clarity Urine pH Ur Specific [place] Urine Protein Urine Glucose (UA) Urine Ketones Urine Occult Blood Urine Nitrite Urine Bilirubin Urine Urobilinogen Ur Leukocyte Esterase Urine RBC Urine WBC Ur Squamous Epith Cells Urine Bacteria Urine Mucus Urine Test Salicylates Urine Opiates Screen Urine Methadone Screen Acetaminophen Ur Barbiturates Screen Ur Phencyclidine Scrn Ur Amphetamines Screen U Methamphetamin-MDMA U Benzodiazepines Scrn [place] Urine Cocaine Screen U Cannabinoids Screen Ur Drug Screen Comment Ethyl Alcohol < 3.0 POC Glucose 09/20/20 09/20/20 09/20/20 10:40 10:40 10:40 WBC RBC Hgb Hct MCV MCH MCHC RDW Std Deviation RDW Coeff of Radha Plt Count MPV Immature Gran % (Auto) Neut % (Auto) Lymph % (Auto) [place] % (Auto) Eos % (Auto) Baso % (Auto) Absolute Neuts (auto) Absolute Lymphs (auto) Nucleated RBC % Sodium Potassium Chloride Carbon Dioxide Anion Gap BUN Creatinine Estim Creat Clear Calc Est GFR (MDRD) Af Amer Est GFR (MDRD) Non-Af BUN/Creatinine Ratio Glucose Lactic Acid 4.3 H* Calcium Total Bilirubin AST ALT Alkaline Phosphatase Total Protein Albumin Globulin Albumin/Globulin Ratio Urine Color Urine Clarity Urine pH Ur Specific [place] Urine Protein Urine Glucose (UA) Urine Ketones Urine Occult Blood Urine Nitrite Urine Bilirubin Urine Urobilinogen Ur Leukocyte Esterase Urine RBC Urine WBC Ur Squamous Epith Cells Urine Bacteria Urine Mucus Urine Test Salicylates 3.8 Urine Opiates Screen Urine Methadone Screen Acetaminophen < 2.0 L Ur Barbiturates Screen Ur Phencyclidine Scrn Ur Amphetamines Screen U Methamphetamin-MDMA U Benzodiazepines Scrn [place] 2.30 H* Urine Cocaine Screen U Cannabinoids Screen Ur Drug Screen Comment Ethyl Alcohol POC Glucose 09/20/20 11:03 WBC RBC Hgb Hct MCV MCH MCHC RDW Std Deviation RDW Coeff of Radha Plt Count MPV Immature Gran % (Auto) Neut % (Auto) Lymph % (Auto) [place] % (Auto) Eos % (Auto) Baso % (Auto) Absolute Neuts (auto) Absolute Lymphs (auto) Nucleated RBC % Sodium Potassium Chloride Carbon Dioxide Anion Gap BUN Creatinine Estim Creat Clear Calc Est GFR (MDRD) Af Amer Est GFR (MDRD) Non-Af BUN/Creatinine Ratio Glucose Lactic Acid Calcium Total Bilirubin AST ALT Alkaline Phosphatase Total Protein Albumin Globulin Albumin/Globulin Ratio Urine Color Urine Clarity Urine pH Ur Specific [place] Urine Protein Urine Glucose (UA) Urine Ketones Urine Occult Blood Urine Nitrite Urine Bilirubin Urine Urobilinogen Ur Leukocyte Esterase Urine RBC Urine WBC Ur Squamous Epith Cells Urine Bacteria Urine Mucus Urine Test Salicylates Urine Opiates Screen Urine Methadone Screen Acetaminophen Ur Barbiturates Screen Ur Phencyclidine Scrn Ur Amphetamines Screen U Methamphetamin-MDMA U Benzodiazepines Scrn [place] Urine Cocaine Screen U Cannabinoids Screen Ur Drug Screen Comment Ethyl Alcohol POC Glucose 161 H - Medical Decision Making Patient presents with an overdose of multiple medications. Based on pill counts she may have taken 120 mg of omeprazole, 600 mg of spironolactone, 60 mg of glipizide, 6 mg of folic acid, 360 mg of duloxetine, 480 mg of ziprasidone, 7.8 g of lithium, 130 mg of buspirone, 1300 mg of hydroxyzine, 140 mg of atorvastatin, 20 mg of prazosin, 210 mg of mirtazapine, 6000 mg of Metformin. I did speak to poison control who made multiple recommendations including serial glucose, IV dextrose for hypoglycemia or octreotide for refractory hypoglycemia. He noted we need to monitor EKG for QTC prolongation and correct electrolytes as needed. With the prazosin we need to monitor for hypotension which usually responds well to IV fluids but pressors were indicated if needed. Patient will need serial lactic acids due to the Metformin overdose. We also need to monitor for serotonin syndrome which the treatment of choice would be benzodiazepines. Poison control recommended speaking to nephrology early and dialysis may be indicated for severe lithium toxicity. EKG shows sinus tachycardia at a rate of 107. QTC is 531. Glucose has remained stable during the patient's course here in the emergency department. Labs are notable for lactic acid of greater than 4 which is likely related to Metformin. Her potassium is 2.9. Although uncommon hyperkalemia could potentially be a complication of spironolactone overdose so I started with just 20 mEq IV for replacement for now and we will monitor potassium. Her lithium level currently is 2.3. I did speak to Dr. Augustine of nephrology, I do not believe the patient has an indication for intervention such as dialysis at this point however given the acute overdose her lithium level will need monitored and patient should have another level in several hours. Patient is being treated with IV fluids. Her vitals have remained stable. Her mental status actually is improved and she is answering some questions on reevaluation. She is more alert. I spoke to the hospitalist who agrees to admit. ED Disposition - Plan for ED Patient: Disposition: Acute Care Hospital [facility] Diagnosis: Drug overdose, intentional, Suicide attempt Referrals: Care Physician,No Primary [Primary Care Provider] -
[2020-09-20 10:21] LABS: Bedside Glucose 186 mg/dL (70-110)
[2020-09-20 10:42] LABS: Mucous, Urine 0 SEEN /hpf (<or=2+); Red Blood Cells-Urine 0 SEEN /hpf (0-5)
[2020-09-20 10:47] LABS: Color, Urine Yellow (Yellow); Glucose, Dipstick 100 mg/dl (Normal); Ketone-Dipstick 50 mg/dl (Negative); Leukocyte Esterase-Dipstick 25 /ul (Negative); Nitrite-Dipstick Negative (Negative); Occult Blood-Urine Negative /ul (Negative); Protein-Dipstick 30 mg/dl (Negative); Specific Gravity, Urine 1.015 (1.002-1.030); Urine Bilirubin Dipstick Negative (Negative); Urine Clarity Clear (Clear); Urine Urobilinogen Normal (Normal); Urine pH 6.5 (5.0 - 8.0)
[2020-09-20 10:49] LABS: Internal QC Validated? YES +Cl - CLEAR BKGD; Pregnancy, Urine Negative Negative
[2020-09-20] MEDS: 0.9% Normal Saline 1,000 ML 999 ML IV ×2 (10:49→12:30)
[2020-09-20 10:54] LABS: White Blood Cells 0-5 SEEN /hpf (0-5)
[2020-09-20 10:55] LABS: Bacteria 1+ /hpf (None Seen); Squamous Epithelial Cells - UA 0-5 SEEN /hpf (5-10)
[2020-09-20 11:05] LABS: Absolute Lymphocyte Count 2.39 X10^3/uL (0.83-4.51); Absolute Neutrophil Count 9.2 X10^3/uL (2.0-7.7); Basophil# 0.05 X10^3/uL; Basophil% 0.4 % (0-1); Eosinophil# 0.03 X10^3/uL; Eosinophils% 0.2 % (0-5); Hematocrit 35.1 % (37-47); Hemoglobin 11.5 g/dL (12.0-15.0); Lymphocyte # 2.39 X10^3/ul (4.0); Lymphocyte % 19.2 % (19-41); Mean Corp Hgb Conc 32.8 g/dL (32-36); Mean Corpuscular Hgb 29.8 pg (27.0-32.0); Mean Corpuscular Volume 90.9 fL (81-99); Mean Platelet Vol. 9.3 fl (6.2-12.0); Monocyte# 0.65 X10^3/uL; Monocyte% 5.2 % (0-10); NRBC Flagged by Analyzer 0 % (0-5); Neutrophil # 9.24 X10^3/uL (2.7-7.7); Neutrophil % 74.4 % (47-70); Platelet Count 412 K/mm3 (150-450); RBC Distribution Width CV 15.2 % (11.6-14.6); RBC Distribution Width SD 50.1 fl (35.1-43.9); Red Blood Count 3.86 M/mm3 (4.2-5.4); White Blood Count 12.4 K/mm3 (4.4-11.0)
[2020-09-20 11:06] LABS: Bedside Glucose 161 mg/dL (70-110)
[2020-09-20 11:07] LABS: Amphetamine Urine VISTA POSITIVE (<1000 ng/mL); Barbiturate Urine VISTA NEGATIVE (< 200 ng/mL); Benzodiazepine Urine VISTA NEGATIVE (< 200 ng/mL); Cocaine Urine VISTA NEGATIVE (< 300 ng/mL); Ecstacy Urine VISTA POSITIVE (< 500 ng/mL); Methadone Urine VISTA NEGATIVE (< 300 ng/mL); PCP Urine VISTA NEGATIVE (< 25 ng/mL); THC Urine VISTA NEGATIVE (< 50 ng/mL); Vista UDS pH Range 6
[2020-09-20 11:10] LABS: ALB/GLOB Ratio 1.2 RATIO (0.9-2.4); AST(SGOT) 30 U/L (15-37); Alanine Aminotransfer ALT/SGPT 34 U/L (13-56); Alkaline Phosphatase 84 U/L (45-117); Anion Gap 10 (5-15); BUN 9 mg/dL (7-18); BUN/Creat Ratio 7.6 RATIO (10-20); Chloride 108 mmol/L (98-107); Creatinine, Serum 1.18 mg/dL (0.55-1.02); EST Glomerular Filtration Rate 55 mL/min (>60); Est Glom Filt Rate - Afr Amer 67 mL/min (>60); Estimated Creatinine Clearance 59.31 ml/min; Globulin 3.3 g/dL (2.2-4.2); Glucose 164 mg/dL (74-106); Potassium 2.9 mmol/L (3.5-5.1); Protein, Total 7.3 g/dL (6.4-8.2); Sodium Level 137 mmol/L (136-145)
[2020-09-20 11:16] LABS: Lactic Acid 4.3 mmol/L (0.4-1.9)
[2020-09-20 11:21] LABS: Acetaminophen (Tylenol) Level < 2.0 ug/mL (10.0-30.0); Salicylate 3.8 mg/dL (2.8-20.0)
[2020-09-20 11:29] LABS: Alcohol, Blood (Medical)-Serum < 3.0 mg/dL
[2020-09-20] MEDS: Ondansetron 4 MG/2 ML Vial IV (12:06)
[2020-09-20] MEDS: Potassium Chloride 10mEq/100mL 10 MEQ/100 ML IV.SOLN. 100 MEQ IV BOLUS ×2 (12:06→13:23)
[2020-09-20 12:21] LABS: Bedside Glucose 141 mg/dL (70-110)
[2020-09-20] MEDS: Dextrose 5%/0.9% NaCl 1,000 ML 125 ML IV ×2 (14:20→22:31)
[2020-09-20 14:47] LABS: Reflex Lactate? Y
--- NOTE | 2020-09-20 16:12 | EKG12_ITS ---
Test Reason : RHYTHM CHANGE Blood Pressure : / mmHG Vent. Rate : 119 BPM Atrial Rate : 119 BPM P-R Int : 142 ms QRS Dur : 072 ms QT Int : 362 ms P-R-T Axes : 051 079 058 degrees QTc Int : 509 ms Sinus tachycardia Confirmed by JOLEEN MARTE, ANNIE ([id number]), associate editor GAYE BONE ([id number] on 09/24/2020 10:59:33 AM Referred By: CONSUELO Confirmed By:ANNIE GOODRICH MD
[2020-09-20 16:16] LABS: Bedside Glucose 90 mg/dL (70-110)
[2020-09-20 16:16] LABS: Bedside Glucose 100 mg/dL (70-110)
[2020-09-20 16:52] LABS: Lactic Acid 1.2 mmol/L (0.4-1.9)
[2020-09-20 16:52] LABS: Anion Gap 5 (5-15); BUN 9 mg/dL (7-18); BUN/Creat Ratio 9.1 RATIO (10-20); Calcium,Total 9.2 mg/dL (8.5-10.1); Chloride 112 mmol/L (98-107); Creatinine, Serum 0.99 mg/dL (0.55-1.02); EST Glomerular Filtration Rate 67 mL/min (>60); Est Glom Filt Rate - Afr Amer 81 mL/min (>60); Estimated Creatinine Clearance 67.84 ml/min; Glucose 78 mg/dL (74-106); Sodium Level 139 mmol/L (136-145)
[2020-09-20 17:03] LABS: CPK Total, Creatine Kinase 434 U/L (26-192); Magnesium 1.8 mg/dL (1.6-2.6)
[2020-09-20 18:14] LABS: Lithium 2.61 mmol/L (0.60-1.20)
--- NOTE | 2020-09-20 18:28 | PCM.HP.STD ---
History of Present Illness Date of Admission: 09/20/20 Chief Complaint: Intentional overdose The patient is a 35 year old F with a PMH as below who was found in a park very lethargic. Apparently she had her medication package with her and all of the medications have been taken for that week. She is very lethargic and noncommunicative and further history is unable to be obtained. The ED physician did call poison control who recommended following the lithium level as well as monitoring her blood sugars every hour given the fact that she is on glipizide and Metformin. She does seem to be improving a little bit therefore she can go to PCU as a stepdown side of the ICU. Past Medical History Past Medical History (Chronic Problems): Chronic Problems (Last Reviewed 09/09/20 @ 10:40 by Shreya Rondon) Cellulitis of right ear (Chronic) 1 cm infected cystic lesion right posterior ear Mass of right ear auricle (Chronic) 1 cm infected cystic lesion right posterior ear Diabetes mellitus (Chronic) Normochromic normocytic anemia (Chronic) unknown etiology Substance abuse (Chronic) Depression (Chronic) Hypertension (Chronic) JOAN (generalized anxiety disorder) (Chronic) Borderline personality disorder (Chronic) not sure this is correct.......she has BPD listed as well Branchial cleft sinus (Chronic) Diabetes mellitus type 2, uncontrolled (Chronic) Chronic neck pain (Chronic) Bilateral carpal tunnel syndrome (Chronic) worse on left Hidradenitis suppurativa (Chronic) Painful recurrent right axillary hidradenitis 6 mm hidradenitis right posterior earlobe 4 cm recurrent hidradenitis posterior neck and occipital scalp History of section (Chronic) History of tonsillectomy (Chronic) Morbid obesity (Chronic) Bipolar affective (Chronic) Osteoarthritis (Chronic) Chronic back pain (Chronic) Smoker (Chronic) F17.200 H/O hidradenitis suppurativa (Chronic) Z87.2 Medical History: Medical History (Last Reviewed 09/09/20 @ 10:40 by Shreya Rondon) Muscle spasms of neck (Inactive) M62.838 Cellulitis of right hand (Inactive) L03.113 Abscess of dorsum of right hand (Inactive) L02.511 cat scratch bite abscess dorsum right hand by first web space Morbid obesity (Chronic) E66.01 Bipolar affective (Chronic) F31.9 Osteoarthritis (Chronic) Chronic back pain (Chronic) M54.9, G89.29 Diabetic leg ulcer (Inactive) E11.622, L97.909 nonhealing diabetic ulcer right medial leg - E11.622 Non-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 fat layer exposed (Inactive) L97.912 diabetic ulcer right medial leg - L97.912 H/O hidradenitis suppurativa (Chronic) Z87.2 Z87.2 Alcohol abuse F10.10 Anxiety and depression F41.9, F32.9 Asthma J45.909 Drug abuse F19.10 GERD (gastroesophageal reflux disease) K21.9 Hidradenitis L73.2 LEFT INGUINAL, RIGHT AXILLARY, POSTERIOR NECK, Hyperlipidemia E78.5 Neuropathy G62.9 Non-healing surgical wound T81.89XA NON HEALING HIDRADENITIS WOUND POSTERIOR NECK. NON HEALING INFECTED HIDRADENITIS ULCER POSTERIOR NECK Osteoarthritis M19.90 HTN (hypertension) I10 Abscess of breast (Resolved) N61.1 abscess right medial breast Abscess of sternal region (Resolved) L02.213 L02.213 Sternal chest wall wound abscess Cat bite (Resolved) W55.01XA cat scratch bite abscess dorsum right hand by first web space Cat bite of right hand with infection (Resolved) S61.451A, L08.9, W55.01XA cat scratch bite abscess dorsum right hand by first web space Cat scratch (Resolved) W55.03XA cat scratch infection dorsum right hand with extension to long finger cat scratch infection dorsum left hand at proximal index finger Cat scratch of left hand with infection (Resolved) S60.512A, L08.9, W55.03XA cat scratch infection dorsum left hand at proximal index finger Cat scratch of right hand with infection (Resolved) S60.511A, L08.9, W55.03XA cat scratch infection dorsum right hand with extension to long finger Open wound of chest wall, complicated (Resolved) S21.109A S21.109D open chest wall sternal wound Open wound of left axillary region (Resolved) S41.102A open surgical hidradenitis wound left axilla - S41.102A Skin graft failure (Inactive) T86.821 compromised skin graft left axilla Allergies lamotrigine [From Lamictal] Allergy (Mild, Verified 09/20/20 09:36) Rash adhesive tape Allergy (Verified 09/20/20 09:36) Rash Home Medications: Ambulatory Orders Medication Instructions Recorded Duloxetine Hcl [Cymbalta] 60 mg PO DAILY 01/18/14 metFORMIN HCl [Glucophage] 1,000 mg PO BIDCM 01/18/14 Spironolactone [Aldactone] 100 mg PO DAILY 01/14/16 Omeprazole [Prilosec] 20 mg PO DAILY 01/16/18 Atorvastatin Calcium 20 mg PO QHS 06/21/18 Buspirone HCl 20 mg PO TID 06/30/18 Glipizide 10 mg PO DINNER 11/27/19 Folic Acid 1 mg PO DAILY 12/14/19 Hydroxyzine Pamoate 100 mg PO TID PRN PRN 12/14/19 Insulin Aspart [Novolog Flexpen] 4 units SC ACHS 12/14/19 Albuterol Aerosols [Ventolin 2.5 mg INHALATION Q2H PRN PRN 12/15/19 Aerosols] vial.neb. Melatonin 3 mg PO QHS PRN PRN tab 12/15/19 prazosin 1 mg capsule 1 mg PO QHS 09/09/20 Elias-Fela Solis Carbonate 600 mg PO BID 09/20/20 Mirtazapine [Remeron] 30 mg PO QHS 09/20/20 Multivitamin with Minerals 1 ea PO DAILY 09/20/20 [Multiple Vitamin] Prazosin HCl 2 mg PO DAILY 09/20/20 Ziprasidone HCl 80 mg PO BID 09/20/20 Surgical History: Surgical History (Last Reviewed 09/09/20 @ 10:40 by Shreya Rondon) History of section (Chronic) Z98.891 History of tonsillectomy (Chronic) Z98.890, Z90.89 H/O neck surgery Z98.890 History of axillary surgery Z98.890 [place] teeth removed K08.499 Surgical History: tonsillectomy, - - Excisional debridement hydradenitis right axilla, C section Psychiatric History: Anxiety, Bipolar, Depression, Prior suicide attempt [employer] 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 Smoking Status: Current every day smoker Tobacco Use: Cigarettes - *Family History Maternal Family History: Family History (Last Reviewed 09/09/20 @ 10:40 by Shreya Rondon) Grandmother Thyroid disorder Father Diabetes Heart disease Hypertension High cholesterol Mother Heart disease Hypertension High cholesterol History Items: Heart Disease, Hypertension Paternal Family History: Family History (Last Reviewed 09/09/20 @ 10:40 by Shreya Rondon) Grandmother Thyroid disorder Father Diabetes Heart disease Hypertension High cholesterol Mother Heart disease Hypertension High cholesterol History Items: Diabetes, Heart Disease, Hypertension Review of Systems Unable to obtain accurate/complete ROS d/t: Lethargy VTE Information - Inpt Only VTE Present on Admission: No Patient Problems: Active and Suspected Problems (Last Reviewed 09/09/20 @ 10:40 by Shreya Rondon) Drug overdose, intentional (Acute) Suicide attempt (Acute) - Physical Exam Vitals/I&O's: Vital Signs Temp Pulse Resp BP Pulse Ox 99.5 F H 118 H 13 122/59 H 97 09/20/20 17:55 09/20/20 17:55 09/20/20 17:55 09/20/20 17:55 09/20/20 17:55 Oxygen Delivery Method Room Air Weight: 217 lb Body Mass Index (BMI) 36.1 Finger Stick Blood Glucose 161 Intake and Output for Last 24 Hours 09/18/20 09/19/20 09/20/20 23:59 23:59 23:59 Intake Total 2400 / 2400 Output Total 175 / 175 Balance 2225 / 2225 General: Confused, Lethargic HEENT: Atraumatic, PERRLA, EOMI, Normocephalic Oral: Moist Mucosa Neck: Supple, No JVD Lungs: Clear to auscultation, Normal air movement, No rhonchi, No wheeze, No rales, Diminished Cardiovascular: Regular Rhythm, Normal S1, Normal S2, No murmurs, Tachycardic Abdomen: Soft, Non Tender, Non-Distended, No Hepato-splenomegaly, Obese Extremities: No edema, Capillary Refill Less than 3 Seconds Skin: No rashes, No breakdown Neurological: Neuro grossly intact, Sensory exam intact to light touch and pain Psych/Mental Status: Normal Affect, Appropriate Laboratory Results 09/20/20 09:45: Urine Color Yellow, Urine Clarity Clear, Urine pH 6.5, Ur Specific [place] 1.015, Urine Protein 30 H, Urine Glucose (UA) 100 H, Urine Ketones 50 H, Urine Occult Blood Negative, Urine Nitrite Negative, Urine Bilirubin Negative, Urine Urobilinogen Normal, Ur Leukocyte Esterase 25 H, Urine RBC 0 SEEN, Urine WBC 0-5 SEEN, Ur Squamous Epith Cells 0-5 SEEN, Urine Bacteria 1+, Urine Mucus 0 SEEN, Urine Test Negative 09/20/20 09:45: Urine Opiates Screen NEGATIVE, Urine Methadone Screen NEGATIVE, Ur Barbiturates Screen NEGATIVE, Ur Phencyclidine Scrn NEGATIVE, Ur Amphetamines Screen POSITIVE H, U Methamphetamin-MDMA POSITIVE H, U Benzodiazepines Scrn NEGATIVE, Urine Cocaine Screen NEGATIVE, U Cannabinoids Screen NEGATIVE, Ur Drug Screen Comment 09/20/20 10:15: POC Glucose 186 H 09/20/20 10:40: WBC 12.4 H, RBC 3.86 L, Hgb 11.5 L, Hct 35.1 L, MCV 90.9, MCH 29.8, MCHC 32.8, RDW Std Deviation 50.1 H, RDW Coeff of Radha 15.2 H, Plt Count 412, MPV 9.3, Immature Gran % (Auto) 0.600, Neut % (Auto) 74.4 H, Lymph % (Auto) 19.2, [place] % (Auto) 5.2, Eos % (Auto) 0.2, Baso % (Auto) 0.4, Absolute Neuts (auto) 9.2 H, Absolute Lymphs (auto) 2.39, Nucleated RBC % 0 09/20/20 10:40: Sodium 137, Potassium 2.9 L, Chloride 108 H, Carbon Dioxide 19.0 L, Anion Gap 10, BUN 9, Creatinine 1.18 H, Estim Creat Clear Calc 59.31, Est GFR (MDRD) Af Amer 67, Est GFR (MDRD) Non-Af 55 L, BUN/Creatinine Ratio 7.6 L, Glucose 164 H, Calcium 10.0, Total Bilirubin 0.60, AST 30, ALT 34, Alkaline Phosphatase 84, Total Protein 7.3, Albumin 4.0, Globulin 3.3, Albumin/Globulin Ratio 1.2 09/20/20 10:40: Ethyl Alcohol < 3.0 09/20/20 10:40: Elias-Fela Solis 2.30 H* 09/20/20 10:40: Salicylates 3.8, Acetaminophen < 2.0 L 09/20/20 10:40: Lactic Acid 4.3 H* 09/20/20 11:03: POC Glucose 161 H 09/20/20 12:14: POC Glucose 141 H 09/20/20 13:54: POC Glucose 100 09/20/20 14:58: POC Glucose 90 09/20/20 16:12: Lactic Acid 1.2 09/20/20 16:18: Elias-Fela Solis 2.61 H* 09/20/20 16:18: Sodium 139, Potassium 4.0, Chloride 112 H, Carbon Dioxide 22.0, Anion Gap 5, BUN 9, Creatinine 0.99, Estim Creat Clear Calc 67.84, Est GFR (MDRD) Af Amer 81, Est GFR (MDRD) Non-Af 67, BUN/Creatinine Ratio 9.1 L, Glucose 78, Calcium 9.2 09/20/20 16:18: Magnesium 1.8, Total Creatine Kinase 434 H Current Medications Dextrose/Sodium Chloride (Dextrose 5%/0.9% Nacl) 1,000 mls @ 125 mls/hr IV .Q8H MANOLO Last Admin: 09/20/20 14:20 Dose: 125 mls/hr Documented by: Sodium Chloride () 250 mls @ 15 mls/hr IV .[id number] PRN PRN Reason: Saline Flush Sodium Chloride () 250 mls @ 15 mls/hr IV .[id number] PRN PRN Reason: Additional IVPB Infusion Sodium Chloride (0.9% Saline Lock 10 Ml Syringe) 10 - 40 ml IV UD PRN PRN Reason: SALINE FLUSH Assessment/Plan All Active Problems (Last Reviewed 09/09/20 @ 10:40 by Shreya Rondon) Drug overdose, intentional (Acute) Suicide attempt (Acute) Contraceptive management (Acute) Cellulitis of left ear (Resolved) Mass of left ear auricle (Resolved) OD (overdose of drug) (Acute) Leukocytosis (Acute) Dehydration (Acute) Suicide gesture (Acute) Abscess of breast (Resolved) Abscess of neck (Resolved) Abscess of sternal region (Resolved) Acute kidney injury (Resolved) Cat bite (Resolved) Cat bite of right hand with infection (Resolved) Cat scratch (Resolved) Cat scratch of left hand with infection (Resolved) Cat scratch of right hand with infection (Resolved) History of incision and drainage (Resolved) Elias-Fela Solis toxicity (Resolved) Necrotizing soft tissue infection (Resolved) Non-pressure chronic ulcer of skin of other sites with fat layer exposed (Resolved) Open wound involving head with neck, complicated (Resolved) Open wound of chest wall, complicated (Resolved) Open wound of left axillary region (Resolved) Open wound of right axillary region with complication (Resolved) Unspecified open wound of unspecified part of head, subsequent encounter (Resolved) Unspecified open wound of unspecified part of neck, subsequent encounter (Resolved) 1. Intentional overdose/bipolar disorder/depression/anxiety/polysubstance abuse -We will monitor lithium levels initially 2.3 on repeat 2.6, will place on IV fluids D5 normal saline at 125 -We will hold all of her home medications -We will plan for mental health evaluation and eventual discharge to an inpatient mental health facility -This is 1 of many suicide attempts -Will monitor QTC, in the ER on EKG his QT interval was 531 -Her lactic acid has decreased from 4.3-1.2 -Tylenol level was less than 2 and alcohol level was less than 3 -She tested positive for amphetamines and methamphetamines 2. DM 2/morbid obesity -A1c last year was 7.4, will hold all blood sugar medications as she did overdose on glipizide -We will monitor blood sugars every hour and provide D50 as necessary 3. GERD -Stable -Continue PPI 4. HTN/HLD -When stable she can likely resume Lipitor -Blood pressures are stable currently -We will monitor potassium as she has been taking Aldactone as one of the medication she possibly overdosed on -Initially potassium was 2.9, currently 4 on repeat DVT: Ambulation, low risk Inpatient E&M: [id number] Init Hosp L3
[2020-09-20 19:01] LABS: Bedside Glucose 106 mg/dL (70-110)
[2020-09-20 19:01] LABS: Bedside Glucose 104 mg/dL (70-110)
[2020-09-20 19:01] LABS: Bedside Glucose 81 mg/dL (70-110)
[2020-09-20 21:11] LABS: Bedside Glucose 137 mg/dL (70-110)
[2020-09-20 21:11] LABS: Bedside Glucose 137 mg/dL (70-110)
[2020-09-20] MEDS: LORazepam 2 MG/ML Syringe 1 MG IV (23:16)
[2020-09-20] MEDS: 0.9% Saline Lock 10 ML Syringe IV (23:17)
[2020-09-20 23:20] LABS: Bedside Glucose 114 mg/dL (70-110)
[2020-09-20 23:20] LABS: Bedside Glucose 108 mg/dL (70-110)
[2020-09-20 23:20] LABS: Bedside Glucose 127 mg/dL (70-110)
[2020-09-21] VITALS (18 sets, daily range): BP systolic 116–140; BP diastolic 71–86; PULSE 82–115; RESP 12–27; TEMP 36.6–37.4; O2SAT 92–98
[2020-09-21 02:01] LABS: Bedside Glucose 94 mg/dL (70-110)
[2020-09-21 02:01] LABS: Bedside Glucose 113 mg/dL (70-110)
[2020-09-21] MEDS: 0.9% Saline Lock 10 ML Syringe IV ×2 (05:04→14:54)
[2020-09-21] MEDS: LORazepam 2 MG/ML Syringe 1 MG IV ×3 (05:04→18:43)
[2020-09-21 05:06] LABS: Bedside Glucose 104 mg/dL (70-110)
[2020-09-21] MEDS: Dextrose 5%/0.9% NaCl 1,000 ML 125 ML IV (05:07)
[2020-09-21 07:06] LABS: Bedside Glucose 145 mg/dL (70-110)
[2020-09-21 07:30] LABS: Absolute Lymphocyte Count 4.13 X10^3/uL (0.83-4.51); Absolute Neutrophil Count 7.9 X10^3/uL (2.0-7.7); Basophil# 0.07 X10^3/uL; Basophil% 0.5 % (0-1); Eosinophil# 0.35 X10^3/uL; Eosinophils% 2.6 % (0-5); Hematocrit 33.8 % (37-47); Hemoglobin 10.4 g/dL (12.0-15.0); Lymphocyte # 4.13 X10^3/ul (4.0); Lymphocyte % 30.6 % (19-41); Mean Corp Hgb Conc 30.8 g/dL (32-36); Mean Corpuscular Hgb 28.9 pg (27.0-32.0); Mean Corpuscular Volume 93.9 fL (81-99); Mean Platelet Vol. 9.3 fl (6.2-12.0); Monocyte# 0.99 X10^3/uL; Monocyte% 7.3 % (0-10); NRBC Flagged by Analyzer 0 % (0-5); Neutrophil # 7.91 X10^3/uL (2.7-7.7); Neutrophil % 58.6 % (47-70); Platelet Count 396 K/mm3 (150-450); RBC Distribution Width CV 15.9 % (11.6-14.6); RBC Distribution Width SD 55.5 fl (35.1-43.9); White Blood Count 13.5 K/mm3 (4.4-11.0)
[2020-09-21 07:52] LABS: Anion Gap 6 (5-15); BUN 7 mg/dL (7-18); BUN/Creat Ratio 6.9 RATIO (10-20); Calcium,Total 8.7 mg/dL (8.5-10.1); Chloride 110 mmol/L (98-107); Creatinine, Serum 1.01 mg/dL (0.55-1.02); EST Glomerular Filtration Rate 66 mL/min (>60); Est Glom Filt Rate - Afr Amer 80 mL/min (>60); Estimated Creatinine Clearance 66.49 ml/min; Glucose 153 mg/dL (74-106); Potassium 3.4 mmol/L (3.5-5.1); Sodium Level 139 mmol/L (136-145)
[2020-09-21 09:55] LABS: Bedside Glucose 317 mg/dL (70-110)
--- NOTE | 2020-09-21 10:59 | PN_ITS ---
<Kishan Sneed - Last Filed: 09/21/20 12:40> Patient Problems: Active and Suspected Problems (Last Reviewed 09/09/20 @ 10:40 by Shreya Rondon) Drug overdose, intentional (Acute) Suicide attempt (Acute) Reason for Visit: intentional overdose Subjective: pt c/o mild anxiety and meth craving this AM. No SOB, CP, fever, chills. Pt resting comfortably in bed NAD. States she took intentional overdose because she is upset about her meth addiction. No new self inflicted wounds. Old wounds p resent, pt states she is a cutter. Vitals/I&O's: Vital Signs Temp Pulse Resp BP Pulse Ox 99.3 F H 111 H 12 132/77 H 94 09/21/20 09:41 09/21/20 09:41 09/21/20 09:41 09/21/20 09:41 09/21/20 09:41 Oxygen Delivery Method Room Air Weight: 217 lb Body Mass Index (BMI) 36.1 Finger Stick Blood Glucose 161 Intake and Output for Last 24 Hours 09/19/20 09/20/20 09/21/20 23:59 23:59 22:59 Intake Total 4025 / 4025 1600 / 1600 Output Total 525 / 525 Balance 3500 / 3500 1600 / 1600 General: Alert, Oriented x3, Cooperative HEENT: Atraumatic, PERRLA, EOMI, Normocephalic Neck: Supple, No JVD, Negative Carotid Bruits Lungs: Clear to auscultation, Normal air movement Cardiovascular: Regular rate, No murmurs Abdomen: Bowel Sounds Present, Soft, Non Tender Extremities: No edema, Capillary Refill Less than 3 Seconds Skin: No rashes, No breakdown Musculoskeletal: No Tenderness to Palpation of Joints or Extremities Neurological: Cranial nerves II-XII grossly intact Psych/Mental Status: Normal Affect, Appropriate, Alert and oriented to time, place, person, mood and affect Laboratory Results 09/20/20 12:14: POC Glucose 141 H 09/20/20 13:54: POC Glucose 100 09/20/20 14:58: POC Glucose 90 09/20/20 16:12: Lactic Acid 1.2 09/20/20 16:13: POC Glucose 81 09/20/20 16:18: [place] 2.61 H* 09/20/20 16:18: Sodium 139, Potassium 4.0, Chloride 112 H, Carbon Dioxide 22.0, Anion Gap 5, BUN 9, Creatinine 0.99, Estim Creat Clear Calc 67.84, Est GFR (MDRD) Af Amer 81, Est GFR (MDRD) Non-Af 67, BUN/Creatinine Ratio 9.1 L, Glucose 78, Calcium 9.2 09/20/20 16:18: Magnesium 1.8, Total Creatine Kinase 434 H 09/20/20 17:08: POC Glucose 106 09/20/20 17:59: POC Glucose 104 09/20/20 19:02: POC Glucose 137 H 09/20/20 20:04: POC Glucose 137 H 09/20/20 21:08: POC Glucose 127 H 09/20/20 22:06: POC Glucose 108 09/20/20 22:21: [place] 2.50 H* 09/20/20 23:03: POC Glucose 114 H 09/20/20 23:59: POC Glucose 94 09/21/20 01:02 EST: POC Glucose 113 H 09/21/20 01:02 EST: POC Glucose 104 09/21/20 05:05: POC Glucose 145 H 09/21/20 06:58: WBC 13.5 H, RBC 3.60 L, Hgb 10.4 L, Hct 33.8 L, MCV 93.9, MCH 28.9, MCHC 30.8 L D, RDW Std Deviation 55.5 H, RDW Coeff of Radha 15.9 H, Plt Count 396, MPV 9.3, Immature Gran % (Auto) 0.400, Neut % (Auto) 58.6, Lymph % (Auto) 30.6, [place] % (Auto) 7.3, Eos % (Auto) 2.6, Baso % (Auto) 0.5, Absolute Neuts (auto) 7.9 H, Absolute Lymphs (auto) 4.13, Nucleated RBC % 0 09/21/20 06:58: Sodium 139, Potassium 3.4 L, Chloride 110 H, Carbon Dioxide 23.0, Anion Gap 6, BUN 7, Creatinine 1.01, Estim Creat Clear Calc 66.49, Est GFR (MDRD) Af Amer 80, Est GFR (MDRD) Non-Af 66, BUN/Creatinine Ratio 6.9 L, Glucose 153 H, Calcium 8.7 09/21/20 06:58: [place] 1.80 H* 09/21/20 09:51: POC Glucose 317 H Current Medications Sodium Chloride () 250 mls @ 15 mls/hr IV .[id number] PRN PRN Reason: Saline Flush Sodium Chloride () 250 mls @ 15 mls/hr IV .[id number] PRN PRN Reason: Additional IVPB Infusion Lorazepam (Lorazepam 2 Mg/Ml Syringe) 1 mg IV Q6H PRN PRN PRN Reason: ANXIETY Last Admin: 09/21/20 05:04 Dose: 1 mg Documented by: Nicotine (Nicotine 21 Mg Patch) 21 mg TRANSDERM. DAILY MANOLO Last Admin: 09/21/20 09:47 Dose: 21 mg Documented by: Sodium Chloride (0.9% Saline Lock 10 Ml Syringe) 10 - 40 ml IV UD PRN PRN Reason: SALINE FLUSH Last Admin: 09/21/20 05:04 Dose: 10 ml Documented by: STROKE Vital Signs/Narrative: Vital Signs Temp Pulse Resp BP Pulse Ox 09/21/20 09:41 99.3 F H 111 H 12 132/77 H 94 09/21/20 07:19 114 H Medical Necessity - Tobacco Use Smoking Status: Current every day smoker Tobacco Use: Cigarettes Assessment/Plan All Active Problems (Last Reviewed 09/09/20 @ 10:40 by Shreya Rondon) Drug overdose, intentional (Acute) Suicide attempt (Acute) Contraceptive management (Acute) Cellulitis of left ear (Resolved) Mass of left ear auricle (Resolved) OD (overdose of drug) (Acute) Leukocytosis (Acute) Dehydration (Acute) Suicide gesture (Acute) Abscess of breast (Resolved) Abscess of neck (Resolved) Abscess of sternal region (Resolved) Acute kidney injury (Resolved) Cat bite (Resolved) Cat bite of right hand with infection (Resolved) Cat scratch (Resolved) Cat scratch of left hand with infection (Resolved) Cat scratch of right hand with infection (Resolved) History of incision and drainage (Resolved) [place] toxicity (Resolved) Necrotizing soft tissue infection (Resolved) Non-pressure chronic ulcer of skin of other sites with fat layer exposed (Resolved) Open wound involving head with neck, complicated (Resolved) Open wound of chest wall, complicated (Resolved) Open wound of left axillary region (Resolved) Open wound of right axillary region with complication (Resolved) Unspecified open wound of unspecified part of head, subsequent encounter (Resolved) Unspecified open wound of unspecified part of neck, subsequent encounter (Resolved) 1. Intentional overdose, bipolar disorder - crisis consult when medically stable. [place] still elevated. Still mildly tachy. CT brain negative. Recheck Q T prior to re initiation of Geodon. 2. T2DM with obesity - stop d5, inititate SSI and resume glipize. no metformin due to lactic acidosis. 3. GERD - ppi 4. HTN - stable at this time. 5. HLD - statin held for elevated CK. CHeck in AM 6. Nicotine abuse - patch 7. Meth abuse - no IV use, snorts and smokes. DVT ppx: early ambulation DC planning: crisis eval, last admission went to inpatient psych, pt would be good candidate for that again. This patient was seen by Kishan Sneed PA-C under the supervision of Doctor Jenn. <Rafy Barajas F - Last Filed: 09/21/20 13:54> Vitals/I&O's: Vital Signs Temp Pulse Resp BP Pulse Ox 99.3 F H 111 H 12 132/77 H 94 09/21/20 09:41 09/21/20 09:41 09/21/20 09:41 09/21/20 09:41 09/21/20 09:41 Oxygen Delivery Method Room Air Weight: 217 lb 0.016 oz Body Mass Index (BMI) 36.1 Finger Stick Blood Glucose 161 Intake and Output for Last 24 Hours 09/19/20 09/20/20 09/21/20 23:59 23:59 22:59 Intake Total 4025 / 4025 1800 / 1800 Output Total 525 / 525 350 / 350 Balance 3500 / 3500 1450 / 1450 Laboratory Results 09/20/20 13:54: POC Glucose 100 09/20/20 14:58: POC Glucose 90 09/20/20 16:12: Lactic Acid 1.2 09/20/20 16:13: POC Glucose 81 09/20/20 16:18: [place] 2.61 H* 09/20/20 16:18: Sodium 139, Potassium 4.0, Chloride 112 H, Carbon Dioxide 22.0, Anion Gap 5, BUN 9, Creatinine 0.99, Estim Creat Clear Calc 67.84, Est GFR (MDRD) Af Amer 81, Est GFR (MDRD) Non-Af 67, BUN/Creatinine Ratio 9.1 L, Glucose 78, Calcium 9.2 09/20/20 16:18: Magnesium 1.8, Total Creatine Kinase 434 H 09/20/20 17:08: POC Glucose 106 09/20/20 17:59: POC Glucose 104 09/20/20 19:02: POC Glucose 137 H 09/20/20 20:04: POC Glucose 137 H 09/20/20 21:08: POC Glucose 127 H 09/20/20 22:06: POC Glucose 108 09/20/20 22:21: [place] 2.50 H* 09/20/20 23:03: POC Glucose 114 H 09/20/20 23:59: POC Glucose 94 09/21/20 01:02 EST: POC Glucose 113 H 09/21/20 01:02 EST: POC Glucose 104 09/21/20 05:05: POC Glucose 145 H 09/21/20 06:58: WBC 13.5 H, RBC 3.60 L, Hgb 10.4 L, Hct 33.8 L, MCV 93.9, MCH 28.9, MCHC 30.8 L D, RDW Std Deviation 55.5 H, RDW Coeff of Radha 15.9 H, Plt Count 396, MPV 9.3, Immature Gran % (Auto) 0.400, Neut % (Auto) 58.6, Lymph % (Auto) 30.6, [place] % (Auto) 7.3, Eos % (Auto) 2.6, Baso % (Auto) 0.5, Absolute Neuts (auto) 7.9 H, Absolute Lymphs (auto) 4.13, Nucleated RBC % 0 09/21/20 06:58: Sodium 139, Potassium 3.4 L, Chloride 110 H, Carbon Dioxide 23.0, Anion Gap 6, BUN 7, Creatinine 1.01, Estim Creat Clear Calc 66.49, Est GFR (MDRD) Af Amer 80, Est GFR (MDRD) Non-Af 66, BUN/Creatinine Ratio 6.9 L, Glucose 153 H, Calcium 8.7 09/21/20 06:58: [place] 1.80 H* 09/21/20 09:51: POC Glucose 317 H 09/21/20 11:17: POC Glucose 223 H Current Medications Cephalexin (Cephalexin 500 Mg Capsule) 500 mg PO Q8 MANOLO Glipizide (Glipizide 5 Mg Tablet) 10 mg PO DINNER MANOLO Sodium Chloride () 250 mls @ 15 mls/hr IV .[id number] PRN PRN Reason: Saline Flush Sodium Chloride () 250 mls @ 15 mls/hr IV .[id number] PRN PRN Reason: Additional IVPB Infusion Ceftriaxone Sodium (Rocephin) 1 gm in 50 mls @ 100 mls/hr IV Q24 MANOLO Insulin Human Lispro (Insulin Lispro 100 Unit/Ml Insuln.Pen) 0 unit SC ACHS MANOLO; Protocol Last Admin: 09/21/20 11:21 Dose: 2 units Documented by: Lorazepam (Lorazepam 2 Mg/Ml Syringe) 1 mg IV Q6H PRN PRN PRN Reason: ANXIETY Last Admin: 09/21/20 11:57 Dose: 1 mg Documented by: Nicotine (Nicotine 21 Mg Patch) 21 mg TRANSDERM. DAILY MANOLO Last Admin: 09/21/20 09:47 Dose: 21 mg Documented by: Sodium Chloride (0.9% Saline Lock 10 Ml Syringe) 10 - 40 ml IV UD PRN PRN Reason: SALINE FLUSH Last Admin: 09/21/20 05:04 Dose: 10 ml Documented by: Addendum: Dr. Barajas I personally examined the patient and reviewed the chart. I agree with the above. 1. Intentional overdose/bipolar disorder/depression/anxiety/polysubstance abuse -We will monitor lithium levels initially 2.3 on repeat 2.6 now down to 1.8, can discontinue D5 given hyperglycemia -We will hold all of her home medications -We will plan for mental health evaluation and eventual discharge to an inpatient mental health facility -This is one of many suicide attempts -Will monitor QTC, in the ER on EKG his QT interval was 531 -Her lactic acid has decreased from 4.3-1.2 -Tylenol level was less than 2 and alcohol level was less than 3 -She tested positive for amphetamines and methamphetamines 2. DM 2/morbid obesity -A1c last year was 7.4, will hold all blood sugar medications as she did overdose on glipizide -We will monitor blood sugars every hour and provide D50 as necessary 3. GERD -Stable -Continue PPI 4. HTN/HLD -When stable she can likely resume Lipitor -Blood pressures are stable currently -We will monitor potassium as she has been taking Aldactone as one of the medication she possibly overdosed on -Initially potassium was 2.9, currently 4 on repeat 5. Possible UTI -UA is weak however she is complaining of burning therefore will obtain a urine culture and start her on Keflex p.o. Inpatient E&M: [id number] Subs Hosp L2
[2020-09-21] MEDS: Insulin Lispro 100 UNIT/ML INSULN.PEN SC ×2 (11:21→16:49)
[2020-09-21 11:31] LABS: Bedside Glucose 223 mg/dL (70-110)
[2020-09-21] MEDS: Ceftriaxone 1 GM/50 ML BAG IV (14:54)
[2020-09-21] MEDS: Cephalexin 500 MG Capsule PO ×2 (14:54→21:34)
[2020-09-21] MEDS: glipiZIDE 5 MG Tablet 10 MG PO (16:50)
[2020-09-21 17:05] LABS: Bedside Glucose 163 mg/dL (70-110)
[2020-09-21] MEDS: MELATONIN 3 MG TABLET PO (21:34)
[2020-09-21 21:46] LABS: Bedside Glucose 132 mg/dL (70-110)
[2020-09-22] VITALS (7 sets, daily range): BP systolic 105–129; BP diastolic 59–76; PULSE 81–86; RESP 16–20; TEMP 35.9–36.8; O2SAT 96–98
[2020-09-22] MEDS: LORazepam 2 MG/ML Syringe 1 MG IV (04:18)
[2020-09-22] MEDS: 0.9% Saline Lock 10 ML Syringe IV (04:18)
[2020-09-22] MEDS: Cephalexin 500 MG Capsule PO ×3 (05:47→19:55)
--- NOTE | 2020-09-22 05:55 | EKG12_ITS ---
Test Reason : AM EKG Blood Pressure : / mmHG Vent. Rate : 083 BPM Atrial Rate : 083 BPM P-R Int : 174 ms QRS Dur : 080 ms QT Int : 406 ms P-R-T Axes : 065 083 053 degrees QTc Int : 477 ms Normal sinus rhythm Normal ECG Confirmed by JOLEEN MARTE, ANNIE ([id number]), state editor GAYE BONE ([id number]) on 09/24/2020 10:46:00 AM Referred By: VIKAS Confirmed By:ANNIE GOODRICH MD
[2020-09-22 06:56] LABS: Bedside Glucose 148 mg/dL (70-110)
[2020-09-22 07:38] LABS: Absolute Neutrophil Count 6.4 X10^3/uL (2.0-7.7); Basophil# 0.07 X10^3/uL; Basophil% 0.6 % (0-1); Eosinophil# 0.43 X10^3/uL; Eosinophils% 3.7 % (0-5); Hematocrit 36.2 % (37-47); Hemoglobin 11.2 g/dL (12.0-15.0); Lymphocyte % 34.4 % (19-41); Mean Corp Hgb Conc 30.9 g/dL (32-36); Mean Corpuscular Volume 93.8 fL (81-99); Mean Platelet Vol. 9.4 fl (6.2-12.0); Monocyte# 0.67 X10^3/uL; Monocyte% 5.8 % (0-10); NRBC Flagged by Analyzer 0 % (0-5); Neutrophil # 6.42 X10^3/uL (2.7-7.7); Neutrophil % 55.1 % (47-70); Platelet Count 353 K/mm3 (150-450); RBC Distribution Width CV 15.9 % (11.6-14.6); Red Blood Count 3.86 M/mm3 (4.2-5.4); White Blood Count 11.6 K/mm3 (4.4-11.0)
[2020-09-22 08:12] LABS: ALB/GLOB Ratio 1.1 RATIO (0.9-2.4); AST(SGOT) 19 U/L (15-37); Alanine Aminotransfer ALT/SGPT 26 U/L (13-56); Albumin, Serum 3.1 g/dL (3.2-5.0); Alkaline Phosphatase 77 U/L (45-117); Anion Gap 8 (5-15); BUN 9 mg/dL (7-18); CPK Total, Creatine Kinase 154 U/L (26-192); Calcium,Total 8.9 mg/dL (8.5-10.1); Chloride 109 mmol/L (98-107); EST Glomerular Filtration Rate 75 mL/min (>60); Est Glom Filt Rate - Afr Amer 91 mL/min (>60); Estimated Creatinine Clearance 74.62 ml/min; Globulin 2.8 g/dL (2.2-4.2); Glucose 154 mg/dL (74-106); Potassium 3.8 mmol/L (3.5-5.1); Protein, Total 5.9 g/dL (6.4-8.2); Sodium Level 140 mmol/L (136-145)
[2020-09-22] MEDS: Ceftriaxone 1 GM/50 ML BAG IV (09:42)
[2020-09-22] MEDS: Pantoprazole Sodium 20 MG Tablet PO (11:06)
[2020-09-22] MEDS: Insulin Lispro 100 UNIT/ML INSULN.PEN SC ×4 (11:08→16:35)
[2020-09-22 11:10] LABS: Bedside Glucose 175 mg/dL (70-110)
[2020-09-22] MEDS: Albuterol 2.5 MG/3 ML VIAL.NEB. INHALATION (11:15)
--- NOTE | 2020-09-22 11:38 | DCINST_ITS ---
- Discharge Diagnoses Current Active Problems: Current Active and Chronic Problems (Last Reviewed 09/09/20 @ 10:40 by Shreya Rondon) Drug overdose, intentional (Acute) Suicide attempt (Acute) You will use the following diet at home:: Calorie/Carbohydrate Controlled (specify 1200, 1400, etc) - 1800 luz / day, Cardiac Your food should be the consistency of: Regular Your liquids should be the consistency of: Regular/Thin Discharge Activity: Return to Normal Activity Allergies/Adverse Reactions: Allergies lamotrigine [From Lamictal] Allergy (Mild, Verified 09/20/20 09:36) Rash adhesive tape Allergy (Verified 09/20/20 09:36) Rash Medications to take at Discharge Omeprazole [Prilosec] 20 mg PO DAILY 01/16/18 Buspirone HCl 20 mg PO TID 06/30/18 Glipizide 10 mg PO DINNER 11/27/19 Folic Acid 1 mg PO DAILY 12/14/19 Hydroxyzine Pamoate 100 mg PO TID PRN PRN 12/14/19 Insulin Aspart [Novolog Flexpen] 4 units SC ACHS 12/14/19 Albuterol Aerosols [Ventolin Aerosols] 2.5 mg INHALATION Q2H PRN PRN vial.neb. 12/15/19 Melatonin 3 mg PO QHS PRN PRN tab 12/15/19 Multivitamin with Minerals [Multiple Vitamin] 1 ea PO DAILY 09/20/20 Cephalexin [Keflex] 500 mg PO Q8 #9 cap 09/22/20 The following prescriptions were given: Cephalexin [Keflex] 500 mg PO Q8 #9 cap Prescription Printed Primary Care Physician: Care Physician,No Primary [Primary Care Provider] - Please follow up with your Primary Care Physician in: 1-2 weeks Test Results: Test results from this visit will be discussed in further detail at your follow- up appointment, if applicable. Please Follow Up With: Psychiatry When: as directed Proposed Discharge Date: 09/22/20
--- NOTE | 2020-09-22 12:29 | NURSING ---
Hallucinating, seeing cameras in food. Dc'd IV d/t patient concerned it was hurting her.
[2020-09-22] MEDS: busPIRone 5 MG Tablet PO ×2 (13:02→19:55)
[2020-09-22] MEDS: busPIRone 15 MG TABLET PO ×2 (13:07→19:56)
--- NOTE | 2020-09-22 13:15 | PCM.DC.SUM ---
<Kishan Sneed - Last Filed: 09/22/20 13:15> Discharge Date and Diagnosis - Problem List Patient Problems: Active and Suspected Problems (Last Reviewed 09/09/20 @ 10:40 by Shreya Rondon) Drug overdose, intentional (Acute) Suicide attempt (Acute) Date of Admission: 09/20/20 Date of Discharge: 09/22/20 - Primary Discharge Diagnosis Acute Problems: Active Problems (Last Reviewed 09/09/20 @ 10:40 by Shreya Rondon) Drug overdose, intentional (Acute) Suicide attempt (Acute) - Secondary Discharge Diagnosis Chronic Problems: Chronic Problems (Last Reviewed 09/09/20 @ 10:40 by Shreya Rondon) Cellulitis of right ear (Chronic) 1 cm infected cystic lesion right posterior ear Mass of right ear auricle (Chronic) 1 cm infected cystic lesion right posterior ear Diabetes mellitus (Chronic) Normochromic normocytic anemia (Chronic) unknown etiology Substance abuse (Chronic) Depression (Chronic) Hypertension (Chronic) JOAN (generalized anxiety disorder) (Chronic) Borderline personality disorder (Chronic) not sure this is correct.......she has BPD listed as well Branchial cleft sinus (Chronic) Diabetes mellitus type 2, uncontrolled (Chronic) Chronic neck pain (Chronic) Bilateral carpal tunnel syndrome (Chronic) worse on left Hidradenitis suppurativa (Chronic) Painful recurrent right axillary hidradenitis 6 mm hidradenitis right posterior earlobe 4 cm recurrent hidradenitis posterior neck and occipital scalp History of section (Chronic) History of tonsillectomy (Chronic) Morbid obesity (Chronic) Bipolar affective (Chronic) Osteoarthritis (Chronic) Chronic back pain (Chronic) Smoker (Chronic) F17.200 H/O hidradenitis suppurativa (Chronic) Z87.2 Hospital Course and Treatment Imaging Results: CT/Brain/Head without Contrast IMPRESSION: Normal unenhanced CT scan of the brain. RAD/Chest 1 View (Portable) IMPRESSION: Normal x-ray examination of the chest. Consults: Crisis / Mental health Operations: None, - Procedures: None Summary of Care Provided: Hospital course: The patient is a 35 year old F past medical history of bipolar disorder prior suicide attempts who presented to the emergency room who was found in a park very lethargic. She had taken an entire week's worth of her home medications at once. The ED physician contacted poison control regarding her lithium, poison control recommended monitoring her lithium levels as well as her blood sugar given her overdose on diabetic medications. [place] level was elevated. Home medications were held. She was placed on D5 normal saline given her risk for hypoglycemia. QTC was prolonged in the ER at 531. She had increased lactic acid. She tested positive for amphetamines and methamphetamines. The patient returned to her normal baseline mental status. She admitted to me that she had been using meth heavily, was unhappy that she was having drug issues and wanted to kill herself, therefore she intentionally overdosed. Her lithium levels were monitored and they came back to normal. She had increased anxiety after her lethargy resolved, Vistaril and BuSpar were restarted. With her prolonged QTC her atypical antipsychotic will not be restarted at this time. With her lactic acidosis her Metformin will not be restarted at this time. With her elevated CK her statin will not be restarted at this time. She later complained of dysuria and did have some mild leukocytosis. Urinalysis was consistent with UTI. She received 2 doses of Rocephin while here and was transitioned to Keflex of which she will complete 3 more days worth. Crisis was called to evaluate the patient. She was discharged to inpatient psychiatry in stable condition. She will need follow-up as directed by receiving facility. This patient was seen by Kishan Sneed PA-C under the supervision of Doctor Wynne. [] Patient Problems: Active and Suspected Problems (Last Reviewed 09/09/20 @ 10:40 by Shreya Rondon) Drug overdose, intentional (Acute) Suicide attempt (Acute) - Physical Exam Vitals/I&O's: Vital Signs Temp Pulse Resp BP Pulse Ox 98.0 F 86 20 H 129/76 H 97 09/22/20 09:52 09/22/20 11:16 09/22/20 11:16 09/22/20 09:52 09/22/20 09:52 Oxygen Delivery Method Room Air Weight: 217 lb 0.016 oz Body Mass Index (BMI) 36.1 Finger Stick Blood Glucose 161 Intake and Output for Last 24 Hours 09/21/20 09/21/20 09/22/20 00:59 23:59 23:59 Intake Total 300 / 300 Output Total 600 / 600 Balance -300 / -300 General: Alert, Oriented x3, Cooperative HEENT: Atraumatic, PERRLA, EOMI, Normocephalic Neck: Supple, No JVD, Negative Carotid Bruits Lungs: Clear to auscultation, Normal air movement Cardiovascular: Regular rate, No murmurs Abdomen: Bowel Sounds Present, Soft, Non Tender, Obese Extremities: No edema, Capillary Refill Less than 3 Seconds Skin: No rashes, No breakdown Musculoskeletal: No Tenderness to Palpation of Joints or Extremities Neurological: Cranial nerves II-XII grossly intact Psych/Mental Status: Anxious, Alert and oriented to time, place, person, mood and affect Laboratory Results 09/21/20 16:47: POC Glucose 163 H 09/21/20 21:29: POC Glucose 132 H 09/22/20 06:42: POC Glucose 148 H 09/22/20 07:05: WBC 11.6 H, RBC 3.86 L, Hgb 11.2 L, Hct 36.2 L, MCV 93.8, MCH 29.0, MCHC 30.9 L, RDW Std Deviation 55.0 H, RDW Coeff of Radha 15.9 H, Plt Count 353, MPV 9.4, Immature Gran % (Auto) 0.400, Neut % (Auto) 55.1, Lymph % (Auto) 34.4, Hinds % (Auto) 5.8, Eos % (Auto) 3.7, Baso % (Auto) 0.6, Absolute Neuts (auto) 6.4, Absolute Lymphs (auto) 4.00, Nucleated RBC % 0 09/22/20 07:05: Sodium 140, Potassium 3.8, Chloride 109 H, Carbon Dioxide 23.0, Anion Gap 8, BUN 9, Creatinine 0.90, Estim Creat Clear Calc 74.62, Est GFR (MDRD) Af Amer 91, Est GFR (MDRD) Non-Af 75, BUN/Creatinine Ratio 10.0, Glucose 154 H, Calcium 8.9, Total Bilirubin 0.50, AST 19, ALT 26, Alkaline Phosphatase 77, Total Creatine Kinase 154, Total Protein 5.9 L, Albumin 3.1 L, Globulin 2.8, Albumin/Globulin Ratio 1.1 09/22/20 07:05: [place] 1.10 09/22/20 11:07: POC Glucose 175 H Current Medications Albuterol Sulfate (Albuterol 2.5 Mg/3 Ml Vial.Neb.) 2.5 mg INHALATION Q2H PRN PRN PRN Reason: SOB/Wheezing Last Admin: 09/22/20 11:15 Dose: 2.5 mg Documented by: Buspirone HCl (Buspirone 15 Mg Tablet) 15 mg PO TID [facility] Last Admin: 09/22/20 13:07 Dose: 15 mg Documented by: Buspirone HCl (Buspirone 5 Mg Tablet) 5 mg PO TID [facility] Last Admin: 09/22/20 13:02 Dose: 5 mg Documented by: Cephalexin (Cephalexin 500 Mg Capsule) 500 mg PO Q8 [facility] Last Admin: 09/22/20 13:02 Dose: 500 mg Documented by: Glipizide (Glipizide 5 Mg Tablet) 10 mg PO DINNER [facility] Last Admin: 09/21/20 16:50 Dose: 10 mg Documented by: Hydroxyzine Pamoate (Hydroxyzine Amaya 25 Mg Capsule) 100 mg PO TID PRN PRN PRN Reason: ANXIETY Sodium Chloride () 250 mls @ 15 mls/hr IV .[id number] PRN PRN Reason: Saline Flush Sodium Chloride () 250 mls @ 15 mls/hr IV .[id number] PRN PRN Reason: Additional IVPB Infusion Ceftriaxone Sodium (Rocephin) 1 gm in 50 mls @ 100 mls/hr IV Q24 [facility] Last Infusion: 09/22/20 10:12 Dose: Infused Documented by: Insulin Human Lispro (Insulin Lispro 100 Unit/Ml Insuln.Pen) 0 unit SC [facility]; Protocol Last Admin: 09/22/20 11:08 Dose: 1 units Documented by: Insulin Human Lispro (Insulin Lispro 100 Unit/Ml Insuln.Pen) 4 unit SC [facility] Last Admin: 09/22/20 11:50 Dose: 4 u Documented by: Melatonin (Melatonin 3 Mg Tablet) 3 mg PO QHS [facility] Last Admin: 09/21/20 21:34 Dose: 3 mg Documented by: Nicotine (Nicotine 21 Mg Patch) 21 mg TRANSDERM. DAILY [facility] Last Admin: 09/22/20 09:40 Dose: 21 mg Documented by: Pantoprazole Sodium (Pantoprazole Sodium 20 Mg Tablet) 20 mg PO DAILY [facility] Last Admin: 09/22/20 11:06 Dose: 20 mg Documented by: Sodium Chloride (0.9% Saline Lock 10 Ml Syringe) 10 - 40 ml IV UD PRN PRN Reason: SALINE FLUSH Last Admin: 09/22/20 04:18 Dose: 10 ml Documented by: Discharge Diet: Low fat/ Low Cholesterol, 1800 Calorie Control Diet, 2000 mg Sodium Diet Discharge Activity: Return to Normal Activity Home Medications: Medications to take at Discharge Omeprazole [Prilosec] 20 mg PO DAILY 01/16/18 Buspirone HCl 20 mg PO TID 06/30/18 Glipizide 10 mg PO DINNER 11/27/19 Folic Acid 1 mg PO DAILY 12/14/19 Hydroxyzine Pamoate 100 mg PO TID PRN PRN 12/14/19 Insulin Aspart [Novolog Flexpen] 4 units SC [facility] 12/14/19 Albuterol Aerosols [Ventolin Aerosols] 2.5 mg INHALATION Q2H PRN PRN vial.neb. 12/15/19 Melatonin 3 mg PO QHS PRN PRN tab 12/15/19 Multivitamin with Minerals [Multiple Vitamin] 1 ea PO DAILY 09/20/20 Cephalexin [Keflex] 500 mg PO Q8 #9 cap 09/22/20 Following Prescriptions Were Given to Patient: Cephalexin [Keflex] 500 mg PO Q8 #9 cap Prescription Printed Primary Care Physician: Care Physician,No Primary [Primary Care Provider] - Please follow up with your Primary Care Physician in: 1-2 weeks Please Follow Up With: Psychiatry When: as directed Disposition: Psych Hospital or Unit Minutes spent on discharge:: 35 Patient Condition:: Stable Medical Necessity - Tobacco Use Smoking Status: Current every day smoker Tobacco Use: Cigarettes Meaningful Use Info Meaningful Use Diagnoses (Choose all that apply): None applicable <Jam Wynne - Last Filed: 09/22/20 15:20> Discharge Date and Diagnosis - Primary Discharge Diagnosis Acute Problems: Active Problems (Last Reviewed 09/09/20 @ 10:40 by Shreya Rondon) Drug overdose, intentional (Acute) Suicide attempt (Acute) - Secondary Discharge Diagnosis Chronic Problems: Chronic Problems (Last Reviewed 09/09/20 @ 10:40 by Shreya Rondon) Cellulitis of right ear (Chronic) 1 cm infected cystic lesion right posterior ear Mass of right ear auricle (Chronic) 1 cm infected cystic lesion right posterior ear Diabetes mellitus (Chronic) Normochromic normocytic anemia (Chronic) unknown etiology Substance abuse (Chronic) Depression (Chronic) Hypertension (Chronic) JOAN (generalized anxiety disorder) (Chronic) Borderline personality disorder (Chronic) not sure this is correct.......she has BPD listed as well Branchial cleft sinus (Chronic) Diabetes mellitus type 2, uncontrolled (Chronic) Chronic neck pain (Chronic) Bilateral carpal tunnel syndrome (Chronic) worse on left Hidradenitis suppurativa (Chronic) Painful recurrent right axillary hidradenitis 6 mm hidradenitis right posterior earlobe 4 cm recurrent hidradenitis posterior neck and occipital scalp History of section (Chronic) History of tonsillectomy (Chronic) Morbid obesity (Chronic) Bipolar affective (Chronic) Osteoarthritis (Chronic) Chronic back pain (Chronic) Smoker (Chronic) F17.200 H/O hidradenitis suppurativa (Chronic) Z87.2 Hospital Course and Treatment Summary of Care Provided: This patient was seen in conjunction with Kishan Sneed PA-C . I have independently interviewed and examined the patient and reviewed pertinent historical, laboratory, and other data. Please refer to Kishan Sneed PA-C note for details of this patient's presentation, findings, and recommendations. I have reviewed Kishan Sneed PA-C note and concur with documented findings. In brief, patient is a 35-year-old lady with history of bipolar disorder with previous suicidal attempt admitted after an intentional drug overdose Hospital course: As documented above - Physical Exam Vitals/I&O's: Vital Signs Temp Pulse Resp BP Pulse Ox 98.1 F 85 16 105/59 L 97 09/22/20 14:43 09/22/20 14:43 09/22/20 14:43 09/22/20 14:43 09/22/20 14:43 Oxygen Delivery Method Room Air Weight: 98.43 kg Body Mass Index (BMI) 36.1 Finger Stick Blood Glucose 161 Intake and Output for Last 24 Hours 09/21/20 09/21/20 09/22/20 00:59 23:59 23:59 Intake Total 540 / 540 Output Total 900 / 900 Balance -360 / -360 Microbiology Past 72 Hours 09/20/20 09:45 Urine Catheter - Vasquez Urine Culture - Preliminary Presumptive E. coli Laboratory Results 09/21/20 16:47: POC Glucose 163 H 09/21/20 21:29: POC Glucose 132 H 09/22/20 06:42: POC Glucose 148 H 09/22/20 07:05: WBC 11.6 H, RBC 3.86 L, Hgb 11.2 L, Hct 36.2 L, MCV 93.8, MCH 29.0, MCHC 30.9 L, RDW Std Deviation 55.0 H, RDW Coeff of Radha 15.9 H, Plt Count 353, MPV 9.4, Immature Gran % (Auto) 0.400, Neut % (Auto) 55.1, Lymph % (Auto) 34.4, Hinds % (Auto) 5.8, Eos % (Auto) 3.7, Baso % (Auto) 0.6, Absolute Neuts (auto) 6.4, Absolute Lymphs (auto) 4.00, Nucleated RBC % 0 09/22/20 07:05: Sodium 140, Potassium 3.8, Chloride 109 H, Carbon Dioxide 23.0, Anion Gap 8, BUN 9, Creatinine 0.90, Estim Creat Clear Calc 74.62, Est GFR (MDRD) Af Amer 91, Est GFR (MDRD) Non-Af 75, BUN/Creatinine Ratio 10.0, Glucose 154 H, Calcium 8.9, Total Bilirubin 0.50, AST 19, ALT 26, Alkaline Phosphatase 77, Total Creatine Kinase 154, Total Protein 5.9 L, Albumin 3.1 L, Globulin 2.8, Albumin/Globulin Ratio 1.1 09/22/20 07:05: [place] 1.10 09/22/20 11:07: POC Glucose 175 H Current Medications Albuterol Sulfate (Albuterol 2.5 Mg/3 Ml Vial.Neb.) 2.5 mg INHALATION Q2H PRN PRN PRN Reason: SOB/Wheezing Last Admin: 09/22/20 11:15 Dose: 2.5 mg Documented by: Buspirone HCl (Buspirone 15 Mg Tablet) 15 mg PO TID [facility] Last Admin: 09/22/20 13:07 Dose: 15 mg Documented by: Buspirone HCl (Buspirone 5 Mg Tablet) 5 mg PO TID [facility] Last Admin: 09/22/20 13:02 Dose: 5 mg Documented by: Cephalexin (Cephalexin 500 Mg Capsule) 500 mg PO Q8 [facility] Last Admin: 09/22/20 13:02 Dose: 500 mg Documented by: Glipizide (Glipizide 5 Mg Tablet) 10 mg PO DINNER [facility] Last Admin: 09/21/20 16:50 Dose: 10 mg Documented by: Hydroxyzine Pamoate (Hydroxyzine Amaya 25 Mg Capsule) 100 mg PO TID PRN PRN PRN Reason: ANXIETY Sodium Chloride () 250 mls @ 15 mls/hr IV .[id number] PRN PRN Reason: Saline Flush Sodium Chloride () 250 mls @ 15 mls/hr IV .[id number] PRN PRN Reason: Additional IVPB Infusion Ceftriaxone Sodium (Rocephin) 1 gm in 50 mls @ 100 mls/hr IV Q24 [facility] Last Infusion: 09/22/20 10:12 Dose: Infused Documented by: Insulin Human Lispro (Insulin Lispro 100 Unit/Ml Insuln.Pen) 0 unit SC ACHS [facility]; Protocol Last Admin: 09/22/20 11:08 Dose: 1 units Documented by: Insulin Human Lispro (Insulin Lispro 100 Unit/Ml Insuln.Pen) 4 unit SC ACHS [facility] Last Admin: 09/22/20 11:50 Dose: 4 u Documented by: Melatonin (Melatonin 3 Mg Tablet) 3 mg PO QHS [facility] Last Admin: 09/21/20 21:34 Dose: 3 mg Documented by: Nicotine (Nicotine 21 Mg Patch) 21 mg TRANSDERM. DAILY [facility] Last Admin: 09/22/20 09:40 Dose: 21 mg Documented by: Pantoprazole Sodium (Pantoprazole Sodium 20 Mg Tablet) 20 mg PO DAILY [facility] Last Admin: 09/22/20 11:06 Dose: 20 mg Documented by: Sodium Chloride (0.9% Saline Lock 10 Ml Syringe) 10 - 40 ml IV UD PRN PRN Reason: SALINE FLUSH Last Admin: 09/22/20 04:18 Dose: 10 ml Documented by: Inpatient E&M: [id number] Disch Hosp
--- NOTE | 2020-09-22 13:57 | NURSING ---
Yuliana [facility] on the phone to complete evaluation with patient. Sitter remains at bedside.
--- NOTE | 2020-09-22 14:07 | PHA.DC.MR ---
Pharmacy Service has performed discharge medication reconciliation for this patient. The patient's discharge medication list was reviewed for discrepancies and discrepancies were resolved. Home Medications Omeprazole [Prilosec] 20 mg PO DAILY 01/16/18 Buspirone HCl 20 mg PO TID 06/30/18 Glipizide 10 mg PO DINNER 11/27/19 Folic Acid 1 mg PO DAILY 12/14/19 Hydroxyzine Pamoate 100 mg PO TID PRN PRN 12/14/19 Insulin Aspart [Novolog Flexpen] 4 units SC [facility] 12/14/19 Albuterol Aerosols [Ventolin Aerosols] 2.5 mg INHALATION Q2H PRN PRN vial.neb. 12/15/19 Melatonin 3 mg PO QHS PRN PRN tab 12/15/19 Multivitamin with Minerals [Multiple Vitamin] 1 ea PO DAILY 09/20/20 Cephalexin [Keflex] 500 mg PO Q8 #9 cap 09/22/20
[2020-09-22] MEDS: Phenazopyridine 95 MG Tablet 190 MG PO (14:50)
[2020-09-22] MEDS: glipiZIDE 5 MG Tablet 10 MG PO (16:35)
[2020-09-22 16:40] LABS: Bedside Glucose 166 mg/dL (70-110)
[2020-09-22] MEDS: hydrOXYzine PAM 25 MG Capsule 100 MG PO (19:55)
[2020-09-22] MEDS: MELATONIN 3 MG TABLET PO (19:55)
--- NOTE | 2020-09-22 21:27 | NURSING ---
Report called to augie in the [facility]
== END 2020-09-22 21:19 | DRG 918 ==
LOC: ED 11:53 → PCU 12:15
PROVIDERS: Hospitalist; Physician Assistant; Admitting Provider Family Medicine; Emergency Provider Emergency Medicine; Visit Provider Internal Medicine
DX: T43.592A Poisoning by other antipsychotics and neuroleptics, intentional self-harm, initial encounter (principal); E87.2 Acidosis; N39.0 Urinary tract infection, site not specified; F15.20 Other stimulant dependence, uncomplicated; F19.20 Other psychoactive substance dependence, uncomplicated; B96.20 Unspecified Escherichia coli [E. coli] as the cause of diseases classified elsewhere; T43.022A Poisoning by tetracyclic antidepressants, intentional self-harm, initial encounter; T38.3X2A Poisoning by insulin and oral hypoglycemic [antidiabetic] drugs, intentional self-harm, initial encounter; T47.1X2A Poisoning by other antacids and anti-gastric-secretion drugs, intentional self-harm, initial encounter; T43.212A Poisoning by selective serotonin and norepinephrine reuptake inhibitors, intentional self-harm, initial encounter; T56.892A Toxic effect of other metals, intentional self-harm, initial encounter; T46.6X2A Poisoning by antihyperlipidemic and antiarteriosclerotic drugs, intentional self-harm, initial encounter; T44.6X2A Poisoning by alpha-adrenoreceptor antagonists, intentional self-harm, initial encounter; R53.83 Other fatigue; R00.0 Tachycardia, unspecified; Y92.830 Public park as the place of occurrence of the external cause; I10 Essential (primary) hypertension; E11.65 Type 2 diabetes mellitus with hyperglycemia; E78.5 Hyperlipidemia, unspecified; J45.909 Unspecified asthma, uncomplicated; K21.9 Gastro-esophageal reflux disease without esophagitis; M19.90 Unspecified osteoarthritis, unspecified site; E66.01 Morbid (severe) obesity due to excess calories; F31.9 Bipolar disorder, unspecified; F41.1 Generalized anxiety disorder; F60.3 Borderline personality disorder; F17.210 Nicotine dependence, cigarettes, uncomplicated; Z68.36 Body mass index [BMI] 36.0-36.9, adult; Z91.5 Personal history of self-harm; Z79.4 Long term (current) use of insulin; Z79.899 Other long term (current) drug therapy
CPT/HCPCS: 36415; 70450; 71045; 80048; 80053; 80178; 80307; 80320; 80329; 81001; 81025; 82550; 82962; 83605; 83735; 85025; 87086; 87088; 87186; 93005; 94640; 97802; 99285; 99406; J7030; J7040; A4216; G0480; J2405

== ENCOUNTER → 2020-10-22 | Outpatient (CLI) | payer MEDICARE, MEDICAID, SELFPAY ==
[2020-10-22 14:16] VITALS: BMI 36.4
== END | disposition home or self-care (01) ==
LOC: LABSPEC 16:29
PROVIDERS: Visit Provider Nurse Practitioner Women's Health
DX: M54.9 Dorsalgia, unspecified (principal); G89.29 Other chronic pain; M54.2 Cervicalgia
CPT/HCPCS: 87086; 87088

== ENCOUNTER → 2021-02-10 | Outpatient (CLI) | payer MEDICARE, MEDICAID, SELFPAY ==
[2021-02-10 09:47] VITALS: BMI 31.4
[2021-02-10 12:01] LABS: Internal QC Validated? YES +Cl - CLEAR BKGD
[2021-02-10 12:04] LABS: Pregnancy, Urine Negative Negative
== END | disposition home or self-care (01) ==
LOC: LABSPEC 10:21
PROVIDERS: PCP Family Medicine; Referring Provider Internal Medicine Endocrinology, Diabetes & Metabolism; Visit Provider Internal Medicine Endocrinology, Diabetes & Metabolism
DX: E11.9 Type 2 diabetes mellitus without complications (principal)
CPT/HCPCS: 81025

== ENCOUNTER 2021-02-12 09:58 | Emergency (ER) | payer MEDICARE, MEDICAID, SELFPAY ==
[2021-02-10 09:47] VITALS: BMI 31.4
[2021-02-12 10:00] VITALS: BP 120/89; PULSE 108; RESP 20; TEMP 36.6; O2SAT 100; BMI 31.9
--- NOTE | 2021-02-12 10:24 | ED.VIS.PSYCH ---
History of Present Illness Chief Complaint: Mental Health Informant: Patient, - - police Onset: Days - several Context: Gradual Onset Conflict: Family, Financial Timing: Continuous Current Severity: Severe Maximum Severity: Severe Worsened by: Situational factors Relieved by: ext-release aripiprazole she had a month ago Associated Symptoms: Depressed. Negative for: Suicidal Thoughts, Paranoia, Visual Hallucinations, Auditory Hallucinations Narrative: Patient states she has a history of bipolar disorder and has been more emotional lately and anxious. She states that she is a self mutilator, and has been since she has been a child, she does so in order to release stress. As a result she has been doing this more lately, she burned herself and used a knife to give herself an abrasion the other day, both on her left hand. She denies any of this being a suicidal gesture and denies being suicidal today. [place] slip that police wrote bringing her here today states that she had a knife in a bottle of pills and would have taken them if they were not taken away from her. When I asked her about this, she says this is not entirely accurate. She states that she had an argument with her boyfriend last night, and as result she was feeling more anxious and emotional than she had been this past week, and states that she simply asked her boyfriend to keep her bottle of pills and the pocket knife that she owns away from her so that she does not do anything with them including self-mutilation. She states she never was in possession of the knife or to the bottle of pills within the past 48 hours, nor did she say anything about wanting to kill herself yesterday even when she was upset. She states that she recently had her first injection of extended release aripiprazole from her psychiatrist which seemed to help but it has seemed like it was wearing off in the past week and she was wondering if she could get another dose which she is due for on Tuesday (today being ), and additionally get a higher dose if it is available. She also states that she is on a progestin-only control pill due to being a smoker over the age of 35, and missed a couple doses accidentally and wants to make sure she is not . She did a test earlier this week that was negative but she is concerned that she might have done it too early. She does not have any acute abdominal or vaginal symptoms. - Past Medical History (1) Mixed hyperlipidemia Status: Chronic (2) Obesity Status: Chronic (3) Diabetes Status: Chronic (4) Normochromic normocytic anemia Status: Chronic Comment: unknown etiology (5) Substance abuse Status: Chronic (6) Depression Status: Chronic (7) Hypertension Status: Chronic (8) JOAN (generalized anxiety disorder) Status: Chronic (9) Borderline personality disorder Status: Chronic Comment: not sure this is correct.......she has BPD listed as well (10) Diabetes mellitus type 2, uncontrolled Status: Chronic (11) Bilateral carpal tunnel syndrome Status: Chronic Comment: worse on left (12) Hidradenitis suppurativa Status: Chronic Comment: Painful recurrent right axillary hidradenitis 6 mm hidradenitis right posterior earlobe 4 cm recurrent hidradenitis posterior neck and occipital scalp (13) Bipolar affective Status: Chronic (14) Osteoarthritis Status: Chronic (15) Chronic back pain Status: Chronic Past Medical History - Allergies and Home Meds Allergies/Adverse Reactions: Allergies lamotrigine [From Lamictal] Allergy (Mild, Verified 02/12/21 10:05) Rash adhesive tape Allergy (Verified 02/12/21 10:05) Rash Primary Care Physician: Aj Staley MD [Primary Care Provider] - Surgical History: tonsillectomy, - - Excisional debridement hydradenitis right axilla, C section Lives: Spouse/ Significant Other Smoking Status: Current every day smoker - Family History Maternal Family History: Family History (Last Reviewed 02/10/21 @ 10:[address] Zeke Morales MD) Grandmother Thyroid disorder Father Diabetes Heart disease Hypertension High cholesterol Mother Heart disease Hypertension High cholesterol Colon cancer Family History: Reports: Heart Disease, Hypertension Paternal Family History: Family History (Last Reviewed 02/10/21 @ 10:[address] Zeke Morales MD) Grandmother Thyroid disorder Father Diabetes Heart disease Hypertension High cholesterol Mother Heart disease Hypertension High cholesterol Colon cancer Family History: Reports: Diabetes, Heart Disease, Hypertension Review of Systems General: Denies: Chills, Fever, Sweats Eyes: Denies: Visual changes - bilaterally, Diplopia ENT: Denies: Rhinorrhea, Sore throat Cardiovascular: Denies: Chest pain, Palpitations Respiratory: Denies: Dyspnea, Cough, Dyspnea on exertion Gastrointestinal: Denies: Abdominal pain, Nausea, Vomiting, Diarrhea, Melena, Hematochezia Genitourinary: Denies: Dysuria, Hematuria, Frequency Musculoskeletal: Reports: Back pain - chronic. Denies: Extremity Pain Skin: Reports: Wounds. Denies: Rash Neurological: Denies: Headache, Weakness, Numbness Psych: Reports: Depression, Anxiety. Denies: Suicidal thoughts, Suicidal ideations Physical Exam Vital Signs/Narrative: Vital Signs Temp Pulse Resp BP Pulse Ox 02/12/21 10:00 97.9 F 108 H 20 H 120/89 H 100 Inital Vital Signs reviewed: Yes General: Well nourished, Well developed, - - NAD. tearful. Head: Normocephalic, Atraumatic Eyes: Perrl, EOMI ENT: Moist mucous membranes, No rhinorrhea Neck: Supple, Nontender Cardiovascular: Regular rate, Regular rhythm, No murmurs Respiratory: No distress, CTA bilaterally, Chest nontender Abdomen: Soft, Nontender, Nondistended, Normal bowel sounds Back: Nontender, Normal Inspection Extremities: Nontender, No Edema Skin: Normal color, No rash Neurological: Alert, Oriented x3, Cranial nerves II-XII grossly intact, Normal Strength, Normal Sensation Psych: Normal Speech Pattern, No suicidal or homicidal ideation, Good Insight, Depressed. Negative for: Suicidal thoughts - denies, Homicidal thoughts, Hallucinations, Delusions, Paranoid Ideation Diagnostic/Tx/Re-eval Laboratory Results 02/12/21 02/12/21 02/12/21 11:15 12:05 12:20 Urine Test Negative Urine Opiates Screen NEGATIVE Urine Methadone Screen NEGATIVE Ur Barbiturates Screen NEGATIVE Ur Phencyclidine Scrn NEGATIVE Ur Amphetamines Screen POSITIVE H U Methamphetamin-MDMA POSITIVE H U Benzodiazepines Scrn NEGATIVE Urine Cocaine Screen NEGATIVE U Cannabinoids Screen POSITIVE H Ur Drug Screen Comment Ethyl Alcohol < 3.0 Social work saw the patient and agrees with my assessment that she is not high risk for immediate harm to herself, she is forward thinking, she does want to have her medicines adjusted so she feels better, and she discussed with her psychiatrist who agrees with this but asked for a toxicology screen because she has a history of methamphetamine abuse which certainly could be contributing to her symptoms. Toxicology is positive for this. Patient denies using any recently. She is comfortable waiting until Tuesday to follow-up for her next dose of medication, she was given her morning medications which she missed and is discharged in stable condition. ED Disposition - Plan for ED Patient: Disposition: Home or Assisted Living Diagnosis: Anxiety, Bipolar affective Instructions: ED Bipolar Disorder Referrals: Aj Staley MD [Primary Care Provider] - Amie Gama MD [NON-STAFF] - Keep Kelley appointment Additional Instructions: Your is negative. Follow-up as scheduled on Tuesday.
[2021-02-12 11:41] LABS: Amphetamine Urine VISTA POSITIVE (<1000 ng/mL); Barbiturate Urine VISTA NEGATIVE (< 200 ng/mL); Benzodiazepine Urine VISTA NEGATIVE (< 200 ng/mL); Cocaine Urine VISTA NEGATIVE (< 300 ng/mL); Ecstacy Urine VISTA POSITIVE (< 500 ng/mL); Methadone Urine VISTA NEGATIVE (< 300 ng/mL); PCP Urine VISTA NEGATIVE (< 25 ng/mL); THC Urine VISTA POSITIVE (< 50 ng/mL); Vista UDS pH Range 5
[2021-02-12 12:33] LABS: Internal QC Validated? YES +Cl - CLEAR BKGD; Pregnancy, Urine Negative Negative; Record Kit Lot#,Urine Preg 42077
--- NOTE | 2021-02-12 12:33 | ED.RN ---
ok for dc after meds given that pt didnt take this am. saftey plan drawn up by antonia prieto. pt wanting to get to people to people this afternon.
[2021-02-12 12:42] LABS: Alcohol, Blood (Medical)-Serum < 3.0 mg/dL
[2021-02-12] MEDS: busPIRone 5 MG Tablet 20 MG PO (12:50)
[2021-02-12] MEDS: Gabapentin 300 MG Capsule PO (12:51)
[2021-02-12 12:58] VITALS: BP 122/76; PULSE 103; RESP 16; O2SAT 97
[2021-02-12] MEDS: hydrOXYzine PAM 25 MG Capsule 100 MG PO (13:09)
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
== END 2021-02-12 13:17 | disposition home or self-care (01) ==
PROVIDERS: Emergency Provider Emergency Medicine; PCP Family Medicine
DX: F31.9 Bipolar disorder, unspecified (principal); F41.1 Generalized anxiety disorder; E11.65 Type 2 diabetes mellitus with hyperglycemia; I10 Essential (primary) hypertension; E78.2 Mixed hyperlipidemia; D64.9 Anemia, unspecified; M54.9 Dorsalgia, unspecified; G89.29 Other chronic pain; M19.90 Unspecified osteoarthritis, unspecified site; G56.03 Carpal tunnel syndrome, bilateral upper limbs; E66.9 Obesity, unspecified; F17.200 Nicotine dependence, unspecified, uncomplicated; Z79.899 Other long term (current) drug therapy
CPT/HCPCS: 36415; 80307; 81025; 82077; 99285

== ENCOUNTER 2021-05-12 00:57 | Emergency (ER) | payer MEDICARE, MEDICAID, SELFPAY ==
[2021-05-12 00:58] VITALS: BP 118/94; PULSE 108; RESP 18; TEMP 37.2; O2SAT 99; BMI 31.6
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
[2021-05-12] MEDS: HYDROcodone Bitartrate/Apap 5/325 Tablet PO (04:01)
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
[2021-05-12 04:07] VITALS: BP 110/60; PULSE 86; RESP 16; O2SAT 98
== END 2021-05-12 04:08 | disposition home or self-care (01) ==
PROVIDERS: Emergency Provider Emergency Medicine; PCP Family Medicine
DX: S62.141A Displaced fracture of body of hamate [unciform] bone, right wrist, initial encounter for closed fracture (principal); S62.634A Displaced fracture of distal phalanx of right ring finger, initial encounter for closed fracture; S62.632A Displaced fracture of distal phalanx of right middle finger, initial encounter for closed fracture; S16.1XXA Strain of muscle, fascia and tendon at neck level, initial encounter; S39.012A Strain of muscle, fascia and tendon of lower back, initial encounter; T71.193A Asphyxiation due to mechanical threat to breathing due to other causes, assault, initial encounter; Y04.8XXA Assault by other bodily force, initial encounter; Y93.9 Activity, unspecified; Y92.9 Unspecified place or not applicable; Y99.9 Unspecified external cause status; M54.5 Low back pain; G89.29 Other chronic pain; I10 Essential (primary) hypertension; E78.5 Hyperlipidemia, unspecified; M19.90 Unspecified osteoarthritis, unspecified site; K21.9 Gastro-esophageal reflux disease without esophagitis; F31.9 Bipolar disorder, unspecified; F41.9 Anxiety disorder, unspecified; E66.01 Morbid (severe) obesity due to excess calories; F17.210 Nicotine dependence, cigarettes, uncomplicated; Z79.84 Long term (current) use of oral hypoglycemic drugs; Z79.899 Other long term (current) drug therapy
CPT/HCPCS: 29125; 72040; 72100; 73110; 73130; 99284; A4216

== ENCOUNTER → 2021-09-02 12:00 | Outpatient (CLI) | payer MEDICARE, MEDICAID, SELFPAY ==
[2021-09-02 15:37] LABS: AST(SGOT) 20 U/L (15-37); Alanine Aminotransfer ALT/SGPT 32 U/L (13-56); Alkaline Phosphatase 74 U/L (45-117); Anion Gap 8 (5-15); BUN 10 mg/dL (7-18); BUN/Creat Ratio 9.9 RATIO (10-20); Calcium,Total 9.7 mg/dL (8.5-10.1); Chloride 103 mmol/L (98-107); Cholesterol 139 mg/dL (200); Creatinine, Serum 1.01 mg/dL (0.55-1.02); EST Glomerular Filtration Rate 66 mL/min (>60); Est Glom Filt Rate - Afr Amer 79 mL/min (>60); Globulin 4.2 g/dL (2.2-4.2); Glucose 62 mg/dL (74-106); High Density Lipoprotein 58 mg/dL; Potassium 4.8 mmol/L (3.5-5.1); Protein, Total 8.2 g/dL (6.4-8.2); Sodium Level 140 mmol/L (136-145); Thyroid Stim Hormone (TSH) 1.09 uIU/mL (0.358-3.74); Triglycerides 90 mg/dL; Very Low Density Lipoprotein 18 mg/dL (5-40)
== END ==
PROVIDERS: PCP Family Medicine; Referring Provider Nurse Practitioner Family; Visit Provider Nurse Practitioner Family
DX: E11.65 Type 2 diabetes mellitus with hyperglycemia (principal); F31.9 Bipolar disorder, unspecified; E66.01 Morbid (severe) obesity due to excess calories
CPT/HCPCS: 36415; 80053; 80061; 84443

== ENCOUNTER 2021-11-06 07:30 | Emergency (ER) | payer MEDICARE, MEDICAID, SELFPAY ==
[2021-11-06 07:31] VITALS: BP 107/89; PULSE 90; RESP 22; TEMP 37.1; BMI 33.2
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
[2021-11-06 08:39] VITALS: BP 108/88
== END 2021-11-06 08:39 | disposition home or self-care (01) ==
PROVIDERS: Emergency Provider Emergency Medicine; PCP Family Medicine
DX: S09.90XA Unspecified injury of head, initial encounter (principal); S16.1XXA Strain of muscle, fascia and tendon at neck level, initial encounter; Y04.2XXA Assault by strike against or bumped into by another person, initial encounter; Y93.9 Activity, unspecified; Y92.9 Unspecified place or not applicable; Y99.9 Unspecified external cause status; I10 Essential (primary) hypertension; E78.5 Hyperlipidemia, unspecified; J45.909 Unspecified asthma, uncomplicated; K21.9 Gastro-esophageal reflux disease without esophagitis; M19.90 Unspecified osteoarthritis, unspecified site; G62.9 Polyneuropathy, unspecified; M54.9 Dorsalgia, unspecified; G89.29 Other chronic pain; F31.9 Bipolar disorder, unspecified; F41.9 Anxiety disorder, unspecified; E66.01 Morbid (severe) obesity due to excess calories; F17.210 Nicotine dependence, cigarettes, uncomplicated; Z79.84 Long term (current) use of oral hypoglycemic drugs; Z79.899 Other long term (current) drug therapy
CPT/HCPCS: 70450; 72040; 99284

== ENCOUNTER 2022-10-06 12:59 | Emergency (ER) | payer MEDICARE, MEDICAID, SELFPAY ==
[2022-10-06 13:02] VITALS: BP 149/96; PULSE 116; RESP 18; TEMP 36.8; O2SAT 99; BMI 29.5
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
[2022-10-06 14:06] LABS: Absolute Lymphocyte Count 2.82 X10^3/uL (0.83-4.51); Absolute Neutrophil Count 7.5 X10^3/uL (2.0-7.7); Basophil# 0.06 X10^3/uL; Basophil% 0.5 % (0-1); Eosinophil# 0.12 X10^3/uL; Eosinophils% 1.1 % (0-5); Hematocrit 45.8 % (37-47); Hemoglobin 15.1 g/dL (12.0-15.0); Lymphocyte # 2.82 X10^3/ul (0.83-4.51); Lymphocyte % 25.5 % (19-41); Mean Corpuscular Hgb 32.6 pg (27.0-32.0); Mean Corpuscular Volume 98.9 fL (81-99); Mean Platelet Vol. 8.7 fl (6.2-12.0); Monocyte# 0.53 X10^3/uL; Monocyte% 4.8 % (0-10); NRBC Flagged by Analyzer 0 % (0-5); Neutrophil # 7.51 X10^3/uL (2.7-7.7); Neutrophil % 67.7 % (47-70); Platelet Count 412 K/mm3 (150-450); RBC Distribution Width CV 12.7 % (11.6-14.6); RBC Distribution Width SD 46.2 fl (35.1-43.9); Red Blood Count 4.63 M/mm3 (4.2-5.4); White Blood Count 11.1 K/mm3 (4.4-11.0)
[2022-10-06 14:15] LABS: Bacteria 0 SEEN /hpf (None Seen); Mucous, Urine 0 SEEN /hpf (<or=2+)
[2022-10-06 14:16] LABS: Color, Urine Yellow (Yellow); Glucose, Dipstick Normal (Normal); Ketone-Dipstick Negative (Negative); Leukocyte Esterase-Dipstick 25 /ul (Negative); Nitrite-Dipstick Negative (Negative); Occult Blood-Urine 25 /ul (Negative); Protein-Dipstick 30 mg/dl (Negative); Urine Bilirubin Dipstick Negative (Negative); Urine Clarity Sl. Cloudy (Clear); Urine Urobilinogen Normal (Normal); Urine pH 6.5 (5.0 - 8.0)
[2022-10-06 14:20] LABS: Internal QC Validated? YES +Cl - CLEAR BKGD; Pregnancy, Serum, hCG Quali. NEGATIVE Negative
--- NOTE | 2022-10-06 14:21 | EX.ED.VIS.PS ---
HPI HPI - Psych History of Present Illness Chief Complaint: Suicidal Informant: patient Narrative Narrative: Patient comes in with suicidal thoughts. She has been fighting with her boyfriend. She evidently lost custody of her daughter. She took most of her oral medicines today. She is not sure of the numbers but it was a large number. She does feel a little bit shaky. Although its not on her med list, she did say that she took a lot of metformin. She did not take any of the injection of Trulicity or insulin. [facility] Medical History Abscess of breast Abscess of sternal region Alcohol abuse Anxiety and depression Asthma Bipolar 1 disorder Bipolar affective Cat bite Cat bite of right hand with infection Cat scratch Cat scratch of left hand with infection Cat scratch of right hand with infection Chronic back pain Drug abuse GERD (gastroesophageal reflux disease) Hidradenitis HTN (hypertension) Hyperlipidemia Morbid obesity Neuropathy Non-healing surgical wound Open wound of chest wall, complicated Open wound of left axillary region Osteoarthritis Osteoarthritis Skin graft failure Home Medications buspirone 10 mg tablet 20 mg PO TID ANXIETY 06/30/18 [History Last Taken 10/16/19] hydroxyzine pamoate 50 mg capsule 100 mg PO TID PRN PRN Anxiety 12/14/19 [History Last Taken Unknown] albuterol sulfate 2.5 mg/3 mL (0.083 %) solution for nebulization 2.5 mg (3 mL) inhalation Q2H PRN PRN SOB/Wheezing 12/15/19 [Rx Last Taken Unknown] aripiprazole 300 mg intramuscular suspension,extended release (Abilifdaniel Maintena) 662 mg IM QMONTH 10/22/20 [History Last Taken 10/04/22] clonidine HCl 0.1 mg tablet 0.1 mg PO QHS 10/22/20 [History Last Taken Unknown] melatonin 3 mg tablet 10 mg PO QHS PRN PRN Insomnia 10/22/20 [History Last Taken Unknown] mirtazapine 30 mg tablet (Remeron) 30 mg PO QHS 10/22/20 [History Last Taken Unknown] gabapentin 300 mg capsule 300 mg PO 4X/DAY 02/12/21 [History Last Taken Unknown] tizanidine 4 mg tablet 4 mg PO 4X/DAY 02/12/21 [History Last Taken Unknown] naproxen 500 mg tablet 500 mg PO BID PRN #20 tabs 05/12/21 [Rx Last Taken Unknown] atorvastatin 10 mg tablet 20 mg PO QHS #90 tabs 07/20/21 [Rx Last Taken Unknown] spironolactone 100 mg tablet 100 mg PO DAILY 07/29/21 [History Last Taken Unknown] pantoprazole 40 mg tablet,delayed release 40 mg PO DAILY 03/09/22 [History Last Taken Unknown] Trulicity 3 mg/0.5 mL subcutaneous pen injector (dulaglutide) 3 mg (0.5 mL) subcut QWEEK #6 mL 09/07/22 [Rx Last Taken Unknown] Allergy/AdvReac Type Severity Reaction Status Date / Time lamotrigine [From Lamictal] Allergy Mild Rash Verified 10/06/22 13:08 adhesive tape Allergy Rash Verified 10/06/22 13:08 Family History Grandmother Thyroid disorder Father Diabetes Heart disease Hypertension High cholesterol Mother Heart disease Hypertension High cholesterol Colon cancer Surgical History H/O neck surgery History of axillary surgery History of section History of tonsillectomy [place] teeth removed Social History household members: family and children number of children: 1 Smoking Status: Current every day smoker tobacco type: cigarettes second hand exposure: No alcohol intake: never substance use type: does not use and former substance user caffeine: Yes what type of physical activity do you participate in: none seatbelt use: always do you feel safe at home: Yes additional social history: single- disability ROS ROS ED Constitutional Constitutional ED: Denies chills or fever(s) Eyes Eyes: Denies blurry vision, change in vision or diplopia ENT ENT ED: Denies rhinorrhea Cardiovascular Cardiovascular: Denies chest pain, palpitations or racing heartbeat Respiratory/Chest Respiratory/Chest: Denies cough or dyspnea Gastrointestinal Gastrointestinal: Denies diarrhea, nausea or vomiting Musculoskeletal Musculoskeletal: Denies myalgias Integumentary Denies rash Neurologic Neurologic: Reports other Details: Patient has a nonspecific shakiness feeling. ; Denies paresthesias or weakness Psychiatric Psychiatric: Reports depression, suicidal ideation and suicidal thoughts Endocrine Endocrinology: Denies polydipsia or polyuria Hematologic/Lymphatic Hematologic/Lymphatic: Denies easy bleeding or easy bruising Allergic/Immunologic Allergic/Immunologic ED: Denies urticaria EXAM Physical Exam Const Vital Signs: 10/06/22 13:02 10/06/22 16:58 10/06/22 18:27 Temperature 98.2 F Temperature Source Temporal Pulse Rate 116 H 133 H 124 H Respiratory Rate 18 21 H 19 H Blood Pressure 149/96 H 120/75 Blood Pressure Mean 113 90 Pulse Ox 99 97 Oxygen Delivery Method Room Air 10/06/22 20:23 Temperature Temperature Source Pulse Rate 127 H Respiratory Rate 13 Blood Pressure 140/104 H Blood Pressure Mean 116 Pulse Ox 94 Oxygen Delivery Method Room Air Positive well nourished and well developed Constitutional Narrative: Patient is awake alert and conversant General Appearance ED: well developed and NAD; Negative for pallor HEENT Reports moist mucous membranes Eyes Eyes Narrative: Pupils are about 2 and half millimeters equal and are reactive. General Eye ED: Negative for scleral icterus Neck no JVD Resp normal respiratory effort and clear to auscultation bilaterally Cardio no murmurs Rate: tachycardic; Negative for regular rate Rhythm: regular rhythm GI non-tender, non-distended and no masses Palpation: soft Back/Spine no CVA tenderness Neuro oriented x3 Neuro Narrative: Patient is awake alert oriented x3. Psych Psych Narrative: Patient is conversant. She is cooperative. She does have a somewhat flat affect and is slightly slow to answer. She is borderline tearful. She admits to having nothing to live for. Skin General Skin Exam: Negative for jaundice or pallor Lesions: No no lesions Rashes: No no rashes MDM MDM MDM Narrative Medical decision making narrative: Labs show negative Tylenol, salicylate, ethanol. Tox is positive for ecstasy methamphetamines and cannabis. Electrolytes show no marked abnormalities other than minimal elevation in creatinine. Liver function tests are overall normal. Glucose is a little bit low at 55 but the patient is still awake alert and appropriate. CBC shows minimal elevation of white count hemoglobin. Patient is still awake alert and appropriate. She did take multiple meds today. She is being watched here for a period of time. If she continues to improve and stabilize she may be able to be admitted to psychiatric facility. However, if we have issues with heart rate, blood pressure, glucose or sedation or other issues she may need admission medically. Patient now states that she took gabapentin, Remeron, BuSpar, doxycycline, spironolactone, pantoprazole. She states these are the medicines that she has available. She inks she took all of these medicines but is unsure of the number of them. But it was a large amount. However these are different than what she had told me. Patient has been awake alert here. She is not sick or toxic. She has been up walking to the bathroom without any difficulty. Her heart rate is still a little quick. We will give her some IV fluids for this. We are rechecking blood sugar and that is good at 134. At this point the patient if anything has improved. I believe she is medically cleared for psychiatric evaluation. This is pending at this time. Lab Data Attestation: I reviewed the patient's lab results. Labs: Laboratory Results - last 24 hr 10/06/22 10/06/22 10/06/22 13:55 13:55 13:55 WBC 11.1 H RBC 4.63 Hgb 15.1 H Hct 45.8 MCV 98.9 MCH 32.6 H MCHC 33.0 RDW Std Deviation 46.2 H RDW Coeff of Radha 12.7 Plt Count 412 MPV 8.7 Immature Gran % (Auto) 0.400 Neut % (Auto) 67.7 Lymph % (Auto) 25.5 Island % (Auto) 4.8 Eos % (Auto) 1.1 Baso % (Auto) 0.5 Absolute Neuts (auto) 7.5 Absolute Lymphs (auto) 2.82 Nucleated RBC % 0 Sodium 140 Potassium 4.1 Chloride 106 Carbon Dioxide 29.0 Anion Gap 5 BUN 8 Creatinine 1.07 H Estim Creat Clear Calc 64.15 Est GFR (MDRD) Af Amer 74 Est GFR (MDRD) Non-Af 61 BUN/Creatinine Ratio 7.5 L Glucose 55 L Calcium 9.8 Total Bilirubin 0.70 AST 19 ALT 27 Alkaline Phosphatase 72 Total Protein 8.3 H Albumin 4.2 Globulin 4.1 Albumin/Globulin Ratio 1.0 Serum , Qual Urine Color Urine Clarity Urine pH Ur Specific [place] Urine Protein Urine Glucose (UA) Urine Ketones Urine Occult Blood Urine Nitrite Urine Bilirubin Urine Urobilinogen Ur Leukocyte Esterase Urine RBC Urine WBC Ur Squamous Epith Cells Urine Bacteria Urine Mucus Salicylates < 1.7 L Urine Opiates Screen Urine Methadone Screen Acetaminophen < 2.0 L Ur Barbiturates Screen Ur Phencyclidine Scrn Ur Amphetamines Screen MDMA (Ecstasy) Screen U Benzodiazepines Scrn Urine Cocaine Screen U Cannabinoids Screen Ur Drug Screen Comment Ethyl Alcohol < 3.0 POC Glucose 10/06/22 10/06/22 10/06/22 13:55 14:10 14:10 WBC RBC Hgb Hct MCV MCH MCHC RDW Std Deviation RDW Coeff of Radha Plt Count MPV Immature Gran % (Auto) Neut % (Auto) Lymph % (Auto) Island % (Auto) Eos % (Auto) Baso % (Auto) Absolute Neuts (auto) Absolute Lymphs (auto) Nucleated RBC % Sodium Potassium Chloride Carbon Dioxide Anion Gap BUN Creatinine Estim Creat Clear Calc Est GFR (MDRD) Af Amer Est GFR (MDRD) Non-Af BUN/Creatinine Ratio Glucose Calcium Total Bilirubin AST ALT Alkaline Phosphatase Total Protein Albumin Globulin Albumin/Globulin Ratio Serum , Qual NEGATIVE Urine Color Yellow Urine Clarity Sl. Cloudy Urine pH 6.5 Ur Specific [place] 1.010 Urine Protein 30 H Urine Glucose (UA) Normal Urine Ketones Negative Urine Occult Blood 25 H Urine Nitrite Negative Urine Bilirubin Negative Urine Urobilinogen Normal Ur Leukocyte Esterase 25 H Urine RBC 0-5 SEEN Urine WBC 0-5 SEEN Ur Squamous Epith Cells 0-5 SEEN Urine Bacteria 0 SEEN Urine Mucus 0 SEEN Salicylates Urine Opiates Screen NEGATIVE Urine Methadone Screen NEGATIVE Acetaminophen Ur Barbiturates Screen NEGATIVE Ur Phencyclidine Scrn NEGATIVE Ur Amphetamines Screen POSITIVE H MDMA (Ecstasy) Screen POSITIVE H U Benzodiazepines Scrn NEGATIVE Urine Cocaine Screen NEGATIVE U Cannabinoids Screen POSITIVE H Ur Drug Screen Comment Ethyl Alcohol POC Glucose 10/06/22 22:18 WBC RBC Hgb Hct MCV MCH MCHC RDW Std Deviation RDW Coeff of Radha Plt Count MPV Immature Gran % (Auto) Neut % (Auto) Lymph % (Auto) Island % (Auto) Eos % (Auto) Baso % (Auto) Absolute Neuts (auto) Absolute Lymphs (auto) Nucleated RBC % Sodium Potassium Chloride Carbon Dioxide Anion Gap BUN Creatinine Estim Creat Clear Calc Est GFR (MDRD) Af Amer Est GFR (MDRD) Non-Af BUN/Creatinine Ratio Glucose Calcium Total Bilirubin AST ALT Alkaline Phosphatase Total Protein Albumin Globulin Albumin/Globulin Ratio Serum , Qual Urine Color Urine Clarity Urine pH Ur Specific [place] Urine Protein Urine Glucose (UA) Urine Ketones Urine Occult Blood Urine Nitrite Urine Bilirubin Urine Urobilinogen Ur Leukocyte Esterase Urine RBC Urine WBC Ur Squamous Epith Cells Urine Bacteria Urine Mucus Salicylates Urine Opiates Screen Urine Methadone Screen Acetaminophen Ur Barbiturates Screen Ur Phencyclidine Scrn Ur Amphetamines Screen MDMA (Ecstasy) Screen U Benzodiazepines Scrn Urine Cocaine Screen U Cannabinoids Screen Ur Drug Screen Comment Ethyl Alcohol POC Glucose 134 H Radiography Diagnostic Testing: Clinical Impression(s) from Imaging Studies Chest X-Ray 10/06/22 13:40 IMPRESSION: Normal x-ray examination of the chest. Electronically Signed: Solis Martinez MD at 14:39 EST , Chest x-ray seen by me and read by radiology shows no acute process EKG Initial EKG: Comments: EKG done as part of medical clearance read by me shows sinus rhythm with tachycardic rate at 118. No ventricular ectopy. No acute ST elevation or depression. [place] interval QRS duration are normal. QTc is toward the longer end at 468 ms but not markedly abnormal. Discharge Plan Triage Chief Complaint: Suicidal ED Provider: Rogelio Tim Dx/Rx/DC Orders Clinical Impression: Overdose, Suicidal ideation Prescriptions: No Action melatonin 3 mg tablet 10 mg PO QHS PRN PRN (Reason: Insomnia) Abilify Maintena 300 mg suspension,extended rel recon 662 mg IM QMONTH mirtazapine [Remeron] 30 mg tablet 30 mg PO QHS clonidine HCl 0.1 mg tablet 0.1 mg PO QHS spironolactone 100 mg tablet 100 mg PO DAILY pantoprazole 40 mg tablet,delayed release (DR/EC) 40 mg PO DAILY Trulicity 3 mg/0.5 mL pen injector 3 mg subcut QWEEK Qty: 6 2RF buspirone 10 MG tablet 20 mg PO TID hydroxyzine pamoate 50 MG capsule 100 mg PO TID PRN PRN (Reason: Anxiety) albuterol sulfate 2.5 MG/3 ML solution for nebulization 2.5 mg INHALATION Q2H PRN PRN (Reason: SOB/Wheezing) 0RF tizanidine 4 MG tablet 4 mg PO 4X/DAY gabapentin 300 MG capsule 300 mg PO 4X/DAY naproxen 500 mg tablet 500 mg PO BID PRN Qty: 20 0RF atorvastatin 10 mg tablet 20 mg PO QHS Qty: 90 1RF Primary Care Provider: Aj Staley Referrals: Aj Staley MD [Primary Care Provider] - Disposition Disposition: Psychiatric Hospital or Unit
--- NOTE | 2022-10-06 14:22 | ED.RN ---
[facility]. lab was able to get bloodwork.
[2022-10-06 14:25] LABS: Red Blood Cells-Urine 0-5 SEEN /hpf (0-5); Squamous Epithelial Cells - UA 0-5 SEEN /hpf (5-10); White Blood Cells 0-5 SEEN /hpf (0-5)
[2022-10-06 14:27] LABS: AST(SGOT) 19 U/L (15-37); Alanine Aminotransfer ALT/SGPT 27 U/L (13-56); Albumin, Serum 4.2 g/dL (3.2-5.0); Alkaline Phosphatase 72 U/L (45-117); Anion Gap 5 (5-15); BUN 8 mg/dL (7-18); BUN/Creat Ratio 7.5 RATIO (10-20); Calcium,Total 9.8 mg/dL (8.5-10.1); Chloride 106 mmol/L (98-107); Creatinine, Serum 1.07 mg/dL (0.55-1.02); EST Glomerular Filtration Rate 61 mL/min (>60); Est Glom Filt Rate - Afr Amer 74 mL/min (>60); Estimated Creatinine Clearance 64.15 ml/min; Globulin 4.1 g/dL (2.2-4.2); Glucose 55 mg/dL (74-106); Potassium 4.1 mmol/L (3.5-5.1); Protein, Total 8.3 g/dL (6.4-8.2); Sodium Level 140 mmol/L (136-145)
[2022-10-06 14:37] LABS: Amphetamine Urine VISTA POSITIVE (<1000 ng/mL); Barbiturate Urine VISTA NEGATIVE (< 200 ng/mL); Benzodiazepine Urine VISTA NEGATIVE (< 200 ng/mL); Cocaine Urine VISTA NEGATIVE (< 300 ng/mL); Ecstacy Urine VISTA POSITIVE (< 500 ng/mL); Methadone Urine VISTA NEGATIVE (< 300 ng/mL); PCP Urine VISTA NEGATIVE (< 25 ng/mL); THC Urine VISTA POSITIVE (< 50 ng/mL); Vista UDS pH Range 6
[2022-10-06 14:37] LABS: Acetaminophen (Tylenol) Level < 2.0 ug/mL (10.0-30.0); Alcohol, Blood (Medical)-Serum < 3.0 mg/dL; Salicylate < 1.7 mg/dL (2.8-20.0)
--- NOTE | 2022-10-06 16:45 | CM.ED ---
Social Work Collaborating with Dr. Tim. Dr. Tim reports that patient will require medical monitoring for another 5-6 hours before patient will be medically cleared for assessment and placement to an inpatient psychiatric facility. Telephone call to local crisis team, Ryann. This social media sr strategy manager updated Ryann on patient in ED and that patient will require assessment. Ryann aware that patient will not be medically cleared until after social work hours. Ryann to wait on phone call from ED for when patient is medically cleared. Medical team updated. Weston BARRAGAN, LUKAS
[2022-10-06 16:58] VITALS: PULSE 133; RESP 21
[2022-10-06 18:27] VITALS: BP 120/75; PULSE 124; RESP 19; O2SAT 97
[2022-10-06 20:23] VITALS: BP 140/104; PULSE 127; RESP 13; O2SAT 94
[2022-10-06 22:00] VITALS: BP 122/74; PULSE 123; O2SAT 99
[2022-10-06] MEDS: 0.9% Normal Saline 1,000 ML 999 ML IV (22:24)
[2022-10-06 22:40] LABS: Bedside Glucose 134 mg/dL (74-106)
[2022-10-07] VITALS (8 sets, daily range): BP systolic 103–140; BP diastolic 31–89; PULSE 101–113; RESP 12–105; O2SAT 94–99
[2022-10-07] MEDS: LORazepam 0.5 MG Tablet PO ×2 (00:21→08:49)
--- NOTE | 2022-10-07 01:28 | NURSING ---
FAXED OVER PAPERWORK TO [id number]
--- NOTE | 2022-10-07 02:43 | NURSING ---
CRISIS CALLED REFERRED TO [facility] REDMOND
--- NOTE | 2022-10-07 08:19 | ED.RN ---
ACCEPTED AT [facility]- [facility] FAXED.
--- NOTE | 2022-10-07 09:49 | ED.RN ---
ATTEMPTED TO CALL REPORT- WAS PLACED ON HOLD FOR 7 MINUTES. WILL ATTEMPT TO CALL AGAIN.
--- NOTE | 2022-10-07 10:14 | ED.RN ---
REPORT GIVEN TO CLARA PAALCIOS
== END 2022-10-07 10:14 ==
PROVIDERS: Emergency Provider Emergency Medicine; PCP Family Medicine; Visit Provider Emergency Medicine
DX: T38.3X1A Poisoning by insulin and oral hypoglycemic [antidiabetic] drugs, accidental (unintentional), initial encounter (principal); F31.9 Bipolar disorder, unspecified; E66.01 Morbid (severe) obesity due to excess calories; Z79.4 Long term (current) use of insulin; R45.851 Suicidal ideations; F41.9 Anxiety disorder, unspecified; J45.909 Unspecified asthma, uncomplicated; K21.9 Gastro-esophageal reflux disease without esophagitis; I10 Essential (primary) hypertension; E78.5 Hyperlipidemia, unspecified; Z79.899 Other long term (current) drug therapy; F17.210 Nicotine dependence, cigarettes, uncomplicated; Z79.84 Long term (current) use of oral hypoglycemic drugs
CPT/HCPCS: 71045; 80053; 80307; 80329; 81001; 82077; 82962; 84703; 85025; 87811; 93005; 96360; 99285; J7030; A4216; G0480

== ENCOUNTER 2022-11-28 22:24 | Emergency (ER) | payer MEDICARE, MEDICAID, SELFPAY ==
[2022-11-28 22:26] VITALS: BP 120/79; PULSE 98; RESP 19; TEMP 36.5; O2SAT 100; BMI 31.8
--- NOTE | 2022-11-28 22:49 | EDS_ITS ---
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 Narrative Narrative: 29-year-old female extensive past psychiatric history including panic attacks, PTSD, obsessive-compulsive disorder, and bipolar type I along with borderline personality disorder. Also has a history of substance abuse. Diabetes type 2. Patient states that her boyfriend got an argument tonight. He left. She could not find them. She said she became depressed. And took 60 muscle relaxants Zanaflex and some Neurontin placed. States this overdose occurred around 8 PM. It was in an attempt to hurt her self. She sent a friend a text on when it occurred and what she was doing. Police and paramedics were called. When the paramedics were bringing her and she tried to escape and had to restrain her. She has had prior similar episodes and prior psychiatric admission in the last several months. Prior similar symptoms: Yes Recent Illness/Hospitalization: Yes [facility] Medical History Abscess of breast Abscess of sternal region Alcohol abuse Anxiety and depression Asthma Bipolar 1 disorder Bipolar affective Cat bite Cat bite of right hand with infection Cat scratch Cat scratch of left hand with infection Cat scratch of right hand with infection Chronic back pain Drug abuse GERD (gastroesophageal reflux disease) Hidradenitis HTN (hypertension) Hyperlipidemia Morbid obesity Neuropathy Non-healing surgical wound Open wound of chest wall, complicated Open wound of left axillary region Osteoarthritis Osteoarthritis Skin graft failure Home Medications buspirone 10 mg tablet 20 mg PO TID ANXIETY 06/30/18 [History Last Taken 10/16/19] hydroxyzine pamoate 50 mg capsule 100 mg PO TID PRN PRN Anxiety 12/14/19 [History Last Taken Unknown] albuterol sulfate 2.5 mg/3 mL (0.083 %) solution for nebulization 2.5 mg (3 mL) inhalation Q2H PRN PRN SOB/Wheezing 12/15/19 [Rx Last Taken Unknown] aripiprazole 300 mg intramuscular suspension,extended release (Abilify Maintena) 662 mg IM QMONTH 10/22/20 [History Last Taken 10/04/22] clonidine HCl 0.1 mg tablet 0.1 mg PO QHS 10/22/20 [History Last Taken Unknown] melatonin 3 mg tablet 10 mg PO QHS PRN PRN Insomnia 10/22/20 [History Last Taken Unknown] mirtazapine 30 mg tablet (Remeron) 30 mg PO QHS 10/22/20 [History Last Taken Unknown] gabapentin 300 mg capsule 300 mg PO 4X/DAY 02/12/21 [History Last Taken Unknown] tizanidine 4 mg tablet 4 mg PO 4X/DAY 02/12/21 [History Last Taken Unknown] naproxen 500 mg tablet 500 mg PO BID PRN #20 tabs 05/12/21 [Rx Last Taken Unknown] atorvastatin 10 mg tablet 20 mg PO QHS #90 tabs 07/20/21 [Rx Last Taken Unknown] spironolactone 100 mg tablet 100 mg PO DAILY 07/29/21 [History Last Taken Unknown] pantoprazole 40 mg tablet,delayed release 40 mg PO DAILY 03/09/22 [History Last Taken Unknown] Trulicity 3 mg/0.5 mL subcutaneous pen injector (dulaglutide) 3 mg (0.5 mL) sorenson bcut QWEEK #6 mL 09/07/22 [Rx Last Taken Unknown] Allergy/AdvReac Type Severity Reaction Status Date / Time lamotrigine [From Lamictal] Allergy Mild Rash Verified 11/28/22 22:35 adhesive tape Allergy Rash Verified 11/28/22 22:35 Family History Grandmother Thyroid disorder Father Diabetes Heart disease Hypertension High cholesterol Mother Heart disease Hypertension High cholesterol Colon cancer Surgical History H/O neck surgery History of axillary surgery History of section History of tonsillectomy [place] teeth removed Social History household members: family and children number of children: 1 Smoking Status: Current every day smoker tobacco type: cigarettes second hand exposure: No alcohol intake: never substance use type: does not use and former substance user caffeine: Yes what type of physical activity do you participate in: none seatbelt use: always do you feel safe at home: Yes additional social history: single- disability ROS ROS ED ROS Narrative Denies recent illness. Review of Systems ROS Unobtainable: Denies due to encephalopathy Constitutional Constitutional ED: Denies chills or fever(s) Eyes Eyes: Denies blurry vision ENT ENT ED: Denies ear pain Cardiovascular Cardiovascular: Denies chest pain or palpitations Respiratory/Chest Respiratory/Chest: Denies cough or dyspnea Gastrointestinal Gastrointestinal: Denies abdominal pain Genitourinary Genitourinary ED: Denies dysuria or hematuria Musculoskeletal Musculoskeletal: Denies arthralgias Integumentary Denies abscess or Abrasions Neurologic Neurologic: Denies headache(s) Psychiatric Psychiatric: Reports depression, suicidal ideation and suicidal thoughts; Denies anxiety Endocrine Endocrinology: Denies polydipsia Hematologic/Lymphatic Hematologic/Lymphatic: Denies easy bleeding Allergic/Immunologic Allergic/Immunologic ED: Denies mouth swelling or tongue swelling EXAM Physical Exam Narrative Exam Narrative: 29-year-old female vital signs stable afebrile. Does not look septic or toxic. No acute distress. Pulse ox 9% on room air. She is awake alert oriented. Answering questions following commands. Currently she is cooperative. Forthcoming with information. No smell of alcohol or signs of toxidrome. H EENT exam unremarkable. Moist mucous members. No trauma. Neck nontender no trauma. Lungs clear to auscultation bilaterally. Heart regular rhythm rate about 95 no murmur. Chest wall nontender. Abdomen soft nontender. Moving all 4 extremities. Calves are nontender without edema or cords. There is no signs of trauma to her upper or lower extremities. No track burn[place]. No lacerations. Neurologically she is awake alert. Moving all 4 extremities. Speaking normally. Skin unremarkable. Back exam normal. Const Vital Signs: 11/28/22 22:26 Temperature 97.7 F L Temperature Source Temporal Pulse Rate 98 Respiratory Rate 19 H Blood Pressure 120/79 Blood Pressure Mean 92 Pulse Ox 100 Oxygen Delivery Method Room Air Positive well nourished, well developed and obese; Negative for cachectic, contractures or unkempt General Appearance ED: well developed and NAD; Negative for unkempt, cachectic, contractures or pallor Nutritional Appearance: obese; Negative for cachectic HEENT Reports moist mucous membranes normocephalic and atraumatic; Negative for trauma or tenderness Eyes PERRL and EOMs intact bilaterally General Eye ED: Negative for pale conjunctiva, scleral icterus or other Neck no lymphadenopathy, supple and no JVD General: Negative for tenderness Resp normal respiratory effort and clear to auscultation bilaterally Effort and Inspection: Negative for retractions Auscultation: Negative for rales, rhonchi or wheezes Cardio S1 normal heart sound, S2 normal heart sound and no murmurs Palpation: Negative for other Rate: regular rate Rhythm: regular rhythm GI non-tender, non-distended and no masses Inspection: Negative for abdominal distention Auscultation: normoactive bowel sounds Palpation: soft; Negative for tender or guarding Back/Spine no CVA tenderness General Back: Negative for CVA tenderness Cervical Spine: Negative for cervical spine tenderness Thoracic Spine / Upper Back: Negative for thoracic spinal tenderness Lumbar Spine / Lower Back: Negative for lumbar spinal tenderness Extremity normal to inspection General Extremety ED: Negative for edema or tenderness General Extremity: Negative for edema Neuro oriented x3 and CN's II-XII intact bilaterally Sensorium / Orientation: alert, oriented to person, oriented to place and oriented to time; Negative for orientation impaired, confused, lethargic or stuporous Motor Exam: strength 5/5 throughout Psych mental status grossly normal, thought process normal, cooperative, affect normal, speech normal, activity/motor behavior normal, denies hallucinations and denies homicidal ideation; Negative for denies suicidal ideation Psych Narrative: Suicidal. Appearance: grossly normal, appropriate and well kempt; Negative for unkempt, disheveled, bizarre or intubated Attitude: calm, engaged, No paranoid, No withdrawn, No bizarre, No uncooperative, No evasive, No guarded, No belligerent, No agitated, No aggressive and No hostile Activity / Motor Behavior: appropriate eye contact; Negative for psychomotor agitation, fidgetting, hyperactive, disorganized, restless or mannerisms Speech: normal speech, No incoherent, No excessive, No minimal, No slow, No rapid, No soft, No loud and No slurred Mood & Affect: depressed Thought Process: normal thought process, No confused, No confabulating, No flight of ideas and No illogical Thought Content: suicidality Attention / Concentration: attention grossly intact Memory / Cognition: memory grossly intact Insight: insight good Judgement: judgement good Skin General Skin Exam: Negative for jaundice or pallor Lesions: no lesions Rashes: no rashes Trauma: Negative for abrasion Wounds: Negative for amputation MDM MDM MDM Narrative Medical decision making narrative: 37-year-old female extensive psychiatric history. Get an argument with her significant other tonight. They broke up in the left. She look for including finding became depressed and an intentional overdose on Zanaflex and Neurontin. Clinically stable. She will go through an ED mental health evaluation with the appropriate labs. Crisis evaluation and I suspect that she will definitely need placed. Eventually she will be turned over to the overnight physician. Lab Data Attestation: I reviewed the patient's lab results. Lab results narrative: CBC showed a white count of 14.9. H&H of 13.3 and 39. Platelets 295. Electrolytes unremarkable gap is 6 normal BUN and creatinine glucose 180. Tox screen, alcohol level and Tylenol level are pending. Patient is resting comfortably doing well at 12 PM. She will be turned over the overnight physician I suspect crisis will make her a psychiatric admission and will have to work to find a admitting facility. Labs: Laboratory Results - last 24 hr 11/28/22 11/28/22 23:35 23:55 WBC 14.9 H RBC 4.04 L Hgb 13.3 Hct 39.0 MCV 96.5 MCH 32.9 H MCHC 34.1 RDW Std Deviation 46.1 H RDW Coeff of Radha 13.0 Plt Count 295 MPV 9.3 Immature Gran % (Auto) 0.300 Neut % (Auto) 52.4 Lymph % (Auto) 38.8 [place] % (Auto) 6.0 Eos % (Auto) 1.8 Baso % (Auto) 0.7 Absolute Neuts (auto) 7.8 H Absolute Lymphs (auto) 5.79 H Nucleated RBC % 0 Sodium 138 Potassium 4.0 Chloride 107 Carbon Dioxide 25.0 Anion Gap 6 BUN 10 Creatinine 0.77 Estim Creat Clear Calc 85.54 Est GFR (MDRD) Af Amer 107 Est GFR (MDRD) Non-Af 89 BUN/Creatinine Ratio 12.9 Glucose 180 H Calcium 8.9 Discharge Plan Triage Chief Complaint: Overdose ED Provider: Nikhil Del Rio Dx/Rx/DC Orders Clinical Impression: Depression, OD (overdose of drug), Depression with suicidal ideation, History of bipolar disorder, History of posttraumatic stress disorder (PTSD), History of drug overdose Prescriptions: No Action melatonin 3 mg tablet 10 mg PO QHS PRN PRN (Reason: Insomnia) Abilify Maintena 300 mg suspension,extended rel recon 662 mg IM QMONTH mirtazapine [Remeron] 30 mg tablet 30 mg PO QHS clonidine HCl 0.1 mg tablet 0.1 mg PO QHS spironolactone 100 mg tablet 100 mg PO DAILY pantoprazole 40 mg tablet,delayed release (DR/EC) 40 mg PO DAILY Trulicity 3 mg/0.5 mL pen injector 3 mg subcut QWEEK Qty: 6 2RF buspirone 10 MG tablet 20 mg PO TID hydroxyzine pamoate 50 MG capsule 100 mg PO TID PRN PRN (Reason: Anxiety) albuterol sulfate 2.5 MG/3 ML solution for nebulization 2.5 mg INHALATION Q2H PRN PRN (Reason: SOB/Wheezing) 0RF tizanidine 4 MG tablet 4 mg PO 4X/DAY gabapentin 300 MG capsule 300 mg PO 4X/DAY naproxen 500 mg tablet 500 mg PO BID PRN Qty: 20 0RF atorvastatin 10 mg tablet 20 mg PO QHS Qty: 90 1RF Primary Care Provider: Aj Staley Referrals: Aj Staley MD [Primary Care Provider] - Disposition Disposition: Psychiatric Hospital or Unit
[2022-11-29] VITALS (11 sets, daily range): BP systolic 91–104; BP diastolic 56–82; PULSE 66–111; RESP 11–23; O2SAT 95–100
[2022-11-29 00:10] LABS: Anion Gap 6 (5-15); BUN 10 mg/dL (7-18); BUN/Creat Ratio 12.9 RATIO (10-20); Calcium,Total 8.9 mg/dL (8.5-10.1); Chloride 107 mmol/L (98-107); Creatinine, Serum 0.77 mg/dL (0.55-1.02); EST Glomerular Filtration Rate 89 mL/min (>60); Est Glom Filt Rate - Afr Amer 107 mL/min (>60); Estimated Creatinine Clearance 85.54 ml/min; Glucose 180 mg/dL (74-106); Sodium Level 138 mmol/L (136-145)
[2022-11-29 00:12] LABS: Absolute Lymphocyte Count 5.79 X10^3/uL (0.83-4.51); Absolute Neutrophil Count 7.8 X10^3/uL (2.0-7.7); Basophil% 0.7 % (0-1); Differential Indicated SCAN CRITERIA MET; Eosinophil# 0.27 X10^3/uL; Eosinophils% 1.8 % (0-5); Hemoglobin 13.3 g/dL (12.0-15.0); Lymphocyte # 5.79 X10^3/ul (0.83-4.51); Lymphocyte % 38.8 % (19-41); Mean Corp Hgb Conc 34.1 g/dL (32-36); Mean Corpuscular Hgb 32.9 pg (27.0-32.0); Mean Corpuscular Volume 96.5 fL (81-99); Mean Platelet Vol. 9.3 fl (6.2-12.0); NRBC Flagged by Analyzer 0 % (0-5); Neutrophil # 7.81 X10^3/uL (2.7-7.7); Neutrophil % 52.4 % (47-70); POSITIVE DIFFERENTIAL YES; Platelet Count 295 K/mm3 (150-450); RBC Distribution Width SD 46.1 fl (35.1-43.9); Red Blood Count 4.04 M/mm3 (4.2-5.4); White Blood Count 14.9 K/mm3 (4.4-11.0)
[2022-11-29 00:38] LABS: Differential Comment SCANNED
[2022-11-29 00:39] LABS: Internal QC Validated? YES +Cl - CLEAR BKGD; Pregnancy, Serum, hCG Quali. NEGATIVE Negative
[2022-11-29 00:40] LABS: Alcohol, Blood (Medical)-Serum < 3.0 mg/dL
[2022-11-29 00:42] LABS: Acetaminophen (Tylenol) Level < 2.0 ug/mL (10.0-30.0)
[2022-11-29 01:34] LABS: Amphetamine Urine VISTA POSITIVE (<1000 ng/mL); Barbiturate Urine VISTA NEGATIVE (< 200 ng/mL); Benzodiazepine Urine VISTA NEGATIVE (< 200 ng/mL); Cocaine Urine VISTA NEGATIVE (< 300 ng/mL); Ecstacy Urine VISTA POSITIVE (< 500 ng/mL); Methadone Urine VISTA NEGATIVE (< 300 ng/mL); PCP Urine VISTA NEGATIVE (< 25 ng/mL); THC Urine VISTA POSITIVE (< 50 ng/mL); Vista UDS pH Range 5
--- NOTE | 2022-11-29 02:44 | EKG12_ITS ---
[place] Reason : [facility] [place] Pressure : / mmHG Vent. Rate : 087 BPM Atrial Rate : 087 BPM P-R Int : 150 ms QRS Dur : 074 ms QT Int : 364 ms P-R-T Axes : 055 099 063 degrees QTc Int : 438 ms Normal sinus rhythm Rightward axis Borderline ECG Confirmed by JOSE DANIEL MARTE, JAZZY ([id number]), videotape editor GAYE BONE ([id number]) on 11/29/2022 1:37:56 PM Referred By: Confirmed By:JAZZY SKY MD
--- NOTE | 2022-11-29 04:30 | NURSING ---
AMADO REDMOND CALLED AND STATED THAT THE PATIENT WILL PLACED ON THEIR WAIT LIST.
--- NOTE | 2022-11-29 08:18 | ED.RN ---
WAITLIST FOR [facility] RED[facility], ALSO REFERRED TO GENERATIONS
--- NOTE | 2022-11-29 12:26 | CM.ED ---
Addendum entered by Yasmeen De La Rosa 11/29/22 12:52: CJ met with RN and was informed transportation ETA was approximately 2hrs. SW met with patient and introduced herself and role as [facility] Stock Handler Floorperson. SW informed patient of acceptance to [facility] with transportation ETA of 2 hrs. Patient was receptive towards information and voiced no other needs at this time. SW remains available if needs arise. KARLOS Carrasco Original Note: CJ Note SW contacted by Tracy with [facility] and was informed patient was accepted to [facility], accepting information given to ED staff by Tracy. assistant corporate secretary to set up transportation. Plan: Inpatient psych at [facility] KARLOS Carrasco
--- NOTE | 2022-11-29 12:32 | ED.RN ---
PATIENT ACCEPTED TO [facility], ACCEPTING DOCTOR IS DR MICHEL, ACCEPTED TO THE [address], ETA FOR PHYSICIANS TO [facility] IS [id number]
--- NOTE | 2022-11-29 14:29 | ED.RN ---
$80 worth of zaman in [employer] per Ortiz. Along with credit cards given to patient.
--- NOTE | 2022-11-29 15:29 | ED.RN ---
TWO BAGS GIVEN TO TRANSPORTING [facility] WITH PATIENTS BELONGINGS. ATTEMPT TO CALL REPORT BUT PHONE HAD KEPT RINGING. I WAS THEN TRANSFERRED TO [employer]TRATION [employer]ANT MECHANIC AND LEFT A MESSAGE TO CALL BACK FOR PATIENT REPORT.
== END 2022-11-29 15:38 ==
PROVIDERS: Emergency Provider Emergency Medicine; PCP Family Medicine; Visit Provider Emergency Medicine
DX: T48.1X2A Poisoning by skeletal muscle relaxants [neuromuscular blocking agents], intentional self-harm, initial encounter (principal); T42.6X2A Poisoning by other antiepileptic and sedative-hypnotic drugs, intentional self-harm, initial encounter; F31.9 Bipolar disorder, unspecified; F60.3 Borderline personality disorder; E11.40 Type 2 diabetes mellitus with diabetic neuropathy, unspecified; F43.10 Post-traumatic stress disorder, unspecified; I10 Essential (primary) hypertension; E78.5 Hyperlipidemia, unspecified; F17.210 Nicotine dependence, cigarettes, uncomplicated; Z79.899 Other long term (current) drug therapy
CPT/HCPCS: 80048; 80307; 80329; 82077; 84703; 85025; 87811; 93005; 99285; G0480

== ENCOUNTER 2023-02-15 13:24 | Emergency (ER) | payer MEDICARE, MEDICAID, SELFPAY ==
[2023-02-15] VITALS (11 sets, daily range): BP systolic 101–111; BP diastolic 58–78; PULSE 68–111; RESP 16–24; TEMP 36.2; O2SAT 96–100; BMI 32.6
--- NOTE | 2023-02-15 13:28 | ED.RN ---
PLACED IN WAITING ROOM WITH SECURITY SITTER DUE TO ACUITY OF PATIENT IN ED AND NO BEDS AVAILABLE AT TIME
--- NOTE | 2023-02-15 13:58 | EKG12_ITS ---
Test Reason : MEDICAL CLEARANCE Blood Pressure : / mmHG Vent. Rate : 092 BPM Atrial Rate : 092 BPM P-R Int : 144 ms QRS Dur : 072 ms QT Int : 372 ms P-R-T Axes : 069 097 056 degrees QTc Int : 460 ms Normal sinus rhythm Rightward axis Borderline ECG Confirmed by CARROLL MARTE, IRVIN ([id number]), editor dictionary JULIET RIVERA ([id number]) on 02/21/2023 6:57:14 AM Referred By: Confirmed By:RC HODGES MD
--- NOTE | 2023-02-15 14:14 | EX.ED.VIS.PS ---
HPI HPI - Psych History of Present Illness Chief Complaint: Suicidal Narrative Narrative: 37-year-old female presents with suicidal ideation. She is feeling helpless and hopeless. She states she is tired of feeling lonely and does not want to live anymore. Additionally, she misses her daughter. She was brought in by police. Although she had a appointment with the counseling center at 2 PM today, she states I did make it. Instead, she was brought in for psychiatric evaluation. At times she is uncooperative with examination, not wanting to answer questions, even her name. She does not want to talk about what may have triggered her increased suicidal ideation. She will answer with I do not know and is mildly evasive when asked if she tried to hurt herself. She presents with bandages on her left wrist. PFSH ON LICENSE OF [facility] Medical History Abscess of breast Abscess of sternal region Alcohol abuse Anxiety and depression Asthma Bipolar 1 disorder Bipolar affective Cat bite Cat bite of right hand with infection Cat scratch Cat scratch of left hand with infection Cat scratch of right hand with infection Chronic back pain Drug abuse GERD (gastroesophageal reflux disease) Hidradenitis HTN (hypertension) Hyperlipidemia Morbid obesity Neuropathy Non-healing surgical wound Open wound of chest wall, complicated Open wound of left axillary region Osteoarthritis Osteoarthritis Skin graft failure Home Medications buspirone 10 mg tablet 20 mg PO TID ANXIETY 06/30/18 [History Last Taken 10/16/19] hydroxyzine pamoate 50 mg capsule 100 mg PO TID PRN PRN Anxiety 12/14/19 [History Last Taken Unknown] albuterol sulfate 2.5 mg/3 mL (0.083 %) solution for nebulization 2.5 mg (3 mL) inhalation Q2H PRN PRN SOB/Wheezing 12/15/19 [Rx Last Taken Unknown] clonidine HCl 0.1 mg tablet 0.1 mg PO QHS 10/22/20 [History Last Taken Unknown] melatonin 3 mg tablet 10 mg PO QHS PRN PRN Insomnia 10/22/20 [History Last Taken Unknown] gabapentin 300 mg capsule 300 mg PO 4X/DAY 02/12/21 [History Last Taken Unknown] tizanidine 4 mg tablet 4 mg PO 4X/DAY 02/12/21 [History Last Taken Unknown] naproxen 500 mg tablet 500 mg PO BID PRN #20 tabs 06/22/21 [Rx Last Taken Unknown] spironolactone 100 mg tablet 100 mg PO DAILY 07/29/21 [History Last Taken Unknown] pantoprazole 40 mg tablet,delayed release 40 mg PO DAILY 03/09/22 [History Last Taken Unknown] doxepin 25 mg capsule 25 mg PO QHS 11/29/22 [History Last Taken Unknown] Trulicity 3 mg/0.5 mL subcutaneous pen injector (dulaglutide) 3 mg (0.5 mL) subcut QWEEK #6 mL 01/10/23 [Rx Last Taken Unknown] Allergy/AdvReac Type Severity Reaction Status Date / Time lamotrigine [From Lamictal] Allergy Mild Rash Verified 02/15/23 13:52 adhesive tape Allergy Rash Verified 02/15/23 13:52 Family History Grandmother Thyroid disorder Father Diabetes Heart disease Hypertension High cholesterol Mother Heart disease Hypertension High cholesterol Colon cancer Surgical History H/O neck surgery History of axillary surgery History of section History of tonsillectomy [place] teeth removed Social History household members: family and children number of children: 1 Smoking Status: Current every day smoker tobacco type: cigarettes second hand exposure: No alcohol intake: never substance use type: does not use and former substance user caffeine: Yes what type of physical activity do you participate in: none seatbelt use: always do you feel safe at home: Yes additional social history: single- disability ROS ROS ED ROS Narrative Constitutional: No fever, no chills. HEENT: No sore throat. No neck pain. No loss of vision. No rhinorrhea. Cardiovascular: No chest pain. No palpitations. No pedal edema. Respiratory: No cough, no shortness of breath. Abdominal: No abdominal pain. No nausea. No vomiting. Genitourinary: No dysuria. No hematuria. Musculoskeletal: No myalgias. No arthralgias. Neurologic: No headaches. No dizziness. No lightheadedness. Skin: No rash. No change in color. Psychiatric: Positive depression, positive suicidal ideation. EXAM Physical Exam Narrative Exam Narrative: Afebrile. Vital signs noted. Curled up in position on bed. HEENT: Normocephalic. Atraumatic. PERRL, EOMI. Neck soft and supple. No point tenderness or step off. Cardiovascular: Regular rate and rhythm. No murmurs, rubs, or gallops appreciated. Respiratory: No tachypnea. Lungs clear to auscultation bilaterally. Gastrointestinal: Abdomen soft, nontender, with normoactive bowel sounds. No rebound or guarding. Neurological: Awake. Alert. Nonfocal, nonlateralizing. Skin: No rash. Normal color. No pallor. Multiple superficial lacerations to left wrist, no active bleeding. No gaping of skin that would require suturing. Musculoskeletal: No pedal edema. Full range of motion extremities. Psychiatric: Tearful on examination. Feeling helpless, and hopeless. Positive suicidal ideation. Evasive with answering questions. Const Vital Signs: 02/15/23 13:25 02/15/23 14:53 02/15/23 15:38 Temperature 97.2 F L Temperature Source Temporal Pulse Rate 111 H 68 94 Respiratory Rate 24 H 18 18 Blood Pressure 110/71 111/58 L 111/78 Blood Pressure Mean 84 75 89 Pulse Ox 100 98 98 Oxygen Delivery Method Room Air Room Air Room Air MDM MDM MDM Narrative Medical decision making narrative: I reviewed the application for emergency admission filled out by the police. Patient reportedly locked herself in her apartment, reportedly saying kill me or I am going to kill myself. Additionally, she had stated that she had taken a handful of pills, but states she could not remember what they were, and was evasive with the time that she had taken them. She held a knife to her neck and to her wrist on the left-hand side. There were superficial cuts that were bandaged. She repeatedly told police that she wanted to , asking them to kill her or that she would kill herself. Medical clearance labs were obtained per protocol. At this point in time, she will be medically cleared for evaluation. I added a acetaminophen and salicylate level. I do feel that she will require admission for her continued suicidal ideation. Patient will be signed out to the oncoming physician, Dr. Rich Linn, to complete medical clearance and make final disposition on this patient. History & Record Review Discussion w/independent historian: Unable to obtain Additional record(s) reviewed:: Prior outpatient record and Prior ED visit Lab Data Attestation: I reviewed the patient's lab results. Labs: Laboratory Results - last 24 hr 02/15/23 02/15/23 02/15/23 15:11 15:11 15:11 WBC Cancelled Corrected WBC Cancelled RBC Cancelled Hgb Cancelled Hct Cancelled MCV Cancelled MCH Cancelled MCHC Cancelled RDW Std Deviation Cancelled RDW Coeff of Radha Cancelled Plt Count Cancelled MPV Cancelled Immature Gran % (Auto) Cancelled Neut % (Auto) Cancelled Lymph % (Auto) Cancelled Payne % (Auto) Cancelled Eos % (Auto) Cancelled Baso % (Auto) Cancelled Absolute Neuts (auto) Cancelled Absolute Lymphs (auto) Cancelled Total Counted Cancelled Neutrophils % (Manual) Cancelled Band Neutrophils % Cancelled Lymphocytes % (Manual) Cancelled Monocytes % (Manual) Cancelled Eosinophils % (Manual) Cancelled Basophils % (Manual) Cancelled Metamyelocytes % Cancelled Myelocytes % Cancelled Promyelocytes % Cancelled Blast Cells % Cancelled Plasma Cell % (Manual) Cancelled Other Cells % Cancelled Nucleated RBC % Cancelled Nucleated RBCs/100 WBC Cancelled Differential Comment Cancelled Diff Path Review Cancelled Hypersegmented Neuts Cancelled Atypical Lymphocytes Cancelled Reactive Lymphocytes Cancelled Smudge Cells Cancelled Toxic Granulation Cancelled Toxic Vacuolation Cancelled Dohle Bodies Cancelled Sherry Rods Cancelled Platelet Estimate Cancelled Plt Morphology Comment Cancelled RBC Morphology Cancelled Polychromasia Cancelled Hypochromasia Cancelled Poikilocytosis Cancelled Basophilic Stippling Cancelled Anisocytosis Cancelled Microcytosis Cancelled Macrocytosis Cancelled Spherocytes Cancelled Sickle Cells Cancelled Target Cells Cancelled Tear Drop Cells Cancelled Ovalocytes Cancelled Stomatocytes Cancelled [place] Bodies Cancelled [place] Cells Cancelled Bite Cells Cancelled Crenated Cell Cancelled Acanthocytes (Spur) Cancelled Rouleaux Cancelled Schistocytes Cancelled Serum , Qual NEGATIVE Ur Drug Screen Comment Ethyl Alcohol Cancelled POC Glucose 02/15/23 02/15/23 02/15/23 15:36 15:50 15:50 WBC 11.9 H Corrected WBC RBC 4.40 Hgb 14.2 Hct 43.5 MCV 98.9 MCH 32.3 H MCHC 32.6 RDW Std Deviation 47.1 H RDW Coeff of Radha 12.9 Plt Count 392 MPV 8.8 Immature Gran % (Auto) 0.500 Neut % (Auto) 64.8 Lymph % (Auto) 25.7 Payne % (Auto) 6.8 Eos % (Auto) 1.3 Baso % (Auto) 0.9 Absolute Neuts (auto) 7.7 Absolute Lymphs (auto) 3.06 Total Counted Neutrophils % (Manual) Band Neutrophils % Lymphocytes % (Manual) Monocytes % (Manual) Eosinophils % (Manual) Basophils % (Manual) Metamyelocytes % Myelocytes % Promyelocytes % Blast Cells % Plasma Cell % (Manual) Other Cells % Nucleated RBC % 0 Nucleated RBCs/100 WBC Differential Comment Diff Path Review Hypersegmented Neuts Atypical Lymphocytes Reactive Lymphocytes Smudge Cells Toxic Granulation Toxic Vacuolation Dohle Bodies Sherry Rods Platelet Estimate Plt Morphology Comment RBC Morphology Polychromasia Hypochromasia Poikilocytosis Basophilic Stippling Anisocytosis Microcytosis Macrocytosis Spherocytes Sickle Cells Target Cells Tear Drop Cells Ovalocytes Stomatocytes [place] Bodies [place] Cells Bite Cells Crenated Cell Acanthocytes (Spur) Rouleaux Schistocytes Serum , Qual Ur Drug Screen Comment Ethyl Alcohol < 3.0 POC Glucose 67 L 02/15/23 16:05 WBC Corrected WBC RBC Hgb Hct MCV MCH MCHC RDW Std Deviation RDW Coeff of Radha Plt Count MPV Immature Gran % (Auto) Neut % (Auto) Lymph % (Auto) Payne % (Auto) Eos % (Auto) Baso % (Auto) Absolute Neuts (auto) Absolute Lymphs (auto) Total Counted Neutrophils % (Manual) Band Neutrophils % Lymphocytes % (Manual) Monocytes % (Manual) Eosinophils % (Manual) Basophils % (Manual) Metamyelocytes % Myelocytes % Promyelocytes % Blast Cells % Plasma Cell % (Manual) Other Cells % Nucleated RBC % Nucleated RBCs/100 WBC Differential Comment Diff Path Review Hypersegmented Neuts Atypical Lymphocytes Reactive Lymphocytes Smudge Cells Toxic Granulation Toxic Vacuolation Dohle Bodies Sherry Rods Platelet Estimate Plt Morphology Comment RBC Morphology Polychromasia Hypochromasia Poikilocytosis Basophilic Stippling Anisocytosis Microcytosis Macrocytosis Spherocytes Sickle Cells Target Cells Tear Drop Cells Ovalocytes Stomatocytes [place] Bodies Chris Cells Bite Cells Crenated Cell Acanthocytes (Spur) Rouleaux Schistocytes Serum , Qual Ur Drug Screen Comment Ethyl Alcohol POC Glucose Discharge Plan Triage Chief Complaint: Suicidal ED Provider: Santiago Ng Dx/Rx/DC Orders Clinical Impression: Bipolar affective, JOAN (generalized anxiety disorder), Depression, Drug overdose, intentional, Suicide attempt, Self-cutting of wrist Prescriptions: No Action melatonin 3 mg tablet 10 mg PO QHS PRN PRN (Reason: Insomnia) clonidine HCl 0.1 mg tablet 0.1 mg PO QHS spironolactone 100 mg tablet 100 mg PO DAILY pantoprazole 40 mg tablet,delayed release (DR/EC) 40 mg PO DAILY buspirone 10 MG tablet 20 mg PO TID hydroxyzine pamoate 50 MG capsule 100 mg PO TID PRN PRN (Reason: Anxiety) albuterol sulfate 2.5 MG/3 ML solution for nebulization 2.5 mg INHALATION Q2H PRN PRN (Reason: SOB/Wheezing) 0RF tizanidine 4 MG tablet 4 mg PO 4X/DAY gabapentin 300 MG capsule 300 mg PO 4X/DAY naproxen 500 mg tablet 500 mg PO BID PRN Qty: 20 0RF doxepin 25 mg Capsule 25 mg PO QHS Trulicity 3 mg/0.5 mL pen injector 3 mg subcut QWEEK Qty: 6 0RF Primary Care Provider: Aj Staley Referrals: Aj Staley MD [Primary Care Provider] - Disposition Disposition: Psychiatric Hospital or Unit
[2023-02-15 15:55] LABS: Bedside Glucose 67 mg/dL (74-106)
[2023-02-15 16:03] LABS: Pregnancy, Serum, hCG Quali. NEGATIVE Negative (0-9 Nonpreg)
[2023-02-15 16:12] LABS: Absolute Lymphocyte Count 3.06 X10^3/uL (0.83-4.51); Absolute Neutrophil Count 7.7 X10^3/uL (2.0-7.7); Basophil# 0.11 X10^3/uL; Basophil% 0.9 % (0-1); Eosinophil# 0.16 X10^3/uL; Eosinophils% 1.3 % (0-5); Hematocrit 43.5 % (37-47); Hemoglobin 14.2 g/dL (12.0-15.0); Lymphocyte # 3.06 X10^3/ul (0.83-4.51); Lymphocyte % 25.7 % (19-41); Mean Corp Hgb Conc 32.6 g/dL (32-36); Mean Corpuscular Hgb 32.3 pg (27.0-32.0); Mean Corpuscular Volume 98.9 fL (81-99); Mean Platelet Vol. 8.8 fl (6.2-12.0); Monocyte# 0.81 X10^3/uL; Monocyte% 6.8 % (0-10); NRBC Flagged by Analyzer 0 % (0-5); Neutrophil # 7.69 X10^3/uL (2.7-7.7); Neutrophil % 64.8 % (47-70); Platelet Count 392 K/mm3 (150-450); RBC Distribution Width CV 12.9 % (11.6-14.6); RBC Distribution Width SD 47.1 fl (35.1-43.9); White Blood Count 11.9 K/mm3 (4.4-11.0)
[2023-02-15 16:19] LABS: Alcohol, Blood (Medical)-Serum < 3.0 mg/dL
[2023-02-15 16:26] LABS: Internal QC Validated? YES +Cl - CLEAR BKGD
[2023-02-15 16:38] LABS: Amphetamine Urine VISTA POSITIVE (<1000 ng/mL); Barbiturate Urine VISTA NEGATIVE (< 200 ng/mL); Benzodiazepine Urine VISTA NEGATIVE (< 200 ng/mL); Cocaine Urine VISTA NEGATIVE (< 300 ng/mL); Ecstacy Urine VISTA POSITIVE (< 500 ng/mL); Methadone Urine VISTA NEGATIVE (< 300 ng/mL); PCP Urine VISTA NEGATIVE (< 25 ng/mL); THC Urine VISTA POSITIVE (< 50 ng/mL); Vista UDS pH Range 6
[2023-02-15] MEDS: Diphth,Pertuss(Acell),Tet Vac 0.5 ML Vial IM (16:51)
[2023-02-15 17:07] LABS: Acetaminophen (Tylenol) Level < 2.0 ug/mL (10.0-30.0); Salicylate < 1.7 mg/dL (2.8-20.0)
[2023-02-15 17:31] LABS: Anion Gap 7 (5-15); BUN 11 mg/dL (7-18); BUN/Creat Ratio 10.8 RATIO (10-20); Calcium,Total 9.1 mg/dL (8.5-10.1); Chloride 108 mmol/L (98-107); Creatinine, Serum 1.02 mg/dL (0.55-1.02); EST Glomerular Filtration Rate 64 mL/min (>60); Est Glom Filt Rate - Afr Amer 78 mL/min (>60); Estimated Creatinine Clearance 64.58 ml/min; Glucose 70 mg/dL (74-106); Potassium 4.4 mmol/L (3.5-5.1); Sodium Level 140 mmol/L (136-145)
--- NOTE | 2023-02-15 17:53 | ED.RN ---
Pt friend Ortiz called to speak with pt. pt sleeping. ortiz phone number [phone]
[2023-02-15 19:35] LABS: Bedside Glucose 110 mg/dL (74-106)
[2023-02-15 19:44] LABS: Mucous, Urine 0 SEEN /hpf (<or=2+); Red Blood Cells-Urine 0 SEEN /hpf (0-5); Squamous Epithelial Cells - UA 0 SEEN /hpf (5-10)
[2023-02-15 19:45] LABS: Color, Urine Yellow (Yellow); Glucose, Dipstick Normal (Normal); Ketone-Dipstick 5 mg/dl (Negative); Leukocyte Esterase-Dipstick 100 /ul (Negative); Nitrite-Dipstick Negative (Negative); Occult Blood-Urine 10 /ul (Negative); Protein-Dipstick 30 mg/dl (Negative); Specific Gravity, Urine 1.015 (1.002-1.030); Urine Clarity Cloudy (Clear); Urine Urobilinogen 8 mg/dl (Normal)
[2023-02-15 19:52] LABS: Urine Bilirubin Dipstick 1 mg/dL (Negative)
[2023-02-15 20:13] LABS: Bacteria 4+ /hpf (None Seen); White Blood Cells 0-5 SEEN /hpf (0-5)
--- NOTE | 2023-02-15 20:35 | ED.RN ---
PT ASKED THIS RN TO CALL PT MOTHER TO FOUNDRY METALLURGIST PT CAT. THIS RN CALLED CHAI (PT MOTHER) AT [phone]. PT MOTHER REQUESTS THAT PT CALL HER WHEN DONE WITH CRISIS DUE TO THIS RN NOT KNOWING PTS NEW ADDRESS. THIS RN WILL LET THE PT KNOW WHEN CRISIS IS FINISHED WITH THEIR ASSESSMENT. CHAI (PT MOTHER) PHONE NUMBER [phone].
--- NOTE | 2023-02-15 21:23 | ED.RN ---
PER DR. DOBBINS VERBAL ORDER, PT DOES NOT NEED BLOOD CULTURES PRIOR TO IV ANTIBIOTICS.
--- NOTE | 2023-02-15 21:29 | ED.RN ---
PT CALLED MOTHER USING HOSPITAL PHONE TO TALK ABOUT CAT. PER PT, MAINTENANCE TO HELP TAKE CARE OF CAT FOR THE NEXT FEW DAYS. PT TO UPDATE PARENTS OF PLAN USING HOSPITAL PHONE.
--- NOTE | 2023-02-15 21:30 | RAD_ITS ---
INDICATION: Pain swelling little toe EXAMINATION/TECHNIQUE: X-RAY - RIGHT FOOT XR Toes Min 2 Views 3 VIEWS COMPARISON: None. FINDINGS: SOFT TISSUES: Swelling fifth toe. No radiopaque foreign body. BONES/JOINTS: Transverse fracture through the distal phalanx fifth toe. No joint formation between the middle and distal phalanges fifth toe fracture at the expected location. Questionable chip fracture involving the dorsal base of the middle phalanx suggested on the lateral view. Preservation of the joint space and no degenerative bony proliferative changes. No sclerotic or destructive changes observed. RAD/Toe(s) Min 2 Views IMPRESSION: Transverse fracture distal phalanx fifth toe. Questionable chip fracture dorsal base of the middle phalanx fifth toe. Electronically Signed: Dusty Smith DO at 22:53 EDT ,
--- NOTE | 2023-02-15 21:52 | ED.RN ---
Addendum entered by Adrinane Taylor 02/15/23 22:10: MEDICATIONS NOT SENT TO PHARMACY MEDICATIONS WITH PT BELONGINGS/ NURSES STATION. Original Note: PT UNSURE OF WHAT MEDICATIONS SHE TAKES AT HOME. PT CAME TO ER WITH A BAG OF MEDICATIONS. Ana María RILEY RN SENT MEDICATIONS TO PHARMACY EARLIER TODAY.
--- NOTE | 2023-02-15 23:19 | ED.RN ---
pharmacy called for med
[2023-02-15] MEDS: Ceftriaxone 1 GM/50 ML BAG IV (23:25)
--- NOTE | 2023-02-16 00:34 | ED.RN ---
Crisis calls with acceptance from [facility]. Accepted by Dr Reeves. nurse to nurse [phone].
[2023-02-16 01:22] VITALS: RESP 17; O2SAT 99
[2023-02-16 04:02] VITALS: O2SAT 98
[2023-02-16 04:53] VITALS: BP 124/78; PULSE 74; RESP 14; O2SAT 99
[2023-02-16 05:54] VITALS: BP 130/88; PULSE 80; RESP 15; O2SAT 99
== END 2023-02-16 06:46 ==
PROVIDERS: Emergency Medicine; Emergency Provider Emergency Medicine; PCP Family Medicine; Visit Provider Emergency Medicine
DX: T50.902A Poisoning by unspecified drugs, medicaments and biological substances, intentional self-harm, initial encounter (principal); F31.9 Bipolar disorder, unspecified; F41.1 Generalized anxiety disorder; I10 Essential (primary) hypertension; J45.909 Unspecified asthma, uncomplicated; E78.5 Hyperlipidemia, unspecified
CPT/HCPCS: 36415; 73660; 80048; 80307; 80329; 81001; 82077; 82962; 84703; 85025; 87077; 87086; 87088; 87186; 87811; 90715; 93005; 96365; 96366; 99285; G0480

== ENCOUNTER → 2023-03-08 | Outpatient (CLI) | payer MEDICARE, MEDICAID, SELFPAY | END | disposition home or self-care (01) | LOC: LABSPEC 17:03 | PROVIDERS: PCP Family Medicine; Referring Provider Nurse Practitioner Women's Health; Visit Provider Nurse Practitioner Women's Health | DX: N89.8 Other specified noninflammatory disorders of vagina (principal) | CPT/HCPCS: 87070; 87186; 87205 ==

== ENCOUNTER → 2024-05-03 | Day surgery (SDC) | payer MEDICARE, MEDICAID, SELFPAY ==
[2023-12-27 13:04] LABS: Internal QC Validated? YES +Cl - CLEAR BKGD; Pregnancy, Urine Negative Negative
[2023-12-27 13:17] VITALS: BP 119/76; PULSE 104; RESP 16; TEMP 36.6; O2SAT 99; BMI 34.2
--- NOTE | 2023-12-27 14:00 | NURSING ---
pt had multiple iv attempts but were unsuccessful. anesthesia made aware.
[2023-12-27 14:18] LABS: Bedside Glucose 94 mg/dL (74-106)
--- NOTE | 2023-12-27 14:28 | HP.PCM_ITS ---
History and Physical Date of Admission: 12/27/23 Intake Vital Signs 07/21/2311:20 12/23/2410:23 Height 5 ft 4 in 5 ft 4 in Weight: 200 lb 6 oz 206 lb 2 oz BMI 34.4 35.4 BP 128/78 H 111/72 Blood Pressure Location Lt brachial Position Sitting Respiration 18 Pulse 88 Pulse Source Monitor Temp 98.0 F Pulse Oximetry (%) 98 Oxygen Delivery Method room air Intake Visit Reasons: Bartholin gland cyst Regenerator Operator Required: No Is patient in pain?: No Allergies lamotrigine [From Lamictal] Allergy (Mild, Verified 12/23/23 11:25) Rashadhesive tape Allergy (Verified 12/23/23 11:25) Rash Medications buspirone 10 mg tablet 20 mg PO TID ANXIETY 06/30/18 [History Confirmed 12/23/23] albuterol sulfate 2.5 mg/3 mL (0.083 %) solution for nebulization 2.5 mg (3 mL) inhalation Q2H PRN PRN SOB/Wheezing 12/15/19 [Rx Confirmed 12/23/23] clonidine HCl 0.1 mg tablet 0.1 mg PO QHS 10/22/20 [History Confirmed 12/23/23] melatonin 3 mg tablet 10 mg PO QHS PRN PRN Insomnia 10/22/20 [History Confirmed 12/23/23] gabapentin 300 mg capsule 300 mg PO 4X/DAY 02/12/21 [History Confirmed 12/23/23] tizanidine 4 mg tablet 4 mg PO 4X/DAY 02/12/21 [History Confirmed 12/23/23] naproxen 500 mg tablet 500 mg PO BID PRN #20 tabs 05/12/21 [Rx Confirmed 12/23/23] spironolactone 100 mg tablet 100 mg PO DAILY 07/29/21 [History Confirmed 12/23/23] pantoprazole 40 mg tablet,delayed release 40 mg PO DAILY 03/09/22 [History Confirmed 12/23/23] aripiprazole lauroxil 882 mg/3.2 mL suspension, ext.rel. IM syringe (Aristada) 882 mg IM QMONTH 03/08/23 [History Confirmed 12/23/23] dulaglutide 4.5 mg/0.5 mL subcutaneous pen injector (Trulicity) 4.5 mg (0.5 mL) subcut QWEEK #2 mL 12/22/23 [Rx Confirmed 12/23/23] amoxicillin 875 mg-potassium clavulanate 125 mg tablet 1 tab PO BID 7 days #14 tabs 12/23/23 [Rx Confirmed 12/23/23] oxycodone-acetaminophen 5 mg-325 mg tablet (Percocet) 1 tab PO Q4H PRN pain 3 days #18 tabs 12/23/23 [Rx Confirmed 12/23/23] Post menopausal: No Patient : No : No PFSH PFSH Medical History Abscess of breast Abscess of sternal region Alcohol abuse Anxiety and depression Asthma Bipolar 1 disorder Bipolar affective Cat bite Cat bite of right hand with infection Cat scratch Cat scratch of left hand with infection Cat scratch of right hand with infection Chronic back pain Drug abuse GERD (gastroesophageal reflux disease) Hidradenitis HTN (hypertension) Hyperlipidemia Morbid obesity Neuropathy Non-healing surgical wound Open wound of chest wall, complicated Open wound of left axillary region Osteoarthritis Osteoarthritis Skin graft failure Surgical History H/O neck surgery History of axillary surgery History of section History of tonsillectomy [place] teeth removed Family History Grandmother Thyroid disorderFather Diabetes Heart disease Hypertension High cholesterolMother Heart disease Hypertension High cholesterol Colon cancer Social History household members: family and children number of children: 1 Smoking Status: Current every day smoker tobacco type: cigarettes second hand exposure: No alcohol intake: never substance use type: does not use and former substance user caffeine: Yes what type of physical activity do you participate in: none seatbelt use: always do you feel safe at home: Yes additional social history: single- disability History 1 Elective abortions Hx Para 1 Spontaneous abortions Hx # Term Pregnancies Ectopic pregnancies Hx # Pregnancies Multiple births # of living children Past Pregnancies Del. Date Name GA/Weeks Outcome Route Bth Weight Infant Gen Labor Lgth Anesthesia Del Locatn Provider FOB Unknown 2006 [place] live - full term C-sec tion Female HPI Bartholin gland cyst Details: ROGER HOOD is a 38 year old who presents for painful bartholin gland cyst. She is tearful stating that the last time this was treated in the office, it was very painful. she states this is the 2nd one this year. She prefers treatment in the OR under anesthesia. ROS Const ROS Unobtainable: All systems reviewed & are unremarkable except as noted in H Resp Resp: Reports system reviewed and no additional complaints, except as documented; Denies cough GI GI: Reports as per HPI Psych Psych: Reports system reviewed and no additional complaints, except as documented Exam Const General: cooperative, healthy appearing, comfortable and no acute distress Resp Effort & Inspection: normal respiratory effort Other: THere is a 4 cm bartholin gland cyst. no erythema present. Lymph nodes non-en larged. Skin General: no rashes or lesions noted Psych Appearance: grossly normal Speech and Movement: speech and movement normal Coding Level of Care Code Off vis,est,level 4 Diagnoses Bartholin's gland abscess N75.1 Assessment and Plan Assessment and Plan (1) Bartholin's gland abscess: Status: Acute Plan: plan to start antibiotics pt is now scheduled on Tuesday next week for a marsupilization and I&D. After discussing the patient's diagnosis and treatment plan options, patient wishes to proceed with surgical management. I have discussed with the patient the risks, benefits, and alternatives of the procedure which include but are not limited to risks of anesthesia, bleeding, infection, possible damage to bowel, bladder, or surrounding vasculature which could lead to additional surgery to evaluate any complications. Patient agrees to procedure and wishes to proceed. ACOG/uptodate references given for additional information regarding procedure. Medications: New amoxicillin-pot clavulanate 875-125 mg 1 TAB PO BID 7 days 14 tabs 0RF oxycodone-acetaminophen 5-325 mg (Percocet) 1 TAB PO Q4H 3 days PRN 18 tabs 0RF pain N75.1 - Abscess of Bartholin's gland
--- NOTE | 2023-12-27 14:28 | DCINST_ITS ---
Discharge Instructions Diet Discharge Diet: No restrictions Activity Discharge Activity: Return to Normal Activity, May Shower and May Take a Tub Bath (after 1 week) May resume sexual activity in: 1-2 weeks Weight Bearing Status: Weight bearing as tolerated Lifting Restrictions: none Dressing / Incision Call your doctor if you observe: Fever of 101 or Higher, Using more than 1 pad per hour, Shortness of breath and Uncontrolled pain Follow Up Care Please Follow Up With: Nilda Rousseau DO When: Call [phone] to schedule appointment. Test Results: Test results from this visit will be discussed in further detail at your follow- up appointment, if applicable. Discharge Plan Admission Attending Provider: Nilda Rousseau Primary Care Provider: Aj Staley Discharge Orders/Prescriptions Prescriptions: No Action melatonin 3 mg tablet 10 mg PO QHS PRN PRN (Reason: Insomnia) clonidine HCl 0.1 mg tablet 0.1 mg PO QHS spironolactone 100 mg tablet 100 mg PO DAILY pantoprazole 40 mg tablet,delayed release (DR/EC) 40 mg PO DAILY Aristada 882 mg/3.2 mL suspension,extended rel syring 882 mg IM QMONTH amoxicillin-pot clavulanate 875-125 mg tablet 1 tab PO BID 7 Days Qty: 14 0RF buspirone 10 MG tablet 20 mg PO TID albuterol sulfate 2.5 MG/3 ML solution for nebulization 2.5 mg INHALATION Q2H PRN PRN (Reason: SOB/Wheezing) 0RF tizanidine 4 MG tablet 4 mg PO 4X/DAY gabapentin 300 MG capsule 300 mg PO 4X/DAY albuterol sulfate 90 mcg/actuation HFA aerosol inhaler 1 inh INHALATION Q6H PRN (Reason: shortness of breath or wheezing) oxycodone-acetaminophen 5-325 mg tablet 1 tab PO Q12H PRN (Reason: pain) Trulicity 4.5 mg/0.5 mL pen injector 4.5 mg subcut QWEEK Qty: 2 5RF Referrals / Follow Up: Aj Staley MD [Primary Care Provider] - Disposition Disposition (needs filled in before D/C Order can be placed): Home, Self Care
== END | disposition home or self-care (01) ==
LOC: AC 12-27 15:34 → SDC 10:05
PROVIDERS: PCP Family Medicine; Referring Provider Obstetrics & Gynecology; Visit Provider Obstetrics & Gynecology
DX: N75.1 Abscess of Bartholin's gland (principal); E66.01 Morbid (severe) obesity due to excess calories; Z53.9 Procedure and treatment not carried out, unspecified reason; I10 Essential (primary) hypertension; E78.5 Hyperlipidemia, unspecified; F17.210 Nicotine dependence, cigarettes, uncomplicated
CPT/HCPCS: 81025; 82962; J7120; J2405

== ENCOUNTER → 2024-09-13 | Outpatient (CLI) | payer MEDICARE, MEDICAID, SELFPAY ==
--- NOTE | 2024-09-13 13:27 | BI_ITS ---
MAMMOGRAPHY - BILATERAL SCREENING REASON FOR EXAM: Female, 39 years old. Routine annual screening examination. PERTINENT HISTORY: Non-contributory. TECHNIQUE: Digital bilateral breast danika (3D mammographic acquisition) in the CC and MLO projections. 2-D mediolateral oblique (MLO) and craniocaudad (CC) views of both breasts were obtained. CAD: Full Field Digital Mammography with Computer Added Detection was performed. COMPARISON: None. Baseline examination. FINDINGS: Breast Composition: The breasts are heterogeneously dense, which may obscure small masses. There are no dominant masses or suspicious calcifications. No other significant abnormalities are identified. BI/SCRN MAMM (CAD)W/DANIKA BILAT IMPRESSION: Negative screening mammogram. Yearly followup mammogram recommended. (A) ASSESSMENT CATEGORY: BIRADS Category 1: Negative. A letter regarding these results will be sent to the patient by the facility within 30 days. Approximately 10% of breast cancers are not detected by mammography. A normal mammogram should not delay biopsy of a clinically suspicious abnormality. [id number] Electronically Signed: Solis Martinez MD at 14:25 EDT ,
== END | disposition home or self-care (01) ==
LOC: OPBI 13:27
PROVIDERS: PCP Family Medicine; Referring Provider Obstetrics & Gynecology; Visit Provider Obstetrics & Gynecology
DX: Z12.31 Encounter for screening mammogram for malignant neoplasm of breast (principal)
CPT/HCPCS: 77063; 77067

== ENCOUNTER 2025-06-27 14:06 | Emergency (ER) | payer MEDICARE, MEDICAID, SELFPAY ==
[2025-06-27 14:08] VITALS: BP 158/125; PULSE 124; RESP 24; TEMP 37.2; O2SAT 98; BMI 35.0
--- NOTE | 2025-06-27 14:25 | ED.RN ---
1420: DURING INITIAL TRIAGE, PT. BECAME AGITATED (PT. SCREAMED I WANT MY MOM, RED AND FLUSHED, THREW JEWELRY AT ROOM WALL). BELONGINGS PLACED IN PERSONAL BELONGINGS BAG. HRO, SECURITY, CHARGE NURSE AT BEDSIDE DUE TO PT. PREEXISTING BEHAVIOR AND AGITATION.
--- NOTE | 2025-06-27 14:29 | RAD_ITS ---
PROCEDURE: HAND MIN 3 VIEWS 06/27/2025 REASON FOR EXAM: PAIN TRAUMA TECHNIQUE: HAND MIN 3 VIEWS Laterality: Right COMPARISON: None FINDINGS: Bones: No evidence of acute fracture. Findings suggestive of an old avulsion fracture of the base of the distal phalanx of the 3rd digit. Joints: Normal alignment. Soft tissues: Soft tissues are unremarkable. Other: RAD/Hand Min 3 Views IMPRESSION: No acute abnormality is seen. Reading Location: [facility]
--- NOTE | 2025-06-27 14:29 | CT_ITS ---
PROCEDURE: BRAIN/HEAD WITHOUT CONTRAST 06/27/2025 REASON FOR EXAM: TRAUMA TECHNIQUE: BRAIN/HEAD WITHOUT CONTRAST Coronal and Sagittal reconstruction series were provided. One or more dose reduction techniques were used (e.g., Automated exposure control, adjustment of the mA and/or kV according to patient size, use of iterative reconstruction technique. RADIATION DOSE SUMMARY: CTDlvol: 45 mGy DLP: 846 mGycm COMPARISON: November 06, 2021 FINDINGS: Brain: There is no evidence of hemorrhage, acute ischemia or mass. No extra- axial fluid collection, midline shift or mass effect. CSF Spaces: Normal Sinuses/Mastoids: Minimal mucosal thickening in the ethmoid air cells. Otherwise unremarkable Bones: No fracture CT/Brain/Head without Contrast IMPRESSION: No acute intracranial abnormality. Reading Location: [id number]
[2025-06-27 14:59] LABS: Hematocrit 40.6 % (37-47); Hemoglobin 13.8 g/dL (12.0-15.0); Immature Granulocytes Count 0.050 X10^3/uL (0.0-0.0); Mean Corp Hgb Conc 34.0 g/dL (32-36); Mean Corpuscular Volume 95.1 fL (81-99); Mean Platelet Vol. 8.9 fl (6.2-12.0); NRBC Flagged by Analyzer 0 % (0-5); Platelet Count 357 K/mm3 (150-450); RBC Distribution Width CV 13.6 % (11.6-14.6); RBC Distribution Width SD 47.6 fl (35.1-43.9); Red Blood Count 4.27 M/mm3 (4.2-5.4); White Blood Count 9.3 K/mm3 (4.4-11.0)
[2025-06-27 15:07] VITALS: BP 138/91; PULSE 105; RESP 14; O2SAT 100
--- NOTE | 2025-06-27 15:17 | ED.RN ---
PT. MOTHER CALLED PER PT. REQUEST AND GIVEN AN UPDATE
[2025-06-27 15:22] LABS: Internal QC Validated? YES +Cl - CLEAR BKGD; Pregnancy, Serum, hCG Quali. NEGATIVE Negative; Record Kit Lot#, Serum Preg. 0000962302
[2025-06-27 15:26] LABS: AST(SGOT) 24 U/L (<=31); Alanine Aminotransfer ALT/SGPT 16 U/L (<=34); Albumin, Serum 4.6 g/dL (3.5-5.0); Alkaline Phosphatase 67 U/L (35-104); Anion Gap 12 (5-15); BUN 11 mg/dL (4-19); BUN/Creat Ratio 11.5 RATIO (10-20); Calcium,Total 9.8 mg/dL (7.6-11.0); Carbon Dioxide 23.9 mmol/L (21.0-32.0); Chloride 105 mmol/L (98-108); Estimated Creatinine Clearance 89.03 ml/min (50-250); Globulin 3.0 g/dL (2.2-4.2); Glucose 114 mg/dL (70-99); Potassium 3.6 mmol/L (3.3-5.1)
[2025-06-27 15:38] LABS: Barbiturate Urine NEGATIVE (< 200 ng/mL); Benzodiazepine Urine NEGATIVE (< 200 ng/mL); PCP Urine NEGATIVE (< 25 ng/mL); THC Urine PRESUMPTIVE POSITIVE (< 50 ng/mL)
--- NOTE | 2025-06-27 15:39 | EX.ED.DYSGE1 ---
HPI History of Present Illness Chief Complaint: Suicidal Narrative Narrative: Chief complaint and HPI: Suicidal ideation. 39-year-old female with past medical history of polysubstance abuse, bipolar disorder, personality disorder, HTN, DM presents for evaluation of suicidal ideation. History taken by police as well as patient. Patient states that she was involved in a traffic stop in which there was drugs in the car. She states the drugs did not belong to her but a friend. She states that she did not handle the traffic stop well in which her anxiety increased. Police states that she started to slam her head against the police cruiser. Patient states that she punched a fire hydrant with her right hand. She endorses right hand pain. States police detained her and she began having suicidal ideation. Patient states she has suicidal ideation intermittently. She states her plan would be to have a copywriting intern shoot her. She has no homicidal ideation. She denies any visual dallin or auditory hallucinations. Does admit to methamphetamine abuse last night Review of systems: See HPI Medications: As listed on the chart Allergies: As listed on the chart PFSH: Per chart Vital signs: As listed on the chart. Reviewed. Physical exam: Gen: A&O x3, tearful, anxious Head: Normocephalic, atraumatic Eyes: No sclera icterus, conjunctiva clear, PERRL, EOMI ENT: Moist mucous membranes Neck: Trachea midline, No JVD CV: RRR, no murmurs, no peripheral edema Resp: Lungs CTA BL, no w/r/c GI: Abd soft, non-distended, non-tender, no r/r/g Musc: Full ROM of all the extremities including the right hand-right hand tender to palpation diffusely on the dorsum of the hand, wrist is nontender with full range of motion, no deformity, compartments soft, good capillary refill, radial pulses +2 bilaterally Skin: Warm, dry Neuro: Alert, oriented, grossly intact, sensation intact Psych: Cooperative, tearful, anxious [facility] Medical History Diabetes Wears glasses Wears dentures Marijuana use Difficult intravenous access Arthritis Fatty liver Back pain Injury of head and neck Seizures Constipation Gastric reflux Shortness of breath on exertion History of edema Bipolar 1 disorder Cat bite of right hand with infection Cat bite Neuropathy Hyperlipidemia Anxiety and depression Non-healing surgical wound Hidradenitis HTN (hypertension) Drug abuse Alcohol abuse Asthma Cat scratch of left hand with infection Cat scratch of right hand with infection Cat scratch Abscess of breast Open wound of chest wall, complicated Abscess of sternal region Skin graft failure Open wound of left axillary region Chronic back pain Osteoarthritis Bipolar affective Morbid obesity Home Medications ?Medication ?Instructions ?Recorded ?Last Taken ?Type buspirone 10 mg tablet 20 mg PO TID ANXIETY 06/30/18 12/27/23 History albuterol sulfate 2.5 mg/3 mL 2.5 mg (3 mL) inhalation Q2H PRN 12/15/19 Unknown Rx (0.083 %) solution for nebulization PRN SOB/Wheezing clonidine HCl 0.1 mg tablet 0.1 mg PO QHS 10/22/20 Unknown History melatonin 3 mg tablet 10 mg PO QHS PRN PRN Insomnia 10/22/20 Unknown History gabapentin 300 mg capsule 300 mg PO 4X/DAY 02/12/21 12/27/23 History tizanidine 4 mg tablet 4 mg PO 4X/DAY 02/12/21 Unknown History spironolactone 100 mg tablet 100 mg PO DAILY 07/29/21 Unknown History pantoprazole 40 mg tablet,delayed 40 mg PO DAILY 03/09/22 12/27/23 History release aripiprazole lauroxil 882 mg/3.2 882 mg IM QMONTH 03/08/23 Unknown History mL suspension, ext.rel. IM syringe ([facility]) albuterol sulfate 90 mcg/actuation 1 inh inhalation Q6H PRN shortness 12/26/23 Unknown History aerosol inhaler of breath or wheezing dulaglutide 3 mg/0.5 mL 3 mg (0.5 mL) subcut QWEEK #2 mL 11/26/24 Unknown Rx subcutaneous pen injector ([facility]) Allergy/AdvReac Type Severity Reaction Status Date / Time lamotrigine (From Lamictal) Allergy Mild Rash Verified 06/27/25 14:14 adhesive tape Allergy Rash Verified 06/27/25 14:14 Family History Grandmother Thyroid disorder Father Diabetes Heart disease Hypertension High cholesterol Mother Heart disease Hypertension High cholesterol Colon cancer Surgical History History of axillary surgery H/O neck surgery [place] teeth removed History of section History of tonsillectomy Social History household members: family and children number of children: 1 Smoking Status: Current every day smoker tobacco type: cigarettes second hand exposure: No alcohol intake: never substance use type: does not use and former substance user caffeine: Yes what type of physical activity do you participate in: none seatbelt use: always do you feel safe at home: Yes additional social history: single- disability EXAM Physical Exam Const Vital Signs: 06/27/25 14:08 06/27/25 15:07 06/27/25 16:00 Temperature 98.9 F Temperature Source Oral Pulse Rate 124 H 105 H 71 Respiratory Rate 24 H 14 12 Blood Pressure 158/125 H 138/91 H 124/81 H Blood Pressure Mean 136 106 95 Pulse Ox 98 100 99 Oxygen Delivery Method Room Air Room Air MDM MDM MDM Narrative Medical decision making narrative: 39-year-old female with past medical history of polysubstance abuse, bipolar disorder, personality disorder, HTN, DM presents for evaluation of suicidal ideation. History taken by police as well as patient, see HPI. Patient was in a routine traffic stop in which drugs were found in the car. Patient became anxious and then hit her head multiple times on the police cruiser as well as punched a fire hydrant. Did endorse suicidal ideation. Patient currently endorsing suicidal ideation. States that her plan would be for her, shoot her. Endorses pain in the right hand. Differential diagnosis includes but is not limited to suicidal ideation, personality disorder, depression, anxiety, electrolyte abnormality, substance abuse. X-ray of the hand obtained to assess for fracture versus contusion. Will get CT of the brain although low suspicion for any acute traumatic injury from hitting her head on the cruiser. Patient placed on suicidal watch with pink slip. CBC without leukocytosis or anemia. Platelets unremarkable. CMP unremarkable. Serum negative. Urine drug screen positive for amphetamines and cannabis. Alcohol level unremarkable. CT of the head shows no acute cranial abnormality. X-ray of the right hand was personally viewed interpreted by me, no acute fracture or dislocation. Per radiology an old avulsion fracture. Patient is medically cleared for crisis evaluation. Crisis evaluated the patient. Patient is no longer endorsing suicidal ideation. She states that she understands that her behavior was unacceptable. States that she got overly emotional and sad a lot of things she did not mean. I personally spoke with the patient, she is not endorsing any suicidal ideation. I do believe that her response was behavioral. She follows closely with counseling and psychiatry. She was safety planned. Patient is stable to discharge home. Impression: 1. Suicidal ideation, resolved 2. Personality disorder 3. Right hand contusion Lab Data Labs: Laboratory Results - last 24 hr 06/27/25 14:50 WBC 9.3 RBC 4.27 Hgb 13.8 Hct 40.6 MCV 95.1 MCH 32.3 H MCHC 34.0 RDW Std Deviation 47.6 H RDW Coeff of Radha 13.6 Plt Count 357 MPV 8.9 Immature Gran % (Auto) 0.500 Neut % (Auto) 58.2 Lymph % (Auto) 33.8 [place] % (Auto) 5.1 Eos % (Auto) 1.4 Baso % (Auto) 1.0 Absolute Neuts (auto) 5.4 Absolute Lymphs (auto) 3.16 Nucleated RBC % 0 Sodium 141 Potassium 3.6 Chloride 105 Carbon Dioxide 23.9 Anion Gap 12 BUN 11 Creatinine 0.96 Estim Creat Clear Calc 89.03 Est GFR (MDRD) Non-Af 77 BUN/Creatinine Ratio 11.5 Glucose 114 H Calcium 9.8 Total Bilirubin 0.42 AST 24 ALT 16 Alkaline Phosphatase 67 Total Protein 7.6 Albumin 4.6 Globulin 3.0 Albumin/Globulin Ratio 1.6 Serum , Qual NEGATIVE Urine Opiates Screen NEGATIVE U Buprenorphine Qual NEGATIVE Ur Oxycodone Screen NEGATIVE Urine Methadone Screen NEGATIVE Urine Fentanyl Screen NEGATIVE Ur Barbiturates Screen NEGATIVE Ur Phencyclidine Scrn NEGATIVE Ur Amphetamines Screen PRESUMPTIVE POSITIVE U Benzodiazepines Scrn NEGATIVE Urine Cocaine Screen NEGATIVE U Cannabinoids Screen PRESUMPTIVE POSITIVE Ethyl Alcohol < 10.1 Radiography Diagnostic Testing: Clinical Impression(s) from Imaging Studies Brain CT 06/27/25 14:29 IMPRESSION: No acute intracranial abnormality. Reading Location: [id number] Hand X-Ray 06/27/25 14:29 IMPRESSION: No acute abnormality is seen. Reading Location: [facility] Discharge Plan Triage Chief Complaint: Suicidal ED Provider: Soto Lyons Dx/Rx/DC Orders Prescriptions: No Action melatonin 3 mg tablet 10 mg PO QHS PRN PRN (Reason: Insomnia) clonidine HCl 0.1 mg tablet 0.1 mg PO QHS Patient Comments: has not taken in over 6 months spironolactone 100 mg tablet 100 mg PO DAILY pantoprazole 40 mg tablet,delayed release (DR/EC) 40 mg PO DAILY [facility] 882 mg/3.2 mL suspension,extended rel syring 882 mg IM QMONTH Patient Comments: takes every 28 days, Tuesday's Trulicity 3 mg/0.5 mL pen injector 3 mg subcut QWEEK Qty: 2 7RF Patient Comments: takes on Tuesday's buspirone 10 MG tablet 20 mg PO TID Patient Comments: has not taken in over 6 months albuterol sulfate 2.5 MG/3 ML solution for nebulization 2.5 mg INHALATION Q2H PRN PRN (Reason: SOB/Wheezing) 0RF tizanidine 4 MG tablet 4 mg PO 4X/DAY gabapentin 300 MG capsule 300 mg PO 4X/DAY albuterol sulfate 90 mcg/actuation HFA aerosol inhaler 1 inh INHALATION Q6H PRN (Reason: shortness of breath or wheezing) Primary Care Provider: Aj Staley Referrals: Aj Staley MD [Primary Care Provider] - Print Language: French
[2025-06-27 15:45] LABS: Alcohol, Blood (Medical)-Serum < 10.1 mg/dL (<=10.0)
[2025-06-27 16:00] VITALS: BP 124/81; PULSE 71; RESP 12; O2SAT 99
[2025-06-27 18:24] VITALS: BP 118/67; PULSE 66; RESP 14; TEMP 37.1; O2SAT 100
== END 2025-06-27 18:24 | disposition home or self-care (01) ==
PROVIDERS: Emergency Provider Surgery; PCP Family Medicine; Visit Provider Surgery
DX: R45.851 Suicidal ideations (principal); F60.9 Personality disorder, unspecified; F31.9 Bipolar disorder, unspecified; F17.210 Nicotine dependence, cigarettes, uncomplicated; S60.221A Contusion of right hand, initial encounter; I10 Essential (primary) hypertension; E78.5 Hyperlipidemia, unspecified; Z79.51 Long term (current) use of inhaled steroids; Z79.899 Other long term (current) drug therapy; X58.XXXA Exposure to other specified factors, initial encounter
CPT/HCPCS: 70450; 73130; 80053; 80307; 82077; 84703; 85025; 99285

== ENCOUNTER → 2025-08-05 | Outpatient (CLI) | payer MEDICARE, MEDICAID, SELFPAY ==
[2025-08-05 16:29] LABS: AST(SGOT) 25 U/L (<=31); Alanine Aminotransfer ALT/SGPT 14 U/L (<=34); Albumin, Serum 4.4 g/dL (3.5-5.0); Alkaline Phosphatase 59 U/L (35-104); Anion Gap 11 (5-15); BUN 9 mg/dL (4-19); BUN/Creat Ratio 9.6 RATIO (10-20); Calcium,Total 9.7 mg/dL (7.6-11.0); Carbon Dioxide 23.7 mmol/L (21.0-32.0); Chloride 106 mmol/L (98-108); Cholesterol 172 mg/dL (<=200); Globulin 3.2 g/dL (2.2-4.2); Glucose 87 mg/dL (70-99); Low Density Lipoprotein Calc. 108 mg/dL; Potassium 4.5 mmol/L (3.3-5.1); Triglycerides 76 mg/dL; Very Low Density Lipoprotein 15 mg/dL (5-40); Vitamin D,25 Hydroxy 33.0 ng/mL (30-100); cholesterol:hdl ratio screen 3.55
[2025-08-05 16:50] LABS: Creatinine, Urine (random) 259.00 mg/dL (28.00-217.00); Microalbumin,Random Urine < 12.0 mg/L (<20 mg/L)
== END | disposition home or self-care (01) ==
LOC: BIMLAB 11:47
PROVIDERS: PCP Family Medicine; Visit Provider Nurse Practitioner Family
DX: E11.65 Type 2 diabetes mellitus with hyperglycemia (principal); E55.9 Vitamin D deficiency, unspecified
CPT/HCPCS: 36415; 80053; 80061; 82043; 82306; 82570; 84443

== ENCOUNTER → 2025-09-16 | Outpatient (CLI) | payer MEDICARE, MEDICAID, SELFPAY ==
--- NOTE | 2025-09-16 13:30 | BI_ITS ---
EXAM: BI/SCRN MAMM (CAD)W/DANIKA BILAT
== END | disposition home or self-care (01) ==
PROVIDERS: PCP Family Medicine; Referring Provider Obstetrics & Gynecology; Visit Provider Obstetrics & Gynecology
DX: Z12.31 Encounter for screening mammogram for malignant neoplasm of breast (principal)
CPT/HCPCS: 77063; 77067

== ENCOUNTER 2025-09-25 06:43 | Day surgery (SDC) | payer MEDICARE, MEDICAID, SELFPAY ==
--- NOTE | 2025-09-24 12:38 | PAT.ANESEVAL ---
Pre-Assessment Diagnosis/Proposed Procedure Planned Operative Procedure(s): EGD Anesthesia History Anesthesia History - oncology nurse: Anesthesia History - oncology nurse Hx Hospitalization No 09/24/25 09:25 Any Problems With Anesthesia No 09/24/25 09:25 Cholinesterase deficiency No 09/24/25 09:25 You/Your Family Experience No 09/24/25 09:25 fever (hyperthermia) with Relationship Recent Exposure to Contagious No 11/06/24 10:50 Disease Does patient have nerve No 09/24/25 09:25 stimulator Patient instructed to have device shut off --Does patient have Pacemaker or ICD? When Was Last Pacemaker Check QUESTION #4 FULL TEXT: You/Your Family Experience fever (hyperthermia) with Anesthesia Last Oral Intake Last Oral intake: Last Oral Intake NPO since Meds taken in AM with sips of water? Meds patient instructed to take am of surgery PONV PONV - oncology nurse: PONV - oncology nurse Female Yes 09/24/25 09:25 HX of Motion Sickness Yes 09/24/25 09:25 HX of N/V After Surgery Yes 09/24/25 09:25 Non-Smoker Yes 09/24/25 09:25 Duration of Surgery greater No 09/24/25 09:25 than 60 minutes Number of Risk Factors 4 09/24/25 09:25 PONV Score Severe Risk 09/24/25 09:25 Height & Weight Height & Weight: Anesthesia: Height & Weight Height 5 ft 5 in 09/03/25 11:04 Respiratory Assessment Respiratory Assessment - oncology nurse: Respiratory Tract Infection Hx - oncology nurse Hx Respiratory Tract Infection No 09/24/25 09:25 STOP Sleep Apnea STOP Sleep Apnea - oncology nurse: STOP Sleep Apnea - oncology nurse Hx Hypertension No 09/24/25 09:25 Hx Sleep Apnea Yes: MILD, NO MACHINE NEEDED 09/24/25 09:25 CPAP No 09/24/25 09:25 BIPAP No 09/24/25 09:25 Do you snore loudly (louder than talking or can be heard Do you often feel tired/ fatigued/ sleepy during daytime? Has anyone observed you stop breathing during sleep? STOP Results Positive 09/24/25 09:25 QUESTION #5 FULL TEXT : Do you snore loudly (louder than talking or can be heard through closed doors)? 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 Specify any problems Hx of Preganancy in last 3 N/A 09/24/25 09:25 Months Nurse Filling Out Transfusion NBUCHER 09/24/25 09:25 & Questions: Date: 09/24/25 09/24/25 09:25 Time: 09/24/25 09:25 Patient unable to answer at this time (ie. confused, unrespo /Reproduction History /Reproductive History - oncology nurse: /Reproductive Hx- oncology nurse Hx Now No 09/24/25 09:25 Gestational Age (in weeks): EDC: Hx Hx Para Hx Section SAB No 09/24/25 09:25 [facility] Medical History (Updated 09/24/25 @ 09:32 by Carina Self) MRSA infection History of steroid therapy Osteoarthritis Restless legs Dietary restriction Sleep apnea History of hidradenitis suppurativa PONV (postoperative nausea and vomiting) Diabetes Wears glasses Wears dentures Marijuana use Difficult intravenous access Arthritis Fatty liver Back pain Injury of head and neck Seizures Constipation Gastric reflux Shortness of breath on exertion History of edema Bipolar 1 disorder Cat bite of right hand with infection Cat bite Neuropathy Hyperlipidemia Anxiety and depression Non-healing surgical wound Hidradenitis HTN (hypertension) Drug abuse Alcohol abuse Asthma Cat scratch of left hand with infection Cat scratch of right hand with infection Cat scratch Abscess of breast Open wound of chest wall, complicated Abscess of sternal region Skin graft failure Open wound of left axillary region Chronic back pain Osteoarthritis Bipolar affective Morbid obesity Home Medications ?Medication ?Instructions ?Recorded ?Last Taken ?Type buspirone 10 mg tablet 20 mg PO TID ANXIETY 06/30/18 12/27/23 History albuterol sulfate 2.5 mg/3 mL 2.5 mg (3 mL) inhalation Q2H PRN 12/15/19 Unknown Rx (0.083 %) solution for nebulization PRN SOB/Wheezing clonidine HCl 0.1 mg tablet 0.1 mg PO QHS 10/22/20 Unknown History melatonin 3 mg tablet 10 mg PO QHS PRN PRN Insomnia 10/22/20 Unknown History gabapentin 300 mg capsule 300 mg PO 4X/DAY 02/12/21 12/27/23 History tizanidine 4 mg tablet 4 mg PO 4X/DAY 02/12/21 Unknown History spironolactone 100 mg tablet 100 mg PO DAILY 07/29/21 Unknown History aripiprazole lauroxil 882 mg/3.2 882 mg IM QMONTH 03/08/23 Unknown History mL suspension, ext.rel. [facility] albuterol sulfate 90 mcg/actuation 1 inh inhalation Q6H PRN shortness 12/26/23 Unknown History aerosol inhaler of breath or wheezing dulaglutide 1.5 mg/0.5 mL 1.5 mg (0.5 mL) subcut QWEEK #2 mL 07/29/25 09/08/25 Rx subcutaneous pen injector ([facility]ul[facility]) lubiprostone 8 mcg capsule 8 mcg PO QDAY #90 caps 09/03/25 Unknown Rx ([facility]) pantoprazole 40 mg tablet,delayed 40 mg PO BID #180 tabs 09/03/25 Unknown Rx release oxycodone-acetaminophen 5 mg-325 1 tab PO 4X/DAY PRN PRN pain 09/24/25 Unknown History mg tablet prednisone 20 mg tablet 20 mg PO BID 09/24/25 Unknown History Allergy/AdvReac Type Severity Reaction Status Date / Time lamotrigine (From Lamictal) Allergy Mild Rash Verified 09/24/25 09:21 adhesive tape Allergy Rash Verified 09/24/25 09:21 Family History Grandmother Thyroid disorder Father Diabetes Heart disease Hypertension High cholesterol Mother Heart disease Hypertension High cholesterol Colon cancer Surgical History (Updated 09/24/25 @ 09:32 by Carina Self) History of axillary surgery H/O neck surgery [place] teeth removed History of section History of tonsillectomy Social History (Updated 09/03/25 @ 10:58 by Sandee Trejo) household members: family and children number of children: 1 Smoking Status: Current every day smoker tobacco type: cigarettes second hand exposure: No alcohol intake: never substance use type: does not use, former substance user and marijuana caffeine: Yes what type of physical activity do you participate in: none seatbelt use: always do you feel safe at home: Yes additional social history: single- disability Audit: Pertinent Findings Pertinent Findings EKG Perinent findings: 02/15/2023. Normal sinus rhythm. Right axis deviation. Recommendation Anesthesia Recommendation Anesthesia recommendation: OPTIMIZED for anesthesia
[2025-09-25] VITALS (7 sets, daily range): BP systolic 100–113; BP diastolic 58–96; PULSE 80–100; RESP 12–16; TEMP 36.1–36.4; O2SAT 99–100; BMI 33.7
[2025-09-25] MEDS: Lactated Ringers 1,000 ML 15 ML IV (07:00)
--- NOTE | 2025-09-25 07:22 | PCM.HP.STD ---
HPI - General General Date of Admission: 09/25/25 Date of Service: 09/25/25 Chief Complaint: GERD HPI Narrative ROGER HOOD, is a 40 F who presents Chief Complaint: GERD Details: The patient is a 39-year-old female presenting with exacerbated symptoms of Gastroesophageal Reflux Disease (GERD). The patient reports having experienced GERD for many years, with a recent worsening in symptoms over the past few months. The patient describes a burning sensation extending from the stomach up to the throat, accompanied by daily morning vomiting of bile. She is currently taking Protonix and Pepcid (added three weeks prior at bedtime), though symptoms persist. Historically, the patient was on omeprazole before insurance coverage issues led to a switch to Protonix. Additionally, the patient reports dealing with nausea and bile vomiting every morning. She has experienced episodes of vomiting food consumed the night before, potentially due to slow gastric emptying influenced by Trulicity, which the patient has been on for about five years for Type 2 Diabetes Mellitus. The dosage of Trulicity has been reduced progressively as advised due to these issues. Despite significant weight loss with Trulicity, the patient notes persistence and progressive worsening of symptoms. She denies any family history of esophageal or stomach cancer but has maternal history of colon polyps. The patient reports worsening symptoms with certain foods, particularly spicy foods and eating late. Previous endoscopic evaluations conducted many years ago revealed GERD. The patient expresses concern about delayed gastric emptying and the possible contribution of Trulicity to prolonged digestion and symptomatology. - GERD for many years, getting worse - epigastric burning up into throat - vomiting bile every morning - Trulicity x5 years, recently reduced but has not shown improvement - protonix 40mg daily every am for many years - previously on Omeprazole switched to protonix due to insurance - pepcid at HS added 3 weeks ago and has shown no improvement - she has been diabetic for the past 15 years - 60lb weight loss in the past 5 years - vomiting of food on occasion, trulicity induced gastroparesis - remote history of Colon & EGD - mom with colon polyps - denies any family h/o colon CA - reports no history of colon polyps - quit smoking 5 days ago - NSAIDS on occasion - denies any dysphagia - she used to be on Amitiza when she was on narcotics - she now has a BM every 2-3 days - poor prep with last colonoscopy - reports she is traumatized from last colonoscopy REPLACED BY [facility] Medical History MRSA infection History of steroid therapy Osteoarthritis Restless legs Dietary restriction Sleep apnea History of hidradenitis suppurativa PONV (postoperative nausea and vomiting) Diabetes Wears glasses Wears dentures Marijuana use Difficult intravenous access Arthritis Fatty liver Back pain Injury of head and neck Seizures Constipation Gastric reflux Shortness of breath on exertion History of edema Bipolar 1 disorder Cat bite of right hand with infection Cat bite Neuropathy Hyperlipidemia Anxiety and depression Non-healing surgical wound Hidradenitis HTN (hypertension) Drug abuse Alcohol abuse Asthma Cat scratch of left hand with infection Cat scratch of right hand with infection Cat scratch Abscess of breast Open wound of chest wall, complicated Abscess of sternal region Skin graft failure Open wound of left axillary region Chronic back pain Osteoarthritis Bipolar affective Morbid obesity Home Medications ?Medication ?Instructions ?Recorded ?Last Taken ?Type buspirone 10 mg tablet 20 mg PO TID ANXIETY 06/30/18 09/24/25 History albuterol sulfate 2.5 mg/3 mL 2.5 mg (3 mL) inhalation Q2H PRN 12/15/19 Unknown Rx (0.083 %) solution for nebulization PRN SOB/Wheezing clonidine HCl 0.1 mg tablet 0.1 mg PO QHS 10/22/20 09/24/25 History melatonin 3 mg tablet 10 mg PO QHS PRN PRN Insomnia 10/22/20 Unknown History gabapentin 300 mg capsule 300 mg PO 4X/DAY 02/12/21 09/24/25 History tizanidine 4 mg tablet 4 mg PO 4X/DAY 02/12/21 09/24/25 History spironolactone 100 mg tablet 100 mg PO DAILY 07/29/21 09/24/25 History aripiprazole lauroxil 882 mg/3.2 882 mg IM QMONTH 03/08/23 09/02/25 History mL suspension, ext.rel. IM syringe ([facility]) albuterol sulfate 90 mcg/actuation 1 inh inhalation Q6H PRN shortness 12/26/23 Unknown History aerosol inhaler of breath or wheezing dulaglutide 1.5 mg/0.5 mL 1.5 mg (0.5 mL) subcut QWEEK #2 mL 07/29/25 09/08/25 Rx subcutaneous pen injector (Trulicity) lubiprostone 8 mcg capsule 8 mcg PO QDAY #90 caps 09/03/25 09/24/25 Rx (Amitiza) pantoprazole 40 mg tablet,delayed 40 mg PO BID #180 tabs 09/03/25 09/24/25 Rx release oxycodone-acetaminophen 5 mg-325 1 tab PO 4X/DAY PRN PRN pain 09/24/25 09/23/25 History mg tablet prednisone 20 mg tablet 20 mg PO BID 09/24/25 09/24/25 History Allergy/AdvReac Type Severity Reaction Status Date / Time lamotrigine (From Lamictal) Allergy Mild Rash Verified 09/25/25 07:10 adhesive tape Allergy Rash Verified 09/25/25 07:10 Family History Grandmother Thyroid disorder Father Diabetes Heart disease Hypertension High cholesterol Mother Heart disease Hypertension High cholesterol Colon cancer Surgical History History of axillary surgery H/O neck surgery [place] teeth removed History of section History of tonsillectomy Social History household members: family and children number of children: 1 Smoking Status: Current every day smoker tobacco type: cigarettes second hand exposure: No alcohol intake: never substance use type: does not use, former substance user and marijuana caffeine: Yes what type of physical activity do you participate in: none seatbelt use: always do you feel safe at home: Yes additional social history: single- disability ROS Constitutional Constitutional: Denies fatigue, fever(s), poor appetite, weight gain or weight loss Gastrointestinal Gastrointestinal: Denies belching, bloating, change in bowel habits, change in stool character, chewing difficulty, coffee ground emesis, constipation, cramping, diarrhea, dyspepsia, dysphagia, early satiety, excessive flatus, fecal incontinence, heartburn, hematemesis, hematochezia, hemorrhoids, loose stools, melena, nausea, odynophagia, rectal bleeding, tenesmus, vomiting or weight changes Vital Signs Vital Signs Vital Signs: 09/25/25 07:12 09/25/25 07:12 Temperature 97.5 F L Temperature Source Temporal Pulse Rate 90 Respiratory Rate 12 Respiratory Pattern Normal Blood Pressure 111/96 H Blood Pressure Mean 101 Blood Pressure Source Monitor Blood Pressure Position Semi-Fowlers Blood Pressure Location Right Arm Pulse Ox 99 Oxygen Delivery Method Room Air Weight Weight: 202 lb 13.204 oz Body Mass Index (BMI) 33.7 Physical Exam Const alert, oriented x3, no apparent distress and healthy appearing General Appearance: cooperative GI normal to inspection, nondistended, normoactive bowel sounds, soft to palpation, non-tender and non-distended Percussion: normal to percussion Rectal Exam: deferred Assessment & Plan Assessment/Plan (1) Gastroparesis: (2) GERD (gastroesophageal reflux disease): QUALIFIERS: Esophagitis presence: esophagitis presence not specified Qualified Code(s): K21.9 - Gastro-esophageal reflux disease without esophagitis PLAN: Assessment and Plan Assessment and Plan (1) GERD (gastroesophageal reflux disease): Status: Chronic Qualifiers: Esophagitis presence: esophagitis presence not specified Qualified Code(s): K21.9 - Gastro-esophageal reflux disease without esophagitis Plan: Increase the dose of pantoprazole (Protonix) to twice daily, before breakfast and before dinner, maintaining Pepcid at bedtime to manage GERD symptoms. The patient was informed about the risks and benefits, including better symptom control and potential side effects of PPIs. A recommendation was made for an upper endoscopy to assess for possible hiatal hernia or mucosal lesions. Dietary adjustments and avoidance of known triggers were advised. (2) Gastroparesis: Status: Acute Plan: Due to the patient's diabetic status and symptoms suggestive of gastroparesis, manage symptoms with a low-dose prescription of amitiza to potentially improve bowel motility. Follow gastroparesis dietary guidelines and continue situation-adaptive sugar management, staying vigilant for hypoglycemic events. This patient has diabetes, long-standing GERD not controlled by pantoprazole and famotidine, multiple OTHER SPATIAL SCIENTIST-active medications (aripiprazole lauroxil, gabapentin, tizanidine, buspirone, melatonin). Adding a medication such as metoclopramide increases risk of extrapyramidal symptoms (EPS), tardive dyskinesia (TD), neuroleptic malignant syndrome (NMS), and OTHER SPATIAL SCIENTIST depression (sedation, confusion, respiratory depression). Dietary and lifestyle modifications encouraged. (3) Constipation: Status: Acute Plan: Start Amitiza 8mcg daily Medications: New pantoprazole take 30 minutes before breakfast and dinner 40 mg PO BID 180 tabs 1RF lubiprostone (Amitiza) take every morning with breakfast 8 mcg PO QDAY 90 caps 1RF Discontinued pantoprazole Discontinued Reason: Order Completed 40 mg PO DAILY Plan 39-year-old female with a history of GERD and other comorbidities presenting with GERD exacerbation characterized by daily bile vomiting and persistent reflux symptoms despite current Protonix and Pepcid therapy. The patient's gastroparesis symptoms are likely exacerbated by Trulicity use for diabetes management, affecting her gastric motility. Historical endoscopic evaluations suggested GERD, and there is a family history of colon polyps. The management plan will focus on optimizing GERD treatment and evaluating for potential gastroparesis. Patient Instructions: 1. Call office with Pepcid dosing and will send in RX 2. Increase pantoprazole to 40mg BID 3. Start Amitiza 8mcg once daily 4. EGD (Trulicity hold) will require US guided IV access. NPO after 5pm evening prior to procedure. 5. Follow-up via phone/portal in 3 weeks with symptom update. 6. Colonoscopy in future. Would recommend 1.5d bowel prep and starting laxative earlier in the day (1pm), drink smaller quantities over longer period of time. 7. Gastroparesis Diet provided. 8. Avoid eating spicy or late-night meals, and eat smaller, more frequent meals. 9. Follow-up in office post procedure. ]
--- NOTE | 2025-09-25 07:23 | PCM.PRE.AN2 ---
ASA Classification* ASA Classification ASA Classification: 2 (GERD, Asthma, on dulaglutide (last taken 09/08), anxiety) Assessment & Plan Anesthesia* Anesthesia Assessment Anesthesia Assessment: Discussed sedation and/or anesthesia options, risks, benefits, and alternatives with patient/parents/legal guardian/POA. Questions invited. The patient/parents/legal guardian/POA seems to understand and agrees to proceed with anesthesia plan. Reviewed the physical assessment, medical history, allergy history and patient home medications list prior to surgery/procedure/anesthetic and documented any changes. Performed airway and anesthesia risk assessments. Anesthesia Type Anesthesia Type: MAC History Source History Obtained from:: Patient and Chart Anesthesia Focused Assessment* Temperature: 97.5 F Pulse Rate: 90 Blood Pressure: 111/96 Respiratory Rate: 12 Pulse Ox: 99 Oxygen Delivery Method: Room Air Airway Assessment Mouth opens: >3 cm Mallampati Score: III Teeth Condition: Intact Neck Range of motion (ROM): Full ROM Labs Anesthesia Preop lab: CBC WBC, (4.4-11.0) 9.3 K/mm3 06/27/25, 14:50 RBC, (4.2-5.4) 4.27 M/mm3 06/27/25, 14:50 Hgb, (12.0-15.0) 13.8 g/dL 06/27/25, 14:50 Hct, (37-47) 40.6 % 06/27/25, 14:50 Plt Count, (150-450) 357 K/mm3 06/27/25, 14:50 CHEMISTRY Potassium, (3.3-5.1) 4.5 mmol/L 08/05/25, 11:48 Sodium, (133-145) 141 mmol/L 08/05/25, 11:48 Magnesium, (1.6-2.6) 1.8 mg/dL 09/20/20, 16:18 BUN, (4-19) 9 mg/dL 08/05/25, 11:48 Creatinine, (0.70-1.20) 0.91 mg/dL 08/05/25, 11:48 Glucose, (70-99) 87 mg/dL 08/05/25, 11:48 POC Glucose, (74-106) 94 mg/dL 12/27/23, 13:22 TSH, (0.300-4.200) 1.350 uIU/mL 08/05/25, 11:48 COAG Urine Test Negative Negative 12/27/23, 12:40 Tst Clinic Negative 09/09/20, 10:46 Pre-Assessment Diagnosis/Proposed Procedure Planned Operative Procedure(s): EGD Anesthesia History Anesthesia History - [employer]: Anesthesia History - [employer] Hx Hospitalization No 09/24/25 09:25 Any Problems With Anesthesia No 09/24/25 09:25 Cholinesterase deficiency No 09/24/25 09:25 You/Your Family Experience No 09/24/25 09:25 fever (hyperthermia) with Relationship Recent Exposure to Contagious No 09/25/25 07:12 Disease Does patient have nerve No 09/24/25 09:25 stimulator Patient instructed to have device shut off --Does patient have Pacemaker No 09/25/25 07:12 or ICD? When Was Last Pacemaker Check QUESTION #4 FULL TEXT: You/Your Family Experience fever (hyperthermia) with Anesthesia Last Oral Intake Last Oral intake: Last Oral Intake NPO since 15:30 09/25/25 07:12 Meds taken in AM with sips of No 09/25/25 07:12 water? Meds patient instructed to take am of surgery PONV PONV - [employer]: PONV - [employer] Female Yes 09/24/25 09:25 HX of Motion Sickness Yes 09/24/25 09:25 HX of N/V After Surgery Yes 09/24/25 09:25 Non-Smoker Yes 09/24/25 09:25 Duration of Surgery greater No 09/24/25 09:25 than 60 minutes Number of Risk Factors 4 09/24/25 09:25 PONV Score Severe Risk 09/24/25 09:25 Height & Weight Height & Weight: Anesthesia: Height & Weight Height 5 ft 5 in 09/25/25 07:12 Weight: 92 kg 09/25/25 07:12 Body Mass Index (BMI) 33.7 09/25/25 07:12 Respiratory Assessment Respiratory Assessment - [employer]: Respiratory Tract Infection Hx - [employer] Hx Respiratory Tract Infection No 09/24/25 09:25 STOP Sleep Apnea STOP Sleep Apnea - [employer]: STOP Sleep Apnea - [employer] Hx Hypertension No 09/24/25 09:25 Hx Sleep Apnea Yes: MILD, NO MACHINE NEEDED 09/24/25 09:25 CPAP No 09/24/25 09:25 BIPAP No 09/24/25 09:25 Do you snore loudly (louder than talking or can be heard Do you often feel tired/ fatigued/ sleepy during daytime? Has anyone observed you stop breathing during sleep? STOP Results Positive 09/24/25 09:25 QUESTION #5 FULL TEXT : Do you snore loudly (louder than talking or can be heard through closed doors)? 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 Specify any problems Hx of Preganancy in last 3 N/A 09/24/25 09:25 Months Nurse Filling Out Transfusion NBUCHER 09/24/25 09:25 & Questions: Date: 09/24/25 09/24/25 09:25 Time: :26 09/24/25 09:25 Patient unable to answer at this time (ie. confused, unrespo /Reproduction History /Reproductive History - [employer]: /Reproductive Hx- [employer] Hx Now No 09/24/25 09:25 Gestational Age (in weeks): EDC: Hx Hx Para Hx Section SAB No 09/24/25 09:25 Active Medications Active Medications: Current Medications Generic Name Dose Route Start Last Admin Trade Name Freq PRN Reason Stop Dose Admin Lactated Ringer's 1,000 mls @ 15 mls/hr 09/25/25 07:00 IV .Q48H MANOLO PFSH Medical History (Updated 09/24/25 @ 09:32 by Carina M Clair) MRSA infection History of steroid therapy Osteoarthritis Restless legs Dietary restriction Sleep apnea History of hidradenitis suppurativa PONV (postoperative nausea and vomiting) Diabetes Wears glasses Wears dentures Marijuana use Difficult intravenous access Arthritis Fatty liver Back pain Injury of head and neck Seizures Constipation Gastric reflux Shortness of breath on exertion History of edema Bipolar 1 disorder Cat bite of right hand with infection Cat bite Neuropathy Hyperlipidemia Anxiety and depression Non-healing surgical wound Hidradenitis HTN (hypertension) Drug abuse Alcohol abuse Asthma Cat scratch of left hand with infection Cat scratch of right hand with infection Cat scratch Abscess of breast Open wound of chest wall, complicated Abscess of sternal region Skin graft failure Open wound of left axillary region Chronic back pain Osteoarthritis Bipolar affective Morbid obesity Home Medications ?Medication ?Instructions ?Recorded ?Last Taken ?Type buspirone 10 mg tablet 20 mg PO TID ANXIETY 06/30/18 09/24/25 History albuterol sulfate 2.5 mg/3 mL 2.5 mg (3 mL) inhalation Q2H PRN 12/15/19 Unknown Rx (0.083 %) solution for nebulization PRN SOB/Wheezing clonidine HCl 0.1 mg tablet 0.1 mg PO QHS 10/22/20 09/24/25 History melatonin 3 mg tablet 10 mg PO QHS PRN PRN Insomnia 10/22/20 Unknown History gabapentin 300 mg capsule 300 mg PO 4X/DAY 02/12/21 09/24/25 History tizanidine 4 mg tablet 4 mg PO 4X/DAY 02/12/21 09/24/25 History spironolactone 100 mg tablet 100 mg PO DAILY 07/29/21 09/24/25 History aripiprazole lauroxil 882 mg/3.2 882 mg IM QMONTH 03/08/23 09/02/25 History mL suspension, ext.rel. IM syringe ([facility]) albuterol sulfate 90 mcg/actuation 1 inh inhalation Q6H PRN shortness 12/26/23 Unknown History aerosol inhaler of breath or wheezing dulaglutide 1.5 mg/0.5 mL 1.5 mg (0.5 mL) subcut QWEEK #2 mL 07/29/25 09/08/25 Rx subcutaneous pen injector ([facility]) lubiprostone 8 mcg capsule 8 mcg PO QDAY #90 caps 09/03/25 09/24/25 Rx (Amitiza) pantoprazole 40 mg tablet,delayed 40 mg PO BID #180 tabs 09/03/25 09/24/25 Rx release oxycodone-acetaminophen 5 mg-325 1 tab PO 4X/DAY PRN PRN pain 09/24/25 09/23/25 History mg tablet prednisone 20 mg tablet 20 mg PO BID 09/24/25 09/24/25 History Allergy/AdvReac Type Severity Reaction Status Date / Time lamotrigine (From Lamictal) Allergy Mild Rash Verified 09/25/25 07:10 adhesive tape Allergy Rash Verified 09/25/25 07:10 Family History Grandmother Thyroid disorder Father Diabetes Heart disease Hypertension High cholesterol Mother Heart disease Hypertension High cholesterol Colon cancer Surgical History (Updated 09/24/25 @ 09:32 by Carina Self) History of axillary surgery H/O neck surgery [place] teeth removed History of section History of tonsillectomy Social History (Updated 09/03/25 @ 10:58 by Sandee Trejo) household members: family and children number of children: 1 Smoking Status: Current every day smoker tobacco type: cigarettes second hand exposure: No alcohol intake: never substance use type: does not use, former substance user and marijuana caffeine: Yes what type of physical activity do you participate in: none seatbelt use: always do you feel safe at home: Yes additional social history: single- disability Review of Systems (Anesthesia) ROS Narrative System reviewed and no additional complaints, except as documented.
[2025-09-25 07:29] LABS: Internal QC Validated? YES +Cl - CLEAR BKGD; Pregnancy, Urine Negative Negative
[2025-09-25 07:32] LABS: Record Kit Lot#,Urine Preg 0000980607
--- NOTE | 2025-09-25 07:45 | EGD_PTH ---
PATIENT: ROGER HOOD LOC: EN U#:[id number] AGE/SX: 40/F ROOM: RE09/25/[address]: Dr. Maikel Stevens DO : 1985 BED: DIS: 09/25/2025 SPEC #: [id number] RECD: 09/25/25 09:16 STATUS: MAYI REGarrett #: [id number] RADHAMES: 09/25/25 07:[address]: Maikel Stevens DEPT: SURGICAL PATHOLOGY RECD BY: Medhat Carrillo ENTERED: 09/25/25 11:05 SP TYPE: EGD BIOPSY LUZ MARIA DR: Dr. Aj Staley MD Tissues: A - Esophagus, NOS B - Gastric mucous membrane C - Duodenum, NOS Procedures: Immunohistochemical Stains Surgery Specimen Level IV HEADER OPERATION: EGD with biopsy PRE-OP DIAGNOSIS: Gastroparesis, GERD TISSUE SUBMITTED: A- Distal esophagus biopsy, B- Gastric body biopsy, C- Duodenum biopsy MICROSCOPIC DIAGNOSIS A. Distal esophagus, biopsy: - Squamous mucosa with reactive changes and up to 6 eosinophils per high power field. - Cardio-oxyntic mucosa negative for goblet cell metaplasia. B. Gastric body, biopsy: - Oxyntic mucosa with features of reactive gastropathy. - IHC negative for H. pylori organisms. C. Duodenum, biopsy: - Normal villous architecture with no specific pathologic change. - Negative for increased intraepithelial lymphocytes. MICROSCOPIC DESCRIPTION Slides are reviewed. All matched controls reacted appropriately. These tests were developed and their performance characteristics determined by [facility]. They may not have been cleared or approved by the U.S. Food and Drug Administration. The FDA has determined that such clearance or approval is not necessary. The above immunohistochemical markers are viewed by the Pathologist. GROSS DESCRIPTION A. Received in fixative is one container labeled with the patient's name and designated Distal esophagus biopsy. The specimen consists of three irregular fragments of jean tissue that measure 0.3 to 0.8 cm. The specimen is totally submitted in one cassette. B. Received in fixative is one container labeled with the patient's name and designated Gastric body biopsy. The specimen consists of four irregular fragments of jean tissue that measure 0.2 to 0.7 cm. The specimen is totally submitted in one cassette. C. Received in fixative is one container labeled with the patient's name and designated Duodenum biopsy. The specimen consists of two irregular fragments of jean tissue that measure 0.3 and 0.4 cm. The specimen is totally submitted in one cassette. ME 09/25/2025 CPT:[id number]
--- NOTE | 2025-09-25 07:58 | PCM.POST.ANE ---
Anesthesia: Postop Eval I Current Vital Signs Temperature: 97.5 F Pulse Rate: 87 Blood Pressure: 100/58 Respiratory Rate: 16 Pulse Ox: 99 Oxygen Delivery Method: Room Air Assessment Airway patent: Yes Spontaneous unlabored respirations: Yes Mental status: Awake and Calm nausea: No Vomiting: No Anesthesia Complication: No Fluid Hydration Crystalloid volume administer (ml): 300 Total IV fluid infused: 300 Progress Note Anesthesia document: Postop Eval 1 completed: Yes
--- NOTE | 2025-09-25 07:58 | POSTOP.ANE_ITS ---
Anesthesia: Postop Eval I
--- NOTE | 2025-09-25 07:59 | OP.EGD_ITS ---
Patient Name: Glenny Jimenez
--- NOTE | 2025-09-25 09:42 | POSTOPAN2_ITS ---
Anesthesia Postop Eval I Sum
--- NOTE | 2025-09-25 09:42 | PCM.POSTANE2 ---
Anesthesia Postop Eval I Sum Postop Eval Completion status Anesthesia document: Postop Eval 1 completed: Yes Anesthesia Postop Eval I Summary Anesthesia Postop Eval I Summary: Anesthesia Postop Eval I: Assessment Summary Airway patent Yes 09/25/25 07:58 [email or web address][email or web address] Spontaneous unlabored Yes 09/25/25 07:58 [employer] respirations Mental status Awake,Calm 09/25/25 07:58 [employer] nausea No 09/25/25 07:58 [employer] Vomiting No 09/25/25 07:58 [employer]GDOTT Anesthesia Postop Eval I: Fluid Summary Crystalloid volume administer 300 09/25/25 07:58 [employer]GDOTT (ml) Colloids volume administered ( ml) Blood Product volume administered (ml) Total IV fluid infused 300 09/25/25 07:58 [employer]GDOTT Anesthesia Postop Eval I: Summary Notes Anesthesia Complication No 09/25/25 07:58 [employer]GDOTT Anesthesia Complication Comment: Post-operative progress note Anesthesia: Postop Eval II Evaluation Mental status: Awake Pain Level: 0 nausea: No Vomiting: No Complications Anesthesia Complication: No
== END 2025-09-25 08:21 | disposition home or self-care (01) ==
LOC: EN 06:43 → AC 06:45
PROVIDERS: Student in an Organized Health Care Education/Training Program; PCP Family Medicine; Referring Provider Family Medicine; Visit Provider Internal Medicine Gastroenterology
PROC: 0DJ08ZZ Inspection of Upper Intestinal Tract, Via Natural or Artificial Opening Endoscopic (ICD-10-PCS; CPT 43235; principal; 2025-09-25 07:40)
DX: K21.00 Gastro-esophageal reflux disease with esophagitis, without bleeding (principal); E11.43 Type 2 diabetes mellitus with diabetic autonomic (poly)neuropathy; F17.210 Nicotine dependence, cigarettes, uncomplicated; I10 Essential (primary) hypertension; K31.84 Gastroparesis; E78.5 Hyperlipidemia, unspecified; Z79.899 Other long term (current) drug therapy; Z79.85 Long-term (current) use of injectable non-insulin antidiabetic drugs; J45.909 Unspecified asthma, uncomplicated
CPT/HCPCS: 44361; 81025; 82962; 88305; 88342; J2405